=== PATIENT | female | born 1990 | race Caucasian/White ===

== ENCOUNTER 2023-06-11 21:01 | Emergency (ER) | payer OTHER, SELFPAY ==
[2023-06-11 21:08] VITALS: BP 151/104
[2023-06-11 21:11] VITALS: BP 151/104
[2023-06-11 21:34] VITALS: BMI 34.3
[2023-06-11] MEDS: BENADRYL 25 MG IV (21:50)
[2023-06-11] MEDS: DILAUDID 2 MG IV (21:50)
--- NOTE | 2023-06-11 22:00 | ED.GENMED ---
History of Present Illness
General
Chief Complaint: Allergic Reaction
Source: patient and family
Time Seen by Provider: 06/11/23 21:57
Travel History
Have you had any contact with someone who has COVID-19?: No
Do you have any symptoms of coronavirus? Fever > 100 degrees, chills, cough, shortness of breath, sore throat, loss of taste or smell, muscle aches, or headache?: No
History of Present Illness
History of Present Illness:
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 Patient has been to the emergency room several times for similar episodes. She is cared for by a
'mast cell' specialist at [facility]. She arrives with a protocol created by her specialist to follow during these periods of exacerbation. Prior to coming to the hospital the patient had taken 2 mg of lorazepam through her GJ tube, she had also
received 2 EpiPen injections.
Past History
Past History
ED Past Medical History: Asthma, GERD, Hypercholesterolemia, Psychiatric (Anxiety), Other (Mast Cell activation Syndrome, neurocardiogenic syncope, Deana Danlos, narcolepsy, dystonia, sleep apnea, chronic vertigo, chronic daily headache, raynauds,
RLS, IBS) and Other (Osteoporosis)
ED Past Surgical History: Tonsilectomy and Urological (kidney biopsy)
Social History
Tobacco: Non-smoker
Alcohol: None
Drug: None
Personal: Single
Living: with family
Employment: Employed
Family History
Family History: Other (Noncontributory); Negative Sudden
Phy Exam
Physical Exam
Physical Exam:
General: Chronically ill-appearing 32-year-old with what appears to be carpopedal spasm and coughing.
Vitals: Tachycardic
Head: Atraumatic
Eyes: Pupils equal, EOMI
Throat: Airway intact, noisy inspiratory effort which sounds to be more likely to be paradoxical false vocal cord movement
Neck: Trachea midline
Lungs: Clear and equal b/l
Heart: Regular rate, no murmurs
Abd: Soft, Nontender, feeding tube in place no pulsatile mass
Neuro: Initially appeared to have carpopedal spasm. Normal neurologic exam on reevaluation after symptoms have improved
Skin: Warm, dry, no rash
Extremities: pulses equal b/l, no edema
Course
Orders/Labs/Results
Orders:
Orders
06/11/23 21:15
EKG [Electrocardiogram (*1)] Urgent
Reason for Study: Tachycardia
EKG- Treatment ONCE
06/11/23 21:37
Lorazepam [Ativan] 2 mg .ROUTE .STK-MED ONE
06/11/23 21:41
Diphenhydramine [Benadryl] 50 mg .ROUTE .STK-MED ONE
HYDROmorphone [Dilaudid] 2 mg .ROUTE .STK-MED ONE
06/11/23 21:50
HYDROmorphone [Dilaudid] 2 mg IV NOW STA
Lorazepam [Ativan] 2 mg IV NOW STA
06/11/23 21:58
Famotidine [Pepcid] 40 mg IV NOW STA
Lactated Ringers [Lr] 500 ml IV BOLUS
MethylPREDNISolone PF [Solu-Medrol Pf] 40 mg IV NOW STA
Ondansetron Injectable [Zofran] 4 mg IV NOW STA
06/11/23 22:21
Diphenhydramine [Benadryl] 25 mg IV NOW STA
06/11/23 22:26
Chest X-ray Portable [CR Chest Portable - 1 View] Urgent
Comment:
Reason For Exam: picc placement
Reason Study Needs to be Portable: Unable to Transport
06/12/23 00:11
Lorazepam [Ativan] 2 mg .ROUTE .STK-MED ONE
Lorazepam [Ativan] 2 mg IV NOW STA
06/12/23 00:13
Diphenhydramine [Benadryl] 25 mg IV NOW STA
06/12/23 00:16
Albuterol Nebs [Ventolin Nebules] 2.5 mg .ROUTE .STK-MED ONE
06/12/23 00:17
Albuterol Nebs [Ventolin Nebules] 2.5 mg INH R NOW STA
06/12/23 00:42
HYDROmorphone [Dilaudid] 2 mg .ROUTE .STK-MED ONE
HYDROmorphone [Dilaudid] 2 mg IV NOW STA
06/12/23 00:43
HYDROmorphone [Dilaudid] 2 mg IV NOW STA
Vital Signs
Initial and Last Documented VS:
Initial Vital Signs
Temp Pulse Resp BP Pulse Ox
99.7 F 138 22 151/104 98
06/11/23 21:08 06/11/23 21:08 06/11/23 21:08 06/11/23 21:08 06/11/23 21:08
Last Documented Vital Signs
Temp Pulse Resp BP Pulse Ox
99.7 F 107 14 130/89 97
06/11/23 21:08 06/12/23 02:30 06/12/23 02:30 06/12/23 02:00 06/11/23 21:47
MDM/Problems Addressed
Differential Diagnosis Includes:
Mast cell activation syndrome, 'dystonia', paradoxical false vocal cord movement
MDM/Problems Addressed:
Patient presents with an episode of noisy breathing, carpopedal spasm, tachycardia which is similar to several previous visits. Patient's symptoms resolved with IV Ativan, Dilaudid and Benadryl. These medications were given based upon a document
provided by the patient from her mast cell doctor
Patient had significant improvement with treatment here. She had a slight recurrence of symptoms prompting another round of meds but then stabilized. She states she feels well enough to go home. She knows her disease well and I trust her opinion
on when she can go home and when she requires hospitalization. Prescription for epi-pen sent to pharmacy. Patient requested we give her EpiPen's to go but the hospital does not stock them. This was verified with pharmacy
Acute Exacerbation and/or Progression of Chronic Illness: Other (mast cell activation syndrome)
*Pulse Oximetry
Patient hypoxic: no (on her chronic oxygen)
*EKG
Interpreted by ED Provider?: Yes
Interpretation: abnormal
Comparison EKG: no changes
Heart Rate: 102
Rate: tachycardiac
Rhythm: sinus tachycardia
QRS Pattern: normal QRS
Ischemia: no ischemia
*Paralegal Instructor Interpretation
Rate: tachycardiac
Rhythm: sinus tachycardia
*Critical Care Note
Total Time (30-74mins, 75-104mins- exclusive of procedures): Not Applicable
Patient Management
Social determinants of health affecting care: Strong social support
Escalation/DeEscalation of care consider admission/obs:
considered hospitalization but pt states she feels well enough to go home. She expressed the understanding that, now that she is feeling better, there is not much they would do if she was transferred to [facility] (which is what the plan would be if
she requires admission).
ED Attending Note
-
Portions of this chart may have been created with voice recognition software.� Occasional wrong word or��sound alike� substitutions may have occurred due to the inherent limitations of voice recognition software.
Discharge Plan
Departure
Patient Disposition: Home (Routine Discharge)
Date of Disposition: 06/11/23
Time of Disposition: 23:15
Patient with high blood pressure during this ER visit?: No
Condition: Good
Discharge Problem:
Dystonia, POTS (postural orthostatic tachycardia syndrome), Mast cell activation syndrome
Instructions: Dystonia
Prescriptions:
New
epinephrine [EpiPen 2-Memo] 0.3 mg/0.3 mL auto-injector
0.3 mg IM Q5-15M PRN (Reason: anaphylaxis) Qty: 2 0RF
No Action
propranolol 10 MG tablet
10 mg feeding tube TID@0600,1400,2200
cetirizine 10 MG tablet
10 mg feeding tube BID@1800,2200
ketotifen fumarate [Zaditor] 1 DROP drops
1 drp BOTH EYES TID
Flonase Sensimist 5.9 ML spray,suspension
2 spray intranasal DAILY@1000
rabeprazole [AcipHex] 20 MG tablet,delayed release (DR/EC)
20 mg PO BID@0930,1730
prednisone 5 MG tablet
10 mg feeding tube BID@1000,1800
diphenhydramine HCl 50 MG/ML solution
25 mg IV Q3HPRN PRN (Reason: mcas reaction/anaphylaxis/dystonia)
budesonide 0.5 MG/2 ML suspension for nebulization
0.5 mg inhalation R BID@999,1999
etonogestrel-ethinyl estradiol [NuvaRing] 1 VAG.RING ring
1 vag.ring VAG MONTHLY
Rx Instructions:
ON THE 29TH DAY OF THE MONTH
famotidine (PF) 20 MG/2 ML solution
40 mg IV Q12H@1000,2200
diphenhydramine HCl 50 MG/ML solution
0 mg IV .CONTINUOUS
Patient Comments:
Per patient she has a benadryl pump 15mg/hr continuously
Rx Instructions:
320ML bag daily, 13MG/HR CONTINUOUS
Solu-Medrol (PF) 40 MG/ML recon soln
60 mg IV PRN PRN (Reason: anaphylaxis, or pre procedure)
cromolyn 20 MG/ML concentrate
200 mg PO .ACHS SEE TIMES BELO
Rx Instructions:
@0930, 1330, 1730, 2130
ferrous sulfate [FeroSul] 325 MG tablet
325 mg PO HS
Nurtec ODT 75 MG tablet,disintegrating
75 mg PO DAILYPRN PRN (Reason: migraine)
thiamine HCl (vitamin B1) 100 mg Tablet
100 mg PO DAILY@1000
acetaminophen 650 mg tablet extended release
1,300 mg PO BID@1000,1800
baclofen 10 mg Tablet
10 mg PO TID@0600,1400,2200
lorazepam 2 mg/mL concentrate
2 mg sublingual Q6H PRN (Reason: dystonia)
Patient Comments:
06/11/2023: last filled 06/06/23, 60ml for 12 days from [id number]
simethicone 80 mg Tablet,Chewable
80 mg PO DAILY
insulin lispro 100 unit/mL insulin pen
0 - 5 sliding scale dose SC AC
Rx Instructions:
Sliding Scale: 70-140= 0, 141-200= 1; 201-250= 2; 251-300= 3; 301-350= 4; >351= 5
imatinib [Gleevec] 100 mg Tablet
300 mg PO DAILY@1400
cholecalciferol (vitamin D3) 50 mcg (2,000 unit) Tablet
50 mcg PO DAILY@1000
fexofenadine 180 mg Tablet
180 mg PO BID@1000,1400
ondansetron 4 mg Tablet,Disintegrating
4 mg PO Q8HPRN PRN (Reason: mild nausea)
carbidopa-levodopa [Sinemet] 25-100 mg Tablet
2 tab feeding tube BID@1400,1800
Rx Instructions:
2pm, 6pm
carbidopa-levodopa [Sinemet] 25-100 mg Tablet
1.5 tab feeding tube BID@0600,1000
Rx Instructions:
6am, 10am
ascorbic acid (vitamin C) [Vitamin C] 1,000 mg Tablet
1,200 mg PO DAILY
epinephrine 0.3 mg/0.3 mL auto-injector
0.3 mg IM PRN PRN (Reason: anaphylaxis)
ondansetron HCl (PF) 4 mg/2 mL Solution
4 mg IV Q8H PRN (Reason: severe nausea/vomiting)
Salt Stick
2 cap feeding tube PRN PRN (Reason: POTS)
Rx Instructions:
500mg Sodium and 100mg Potassium
Nss
1,000 ml IV DAILY
Nss
1,000 ml IV DAILY PRN (Reason: one extra bag daily )
albuterol sulfate 2.5 mg /3 mL (0.083 %) solution for nebulization
2.5 mg inhalation R Q6 PRN (Reason: anaphylaxis)
hydromorphone 8 mg tablet
8 mg PO Q3H PRN (Reason: severe pain)
Patient Comments:
06/11/2023: last filled 05/16/23, 136 tabs for 34 days from [facility]
lorazepam 2 mg/mL concentrate
1 mg sublingual QID@00,06,12,18
simethicone 80 mg Tablet,Chewable
80 mg PO HS PRN (Reason: gas)
enoxaparin 100 mg/mL syringe
90 mg SC BID@1000,2200
buprenorphine HCl 2 mg tablet, sublingual
2 mg SUBLINGUAL QID@00,06,12,18
Patient Comments:
06/11/2023: last filled 05/16/23, 120 tabs for 30 days from [id number]
insulin glargine [Lantus Solostar U-100 Insulin] 100 unit/mL (3 mL) insulin pen
15 unit SC DAILY
calcium citrate-vitamin D3 200 mg-6.25 mcg (250 unit) Tablet
2 tab PO BID@1000,1800
Patient Comments:
06/11/2023: 400mg Calcium, 12.5mcg Vitamin D
Referrals:
Ethan Villanueva MD [Family Provider] -
Interventions
Interventions:
*Risk Screen - Suicide Last Done: 06/11/23 21:08
*General Assessment Last Done: 06/11/23 21:08
*Neglect/Abuse Screening Last Done: 06/11/23 21:08
ED- Fall Risk Assessment Last Done: 06/12/23 02:40
*ED COVID-19 Vaccine History Last Done: 06/11/23 21:08
*Nursing Disposition Last Done: 06/12/23 02:40
ED- Cardiac Assessment Last Done: 06/12/23 00:10
ED- Pulmonary Assessment Last Done: 06/12/23 00:10
ED-Skin Assessment Last Done: 06/12/23 00:10
Discharge Date and Time
Discharge Date/Time: 06/12/23 02:40
[2023-06-11 22:01] VITALS: BP 125/93
[2023-06-11] MEDS: SOLU-MEDROL PF 40 MG IV (22:11)
[2023-06-11] MEDS: ZOFRAN 4 MG IV (22:11)
[2023-06-11] MEDS: LR 500 IV (22:11)
[2023-06-11] MEDS: PEPCID 40 MG IV (22:11)
[2023-06-11] MEDS: ATIVAN 2 MG IV (22:24)
[2023-06-11 23:00] VITALS: BP 128/85
[2023-06-12] MEDS: ATIVAN 2 MG IV (00:12)
[2023-06-12] MEDS: BENADRYL 25 MG IV (00:14)
[2023-06-12] MEDS: VENTOLIN NEBULES 2.5 MG INH (00:17)
[2023-06-12 00:35] VITALS: BP 132/106
[2023-06-12] MEDS: DILAUDID 2 MG IV (00:44)
[2023-06-12 01:00] VITALS: BP 123/78
[2023-06-12 02:00] VITALS: BP 130/89
== END 2023-06-12 02:40 | disposition home or self-care (01) ==
LOC: EMR 21:01
PROVIDERS: EMERGENCY PHYSICIAN Emergency Medicine; FAMILY PHYSICIAN Internal Medicine Hematology & Oncology
DX: G24.9 Dystonia, unspecified (principal); G90.A Postural orthostatic tachycardia syndrome [POTS]; D89.40 Mast cell activation, unspecified
CPT/HCPCS: 99284; 96374; 96375 ×5; 96376 ×3; 94640; 71045; 93005

== ENCOUNTER 2023-06-20 23:55 | Inpatient (IN) | payer OTHER, SELFPAY ==
[2023-06-20 17:33] VITALS: BP 140/104
--- NOTE | 2023-06-20 17:53 | ED.GENMED ---
History of Present Illness
<Mk Spears, DO - Last Filed: 06/20/23 20:57>
General
Chief Complaint: Allergic Reaction
Source: patient
Exam Limitations: none
Time Seen by Provider: 06/20/23 17:45
History of Present Illness
History of Present Illness:
See MDM
Past History
<Mk Spears, DO - Last Filed: 06/20/23 20:57>
Past History
ED Past Medical History: Asthma, GERD, Hypercholesterolemia, Psychiatric (Anxiety), Other (Mast Cell activation Syndrome, neurocardiogenic syncope, Deana Danlos, narcolepsy, dystonia, sleep apnea, chronic vertigo, chronic daily headache, raynauds,
RLS, IBS) and Other (Osteoporosis)
ED Past Surgical History: Tonsilectomy and Urological (kidney biopsy)
Social History
Tobacco: Non-smoker
Alcohol: None
Drug: None
Personal: Single
Living: with family
Employment: Employed
Family History
Family History: Other (Noncontributory); Negative Sudden
Phy Exam
<Mk Spears, DO - Last Filed: 06/20/23 20:57>
Physical Exam
Physical Exam:
See MDM
Course
<Mk Spears, DO - Last Filed: 06/20/23 20:57>
Orders/Labs/Results
Orders:
Orders
06/20/23 17:28
CXR [CR Chest Portable - 1 View] Urgent
Comment:
Reason For Exam: picc line check
Reason Study Needs to be Portable: Unable to Transport
06/20/23 17:50
0.9% Sodium Chloride 1000 ml [Nss] 1,000 ml IV BOLUS
Diphenhydramine [Benadryl] 25 mg IV NOW STA
HYDROmorphone [Dilaudid] 1 mg IV NOW STA
06/20/23 17:56
Complete Blood Count/With Diff Urgent
Comprehensive Metabolic Panel Urgent
06/20/23 18:43
Famotidine [Pepcid] 40 mg IV NOW STA
MethylPREDNISolone PF [Solu-Medrol Pf] 50 mg IV NOW STA
06/20/23 19:27
Diphenhydramine [Benadryl] 50 mg IV NOW STA
Ipratropium/Albuterol Sulfate [Duoneb] 3 ml INH R NOW ONE
Lorazepam [Ativan] 1 mg IV NOW STA
06/20/23 19:46
Ondansetron Injectable [Zofran] 4 mg IV NOW STA
06/20/23 20:14
Diphenhydramine [Benadryl] 50 mg IV Q4HPRN PRN
Lorazepam [Ativan] 1 mg IV Q4HPRN PRN
06/20/23 20:19
Ipratropium/Albuterol Sulfate [Duoneb] 3 ml INH R Q4HPRN PRN
06/21/23 10:00
Famotidine [Pepcid] 40 mg IV Q12
MethylPREDNISolone PF [Solu-Medrol Pf] 50 mg IV Q12H
Abnormal Lab Results
06/20/23
17:56
WBC 19.1 H 10^3/uL
(4.8-10.8)
RBC 3.93 L 10^6/uL
(4.20-5.40)
MCV 100.5 H fL
(81.0-99.0)
MCH 34.6 H pg
(27.0-31.0)
RDW 15.0 H %
(11.5-14.5)
Abs Immat Gran (auto) 1.4 H 10^3/uL
(0-0.05)
Absolute Neuts (auto) 13.0 H 10^3/uL
(1.4-6.5)
Absolute Monos (auto) 1.5 H 10^3/uL
(0.1-0.6)
Immature Gran % 7.5 H %
(0-0.5)
Lymphocytes % 16.1 L %
(20.5-51.1)
Sodium 134 L mmol/L
(135-145)
Carbon Dioxide 20 L mmol/L
(22-30)
Creatinine 0.5 L mg/dL
(0.6-1.0)
Glucose 224 H mg/dl
(70-99)
06/20/23 17:56
06/20/23 17:56
Vital Signs
Initial and Last Documented VS:
Initial Vital Signs
Pulse Resp
124 24
06/20/23 17:28 06/20/23 17:28
Last Documented Vital Signs
Temp Pulse Resp BP Pulse Ox
98.1 F 105 14 140/104 98
06/20/23 20:00 06/20/23 20:45 06/20/23 20:45 06/20/23 18:00 06/20/23 20:45
<Mitul Mcgill, DO - Last Filed: 06/20/23 23:06>
Orders/Labs/Results
Orders:
Orders
06/20/23 17:28
CXR [CR Chest Portable - 1 View] Urgent
Comment:
Reason For Exam: picc line check
Reason Study Needs to be Portable: Unable to Transport
06/20/23 17:50
0.9% Sodium Chloride 1000 ml [Nss] 1,000 ml IV BOLUS
Diphenhydramine [Benadryl] 25 mg IV NOW STA
HYDROmorphone [Dilaudid] 1 mg IV NOW STA
06/20/23 17:56
Complete Blood Count/With Diff Urgent
Comprehensive Metabolic Panel Urgent
06/20/23 18:43
Famotidine [Pepcid] 40 mg IV NOW STA
MethylPREDNISolone PF [Solu-Medrol Pf] 50 mg IV NOW STA
06/20/23 19:27
Diphenhydramine [Benadryl] 50 mg IV NOW STA
Ipratropium/Albuterol Sulfate [Duoneb] 3 ml INH R NOW ONE
Lorazepam [Ativan] 1 mg IV NOW STA
06/20/23 19:46
Ondansetron Injectable [Zofran] 4 mg IV NOW STA
06/20/23 20:14
Diphenhydramine [Benadryl] 50 mg IV Q4HPRN PRN
Lorazepam [Ativan] 1 mg IV Q4HPRN PRN
06/20/23 20:19
Ipratropium/Albuterol Sulfate [Duoneb] 3 ml INH R Q4HPRN PRN
06/21/23 10:00
Famotidine [Pepcid] 40 mg IV Q12
MethylPREDNISolone PF [Solu-Medrol Pf] 50 mg IV Q12H
Abnormal Lab Results
06/20/23
17:56
WBC 19.1 H 10^3/uL
(4.8-10.8)
RBC 3.93 L 10^6/uL
(4.20-5.40)
MCV 100.5 H fL
(81.0-99.0)
MCH 34.6 H pg
(27.0-31.0)
RDW 15.0 H %
(11.5-14.5)
Abs Immat Gran (auto) 1.4 H 10^3/uL
(0-0.05)
Absolute Neuts (auto) 13.0 H 10^3/uL
(1.4-6.5)
Absolute Monos (auto) 1.5 H 10^3/uL
(0.1-0.6)
Immature Gran % 7.5 H %
(0-0.5)
Lymphocytes % 16.1 L %
(20.5-51.1)
Sodium 134 L mmol/L
(135-145)
Carbon Dioxide 20 L mmol/L
(22-30)
Creatinine 0.5 L mg/dL
(0.6-1.0)
Glucose 224 H mg/dl
(70-99)
06/20/23 17:56
06/20/23 17:56
Vital Signs
Initial and Last Documented VS:
Initial Vital Signs
Pulse Resp
124 24
06/20/23 17:28 06/20/23 17:28
Last Documented Vital Signs
Temp Pulse Resp BP Pulse Ox
98.1 F 105 14 140/104 98
06/20/23 20:00 06/20/23 20:45 06/20/23 20:45 06/20/23 18:00 06/20/23 20:45
<Mk Spears, DO - Last Filed: 06/20/23 20:57>
MDM/Problems Addressed
Differential Diagnosis Includes:
HPI and MDM Narrative:
32-year-old female presenting to the emergency department with allergic reaction. Patient states she has mast cell activation syndrome. She states that she is having a flareup and required a total of 4 IM injections of epinephrine today. She was
told to go to the hospital if she ever required more than 2. Patient states her silverware washer Dr. Villanueva is requesting transfer to [facility].
Patient is unsure if this is related to recent decrease in Solu-Medrol. She was started on 60 mg IV Solu-Medrol twice daily. He was recently changed to 50 and then 40 last night.
Physical exam
General: Mildly uncomfortable,
HEENT: protecting airway
Neck: appears supple
CV: No evidence of cyanosis. Tachycardic
Resp: No accessory muscle use
Abd: Non-distended
Extremities: No deformities
Neuro: alert. Intermittent tremors
Psych: Mildly anxious
Skin: Intact
Problems Addressed including Acute and Chronic Conditions affecting care:
1. Mast cell activation syndrome
Acuity: acute
Prognosis: stable
Details: Will discuss care with [facility].
Updates
Patient given an increased dose of Solu-Medrol 50 mg. Will give her routine 40 mg IV famotidine as well
7:28 PM patient developing shortness of breath and wheezing. Will give Ativan, Benadryl and DuoNeb
8:30 PM Case discussed with [place] email campaign manager Dr. Jane who accepted patient but states there will likely not be an ICU bed for 24 hours. She suggested admitting to [facility]
8:45 PM Case discussed with [facility] email campaign manager Dr. Ciro Gómze who accepted patient at the ICU and ultimately will be transferred to [facility]
Differential Diagnosis (but not limited to): Allergic reaction, mast cell activation syndrome
Testing considered: Chest x-ray
Drug therapy (if applicable): OTC meds, please see d/c instruction regarding Rx drugs
Amount and/or Complexity of Data Reviewed
Clinical info obtained from: Patient and mother
External data reviewed: N/A
Labs I independently reviewed (but not limited to): Leukocytosis and hyperglycemia likely related to steroids
Radiology: N/A
Pulse Ox: not hypoxic
EKG independently reviewed: N/A
Car Parker: Sinus rhythm
Critical Care: The high probability of a clinically significant, sudden or life threatening deterioration of the cardiopulmonary system(s) required my full and direct attention, intervention and personal management. The aggregate critical care time
was 33 minutes. This time is in addition to time spent performing reported procedures but includes the following:
[x] Data Review and interpretation
[x] Patient assessment and monitoring of vital signs
[x] Documentation
[x] Medication orders and management
Risk of Complication:
Social Determinants of health: Good social support
Discussed with other providers: Weight Checker
Escalation of Care includes Admit/Obs: Given her uncontrolled Pau activation syndrome, will transfer
Occasional wrong word or 'sound a like' substitutions may have occurred due to the inherent limitations of voice recognition software. Read the chart carefully and recognize, using context, where substitutions have occurred.
<Mk Spears, DO - Last Filed: 06/20/23 20:57>
*Critical Care Note
Total Time (30-74mins, 75-104mins- exclusive of procedures): 33 min
<Mitul Mcgill, DO - Last Filed: 06/20/23 23:06>
Update Note
Update Note:
Received a call from [facility] and they are unable to take the patient until tomorrow. Patient will be admitted here.
ED Attending Note
<Mk Spears, DO - Last Filed: 06/20/23 20:57>
-
Portions of this chart may have been created with voice recognition software.� Occasional wrong word or��sound alike� substitutions may have occurred due to the inherent limitations of voice recognition software.
Discharge Plan
Departure
Patient Disposition: Home (Routine Discharge)
Date of Disposition: 06/20/23
Time of Disposition: 20:56
Admit to: ICU
Admit to doctor: Hospitalist
Patient with high blood pressure during this ER visit?: Yes
Condition: Serious
Covid-19: Not Applicable
Discharge Problem:
Mast cell activation syndrome
Prescriptions:
No Action
propranolol 10 MG tablet
10 mg feeding tube TID@0600,1400,2200
cetirizine 10 MG tablet
10 mg feeding tube BID@1800,2200
ketotifen fumarate [Zaditor] 1 DROP drops
1 drp BOTH EYES TID
Flonase Sensimist 5.9 ML spray,suspension
2 spray intranasal DAILY@1000
rabeprazole [AcipHex] 20 MG tablet,delayed release (DR/EC)
20 mg PO BID@0930,1730
prednisone 5 MG tablet
10 mg feeding tube BID@1000,1800
diphenhydramine HCl 50 MG/ML solution
25 mg IV Q3HPRN PRN (Reason: mcas reaction/anaphylaxis/dystonia)
budesonide 0.5 MG/2 ML suspension for nebulization
0.5 mg inhalation R BID@999,1999
etonogestrel-ethinyl estradiol [NuvaRing] 1 VAG.RING ring
1 vag.ring VAG MONTHLY
Rx Instructions:
ON THE 29TH DAY OF THE MONTH
famotidine (PF) 20 MG/2 ML solution
40 mg IV Q12H@1000,2200
diphenhydramine HCl 50 MG/ML solution
0 mg IV .CONTINUOUS
Patient Comments:
Per patient she has a benadryl pump 15mg/hr continuously
Rx Instructions:
320ML bag daily, 13MG/HR CONTINUOUS
Solu-Medrol (PF) 40 MG/ML recon soln
60 mg IV PRN PRN (Reason: anaphylaxis, or pre procedure)
cromolyn 20 MG/ML concentrate
200 mg PO .ACHS SEE TIMES BELO
Rx Instructions:
@0930, 1330, 1730, 0
ferrous sulfate [FeroSul] 325 MG tablet
325 mg PO HS
Nurtec ODT 75 MG tablet,disintegrating
75 mg PO DAILYPRN PRN (Reason: migraine)
thiamine HCl (vitamin B1) 100 mg Tablet
100 mg PO DAILY@1000
acetaminophen 650 mg tablet extended release
1,300 mg PO BID@1000,1800
baclofen 10 mg Tablet
10 mg PO TID@0600,1400,2200
lorazepam 2 mg/mL concentrate
2 mg sublingual Q6H PRN (Reason: dystonia)
Patient Comments:
06/11/2023: last filled 06/06/23, 60ml for 12 days from [id number]
simethicone 80 mg Tablet,Chewable
80 mg PO DAILY
insulin lispro 100 unit/mL insulin pen
0 - 5 sliding scale dose SC AC
Rx Instructions:
Sliding Scale: 70-140= 0, 141-200= 1; 201-250= 2; 251-300= 3; 301-350= 4; >351= 5
imatinib [Gleevec] 100 mg Tablet
300 mg PO DAILY@1400
cholecalciferol (vitamin D3) 50 mcg (2,000 unit) Tablet
50 mcg PO DAILY@1000
fexofenadine 180 mg Tablet
180 mg PO BID@1000,1400
ondansetron 4 mg Tablet,Disintegrating
4 mg PO Q8HPRN PRN (Reason: mild nausea)
carbidopa-levodopa [Sinemet] 25-100 mg Tablet
2 tab feeding tube BID@1400,1800
Rx Instructions:
2pm, 6pm
carbidopa-levodopa [Sinemet] 25-100 mg Tablet
1.5 tab feeding tube BID@0600,1000
Rx Instructions:
6am, 10am
ascorbic acid (vitamin C) [Vitamin C] 1,000 mg Tablet
1,200 mg PO DAILY
epinephrine 0.3 mg/0.3 mL auto-injector
0.3 mg IM PRN PRN (Reason: anaphylaxis)
ondansetron HCl (PF) 4 mg/2 mL Solution
4 mg IV Q8H PRN (Reason: severe nausea/vomiting)
Salt Stick
2 cap feeding tube PRN PRN (Reason: POTS)
Rx Instructions:
500mg Sodium and 100mg Potassium
Nss
1,000 ml IV DAILY
Nss
1,000 ml IV DAILY PRN (Reason: one extra bag daily )
albuterol sulfate 2.5 mg /3 mL (0.083 %) solution for nebulization
2.5 mg inhalation R Q6 PRN (Reason: anaphylaxis)
hydromorphone 8 mg tablet
8 mg PO Q3H PRN (Reason: severe pain)
Patient Comments:
06/11/2023: last filled 05/16/23, 136 tabs for 34 days from [facility]
lorazepam 2 mg/mL concentrate
1 mg sublingual QID@00,06,12,18
simethicone 80 mg Tablet,Chewable
80 mg PO HS PRN (Reason: gas)
enoxaparin 100 mg/mL syringe
90 mg SC BID@1000,2200
buprenorphine HCl 2 mg tablet, sublingual
2 mg SUBLINGUAL QID@00,06,12,18
Patient Comments:
06/11/2023: last filled 05/16/23, 120 tabs for 30 days from [id number]
insulin glargine [Lantus Solostar U-100 Insulin] 100 unit/mL (3 mL) insulin pen
15 unit SC DAILY
calcium citrate-vitamin D3 200 mg-6.25 mcg (250 unit) Tablet
2 tab PO BID@1000,1800
Patient Comments:
06/11/2023: 400mg Calcium, 12.5mcg Vitamin D
epinephrine [EpiPen 2-Memo] 0.3 mg/0.3 mL auto-injector
0.3 mg IM Q5-15M PRN (Reason: anaphylaxis) Qty: 2 0RF
Referrals:
Shannan Mendoza DO [Family Provider] -
Hospital Transfer
Other hospital: [facility]
I certify that the patient requires transfer: Yes
Discussed case with accepting physician: Dr. Souza
Reason for transfer: higher level of care
Interventions
Interventions:
*Risk Screen - Suicide Last Done: 06/20/23 18:17
*General Assessment Last Done: 06/20/23 18:00
*Neglect/Abuse Screening Last Done: 06/20/23 18:00
ED- Fall Risk Assessment Last Done: 06/20/23 19:30
*ED COVID-19 Vaccine History Last Done: 06/20/23 21:21
ED- Cardiac Assessment Last Done: 06/20/23 19:30
ED- Pulmonary Assessment Last Done: 06/20/23 19:30
ED-Skin Assessment Last Done: 06/20/23 19:30
[2023-06-20 18:00] VITALS: BP 140/104
[2023-06-20] MEDS: BENADRYL 25 MG IV (18:00)
[2023-06-20] MEDS: DILAUDID 1 MG IV (18:01)
[2023-06-20 18:02] LABS: % Basophils 0.5 % (0-2); % Immature Granulocytes 7.5 % (0-0.5); % Lymphocytes 16.1 % (20.5-51.1); % Monocytes 7.7 % (1.7-9.3); % Neutrophils 68.2 % (42.2-75.2); Absolute Basophils 0.1 10^3/uL (0-0.2); Absolute Immature Granulocytes 1.4 10^3/uL (0-0.05); Absolute Lymphocytes 3.1 10^3/uL (1.2-3.4); Absolute Monocytes 1.5 10^3/uL (0.1-0.6); Hematocrit 39.5 % (37.0-47.0); Hemoglobin 13.6 g/dL (12.0-16.0); Mean Corp Hgb Conc. 34.4 g/dL (33.0-37.0); Mean Corpuscular Hgb 34.6 pg (27.0-31.0); Mean Corpuscular Volume 100.5 fL (81.0-99.0); Mean Platelet Volume 9.4 fL (7.4-10.4); Nucleated Red Blood Cells % 0.1 %; Platelet Count 364 10^3/uL (130-400); Red Blood Cell Count 3.93 10^6/uL (4.20-5.40); White Blood Cell Count 19.1 10^3/uL (4.8-10.8)
[2023-06-20] MEDS: NSS 1000 IV (18:05)
[2023-06-20 18:22] LABS: ALT (SGPT) 23 U/L (0-35); AST (SGOT) 26 U/L (14-36); Albumin 4.3 g/dl (3.5-5.0); Alkaline Phosphatase 74 U/L (38-126); Blood Urea Nitrogen 12 mg/dl (7-17); Calcium 9.2 mg/dl (8.4-10.2); Carbon Dioxide 20 mmol/L (22-30); Chloride 103 mmol/L (98-107); Glucose 224 mg/dl (70-99); Potassium 4.9 mmol/L (3.5-5.1); Sodium 134 mmol/L (135-145); Total Bilirubin 0.5 mg/dl (0.2-1.3); Total Protein 6.9 g/dl (6.3-8.2); eGFR > 60.00
[2023-06-20] MEDS: PEPCID 40 MG IV (19:21)
[2023-06-20] MEDS: SOLU-MEDROL PF 50 MG IV (19:22)
[2023-06-20] MEDS: ATIVAN 1 MG IV (19:35)
[2023-06-20] MEDS: BENADRYL 50 MG IV (19:35)
[2023-06-20] MEDS: DUONEB 3 ML INH (19:36)
[2023-06-20] MEDS: ZOFRAN 4 MG IV (19:53)
[2023-06-20 20:51] VITALS: BMI 35.8
[2023-06-20 21:22] VITALS: BP 140/83
[2023-06-20 22:00] VITALS: BP 126/102
[2023-06-20 23:00] VITALS: BP 137/84
[2023-06-21] VITALS (17 sets, daily range): BP systolic 126–165; BP diastolic 76–114; BMI 33.1
--- NOTE | 2023-06-21 00:08 | HPS.HSE ---
Family Physician
-
Family Physician: Tari Mendoza,
Chief Complaint
-
mast cell
History of Present Illness
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
Syndrome, GERD, Migraine Headaches presenting with mast cell flare. Patient recently had a grandparent and she has been weaned off of her fentanyl patch which caused her to have a flareup. Her symptoms usually include dizziness,
headache, seizure-like activity, vomiting, shortness of breath and feeling like her throat is closing up. She has been taking epinephrine over the past few weeks. She required 4 IM injections of epinephrine today. She was told to go to the
hospital if you require more than 2. She has recently been treated with prednisone and was on 60 mg for this flare but has been weaning down to 40 mg last night.
Patient eats food orally and does not require tube feeds.
She is scheduled to have GJ tube replaced in a few days.
Her electronics utility worker Dr. Villanueva at [place] is requesting transfer to [facility].
Patient denies smoking alcohol or marijuana.
Medical History
Past Medical History
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
Syndrome, GERD, Migraine Headache)
Past Surgical History: Reports None
Social History
Tobacco: Non-smoker
Alcohol: None
Drug: None
Family History
Family History: Not pertinent
Allergies / Home Medications
Allergies reflects when Allergies were last updated in [employer].
Home Medications with original date entered in [employer]
Allergy/Medication List:
Allergies
Allergy/AdvReac Type Severity Reaction Status Date / Time
dog dander Allergy Unknown Verified 06/11/23 21:07
escitalopram [From Lexapro] Allergy Unknown Verified 06/11/23 21:07
gabapentin Allergy Unknown Verified 06/11/23 21:07
gluten Allergy Unknown Verified 06/11/23 21:07
grass pollen Allergy Unknown Verified 06/11/23 21:07
house dust Allergy Unknown Verified 06/11/23 21:07
ibuprofen Allergy 'not Verified 06/11/23 21:07
supposed
to take
d/t
proteinuria'
lactose Allergy Nausea / Verified 06/11/23 21:07
Vomiting
lamotrigine [From Lamictal] Allergy Unknown Verified 06/11/23 21:07
mold Allergy Unknown Verified 06/11/23 21:07
montelukast [From Singulair] Allergy Unknown Verified 06/11/23 21:07
nortriptyline Allergy Tachycardia Verified 06/11/23 21:07
peanut Allergy Anaphylaxis Verified 06/11/23 21:07
soy Allergy Unknown Verified 06/11/23 21:07
topiramate [From Topamax] Allergy Unknown Verified 06/11/23 21:07
tree and shrub pollen Allergy Unknown Verified 06/11/23 21:07
weed pollen Allergy Unknown Verified 06/11/23 21:07
Home Medications
propranolol 10 mg tablet 10 mg feeding tube TID@0600,1400,2200 Heart disease/condition 04/16/15
cetirizine 10 mg tablet 10 mg feeding tube BID@1800,2200 Allergies 11/03/20
fluticasone furoate 27.5 mcg/actuation nasal spray,suspension (Flonase Sensimist) 2 spray intranasal DAILY@1000 Allergies 11/03/20
ketotifen fumarate 0.025 % (0.035 %) eye drops (Zaditor) 1 drp BOTH EYES TID Eye condition 11/03/20
budesonide 0.5 mg/2 mL suspension for nebulization 0.5 mg inhalation R BID@1000,2000 Lung/breathing issues 09/27/21
diphenhydramine HCl 50 mg/mL injection solution 0 mg IV .CONTINUOUS Allergies 09/27/21
diphenhydramine HCl 50 mg/mL injection solution 25 mg IV Q3HPRN PRN mcas reaction/anaphylaxis/dystonia 09/27/21
etonogestrel 0.12 mg-ethinyl estradiol 0.015 mg/24 hr vaginal ring (NuvaRing) 1 vag.ring VAG MONTHLY Hormonal agent 09/27/21
famotidine (PF) 20 mg/2 mL intravenous solution 40 mg IV Q12H@1000,2200 Gastrointestinal issue 09/27/21
methylprednisolone sod suc(PF) 40 mg/mL solution for injection (Solu-Medrol (PF)) 60 mg IV PRN PRN anaphylaxis, or pre procedure 09/27/21
prednisone 5 mg tablet 10 mg feeding tube BID@1000,1800 Anti-inflammatory 09/27/21
rabeprazole 20 mg tablet,delayed release (AcipHex) 20 mg PO BID@0930,1730 Gastrointestinal issue 09/27/21
cromolyn 100 mg/5 mL oral concentrate 200 mg PO .ACHS SEE TIMES BELO FOOD ALLERGIES 10/02/21
ferrous sulfate 325 mg (65 mg iron) tablet (FeroSul) 325 mg PO HS Supplement 10/02/21
rimegepant 75 mg disintegrating tablet (Nurtec ODT) 75 mg PO DAILYPRN PRN migraine 10/02/21
acetaminophen 650 mg tablet,extended release 1,300 mg PO BID@1000,1800 Pain 05/13/22
baclofen 10 mg tablet 10 mg PO TID@0600,1400,2200 Muscle Spasms 05/13/22
cholecalciferol (vitamin D3) 50 mcg (2,000 unit) tablet 50 mcg PO DAILY@1000 Supplement 05/13/22
imatinib 100 mg tablet (Gleevec) 300 mg PO DAILY@1400 Cancer 05/13/22
insulin lispro 100 unit/mL subcutaneous pen 0 - 5 sliding scale dose SC AC Diabetes 05/13/22
lorazepam 2 mg/mL oral concentrate 2 mg sublingual Q6H PRN dystonia 05/13/22
simethicone 80 mg chewable tablet 80 mg PO DAILY 12/26/22
thiamine HCl (vitamin B1) 100 mg tablet 100 mg PO DAILY@1000 Supplement 05/13/22
fexofenadine 180 mg tablet 180 mg PO BID@1000,1400 Allergies 06/18/22
carbidopa 25 mg-levodopa 100 mg tablet (Sinemet) 1.5 tab feeding tube BID@0600,1000 DYSTONIA 08/17/22
carbidopa 25 mg-levodopa 100 mg tablet (Sinemet) 2 tab feeding tube BID@1400,1800 DYSTONIA 08/17/22
ondansetron 4 mg disintegrating tablet 4 mg PO Q8HPRN PRN mild nausea 08/17/22
Salt Stick 2 cap feeding tube PRN PRN POTS 02/11/23
ascorbic acid (vitamin C) 1,000 mg tablet (Vitamin C) 1,200 mg PO DAILY Supplement 02/11/23
epinephrine 0.3 mg/0.3 mL injection, auto-injector 0.3 mg IM PRN PRN anaphylaxis 02/11/23
ondansetron HCl (PF) 4 mg/2 mL injection solution 4 mg IV Q8H PRN severe nausea/vomiting 02/11/23
Nss 1,000 ml IV DAILY 10am 03/24/23
Nss 1,000 ml IV DAILY PRN one extra bag daily 03/24/23
albuterol sulfate 2.5 mg/3 mL (0.083 %) solution for nebulization 2.5 mg inhalation R Q6 PRN anaphylaxis 06/11/23
buprenorphine HCl 2 mg sublingual tablet 2 mg sublingual QID@00,06,12,18 06/11/23
calcium citrate 200 mg calcium-vitamin D3 6.25 mcg (250 unit) tablet 2 tab PO BID@1000,1800 06/11/23
enoxaparin 100 mg/mL subcutaneous syringe 90 mg SC BID@1000,2200 06/11/23
epinephrine 0.3 mg/0.3 mL injection, auto-injector (EpiPen 2-Memo) 0.3 mg (0.3 mL) IM Q5-15M PRN anaphylaxis #2 ea 06/11/23
hydromorphone 8 mg tablet 8 mg PO Q3H PRN severe pain 06/11/23
insulin glargine 100 unit/mL (3 mL) subcutaneous pen (Lantus Solostar U-100 Insulin) 15 unit SC DAILY 06/11/23
lorazepam 2 mg/mL oral concentrate 1 mg sublingual QID@00,06,12,18 06/11/23
simethicone 80 mg chewable tablet 80 mg PO HS PRN gas 06/11/23
Review of Systems
-
History Source: Patient
A 12 point ROS was completed and negative except as noted: No
Constitutional: Reports No Symptoms and See HPI
EENT: Reports See HPI
Respiratory: Reports See HPI
Cardiac: Reports See HPI
Abdomen/GI: Reports See HPI
: Reports See HPI
Musculoskeletal: Reports See HPI
Skin: Reports See HPI
Neurological: Reports See HPI
Endocrine: Reports See HPI
Hematologic/Lymphatic: Reports See HPI
Psych: Reports See HPI
Physical Exam
Vital Signs
Vital Signs
Temp Pulse Resp BP Pulse Ox
98.1 F 105 14 140/104 98
06/20/23 20:00 06/20/23 20:45 06/20/23 20:45 06/20/23 18:00 06/20/23 20:45
Physical Exam
General: Well Developed, Well Nourished and No Apparent Distress
HEENT: NormoCephalic, Moist mucous membranes and Atraumatic
Respiratory: Clear
Cardiac: S1/S2 and Regular Rhythm; No Murmur or Rub
GI: Soft, Non Tender, Non Distended and Normal Bowel Sounds; No Organomegaly
Rectal: Deferred by Provider
Musculoskeletal: No Clubbing, No Cyanosis and No Edema
Skin: No Rash
Neuro: Nonfocal/grossly intact
Laboratory Results
-
06/20/23 17:56
06/20/23 17:56
Laboratory Results
Total Bilirubin 0.5 mg/dl (0.2-1.3) 06/20/23 17:56
AST 26 U/L (14-36) 06/20/23 17:56
ALT 23 U/L (0-35) 06/20/23 17:56
Alkaline Phosphatase 74 U/L (38-126) 06/20/23 17:56
Data Reviewed
-
Lab Data: Labs Reviewed by me
Old Records: Reviewed
Impression/Plan
-
IMPRESSION:
PLAN:
Mast Cell Activation Syndrome flare
DOPA-Responsive Dystonia
Recurrent Anaphylaxis / Mast Cell Flare Episodes
-Patient feeling significantly better now after treatment with DuoNebs, Ativan/Benadryl, Dilaudid, methylprednisolone, Pepcid
- Admit to IMU for further evaluation and treatment.
- Continue maintenance medications including standing Ativan / Benadryl (pump), etc.
- Continue IV steroids for now, methylprednisolone 50 every 12, as needed DuoNebs
- Continue IV breakthrough medications for control of acute symptoms including IV Ativan, Benadryl, Pepcid, and Dilaudid.
- IV fluids
- Continue majority of usual outpatient medications including Gleevec, antihistamines, buprenorphine etc.
- Continue carbidopa-levodopa for dystonia
-Patient to be transferred to [place] ICU in the morning with eventual transfer for [place]
POTS disease
-Continue propranolol
Chronic Nausea / Esophageal Dysmotility
- Stable. Patient notes that she has been able to tolerate PO meals / some meds of late.
- Continue diet as tolerated.
- Continue G-tube to gravity for chronic nausea.
- Meds via J-tube.
- She is scheduled to have GJ tube exchange within a few days
Steroid-Induced DM-II
- Stable. Continue basal insulin Lantus 15 units and ISS
- Adjust regimen for adequate control - especially while on IV steroids.
Steroid-Induced Osteoporosis
Chronic Pain Syndrome secondary to the above
- IV Dilaudid PRN.
- Follow-up with usual system support specialist after discharge.
History of DVT / PE
DVT Prophylaxis
- Continue BID / therapeutic dose Lovenox
Migraine history
-Continue Nurtec
Code Status: Full
DVT ppx- lovenox
Regular diet
[2023-06-21] MEDS: DILAUDID 0.5 MG IV ×5 (00:49→16:31)
[2023-06-21] MEDS: ATIVAN 1 MG IV ×5 (00:49→21:27)
[2023-06-21] MEDS: DUONEB 3 ML INH ×4 (00:56→21:42)
[2023-06-21] MEDS: BENADRYL 25 MG IV ×5 (01:12→21:26)
[2023-06-21] MEDS: NSS 1000 IV ×3 (02:36→21:36)
--- NOTE | 2023-06-21 04:26 | PTCARENOTE ---
Assumed care of Pt from ED RN. Pt AAOx3, very talkative and appeared in good spirits. Pt arrived with neck brace and back/chest brace on. Transferred over to bed, Pt stating she can take the braces off when laying in bed. Pt made RN aware of
seriousness of having her PRN medication Benadryl,Ativan and Dilaudid more then Q4 PRN. Pt made RN aware of 0.5ml of Ativan she brought from home, 2 RN witnessed waste, this RN and Mimi Armenta. During shift Pt had episode of shaking with eyes
rolling back and harsh coughing while asking for her Benadryl and Ativan. Night MANAGER CASH made aware, now order for Benadryl added. After administering pt still having shaking and harsh cough Pt asked for Dilaudid for back pain along with a breathing
treatment. After administered of all Pt appears now to be resting comfortably in bed, emotional support given. Call sanchez within reach. Assessment care and vitals as documented.
[2023-06-21] MEDS: INDERAL 10 MG TUBE ×3 (06:04→21:09)
[2023-06-21] MEDS: LIORESAL 10 MG PO ×3 (06:04→21:09)
[2023-06-21] MEDS: SINEMET 25-100 1.5 TABLET TUBE ×2 (06:04→09:09)
[2023-06-21] MEDS: SOLU-MEDROL PF 50 MG IV ×2 (06:05→17:38)
[2023-06-21] MEDS: ATIVAN 1 MG SL ×3 (06:25→18:19)
[2023-06-21] MEDS: SUBUTEX 2 MG SL ×3 (06:26→18:19)
[2023-06-21 06:31] LABS: % Basophils 0.4 % (0-2); % Immature Granulocytes 5.9 % (0-0.5); % Lymphocytes 16.8 % (20.5-51.1); % Monocytes 8.8 % (1.7-9.3); % Neutrophils 68.1 % (42.2-75.2); Absolute Basophils 0.1 10^3/uL (0-0.2); Absolute Immature Granulocytes 0.9 10^3/uL (0-0.05); Absolute Lymphocytes 2.6 10^3/uL (1.2-3.4); Absolute Monocytes 1.4 10^3/uL (0.1-0.6); Absolute Neutrophils 10.7 10^3/uL (1.4-6.5); Hematocrit 38.6 % (37.0-47.0); Hemoglobin 12.5 g/dL (12.0-16.0); Mean Corp Hgb Conc. 32.4 g/dL (33.0-37.0); Mean Corpuscular Hgb 33.5 pg (27.0-31.0); Mean Corpuscular Volume 103.5 fL (81.0-99.0); Mean Platelet Volume 9.2 fL (7.4-10.4); Nucleated Red Blood Cells % 0 %; Platelet Count 257 10^3/uL (130-400); Red Blood Cell Count 3.73 10^6/uL (4.20-5.40); White Blood Cell Count 15.7 10^3/uL (4.8-10.8)
[2023-06-21 06:59] LABS: ALT (SGPT) 30 U/L (0-35); AST (SGOT) 25 U/L (14-36); Alkaline Phosphatase 60 U/L (38-126); Blood Urea Nitrogen 15 mg/dl (7-17); Calcium 9.3 mg/dl (8.4-10.2); Carbon Dioxide 31 mmol/L (22-30); Chloride 100 mmol/L (98-107); Estimated Creatinine Clearance > 125 ml/min; Glucose 136 mg/dl (70-99); Potassium 4.5 mmol/L (3.5-5.1); Sodium 136 mmol/L (135-145); Total Bilirubin 0.5 mg/dl (0.2-1.3); Total Protein 6.4 g/dl (6.3-8.2); eGFR > 60.00
[2023-06-21 07:51] LABS: Glucose - Point of Care 175 mg/dl (70-99)
[2023-06-21] MEDS: NOVOLOG FLEXPEN 5 UNITS SC (09:03)
[2023-06-21] MEDS: MYLICON 80 MG PO (09:04)
[2023-06-21] MEDS: LANTUS 0.149999999999999994 UNITS SC (09:04)
[2023-06-21] MEDS: ZADITOR 1 DROP OPHTH ×3 (09:04→21:14)
[2023-06-21] MEDS: NOVOLOG FLEXPEN-LOW RESISTANCE 1 UNITS SC (09:05)
[2023-06-21] MEDS: VITAMIN D3 (cholecalciferol) 50 MCG PO (09:08)
[2023-06-21] MEDS: VITAMIN B1 100 MG PO (09:09)
[2023-06-21] MEDS: NSS (PRESERVATIVE FREE) 16 ML IV ×2 (09:10→21:18)
[2023-06-21] MEDS: OSCAL 500 + D 500 MG PO ×2 (09:10→18:19)
[2023-06-21] MEDS: PEPCID 40 MG IV ×2 (09:10→21:10)
[2023-06-21] MEDS: LOVENOX 90 MG SC ×2 (09:11→21:09)
--- NOTE | 2023-06-21 09:11 | W.PN.HOSP.TC ---
Addendum entered and electronically signed by Dani Duran MD 06/21/23 14:27:
Received call from [facility]. Bed not available at [facility] or [facility]. Transfer center said they would look for other appropriate beds within their system.
Original Note:
Today's Communication/Plan
-
Stable. Awaiting transfer to another hospital.
Assessment / Plan
Assessment / Plan
32-year-old female past medical history of:
Mast Cell Activation Syndrome,
POTS,
DOPA-sensitive Dystonia,
History of DVT and PE,
Steroid-Induced Diabetes Mellitus Type II,
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
Chronic Pain Syndrome,
GERD,
Migraine Headaches
presents with a mast cell flare.� Awaiting transfer to another hospital. Her statistical geneticist Dr. Villanueva at [place] is requesting transfer to [facility].
1. Mast Cell Activation Syndrome flare, with DOPA-Responsive Dystonia, Recurrent Anaphylaxis / Mast Cell Flare Episodes
She is feeling better after treatment with DuoNebs, Ativan/Benadryl, Dilaudid, methylprednisolone, Pepcid
- Continue maintenance medications including standing Ativan / Benadryl (pump), etc.
- Continue IV steroids methylprednisolone 50 every 12, as needed DuoNebs
- Continue IV breakthrough medications for control of acute symptoms including IV Ativan, Benadryl, Pepcid, and Dilaudid.
-� IV fluids
- Continue usual outpatient medications
- Continue carbidopa-levodopa for dystonia
-Patient to be transferred to another hospital when bed available
2. POTS disease
-Continue propranolol
3. Chronic Nausea / Esophageal Dysmotility- Stable.� PO meals
- Continue diet as tolerated.
- Continue G-tube to gravity for chronic nausea.
- Meds via J-tube.
- She is scheduled to have GJ tube exchange within a few days
4. Steroid-Induced DM-II
- Stable.� Continue basal insulin Lantus 15 units at meals and ISS
- Adjust regimen for adequate control
5. Steroid-Induced Osteoporosis wih Chronic Pain Syndrome secondary to it
- IV Dilaudid PRN.
- Follow-up with usual [place] [facility] [place] specialist after discharge.
6. History of DVT / PE complicating DVT Prophylaxis
- Continue BID / therapeutic dose Lovenox
7. Migraine history, Chronic
-Continue Nurtec
Code Status:� Full
DVT ppx- lovenox
Regular diet
Anticipated Discharge: Within 24 hours
Subjective/Interval History
-
Date of Service: June 21, 2023
No new issues, feels OK this am.
Objective Data
-
Labs:
Laboratory Results
06/21/23
06:25
WBC 15.7 H
Hgb 12.5
Hct 38.6
Plt Count 257 D
Sodium 136
Potassium 4.5
Chloride 100
Carbon Dioxide 31 H
BUN 15
Creatinine 0.4 L
Glucose 136 H
Calcium 9.3
Total Bilirubin 0.5
AST 25
ALT 30
Alkaline Phosphatase 60
Vital Signs:
Vital Signs
Temp Pulse Resp BP Pulse Ox
97.6 F 88 20 126/76 97
06/21/23 07:37 06/21/23 07:55 06/21/23 07:55 06/21/23 06:04 06/21/23 07:55
I&O
06/20/23 06/21/23 06/22/23
06:59 06:59 06:59
Intake Total 5840 / 5840
Output Total 1000 / 1000
Balance 4840 / 4840
Review of Systems
-
History Source: Patient
All other systems: Reviewed and negative
Physical Exam
-
General: Well Developed, Well Nourished, No Apparent Distress and Obese
HEENT: Nose Appears Normal and Ears Appear Normal
Respiratory: Clear to Auscultation
Cardiac: Regular Rhythm and Tachycardic
GI: Soft, Nontender and Nondistended
Musculoskeletal: No Clubbing, No Cyanosis and No Edema
Skin: Warm and Dry; Negative Rash or Ulcers
Neuro: Awake, Alert, Oriented and AO x 3
Psych: Calm
Data Reviewed
-
Labs: Labs Reviewed by me
--- NOTE | 2023-06-21 09:40 | CM ---
Addendum entered by Amada Penn 06/21/23 15:38:
Patient seen bedside.
IA completed.
patient lives with her stepdad and mom.
2 story home with a makeshift ramp and 1st floor set up.
Patient has: hospital bed, rollator, raised toilet set, commode. standing form walker, 2 wheelchairs, IV poles, oxygen, nebulizer, CPAP, IV poles. Her custom WC does not fit anymore due to wt gain with medications.
Patient stated she has a script for a power WC.
Per patient she is current with [facility] for 09/12 care, however they are currently short staffed and her mother helps out.
Per patient she does not qualify for additional services such as PT/OT.
Patient is also current with [facility] for IV meds.
Per patient she usually goes to [facility] and is possible for transfer to [place].
PCP: Dr Mendoza
Pharmacy: [facility].
Plan: Possible [place] transfer, await acceptance and bed.
Original Note:
TC from floor re transfer time.
Spoke with [facility], admission on hold for administrative review, they will notify when bed available or for additional information.
[2023-06-21 11:03] LABS: Glycohemoglobin (HgbA1c) 6.6 % (4.0-5.6)
[2023-06-21] MEDS: HYDREA 500 MG PO (11:12)
[2023-06-21] MEDS: NON-FORMULARY ITEM 360 IV (11:47)
[2023-06-21] MEDS: NON-FORMULARY ITEM 2 SPRAY NASAL (12:20)
[2023-06-21] MEDS: NOVOLOG FLEXPEN-LOW RESISTANCE SC ×2 (12:29→17:43)
[2023-06-21 12:44] LABS: Glucose - Point of Care 129 mg/dl (70-99)
[2023-06-21] MEDS: SINEMET 25-100 2 TABLET TUBE ×2 (15:05→17:00)
[2023-06-21] MEDS: NON-FORMULARY ITEM 300 MG PO (15:06)
[2023-06-21] MEDS: NON-FORMULARY ITEM 20 MG PO ×2 (15:07→17:01)
[2023-06-21] MEDS: NON-FORMULARY ITEM 180 MG PO (15:08)
[2023-06-21] MEDS: ADRENALIN 0.299999999999999989 MG IM ×2 (16:28→16:34)
[2023-06-21] MEDS: ZOFRAN 4 MG IV (16:50)
[2023-06-21] MEDS: TYLENOL 975 MG PO (16:57)
--- NOTE | 2023-06-21 16:59 | RR ---
Called to room by patient to report that she felt an 'aura' and is concerned she may have a episode of dystonia. Acquired Ativan and Benadryl and Pt began with dystonia episode. Pt arms contracted with eye deviation and mild tremor; Pt able to
respond to a certain extent during episode. Ativan and Benadryl x 2 given, with no change. Epi 0.3 IM given x 3 with no effect - Rapid called. A Rapid Response was called on this patient, please see Rapid Response form.
[2023-06-21] MEDS: ZYRTEC 10 MG TUBE ×2 (17:00→21:11)
[2023-06-21 17:25] LABS: Glucose - Point of Care 144 mg/dl (70-99)
[2023-06-21] MEDS: DILAUDID 2 MG IV ×2 (18:18→21:28)
[2023-06-21] MEDS: FEOSOL 325 MG PO (21:09)
--- NOTE | 2023-06-21 21:37 | PTCARENOTE ---
Pt having Mast cell episode, medications administered as ordered, see MAR. Pt tremulous, rigid, face red, tachypneic, with severe cough and wheeze. RT at bedside to give treatment as ordered. Pt responsive and able to state what she needs. HR
tachycardic in the 120's. POX 96% on 3 LO2NC. Will continue to monitor.
[2023-06-21 22:09] LABS: Glucose - Point of Care 194 mg/dl (70-99)
--- NOTE | 2023-06-21 23:36 | PTCARENOTE ---
Pt sleeping comfortably at this time, post Mast Cell Episode. Vital signs remain stable. Will continue to monitor.
[2023-06-22] VITALS (11 sets, daily range): BP systolic 125–163; BP diastolic 78–107
[2023-06-22] MEDS: BENADRYL 25 MG IV ×5 (02:06→22:25)
[2023-06-22] MEDS: ATIVAN 1 MG IV ×4 (02:08→22:27)
[2023-06-22] MEDS: DILAUDID 2 MG IV ×5 (02:10→23:26)
[2023-06-22] MEDS: ATIVAN SL (02:14)
[2023-06-22] MEDS: SUBUTEX SL (02:14)
--- NOTE | 2023-06-22 02:14 | PTCARENOTE ---
pt with mast cell episode. Medications administered as ordered, see MAR. Nimco care provided, new pure wick now in place. Will continue to monitor.
[2023-06-22] MEDS: SINEMET 25-100 1.5 TABLET TUBE ×2 (05:48→11:09)
[2023-06-22] MEDS: LIORESAL 10 MG PO ×3 (05:48→21:48)
[2023-06-22] MEDS: INDERAL 10 MG TUBE ×3 (05:48→21:48)
[2023-06-22] MEDS: SOLU-MEDROL PF 50 MG IV ×2 (05:50→17:19)
[2023-06-22] MEDS: ATIVAN 1 MG SL ×3 (05:54→17:21)
[2023-06-22] MEDS: SUBUTEX 2 MG SL ×3 (06:02→17:35)
--- NOTE | 2023-06-22 06:29 | PTCARENOTE ---
Pt with 2 mast cell episodes overnight. Otherwise pt was able to sleep well. Pt voiding large amount of urine. Vitals stable. IVF infusing as ordered. Will continue to monitor.
[2023-06-22] MEDS: VITAMIN C 1250 MG PO (07:31)
[2023-06-22] MEDS: MYLICON 80 MG PO (07:32)
[2023-06-22] MEDS: NON-FORMULARY ITEM 80 MG PO (07:33)
[2023-06-22] MEDS: HYDREA 500 MG PO (07:34)
[2023-06-22 07:35] LABS: Glucose - Point of Care 156 mg/dl (70-99)
[2023-06-22] MEDS: ZADITOR 1 DROP OPHTH ×3 (07:35→21:51)
[2023-06-22] MEDS: NOVOLOG FLEXPEN 5 UNITS SC ×3 (07:37→17:50)
[2023-06-22] MEDS: NOVOLOG FLEXPEN-LOW RESISTANCE 1 UNITS SC ×2 (07:37→11:41)
--- NOTE | 2023-06-22 07:41 | W.PN.HOSP.TC ---
Today's Communication/Plan
-
see plan
Assessment / Plan
Assessment / Plan
32-year-old female past medical history of who presented with a mast cell flare.�Currently awaiting transfer to [place] as per her mortar mixer operator Dr. Villanueva at [facility].
Gen: NAD, AAOx3.
Eyes: EOMI, PERRLA, no scleral icterus.
Neck: supple.
CV: RRR, +S1/S2, no m/r/g.
Resp: CTAB, no rales, wheezes, or rhonchi.
Abd: +BS, soft, NT, ND
Skin: No rashes.
Neuro: CN 2-12 intact, non-focal.
Psych: Normal mood and affect.
Mast Cell Activation Syndrome flare, with DOPA-Responsive Dystonia, Recurrent Anaphylaxis/Mast Cell Flare Episodes:
-clinically improved after treatment with DuoNebs, Ativan/Benadryl, Dilaudid, methylprednisolone, Pepcid
-cont maintenance medications including standing Ativan / Benadryl (pump), etc.
-cont Methylprednisolone 50mg IV Q12H, PRN DuoNebs
-cont IV breakthrough medications for control of acute symptoms including IV Ativan, Benadryl, Pepcid, and Dilaudid.
-cont IVFs
-cont Gleevec
-cont carbidopa-levodopa for dystonia
-awaiting transfer to [place]
Other problems:
POTS disease: Continue propranolol
Chronic Nausea/Esophageal Dysmotility: Continue diet as tolerated. Continue G-tube to gravity for chronic nausea. Meds via J-tube. She is scheduled to have GJ tube exchange within a few days
Steroid-Induced DM2: cont Lantus/premeal Novology/SSI/accuchecks
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
h/o DVT/PE: cont Lovenox 1mg/kg SC Q12H
h/o Migraine headaches: Continue Nurtec
FULL/Lovenox
Anticipated Discharge: Today
Subjective/Interval History
-
Date of Service: June 22, 2023
No new complaints. Currently without CP/SOB.
Objective Data
-
Labs:
Laboratory Results
06/22/23
06:00
WBC Pending
Hgb Pending
Hct Pending
Plt Count Pending
Sodium Pending
Potassium Pending
Chloride Pending
Carbon Dioxide Pending
BUN Pending
Creatinine Pending
Glucose Pending
Calcium Pending
Vital Signs:
Vital Signs
Temp Pulse Resp BP Pulse Ox
98 F 90 13 131/107 99
06/22/23 07:11 06/22/23 06:00 06/22/23 06:00 06/22/23 06:00 06/22/23 06:00
I&O
06/21/23 06/22/23 06/23/23
06:59 06:59 06:59
Intake Total 5840 / 5840 1920 / 0
Output Total 1000 / 1000 4550 / 4550
Balance 4840 / 4840 -2630 / -2630
[2023-06-22] MEDS: NSS 1000 IV ×2 (07:46→17:51)
[2023-06-22] MEDS: LANTUS 0.149999999999999994 UNITS SC (07:46)
[2023-06-22] MEDS: NON-FORMULARY ITEM 1 UNIT PO ×3 (08:06→17:48)
[2023-06-22] MEDS: NON-FORMULARY ITEM 20 MG PO ×2 (08:07→17:21)
[2023-06-22] MEDS: PEPCID 40 MG IV ×2 (10:57→21:38)
[2023-06-22] MEDS: ZOFRAN 4 MG IV (10:57)
[2023-06-22] MEDS: NON-FORMULARY ITEM 180 MG PO ×2 (11:08→14:20)
[2023-06-22] MEDS: VITAMIN B1 100 MG PO (11:09)
[2023-06-22] MEDS: OSCAL 500 + D 500 MG PO ×2 (11:09→17:19)
[2023-06-22] MEDS: VITAMIN D3 (cholecalciferol) 50 MCG PO (11:10)
[2023-06-22] MEDS: LOVENOX 90 MG SC ×2 (11:10→21:46)
[2023-06-22] MEDS: TYLENOL 975 MG PO ×2 (11:10→17:19)
[2023-06-22] MEDS: NON-FORMULARY ITEM 2 SPRAY NASAL (11:13)
[2023-06-22] MEDS: NSS (PRESERVATIVE FREE) 16 ML IV ×2 (11:14→21:40)
[2023-06-22] MEDS: DUONEB 3 ML INH ×3 (11:19→22:35)
[2023-06-22] MEDS: DILAUDID 0.5 MG IV ×2 (11:23→22:32)
[2023-06-22 11:38] LABS: Glucose - Point of Care 156 mg/dl (70-99)
[2023-06-22] MEDS: BENADRYL 250 MG IV (11:46)
--- NOTE | 2023-06-22 12:57 | W.PN.UPDATE ---
Update Note
Progress Note Update
Case discussed with Drs. Dani Duran and Mk Spears. Initially the patient was accepted at [place] under the service of Dr. Gómez but then the plan changed and the pt was accepted under the service of Dr. Jane in the ICU at
[place]. It appears the plan was for the pt to go to [place] ICU and then transfer from there to ICU at [place].
--- NOTE | 2023-06-22 14:01 | W.PN.UPDATE ---
Addendum entered and electronically signed by Kelvin Rich MD 06/22/23 14:14:
based on prior dystonic reactions will keep in IMU for now. c/s Heme.
Original Note:
Update Note
Progress Note Update
Case discussed with the cryptoanalysis teacher at [place]. Transfer declined at this time based on the patient's current clinical status. Transfer to [facility] and monitor for now. Will readdress potential transfer tomorrow.
[2023-06-22 14:10] LABS: Hematocrit 38.6 % (37.0-47.0); Hemoglobin 12.7 g/dL (12.0-16.0); Mean Corp Hgb Conc. 32.9 g/dL (33.0-37.0); Mean Corpuscular Hgb 33.8 pg (27.0-31.0); Mean Corpuscular Volume 102.7 fL (81.0-99.0); Mean Platelet Volume 9.4 fL (7.4-10.4); Platelet Count 270 10^3/uL (130-400); Red Blood Cell Count 3.76 10^6/uL (4.20-5.40); White Blood Cell Count 14.4 10^3/uL (4.8-10.8)
[2023-06-22] MEDS: SINEMET 25-100 2 TABLET TUBE ×2 (14:17→17:19)
[2023-06-22] MEDS: NON-FORMULARY ITEM 200 MG PO (14:24)
[2023-06-22 14:47] LABS: Blood Urea Nitrogen 13 mg/dl (7-17); Calcium 8.9 mg/dl (8.4-10.2); Carbon Dioxide 24 mmol/L (22-30); Chloride 104 mmol/L (98-107); Estimated Creatinine Clearance > 125 ml/min; Glucose 194 mg/dl (70-99); Potassium 4.3 mmol/L (3.5-5.1); Sodium 135 mmol/L (135-145); eGFR > 60.00
[2023-06-22] MEDS: ADRENALIN 0.299999999999999989 MG IM (15:10)
--- NOTE | 2023-06-22 15:16 | PTCARENOTE ---
Mast Cell episode @ 1514, upper body rigidity, arm/hand contraction, arched abbie and eyes rolling back. Benadryl and Ativan administered via R PICC. Pt moaning and crying throughout. Parents present in room during episode. Resp notified, Neb
treatment administered. No change after meds administered. Ice packs applied, feet raised. SpO2 in 80's; HR ~ 150's. Non-rebreather placed on patient with SpO2 ~ 97%; Epi 0.3mg IM given and episode ceased after a few minutes. Will continue to
monitor and assess.
[2023-06-22 16:30] LABS: Glucose - Point of Care 139 mg/dl (70-99)
[2023-06-22] MEDS: ZYRTEC 10 MG TUBE ×2 (17:19→21:49)
[2023-06-22] MEDS: NOVOLOG FLEXPEN-LOW RESISTANCE SC (17:37)
[2023-06-22] MEDS: FEOSOL 325 MG PO (21:49)
[2023-06-22 23:42] LABS: Glucose - Point of Care 194 mg/dl (70-99)
[2023-06-23] VITALS (42 sets, daily range): BP systolic 89–158; BP diastolic 59–126
[2023-06-23] MEDS: ZOFRAN 4 MG IV (00:51)
[2023-06-23] MEDS: ATIVAN 1 MG SL ×4 (00:52→18:01)
[2023-06-23] MEDS: SUBUTEX 2 MG SL ×5 (00:52→23:45)
--- NOTE | 2023-06-23 02:40 | PTCARENOTE ---
Assumed care of Pt from Day RN. Pt AAOx3. Pt having episode of Mast Cell syndrome w/body rigidity, arm/hand contraction, arched back and eyes rolling back. Episode lasting over 30 minutes. Night HEEL GOUGER made aware, orders to give PRN medication early
(see MAR). Pt able to communicate by whisper entire time of episode. Pt made RN aware that living will and POA paper work was brought in saying DNR. Night HEEL GOUGER notified and copy in chart.
[2023-06-23] MEDS: NSS 1000 IV ×3 (03:54→23:44)
[2023-06-23] MEDS: BENADRYL 250 MG IV ×2 (03:54→19:49)
[2023-06-23] MEDS: DILAUDID 2 MG IV ×4 (04:08→20:12)
[2023-06-23] MEDS: BENADRYL 25 MG IV ×5 (05:05→20:33)
[2023-06-23] MEDS: ATIVAN 1 MG IV ×3 (05:05→20:44)
[2023-06-23] MEDS: LIORESAL 10 MG PO ×3 (05:34→21:25)
[2023-06-23] MEDS: SINEMET 25-100 1.5 TABLET TUBE (05:34)
[2023-06-23] MEDS: INDERAL 10 MG TUBE ×3 (05:35→21:25)
[2023-06-23] MEDS: SOLU-MEDROL PF 50 MG IV ×2 (05:35→18:02)
--- NOTE | 2023-06-23 06:45 | CON.ONC ---
Impression
Impression
Mast cell activation syndrome, nonclonal
Deana-Danlos
Dystonia, on Sinemet
Plan
Plan
Case was discussed today with Dr. Villanueva. Patient has been banned from admission to [place]. [facility] also refused admission stating they would not be able to do anything else for her.
Case was discussed with Dr. Saravanan Cervantes and the internal medicine hospitalist attending at [facility]. They have also declined transfer.
L/m with [facility] group who specialize in mast cell disorders, Dr. Geovani Dixon, to discuss pt.
Patient continues on Benadryl continuous infusion at 15 mg/h. She is on Solu-Medrol 50 mg IV every 6.
She is taking her home cromolyn sodium regimen of 200 4 times daily. Uptodate suggests that cromolyn sodium could be increased to as much as 40 mg/kg per day. She is currently only at 8 mg/kg. For now we will increase to 400 mg PO QID.
Unclear to me whether the Solumedrol could be increased, and/or her continuous benadryl infusion which is currently infusing at 15 mg/hr.
Consult Allery/Immunology - managing this complex reaction may be more in their wheelhouse.
Dr. Villanueva's suggestion was to increase Hydrea to 500 mg PO BID from 500 mg daily - done.
Critical care time spent coordinating care and attempting to transfer: 200 min.
Patient History
History of Present Illness
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
Syndrome, GERD, Migraine Headaches presenting with mast cell flare.� Patient recently had a grandparent and she has been weaned off of her fentanyl patch which caused her to have a flareup.� Her symptoms usually include dizziness,
headache, seizure-like activity, vomiting, shortness of breath and feeling like her throat is closing up.� She has been taking epinephrine over the past few weeks.� She required 4 IM injections of epinephrine on day of presentation.� She was told to
go to the hospital if she required more than 2 per day.� She has recently been treated with prednisone and was on 60 mg for this flare but had begun to wean down to 40 mg beginning the day prior to ED presentation. Her hop grower Dr. Villanueva at
[place] requested transfer to [place] but no bed available. As of 06/22, [facility] declined transfer as clinical status had improved. Pt currently on DuoNebs, Pepcid, Solumedrol 50 mg IV Q12, imatinib, Benadryl via pump. She is on Lovenox 1 mg/kg SC
Q12 for hx DVT/PE. She is on insulin for steroid-induced DM. Continues on Carbidopa-levodopa for dystonia. Pt has had frequent admissions here but we last saw her in 2020.
Past-Medical/Surgical History
Past Medical History
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
Syndrome, GERD, Migraine Headache)
Past Surgical History: Reports None
Her mast cell activation syndrome is usually managed by Dr. MONTRELL solares at [place]. She has not had a second opinion at [facility] or other institution. Her mast cell activation is nonclonal. 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 But is being managed with
Gleevec and Hydrea in addition to the usual medications.
Social History
Tobacco: Non-smoker
Alcohol: None
Drug: None
Family History
Family History: Not pertinent
Allergies / Home Medications
Patient Medication
Medication Instructions Recorded Confirmed Last Taken Type
propranolol 10 mg tablet 10 mg feeding tube 04/16/15 06/11/23 03/24/23 History
TID@0600,1400,2200 Heart
disease/condition
cetirizine 10 mg tablet 10 mg feeding tube BID@1800,2200 11/03/20 06/11/23 03/23/23 History
Allergies
fluticasone furoate 27.5 2 spray intranasal DAILY@1000 11/03/20 06/11/23 03/24/23 History
mcg/actuation nasal Allergies
spray,suspension (Flonase
Sensimist)
ketotifen fumarate 0.025 % (0.035 1 drp BOTH EYES TID Eye condition 11/03/20 06/11/23 03/24/23 History
%) eye drops (Zaditor)
budesonide 0.5 mg/2 mL suspension 0.5 mg inhalation R BID@1000,2000 09/27/21 06/11/23 03/24/23 History
for nebulization Lung/breathing issues
diphenhydramine HCl 50 mg/mL 0 mg IV .CONTINUOUS Allergies 09/27/21 06/11/23 03/24/23 History
injection solution
diphenhydramine HCl 50 mg/mL 25 mg IV Q3HPRN PRN mcas 09/27/21 06/11/23 06/18/22 18:05 History
injection solution reaction/anaphylaxis/dystonia
etonogestrel 0.12 mg-ethinyl 1 vag.ring VAG MONTHLY Hormonal 09/27/21 06/11/23 03/16/23 History
estradiol 0.015 mg/24 hr vaginal agent
ring (NuvaRing)
famotidine (PF) 20 mg/2 mL 40 mg IV Q12H@1000,2200 09/27/21 06/11/23 03/24/23 History
intravenous solution Gastrointestinal issue
methylprednisolone sod suc(PF) 40 60 mg IV PRN PRN anaphylaxis, or 09/27/21 06/11/23 06/17/22 18:00 History
mg/mL solution for injection pre procedure
(Solu-Medrol (PF))
prednisone 5 mg tablet 10 mg feeding tube BID@1000,1800 09/27/21 06/11/23 03/24/23 History
Anti-inflammatory
rabeprazole 20 mg tablet,delayed 20 mg PO BID@0930,1730 09/27/21 06/11/23 03/24/23 History
release (AcipHex) Gastrointestinal issue
cromolyn 100 mg/5 mL oral 200 mg PO .ACHS SEE TIMES BELO 10/02/21 06/11/23 03/24/23 History
concentrate FOOD ALLERGIES
ferrous sulfate 325 mg (65 mg 325 mg PO HS Supplement 10/02/21 06/11/23 03/23/23 History
iron) tablet (FeroSul)
rimegepant 75 mg disintegrating 75 mg PO DAILYPRN PRN migraine 10/02/21 06/11/23 06/15/22 History
tablet (Nurtec ODT)
acetaminophen 650 mg 1,300 mg PO BID@1000,1800 Pain 05/13/22 06/11/23 03/24/23 History
tablet,extended release
baclofen 10 mg tablet 10 mg PO TID@0600,1400,2200 Muscle 05/13/22 06/11/23 03/24/23 History
Spasms
cholecalciferol (vitamin D3) 50 50 mcg PO DAILY@1000 Supplement 05/13/22 06/11/23 03/24/23 History
mcg (2,000 unit) tablet
imatinib 100 mg tablet (Gleevec) 300 mg PO DAILY@1400 Cancer 05/13/22 06/11/23 06/18/22 14:00 History
insulin lispro 100 unit/mL 0 - 5 sliding scale dose SC AC 05/13/22 06/11/23 06/18/22 18:00 History
subcutaneous pen Diabetes 0
lorazepam 2 mg/mL oral concentrate 2 mg sublingual Q6H PRN dystonia 05/13/22 06/11/23 06/18/22 History
simethicone 80 mg chewable tablet 80 mg PO DAILY 05/13/22 06/11/23 06/18/22 10:00 History
thiamine HCl (vitamin B1) 100 mg 100 mg PO DAILY@1000 Supplement 05/13/22 06/11/23 03/24/23 History
tablet
fexofenadine 180 mg tablet 180 mg PO BID@1000,1400 Allergies 06/18/22 06/11/23 03/24/23 History
carbidopa 25 mg-levodopa 100 mg 1.5 tab feeding tube BID@0600,1000 08/17/22 06/11/23 03/24/23 History
tablet (Sinemet) DYSTONIA
carbidopa 25 mg-levodopa 100 mg 2 tab feeding tube BID@1400,1800 08/17/22 06/11/23 03/23/23 History
tablet (Sinemet) DYSTONIA
ondansetron 4 mg disintegrating 4 mg PO Q8HPRN PRN mild nausea 08/17/22 06/11/23 Unknown History
tablet
Salt Stick 2 cap feeding tube PRN PRN POTS 02/11/23 06/11/23 Unknown History
ascorbic acid (vitamin C) 1,000 mg 1,200 mg PO DAILY Supplement 02/11/23 06/11/23 03/24/23 History
tablet (Vitamin C)
epinephrine 0.3 mg/0.3 mL 0.3 mg IM PRN PRN anaphylaxis 02/11/23 06/11/23 Unknown History
injection, auto-injector
ondansetron HCl (PF) 4 mg/2 mL 4 mg IV Q8H PRN severe 02/11/23 06/11/23 Unknown History
injection solution nausea/vomiting
Nss 1,000 ml IV DAILY 10am 03/24/23 06/11/23 Unknown History
Nss 1,000 ml IV DAILY PRN one extra 03/24/23 06/11/23 03/24/23 History
bag daily
albuterol sulfate 2.5 mg/3 mL 2.5 mg inhalation R Q6 PRN 06/11/23 06/11/23 Unknown History
(0.083 %) solution for nebulization anaphylaxis
buprenorphine HCl 2 mg sublingual 2 mg sublingual QID@00,06,12,18 06/11/23 06/11/23 Unknown History
tablet
calcium citrate 200 mg 2 tab PO BID@1000,1800 06/11/23 06/11/23 Unknown History
calcium-vitamin D3 6.25 mcg (250
unit) tablet
enoxaparin 100 mg/mL subcutaneous 90 mg SC BID@1000,2200 06/11/23 06/11/23 Unknown History
syringe
epinephrine 0.3 mg/0.3 mL 0.3 mg (0.3 mL) IM Q5-15M PRN 06/11/23 Unknown Rx
injection, auto-injector (EpiPen anaphylaxis #2 ea
2-Memo)
hydromorphone 8 mg tablet 8 mg PO Q3H PRN severe pain 06/11/23 06/11/23 Unknown History
insulin glargine 100 unit/mL (3 15 unit SC DAILY 06/11/23 06/11/23 Unknown History
mL) subcutaneous pen (Lantus
Solostar U-100 Insulin)
lorazepam 2 mg/mL oral concentrate 1 mg sublingual QID@00,06,12,18 06/11/23 06/11/23 Unknown History
simethicone 80 mg chewable tablet 80 mg PO HS PRN gas 06/11/23 06/11/23 Unknown History
aprepitant 80 mg capsule (Emend) 80 mg PO DAILY 06/21/23 06/21/23 Unknown History
hydroxyurea 500 mg capsule (Hydrea) 500 mg PO 06/21/23 Unknown History
Active Medications
Generic Name Dose Route Start Last Admin
Trade Name Freq PRN Reason Stop Dose Admin
Acetaminophen 1,300 mg 06/21/23 18:00 06/22/23 17:19
Acetaminophen 325 Mg Tablet PO 07/19/23 17:59 975 mg
BID@1000,1800 MELONIE Administration
Albuterol Sulfate 2.5 mg 06/21/23 01:58
Albuterol Nebs 2.5 Mg/3 Ml Ampul INH 07/19/23 01:57
R Q6 PRN
anaphylaxis
Protocol
Albuterol/Ipratropium 3 ml 06/21/23 01:12 06/22/23 22:35
Ipratropium 0.5/Albuterol 3 Mg (3 Ml Ampul) INH 07/19/23 01:11 3 ml
R Q4HPRN PRN Administration
Dyspnea
Protocol
Ascorbic Acid 1,250 mg 06/22/23 08:00 06/22/23 07:31
Ascorbic Acid 500 Mg Tablet PO 07/20/23 07:59 1,250 mg
DAILY MELONIE Administration
Baclofen 10 mg 06/21/23 06:00 06/23/23 05:34
Baclofen 10 Mg Tablet PO 07/19/23 05:59 10 mg
TID@0600,1400,2200 MELONIE Administration
Buprenorphine 2 mg 06/21/23 06:00 06/23/23 05:34
Buprenorphine 2 Mg Sl Tablet SL 07/05/23 05:59 2 mg
QID@00,06,12,18 MELONIE Administration
Calcium/Vitamin D 500 mg 06/21/23 10:00 06/22/23 17:19
Calcium Carbonate 500 Mg/Vitamin D 5 Mcg (200 Units) Tablet PO 07/19/23 09:59 500 mg
BID@1000,1800 MELONIE Administration
Carbidopa/Levodopa 2 tablet 06/21/23 14:00 06/22/23 17:19
Carbidopa (25 Mg)/Levodopa (100 Mg) Regular Release Tablet TUBE 07/19/23 13:59 2 tablet
BID@1400,1800 MELONIE Administration
Carbidopa/Levodopa 1.5 tablet 06/21/23 06:00 06/23/23 05:34
Carbidopa (25 Mg)/Levodopa (100 Mg) Regular Release Tablet TUBE 07/19/23 05:59 1.5 tablet
BID@0600,1000 MELONIE Administration
Cetirizine HCl 10 mg 06/21/23 18:00 06/22/23 21:49
Cetirizine Hcl 10 Mg Tablet TUBE 07/19/23 17:59 10 mg
BID@1800,2200 MELONIE Administration
Cholecalciferol 50 mcg 06/21/23 10:00 06/22/23 11:10
Cholecalciferol (Vitamin D3) 50 Mcg Tablet (2,000 Units) PO 07/19/23 09:59 50 mcg
DAILY@1000 MELONIE Administration
Dextrose 12.5 grams 06/21/23 00:07
Dextrose 50% (0.5 Grams/Ml) 50 Ml Syringe IV 07/19/23 00:06
[id number] PRN
hypoglycemia
Protocol
Diphenhydramine HCl 25 mg 06/20/23 23:59 06/23/23 05:05
Diphenhydramine 50 Mg/Ml 1 Ml Vial IV 07/18/23 23:58 25 mg
Q4HPRN PRN Administration
mast cell sxs
Enoxaparin Sodium 90 mg 06/21/23 10:00 06/22/23 21:46
Enoxaparin Sodium 100 Mg/Ml Syringe SC 07/19/23 09:59 90 mg
BID@1000,2200 MELONIE Administration
Famotidine 40 mg 06/21/23 10:00 06/22/23 21:38
Famotidine 20 Mg/2 Ml Vial IV 07/19/23 09:59 40 mg
Q12H MELONIE Administration
Ferrous Sulfate 325 mg 06/21/23 22:00 06/22/23 21:49
Ferrous Sulfate 325 Mg Tablet PO 07/19/23 21:59 325 mg
HS MELONIE Administration
Glucagon 1 mg 06/21/23 00:07
Glucagon 1 Mg Vial IM 07/19/23 00:06
PRN PRN
hypoglycemia
Protocol
Hydromorphone HCl 0.5 mg 06/21/23 01:58 06/22/23 22:32
Hydromorphone 0.5 Mg/0.5 Ml Syringe IV 07/05/23 01:57 0.5 mg
Q4HPRN PRN Administration
severe pain
Hydromorphone HCl 2 mg 06/21/23 20:00 06/23/23 04:08
Hydromorphone 0.5 Mg/0.5 Ml Syringe IV 07/04/23 19:59 2 mg
Q4HPRN PRN Administration
mast cell symptoms
Hydroxyurea 500 mg 06/21/23 10:00 06/22/23 07:34
Hydroxyurea 500 Mg Capsule PO 07/19/23 09:59 500 mg
DAILY MELONIE Administration
Sodium Chloride 1,000 mls @ 100 mls/hr 06/21/23 01:58 06/23/23 03:54
Nss IV 1,000 mls
.Q10H MELONIE Administration
Insulin Glargine 15 units/ 0.15 mls @ 0 mls/hr 06/21/23 08:00 06/22/23 07:46
Device SC 07/19/23 07:59 0.15 mls
DAILY MELONIE Administration
As Directed
Diphenhydramine HCl 250 mg/ 250 mls @ 15 mls/hr 06/22/23 12:00 06/23/23 03:54
Sodium Chloride IV 07/20/23 11:59 250 mls
Q16H MELONIE Administration
Insulin Aspart 0 units 06/21/23 07:30 06/22/23 17:37
Insulin Aspart Low Resistance 300 Units/3 Ml Pen.Injctr SC 07/19/23 07:29 Not Given
AC MELONIE
Protocol
Insulin Aspart 5 units 06/22/23 07:30 06/22/23 17:50
Insulin Aspart (100 Units/Ml) 3 Ml Flexpen SC 07/20/23 07:29 5 units
AC MELONIE Administration
Ketotifen Fumarate 1 drop 06/21/23 08:00 06/22/23 21:51
Ketotifen Fumarate (Ophthalmic Solution) Bottle OPHTH 07/19/23 07:59 1 drop
TID MELONIE Administration
Lorazepam 1 mg 06/21/23 01:11 06/23/23 05:05
Lorazepam 2 Mg/Ml Vial IV 07/19/23 01:10 1 mg
Q4HPRN PRN Administration
agitation
Lorazepam 1 mg 06/21/23 06:00 06/23/23 05:33
Lorazepam 1 Mg Tablet SL 07/19/23 05:59 1 mg
QID@00,06,12,18 MELONIE Administration
Methylprednisolone Sodium Succinate 50 mg 06/21/23 06:00 06/23/23 05:35
Methylprednisolone Pf 125 Mg/2 Ml Vial IV 07/19/23 05:59 50 mg
Q12H MELONIE Administration
Fluticasone Furoate 0 spray 06/21/23 10:00 06/22/23 11:13
[Flonase Sensimist]- NASAL 07/19/23 09:59 2 spray
-Pt's Own DAILY@1000 MELONIE Administration
Patient Own Med 0 mg 06/21/23 14:00 06/22/23 14:24
Imatinib [Gleevec] PO 07/19/23 13:59 200 mg
100 Mg Tablet 3 Tabs DAILY@1400 MELONIE Administration
@1400
Patient Own Med 0 mg 06/21/23 09:30 06/22/23 17:21
Rabeprazole [Aciphex PO 07/19/23 09:29 20 mg
] 20 Mg Tablet,Dr 1 BID@0930,1730 MELONIE Administration
Bid
Non-Formulary Medication 75 mg 06/21/23 01:58
Rimegepant [Nurtec Odt] PO
DAILYPRN PRN
migraine
Patient Own Med 0 mg 06/21/23 11:52 06/22/23 14:20
Fexofenadine 180 Mg PO 07/19/23 09:59 180 mg
Tablet 1 Bid@1000, BID@1000,1400 MELONIE Administration
1400
Patient Own Med 0 mg 06/22/23 08:00 06/22/23 07:33
Aprepitant [Emend] PO 07/20/23 07:59 80 mg
80 Mg Capsule 1 DAILY MELONIE Administration
Daily
Patient Own Med 0 unit 06/21/23 15:00 06/22/23 17:48
Cromolyn Sodium Oral PO 07/19/23 14:59 1 unit
Solution 100mg/5ml .ACHS SEE TIMES BELO MELONIE Administration
10mls Qid
Ondansetron HCl 4 mg 06/21/23 01:58 06/23/23 00:51
Ondansetron 4 Mg/2 Ml Vial IV 07/19/23 01:57 4 mg
Q6HPRN PRN Administration
nausea and vomiting
Propranolol HCl 10 mg 06/21/23 06:00 06/23/23 05:35
Propranolol 10 Mg Regular Release Tablet TUBE 07/19/23 05:59 10 mg
TID@0600,1400,2200 MELONIE Administration
Simethicone 80 mg 06/21/23 01:58
Simethicone 80 Mg Chewable Tablet PO 07/19/23 01:57
HS PRN
gas
Simethicone 80 mg 06/21/23 08:00 06/22/23 07:32
Simethicone 80 Mg Chewable Tablet PO 07/19/23 07:59 80 mg
DAILY MELONIE Administration
Sodium Chloride 0 flush 06/21/23 03:00
Sodium Chloride 0.9% (Flush) Syringe IV 07/19/23 02:59
PER PROTOCOL MELONIE
Sodium Chloride 16 ml 06/21/23 10:00 06/22/23 21:40
Nss 16 Ml Bid IV 07/19/23 09:59 16 ml
Q12H MELONIE Administration
Thiamine HCl 100 mg 06/21/23 10:00 06/22/23 11:09
Thiamine 100 Mg Tablet PO 07/19/23 09:59 100 mg
DAILY@1000 MELONIE Administration
Review of Systems
-
History Source: Patient, Physician and Records
Constitutional: Reports Weight Gain and Fatigue
EENT: Reports Tearing and Mouth Swelling
Respiratory: Reports Cough, Trouble Breathing and Wheezing
Cardiac: Reports Chest Pain
GI: Reports Abdominal Pain, Nausea, Vomiting and Diarrhea
Musculoskeletal: Reports Joint Pain and Myalgias
Skin: Reports Itching
Neuro: Reports Headache, Weakness and Other (dystonia)
Endocrine: Reports No Symptoms
Hematologic/Lymphatic: Reports No Symptoms
Allergy / Immunology: Reports Other (anaphylaxis)
Psych: Reports Anxious
Physical Exam
-
Awake, alert, nontoxic between episodes of anaphylaxis
Cushingoid facies
Lungs clear
Heart tachycardic, regular
Abdomen soft, nontender
Extremities no edema
Skin no rashes
Neuro grossly nonfocal
Labs
Lab Results
WBC 14.4 10^3/uL (4.8-10.8) H 06/22/23 14:02
RBC 3.76 10^6/uL (4.20-5.40) L 06/22/23 14:02
Hgb 12.7 g/dL (12.0-16.0) 06/22/23 14:02
Hct 38.6 % (37.0-47.0) 06/22/23 14:02
MCV 102.7 fL (81.0-99.0) H 06/22/23 14:02
MCH 33.8 pg (27.0-31.0) H 06/22/23 14:02
MCHC 32.9 g/dL (33.0-37.0) L 06/22/23 14:02
RDW 15.0 % (11.5-14.5) H 06/22/23 14:02
Plt Count 270 10^3/uL (130-400) 06/22/23 14:02
MPV 9.4 fL (7.4-10.4) 06/22/23 14:02
Abs Immat Gran (auto) 0.9 10^3/uL (0-0.05) H 06/21/23 06:25
Absolute Neuts (auto) 10.7 10^3/uL (1.4-6.5) H 06/21/23 06:25
Absolute Lymphs (auto) 2.6 10^3/uL (1.2-3.4) 06/21/23 06:25
Absolute Monos (auto) 1.4 10^3/uL (0.1-0.6) H 06/21/23 06:25
Absolute Eos (auto) 0.0 10^3/uL (0-0.7) 06/21/23 06:25
Absolute Basos (auto) 0.1 10^3/uL (0-0.2) 06/21/23 06:25
Immature Gran % 5.9 % (0-0.5) H 06/21/23 06:25
Neutrophils % 68.1 % (42.2-75.2) 06/21/23 06:25
Lymphocytes % 16.8 % (20.5-51.1) L 06/21/23 06:25
Monocytes % 8.8 % (1.7-9.3) 06/21/23 06:25
Eosinophils % 0.0 % (0-6) 06/21/23 06:25
Basophils % 0.4 % (0-2) 06/21/23 06:25
Creatinine 0.4 mg/dL (0.6-1.0) L 06/22/23 14:02
Vital Signs
Vital Signs
Temp Pulse Resp BP Pulse Ox
97.6 F 101 22 132/84 96
06/23/23 05:52 06/23/23 06:00 06/23/23 06:00 06/23/23 06:00 06/23/23 05:35
--- NOTE | 2023-06-23 07:27 | W.PN.HOSP.TC ---
Today's Communication/Plan
-
see bold
Assessment / Plan
Assessment / Plan
32-year-old female past medical history of who presented with a mast cell flare.�Currently awaiting transfer to [place] as per her securities adviser Dr. Villanueva at [facility].
Gen: NAD, AAOx3, appears chronically ill, cushingoid appearance.
Eyes: EOMI, PERRLA, no scleral icterus.
Neck: supple.
CV: remains RRR, +S1/S2, no m/r/g.
Resp: CTAB anteriorly, no rales, wheezes, or rhonchi.
Abd: +BS, soft, NT, ND
Skin: No rashes.
Neuro: CN 2-12 intact, non-focal.
Psych: Normal mood and affect.
Mast Cell Activation Syndrome flare, with DOPA-Responsive Dystonia, Recurrent Anaphylaxis/Mast Cell Flare Episodes:
-clinically improved after treatment with DuoNebs, Ativan/Benadryl, Dilaudid, methylprednisolone, Pepcid
-cont maintenance medications including standing Ativan / Benadryl (pump), etc.
-cont Methylprednisolone 50mg IV Q12H, PRN DuoNebs
-cont IV breakthrough medications for control of acute symptoms including IV Ativan, Benadryl, Pepcid, and Dilaudid.
-cont IVFs
-cont Gleevec
-cont carbidopa-levodopa for dystonia
-c/s heme-onc
-continue efforts in transferring to [place]
Other problems:
POTS disease: Continue propranolol
Chronic Nausea/Esophageal Dysmotility: Continue diet as tolerated. Continue G-tube to gravity for chronic nausea. Meds via J-tube. She is scheduled to have GJ tube exchange within a few days
Steroid-Induced DM2: cont Lantus/premeal Novology/SSI/accuchecks
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
h/o DVT/PE: cont Lovenox 1mg/kg SC Q12H
h/o Migraine headaches: Continue Nurtec
FULL/Lovenox
Total time spent on today's encounter was 50 minutes which included time spent in counseling the patient/family regarding diagnosis and treatment plan as listed above, goals of care, and symptom management. Case was discussed with nursing staff,
specialists, and care coordinators/case management. All labs and imaging personally reviewed by me. Remainder the time spent in detailed review of previous records, lab data, imaging, and other medical provider documentation.
Anticipated Discharge: > 48 hours
Subjective/Interval History
-
Date of Service: June 23, 2023
No new complaints.
Objective Data
-
Vital Signs:
Vital Signs
Temp Pulse Resp BP Pulse Ox
97.6 F 101 22 132/84 96
06/23/23 05:52 06/23/23 06:00 06/23/23 06:00 06/23/23 06:00 06/23/23 05:35
I&O
06/22/23 06/23/23 06/24/23
06:59 06:59 06:59
Intake Total 1920 / 1920 2370 / 2370
Output Total 4550 / 4550 3550 / 3550
Balance -2630 / -2630 -1180 / -1180
[2023-06-23 07:46] LABS: Glucose - Point of Care 133 mg/dl (70-99)
[2023-06-23] MEDS: NOVOLOG FLEXPEN-LOW RESISTANCE SC ×2 (07:49→18:23)
[2023-06-23] MEDS: NON-FORMULARY ITEM 1 UNIT PO ×4 (08:00→21:23)
[2023-06-23] MEDS: NON-FORMULARY ITEM 20 MG PO ×2 (08:01→18:08)
[2023-06-23] MEDS: LANTUS 0.149999999999999994 UNITS SC (08:04)
[2023-06-23] MEDS: MYLICON 80 MG PO (08:05)
[2023-06-23] MEDS: VITAMIN C 1250 MG PO (08:05)
[2023-06-23] MEDS: HYDREA 500 MG PO ×2 (08:05→19:51)
[2023-06-23] MEDS: NOVOLOG FLEXPEN 5 UNITS SC ×3 (08:06→18:23)
[2023-06-23] MEDS: NON-FORMULARY ITEM 80 MG PO (08:07)
[2023-06-23] MEDS: ZADITOR 1 DROP OPHTH ×3 (08:11→21:28)
--- NOTE | 2023-06-23 08:54 | CM ---
Patient with Dx Mast Cell Activation Syndrome flare. Plan efforts to transfer to [facility]. O2 4L. Receiving Subutex, IV Benadryl, IV Solumedrol, IVF.
CM continuing to follow for d/c needs.
Plan possible transfer to [facility].
[2023-06-23] MEDS: DUONEB 3 ML INH (09:58)
[2023-06-23] MEDS: ADRENALIN 0.299999999999999989 MG IM ×6 (10:11→20:30)
--- NOTE | 2023-06-23 10:33 | PTCARENOTE ---
Pt rang sanchez to alert staff of an episode. Upon assessment, pt with rigid limbs, eyes rolling back in her head, audible stridor, and diaphoretic. HR to 150's. Dr. Rich notified. PRN Benadryl, Dilaudid, Ativan IVP administered without effect.
Respiratory at bedside for neb treatment. Order received for IM Epi- given X2. Pt
--- NOTE | 2023-06-23 10:35 | PTCARENOTE ---
Pt rang sanchez to alert staff of an dystonia episode. Upon assessment, pt with rigid limbs, eyes rolling back in her head, audible stridor, coughing, increased work of breathing, flushed and diaphoretic. HR to 150's. Dr. Rich notified. YAN Quiroz,
Dilaudid, Ativan IVP administered without effect. Respiratory at bedside for neb treatment. O2 increased to 6L, sats in the low to mid 90's. Order received for IM Epi- given X2. Pt slightly calmer at this time yet tearful. Remains tachycardic. ICU
upgrade ordered by MD- awaiting transfer.
--- NOTE | 2023-06-23 11:10 | PTCARENOTE ---
Report to receiving RN. Transferred to ICU 3026 with all belongings. Step mother at bedside.
--- NOTE | 2023-06-23 11:20 | PTCARENOTE ---
Received pt from IMU via bed with 6 liters nasal cannula. Her face is bright red, and flushed. He step-mother is at the bedside packing the plethora of bags, assistive braces, and personal items fro transfer. Pt was informed of the plan of care to
transfer down the [place] and that once there I would get her settled and perform full system assessment. She is tremulous, RR 30's, HR 110-138. Right TL PICC with 0,.9nss @ 100ml/hr via one port, other prt with Benadryl @ 15mg/hr via another port.
There is an open port of her PICC that was flushed and patent. +pulses, trace L/E edema. Pt states she wears a back brace if she is going to stand. Breath sounds posteriorly CTA. She is coughing profusely, a dry hacking cough. +BSx4. Obese. Abdomen
with scattered ecchymosis. GJ tube with dressing CDI. G tube to gravity drain, J-tube clamped for meds. Incontinent of urine. [place] changed. Complete bath given. Wedge and pillow placed under her legs due to her back pain. She was oriented to the
ICU and the plan of care. Safe environment maintained.
[2023-06-23] MEDS: DILAUDID 0.5 MG IV (11:27)
[2023-06-23] MEDS: MIRALAX 17 GRAMS TUBE (11:53)
[2023-06-23] MEDS: NON-FORMULARY ITEM 180 MG PO ×2 (11:57→18:07)
[2023-06-23] MEDS: NON-FORMULARY ITEM 2 SPRAY NASAL (11:58)
[2023-06-23 12:04] LABS: Glucose - Point of Care 183 mg/dl (70-99)
[2023-06-23] MEDS: NOVOLOG FLEXPEN-LOW RESISTANCE 1 UNITS SC (12:07)
--- NOTE | 2023-06-23 12:08 | CON.INTV ---
Consultation
Consultation Request
Date/Time Consultation Requested: 06/23/2023-12 noon
Date/Time Consultation Performed: 06/23/2023-12:30 PM
Requesting Provider: Hospitalist
Performing Provider: Dr. Cagle
Reason for Consultation: Anaphylaxis, critical care management
Medical History
-
Chief Complaint: Anaphylaxis
History of Present Illness:
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
and chronic pain syndrome presented with mast cell activation/anaphylaxis requiring epinephrine, steroids, and intravenous Benadryl necessitating intensive care unit monitoring-research associate quality control qc consulted for anaphylaxis/mast cell activation
syndrome/critical care management 06/23/2023. She continues to feel shaky. She is asking for better Benadryl as well as Ativan. She has multiple triggers. She has some shortness of breath but no throat closure. She does not complain of a rash.
She complains of leg shakiness. She does not have any chest pain, pleurisy, chest congestion, productive cough, abdominal pain, nausea, vomiting.
Past Medical History
Past Medical History: None (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 POTS. Dopa sensitive dystonia. DVT/PE. Steroid-induced diabetes. Steroid-induced osteoporosis. Multiple compression fractures. Chronic pain syndrome. GERD.
Migraine headaches.)
Past Surgical History: None (Obstructive sleep apnea on AutoPap. 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 Restless leg syndrome. Insomnia. Asthma. Vocal cord dysfunction. Anxiety. Neurocardiogenic syncope.
Xmjhqj-Rzlgwe-hlhiiikqttyif type. Chronic vertigo. Raynaud's. IBS. Gastroparesis.)
Social History
Tobacco: Non-smoker
Alcohol: None
Drug: None
Personal: Single
Living: With Family
Occupational Exposures: No known asbestos exposure
Environmental Exposures: No known tuberculosis exposure
Family History
Family History: Reviewed & Not Pertinent
Allergies / Home Medications
Allergies
Allergy/AdvReac Type Severity Reaction Status Date / Time
dog dander Allergy Unknown Verified 06/11/23 21:07
escitalopram [From Lexapro] Allergy Unknown Verified 06/11/23 21:07
gabapentin Allergy Unknown Verified 06/11/23 21:07
gluten Allergy Unknown Verified 06/11/23 21:07
grass pollen Allergy Unknown Verified 06/11/23 21:07
house dust Allergy Unknown Verified 06/11/23 21:07
ibuprofen Allergy 'not Verified 06/11/23 21:07
supposed
to take
d/t
proteinuria'
lactose Allergy Nausea / Verified 06/11/23 21:07
Vomiting
lamotrigine [From Lamictal] Allergy Unknown Verified 06/11/23 21:07
mold Allergy Unknown Verified 06/11/23 21:07
montelukast [From Singulair] Allergy Unknown Verified 06/11/23 21:07
nortriptyline Allergy Tachycardia Verified 06/11/23 21:07
peanut Allergy Anaphylaxis Verified 06/11/23 21:07
soy Allergy Unknown Verified 06/11/23 21:07
topiramate [From Topamax] Allergy Unknown Verified 06/11/23 21:07
tree and shrub pollen Allergy Unknown Verified 06/11/23 21:07
weed pollen Allergy Unknown Verified 06/11/23 21:07
Home Medications
Medication Instructions Recorded Confirmed Last Taken Type
propranolol 10 mg tablet 10 mg feeding tube 04/16/15 06/23/23 03/24/23 History
TID@0600,1400,2200 Heart
disease/condition
cetirizine 10 mg tablet 10 mg feeding tube BID@1800,2200 11/03/20 06/23/23 03/23/23 History
Allergies
fluticasone furoate 27.5 2 spray intranasal DAILY@1000 11/03/20 06/23/23 03/24/23 History
mcg/actuation nasal Allergies
spray,suspension (Flonase
Sensimist)
ketotifen fumarate 0.025 % (0.035 1 drp BOTH EYES TID Eye condition 11/03/20 06/23/23 03/24/23 History
%) eye drops (Zaditor)
budesonide 0.5 mg/2 mL suspension 0.5 mg inhalation R BID@1000,2000 09/27/21 06/23/23 03/24/23 History
for nebulization Lung/breathing issues
diphenhydramine HCl 50 mg/mL 0 mg IV .CONTINUOUS Allergies 09/27/21 06/23/23 03/24/23 History
injection solution
diphenhydramine HCl 50 mg/mL 25 mg IV Q3HPRN PRN [facility] 09/27/21 06/23/23 06/18/22 18:05 History
injection solution reaction/anaphylaxis/dystonia
etonogestrel 0.12 mg-ethinyl 1 vag.ring VAG MONTHLY Hormonal 09/27/21 06/23/23 06/20/23 History
estradiol 0.015 mg/24 hr vaginal agent
ring (NuvaRing)
famotidine (PF) 20 mg/2 mL 40 mg IV Q12H@1000,2200 09/27/21 06/23/23 03/24/23 History
intravenous solution Gastrointestinal issue
prednisone 5 mg tablet 5 mg feeding tube BID@1000,1800 09/27/21 06/23/23 03/24/23 History
Anti-inflammatory
rabeprazole 20 mg tablet,delayed 20 mg PO BID@0930,1730 09/27/21 06/23/23 03/24/23 History
release (AcipHex) Gastrointestinal issue
cromolyn 100 mg/5 mL oral 200 mg PO .QID-TIMES BELOW mcas 10/02/21 06/23/23 03/24/23 History
concentrate
ferrous sulfate 325 mg (65 mg 325 mg PO HS Supplement 10/02/21 06/23/23 03/23/23 History
iron) tablet (FeroSul)
rimegepant 75 mg disintegrating 75 mg PO DAILYPRN PRN migraine 10/02/21 06/23/23 06/15/22 History
tablet (Nurtec ODT)
acetaminophen 650 mg 1,300 mg PO BID@1000,1800 Pain 05/13/22 06/23/23 03/24/23 History
tablet,extended release
baclofen 10 mg tablet 10 mg PO TID@0600,1400,2200 Muscle 05/13/22 06/23/23 03/24/23 History
Spasms
cholecalciferol (vitamin D3) 50 50 mcg PO DAILY@1000 Supplement 05/13/22 06/23/23 03/24/23 History
mcg (2,000 unit) tablet
imatinib 100 mg tablet (Gleevec) 200 mg PO DAILY@1400 [facility]AS 05/13/22 06/23/23 06/18/22 14:00 History
insulin lispro 100 unit/mL 0 - 5 sliding scale dose SC AC 05/13/22 06/23/23 06/18/22 18:00 History
subcutaneous pen Diabetes 0
lorazepam 2 mg/mL oral concentrate 2 mg sublingual Q6H PRN dystonia 05/13/22 06/23/23 06/18/22 History
simethicone 80 mg chewable tablet 80 mg PO DAILY Gastrointestinal 05/13/22 06/23/23 06/18/22 10:00 History
Issue
thiamine HCl (vitamin B1) 100 mg 100 mg PO DAILY@1000 Supplement 05/13/22 06/23/23 03/24/23 History
tablet
fexofenadine 180 mg tablet 180 mg PO BID@1000,1400 Allergies 06/18/22 06/23/23 03/24/23 History
carbidopa 25 mg-levodopa 100 mg 1.5 tab feeding tube BID@0600,1000 08/17/22 06/23/23 03/24/23 History
tablet (Sinemet) DYSTONIA
carbidopa 25 mg-levodopa 100 mg 2 tab feeding tube BID@1400,1800 08/17/22 06/23/23 03/23/23 History
tablet (Sinemet) DYSTONIA
ondansetron 4 mg disintegrating 4 mg PO Q8HPRN PRN mild nausea 08/17/22 06/23/23 Unknown History
tablet
Salt Stick 2 cap feeding tube PRN PRN POTS 02/11/23 06/23/23 Unknown History
ascorbic acid (vitamin C) 1,000 mg 1,200 mg PO DAILY Supplement 02/11/23 06/23/23 03/24/23 History
tablet (Vitamin C)
epinephrine 0.3 mg/0.3 mL 0.3 mg IM PRN PRN anaphylaxis 02/11/23 06/23/23 Unknown History
injection, auto-injector
ondansetron HCl (PF) 4 mg/2 mL 4 mg IV Q8H PRN severe 02/11/23 06/23/23 Unknown History
injection solution nausea/vomiting
Nss 1,000 ml IV DAILY 10am 03/24/23 06/23/23 Unknown History
Nss 1,000 ml IV DAILYPRN PRN SYMPTOMS 03/24/23 06/23/23 03/24/23 History
albuterol sulfate 2.5 mg/3 mL 2.5 mg inhalation R Q6HPRN PRN 06/11/23 06/23/23 Unknown History
(0.083 %) solution for nebulization anaphylaxis
buprenorphine HCl 2 mg sublingual 2 mg sublingual QID@00,06,12,18 06/11/23 06/23/23 Unknown History
tablet Pain
calcium citrate 200 mg 2 tab PO BID@1000,1800 Supplement 06/11/23 06/23/23 Unknown History
calcium-vitamin D3 6.25 mcg (250
unit) tablet
enoxaparin 100 mg/mL subcutaneous 90 mg SC BID@1000,2200 Blood Clot 06/11/23 06/23/23 Unknown History
syringe Prevention/Tx
hydromorphone 8 mg tablet 8 mg PO Q3H PRN severe pain 06/11/23 06/23/23 Unknown History
insulin glargine 100 unit/mL (3 15 unit SC DAILY Diabetes 06/11/23 06/23/23 Unknown History
mL) subcutaneous pen (Lantus
Solostar U-100 Insulin)
lorazepam 2 mg/mL oral concentrate 1 mg sublingual QID@00,06,12,18 06/11/23 06/23/23 Unknown History
dystonia
simethicone 80 mg chewable tablet 80 mg PO HS PRN gas 06/11/23 06/23/23 Unknown History
hydroxyurea 500 mg capsule (Hydrea) 500 mg PO DAILY@1000 [facility]AS 06/21/23 06/23/23 Unknown History
insulin lispro 100 unit/mL 5 unit SC AC Diabetes 06/23/23 06/23/23 Unknown History
subcutaneous pen (Humalog KwikPen
(U-100) Insulin)
methylprednisolone sodium succ 125 60 mg IV DAILYPRN PRN ANAPHYLAXIS 06/23/23 06/23/23 Unknown History
mg solution for injection
methylprednisolone sodium succ 40 40 mg IV BID MAST CELL ACTIVATION 06/23/23 06/23/23 06/20/23 10:00 History
mg/mL solution for injection SYNDROME
Review of Systems
-
Unable to Obtain full review of systems at this time due to: Other (Per HPI)
Vitals / Labs / Diagnostic Testing
Vital Signs
Temp Pulse Resp BP Pulse Ox
98.2 F 136 20 135/98 94
06/23/23 11:00 06/23/23 10:01 06/23/23 10:01 06/23/23 08:00 06/23/23 10:01
Lab Data
06/22/23 14:02
06/22/23 14:02
Diagnostic Testing:
Physical Exam
-
Exam:
Well-nourished and well-developed in no apparent distress
HEENT-atraumatic, normocephalic
Neck-supple, no JVD, no bruit, no stridor
Heart-regular rate and rhythm-no murmurs, rubs or gallops
Chest clear without wheezes or crackles
Abdomen-soft, nontender, nondistended, no hepatosplenomegaly
Extremities-no cyanosis, clubbing, edema and good peripheral pulses
Neurologically she was alert and oriented nonfocal but legs were shaking
Assessment
-
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
and chronic pain syndrome presented with mast cell activation/anaphylaxis requiring epinephrine, steroids, and intravenous Benadryl necessitating intensive care unit monitoring-research associate quality control qc consulted for anaphylaxis/mast cell activation
syndrome/critical care management 06/23/2023.
Assessment
Mast cell activation syndrome with flare
Mild leukocytosis
Macrocytosis-MCV 103.5
Hyperglycemia
Conditions present prior to admission:
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
POTS.
Dopa sensitive dystonia.
DVT/PE.
Steroid-induced diabetes.
Steroid-induced osteoporosis.
Multiple compression fractures.
Chronic pain syndrome.
GERD.
Migraine headaches.
Obstructive sleep apnea on AutoPap-last seen by Dr. Cagle 03/2021-now followed by Dr. Maria
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
Restless leg syndrome.
Insomnia.
Asthma.
Vocal cord dysfunction.
Anxiety.
Neurocardiogenic syncope.
Eaafdt-Skhumb-syplarbowmbxz type.
Chronic vertigo.
Raynaud's.
IBS.
Gastroparesis.
Covid 12/2021
Plan
Patient critically ill with ongoing mast cell destabilization flare
Supplemental oxygen as needed
Intubated mechanically ventilated if needed
Aspiration precautions
Incentive spirometry
Nebulizers if needed-currently not bronchospastic-has history of asthma-currently stable
Also has a history of vocal cord dysfunction-appears to be stable at this moment
AutoPap therapy at nighttime with oxygen-patient brought own machine
Patient will be taken care of for her mast cell flare-awaiting transfer to [place] as her administrative assistant Dr. Villanueva is at [place].
Hematology evaluation locally-correspondence reviewed-Dr. Blank reviewed the case with Dr. Villanueva-patient has been banned from admissions to [place], [facility] also refuses admissions stating they would not be able to
do anything else for her, case was also discussed with Dr. Saravanan gutierrez and the internal medicine hospitalist at [facility] and they also declined transfer. She also left message with [facility] group who specializes in mast cell disorders-Dr. Geovani Bernstein to
discuss the patient.
Cromolyn sodium will continue
Benadryl intravenously
Benadryl as needed
Ativan as needed
Methylprednisolone
DuoNebs
Continue with Gleevec
Hydrea will be increased to 500 mg twice daily
Allergy/immunology consultation recommended
Carbidopa/levodopa for her dystonia continues
Analgesia including Dilaudid per primary team-monitor for oversedation
DVT prophylaxis-on Lovenox
Nutrition
Early mobilization/physical therapy
Outpatient pulmonary/sleep disorders [facility]
Critical care statement: A total of 45 minutes of critical care time was provided for this patient today. This includes management of unstable vital signs, evaluation of the patient at bedside, reviewing the patient's pertinent medical records
including radiographs, management of anaphylaxis, epinephrine, Benadryl drip, microbiology, laboratory evaluations, and discussion with primary team, consultants, pharmacy, nutrition, physical therapy, case management, charge nurse, critical care
nursing, and respiratory therapy.
Diagnostic data:
Chest x-ray 01/16/2021-NAD
Chest x-ray 02/16/2023-lungs clear
Chest x-ray 06/20/2023-lungs clear, right PICC line in place
YJM-Wjxusd-1/19/2019-МАРИЯ-6, desaturation fidencio 91%, AutoPap
[facility] [place] 03/18/2019--06/23 SOREM
Data Reviewed
-
EKG: Report reviewed by me
Radiology: Report reviewed by me
CT Scan: Report reviewed by me
Medical Tests (Nuc Med, Echo etc): Report reviewed by me
Old Records: Reviewed
Critical Care Time (in minutes): 45
[2023-06-23] MEDS: PEPCID 40 MG IV ×2 (12:09→21:26)
[2023-06-23] MEDS: NSS (PRESERVATIVE FREE) 16 ML IV ×2 (12:10→21:27)
[2023-06-23] MEDS: VITAMIN B1 100 MG PO (12:12)
[2023-06-23] MEDS: VITAMIN D3 (cholecalciferol) 50 MCG PO (12:12)
[2023-06-23] MEDS: OSCAL 500 + D 500 MG PO ×2 (12:13→18:01)
--- NOTE | 2023-06-23 12:53 | PTCARENOTE ---
Discussed the plan of care and medication regimen with care team. Safe environment maintained.
[2023-06-23] MEDS: SINEMET 25-100 TUBE (13:06)
[2023-06-23] MEDS: TYLENOL 650 MG TUBE ×3 (13:11→23:45)
[2023-06-23] MEDS: SINEMET 25-100 2 TABLET TUBE ×2 (13:12→18:00)
[2023-06-23] MEDS: LOVENOX 90 MG SC ×2 (13:28→23:46)
[2023-06-23] MEDS: TYLENOL PO (13:36)
[2023-06-23] MEDS: ATIVAN 2 MG IV ×2 (13:42→20:05)
--- NOTE | 2023-06-23 14:00 | PTCARENOTE ---
Adjusted the head of the bed and provided pillows for either side of her torso/back. Pillows adjusted under her legs. Tremoring subsided but still present. She ate half her lunch tray. Safe environment maintained.
--- NOTE | 2023-06-23 17:11 | W.PN.UPDATE ---
Update Note
Progress Note Update
Case discussed with Drs. Carlos and Kay on a conference call via the [facility]. Dr. Villanueva reported that her flares have overall worsened since she was weaned off of the Fentanyl Patch. Dr. Villanueva also mentioned that the pt has
had 3-4 month hospitalizations. They are recommending management at tertiary care center ([facility]), likely ICU level of care to start.
--- NOTE | 2023-06-23 17:56 | W.PN.UPDATE ---
Update Note
Progress Note Update
Case discussed with Drs. Cagle who spoke to the team at [facility]. The patient is not being accepted at [facility]. Also of note, [facility] declined to accept the pt in transfer today also.
[2023-06-23] MEDS: NON-FORMULARY ITEM 200 MG PO (18:06)
[2023-06-23 18:16] LABS: Glucose - Point of Care 129 mg/dl (70-99)
[2023-06-23] MEDS: ZYRTEC TUBE (18:55)
--- NOTE | 2023-06-23 19:45 | PTCARENOTE ---
Rec'd pt resting in bed, denies pain at present, ST, BP stable, + pulses, + anasarca, O2 3 liters nc, lungs decr, sat 96, + bowel sounds, no bm, abd obese, soft, Gtube to str drainage, J tube clamped, no n/v, alana diet, purewick in place- yellow
uirne, benadryl gtt at 15ml/hr
--- NOTE | 2023-06-23 20:05 | PTCARENOTE ---
mast cell episode, tremulous, eyes deviate back,bronchospasm, diaphoretic, total of 3 epi im, ativan total 3mg, benadryl total 50mg, dilaudid 2mg given, after episode pt remains flushed
[2023-06-23] MEDS: VENTOLIN NEBULES 2.5 MG INH (20:13)
[2023-06-23] MEDS: NSS (PRESERVATIVE FREE) 0.5 ML IV (20:45)
[2023-06-23] MEDS: FEOSOL 325 MG PO (21:24)
[2023-06-23 21:32] LABS: Glucose - Point of Care 272 mg/dl (70-99)
[2023-06-23] MEDS: ZYRTEC 10 MG TUBE (21:40)
[2023-06-23] MEDS: NOVOLOG FLEXPEN 2 UNITS SC (21:41)
[2023-06-23] MEDS: ATIVAN 1 MG TUBE (23:45)
[2023-06-24] VITALS (28 sets, daily range): BP systolic 108–155; BP diastolic 63–132; BMI 33.7
--- NOTE | 2023-06-24 | PTCARENOTE ---
Addendum entered by Mimi Garcia RN 06/24/23 00:46:
uses own cpap at night
Original Note:
awakened from sleep, sys reviewed
--- NOTE | 2023-06-24 03:42 | PTCARENOTE ---
selina reviewed, CHG valeria castillo changed
[2023-06-24] MEDS: VENTOLIN NEBULES 2.5 MG INH (03:57)
[2023-06-24] MEDS: BENADRYL 25 MG IV ×5 (03:59→21:34)
[2023-06-24] MEDS: ATIVAN 2 MG IV ×5 (04:00→21:34)
--- NOTE | 2023-06-24 04:00 | PTCARENOTE ---
mast cell symtoms, ativan, dilaudid and benadryl given- lasted 15 min
[2023-06-24] MEDS: DILAUDID 2 MG IV ×5 (04:02→21:33)
[2023-06-24] MEDS: SINEMET 25-100 1.5 TABLET TUBE ×2 (05:22→10:12)
[2023-06-24] MEDS: SUBUTEX 2 MG SL ×4 (05:22→23:29)
[2023-06-24] MEDS: ATIVAN 1 MG TUBE ×2 (05:22→11:43)
[2023-06-24] MEDS: TYLENOL 650 MG TUBE ×4 (05:22→23:29)
[2023-06-24] MEDS: LIORESAL 10 MG PO ×3 (05:23→22:07)
[2023-06-24] MEDS: INDERAL 10 MG TUBE ×3 (05:23→22:07)
[2023-06-24] MEDS: SOLU-MEDROL PF 50 MG IV ×2 (05:27→17:55)
[2023-06-24 06:23] LABS: Hematocrit 37.6 % (37.0-47.0); Hemoglobin 12.3 g/dL (12.0-16.0); Mean Corp Hgb Conc. 32.7 g/dL (33.0-37.0); Mean Corpuscular Hgb 33.3 pg (27.0-31.0); Mean Corpuscular Volume 101.9 fL (81.0-99.0); Mean Platelet Volume 9.9 fL (7.4-10.4); Platelet Count 242 10^3/uL (130-400); Red Blood Cell Count 3.69 10^6/uL (4.20-5.40); Red Cell Dist. Width 14.7 % (11.5-14.5); White Blood Cell Count 12.9 10^3/uL (4.8-10.8)
--- NOTE | 2023-06-24 07:35 | W.PN.HOSP.TC ---
Addendum entered and electronically signed by Kelvin Rich MD 06/24/23 15:51:
Acute hypoxemic respiratory failure
Original Note:
Today's Communication/Plan
-
see bold
Assessment / Plan
Assessment / Plan
32-year-old female past medical history of who presented with a mast cell flare.�Currently awaiting transfer to [place] as per her utility manager Dr. Villanueva at [place].
Gen: remains NAD, AAOx3, appears chronically ill, cushingoid appearance.
Eyes: EOMI, PERRLA, no scleral icterus.
Neck: supple.
CV: continues to remain RRR, +S1/S2, no m/r/g.
Resp: remains CTAB anteriorly, no rales, wheezes, or rhonchi.
Abd: +BS, soft, NT, ND
Skin: No rashes.
Neuro: CN 2-12 intact, non-focal.
Psych: Normal mood and affect.
Mast Cell Activation Syndrome flare, with DOPA-Responsive Dystonia, Recurrent Anaphylaxis/Mast Cell Flare Episodes:
-cont maintenance medications including standing Ativan / Benadryl (pump), etc.
-cont Methylprednisolone 50mg IV Q12H, Benadryl infusion, PRN DuoNebs
-cont Gleevec
-cont carbidopa-levodopa for dystonia
-Patient has had multiple flares while hospitalized requiring multiple doses of epinephrine
-Heme-onc following
-on 06/23/23 pt was declined transfer to [facility]
-increase Cromolyn Sodium to 300mg QID
-c/s IR for GJ-tube check and concerns for PICC positioning
Other problems:
POTS disease: Continue propranolol
Chronic Nausea/Esophageal Dysmotility: Continue diet as tolerated. Continue G-tube to gravity for chronic nausea. Meds via J-tube. She is scheduled to have GJ tube exchange within a few days
Steroid-Induced DM2: cont Lantus/premeal Novology/SSI/accuchecks
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
h/o DVT/PE: cont Lovenox 1mg/kg SC Q12H
h/o Migraine headaches: Continue Nurtec
Case discussed with Dr. Cagle and RN.
FULL/Lovenox
Total time spent on today's encounter was 51 minutes which included time spent in counseling the patient/family regarding diagnosis and treatment plan as listed above, goals of care, and symptom management. Case was discussed with nursing staff,
specialists, and care coordinators/case management. All labs and imaging personally reviewed by me. Remainder the time spent in detailed review of previous records, lab data, imaging, and other medical provider documentation.
Anticipated Discharge: > 48 hours
Subjective/Interval History
-
Date of Service: June 24, 2023
Objective Data
-
Labs:
Laboratory Results
06/24/23 06/24/23
06:01 06:51
WBC 12.9 H
Hgb 12.3
Hct 37.6
Plt Count 242
Sodium Cancelled Pending
Potassium Cancelled Pending
Chloride Cancelled Pending
Carbon Dioxide Cancelled Pending
BUN Cancelled Pending
Creatinine Cancelled Pending
Glucose Cancelled Pending
Calcium Cancelled Pending
Vital Signs:
Vital Signs
Temp Pulse Resp BP Pulse Ox
98.6 F 97 26 145/91 97
06/24/23 03:42 06/24/23 06:00 06/24/23 06:00 06/24/23 06:00 06/24/23 06:00
I&O
06/23/23 06/24/23 06/25/23
06:59 06:59 06:59
Intake Total 2370 / 2370 3585 / 3585
Output Total 3550 / 3550 3540 / 3540
Balance -1180 / -1180 45 / 45
--- NOTE | 2023-06-24 07:45 | W.PN.INTV ---
Today's Communication / Plan
Recommendations
Supplemental oxygen
Benadryl drip
Ativan
Steroids
Increase cromolyn sodium
Lidoderm patch for back
Physical and Occupational Therapy
Assessment
-
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
and chronic pain syndrome presented with mast cell activation/anaphylaxis requiring epinephrine, steroids, and intravenous Benadryl necessitating intensive care unit monitoring-mobile paramedical examiner consulted for anaphylaxis/mast cell activation
syndrome/critical care management 06/23/2023.
Assessment
Mast cell activation syndrome with flare
Mild leukocytosis
Macrocytosis-MCV 103.5
Hyperglycemia
Conditions present prior to admission:
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
POTS.
Dopa sensitive dystonia.
DVT/PE.
Steroid-induced diabetes.
Steroid-induced osteoporosis.
Multiple compression fractures.
Chronic pain syndrome.
GERD.
Migraine headaches.
Obstructive sleep apnea on AutoPap-last seen by Dr. Cagle 03/2021-now followed by Dr. Maria
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
Restless leg syndrome.
Insomnia.
Asthma.
Vocal cord dysfunction.
Anxiety.
Neurocardiogenic syncope.
Yvadjn-Fwvdfc-kvpxaluoqtpia type.
Chronic vertigo.
Raynaud's.
IBS.
Gastroparesis.
Covid 12/2021
Plan
Critically ill with ongoing mast cell destabilization flare
Supplemental oxygen as needed
Intubated mechanically ventilated if needed
Aspiration precautions
Incentive spirometry
Nebulizers if needed-currently not bronchospastic-has history of asthma-currently stable
Also has a history of vocal cord dysfunction-appears to be stable at this moment
AutoPap therapy at nighttime with oxygen-patient brought own machine
Patient will be taken care of for her mast cell flare-awaiting transfer to [place] as her waste water treatment plant operator Dr. Villanueva is at [place]-Dr. Cagle reviewed the case with [facility] pulmonary/mobile paramedical examiner on 06/23/2023 and they would not accept
patient as stated they would not have anything to offer-minimal hematology and allergy consultation and recommended checking with [facility] which dosed on staff already has
Hematology evaluation locally-correspondence reviewed-Dr. Blank reviewed the case with Dr. Villanueva-patient has been banned from admissions to [place], [facility] also refuses admissions stating they would not be able to
do anything else for her, case was also discussed with Dr. Saravanan gutierrez and the internal medicine hospitalist at [facility] and they also declined transfer. She also left message with [facility] group who specializes in mast cell disorders-Dr. Geovani Bernstein to
discuss the patient.
Cromolyn sodium will continue-increased doses
Benadryl intravenously
Benadryl as needed
Ativan as needed
Methylprednisolone
DuoNebs
Continue with Gleevec
Hydrea will be increased to 500 mg twice daily
Allergy/immunology consultation recommended
Carbidopa/levodopa for her dystonia continues
Analgesia including Dilaudid per primary team-monitor for oversedation
DVT prophylaxis-on Lovenox
Nutrition
Early mobilization/physical therapy consult as well as Occupational Therapy consult
Outpatient pulmonary/sleep disorders skiqqj-kg-AlDr. Law
Reviewed with Dr. Rich at length
Critical care statement: A total of 40 minutes of critical care time was provided for this patient today. This includes management of unstable vital signs, evaluation of the patient at bedside, reviewing the patient's pertinent medical records
including radiographs, management of anaphylaxis, epinephrine, Benadryl drip, microbiology, laboratory evaluations, and discussion with primary team, consultants, pharmacy, nutrition, physical therapy, case management, charge nurse, critical care
nursing, and respiratory therapy.
Diagnostic data:
Chest x-ray 01/16/2021-NAD
Chest x-ray 02/16/2023-lungs clear
Chest x-ray 06/20/2023-lungs clear, right PICC line in place
[facility]-Lrcfrk-6/19/2019-МАРИЯ-6, desaturation fidencio 91%, AutoPap
MSLT Caodaism 03/18/2019--06/23 SOREM
Subjective Dataa
Subjective Data
Date of Service:
Date of Service: June 24, 2023
Chief Complaint: Insole Presser Follow Up and Pulmonary Follow Up
Subjective:
An episode of anaphylactoid like reaction requiring epinephrine, this morning feels 'aura' and denies any shortness of breath, chest congestion, productive cough, chest pain or abdominal pain
Review of Systems
General: Other (Per HPI)
Objective Data
Data Reviewed
Vital Signs / I&O / Oxygen:
Vital Signs
Temp Pulse Resp BP Pulse Ox
98.6 F 97 26 145/91 97
06/24/23 03:42 06/24/23 06:00 06/24/23 06:00 06/24/23 06:00 06/24/23 06:00
Intake and Output
06/23/23 06/24/23 06/25/23
06:59 06:59 06:59
Intake Total 2370 / 2370 3585 / 3585
Output Total 3550 / 3550 3540 / 3540
Balance -1180 / -1180 45 / 45
SaO2 97
Nasal Cannula flow liters per 3
minute
Physical Exam
General: Respiratory Distress (n), Comfortable and Other (No stridor)
HEENT: Normocephalic and Anicteric
Cardiovascular: Regular Rhythm and Murmur
Respiratory: Wheeze (n), Crackles (n), Rhonchi (n), Non-Labored Respirations and Accessory Resp Muscle Use (n)
GI: Soft, Non Distended and Non Tender
Neurology: Awake, Alert and No Motor Deficits
Skin: Warm, Good Color, Cyanosis (n), Jaundice (n) and Rash (n)
Labs/Micro/Reports
Lab Data
06/24/23 06:01
--- NOTE | 2023-06-24 08:10 | PTCARENOTE ---
Received pt awake and alert. Right TL PICC with 0.9NSS @ 100ml/hr and Benadryl @ 15mg/hr, other port flushed and patent. Palpable peripheral pulses. L/E edema. Mood face. Tolerating 3 liters nasal cannula. Breath sounds posteriorly diminished in the
bases. Oxygen saturation 97%. +BSX4. No BM X several days now. G tube to gravity drain for light brown secretions. J tube clamped for medication administration. Dressing CDI, secured with tape. Purwick intact. She voids large volumes of urine.
Informed of the plan of care. She verbalized her concern for changing out her G-J tube. She also asked for a lidocaine patch forher lower back. Will discuss with the team. Safe environment maintained. Supportive care provided.
[2023-06-24] MEDS: NON-FORMULARY ITEM 1 UNIT PO ×3 (08:12→22:09)
[2023-06-24] MEDS: NON-FORMULARY ITEM 20 MG PO ×2 (08:12→18:01)
[2023-06-24] MEDS: NOVOLOG FLEXPEN 5 UNITS SC (08:16)
[2023-06-24] MEDS: NOVOLOG FLEXPEN-LOW RESISTANCE 2 UNITS SC ×2 (08:17→12:56)
[2023-06-24] MEDS: NON-FORMULARY ITEM 80 MG PO (08:19)
[2023-06-24 08:20] LABS: Glucose - Point of Care 221 mg/dl (70-99)
[2023-06-24] MEDS: ZADITOR 1 DROP OPHTH ×3 (08:21→22:11)
[2023-06-24] MEDS: MYLICON 80 MG PO (08:30)
[2023-06-24] MEDS: MIRALAX 17 GRAMS TUBE (08:31)
[2023-06-24] MEDS: HYDREA 500 MG PO ×2 (08:31→19:37)
[2023-06-24] MEDS: LANTUS 0.149999999999999994 UNITS SC (08:31)
[2023-06-24] MEDS: VITAMIN C 1250 MG PO (08:31)
[2023-06-24] MEDS: NSS 1000 IV ×3 (08:32→23:29)
[2023-06-24] MEDS: ZOFRAN 4 MG IV ×2 (08:34→22:21)
[2023-06-24] MEDS: ADRENALIN 0.299999999999999989 MG IM ×4 (09:40→21:52)
--- NOTE | 2023-06-24 09:40 | PTCARENOTE ---
Episode of MAST flare exhibiting HR 140's, generalized stiffness and tremoring whole body, curling of wrists inward, eyes rolling back, increased RR associated with dry hacking cough, urinary incontinence, & she is able to talk during these episodes
and make her needs known. Ativan 2mg IV, Benadryl 25mg IV, hydromorphone 2mg IV and Epi 0.03mg IM administered. Symptoms subsided in approximately 15 minutes. RN remained at the bedside providing supportive care. Repositioned in the bed. Will
continue to monitor. She requested Lidocaine patch for lower back pain.
[2023-06-24] MEDS: LOVENOX 90 MG SC ×2 (09:48→21:57)
[2023-06-24] MEDS: NON-FORMULARY ITEM 1 SPRAY NASAL (09:51)
[2023-06-24] MEDS: NON-FORMULARY ITEM 180 MG PO ×2 (09:51→13:01)
[2023-06-24] MEDS: PEPCID 40 MG IV ×2 (10:11→21:49)
[2023-06-24] MEDS: VITAMIN B1 100 MG TUBE (10:12)
[2023-06-24] MEDS: VITAMIN D3 (cholecalciferol) 50 MCG PO (10:13)
[2023-06-24] MEDS: OSCAL 500 + D 500 MG PO ×2 (10:13→17:54)
[2023-06-24] MEDS: NSS (PRESERVATIVE FREE) 16 ML IV ×2 (10:14→21:48)
--- NOTE | 2023-06-24 10:30 | W.PN.ONC2 ---
Today's Communication / Plan
-
- Increase cromolyn sodium to 300mg QID; go up to 400 mg QID if tolerated today.
- Cromolyn sodium can have a maximum daily dose of 40 mg/kg/day - ceiling of 4000 mg/day or 1000 mg QID for Cauller; plenty of room to go up.
Impression
Impression
* Mast cell activation syndrome, with recurrent anaphylaxis
* DOPA-responsive dystonia
Plan
Plan
Mast cell activation syndrome, with recurrent anaphylaxis.
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
- Follows Dr. MONTRELL Villanueva, heme/onc, at [facility].
- She was diagnosed in 2019, and has been difficult to manage.
- She has tried and failed several modalities.
- Currently managed with diphenhydramine drip, cromolyn sodium, imatinib, hydroxyurea, methylprednisolone, lorazepam, cetirizine and fexofenadine.
- She has multiple triggers for mast cell degranulation flare-ups, and usually experiences dystonic reactions and anaphylaxis.
- She came to the emergency on 06-20-23, after she required 4 epinephrine IM injections for anaphylaxis in 1 day.
- More regularly, she requires 1-2 shots per day, and has a protocol of coming to the emergency on days she requires 3+ shots.
- Considering her unusual presentation of an already rare condition, tried contacting [facility] and [facility] for transfers.
- Case was discussed with Dr. Villanueva on 06-23-23; patient has been banned from admission to [place] for her usual presentations.
- [facility] also refused admission stating they would not be able to do anything else for her.
- Case was discussed with Dr. Saravanan Cervantes and the internal medicine hospitalist attending at [facility] on 06-23-23; they also declined transfer.
- Contacted the Mast Cell research group of Dr. Geovani Dixon at [facility], who could not offer medical advice.
- [facility] also cannot offer medical advice if she is not a patient there.
- Called [facility]'s [facility]IA[facility], who asked to email details of her condition; they can review and get back to us.
- Dr. Villanueva recommended increasing hydroxyurea to 500 mg twice a day from 500 mg once a day - done.
- She is on 200 mg QID dosing of cromolyn sodium.
- Increase that to 300mg QID; go up to 400 mg QID if tolerated.
- Cromolyn sodium can have a maximum daily dose of 40 mg/kg/day - [place] is currently only at 8 mg/kg/day, which is the minimum dosing and probably subtherapeutic for her condition.
- She has a ceiling of 4000 mg/day or 1000 mg QID; plenty of room to go up; up-titrate as tolerated.
- Not sure if either or both methylprednisolone and diphenhydramine can be increased safely at this point.
- Allergy/immunology input appreciated.
DOPA-responsive dystonia
- Unclear if unrelated to the mast cell activation syndrome.
- Mast cell flare-ups are often preceded by the onset of dystonic symptoms.
- On baclofen and carbidopa/levodopa, which have helped.
- Continue.
Subjective/Objective
Chief Complaint
Mary Ontiveros, 32 year-old female, with medical history of mast cell activation syndrome, postural orthostatic tachycardia syndrome, dystonia, steroid-induced diabetes mellitus, steroid-induced osteoporosis, multiple compression fractures, bedbound,
chronic pain syndrome, GERD, migraines, history of DVT and PE presented to the emergency on 06-20-23 with a mast cell degranulation flare-up. She was diagnosed with mast cell activation syndrome in 2019, and has required numerous hospital and ICU
admissions since then. She usually experiences dystonic reaction and anaphylaxis during her flare-ups.
She follows Dr. MONTRELL Villanueva, heme/onc, at [facility] where she is banned from hospitalizations pertaining to her mast cell disorder complications. She has a protocol in place that Dr. Villanueva came up with: to go to the emergency if she
has anaphylaxis 3+ times requiring EpiPen injections in 1 day. She had to use an EpiPen 4x on the day she came to the emergency for the present admission. She has tried and failed several modalities. Currently managed with diphenhydramine drip,
cromolyn sodium, imatinib, hydroxyurea, methylprednisolone, lorazepam, baclofen, carbidopa/levodopa, cetirizine and fexofenadine. 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
biopsy.
Subjective
Vital Signs:
Vital Signs
Temp Pulse Resp BP Pulse Ox
98.6 F 97 26 145/91 97
06/24/23 03:42 06/24/23 06:00 06/24/23 06:00 06/24/23 06:00 06/24/23 06:00
Lab Results:
Laboratory Data
WBC 12.9 10^3/uL (4.8-10.8) H 06/24/23 06:01
Hgb 12.3 g/dL (12.0-16.0) 06/24/23 06:01
Plt Count 242 10^3/uL (130-400) 06/24/23 06:01
eGFR Cancelled 06/24/23 06:01
Physical Exam
HEENT: Moist Mucous Membranes
Cardiology: Normal Sinus Rhythm, S1 and S2
Pulmonary: Clear
GI: Soft, Normal Bowel Sounds, Distended and No Organomegaly
Extremities: Pulses Present
Neuro: Non Focal
Review of Systems
Review of Systems
Constitutional: Reports Fatigue
Respiratory: Reports Dyspnea
Gastrointestinal: Reports Nausea/Vomiting
Neurological: Reports Headache
Psychiatric: Reports Depression
[2023-06-24] MEDS: BENADRYL 250 MG IV (11:31)
[2023-06-24 12:01] LABS: Glucose - Point of Care 222 mg/dl (70-99)
[2023-06-24] MEDS: NOVOLOG FLEXPEN 7 UNITS SC ×2 (12:57→17:43)
[2023-06-24] MEDS: GASTROCROM 100 MG TUBE ×3 (13:00→22:08)
[2023-06-24] MEDS: NON-FORMULARY ITEM 200 MG PO (13:02)
[2023-06-24] MEDS: SINEMET 25-100 2 TABLET TUBE ×2 (13:03→17:54)
[2023-06-24] MEDS: DILAUDID 0.5 MG IV (13:13)
--- NOTE | 2023-06-24 15:00 | PTCARENOTE ---
Pt transferred to [facility] via bed with her neck and back brace on, tele and oxygen 3 liters nasal cannula. She was premedicated with Benadryl, hydromorphone, and Ativan via right TL PICC. Benadryl and IVF unchanged.
--- NOTE | 2023-06-24 15:24 | PN.CDI ---
CDI
- -
CDI:
Physician Documentation Request
Admit Date: 06/20/23 23:55
Dear Doctor Hilario,
Clinical Indicators:
Patient admitted with Mast Cell Activation Syndrome flare.
2/ RN notes: (10:35) '...increased work of breathing, flushed and diaphoretic..O2 increased to 6L, sats in the low
to mid 90's'
(11:20) '...RR 30's...'
2/5 Transfer to ICU
02 requirements:
06/23/23
10:01 06/23/23
12:00 06/23/23
13:15
Nasal Cannula flow liters per minute 6 6 6
Please clarify which of the following accurately represents the patient's respiratory status:
Acute hypoxic respiratory failure
Hypoxia only
Other, please specify
Additional information for Respiratory Failure:
Recognized criteria for Respiratory Failure (Source: [facility] Mar 2013)
ABGs: (1 or more) Symptoms Please indicate type if known
1. p)2 <60 or RA SPO2 <91% on RA 1. Tachypnea, SOB, dyspnea Hypoxic
2. pCO2 50 and pH <7.35 2. Use of accessory muscles Hypercapnic
3. pO2 decrease of pCO2 increase by 3. Pallor or cyanosis Hypoxic and Hypercapnic
10 mmHg from baseline if known 4. Anxiety or restlessness Unable to determine
5. Unable to speak in full sentences
Supplemental O2 of > 40% (5LPM) Intubation is not required
Use of terms such as suspected, likely, concern for, or probable (associated with a specific diagnosis that is being evaluated, monitored, or treated as if it exists) are acceptable and can be coded in the inpatient setting, when documented at the
time of discharge.
Thank you,
SAIRA Castrejon RN
CDI Specialist
available via tiger text
Please use your independent medical judgment in providing your response.
[2023-06-24] MEDS: LIDOCAINE 4% PATCH 1 PATCH TOPICAL (16:06)
--- NOTE | 2023-06-24 16:17 | PTCARENOTE ---
S/P arrival back from IR to her room. She was conversive and requesting ice pack to abdomen another MAST flare up. Lorazepam and Hydromorphone administered.
[2023-06-24] MEDS: DUONEB 3 ML INH ×2 (16:24→21:37)
--- NOTE | 2023-06-24 17:13 | PTCARENOTE ---
Spoke with daughter Ting on the phone and provided an update regarding antibiotic changes per ID based on recent CT scan. She is aware that her mother is not able to remain alert long enough for a swallowing evaluation today. Will hold off on DHT
placement in hopes that she will be able to participate in swallowing evaluation tomorrow.
[2023-06-24 17:31] LABS: Glucose - Point of Care 113 mg/dl (70-99)
[2023-06-24] MEDS: NOVOLOG FLEXPEN-LOW RESISTANCE SC (17:44)
[2023-06-24] MEDS: NON-FORMULARY ITEM 200 UNIT PO (17:46)
[2023-06-24] MEDS: ATIVAN 1 MG SL ×2 (18:08→23:29)
[2023-06-24] MEDS: ZYRTEC 10 MG TUBE ×2 (18:08→22:15)
--- NOTE | 2023-06-24 19:53 | PTCARENOTE ---
Rec'd pt resting in bed, family at bedisde, cooperative, ST, weak distal pulses, skin warm/dry, denies chest pain, O2 3 liters nc, lungs decr, sat 97, + bowel sounds, abd obese, soft, nontender, g tube to str drainage bag, J tube clamped for meds,
no n/v, purewick in place- voiding yellow urine
[2023-06-24 21:29] LABS: Blood Urea Nitrogen 14 mg/dl (7-17); Calcium 9.1 mg/dl (8.4-10.2); Carbon Dioxide 31 mmol/L (22-30); Chloride 98 mmol/L (98-107); Estimated Creatinine Clearance > 125 ml/min; Glucose 228 mg/dl (70-99); Magnesium 2.3 mg/dl (1.6-2.3); Potassium 4.3 mmol/L (3.5-5.1); Sodium 134 mmol/L (135-145); eGFR > 60.00
[2023-06-24 21:33] LABS: Glucose - Point of Care 237 mg/dl (70-99)
--- NOTE | 2023-06-24 21:35 | PTCARENOTE ---
Mast episode- given, dilaudid, ativan, benadryl & 2 doses of Epi- lasted till 2200
[2023-06-24] MEDS: NOVOLOG FLEXPEN 3 UNITS SC (21:45)
[2023-06-24] MEDS: FEOSOL 325 MG PO (22:07)
--- NOTE | 2023-06-24 22:20 | PTCARENOTE ---
zofran 4mg iv given for nausea
--- NOTE | 2023-06-24 23:32 | PTCARENOTE ---
sys reviewed, changes noted, CHG bath done, linens changed
[2023-06-25] VITALS (24 sets, daily range): BP systolic 116–171; BP diastolic 76–137; BMI 33.5
[2023-06-25] MEDS: BENADRYL 250 MG IV ×2 (02:46→18:37)
[2023-06-25] MEDS: ATIVAN 2 MG IV ×4 (03:14→20:33)
[2023-06-25] MEDS: DILAUDID 2 MG IV ×4 (03:14→20:59)
[2023-06-25] MEDS: BENADRYL 25 MG IV ×5 (03:15→20:33)
--- NOTE | 2023-06-25 03:15 | PTCARENOTE ---
after placed on bedpan- unsuccessful attempt to have BM, pt requested pain meds for her back, after informing her that she was only due for 0.5mg dilaudid now, she said she was starting her mast cell attack, dilaudid 2mg, ativan 2mg benadryl 25mg &
epi 0.3 x 1 given w/ relief of attck in 15min
[2023-06-25] MEDS: VENTOLIN NEBULES 2.5 MG INH (03:17)
[2023-06-25] MEDS: ADRENALIN 0.299999999999999989 MG IM ×6 (03:19→20:44)
[2023-06-25] MEDS: ATIVAN 1 MG SL ×4 (05:59→23:47)
[2023-06-25] MEDS: SINEMET 25-100 1.5 TABLET TUBE ×2 (06:00→10:00)
[2023-06-25] MEDS: LIORESAL 10 MG PO ×3 (06:00→21:04)
[2023-06-25] MEDS: INDERAL 10 MG TUBE ×3 (06:01→21:03)
[2023-06-25] MEDS: TYLENOL 650 MG TUBE ×4 (06:02→23:47)
[2023-06-25] MEDS: SUBUTEX 2 MG SL ×4 (06:02→23:47)
[2023-06-25] MEDS: SOLU-MEDROL PF 50 MG IV ×2 (06:05→18:39)
[2023-06-25] MEDS: NOVOLOG FLEXPEN-LOW RESISTANCE 1 UNITS SC ×2 (07:48→16:56)
[2023-06-25] MEDS: NOVOLOG FLEXPEN 7 UNITS SC ×3 (07:49→16:55)
--- NOTE | 2023-06-25 07:50 | W.PN.INTV ---
Today's Communication / Plan
Recommendations
Slowly increase cromolyn sodium up to 1000 mg 4 times daily
Hydromorphone/Ativan/Benadryl as needed
Psychiatry evaluation-depression, posttraumatic, etc.
Assessment
-
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
and chronic pain syndrome presented with mast cell activation/anaphylaxis requiring epinephrine, steroids, and intravenous Benadryl necessitating intensive care unit monitoring-sweatband shaper consulted for anaphylaxis/mast cell activation
syndrome/critical care management 06/23/2023.
Assessment
Mast cell activation syndrome with flare
Mild leukocytosis
Macrocytosis-MCV 103.5
Hyperglycemia
Conditions present prior to admission:
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
POTS.
Dopa sensitive dystonia.
DVT/PE.
Steroid-induced diabetes.
Steroid-induced osteoporosis.
Multiple compression fractures.
Chronic pain syndrome.
GERD.
Migraine headaches.
Obstructive sleep apnea on AutoPap-last seen by Dr. Cagle 03/2021-now followed by Dr. Maria
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
Restless leg syndrome.
Insomnia.
Asthma.
Vocal cord dysfunction.
Anxiety.
Neurocardiogenic syncope.
Ptgrzt-Pfmrhw-gqfaoxygtpjxy type.
Chronic vertigo.
Raynaud's.
IBS.
Gastroparesis.
Covid 12/2021
Plan
Continues to be critically ill with ongoing mast cell destabilization flare
Supplemental oxygen as needed
Intubated mechanically ventilated if needed
Aspiration precautions
Incentive spirometry
Nebulizers if needed-currently not bronchospastic-has history of asthma-currently stable
Also has a history of vocal cord dysfunction-appears to be stable at this moment
AutoPap therapy at nighttime with oxygen-patient brought own machine
Patient will be taken care of for her mast cell flare-awaiting transfer to [place] as her collar sewer Dr. Villanueva is at [place]-Dr. Cagle reviewed the case with [facility] pulmonary/sweatband shaper on 06/23/2023 and they would not accept
patient as stated they would not have anything to offer-minimal hematology and allergy consultation and recommended checking with [facility] which dosed on staff already has
Hematology evaluation locally-correspondence reviewed-Dr. Blank reviewed the case with Dr. Villanueva-patient has been banned from admissions to [place], [facility] also refuses admissions stating they would not be able to
do anything else for her, case was also discussed with Dr. Saravanan gutierrez and the internal medicine hospitalist at [facility] and they also declined transfer. She also left message with [facility] group who specializes in mast cell disorders-Dr. Geovani Bernstein to
discuss the patient.
Cromolyn sodium will continue-increased doses up to 1000 mg 4 times daily
Benadryl intravenously-continues as well as boluses as needed
Ativan continues as needed
Methylprednisolone without change
DuoNebs
Continue with Gleevec
Hydrea-to be increased to 500 mg twice daily
Allergy/immunology consultation recommended
Percutaneous G/J-tube replaced
Carbidopa/levodopa for her dystonia continues
Analgesia including Dilaudid per primary team-monitor for oversedation
Psychiatric evaluation recommended-patient reports seeing mental health professionals multiple times in the past and is currently on 2 separate Zoom therapies weekly
DVT prophylaxis-on Lovenox
Nutrition
Early mobilization/physical therapy consult as well as Occupational Therapy consult
Outpatient pulmonary/sleep disorders gtrkij-wn-FwDr. Law
Dr. Cagle reviewed with mother-Bobby on 06/24/2023-updated current clinical situation, prognosis, and treatment plan
Critical care statement: A total of 42 minutes of critical care time was provided for this patient today. This includes management of unstable vital signs, evaluation of the patient at bedside, reviewing the patient's pertinent medical records
including radiographs, management of anaphylaxis, epinephrine, Benadryl drip, microbiology, laboratory evaluations, and discussion with primary team, consultants, pharmacy, nutrition, physical therapy, case management, charge nurse, critical care
nursing, and respiratory therapy.
Diagnostic data:
Chest x-ray 01/16/2021-NAD
Chest x-ray 02/16/2023-lungs clear
Chest x-ray 06/20/2023-lungs clear, right PICC line in place
[facility]-Acrneu-1/19/2019-МАРИЯ-6, desaturation fidencio 91%, AutoPap
MSLT Christianity 03/18/2019--2 SOREM
Subjective Dataa
Subjective Data
Date of Service:
Date of Service: June 25, 2023
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
Subjective:
Several additional reactions, this morning feeling all right, no complaints of shortness of breath, throat tightness, no complaints of abdominal pain
Review of Systems
General: Other (Per HPI)
Objective Data
Data Reviewed
Vital Signs / I&O / Oxygen:
Vital Signs
Temp Pulse Resp BP Pulse Ox
97.5 F 97 15 140/89 95
06/25/23 04:41 06/25/23 06:01 06/25/23 06:00 06/25/23 06:01 06/25/23 06:00
Intake and Output
06/24/23 06/25/23 06/26/23
06:59 06:59 06:59
Intake Total 3585 / 3700 3890 / 3890
Output Total 3540 / 3540 4350 / 4350
Balance 45 / 160 -460 / -460
SaO2 95
Nasal Cannula flow liters per 3
minute
Physical Exam
General: Respiratory Distress (n), Comfortable and Other (No stridor)
HEENT: Normocephalic and Anicteric
Cardiovascular: Regular Rhythm and Murmur
Respiratory: Wheeze (n), Crackles (n), Rhonchi (n), Non-Labored Respirations and Accessory Resp Muscle Use (n)
GI: Soft, Non Distended and Non Tender
Neurology: Awake, Alert and No Motor Deficits
Skin: Warm, Good Color, Cyanosis (n), Jaundice (n) and Rash (n)
Labs/Micro/Reports
Lab Data
06/24/23 06:01
06/24/23 21:10
[2023-06-25] MEDS: LIDOCAINE 4% PATCH 1 PATCH TOPICAL (07:51)
[2023-06-25] MEDS: MIRALAX 17 GRAMS TUBE (07:51)
[2023-06-25] MEDS: VITAMIN C 1250 MG PO (07:52)
[2023-06-25] MEDS: HYDREA 500 MG PO ×2 (07:52→21:04)
[2023-06-25] MEDS: MYLICON 80 MG PO (07:54)
[2023-06-25] MEDS: ZADITOR 1 DROP OPHTH ×3 (07:57→21:07)
[2023-06-25] MEDS: NON-FORMULARY ITEM 1 UNIT PO ×2 (07:59→08:01)
[2023-06-25] MEDS: GASTROCROM 100 MG TUBE ×3 (08:00→17:15)
[2023-06-25] MEDS: NON-FORMULARY ITEM 20 MG PO ×2 (08:03→18:52)
--- NOTE | 2023-06-25 08:04 | W.PN.HOSP.TC ---
Today's Communication/Plan
-
anticipate pt will be hospitalized at least a month
Assessment / Plan
Assessment / Plan
32-year-old female past medical history of who presented with a mast cell flare.�Currently awaiting transfer to [place] as per her steel rule inspector Dr. Villanueva at [place].
Gen: continues to remain NAD, AAOx3, appears chronically ill, cushingoid appearance.
Eyes: EOMI, PERRLA, no scleral icterus.
Neck: supple.
CV: Tacky, regular rhythm, +S1/S2, no m/r/g.
Resp: Continues to remain CTAB anteriorly, no rales, wheezes, or rhonchi.
Abd: +BS, soft, NT, ND
Skin: No rashes.
Neuro: CN 2-12 intact, non-focal.
Psych: Normal mood and affect.
Mast Cell Activation Syndrome flare, with DOPA-Responsive Dystonia, Recurrent Anaphylaxis/Mast Cell Flare Episodes:
-cont maintenance medications including standing Ativan / Benadryl (pump), etc.
-cont Methylprednisolone 50mg IV Q12H, Benadryl infusion, PRN DuoNebs
-cont Gleevec
-cont carbidopa-levodopa for dystonia
-Patient has had multiple flares while hospitalized requiring multiple doses of epinephrine
-Heme-onc following
-on 06/23/23 pt was declined transfer to [facility]
-Cromolyn Sodium to increased to 300mg QID. Pt agreeable to increasing dose tomorrow.
-GJ-tube replaced by IR on 06/24/23
-5 doses of 0.3mg epi given in last 24 hours
Other problems:
POTS disease: Continue propranolol
Chronic Nausea/Esophageal Dysmotility: Continue diet as tolerated. Continue G-tube to gravity for chronic nausea. Meds via J-tube. She is scheduled to have GJ tube exchange within a few days
Steroid-Induced DM2: cont Lantus/premeal Novology/SSI/accuchecks
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
h/o DVT/PE: cont Lovenox 1mg/kg SC Q12H
h/o Migraine headaches: Continue Nurtec
Case discussed with Dr. Cagle and RN.
FULL/Lovenox
Total time spent on today's encounter was 50 minutes which included time spent in counseling the patient/family regarding diagnosis and treatment plan as listed above, goals of care, and symptom management. Case was discussed with nursing staff,
specialists, and care coordinators/case management. All labs and imaging personally reviewed by me. Remainder the time spent in detailed review of previous records, lab data, imaging, and other medical provider documentation.
Anticipated Discharge: > 48 hours
Subjective/Interval History
-
Date of Service: June 25, 2023
Objective Data
-
Labs:
Laboratory Results
06/24/23
21:10
Sodium 134 L
Potassium 4.3
Chloride 98
Carbon Dioxide 31 H
BUN 14
Creatinine 0.4 L
Glucose 228 H
Calcium 9.1
Vital Signs:
Vital Signs
Temp Pulse Resp BP Pulse Ox
97.5 F 97 15 140/89 95
06/25/23 04:41 06/25/23 06:01 06/25/23 06:00 06/25/23 06:01 06/25/23 06:00
I&O
06/24/23 06/25/23 06/26/23
06:59 06:59 06:59
Intake Total 3585 / 3700 3890 / 3890
Output Total 3540 / 3540 4350 / 4350
Balance 45 / 160 -460 / -460
[2023-06-25] MEDS: NON-FORMULARY ITEM 180 MG PO ×2 (08:05→13:25)
[2023-06-25] MEDS: NON-FORMULARY ITEM 1 SPRAY NASAL (08:05)
[2023-06-25 08:07] LABS: Glucose - Point of Care 173 mg/dl (70-99)
[2023-06-25] MEDS: NON-FORMULARY ITEM 80 MG PO (08:07)
[2023-06-25] MEDS: LANTUS 0.179999999999999993 UNITS SC (08:11)
[2023-06-25] MEDS: DILAUDID 0.5 MG IV ×2 (08:20→18:51)
--- NOTE | 2023-06-25 09:06 | PTCARENOTE ---
patient received in bed . SR 73 VSS . c/o of pain whole body in pain scale 7/10 . RT PICC line TL dressing intact: NSs 50; Benadryl at 15ml. One lumen capped. G-J tube. G tube to gravity capped for meds administration. J tube all med adm. G-J tube
insertion site care done dressing changed. General edema. All meds administered per current order . Dilaudid adm 0.5mg per prn order call sanchez within reach
--- NOTE | 2023-06-25 09:11 | W.PN.ONC2 ---
Today's Communication / Plan
-
- Continue imatinib, and hydroxyurea 500 mg BID.
- Up-titrate cromolyn sodium as tolerated.
- Consult allergy/immunology for their input.
Impression
Impression
* Mast cell activation syndrome, with recurrent anaphylaxis
* Dystonia, DOPA-responsive
Plan
Plan
Mast cell activation syndrome, with recurrent anaphylaxis.
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
- Follows Dr. MONTRELL Villanueva, heme/onc, at [facility].
- She was diagnosed in 2019, and has been difficult to manage.
- She has tried and failed several modalities.
- Currently managed with diphenhydramine drip, cromolyn sodium, imatinib, hydroxyurea, methylprednisolone, lorazepam, cetirizine and fexofenadine.
- She has multiple triggers for mast cell degranulation flare-ups, and usually experiences dystonic reactions and anaphylaxis.
- She came to the emergency on 06-20-23, after she required 4 epinephrine IM injections for anaphylaxis in 1 day.
- More regularly, she requires 1-2 shots per day, and has a protocol of coming to the emergency on days she requires 3+ shots.
- Considering her unusual presentation of an already rare condition, tried contacting [place] and [facility] for transfers.
- Case was discussed with Dr. Villanueva on 06-23-23; patient has been banned from admission to [place] for her usual presentations.
- [facility] also refused admission stating they would not be able to do anything else for her.
- Case was discussed with Dr. Saravanan Cervantes and the internal medicine hospitalist attending at [facility] on 06-23-23; they also declined transfer.
- Contacted the Mast Cell research group of Dr. Geovani Dixon at [facility], who could not offer medical advice.
- [facility] also cannot offer medical advice if she is not a patient there.
- Called [facility], who asked to email details of her condition; they can review and get back to us.
- Dr. Villanueva recommended increasing hydroxyurea to 500 mg twice a day from 500 mg once a day - done.
- She is on 200 mg QID dosing of cromolyn sodium.
- Increase that to 300mg QID; go up to 400 mg QID if tolerated.
- Cromolyn sodium can have a maximum daily dose of 40 mg/kg/day - [place] is currently only at 8 mg/kg/day, which is the minimum dosing and probably subtherapeutic for her condition.
- She has a ceiling of 4000 mg/day or 1000 mg QID; plenty of room to go up; up-titrate as tolerated.
- Not sure if either or both methylprednisolone and diphenhydramine can be increased safely at this point.
- Allergy/immunology input appreciated.
Dystonia, DOPA-responsive
- Unclear if this is related to the mast cell activation syndrome.
- Mast cell flare-ups are often preceded by the onset of dystonic symptoms.
- On baclofen and carbidopa/levodopa, which have helped; continue.
Subjective/Objective
Chief Complaint
Mary Ontiveros, 32 year-old female, with medical history of mast cell activation syndrome, postural orthostatic tachycardia syndrome, dystonia, steroid-induced diabetes mellitus, steroid-induced osteoporosis, multiple compression fractures, bedbound,
chronic pain syndrome, GERD, migraines, history of DVT and PE presented to the emergency on 06-20-23 with a mast cell degranulation flare-up. She was diagnosed with mast cell activation syndrome in 2019, and has required numerous hospital and ICU
admissions since then. She usually experiences dystonic reaction and anaphylaxis during her flare-ups.
She follows Dr. MONTRELL Villanueva, heme/onc, at [facility] where she is banned from hospitalizations pertaining to her mast cell disorder complications. She has a protocol in place that Dr. Villanueva came up with: to go to the emergency if she
has anaphylaxis 3+ times requiring EpiPen injections in 1 day. She had to use an EpiPen 4x on the day she came to the emergency for the present admission. She has tried and failed several modalities. Currently managed with diphenhydramine drip,
cromolyn sodium, imatinib, hydroxyurea, methylprednisolone, lorazepam, baclofen, carbidopa/levodopa, cetirizine and fexofenadine. 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
biopsy.
Subjective
Vital Signs:
Vital Signs
Temp Pulse Resp BP Pulse Ox
98.1 F 98 24 147/98 96
06/25/23 07:35 06/25/23 09:00 06/25/23 09:00 06/25/23 09:00 06/25/23 09:00
Lab Results:
Laboratory Data
WBC 12.9 10^3/uL (4.8-10.8) H 06/24/23 06:01
Hgb 12.3 g/dL (12.0-16.0) 06/24/23 06:01
Plt Count 242 10^3/uL (130-400) 06/24/23 06:01
eGFR > 60.00 06/24/23 21:10
Review of Systems
Review of Systems
Constitutional: Reports Fatigue
Psychiatric: Reports Depression
[2023-06-25] MEDS: DUONEB 3 ML INH ×3 (09:50→20:40)
[2023-06-25] MEDS: PEPCID 40 MG IV ×2 (09:55→21:06)
[2023-06-25] MEDS: LOVENOX 90 MG SC ×2 (09:58→21:05)
[2023-06-25] MEDS: OSCAL 500 + D 500 MG PO ×2 (09:59→18:41)
[2023-06-25] MEDS: VITAMIN B1 100 MG TUBE (09:59)
[2023-06-25] MEDS: VITAMIN D3 (cholecalciferol) 50 MCG PO (10:03)
[2023-06-25] MEDS: NSS (PRESERVATIVE FREE) 16 ML IV ×2 (10:04→21:06)
--- NOTE | 2023-06-25 10:16 | SUR.OPER ---
Mast Episode
At 0944 patient had mast Episode; upper Extremities b/l stiffness , dry frequent non productive cough with striders POX 98% on 3L. Per current prn order: Epi 0.3 x1 dose+Ativan and Dilaudid 2mg administered via Rt PICC line. Nebulizer tx
administered patient AAO x3 during whole episode. Able to verbally communicate her needs during episode . At this time patient appears comfortable, sleeping, awake to voice call sanchez with reach.
[2023-06-25] MEDS: ZOFRAN 4 MG IV ×2 (10:52→21:00)
[2023-06-25 11:37] LABS: Glucose - Point of Care 272 mg/dl (70-99)
[2023-06-25] MEDS: NOVOLOG FLEXPEN-LOW RESISTANCE 3 UNITS SC (11:46)
--- NOTE | 2023-06-25 12:56 | CM ---
CM following re: discharge planning.
Discussed in Rounds, reviewed pt's chart. Per Rounds meeting, pt with Mast Cell Activation Syndrome flare, with DOPA-Responsive Dystonia, Recurrent Anaphylaxis/Mast Cell Flare Episodes. continue supportive care, awaiting for transfer to [place]
[facility] and it seems a transfer has been denied.
Per MD pt will be hospitalized at least a month.
D/C plan: return back to [facility] when medically stable.
CM will follow with discharge plan updates as hospitalization progresses
[2023-06-25] MEDS: SINEMET 25-100 2 TABLET TUBE ×2 (13:23→18:40)
[2023-06-25] MEDS: NON-FORMULARY ITEM 200 MG PO (13:27)
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
[2023-06-25 16:54] LABS: Glucose - Point of Care 187 mg/dl (70-99)
--- NOTE | 2023-06-25 17:12 | PTCARENOTE ---
16:44 mass cell episode . s/s same to episode befor. Nebulizer tx+Epi x2 Dilaudid 2gm ativan adm. ST 153. POX 97%
[2023-06-25] MEDS: NSS 1000 IV (18:37)
[2023-06-25] MEDS: GASTROCROM 300 MG TUBE ×2 (18:43→21:04)
[2023-06-25] MEDS: ZYRTEC 10 MG TUBE ×2 (18:51→21:04)
[2023-06-25] MEDS: FEOSOL 325 MG PO (21:05)
--- NOTE | 2023-06-25 22:12 | PTCARENOTE ---
Pt received at 19:00. Pt AOx3, pleasant. SR 90s-low 100s. +1 generalized edema. DP pulses weak but palpable. Remains on 3L NC, pulse ox 95-98%. Breath sounds diminished t/o. G/J tube in place. G tube draining to gravity, clamped for meals/meds. J
tube for regional medical director. Hypoactive bowel sounds. PW replaced, no urine output at this time. G/J tube site pink, otherwise skin remains intact. R T/L PICC in place, infusing IVF and benadryl gtt as ordered. MAST episode at 20:30 lasting approximately 15
minutes, PRNs given--see JUL. Pt stated that she had an aura and symptoms would be starting shortly. Pt with SOB, generalized tremors and stiffness, able to communicate and make needs known. Pt bathed, linens changed. Safe environment maintained,
call sanchez within reach, pt refused to be turned at this time.
[2023-06-25 23:03] LABS: Glucose - Point of Care 336 mg/dl (70-99)
[2023-06-25] MEDS: NOVOLOG FLEXPEN 4 UNITS SC (23:56)
[2023-06-26] VITALS (25 sets, daily range): BP systolic 109–154; BP diastolic 47–119; PULSE 119–125; O2SAT 97; BMI 33.1
[2023-06-26 00:05] LABS: Glucose - Point of Care 287 mg/dl (70-99)
--- NOTE | 2023-06-26 00:35 | PTCARENOTE ---
Fingerstick 336, repeat 287. x1 4units novolog ordered and administered. Otherwise assessment unchanged.
[2023-06-26] MEDS: DILAUDID 0.5 MG IV ×5 (00:39→21:14)
[2023-06-26] MEDS: BENADRYL 25 MG IV ×6 (02:47→22:36)
[2023-06-26] MEDS: ATIVAN 2 MG IV ×5 (02:47→22:36)
[2023-06-26] MEDS: ADRENALIN 0.299999999999999989 MG IM ×6 (02:51→22:42)
[2023-06-26] MEDS: DILAUDID 2 MG IV ×5 (02:52→22:40)
[2023-06-26] MEDS: DUONEB 3 ML INH ×4 (03:12→22:49)
[2023-06-26] MEDS: NSS (PRESERVATIVE FREE) 0.5 ML IV (03:15)
[2023-06-26] MEDS: ATIVAN 1 MG IV (03:17)
--- NOTE | 2023-06-26 03:27 | PTCARENOTE ---
MAST episode-SOB, full body tremor and dystonia-starting at 02:45 and lasting 40 minutes. PRN IVP ativan, benadryl, dilaudid given. PRN IM epi given x3. x1 orders for IVP benadryl and dilaudid ordered and given. See MAR. s/sx resolved, pt now
resting comfortably.
[2023-06-26] MEDS: INDERAL 10 MG TUBE ×3 (06:16→21:02)
[2023-06-26] MEDS: SINEMET 25-100 1.5 TABLET TUBE ×2 (06:16→10:51)
[2023-06-26] MEDS: LIORESAL 10 MG PO ×3 (06:16→21:02)
[2023-06-26] MEDS: SOLU-MEDROL PF 50 MG IV ×2 (06:17→17:18)
[2023-06-26] MEDS: SUBUTEX 2 MG SL ×3 (06:21→17:12)
[2023-06-26] MEDS: ATIVAN 1 MG SL ×3 (06:21→17:12)
[2023-06-26] MEDS: TYLENOL 650 MG TUBE ×3 (06:22→17:11)
--- NOTE | 2023-06-26 07:44 | W.PN.INTV ---
Today's Communication / Plan
Recommendations
Continue to treat flares
Consider alternative treatments
Appreciate psychiatric input
Assessment
-
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
and chronic pain syndrome presented with mast cell activation/anaphylaxis requiring epinephrine, steroids, and intravenous Benadryl necessitating intensive care unit monitoring-underground miner consulted for anaphylaxis/mast cell activation
syndrome/critical care management 06/23/2023.
Assessment
Mast cell activation syndrome with flare
Mild leukocytosis
Macrocytosis-MCV 103.5
Hyperglycemia
Conditions present prior to admission:
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
POTS.
Dopa sensitive dystonia.
DVT/PE.
Steroid-induced diabetes.
Steroid-induced osteoporosis.
Multiple compression fractures.
Chronic pain syndrome.
GERD.
Migraine headaches.
Obstructive sleep apnea on AutoPap-last seen by Dr. Cagle 03/2021-now followed by Dr. Maria
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
Restless leg syndrome.
Insomnia.
Asthma.
Vocal cord dysfunction.
Anxiety.
Neurocardiogenic syncope.
Vdfkjr-Vxqyox-lcadkxbzyanew type.
Chronic vertigo.
Raynaud's.
IBS.
Gastroparesis.
Covid 12/2021
Plan
Critically ill with ongoing mast cell destabilization flare
Supplemental oxygen as needed
Aspiration precautions
Incentive spirometry
Nebulizers if needed-currently not bronchospastic-has history of asthma-currently stable
Also has a history of vocal cord dysfunction-appears to be stable at this moment
AutoPap therapy at nighttime with oxygen-patient brought own machine
Mast cell flare treatment ongoing- transfer to [place] as her hydraulic jack adjuster Dr. Villanueva is at [place]-was declined-of note Dr. Cagle reviewed the case with [facility] pulmonary/underground miner on 06/23/2023 and they would not accept patient as
stated they would not have anything to offer-minimal hematology and allergy consultation and recommended checking with [facility] which dosed on staff already has
Hematology evaluation locally-correspondence reviewed-Dr. Blank reviewed the case with Dr. Villanueva-patient has been banned from admissions to [place], [facility] also refuses admissions stating they would not be able to
do anything else for her, case was also discussed with Dr. Saravanan gutierrez and the internal medicine hospitalist at [facility] and they also declined transfer. She also left message with [facility] group who specializes in mast cell disorders-Dr. Geovani Bernstein to
discuss the patient.
Dr. Cagle reviewed the case with Dr. Campa and Dr. Rich extensively on 06/26/2023-consider genetic testing for hereditary forms if not previously done, titrate cromolyn sodium and possibly try other mast cell stabilizers-critical care pharmacy also
involved as may need compounding to make oral medication-Dr. Cagle willing to write prescription which would be taken to [facility] pharmacy for compounding and then administered to patient probably next week
Cromolyn sodium can be increased doses up to 1000 mg 4 times daily-usually increasing slowly by 100 mg 4 times daily weekly-currently at 300 mg 4 times daily
Benadryl intravenously-continues as well as boluses as needed
Ativan continues as needed
Methylprednisolone without change
DuoNebs
Continue with Gleevec
Hydrea-to be increased to 500 mg twice daily
Allergy/immunology consultation recommended
Percutaneous G/J-tube replaced 06/25/2023
Carbidopa/levodopa for her dystonia continues
Analgesia including Dilaudid per primary team-monitor for oversedation
Psychiatric evaluation performed 06/25/2023-patient reports seeing mental health professionals multiple times in the past and is currently on 2 separate Zoom therapies weekly
DVT prophylaxis-on Lovenox
Nutrition
Early mobilization/physical therapy consult as well as Occupational Therapy consult
Outpatient pulmonary/sleep disorders [facility]aw[facility]
Dr. Cagle reviewed with mother-Bobby on 06/24/2023-updated current clinical situation, prognosis, and treatment plan
Critical care statement: A total of 45 minutes of critical care time was provided for this patient today. This includes management of unstable vital signs, evaluation of the patient at bedside, reviewing the patient's pertinent medical records
including radiographs, management of anaphylaxis, epinephrine, Benadryl drip, microbiology, laboratory evaluations, and discussion with primary team, consultants, pharmacy, nutrition, physical therapy, case management, charge nurse, critical care
nursing, and respiratory therapy.
Diagnostic data:
Chest x-ray 01/16/2021-NAD
Chest x-ray 02/16/2023-lungs clear
Chest x-ray 06/20/2023-lungs clear, right PICC line in place
EKO-Tyttya-6/19/2019-МАРИЯ-6, desaturation fidencio 91%, AutoPap
MSLT [facility] 03/18/2019--2/5 SOREM
Subjective Dataa
Subjective Data
Date of Service:
Date of Service: June 26, 2023
Chief Complaint: Tube Trailer Filler Follow Up and Pulmonary Follow Up
Subjective:
Several episodes successfully treated and lasting no more than 20 minutes, currently without complaints of shortness of breath, stridor, shaking, or auras
Review of Systems
General: Other (Per HPI)
Objective Data
Data Reviewed
Vital Signs / I&O / Oxygen:
Vital Signs
Temp Pulse Resp BP Pulse Ox
98.1 F 91 10 124/85 99
06/26/23 03:40 06/26/23 07:00 06/26/23 07:00 06/26/23 07:00 06/26/23 07:00
Intake and Output
06/25/23 06/26/23 06/27/23
06:59 06:59 06:59
Intake Total 3890 / 3955 1890 / 1955
Output Total 4350 / 4350 2600 / 2600
Balance -460 / -395 -710 / -645
SaO2 99
Nasal Cannula flow liters per 3
minute
Physical Exam
General: Respiratory Distress (n), Comfortable and Other (No stridor)
HEENT: Normocephalic and Anicteric
Cardiovascular: Regular Rhythm and Murmur
Respiratory: Wheeze (n), Crackles (n), Rhonchi (n), Non-Labored Respirations and Accessory Resp Muscle Use (n)
GI: Soft, Non Distended and Non Tender
Neurology: Awake, Alert and No Motor Deficits
Skin: Warm, Good Color, Cyanosis (n), Jaundice (n) and Rash (n)
Labs/Micro/Reports
Lab Data
06/24/23 06:01
06/24/23 21:10
--- NOTE | 2023-06-26 07:52 | W.PN.HOSP.TC ---
Today's Communication/Plan
-
see bold
Assessment / Plan
Assessment / Plan
32-year-old female past medical history of who presented with a mast cell flare.�Currently awaiting transfer to [facility] as per her dehorner Dr. Villanueva at [facility].
Gen: NAD, AAOx3, appears chronically ill, cushingoid appearance.
Eyes: EOMI, PERRLA, no scleral icterus.
Neck: supple.
CV: remains tachy, regular rhythm, +S1/S2, no m/r/g.
Resp: CTAB anteriorly, no rales, wheezes, or rhonchi.
Abd: remains +BS, soft, NT, ND
Skin: No rashes.
Neuro: CN 2-12 intact, non-focal.
Psych: Normal mood and affect.
Mast Cell Activation Syndrome flare, with DOPA-Responsive Dystonia, Recurrent Anaphylaxis/Mast Cell Flare Episodes:
-cont maintenance medications including standing Ativan / Benadryl (pump), etc.
-cont Methylprednisolone 50mg IV Q12H, Benadryl infusion, PRN DuoNebs
-cont Gleevec
-cont carbidopa-levodopa for dystonia
-Patient continues to have multiple flares while hospitalized requiring multiple doses of epinephrine (8 doses of 0.3mg epi given in last 24 hours)
-Heme-onc and psych following
-on 06/23/23 pt was declined transfer to [place] and [facility]
-Cromolyn Sodium to increased to 300mg QID. Will continue to increase as able and as pt is agreeable.
-GJ-tube replaced by IR on 06/24/23
-case discussed at length with Drs. Cagle and Lokesh. Considering compounding Ketotifen Fumarate.
-check tryptase level
-with benadryl pump would avoid additional doses of Benadryl
Other problems:
POTS disease: Continue propranolol
Chronic Nausea/Esophageal Dysmotility: Continue diet as tolerated. Continue G-tube to gravity for chronic nausea. Meds via J-tube. She is scheduled to have GJ tube exchange within a few days
Steroid-Induced DM2: cont Lantus/premeal Novology/SSI/accuchecks
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
h/o DVT/PE: cont Lovenox 1mg/kg SC Q12H
h/o Migraine headaches: Continue Nurtec
Case discussed with Dr. Cagle and RN.
FULL/Lovenox
Total critical care time spent = 42 min (pt being treated with multiple doses of epi)
Anticipated Discharge: > 48 hours
Subjective/Interval History
-
Date of Service: June 26, 2023
Pt states that her flare today was slightly less severe than prior.
Objective Data
-
Vital Signs:
Vital Signs
Temp Pulse Resp BP Pulse Ox
98.1 F 91 10 124/85 99
06/26/23 03:40 06/26/23 07:00 06/26/23 07:00 06/26/23 07:00 06/26/23 07:00
I&O
06/25/23 06/26/23 06/27/23
06:59 06:59 06:59
Intake Total 3890 / 3955 1889 / 1954 65 65
Output Total 4350 / 4350 2600 / 2600
Balance -460 / -395 -710 / -645
--- NOTE | 2023-06-26 08:00 | PTCARENOTE ---
Assumed care of patient at 0645 after receiving report. Assessed patient, documented assessment in shift assessment.
Patient is AAOX3, pleasant. Able to HICKEY, generalized weakness in B/L LE. On 3L NC, SpO2 96%. Lungs diminished to auscultation. SR to ST on monitor, generalized anasarca. R Triple PICC infusing Benadryl and IV Fluids, - for BR. Abdomen soft,
non-tender with hypoactive bowel sounds. LUQ G-J Tube in place, G to [place] [facility]. Patient reports LBM yesterday. Purewick in place. Assisted patient with setting up her breakfast. Does not currently exhibit any mast-cell flare symptoms. Patient
mentioned to RN that she does experience auras at times prior to mast-cell flares.
[2023-06-26] MEDS: NOVOLOG FLEXPEN-LOW RESISTANCE SC ×3 (08:04→18:19)
[2023-06-26] MEDS: MIRALAX 17 GRAMS TUBE (08:05)
[2023-06-26] MEDS: LIDOCAINE 4% PATCH 1 PATCH TOPICAL (08:05)
[2023-06-26] MEDS: LANTUS 0.179999999999999993 UNITS SC (08:05)
[2023-06-26] MEDS: MYLICON 80 MG PO (08:05)
[2023-06-26 08:06] LABS: Glucose - Point of Care 133 mg/dl (70-99)
[2023-06-26] MEDS: HYDREA 500 MG PO ×2 (08:06→21:01)
[2023-06-26] MEDS: VITAMIN C 1250 MG PO (08:06)
[2023-06-26] MEDS: ZADITOR 1 DROP OPHTH ×3 (08:07→21:04)
[2023-06-26] MEDS: NON-FORMULARY ITEM 80 MG PO (08:08)
[2023-06-26] MEDS: NON-FORMULARY ITEM 20 MG PO ×2 (08:26→17:13)
[2023-06-26] MEDS: GASTROCROM 300 MG TUBE ×4 (08:26→20:59)
[2023-06-26] MEDS: NOVOLOG FLEXPEN 7 UNITS SC ×2 (08:27→11:57)
--- NOTE | 2023-06-26 09:40 | PTCARENOTE ---
Patient began to experience mast cell flare. Dystonic and rigid, eyes rolling to back of head, patient tachycardic. SpO2 high 90's on 3L NC during episode.
Patient given 0.3 Epi IM, 2mg IV Dilaudid (Verbalized Pain during Episode), 4mg IV Zofran (Verbalized need for Zofran for episode), 25mg IV Benadryl. Called RT for PRN Neb Treatment.
Episode lasted approximately 15 minutes. Patient now drowsy post medication administration, relaxed.
[2023-06-26] MEDS: ZOFRAN 4 MG IV ×2 (09:42→18:36)
[2023-06-26] MEDS: LOVENOX 90 MG SC ×2 (10:50→21:02)
[2023-06-26] MEDS: NSS (PRESERVATIVE FREE) 16 ML IV ×2 (10:50→21:03)
[2023-06-26] MEDS: VITAMIN B1 100 MG TUBE (10:51)
[2023-06-26] MEDS: OSCAL 500 + D 500 MG PO ×2 (10:51→17:11)
[2023-06-26] MEDS: PEPCID 40 MG IV ×2 (10:51→21:03)
[2023-06-26] MEDS: NON-FORMULARY ITEM 2 SPRAY NASAL (10:52)
[2023-06-26] MEDS: VITAMIN D3 (cholecalciferol) 50 MCG PO (10:52)
[2023-06-26] MEDS: NON-FORMULARY ITEM 180 MG PO ×2 (10:53→14:27)
[2023-06-26 11:40] LABS: Glucose - Point of Care 283 mg/dl (70-99)
[2023-06-26] MEDS: BENADRYL 250 MG IV (11:55)
[2023-06-26] MEDS: NOVOLOG FLEXPEN-LOW RESISTANCE 3 UNITS SC (11:56)
--- NOTE | 2023-06-26 12:00 | PTCARENOTE ---
Assessment unchanged from prior. Continues on Benadryl drip.
--- NOTE | 2023-06-26 12:50 | W.PN.ONC ---
Today's Communication / Plan
-
Presentation unusual
Events associated with idiopathic mast cell activation are associated with elevated Tryptase levels
Cromolyn sodium titration on going
Contacted [facility] the can provide ketotifen 2mg BID in compounded oral form
Pharmacist from [facility] to contact pt out of pocket expense
Will follow
Impression
Impression
* Mast cell activation syndrome, with recurrent anaphylaxis
* Dystonia, DOPA-responsive
Plan
Plan
Mast cell activation syndrome, with recurrent anaphylaxis.
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
- Follows Dr. MONTRELL Villanueva, heme/onc, at [facility].
- She was diagnosed in 2019, and has been difficult to manage.
- She has tried and failed several modalities.
- Currently managed with diphenhydramine drip, cromolyn sodium, imatinib, hydroxyurea, methylprednisolone, lorazepam, cetirizine and fexofenadine.
- She has multiple triggers for mast cell degranulation flare-ups, and usually experiences dystonic reactions and anaphylaxis.
- She came to the emergency on 06-20-23, after she required 4 epinephrine IM injections for anaphylaxis in 1 day.
- More regularly, she requires 1-2 shots per day, and has a protocol of coming to the emergency on days she requires 3+ shots.
- Considering her unusual presentation of an already rare condition, tried contacting [facility] and [facility] for transfers.
- Case was discussed with Dr. Villanueva on 06-23-23; patient has been banned from admission to [facility] for her usual presentations.
- [facility] also refused admission stating they would not be able to do anything else for her.
- Case was discussed with Dr. Saravanan Cervantes and the internal medicine hospitalist attending at [facility] on 06-23-23; they also declined transfer.
- Contacted the Mast Cell research group of Dr. Geovani Dixon at [facility], who could not offer medical advice.
- [facility] also cannot offer medical advice if she is not a patient there.
- Called [facility], who asked to email details of her condition; they can review and get back to us.
- Dr. Villanueva recommended increasing hydroxyurea to 500 mg twice a day from 500 mg once a day - done.
- Cromolyn sodium can have a maximum daily dose of 40 mg/kg/day - Cauller is currently only at 8 mg/kg/day, which is the minimum dosing and probably subtherapeutic for her condition.
- She has a ceiling of 4000 mg/day or 1000 mg QID; plenty of room to go up; up-titrate as tolerated.
- Not sure if either or both methylprednisolone and diphenhydramine can be increased safely at this point.
- Allergy/immunology input appreciated.
Dystonia, DOPA-responsive
- Unclear if this is related to the mast cell activation syndrome.
- Mast cell flare-ups are often preceded by the onset of dystonic symptoms.
- On baclofen and carbidopa/levodopa, which have helped; continue.
Subjective/Objective
Subjective/Objective
Patient appears flushed with and apparent episode.
Vital Signs:
Vital Signs
Temp Pulse Resp BP Pulse Ox
98.0 F 104 15 143/102 96
06/26/23 11:57 06/26/23 11:00 06/26/23 11:00 06/26/23 11:00 06/26/23 10:00
Physical exam
Flushing
No wheeze
Regular
Lab Results:
Laboratory Data
WBC 12.9 10^3/uL (4.8-10.8) H 06/24/23 06:01
Hgb 12.3 g/dL (12.0-16.0) 06/24/23 06:01
Plt Count 242 10^3/uL (130-400) 06/24/23 06:01
eGFR > 60.00 06/24/23 21:10
[2023-06-26 14:03] LABS: % Basophils 0.2 % (0-2); % Immature Granulocytes 3.3 % (0-0.5); % Lymphocytes 13.4 % (20.5-51.1); % Monocytes 4.4 % (1.7-9.3); % Neutrophils 78.7 % (42.2-75.2); Absolute Immature Granulocytes 0.4 10^3/uL (0-0.05); Absolute Lymphocytes 1.7 10^3/uL (1.2-3.4); Absolute Monocytes 0.6 10^3/uL (0.1-0.6); Absolute Neutrophils 9.9 10^3/uL (1.4-6.5); Hematocrit 39.4 % (37.0-47.0); Hemoglobin 13.2 g/dL (12.0-16.0); Mean Corp Hgb Conc. 33.5 g/dL (33.0-37.0); Mean Corpuscular Hgb 34.6 pg (27.0-31.0); Mean Corpuscular Volume 103.1 fL (81.0-99.0); Mean Platelet Volume 9.1 fL (7.4-10.4); Nucleated Red Blood Cells % 0 %; Platelet Count 242 10^3/uL (130-400); Red Blood Cell Count 3.82 10^6/uL (4.20-5.40); Red Cell Dist. Width 14.9 % (11.5-14.5); White Blood Cell Count 12.6 10^3/uL (4.8-10.8)
--- NOTE | 2023-06-26 14:19 | W.PN.UPDATE ---
Update Note
Progress Note Update
attempted to see patient. she told me she was not feeling well and today was not a good time. will return tomorrow to offer support.
[2023-06-26] MEDS: SINEMET 25-100 2 TABLET TUBE ×2 (14:24→17:12)
[2023-06-26] MEDS: ADRENALIN IM (14:27)
[2023-06-26] MEDS: NON-FORMULARY ITEM 200 MG PO (14:27)
[2023-06-26 14:29] LABS: ALT (SGPT) 19 U/L (0-35); AST (SGOT) 19 U/L (14-36); Albumin 4.2 g/dl (3.5-5.0); Alkaline Phosphatase 68 U/L (38-126); Blood Urea Nitrogen 12 mg/dl (7-17); Calcium 9.1 mg/dl (8.4-10.2); Carbon Dioxide 25 mmol/L (22-30); Chloride 102 mmol/L (98-107); Estimated Creatinine Clearance > 125 ml/min; Glucose 216 mg/dl (70-99); Potassium 4.5 mmol/L (3.5-5.1); Sodium 133 mmol/L (135-145); Total Bilirubin 0.5 mg/dl (0.2-1.3); Total Protein 6.8 g/dl (6.3-8.2); eGFR > 60.00
--- NOTE | 2023-06-26 14:30 | CM ---
CM following re: discharge planning.
Discussed in Rounds, reviewed pt's chart. Per Rounds meeting, pt with Mast Cell Activation Syndrome flare, with DOPA-Responsive Dystonia, Recurrent Anaphylaxis/Mast Cell Flare Episodes, continue supportive care.
D/C plan: return back to [facility] when medically stable.
CM will follow with discharge plan updates as hospitalization progresses
[2023-06-26] MEDS: NSS 1000 IV (14:33)
--- NOTE | 2023-06-26 14:35 | PTCARENOTE ---
Patient had worked with PT and got OOB to chair with her neck and back brace on. Patient tolerated being OOB for approximately 30 minutes. Patient then reported to RN that she felt an aura coming on. RN and PCT assisted patient back to bed. Patient
then had mast cell flare. Tachycardic to 160's, dystonic and rigid movements, eyes rolling to back of head.
Administered IV Dilaudid, Ativan and Benadryl. Patient did not require IM Epi. Patient gradually relaxed and returned to baseline.
--- NOTE | 2023-06-26 16:00 | PTCARENOTE ---
Patient assessment unchanged. Since last mast cell flare, patient has been resting comfortably.
[2023-06-26 17:05] LABS: Glucose - Point of Care 163 mg/dl (70-99)
[2023-06-26] MEDS: ZYRTEC 10 MG TUBE ×2 (17:12→21:04)
[2023-06-26] MEDS: NOVOLOG FLEXPEN SC ×2 (18:04→18:19)
--- NOTE | 2023-06-26 18:20 | PTCARENOTE ---
Patient had another mast cell flare at approximately 1800. Similar symptoms of tachycardia, dystonic and rigid movement, SOB (however SpO2 97%, patient able to breathe appropriately), eyes rolling to back of head.
Initially gave IV Benadryl and Ativan. Ineffective. Gave IM Epi 0.3 and IV Dilaudid. Flare beginning to subside after about 20 minutes.
[2023-06-26] MEDS: FEOSOL 325 MG PO (21:00)
[2023-06-26 22:04] LABS: Glucose - Point of Care 366 mg/dl (70-99)
[2023-06-27] VITALS (22 sets, daily range): BP systolic 121–172; BP diastolic 83–133; BMI 33.3
--- NOTE | 2023-06-27 00:37 | PTCARENOTE ---
Received pt at 19:00. Assessment as documented. At approx 22:30 pt with mast cell flare, lasting approx 30 minutes. Tachycardia, SOB, dystonia, tremors. Pt given PRN IVP ativan/dilaudid/benadryl, PRN IM epi, and PRN neb tx. Pt now calm and resting
comfortably. Safe environment maintained.
[2023-06-27] MEDS: ATIVAN 1 MG SL ×4 (00:46→18:08)
[2023-06-27] MEDS: TYLENOL 650 MG TUBE ×4 (00:46→18:11)
[2023-06-27] MEDS: SUBUTEX 2 MG SL ×4 (00:46→18:09)
[2023-06-27] MEDS: DILAUDID 0.5 MG IV ×4 (01:15→18:30)
[2023-06-27 03:48] LABS: Hematocrit 39.9 % (37.0-47.0); Mean Corp Hgb Conc. 32.6 g/dL (33.0-37.0); Mean Corpuscular Hgb 34.1 pg (27.0-31.0); Mean Corpuscular Volume 104.7 fL (81.0-99.0); Platelet Count 234 10^3/uL (130-400); Red Blood Cell Count 3.81 10^6/uL (4.20-5.40); Red Cell Dist. Width 14.9 % (11.5-14.5); White Blood Cell Count 12.2 10^3/uL (4.8-10.8)
[2023-06-27 03:55] LABS: INR 0.94; PT 12.6 Sec (11.4-14.6)
[2023-06-27 03:56] LABS: APTT 29.2 Sec (23.4-35.0)
[2023-06-27 03:57] LABS: ALT (SGPT) 23 U/L (0-35); AST (SGOT) 15 U/L (14-36); Albumin 4.2 g/dl (3.5-5.0); Alkaline Phosphatase 66 U/L (38-126); Blood Urea Nitrogen 10 mg/dl (7-17); Calcium 9.2 mg/dl (8.4-10.2); Carbon Dioxide 32 mmol/L (22-30); Chloride 101 mmol/L (98-107); Estimated Creatinine Clearance > 125 ml/min; Glucose 197 mg/dl (70-99); Potassium 4.2 mmol/L (3.5-5.1); Sodium 137 mmol/L (135-145); Total Bilirubin 0.4 mg/dl (0.2-1.3); Total Protein 6.6 g/dl (6.3-8.2); eGFR > 60.00
--- NOTE | 2023-06-27 04:04 | PTCARENOTE ---
Pt assessment unchanged. Tolerated home CPAP for approx 2.5hr. Safe environment maintained, call sanchez within reach.
[2023-06-27] MEDS: BENADRYL 25 MG IV ×5 (04:25→22:47)
[2023-06-27] MEDS: DILAUDID 2 MG IV ×4 (04:26→22:48)
[2023-06-27] MEDS: ATIVAN 2 MG IV ×5 (04:26→22:48)
[2023-06-27] MEDS: VENTOLIN NEBULES 2.5 MG INH (04:32)
[2023-06-27] MEDS: ADRENALIN 0.299999999999999989 MG IM ×6 (04:33→16:52)
[2023-06-27] MEDS: BENADRYL 250 MG IV ×2 (05:04→19:52)
[2023-06-27] MEDS: VALIUM INJECTION 5 MG IV (05:10)
--- NOTE | 2023-06-27 05:16 | PTCARENOTE ---
Pt with MAST flare lasting 1 hour. Started at 04:15. PRNs ativan, benadryl, dilaudid, and epi given. Pt continued with symptoms, rigidity, tremors, SOB. x1 for valium ordered and aministered as ordered--effective.
--- NOTE | 2023-06-27 05:49 | W.PN.HOSP.TC ---
Addendum entered and electronically signed by Kelvin Rich MD 06/27/23 06:25:
Pt seen and examined with nurse Kindra Stokes present at bedside.
Original Note:
Today's Communication/Plan
-
see bold
Assessment / Plan
Assessment / Plan
32-year-old female past medical history of who presented with a mast cell flare.�Currently awaiting transfer to [place] as per her central sterilization technician Dr. Villanueva at [facility].
Gen: NAD, AAOx3, appears chronically ill, cushingoid appearance.
Eyes: EOMI, PERRLA, no scleral icterus.
Neck: supple.
CV: RRR, +S1/S2, no m/r/g.
Resp: remains CTAB anteriorly, no rales, wheezes, or rhonchi.
Abd: continues to remain +BS, soft, NT, ND
Skin: No rashes.
Neuro: CN 2-12 intact, non-focal.
Psych: Normal mood and affect.
Mast Cell Activation Syndrome flare, with DOPA-Responsive Dystonia, Recurrent Anaphylaxis/Mast Cell Flare Episodes:
-cont maintenance medications including standing Ativan / Benadryl (pump), etc.
-cont Methylprednisolone 50mg IV Q12H, Benadryl infusion, PRN DuoNebs
-cont Gleevec
-cont carbidopa-levodopa for dystonia
-Patient continues to have multiple flares while hospitalized requiring multiple doses of epinephrine (5 doses of 0.3mg epi given in last 24 hours)
-Heme-onc and psych following
-on 06/23/23 pt was declined transfer to [facility] and [facility]
-Cromolyn Sodium to increased to 300mg QID. Will continue to increase as able and as pt is agreeable.
-GJ-tube replaced by IR on 06/24/23
-case discussed at length with Drs. Cagle and Lokesh on 06/26/23. Pt to start compounded Ketotifen Fumarate today.
-tryptase and who blood histamine levels pending
-with benadryl pump would avoid additional doses of Benadryl
Other problems:
POTS disease: Continue propranolol
Chronic Nausea/Esophageal Dysmotility: Continue diet as tolerated. Continue G-tube to gravity for chronic nausea. Meds via J-tube. She is scheduled to have GJ tube exchange within a few days
Steroid-Induced DM2: cont Lantus/premeal Novology/SSI/accuchecks
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
h/o DVT/PE: cont Lovenox 1mg/kg SC Q12H
h/o Migraine headaches: Continue Nurtec
Case discussed with Dr. Cagle and RN.
FULL/Lovenox
Total critical care time spent = 32 min (pt being treated with multiple doses of epi)
Anticipated Discharge: > 48 hours
Subjective/Interval History
-
Date of Service: June 27, 2023
No new complaints.
Objective Data
-
Labs:
Laboratory Results
06/27/23
03:30
WBC 12.2 H
Hgb 13.0
Hct 39.9
Plt Count 234
PT 12.6
INR 0.94
APTT 29.2
Sodium 137
Potassium 4.2
Chloride 101
Carbon Dioxide 32 H
BUN 10
Creatinine 0.4 L
Glucose 197 H
Calcium 9.2
Total Bilirubin 0.4
AST 15
ALT 23
Alkaline Phosphatase 66
Vital Signs:
Vital Signs
Temp Pulse Resp BP Pulse Ox
98.1 F 109 11 145/122 100
06/26/23 20:09 06/27/23 04:00 06/27/23 03:00 06/27/23 04:00 06/27/23 04:00
I&O
06/25/23 06/26/23 06/27/23
06:59 06:59 06:59
Intake Total 3890 / 3955 1890 / 1955 1430 / 1430
Output Total 4350 / 4350 2600 / 2600 4900 / 4900
Balance -460 / -395 -710 / -645 -3470 / -3470
[2023-06-27] MEDS: INDERAL 10 MG TUBE ×3 (06:10→21:25)
[2023-06-27] MEDS: SOLU-MEDROL PF 50 MG IV ×2 (06:11→18:10)
[2023-06-27] MEDS: LIORESAL 10 MG PO ×3 (06:11→21:25)
[2023-06-27] MEDS: SINEMET 25-100 1.5 TABLET TUBE ×2 (06:11→10:15)
[2023-06-27] MEDS: NON-FORMULARY ITEM 20 MG PO ×2 (07:47→17:52)
--- NOTE | 2023-06-27 07:49 | W.PN.INTV ---
Today's Communication / Plan
Recommendations
Continue to treat flares
Check tryptase level and histamine level
Slowly titrate cromolyn sodium
Introduce Ketotifen
Assessment
-
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
and chronic pain syndrome presented with mast cell activation/anaphylaxis requiring epinephrine, steroids, and intravenous Benadryl necessitating intensive care unit monitoring-boating safety officer consulted for anaphylaxis/mast cell activation
syndrome/critical care management 06/23/2023.
Assessment
Mast cell activation syndrome with flare-unclear how diagnosis was made-followed by Dr. Villanueva
Mild leukocytosis
Macrocytosis-MCV 103.5
Hyperglycemia
Conditions present prior to admission:
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
POTS.
Dopa sensitive dystonia.
DVT/PE.
Steroid-induced diabetes.
Steroid-induced osteoporosis.
Multiple compression fractures.
Chronic pain syndrome.
GERD.
Migraine headaches.
Obstructive sleep apnea on AutoPap-last seen by Dr. Cagle 03/2021-now followed by Dr. Maria
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
Restless leg syndrome.
Insomnia.
Asthma.
Vocal cord dysfunction.
Anxiety.
Neurocardiogenic syncope.
Crndvv-Qpnwmf-evbisnqfqteye type.
Chronic vertigo.
Raynaud's.
IBS.
Gastroparesis.
Covid 12/2021
Plan
Continues to be critically ill with ongoing mast cell destabilization flare-requiring up to 5 times daily epinephrine/Benadryl/Ativan/hydromorphone administration
Supplemental oxygen as needed
Aspiration precautions
Incentive spirometry
Nebulizers if needed-currently not bronchospastic-has history of asthma-currently stable
Also has a history of vocal cord dysfunction-appears to be stable at this moment
AutoPap therapy at nighttime with oxygen-patient brought own machine
Mast cell flare treatment ongoing-initial plan was to transfer to [place] as her coping machine assembler Dr. Villanueva is at [place]-was declined-of note Dr. Cagle reviewed the case with [facility] pulmonary/boating safety officer on 06/23/2023 and they would not
accept patient as stated they would not have anything to offer-minimal hematology and allergy consultation available and recommended checking with [facility] which dosed on staff already has
Hematology evaluation locally-correspondence reviewed-Dr. Blank reviewed the case with Dr. Villanueva-patient has been banned from admissions to [place], [facility] also refuses admissions stating they would not be able to
do anything else for her, case was also discussed with Dr. Saravanan gutierrez and the internal medicine hospitalist at [facility] and they also declined transfer. She also left message with [facility] who specializes in mast cell disorders-Dr. Geovani Bernstein to
discuss the patient.
Dr. Cagle reviewed the case with Dr. Campa and Dr. Rich extensively on 06/26/2023-consider genetic testing for hereditary forms if not previously done, titrate cromolyn sodium and possibly try other mast cell stabilizers-critical care pharmacy also
involved as may need compounding to make oral medication-Dr. Cagle willing to write prescription which would be taken to [facility] pharmacy for compounding and then administered to patient probably next week
Cromolyn sodium will be slowly increased doses up to 1000 mg 4 times daily-usually increasing slowly by 100 mg 4 times daily weekly-currently at 300 mg 4 times daily
Compounding [facility] pharmacy of Ketotifen 2 mg twice daily will be initiated as a mast cell stabilizer as well-told patient this could be a 'game changer' to control her disease and wean her off steroids
Also will check tryptase level as should be elevated with flares
Also check histamine levels which should be elevated with flares
Consider genetic testing if not previously done for hereditary forms
Benadryl intravenously-continues as well as boluses as needed
Ativan continues as needed
Methylprednisolone without change
DuoNebs
Continue with Gleevec
Hydrea-to be increased to 500 mg twice daily
Allergy/immunology consultation recommended
Percutaneous G/J-tube replaced 06/25/2023
Carbidopa/levodopa for her dystonia continues
Analgesia including Dilaudid per primary team-monitor for oversedation
Psychiatric evaluation performed 06/25/2023-patient reports seeing mental health professionals multiple times in the past and is currently on 2 separate Zoom therapies weekly-reviewed correspondence and personally spoke to psychiatry on 06/27/2023
DVT prophylaxis-on Lovenox
Nutrition
Early mobilization/physical therapy consult as well as Occupational Therapy consult
Outpatient pulmonary/sleep disorders [id number]
Dr. Cagle reviewed with mother-Bobby on 06/24/2023-updated current clinical situation, prognosis, and treatment plan
Critical care statement: A total of 40 minutes of critical care time was provided for this patient today. This includes management of unstable vital signs, evaluation of the patient at bedside, reviewing the patient's pertinent medical records
including radiographs, management of anaphylaxis, epinephrine, Benadryl drip, microbiology, laboratory evaluations, and discussion with primary team, consultants, pharmacy, nutrition, physical therapy, case management, charge nurse, critical care
nursing, and respiratory therapy.
Diagnostic data:
Chest x-ray 01/16/2021-NAD
Chest x-ray 02/16/2023-lungs clear
Chest x-ray 06/20/2023-lungs clear, right PICC line in place
VEI-Hluvsb-1/19/2019-МАРИЯ-6, desaturation fidencio 91%, AutoPap
MSLT Sabianism 03/18/2019--2/5 SOREM
Subjective Dataa
Subjective Data
Date of Service:
Date of Service: June 27, 2023
Chief Complaint: Furniture Restorer Follow Up and Pulmonary Follow Up
Subjective:
Continues to have up to 5 episodes daily, currently without complaints of shortness of breath, chest pain or abdominal pain
Review of Systems
General: Other (Per HPI)
Objective Data
Data Reviewed
Vital Signs / I&O / Oxygen:
Vital Signs
Temp Pulse Resp BP Pulse Ox
98.1 F 109 11 145/122 100
06/26/23 20:09 06/27/23 04:00 06/27/23 03:00 06/27/23 04:00 06/27/23 04:00
Intake and Output
06/26/23 06/27/23 06/28/23
06:59 06:59 06:59
Intake Total 1890 / 1955 1560 / 1560
Output Total 2600 / 2600 4900 / 4900
Balance -710 / -645 -3340 / -3340
SaO2 100
Nasal Cannula flow liters per 3
minute
Physical Exam
General: Respiratory Distress (n), Comfortable and Other (No stridor)
HEENT: Normocephalic and Anicteric
Cardiovascular: Regular Rhythm and Murmur
Respiratory: Wheeze (n), Crackles (n), Rhonchi (n), Non-Labored Respirations and Accessory Resp Muscle Use (n)
GI: Soft, Non Distended and Non Tender
Neurology: Awake, Alert and No Motor Deficits
Skin: Warm, Good Color, Cyanosis (n), Jaundice (n) and Rash (n)
Labs/Micro/Reports
Lab Data
06/27/23 03:30
06/27/23 03:30
Laboratory Results
06/27/23
03:30
PT 12.6
INR 0.94
APTT 29.2
[2023-06-27] MEDS: GASTROCROM 300 MG TUBE ×4 (07:50→21:27)
[2023-06-27] MEDS: NOVOLOG FLEXPEN-LOW RESISTANCE 1 UNITS SC (07:53)
[2023-06-27] MEDS: NOVOLOG FLEXPEN 9 UNITS SC ×3 (07:53→17:57)
[2023-06-27 07:56] LABS: Glucose - Point of Care 193 mg/dl (70-99)
[2023-06-27] MEDS: HYDREA 500 MG PO ×2 (08:13→19:52)
[2023-06-27] MEDS: NON-FORMULARY ITEM 1 MG PO ×3 (08:14→14:06)
[2023-06-27] MEDS: LANTUS 0.220000000000000001 UNITS SC (08:22)
[2023-06-27] MEDS: MIRALAX TUBE (08:34)
[2023-06-27] MEDS: LIDOCAINE 4% PATCH 1 PATCH TOPICAL (09:24)
[2023-06-27] MEDS: VITAMIN C 1250 MG PO (10:04)
[2023-06-27] MEDS: MYLICON 80 MG PO (10:05)
[2023-06-27] MEDS: NON-FORMULARY ITEM 1 SPRAY NASAL (10:05)
[2023-06-27] MEDS: ZADITOR 1 DROP OPHTH ×3 (10:06→21:27)
[2023-06-27] MEDS: LOVENOX 90 MG SC ×2 (10:14→21:24)
[2023-06-27] MEDS: VITAMIN D3 (cholecalciferol) 50 MCG PO (10:14)
[2023-06-27] MEDS: VITAMIN B1 100 MG TUBE (10:14)
[2023-06-27] MEDS: OSCAL 500 + D 500 MG PO ×2 (10:14→18:11)
[2023-06-27] MEDS: PEPCID 40 MG IV ×2 (10:15→21:24)
[2023-06-27] MEDS: NSS (PRESERVATIVE FREE) 16 ML IV ×2 (10:15→21:25)
--- NOTE | 2023-06-27 11:12 | W.PN.UPDATE ---
Update Note
Progress Note Update
reviewed case w icu rounds. the patient continues w multiple acute episodes of sob coughing etc. dr stern in the process of implementing a new medication regimen and trying to encourage patient to have ciro that this will help and hopefully
eventually be willing to scale back the medications which are negatively impacting her life. i attempted to see her but she was coughing and gasping and said she could not talk and felt staff was ignoring her acuity. relayed this to staff. psych
will continue to try to talk to her. as stated in my original note there is clearly a supratentorial component to her illness but the difficulty is in getting patient to think about this and eventually acknowledge this. i did very very gingerly
broach this to her today but she said 'no one believes i am ill.'
--- NOTE | 2023-06-27 11:48 | PTCARENOTE ---
pt awake and alert this am , pt had breakfast tray and our plan was to get oob and wash up for the day , she did her self care and had multiple face creams and skin creams she applied to her skin (she had borough these creams from home and states
they are hypoallergenic) , she was bathed and had her hair washed , HR ST on monitor , BP 150/100 , on 3L NC with sats of 98% , pt did get oob with her neck and back brace intact and a wheeled walker , she had no difficulty getting oob in chair ,
she entire breakfast without difficulty , we had some discussion on her past medical experiences and her home life ,after breakfast she wanted to get back to bed , she stated was getting an aura and felt like she was going to have an episode at
9:45, she was able to get back to bed and then at 09:50 she started with myoclonic jerking and dystonic movements she then stated to me ' I need my rescue drugs now!' , she had a left gaze and I did test corneal reflexes that were positive , she
also had her bilateral arms contracted , I was able to move her R arm to properly administer her rescue medications that she was requesting , she received 0.3mg sq Adrenalin, 2mg IV lorazepam , 25mg IV Benadryl 0.5mg IV Dilaudid , I gave the
medication in her picc line that had NSS running ,she then requested that I push the IV Meds into her open picc port for a faster effect as she needed it quickly ,she was very upset that I took too long to get and give her medications , she then
continued with these episodes of myoclonic jerks and dystonia , through out the entire hour long episode she could converse and let her needs know , she questioned me to make sure I gave her appropriate doses of medications and repeated them
verbatim did you give me exactly ' 0.3mg IM adrenalin, 2mg IV lorazepam , 25mg IV Benadryl and .05 mg of the IV Dilaudid ', I told her I can ask if she could have another dose of the IV Valium as she had it last night and it helped her symptoms ,
she stated she is allergic to the Valium and it should be on her allergic list of medications , she then continued to have this MAST cell episode and become incontinent in bed , she was given another dose of 0.3mg IM adrenalin at 11:17 , during the
episode her 02 sats WNL mid 90s , HR tachycardic and BP slightly elevated 150/100s , skin diaphoretic ,she states she is not comfortable in my care and feels like I am not empathetic enough and she felt like I don't believe her symptoms and
diagnosis , she is now requesting another nurse because she feels that I am not properly caring for her . Charge nurse notified and management notified, pt is now assigned new nurse and report given to Alejandra JULIEN . Dr Padilla (Psychiatry) here to now
to assist with the patients concerns and conditions . Plan of care was disused with ICU team . New medication is being brought in by patients father this afternoon for her MAST cell flair.
[2023-06-27 12:12] LABS: Glucose - Point of Care 247 mg/dl (70-99)
--- NOTE | 2023-06-27 12:30 | PTCARENOTE ---
Assumend care of patient at 1130- see previous RN note. Rec'd pt tearful, crying, choked up, anxious and diaphoretic. Shaking and stiff- states she was still having some MAST Cell symptoms- remedicated with Dilaudid 2 mg at 1155 which seems to have
relaxed her more and helped some of the stiffness. Still does have some shaking. C/O R arm and shoulder pain. States she has osteoarthritis and if moved a certain way it gives her increased pain. HICKEY- however does have generalized weakness and pt
states with her dystonia it can be hard to do things. Speech is clear. Skin is pale pink warm but diaphoretic. Respirs are shallow and initally tachypnic but then relaxed her breathing. Sats are 97% on 3l nc. BS are clear. Monitor ST initially in
the 120-130's now 115. VS as documented. +1 generalized anasarca. ABd is round/obese with + BS. LUQ GJ tube in place. G tube to gravity drainage. Pt incont of a saturated amt of urine around her purewick. Purewick replaced. Complete bed and bed
change done. IV Benadryl gtt infusing at 15 ml/hr and NSS at 50 ml/hr both via R arm TL PICC. Site wnl. Turned and repositioned. Support given. Plan of care reviewed with pt. Call sanchez in reach. Will monitor closely.
[2023-06-27] MEDS: NOVOLOG FLEXPEN-MODERATE RESISTANCE 3 UNITS SC (13:09)
[2023-06-27] MEDS: NON-FORMULARY ITEM 200 MG PO (14:07)
[2023-06-27] MEDS: SINEMET 25-100 2 TABLET TUBE ×2 (14:09→18:11)
[2023-06-27] MEDS: FLUSH (NSS) 3 FLUSH IV (14:41)
[2023-06-27] MEDS: ZOFRAN 4 MG IV (14:41)
[2023-06-27] MEDS: DUONEB 3 ML INH ×2 (14:42→23:01)
--- NOTE | 2023-06-27 14:43 | CM ---
CM following re: discharge planning.
Discussed in Rounds, reviewed pt's chart. Per Rounds meeting, pt with Mast Cell Activation Syndrome flare, with DOPA-Responsive Dystonia, Recurrent Anaphylaxis/Mast Cell Flare Episodes, continue supportive care.
Psychiatry following
D/C plan: return back to [facility] when medically stable.
CM will follow with discharge plan updates as hospitalization progresses
--- NOTE | 2023-06-27 15:00 | PTCARENOTE ---
Pt was slowly working on lunch as she states she needs to eat slow as she has gastroparesis. Just finishing up giving meds via J portion of GJ tube when pt started feeling like she was beginning to have a MAST flare again that quickly escalated- HR
up into the 150's. Pt coughing, grunting breathing and feeling like her throat was closing. Eyes rolling back in her head but was able to talk through it to tell me what meds she wanted along with an Albuterol treatment. Stiffens up and has
tremors.Resp therapy in and Albuterol given, Dilaudid 0.5 mg IV , Benadryl 25 mg IV, Ativan 2 mg IV and Epi 0.3 mg IM 1423 and then Zofran 4 mg IV given at 1441. Episode lasted about 30 minutes until there was less tremoring and stiffness. When it
started to subside pt stated her G/J tube that was recently replaced had been hurting as she was tensed up. Asked when she could have her higher Dilaudid dose. Informed not until closer to 1600. Repositioned as she stated her back hurt her. Support
given. Call sanchez in reach.
[2023-06-27] MEDS: NOVOLOG FLEXPEN-LOW RESISTANCE SC (15:09)
--- NOTE | 2023-06-27 15:21 | PTCARENOTE ---
Currently resting with eyes closed. HR down to 98-103. STach. Pts father in an brought in Ketotifen - sent to Pharmacy for barcoding.
[2023-06-27] MEDS: NON-FORMULARY ITEM 2 MG PO (15:55)
[2023-06-27] MEDS: NSS 1000 IV (15:55)
[2023-06-27] MEDS: FLUSH (NSS) 2 FLUSH IV (16:37)
--- NOTE | 2023-06-27 17:15 | PTCARENOTE ---
Was playing cards with her dad and had another episode of MAST Cell episode/dystonia- symptoms the same as earlier. Lasted about 40 minutes until she was relaxed and not tremoring or frequently coughing to clear her throat. Required at 1636- Ativan
2 mg IV, Benadryl 25 mg IV, Dilaudid 2 mg IV and at [address] Cagle aware and will change PRN Benadryl and Ativan dosing to q2hr prn. Repositioned. Resting currently.
[2023-06-27 17:37] LABS: Glucose - Point of Care 123 mg/dl (70-99)
[2023-06-27] MEDS: NOVOLOG FLEXPEN-MODERATE RESISTANCE SC (17:43)
[2023-06-27] MEDS: ZYRTEC 10 MG TUBE ×2 (18:12→21:25)
[2023-06-27] MEDS: FLUSH (NSS) 1 FLUSH IV (18:31)
--- NOTE | 2023-06-27 18:40 | PTCARENOTE ---
C/o Discomfort from G tube site and that her back hurts- Remedicated with Dilaudid 0.5 mg IV. Working on some dinner.
--- NOTE | 2023-06-27 20:41 | PTCARENOTE ---
Rec'd care of patient at 191. Patient drowsy. Oriented x3. NSR/ST on tele monitor. VSS. POX 97-98% on 3L nc. Patient's own CPAP at bedside for HS. Lung sounds diminished in b/l base. Denies dyspnea. +BS. G-tube to drainage, J-tube clamped.
Abdominal site ecchymotic with scant drainage. Dressing changed. Voiding via purewick. No complaints at current time. Plan of care discussed. Call sanchez within reach.
[2023-06-27] MEDS: FEOSOL 325 MG PO (21:25)
[2023-06-27 22:07] LABS: Glucose - Point of Care 273 mg/dl (70-99)
[2023-06-27] MEDS: NSS (PRESERVATIVE FREE) 1 ML IV (22:48)
--- NOTE | 2023-06-27 23:15 | PTCARENOTE ---
Around 2239, patient turning in bed and began to feel mast cell attack coming on. Patient c/o tightness in throat area. Dyspneic with frequent dry cough. Tachycardic. Dystonic movements. 25mg IV Benadryl, 2mg IV Ativan, 2mg IV Dilaudid and duoneb
administered. Episode lasted roughly 35 minutes. Patient resting comfortably and verbalizing relief. Currently- HR 90's (NSR), BP 122/84, RR 13, POX 93% on 3Lnc.
[2023-06-28] VITALS (14 sets, daily range): BP systolic 108–144; BP diastolic 73–98; BMI 32.8
[2023-06-28] MEDS: TYLENOL 650 MG TUBE ×5 (00:06→23:23)
[2023-06-28] MEDS: ATIVAN 1 MG SL ×5 (00:06→23:22)
[2023-06-28] MEDS: SUBUTEX 2 MG SL ×5 (00:06→23:22)
[2023-06-28 04:25] LABS: Hematocrit 25.7 % (37.0-47.0); Mean Corp Hgb Conc. 33.5 g/dL (33.0-37.0); Mean Corpuscular Hgb 34.4 pg (27.0-31.0); Mean Corpuscular Volume 102.8 fL (81.0-99.0); Mean Platelet Volume 9.2 fL (7.4-10.4); Platelet Count 152 10^3/uL (130-400); Red Cell Dist. Width 14.9 % (11.5-14.5); White Blood Cell Count 7.2 10^3/uL (4.8-10.8)
--- NOTE | 2023-06-28 04:28 | PTCARENOTE ---
No changes in assessment. Patient removed CPAP and placed back on 3L nc. AM labs sent. C/o minor pain at peg site. Ice pack applied.
[2023-06-28 04:37] LABS: Blood Urea Nitrogen 9 mg/dl (7-17); Calcium 7.3 mg/dl (8.4-10.2); Carbon Dioxide 26 mmol/L (22-30); Chloride 110 mmol/L (98-107); Estimated Creatinine Clearance > 125 ml/min; Glucose 134 mg/dl (70-99); Potassium 3.5 mmol/L (3.5-5.1); Sodium 139 mmol/L (135-145); eGFR > 60.00
[2023-06-28 04:43] LABS: Hemoglobin 8.6 g/dL (12.0-16.0)
[2023-06-28] MEDS: ATIVAN 2 MG IV ×4 (05:29→19:50)
[2023-06-28] MEDS: NSS (PRESERVATIVE FREE) 1 ML IV ×2 (05:29→19:51)
[2023-06-28] MEDS: BENADRYL 25 MG IV ×5 (05:29→23:38)
[2023-06-28] MEDS: DILAUDID 2 MG IV ×5 (05:30→23:50)
--- NOTE | 2023-06-28 05:57 | PTCARENOTE ---
Pt with another episode lasting about 30 minutes. Symptoms less severe than prior attack, mainly dystonia. Patient talking to RN throughout episode. Ativan, Benadryl and Dilaudid administered. Emotional support provided.
[2023-06-28] MEDS: INDERAL 10 MG TUBE ×3 (06:19→22:20)
[2023-06-28] MEDS: SOLU-MEDROL PF 50 MG IV ×2 (06:20→17:56)
[2023-06-28] MEDS: SINEMET 25-100 1.5 TABLET TUBE ×2 (06:20→11:04)
[2023-06-28] MEDS: LIORESAL 10 MG PO ×3 (06:20→22:20)
[2023-06-28] MEDS: ZOFRAN 4 MG IV (06:31)
[2023-06-28 07:29] LABS: Glucose - Point of Care 163 mg/dl (70-99)
[2023-06-28] MEDS: NOVOLOG FLEXPEN 9 UNITS SC ×3 (07:35→17:45)
[2023-06-28] MEDS: NOVOLOG FLEXPEN-MODERATE RESISTANCE 1 UNITS SC (07:36)
[2023-06-28] MEDS: LANTUS 0.220000000000000001 UNITS SC (07:36)
[2023-06-28] MEDS: NON-FORMULARY ITEM 20 MG PO ×2 (07:39→17:47)
--- NOTE | 2023-06-28 07:43 | W.PN.INTV ---
Today's Communication / Plan
Recommendations
Continue to treat anaphylactoid like reactions
Ketotifen continues
Continue slowly titrate cromolyn sodium
Tryptase level pending
Assessment
-
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
and chronic pain syndrome presented with mast cell activation/anaphylaxis requiring epinephrine, steroids, and intravenous Benadryl necessitating intensive care unit monitoring-heating element builder consulted for anaphylaxis/mast cell activation
syndrome/critical care management 06/23/2023.
Assessment
Mast cell activation syndrome with flare-unclear how diagnosis was made-followed by Dr. Villanueva
Mild leukocytosis
Macrocytosis-MCV 103.5
Hyperglycemia
Conditions present prior to admission:
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
POTS.
Dopa sensitive dystonia.
DVT/PE.
Steroid-induced diabetes.
Steroid-induced osteoporosis.
Multiple compression fractures.
Chronic pain syndrome.
GERD.
Migraine headaches.
Obstructive sleep apnea on AutoPap-last seen by Dr. Cagle 03/2021-now followed by Dr. Maria
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
Restless leg syndrome.
Insomnia.
Asthma.
Vocal cord dysfunction.
Anxiety.
Neurocardiogenic syncope.
Yirfwa-Hzztvv-uxzhdirkhsceq type.
Chronic vertigo.
Raynaud's.
IBS.
Gastroparesis.
Covid 12/2021
Plan
She remains critically ill with ongoing mast cell destabilization flare-requiring up to 5 times daily epinephrine/Benadryl/Ativan/hydromorphone administration
Supplemental oxygen as needed
Aspiration precautions
Incentive spirometry
Nebulizers if needed-currently not bronchospastic-has history of asthma-currently stable
Also has a history of vocal cord dysfunction-appears to be stable at this moment
AutoPap therapy at nighttime with oxygen-patient brought own machine
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 Villanueva is at [place]-was declined-of note Dr. Cagle reviewed the case with [facility] pulmonary/heating element builder on 06/23/2023 and they would not
accept patient as stated they would not have anything to offer-minimal hematology and allergy consultation available and recommended checking with [facility] which dosed on staff already has
Hematology evaluation locally-correspondence reviewed-Dr. Blank reviewed the case with Dr. Villanueva-patient has been banned from admissions to [place], [facility] also refuses admissions stating they would not be able to
do anything else for her, case was also discussed with Dr. Saravanan gutierrez and the internal medicine hospitalist at [facility] and they also declined transfer. She also left message with [facility] group who specializes in mast cell disorders-Dr. Geovani Bernstein to
discuss the patient.
Dr. Cagle reviewed the case with Dr. Campa and Dr. Rich extensively on 06/26/2023-consider genetic testing for hereditary forms if not previously done, titrate cromolyn sodium and possibly try other mast cell stabilizers-critical care pharmacy also
involved as may need compounding to make oral medication-Dr. Cagle willing to write prescription which would be taken to [facility] pharmacy for compounding-completed and medication initiated 06/27/2023.
Cromolyn sodium will be slowly increased doses up to 1000 mg 4 times daily-usually increasing slowly by 100 mg 4 times daily weekly-currently at 300 mg 4 times daily
Compounding [facility] pharmacy of Ketotifen 2 mg twice daily initiated as a mast cell stabilizer as well on 06/27/2023-told patient this could be a 'game changer' to control her disease and wean her off steroids
Also will check tryptase level as should be elevated with flares
Tryptase level 11/06/2020-less than 2
Tryptase level 06/26/2023-pending
Also check histamine levels which should be elevated with flares
Consider genetic testing if not previously done for hereditary forms
Benadryl intravenously-continues as well as boluses as needed
Ativan continues as needed
Methylprednisolone without change-Hope to begin to reduce-already has osteoporosis and compression fractures
DuoNebs
Continue with Gleevec
Hydrea-to be increased to 500 mg twice daily
Allergy/immunology consultation recommended
Note: Percutaneous G/J-tube replaced 06/25/2023
Carbidopa/levodopa for her dystonia continues
Analgesia including Dilaudid per primary team-monitor for oversedation
Psychiatric evaluation performed 06/25/2023-patient reports seeing mental health professionals multiple times in the past and is currently on 2 separate Zoom therapies weekly-reviewed correspondence and personally spoke to psychiatry on 06/27/2023
DVT prophylaxis-on Lovenox
Nutrition
Early mobilization/physical therapy consult as well as Occupational Therapy consult
Outpatient pulmonary/sleep disorders tiucyd-fb-CzDr. Law
Dr. Cagle reviewed with mother-Bobby on 06/24/2023-updated current clinical situation, prognosis, and treatment plan
Critical care statement: A total of 38 minutes of critical care time was provided for this patient today. This includes management of unstable vital signs, evaluation of the patient at bedside, reviewing the patient's pertinent medical records
including radiographs, management of anaphylaxis, epinephrine, Benadryl drip, microbiology, laboratory evaluations, and discussion with primary team, consultants, pharmacy, nutrition, physical therapy, case management, charge nurse, critical care
nursing, and respiratory therapy.
Diagnostic data:
Chest x-ray 01/16/2021-NAD
Chest x-ray 02/16/2023-lungs clear
Chest x-ray 06/20/2023-lungs clear, right PICC line in place
PKG-Sukfin-1/19/2019-МАРИЯ-6, desaturation fidencio 91%, AutoPap
MSLT Religion 03/18/2019--2/5 SOREM
Subjective Dataa
Subjective Data
Date of Service:
Date of Service: June 28, 2023
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
Subjective:
2 episodes overnight, not requiring epinephrine, currently no shortness of breath, stridor, chest pain
Review of Systems
General: Other (Per HPI)
Objective Data
Data Reviewed
Vital Signs / I&O / Oxygen:
Vital Signs
Temp Pulse Resp BP Pulse Ox
98.4 F 106 17 127/93 94
06/28/23 07:25 06/28/23 06:19 06/28/23 06:00 06/28/23 06:19 06/28/23 06:00
Intake and Output
06/27/23 06/28/23 06/29/23
06:59 06:59 06:59
Intake Total 1560 / 1625 2840 / 2840
Output Total 4900 / 4900 2100 / 2100
Balance -3340 / -3275 740 / 740
SaO2 94
Nasal Cannula flow liters per 3
minute
Physical Exam
General: Respiratory Distress (n), Comfortable and Other (No stridor)
HEENT: Normocephalic and Anicteric
Cardiovascular: Regular Rhythm and Murmur
Respiratory: Wheeze (n), Crackles (n), Rhonchi (n), Non-Labored Respirations and Accessory Resp Muscle Use (n)
GI: Soft, Non Distended and Non Tender
Neurology: Awake, Alert and No Motor Deficits
Skin: Warm, Good Color, Cyanosis (n), Jaundice (n) and Rash (n)
Labs/Micro/Reports
Lab Data
06/28/23 03:59
06/28/23 03:59
[2023-06-28] MEDS: GASTROCROM 300 MG TUBE ×4 (07:53→22:18)
--- NOTE | 2023-06-28 08:00 | PTCARENOTE ---
Assumed care of pt at 0715 following shift report. Pt awake and sitting up in bed, preparing to eat breakfast. Pt denies any c/o pain or discomfort at present. Physical assessment completed as documented. Benadryl gtt infusing at 15ml/hr and NS at
50ml/hr via Rt triple lumen PICC. Pt on O2 at 3l/min w/ POx 92-98%. No respiratory distress. Pure Wick in use. Gtube to gravity drainage. Comfort care provided. Call daniel w/in pt reach.
--- NOTE | 2023-06-28 08:20 | W.PN.HOSP.TC ---
Today's Communication/Plan
-
see bold
Assessment / Plan
Assessment / Plan
32-year-old female past medical history of who presented with a mast cell flare.�Currently awaiting transfer to [place] as per her mimeograph operator Dr. Villanueva at [facility].
Gen: NAD, AAOx3, appears chronically ill, cushingoid appearance.
Eyes: EOMI, PERRLA, no scleral icterus.
Neck: supple.
CV: tachy, reg rhythm, +S1/S2, no m/r/g.
Resp: continues to remain CTAB anteriorly, no rales, wheezes, or rhonchi.
Abd: +BS, soft, NT, ND
Skin: No rashes.
Neuro: CN 2-12 intact, non-focal.
Psych: Normal mood and affect.
Mast Cell Activation Syndrome flare, with DOPA-Responsive Dystonia, Recurrent Anaphylaxis/Mast Cell Flare Episodes:
-cont maintenance medications including standing Ativan / Benadryl (pump), etc.
-cont Methylprednisolone 50mg IV Q12H, Benadryl infusion, PRN DuoNebs
-cont Gleevec
-cont carbidopa-levodopa for dystonia
-Patient continues to have multiple flares while hospitalized requiring multiple doses of epinephrine (4 doses of 0.3mg epi given in last 24 hours)
-Heme-onc and psych following
-on 06/23/23 pt was declined transfer to [facility] and [place]
-Cromolyn Sodium to increased to 300mg QID. Will continue to increase as able and as pt is agreeable.
-GJ-tube replaced by IR on 06/24/23
-case discussed at length with Drs. Cagle and Lokesh on 06/26/23. Pt started compounded Ketotifen Fumarate 06/27/23.
-tryptase and who blood histamine levels pending
-with benadryl pump would avoid additional doses of Benadryl
Other problems:
POTS disease: Continue propranolol
Chronic Nausea/Esophageal Dysmotility: Continue diet as tolerated. Continue G-tube to gravity for chronic nausea. Meds via J-tube. She is scheduled to have GJ tube exchange within a few days
Steroid-Induced DM2: cont Lantus/premeal Novology/SSI/accuchecks
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
h/o DVT/PE: cont Lovenox 1mg/kg SC Q12H
h/o Migraine headaches: Continue Nurtec
Case discussed with RN.
FULL/Lovenox
Total critical care time spent = 31 min (pt being treated with multiple doses of epi)
Anticipated Discharge: > 48 hours
Subjective/Interval History
-
Date of Service: June 28, 2023
No new complaints.
Objective Data
-
Labs:
Laboratory Results
06/28/23
03:59
WBC 7.2
Hgb 8.6 L D
Hct 25.7 L
Plt Count 152 D
Sodium 139
Potassium 3.5
Chloride 110 H
Carbon Dioxide 26
BUN 9
Creatinine 0.3 L
Glucose 134 H
Calcium 7.3 L D
Vital Signs:
Vital Signs
Temp Pulse Resp BP Pulse Ox
98.4 F 106 17 127/93 94
06/28/23 07:25 06/28/23 06:19 06/28/23 06:00 06/28/23 06:19 06/28/23 06:00
I&O
06/27/23 06/28/23 06/29/23
06:59 06:59 06:59
Intake Total 1560 / 1625 2840 / 2905 130 / 130
Output Total 4900 / 4900 2100 / 2100
Balance -3340 / -3275 740 / 805 130 / 130
[2023-06-28] MEDS: VITAMIN C 1250 MG PO (08:49)
[2023-06-28] MEDS: HYDREA 500 MG PO ×2 (08:49→19:45)
[2023-06-28] MEDS: MIRALAX TUBE (08:50)
[2023-06-28] MEDS: MYLICON 80 MG PO (08:50)
[2023-06-28] MEDS: LIDOCAINE 4% PATCH 1 PATCH TOPICAL (08:50)
[2023-06-28] MEDS: NON-FORMULARY ITEM 2 MG PO ×2 (08:51→19:44)
[2023-06-28] MEDS: ZADITOR 1 DROP OPHTH ×3 (08:52→22:20)
[2023-06-28] MEDS: NON-FORMULARY ITEM 80 MG PO (08:53)
[2023-06-28 09:15] LABS: Hematocrit 37.3 % (37.0-47.0); Hemoglobin 11.9 g/dL (12.0-16.0); Mean Corp Hgb Conc. 31.9 g/dL (33.0-37.0); Mean Corpuscular Hgb 34.1 pg (27.0-31.0); Mean Corpuscular Volume 106.9 fL (81.0-99.0); Mean Platelet Volume 9.3 fL (7.4-10.4); Platelet Count 197 10^3/uL (130-400); Red Blood Cell Count 3.49 10^6/uL (4.20-5.40); Red Cell Dist. Width 14.8 % (11.5-14.5); White Blood Cell Count 10.5 10^3/uL (4.8-10.8)
[2023-06-28 09:57] LABS: Blood Urea Nitrogen 11 mg/dl (7-17); Calcium 8.5 mg/dl (8.4-10.2); Carbon Dioxide 26 mmol/L (22-30); Chloride 102 mmol/L (98-107); Estimated Creatinine Clearance > 125 ml/min; Glucose 263 mg/dl (70-99); Potassium 3.9 mmol/L (3.5-5.1); Sodium 134 mmol/L (135-145); eGFR > 60.00
[2023-06-28] MEDS: DUONEB 3 ML INH ×2 (10:27→14:04)
[2023-06-28] MEDS: ADRENALIN 0.299999999999999989 MG IM ×4 (10:28→23:59)
--- NOTE | 2023-06-28 10:30 | PTCARENOTE ---
Pt rang sanchez alerting staff to mast cell flare symptoms. HR noted to be 130-150's. Pt found to be shaking vigorously with upper extremities contracted. Face flushed. Frequent dry cough. Pt requesting and given Ativan 2mg IV, Benadryl 25mg IV and
Dilaudid 2mg IV. No stridor or wheezes evident. POx 98% on O2 at 3l/min. With continued reaction after meds administered, pt requesting Duoneb tx. Resp Therapist alerted of pt's request and to bedside to administer tx. Approx 5 minutes into Duoneb
tx, pt's symptoms- dry cough, tachypnea, shakes, contracted extremities remained unchanged and pt stating 'my throat feels like it's closing'. No stridor noted, although pt w/ very slight expiratory wheeze. Epi 0.3mg IM given. W/in 5 minutes of Epi
dose, pt's shaking and socrates of upper extremities resolved and respirations much improved- no longer tachypneic or with wheeze. Pt's HR gradually returned to baseline low 100's. SBP as documented. Pt's face flushed and skin diaphoretic.
Comfort care and emotional support provided. Pt resting quietly with resolution of symptoms.
[2023-06-28] MEDS: NON-FORMULARY ITEM 180 MG PO ×2 (11:01→14:33)
[2023-06-28] MEDS: LOVENOX 90 MG SC ×2 (11:02→22:19)
[2023-06-28] MEDS: NON-FORMULARY ITEM 2 SPRAY NASAL (11:02)
[2023-06-28] MEDS: PEPCID 40 MG IV ×2 (11:03→22:19)
[2023-06-28] MEDS: NSS (PRESERVATIVE FREE) 16 ML IV ×2 (11:03→22:19)
[2023-06-28] MEDS: VITAMIN D3 (cholecalciferol) 50 MCG PO (11:03)
[2023-06-28] MEDS: OSCAL 500 + D 500 MG PO ×2 (11:05→17:50)
[2023-06-28] MEDS: VITAMIN B1 100 MG TUBE (11:05)
[2023-06-28] MEDS: NSS 1000 IV (11:06)
[2023-06-28 11:52] LABS: Glucose - Point of Care 293 mg/dl (70-99)
[2023-06-28] MEDS: NOVOLOG FLEXPEN-MODERATE RESISTANCE 5 UNITS SC (11:56)
[2023-06-28] MEDS: NON-FORMULARY ITEM 200 MG PO (11:58)
[2023-06-28] MEDS: BENADRYL 250 MG IV (12:00)
--- NOTE | 2023-06-28 12:05 | PTCARENOTE ---
Pt awake, alert, with no complaints and agreeable to AM hygiene and getting OOB to chair. Shampoo cap and CHG bath administered. Linens changed. Pt assisted w/ placing own neck and back brace and able to move self to sit at edge of bed and stand w/
minimal assist of one. Transferred to chair using rolling walker. Gait steady. Comfort care provided. Lunch tray arrived. Meds administered. Call daniel w/in pt reach and safe environment maintained.
--- NOTE | 2023-06-28 14:25 | PTCARENOTE ---
Pt's mother here to visit. Pt was sitting OOB in chair and requesting to return to bed. With return to bed, pt started w/ frequent coughing, body shakes, socrates upper extremities 'I'm having an episode again'. HR up to 150-160's. POx remains
93-95% on O2 at 3l/min. Jamel Peralta RN in room w/ pt and administered Ativan and Benadryl as documented in JUL. Pt then c/o 'horrible pain in my back from sitting up in the chair'. Pt requesting Dilaudid- administered per JUL. Pt continued to have
near continuous coughing. Simon Text to Resp Therapy requesting prn neb tx. Pt then started w/ audible wheezing (Pox 94%) and requesting Epinephrine 0.3mg IM - administered per JUL. Comfort care and emotional support provided. Within 20 minutes of
Epi administration pt's shaking and contractures of UE resolved. Cough very infrequent w/ POx 95-97%. No resp distress. Pt able to drink smoothie brought to hospital by pt's mom and asking her mother what 'game' she would like to play during their
visit. Call sanchez remains w/in pt reach and safe environment maintained.
[2023-06-28] MEDS: SINEMET 25-100 2 TABLET TUBE ×2 (14:33→17:48)
[2023-06-28 16:44] LABS: Glucose - Point of Care 122 mg/dl (70-99)
--- NOTE | 2023-06-28 17:30 | PTCARENOTE ---
Pt resting quietly in bed. No complaints offered at this time. Eating dinner. No further episodes of Mast cell flare symptoms
[2023-06-28] MEDS: NOVOLOG FLEXPEN-MODERATE RESISTANCE SC (17:46)
[2023-06-28] MEDS: ZYRTEC 10 MG TUBE ×2 (17:48→22:20)
--- NOTE | 2023-06-28 18:13 | W.PN.UPDATE ---
Update Note
Progress Note Update
Pt seen at bedside, chart reviewed. She was clear that she was not interested in making changes to her current psychiatric tx (DBT and EMDR therapies), nor did she want to trial psychotropics. She expressed frustration at feeling that her illness
was questioned and the implication that it was psychosomatic - she did acknowledge however thst her mental health was significantly affected by her illness, and that her mental health could affect her illness as well. She was pleasant throughout,
though at times tearful when talking about her 'hopes' for her future.
Pt is not open to psychiatric intervention at this time.
[2023-06-28] MEDS: FEOSOL 325 MG PO (22:20)
[2023-06-28 22:52] LABS: Glucose - Point of Care 243 mg/dl (70-99)
[2023-06-29] VITALS (17 sets, daily range): BP systolic 120–161; BP diastolic 81–110; BMI 32.6
[2023-06-29] MEDS: DUONEB 3 ML INH ×2 (00:19→20:22)
[2023-06-29] MEDS: ZOFRAN 4 MG IV ×2 (00:47→15:25)
--- NOTE | 2023-06-29 00:52 | PTCARENOTE ---
Around 2330, patient experiencing second attack of the shift. Dry cough, dystonia, tachycardia. No improvement with Benadryl/Ativan/Dilaudid. Pt requesting Epi for tightness in throat and tongue swelling. Epi administered IM x2 before relief. Duoneb
administered by RT. Patient back to baseline. VSS.
[2023-06-29] MEDS: NSS 1000 IV ×2 (04:37→23:09)
[2023-06-29] MEDS: BENADRYL 250 MG IV ×2 (04:37→20:30)
[2023-06-29] MEDS: ATIVAN 1 MG SL ×4 (05:11→23:10)
[2023-06-29] MEDS: SUBUTEX 2 MG SL ×4 (05:11→23:09)
[2023-06-29] MEDS: LIORESAL 10 MG PO ×3 (05:11→21:18)
[2023-06-29] MEDS: SINEMET 25-100 1.5 TABLET TUBE ×2 (05:11→10:21)
[2023-06-29] MEDS: TYLENOL 650 MG TUBE ×4 (05:11→23:10)
[2023-06-29] MEDS: INDERAL 10 MG TUBE ×3 (05:12→21:17)
[2023-06-29] MEDS: SOLU-MEDROL PF 50 MG IV (05:12)
[2023-06-29 05:21] LABS: Hematocrit 36.9 % (37.0-47.0); Mean Corp Hgb Conc. 32.5 g/dL (33.0-37.0); Mean Corpuscular Hgb 34.2 pg (27.0-31.0); Mean Corpuscular Volume 105.1 fL (81.0-99.0); Mean Platelet Volume 9.5 fL (7.4-10.4); Platelet Count 198 10^3/uL (130-400); Red Blood Cell Count 3.51 10^6/uL (4.20-5.40); Red Cell Dist. Width 14.8 % (11.5-14.5); White Blood Cell Count 11.1 10^3/uL (4.8-10.8)
[2023-06-29] MEDS: BENADRYL 25 MG IV ×4 (05:25→20:22)
[2023-06-29] MEDS: DILAUDID 2 MG IV ×4 (05:25→20:22)
[2023-06-29] MEDS: NON-FORMULARY ITEM 75 MG PO (05:42)
--- NOTE | 2023-06-29 05:47 | PTCARENOTE ---
Pt with 3 attacks overnight, varying in severity. No changes.
[2023-06-29 05:57] LABS: Blood Urea Nitrogen 12 mg/dl (7-17); Calcium 9.1 mg/dl (8.4-10.2); Carbon Dioxide 29 mmol/L (22-30); Chloride 102 mmol/L (98-107); Estimated Creatinine Clearance > 125 ml/min; Glucose 132 mg/dl (70-99); Potassium 4.6 mmol/L (3.5-5.1); Sodium 135 mmol/L (135-145); eGFR > 60.00
--- NOTE | 2023-06-29 07:32 | W.PN.INTV ---
Today's Communication / Plan
Recommendations
Decrease steroids
Tryptase levels noted
Encouraged decreased opiates, benzodiazepine use
Increase mast cell stabilizers as needed
Assessment
-
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
and chronic pain syndrome presented with mast cell activation/anaphylaxis requiring epinephrine, steroids, and intravenous Benadryl necessitating intensive care unit monitoring-flexboard operator consulted for anaphylaxis/mast cell activation
syndrome/critical care management 06/23/2023.
Assessment
Mast cell activation syndrome with flare-unclear how diagnosis was made-followed by Dr. Villanueva
Recurrent suspicion by clinicians that majority of these flares are not real-psychiatry believes patient 'believes she has real events'-difficult situation as treatment may be worse than the disease-osteoporosis, etc.
Mild leukocytosis
Macrocytosis-MCV 103.5
Hyperglycemia
Conditions present prior to admission:
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
POTS.
Dopa sensitive dystonia.
DVT/PE.
Steroid-induced diabetes.
Steroid-induced osteoporosis.
Multiple compression fractures.
Chronic pain syndrome.
GERD.
Migraine headaches.
Obstructive sleep apnea on AutoPap-last seen by Dr. Cagle 03/2021-now followed by Dr. Maria
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
Restless leg syndrome.
Insomnia.
Asthma.
Vocal cord dysfunction.
Anxiety.
Neurocardiogenic syncope.
Bodesd-Ahvbfn-bpcbtvoeqwfod type.
Chronic vertigo.
Raynaud's.
IBS.
Gastroparesis.
Covid 12/2021
Plan
Critically ill with ongoing mast cell destabilization flare-requiring up to 5 times daily epinephrine/Benadryl/Ativan/hydromorphone administration
Supplemental oxygen as needed
Aspiration precautions
Incentive spirometry
Nebulizers if needed-currently not bronchospastic-has history of asthma-currently stable
Also has a history of vocal cord dysfunction-appears to be stable at this moment
AutoPap therapy at nighttime with oxygen-patient brought own machine
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 Villanueva is at [place]-was declined-of note Dr. Cagle reviewed the case with [facility] pulmonary/flexboard operator on 06/23/2023 and they would not
accept patient as stated they would not have anything to offer-minimal hematology and allergy consultation available and recommended checking with [facility] which dosed on staff already has
Hematology evaluation locally-correspondence reviewed-Dr. Blank reviewed the case with Dr. Villanueva-patient has been banned from admissions to [place], [facility] also refuses admissions stating they would not be able to
do anything else for her, case was also discussed with Dr. Saravanan gutierrez and the internal medicine hospitalist at [facility] and they also declined transfer. She also left message with [facility] group who specializes in mast cell disorders-Dr. Geovani Bernstein to
discuss the patient.
Dr. Cagle reviewed the case with Dr. Campa and Dr. Rich extensively on 06/26/2023-consider genetic testing for hereditary forms if not previously done, titrate cromolyn sodium and possibly try other mast cell stabilizers-critical care pharmacy also
involved as may need compounding to make oral medication-Dr. Cagle willing to write prescription which would be taken to [facility] pharmacy for compounding-completed and medication initiated 06/27/2023.
Cromolyn sodium will be slowly increased doses up to 1000 mg 4 times daily-usually increasing slowly by 100 mg 4 times daily weekly-currently at 300 mg 4 times daily
Compounding [facility] pharmacy of Ketotifen 2 mg twice daily initiated as a mast cell stabilizer as well on 06/27/2023-told patient this could be a 'game changer' to control her disease and wean her off steroids
Also will check tryptase level as should be elevated with flares
Tryptase level 11/06/2020-less than 2
Tryptase level 06/26/2023-1.4 and within normal limits-should be elevated with true flare
Random histamine level 06/26/2023-pending
Consider genetic testing if not previously done for hereditary forms
Benadryl intravenously-continues as well as boluses as needed
Ativan continues as needed
Methylprednisolone-decrease to 25 mg IV every 12 hours on 06/29/2023
DuoNebs as needed
Continue with Gleevec per hematology
Hydrea-to be increased to 500 mg twice daily
Allergy/immunology consultation recommended
Dr. Cagle had long discussion with patient attempting to set up 'goals'-told patient care team attempting to get to the 'root of the problem' which is mast cell stabilization-with the sincere hopes of increasing cromolyn sodium and initiating
Ketotifen-subsequently she will not need epinephrine, opiates, benzodiazepines, Benadryl, and steroids-encouraged decrease use of opiates and benzodiazepines, will reduce steroids, and hopefully Benadryl will be decreased as well
Note: Percutaneous G/J-tube replaced 06/25/2023
Carbidopa/levodopa for her dystonia continues
Analgesia including Dilaudid per primary team-monitor for oversedation
Psychiatric evaluation performed 06/25/2023-patient reports seeing mental health professionals multiple times in the past and is currently on 2 separate Zoom therapies weekly-reviewed correspondence and personally spoke to psychiatry on 06/27/2023
DVT prophylaxis-on Lovenox
Nutrition
Early mobilization/physical therapy consult as well as Occupational Therapy consult
Outpatient pulmonary/sleep disorders tuwudv-tb-QsDr. Law
Dr. Cagle reviewed with mother-Bobby on 06/24/2023-updated current clinical situation, prognosis, and treatment plan
Critical care statement: A total of 36 minutes of critical care time was provided for this patient today. This includes management of unstable vital signs, evaluation of the patient at bedside, reviewing the patient's pertinent medical records
including radiographs, management of anaphylaxis, epinephrine, Benadryl drip, microbiology, laboratory evaluations, and discussion with primary team, consultants, pharmacy, nutrition, physical therapy, case management, charge nurse, critical care
nursing, and respiratory therapy.
Diagnostic data:
Chest x-ray 01/16/2021-NAD
Chest x-ray 02/16/2023-lungs clear
Chest x-ray 06/20/2023-lungs clear, right PICC line in place
IWB-Yrrfjk-7/19/2019-МАРИЯ-6, desaturation fidencio 91%, AutoPap
MSLT Gnosticism 03/18/2019--2/5 SOREM
Subjective Dataa
Subjective Data
Date of Service:
Date of Service: June 29, 2023
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
Subjective:
Still having up to 5 events over 24., Overall less epinephrine use, no complaints of shortness of breath, stridor, abdominal pain
Review of Systems
General: Other (Per HPI)
Objective Data
Data Reviewed
Vital Signs / I&O / Oxygen:
Vital Signs
Temp Pulse Resp BP Pulse Ox
98.3 F 94 10 145/94 95
06/29/23 04:39 06/29/23 06:00 06/29/23 06:00 06/29/23 06:00 06/29/23 06:00
Intake and Output
06/28/23 06/29/23 06/30/23
06:59 06:59 06:59
Intake Total 2840 / 2905 3000 / 3000
Output Total 2100 / 2100 4500 / 4500
Balance 740 / 805 -1500 / -1500
SaO2 95
Nasal Cannula flow liters per 3
minute
Physical Exam
General: Respiratory Distress (n), Comfortable and Other (No stridor)
HEENT: Normocephalic and Anicteric
Cardiovascular: Regular Rhythm and Murmur
Respiratory: Wheeze (n), Crackles (n), Rhonchi (n), Non-Labored Respirations and Accessory Resp Muscle Use (n)
GI: Soft, Non Distended and Non Tender
Neurology: Awake, Alert and No Motor Deficits
Skin: Warm, Good Color, Cyanosis (n), Jaundice (n) and Rash (n)
Labs/Micro/Reports
Lab Data
06/29/23 04:46
06/29/23 04:46
[2023-06-29 07:45] LABS: Glucose - Point of Care 150 mg/dl (70-99)
[2023-06-29] MEDS: NOVOLOG FLEXPEN 9 UNITS SC ×3 (07:54→17:42)
[2023-06-29] MEDS: NOVOLOG FLEXPEN-MODERATE RESISTANCE 1 UNITS SC ×2 (07:55→11:58)
[2023-06-29] MEDS: LANTUS 0.220000000000000001 UNITS SC (07:55)
[2023-06-29] MEDS: GASTROCROM 300 MG TUBE ×4 (07:57→21:17)
[2023-06-29] MEDS: MIRALAX 17 GRAMS TUBE (07:59)
[2023-06-29] MEDS: HYDREA 500 MG PO ×2 (07:59→21:14)
[2023-06-29] MEDS: NON-FORMULARY ITEM 20 MG PO ×2 (07:59→17:44)
[2023-06-29] MEDS: NON-FORMULARY ITEM 80 MG PO (08:00)
[2023-06-29] MEDS: VITAMIN C 1250 MG PO (08:01)
[2023-06-29] MEDS: MYLICON 80 MG PO (08:01)
[2023-06-29] MEDS: NON-FORMULARY ITEM 2 MG PO ×2 (08:02→21:16)
[2023-06-29] MEDS: ZADITOR 1 DROP OPHTH ×3 (08:03→21:19)
--- NOTE | 2023-06-29 08:25 | PTCARENOTE ---
Assumed care of pt at 0715 following shift report. Pt awake and resting quietly in bed, using personal cell phone. Pt denies any c/o pain at present. Reports 'several episodes overnight, but I think they are getting better'. No new complaints. Pt
remains on O2 at 3l/min w/ POx 96%. GJ tube present w/ J tube clamped and G tube to gravity drainage bag-w/ small amount of light brown drainage noted in bag. Benadryl gtt at 15ml/hr and NS at 50ml/hr infusing via Rt UA PICC. Ordered AM meds
administered as requested by pt. Physical assessment completed and comfort care provided. Call daniel w/in pt reach and safe environment maintained.
--- NOTE | 2023-06-29 09:11 | W.PN.HOSP.TC ---
Today's Communication/Plan
-
see bold
Assessment / Plan
Assessment / Plan
32-year-old female past medical history of who presented with a mast cell flare.�Currently awaiting transfer to [place] as per her entry level marketing representative Dr. Villanueva at [place].
Gen: remains NAD, AAOx3, appears chronically ill, cushingoid appearance.
Eyes: EOMI, PERRLA, no scleral icterus.
Neck: supple.
CV: remains tachy, reg rhythm, +S1/S2, no m/r/g.
Resp: CTAB anteriorly, no rales, wheezes, or rhonchi.
Abd: +BS, soft, NT, ND
Skin: No rashes.
Neuro: remains CN 2-12 intact, non-focal.
Psych: Normal mood and affect.
Mast Cell Activation Syndrome flare, with DOPA-Responsive Dystonia, Recurrent Anaphylaxis/Mast Cell Flare Episodes:
-cont maintenance medications including standing Ativan / Benadryl (pump), etc.
-cont Methylprednisolone 50mg IV Q12H, Benadryl infusion, PRN DuoNebs
-cont Gleevec
-cont carbidopa-levodopa for dystonia
-Patient continues to have multiple flares while hospitalized requiring multiple doses of epinephrine (4 doses of 0.3mg epi given in last 24 hours)
-Heme-onc and psych following
-on 06/23/23 pt was declined transfer to [place] and [place]
-Cromolyn Sodium to increased to 300mg QID. Will continue to increase as able and as pt is agreeable.
-GJ-tube replaced by IR on 06/24/23
-case discussed at length with Drs. Cagle and Lokesh on 06/26/23. Pt started compounded Ketotifen Fumarate 06/27/23.
-tryptase normal
-whole blood histamine level pending
-with Benadryl pump would avoid additional doses of Benadryl
-Case discussed with nursing on 06/29/23 and nursing reports that hypoxemia does not worsen when patient has her attacks
Other problems:
POTS disease: Continue propranolol
Chronic Nausea/Esophageal Dysmotility: Continue diet as tolerated. Continue G-tube to gravity for chronic nausea. Meds via J-tube. She is scheduled to have GJ tube exchange within a few days
Steroid-Induced DM2: cont Lantus/premeal Novology/SSI/accuchecks
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
h/o DVT/PE: cont Lovenox 1mg/kg SC Q12H
h/o Migraine headaches: Continue Nurtec
FULL/Lovenox
Total critical care time spent = 33 min (pt being treated with multiple doses of epi daily)
Anticipated Discharge: > 48 hours
Subjective/Interval History
-
Date of Service: June 29, 2023
Patient reports her attacks seem to be getting less severe.
Objective Data
-
Labs:
Laboratory Results
06/29/23
04:46
WBC 11.1 H
Hgb 12.0
Hct 36.9 L
Plt Count 198
Sodium 135
Potassium 4.6
Chloride 102
Carbon Dioxide 29
BUN 12
Creatinine 0.3 L
Glucose 132 H
Calcium 9.1
Vital Signs:
Vital Signs
Temp Pulse Resp BP Pulse Ox
98.4 F 94 10 145/94 95
06/29/23 07:30 06/29/23 06:00 06/29/23 06:00 06/29/23 06:00 06/29/23 06:00
I&O
06/28/23 06/29/23 06/30/23
06:59 06:59 06:59
Intake Total 2840 / 2905 3000 / 3000
Output Total 2100 / 2100 4500 / 4500
Balance 740 / 805 -1500 / -1500
[2023-06-29] MEDS: ATIVAN 2 MG IV ×3 (10:05→20:21)
[2023-06-29] MEDS: LOVENOX 90 MG SC ×2 (10:17→21:13)
[2023-06-29] MEDS: NON-FORMULARY ITEM 2 SPRAY NASAL (10:18)
[2023-06-29] MEDS: NON-FORMULARY ITEM 180 MG PO ×2 (10:19→14:20)
[2023-06-29] MEDS: NSS (PRESERVATIVE FREE) 16 ML IV ×2 (10:20→21:18)
[2023-06-29] MEDS: PEPCID 40 MG IV ×2 (10:20→21:18)
[2023-06-29] MEDS: OSCAL 500 + D 500 MG PO ×2 (10:20→17:45)
[2023-06-29] MEDS: VITAMIN D3 (cholecalciferol) 50 MCG PO (10:22)
[2023-06-29] MEDS: VITAMIN B1 100 MG TUBE (10:22)
[2023-06-29] MEDS: LIDOCAINE 4% PATCH 1 PATCH TOPICAL (10:25)
--- NOTE | 2023-06-29 10:30 | PTCARENOTE ---
0958 Pt rang and found to be having mast cell flare symptoms- shaking and upper extremities contracted, face and extremities flushed. Only occasional dry cough. HR 130's. POx remained unchanged at 96-98% throughout entire episode. Pt medicated w/
Benadryl 25mg IV, Ativan 2mg IV and Dilaudid 2mg IV. Resolution of symptoms noted w/in 25 minutes w/ pt no longer shaking and ROM to extremities at baseline.
--- NOTE | 2023-06-29 11:50 | PTCARENOTE ---
[facility] bath, hygiene completed. Pt OOB to chair w/ use of neck and back brace. Tolerated increased activity w/o complaint or complication. Oral hygiene and personal hygiene items provided for pt to use. Comfort care provided. Call sanchez w/in pt reach.
No changes from previous assessment findings.
[2023-06-29 11:53] LABS: Glucose - Point of Care 196 mg/dl (70-99)
[2023-06-29] MEDS: NON-FORMULARY ITEM 200 MG PO (14:20)
[2023-06-29] MEDS: SINEMET 25-100 2 TABLET TUBE ×2 (14:21→17:45)
--- NOTE | 2023-06-29 15:45 | PTCARENOTE ---
Pt requesting to return to bed after sitting in chair fo approx 2hrs. Back/neck brace used during transfer and pt assisted to bed using rolling walker. Tolerated well although once settled in bed, pt began w/ shaking/gross tremors and contractures
of bilateral UE's. Skin flushed. HR 120-130's (previously around 100). Pt c/o mass cell symptom flare and requesting 'rescue meds'. Benadryl, Ativan and Dilaudid given as documented in MAR. Comfort care and emotional support provided. Pt's symptoms
abated w/in 25-30 minutes. Pt then c/o nausea and requesting Zofran- given as documented in MAR. Attempted to use bedpan for BM- unsuccessful. Mom gone home. Call sanchez and requested pt's belongings w/in pt reach.
[2023-06-29 16:50] LABS: Glucose - Point of Care 119 mg/dl (70-99)
[2023-06-29] MEDS: NOVOLOG FLEXPEN-MODERATE RESISTANCE SC (17:25)
[2023-06-29] MEDS: SOLU-MEDROL PF 25 MG IV (17:45)
[2023-06-29] MEDS: ZYRTEC 10 MG TUBE ×2 (17:46→21:20)
[2023-06-29] MEDS: NSS (PRESERVATIVE FREE) 1 ML IV (20:22)
[2023-06-29] MEDS: ADRENALIN 0.299999999999999989 MG IM ×2 (20:30→20:42)
--- NOTE | 2023-06-29 20:30 | PTCARENOTE ---
pt with 1 episode of mast cell symptoms. prn meds given per mar, also required prn epi x 2. otherwise, full assessment on work list.
[2023-06-29] MEDS: FEOSOL 325 MG PO (21:14)
[2023-06-30] VITALS (16 sets, daily range): BP systolic 116–147; BP diastolic 77–109; BMI 32.9
[2023-06-30] MEDS: ATIVAN 2 MG IV ×6 (02:55→23:46)
[2023-06-30] MEDS: DILAUDID 2 MG IV ×5 (02:55→20:31)
[2023-06-30] MEDS: BENADRYL 25 MG IV ×6 (02:55→23:46)
[2023-06-30] MEDS: DUONEB 3 ML INH ×5 (03:12→20:36)
--- NOTE | 2023-06-30 03:30 | PTCARENOTE ---
pt with 2nd episode for shift- prn meds.neb given per MAR. symptoms not as severe as previous and pt recovered more quickly. no other changes in assessment.
[2023-06-30] MEDS: ZOFRAN 4 MG IV ×2 (03:39→10:53)
[2023-06-30] MEDS: MYLICON 80 MG PO ×2 (03:49→08:26)
[2023-06-30 04:09] LABS: Hemoglobin 12.8 g/dL (12.0-16.0); Mean Corp Hgb Conc. 32.8 g/dL (33.0-37.0); Mean Corpuscular Hgb 34.5 pg (27.0-31.0); Mean Corpuscular Volume 105.1 fL (81.0-99.0); Mean Platelet Volume 9.4 fL (7.4-10.4); Platelet Count 242 10^3/uL (130-400); Red Blood Cell Count 3.71 10^6/uL (4.20-5.40); White Blood Cell Count 12.4 10^3/uL (4.8-10.8)
[2023-06-30 04:35] LABS: Blood Urea Nitrogen 14 mg/dl (7-17); Calcium 9.3 mg/dl (8.4-10.2); Carbon Dioxide 29 mmol/L (22-30); Chloride 102 mmol/L (98-107); Estimated Creatinine Clearance > 125 ml/min; Glucose 109 mg/dl (70-99); Potassium 4.8 mmol/L (3.5-5.1); Sodium 135 mmol/L (135-145); eGFR > 60.00
[2023-06-30] MEDS: SUBUTEX 2 MG SL ×4 (06:19→23:56)
[2023-06-30] MEDS: SOLU-MEDROL PF 25 MG IV ×2 (06:19→17:11)
[2023-06-30] MEDS: TYLENOL 650 MG TUBE ×4 (06:21→23:56)
[2023-06-30] MEDS: INDERAL 10 MG TUBE ×3 (06:21→21:02)
[2023-06-30] MEDS: LIORESAL 10 MG PO ×3 (06:21→21:02)
[2023-06-30] MEDS: SINEMET 25-100 1.5 TABLET TUBE ×2 (06:21→10:09)
[2023-06-30] MEDS: ATIVAN 1 MG SL ×4 (06:23→23:56)
[2023-06-30 07:33] LABS: Glucose - Point of Care 113 mg/dl (70-99)
[2023-06-30] MEDS: NOVOLOG FLEXPEN-MODERATE RESISTANCE SC (07:59)
[2023-06-30] MEDS: NON-FORMULARY ITEM 1 MG PO ×4 (08:15→14:17)
[2023-06-30] MEDS: GASTROCROM 300 MG TUBE ×4 (08:16→21:02)
[2023-06-30] MEDS: LANTUS 0.220000000000000001 UNITS SC (08:18)
[2023-06-30] MEDS: NOVOLOG FLEXPEN 9 UNITS SC ×3 (08:21→17:57)
[2023-06-30] MEDS: LIDOCAINE 4% PATCH 1 PATCH TOPICAL (08:25)
[2023-06-30] MEDS: MIRALAX 17 GRAMS TUBE (08:25)
[2023-06-30] MEDS: HYDREA 500 MG PO ×2 (08:25→20:53)
[2023-06-30] MEDS: VITAMIN C 1250 MG PO (08:27)
[2023-06-30] MEDS: ZADITOR 1 DROP OPHTH ×3 (08:28→21:04)
--- NOTE | 2023-06-30 08:41 | W.PN.INTV ---
Today's Communication / Plan
Recommendations
Decrease steroids as tolerated
Tryptase levels noted
Encouraged decreased opiates, benzodiazepine use
Increase mast cell stabilizers as needed
Discuss public works laborer IV access prior to discharge - patient interested in obtaining Rose as she has fears that her PICC will fail as it has been in place for >10-11 months now and she has a Hx of peripheral venous stenosis
Assessment
-
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
and chronic pain syndrome presented with mast cell activation/anaphylaxis requiring epinephrine, steroids, and intravenous Benadryl necessitating intensive care unit monitoring-pinion polisher consulted for anaphylaxis/mast cell activation
syndrome/critical care management 06/23/2023.
Assessment
Mast cell activation syndrome with flare-unclear how diagnosis was made-followed by Dr. Villanueva
Recurrent suspicion by clinicians that majority of these flares are not real-psychiatry believes patient 'believes she has real events'-difficult situation as treatment may be worse than the disease-osteoporosis, etc.
Mild leukocytosis
Macrocytosis-MCV 103.5
Hyperglycemia -improved
Conditions present prior to admission:
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
POTS.
Dopa sensitive dystonia.
DVT/PE.
Steroid-induced diabetes.
Steroid-induced osteoporosis.
Multiple compression fractures.
Chronic pain syndrome.
GERD.
Migraine headaches.
Obstructive sleep apnea on AutoPap-last seen by Dr. Cagle 03/2021-now followed by Dr. Maria
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
Restless leg syndrome.
Insomnia.
Asthma.
Vocal cord dysfunction.
Anxiety.
Neurocardiogenic syncope.
Vymzfy-Clghpd-gqftjecyzsgvc type.
Chronic vertigo.
Raynaud's.
IBS.
Gastroparesis.
Covid 12/2021
Plan
Critically ill with ongoing mast cell destabilization flare-requiring up to 5 times daily epinephrine/Benadryl/Ativan/hydromorphone administration
Supplemental oxygen as needed
Aspiration precautions
Incentive spirometry
Nebulizers if needed-currently not bronchospastic-has history of asthma-currently stable
Also has a history of vocal cord dysfunction-appears to be stable at this moment
AutoPap therapy at nighttime with oxygen-patient brought own machine
Per Dr. Concepcion:
Mast cell flare treatment ongoing-initial plan was to transfer to [place] as her planer operator / grader Dr. Villanueva is at [place]-was declined-of note Dr. Cagle reviewed the case with [facility] pulmonary/pinion polisher on 06/23/2023 and they would not
accept patient as stated they would not have anything to offer-minimal hematology and allergy consultation available and recommended checking with [facility]
Hematology correspondence reviewed-Dr. Blank reviewed the case with Dr. Villanueva-patient has been banned from admissions to [place], [facility] also refuses admissions stating they would not be able to do anything else
for her, case was also discussed with Dr. Coe and the internal medicine hospitalist at [facility] and they also declined transfer. She also left message with [email or web address] group who specializes in mast cell disorders-Dr. Geovani Bernstein to discuss the patient.
Dr. Cagle reviewed the case with Dr. Campa and Dr. Rich extensively on 06/26/2023-consider genetic testing for hereditary forms if not previously done, titrate cromolyn sodium and possibly try other mast cell stabilizers-critical care pharmacy also
involved as may need compounding to make oral medication-Dr. Cagle willing to write prescription which would be taken to [facility] pharmacy for compounding-completed and medication initiated 06/27/2023.
Cromolyn sodium was going to be titrated up to 1000 mg 4 times daily-the issue with this is that the patient says that she has a difficult time obtaining this and if we increase her dose while hospitalized she will likely unable to be able to obtain
the same dosage as an outpatient. Continue 300 mg QID
[facility] pharmacy of Ketotifen 2 mg twice daily initiated as a mast cell stabilizer as well on 06/27/2023-told patient this could be a 'game changer' to control her disease and wean her off steroids
Checked tryptase levels which were normal:
Tryptase level 11/06/2020-less than 2
Tryptase level 06/26/2023-1.4 and within normal limits-should be elevated with true flare
Random histamine level 06/26/2023-pending
Consider genetic testing if not previously done for hereditary forms
Benadryl intravenously-continues as well as boluses as needed
Ativan continues as needed
Methylprednisolone-decreased to 25 mg IV every 12 hours on 06/29/2023
DuoNebs as needed
Continue with Gleevec per hematology
Hydrea-to be increased to 500 mg twice daily
Allergy/immunology consultation recommended
Dr. Cagle had long discussion with patient attempting to set up 'goals'-told patient care team attempting to get to the 'root of the problem' which is mast cell stabilization-with the sincere hopes of increasing cromolyn sodium and initiating
Ketotifen-subsequently she will not need epinephrine, opiates, benzodiazepines, Benadryl, and steroids-encouraged decrease use of opiates and benzodiazepines, will reduce steroids, and hopefully Benadryl will be decreased as well
Note: Percutaneous G/J-tube replaced 06/25/2023
Continue carbidopa/levodopa for her dystonia
Analgesia including Dilaudid per primary team-monitor for oversedation
Per Dr Concepcion - Psychiatric evaluation performed 06/25/2023-patient reports seeing mental health professionals multiple times in the past and is currently on 2 separate Zoom therapies weekly-reviewed correspondence and personally spoke to psychiatry
on 06/27/2023
DVT prophylaxis-on Lovenox therapeutic dose
Nutrition
Early mobilization/physical therapy consult as well as Occupational Therapy consult
Outpatient pulmonary/sleep disorders kgbppm-lk-YfDr. Law
I called mother, Bobby, twice with no answer. Will try again tomorrow.
Critical care statement: A total of 37 minutes of critical care time was provided for this patient today. This includes management of unstable vital signs, evaluation of the patient at bedside, reviewing the patient's pertinent medical records
including radiographs, management of anaphylaxis, epinephrine, Benadryl drip, microbiology, laboratory evaluations, and discussion with primary team, consultants, pharmacy, nutrition, physical therapy, case management, charge nurse, critical care
nursing, and respiratory therapy.
Diagnostic data:
Chest x-ray 01/16/2021-NAD
Chest x-ray 02/16/2023-lungs clear
Chest x-ray 06/20/2023-lungs clear, right PICC line in place
CXR 06-24-2023: No active cardiopulmonary disease; the tip of the new right-sided PICC line extends to the cavoatrial junction
NWS-Elyfys-6/19/2019-МАРИЯ-6, desaturation fidencio 91%, AutoPap
MSLT Kihei 03/18/2019--06/23 SOREM
Subjective Dataa
Subjective Data
Date of Service:
Date of Service: June 30, 2023
Chief Complaint: [employer] Dealer Follow Up and Pulmonary Follow Up
Subjective:
Pt seen this AM. Had 2 episodes last night and one episode this AM and required epi x2 this AM. Episode shows HR in 150s, tense upper extremities and SOB. On 3L/min NC with sats 96%. She feels as if she is slowly stabilizing but not back to
baseline yet. Currently denies chest pain, fevers or chills. She does endorse a headache.
Review of Systems
General: Other (Negative unless mentioned above)
Objective Data
Data Reviewed
Vital Signs / I&O / Oxygen:
Vital Signs
Temp Pulse Resp BP Pulse Ox
97.9 F 125 16 128/107 96
06/30/23 07:25 06/30/23 10:00 06/30/23 10:00 06/30/23 10:00 06/30/23 10:00
Intake and Output
06/29/23 06/30/23 07/01/23
06:59 06:59 06:59
Intake Total 3000 / 3065 2040 / 2105 1085 / 1085
Output Total 4500 / 4500 4050 / 4050
Balance -1500 / -1435 -2009 / 1085 / 1085
SaO2 96
Nasal Cannula flow liters per 3
minute
Physical Exam
General: Respiratory Distress (n), Comfortable and Other (No stridor)
HEENT: Normocephalic and Anicteric
Cardiovascular: S1-S2 and Peripheral Edema (Negative)
Respiratory: Wheeze (n), Crackles (n), Rhonchi (n), Non-Labored Respirations and Accessory Resp Muscle Use (n)
GI: Soft, Non Distended and Non Tender
Neurology: Awake, Alert and No Motor Deficits
Skin: Warm, Dry, Cyanosis (n), Jaundice (n) and Rash (n)
Labs/Micro/Reports
Lab Data
06/30/23 03:45
06/30/23 03:45
--- NOTE | 2023-06-30 08:47 | PTCARENOTE ---
report received, assessments per work list. monitor sinus tach, lungs clear with 3 liters nasal cannula. G/J tube in place. gtube clamped by patient prior to oral medications and breakfast. jtube patent for medications. abdomen soft with hyperactive
bowel sounds. purewick in place, voiding large amounts yellow urine. right triple lumen picc patent with good blood returns. benadryl infusion continues. patient denies pain or nausea. call sanchez in reach
--- NOTE | 2023-06-30 09:18 | W.PN.HOSP.TC ---
Today's Communication/Plan
-
see bold, daily epi requirements decreasing
Assessment / Plan
Assessment / Plan
32-year-old female past medical history of who presented with a mast cell flare.�Currently awaiting transfer to [facility] as per her shaker out Dr. Villanueva at [facility].
Gen: currently tremulous with NRB in place, appears chronically ill, cushingoid appearance.
CV: continues to remain tachy, reg rhythm, +S1/S2, no m/r/g.
Resp: CTAB anteriorly, no rales, wheezes, or rhonchi.
Abd: remains +BS, soft, NT, ND
Skin: No rashes.
Neuro: tremulous, non-focal
Mast Cell Activation Syndrome flare, with DOPA-Responsive Dystonia, Recurrent Anaphylaxis/Mast Cell Flare Episodes:
-cont maintenance medications including standing Ativan / Benadryl (pump), etc.
-cont Methylprednisolone 50mg IV Q12H, Benadryl infusion, PRN DuoNebs
-cont Gleevec
-cont carbidopa-levodopa for dystonia
-Patient continues to have multiple flares while hospitalized requiring multiple doses of epinephrine (2 doses of 0.3mg epi given in last 24 hours)
-Heme-onc and psych following
-on 06/23/23 pt was declined transfer to [facility] and [facility]
-Cromolyn Sodium to increased to 300mg QID. Will continue to increase as able and as pt is agreeable.
-GJ-tube replaced by IR on 06/24/23
-case discussed at length with Drs. Cagle and Lokesh on 06/26/23. Pt started compounded Ketotifen Fumarate 06/27/23.
-tryptase normal
-whole blood histamine level pending
-with Benadryl pump would avoid additional doses of Benadryl
-Case discussed with nursing on 06/29/23 and nursing reports that hypoxemia does not worsen when patient has her attacks. During current attack today pt without worsening hypoxemia as per nursing.
Other problems:
POTS disease: Continue propranolol
Chronic Nausea/Esophageal Dysmotility: Continue diet as tolerated. Continue G-tube to gravity for chronic nausea. Meds via J-tube. She is scheduled to have GJ tube exchange within a few days
Steroid-Induced DM2: cont Lantus/premeal Novology/SSI/accuchecks
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
h/o DVT/PE: cont Lovenox 1mg/kg SC Q12H
h/o Migraine headaches: Continue Nurtec
FULL/Lovenox
Case discussed with Dr. Michael.
Total critical care time spent = 31 min (management of mast cell activation flare with epi)
Anticipated Discharge: > 48 hours
Subjective/Interval History
-
Date of Service: June 30, 2023
Pt seen while having a mast cell activation episode. Unable to answer questions.
Objective Data
-
Labs:
Laboratory Results
06/30/23
03:45
WBC 12.4 H
Hgb 12.8
Hct 39.0
Plt Count 242 D
Sodium 135
Potassium 4.8
Chloride 102
Carbon Dioxide 29
BUN 14
Creatinine 0.4 L
Glucose 109 H
Calcium 9.3
Vital Signs:
Vital Signs
Temp Pulse Resp BP Pulse Ox
97.9 F 110 15 144/100 97
06/30/23 07:25 06/30/23 09:00 06/30/23 09:00 06/30/23 09:00 06/30/23 09:00
I&O
06/29/23 06/30/23 07/01/23
06:59 06:59 06:59
Intake Total 3000 / 3065 2040 / 2105 660 / 660
Output Total 4500 / 4500 4050 / 4050
Balance -1500 / -1435 -2009 / -1944 660 / 660
[2023-06-30] MEDS: NSS (PRESERVATIVE FREE) 1 ML IV ×3 (09:32→16:21)
[2023-06-30] MEDS: ADRENALIN 0.299999999999999989 MG IM ×3 (09:43→13:26)
[2023-06-30] MEDS: PEPCID 40 MG IV ×2 (09:51→21:03)
[2023-06-30] MEDS: NSS (PRESERVATIVE FREE) 16 ML IV ×2 (09:52→21:03)
[2023-06-30] MEDS: NON-FORMULARY ITEM 75 MG PO (10:00)
[2023-06-30] MEDS: NON-FORMULARY ITEM 180 MG PO (10:10)
[2023-06-30] MEDS: OSCAL 500 + D 500 MG PO ×2 (10:11→17:10)
[2023-06-30] MEDS: NON-FORMULARY ITEM 2 SPRAY NASAL (10:11)
[2023-06-30] MEDS: VITAMIN B1 100 MG TUBE (10:12)
[2023-06-30] MEDS: VITAMIN D3 (cholecalciferol) 50 MCG PO (10:12)
--- NOTE | 2023-06-30 10:29 | PTCARENOTE ---
patient with episode of mast sx, medications per MAR, neb given, required one dose epi, resolved. Hospitalist at bedside during episode
[2023-06-30] MEDS: LOVENOX 90 MG SC ×2 (10:53→21:00)
[2023-06-30] MEDS: NOVOLOG FLEXPEN-MODERATE RESISTANCE 5 UNITS SC (11:47)
[2023-06-30 11:51] LABS: Glucose - Point of Care 265 mg/dl (70-99)
--- NOTE | 2023-06-30 12:04 | PTCARENOTE ---
reassessed, medicated with prn medication per JUL, symptoms relieved. assisted with care. eating lunch, call sanchez in reach
--- NOTE | 2023-06-30 13:51 | CM ---
CM following re: discharge planning.
Discussed in Rounds, reviewed pt's chart. Per Rounds meeting, pt with Mast Cell Activation Syndrome flare, with DOPA-Responsive Dystonia, Recurrent Anaphylaxis/Mast Cell Flare Episodes, G/J tube in place, continue supportive care.
D/C plan: return back to [facility] when medically stable.
CM will follow with discharge plan updates as hospitalization progresses
[2023-06-30] MEDS: BENADRYL 250 MG IV (14:14)
[2023-06-30] MEDS: NON-FORMULARY ITEM 2 MG PO ×2 (14:17→21:01)
[2023-06-30] MEDS: SINEMET 25-100 2 TABLET TUBE ×2 (14:19→18:04)
[2023-06-30] MEDS: MYCELEX TROCHE 10 MG PO ×3 (15:25→20:59)
--- NOTE | 2023-06-30 15:35 | PTCARENOTE ---
patient with another episode post lunch. see prn medication administration. patient diaphoretic post event, assisted with care. step mother at bedside
--- NOTE | 2023-06-30 15:37 | CM ---
CM following re: discharge planning.
Discussed in Rounds, reviewed pt's chart. Per Rounds meeting, pt with Mast Cell Activation Syndrome flare, with DOPA-Responsive Dystonia, Recurrent Anaphylaxis/Mast Cell Flare Episodes, continue supportive care.
Psychiatry following
Pt lives with her mother and stepfather in a 2 story home with a makeshift ramp and 1st floor set up.
Patient has: hospital bed, rollator, raised toilet set, commode. standing form walker, 2 wheelchairs, IV poles, oxygen, nebulizer, CPAP, IV poles. Her custom WC does not fit anymore due to wt gain with medications.
Patient stated she has a script for a power WC.
D/C plan: return back home with mother and stepfather.
CM will follow with discharge plan updates as hospitalization progresses
[2023-06-30] MEDS: ZYRTEC 10 MG TUBE ×2 (17:10→21:03)
[2023-06-30] MEDS: NON-FORMULARY ITEM 20 MG PO (17:11)
[2023-06-30 17:12] LABS: Glucose - Point of Care 153 mg/dl (70-99)
[2023-06-30] MEDS: NOVOLOG FLEXPEN-MODERATE RESISTANCE 1 UNITS SC (17:58)
--- NOTE | 2023-06-30 18:21 | PTCARENOTE ---
patient with 3 episodes of mast, medications per jul. assisted out of bed to chair for dinner, back brace when oob. call sanchez within reach
--- NOTE | 2023-06-30 20:30 | PTCARENOTE ---
pt with mast cell symptoms soon after assist back to bed from chair, prn meds given, full assessment per work list documentation.
[2023-06-30] MEDS: NSS 1000 IV (20:36)
[2023-06-30] MEDS: FEOSOL 325 MG PO (20:58)
[2023-06-30 22:06] LABS: Glucose - Point of Care 243 mg/dl (70-99)
[2023-06-30] MEDS: DILAUDID 0.5 MG IV (23:46)
--- NOTE | 2023-06-30 23:50 | PTCARENOTE ---
pt with another mast cell episode, prn meds given, less severe/recovered quickly. no further changes in assessment.
[2023-07-01] VITALS (13 sets, daily range): BP systolic 125–165; BP diastolic 77–111; BMI 33.6
[2023-07-01 00:14] LABS: Histamine, Whole Blood <174 nmol/L (180-1800)
[2023-07-01] MEDS: ATIVAN 2 MG IV ×3 (06:12→14:17)
[2023-07-01] MEDS: BENADRYL 25 MG IV ×4 (06:12→20:40)
[2023-07-01] MEDS: DILAUDID 2 MG IV ×3 (06:13→15:40)
[2023-07-01] MEDS: SOLU-MEDROL PF 25 MG IV ×2 (06:24→17:41)
[2023-07-01] MEDS: VENTOLIN NEBULES 2.5 MG INH (06:27)
[2023-07-01] MEDS: ATIVAN 1 MG SL ×4 (06:38→23:04)
[2023-07-01] MEDS: SINEMET 25-100 1.5 TABLET TUBE ×2 (06:39→09:58)
[2023-07-01] MEDS: LIORESAL 10 MG PO ×3 (06:39→21:45)
[2023-07-01] MEDS: INDERAL 10 MG TUBE ×3 (06:39→21:44)
[2023-07-01] MEDS: TYLENOL 650 MG TUBE ×4 (06:39→23:04)
[2023-07-01] MEDS: SUBUTEX 2 MG SL ×4 (06:43→23:04)
[2023-07-01 07:04] LABS: Hemoglobin 12.2 g/dL (12.0-16.0); Mean Corpuscular Hgb 34.4 pg (27.0-31.0); Mean Corpuscular Volume 104.2 fL (81.0-99.0); Mean Platelet Volume 9.5 fL (7.4-10.4); Platelet Count 224 10^3/uL (130-400); Red Blood Cell Count 3.55 10^6/uL (4.20-5.40); Red Cell Dist. Width 14.9 % (11.5-14.5); White Blood Cell Count 13.5 10^3/uL (4.8-10.8)
[2023-07-01 07:16] LABS: Blood Urea Nitrogen 13 mg/dl (7-17); Calcium 9.1 mg/dl (8.4-10.2); Carbon Dioxide 29 mmol/L (22-30); Chloride 97 mmol/L (98-107); Estimated Creatinine Clearance > 125 ml/min; Glucose 157 mg/dl (70-99); Potassium 4.8 mmol/L (3.5-5.1); Sodium 135 mmol/L (135-145); eGFR > 60.00
[2023-07-01 07:49] LABS: Glucose - Point of Care 128 mg/dl (70-99)
[2023-07-01] MEDS: BENADRYL 250 MG IV (08:14)
[2023-07-01] MEDS: VITAMIN C 1250 MG PO (08:16)
[2023-07-01] MEDS: LIDOCAINE 4% PATCH 1 PATCH TOPICAL (08:17)
[2023-07-01] MEDS: MYCELEX TROCHE 10 MG PO ×5 (08:17→21:45)
[2023-07-01] MEDS: MYLICON 80 MG PO (08:17)
[2023-07-01] MEDS: MIRALAX TUBE (08:17)
[2023-07-01] MEDS: NON-FORMULARY ITEM 20 MG PO ×2 (08:18→17:40)
[2023-07-01] MEDS: NON-FORMULARY ITEM 80 MG PO (08:20)
[2023-07-01] MEDS: ZADITOR 1 DROP OPHTH ×3 (08:20→21:46)
[2023-07-01] MEDS: HYDREA 500 MG PO ×2 (08:22→19:54)
[2023-07-01] MEDS: NON-FORMULARY ITEM 2 MG PO ×2 (08:30→19:57)
[2023-07-01] MEDS: LANTUS 0.220000000000000001 UNITS SC (08:32)
[2023-07-01] MEDS: NOVOLOG FLEXPEN-MODERATE RESISTANCE SC ×2 (08:38→17:38)
[2023-07-01] MEDS: GASTROCROM 300 MG TUBE ×4 (08:46→21:54)
[2023-07-01] MEDS: NOVOLOG FLEXPEN 9 UNITS SC ×3 (08:48→17:38)
--- NOTE | 2023-07-01 09:40 | W.PN.INTV ---
Addendum entered and electronically signed by José Antonio Michael MD 07/01/23 22:26:
Correction to critical care statement: No critical care time was performed today.
Original Note:
Today's Communication / Plan
Recommendations
Decrease steroids as tolerated
Tryptase and histamine levels noted
Encouraged decreased opiates, benzodiazepine use
Increase mast cell stabilizers as needed
On 06/30, I discussed retirement IV access prior to discharge - patient interested in obtaining Rose as she has fears that her PICC will fail as it has been in place for >10-11 months now and she has a Hx of peripheral venous stenosis - considering
she still has a PICC line that is functional, we will likely forgo this and plan for discharge within the next 1-2 days
Assessment
-
32-year-old unfortunate morbidly obese female with multiple medical problems including mast cell activation syndrome, POTS, dopa sensitive dystonia as well as a history of DVT and pulmonary embolism, steroid-induced osteoporosis with multiple
compression fractures and chronic pain syndrome presented with mast cell activation/anaphylaxis requiring epinephrine, steroids, and intravenous Benadryl necessitating intensive care unit monitoring-medical data analyst consulted for anaphylaxis/mast cell
activation syndrome/critical care management 06/23/2023.
Assessment
Mast cell activation syndrome with flare-unclear how diagnosis was made-followed by Dr. Villanueva
Recurrent suspicion by clinicians that majority of these flares are not real-psychiatry believes patient 'believes she has real events'-difficult situation as treatment may be worse than the disease-osteoporosis, etc.
Mild leukocytosis
Anemia
Hyperglycemia
Conditions present prior to admission:
Mast cell activation syndrome[place].
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
POTS.
Dopa sensitive dystonia.
DVT/PE.
Steroid-induced diabetes.
Steroid-induced osteoporosis.
Multiple compression fractures.
Chronic pain syndrome.
GERD.
Migraine headaches.
Obstructive sleep apnea on AutoPap-last seen by Dr. Cagle 03/2021-now followed by Dr. Law-[facility]
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
Restless leg syndrome.
Insomnia.
Asthma.
Vocal cord dysfunction.
Anxiety.
Neurocardiogenic syncope.
Hlrcej-Ybvtiv-tkvdbjvwualxx type.
Chronic vertigo.
Raynaud's.
IBS.
Gastroparesis.
Covid 12/2021
Plan
Given the negative histamine levels and normal tryptase levels, this is likely a factitious disorder.
I willl stop the prn epinephrine
We should wean her down on her dilaudid as well, although this will take more time, however her risk of withdrawal is low given she is on Subutex which is a long-acting partial agonist
Risk management consult placed by nursing care
Continue supplemental oxygen as needed
Aspiration precautions
Incentive spirometry
Nebulizers as needed-currently not bronchospastic-has history of asthma-currently stable
Apparently has a history of vocal cord dysfunction-appears to be stable at this moment
AutoPap therapy at nighttime with oxygen-patient brought own machine
Per Dr. Concepcion:
Mast cell flare treatment ongoing-initial plan was to transfer to [facility] as her tamale machine feeder Dr. Villanueva is at [facility]-was declined-of note Dr. Cagle reviewed the case with [facility] pulmonary/medical data analyst on 06/23/2023 and they would not
accept patient as stated they would not have anything to offer-minimal hematology and allergy consultation available and recommended checking with [facility]
Hematology correspondence reviewed-Dr. Blank reviewed the case with Dr. Villanueva-patient has been banned from admissions to [facility], [facility] also refuses admissions stating they would not be able to do anything else
for her, case was also discussed with Dr. Coe and the internal medicine hospitalist at [facility] and they also declined transfer. She also left message with [facility] group who specializes in mast cell disorders-Dr. Geovani Bernstein to discuss the patient.
Dr. Cagle reviewed the case with Dr. Campa and Dr. Rich extensively on 06/26/2023-consider genetic testing for hereditary forms if not previously done, titrate cromolyn sodium and possibly try other mast cell stabilizers-critical care pharmacy also
involved as may need compounding to make oral medication-Dr. Cagle willing to write prescription which would be taken to [facility] for compounding-completed and medication initiated 06/27/2023.
Cromolyn sodium was going to be titrated up to 1000 mg 4 times daily-the issue with this is that the patient says that she has a difficult time obtaining this and if we increase her dose while hospitalized she will likely unable to be able to obtain
the same dosage as an outpatient. Continue 300 mg QID
Compounding [facility] pharmacy of Ketotifen 2 mg twice daily initiated as a mast cell stabilizer as well on 06/27/2023-told patient this could be a 'game changer' to control her disease and wean her off steroids
Checked tryptase levels which were normal:
Tryptase level 11/06/2020-less than 2
Tryptase level 06/26/2023-1.4 and within normal limits-should be elevated with true flare
Random histamine level 06/26/2023-WNL
Consider genetic testing if not previously done for hereditary forms
Benadryl intravenously-continues as well as boluses as needed
Ativan continues as needed
Methylprednisolone-decreased to 25 mg IV every 12 hours on 06/29/2023
DuoNebs as needed
Continue with Gleevec per hematology
Hydrea-to be increased to 500 mg twice daily
Allergy/immunology consultation recommended
Dr. Cagle had long discussion with patient attempting to set up 'goals'-told patient care team attempting to get to the 'root of the problem' which is mast cell stabilization-with the sincere hopes of increasing cromolyn sodium and initiating
Ketotifen-subsequently she will not need epinephrine, opiates, benzodiazepines, Benadryl, and steroids-encouraged decrease use of opiates and benzodiazepines, will reduce steroids, and hopefully Benadryl will be decreased as well
Note: Percutaneous G/J-tube replaced 06/25/2023
Continue carbidopa/levodopa for her dystonia
Analgesia including Dilaudid per primary team-monitor for oversedation
Per Dr Concepcion - Psychiatric evaluation performed 06/25/2023-patient reports seeing mental health professionals multiple times in the past and is currently on 2 separate Zoom therapies weekly-reviewed correspondence and personally spoke to psychiatry
on 06/27/2023
DVT prophylaxis-on Lovenox therapeutic dose
Nutrition
Early mobilization/physical therapy consult as well as Occupational Therapy consult
Outpatient pulmonary/sleep disorders vduaxt-[id number]-OwDr. Law
Ultimately, pt got defensive and angry/upset today when it was brought up that her histamine levels and tryptase levels have been WNL, indicating that she is not in fact having a MCAS flare and there is no evidence of anaphylaxis. She tried
arguing that she is atypical, but it is explained that there is no such thing in this case. She has large psychiatric component to her symptoms, and I believe that is really what is going on here. We will continue to wean her medications back to
what she takes at home with plans to discharge over next 24-48 hrs.
Critical care statement: A total of 39 minutes of critical care time was provided for this patient today. This includes management of unstable vital signs, evaluation of the patient at bedside, reviewing the patient's pertinent medical records
including radiographs, management of anaphylaxis, epinephrine, Benadryl drip, microbiology, laboratory evaluations, and discussion with primary team, consultants, pharmacy, nutrition, physical therapy, case management, charge nurse, critical care
nursing, and respiratory therapy.
Diagnostic data:
Chest x-ray 01/16/2021-NAD
Chest x-ray 02/16/2023-lungs clear
Chest x-ray 06/20/2023-lungs clear, right PICC line in place
CXR 06-24-2023: No active cardiopulmonary disease; the tip of the new right-sided PICC line extends to the cavoatrial junction
[id number]-[id number]-3/19/2019-МАРИЯ-6, desaturation fidencio 91%, AutoPap
[facility] 03/18/2019--2/5 SOREM
Subjective Dataa
Subjective Data
Date of Service:
Date of Service: July 01, 2023
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
Subjective:
Seen this AM. No acute overnight events reported. Histamine level returned and is negative.
Review of Systems
General: Other (Negative unless mentioned above)
Objective Data
Data Reviewed
Vital Signs / I&O / Oxygen:
Vital Signs
Temp Pulse Resp BP Pulse Ox
97.8 F 101 15 125/77 97
07/01/23 08:16 07/01/23 08:00 07/01/23 08:00 07/01/23 08:00 07/01/23 08:00
Intake and Output
06/30/23 07/01/23 07/02/23
06:59 06:59 06:59
Intake Total 2039 / 2104 3225 / 3290
Output Total 4050 / 4050 4450 / 4450
Balance -2009 / -1945 -1225 / -1160
SaO2 97
Nasal Cannula flow liters per 3
minute
Physical Exam
General: Respiratory Distress (n) and Comfortable
HEENT: Normocephalic, Anicteric and Other (No stridor appreciated upon auscultation of trachea)
Cardiovascular: S1-S2 and Peripheral Edema (Negative)
Respiratory: Wheeze (n), Crackles (n), Rhonchi (n), Non-Labored Respirations and Accessory Resp Muscle Use (n)
GI: Soft, Non Distended and Non Tender
Neurology: Awake, Alert and No Motor Deficits
Skin: Warm, Dry, Cyanosis (n), Jaundice (n) and Rash (n)
Labs/Micro/Reports
Lab Data
07/01/23 06:24
07/01/23 06:24
[2023-07-01] MEDS: NON-FORMULARY ITEM 2 SPRAY NASAL (09:52)
[2023-07-01] MEDS: NON-FORMULARY ITEM 180 MG PO ×2 (09:53→14:09)
[2023-07-01] MEDS: LOVENOX 90 MG SC ×2 (09:54→21:44)
[2023-07-01] MEDS: NSS (PRESERVATIVE FREE) 16 ML IV ×2 (09:54→21:43)
[2023-07-01] MEDS: OSCAL 500 + D 500 MG PO ×2 (09:57→17:39)
[2023-07-01] MEDS: VITAMIN B1 100 MG TUBE (09:58)
[2023-07-01] MEDS: PEPCID 40 MG IV ×2 (09:58→21:43)
[2023-07-01] MEDS: VITAMIN D3 (cholecalciferol) 50 MCG PO (10:00)
--- NOTE | 2023-07-01 11:00 | PTCARENOTE ---
Patient turned and repositioned. complained of Mast cell syndrome, began having rhythmic jerking, stated she needed medication. specifically asked for ativan, dilaudid and benedryl. Was able to speak in full sentences. HR went up to 120s but
pulse ox remained at 97% on 3L. medicated for mast cell syndrome prn meds. will follow up with physician.
--- NOTE | 2023-07-01 11:29 | W.PN.HOSP.TC ---
Addendum entered and electronically signed by Dwight Kirk MD 07/01/23 17:19:
Patient seen and examined
Discussed with resident.
Discussed with veneer drier feeder
Discussed with palliative care who follows patient as outpatient.
Discussed with nursing.
Exam with stable vital signs other than intermittent sinus tachycardia.
No stridor, clear lungs
Mast cell activation syndrome.
Currently controlled clinically and chemically (normal tryptase and histamine levels
Continue complex approach including cromolyn, IV Benadryl, IV corticosteroids, compounded ketotifen.
Dystonia.
Observed today when patient complained of another episode of dystonia.
Remains hemodynamically stable with stable oxygenation
During the above patient was able to speak full sentences having meaningful conversation, having purposeful movements appear eating with both upper extremities with multiple objects.
Continue carbidopa levodopa.
Wean off IV lorazepam with continuation of preadmission sublingual lorazepam dose..
Chronic pain.
No evidence for distress.
Her preadmission pain regimen was discussed with primary palliative care Dr. Swartz.
Patient was recently weaned off fentanyl patch.
Currently given overall improvement, plan is to wean off of IV hydromorphone transition to oral hydromorphone dose in addition to buprenorphine.
Original Note:
Today's Communication/Plan
-
- Continue ketotifen, cromolyn, methylprednisolone 50mg IV Q12H, diphenhydramine infusion, ipratropium bromide/albuterol PRN.
- Continue imatinib and hydroxyurea.
- Continue carbidopa-levodopa.
- Reduce utilization of epinephrine and additional diphenhydramine.
- Minimize benzodiazepines and opiates as tolerated.
- Early mobilization/physical therapy/occupational therapy.
- Medical records requested from the diagnosing physician Dr. MONTRELL Villanueva.
- Allergy/immunology input appreciated.
Assessment / Plan
Assessment / Plan
Assessment:
Mary Ontiveros, 32 year-old female, with medical history of mast cell activation syndrome, postural orthostatic tachycardia syndrome, dystonia, steroid-induced diabetes mellitus, steroid-induced osteoporosis, multiple compression fractures, bedbound,
chronic pain syndrome, GERD, migraines, history of DVT and PE presented to the emergency on 06-20-23 with a mast cell degranulation flare-up. She was diagnosed with mast cell activation syndrome in 2019, and has required numerous hospital and ICU
admissions since then. She usually experiences dystonic reaction and anaphylaxis during her flare-ups.
She follows Dr. MONTRELL Villanueva, heme/onc, at [facility] where she is banned from hospitalizations pertaining to her mast cell disorder complications. She has a protocol in place that Dr. Villanueva came up with: to go to the emergency if she
has anaphylaxis 3+ times requiring EpiPen injections in 1 day. She had to use an EpiPen 4x on the day she came to the emergency for the present admission. She has tried and failed several modalities. Currently managed with diphenhydramine drip,
cromolyn sodium, imatinib, hydroxyurea, methylprednisolone, lorazepam, baclofen, carbidopa/levodopa, cetirizine and fexofenadine. 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
biopsy.
Serum tryptase and whole blood histamine levels have been within normal limits/lower than normal levels. There are recurrent concerns about her symptoms not being entirely somatic, and questions if her 'flare-ups' are actual mast cell degranulation
flare-ups and not something else. We do not have access to her original diagnostic lab results; will request records. Would probably benefit from a more extensive genetic work-up, if she has not had that already.
Dr. Cagle had long discussion with patient attempting to set up 'goals'-told patient care team attempting to get to the 'root of the problem' which is mast cell stabilization-with the sincere hopes of increasing cromolyn sodium and initiating
Ketotifen-subsequently she will not need epinephrine, opiates, benzodiazepines, Benadryl, and steroids-encouraged decrease use of opiates and benzodiazepines, will reduce steroids, and hopefully Benadryl will be decreased as well.
Impressions:
* Mast cell activation syndrome, with DOPA-responsive dystonia and recurrent flare-ups/anaphylaxis
Conditions prior to admission:
* POTS.
* History of DVT/PE.
* Steroid-induced diabetes.
* Steroid-induced osteoporosis.
* Multiple compression fractures.
* Chronic pain syndrome.
* GERD.
* Migraine headaches.
* Obstructive sleep apnea on AutoPap-last seen by Dr. Cagle 03/2021-[place]
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
* Restless leg syndrome.
* Insomnia.
* Asthma.
* Vocal cord dysfunction.
* Anxiety.
* Neurocardiogenic syncope.
* Fbqgtw-Buewzh-sfvtxmvgnysft type.
* Chronic vertigo.
* Raynaud's.
* IBS.
* Gastroparesis.
Plan:
Mast cell activation syndrome, with DOPA-responsive dystonia and recurrent flare-ups/anaphylaxis
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
- Follows Dr. MONTRELL Villanueva, heme/onc, at [facility].
- She was diagnosed in 2019, and has been difficult to manage.
- She came to the emergency on 06-20-23, after she used 4 epinephrine injections for presumed anaphylaxis in 1 day.
- Considering her unusual presentation of an already rare condition, tried contacting [facility] and [facility] for transfers.
- Case was discussed with Dr. Villanueva on 06-23-23; he recommended increasing hydroxyurea to 500 mg twice a day from 500 mg once a day - done.
- Patient has been banned from admission to [facility] for her usual presentations, and she was declined transfer to [facility] and [facility].
- GJ-tube replaced by IR on 06-24-23.
- Started ketotifen fumarate (compounded) on 06-27-23.
- She was on 200 mg QID dosing of cromolyn sodium on admission; increased that to 300mg QID.
- Cromolyn sodium can have a maximum daily dose of 40 mg/kg/day; she has a ceiling of 4000 mg/day or 1000 mg QID; plenty of room to go up; up-titrate as tolerated.
- Continue methylprednisolone 50mg IV Q12H, diphenhydramine infusion, ipratropium bromide/albuterol PRN.
- Continue carbidopa-levodopa.
- Reduce utilization of epinephrine and additional diphenhydramine.
- Minimize benzodiazepines and opiates as tolerated.
- Case discussed with nursing, who report that the patient does not experience hypoxemia or hypotension during her attacks.
- Early mobilization/physical therapy consult as well as occupational therapy consult.
- Heme/onc and psych following.
- Serum tryptase and whole blood histamine levels have been within normal limits/lower than normal levels.
- There are recurrent concerns about her symptoms not being entirely somatic.
- Allergy/immunology input appreciated.
Other conditions:
- POTS disease: Continue propranolol
- Chronic Nausea/Esophageal Dysmotility: Continue diet as tolerated. Continue G-tube to gravity for chronic nausea. Meds via J-tube. She is scheduled to have GJ tube exchange within a few days
- Steroid-Induced DM2: cont Lantus/premeal Novology/SSI/accuchecks
- Steroid-Induced Osteoporosis with resulting Chronic Pain Syndrome: IV Dilaudid PRN, post-d/c f/u with pain management
- h/o DVT/PE: cont Lovenox 1mg/kg SC Q12H
- h/o Migraine headaches: Continue Nurtec
Code status
- DNR
Anticipated Discharge: > 48 hours
Subjective/Interval History
-
Date of Service: July 01, 2023
Objective Data
-
Labs:
Laboratory Results
07/01/23
06:24
WBC 13.5 H
Hgb 12.2
Hct 37.0
Plt Count 224
Sodium 135
Potassium 4.8
Chloride 97 L
Carbon Dioxide 29
BUN 13
Creatinine 0.4 L
Glucose 157 H
Calcium 9.1
Vital Signs:
Vital Signs
Temp Pulse Resp BP Pulse Ox
97.8 F 106 16 133/86 96
07/01/23 08:16 07/01/23 10:00 07/01/23 10:00 07/01/23 10:00 07/01/23 10:00
I&O
06/30/23 07/01/23 07/02/23
06:59 06:59 06:59
Intake Total 0 / 5 3225 / 3290 325 / 325
Output Total 4050 / 4050 4450 / 4450
Balance -2009 / 1945 -1225 / -1160 325 / 325
[2023-07-01 12:25] LABS: Glucose - Point of Care 226 mg/dl (70-99)
[2023-07-01] MEDS: NOVOLOG FLEXPEN-MODERATE RESISTANCE 3 UNITS SC (12:43)
--- NOTE | 2023-07-01 14:00 | PTCARENOTE ---
Assessed patient, patient 94% on room air, when asked if patient was on oxygen at home, patient replied yes and then immediately placed nasal cannula on. Had been off oxygen for about 10 min.
[2023-07-01] MEDS: SINEMET 25-100 2 TABLET TUBE ×2 (14:07→17:39)
[2023-07-01] MEDS: NON-FORMULARY ITEM 200 MG PO (14:08)
--- NOTE | 2023-07-01 16:00 | PTCARENOTE ---
No change in patient's assessment. Patient has been upset and crying states that she has chronic pain/anaphylaxis and dystonia and that she has been through years of trauma. Explained to patient that the hospital is not the place to 'tweak her
medications (as stated by patient)'. Patient has asked for pain medication, but then states that is is for Mast cell syndrome. Explained to patient that physician has placed patient back on home medications and are working on weaning down
medications as to move towards discharged. She has been able to talk in full sentences through these episodes, has never dropped oxygen saturation and was also found to be 94% on room air this afternoon. attempt to provide support as patient is
in emotional distress.
[2023-07-01 17:19] LABS: Glucose - Point of Care 100 mg/dl (70-99)
[2023-07-01] MEDS: ZYRTEC 10 MG TUBE ×2 (17:39→21:45)
[2023-07-01] MEDS: NSS 1000 IV (18:00)
[2023-07-01] MEDS: DILAUDID 8 MG PO (19:55)
[2023-07-01] MEDS: BENADRYL IV (20:02)
--- NOTE | 2023-07-01 20:15 | PTCARENOTE ---
Received patient in bed, AAOx3, following commands, HICKEY, complaining of 9/10 middle and lower back pain, prn dilaudid given. Sinus tach, 110s. BP 160s/90s. Palpable radial and pedal pulses bilaterally, +2 generalized anasarca. 96% on 3 liters, lung
sounds diminished. Abdomen soft, round, GJ tube intact. Purewick in place, draining clear yellow urine. Skin bruised throughout. Right DL PICC WNL, hourly rounding and patient safety checks ongoing.
--- NOTE | 2023-07-01 21:15 | PTCARENOTE ---
Patient used call sanchez, having a dystonia attack at 2039. PRN benadryl given. At 2099, patient used call sanchez to request more benadryl to 'get ready for bed,' informed patient she already received PRN benadryl and is not due for anymore at this
time.
[2023-07-01] MEDS: FEOSOL 325 MG PO (21:45)
[2023-07-01 23:29] LABS: Glucose - Point of Care 214 mg/dl (70-99)
[2023-07-02] VITALS (17 sets, daily range): BP systolic 130–153; BP diastolic 82–134; PULSE 116–123; O2SAT 98–99; BMI 33.0
--- NOTE | 2023-07-02 00:27 | PTCARENOTE ---
Patient assessment unchanged from previous, hourly rounding and patient safety checks ongoing.
[2023-07-02] MEDS: NOVOLOG FLEXPEN 3 UNITS SC (01:22)
[2023-07-02] MEDS: MYLICON 80 MG PO ×2 (01:29→07:50)
[2023-07-02] MEDS: BENADRYL 25 MG IV ×6 (01:29→21:31)
[2023-07-02] MEDS: ZOFRAN 4 MG IV ×2 (01:29→13:01)
--- NOTE | 2023-07-02 01:33 | PTCARENOTE ---
Patient requested simethicone for gas pain and zofran for nausea. Began having a dystonia attack 2 minutes later, prn benadryl given.
[2023-07-02] MEDS: DILAUDID 8 MG PO ×4 (04:37→21:31)
--- NOTE | 2023-07-02 04:45 | PTCARENOTE ---
Patient used call sanchez, requested dilaudid and benadryl prn, patient reports 'i feel another attack coming on'. Put patient on bedpan, became teary eyed and saying she feels 'embarrassed'. Emotional support provided, hourly rounding and safety
checks ongoing.
[2023-07-02] MEDS: INDERAL 10 MG TUBE ×3 (05:06→21:27)
[2023-07-02] MEDS: TYLENOL 650 MG TUBE ×4 (05:06→23:53)
[2023-07-02] MEDS: SUBUTEX 2 MG SL ×4 (05:06→23:55)
[2023-07-02] MEDS: SINEMET 25-100 1.5 TABLET TUBE ×2 (05:06→10:24)
[2023-07-02] MEDS: ATIVAN 1 MG SL ×4 (05:06→23:53)
[2023-07-02] MEDS: LIORESAL 10 MG PO ×3 (05:06→21:27)
[2023-07-02] MEDS: SOLU-MEDROL PF 25 MG IV ×2 (05:07→17:13)
[2023-07-02] MEDS: HYDREA 500 MG PO ×2 (07:49→20:08)
[2023-07-02] MEDS: NON-FORMULARY ITEM 80 MG PO (07:49)
[2023-07-02] MEDS: MYCELEX TROCHE 10 MG PO ×5 (07:50→21:28)
[2023-07-02] MEDS: MIRALAX TUBE (07:50)
[2023-07-02] MEDS: LIDOCAINE 4% PATCH 1 PATCH TOPICAL (07:50)
[2023-07-02] MEDS: NON-FORMULARY ITEM 2 MG PO ×2 (07:51→20:09)
[2023-07-02] MEDS: GASTROCROM 300 MG TUBE ×4 (07:52→21:24)
[2023-07-02] MEDS: ZADITOR 1 DROP OPHTH ×3 (07:52→21:30)
[2023-07-02] MEDS: NON-FORMULARY ITEM 20 MG PO ×2 (07:52→17:27)
[2023-07-02] MEDS: VITAMIN C 1250 MG PO (07:53)
[2023-07-02] MEDS: NOVOLOG FLEXPEN-MODERATE RESISTANCE 1 UNITS SC ×3 (07:56→18:18)
[2023-07-02] MEDS: NOVOLOG FLEXPEN 9 UNITS SC ×3 (07:56→18:17)
--- NOTE | 2023-07-02 08:00 | PTCARENOTE ---
Received patient from night supervisor. Assessment as charted in worklist. Patient is AAOx3, patient is anxious, tearful, cooperative. Able to move all extremities, despite having some weakness. Patient is on 3L nasal cannula, saturation 98 %. Sinus
rhythm/sinus tach on monitor. generalized anasarca. Purewick for urination, GJ tube for administration of some medications. Patient had two 'dystonic attacks' overnight, did not require PRN ativan or dilaudid. Working with multidisciplinary team
to facilitate discharge.
[2023-07-02 08:01] LABS: Glucose - Point of Care 157 mg/dl (70-99)
[2023-07-02] MEDS: LANTUS 0.220000000000000001 UNITS SC (08:06)
--- NOTE | 2023-07-02 08:47 | W.PN.INTV ---
Today's Communication / Plan
Recommendations
Decrease steroids as tolerated --> although we are giving solumerol 25mg IV BID, we will DC home on 40mg IV BID and with slow taper
Tryptase and histamine levels noted
Encouraged decreased opiates, benzodiazepine use
Increase mast cell stabilizers as needed
On 06/30, I discussed chcf IV access prior to discharge - patient interested in obtaining Rose as she has fears that her PICC will fail as it has been in place for >10-11 months now and she has a Hx of peripheral venous stenosis - I will
consult IR for their opinion on the matter.
Assessment
-
32-year-old unfortunate morbidly obese female with multiple medical problems including mast cell activation syndrome, POTS, dopa sensitive dystonia as well as a history of DVT and pulmonary embolism, steroid-induced osteoporosis with multiple
compression fractures and chronic pain syndrome presented with mast cell activation/anaphylaxis requiring epinephrine, steroids, and intravenous Benadryl necessitating intensive care unit monitoring-manager of training and development consulted for anaphylaxis/mast cell
activation syndrome/critical care management 06/23/2023.
Assessment
Mast cell activation syndrome with flare-diagnosed via elevated urinary N-methylhistamine levels by Dr. Villanueva
Recurrent suspicion by clinicians that majority of these flares are not real-psychiatry believes patient 'believes she has real events'-difficult situation as treatment may be worse than the disease-osteoporosis, etc.
Mild leukocytosis
Anemia
Hyperglycemia
Conditions present prior to admission:
Mast [facility] activation [facility].
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
POTS.
Dopa sensitive dystonia.
DVT/PE.
Steroid-induced diabetes.
Steroid-induced osteoporosis.
Multiple compression fractures.
Chronic pain syndrome.
GERD.
Migraine headaches.
Obstructive sleep apnea on AutoPap-last seen by Dr. Cagle 03/2021-now followed by Dr. Law-[facility]
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
Restless leg syndrome.
Insomnia.
Asthma.
Vocal cord dysfunction.
Anxiety.
Neurocardiogenic syncope.
Jyacug-Pbhtxs-mmypqjbnmxteb type.
Chronic vertigo.
Raynaud's.
IBS.
Gastroparesis.
Covid 12/2021
Plan
I spoke with Dr. Villanueva today --> pt does carry a formal diagnosis of mast celll activation syndrome, which can have normal rtyptase and histamine levels in atypical cases
Given that the pt is close to her baseline medication use at home, we will plan for discharge
Case management will assist us in making sure that the pt has home nursing and all her medications available for her so that they are ready when she gets home
prn epi stopped on 07/01
Continue subutex; prn IV dilaudid also stopped
Risk management consult placed by nursing care on 07/01
Continue supplemental oxygen as needed
Aspiration precautions
Incentive spirometry
Nebulizers as needed-currently not bronchospastic-has history of asthma-currently stable
Apparently has a history of vocal cord dysfunction-appears to be stable at this moment
AutoPap therapy at nighttime with oxygen-patient brought own machine
Per Dr. Concepcion:
Mast cell flare treatment ongoing-initial plan was to transfer to [place] as her loss prevention detective Dr. Villanueva is at [facility]-was declined-of note Dr. Cagle reviewed the case with [facility] pulmonary/manager of training and development on 06/23/2023 and they would not
accept patient as stated they would not have anything to offer-minimal hematology and allergy consultation available and recommended checking with [facility]
Hematology correspondence reviewed-Dr. Blank reviewed the case with Dr. Villanueva-patient has been banned from admissions to [facility], [facility] also refuses admissions stating they would not be able to do anything else
for her, case was also discussed with Dr. Coe and the internal medicine hospitalist at [facility] and they also declined transfer. She also left message with [facility] who specializes in mast cell disorders-Dr. Geovani Bernstein to discuss the patient.
Dr. Cagle reviewed the case with Dr. Campa and Dr. Rich extensively on 06/26/2023-consider genetic testing for hereditary forms if not previously done, titrate cromolyn sodium and possibly try other mast cell stabilizers-critical care pharmacy also
involved as may need compounding to make oral medication-Dr. Cagle willing to write prescription which would be taken to [facility] for compounding-completed and medication initiated 06/27/2023.
Cromolyn sodium was going to be titrated up to 1000 mg 4 times daily-the issue with this is that the patient says that she has a difficult time obtaining this and if we increase her dose while hospitalized she will likely unable to be able to obtain
the same dosage as an outpatient. Continue 300 mg QID
Compounding [facility] pharmacy of Ketotifen 2 mg twice daily initiated as a mast cell stabilizer as well on 06/27/2023-told patient this could be a 'game changer' to control her disease and wean her off steroids
Checked tryptase levels which were normal:
Tryptase level 11/06/2020-less than 2
Tryptase level 06/26/2023-1.4 and within normal limits-should be elevated with true flare, however as per Dr. Villanueva, these levels can be normal in some cases rj if the pt is taking systemic steroids
Random histamine level 06/26/2023-WNL
Consider genetic testing if not previously done for hereditary forms
Benadryl intravenously-continues as well as boluses as needed
Ativan continues as needed
Methylprednisolone-decreased to 25 mg IV every 12 hours on 06/29/2023
DuoNebs as needed
Continue with Gleevec per hematology
Hydrea-to be increased to 500 mg twice daily
Allergy/immunology consultation recommended
Dr. Cagle had long discussion with patient attempting to set up 'goals'-told patient care team attempting to get to the 'root of the problem' which is mast cell stabilization-with the sincere hopes of increasing cromolyn sodium and initiating
Ketotifen-subsequently she will not need epinephrine, opiates, benzodiazepines, Benadryl, and steroids-encouraged decrease use of opiates and benzodiazepines, will reduce steroids, and hopefully Benadryl will be decreased as well
Note: Percutaneous G/J-tube replaced 06/25/2023
Continue carbidopa/levodopa for her dystonia
Per Dr Concepcion - Psychiatric evaluation performed 06/25/2023-patient reports seeing mental health professionals multiple times in the past and is currently on 2 separate Zoom therapies weekly-reviewed correspondence and personally spoke to psychiatry
on 06/27/2023
DVT prophylaxis-on Lovenox therapeutic dose
Nutrition
Early mobilization/physical therapy consult as well as Occupational Therapy consult
Outpatient pulmonary/sleep disorders [facility]
Follow up with Dr. Villanueva
Diagnostic data:
Chest x-ray 01/16/2021-NAD
Chest x-ray 02/16/2023-lungs clear
Chest x-ray 06/20/2023-lungs clear, right PICC line in place
CXR 06-24-2023: No active cardiopulmonary disease; the tip of the new right-sided PICC line extends to the cavoatrial junction
HLQ-Teivax-7/19/2019-МАРИЯ-6, desaturation fidencio 91%, AutoPap
MSLT [place] 03/18/2019--2/5 SOREM
Subjective Dataa
Subjective Data
Date of Service:
Date of Service: July 02, 2023
Chief Complaint: Engine Repairer Service Follow Up and Pulmonary Follow Up
Subjective:
Pt seen this AM. No acute events reported from overnight. On 3L/min NC with sats in mid 90s.
Review of Systems
General: Other (12 point ROS performed and is negative unless mentioned above.)
Objective Data
Data Reviewed
Vital Signs / I&O / Oxygen:
Vital Signs
Temp Pulse Resp BP Pulse Ox
99 F 115 15 143/96 97
07/02/23 07:45 07/02/23 08:00 07/02/23 08:00 07/02/23 08:00 07/02/23 08:00
Intake and Output
07/01/23 07/02/23 07/03/23
06:59 06:59 06:59
Intake Total 3225 / 3290 1800 / 1865 195 / 195
Output Total 4450 / 4450 3100 / 3100 1100 / 1100
Balance -1225 / -1160 -1300 / -1235 -905 / -905
SaO2 97
Nasal Cannula flow liters per 3
minute
Physical Exam
General: Respiratory Distress (n) and Comfortable
HEENT: Normocephalic, Anicteric and Other (No stridor appreciated upon auscultation of trachea)
Cardiovascular: S1-S2 and Peripheral Edema (Negative)
Respiratory: Clear, Wheeze (n), Crackles (n), Rhonchi (n), Non-Labored Respirations and Accessory Resp Muscle Use (n)
GI: Soft, Non Distended and Non Tender
Neurology: Awake, Alert and No Motor Deficits
Skin: Warm, Dry, Cyanosis (n), Jaundice (n) and Rash (n)
Labs/Micro/Reports
Lab Data
07/01/23 06:24
07/01/23 06:24
--- NOTE | 2023-07-02 09:44 | W.PN.ONC2 ---
Today's Communication / Plan
-
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
This is leading to excessive medicine administration of narcotics and antihistamines.
Spoke with Dr. MONTRELL Villanueva - his outpatient physician who stated prior 24 urine testing was positive that confirmed the disease.
Current testing (spot histamine and tryptase during acute episode) is normal.
Patient needs to be discharged or transferred to tertiary care center with experience in this condition.
Discussed with attending Dr. Kirk. Will sign off.
Impression
Impression
* Mast cell activation syndrome, with recurrent anaphylaxis but normal tryptase and histamine levels
* Dystonia, DOPA-responsive
Plan
Plan
Mast cell activation syndrome, with recurrent anaphylaxis.
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
- Follows Dr. MONTRELL Villanueva, heme/onc, at [facility].
- She was diagnosed in 2019, and has been difficult to manage.
- She has tried and failed several modalities.
- Currently managed with diphenhydramine drip, cromolyn sodium, imatinib, hydroxyurea, methylprednisolone, lorazepam, cetirizine and fexofenadine.
- She has multiple triggers for mast cell degranulation flare-ups, and usually experiences dystonic reactions and anaphylaxis.
- She came to the emergency on 06-20-23, after she required 4 epinephrine IM injections for anaphylaxis in 1 day.
- More regularly, she requires 1-2 shots per day, and has a protocol of coming to the emergency on days she requires 3+ shots.
- Considering her unusual presentation of an already rare condition, tried contacting [place] and [facility] for transfers.
- Case was discussed with Dr. Villanueva on 06-23-23; patient has been banned from admission to [facility] for her usual presentations.
- [facility] also refused admission stating they would not be able to do anything else for her.
- Case was discussed with Dr. Saravanan Cervantes and the internal medicine hospitalist attending at [facility] on 06-23-23; they also declined transfer.
- Contacted the Mast Cell research group of Dr. Geovani Dixon at [facility], who could not offer medical advice.
- [facility] also cannot offer medical advice if she is not a patient there.
- Called [facility]'s NIAID, who asked to email details of her condition; they can review and get back to us.
- Dr. Villanueva recommended increasing hydroxyurea to 500 mg twice a day from 500 mg once a day - done.
- Cromolyn sodium can have a maximum daily dose of 40 mg/kg/day - Cauller is currently only at 8 mg/kg/day, which is the minimum dosing and probably subtherapeutic for her condition.
- She has a ceiling of 4000 mg/day or 1000 mg QID; plenty of room to go up; up-titrate as tolerated.
- Not sure if either or both methylprednisolone and diphenhydramine can be increased safely at this point.
- Allergy/immunology input appreciated.
Dystonia, DOPA-responsive
- Unclear if this is related to the mast cell activation syndrome.
- Mast cell flare-ups are often preceded by the onset of dystonic symptoms.
- On baclofen and carbidopa/levodopa, which have helped; continue.
Subjective/Objective
Chief Complaint
ACS Heme F/U
Subjective
Reviewed chart in detail and discussed with ICU nursing staff. Patient confronted that her levels suggest low likelihood of mast cell activation syndrome and she was confronted
Vital Signs:
Vital Signs
Temp Pulse Resp BP Pulse Ox
99 F 115 15 143/96 98
07/02/23 07:45 07/02/23 08:00 07/02/23 08:00 07/02/23 08:00 07/02/23 04:00
Lab Results:
Laboratory Data
WBC 13.5 10^3/uL (4.8-10.8) H 07/01/23 06:24
Hgb 12.2 g/dL (12.0-16.0) 07/01/23 06:24
Plt Count 224 10^3/uL (130-400) 07/01/23 06:24
PT 12.6 Sec (11.4-14.6) 06/27/23 03:30
INR 0.94 06/27/23 03:30
APTT 29.2 Sec (23.4-35.0) 06/27/23 03:30
eGFR > 60.00 07/01/23 06:24
Physical Exam
Exam deferred today
--- NOTE | 2023-07-02 09:56 | W.PN.UPDATE ---
Update Note
Progress Note Update
Spoke with Dr. Villanueva, Ms. Ontiveros's physical therapy technician at [facility] - pt does carry a formal Dx of MCAS, which can be seen without elevated levels of tryptase and histamine. The pt was Dx based on clinical presentation and elevated N-methylhistamine levels in
her urine. Pt also has psychiatric component which can make her presentation difficult to handle, and the pt easily mistrusts staff, rj when a provider questions her Dx. Usually the pt ends up going home once she has a manageable state where she
can handle/take care of herself at home. I will keep Dr. Villanueva's information on hand in case I need to speak with him again.
[2023-07-02] MEDS: NSS (PRESERVATIVE FREE) 16 ML IV ×2 (10:23→21:26)
[2023-07-02] MEDS: LOVENOX 90 MG SC ×2 (10:23→21:28)
[2023-07-02] MEDS: VITAMIN B1 100 MG TUBE (10:24)
[2023-07-02] MEDS: PEPCID 40 MG IV ×2 (10:24→21:26)
[2023-07-02] MEDS: VITAMIN D3 (cholecalciferol) 50 MCG PO (10:24)
[2023-07-02] MEDS: NON-FORMULARY ITEM 180 MG PO ×2 (10:25→14:06)
[2023-07-02] MEDS: OSCAL 500 + D 500 MG PO ×2 (10:25→17:12)
[2023-07-02] MEDS: NON-FORMULARY ITEM 2 SPRAY NASAL (10:26)
--- NOTE | 2023-07-02 11:15 | W.PN.HOSP.TC ---
Addendum entered and electronically signed by Dwight Kirk MD 07/02/23 16:51:
Patient seen and examined
Discussed with resident.
Discussed extensively with multiple services including patient primary retail sales manager oncologist Dr. Mora, manager agricultural including Dr. Michael and Dr. Concepcion, palliative care Dr. Swartz.
Impression/plan:
Muscle activation syndrome with recurrent anaphylaxis.
Spot levels of tryptase and histamine negative over this admission.
Dr. Mora confirmed diagnosis which likely idiopathic type of mast cell activation syndrome with elevated level of N-methylhistamine in the 24 hours urine.
I agree there is a presence of psychosomatic component of disease not limited to chronic opiate and benzodiazepine use.
Respiratory, hemodynamic, neurologic status has been stable for the last 48 to 72 hours.
Has been transitioned back to preadmission medication regimen including IV infusions
Weaned off IV opiates and benzodiazepines.
Complex discharge planing including home care and infusion company to be set up.
Original Note:
Today's Communication/Plan
-
* Medical records requested from the diagnosing physician Dr. MONTRELL Villanueva, who does confirm over the phone that she has been formally diagnosed with MCAS based on clinical presentation and elevated 24-hour n-methylhistamine levels in her urine. This
condition does not always lead to elevated levels of tryptase and histamine.
- Allergy/immunology input appreciated.
- Continue ketotifen, cromolyn, methylprednisolone 50mg IV Q12H, diphenhydramine infusion, ipratropium bromide/albuterol PRN.
- Continue imatinib and hydroxyurea.
- Continue carbidopa-levodopa.
- Reduce utilization of epinephrine and additional diphenhydramine.
- Minimize benzodiazepines and opiates as tolerated.
- Early mobilization/physical therapy/occupational therapy.
Assessment / Plan
Assessment / Plan
Assessment:
Mary Ontiveros, 32 year-old female, with medical history of mast cell activation syndrome, postural orthostatic tachycardia syndrome, dystonia, steroid-induced diabetes mellitus, steroid-induced osteoporosis, multiple compression fractures, bedbound,
chronic pain syndrome, GERD, migraines, history of DVT and PE presented to the emergency on 06-20-23 with a mast cell degranulation flare-up. She was diagnosed with mast cell activation syndrome in 2019, and has required numerous hospital and ICU
admissions since then. She usually experiences dystonic reaction and anaphylaxis during her flare-ups.
She follows Dr. MONTRELL Villanueva, heme/onc, at [facility] where she is banned from hospitalizations pertaining to her mast cell disorder complications. She has a protocol in place that Dr. Villanueva came up with: to go to the emergency if she
has anaphylaxis 3+ times requiring EpiPen injections in 1 day. She had to use an EpiPen 4x on the day she came to the emergency for the present admission. She has tried and failed several modalities. Currently managed with diphenhydramine drip,
cromolyn sodium, imatinib, hydroxyurea, methylprednisolone, lorazepam, baclofen, carbidopa/levodopa, cetirizine and fexofenadine. 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
biopsy.
Serum tryptase and whole blood histamine levels have been within normal limits/lower than normal levels, which is not unusual for mast cell activation syndrome. There are recurrent concerns about her symptoms not being entirely somatic, and more
likely than not she has a psychiatric component - this makes her presentation difficult to handle. She would probably benefit from a more extensive genetic work-up, if she has not had that already. Dr. MONTRELL Villanueva does confirm over the phone that she
has been formally diagnosed with MCAS based on clinical presentation and elevated 24-hour n-methylhistamine levels in her urine (without elevated levels of serum tryptase and histamine, which can metabolize rapidly).
Dr. Cagle had long discussion with patient attempting to set up 'goals'-told patient care team attempting to get to the 'root of the problem' which is mast cell stabilization-with the sincere hopes of increasing cromolyn sodium and initiating
Ketotifen-subsequently she will not need epinephrine, opiates, benzodiazepines, Benadryl, and steroids-encouraged decrease use of opiates and benzodiazepines, will reduce steroids, and hopefully Benadryl will be decreased as well.
Impressions:
* Mast cell activation syndrome, with DOPA-responsive dystonia and recurrent flare-ups/anaphylaxis
Conditions prior to admission:
* POTS.
* History of DVT/PE.
* Steroid-induced diabetes.
* Steroid-induced osteoporosis.
* Multiple compression fractures.
* Chronic pain syndrome.
* GERD.
* Migraine headaches.
* Obstructive sleep apnea on AutoPap-last seen by Dr. Cagle 03/2021-[facility]
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
* Restless leg syndrome.
* Insomnia.
* Asthma.
* Vocal cord dysfunction.
* Anxiety.
* Neurocardiogenic syncope.
* Fqazuf-Eusbwr-yobejbxsrxcwt type.
* Chronic vertigo.
* Raynaud's.
* IBS.
* Gastroparesis.
Plan:
Mast cell activation syndrome, with DOPA-responsive dystonia and recurrent flare-ups/anaphylaxis
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
- Follows Dr. MONTRELL Villanueva, heme/onc, at [facility].
- She has been formally diagnosed with MCAS based on clinical presentation and elevated 24-hour N-methylhistamine levels in her urine (without elevated levels of serum tryptase and histamine, which can metabolize rapidly).
- She came to the emergency on 06-20-23, after she used 4 epinephrine injections for presumed anaphylaxis in 1 day.
- Considering her unusual presentation of an already rare condition, tried contacting [facility] and [facility] for transfers.
- Case was discussed with Dr. Villanueva on 06-23-23; he recommended increasing hydroxyurea to 500 mg twice a day from 500 mg once a day - done.
- Patient has been banned from admission to [facility] for her usual presentations, and she was declined transfer to [facility] and [facility].
- GJ-tube replaced by IR on 06-24-23.
- Started ketotifen fumarate (compounded) on 06-27-23.
- She was on 200 mg QID dosing of cromolyn sodium on admission; increased that to 300mg QID.
- Cromolyn sodium can have a maximum daily dose of 40 mg/kg/day; she has a ceiling of 4000 mg/day or 1000 mg QID; plenty of room to go up; up-titrate as tolerated.
- Continue methylprednisolone 50mg IV Q12H, diphenhydramine infusion, ipratropium bromide/albuterol PRN.
- Continue carbidopa-levodopa.
- Reduce utilization of epinephrine and additional diphenhydramine.
- Minimize benzodiazepines and opiates as tolerated.
- Case discussed with nursing, who report that the patient does not experience hypoxemia or hypotension during her attacks.
- Early mobilization/physical therapy consult as well as occupational therapy consult.
- Heme/onc and psych following.
- Serum tryptase and whole blood histamine levels have been within normal limits/lower than normal levels, which is not uncommon for mast cell activation syndrome.
- Allergy/immunology input appreciated.
Other conditions:
- POTS disease: Continue propranolol
- Chronic Nausea/Esophageal Dysmotility: Continue diet as tolerated. Continue G-tube to gravity for chronic nausea. Meds via J-tube. She is scheduled to have GJ tube exchange within a few days
- Steroid-Induced DM2: cont Lantus/premeal Novology/SSI/accuchecks
- Steroid-Induced Osteoporosis with resulting Chronic Pain Syndrome: IV Dilaudid PRN, post-d/c f/u with pain management
- h/o DVT/PE: cont Lovenox 1mg/kg SC Q12H
- h/o Migraine headaches: Continue Nurtec
Code status
- DNR
Anticipated Discharge: 24 - 48 hours
Subjective/Interval History
-
Date of Service: July 02, 2023
Objective Data
-
Vital Signs:
Vital Signs
Temp Pulse Resp BP Pulse Ox
99 F 115 15 143/96 97
07/02/23 07:45 07/02/23 08:00 07/02/23 08:00 07/02/23 08:00 07/02/23 08:00
I&O
07/01/23 07/02/23 07/03/23
06:59 06:59 06:59
Intake Total 3225 / 3290 1800 / 1865 195 / 195
Output Total 4450 / 4450 3100 / 3100 1100 / 1100
Balance -1225 / -1160 -1300 / -1235 -905 / -905
Review of Systems
-
History Source: Patient
Constitutional: Reports Fatigue and Sleep Disturbance
EENT: Reports No Symptoms Reported
Respiratory: Reports No Symptoms
Cardiac: Reports No Symptoms
Abdomen/GI: Reports No Symptoms
Genitourinary: Reports No Symptoms
Musculoskeletal: Reports Muscle Pain
Skin: Reports No Symptoms
Neuro: Reports Headache
Endocrine: Reports No Symptoms
Hematologic / Lymphatic: Reports No Symptoms
Psych: Reports Sad and Anxious
Physical Exam
-
General: No Apparent Distress, Comfortable, Conversant and Morbidly Obese
HEENT: Normocephalic, Atraumatic, Moist Mucous Membranes, Anicteric, Neck Non Tender and Oxygen
Respiratory: Clear to Auscultation
Cardiac: Regular Rhythm and S1/S2
GI: Soft, Nontender, Normal Bowel Sounds and No Hepatosplenomegaly
Genito-urinary: No Costovertebral Tender
Musculoskeletal: No Clubbing, No Cyanosis and No Edema
Skin: IV Access / Catheter Site
Neuro: AO x 3 and No Motor Deficits
Hematologic / Lymphatic: No Lymphadenopathy
Psych: Calm
[2023-07-02] MEDS: NSS 1000 IV (11:19)
[2023-07-02 12:28] LABS: Glucose - Point of Care 198 mg/dl (70-99)
--- NOTE | 2023-07-02 13:14 | PTCARENOTE ---
Patient OOB to chair with PT OT. Did not require rescue meds. STates she feels unwell but no signs of anaphylaxis.
[2023-07-02] MEDS: SINEMET 25-100 2 TABLET TUBE ×2 (14:05→17:13)
[2023-07-02] MEDS: NON-FORMULARY ITEM 200 MG PO (14:07)
[2023-07-02] MEDS: BENADRYL 250 MG IV ×2 (14:23)
--- NOTE | 2023-07-02 16:02 | CM ---
CM following re: discharge planning.
Discussed in rounds, reviewed pt's chart, met with pt.
During Rounds meeting hospitalist, packing room worker, RN and SW met with pt and according to MD team pt is medically stable to be discharged. Pt somewhat expressed her agreement with discharge and she is requested to make sure [facility]
will restart home infusion therapy and [facility] will provided 24/7 caregiver services. Pt gave me her permission and she stated she hired more staff, pt approved for 24/7 caregiver services and she will be able to arrange caregiver
services for tomorrow. Cookie lucy to communicate it with her mother and pt stated her mother can be anxious with her coming home.
CM spoek to pt's mother and she expressed her anxious feelings and she stated that she will not be able to care for pt at home and [facility] home health must to provide 24/7 care.
CM spoke to [facility] director of nurses Cookie [phone]
--- NOTE | 2023-07-02 16:11 | CM ---
CM following re: discharge planning.
Discussed in rounds, reviewed pt's chart, met with pt.
During Rounds meeting hospitalist, lieutenant fire fighter, RN and SW met with pt and according to MD team pt is medically stable to be discharged. Pt somewhat expressed her agreement with discharge and she is requested to make sure [facility]
will restart home infusion therapy and [facility] will provided 24/7 caregiver services. Pt gave me her permission to communicate it with her mother and pt stated her mother can be anxious with her coming home.
CM spoke to pt's mother and she expressed her anxious feelings and she stated that she will not be able to care for pt at home and [facility] must to provide 24/7 car.
CM spoke to [facility] director of nurses Cookie [phone] and she stated she hired more staff, pt approved for 24/7 caregiver services and she will be able to arrange caregiver services for tomorrow. Cookie promised to call me back to confirm
that caregiver services will be available tomorrow by 2:00 p.m.
CM spoke to [facility] RN Tomeka [phone], spoke to [facility] pharmacist Saravanan, pt's med list faxed to [facility]. Pharmacist Saravanan confirmed pt's IV medication with hospitalist. Pharmacist
Saravanan called me back to confirm whether or not pt can administer IF medication during transportation home and IV pump with a bag of meds will be delivered to pt's room. Pt expressed to veena Coe her disappointed feelings regarding discharge
tomorrow, she stated that Friday discharge will not be good neither and she brought her thoughts whether or not she can stay here till Friday.
Pt is requested VN services. A list of VN vendors provided. pt preferred [facility]. A referral to [facility] VN made.
Awaiting for confirmation from [facility] regarding caregiver services in place and confirmation with [facility].
D/C plan: home with [facility], [facility] VN, resumptions of 24/7 [facility] caregiver services and family support.
CM will follow to assist pt with discharge home probably tomorrow when after care services confirmed.
[2023-07-02 16:42] LABS: Glucose - Point of Care 179 mg/dl (70-99)
[2023-07-02] MEDS: ZYRTEC 10 MG TUBE ×2 (17:13→21:28)
--- NOTE | 2023-07-02 18:07 | PTCARENOTE ---
Patient rang sanchez to get back in bed from chair. Had previously ambulated with phsyical therapy, stand by assist with walker and braces. (aspen and back). RN (myself) and PCT (Zaki Costa) at patient's sides. Disconnected blood pressure cuff,
(pressure was in patient's normal range), and pulse ox to not have tripping hazards. Assisted patient with straightening non skid socks. Patient was at left side of bed, walker was placed infront of patient. Patient stood with minimal assist
while both holding arms. She stood for 5-10 seconds while adjusting and directing her back to bed. Patient then dropped to her knees, still maintained trunk control and was upright still being supported by myself, PCT and walker. She was holding
herself up with the walker while staff assist was called. Khai Granado RN came and stood patient up and assisted patient back to bed. Dr. Michael called to bedside to assess patient. Notified Dr. Kirk and Risk management as well. Patient
then complained of dystonia and asked for rescue meds. Asked for more pain medication. Gave PRN PO diluadid as charted in MAR. Patient was then able to successfully scroll through her cell phone and show me pictures of her gown from falling in
[facility]. Patient did say 'she was sorry that we had to do an event report'. She was tearful and emotional. Support provided.
--- NOTE | 2023-07-02 20:36 | PTCARENOTE ---
Received patient in bed, following commands, not complaining of pain, requesting ice for ankle from fall earlier. Moves all extremities. Sinus tachycardia, 110s, BP stable. Palpable radial and pedal pulses bilaterally. Generalized anasarca +2. 97%
on 3 liters nasal cannula, lung sounds diminished. Abdomen soft, round, GJ tube intact, J to drainage, draining brown liquid. Purewick intact, draining yellow urine. Bruising throughout skin. Right DL PICC WNL, benadryl gtt and NSS gtt on. Hourly
rounding and patient safety checks ongoing.
[2023-07-02] MEDS: FEOSOL 325 MG PO (21:27)
[2023-07-02 21:38] LABS: Glucose - Point of Care 315 mg/dl (70-99)
[2023-07-02] MEDS: NOVOLOG FLEXPEN 7 UNITS SC (21:38)
[2023-07-03] VITALS (7 sets, daily range): BP systolic 124–155; BP diastolic 88–116; BMI 32.7
--- NOTE | 2023-07-03 01:50 | PTCARENOTE ---
Patient assessment unchanged from previous. Given prn dilaudid and benadryl per patient request as patient had started having dystonia in hands. Purewick changed, canister changed, brief, pad, and pull sheet changed. Perineal care/active toileting
provided. Patient washing self up in bed. Hourly rounding and patient safety checks ongoing.
[2023-07-03] MEDS: BENADRYL 25 MG IV ×5 (02:10→22:28)
[2023-07-03] MEDS: DILAUDID 8 MG PO ×4 (02:10→14:46)
[2023-07-03] MEDS: SOLU-MEDROL PF 25 MG IV ×2 (05:26→17:53)
[2023-07-03] MEDS: INDERAL 10 MG TUBE ×3 (05:27→22:28)
[2023-07-03] MEDS: TYLENOL 650 MG TUBE ×3 (05:27→17:52)
[2023-07-03] MEDS: SINEMET 25-100 1.5 TABLET TUBE ×2 (05:28→10:13)
[2023-07-03] MEDS: LIORESAL 10 MG PO ×3 (05:29→22:29)
[2023-07-03] MEDS: DUONEB 3 ML INH (05:31)
[2023-07-03] MEDS: SUBUTEX 2 MG SL ×3 (05:35→17:51)
[2023-07-03] MEDS: ATIVAN 1 MG SL ×3 (05:35→17:51)
--- NOTE | 2023-07-03 05:40 | PTCARENOTE ---
Patient rang using call sanchez, having a dystonic attack. PRN benadryl and dilaudid given, patient requested respiratory for prn duoneb, RT to bedside. Hourly rounding and patient safety checks ongoing.
[2023-07-03] MEDS: ZOFRAN 4 MG IV ×2 (05:50→15:37)
[2023-07-03] MEDS: NSS 1000 IV (05:55)
[2023-07-03 07:49] LABS: Glucose - Point of Care 134 mg/dl (70-99)
[2023-07-03] MEDS: NON-FORMULARY ITEM 20 MG PO ×2 (08:02→17:16)
[2023-07-03] MEDS: GASTROCROM 300 MG TUBE ×4 (08:08→22:28)
[2023-07-03] MEDS: MYLICON 80 MG PO (08:10)
[2023-07-03] MEDS: LIDOCAINE 4% PATCH 1 PATCH TOPICAL (08:10)
[2023-07-03] MEDS: MYCELEX TROCHE 10 MG PO ×5 (08:11→22:28)
[2023-07-03] MEDS: HYDREA 500 MG PO ×2 (08:11→20:06)
[2023-07-03] MEDS: MIRALAX TUBE (08:11)
[2023-07-03] MEDS: NON-FORMULARY ITEM 80 MG PO (08:12)
[2023-07-03] MEDS: VITAMIN C 1250 MG PO (08:14)
[2023-07-03] MEDS: NON-FORMULARY ITEM 2 MG PO ×2 (08:14→20:06)
[2023-07-03] MEDS: BENADRYL 250 MG IV (08:15)
[2023-07-03] MEDS: NOVOLOG FLEXPEN 9 UNITS SC ×3 (08:19→17:32)
[2023-07-03] MEDS: NOVOLOG FLEXPEN-MODERATE RESISTANCE SC (08:19)
[2023-07-03] MEDS: ZADITOR 1 DROP OPHTH ×2 (08:21→22:29)
[2023-07-03] MEDS: LANTUS 0.220000000000000001 UNITS SC (08:26)
--- NOTE | 2023-07-03 08:48 | PTCARENOTE ---
recd pt, requesting oral meds before breakfast, see ALEJANDRO. Benadryl infusion and fluids continue, purewick draining. Talkative, states 'of course I'd like to go home today' Presently eating breakfast, call sanchez in reach, tolerating 3l, notes has
oxygen concentrator at home.
--- NOTE | 2023-07-03 09:08 | W.PN.INTV ---
Today's Communication / Plan
Recommendations
Decrease steroids as tolerated --> although we are giving solumerol 25mg IV BID, we will DC home on 40mg IV BID and with slow taper
Tryptase and histamine levels noted
Encouraged decreased opiates, benzodiazepine use
Increase mast cell stabilizers as needed
On 06/30, I discussed assisted IV access prior to discharge - patient interested in obtaining Rose as she has fears that her PICC will fail as it has been in place for >10-11 months now and she has a Hx of peripheral venous stenosis - I consulted
IR for their opinion on the matter.
Patient being discharged home today. Gis Specialist/pulmonary service will now sign off. Please re-consult if there are any additional questions/concerns, or if there is deterioration in her respiratory status. If for some reason the patient does
not go home, we will continue to follow along.
Assessment
-
32-year-old unfortunate morbidly obese female with multiple medical problems including mast cell activation syndrome, POTS, dopa sensitive dystonia as well as a history of DVT and pulmonary embolism, steroid-induced osteoporosis with multiple
compression fractures and chronic pain syndrome presented with mast cell activation/anaphylaxis requiring epinephrine, steroids, and intravenous Benadryl necessitating intensive care unit monitoring-sleeper cutter consulted for anaphylaxis/mast cell
activation syndrome/critical care management 06/23/2023.
Assessment
Mast cell activation syndrome with flare-diagnosed via elevated urinary N-methylhistamine levels by Dr. Villanueva
Recurrent suspicion by clinicians that majority of these flares are not real-psychiatry believes patient 'believes she has real events'-difficult situation as treatment may be worse than the disease-osteoporosis, etc.
Mild leukocytosis
Anemia
Hyperglycemia
Conditions present prior to admission:
Mast cell activation syndrome-Dr. Villanueva-[place].
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
POTS.
Dopa sensitive dystonia.
DVT/PE.
Steroid-induced diabetes.
Steroid-induced osteoporosis.
Multiple compression fractures.
Chronic pain syndrome.
GERD.
Migraine headaches.
Obstructive sleep apnea on AutoPap-last seen by Dr. Cagle 03/2021-now followed by Dr. Law-[facility]
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
Restless leg syndrome.
Insomnia.
Asthma.
Vocal cord dysfunction.
Anxiety.
Neurocardiogenic syncope.
Weenti-Lwcsct-jgdggmicodqgh type.
Chronic vertigo.
Raynaud's.
IBS.
Gastroparesis.
Covid 12/2021
Plan
I spoke with Dr. Villanueva yesterday --> pt does carry a formal diagnosis of mast celll activation syndrome, which can have normal rtyptase and histamine levels in atypical cases
Given that the pt is at her baseline medication use at home, we will plan for discharge --> she is tentatively being picked up today at 4pm for discharge back home
Case management will assist us in making sure that the pt has home nursing and all her medications available for her so that they are ready when she gets home
Dr. Kirk yesterday had contacted her pharmacy to assure her infusions and other meds are going to be ready for the pt when she is back home
prn epi stopped on 07/01
Continue subutex; prn IV dilaudid also stopped
Risk management consult placed by nursing care on 07/01
Continue supplemental oxygen as needed
Aspiration precautions
Incentive spirometry
Nebulizers as needed-currently not bronchospastic-has history of asthma-currently stable
Apparently has a history of vocal cord dysfunction-appears to be stable at this moment
AutoPap therapy at nighttime with oxygen-patient brought own machine
Per Dr. Concepcion:
Mast cell flare treatment ongoing-initial plan was to transfer to [facility] as her inside sales Dr. Villanueva is at [facility]-was declined-of note Dr. Cagle reviewed the case with [facility] pulmonary/sleeper cutter on 06/23/2023 and they would not
accept patient as stated they would not have anything to offer-minimal hematology and allergy consultation available and recommended checking with [facility]
Hematology correspondence reviewed-Dr. Blank reviewed the case with Dr. Villanueva-patient has been banned from admissions to [facility] also refuses admissions stating they would not be able to do anything else
for her, case was also discussed with Dr. Coe and the internal medicine hospitalist at [facility] and they also declined transfer. She also left message with [facility] who specializes in mast cell disorders-Dr. Geovani Bernstein to discuss the patient.
Dr. Cagle reviewed the case with Dr. Campa and Dr. Rich extensively on 06/26/2023-consider genetic testing for hereditary forms if not previously done, titrate cromolyn sodium and possibly try other mast cell stabilizers-critical care pharmacy also
involved as may need compounding to make oral medication-Dr. Cagle willing to write prescription which would be taken to [facility] pharmacy for compounding-completed and medication initiated 06/27/2023.
Cromolyn sodium was going to be titrated up to 1000 mg 4 times daily-the issue with this is that the patient says that she has a difficult time obtaining this and if we increase her dose while hospitalized she will likely unable to be able to obtain
the same dosage as an outpatient. Continue 300 mg QID
Compounding [facility] pharmacy of Ketotifen 2 mg twice daily initiated as a mast cell stabilizer as well on 06/27/2023-told patient this could be a 'game changer' to control her disease and wean her off steroids
Checked tryptase levels which were normal:
Tryptase level 11/06/2020-less than 2
Tryptase level 06/26/2023-1.4 and within normal limits-should be elevated with true flare, however as per Dr. Villanueva, these levels can be normal in some cases rj if the pt is taking systemic steroids
Random histamine level 06/26/2023-WNL
Consider genetic testing if not previously done for hereditary forms
Benadryl intravenously-continues as well as boluses as needed
Ativan continues as needed
Methylprednisolone-decreased to 25 mg IV every 12 hours on 06/29/2023 --> she will be sent home and use 40mg IV BID and this can be weaned slowly as an outpatient (she says that this entire flare started when her steroids were weaned down to 40mg IV
BID from 60mg BID)
DuoNebs as needed
Continue with Gleevec per hematology
Hydrea - 500 mg twice daily
Allergy/immunology consultation recommended
Dr. Cagle had long discussion with patient attempting to set up 'goals'-told patient care team attempting to get to the 'root of the problem' which is mast cell stabilization-with the sincere hopes of increasing cromolyn sodium and initiating
Ketotifen-subsequently she will not need epinephrine, opiates, benzodiazepines, Benadryl, and steroids-encouraged decrease use of opiates and benzodiazepines, will reduce steroids, and hopefully Benadryl will be decreased as well
Note: Percutaneous G/J-tube replaced 06/25/2023
Continue carbidopa/levodopa for her dystonia --> I advised to the patient to seekk appt with neurology to get her DSD under control, as it appears that she has dystonic reactions and then that makes her SOB and then leads her to have a flare of her
MCAS. Hence, if her DSD gets under control, then her MCAS will also get under control. She is in agreement with this.
Per Dr Concepcion - Psychiatric evaluation performed 06/25/2023-patient reports seeing mental health professionals multiple times in the past and is currently on 2 separate Zoom therapies weekly-reviewed correspondence and personally spoke to psychiatry
on 06/27/2023
DVT prophylaxis-on Lovenox therapeutic dose
Nutrition
Early mobilization/physical therapy consult as well as Occupational Therapy consult
Outpatient pulmonary/sleep disorders [id number]-jt-XzDr. Law
Follow up with Dr. Villanueva
Dispo: Patient being discharged home today. Gis Specialist/pulmonary service will now sign off. Please reconsult if there are any additional questions/concerns, or if there is deterioration in her respiratory status. Thank you for allowing us to
be involved in the care of this interesting patient.
Diagnostic data:
Chest x-ray 01/16/2021-NAD
Chest x-ray 02/16/2023-lungs clear
Chest x-ray 06/20/2023-lungs clear, right PICC line in place
CXR 06-24-2023: No active cardiopulmonary disease; the tip of the new right-sided PICC line extends to the cavoatrial junction
HAH-Ffkwxw-6/19/2019-МАРИЯ-6, desaturation fidencio 91%, AutoPap
MSLT Gnosticist 03/18/2019--06/23 SOREM
Subjective Dataa
Subjective Data
Date of Service:
Date of Service: July 03, 2023
Chief Complaint: Gis Specialist Follow Up and Pulmonary Follow Up
Subjective:
Patient seen this morning. Had a dystonic episode earlier this morning. She is currently on 3 L/min saturating 97%. She is still upset mainly that she was told she was having Munchhausen syndrome from a note that she had reviewed, and she is
worried that her PICC line will become dysfunctional when she arrives home. Currently denies shortness of breath, headache, abdominal pain, fevers or chills. She had lost her balance yesterday evening when she was being assisted back to bed and
she fell to the ground to no head trauma, no loss of consciousness. I went to see patient immediately after that had happened and she was already back in bed speaking in complete sentences and moving all extremities.
Review of Systems
General: Other (Negative unless mentioned above)
Objective Data
Data Reviewed
Vital Signs / I&O / Oxygen:
Vital Signs
Temp Pulse Resp BP Pulse Ox
98.9 F 104 19 125/96 95
07/03/23 08:18 07/03/23 08:00 07/03/23 08:00 07/03/23 08:00 07/03/23 08:00
Intake and Output
07/02/23 07/03/23 07/04/23
06:59 06:59 06:59
Intake Total 1800 / 1865 2140 / 2205 370 / 370
Output Total 3100 / 3100 4150 / 4150
Balance -1300 / -1235 -2009 / 370 / 370
SaO2 95
Nasal Cannula flow liters per 3
minute
Physical Exam
General: Respiratory Distress (n) and Comfortable
HEENT: Normocephalic, Anicteric and Other (No stridor appreciated upon auscultation of trachea)
Cardiovascular: S1-S2 and Peripheral Edema (Negative)
Respiratory: Clear, Wheeze (n), Crackles (n), Rhonchi (n), Non-Labored Respirations and Accessory Resp Muscle Use (n)
GI: Soft, Non Distended and Non Tender
Neurology: Awake, Alert and No Motor Deficits
Skin: Warm, Dry, Cyanosis (n), Jaundice (n) and Rash (n)
Labs/Micro/Reports
Lab Data
07/01/23 06:24
07/01/23 06:24
[2023-07-03] MEDS: PEPCID 40 MG IV ×2 (09:42→22:27)
[2023-07-03] MEDS: NSS (PRESERVATIVE FREE) 16 ML IV ×2 (09:42→22:27)
[2023-07-03] MEDS: VITAMIN D3 (cholecalciferol) 50 MCG PO (10:13)
[2023-07-03] MEDS: LOVENOX 90 MG SC ×2 (10:13→22:27)
[2023-07-03] MEDS: VITAMIN B1 100 MG TUBE (10:13)
[2023-07-03] MEDS: OSCAL 500 + D 500 MG PO ×2 (10:14→17:51)
[2023-07-03] MEDS: NON-FORMULARY ITEM 2 SPRAY NASAL (10:14)
[2023-07-03] MEDS: NON-FORMULARY ITEM 180 MG PO ×2 (10:15→14:02)
--- NOTE | 2023-07-03 11:50 | CM ---
CM following re: discharge planning.
CM has been working diligently to coordinate pt's care upon the discharge.
CM spoke to [facility] [phone] and she confirmed that they do have availability to provide 24/7 carte to pt at home and she confirmed that a caregiver will beat pt's home at 4:00 p.m. and transportation requested with pick and shovel worker
time 4:00 p.m.
CM spoke to [facility] pharmacist Saravanan and he was confirmed that pt will be discharged today to home at 4:00 p.m. Saravanan stated that a bag of IV Benadryl will be delivered to pt's room shortly, pt has IV infusion pump here and per
Saravanan pt confirmed to him she will be able to hook and eye machine operator IV by herself and no RN from [facility] is needed for that.
CM spoke to [facility] liaison Mary and she confirmed that pt is accepted for VN services and she is aware that pt will be discharged home today.
CM spoke to pt's mother and pt's stepfather and both expressed their disappointment regarding pt's discharge. CM explained in details coordination of discharge plan, communication with pt and pt's mother yesterday and today, coordination with
community based vendors: [facility] 24/7 caregiver services, [facility], [facility] and both pt's mother and pt's father expressed their understanding. Pt's mother asked me to confirm that her daughter will be accepted back to when
she needs it. CM assured pt's mother that team provides a care to everyone who needs it/requires it and also, in order for continuity of care CM advised pt's mother to bring her daughter to a hospital where all pt's doctors are. Pt's mother is
aware that transportation will be arranged for 4:00 p.m. and all required after care services are coordinated and in place. Pt's mother expressed her concerns regarding pt's addicted medications and CM advised pt's mother to discuss it with .
is aware of the request. Pt's mother asked to make sure [facility] will have caregiver services 24/7 and in case pt will fire a caregiver. CM advised pt's mother to coordinate it with [facility].
Transportation arranged by with [facility], ALS due to pt's needs continuously IV infusion. Per mother there are 2 steps to enter the house and pt stays on the first floor. [facility] completed and left with . CM called [facility], spoke to
sales representative supervisor Fabiola, ambulance transpiration requested with [facility] and they will call [facility] with a generated auth.
CM met with pt, she is aware of 4:00 p.m. pick and shovel worker time, expressed her agreement with going home 'as soon as possible', appreciated coordination of her discharge services/needs. Pt is requested to go over discharge instructions prior to her
discharge to make sure all her discharge medications are there. Both MD and RN are aware.
Please fax discharge instructions to following after care providers:
- [facility] at [phone]
- [facility] health care [phone]
- [facility] [phone]
D/c plan: home with [facility], resumptions of [facility], resumptions of [facility] 24/7 caregiver services and family support.
No other discharge needs identified.
[2023-07-03 11:56] LABS: Glucose - Point of Care 219 mg/dl (70-99)
[2023-07-03] MEDS: NOVOLOG FLEXPEN-MODERATE RESISTANCE 3 UNITS SC ×2 (12:08→17:33)
--- NOTE | 2023-07-03 12:41 | PTCARENOTE ---
discharge order noted, OOB to chair with self-applied neck and back braces, once in chair, comfortable, eating. Verbalizing and occasionally tearful about situation. CHG bath, attends changed, new purewick applied.
[2023-07-03] MEDS: NON-FORMULARY ITEM 200 MG PO (14:03)
[2023-07-03] MEDS: SINEMET 25-100 2 TABLET TUBE ×2 (14:13→17:52)
--- NOTE | 2023-07-03 15:27 | PTCARENOTE ---
back to bed, another dystonic episode, medications given as ordered and requested by pt, alfredo, atmino schreiber, and gaylaaudid.
[2023-07-03] MEDS: ZADITOR OPHTH (16:41)
[2023-07-03 17:06] LABS: Glucose - Point of Care 232 mg/dl (70-99)
--- NOTE | 2023-07-03 17:38 | PTCARENOTE ---
delivery from home care pharmacy, benadryl volume bag arrived without tubing. pt escalating this to get corrected, case management aware, ambulance company for transport unable to complete transfer [place]. infusion pharmacy to send paulette huston,
for discharge in am. pt managing multiple issues, ordered and presently eating dinner, attempting to maintain positive attitude with encouragement. physical assessment unchanged. remains on only continuous pulse ox/HR monitored via pulse ox. IV
fluids and benadryl continues.
[2023-07-03] MEDS: ZYRTEC 10 MG TUBE ×2 (17:52→22:28)
--- NOTE | 2023-07-03 20:15 | PTCARENOTE ---
Received patient AAOx3, following commands, HICKEY, not complaining of pain. Sinus tach, 100s. BP stable. Palpable radial and pedal pulses bilaterally. +2 generalized anasarca. 97% on 3 liters, lung sounds diminished throughout. GJ tube in tact, ate
100% of dinner, abdomen soft, round, obese. Purewick in place, draining yellow urine. Skin bruised throughout. Right DL PICC WNL, NSS and benadryl gtt ongoing. Patient washed self up with warm water, basin, and wash cloths. Patient did mouth care.
Hourly rounding and safety checks ongoing.
[2023-07-03] MEDS: FEOSOL 325 MG PO (22:28)
--- NOTE | 2023-07-03 22:43 | PTCARENOTE ---
Patient called, having a dystonia attack. Given prn benadryl, prn ativan not due until 2348. Patient talking through episode, requesting meds and blanket, provided. Hourly rounding and patient safety checks ongoing.
[2023-07-03 23:53] LABS: Glucose - Point of Care 209 mg/dl (70-99)
[2023-07-04] MEDS: TYLENOL 650 MG TUBE ×2 (00:31→05:25)
[2023-07-04] MEDS: ATIVAN 1 MG SL ×2 (00:31→05:25)
[2023-07-04] MEDS: SUBUTEX 2 MG SL ×2 (00:31→05:25)
[2023-07-04] MEDS: NOVOLOG FLEXPEN 3 UNITS SC (00:31)
[2023-07-04] MEDS: NSS 1000 IV (00:32)
[2023-07-04] MEDS: BENADRYL 250 MG IV (01:37)
[2023-07-04] MEDS: BENADRYL 25 MG IV ×2 (04:15→09:16)
[2023-07-04] MEDS: DILAUDID 8 MG PO ×2 (04:16→09:15)
[2023-07-04] MEDS: ATIVAN 2 MG SL ×2 (04:21→09:17)
--- NOTE | 2023-07-04 04:23 | PTCARENOTE ---
Patient rang call sanchez having another dystonic attack, requested prn ativan, dilaudid, and benadryl. Patient reporting 8/10 pain in left ankle. Otherwise patient assessment unchanged from previous. Hourly rounding and safety checks ongoing.
[2023-07-04 04:25] VITALS: BP 134/107
[2023-07-04] MEDS: LIORESAL 10 MG PO (05:25)
[2023-07-04] MEDS: SINEMET 25-100 1.5 TABLET TUBE ×2 (05:25→09:26)
[2023-07-04] MEDS: SOLU-MEDROL PF 25 MG IV (05:25)
[2023-07-04] MEDS: INDERAL 10 MG TUBE (05:25)
[2023-07-04 05:36] VITALS: BMI 33.5
[2023-07-04] MEDS: GASTROCROM 300 MG TUBE (07:23)
[2023-07-04] MEDS: NON-FORMULARY ITEM 20 MG PO (07:27)
[2023-07-04 07:41] LABS: Glucose - Point of Care 171 mg/dl (70-99)
[2023-07-04] MEDS: NOVOLOG FLEXPEN-MODERATE RESISTANCE 1 UNITS SC (07:43)
[2023-07-04] MEDS: NOVOLOG FLEXPEN 9 UNITS SC (07:43)
[2023-07-04 07:45] VITALS: BP 140/94
[2023-07-04] MEDS: MYCELEX TROCHE 10 MG PO (07:45)
[2023-07-04] MEDS: LANTUS 0.220000000000000001 UNITS SC (07:50)
--- NOTE | 2023-07-04 08:00 | PTCARENOTE ---
recd pt as discharged awaiting transport. NS and benadryl infusions continue, purewick in place. verbalizing appropriately about plans for the day, worried about packing and supplies, cart packed and family to doorway to pack car. PICC
maintained. anxious. see MAR for abundance of meds and times.
[2023-07-04] MEDS: MYLICON 80 MG PO (08:16)
[2023-07-04] MEDS: HYDREA 500 MG PO (08:16)
[2023-07-04] MEDS: MIRALAX 17 GRAMS TUBE (08:17)
[2023-07-04] MEDS: VITAMIN C PO (08:17)
[2023-07-04] MEDS: LIDOCAINE 4% PATCH 1 PATCH TOPICAL (08:17)
[2023-07-04] MEDS: NON-FORMULARY ITEM 80 MG PO (08:18)
[2023-07-04] MEDS: ZADITOR 1 DROP OPHTH (08:23)
[2023-07-04] MEDS: NON-FORMULARY ITEM 2 MG PO (08:23)
--- NOTE | 2023-07-04 08:58 | W.PN.PUL3 ---
Today's Communication / Plan
-
Decrease steroids as tolerated --> although we are giving solumerol 25mg IV BID, we will DC home on 40mg IV BID and with slow taper
Tryptase and histamine levels noted
Encouraged decreased opiates, benzodiazepine use
Increase mast cell stabilizers as needed
On 06/30, I discussed watermaster IV access prior to discharge - patient interested in obtaining Rose as she has fears that her PICC will fail as it has been in place for >10-11 months now and she has a Hx of peripheral venous stenosis - I consulted
[facility] for their opinion on the matter. They never got back to me on this, and I messaged them on TT as well.
Patient being discharged home today. � Water Pump Installer/pulmonary service will now sign off.� Please re-consult if there are any additional questions/concerns, or if there is deterioration in her respiratory status.� If for some reason the patient does
not go home, we will continue to follow along.
Assessment
-
32-year-old unfortunate morbidly obese female with multiple medical problems including mast cell activation syndrome, POTS, dopa sensitive dystonia as well as a history of DVT and pulmonary embolism, steroid-induced osteoporosis with multiple
compression fractures and chronic pain syndrome presented with mast cell activation/anaphylaxis requiring epinephrine, steroids, and intravenous Benadryl necessitating intensive care unit monitoring-clinical pharmacy coordinator consulted for anaphylaxis/mast cell
activation syndrome/critical care management 06/23/2023.
Assessment
Mast cell activation syndrome with flare-diagnosed via elevated urinary N-methylhistamine levels by Dr. Villanueva
Recurrent suspicion by clinicians that majority of these flares are not real-psychiatry believes patient 'believes she has real events'-difficult situation as treatment may be worse than the disease-osteoporosis, etc.
Mild leukocytosis
Anemia
Hyperglycemia
Conditions present prior to admission:
Mast cell activation syndrome-Dr. Villanueva-[facility].
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
POTS.�
Dopa sensitive dystonia.�
DVT/PE.�
Steroid-induced diabetes.�
Steroid-induced osteoporosis.�
Multiple compression fractures.�
Chronic pain syndrome.�
GERD.�
Migraine headaches.
Obstructive sleep apnea on AutoPap-last seen by Dr. Cagle 03/2021-now followed by Dr. Maria
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
Restless leg syndrome.�
Insomnia.�
Asthma.�
Vocal cord dysfunction.�
Anxiety.�
Neurocardiogenic syncope.�
Bifuun-Gzgrhk-sfivaibgwgaiq type.�
Chronic vertigo.�
Raynaud's.�
IBS.�
Gastroparesis.
Covid 12/2021
Plan
I spoke with Dr. Villanueva 2 days ago --> pt does carry a formal diagnosis of mast celll activation syndrome, which can have normal rtyptase and histamine levels in atypical cases
Given that the pt is at her baseline medication use at home, we will plan for discharge -->�she being picked up today at 10AM for discharge back home
Case management will assist us in making sure that the pt has home nursing and all her medications available for her so that they are ready when she gets home
Dr. Kirk 2 days ago had contacted her pharmacy to assure her infusions and other meds are going to be ready for the pt when she is back home
prn epi stopped on 07/01
Continue subutex;� prn IV dilaudid also stopped
Risk management consult placed by nursing care on 07/01
Continue supplemental oxygen as needed
Aspiration precautions
Incentive spirometry
Nebulizers as needed-currently not bronchospastic-has history of asthma-currently stable
Apparently has a history of vocal cord dysfunction-appears to be stable at this moment
AutoPap therapy at nighttime with oxygen-patient brought own machine
Per Dr. Concepcion:
Mast cell flare treatment ongoing-initial plan was to transfer to [place] as her sample taker operator Dr. Villanueva is at [facility]-was declined-of note Dr. Cagle reviewed the case with [facility] pulmonary/clinical pharmacy coordinator on 06/23/2023 and they would not
accept patient as stated they would not have anything to offer-minimal hematology and allergy consultation available and recommended checking with [facility]
Hematology correspondence reviewed-Dr. Blank reviewed the case with Dr. Villanueva-patient has been banned from admissions to [facility], [facility] also refuses admissions stating they would not be able to do anything else
for her, case was also discussed with Dr. Coe and the internal medicine hospitalist at [facility] and they also declined transfer.� She also left message with [facility] group who specializes in mast cell disorders-Dr. Geovani Bernstein to discuss the patient.
Dr. Cagle reviewed the case with Dr. Campa and Dr. Rich extensively on 06/26/2023-consider genetic testing for hereditary forms if not previously done, titrate cromolyn sodium and possibly try other mast cell stabilizers-critical care pharmacy also
involved as may need compounding to make oral medication-Dr. Cagle willing to write prescription which would be taken to [facility] pharmacy for compounding-completed and medication initiated 06/27/2023.
Cromolyn sodium was going to be titrated up to 1000 mg 4 times daily-the issue with this is that the patient says that she has a difficult time obtaining this and if we increase her dose while hospitalized she will likely unable to be able to obtain
the same dosage as an outpatient.� Continue 300 mg QID
Compounding [facility] pharmacy of Ketotifen 2 mg twice daily initiated as a mast cell stabilizer as well on 06/27/2023-told patient this could be a 'game changer' to control her disease and wean her off steroids
Checked tryptase levels which were normal:
Tryptase level 11/06/2020-less than 2
Tryptase level 06/26/2023-1.4 and within normal limits-should be elevated with true flare, however as per Dr. Villanueva, these levels can be normal in some cases rj if the pt is taking systemic steroids
Random histamine level 06/26/2023-WNL
Consider genetic testing if not previously done for hereditary forms
Benadryl intravenously-continues as well as boluses as needed
Ativan continues as needed
Methylprednisolone-decreased to 25 mg IV every 12 hours on 06/29/2023 --> she will be sent home and use 40mg IV BID and this can be weaned slowly as an outpatient (she says that this entire flare started when her steroids were weaned down to 40mg IV
BID from 60mg BID)
DuoNebs as needed
Continue with Gleevec per hematology
Hydrea - 500 mg twice daily
Allergy/immunology consultation recommended
Dr. Cagle had long discussion with patient attempting to set up 'goals'-told patient care team attempting to get to the 'root of the problem' which is mast cell stabilization-with the sincere hopes of increasing cromolyn sodium and initiating
Ketotifen-subsequently she will not need epinephrine, opiates, benzodiazepines, Benadryl, and steroids-encouraged decrease use of opiates and benzodiazepines, will reduce steroids, and hopefully Benadryl will be decreased as well
Note: Percutaneous G/J-tube replaced 06/25/2023
Continue carbidopa/levodopa for her dystonia --> I advised to the patient to seekk appt with neurology to get her DSD under control, as it appears that she has dystonic reactions and then that makes her SOB and then leads her to have a flare of her
MCAS.� Hence, if her DSD gets under control, then her MCAS will also get under control.� She is in agreement with this.
Per Dr Concepcion - Psychiatric evaluation performed 06/25/2023-patient reports seeing mental health professionals multiple times in the past and is currently on 2 separate Zoom therapies weekly-reviewed correspondence and personally spoke to psychiatry
on 06/27/2023
DVT prophylaxis-on Lovenox therapeutic dose
Nutrition
Early mobilization/physical therapy consult as well as Occupational Therapy consult
Outpatient pulmonary/sleep disorders [facility]. [facility]
Follow up with Dr. Villanueva
Dispo:��Patient being discharged home today. � Water Pump Installer/pulmonary service will now sign off.� Please reconsult if there are any additional questions/concerns, or if there is deterioration in her respiratory status.� Thank you for allowing us to
be involved in the care of this interesting patient.
Diagnostic data:
Chest x-ray 01/16/2021-NAD
Chest x-ray 02/16/2023-lungs clear
Chest x-ray 06/20/2023-lungs clear, right PICC line in place
CXR 06-24-2023: No active cardiopulmonary disease; the tip of the new right-sided PICC line extends to the cavoatrial junction
WLB-Poysml-8/19/2019-МАРИЯ-6, desaturation fidencio 91%, AutoPap
[facility] 03/18/2019--2 SOREM
Subjective Data
-
Date of Service:
Date of Service: July 04, 2023
Chief Complaint: Pulmonary Follow Up
Subjective:
Patient seen this morning. No acute events reported overnight. She is up waiting to be picked up to go home.
Review of Systems
General: Other (Negative unless mentioned above)
Objective Data
Data Reviewed
Vital Signs / I&O / Oxygen:
Vital Signs
Temp Pulse Resp BP Pulse Ox
97.7 F 105 24 134/107 96
07/04/23 07:33 07/03/23 18:00 07/03/23 15:00 07/04/23 04:25 07/04/23 06:00
Intake and Output
07/03/23 07/04/23 07/05/23
06:59 06:59 06:59
Intake Total 2140 / 2205 1860 / 1860
Output Total 4150 / 4150 4600 / 4600
Balance -2009 / -1945 -2740 / -2740
SaO2 96
Nasal Cannula flow liters per 3
minute
Physical Exam
General: Comfortable and Other (Morbidly obese)
HEENT: Normocephalic, Anicteric and Other (Thick neck)
Cardiovascular: S1-S2
Respiratory: Clear, Wheeze (Negative) and Non-Labored Respirations
GI: Soft, Non Distended and Non Tender
Neurology: Awake and Alert
Skin: Warm and Dry
Labs/Micro/Reports
Lab Data
07/01/23 06:24
07/01/23 06:24
--- NOTE | 2023-07-04 09:00 | PTCARENOTE ---
notes dystonic episode, meds given as requested and ordered. notes pain and did request dilaudid PO as well as ativan and benadryl. neck brace applied at pt request for proper positioning. worried about transfer, making arrangements for meds,
pharmacy, nursing care - tearful at times, support given.
--- NOTE | 2023-07-04 09:07 | CM ---
CM following re: discharge planning.
late yesterday discharge cancelled due to [facility] infusion therapy did not send tube with meds. CM spoke to [facility] infusion pharmacist Harry (Saravanan left at that time) and she confirmed that a bag of medication with tube kit and pump will be
delivered to pt's room late yesterday around 7:00 p.m.
CM spoke to [facility] ambulance claim service representative Guillermo and she stated that they will not be able to transport pt home later than 6:30 p.m. and at that time transportation has been cancelled and transportation is set up for today at 10:00 a.m.
JOJO spoke to [facility] MATTHEW Gary yesterday regarding delay of discharge and she confirmed that a caregiver will be at pt's home today 07/04/23 at 10:00 a.m.
[facility] liaison is notified of pt's delay on discharge and they will provide services next day of discharge that it Friday07/15/23.
CM spoke to pt's mother and she is aware of pt's discharge today and she stated she will be home to meet her daughter.
Pt is aware of discharge time at 10:00 a.m, expressed her agreement and understanding of [facility] home infusion part that delayed pt's discharge.
Please fax discharge instructions to following after care providers:
- [facility] at [phone]
- [facility] care [phone]
- [facility] infusion [phone]
D/c plan: home with [facility], resumptions of [facility] home infusion, resumptions of [facility] 09/12 caregiver services and family support.
No other discharge needs identified.
[2023-07-04] MEDS: LOVENOX 90 MG SC (09:20)
[2023-07-04] MEDS: OSCAL 500 + D PO (09:27)
[2023-07-04] MEDS: VITAMIN D3 (cholecalciferol) 50 MCG PO (09:27)
[2023-07-04] MEDS: PEPCID 40 MG IV (09:27)
[2023-07-04] MEDS: VITAMIN B1 100 MG TUBE (09:27)
[2023-07-04] MEDS: NSS (PRESERVATIVE FREE) 16 ML IV (09:28)
[2023-07-04] MEDS: NON-FORMULARY ITEM 180 MG PO (09:28)
[2023-07-04] MEDS: NON-FORMULARY ITEM 2 SPRAY NASAL (09:29)
--- NOTE | 2023-07-04 11:33 | PTCARENOTE ---
discharged via ambulance stretcher with all belongings and supplies, pt switched over to CADD prism IV infusion pump, benadryl cassette connected by patient. PICC dressing changed prior to discharge. dressed, turned, cleaned, omer wrap remains to L
ankle. meds given as noted for dystonic symptoms.
--- NOTE | 2023-07-07 11:36 | W.DS.TRANS ---
DC Summary - Histology Assistant
-
Discharge Instructions:
Discharge Diagnosis/Procedures Mast Cell Activation Syndrome flare, with DOPA-
Responsive Dystonia, Recurrent Anaphylaxis/Mast
Cell Flare Episodes
Diet Regular
Instructions:
Stand-Alone Forms:
Changes to Home Medications: No
Discharge Medications:
DC Medications w/original date entered in [employer]
propranolol 10 mg tablet 10 mg feeding tube TID@0600,1400,2200 Heart disease/condition 04/16/15
cetirizine 10 mg tablet 10 mg feeding tube BID@1800,2200 Allergies 11/03/20
fluticasone furoate 27.5 mcg/actuation nasal spray,suspension (Flonase Sensimist) 2 spray intranasal DAILY@1000 Allergies 11/03/20
ketotifen fumarate 0.025 % (0.035 %) eye drops (Zaditor) 1 drp BOTH EYES TID Eye condition 11/03/20
budesonide 0.5 mg/2 mL suspension for nebulization 0.5 mg inhalation R BID@1000,2000 Lung/breathing issues 09/27/21
diphenhydramine HCl 50 mg/mL injection solution 0 mg IV .CONTINUOUS Allergies 09/27/21
diphenhydramine HCl 50 mg/mL injection solution 25 mg IV Q3HPRN PRN mcas reaction/anaphylaxis/dystonia 09/27/21
etonogestrel 0.12 mg-ethinyl estradiol 0.015 mg/24 hr vaginal ring (NuvaRing) 1 vag.ring VAG MONTHLY Hormonal agent 09/27/21
famotidine (PF) 20 mg/2 mL intravenous solution 40 mg IV Q12H@1000,2200 Gastrointestinal issue 09/27/21
rabeprazole 20 mg tablet,delayed release (AcipHex) 20 mg PO BID@0930,1730 Gastrointestinal issue 09/27/21
ferrous sulfate 325 mg (65 mg iron) tablet (FeroSul) 325 mg PO HS Supplement 10/02/21
rimegepant 75 mg disintegrating tablet (Nurtec ODT) 75 mg PO DAILYPRN PRN migraine 10/02/21
acetaminophen 650 mg tablet,extended release 1,300 mg PO BID@1000,1800 Pain 05/13/22
baclofen 10 mg tablet 10 mg PO TID@0600,1400,2200 Muscle Spasms 05/13/22
cholecalciferol (vitamin D3) 50 mcg (2,000 unit) tablet 50 mcg PO DAILY@1000 Supplement 05/13/22
imatinib 100 mg tablet (Gleevec) 200 mg PO DAILY@1400 MCAS 05/13/22
insulin lispro 100 unit/mL subcutaneous pen 0 - 5 sliding scale dose SC AC Diabetes 05/13/22
lorazepam 2 mg/mL oral concentrate 2 mg sublingual Q6H PRN dystonia 05/13/22
simethicone 80 mg chewable tablet 80 mg PO DAILY Gastrointestinal Issue 05/13/22
thiamine HCl (vitamin B1) 100 mg tablet 100 mg PO DAILY@1000 Supplement 05/13/22
fexofenadine 180 mg tablet 180 mg PO BID@1000,1400 Allergies 06/18/22
carbidopa 25 mg-levodopa 100 mg tablet (Sinemet) 1.5 tab feeding tube BID@0600,1000 DYSTONIA 08/17/22
carbidopa 25 mg-levodopa 100 mg tablet (Sinemet) 2 tab feeding tube BID@1400,1800 DYSTONIA 08/17/22
ondansetron 4 mg disintegrating tablet 4 mg PO Q8HPRN PRN mild nausea 08/17/22
Salt Stick 2 cap feeding tube PRN PRN POTS 02/11/23
ascorbic acid (vitamin C) 1,000 mg tablet (Vitamin C) 1,200 mg PO DAILY Supplement 02/11/23
epinephrine 0.3 mg/0.3 mL injection, auto-injector 0.3 mg IM PRN PRN anaphylaxis 02/11/23
ondansetron HCl (PF) 4 mg/2 mL injection solution 4 mg IV Q8H PRN severe nausea/vomiting 02/11/23
Nss 1,000 ml IV DAILY 10am 03/24/23
Nss 1,000 ml IV DAILYPRN PRN SYMPTOMS 03/24/23
albuterol sulfate 2.5 mg/3 mL (0.083 %) solution for nebulization 2.5 mg inhalation R Q6HPRN PRN anaphylaxis 06/11/23
buprenorphine HCl 2 mg sublingual tablet 2 mg sublingual QID@00,06,12,18 Pain 06/11/23
calcium citrate 200 mg calcium-vitamin D3 6.25 mcg (250 unit) tablet 2 tab PO BID@1000,1800 Supplement 06/11/23
enoxaparin 100 mg/mL subcutaneous syringe 90 mg SC BID@1000,2200 Blood Clot Prevention/Tx 06/11/23
hydromorphone 8 mg tablet 8 mg PO Q3H PRN severe pain 06/11/23
insulin glargine 100 unit/mL (3 mL) subcutaneous pen (Lantus Solostar U-100 Insulin) 15 unit SC DAILY Diabetes 06/11/23
lorazepam 2 mg/mL oral concentrate 1 mg sublingual QID@00,06,12,18 dystonia 06/11/23
simethicone 80 mg chewable tablet 80 mg PO HS PRN gas 06/11/23
aprepitant 80 mg capsule (Emend) 80 mg PO DAILY MCAS 06/23/23
insulin lispro 100 unit/mL subcutaneous pen (Humalog KwikPen (U-100) Insulin) 5 unit SC AC Diabetes 06/23/23
methylprednisolone sodium succ 125 mg solution for injection 60 mg IV DAILYPRN PRN ANAPHYLAXIS 06/23/23
methylprednisolone sodium succ 40 mg/mL solution for injection 40 mg IV BID MAST CELL ACTIVATION SYNDROME 06/23/23
teriparatide 20 mcg/dose (600 mcg/2.4 mL) subcutaneous pen injector 20 mcg SC DAILY Osteoporosis 06/26/23
aprepitant 80 mg capsule 0 mg PO DAILY #30 caps 07/02/23
cromolyn 100 mg/5 mL oral concentrate 300 mg (15 mL) PO .QID-TIMES BELOW mcas #480 mL 07/02/23
hydroxyurea 500 mg capsule 500 mg PO BID #60 caps 07/02/23
Home Medication Changes
Pending Results: No
== END 2023-07-04 13:01 | disposition home health service (06) | DRG 814 ==
LOC: ICU 23:55
PROVIDERS: Internal Medicine; Nurse Practitioner Family; Nurse Practitioner Primary Care; Radiology Vascular & Interventional Radiology; ADMITTING PHYSICIAN Hospitalist; ATTENDING PHYSICIAN Internal Medicine; CONSULT PHYSICIAN Internal Medicine Critical Care Medicine; EMERGENCY PHYSICIAN Student in an Organized Health Care Education/Training Program; FAMILY PHYSICIAN Student in an Organized Health Care Education/Training Program; OTHER PHYSICIAN Internal Medicine Hematology & Oncology; OTHER PHYSICIAN Psychiatry & Neurology Psychiatry
PROC: 0D2DXUZ Change Feeding Device in Lower Intestinal Tract, External Approach (ICD-10-PCS; 2023-06-24)
DX: D89.42 Idiopathic mast cell activation syndrome (principal); J96.01 Acute respiratory failure with hypoxia; Q79.60 Ehlers-Danlos syndrome, unspecified; F11.20 Opioid dependence, uncomplicated; F13.20 Sedative, hypnotic or anxiolytic dependence, uncomplicated; G24.1 Genetic torsion dystonia; G90.A Postural orthostatic tachycardia syndrome [POTS]; G89.4 Chronic pain syndrome; G43.909 Migraine, unspecified, not intractable, without status migrainosus; K21.9 Gastro-esophageal reflux disease without esophagitis; G25.81 Restless legs syndrome; G47.00 Insomnia, unspecified; I73.00 Raynaud's syndrome without gangrene; K31.84 Gastroparesis; E09.65 Drug or chemical induced diabetes mellitus with hyperglycemia; T38.0X5A Adverse effect of glucocorticoids and synthetic analogues, initial encounter; Z86.711 Personal history of pulmonary embolism; Z86.718 Personal history of other venous thrombosis and embolism
CPT/HCPCS: 49452; 71045; 80048; 80053; 82962; 83036; 83088; 83520; 83735; 85025; 85027; 85610; 85730; 94640; 96361; 96374; 96375; 96376; 97163; 97167; 97530; 97535; 99291; C1769

== ENCOUNTER 2023-07-16 17:25 | Emergency (ER) | payer OTHER, SELFPAY ==
[2023-07-16] VITALS (12 sets, daily range): BP systolic 103–151; BP diastolic 53–104; BMI 34.9
[2023-07-16 19:32] LABS: Glucose - Point of Care 144 mg/dl (70-99)
[2023-07-16] MEDS: BENADRYL 25 MG IV ×2 (19:48→21:32)
[2023-07-16] MEDS: ATIVAN 2 MG IV ×2 (19:48→21:30)
[2023-07-16] MEDS: ZOFRAN 4 MG IV (20:00)
--- NOTE | 2023-07-16 20:35 | ED.GENMED ---
History of Present Illness
General
Chief Complaint: Abnormal Lab Value
Source: patient, records and family (Father)
Exam Limitations: none
Time Seen by Provider: 07/16/23 19:29
Nursing documentation reviewed up to this point in time: agreed with
Travel History
Have you had any contact with someone who has COVID-19?: No
Do you have any symptoms of coronavirus? Fever > 100 degrees, chills, cough, shortness of breath, sore throat, loss of taste or smell, muscle aches, or headache?: No
History of Present Illness
History of Present Illness:
32-year-old female with complex medical history as documented presents to this emergency room with her father for evaluation of hypocalcemia. Patient apparently had outpatient labs that showed a calcium 5.3 with normal albumin level. Patient was
referred to come to the emergency room. While patient was in the waiting room she had one of her myoclonic episodes/seizures. She is drowsy but oriented on my initial assessment, denies any specific new complaints.
Past History
Past History
ED Past Medical History: Asthma, GERD, Hypercholesterolemia, Psychiatric (Anxiety), Other (Mast Cell activation Syndrome, neurocardiogenic syncope, Deana Danlos, narcolepsy, dystonia, sleep apnea, chronic vertigo, chronic daily headache, raynauds,
RLS, IBS) and Other (Osteoporosis)
ED Past Surgical History: Tonsilectomy and Urological (kidney biopsy)
Social History
Tobacco: Non-smoker
Alcohol: None
Drug: None
Personal: Single
Living: with family
Employment: Employed
Family History
Family History: Other (Noncontributory); Negative Sudden
Review of Systems
Review of Systems
All Other Systems: ROS reviewed and negative except as documented in HPI and ROS
Constitutional: Denies fever
Respiratory: Denies trouble breathing
Cardiac: Denies chest pain
ABD/GI: Denies abdominal pain
: Denies flank pain
Neurological: Denies headache
Phy Exam
Physical Exam
Physical Exam:
General: Lying in bed drowsy but arousable, following commands and answering questions appropriately, oriented x 3
Head: Normocephalic, atraumatic
Eyes: Conjunctiva normal, pupils 4 mm and reactive to light bilaterally
Throat: Airway intact, handling secretions
Neck: Trachea midline, supple without meningismus
Lungs: Clear to auscultation bilaterally, no wheezing, rales, rhonchi
Heart: Tachycardia with regular rhythm, no murmurs, gallops, or rubs
Abd: Soft, non distended, nontender
Extremities: Warm and well-perfused
Scores
Heart Failure Risk
Heart Failure Risk Score: Not Applicable
Heart Score for Chest Pain Patients
STEMI patient?: Not applicable
Withdrawal Assessment of Alcohol
Withdrawal Assessment Completed?: Not applicable
Course
Orders/Labs/Results
Orders:
Orders
07/16/23 19:29
Electrocardiogram (*1) Urgent
Reason for Study: Other
Other Reason for Exam: seizure
07/16/23 19:30
EKG- Treatment ONCE
Test Result ONCE
07/16/23 19:38
CR Chest Portable - 1 View Urgent
Comment:
Reason For Exam: PICC
Reason Study Needs to be Portable: Unable to Transport
07/16/23 19:43
Diphenhydramine [Benadryl] 50 mg .ROUTE .STK-MED ONE
07/16/23 19:44
Lorazepam [Ativan] 2 mg .ROUTE .STK-MED ONE
07/16/23 19:47
Diphenhydramine [Benadryl] 25 mg IV NOW STA
Lorazepam [Ativan] 2 mg IV NOW STA
07/16/23 19:58
Ondansetron Injectable [Zofran] 4 mg .ROUTE .STK-MED ONE
07/16/23 20:00
Ondansetron Injectable [Zofran] 4 mg IV NOW STA
07/16/23 20:42
Electrocardiogram (*1) Urgent
Reason for Study: QTc Monitoring
EKG- Treatment ONCE
07/16/23 20:46
Complete Blood Count/With Diff Urgent
Ionized Calcium Urgent
Vitamin D, 25-OH Urgent
07/16/23 20:48
HYDROmorphone [Dilaudid] 8 mg PO NOW STA
07/16/23 20:52
Alteplase [Cathflo/Activase] 6 mg IV NOW STA
07/16/23 21:21
Diphenhydramine [Benadryl] 25 mg IV NOW STA
Lorazepam [Ativan] 2 mg IV NOW STA
07/16/23 21:37
Calcium Gluconate 1 gram/100mL [Calcium Gluconate] 1 gram in 100 ml IV ONCE
07/16/23 23:22
Comprehensive Metabolic Panel Urgent
HCG, Serum Qualitative Screen Urgent
Abnormal Lab Results
07/16/23 07/16/23 07/16/23
19:31 20:46 23:22
RBC 3.30 L 10^6/uL
(4.20-5.40)
Hct 33.6 L %
(37.0-47.0)
MCV 101.8 H fL
(81.0-99.0)
MCH 37.6 H pg
(27.0-31.0)
RDW 17.5 H %
(11.5-14.5)
Abs Immat Gran (auto) 0.8 H 10^3/uL
(0-0.05)
Absolute Monos (auto) 0.8 H 10^3/uL
(0.1-0.6)
Immature Gran % 9.5 H %
(0-0.5)
Creatinine 0.3 L mg/dL
(0.6-1.0)
Glucose 129 H mg/dl
(70-99)
Ionized Calcium 1.06 L mMOL/L
(1.15-1.33)
ALT 53 H U/L
(0-35)
Total Protein 6.2 L g/dl
(6.3-8.2)
Albumin 3.4 L g/dl
(3.5-5.0)
Vitamin D 25-Hydroxy 26.4 L ng/mL
(30-80)
POC Glucose 144 H mg/dl
(70-99)
07/16/23 20:46
07/16/23 23:22
Vital Signs
Initial and Last Documented VS:
Initial Vital Signs
Temp Pulse Resp BP Pulse Ox
36.8 C 134 16 124/97 94
07/16/23 17:36 07/16/23 17:36 07/16/23 17:36 07/16/23 17:36 07/16/23 17:36
Last Documented Vital Signs
Temp Pulse Resp BP Pulse Ox
36.8 C 114 12 126/77 98
07/16/23 17:36 07/16/23 23:45 07/16/23 23:45 07/16/23 23:30 07/16/23 23:45
MDM/Problems Addressed
Differential Diagnosis Includes:
Hypocalcemia
MDM/Problems Addressed:
32-year-old female with complex medical history presents to the emergency room referred by her outpatient loan approver/oncologist (Dr. Villanueva at [place]) for hypocalcemia. Patient had one of her myoclonic episodes/seizures in the waiting room back
to her room was treated with Ativan, Benadryl per her reported treatment plan. Plan to confirm PICC line with chest x-ray. Will send labs including a CBC and a CMP, ionized calcium, vitamin D level, hCG. Check an EKG. Will monitor closely
reassess after the above.
Labs reviewed: CBC unremarkable, CMP shows normal calcium 9.3. Ionized calcium marginally low at 1.06. Vitamin D level marginally low. Given 1 g of calcium gluconate. Discussed with nephrology no further inpatient treatment indicated. Will
discharge. She will follow-up with PCP at her heme-onc specialist as an outpatient.
Chronic conditions affecting care:
Mast cell activation syndrome
Acute Exacerbation and/or Progression of Chronic Illness:
Acute exacerbation of her myoclonic episodes treated with Ativan/Benadryl which are her self-reported rescue medications
*Radiology
Radiology exam reviewed: preliminary read by ED provider and radiology read reviewed
*Pulse Oximetry
Patient hypoxic: no
*EKG
Interpreted by ED Provider?: Yes
Heart Rate: 143
Rate: tachycardiac
Rhythm: sinus
[place]: normal axis
Interval: normal interval
QRS Pattern: normal QRS
Ischemia: other (Significant baseline artifacts limits interpretation)
*Critical Care Note
Total Time (30-74mins, 75-104mins- exclusive of procedures): Not Applicable
Data Reviewed
Review of Other/Old Records Reveals: Labs and Records
Source: patient, records and family (Father)
Patient Management
Discussion with other providers: [employer]airer (Discussed with nephrology)
ED Attending Note
-
Portions of this chart may have been created with voice recognition software.� Occasional wrong word or��sound alike� substitutions may have occurred due to the inherent limitations of voice recognition software.
Discharge Plan
Departure
Patient Disposition: Home (Routine Discharge)
Date of Disposition: 07/17/23
Time of Disposition: 00:07
Patient with high blood pressure during this ER visit?: No
Discharge Problem:
Hypocalcemia, Low serum vitamin D
Instructions: Calcium and Vitamin D
Prescriptions:
No Action
propranolol 10 MG tablet
10 mg feeding tube TID@0600,1400,2200
cetirizine 10 MG tablet
10 mg feeding tube BID@1800,2200
ketotifen fumarate [Zaditor] 1 DROP drops
1 drp BOTH EYES TID
Flonase Sensimist 5.9 ML spray,suspension
2 spray intranasal DAILY@1000
rabeprazole [AcipHex] 20 MG tablet,delayed release (DR/EC)
20 mg PO BID@0930,1730
diphenhydramine HCl 50 MG/ML solution
25 mg IV Q3HPRN PRN (Reason: mcas reaction/anaphylaxis/dystonia)
budesonide 0.5 MG/2 ML suspension for nebulization
0.5 mg inhalation R BID@999,1999
etonogestrel-ethinyl estradiol [NuvaRing] 1 VAG.RING ring
1 vag.ring VAG MONTHLY
Rx Instructions:
last changed 06/20/23
famotidine (PF) 20 MG/2 ML solution
40 mg IV Q12H@1000,2200
diphenhydramine HCl 50 MG/ML solution
0 mg IV .CONTINUOUS
Patient Comments:
Per patient she has a benadryl pump 15mg/hr continuously
Rx Instructions:
370ML bag daily, 15MG/HR CONTINUOUS
ferrous sulfate [FeroSul] 325 MG tablet
325 mg PO HS
Nurtec ODT 75 MG tablet,disintegrating
75 mg PO DAILYPRN PRN (Reason: migraine)
thiamine HCl (vitamin B1) 100 mg Tablet
100 mg PO DAILY@1000
acetaminophen 650 mg tablet extended release
1,300 mg PO BID@1000,1800
baclofen 10 mg Tablet
10 mg PO TID@0600,1400,2200
lorazepam 2 mg/mL concentrate
2 mg sublingual Q6H PRN (Reason: dystonia)
Patient Comments:
06/11/2023: last filled 06/06/23, 60ml for 12 days from [id number]
simethicone 80 mg Tablet,Chewable
80 mg PO DAILY
insulin lispro 100 unit/mL insulin pen
0 - 5 sliding scale dose SC AC
Rx Instructions:
Sliding Scale: 70-140= 0, 141-200= 1; 201-250= 2; 251-300= 3; 301-350= 4; >351= 5
imatinib [Gleevec] 100 mg Tablet
200 mg PO DAILY@1400
cholecalciferol (vitamin D3) 50 mcg (2,000 unit) Tablet
50 mcg PO DAILY@1000
fexofenadine 180 mg Tablet
180 mg PO BID@1000,1400
ondansetron 4 mg Tablet,Disintegrating
4 mg PO Q8HPRN PRN (Reason: mild nausea)
carbidopa-levodopa [Sinemet] 25-100 mg Tablet
2 tab feeding tube BID@1400,1800
Rx Instructions:
2pm, 6pm
carbidopa-levodopa [Sinemet] 25-100 mg Tablet
1.5 tab feeding tube BID@0600,1000
Rx Instructions:
6am, 10am
ascorbic acid (vitamin C) [Vitamin C] 1,000 mg Tablet
1,200 mg PO DAILY
epinephrine 0.3 mg/0.3 mL auto-injector
0.3 mg IM PRN PRN (Reason: anaphylaxis)
ondansetron HCl (PF) 4 mg/2 mL Solution
4 mg IV Q8H PRN (Reason: severe nausea/vomiting)
Salt Stick
2 cap feeding tube PRN PRN (Reason: POTS)
Rx Instructions:
500mg Sodium and 100mg Potassium
Nss
1,000 ml IV DAILY
Nss
1,000 ml IV DAILYPRN PRN (Reason: SYMPTOMS)
Rx Instructions:
UP TO 3 TIMES A WEEK.
albuterol sulfate 2.5 mg /3 mL (0.083 %) solution for nebulization
2.5 mg inhalation R Q6HPRN PRN (Reason: anaphylaxis)
hydromorphone 8 mg tablet
8 mg PO Q3H PRN (Reason: severe pain)
Patient Comments:
06/11/2023: last filled 05/16/23, 136 tabs for 34 days from [facility]
lorazepam 2 mg/mL concentrate
1 mg sublingual QID@00,06,12,18
simethicone 80 mg Tablet,Chewable
80 mg PO HS PRN (Reason: gas)
enoxaparin 100 mg/mL syringe
90 mg SC BID@1000,2200
buprenorphine HCl 2 mg tablet, sublingual
2 mg SUBLINGUAL QID@00,06,12,18
Patient Comments:
06/11/2023: last filled 05/16/23, 120 tabs for 30 days from [id number]
insulin glargine [Lantus Solostar U-100 Insulin] 100 unit/mL (3 mL) insulin pen
15 unit SC DAILY
calcium citrate-vitamin D3 200 mg-6.25 mcg (250 unit) Tablet
2 tab PO BID@1000,1800
Patient Comments:
06/11/2023: 400mg Calcium, 12.5mcg Vitamin D
methylprednisolone sodium succ 125 mg Recon Soln
60 mg IV DAILYPRN PRN (Reason: ANAPHYLAXIS)
methylprednisolone sodium succ 40 mg/mL Recon Soln
40 mg IV DAILY
Rx Instructions:
STARTED 06/20/23 AT 1000
insulin lispro [Humalog KwikPen Insulin] 100 unit/mL Insulin Pen
5 unit SC AC
Rx Instructions:
06/23/23- pt to received while receiving IV steroids
aprepitant [Emend] 80 mg Capsule
80 mg PO DAILY
teriparatide 20 mcg/dose (600mcg/2.4mL) Pen Injector
20 mcg SC DAILY
hydroxyurea 500 mg Capsule
500 mg PO BID Qty: 60 0RF
cromolyn 20 MG/ML concentrate
300 mg PO .QID-TIMES BELOW Qty: 480 0RF
methylprednisolone sodium succ 40 mg/mL Recon Soln
20 mg IV QPM
Referrals:
Ethan Villanueva MD [Non-Admitting Privileges] - Call in 1-3 days for appt
Shannan Mendoza DO [Family Provider] -
Activity Restrictions/Additional Instructions:
Thank you for visiting the Emergency Department at [facility].
1. Please schedule a follow up appointment as directed. Call first thing tomorrow morning to make an appointment.
2. If indicated, please take your medications as instructed and indicated on discharge paperwork.
3. If any of your symptoms do not improve, or persist, or become more severe within 6-12 hours, please return to the emergency department for further care.
4. Please return to the emergency department if you develop a headache, neck pain/stiffness, fever greater than 100.4F, chest pain, shortness of breath, persistent nausea, vomiting, slurred speech, difficulty walking, numbness/tingling, weakness,
signs of infection or any other symptoms that are worrisome to you.
Please call [phone] if you have any questions.
Interventions
Interventions:
*Risk Screen - Suicide Last Done: 07/16/23 17:36
*General Assessment Last Done: 07/16/23 19:31
*Neglect/Abuse Screening Last Done: 07/16/23 17:36
*ED COVID-19 Vaccine History Last Done: 07/16/23 19:31
[2023-07-16 20:53] LABS: % Basophils 0.6 % (0-2); % Eosinophils 0.1 % (0-6); % Immature Granulocytes 9.5 % (0-0.5); % Lymphocytes 30.7 % (20.5-51.1); % Monocytes 9.1 % (1.7-9.3); Absolute Basophils 0.1 10^3/uL (0-0.2); Absolute Immature Granulocytes 0.8 10^3/uL (0-0.05); Absolute Lymphocytes 2.7 10^3/uL (1.2-3.4); Absolute Monocytes 0.8 10^3/uL (0.1-0.6); Absolute Neutrophils 4.3 10^3/uL (1.4-6.5); Hematocrit 33.6 % (37.0-47.0); Hemoglobin 12.4 g/dL (12.0-16.0); Mean Corp Hgb Conc. 36.9 g/dL (33.0-37.0); Mean Corpuscular Hgb 37.6 pg (27.0-31.0); Mean Corpuscular Volume 101.8 fL (81.0-99.0); Mean Platelet Volume 9.4 fL (7.4-10.4); Nucleated Red Blood Cells % 1.5 %; Platelet Count 305 10^3/uL (130-400); Red Cell Dist. Width 17.5 % (11.5-14.5); White Blood Cell Count 8.6 10^3/uL (4.8-10.8)
[2023-07-16 20:54] LABS: Ionized Calcium 1.06 mMOL/L (1.15-1.33)
[2023-07-16] MEDS: DILAUDID 8 MG PO (20:54)
[2023-07-16 21:32] LABS: Vitamin D, 25-OH*** 26.4 ng/mL (30-80)
[2023-07-16] MEDS: CATHFLO/ACTIVASE 6 MG IV (22:10)
--- NOTE | 2023-07-16 22:40 | VATNOTE ---
Called to ED to assess Rt. TL Picc. Continuous Benadryl infusing, lumens flushed easily, no blood return x 3 lumens. Labs drawn peripherally. Drsg. intact, changed yesterday per pt. Cath Adam instilled red and white lumens per order. VAT to follow.
[2023-07-16] MEDS: CALCIUM GLUCONATE 100 IV (22:44)
[2023-07-16 23:45] LABS: HCG, Serum Qualitative Screen Negative
--- NOTE | 2023-07-16 23:46 | VATNOTE ---
CATHFLO ASPIRATED FROM BOTH RED AND WHITE LUMENS OF RUE PICC AND EXCELLENT BR OBTAINED. BOTH LUMENS FLUSHED WITH 10CC NSS. CAPS HAD BEEN CHANGED EARLIER IN CARE OF PT.PT AND PCN AWARE OF OUTCOME.
[2023-07-16 23:54] LABS: ALT (SGPT) 53 U/L (0-35); AST (SGOT) 27 U/L (14-36); Albumin 3.4 g/dl (3.5-5.0); Alkaline Phosphatase 76 U/L (38-126); Blood Urea Nitrogen 14 mg/dl (7-17); Calcium 9.3 mg/dl (8.4-10.2); Carbon Dioxide 22 mmol/L (22-30); Chloride 101 mmol/L (98-107); Estimated Creatinine Clearance > 125 ml/min; Glucose 129 mg/dl (70-99); Potassium 3.7 mmol/L (3.5-5.1); Sodium 135 mmol/L (135-145); Total Bilirubin 0.5 mg/dl (0.2-1.3); Total Protein 6.2 g/dl (6.3-8.2); eGFR > 60.00
[2023-07-17] VITALS: BP 126/82
[2023-07-19 11:25] LABS: Intact PTH 21.9 pg/ml (13.6-85.8)
== END 2023-07-17 01:09 | disposition home or self-care (01) ==
LOC: EMR 17:25
PROVIDERS: EMERGENCY PHYSICIAN Emergency Medicine; FAMILY PHYSICIAN Student in an Organized Health Care Education/Training Program
DX: E83.51 Hypocalcemia (principal); G25.3 Myoclonus; D89.40 Mast cell activation, unspecified
CPT/HCPCS: 99285; 96374; 96375 ×3; 96376 ×3; 71045; 80053; 82306; 82330; 82962; 83970; 84703; 85025; 93005; J2997

== ENCOUNTER 2023-08-30 15:20 | Inpatient (IN) | payer OTHER, SELFPAY ==
[2023-08-30] VITALS (11 sets, daily range): BP systolic 127–160; BP diastolic 79–112; BMI 36.5
--- NOTE | 2023-08-30 11:20 | ED.GENMED ---
History of Present Illness
<ASHLEY Ga - Last Filed: 09/02/23 03:00>
General
Chief Complaint: Fever
Source: patient
Exam Limitations: none
Time Seen by Provider: 08/30/23 11:07
Nursing documentation reviewed up to this point in time: agreed with
Travel History
Have you had any contact with someone who has COVID-19?: No
Do you have any symptoms of coronavirus? Fever > 100 degrees, chills, cough, shortness of breath, sore throat, loss of taste or smell, muscle aches, or headache?: No
History of Present Illness
History of Present Illness:
Patient is a 33-year-old female with past medical history of mast cell activation syndrome dystonic reaction POTS steroid-induced diabetes chronic pain due to to osteoporosis from steroids with opiate dependence ,migraines reflux benzodiazepine
dependence Deana Danlos syndrome and other medical history presents to the ER for evaluation. Patient is followed at [place] by Dr. Villanueva materials scheduler oncologist for her mast cell activation syndrome. She reports she has had a fever since
Friday which has been getting worse. She did have a UTI I am was treated with Macrobid for 10 days. She is on Tylenol twice a day prescribed by palliative care for pain. She did take a total of 650 mg x 2 of Tylenol prior to arrival she is on
continuous Benadryl infusion. She does have PICC line. She is also on continuous normal saline infusions.
Past History
<ASHLEY Ga - Last Filed: 09/02/23 03:00>
Past History
ED Past Medical History: Asthma, GERD, Hypercholesterolemia, Psychiatric (Anxiety), Other (Mast Cell activation Syndrome, neurocardiogenic syncope, Deana Danlos, narcolepsy, dystonia, sleep apnea, chronic vertigo, chronic daily headache, raynauds,
RLS, IBS) and Other (Osteoporosis)
ED Past Surgical History: Tonsilectomy and Urological (kidney biopsy)
Social History
Tobacco: Non-smoker
Alcohol: None
Drug: None
Personal: Single
Living: with family
Employment: Employed
Family History
Family History: Other (Noncontributory); Negative Sudden
Review of Systems
<ASHLEY Ga - Last Filed: 09/02/23 03:00>
Review of Systems
Allergies reviewed?: Yes
All Other Systems: ROS reviewed and negative except as documented in HPI and ROS
Constitutional: Reports fever
EENT: Reports no symptoms
Respiratory: Reports no symptoms
Cardiac: Reports no symptoms
ABD/GI: Reports no symptoms
: Reports no symptoms
Musculoskeletal: Reports no symptoms
Skin: Reports no symptoms
Neurological: Reports no symptoms
Psychiatric: Reports no symptoms
Phy Exam
<ASHLEY Ga - Last Filed: 09/02/23 03:00>
General Physical Exam
General Presentation: no apparent distress
General age: appears older than age
General Skin: warm and dry
General Habitus: obese
Cardiovascular Exam
Cardiovascular Exam: tachycardia
Pulmonary Exam
Pulmonary Exam: lungs clear and no respiratory distress
Neurological Exam
Neurological Exam: alert and oriented x3
Musculoskeletal Exam
Musculoskeletal Exam: full ROM
Skin Exam
Skin Exam: normal color and warm/dry
Psychiatric Exam
Psychiatric Exam: normal mood/affect
Course
<ASHLEY Ga - Last Filed: 09/02/23 03:00>
Orders/Labs/Results
Orders:
Orders
08/30/23 11:05
Electrocardiogram (*1) Urgent
Reason for Study: Tachycardia
08/30/23 11:06
EKG- Treatment ONCE
08/30/23 11:11
Complete Blood Count/With Diff Urgent
Comprehensive Metabolic Panel Urgent
Lactic Acid Urgent
Influenza A+B Rapid Molecular Urgent
EMILIANO Source: Nasal Swab
Specimen Description:
08/30/23 11:12
COVID-19 Antigen Urgent
Source: Nasal Swab
08/30/23 11:17
Portable Chest Xray [CR Chest Portable - 1 View] Urgent
Comment:
Reason For Exam: PICC line confirmation, shortness of breath
Reason Study Needs to be Portable: Patient Unstable
08/30/23 11:54
HYDROmorphone [Dilaudid] 1 mg IV NOW STA
08/30/23 11:55
Straight cath- Treatment ONCE
0.9% Sodium Chloride 1000 ml [Nss] 1,900 ml IV NOW STA
08/30/23 13:05
Lorazepam [Ativan] 2 mg .ROUTE .STK-MED ONE
08/30/23 13:06
Lorazepam [Ativan] 2 mg IV NOW STA
08/30/23 13:07
Lorazepam [Ativan] 2 mg .ROUTE .STK-MED ONE
08/30/23 13:08
Lorazepam [Ativan] 2 mg IV NOW STA
08/30/23 13:09
Lorazepam [Ativan] 2 mg .ROUTE .STK-MED ONE
08/30/23 13:28
Ondansetron Injectable [Zofran] 4 mg IV NOW STA
08/30/23 13:35
Acetaminophen [Tylenol] 650 mg PO NOW STA
08/30/23 14:00
UA Reflex to Culture [Urinalysis Reflex To Culture] Urgent
Date Specimen was Collected: 08/30/23
Time Specimen was Collected: 13:59
Urine Microscopic Reflex Cult Urgent
08/30/23 14:53
Add On- LAB Urgent
Tests Added?: troponin
Admit/Transfer Patient As Directed
Co-Sign Provider:
Level of Care: Inpatient admission
Assign to:: Telemetry
Physician / Group: kiran banda
Diagnosis: symtpomatic uti, poss seizure, hx mast cell
Reason for Telemetry: Arrhythmia
Date to Stop Telemetry: 09/02/23
Time to Stop Telemetry: 11:00
Reason for Hospitalization: symtpomatic uti, poss seizure, hx mast cell
Expected length of stay greater than two midnights?: Yes
ELOS- Estimated Length of Stay in days: 4
I certify the patient meets the requirements for IP care: Yes
Code Status As Directed
Resuscitation Status: Do not resuscitate
Reached after discussion with pt or family/Healthcare POA: Yes
Based on pt advanced directive or healthcare POA form: Yes
Decision communicated with: per pt
DNR Bracelet Application ONCE
08/30/23 Dinner
1800 calorie (15 carb) Diabetic
At Your Request: Full Participation
Does patient need a safe tray?: No
Carbidopa/Levodopa [Sinemet 25-100] 2 tablet TUBE BID@1400,1800
Diphenhydramine [Benadryl] 25 mg IV ONCE PRN
Lorazepam [Ativan] 2 mg IV Q6HPRN PRN
08/30/23 15:03
INFECTIOUS DISEASE CONSULT Routine
Consulting Provider: Mary Grace Hill
Was physician already notified: Yes
Reason for consult: fever recent uti
08/30/23 15:08
HEMATOLOGY CONSULT Routine
Consulting Provider: Wil Benson
Was physician already notified: Yes
Reason for consult: hx mast cell activation
08/30/23 15:10
NEUROLOGY CONSULT Routine
Consulting Provider: Miller Sarmiento
Was physician already notified: Yes
Reason for consult: seizure
08/30/23 16:51
0.9% Sodium Chloride 1000 ml [Nss] 1,000 ml IV 100 mls/hr
Acetaminophen [Tylenol] 650 mg PO Q4HPRN PRN
Dextrose 50%-Water [Dextrose 50% Syringe] 12.5 grams IV [id number] PRN
Glucagon [GlucaGen] 1 mg IM PRN PRN
Insulin Aspart Corrective Mod [Novolog Flexpen-Moderate Resistance] See Protocol SC AC
08/30/23 16:51
VTE Contraindication Routine
VTE Mechanical Device Contraindication: Medical Contraindication
Pharmocologic Contraindication: Medical Contraindication
Comment: pt on lovenox
Activity As Directed
Activity Level: With Assistance
Bedside Glucose Monitoring As Directed
Frequency: AC&HS
Comment: Change to q6h if pt on TPN, tube feeding or not eating
Intake/ Output As Directed
Frequency: Per unit guidelines
Vital Signs As Directed
Frequency: Per unit guidelines
Pulse Ox/spot Check [RESP] Routine
Quantity: 1
Ot Eval And Treat Routine
Pt Eval And Treat Routine
Activity Level: With Assistance
08/30/23 18:00
CefTRIAXone [Rocephin] 1,000 mg IV Q24H
Lorazepam [Ativan] 1 mg PO Q6
08/31/23 05:10
Complete Blood Count/With Diff IN AM
Comprehensive Metabolic Panel IN AM
Glycohemoglobin (HgbA1c) IN AM
08/31/23 06:00
Carbidopa/Levodopa [Sinemet 25-100] 1.5 tablet TUBE BID@0600,1000
08/31/23 08:00
US Renal With Bladder Urgent
Reason For Exam: uti /fever
09/01/23 05:05
Complete Blood Count/With Diff IN AM
Comprehensive Metabolic Panel IN AM
09/02/23 06:00
Complete Blood Count/With Diff IN AM
Comprehensive Metabolic Panel IN AM
09/02/23 11:00
DC Protocol for Telemetry ONCE
09/03/23 06:00
Complete Blood Count/With Diff IN AM
Comprehensive Metabolic Panel IN AM
Abnormal Lab Results
08/30/23 08/30/23
11:11 14:00
RBC 3.29 L 10^6/uL
(4.20-5.40)
Hgb 11.8 L g/dL
(12.0-16.0)
Hct 36.0 L %
(37.0-47.0)
MCV 109.4 H fL
(81.0-99.0)
MCH 35.9 H pg
(27.0-31.0)
MCHC 32.8 L g/dL
(33.0-37.0)
RDW 19.7 H %
(11.5-14.5)
Abs Immat Gran (auto) 0.3 H 10^3/uL
(0-0.05)
Immature Gran % 4.3 H %
(0-0.5)
Sodium 132 L mmol/L
(135-145)
Creatinine 0.4 L mg/dL
(0.6-1.0)
Glucose 178 H mg/dl
(70-99)
Lactic Acid 2.6 H mmol/L
(0.7-2.0)
Ur Occult Blood Reflex 3+ A
(Negative)
Urine RBC 11-15 A /HPF
(0-2)
Urine Bacteria (Reflex) Few A
(Negative)
08/30/23 11:11
08/30/23 11:11
Vital Signs
Initial and Last Documented VS:
Initial Vital Signs
Pulse Ox
96
08/30/23 10:58
Last Documented Vital Signs
Temp Pulse Resp BP Pulse Ox
97.6 F 101 22 99/69 96
09/01/23 23:35 09/01/23 23:35 09/01/23 23:35 09/01/23 23:35 09/01/23 23:35
Paradichlorobenzene Machine Operator consulted with Physician
Paradichlorobenzene Machine Operator consulted with physician?: Yes
Name of Physician Consulted: tacos
<Christelle Chiang MD - Last Filed: 08/30/23 13:22>
Orders/Labs/Results
Orders:
Orders
08/30/23 11:05
Electrocardiogram (*1) Urgent
Reason for Study: Tachycardia
08/30/23 11:06
EKG- Treatment ONCE
08/30/23 11:11
Complete Blood Count/With Diff Urgent
Comprehensive Metabolic Panel Urgent
Lactic Acid Urgent
Influenza A+B Rapid Molecular Urgent
EMILIANO Source: Nasal Swab
Specimen Description:
08/30/23 11:12
COVID-19 Antigen Urgent
Source: Nasal Swab
08/30/23 11:17
Portable Chest Xray [CR Chest Portable - 1 View] Urgent
Comment:
Reason For Exam: PICC line confirmation, shortness of breath
Reason Study Needs to be Portable: Patient Unstable
08/30/23 11:54
HYDROmorphone [Dilaudid] 1 mg IV NOW STA
08/30/23 11:55
Straight cath- Treatment ONCE
0.9% Sodium Chloride 1000 ml [Nss] 1,900 ml IV NOW STA
08/30/23 13:05
Lorazepam [Ativan] 2 mg .ROUTE .STK-MED ONE
08/30/23 13:06
Lorazepam [Ativan] 2 mg IV NOW STA
08/30/23 13:07
Lorazepam [Ativan] 2 mg .ROUTE .STK-MED ONE
08/30/23 13:08
Lorazepam [Ativan] 2 mg IV NOW STA
08/30/23 13:09
Lorazepam [Ativan] 2 mg .ROUTE .STK-MED ONE
08/30/23 13:28
Ondansetron Injectable [Zofran] 4 mg IV NOW STA
08/30/23 13:35
Acetaminophen [Tylenol] 650 mg PO NOW STA
08/30/23 14:00
UA Reflex to Culture [Urinalysis Reflex To Culture] Urgent
Date Specimen was Collected: 08/30/23
Time Specimen was Collected: 13:59
Urine Microscopic Reflex Cult Urgent
08/30/23 14:53
Add On- LAB Urgent
Tests Added?: troponin
Admit/Transfer Patient As Directed
Co-Sign Provider:
Level of Care: Inpatient admission
Assign to:: Telemetry
Physician / Group: kiran banda
Diagnosis: symtpomatic uti, poss seizure, hx mast cell
Reason for Telemetry: Arrhythmia
Date to Stop Telemetry: 09/02/23
Time to Stop Telemetry: 11:00
Reason for Hospitalization: symtpomatic uti, poss seizure, hx mast cell
Expected length of stay greater than two midnights?: Yes
ELOS- Estimated Length of Stay in days: 4
I certify the patient meets the requirements for IP care: Yes
Code Status As Directed
Resuscitation Status: Do not resuscitate
Reached after discussion with pt or family/Healthcare POA: Yes
Based on pt advanced directive or healthcare POA form: Yes
Decision communicated with: per pt
DNR Bracelet Application ONCE
08/30/23 Dinner
1800 calorie (15 carb) Diabetic
At Your Request: Full Participation
Does patient need a safe tray?: No
Carbidopa/Levodopa [Sinemet 25-100] 2 tablet TUBE BID@1400,1800
Diphenhydramine [Benadryl] 25 mg IV ONCE PRN
Lorazepam [Ativan] 2 mg IV Q6HPRN PRN
08/30/23 15:03
INFECTIOUS DISEASE CONSULT Routine
Consulting Provider: Mary Grace Hill
Was physician already notified: Yes
Reason for consult: fever recent uti
08/30/23 15:08
HEMATOLOGY CONSULT Routine
Consulting Provider: Wil Benson
Was physician already notified: Yes
Reason for consult: hx mast cell activation
08/30/23 15:10
NEUROLOGY CONSULT Routine
Consulting Provider: Miller Sarmiento
Was physician already notified: Yes
Reason for consult: seizure
08/30/23 16:51
0.9% Sodium Chloride 1000 ml [Nss] 1,000 ml IV 100 mls/hr
Acetaminophen [Tylenol] 650 mg PO Q4HPRN PRN
Dextrose 50%-Water [Dextrose 50% Syringe] 12.5 grams IV [id number] PRN
Glucagon [GlucaGen] 1 mg IM PRN PRN
Insulin Aspart Corrective Mod [Novolog Flexpen-Moderate Resistance] See Protocol SC AC
08/30/23 16:51
VTE Contraindication Routine
VTE Mechanical Device Contraindication: Medical Contraindication
Pharmocologic Contraindication: Medical Contraindication
Comment: pt on lovenox
Activity As Directed
Activity Level: With Assistance
Bedside Glucose Monitoring As Directed
Frequency: AC&HS
Comment: Change to q6h if pt on TPN, tube feeding or not eating
Intake/ Output As Directed
Frequency: Per unit guidelines
Vital Signs As Directed
Frequency: Per unit guidelines
Pulse Ox/spot Check [RESP] Routine
Quantity: 1
Ot Eval And Treat Routine
Pt Eval And Treat Routine
Activity Level: With Assistance
08/30/23 18:00
CefTRIAXone [Rocephin] 1,000 mg IV Q24H
Lorazepam [Ativan] 1 mg PO Q6
08/31/23 05:10
Complete Blood Count/With Diff IN AM
Comprehensive Metabolic Panel IN AM
Glycohemoglobin (HgbA1c) IN AM
08/31/23 06:00
Carbidopa/Levodopa [Sinemet 25-100] 1.5 tablet TUBE BID@0600,1000
08/31/23 08:00
US Renal With Bladder Urgent
Reason For Exam: uti /fever
09/01/23 05:05
Complete Blood Count/With Diff IN AM
Comprehensive Metabolic Panel IN AM
09/02/23 06:00
Complete Blood Count/With Diff IN AM
Comprehensive Metabolic Panel IN AM
09/02/23 11:00
DC Protocol for Telemetry ONCE
09/03/23 06:00
Complete Blood Count/With Diff IN AM
Comprehensive Metabolic Panel IN AM
Abnormal Lab Results
08/30/23 08/30/23
11:11 14:00
RBC 3.29 L 10^6/uL
(4.20-5.40)
Hgb 11.8 L g/dL
(12.0-16.0)
Hct 36.0 L %
(37.0-47.0)
MCV 109.4 H fL
(81.0-99.0)
MCH 35.9 H pg
(27.0-31.0)
MCHC 32.8 L g/dL
(33.0-37.0)
RDW 19.7 H %
(11.5-14.5)
Abs Immat Gran (auto) 0.3 H 10^3/uL
(0-0.05)
Immature Gran % 4.3 H %
(0-0.5)
Sodium 132 L mmol/L
(135-145)
Creatinine 0.4 L mg/dL
(0.6-1.0)
Glucose 178 H mg/dl
(70-99)
Lactic Acid 2.6 H mmol/L
(0.7-2.0)
Ur Occult Blood Reflex 3+ A
(Negative)
Urine RBC 11-15 A /HPF
(0-2)
Urine Bacteria (Reflex) Few A
(Negative)
08/30/23 11:11
08/30/23 11:11
Vital Signs
Initial and Last Documented VS:
Initial Vital Signs
Pulse Ox
96
08/30/23 10:58
Last Documented Vital Signs
Temp Pulse Resp BP Pulse Ox
97.6 F 101 22 99/69 96
09/01/23 23:35 09/01/23 23:35 09/01/23 23:35 09/01/23 23:35 09/01/23 23:35
<ASHLEY Ga - Last Filed: 09/02/23 03:00>
MDM/Problems Addressed
Differential Diagnosis Includes:
Not limited to sepsis, UTI
MDM/Problems Addressed:
Patient is a 33-year-old female with significant past medical history as documented including mast cell activation syndrome on chronic infusions of Benadryl fluids presented here to the ER complaining of fever for the past several days. She was
treated for UTI on Macrobid but continues with fever. Patient presents here febrile at 103 but recently took 1300 mg of Tylenol 945 this morning.
She denies any cough she is negative for COVID flu, chest x-ray negative.
Patient's white count is 5.9 however lactic acid is elevated at 2.6. Patient's BUN is normal at 9 with a creatinine 0.4.
Patient own normal saline infusion stopped patient was given weight-based septic fluid bolus.
Patient was evaluated by ED physician and during physician's evaluation patient had a witnessed seizure lasting 7 min.
will obtain urine and plan for admission
1351:Prior cultures reviewed sensitive to cephalosporins Case discussed with ED physician IV Rocephin ordered patient mid to hospital service. Repeat temperature was 100.4 prior to getting second of Tylenol. Patient awake alert stable but
tachycardic.
Chronic conditions affecting care:
Significant past medical history including mast cell activation syndrome below POTS syndrome, dystonia
<ASHLEY Ga - Last Filed: 09/02/23 03:00>
*Radiology
Radiology exam reviewed: radiology read reviewed
*Pulse Oximetry
Patient hypoxic: no
*EKG
Interpreted by ED Provider?: Yes
Heart Rate: 148
Rate: tachycardiac
Rhythm: sinus
Ischemia: non-specific ST changes
*Critical Care Note
Total Time (30-74mins, 75-104mins- exclusive of procedures): Not Applicable
ED Attending Note
<ASHLEY Ga - Last Filed: 09/02/23 03:00>
-
Portions of this chart may have been created with voice recognition software.� Occasional wrong word or��sound alike� substitutions may have occurred due to the inherent limitations of voice recognition software.
<Christelle Chiang MD - Last Filed: 08/30/23 13:22>
ED Attending Note
Patient seen and examined by attending physician: Yes
I performed the substantive portion of visit, reviewed & personally made and approve the management plan that is documented in note by myself or PAULO.: Yes
ED Attending Note:
33 yr old female with mast cell activation syndrome, mult med problems, presents iwth fever, recent uti, Up;on my assessment, pt developed a focal sz (L extrem tonic/clonic with R eye deviation, tachycardia) for approx 7 min, relieved with ativan
2mg X2. Awoke and following commands, requesting pain meds. Clinical pciture c/w sepsis, awaiting urine as likley source, doubt encephalitis/meningitis given no photophobia, nuchal rigidity etc. chronic headache as usual.
Discharge Plan
Departure
Patient Disposition: Admit
Date of Disposition: 08/30/23
Time of Disposition: 13:52
Admit to: Med/Surg
Admit to doctor: hospitalist
Presentation/result/management discussed w/ accepting MD/DO: Hospitalist
Patient with high blood pressure during this ER visit?: Yes
Condition: Fair
Covid-19: Not Applicable
Discharge Problem:
Fever, Sepsis
Interventions
Interventions:
*Risk Screen - Suicide Last Done: 08/30/23 14:53
*General Assessment Last Done: 08/30/23 11:00
*Neglect/Abuse Screening Last Done: 08/30/23 11:00
ED- Fall Risk Assessment Last Done: 08/30/23 11:06
*ED COVID-19 Vaccine History Last Done: 08/30/23 14:53
*Nursing Disposition Last Done: 08/30/23 16:58
ED- Neurological Assessment Last Done: 08/30/23 11:06
ED-Skin Assessment Last Done: 08/30/23 11:06
Discharge Date and Time
Discharge Date/Time: 08/30/23 17:00
[2023-08-30 11:38] LABS: COVID-19 Antigen Negative (Negative)
[2023-08-30 12:10] LABS: % Basophils 0.5 % (0-2); % Eosinophils 0.2 % (0-6); % Immature Granulocytes 4.3 % (0-0.5); % Monocytes 6.7 % (1.7-9.3); % Neutrophils 67.3 % (42.2-75.2); Absolute Immature Granulocytes 0.3 10^3/uL (0-0.05); Absolute Lymphocytes 1.2 10^3/uL (1.2-3.4); Absolute Monocytes 0.4 10^3/uL (0.1-0.6); Absolute Neutrophils 3.9 10^3/uL (1.4-6.5); Hemoglobin 11.8 g/dL (12.0-16.0); Mean Corp Hgb Conc. 32.8 g/dL (33.0-37.0); Mean Corpuscular Hgb 35.9 pg (27.0-31.0); Mean Corpuscular Volume 109.4 fL (81.0-99.0); Mean Platelet Volume 9.2 fL (7.4-10.4); Nucleated Red Blood Cells % 0.3 %; Platelet Count 221 10^3/uL (130-400); Red Blood Cell Count 3.29 10^6/uL (4.20-5.40); Red Cell Dist. Width 19.7 % (11.5-14.5); White Blood Cell Count 5.9 10^3/uL (4.8-10.8)
[2023-08-30 12:22] LABS: Lactic Acid 2.6 mmol/L (0.7-2.0)
[2023-08-30 12:25] LABS: ALT (SGPT) 18 U/L (0-35); AST (SGOT) 36 U/L (14-36); Albumin 3.9 g/dl (3.5-5.0); Alkaline Phosphatase 104 U/L (38-126); Blood Urea Nitrogen 9 mg/dl (7-17); Calcium 8.8 mg/dl (8.4-10.2); Carbon Dioxide 25 mmol/L (22-30); Chloride 101 mmol/L (98-107); Estimated Creatinine Clearance > 125 ml/min; Glucose 178 mg/dl (70-99); Potassium 4.2 mmol/L (3.5-5.1); Sodium 132 mmol/L (135-145); Total Bilirubin 0.3 mg/dl (0.2-1.3); Total Protein 6.5 g/dl (6.3-8.2); eGFR > 60.00
[2023-08-30] MEDS: ATIVAN 2 MG IV ×3 (13:06→21:18)
[2023-08-30] MEDS: NSS 1900 ML IV (13:14)
[2023-08-30] MEDS: DILAUDID 1 MG IV (13:15)
--- NOTE | 2023-08-30 13:22 | EDRN ---
1304 This RN walked into pt room to start IV fluids and give IV pain meds as ordered after PICC line placement was confirmed when pt was found seizing. Pt w/ whole body shakes and nonverbal to this RN. Christelle Chiang walked into room immediately
behind this RN to assess pt.
1306 2mg of Ativan given as verbally ordered by Christelle Chiang by Jodee RN. Nonrebreather 15L applied by Christelle Chiang.
1308 Additional 2mg of Ativan given as verbally ordered by Christelle Chiang for ongoing seizure.
1310 Seizure completed. Pt awake, alert, and speaking w/ staff.
[2023-08-30] MEDS: ZOFRAN 4 MG IV ×2 (13:36→21:05)
[2023-08-30] MEDS: TYLENOL 650 MG PO (13:43)
[2023-08-30 14:10] LABS: Urine Albumin Negative (Neg - Trace); Urine Bilirubin Negative (Negative); Urine Character Clear (Clear); Urine Color Yellow; Urine Glucose Negative (Negative); Urine Ketone Negative (Negative); Urine Leukocyte Negative (Negative); Urine Nitrite Negative (Negative); Urine Occult Blood 3+ (Negative); Urine Specific Gravity 1.005 (<1.030); Urine Urobilinogen Negative (Neg - 1+); Urine pH 6.5 (5.0-9.0)
[2023-08-30 14:19] LABS: Urine Bacteria Few (Negative); Urine White Cell 0-2 /HPF (0-5)
--- NOTE | 2023-08-30 14:19 | HPS.HSE ---
Family Physician
-
Family Physician: Tari Mendoza,
Chief Complaint
-
Bilateral flank pain, urgency, incontinence fever
History of Present Illness
33-year-old female complaining of fever since Friday 5 days ago with ongoing bilateral flank pain, urgency, incontinence urine x 15 days. She reports she was diagnosed with a UTI and has been on Macrobid for the past 10 days which finished on
08/22/2023. She reports taking a total of 650 mg x 2 Tylenol prior to arrival. She is on a continuous Benadryl infusion for her chronic mast cell activation syndrome. She was noted to have fever of 103F on arrival tachycardic at 152 bpm. While in
the ER she was noted to have a witnessed [address] Chiang. She was given IV Ativan. She reports only medication she missed this morning was her buprenorphine 2 mg. He did take her Ativan 1 mg this morning she currently lives with her
mother and stepfather has 24-hour nursing care through [facility] is on palliative care with [facility] and is DNR. She denies headache, chest pain, palpitations, shortness of breath, cough, abdominal pain, vomiting, diarrhea.
Her last admission was 06/20 - 07/03/2023 for mast cell activation syndrome with flare. She follows with Dr. Lizabeth Villanueva at [facility] hematology.
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
dependence, benzodiazepine dependence.
Medical History
Past Medical History
Past Medical History: Reports Other
Additional Past Medical History:
Mast Cell Activation Syndrome-chronic IV Benadryl pump
POTS, DOPA-sensitive Dystonia
Deana-Danlos syndrome with hypermobility type,
History of DVT and PE
Steroid-Induced Diabetes Mellitus Type II
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
Chronic Pain Syndrome on chronic opiates
Chronic benzo dependency
chronic nausea/esophageal dysmotility with G-tube
GERD
Migraine Headache
Restless leg syndrome
Raynaud's phenomena
Past Surgical History: Reports Other
Additional Past Surgical History:
Chronic PICC line
Social History
Tobacco: Non-smoker
Alcohol: None
Drug: None
Personal: Single
Living: With Family (Mother and stepfather)
Employment: Disabled
Family History
Family History: Not pertinent
Allergies / Home Medications
Allergies reflects when Allergies were last updated in [facility].
Home Medications with original date entered in [facility]
Allergy/Medication List:
Allergies
Allergy/AdvReac Type Severity Reaction Status Date / Time
dog dander Allergy Unknown Verified 06/11/23 21:07
escitalopram [From Lexapro] Allergy Unknown Verified 06/11/23 21:07
gabapentin Allergy Unknown Verified 06/11/23 21:07
gluten Allergy Unknown Verified 06/11/23 21:07
grass pollen Allergy Unknown Verified 06/11/23 21:07
house dust Allergy Unknown Verified 06/11/23 21:07
ibuprofen Allergy 'not Verified 06/11/23 21:07
supposed
to take
d/t
proteinuria'
lactose Allergy Nausea / Verified 06/11/23 21:07
Vomiting
lamotrigine [From Lamictal] Allergy Unknown Verified 06/11/23 21:07
mold Allergy Unknown Verified 06/11/23 21:07
montelukast [From Singulair] Allergy Unknown Verified 06/11/23 21:07
nortriptyline Allergy Tachycardia Verified 06/11/23 21:07
peanut Allergy Anaphylaxis Verified 06/11/23 21:07
soy Allergy Unknown Verified 06/11/23 21:07
topiramate [From Topamax] Allergy Unknown Verified 06/11/23 21:07
tree and shrub pollen Allergy Unknown Verified 06/11/23 21:07
weed pollen Allergy Unknown Verified 06/11/23 21:07
Home Medications
propranolol 10 mg tablet 10 mg feeding tube TID Heart disease/condition 04/16/15
cetirizine 10 mg tablet 10 mg feeding tube BID@1700,2200 Allergies 11/03/20
budesonide 0.5 mg/2 mL suspension for nebulization 0.5 mg inhalation R BID Lung/breathing issues 09/27/21
diphenhydramine HCl 50 mg/mL injection solution 0 mg IV .CONTINUOUS Allergies 09/27/21
diphenhydramine HCl 50 mg/mL injection solution 25 mg IV Q3HPRN PRN mcas reaction/anaphylaxis/dystonia 09/27/21
famotidine (PF) 20 mg/2 mL intravenous solution 40 mg IV Q12H Gastrointestinal issue 09/27/21
rabeprazole 20 mg tablet,delayed release (AcipHex) 20 mg PO BID Gastrointestinal issue 09/27/21
ferrous sulfate 325 mg (65 mg iron) tablet (FeroSul) 325 mg PO HS Supplement 10/02/21
rimegepant 75 mg disintegrating tablet (Nurtec ODT) 75 mg PO DAILYPRN PRN migraine 10/02/21
acetaminophen 650 mg tablet,extended release 1,300 mg PO Q8H Pain 05/13/22
baclofen 10 mg tablet 10 mg feeding tube TID@0600,1400,2200 Muscle Spasms 05/13/22
imatinib 100 mg tablet (Gleevec) 200 mg PO DAILY@1400 [facility]AS 05/13/22
insulin lispro 100 unit/mL subcutaneous pen 8 unit SC AC Diabetes 05/13/22
lorazepam 2 mg/mL oral concentrate 2 mg sublingual Q6H PRN dystonia 05/13/22
thiamine HCl (vitamin B1) 100 mg tablet 100 mg feeding tube DAILY Supplement 05/13/22
fexofenadine 180 mg tablet 180 mg PO BID Allergies 06/18/22
carbidopa 25 mg-levodopa 100 mg tablet (Sinemet) 1.5 tab feeding tube BID@0600,1000 DYSTONIA 08/17/22
carbidopa 25 mg-levodopa 100 mg tablet (Sinemet) 2 tab feeding tube BID@1400,1800 DYSTONIA 08/17/22
ondansetron HCl (PF) 4 mg/2 mL injection solution 4 mg IV Q6HPRN PRN severe nausea/vomiting 02/11/23
Nss 1,000 ml IV DAILY 03/24/23
Nss 1,000 ml IV DAILYPRN PRN SYMPTOMS 03/24/23
albuterol sulfate 2.5 mg/3 mL (0.083 %) solution for nebulization 2.5 mg inhalation R Q6HPRN PRN anaphylaxis 06/11/23
buprenorphine HCl 2 mg sublingual tablet 2 mg sublingual QID Pain 06/11/23
calcium citrate 200 mg calcium-vitamin D3 6.25 mcg (250 unit) tablet 4 tab PO BID Supplement 06/11/23
enoxaparin 100 mg/mL subcutaneous syringe 90 mg SC BID Blood Clot Prevention/Tx 06/11/23
hydromorphone 8 mg tablet 8 mg PO Q3H PRN severe pain 06/11/23
insulin glargine 100 unit/mL (3 mL) subcutaneous pen (Lantus Solostar U-100 Insulin) 15 unit SC DAILY Diabetes 06/11/23
simethicone 80 mg chewable tablet 80 mg PO HS PRN gas 06/11/23
aprepitant 80 mg capsule (Emend) 80 mg PO DAILY MCAS 06/23/23
hydroxyurea 500 mg capsule 500 mg PO BID #60 caps 07/02/23
Ketotifen 1 mg PO BID 08/30/23
cholecalciferol (vitamin D3) 1,250 mcg (50,000 unit) capsule 1,250 mcg PO MO@0800 08/30/23
cromolyn 100 mg/5 mL oral concentrate 300 mg PO QID 08/30/23
etonogestrel 0.12 mg-ethinyl estradiol 0.015 mg/24 hr vaginal ring (NuvaRing) 1 vag ring vaginal Q4W 08/30/23
fluticasone propionate 50 mcg/actuation nasal spray,suspension 2 spray intranasal DAILY PRN allergies 08/30/23
insulin lispro 100 unit/mL subcutaneous pen 0 sliding scale dose SC DIRECTED 08/30/23
ketotifen fumarate 0.025 % (0.035 %) eye drops 1 drp BOTH EYES BID 08/30/23
prednisone 5 mg tablet 15 mg feeding tube BID 08/30/23
Review of Systems
-
History Source: Patient
A 12 point ROS was completed and negative except as noted: Yes
Constitutional: Reports Chills; Denies Fever
EENT: Reports Other (Chronic siegel face appearance); Denies Sore Throat or Runny Nose
Respiratory: Denies Cough or Trouble Breathing
Cardiac: Denies Chest Pain, Diaphoresis, Palpitations or Syncope
Abdomen/GI: Denies Abdominal Pain, Nausea, Vomiting or Diarrhea
: Reports Dysuria, Flank Pain (Bilateral) and Incontinence (Urinary)
Musculoskeletal: Denies Joint Pain or Edema
Skin: Denies Itching or Rash
Neurological: Denies Dizzy or Headache
Endocrine: Reports No Symptoms
Hematologic/Lymphatic: Reports No Symptoms
Psych: Reports Calm
Physical Exam
Vital Signs
Vital Signs
Temp Pulse Resp BP Pulse Ox
100.4 F H 152 25 143/92 94
08/30/23 13:38 08/30/23 11:02 08/30/23 11:02 08/30/23 11:02 08/30/23 11:06
Physical Exam
General: Fever, Chills, Morbidly Obese and Other; No Slurred Speech
HEENT: NormoCephalic, Anicteric, PERRLA, No Ptosis, Oxygen (2 L) and Other (Chronic siegel face appearance from chronic steroids)
Respiratory: Clear; No Wheezes, Rales or Rhonchi
Cardiac: S1/S2 and Tachycardia (Sinus); No Murmur, Rub, Gallop or Peripheral Edema
Breast: Deferred by me
GI: Soft, Non Tender, Non Distended, Normal Bowel Sounds and No Hepatosplenomegaly
Rectal: Deferred by Provider
Genito-urinary: Costovertebral angle tend (Bilateral flank)
Musculoskeletal: No Clubbing, No Cyanosis and No Edema
Skin: Warm and Dry; No Rash
Neuro: AO x 3, No Motor Deficits, Nonfocal/grossly intact and Cranial Nerves Intact; No DTR's Intact & Symmetrical, Slurred Speech, Facial Droop or Tremors
Psych: Calm
Laboratory Results
-
08/30/23 11:11
08/30/23 11:11
Laboratory Results
Lactic Acid 2.6 mmol/L (0.7-2.0) H 08/30/23 11:11
Total Bilirubin 0.3 mg/dl (0.2-1.3) 08/30/23 11:11
AST 36 U/L (14-36) 08/30/23 11:11
ALT 18 U/L (0-35) 08/30/23 11:11
Alkaline Phosphatase 104 U/L (38-126) 08/30/23 11:11
Impression/Plan
-
Impression/plan:
Admit to telemetry
#Bilateral flank pain poss UTI vs pyelo partial treated uti
#Recent completed course of Macrobid on 08/22/2023
COVID-negative
UA pending, temp 103> 100.4 lactic acid 2.6, HR 152, 143/92
-IV NSS 2 L bolus given in ER continue IV NSS 100 cc an hour
-IV Rocephin
- Blood cultures x2
-Consult I/d
-Check renal bladder ultrasound
--PT/OT/case management eval
-Follow CBC, CMP
CXR: No active cardiopulmonary disease. Tip of PICC line superior vena cava
#Witnessed poss seizure activity vs chronic Dystonia
#Hx chronic benzo dependent
Seizure activity witnessed by ER physician Dr. Chiang x 7 minutes required IV Ativan
-Seizure precautions
-Consult neurology- seen by Dr barnes at bedside
#Abnormal EKG
EKG sinus tachycardia 148 bpm, QTc 420 MS with T wave inversion anterior leads
Will follow daily EKG ,monitor troponin
#Chronic PICC line
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
#Mast Cell Activation Syndrome
#DOPA-Responsive Dystonia with Acute Flare
-follows with Dr. Lizabeth Villanueva at [facility] hematology.
- Continue Ativan / Benadryl (pump) 15 mg IV per hour was prior 13 mg
�-cont Gleevac 300 mg at 1400 was increased from 200 mg last week
�--Levalbuterol as needed, to do her eyedrops
-Continue carbidopa levodopa
-Consult HEME
#Chronic Nausea / Esophageal Dysmotility/gastroparesis
#History GJ tube
�- has been able to tolerate PO meals / some meds of late.
�- Continue diet as tolerated.
�- Continue G-tube to gravity for chronic nausea.
�- Meds via J-tube.
-Zofran every 8 hours as needed
-Continue Pepcid
�
#Steroid-Induced DM-II
�- Continue basal insulin and add SSI coverage as needed.
�- Check A1C.
#Steroid-Induced Osteoporosis
#Chronic Pain Syndrome secondary to the above on chronic opiates
�- Continue buprenorphine 2 mg 4 times daily , Dilaudid 8 mg as needed
�- PT / OT evaluations.
�- Follow-up with usual academic affairs specialist after discharge.
#Migraine Hx
ODT Nurtec as needed
#Restless leg syndrome
-Continue baclofen
#History of DVT / PE
#Takes subcu Lovenox 100 mg twice daily
DVT Prophylaxis
�- Continue Lovenox
DNR-patient currently on palliative care with [facility] Dr. Noy Swartz
--- NOTE | 2023-08-30 14:27 | W.PN.UPDATE ---
Update Note
Progress Note Update
This is serves as an addendum to the H&P dictated by Mali Barros on 08/30/2023.
I saw and examined the patient.
The CATHODE WASHER or PA's note was reviewed and I agree with the note.
Comment:
Patient 33 years old female with history of mast cell activation syndrome dystonic reaction POTS steroid-induced diabetes chronic pain osteoporosis opiate dependence migraine benzodiazepine dependence Deana-Danlos syndrome presented to the hospital
with fever. Patient had a fever since last Friday and felt that she had a urinary tract infection was treated with Macrobid for 10 days but patient's symptoms persisted. She is also complaining of flank pain. She is tachycardic. She had some
possible seizures in the ER but described lasted more than 7 minutes; she had clonic movement and right-sided head turn and gaze deviation received some Ativan and shortly afterwards returned to her normal mental status. She uses benzodiazepine as
outpatient as well as Benadryl continuous infusion. She is also on carbidopa-levodopa for her dystonia. 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 In the ED,
white blood cell count 5.9, urinalysis with 11-15 RBCs, no WBC, few urine bacteria, occult blood; chest x-ray no acute chest pathology; influenza negative; COVID-19 negative. She was referred to hospitalist for further evaluation.
Physical exam:
General: Acutely ill
HEENT: Normocephalic, Atraumatic and Moist Mucous Membranes
Respiratory: Clear to Auscultation; Negative Wheezes, Rales or Rhonchi
Cardiac: Regular Rhythm, and tachycardic and S1/S2
GI: Soft, Nontender and Nondistended
Musculoskeletal: No Clubbing, No Cyanosis. B/L Edema
Neuro: Awake, Alert and Oriented, generalized weakness, no neuro-deficits.
Psych: Anxious
A/P:
Fever/seizures/possible mast cell activation syndrome flare/POST/high complex medical illnesses--> infectious workup, follow-up cultures, neurology, hematology, ID eval. Multiple drip and high risk meds requirements. Obtain old records. Also I put
a call for her OP [employer]er. Possible IMU and low threshold to transfer to ICU. Will give further recommendations based on her clinical course.
--- NOTE | 2023-08-30 14:58 | CON.NEURO4 ---
Consultation - Neurology 4
-
CONSULTING PHYSICIAN: Keith Sarmiento
REFERRING PHYSICIAN: ER/Hospitalist
DICTATED BY: Keith Sarmiento
DATE/TIME OF REQUEST: 08/30/23
DATE/TIME OF CONSULTATION: 08/30/23
Reason for Consultation: Dystonia
History of Present Illness:
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
low-grade fever, bilateral flank pain and increased urinary urgency for the past 1 to 2 weeks. She had previously been on Macrobid as an outpatient.
Patient reports she has been on her usual doses of 1 mg lorazepam p.o. 4 times a day and gets 15 mg continuous Benadryl per hour. No changes in carbidopa/levodopa which has been used for dopa responsive dystonia.
Patient had episode of abnormal neurologic activity with clonic movement and right-sided versive head turn and gaze deviation did receive 2 mg IV Ativan for this. Shortly after that she returned to normal mental status and on my interview with her
she was wide-awake and conversant with appropriate mental status and conversation.
She reports that she usually gets at least 1 dystonic episodes a day and when hospitalized with illness can sometimes be multiple times a day.
Her usual rescue medication regimen for dystonic episodes has been 2 mg IV lorazepam along with 25 mg IV Benadryl.
Has felt subjective fever and chills at home, no current cough or dyspnea.
Past Medical History: POTS syndrome, migraines, narcolepsy, MIKAL on CPAP, mast cell activation syndrome, episode of dystonia
Surgical History: Right upper extremity PICC line
Family History: Viewed and noncontributory no family history of seizures
Social History: Currently working she is living with her family, no alcohol drugs or tobacco
Review of Symptoms:
Patient denies any fever, headache, chest pain, shortness of breath, GI or symptoms.
Physical Exam:
Young woman in no acute distress no signs of head or neck trauma, eyes clear oropharynx clear neck with no masses heart rate tachycardic, breathing unlabored abdomen obese soft nontender, 1+ pitting edema bilaterally no rashes seen
Neurologic Examination:
The patient is fully awake, alert and oriented x 3. Conversation is appropriate. Good historian. No aphasia. Praxis normal, no neglect. On cranial nerve assessment, pupils are 3 mm bilateral, round and reactive to light and accommodation.
Visual kerns are full. Extraocular movements are intact. Facial sensations are intact and bilaterally symmetrical, there is no facial asymmetry. Hearing is intact bilaterally to normal conversation volume. Tongue palate and uvula are midline.
Sternocleidomastoid strengths are full bilaterally. Motor strengths are 5/5 bilateral upper and lower extremities on medical research Levelland scale. There is no drift or involuntary movement noted. Deep tendon reflexes are 2+ bilateral upper and
lower extremities and Babinski is absent bilaterally. Intact to light touch upper and lower extremities. Coordination is intact by finger to nose bilaterally.
Impressions
33-year-old woman with complex medical history of mast cell activation syndrome and recurrent episodes of dystonia which have been triggered more frequently with illness and patient has had responsive dystonia to carbidopa/levodopa. Vital signs
show low-grade fever along with tachycardia and suspicion for infection.
Patient's episode in the ER very likely represented dystonia given the clinical history of repeated abnormal episodes of neurologic dysfunction with abnormal posture and her quick return to a normal mental status, and epileptic seizure would very
likely resulted in a much longer postictal state and confusion.
Would expect that the patient is likely to have increased episodes of dystonia here during the hospitalization triggered by metabolic derangements of illness and infection.
Recommendations:
1. Ensure patient is on her home regimen of lorazepam. Continue 1 mg p.o. lorazepam every 6 hours
2. Would continue her existing Benadryl infusion
3. Not seeing an indication for antiseizure medications or EEG
4. For rescue of dystonic episodes would use 2 mg IV lorazepam and 25 mg IV Benadryl
5. Infectious workup and antibiotics
6. Would treat fever with Tylenol as these could conceivably lead to dystonic episodes
Discussed patient care with: Patient and ER
[2023-08-30 17:51] LABS: Glucose - Point of Care 126 mg/dl (70-99)
[2023-08-30] MEDS: BENADRYL 25 MG IV ×2 (17:59→21:15)
[2023-08-30] MEDS: PULMICORT 0.5 MG INH (19:30)
[2023-08-30] MEDS: DILAUDID 8 MG PO ×2 (19:55→23:10)
[2023-08-30] MEDS: OSCAL 500 + D 500 MG PO (20:14)
[2023-08-30] MEDS: DELTASONE 15 MG TUBE (20:15)
[2023-08-30] MEDS: SINEMET 25-100 2 TABLET TUBE (20:15)
[2023-08-30] MEDS: ATIVAN 1 MG PO ×2 (20:15→23:10)
[2023-08-30] MEDS: STERILE WATER FOR INJECTION 10 ML IV (20:16)
[2023-08-30] MEDS: ROCEPHIN 1000 MG IV (20:16)
[2023-08-30] MEDS: NOVOLOG FLEXPEN-MODERATE RESISTANCE SC (20:17)
[2023-08-30] MEDS: FEOSOL 325 MG PO (20:20)
[2023-08-30] MEDS: ZYRTEC TUBE (20:21)
[2023-08-30] MEDS: HYDREA 500 MG PO (20:21)
[2023-08-30] MEDS: NSS 1000 IV (20:21)
[2023-08-30] MEDS: ZYRTEC 10 MG TUBE (20:21)
[2023-08-30] MEDS: LOVENOX 90 MG SC (20:22)
[2023-08-30] MEDS: NSS (PRESERVATIVE FREE) 16 ML IV (20:23)
[2023-08-30] MEDS: PEPCID 40 MG IV (20:24)
[2023-08-30] MEDS: LIORESAL 10 MG TUBE (20:33)
[2023-08-30] MEDS: INDERAL 10 MG TUBE (20:49)
[2023-08-30 22:05] LABS: Glucose - Point of Care 109 mg/dl (70-99)
[2023-08-30] MEDS: SINEMET 25-100 TUBE (22:25)
[2023-08-30] MEDS: GASTROCROM 300 MG PO (22:26)
[2023-08-30] MEDS: SUBUTEX 2 MG SL (23:10)
[2023-08-31] VITALS (8 sets, daily range): BP systolic 111–158; BP diastolic 76–98; PULSE 123; O2SAT 95
[2023-08-31] MEDS: BENADRYL 25 MG IV ×4 (05:09→23:00)
[2023-08-31] MEDS: ATIVAN 2 MG IV ×3 (05:09→23:07)
[2023-08-31 05:42] LABS: % Basophils 0.4 % (0-2); % Immature Granulocytes 3.4 % (0-0.5); % Lymphocytes 46.5 % (20.5-51.1); % Monocytes 8.1 % (1.7-9.3); % Neutrophils 41.6 % (42.2-75.2); Absolute Immature Granulocytes 0.3 10^3/uL (0-0.05); Absolute Lymphocytes 3.4 10^3/uL (1.2-3.4); Absolute Monocytes 0.6 10^3/uL (0.1-0.6); Absolute Neutrophils 3.1 10^3/uL (1.4-6.5); Hematocrit 34.8 % (37.0-47.0); Hemoglobin 11.1 g/dL (12.0-16.0); Mean Corp Hgb Conc. 31.9 g/dL (33.0-37.0); Mean Corpuscular Hgb 35.4 pg (27.0-31.0); Mean Corpuscular Volume 110.8 fL (81.0-99.0); Mean Platelet Volume 9.3 fL (7.4-10.4); Nucleated Red Blood Cells % 0.3 %; Platelet Count 198 10^3/uL (130-400); Red Blood Cell Count 3.14 10^6/uL (4.20-5.40); Red Cell Dist. Width 19.8 % (11.5-14.5); White Blood Cell Count 7.4 10^3/uL (4.8-10.8)
[2023-08-31] MEDS: VENTOLIN NEBULES 2.5 MG INH ×2 (05:42→20:40)
[2023-08-31] MEDS: LIORESAL 10 MG TUBE ×3 (05:47→21:52)
[2023-08-31] MEDS: SINEMET 25-100 1.5 TABLET TUBE ×2 (05:47→09:55)
[2023-08-31] MEDS: ATIVAN 1 MG PO ×4 (05:47→23:36)
[2023-08-31] MEDS: NSS 1000 IV (05:52)
[2023-08-31 06:02] LABS: ALT (SGPT) 30 U/L (0-35); AST (SGOT) 33 U/L (14-36); Albumin 3.7 g/dl (3.5-5.0); Alkaline Phosphatase 97 U/L (38-126); Blood Urea Nitrogen 7 mg/dl (7-17); Calcium 8.8 mg/dl (8.4-10.2); Carbon Dioxide 27 mmol/L (22-30); Chloride 104 mmol/L (98-107); Estimated Creatinine Clearance > 125 ml/min; Glucose 116 mg/dl (70-99); Potassium 4.5 mmol/L (3.5-5.1); Sodium 137 mmol/L (135-145); Total Bilirubin 0.3 mg/dl (0.2-1.3); Total Protein 6.4 g/dl (6.3-8.2); eGFR > 60.00
[2023-08-31] MEDS: SUBUTEX 2 MG SL ×4 (06:05→23:36)
[2023-08-31 07:29] LABS: Glucose - Point of Care 130 mg/dl (70-99)
[2023-08-31] MEDS: PULMICORT 0.5 MG INH ×2 (07:44→20:40)
--- NOTE | 2023-08-31 07:52 | W.PN.NEURO.1 ---
Today's Communication / Plan
-
-Continue home Levodopa doses
-Continue 1 mg PO Lorazepam q6hr
-Expect that she may have increased amount of dystonic episodes while in hospital due to illness, stressors and sleep deprivation
--2 mg IV Lorazepam and 25 mg IV Benadryl for dystonic episodes
-Continue her usual home Bendaryl infusion
-Following infectious workup
Neuro Assessment/Plan
Assessment
33 year old woman with mast cell activation syndrome, episodic and dopa responsive dystonia, recurrent anaphylaxis maintained on benadryl infusion presenting to hospital with low grade fevers, flank pain, recent antibiotic use
No fevers since 08/29
Typical dystonic episode the AM of 08/31 improving with her usual rescue medications of Bendaryl and Lorazepam
No concern this represents seizure
Subjective/Objective
Subjective Data
Date of Service: August 31, 2023
Typical dystonic episode this morning with preservation of consciousness, given total of 4 mg IV lorazepam and 62.5 mg IV Benadryl with improving symptoms
Objective Data
Vital Signs
Temp Pulse Resp BP Pulse Ox
98.1 F 123 18 113/76 95
08/31/23 03:00 08/31/23 07:47 08/31/23 07:47 08/31/23 03:00 08/31/23 07:47
Lab Results
08/31/23 05:10
08/31/23 05:10
Sodium 137 mmol/L (135-145) 08/31/23 05:10
Potassium 4.5 mmol/L (3.5-5.1) 08/31/23 05:10
BUN 7 mg/dl (7-17) 08/31/23 05:10
Glucose 116 mg/dl (70-99) H 08/31/23 05:10
Calcium 8.8 mg/dl (8.4-10.2) 08/31/23 05:10
Patient Allergies
dog dander Allergy (Verified 06/11/23 21:07)
Unknown
escitalopram [From Lexapro] Allergy (Verified 06/11/23 21:07)
Unknown
gabapentin Allergy (Verified 06/11/23 21:07)
Unknown
gluten Allergy (Verified 06/11/23 21:07)
Unknown
grass pollen Allergy (Verified 06/11/23 21:07)
Unknown
house dust Allergy (Verified 06/11/23 21:07)
Unknown
ibuprofen Allergy (Verified 06/11/23 21:07)
'not supposed to take d/t proteinuria'
lactose Allergy (Verified 06/11/23 21:)
Nausea / Vomiting
lamotrigine [From Lamictal] Allergy (Verified 06/11/23 21:07)
Unknown
mold Allergy (Verified 06/11/23 21:07)
Unknown
montelukast [From Singulair] Allergy (Verified 06/11/23 21:07)
Unknown
nortriptyline Allergy (Verified 06/11/23 21:07)
Tachycardia
peanut Allergy (Verified 06/11/23 21:07)
Anaphylaxis
soy Allergy (Verified 06/11/23 21:07)
Unknown
topiramate [From Topamax] Allergy (Verified 06/11/23 21:07)
Unknown
tree and shrub pollen Allergy (Verified 06/11/23 21:07)
Unknown
weed pollen Allergy (Verified 06/11/23 21:07)
Unknown
Review of Systems
-
History Source: Patient
All other systems: Reviewed and negative
Constitutional: No Symptoms
EENT: No Symptoms Reported
Respiratory: No Symptoms
Cardiac: No Symptoms
Abdomen/GI: No Symptoms
Genitourinary: No Symptoms
Musculoskeletal: No Symptoms
Skin: No Symptoms
Neuro: See existing Neuro Note
Endocrine: No Symptoms
Hematologic / Lymphatic: No Symptoms
Allergy / Immunology: No Symptoms
Physical Exam
-
General: Appears in Distress and Obese
Eyes: No Ptosis
HEENT: Moist Mucous Membranes
Neck: Limited Range of Motion
Respiratory: No Dyspnea; Negative Accessory Resp Muscle Use
Cardiac: No Murmur
GI: Soft and Non-tender
Skin: Negative Rash
Extended Neurological Exam
Attention Span & Concentration: Other (Awake and alert and conversant during dystonic episode)
Memory: Able to Recall
Tremor: Other (Tremulousness of hands bilaterally)
Involuntary Movement: Other (Dystonic reaction, generalized with hands flexed bilaterally, left neck deviation, upward eye deviation)
Speech: Negative Expressive Aphasia or Receptive Aphasia
Cranial Nerve II: Left Eye: Pupillary Reactivity Unremarkable and Pupillary Size Unremarkable
Cranial Nerve II: Right Eye: Pupillary Reactivity Unremarkable and Pupillary Size Unremarkable
Cranial Nerves III, IV, : Extraocular Movement: Extraocular Movement Full in all Directions
Muscle Strength, Overall: Other (Dystonic reaction generalized, wrists and arms bilaterally flexed, neck with leftward deviation and extension, increased muscle tone throughout)
Muscle Bulk & Tone: Increased Tone
Data Reviewed
-
Medical Test Reports: Report Reviewed
Labs: Report Reviewed
Old Records: Summarized
[2023-08-31] MEDS: NOVOLOG FLEXPEN 8 UNITS SC ×3 (08:10→17:14)
[2023-08-31] MEDS: LANTUS 0.149999999999999994 UNITS SC (08:10)
[2023-08-31] MEDS: NOVOLOG FLEXPEN-MODERATE RESISTANCE SC (08:14)
--- NOTE | 2023-08-31 08:58 | W.PN.HOSP.TC ---
Today's Communication/Plan
-
IV antibiotics.
Assessment / Plan
Assessment / Plan
Physical exam:
General: Acutely ill
HEENT: Normocephalic, Atraumatic and Moist Mucous Membranes. Right eyelid stye.
Cardiac: Regular Rhythm, and tachycardic and S1/S2
GI: Soft, Nontender and Nondistended
Musculoskeletal: No Clubbing, No Cyanosis. B/L Edema
Neuro: Awake, Alert and Oriented, generalized weakness, no neuro-deficits.
Psych: Anxious
A/P:
#Bilateral flank pain poss UTI vs pyelo partial treated uti
#Recent completed course of Macrobid on 08/22/2023
COVID-negative
UA pending, temp 103> 100.4 lactic acid 2.6, HR 152, 143/92
-IV NSS 2 L bolus given in ER continued IV NSS 100 cc an hour--> we can stop IV fluids today.
-IV Rocephin
- Blood cultures x2--> ordered but ?not collected. Will repeat blood culture order today.
-ID consult appreciated and ID recommends to continue IV antibiotics for now.
-Check renal bladder ultrasound--> results unremarkable.
--PT/OT/case management eval
-Follow CBC, CMP
-Dr. Villanueva (outpatient marine cargo surveyor who follows her) office #[phone] and work cell # [phone]. His outpatient marine cargo surveyor partner called me back Dr Xiao but he tells me he does not see that patient would defer to Dr. Villanueva for any
specific recommendations. I will reach out again.
CXR: No active cardiopulmonary disease. Tip of PICC line superior vena cava
#Witnessed poss seizure activity vs chronic Dystonia
#Hx chronic benzo dependent
Seizure activity witnessed by ER physician Dr. Chiang x 7 minutes required IV Ativan
-Seizure precautions
-Neurology consult appreciated
Right eyelid hordeolum
-Local warm compresses
#Abnormal EKG
EKG sinus tachycardia 148 bpm, QTc 420 MS with T wave inversion anterior leads
Will follow daily EKG ,monitor troponin
#Chronic PICC line
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
#Mast Cell Activation Syndrome
#DOPA-Responsive Dystonia with Acute Flare
-follows with Dr. Lizabeth Villanueva at [facility] hematology.
- Continue Ativan / Benadryl (pump) 15 mg IV per hour was prior 13 mg
�-cont Gleevac 300 mg at 1400 was increased from 200 mg last week
�--Levalbuterol as needed, to do her eyedrops
-Continue carbidopa levodopa
-Consult HEME
#Chronic Nausea / Esophageal Dysmotility/gastroparesis
#History GJ tube
�- has been able to tolerate PO meals / some meds of late.
�- Continue diet as tolerated.
�- Continue G-tube to gravity for chronic nausea.
�- Meds via J-tube.
-Zofran every 8 hours as needed
-Continue Pepcid
�
#Steroid-Induced DM-II
�- Continue basal insulin and add SSI coverage as needed.
�- Check A1C. It is 6.7 today
#Steroid-Induced Osteoporosis
#Chronic Pain Syndrome secondary to the above on chronic opiates
�- Continue buprenorphine 2 mg 4 times daily , Dilaudid 8 mg as needed--> she said is not enough today. We will switch to IV Dilaudid only temporarily for 24-48 hours and hopefully back to her oral. Will hold oral pain medications while she is on
IV.
�- PT / OT evaluations.
�- Follow-up with usual lean manufacturing specialist after discharge.
#Migraine Hx
ODT Nurtec as needed
#Restless leg syndrome
-Continue baclofen
#History of DVT / PE
#Takes subcu Lovenox 100 mg twice daily
DVT Prophylaxis
�- Continue Lovenox full dose.
DNR
Total time spent on today's encounter was 52 minutes which included time spent in counseling the patient/family regarding diagnosis and treatment plan as listed above, goals of care, and symptom management. Case was discussed with nursing staff,
specialists, and care coordinators/case management. All labs and imaging personally reviewed by me. Remainder the time spent in detailed review of previous records, lab data, imaging, and other medical provider documentation.
Anticipated Discharge: 24 - 48 hours
Subjective/Interval History
-
Date of Service: August 31, 2023
Patient feels better overall today. She is less tachycardic. She is afebrile. She had some twitching today but resolved on its own. She thinks her oral pain medication are not working and would like to switch to IV-I told her we can do the only
temporary.
Objective Data
-
Labs:
Laboratory Results
08/31/23
05:10
WBC 7.4
Hgb 11.1 L
Hct 34.8 L
Plt Count 198
Sodium 137
Potassium 4.5
Chloride 104
Carbon Dioxide 27
BUN 7
Creatinine 0.4 L
Glucose 116 H
Calcium 8.8
Total Bilirubin 0.3
AST 33
ALT 30
Alkaline Phosphatase 97
Vital Signs:
Vital Signs
Temp Pulse Resp BP Pulse Ox
98.1 F 123 18 113/76 95
08/31/23 03:00 08/31/23 07:47 08/31/23 07:47 08/31/23 03:00 08/31/23 07:47
I&O
08/30/23 08/31/23 09/01/23
06:59 06:59 06:59
Intake Total 630 / 630
Output Total 1800 / 1800
Balance -1170 / -1170
[2023-08-31 09:00] LABS: Glycohemoglobin (HgbA1c) 6.7 % (4.0-5.6)
[2023-08-31] MEDS: NSS (PRESERVATIVE FREE) 16 ML IV ×2 (09:54→20:25)
[2023-08-31] MEDS: GASTROCROM 300 MG PO ×4 (09:54→21:57)
[2023-08-31] MEDS: PEPCID 40 MG IV ×2 (09:54→20:25)
[2023-08-31] MEDS: EMEND 80 MG PO (09:55)
[2023-08-31] MEDS: HYDREA 500 MG PO ×2 (09:55→20:24)
[2023-08-31] MEDS: DELTASONE 15 MG TUBE ×2 (09:56→20:24)
[2023-08-31] MEDS: INDERAL 10 MG TUBE ×3 (09:56→22:05)
[2023-08-31] MEDS: LOVENOX 90 MG SC ×2 (09:56→20:23)
[2023-08-31] MEDS: OSCAL 500 + D 500 MG PO ×2 (09:57→20:25)
[2023-08-31] MEDS: VITAMIN B1 100 MG TUBE (09:58)
--- NOTE | 2023-08-31 10:01 | PTCARENOTE ---
Addendum entered by Amada Huerta RN 08/31/23 17:45:
at 1530, pt with another mast cell flare. Symptoms the same, medicated with ativan & benadryl. Symptoms lasted approx 20 mins. Pt now comfortable after pain medication administered.
Original Note:
@ 0930 pt complained of Mast cell flare, began having rhythmic jerking, stated she needed medication. Specifically asked for ativan and benadryl. Was able to speak in full sentences. Symptoms lasted approx 15mins. Dr. Murray aware.
--- NOTE | 2023-08-31 11:12 | CON.ID ---
Addendum entered and electronically signed by Mary Grace Hill MD 08/31/23 13:39:
developing stye right eyelid
not the cause of fever
warm compresses
Original Note:
Consultation
-
Date/Time Consultation Requested: 08/31/23 15:03
Date/Time Consultation Performed: 08/31/23 11:12
Requesting Provider: Papo BLAS
Performing Provider: Dr Hill
Reason for Consultation: fever recent uti
Chief Complaint / Past History
Chief Complaint
fever
History of Present Illness
Ms Ontiveros is a 33 year old female with reported history of Mast Cell Activation Syndrome-chronic IV Benadryl pump, POTS, DOPA-sensitive Dystonia who presented here for fever x5 days with bilateral flank pain, uregency and urine incontinence x15
days. Diagnosed with UTI and started on macrobid x10 days - final dose 4/5. She denies headache, chest pain, palpitations, shortness of breath, cough, abdominal pain, vomiting, diarrhea. She denies headache, chest pain, palpitations, shortness of
breath, cough, abdominal pain, vomiting, diarrhea.
Since arrival here her tmax is 103.2 orally - no further fevers, bp has been stable, wbc 5.9 on arrival and 7.4 now, hgb 11.1, plt 198, eos are no present, there is a low neutrophil percentage, cr 0.4, a1c 6.7, t bili 0.3, ast 33, alt 30, alk phos
97, ua 0-2 wbc/hpf, covid ag neg, renal US: normal kidneys and no hydronephrosis, she presented with a PICC and CXR confirmed positioning. 4 urine culture 100k E coli sensitive to nitrofurantoin. In ER Dr Chiang reported witnessed seizure and she
was given IV ativan. Seen by neurology service who assessed the episode as likely dystonia
Past History
Additional Past Medical History:
Asthma, GERD, Hypercholesterolemia, Psychiatric (Anxiety), Other (Mast Cell activation Syndrome, neurocardiogenic syncope, Deana Danlos, narcolepsy, dystonia, sleep apnea, chronic vertigo, chronic daily headache, raynauds, RLS, IBS) and Other
(Osteoporosis)
Additional Past Surgical History:
Tonsilectomy and Urological (kidney biopsy)
Allergy History:
dog dander Allergy (Verified 06/11/23 21:07)
Unknown
escitalopram [From Lexapro] Allergy (Verified 06/11/23 21:07)
Unknown
gabapentin Allergy (Verified 06/11/23 21:07)
Unknown
gluten Allergy (Verified 06/11/23 21:07)
Unknown
grass pollen Allergy (Verified 06/11/23 21:07)
Unknown
house dust Allergy (Verified 06/11/23 21:07)
Unknown
ibuprofen Allergy (Verified 06/11/23 21:07)
'not supposed to take d/t proteinuria'
lactose Allergy (Verified 06/11/23 21:07)
Nausea / Vomiting
lamotrigine [From Lamictal] Allergy (Verified 06/11/23 21:07)
Unknown
mold Allergy (Verified 06/11/23 21:07)
Unknown
montelukast [From Singulair] Allergy (Verified 06/11/23 21:07)
Unknown
nortriptyline Allergy (Verified 06/11/23 21:07)
Tachycardia
peanut Allergy (Verified 06/11/23 21:07)
Anaphylaxis
soy Allergy (Verified 06/11/23 21:07)
Unknown
topiramate [From Topamax] Allergy (Verified 06/11/23 21:07)
Unknown
tree and shrub pollen Allergy (Verified 06/11/23 21:07)
Unknown
weed pollen Allergy (Verified 06/11/23 21:07)
Unknown
Medications Reviewed: Yes
Social History
Tobacco: Non-Smoker
Alcohol: None
Drug: None
Family History
Family History: Not Pertinent
Review of Systems
Review of Systems
General: Fever and Chills
All systems: All other systems were reviewed and were negative
Vital Signs
Temp Pulse Resp BP Pulse Ox
98.2 F 123 18 132/88 95
08/31/23 07:14 08/31/23 07:47 08/31/23 07:47 08/31/23 07:14 08/31/23 07:47
Physical Exam
Physical Exam
Constitutional: No Acute Distress, Chronically Ill and Obese
Cardiovascular: Regular Rate and S1/S2; Negative Murmur or Rub
Pulmonary: Clear and Symmetric; Negative Wheezes, Rales or Rhonchi
Gastrointestinal: Soft, Non Tender, Non Distended and Normal Bowel Sounds
Skin: Warm and Dry; Negative Rash or Jaundice
Lab / Diagnostic Study Results
08/31/23 05:10
08/31/23 05:10
Abs Immat Gran (auto) 0.3 10^3/uL (0-0.05) H 08/31/23 05:10
Absolute Neuts (auto) 3.1 10^3/uL (1.4-6.5) 08/31/23 05:10
Absolute Lymphs (auto) 3.4 10^3/uL (1.2-3.4) 08/31/23 05:10
Absolute Monos (auto) 0.6 10^3/uL (0.1-0.6) 08/31/23 05:10
Absolute Basos (auto) 0.0 10^3/uL (0-0.2) 08/31/23 05:10
Immature Gran % 3.4 % (0-0.5) H 08/31/23 05:10
Neutrophils % 41.6 % (42.2-75.2) L 08/31/23 05:10
Lymphocytes % 46.5 % (20.5-51.1) 08/31/23 05:10
Monocytes % 8.1 % (1.7-9.3) 08/31/23 05:10
Eosinophils % 0.0 % (0-6) 08/31/23 05:10
Basophils % 0.4 % (0-2) 08/31/23 05:10
Lactic Acid 2.6 mmol/L (0.7-2.0) H 08/30/23 11:11
Ur Squamous Epith Cells 6-10 /LPF (Few) 08/30/23 14:00
Microbiology Results
Micro:
08/30/23 11:11 Influenza Types A & B (KENNETH) - Final
Nasal Swab Negative for Influenza A & B, NAAT
Negative results must be combined with clinical observations
and patient history.
Nucleic Acid Amplification test (NAAT)performed on the
[employer] ID NOW platform.
Assessment / Plan
Single Fever
Possible UTI
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
Numerous stated allergies - none to antibiotics
PICC in place
Dystonia
- UA 08/29 no pyuria
- urine culture ordered; - 08/17 urine culture E coli sensitive to macrobid which she received
- renal US: no evidence of pyleonephritis, no obstruction
- continue ceftriaxone for now
- follow clinicalyl
[2023-08-31 11:49] LABS: Glucose - Point of Care 154 mg/dl (70-99)
[2023-08-31] MEDS: DILAUDID 0.5 MG IV (12:03)
[2023-08-31] MEDS: ZADITOR 1 DROP OPHTH ×2 (12:05→20:27)
[2023-08-31] MEDS: NOVOLOG FLEXPEN-MODERATE RESISTANCE 1 UNITS SC ×2 (12:40→17:13)
[2023-08-31] MEDS: DILAUDID 1 MG IV ×3 (13:36→21:45)
[2023-08-31] MEDS: SINEMET 25-100 2 TABLET TUBE ×2 (14:24→19:12)
[2023-08-31] MEDS: NON-FORMULARY ITEM 200 MG PO (14:28)
[2023-08-31] MEDS: NSS IV (15:12)
--- NOTE | 2023-08-31 16:24 | CM ---
Patient with Hx GJ tube/Gastrojejunostomy tube, Dx Bilateral flank pain poss UTI vs pyelo, Witnessed poss seizure activity vs chronic Dystonia. O2 3L. Receiving IV Abx, Subutex. . PT & OT; no therapy recommended.
Met with patient who resides in a 2 story house with her parents, with first floor bedroom bathroom setup.
The patient has been assisted with ADLs (bathing dressing) by her 09/12 caregivers from [facility].
She ambulates short distances only with her rollator wearing her back brace, and states she mostly uses her w/c.
DME - hospital bed, Rollator, Steel Back brace, SPC, w/c, raised toilet seat, shower chair, commode, CPAP, nebulizer, O2 concentrator/portables through [facility]
VN - recent [facility] for SN and wants [facility] for PT
Patient states she has GJ tube - G for drainage & J for meds, has triple lumen PICC
[facility]- states has continuous pump for Benadryl as well as rescue doses of Benadryl
[facility] administerd IV saline, iV famotidine, IV solumedrol, IV Zofran
Has Palliative Care in place.
Patient says she transports by ambulance.
Plan make referrals to [facility] and [facility].
--- NOTE | 2023-08-31 16:32 | CON.ONC ---
Impression
Impression
UTI
h/o mast cell activation syndrome
dystonia
Deana Danlos
POTS
Plan
Plan
1. UTI - - antibiotics as per ID
2. Mast cell activation syndrome - cont outpt benadryl pump - f/u w/ Dr. Villanueva for continued management
Patient History
History of Present Illness
33y/o female seen in hematology consultation regarding h/o mast cell activation syndrome.
The patient is followed by Dr. Villanueva at [facility] and is on a chronic IV Benadryl pump as well as mast cell stabilizer therapy. She also has a h/o POTS, dystonia on L-dopa. She presented to the ER w/ fevers,bilateral flank pain, and uregency. She
had recently been treated for a UTI; but is now on ceftriaxone for possible complicated urinary infection.
In the ER she had a dystonic episode, tx w/ ativan. Neurology is following at .
Clinically, she feels better today. She denies headache, chest pain, palpitations, shortness of breath, cough, abdominal pain, vomiting, diarrhea.
Past-Medical/Surgical History
PMH:
mast cell activation syndrome - followed at [facility] - Dr. Villanueva
POTS
dystonia - DOPA-sensitive
Deana-Danlos syndrome with hypermobility type,
DVT and PE
Steroid-Induced Diabetes Mellitus Type II
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
Chronic Pain Syndrome on chronic opiates
Chronic benzo dependency
chronic nausea/esophageal dysmotility with G-tube
GERD
Migraine Headache
Restless leg syndrome
Raynaud's phenomena
PSH:
Chronic PICC line
Social History
Tobacco: Non-smoker
Alcohol: None
Drug: None
Personal: Single
Living: With Family (Mother and stepfather)
Employment: Disabled
Family History
Family History: Not pertinent
Allergies: multiple as per chart
Patient Medication
�Medication �Instructions �Recorded �Confirmed �Last Taken �Type
propranolol 10 mg tablet 10 mg feeding tube TID Heart 04/16/15 08/30/23 08/30/23 History
disease/condition
cetirizine 10 mg tablet 10 mg feeding tube BID@1700,2200 11/03/20 08/30/23 08/29/23 History
Allergies
budesonide 0.5 mg/2 mL suspension 0.5 mg inhalation R BID 09/27/21 08/30/23 08/30/23 History
for nebulization Lung/breathing issues
diphenhydramine HCl 50 mg/mL 0 mg IV .CONTINUOUS Allergies 09/27/21 08/30/23 08/30/23 History
injection solution
diphenhydramine HCl 50 mg/mL 25 mg IV Q3HPRN PRN mcas 09/27/21 08/30/23 08/30/23 History
injection solution reaction/anaphylaxis/dystonia
famotidine (PF) 20 mg/2 mL 40 mg IV Q12H Gastrointestinal 09/27/21 08/30/23 08/30/23 History
intravenous solution issue
rabeprazole 20 mg tablet,delayed 20 mg PO BID Gastrointestinal issue 09/27/21 08/30/23 08/30/23 History
release (AcipHex)
ferrous sulfate 325 mg (65 mg 325 mg PO HS Supplement 10/02/21 08/30/23 08/29/23 History
iron) tablet (FeroSul)
rimegepant 75 mg disintegrating 75 mg PO DAILYPRN PRN migraine 10/02/21 08/30/23 2 Days Ago History
tablet (Nurtec ODT) ~08/28/23
acetaminophen 650 mg 1,300 mg PO Q8H Pain 05/13/22 08/30/23 08/30/23 History
tablet,extended release
baclofen 10 mg tablet 10 mg feeding tube 05/13/22 08/30/23 08/30/23 History
TID@0600,1400,2200 Muscle Spasms
imatinib 100 mg tablet (Gleevec) 200 mg PO DAILY@1400 MCAS 05/13/22 08/30/23 08/29/23 History
insulin lispro 100 unit/mL 8 unit SC AC Diabetes 05/13/22 08/30/23 08/29/23 History
subcutaneous pen
lorazepam 2 mg/mL oral concentrate 2 mg sublingual Q6H PRN dystonia 05/13/22 08/30/23 08/30/23 History
thiamine HCl (vitamin B1) 100 mg 100 mg feeding tube DAILY 05/13/22 08/30/23 08/30/23 History
tablet Supplement
fexofenadine 180 mg tablet 180 mg PO BID Allergies 06/18/22 08/30/23 08/30/23 History
carbidopa 25 mg-levodopa 100 mg 1.5 tab feeding tube BID@0600,1000 08/17/22 08/30/23 08/30/23 History
tablet (Sinemet) DYSTONIA
carbidopa 25 mg-levodopa 100 mg 2 tab feeding tube BID@1400,1800 08/17/22 08/30/23 08/29/23 History
tablet (Sinemet) DYSTONIA
ondansetron HCl (PF) 4 mg/2 mL 4 mg IV Q6HPRN PRN severe 02/11/23 08/30/23 08/30/23 History
injection solution nausea/vomiting
Nss 1,000 ml IV DAILY hydration 03/24/23 08/30/23 08/30/23 History
Nss 1,000 ml IV DAILYPRN PRN SYMPTOMS 03/24/23 08/30/23 08/29/23 History
albuterol sulfate 2.5 mg/3 mL 2.5 mg inhalation R Q6HPRN PRN 06/11/23 08/30/23 08/29/23 History
(0.083 %) solution for nebulization anaphylaxis
buprenorphine HCl 2 mg sublingual 2 mg sublingual QID Pain 06/11/23 08/30/23 08/30/23 History
tablet
calcium citrate 200 mg 4 tab PO BID Supplement 06/11/23 08/30/23 08/29/23 History
calcium-vitamin D3 6.25 mcg (250
unit) tablet
enoxaparin 100 mg/mL subcutaneous 90 mg SC BID Blood Clot 06/11/23 08/30/23 08/30/23 09:30 History
syringe Prevention/Tx
hydromorphone 8 mg tablet 8 mg PO Q3H PRN severe pain 06/11/23 08/30/23 2 Days Ago History
~08/28/23
insulin glargine 100 unit/mL (3 15 unit SC DAILY Diabetes 06/11/23 08/30/23 08/30/23 History
mL) subcutaneous pen (Lantus
Solostar U-100 Insulin)
simethicone 80 mg chewable tablet 80 mg PO HS PRN gas 06/11/23 08/30/23 08/29/23 History
aprepitant 80 mg capsule (Emend) 80 mg PO DAILY MCAS 06/23/23 08/30/23 08/30/23 History
hydroxyurea 500 mg capsule 500 mg PO BID #60 caps 07/02/23 08/30/23 08/30/23 Rx
Ketotifen 1 mg PO BID Allergies 08/30/23 08/30/23 08/30/23 History
cholecalciferol (vitamin D3) 1,250 1,250 mcg PO MO@0800 Supplement 08/30/23 08/30/23 08/25/23 History
mcg (50,000 unit) capsule
cromolyn 100 mg/5 mL oral 300 mg PO QID Allergies 08/30/23 08/30/23 08/30/23 History
concentrate
etonogestrel 0.12 mg-ethinyl 1 vag ring vaginal Q4W 08/30/23 08/30/23 08/30/23 History
estradiol 0.015 mg/24 hr vaginal control
ring (NuvaRing)
fluticasone propionate 50 2 spray intranasal DAILY PRN 08/30/23 08/30/23 3 Days Ago History
mcg/actuation nasal allergies ~08/27/23
spray,suspension
insulin lispro 100 unit/mL 0 sliding scale dose SC 08/30/23 08/30/23 08/29/23 History
subcutaneous pen DIRECTED Diabetes
ketotifen fumarate 0.025 % (0.035 1 drp BOTH EYES BID Eye Condition 08/30/23 08/30/23 08/30/23 History
%) eye drops
prednisone 5 mg tablet 15 mg feeding tube BID 08/30/23 08/30/23 08/30/23 History
Anti-Inflammatory
Active Medications
Generic Name Dose Route Start Last Admin
Trade Name Freq PRN Reason Stop Dose Admin
Acetaminophen 650 mg 08/30/23 16:51
Acetaminophen 325 Mg Tablet PO 09/27/23 16:50
Q4HPRN PRN
mild pain/CONTI/temp> 100.4F
Albuterol Sulfate 2.5 mg 08/30/23 16:51 08/31/23 05:42
Albuterol Nebs 2.5 Mg/3 Ml Ampul INH 2.5 mg
R Q6HPRN PRN Administration
anaphylaxis
Protocol
Aprepitant 80 mg 08/31/23 08:00 08/31/23 09:55
Aprepitant (Emend) 40 Mg Capsule PO 09/28/23 07:59 80 mg
DAILY MELONIE Administration
Baclofen 10 mg 08/30/23 22:00 08/31/23 14:25
Baclofen 10 Mg Tablet TUBE 09/27/23 21:59 10 mg
TID@0600,1400,2200 MELONIE Administration
Budesonide 0.5 mg 08/30/23 20:00 08/31/23 07:44
Budesonide (Pulmicort Respules) 0.5 Mg/2 Ml INH 0.5 mg
R BID MELONIE Administration
Protocol
Buprenorphine 2 mg 08/30/23 19:42 08/31/23 14:24
Buprenorphine 2 Mg Sl Tablet SL 09/13/23 17:59 2 mg
QID@0000,0600,1200,1800 MELONIE Administration
Calcium/Vitamin D 500 mg 08/30/23 20:00 08/31/23 09:57
Calcium Carbonate 500 Mg/Vitamin D 5 Mcg (200 Units) Tablet PO 09/27/23 19:59 500 mg
BID MELONIE Administration
Carbidopa/Levodopa 2 tablet 08/30/23 15:00 08/31/23 14:24
Carbidopa (25 Mg)/Levodopa (100 Mg) Regular Release Tablet TUBE 09/27/23 14:59 2 tablet
BID@1400,1800 MELONIE Administration
Carbidopa/Levodopa 1.5 tablet 08/31/23 06:00 08/31/23 09:55
Carbidopa (25 Mg)/Levodopa (100 Mg) Regular Release Tablet TUBE 09/28/23 05:59 1.5 tablet
BID@0600,1000 MELONIE Administration
Ceftriaxone Sodium 1,000 mg 08/30/23 18:00 08/30/23 20:16
Ceftriaxone 1000 Mg / 10 Ml Vial IV 1,000 mg
Q24H MELONIE Administration
Cetirizine HCl 10 mg 08/30/23 17:00 08/30/23 20:21
Cetirizine Hcl 10 Mg Tablet TUBE 09/27/23 16:59 10 mg
BID@1700,2200 MELONIE Administration
Cromolyn Sodium 300 mg 08/30/23 21:30 08/31/23 12:40
Cromolyn 100 Mg/5 Ml Oral Concentrate (Non-Form) Ampul PO 09/27/23 21:29 300 mg
QID@0930,1330,1730,2130 MELONIE Administration
Device 0 each 08/30/23 19:30
Diphenydramine Continuous Infusion IV 09/27/23 19:29
DIRECTED MELONIE
Dextrose 12.5 grams 08/30/23 16:51
Dextrose 50% (0.5 Grams/Ml) 50 Ml Syringe IV 09/27/23 16:50
[id number] PRN
hypoglycemia
Protocol
Diphenhydramine HCl 25 mg 08/30/23 15:00 08/30/23 17:59
Diphenhydramine 50 Mg/Ml 1 Ml Vial IV 09/27/23 14:59 25 mg
ONCE PRN Administration
For dystonia episode only
Diphenhydramine HCl 25 mg 08/30/23 16:51 08/31/23 15:30
Diphenhydramine 50 Mg/Ml 1 Ml Vial IV 09/27/23 16:50 25 mg
Q3HPRN PRN Administration
mcas reaction/anaphylaxis/dystonia
Enoxaparin Sodium 90 mg 08/30/23 20:00 08/31/23 09:56
Enoxaparin Sodium 100 Mg/Ml Syringe SC 09/27/23 19:59 90 mg
BID MELONIE Administration
Ergocalciferol 50,000 units 09/01/23 08:00
Ergocalciferol (Vitamin D-2) 87739 Units Capsule PO 09/29/23 07:59
MO@0800 MELONIE
Famotidine 40 mg 08/30/23 20:00 08/31/23 09:54
Famotidine 20 Mg/2 Ml Vial IV 09/27/23 19:59 40 mg
Q12 MELONIE Administration
Ferrous Sulfate 325 mg 08/30/23 22:00 08/30/23 20:20
Ferrous Sulfate 325 Mg Tablet PO 09/27/23 21:59 325 mg
HS MELONIE Administration
Glucagon 1 mg 08/30/23 16:51
Glucagon 1 Mg Vial IM 09/27/23 16:50
PRN PRN
hypoglycemia
Protocol
Hydromorphone HCl 1 mg 08/31/23 12:39 08/31/23 13:36
Hydromorphone 1 Mg/Ml Carpuject IV 09/14/23 12:38 1 mg
Q3HPRN PRN Administration
severe pain
Hydroxyurea 500 mg 08/30/23 20:00 08/31/23 09:55
Hydroxyurea 500 Mg Capsule PO 09/27/23 19:59 500 mg
BID MELONIE Administration
Insulin Glargine 15 units/ 0.15 mls @ 0 mls/hr 08/31/23 08:00 08/31/23 08:10
Device SC 09/28/23 07:59 0.15 mls
DAILY MELONIE Administration
As Directed
Insulin Aspart 0 units 08/30/23 16:51 08/31/23 12:40
Insulin Aspart Moderate Resistance 300 Units/3 Ml Pen.Injctr SC 09/27/23 16:50 1 units
AC MELONIE Administration
Protocol
Insulin Aspart 8 units 08/31/23 07:30 08/31/23 12:39
Insulin Aspart (100 Units/Ml) 3 Ml Flexpen SC 09/28/23 07:29 8 units
AC MELONIE Administration
Ketotifen Fumarate 0 drop 08/31/23 11:00 08/31/23 12:05
Ketotifen Fumarate (Ophthalmic Solution) Bottle OPHTH 09/28/23 10:59 1 drop
BID MELONIE Administration
Lorazepam 1 mg 08/30/23 18:00 08/31/23 12:42
Lorazepam 1 Mg Tablet PO 09/27/23 17:59 1 mg
Q6 MELONIE Administration
Lorazepam 2 mg 08/30/23 15:00 08/31/23 15:31
Lorazepam 2 Mg/Ml Vial IV 09/27/23 14:59 2 mg
Q6HPRN PRN Administration
For dystonia only
Lorazepam 2 mg 08/30/23 17:44
Lorazepam 2 Mg Tablet SL 09/27/23 17:43
Q6HPRN PRN
dystonia
Imatinib [Gleevec] 0 mg 08/31/23 14:00 08/31/23 14:28
100 Mg Tablet. Take PO 09/28/23 13:59 200 mg
2 Tablets (200mg) By DAILY@1400 MELONIE Administration
Mouth Daily At 14:
00
Ketotifen Fumerate 1 0 mg 08/31/23 20:00
Mg Capsule. Take 1 PO 09/28/23 19:59
Capsule By Mouth BID MELONIE
Twice A Day
Rabeprazole [Aciphex 0 mg 08/31/23 20:00
] 20 Mg Tablet, PO 09/28/23 19:59
Delayed Release. BID MELONIE
Take 1 Tablet Twice
Daily
Non-Formulary Medication 75 mg 08/30/23 16:51
Rimegepant [Nurtec Odt] PO
DAILYPRN PRN
migraine
Fexofenadine ( 0 mg 08/31/23 20:00
Rosey) 180 Mg PO 09/28/23 19:59
Tablet Take 1 Tablet BID MELONIE
By Mouth Twice
Daily
Ondansetron HCl 4 mg 08/30/23 16:51 08/30/23 21:05
Ondansetron 4 Mg/2 Ml Vial IV 09/27/23 16:50 4 mg
Q6HPRN PRN Administration
severe nausea/vomiting
Prednisone 15 mg 08/30/23 20:00 08/31/23 09:56
Prednisone 10 Mg Tablet TUBE 09/27/23 19:59 15 mg
BID MELONIE Administration
Propranolol HCl 10 mg 08/30/23 22:00 08/31/23 09:56
Propranolol 10 Mg Regular Release Tablet TUBE 09/27/23 21:59 10 mg
TID MELONIE Administration
Simethicone 80 mg 08/30/23 16:51
Simethicone 80 Mg Chewable Tablet PO 09/27/23 16:50
HSPRN PRN
gas
Sodium Chloride 1 ml 08/30/23 15:30
Nss (Pf) 10 Ml Vial For Ativan 2 Mg Dose IV 09/27/23 15:29
Q6HPRN PRN
IV LORAZEPAM DILUTION
Sodium Chloride 16 ml 08/30/23 20:00 08/31/23 09:54
Nss 8 Ml Bid IV 09/27/23 19:59 16 ml
BID MELONIE Administration
Sodium Chloride 0 flush 08/30/23 22:00
Sodium Chloride 0.9% (Flush) Syringe IV 09/27/23 21:59
PER PROTOCOL MELONIE
Sterile Water 10 ml 08/30/23 18:00 08/30/23 20:16
Sterile Water For Injection 10 Ml Vial IV 09/27/23 17:59 10 ml
Q24H MELONIE Administration
Thiamine HCl 100 mg 08/31/23 08:00 08/31/23 09:58
Thiamine 100 Mg Tablet TUBE 09/28/23 07:59 100 mg
DAILY MELONIE Administration
Review of Systems
-
A ROS was obtained w/ pertinent findings as per HPI.
Physical Exam
-
General: Well Developed and No Apparent Distress
Cardiology: Normal Sinus Rhythm
Pulmonary: Clear
GI: Soft
Extremities: No C/C/E
Neurology: Non Focal
Labs
Lab Results
WBC 7.4 10^3/uL (4.8-10.8) 08/31/23 05:10
RBC 3.14 10^6/uL (4.20-5.40) L 08/31/23 05:10
Hgb 11.1 g/dL (12.0-16.0) L 08/31/23 05:10
Hct 34.8 % (37.0-47.0) L 08/31/23 05:10
MCV 110.8 fL (81.0-99.0) H 08/31/23 05:10
MCH 35.4 pg (27.0-31.0) H 08/31/23 05:10
MCHC 31.9 g/dL (33.0-37.0) L 08/31/23 05:10
RDW 19.8 % (11.5-14.5) H 08/31/23 05:10
Plt Count 198 10^3/uL (130-400) 08/31/23 05:10
MPV 9.3 fL (7.4-10.4) 08/31/23 05:10
Abs Immat Gran (auto) 0.3 10^3/uL (0-0.05) H 08/31/23 05:10
Absolute Neuts (auto) 3.1 10^3/uL (1.4-6.5) 08/31/23 05:10
Absolute Lymphs (auto) 3.4 10^3/uL (1.2-3.4) 08/31/23 05:10
Absolute Monos (auto) 0.6 10^3/uL (0.1-0.6) 08/31/23 05:10
Absolute Eos (auto) 0.0 10^3/uL (0-0.7) 08/31/23 05:10
Absolute Basos (auto) 0.0 10^3/uL (0-0.2) 08/31/23 05:10
Immature Gran % 3.4 % (0-0.5) H 08/31/23 05:10
Neutrophils % 41.6 % (42.2-75.2) L 08/31/23 05:10
Lymphocytes % 46.5 % (20.5-51.1) 08/31/23 05:10
Monocytes % 8.1 % (1.7-9.3) 08/31/23 05:10
Eosinophils % 0.0 % (0-6) 08/31/23 05:10
Basophils % 0.4 % (0-2) 08/31/23 05:10
Creatinine 0.4 mg/dL (0.6-1.0) L 08/31/23 05:10
Vital Signs
Vital Signs
Temp Pulse Resp BP Pulse Ox
97.8 F 111 16 142/95 98
08/31/23 11:18 08/31/23 11:18 08/31/23 11:18 08/31/23 11:18 08/31/23 11:18
[2023-08-31 16:45] LABS: Glucose - Point of Care 166 mg/dl (70-99)
[2023-08-31] MEDS: ROCEPHIN 1000 MG IV (17:08)
[2023-08-31] MEDS: STERILE WATER FOR INJECTION 10 ML IV (17:08)
[2023-08-31] MEDS: ZYRTEC 10 MG TUBE ×2 (17:09→21:57)
[2023-08-31] MEDS: NON-FORMULARY ITEM 180 MG PO (20:24)
[2023-08-31] MEDS: NON-FORMULARY ITEM 1 MG PO (20:25)
[2023-08-31] MEDS: NON-FORMULARY ITEM 20 MG PO (20:26)
[2023-08-31] MEDS: FEOSOL 325 MG PO (21:51)
[2023-08-31 21:54] LABS: Glucose - Point of Care 152 mg/dl (70-99)
[2023-08-31] MEDS: NSS (PRESERVATIVE FREE) 1 ML IV (23:07)
[2023-09-01] MEDS: DILAUDID 1 MG IV ×4 (03:00→20:06)
[2023-09-01 03:30] VITALS: BP 138/88
[2023-09-01] MEDS: MYLICON 80 MG PO (04:38)
[2023-09-01 05:21] LABS: % Basophils 0.4 % (0-2); % Immature Granulocytes 2.4 % (0-0.5); % Lymphocytes 34.1 % (20.5-51.1); % Monocytes 6.9 % (1.7-9.3); % Neutrophils 56.2 % (42.2-75.2); Absolute Immature Granulocytes 0.2 10^3/uL (0-0.05); Absolute Lymphocytes 2.4 10^3/uL (1.2-3.4); Absolute Monocytes 0.5 10^3/uL (0.1-0.6); Absolute Neutrophils 3.9 10^3/uL (1.4-6.5); Hematocrit 31.9 % (37.0-47.0); Hemoglobin 10.5 g/dL (12.0-16.0); Mean Corp Hgb Conc. 32.9 g/dL (33.0-37.0); Mean Corpuscular Hgb 35.4 pg (27.0-31.0); Mean Corpuscular Volume 107.4 fL (81.0-99.0); Mean Platelet Volume 9.2 fL (7.4-10.4); Nucleated Red Blood Cells % 0 %; Platelet Count 210 10^3/uL (130-400); Red Blood Cell Count 2.97 10^6/uL (4.20-5.40); Red Cell Dist. Width 19.8 % (11.5-14.5)
[2023-09-01 05:58] LABS: ALT (SGPT) 30 U/L (0-35); AST (SGOT) 32 U/L (14-36); Albumin 3.7 g/dl (3.5-5.0); Alkaline Phosphatase 96 U/L (38-126); Blood Urea Nitrogen 9 mg/dl (7-17); Calcium 9.1 mg/dl (8.4-10.2); Carbon Dioxide 26 mmol/L (22-30); Chloride 104 mmol/L (98-107); Estimated Creatinine Clearance > 125 ml/min; Glucose 168 mg/dl (70-99); Potassium 4.4 mmol/L (3.5-5.1); Sodium 135 mmol/L (135-145); Total Bilirubin 0.2 mg/dl (0.2-1.3); Total Protein 6.4 g/dl (6.3-8.2); eGFR > 60.00
[2023-09-01] MEDS: SUBUTEX 2 MG SL ×4 (06:05→23:02)
[2023-09-01] MEDS: ATIVAN 1 MG PO ×4 (06:05→23:02)
[2023-09-01] MEDS: LIORESAL 10 MG TUBE ×3 (06:05→21:19)
[2023-09-01] MEDS: SINEMET 25-100 1.5 TABLET TUBE ×2 (06:06→08:54)
[2023-09-01 07:30] VITALS: BP 122/78
[2023-09-01] MEDS: PULMICORT 0.5 MG INH ×2 (08:01→19:32)
[2023-09-01 08:04] LABS: Glucose - Point of Care 119 mg/dl (70-99)
[2023-09-01] MEDS: BENADRYL 25 MG IV ×3 (08:25→19:52)
[2023-09-01] MEDS: ATIVAN 2 MG IV ×3 (08:29→14:43)
[2023-09-01] MEDS: NOVOLOG FLEXPEN-MODERATE RESISTANCE SC (08:48)
[2023-09-01] MEDS: LANTUS 0.149999999999999994 UNITS SC (08:50)
[2023-09-01] MEDS: NOVOLOG FLEXPEN 8 UNITS SC ×3 (08:51→16:50)
[2023-09-01] MEDS: LOVENOX 90 MG SC ×2 (08:52→21:15)
[2023-09-01] MEDS: DELTASONE 15 MG TUBE ×2 (08:52→21:18)
[2023-09-01] MEDS: EMEND 80 MG PO (08:53)
[2023-09-01] MEDS: VITAMIN B1 100 MG TUBE (08:54)
[2023-09-01] MEDS: DRISDOL (VITAMIN D2) 50000 UNITS PO (08:55)
[2023-09-01] MEDS: OSCAL 500 + D 500 MG PO ×2 (08:56→21:19)
[2023-09-01] MEDS: HYDREA 500 MG PO ×2 (08:56→21:15)
[2023-09-01] MEDS: INDERAL 10 MG TUBE ×3 (08:57→21:18)
[2023-09-01] MEDS: PEPCID 40 MG IV ×2 (08:58→21:25)
[2023-09-01] MEDS: NON-FORMULARY ITEM 20 MG PO (09:02)
[2023-09-01] MEDS: NON-FORMULARY ITEM 1 MG PO ×3 (09:02→21:22)
[2023-09-01] MEDS: NON-FORMULARY ITEM 180 MG PO (09:03)
[2023-09-01] MEDS: ZADITOR 1 DROP OPHTH ×2 (09:04→21:22)
[2023-09-01] MEDS: NSS (PRESERVATIVE FREE) 16 ML IV ×2 (09:06→21:26)
[2023-09-01] MEDS: GASTROCROM 300 MG PO ×4 (09:08→21:40)
[2023-09-01] MEDS: BENADRYL 12.5 MG IV (09:14)
[2023-09-01] MEDS: NSS (PRESERVATIVE FREE) 1 ML IV (10:11)
[2023-09-01] MEDS: BENADRYL 250 MG IV (10:15)
[2023-09-01 11:00] VITALS: BP 104/73
[2023-09-01 12:25] LABS: Glucose - Point of Care 189 mg/dl (70-99)
[2023-09-01] MEDS: NOVOLOG FLEXPEN-MODERATE RESISTANCE 1 UNITS SC ×2 (12:29→16:50)
[2023-09-01] MEDS: SINEMET 25-100 2 TABLET TUBE ×2 (12:37→16:45)
[2023-09-01] MEDS: NON-FORMULARY ITEM 200 MG PO (13:41)
[2023-09-01] MEDS: ZOFRAN 4 MG IV (14:10)
--- NOTE | 2023-09-01 14:57 | PTCARENOTE ---
Patient with dystonia episode this AM , Dr Sarmiento was present 0830- rec'd meds as ordered, episode resolved w/i 20 minutes. At 1443 patient experienced another dystonic episode, rec'd meds as ordered, symptoms resolved within 15 minutes.
--- NOTE | 2023-09-01 15:32 | CM ---
Addendum entered by Kailey Ramirez 09/01/23 16:02:
Patient to home with [facility] nurse 09/02/23 at 11am by ambulance.
Original Note:
manager intensive care reviewed patient's chart and met with patient and patient to return to home when stable, Patient will resume home infusion services through [facility], patient's physician has spoken with pharmacist , case management director reached
out to [facility] private duty aides, and case management director is waiting on [facility] private caregivers to confirm that they have and aide to go home with patient this evening.
[facility]
- [facility] [phone]
Patient will need ambulance transport to home
[2023-09-01 15:40] VITALS: BP 131/96
--- NOTE | 2023-09-01 16:25 | W.PN.HOSP.TC ---
Today's Communication/Plan
-
Observe off antibiotics
IV fluids in the maintenance
Continue current analgesic regimen along with benzodiazepines/carbidopa for dystonic reaction.
Discharge planing
Assessment / Plan
Assessment / Plan
A/P:
#Bilateral flank pain possible UTI vs pyelo partial treated uti
#Recent completed course of Macrobid on 08/22/2023
COVID-negative
Chest x-ray with no acute pulmonary disease
Remains afebrile
Blood and urine cultures negative to date.
Initiated on ceftriaxone.
Discussed with ID, given negative culture data. Observe off antibiotics
-Dr. Villanueva (outpatient door repairman who follows her) office #[phone] and work cell # [phone]. His outpatient door repairman partner called me back Dr Xiao but he tells me he does not see that patient would defer to Dr. Villanueva for any
specific recommendations. I will reach out again.
#Witnessed poss seizure activity vs chronic Dystonia
#Hx chronic benzo dependent
Seizure activity witnessed by ER physician Dr. Chiang x 7 minutes required IV Ativan
-Seizure precautions
-Neurology consult appreciated
Right eyelid hordeolum
-Local warm compresses
#Abnormal EKG
EKG sinus tachycardia 148 bpm, QTc 420 MS with T wave inversion anterior leads
Will follow daily EKG ,monitor troponin
#Chronic PICC line
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
#Mast Cell Activation Syndrome
#DOPA-Responsive Dystonia with Acute Flare
-follows with Dr. Lizabeth Villanueva at [facility] hematology.
- Continue Ativan / Benadryl (pump) 15 mg IV per hour was prior 13 mg
�-cont Gleevac 300 mg at 1400 was increased from 200 mg last week
�--Levalbuterol as needed, to do her eyedrops
-Continue carbidopa levodopa
-Consult HEME
#Chronic Nausea / Esophageal Dysmotility/gastroparesis
#History GJ tube
�- has been able to tolerate PO meals / some meds of late.
�- Continue diet as tolerated.
�- Continue G-tube to gravity for chronic nausea.
�- Meds via J-tube.
-Zofran every 8 hours as needed
-Continue Pepcid
�
#Steroid-Induced DM-II
�- Continue basal insulin and add SSI coverage as needed.
�- Check A1C. It is 6.7 today
#Steroid-Induced Osteoporosis
#Chronic Pain Syndrome secondary to the above on chronic opiates
�- Continue buprenorphine 2 mg 4 times daily , Dilaudid 8 mg as needed--> she said is not enough today. We will switch to IV Dilaudid only temporarily for 24-48 hours and hopefully back to her oral. Will hold oral pain medications while she is on
IV.
�- PT / OT evaluations.
�- Follow-up with usual marketing support specialist after discharge.
#Migraine Hx
ODT Nurtec as needed
#Restless leg syndrome
-Continue baclofen
#History of DVT / PE
#Takes subcu Lovenox 100 mg twice daily
DVT Prophylaxis
�- Continue Lovenox full dose.
DNR
Anticipated Discharge: 24 - 48 hours
Subjective/Interval History
-
Date of Service: September 01, 2023
Objective Data
-
Labs:
Laboratory Results
09/01/23
05:05
WBC 7.0
Hgb 10.5 L
Hct 31.9 L
Plt Count 210
Sodium 135
Potassium 4.4
Chloride 104
Carbon Dioxide 26
BUN 9
Creatinine 0.3 L
Glucose 168 H
Calcium 9.1
Total Bilirubin 0.2
AST 32
ALT 30
Alkaline Phosphatase 96
Vital Signs:
Vital Signs
Temp Pulse Resp BP Pulse Ox
98.3 F 112 16 131/96 97
09/01/23 15:40 09/01/23 15:40 09/01/23 15:40 09/01/23 15:40 09/01/23 15:40
I&O
08/31/23 09/01/23 09/02/23
06:59 06:59 06:59
Intake Total 630 / 630 2520 / 2520 480 / 480
Output Total 1800 / 1800 1800 / 1800
Balance -1170 / -1170 720 / 720 480 / 480
Physical Exam
-
General: Well Developed and No Apparent Distress
HEENT: Normocephalic, Atraumatic and Moist Mucous Membranes
Respiratory: Clear to Auscultation
Cardiac: Regular Rhythm and S1/S2; Negative Murmur, Rub or Gallop
GI: Soft, Nontender, Nondistended and Normal Bowel Sounds; Negative Organomegaly
Rectal: Deferred by Provider
Musculoskeletal: No Clubbing, No Cyanosis and No Edema
Skin: Negative Rash
Neuro: Nonfocal/Grossly Intact
[2023-09-01] MEDS: NSS 1000 IV (16:40)
[2023-09-01 16:42] LABS: Glucose - Point of Care 152 mg/dl (70-99)
[2023-09-01] MEDS: ZYRTEC 10 MG TUBE ×2 (16:44→21:15)
--- NOTE | 2023-09-01 17:24 | W.PN.ID1 ---
Date of Service
Date of Service: September 01, 2023
Today's Communication
agree with stopping antibiotics
stable for dc from ID perspective
Assessment / Plan
Single Fever
Ruled out UTI
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
Numerous stated allergies - none to antibiotics
PICC in place
Dystonia
- urine culture negative
- agree with stopping ceftriaxone
- PICC functional
- follow up with her PCP and opth
Chief Complaint
-: UTI
Subjective / Review of Systems
afebrile
bp stabe
without leukocytosis
cr stable
urine culture negative
Vital Signs / Physical Exam
Vital Signs
Vital Signs
Temp Pulse Resp BP Pulse Ox
98.3 F 112 16 131/96 97
09/01/23 15:40 09/01/23 15:40 09/01/23 15:40 09/01/23 15:40 09/01/23 15:40
Physical Exam
Constitutional: No Acute Distress and Comfortable
Cardiovascular: Regular Rate
Pulmonary: Symmetric
Gastrointestinal: Non Distended
Objective Data
Lab Data
Lab Results
09/01/23 05:05
09/01/23 05:05
Estimated Creat Clear > 125 ml/min 09/01/23 05:05
Lactic Acid 2.6 mmol/L (0.7-2.0) H 08/30/23 11:11
Total Bilirubin 0.2 mg/dl (0.2-1.3) 09/01/23 05:05
AST 32 U/L (14-36) 09/01/23 05:05
ALT 30 U/L (0-35) 09/01/23 05:05
Alkaline Phosphatase 96 U/L (38-126) 09/01/23 05:05
Most recent labs reviewed.
Micro Results:
08/31/23 12:55 Blood Culture - Preliminary
Blood/Venous No Growth in 24 hours- Final report to follow
08/31/23 15:16 Urine Culture - Final
Urine NO GROWTH
08/30/23 11:11 Influenza Types A & B (KENNETH) - Final
Nasal Swab Negative for Influenza A & B, NAAT
Negative results must be combined with clinical observations
and patient history.
Nucleic Acid Amplification test (NAAT)performed on the
[employer] platform.
Care Review
Plan reviewed with: Physician (Dr Kirk stopping antibiotics)
[2023-09-01] MEDS: VENTOLIN NEBULES 2.5 MG INH (19:32)
[2023-09-01] MEDS: ATIVAN 1 MG IV (19:59)
[2023-09-01] MEDS: NSS (PRESERVATIVE FREE) 0.5 ML IV (20:09)
[2023-09-01 20:39] VITALS: BP 125/87
[2023-09-01 21:11] LABS: Glucose - Point of Care 138 mg/dl (70-99)
[2023-09-01] MEDS: NON-FORMULARY ITEM PO (21:20)
[2023-09-01] MEDS: FEOSOL 325 MG PO (21:23)
[2023-09-01 23:35] VITALS: BP 99/69
[2023-09-02] MEDS: BENADRYL 250 MG IV (01:47)
[2023-09-02] MEDS: DILAUDID 1 MG IV ×2 (03:09→16:41)
[2023-09-02 03:58] VITALS: BP 113/77
[2023-09-02] MEDS: ATIVAN 2 MG IV (05:59)
[2023-09-02] MEDS: BENADRYL 25 MG IV ×2 (05:59→10:22)
[2023-09-02] MEDS: ATIVAN 1 MG PO ×2 (06:23→11:58)
[2023-09-02] MEDS: SUBUTEX 2 MG SL (06:23)
[2023-09-02] MEDS: LIORESAL 10 MG TUBE ×2 (06:24→12:48)
[2023-09-02] MEDS: SINEMET 25-100 1.5 TABLET TUBE ×2 (06:25→08:59)
--- NOTE | 2023-09-02 06:40 | PTCARENOTE ---
Patient's HR to 30s while sleeping (in and out of first degree and type 1 second degree HB), Asymptomatic, BP- 103/41. House EDITOR made aware. As per advise, Dr Guerrero made aware via TT. No new orders at this time.
[2023-09-02 07:00] VITALS: BP 139/91
[2023-09-02 07:59] LABS: Glucose - Point of Care 109 mg/dl (70-99)
[2023-09-02] MEDS: PULMICORT 0.5 MG INH (08:06)
[2023-09-02 08:22] LABS: % Basophils 0.4 % (0-2); % Eosinophils 0.4 % (0-6); % Immature Granulocytes 2.3 % (0-0.5); % Lymphocytes 53.5 % (20.5-51.1); % Monocytes 7.5 % (1.7-9.3); % Neutrophils 35.9 % (42.2-75.2); Absolute Immature Granulocytes 0.2 10^3/uL (0-0.05); Absolute Lymphocytes 3.9 10^3/uL (1.2-3.4); Absolute Monocytes 0.6 10^3/uL (0.1-0.6); Absolute Neutrophils 2.6 10^3/uL (1.4-6.5); Hematocrit 31.7 % (37.0-47.0); Hemoglobin 10.4 g/dL (12.0-16.0); Mean Corp Hgb Conc. 32.8 g/dL (33.0-37.0); Mean Corpuscular Hgb 35.4 pg (27.0-31.0); Mean Corpuscular Volume 107.8 fL (81.0-99.0); Mean Platelet Volume 9.5 fL (7.4-10.4); Nucleated Red Blood Cells % 0.3 %; Platelet Count 259 10^3/uL (130-400); Red Blood Cell Count 2.94 10^6/uL (4.20-5.40); Red Cell Dist. Width 19.8 % (11.5-14.5); White Blood Cell Count 7.3 10^3/uL (4.8-10.8)
--- NOTE | 2023-09-02 08:53 | W.DS.TRANS ---
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
-
Discharge Instructions:
Discharge Diagnosis/Procedures Possible UTI
Diet Regular
Instructions:
Stand-Alone Forms:
Changes to Home Medications: No
Discharge Medications:
DC Medications w/original date entered in [facility]
propranolol 10 mg tablet 10 mg feeding tube TID Heart disease/condition 04/16/15
cetirizine 10 mg tablet 10 mg feeding tube BID@1700,2200 Allergies 11/03/20
budesonide 0.5 mg/2 mL suspension for nebulization 0.5 mg inhalation R BID Lung/breathing issues 09/27/21
diphenhydramine HCl 50 mg/mL injection solution 0 mg IV .CONTINUOUS Allergies 09/27/21
diphenhydramine HCl 50 mg/mL injection solution 25 mg IV Q3HPRN PRN mcas reaction/anaphylaxis/dystonia 09/27/21
famotidine (PF) 20 mg/2 mL intravenous solution 40 mg IV Q12H Gastrointestinal issue 09/27/21
rabeprazole 20 mg tablet,delayed release (AcipHex) 20 mg PO BID Gastrointestinal issue 09/27/21
ferrous sulfate 325 mg (65 mg iron) tablet (FeroSul) 325 mg PO HS Supplement 10/02/21
rimegepant 75 mg disintegrating tablet (Nurtec ODT) 75 mg PO DAILYPRN PRN migraine 10/02/21
acetaminophen 650 mg tablet,extended release 1,300 mg PO Q8H Pain 05/13/22
baclofen 10 mg tablet 10 mg feeding tube TID@0600,1400,2200 Muscle Spasms 05/13/22
imatinib 100 mg tablet (Gleevec) 200 mg PO DAILY@1400 MCAS 05/13/22
insulin lispro 100 unit/mL subcutaneous pen 8 unit SC AC Diabetes 05/13/22
lorazepam 2 mg/mL oral concentrate 2 mg sublingual Q6H PRN dystonia 05/13/22
thiamine HCl (vitamin B1) 100 mg tablet 100 mg feeding tube DAILY Supplement 05/13/22
fexofenadine 180 mg tablet 180 mg PO BID Allergies 06/18/22
carbidopa 25 mg-levodopa 100 mg tablet (Sinemet) 1.5 tab feeding tube BID@0600,1000 DYSTONIA 08/17/22
carbidopa 25 mg-levodopa 100 mg tablet (Sinemet) 2 tab feeding tube BID@1400,1800 DYSTONIA 08/17/22
ondansetron HCl (PF) 4 mg/2 mL injection solution 4 mg IV Q6HPRN PRN severe nausea/vomiting 02/11/23
Nss 1,000 ml IV DAILY hydration 03/24/23
Nss 1,000 ml IV DAILYPRN PRN SYMPTOMS 03/24/23
albuterol sulfate 2.5 mg/3 mL (0.083 %) solution for nebulization 2.5 mg inhalation R Q6HPRN PRN anaphylaxis 06/11/23
buprenorphine HCl 2 mg sublingual tablet 2 mg sublingual QID Pain 06/11/23
calcium citrate 200 mg calcium-vitamin D3 6.25 mcg (250 unit) tablet 4 tab PO BID Supplement 06/11/23
enoxaparin 100 mg/mL subcutaneous syringe 90 mg SC BID Blood Clot Prevention/Tx 06/11/23
hydromorphone 8 mg tablet 8 mg PO Q3H PRN severe pain 06/11/23
insulin glargine 100 unit/mL (3 mL) subcutaneous pen (Lantus Solostar U-100 Insulin) 15 unit SC DAILY Diabetes 06/11/23
simethicone 80 mg chewable tablet 80 mg PO HS PRN gas 06/11/23
aprepitant 80 mg capsule (Emend) 80 mg PO DAILY MCAS 06/23/23
hydroxyurea 500 mg capsule 500 mg PO BID #60 caps 07/02/23
Ketotifen 1 mg PO BID Allergies 08/30/23
cholecalciferol (vitamin D3) 1,250 mcg (50,000 unit) capsule 1,250 mcg PO MO@0800 Supplement 08/30/23
cromolyn 100 mg/5 mL oral concentrate 300 mg PO QID Allergies 08/30/23
etonogestrel 0.12 mg-ethinyl estradiol 0.015 mg/24 hr vaginal ring (NuvaRing) 1 vag ring vaginal Q4W control 08/30/23
fluticasone propionate 50 mcg/actuation nasal spray,suspension 2 spray intranasal DAILY PRN allergies 08/30/23
insulin lispro 100 unit/mL subcutaneous pen 0 sliding scale dose SC DIRECTED Diabetes 08/30/23
ketotifen fumarate 0.025 % (0.035 %) eye drops 1 drp BOTH EYES BID Eye Condition 08/30/23
prednisone 5 mg tablet 15 mg feeding tube BID Anti-Inflammatory 08/30/23
Home Medication Changes
Pending Results: No
[2023-09-02] MEDS: NOVOLOG FLEXPEN 8 UNITS SC ×3 (08:56→16:14)
[2023-09-02] MEDS: NOVOLOG FLEXPEN-MODERATE RESISTANCE SC ×2 (08:57→16:14)
[2023-09-02] MEDS: DELTASONE 15 MG TUBE (08:57)
[2023-09-02] MEDS: EMEND 80 MG PO (08:58)
[2023-09-02] MEDS: HYDREA 500 MG PO (08:59)
[2023-09-02] MEDS: INDERAL 10 MG TUBE ×2 (09:00→15:21)
[2023-09-02] MEDS: GASTROCROM 300 MG PO ×3 (09:00→15:48)
[2023-09-02] MEDS: LOVENOX 90 MG SC (09:01)
[2023-09-02] MEDS: OSCAL 500 + D 500 MG PO (09:01)
[2023-09-02] MEDS: PEPCID 40 MG IV (09:01)
[2023-09-02] MEDS: NON-FORMULARY ITEM 1 MG PO (09:02)
[2023-09-02] MEDS: LANTUS 0.149999999999999994 UNITS SC (09:02)
[2023-09-02] MEDS: NSS (PRESERVATIVE FREE) 16 ML IV (09:03)
[2023-09-02] MEDS: NON-FORMULARY ITEM 180 MG PO (09:03)
[2023-09-02] MEDS: NON-FORMULARY ITEM 20 MG PO (09:04)
[2023-09-02] MEDS: ZADITOR 1 DROP OPHTH (09:05)
[2023-09-02] MEDS: VITAMIN B1 100 MG TUBE (09:07)
[2023-09-02 09:10] LABS: ALT (SGPT) < 10 U/L (0-35); AST (SGOT) 33 U/L (14-36); Albumin 3.9 g/dl (3.5-5.0); Alkaline Phosphatase 100 U/L (38-126); Blood Urea Nitrogen 9 mg/dl (7-17); Carbon Dioxide 28 mmol/L (22-30); Chloride 104 mmol/L (98-107); Estimated Creatinine Clearance > 125 ml/min; Glucose 113 mg/dl (70-99); Sodium 136 mmol/L (135-145); Total Bilirubin 0.3 mg/dl (0.2-1.3); Total Protein 6.5 g/dl (6.3-8.2); eGFR > 60.00
--- NOTE | 2023-09-02 10:28 | CM ---
Addendum entered by Kailey Ramirez 09/02/23 13:29:
Per patient she received a text from her mother that she was agreeable with patient returning to home, piano case maker called patient's mother left message, no return call, call placed to Cookie at [facility] who reached out to patient's mother and
confirmed plan for discharge today, ambulance to be set up today.
Original Note:
Chart reviewed and patient has been cleared for discharge today to home with 24 hour caregiver 7 days a week from [facility], piano case maker confirmed services in home. Patient also has [facility] in home, the physician reached out to patient's
pharmacist yesterday to resume medications in home that are provided by [facility].
underwriting manager received a call from patient's mother who states that she does not want her daughter to return to home but wants her placed. underwriting manager discussed placement with patient and patient reuses placement. Patient states that she was
originally in her own apartment and her mother came to her apartment and took her to her home with her step father. Both patient and mother had eventually obtained 24 hour caregivers through [facility] and patient feels her home set up meets her
needs. Patient states that she was at [facility] last summer and her mother made the same request, multiple referrals were sent patient ended up staying at [facility] [place] for 3 months and was still not accepted at any long term before she
finally went home as per patient she was not accepted at any skilled facilities. Patient is aware that she is currently on medications that nursing homes cannot accept or manage.
underwriting manager reached out to [facility] however per Miguel Angel in admissions [phone] they do not accept Leni [facility] from [facility].
Plan; To follow up with plan for patient.
[2023-09-02] MEDS: ZOFRAN 4 MG IV (10:38)
[2023-09-02] MEDS: VENTOLIN NEBULES 2.5 MG INH (10:47)
[2023-09-02 11:00] VITALS: BP 116/93
--- NOTE | 2023-09-02 11:24 | PTCARENOTE ---
Patient with dystonic episode this am, receiced IV Benadryl as ordered. Hospitalist notified. Resolved w/i 15 minutes. Received IV Zofran for c/o nausea and a prn resp treatment for c/o wheezing. Will cont to monitor.
[2023-09-02 11:57] LABS: Glucose - Point of Care 208 mg/dl (70-99)
[2023-09-02] MEDS: NOVOLOG FLEXPEN-MODERATE RESISTANCE 3 UNITS SC (11:58)
[2023-09-02] MEDS: SUBUTEX SL (12:00)
--- NOTE | 2023-09-02 12:47 | W.PN.ID1 ---
Date of Service
Date of Service: September 02, 2023
Today's Communication
- follow up with her PCP
ID service will no longer actively follow this patient please recall for further questions
Assessment / Plan
Single Fever
Ruled out UTI
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
Numerous stated allergies - none to antibiotics
PICC in place
Dystonia
- remains afebrile, stable off of antibiotics
- PICC functional without evidence of infection
- follow up with her PCP
ID service will no longer actively follow this patient please recall for further questions
Chief Complaint
-: UTI
Subjective / Review of Systems
remains afebrile off of antibiotics
without leukocytosis
cr stable
blood and urine cultures no growth
Vital Signs / Physical Exam
Vital Signs
Vital Signs
Temp Pulse Resp BP Pulse Ox
97.6 F 110 17 116/93 94
09/02/23 11:00 09/02/23 11:00 09/02/23 11:00 09/02/23 11:00 09/02/23 11:00
Physical Exam
Constitutional: No Acute Distress and Obese
Cardiovascular: Regular Rate
Pulmonary: Symmetric and Non Labored
Gastrointestinal: Non Distended
Neurological: Awake
Objective Data
Lab Data
Lab Results
09/02/23 07:36
09/02/23 07:36
Estimated Creat Clear > 125 ml/min 09/02/23 07:36
Lactic Acid 2.6 mmol/L (0.7-2.0) H 08/30/23 11:11
Total Bilirubin 0.3 mg/dl (0.2-1.3) 09/02/23 07:36
AST 33 U/L (14-36) 09/02/23 07:36
ALT < 10 U/L (0-35) 09/02/23 07:36
Alkaline Phosphatase 100 U/L (38-126) 09/02/23 07:36
Most recent labs reviewed.
Micro Results:
08/31/23 12:55 Blood Culture - Preliminary
Blood/Venous No Growth in 24 hours- Final report to follow
08/31/23 15:16 Urine Culture - Final
Urine NO GROWTH
08/30/23 11:11 Influenza Types A & B (KENNETH) - Final
Nasal Swab Negative for Influenza A & B, NAAT
Negative results must be combined with clinical observations
and patient history.
Nucleic Acid Amplification test (NAAT)performed on the
[employer] platform.
Care Review
Plan reviewed with: Physician (Dr Reagan youssef)
[2023-09-02] MEDS: SINEMET 25-100 2 TABLET TUBE (12:48)
[2023-09-02] MEDS: NON-FORMULARY ITEM 200 MG PO (12:53)
[2023-09-02 15:00] VITALS: BP 118/72
[2023-09-02] MEDS: ZYRTEC 10 MG TUBE (15:54)
[2023-09-02 16:08] LABS: Glucose - Point of Care 142 mg/dl (70-99)
== END 2023-09-02 18:09 | disposition home or self-care (01) | DRG 690 ==
LOC: 4 WEST ACU 15:20
PROVIDERS: Clinical Nurse Specialist Family Health; Nurse Practitioner; ADMITTING PHYSICIAN Hospitalist; ATTENDING PHYSICIAN Internal Medicine; CONSULT PHYSICIAN Internal Medicine Hematology & Oncology; CONSULT PHYSICIAN Student in an Organized Health Care Education/Training Program; EMERGENCY PHYSICIAN Emergency Medicine; FAMILY PHYSICIAN Student in an Organized Health Care Education/Training Program
DX: N39.0 Urinary tract infection, site not specified (principal); F11.20 Opioid dependence, uncomplicated; F13.20 Sedative, hypnotic or anxiolytic dependence, uncomplicated; Q79.60 Ehlers-Danlos syndrome, unspecified; D89.40 Mast cell activation, unspecified; G24.9 Dystonia, unspecified; G90.A Postural orthostatic tachycardia syndrome [POTS]; M81.8 Other osteoporosis without current pathological fracture; T38.0X5A Adverse effect of glucocorticoids and synthetic analogues, initial encounter; G43.909 Migraine, unspecified, not intractable, without status migrainosus; E78.00 Pure hypercholesterolemia, unspecified; F41.9 Anxiety disorder, unspecified; G25.81 Restless legs syndrome; G47.33 Obstructive sleep apnea (adult) (pediatric); G47.419 Narcolepsy without cataplexy; I73.00 Raynaud's syndrome without gangrene; K21.9 Gastro-esophageal reflux disease without esophagitis; J45.909 Unspecified asthma, uncomplicated; K58.9 Irritable bowel syndrome, unspecified; E66.01 Morbid (severe) obesity due to excess calories; E09.9 Drug or chemical induced diabetes mellitus without complications; I95.1 Orthostatic hypotension; J38.3 Other diseases of vocal cords; K22.4 Dyskinesia of esophagus; G89.4 Chronic pain syndrome; K31.84 Gastroparesis; R56.9 Unspecified convulsions; R32 Unspecified urinary incontinence; H00.011 Hordeolum externum right upper eyelid; G47.00 Insomnia, unspecified; Z66 Do not resuscitate; Z68.36 Body mass index [BMI] 36.0-36.9, adult; Z11.52 Encounter for screening for COVID-19; Z86.16 Personal history of COVID-19; Z86.711 Personal history of pulmonary embolism; Z86.718 Personal history of other venous thrombosis and embolism; Z88.6 Allergy status to analgesic agent; Z91.02 Food additives allergy status; Z91.011 Allergy to milk products; Z91.010 Allergy to peanuts; Z88.8 Allergy status to other drugs, medicaments and biological substances; Z91.018 Allergy to other foods; Z79.4 Long term (current) use of insulin; Z79.51 Long term (current) use of inhaled steroids; Z79.52 Long term (current) use of systemic steroids
CPT/HCPCS: 51701; 71045; 76770; 80053; 81003; 81015; 82962; 83036; 83605; 85025; 87040; 87086; 87502; 87811; 93005; 94640; 96361; 96374; 96375; 97163; 97167; 99285

== ENCOUNTER 2023-09-19 22:22 | Inpatient (IN) | payer OTHER, SELFPAY ==
[2023-09-19 14:02] VITALS: BP 149/103; BMI 38.6
[2023-09-19 14:21] LABS: % Basophils 0.4 % (0-2); % Eosinophils 0.1 % (0-6); % Immature Granulocytes 2.9 % (0-0.5); % Monocytes 4.2 % (1.7-9.3); % Neutrophils 71.4 % (42.2-75.2); Absolute Immature Granulocytes 0.2 10^3/uL (0-0.05); Absolute Lymphocytes 1.4 10^3/uL (1.2-3.4); Absolute Monocytes 0.3 10^3/uL (0.1-0.6); Absolute Neutrophils 4.9 10^3/uL (1.4-6.5); Hematocrit 34.2 % (37.0-47.0); Hemoglobin 11.5 g/dL (12.0-16.0); Mean Corp Hgb Conc. 33.6 g/dL (33.0-37.0); Mean Corpuscular Hgb 36.3 pg (27.0-31.0); Mean Corpuscular Volume 107.9 fL (81.0-99.0); Mean Platelet Volume 9.1 fL (7.4-10.4); Nucleated Red Blood Cells % 0 %; Platelet Count 289 10^3/uL (130-400); Red Blood Cell Count 3.17 10^6/uL (4.20-5.40); Red Cell Dist. Width 17.2 % (11.5-14.5); White Blood Cell Count 6.9 10^3/uL (4.8-10.8)
[2023-09-19 15:09] LABS: ALT (SGPT) 12 U/L (0-35); AST (SGOT) 26 U/L (14-36); Albumin 3.5 g/dl (3.5-5.0); Alkaline Phosphatase 97 U/L (38-126); Blood Urea Nitrogen 5 mg/dl (7-17); Calcium 8.9 mg/dl (8.4-10.2); Carbon Dioxide 21 mmol/L (22-30); Chloride 107 mmol/L (98-107); Estimated Creatinine Clearance > 125 ml/min; Glucose 157 mg/dl (70-99); Potassium 3.9 mmol/L (3.5-5.1); Sodium 138 mmol/L (135-145); Total Bilirubin 0.5 mg/dl (0.2-1.3); Total Protein 6.4 g/dl (6.3-8.2); eGFR > 60.00
--- NOTE | 2023-09-19 15:48 | ED.GENMED ---
History of Present Illness
General
Chief Complaint: Catheter/Tube Problem
Source: patient and records
Exam Limitations: none
Time Seen by Provider: 09/19/23 14:21
Nursing documentation reviewed up to this point in time: agreed with
Travel History
Have you had any contact with someone who has COVID-19?: No
Do you have any symptoms of coronavirus? Fever > 100 degrees, chills, cough, shortness of breath, sore throat, loss of taste or smell, muscle aches, or headache?: Yes
Symptoms:: see triage note
History of Present Illness
History of Present Illness:
33-year-old female with extensive medical history as documented presents to have her GJ tube assessed, is also been dealing with fevers recently. Primary presenting complaint is concern about her GJ tube�she has chronic gastroparesis and has G-tube
mainly for drainage, administers her medications via J-tube. She says that over the past week she has noticed that the tube seems to be extruding more than usual and then when she tries to push it back into place she has bilious drainage from
around the site. She says that she has an aching feeling like being punched in the stomach near the GJ tube site. She came in for assessment of this; she still has been able to administer meds via her J port. She has not had any redness of the
skin around the site has been changing dressing regularly. She is also requesting evaluation of fever; she had a notable recent mission from 08/29 to 09/01 for fever thought to be related to a urinary tract infection. She was treated with
ceftriaxone and discharged. Since then she says she has been having intermittent fevers despite taking Tylenol. She says that today she took 2 extra strength Tylenol and still had a temperature of 100.1 �F. She says that she has been following
with her primary for this and that they are titrating down her prednisone and she is planned to have an outpatient CT of the chest/abdomen/pelvis searching for any infectious source. With borderline fever today she says that she called her primary
and that in addition to being assessed for GJ tube she was recommended to come to the emergency room for expedited CT scan and infectious workup. She denies any cough. She denies any specific urinary symptoms�she says she will occasionally have
incontinence of urine but that this is not necessarily unusual and she does not have any dysuria or hematuria. Denies URI type symptoms. She denies diarrhea.
Past History
Past History
ED Past Medical History: Asthma, GERD, Hypercholesterolemia, Psychiatric (Anxiety), Other (Mast Cell activation Syndrome, neurocardiogenic syncope, Deana Danlos, narcolepsy, dystonia, sleep apnea, chronic vertigo, chronic daily headache, raynauds,
RLS, IBS) and Other (Osteoporosis)
ED Past Surgical History: Tonsilectomy and Urological (kidney biopsy)
Social History
Tobacco: Non-smoker
Alcohol: None
Drug: None
Personal: Single
Living: with family
Employment: Employed
Family History
Family History: Other (Noncontributory); Negative Sudden
Review of Systems
Review of Systems
All Other Systems: ROS reviewed and negative except as documented in HPI and ROS
Constitutional: Reports fever, fatigue and chills
EENT: Denies sore throat or runny nose
Respiratory: Denies cough or trouble breathing
Cardiac: Denies chest pain or palpitations
ABD/GI: Reports abdominal pain (Near GJ tube), nausea (Chronic with gastroparesis) and other (GJ tube leaking); Denies vomiting or diarrhea
: Reports incontinence; Denies dysuria, frequency or flank pain
Musculoskeletal: Reports back pain (Chronic unchanged); Denies neck pain
Neurological: Denies dizzy or headache
Phy Exam
Physical Exam
Physical Exam:
General: Awake, alert, oriented x3; chronically ill-appearing
Head: Normocephalic, atraumatic
Eyes: Conjunctiva normal, pupils equal round and reactive to light bilaterally
Throat: Airway intact, handling secretions
Neck: Trachea midline, supple without meningismus
Lungs: Clear to auscultation bilaterally, no wheezing, rales, rhonchi
Heart: Tachycardia with regular rhythm, no murmurs, gallops, or rubs
Abd: Soft, non distended, mild tenderness across the upper abdomen; she has a GJ tube in place, insertion site appears clean with no erythema or signs of skin infection; there is no active leakage from around the tube
Extremities: No edema in extremities, warm and well-perfused
Scores
Heart Failure Risk
Heart Failure Risk Score: Not Applicable
Heart Score for Chest Pain Patients
STEMI patient?: Not applicable
Withdrawal Assessment of Alcohol
Withdrawal Assessment Completed?: Not applicable
Course
Orders/Labs/Results
Orders:
Orders
09/19/23 14:04
Portable Chest Xray [CR Chest Portable - 1 View] Urgent
Comment:
Reason For Exam: PICC placement
Reason Study Needs to be Portable: Other
09/19/23 14:15
Complete Blood Count/With Diff Urgent
Comprehensive Metabolic Panel Urgent
Lactate Level [Lactic Acid] Urgent
Lipase Urgent
Blood Culture Routine
EMILIANO Source: Blood/Venous
Specimen Description:
09/19/23 14:18
EKG [Electrocardiogram (*1)] Urgent
Reason for Study: Tachycardia
09/19/23 14:19
EKG- Treatment ONCE
09/19/23 15:47
HYDROmorphone [Dilaudid] 1.5 mg IV NOW STA
Ondansetron Injectable [Zofran] 4 mg IV NOW STA
09/19/23 15:57
0.9% Sodium Chloride 1000 ml [Nss] 1,000 ml IV BOLUS
09/19/23 17:13
Lorazepam [Ativan] 1 mg IV NOW STA
Lorazepam [Ativan] 2 mg .ROUTE .STK-MED ONE
09/19/23 17:17
Diphenhydramine [Benadryl] 50 mg .ROUTE .STK-MED ONE
09/19/23 17:32
Diphenhydramine [Benadryl] 25 mg IV NOW STA
09/19/23 18:09
CT Abd/pel Without Iv Or Oral Urgent
Comment:
Reason For Exam: abd pain, c/f GJ tube dislodged
09/19/23 20:58
Acetaminophen [Tylenol] 1,000 mg PO NOW STA
HYDROmorphone [Dilaudid] 1 mg IV NOW STA
Ondansetron Injectable [Zofran] 4 mg IV NOW STA
09/19/23 21:02
Blood Culture Urgent
EMILIANO Source: Blood/Venous
Specimen Description:
Abnormal Lab Results
09/19/23
14:15
RBC 3.17 L 10^6/uL
(4.20-5.40)
Hgb 11.5 L g/dL
(12.0-16.0)
Hct 34.2 L %
(37.0-47.0)
MCV 107.9 H fL
(81.0-99.0)
MCH 36.3 H pg
(27.0-31.0)
RDW 17.2 H %
(11.5-14.5)
Abs Immat Gran (auto) 0.2 H 10^3/uL
(0-0.05)
Immature Gran % 2.9 H %
(0-0.5)
Carbon Dioxide 21 L mmol/L
(22-30)
BUN 5 L mg/dl
(7-17)
Creatinine 0.4 L mg/dL
(0.6-1.0)
Glucose 157 H mg/dl
(70-99)
Lactic Acid 3.0 H mmol/L
(0.7-2.0)
09/19/23 14:15
09/19/23 14:15
Vital Signs
Temp: 38.8 C
Initial and Last Documented VS:
Initial Vital Signs
Temp Pulse Resp BP Pulse Ox
37.4 C 134 18 149/103 98
09/19/23 14:02 09/19/23 14:02 09/19/23 14:02 09/19/23 14:02 09/19/23 14:02
Last Documented Vital Signs
Temp Pulse Resp BP Pulse Ox
38.8 C H 129 28 132/91 99
09/19/23 21:03 09/19/23 19:30 09/19/23 19:30 09/19/23 18:43 09/19/23 19:30
MDM/Problems Addressed
Differential Diagnosis Includes:
GJ tube issue: Dislodged tube, fistula, balloon rupture
Fever: UTI, pneumonia, viral syndrome, medication side effect, intra-abdominal infection; no signs of skin infection
MDM/Problems Addressed:
33-year-old female with extensive chronic medical issues presents for evaluation of GJ tube leakage also having persistent fevers for the past month. Tachycardic and hypertensive�she has baseline resting sinus tachycardia. Physical exam as above.
Will place IV send labs including CBC and CMP. Check urinalysis. Check chest x-ray. Sent for CT of the abdomen pelvis. Will treat pain�she is on chronic pain medications with opioid dependence. Will provide some fluids. Reassess after the
above.
Labs reviewed: CBC shows stable anemia, CMP shows no clinically significant abnormalities. Lactate was slightly elevated at 3.0 in the setting of recent dystonic episode here in the emergency room for which she was treated with Ativan. Her chest
x-ray shows no acute disease. CT of the abdomen pelvis shows appropriately placed GJ tube with inflated balloon and no signs of adjacent collection. No other acute pathology noted on CT abdomen pelvis. Patient spiked fever here to 102 �F�will
treat with Tylenol. She has no leukocytosis but she does have that slight lactate elevation which could be related to dystonic episode. She does have some mild tachypnea and tachycardia. She has chronic PICC line. Will plan to send blood
cultures, cover with antibiotics and admit for continued fevers for the past few weeks with concern for potential bacteremia. Discussed with ID for consultation. Discussed with hospitalist for admission.
Chronic conditions affecting care:
Gastroparesis, mast cell activation syndrome, sinus tachycardia
Acute Exacerbation and/or Progression of Chronic Illness:
Acutely hypertensive
*Radiology
Radiology exam reviewed: radiology read reviewed
*Pulse Oximetry
Patient hypoxic: no
*EKG
Interpreted by ED Provider?: Yes
Heart Rate: 132
Rate: tachycardiac
Rhythm: sinus
[place]: normal axis
Interval: normal interval
QRS Pattern: normal QRS
Ischemia: no ischemia
*Critical Care Note
Total Time (30-74mins, 75-104mins- exclusive of procedures): Not Applicable
Data Reviewed
Review of Other/Old Records Reveals: Labs, Records and Discharge Summary
Source: patient, records and ambulance crew
Patient Management
Discussion with other providers: Hospitalist (Discussed with hospitalist)
Escalation/DeEscalation of care consider admission/obs:
Admission indicated
ED Attending Note
-
Portions of this chart may have been created with voice recognition software.� Occasional wrong word or��sound alike� substitutions may have occurred due to the inherent limitations of voice recognition software.
Discharge Plan
Departure
Patient Disposition: Admit
Date of Disposition: 09/19/23
Time of Disposition: 21:04
Admit to doctor: Sukumar
Presentation/result/management discussed w/ accepting MD/DO: Hospitalist
Patient with high blood pressure during this ER visit?: Yes
Discharge Problem:
Fever
Instructions: How to Care for Your Gastrostomy Tube, Fever, Adult ED
Prescriptions:
No Action
propranolol 10 MG tablet
10 mg feeding tube TID
Rx Instructions:
08/30/2023, via J-Tube.
cetirizine 10 MG tablet
10 mg feeding tube BID@1700,2200
Rx Instructions:
08/30/2023, via J-Tube.
rabeprazole [AcipHex] 20 MG tablet,delayed release (DR/EC)
20 mg PO BID
diphenhydramine HCl 50 MG/ML solution
25 mg IV Q3HPRN PRN (Reason: mcas reaction/anaphylaxis/dystonia)
budesonide 0.5 MG/2 ML suspension for nebulization
0.5 mg inhalation R BID
famotidine (PF) 20 MG/2 ML solution
40 mg IV Q12H
diphenhydramine HCl 50 MG/ML solution
0 mg IV .CONTINUOUS
Patient Comments:
08/30/2023, per patient, she has a benadryl pump 15mg/ml/hr continuously.
ferrous sulfate [FeroSul] 325 MG tablet
325 mg PO HS
Nurtec ODT 75 MG tablet,disintegrating
75 mg PO DAILYPRN PRN (Reason: migraine)
thiamine HCl (vitamin B1) 100 mg Tablet
100 mg feeding tube DAILY
Rx Instructions:
08/30/2023, via J-Tube.
acetaminophen 650 mg tablet extended release
1,300 mg PO Q8H
baclofen 10 mg Tablet
10 mg feeding tube TID@0600,1400,2200
Rx Instructions:
08/30/2023, via J-Tube.
lorazepam 2 mg/mL concentrate
2 mg sublingual Q6H PRN (Reason: dystonia)
insulin lispro 100 unit/mL insulin pen
8 unit SC AC
imatinib [Gleevec] 100 mg Tablet
200 mg PO DAILY@1400
fexofenadine 180 mg Tablet
180 mg PO BID
carbidopa-levodopa [Sinemet] 25-100 mg Tablet
2 tab feeding tube BID@1400,1800
Rx Instructions:
08/30/2023, via J-Tube.
carbidopa-levodopa [Sinemet] 25-100 mg Tablet
1.5 tab feeding tube BID@0600,1000
Rx Instructions:
08/30/2023, via J-Tube.
ondansetron HCl (PF) 4 mg/2 mL Solution
4 mg IV Q6HPRN PRN (Reason: severe nausea/vomiting)
Nss
1,000 ml IV DAILY
Patient Comments:
08/30/2023, infuse 500ml/hr for 2 hours.
Nss
1,000 ml IV DAILYPRN PRN (Reason: SYMPTOMS)
Patient Comments:
08/30/2023, infuse 500ml/hr for 2 hours.
albuterol sulfate 2.5 mg /3 mL (0.083 %) solution for nebulization
2.5 mg inhalation R Q6HPRN PRN (Reason: anaphylaxis)
hydromorphone 8 mg tablet
8 mg PO Q3H PRN (Reason: severe pain)
simethicone 80 mg Tablet,Chewable
80 mg PO HS PRN (Reason: gas)
enoxaparin 100 mg/mL syringe
90 mg SC BID
buprenorphine HCl 2 mg tablet, sublingual
2 mg SUBLINGUAL QID
Patient Comments:
06/11/2023: last filled 05/16/23, 120 tabs for 30 days from [id number]
insulin glargine [Lantus Solostar U-100 Insulin] 100 unit/mL (3 mL) insulin pen
15 unit SC DAILY
calcium citrate-vitamin D3 200 mg-6.25 mcg (250 unit) Tablet
4 tab PO BID
aprepitant [Emend] 80 mg Capsule
80 mg PO DAILY
hydroxyurea 500 mg Capsule
500 mg PO BID Qty: 60 0RF
cromolyn 100 mg/5 mL Concentrate
300 mg PO QID
ketotifen fumarate 0.025 % (0.035 %) Drops
1 drp BOTH EYES BID
prednisone 5 mg Tablet
15 mg feeding tube BID
Rx Instructions:
08/30/2023, via J-Tube.
fluticasone propionate 50 mcg/actuation [place],Suspension
2 spray INTRANASAL DAILY PRN (Reason: allergies)
etonogestrel-ethinyl estradiol [NuvaRing] 0.12-0.015 mg/24 hr Ring
1 vag ring VAGINAL Q4W
Patient Comments:
08/30/2023, pt. changed on Friday (08/27/2023).
insulin lispro 100 unit/mL Insulin Pen
0 sliding scale dose SC DIRECTED
Rx Instructions:
08/30/2023, if BS 70-140= 0 units; 141-200= 1 unit; 201-250= 2 units; 251-300= 3 units; 301-350= 4 units; >351= 5 units.
cholecalciferol (vitamin D3) 1,250 mcg (50,000 unit) Capsule
1,250 mcg PO MO@0800
Ketotifen 1 mg capsule
1 mg PO BID
Patient Comments:
08/30/2023, per pt., she gets this med. specially compounded for her at [facility] in [place]. Pharmacy closed at time of interview.
Referrals:
Shannan Mendoza DO [Family Provider] - Call in 1-3 days for appt
Activity Restrictions/Additional Instructions:
Thank you for visiting the Emergency Department at [facility].
1. Please schedule a follow up appointment as directed. Call first thing tomorrow morning to make an appointment.
2. If indicated, please take your medications as instructed and indicated on discharge paperwork.
3. If any of your symptoms do not improve, or persist, or become more severe within 6-12 hours, please return to the emergency department for further care.
4. Please return to the emergency department if you develop a headache, neck pain/stiffness, fever greater than 100.4F, chest pain, shortness of breath, persistent nausea, vomiting, slurred speech, difficulty walking, numbness/tingling, weakness,
signs of infection or any other symptoms that are worrisome to you.
Please call [phone] if you have any questions.
Interventions
Interventions:
*Risk Screen - Suicide Last Done: 09/19/23 14:02
*General Assessment Last Done: 09/19/23 14:02
*Neglect/Abuse Screening Last Done: 09/19/23 14:02
*ED COVID-19 Vaccine History Last Done: 09/19/23 14:02
XW-Itrsav-Psplnyvyse Assessment Last Done: 09/19/23 15:05
ED-Female Genitourinary Assessment Last Done: 09/19/23 15:05
Discharge Date and Time
Print Language: SLOVAK
[2023-09-19] MEDS: DILAUDID 1.5 MG IV (15:55)
[2023-09-19] MEDS: ZOFRAN 4 MG IV ×2 (15:56→21:03)
[2023-09-19 16:16] LABS: Lipase 162 U/L (23-300)
[2023-09-19] MEDS: NSS 1000 IV (16:31)
[2023-09-19] MEDS: ATIVAN 1 MG IV ×2 (17:19→23:07)
[2023-09-19] MEDS: BENADRYL 25 MG IV (17:33)
[2023-09-19 18:43] VITALS: BP 132/91
--- NOTE | 2023-09-19 20:17 | VATNOTE ---
spoke with JADEN Marroquin, VAT will be notified to assess PICC line if pt. admitted.
[2023-09-19] MEDS: DILAUDID 1 MG IV (21:03)
[2023-09-19] MEDS: TYLENOL 1000 MG PO (21:03)
--- NOTE | 2023-09-19 21:09 | HPS.HSE ---
Addendum entered and electronically signed by Tino Patino DO 09/19/23 23:41:
Patient seen and examined independently. Agree with findings and plan as set forth by ASHLEY Prince.
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 Patient was last admitted here 08/29 - 09/01
for fever. She was treated with several days of ceftriaxone during that visit. No source of fever was identified and cultures during that stay were all negative.
Patient states that her fevers recurred shortly after discharge and have been intermittent since that time. She has a largely positive review of systems - but the majority of this is chronic. No specific / focal compaints that are new.
Patient notes that the PICC in her RUE has been in place for a very long time.
Ass:
Fever
Mast Cell Activation Syndrome
Chronic Pain
Chronic Narcotic Dependence
POTS
Dystonia
Steroid-Induced DM-II
Steroid-Induced Osteoporosis
GERD
Migraine Headaches
Obesity
Plan:
Admit for further evaluation and treatment.
Patient was ordered Vanco / Zosyn in the ED - but states that she cannot take Vancomycin and 'is not sure' about Zosyn.
Prior records do not indicate any antibiotic allergies.
With no apparent source of fever, will observe off of abx for now.
Follow-up culture data and follow for any new focal symptoms or complaints.
ID evaluation.
Cultures done 08/2023 were all negative (BCx x 1 set only done at that time).
Continue usual / extensive outpatient medication regimen fo control of chronic pain, dystonia and mast cell symptomatology.
Original Note:
Family Physician
-
Family Physician: Tari Mendoza,
Chief Complaint
-
fever
History of Present Illness
33-year-old female with extensive medical history of mast cell activation syndrome, tachycardia, migraine PE, GERD diabetes anxiety and depression posterior orthostatic tachycardia syndrome asthma chronic pain presented to us with fever since the
discharge. Patient was discharged on oral antibiotics. 2 days after she started having fever again. she is complaining of generalized achiness. complained of dizziness. she stated sob, worse with exertion. she uses 3l oxygen. her oxygen dipped to
80's and her oxygen was increased to 4l. denied chest pain. stated CONTI. denied syncopal episode. her abdomen distended more than usual. she noticed more than usual drainage in her G tube. complained of nausea, vomited once. denied diarrhea. denied
runny nose, congestion, cough. denied dysuria or hematuria.
fever of 102,tachycardic. patient initiated on vanco and Zosyn. admitting for further management.
Medical History
Past Medical History
Past Medical History: Reports Other
Additional Past Medical History:
mast cell activation syndrome
tachycardia
migraine
MIKAL
orthostatic hypotension
PE
GERD
DM
anxiety
depression
HLD
Past Surgical History: Reports Other
Additional Past Surgical History:
tonsillectomy
wisdom tooth extraction
GJ tube placement
Social History
Tobacco: Non-smoker
Alcohol: None
Drug: None
Family History
Family History: Not pertinent
Allergies / Home Medications
Allergies reflects when Allergies were last updated in [facility].
Home Medications with original date entered in [facility]
Allergy/Medication List:
Allergies
Allergy/AdvReac Type Severity Reaction Status Date / Time
dog dander Allergy Unknown Verified 09/19/23 14:17
escitalopram [From Lexapro] Allergy Unknown Verified 09/19/23 14:17
gabapentin Allergy Unknown Verified 09/19/23 14:17
gluten Allergy Unknown Verified 09/19/23 14:17
grass pollen Allergy Unknown Verified 09/19/23 14:17
house dust Allergy Unknown Verified 09/19/23 14:17
ibuprofen Allergy 'not Verified 09/19/23 14:17
supposed
to take
d/t
proteinuria'
Iodinated Contrast Media Allergy Unknown Verified 09/19/23 18:06
lactose Allergy Nausea / Verified 09/19/23 14:17
Vomiting
lamotrigine [From Lamictal] Allergy Unknown Verified 09/19/23 14:17
mold Allergy Unknown Verified 09/19/23 14:17
montelukast [From Singulair] Allergy Unknown Verified 09/19/23 14:17
nortriptyline Allergy Tachycardia Verified 09/19/23 14:17
peanut Allergy Anaphylaxis Verified 09/19/23 14:17
soy Allergy Unknown Verified 09/19/23 14:17
topiramate [From Topamax] Allergy Unknown Verified 09/19/23 14:17
tree and shrub pollen Allergy Unknown Verified 09/19/23 14:17
weed pollen Allergy Unknown Verified 09/19/23 14:17
Home Medications
propranolol 10 mg tablet 10 mg feeding tube TID Heart disease/condition 04/16/15
cetirizine 10 mg tablet 10 mg feeding tube BID@1700,2200 Allergies 11/03/20
budesonide 0.5 mg/2 mL suspension for nebulization 0.5 mg inhalation R BID Lung/breathing issues 09/27/21
diphenhydramine HCl 50 mg/mL injection solution 0 mg IV .CONTINUOUS Allergies 09/27/21
diphenhydramine HCl 50 mg/mL injection solution 25 mg IV Q3HPRN PRN mcas reaction/anaphylaxis/dystonia 09/27/21
famotidine (PF) 20 mg/2 mL intravenous solution 40 mg IV Q12H Gastrointestinal issue 09/27/21
rabeprazole 20 mg tablet,delayed release (AcipHex) 20 mg PO BID Gastrointestinal issue 09/27/21
ferrous sulfate 325 mg (65 mg iron) tablet (FeroSul) 325 mg PO HS Supplement 10/02/21
rimegepant 75 mg disintegrating tablet (Nurtec ODT) 75 mg PO DAILYPRN PRN migraine 10/02/21
acetaminophen 650 mg tablet,extended release 1,300 mg PO Q8HPRN PRN mild pain 05/13/22
baclofen 10 mg tablet 10 mg feeding tube TID@0600,1400,2200 Muscle Spasms 05/13/22
imatinib 100 mg tablet (Gleevec) 200 mg PO DAILY@1400 [facility]AS 05/13/22
insulin lispro 100 unit/mL subcutaneous pen 8 unit SC AC Diabetes 05/13/22
lorazepam 2 mg/mL oral concentrate 2 mg sublingual Q6H PRN dystonia 05/13/22
thiamine HCl (vitamin B1) 100 mg tablet 100 mg feeding tube DAILY Supplement 05/13/22
fexofenadine 180 mg tablet 180 mg PO BID Allergies 06/18/22
carbidopa 25 mg-levodopa 100 mg tablet (Sinemet) 1.5 tab feeding tube BID@0600,1000 DYSTONIA 08/17/22
carbidopa 25 mg-levodopa 100 mg tablet (Sinemet) 2 tab feeding tube BID@1400,1800 DYSTONIA 08/17/22
ondansetron HCl (PF) 4 mg/2 mL injection solution 4 mg IV Q6HPRN PRN severe nausea/vomiting 02/11/23
albuterol sulfate 2.5 mg/3 mL (0.083 %) solution for nebulization 2.5 mg inhalation R Q6HPRN PRN anaphylaxis 06/11/23
buprenorphine HCl 2 mg sublingual tablet 2 mg sublingual QID Pain 06/11/23
calcium citrate 200 mg calcium-vitamin D3 6.25 mcg (250 unit) tablet 4 tab PO BID Supplement 06/11/23
enoxaparin 100 mg/mL subcutaneous syringe 100 mg SC BID Blood Clot Prevention/Tx 06/11/23
hydromorphone 8 mg tablet 8 mg PO Q3HPRN PRN severe pain 06/11/23
insulin glargine 100 unit/mL (3 mL) subcutaneous pen (Lantus Solostar U-100 Insulin) 15 unit SC DAILY Diabetes 06/11/23
simethicone 80 mg chewable tablet 80 mg PO HS PRN gas 06/11/23
aprepitant 80 mg capsule (Emend) 80 mg PO DAILY MCAS 06/23/23
hydroxyurea 500 mg capsule 500 mg PO BID #60 caps 07/02/23
Ketotifen 1 mg PO BID Allergies 08/30/23
cholecalciferol (vitamin D3) 1,250 mcg (50,000 unit) capsule 1,250 mcg PO MO@0800 Supplement 08/30/23
cromolyn 100 mg/5 mL oral concentrate 300 mg PO QID Allergies 08/30/23
etonogestrel 0.12 mg-ethinyl estradiol 0.015 mg/24 hr vaginal ring (NuvaRing) 1 vag ring vaginal Q4W control 08/30/23
fluticasone propionate 50 mcg/actuation nasal spray,suspension 2 spray intranasal DAILY PRN allergies 08/30/23
insulin lispro 100 unit/mL subcutaneous pen 0 sliding scale dose SC DIRECTED Diabetes 08/30/23
ketotifen fumarate 0.025 % (0.035 %) eye drops 1 drp BOTH EYES BID Eye Condition 08/30/23
prednisone 5 mg tablet 10 mg feeding tube BID Anti-Inflammatory 08/30/23
Review of Systems
-
EENT: Reports No Symptoms
Respiratory: Reports Trouble Breathing
Cardiac: Reports No Symptoms
Abdomen/GI: Reports Nausea
: Reports No Symptoms
Musculoskeletal: Reports Joint Pain and Muscle Pain
Skin: Reports No Symptoms
Neurological: Reports No Symptoms, Dizzy and Headache
Endocrine: Reports No Symptoms
Hematologic/Lymphatic: Reports No Symptoms
Psych: Reports No Symptoms
Physical Exam
Vital Signs
Vital Signs
Temp Pulse Resp BP Pulse Ox
102 F H 129 28 132/91 99
09/19/23 21:03 09/19/23 19:30 09/19/23 19:30 09/19/23 18:43 09/19/23 19:30
Physical Exam
General: Well Developed, Well Nourished and No Apparent Distress
HEENT: NormoCephalic, Moist mucous membranes and Atraumatic
Respiratory: Clear
Cardiac: S1/S2 and Regular Rhythm; No Murmur or Rub
GI: Soft, Non Tender, Normal Bowel Sounds, Distended and Other (gj tube); No Organomegaly
Rectal: Deferred by Provider
Musculoskeletal: No Clubbing, No Cyanosis and No Edema
Skin: No Rash
Neuro: AO x 3 and Nonfocal/grossly intact
Laboratory Results
-
09/19/23 14:15
09/19/23 14:15
Laboratory Results
Lactic Acid 3.0 mmol/L (0.7-2.0) H 09/19/23 14:15
Total Bilirubin 0.5 mg/dl (0.2-1.3) 09/19/23 14:15
AST 26 U/L (14-36) 09/19/23 14:15
ALT 12 U/L (0-35) 09/19/23 14:15
Alkaline Phosphatase 97 U/L (38-126) 09/19/23 14:15
Lipase 162 U/L (23-300) 09/19/23 14:15
Data Reviewed
-
CT Scan: Report Reviewed by me
Lab Data: Labs Reviewed by me
Impression/Plan
-
#fever unclear etiology
-#sepsis as evident by tachycardia, fever
-CT abdomen pelvis with GJ tube balloon is in the stomach, no findings to suggest a fluid collection in the adjacent subcutaneous tissues adjacent to the entrance of the tubing. The distal tubing is within the nondilated jejunum.
-chest x ray with Hypoaerated lungs without consolidation.
-blood culture from picc line ordered
-UA pending
-hold abx until evaluated by ID
#Chronic PICC line
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
#Mast Cell Activation Syndrome
#DOPA-Responsive Dystonia
-follows with Dr. Lizabeth Villanueva at [facility] hematology.
- Continue Ativan / Benadryl (pump)
�-cont Gleevac
�--Levalbuterol as needed, to do her eyedrops
-Continue carbidopa levodopa
-prednisone continued
-Consult HEME
#GERD
-famotidine continued
-acipHex continued
-simethicone continued
#iron def anemia
-ferrous sulfate continued
#hxt of tachycardia
-EKG with sinus tachycardia
-propranolol continued
#Chronic Nausea / Esophageal Dysmotility/gastroparesis
#History GJ tube
�- Continue diet as tolerated.
�- Continue G-tube to gravity for chronic nausea.
�- Meds via J-tube.
-Zofran every 8 hours as needed
-Continue Pepcid
-emend continued
#muscle spasms/dystonia
-baclofen continued
-sinemet continued
�
#Steroid-Induced DM-II
�- Continue basal insulin and add SSI coverage as needed.
�- Check A1C.
-lantus 15u daily
-lispro 8u before meals
#Steroid-Induced Osteoporosis
#Chronic Pain Syndrome secondary to the above on chronic opiates
�- Continue buprenorphine 2 mg 4 times daily , Dilaudid 8 mg as needed
�- PT / OT evaluations.
�- Follow-up with usual client resource specialist after discharge.
#allergy induced asthma
#chornic hypoxic respiratory failure
-albuterol continued
-budesonide continued
-cetirizine continued
-cromolyn continued
#Migraine Hx
ODT Nurtec as needed
#Restless leg syndrome
-Continue baclofen
#History of DVT / PE
#Takes subcu Lovenox 100 mg twice daily
DNR
[2023-09-19] MEDS: DELTASONE 10 MG PO (21:44)
[2023-09-19 22:33] LABS: Lactic Acid 1.6 mmol/L (0.7-2.0)
[2023-09-19 22:45] LABS: COVID-19 Antigen Negative (Negative)
[2023-09-19 23:20] VITALS: BP 158/79
--- NOTE | 2023-09-19 23:55 | PTCARENOTE ---
2320- received pt from ED via stretcher w/ belongings. Telemetry order> Sinus Tachycardia on monitor- strip placed in pt chart. [id number].
T100.4 RR20, BP158/79, pox 96% 4LNC (pt on 3LNC at home) Pt c/o chronic pain throughout body.
Gtube draining to gravity-> balderrama bag. Jtube accessible for medications.
RUE restriction for chronic tripple lumen PICC w/ Benadryl infusing 15mg/per. Pt prefers lab work to be drawn peripheral d/t infusion. IVF administered and infusing LFA at 80ml/hr. Pt w/ insulin pump to LUE- glucose log provided.
PMH and medications reviewed by this RN and pt. Pt requested Hydromorphone to be switched to IV, and additional Ativan (IV) w/ SL. This RN discussed with House LOG RAFTER and requests are not warranted at this time.
Pt provided bed bath w/ wipes.
Pt oriented to room. Call sanchez within reach.
[2023-09-20] MEDS: NSS 1000 IV ×2 (00:05→15:06)
[2023-09-20] MEDS: TYLENOL 650 MG PO ×3 (01:02→23:23)
[2023-09-20] MEDS: FEOSOL 325 MG PO ×2 (01:02→21:01)
[2023-09-20] MEDS: PEPCID 40 MG IV ×3 (01:03→23:32)
[2023-09-20] MEDS: LIORESAL 10 MG TUBE ×4 (01:03→21:01)
[2023-09-20] MEDS: SUBUTEX 2 MG SL ×5 (01:03→21:01)
[2023-09-20] MEDS: ZYRTEC 10 MG TUBE ×3 (01:03→21:01)
[2023-09-20] MEDS: INDERAL 10 MG TUBE ×4 (01:14→21:00)
[2023-09-20] MEDS: GASTROCROM 300 MG PO ×5 (01:15→21:08)
[2023-09-20] MEDS: NSS (PRESERVATIVE FREE) 16 ML IV ×2 (01:17→11:21)
[2023-09-20 03:00] VITALS: BP 112/68
[2023-09-20] MEDS: SINEMET 25-100 1.5 TABLET TUBE ×2 (06:38→09:11)
[2023-09-20 07:06] LABS: Hematocrit 31.5 % (37.0-47.0); Hemoglobin 10.2 g/dL (12.0-16.0); Mean Corp Hgb Conc. 32.4 g/dL (33.0-37.0); Mean Corpuscular Hgb 35.3 pg (27.0-31.0); Mean Platelet Volume 8.9 fL (7.4-10.4); Platelet Count 207 10^3/uL (130-400); Red Blood Cell Count 2.89 10^6/uL (4.20-5.40); Red Cell Dist. Width 17.2 % (11.5-14.5); White Blood Cell Count 6.2 10^3/uL (4.8-10.8)
[2023-09-20 07:25] VITALS: BP 113/78
[2023-09-20 07:31] LABS: Blood Urea Nitrogen 3 mg/dl (7-17); Calcium 8.6 mg/dl (8.4-10.2); Carbon Dioxide 26 mmol/L (22-30); Chloride 104 mmol/L (98-107); Estimated Creatinine Clearance > 125 ml/min; Glucose 130 mg/dl (70-99); Potassium 3.5 mmol/L (3.5-5.1); Sodium 136 mmol/L (135-145); eGFR > 60.00
[2023-09-20 08:00] LABS: Glucose - Point of Care 143 mg/dl (70-99)
[2023-09-20] MEDS: PULMICORT 0.5 MG INH ×2 (08:00→18:07)
[2023-09-20] MEDS: LOVENOX 100 MG SC ×2 (09:08→20:58)
[2023-09-20] MEDS: VITAMIN B1 100 MG TUBE (09:09)
[2023-09-20] MEDS: PROTONIX 40 MG PO ×2 (09:09→20:59)
[2023-09-20] MEDS: DELTASONE 10 MG TUBE ×2 (09:09→20:56)
[2023-09-20] MEDS: CLARITIN 10 MG PO (09:09)
[2023-09-20] MEDS: ZOFRAN 4 MG IV ×2 (09:12→23:22)
[2023-09-20] MEDS: ZADITOR 1 DROP BOTH EYES ×2 (09:12→21:00)
[2023-09-20] MEDS: BENADRYL 25 MG IV ×3 (09:15→17:55)
--- NOTE | 2023-09-20 09:29 | W.PN.HOSP.TC ---
Today's Communication/Plan
-
Follow culture data. ID input pending.
Continue with her home regimen of medication
Assessment / Plan
Assessment / Plan
#fever unclear etiology
-#sepsis as evident by tachycardia, fever
-CT abdomen pelvis with GJ tube balloon is in the stomach, no findings to suggest a fluid collection in the adjacent subcutaneous tissues adjacent to the entrance of the tubing. The distal tubing is within the nondilated jejunum.
-chest x ray with Hypoaerated lungs without consolidation.
-blood culture from picc line ordered
-UA pending
-hold abx until evaluated by ID
#Chronic PICC line
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
#Mast Cell Activation Syndrome
#DOPA-Responsive Dystonia
-follows with Dr. Lizabeth Villanueva at [facility] hematology.
- Continue Ativan / Benadryl (pump)
�-cont Gleevac
�--Levalbuterol as needed, to do her eyedrops
-Continue carbidopa levodopa
-prednisone continued
-Consult HEME if no obvious infectious foci and persistent fever
#GERD
-famotidine continued
-acipHex continued
-simethicone continued
#iron def anemia
-ferrous sulfate continued
#hxt of tachycardia
-EKG with sinus tachycardia
-propranolol continued
#Chronic Nausea / Esophageal Dysmotility/gastroparesis
#History GJ tube
�- Continue diet as tolerated.
�- Continue G-tube to gravity for chronic nausea.
�- Meds via J-tube.
-Zofran every 8 hours as needed
-Continue Pepcid
-emend continued
#muscle spasms/dystonia
-baclofen continued
-sinemet continued
�
#Steroid-Induced DM-II
�- Continue basal insulin and add SSI coverage as needed.
�- Check A1C.
-lantus 15u daily
-lispro 8u before meals
#Steroid-Induced Osteoporosis
#Chronic Pain Syndrome secondary to the above on chronic opiates
�- Continue buprenorphine 2 mg 4 times daily , Dilaudid 8 mg as needed
�- PT / OT evaluations.
�- Follow-up with usual emergency medicine specialist after discharge.
#allergy induced asthma
#chornic hypoxic respiratory failure
-albuterol continued
-budesonide continued
-cetirizine continued
-cromolyn continued
#Migraine Hx
ODT Nurtec as needed
#Restless leg syndrome
-Continue baclofen
#History of DVT / PE
#Takes subcu Lovenox 100 mg twice daily
DNR
Anticipated Discharge: > 48 hours
Subjective/Interval History
-
Date of Service: September 20, 2023
Patient had an acute dystonia reaction this morning and received IV Ativan and patient says she is currently feeling okay.
She was noticing some drainage from her ostomy site. It is painful and tender around ostomy site.
Objective Data
-
Labs:
Laboratory Results
09/20/23
05:32
WBC 6.2
Hgb 10.2 L
Hct 31.5 L
Plt Count 207 D
Sodium 136
Potassium 3.5
Chloride 104
Carbon Dioxide 26
BUN 3 L
Creatinine 0.4 L
Glucose 130 H
Calcium 8.6
Vital Signs:
Vital Signs
Temp Pulse Resp BP Pulse Ox
98.9 F 120 18 113/78 96
09/20/23 07:25 09/20/23 08:04 09/20/23 08:04 09/20/23 07:25 09/20/23 08:04
I&O
09/19/23 09/20/23 09/21/23
06:59 06:59 06:59
Intake Total 1040 / 1040
Balance 1040 / 1040
Review of Systems
-
Constitutional: Reports Fever
EENT: Denies Sore Throat
Respiratory: Denies Cough or Trouble Breathing
Cardiac: Denies Chest Pain
Genitourinary: Denies Dysuria
Neuro: Denies Dizzy
Physical Exam
-
General: No Apparent Distress
HEENT: Moist Mucous Membranes
Respiratory: Clear to Auscultation
Cardiac: Regular Rhythm and S1/S2
GI: Soft and Tender (Tenderness around the PEG tube site. No surrounding cellulitis but there is thick mucousy discharge from the PEG tube site.)
Neuro: AO x 3
Psych: Calm
Data Reviewed
-
Labs: Labs Reviewed by me
[2023-09-20] MEDS: ATIVAN 2 MG IV (09:35)
[2023-09-20] MEDS: NOVOLOG FLEXPEN-LOW RESISTANCE SC ×3 (09:35→18:21)
--- NOTE | 2023-09-20 09:35 | VATNOTE ---
Pt actively having a dystonic reaction, PCN at the bedside. Offered to pull rescue meds out of the Pyxis for pt: 25 mg benadryl IV, and 2 mg ativan IV per PCN. No order for ativan in Py[facility]. Medication overridden to have available at the bedside as
it is a usual order for pt. Order in [facility] is written sublingual which is not stocked in the Pyxis. Dr. Acevedo contacted by PCN for order for 2 mg IV ativan, which was ordered. Pharmacy contacted to verify medication. Ativan given as ordered by this RN
after medication ordered and verified.
[2023-09-20] MEDS: HYDREA 500 MG PO ×2 (09:36→20:57)
[2023-09-20] MEDS: LANTUS 0.15 UNITS SC (09:41)
[2023-09-20] MEDS: NOVOLOG FLEXPEN 8 UNITS SC ×3 (11:17→18:42)
[2023-09-20 11:32] VITALS: BP 121/87
[2023-09-20] MEDS: BENADRYL 250 MG IV (11:39)
[2023-09-20] MEDS: DILAUDID 1 MG IV ×3 (11:43→21:10)
[2023-09-20] MEDS: FLUSH (NSS) 2 FLUSH IV (11:44)
[2023-09-20] MEDS: NON-FORMULARY ITEM 80 MG PO (12:26)
[2023-09-20] MEDS: NON-FORMULARY ITEM 1 MG PO ×2 (12:27→21:03)
--- NOTE | 2023-09-20 13:15 | CON.ID ---
Consultation
-
Date/Time Consultation Requested: 09/19/23 21:07
Date/Time Consultation Performed: 09/19/23 13:16
Requesting Provider: Dr Clark
Performing Provider: Dr Hill
Reason for Consultation: fever
Chief Complaint / Past History
Chief Complaint
fever, headache
History of Present Illness
Ms Ontiveros is a 33 year old female with diagnosis of Mast Cell activation syndrom on chronic benadryl pump, dystonia who presented here last night for fever, headache, diffuse pain and malaise. Reports intermittent fevers without specific
complaints. No deiarrhea, congestion, cough, dysuria or hematuria. Vomited x1. Unsure when PICC last exchanged - believes its been about 1 year; 2/3 lumens functional one described as sluggish. Reports shes been on gleevec around 2 years
Since arrival here febrile to 102 orally, bp stable, tachycardic, wbc 6s.9 on arrival and 6.2 today, hgb 10, plt 207, no L shift, cr 0.4, lactic acid initially 3 now 1.6, t bili 0.5, ast 26, alt 12, alk phos 97, covid ag neg, CT a/p: Gt tube in
place with abscess, CXR: PICC in place, no consolidation, flu neg, blood cultures x2 two seperate draws no growth to date, currently observing off of antibiotics
Past History
Additional Past Medical History:
Fever
Mast Cell Activation Syndrome
Chronic Pain
Chronic Narcotic Dependence
POTS
Dystonia
Steroid-Induced DM-II
Steroid-Induced Osteoporosis
GERD
Migraine Headaches
Obesity
Additional Past Surgical History:
tonsillectomy
wisdom tooth extraction
GJ tube placement
Allergy History:
azithromycin Allergy (Verified 09/19/23 21:51)
Unknown
cefepime Allergy (Verified 09/19/23 21:51)
Unknown
dog dander Allergy (Verified 09/19/23 14:17)
Unknown
erythromycin base Allergy (Verified 09/19/23 21:51)
Unknown
escitalopram [From Lexapro] Allergy (Verified 09/19/23 14:17)
Unknown
gabapentin Allergy (Verified 09/19/23 14:17)
Unknown
gluten Allergy (Verified 09/19/23 14:17)
Unknown
grass pollen Allergy (Verified 09/19/23 14:17)
Unknown
house dust Allergy (Verified 09/19/23 14:17)
Unknown
ibuprofen Allergy (Verified 09/19/23 14:17)
'not supposed to take d/t proteinuria'
Iodinated Contrast Media Allergy (Verified 09/19/23 18:06)
Unknown
lactose Allergy (Verified 09/19/23 14:17)
Nausea / Vomiting
lamotrigine [From Lamictal] Allergy (Verified 09/19/23 14:17)
Unknown
mold Allergy (Verified 09/19/23 14:17)
Unknown
montelukast [From Singulair] Allergy (Verified 09/19/23 14:17)
Unknown
nortriptyline Allergy (Verified 09/19/23 14:17)
Tachycardia
peanut Allergy (Verified 09/19/23 14:17)
Anaphylaxis
soy Allergy (Verified 09/19/23 14:17)
Unknown
topiramate [From Topamax] Allergy (Verified 09/19/23 14:17)
Unknown
tree and shrub pollen Allergy (Verified 09/19/23 14:17)
Unknown
vancomycin Allergy (Verified 09/19/23 21:51)
Unknown
weed pollen Allergy (Verified 09/19/23 14:17)
Unknown
Medications Reviewed: Yes
Social History
Tobacco: Non-Smoker
Alcohol: None
Drug: None
Family History
Family History: Not Pertinent
Review of Systems
Review of Systems
General: Fever
All systems: All other systems were reviewed and were negative
Vital Signs
Temp Pulse Resp BP Pulse Ox
98.8 F 125 20 121/87 98
09/20/23 11:32 09/20/23 11:32 09/20/23 11:32 09/20/23 11:32 09/20/23 11:32
Physical Exam
Physical Exam
Constitutional: No Acute Distress
Cardiovascular: Regular Rate and S1/S2; Negative Murmur or Rub
Pulmonary: Clear and Symmetric; Negative Wheezes, Rales or Rhonchi
Gastrointestinal: Soft, Non Tender, Non Distended and Normal Bowel Sounds
Skin: Warm and Dry; Negative Rash or Jaundice
Lines: PICC (no erythema, warmth, tenderness or drainage) and Other (G tube - no erythema, warmth tenderness; minimal mucoid appearing drainage around the tube)
Lab / Diagnostic Study Results
09/20/23 05:32
09/20/23 05:32
Abs Immat Gran (auto) 0.2 10^3/uL (0-0.05) H 09/19/23 14:15
Absolute Neuts (auto) 4.9 10^3/uL (1.4-6.5) 09/19/23 14:15
Absolute Lymphs (auto) 1.4 10^3/uL (1.2-3.4) 09/19/23 14:15
Absolute Monos (auto) 0.3 10^3/uL (0.1-0.6) 09/19/23 14:15
Absolute Basos (auto) 0.0 10^3/uL (0-0.2) 09/19/23 14:15
Immature Gran % 2.9 % (0-0.5) H 09/19/23 14:15
Neutrophils % 71.4 % (42.2-75.2) 09/19/23 14:15
Lymphocytes % 21.0 % (20.5-51.1) 09/19/23 14:15
Monocytes % 4.2 % (1.7-9.3) 09/19/23 14:15
Eosinophils % 0.1 % (0-6) 09/19/23 14:15
Basophils % 0.4 % (0-2) 09/19/23 14:15
Lactic Acid 1.6 mmol/L (0.7-2.0) 09/19/23 22:10
Microbiology Results
Micro:
09/19/23 22:10 Influenza Types A & B (KENNETH) - Final
Nasal Swab Negative for Influenza A & B, NAAT
Negative results must be combined with clinical observations
and patient history.
Nucleic Acid Amplification test (NAAT)performed on the
[employer] platform.
09/19/23 22:10 Blood Culture - Pending
Blood/Venous
09/19/23 14:15 Blood Culture - Pending
Blood/Venous
Assessment / Plan
Fever
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
Gastroparesis
Numerous stated allergies - none to antibiotics
PICC in place
Dystonia
- note chronic steroids, gleevec
- fever described in up to 41% of patients taking gleevec; managed by Dr Villanueva [facility]
- blood cultures x2 in progress, done at different times
- PICC line without evidence of infection, if ongoing fevers may remove and replace; it will remain under the perview of Dr Villanueva managing her chronic benadryl pump
- CXR without infiltrates
- covid/flu negative
- check hep B serologies
- minimal mucous drainage around the g tube, no erythema, warmth or tenderness; CT without abscess or cellulitis, no evidence of cellulitis on exam
- agree with observing clinically off of systemic antibiotics at this time
[2023-09-20] MEDS: ATIVAN 1 MG IV ×2 (14:23→20:49)
--- NOTE | 2023-09-20 14:35 | CM ---
CM following re: discharger planning.
Reviewed pt's chart, met with pt.
Pt is a 33 year old female, admitted with primary dx of fever.
Pt is well known to this CM from previous admission. pt lives with mother in a 2SH, has 1st floor set up, father lives in a different home. Pt has been assisted with ADLs (bathing dressing) by her /7 caregivers from [facility].
She used to ambulate short distances only with her rollator wearing her back brace, and states she mostly uses her w/c. Pt has following DME: hospital bed, Rollator, Steel Back brace, SPC, w/c, raised toilet seat, shower chair, commode, CPAP,
nebulizer, O2 concentrator/portables through [employer].
[facility] provides home infusion therapy. Pt has continuous pump for Benadryl as well as rescue doses of Benadryl
[facility] administers IV saline, iV famotidine, IV solumedrol, IV Zofran
Pt preferred to continue living at home with 24/7 caregiver services provided by [facility], [facility] and family support. Pt's mother seems overwhelmed.
D/C plan: uncertain at this time and will depend on pt's progress
CM will follow with discharge plan updates as hospitalization progresses
[2023-09-20 14:53] LABS: Glucose - Point of Care 131 mg/dl (70-99)
[2023-09-20] MEDS: SINEMET 25-100 2 TABLET TUBE ×2 (15:00→18:00)
[2023-09-20] MEDS: NON-FORMULARY ITEM 200 MG PO (15:26)
[2023-09-20 15:45] VITALS: BP 112/71
[2023-09-20] MEDS: BACTROBAN 2% OINTMENT 1 APPLIC TOPICAL ×2 (15:59→21:09)
[2023-09-20 18:20] LABS: Glucose - Point of Care 123 mg/dl (70-99)
--- NOTE | 2023-09-20 18:35 | W.PN.UPDATE ---
Update Note
Progress Note Update
Asked by attending of record to evaluate the pt given there was concern that pt was having a dystonic episode.
Pt seen and examined.
She is AOX3, conversant. In the beginning of the conversation, she had her hands clasps, but about 10 min into the conversation, she was able to unclasp her hands and was moving her head.
She was clearly emotional/anxious after I mentioned that she should consider going to a tertiary center in the future.
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
Agree with attending of record for upgrade to IMU for closer monitoring and better RN to patient ratio. Agree with Neurology CS.
RN updated
total time spent 20 min
[2023-09-20 19:26] VITALS: BP 135/85
--- NOTE | 2023-09-20 19:45 | PTCARENOTE ---
pt had Dystonia episodes x 3 this shift, she gets very contracted during epidsodes, clamped hands and shaking, MD made aware, IV Ativan and IV Benadryl given for episodes as ordered, she was switched from home Benadryl pump to continuous IV benadryl
at 15 ml/hr while in the hospital. MD placing transfer orders for IMU level of care.
--- NOTE | 2023-09-20 20:10 | W.PN.UPDATE ---
Update Note
Progress Note Update
Received a call from Dr. Lazcano/ Hematology at [facility] as the patient had blood culture done and result is positive for gram neg rods. Patient had blood culturex2 drawn yesterday and result is pending. Patient is followed by ID. Currently
patient is afebrile will update the team in am.
[2023-09-20] MEDS: NSS (PRESERVATIVE FREE) IV (21:10)
[2023-09-20 21:41] LABS: Glucose - Point of Care 101 mg/dl (70-99)
--- NOTE | 2023-09-20 23:00 | PTCARENOTE ---
Pt being transferred to IMU as per order, report given to receiving nurse. IV benadryl and IVF's running. All belongings and pt's own medications sent with pt.
[2023-09-20 23:16] VITALS: BP 151/93
--- NOTE | 2023-09-20 23:16 | PTCARENOTE ---
Pt transferred to IMU from . [facility]. IVF & Benadryl running. ST on monitor, on RA. Lungs clear. Pale. BP slightly elevated. Pt requesting zofran & tylenol. Will continue to monitor.
[2023-09-20 23:18] VITALS: BMI 37.5
[2023-09-21] VITALS (12 sets, daily range): BP systolic 107–166; BP diastolic 62–116; BMI 37.5
[2023-09-21] MEDS: NSS 1000 IV ×2 (03:25→16:40)
[2023-09-21] MEDS: BENADRYL 250 MG IV ×2 (03:25→19:53)
[2023-09-21] MEDS: DILAUDID 1 MG IV ×4 (04:53→20:22)
[2023-09-21 05:01] LABS: Hematocrit 30.7 % (37.0-47.0); Hemoglobin 10.2 g/dL (12.0-16.0); Mean Corp Hgb Conc. 33.2 g/dL (33.0-37.0); Mean Corpuscular Hgb 35.2 pg (27.0-31.0); Mean Corpuscular Volume 105.9 fL (81.0-99.0); Mean Platelet Volume 8.8 fL (7.4-10.4); Platelet Count 209 10^3/uL (130-400); Red Cell Dist. Width 16.7 % (11.5-14.5); White Blood Cell Count 7.2 10^3/uL (4.8-10.8)
[2023-09-21 05:27] LABS: Blood Urea Nitrogen 7 mg/dl (7-17); Calcium 8.8 mg/dl (8.4-10.2); Carbon Dioxide 27 mmol/L (22-30); Chloride 105 mmol/L (98-107); Estimated Creatinine Clearance > 125 ml/min; Glucose 128 mg/dl (70-99); Potassium 3.9 mmol/L (3.5-5.1); Sodium 137 mmol/L (135-145); eGFR > 60.00
[2023-09-21 05:56] LABS: Hepatitis B Surface Antigen Negative (Negative)
[2023-09-21] MEDS: ATIVAN 1 MG IV ×3 (05:56→20:15)
[2023-09-21] MEDS: BENADRYL 25 MG IV ×4 (05:58→20:16)
[2023-09-21] MEDS: SINEMET 25-100 1.5 TABLET TUBE ×2 (06:02→10:26)
[2023-09-21] MEDS: LIORESAL 10 MG TUBE ×3 (06:02→21:58)
[2023-09-21 06:14] LABS: Hepatitis B Core Ab, Total Negative (Negative); Hepatitis B Surface Antibody Negative
--- NOTE | 2023-09-21 06:26 | PTCARENOTE ---
Pt had dystonia attack this am. prn ativan & benadryl given with improvement. VSS
[2023-09-21] MEDS: PULMICORT 0.5 MG INH ×2 (07:29→19:24)
[2023-09-21] MEDS: NON-FORMULARY ITEM 80 MG PO (07:51)
[2023-09-21] MEDS: BACTROBAN 2% OINTMENT 1 APPLIC TOPICAL ×3 (07:52→22:05)
[2023-09-21] MEDS: DELTASONE 10 MG TUBE ×2 (07:55→19:53)
[2023-09-21] MEDS: VITAMIN B1 100 MG TUBE (07:56)
[2023-09-21] MEDS: CLARITIN 10 MG PO (07:57)
[2023-09-21] MEDS: SUBUTEX 2 MG SL ×4 (07:58→21:59)
[2023-09-21] MEDS: PROTONIX 40 MG PO ×2 (07:58→19:54)
[2023-09-21] MEDS: HYDREA 500 MG PO ×2 (07:58→19:54)
[2023-09-21] MEDS: NSS (PRESERVATIVE FREE) IV ×2 (07:59→19:59)
[2023-09-21] MEDS: NON-FORMULARY ITEM 1 MG PO ×2 (08:00→19:58)
[2023-09-21] MEDS: ZADITOR 1 DROP BOTH EYES ×2 (08:00→20:00)
[2023-09-21] MEDS: DESENEX/MITRAZOL/ZEASORB 1 APPLIC TOPICAL ×2 (08:02→19:54)
[2023-09-21] MEDS: LOVENOX 100 MG SC ×2 (08:03→19:54)
[2023-09-21] MEDS: INDERAL 10 MG TUBE ×3 (08:26→21:58)
[2023-09-21] MEDS: LANTUS 0.15 UNITS SC (08:28)
[2023-09-21] MEDS: NOVOLOG FLEXPEN-LOW RESISTANCE SC (08:29)
[2023-09-21] MEDS: NOVOLOG FLEXPEN 8 UNITS SC ×3 (08:29→16:41)
[2023-09-21] MEDS: GASTROCROM 300 MG PO ×4 (08:30→22:00)
[2023-09-21 08:39] LABS: Glucose - Point of Care 106 mg/dl (70-99)
--- NOTE | 2023-09-21 08:52 | CON.NEURO ---
Neuro Assessment/Plan
Assessment
IMPRESSIONS/RECOMMENDATIONS:
Abrupt worsening of symptoms in form of dystonic reactions, described by patient as unchanged from usual baseline
Plan
continue usual therapies
consider transfer to [facility] for additional evaluations
attempt to reduce dosing of steroids due to Cushingoid response
Will continue to follow patient as needed. Thank you.
Consultation
Order
Date of Consultation: 09/21/23
Requesting Provider: Hospitalist
Reason for Consult: Dystonia
Subjective/Objective
Subjective Data
Date of Service: September 21, 2023
Adapted from my note on 02/2022
History of Present Illness
Parkinsons Disease:
Dystonia
Since last visit:
02/2022
Hospitalized for mast cell problem leading to anaphylaxis and dystonic attacks then ICU then sgtep-down ICU at local hospital. Received continuous Diphenydramine infusion.
Also experiencing swallowing difficulty
Received G and J tube drainage. OK eating by mouth now.
Receiving Prednisone leading to osteoporosis with compression fractures
More dystonic attacks with Clonazepam with extra Lorazepam and Diphenyhdramine
Increased CD/LD to 4 tabs
Then COVID with DVT formations (re-hospitalized)
Bedridden recently
Increased cholesterol with Rosuvastatin started
Began (prior to initial evaluation in this office):
07/2021
2015 began to have dystonic attacks (later diagnosed as same), described as episodes of abrupt shaking with eyes rolling back requiring multiple presentations to this hospital's emergency department. Prior to being evaluated at [place]
hospital, patient had been seen by the hospital of the [facility] cardiology department for which she was provided propranolol and salt tablets for presumed POTS.
Patient was informed in [address] and reporting to [facility] was undertaken
Patient was subsequently hospitalized at an outside hospital ([facility]) where diagnosis changed to dystonia. Patient was provided with carbidopa levodopa and had improvement of her stereotyped movements
Patient described as being wheelchair-bound in 2020
Patient is a prior history of narcolepsy and sleep apnea.
Patient also had a longstanding history of headache for which she was evaluated at [facility]
Has full body dystonic reactions to stress and to what is presumed to be mast cell allergic responses, patient has a prodrome of headache
Has had a diphenhydramine pump implanted for headache control
Followed by: change of care due to insurance changes
Previous testing: September 2016 MRI brain without demonstrate no significant abnormalities
48-hour ambulatory EEG 2017 during which patient had 2 spells of eyes rolling back and fluttering followed by postdrome, simultaneous smart watch heart rate monitor indicating pulse in the 50s; read as unremarkable
EEG November 2020 which was technically limited but failed to demonstrate epileptiform changes
Echocardiogram in 2020
Previous evaluation: [facility] cardiology, local neurologist, [facility], Hematology oncology
Prior medication(s): carbidopa/levodopa, clonazepam, IV diphenhydramine
Side-effects with medications: carbidopa/levodopa at 25/100 1.5 tabs 4x/day
Previous treatment(s): diphenhydramine pump, PICC line placement
Frequency: monthly dystonic reactions; excessive hand use leads to hand clawing --> 5x/week
Duration: chronic, since 2014
Duration of symptom: hand dystonic reaction 5 minutes-30 minutes, whole body reaction with rescue medications few minutes to 20 minutes
Intensity: significant
Etiology: presumed due to dystonia
Location: right hand, entire body (right-side mostly and neck contraction)
Trigger(s): repetitive movements
Associated symptom(s): hand extension dystonia
Improving factors: patient unaware of any
Worsening factors: patient unaware of any
Unchanged by: patient unaware of any
Severity: significant.
Postural Orthostatic Tachycardia Syndrome (POTS):
Since last visit:
Episodic dizziness
Also numbness and tingling all extremities especially in right foot, found to have critically low calcium
Began (prior to initial evaluation in this office):
07/2021
Sudden anaphylaxis episodes
Followed by: wheelchair use
syncope if prolonged walking
Previous testing: blood work
Previous evaluation: neurologists, Allergists, Heme-Onc
Prior medication(s): imatinib, steroids (prednisone) since 2019, iron supplementation, midodrine since 2014
Side-effects with medications: none
Previous treatment(s): none
Frequency: Per month: 1-3x
Duration: chronic, since 2014
Duration of symptom: minutes with medications
Intensity: N/A
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
Location: N/A
Trigger(s): stress, foods
Associated symptom(s): gait limitations
Improving factors: patient unaware of any
Worsening factors: patient unaware of any
Unchanged by: patient unaware of any
Severity: significant.
Headaches/Migraines:
Since last visit:
02/2022
started Rimegepant beneficial 90%
headache may precede dystonia
Duration: more than 7 years
Frequency: Daily --> daily
Frequency of severe: 2x/month --> 2x/ week
Prior medications: OTC medications, iron supplement, Nortriptyline, Sumatriptan, Amitriptyline, Topiramate, Prochlorperazine, unable to obtain Ubrogepant, Rimegepant
SE with medications: Nortriptyline, Sumatriptan, Amitriptyline, Topiramate, Prochlorperazine
Previous evaluation: [facility]
Prior treatment: Didn't use Botulinum Toxin injections
Intensity: 07/26, max 12/26
Location: left-sided forehead, rare on right
Associated symptoms: neck pain, photophobia, phonophobia, nausea, emesis
Improved by: Rimegepant
Severity: severe.
Assessments
1. Dystonia, unspecified - G24.9 (Primary)
2. Postural orthostatic tachycardia syndrome - I49.8
3. Chronic migraine without aura, not intractable, without status migrainosus - G43.709
4. Intractable migraine without aura and without status migrainosus - G43.019
5. Migraine without aura and without status migrainosus, not intractable - G43.009
Treatment
1. Dystonia, unspecified
Stop Sinemet Tablet, 25-100 MG, 1 tablet as needed, Orally, Four Times a Day, 30 days, 120
Start Sinemet CR Tablet Extended Release, 25-100 MG, 1 tablet every 6 hours while awake, Orally, every 6 hrs, 30 day(s), 120, Refills 1
2. Intractable migraine without aura and without status migrainosus
Notes: Dystonia, continue medications
change to extended release carbidopa/levodopa from immediate release in hopes of reducing dystonia
would meet with sub-specialists at [facility] Movement Disorders especially if not able to tolerate higher doses of Carbidopa/Levodopa; options are deep brain stimulator, or ultrasound-guided ablation
Headache prevention: start Botulinum toxin injections for prevention of headache and for dystonia
Headache rescue: Rimegepent when for significant
Can use Neuromodulation/Biofeedback can be taught by psychologist/psychiatrist for dizziness also (Fely Calvo, PhD teaches this).
Adapted from esteemed colleague�s note 08/2023:
DATE/TIME OF CONSULTATION: 08/30/23
Reason for Consultation: Dystonia
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
low-grade fever, bilateral flank pain and increased urinary urgency for the past 1 to 2 weeks. She had previously been on Macrobid as an outpatient.
Patient reports she has been on her usual doses of 1 mg lorazepam p.o. 4 times a day and gets 15 mg continuous Benadryl per hour. No changes in carbidopa/levodopa which has been used for dopa responsive dystonia.
Patient had episode of abnormal neurologic activity with clonic movement and right-sided versive head turn and gaze deviation did receive 2 mg IV Ativan for this. Shortly after that she returned to normal mental status and on my interview with her
she was wide-awake and conversant with appropriate mental status and conversation.
She reports that she usually gets at least 1 dystonic episodes a day and when hospitalized with illness can sometimes be multiple times a day.
Her usual rescue medication regimen for dystonic episodes has been 2 mg IV lorazepam along with 25 mg IV Benadryl.
Impressions
33-year-old woman with complex medical history of mast cell activation syndrome and recurrent episodes of dystonia which have been triggered more frequently with illness and patient has had responsive dystonia to carbidopa/levodopa. Vital signs show
low-grade fever along with tachycardia and suspicion for infection.
Patient's episode in the ER very likely represented dystonia given the clinical history of repeated abnormal episodes of neurologic dysfunction with abnormal posture and her quick return to a normal mental status, and epileptic seizure would very
likely resulted in a much longer postictal state and confusion.
Would expect that the patient is likely to have increased episodes of dystonia here during the hospitalization triggered by metabolic derangements of illness and infection.
Recommendations:
1. Ensure patient is on her home regimen of lorazepam. Continue 1 mg p.o. lorazepam every 6 hours
2. Would continue her existing Benadryl infusion
3. Not seeing an indication for antiseizure medications or EEG
4. For rescue of dystonic episodes would use 2 mg IV lorazepam and 25 mg IV Benadryl
~~~~
Patient returned to this [facility] ED with concerns regarding her G-tube function. Was found to have had a single blood culture positive at an outside institution. While hospitalized, on 09/20/2023, patient exhibited a dystonic reaction associated
with hand-clasping which spontaneously resolved.
Of note is that the patient's outpatient notes indicate that the patient has been banned from admission at [facility], both [facility] and [facility] declined transfer to their facilities. The [facility] declined to provide
medical advice.
Headaches are described as under good control with Rimegepant. Frequency of dystonic reactions is described as expected.
Objective Data
Vital Signs
Temp Pulse Resp BP Pulse Ox
36.6 C 115 16 118/85 95
09/21/23 03:00 09/21/23 07:33 09/21/23 07:33 09/21/23 06:28 09/21/23 07:33
Lab Results
09/21/23 04:49
09/21/23 04:49
Sodium 137 mmol/L (135-145) 09/21/23 04:49
Potassium 3.9 mmol/L (3.5-5.1) 09/21/23 04:49
BUN 7 mg/dl (7-17) 09/21/23 04:49
Glucose 128 mg/dl (70-99) H 09/21/23 04:49
Calcium 8.8 mg/dl (8.4-10.2) 09/21/23 04:49
Patient Allergies
azithromycin Allergy (Verified 09/19/23 21:51)
Unknown
cefepime Allergy (Verified 09/19/23 21:51)
Unknown
dog dander Allergy (Verified 09/19/23 14:17)
Unknown
erythromycin base Allergy (Verified 09/19/23 21:51)
Unknown
escitalopram [From Lexapro] Allergy (Verified 09/19/23 14:17)
Unknown
gabapentin Allergy (Verified 09/19/23 14:17)
Unknown
gluten Allergy (Verified 09/19/23 14:17)
Unknown
grass pollen Allergy (Verified 09/19/23 14:17)
Unknown
house dust Allergy (Verified 09/19/23 14:17)
Unknown
ibuprofen Allergy (Verified 09/19/23 14:17)
'not supposed to take d/t proteinuria'
Iodinated Contrast Media Allergy (Verified 09/19/23 18:06)
Unknown
lactose Allergy (Verified 09/19/23 14:17)
Nausea / Vomiting
lamotrigine [From Lamictal] Allergy (Verified 09/19/23 14:17)
Unknown
mold Allergy (Verified 09/19/23 14:17)
Unknown
montelukast [From Singulair] Allergy (Verified 09/19/23 14:17)
Unknown
nortriptyline Allergy (Verified 09/19/23 14:17)
Tachycardia
peanut Allergy (Verified 09/19/23 14:17)
Anaphylaxis
soy Allergy (Verified 09/19/23 14:17)
Unknown
topiramate [From Topamax] Allergy (Verified 09/19/23 14:17)
Unknown
tree and shrub pollen Allergy (Verified 09/19/23 14:17)
Unknown
vancomycin Allergy (Verified 09/19/23 21:51)
Unknown
weed pollen Allergy (Verified 09/19/23 14:17)
Unknown
Review of Systems
-
History Source: Patient
All other systems: Reviewed and negative
Constitutional: Weight Gain
EENT: Blurry Vision and Swallowing Difficulty; Negative Decreased Vision
Respiratory: Negative Trouble Breathing
Cardiac: Negative Chest Pain
Abdomen/GI: Negative Incontinence of Stool
Musculoskeletal: Negative Back Pain or Neck Pain
Neuro: Dizzy; Negative Headache
Physical Exam
-
General: No Apparent Distress, Appears Stated Age and Other (cushingoid)
Eyes: Round OU, Tees Toh Conjunctivae and No Ptosis
HEENT: Anicteric and Moist Mucous Membranes
Neck: Full Range of Motion
Respiratory: No Dyspnea
Cardiac: No JVD
GI: Non-distended
Skin: Unremarkable
Extremities: No Clubbing, No Cyanosis and No Edema
Psych: Intact Judgement/Insight
Extended Neurological Exam
Mood & Affect: Mood Unremarkable and Affect Unremarkable
Attention Span & Concentration: Awake, Alert, Interactive and No Difficulty with 2 Step Request
Memory: Unremarkable
Tremor: Hand Tremor Absent and Head Tremor Absent
Speech: Quality Unremarkable and Quantity Unremarkable
Cranial Nerve II: Left Eye: Pupillary Size Unremarkable and Visual Ruiz Grossly Intact
Cranial Nerve II: Right Eye: Pupillary Size Unremarkable and Visual Ruiz Grossly Intact
Cranial Nerves III, IV, : Extraocular Movement: Grossly Intact
Cranial Nerve VII: Facial Symmetry: Normal Facial Symmetry
Cranial Nerve VIII: Hearing: Unremarkable Hearing to Normal Conversational Volume
Muscle Strength, Overall: Spontaneously Moves
Muscle Bulk & Tone: Bulk Unremarkable and Tone Unremarkable
Coordination: Reaches for Objects without Difficulty
Gait & Station: Unable to Assess
Data Reviewed
-
Labs: Report Reviewed
Reviewed with: Physician and Patient
Old Records: Summarized
Medications
-
Active Medications
Generic Name Dose Route Start Last Admin
Trade Name Freq PRN Reason Stop Dose Admin
Acetaminophen 650 mg 09/20/23 00:44 09/20/23 23:23
Acetaminophen 325 Mg Tablet PO 10/18/23 00:43 650 mg
Q4HPRN PRN Administration
mild pain/fever
Albuterol/Ipratropium 3 ml 09/19/23 23:56
Ipratropium 0.5/Albuterol 3 Mg (3 Ml Ampul) INH
R Q4HPRN PRN
shortness of breath
Protocol
Baclofen 10 mg 09/19/23 23:56 09/21/23 06:02
Baclofen 10 Mg Tablet TUBE 10/17/23 23:55 10 mg
TID@0600,1400,2200 MELONIE Administration
Bisacodyl 10 mg 09/19/23 23:56
Bisacodyl 10 Mg Rectal Suppository RECTAL 10/17/23 23:55
[id number] PRN
constipation
Budesonide 0.5 mg 09/20/23 08:00 09/21/23 07:29
Budesonide (Pulmicort Respules) 0.5 Mg/2 Ml INH 0.5 mg
R BID MELONIE Administration
Protocol
Buprenorphine 2 mg 09/19/23 23:56 09/21/23 07:58
Buprenorphine 2 Mg Sl Tablet SL 10/03/23 23:55 2 mg
QID MELONIE Administration
Carbidopa/Levodopa 2 tablet 09/20/23 14:00 09/20/23 18:00
Carbidopa (25 Mg)/Levodopa (100 Mg) Regular Release Tablet TUBE 10/18/23 13:59 2 tablet
BID@1400,1800 MELONIE Administration
Carbidopa/Levodopa 1.5 tablet 09/20/23 06:00 09/21/23 06:02
Carbidopa (25 Mg)/Levodopa (100 Mg) Regular Release Tablet TUBE 10/18/23 05:59 1.5 tablet
BID@0600,1000 MELONIE Administration
Cetirizine HCl 10 mg 09/19/23 23:56 09/20/23 21:01
Cetirizine Hcl 10 Mg Tablet TUBE 10/17/23 23:55 10 mg
BID@1700,2200 MELONIE Administration
Cromolyn Sodium 300 mg 09/19/23 23:56 09/21/23 08:30
Cromolyn 100 Mg/5 Ml Oral Concentrate (Non-Form) Ampul PO 10/17/23 23:55 300 mg
QID MELONIE Administration
Dextrose 12.5 grams 09/19/23 23:56
Dextrose 50% (0.5 Grams/Ml) 50 Ml Syringe IV 10/17/23 23:55
[id number] PRN
hypoglycemia
Protocol
Diphenhydramine HCl 25 mg 09/19/23 23:56 09/21/23 05:58
Diphenhydramine 50 Mg/Ml 1 Ml Vial IV 10/17/23 23:55 25 mg
Q3HPRN PRN Administration
mcas reaction/anaphylaxis/dystonia
Enoxaparin Sodium 100 mg 09/20/23 08:00 09/21/23 08:03
Enoxaparin Sodium 100 Mg/Ml Syringe SC 10/18/23 07:59 100 mg
BID MELONIE Administration
Famotidine 40 mg 09/19/23 23:56 09/20/23 23:32
Famotidine 20 Mg/2 Ml Vial IV 10/17/23 23:55 40 mg
Q12H MELONIE Administration
Ferrous Sulfate 325 mg 09/19/23 23:56 09/20/23 21:01
Ferrous Sulfate 325 Mg Tablet PO 10/17/23 23:55 325 mg
HS MELONIE Administration
Glucagon 1 mg 09/19/23 23:56
Glucagon 1 Mg Vial IM 10/17/23 23:55
PRN PRN
hypoglycemia
Protocol
Hydromorphone HCl 8 mg 09/20/23 01:15
Hydromorphone 4 Mg Tablet PO 10/04/23 01:14
Q3HPRN PRN
severe pain
Hydromorphone HCl 1 mg 09/20/23 10:36 09/21/23 04:53
Hydromorphone 1 Mg/Ml Carpuject IV 10/04/23 10:35 1 mg
Q4HPRN PRN Administration
severe pain
Hydroxyurea 500 mg 09/20/23 08:00 09/21/23 07:58
Hydroxyurea 500 Mg Capsule PO 10/18/23 07:59 500 mg
BID MELONIE Administration
Sodium Chloride 1,000 mls @ 80 mls/hr 09/19/23 23:56 09/21/23 03:25
Nss IV 1,000 mls
.[id number] MELONIE Administration
Insulin Glargine 15 units/ 0.15 mls @ 0 mls/hr 09/20/23 08:00 09/21/23 08:28
Device SC 10/18/23 07:59 0.15 mls
DAILY MELONIE Administration
As Directed
Diphenhydramine HCl 250 mg/ 250 mls @ 15 mls/hr 09/20/23 12:00 09/21/23 03:25
Sodium Chloride IV 10/18/23 11:59 250 mls
Q16H MELONIE Administration
Piperacillin Sod/Tazobactam Sod 3.375 gram in 50 mls @ 100 mls/hr 09/21/23 10:00
Zosyn IV
Q6H MELONIE
Insulin Aspart 0 units 09/20/23 07:30 09/21/23 08:29
Insulin Aspart Low Resistance 300 Units/3 Ml Pen.Injctr SC 10/18/23 07:29 Not Given
AC MELONIE
Protocol
Insulin Aspart 8 units 09/20/23 07:30 09/21/23 08:29
Insulin Aspart (100 Units/Ml) 3 Ml Flexpen SC 10/18/23 07:29 8 units
AC MELONIE Administration
Ketotifen Fumarate 1 drop 09/20/23 08:00 09/21/23 08:00
Ketotifen Fumarate (Ophthalmic Solution) Bottle BOTH EYES 10/18/23 07:59 1 drop
BID MELONIE Administration
Loratadine 10 mg 09/20/23 08:00 09/21/23 07:57
Loratadine 10 Mg Tablet PO 10/18/23 07:59 10 mg
DAILY MELONIE Administration
Lorazepam 1 mg 09/20/23 10:36 09/21/23 05:56
Lorazepam 2 Mg/Ml Vial IV 10/18/23 10:35 1 mg
Q6HPRN PRN Administration
dystonia reaction
Miconazole Nitrate 0 applic 09/21/23 08:00 09/21/23 08:02
Miconazole Powder Bottle TOPICAL 10/19/23 07:59 1 applic
BID MELONIE Administration
Mupirocin 1 applic 09/20/23 16:00 09/21/23 07:52
Mupirocin 2% (Ointment) 22 Gram Tube TOPICAL 1 applic
TID MELONIE Administration
Non-Formulary Medication 2 mg 09/19/23 22:21
Lorazepam SL
Q6H PRN
dystonia
Aprepitant [Emend] 0 mg 09/20/23 12:00 09/21/23 07:51
80 Mg Capsule) Po PO 10/18/23 11:59 80 mg
Daily DAILY MELONIE Administration
Imatinib [Gleevec] 0 mg 09/20/23 14:00 09/20/23 15:26
100 Mg Tablet - Dose PO 10/18/23 13:59 200 mg
: 200 Mg Po Daily DAILY@1400 MELONIE Administration
Ketotifen 1 Mg 0 mg 09/20/23 12:00 09/21/23 08:00
Capsule Po Twice PO 10/18/23 11:59 1 mg
Daily BID MELONIE Administration
Ondansetron HCl 4 mg 09/19/23 23:56 09/20/23 23:22
Ondansetron 4 Mg/2 Ml Vial IV 10/17/23 23:55 4 mg
Q6HPRN PRN Administration
nausea and vomiting
Pantoprazole Sodium 40 mg 09/20/23 08:00 09/21/23 07:58
Pantoprazole 40 Mg Delayed Release Tablet PO 10/18/23 07:59 40 mg
BID MELONIE Administration
Polyethylene Glycol 17 grams 09/19/23 23:56
Polyethylene Glycol Powder 17 Grams Packet PO 10/17/23 23:55
DAILYPRN PRN
constipation
Prednisone 10 mg 09/20/23 08:00 09/21/23 07:55
Prednisone 5 Mg Tablet TUBE 10/18/23 07:59 10 mg
BID MELONIE Administration
Propranolol HCl 10 mg 09/19/23 23:56 09/21/23 08:26
Propranolol 10 Mg Regular Release Tablet TUBE 10/17/23 23:55 10 mg
TID MELONIE Administration
Senna/Docusate Sodium 1 tablet 09/19/23 23:56
Docusate W/Senna (Nimco-Colace) Tablet PO 10/17/23 23:55
BIDPRN PRN
constipation
Simethicone 80 mg 09/19/23 23:56
Simethicone 80 Mg Chewable Tablet PO 10/17/23 23:55
HS PRN
gas
Sodium Chloride 0 flush 09/20/23 01:00 09/20/23 11:44
Sodium Chloride 0.9% (Flush) Syringe IV 10/18/23 00:59 2 flush
PER PROTOCOL MELONIE Administration
Sodium Chloride 16 ml 09/20/23 02:00 09/21/23 07:59
Nss 16 Ml Bid IV 10/18/23 01:59 Not Given
BID MELONIE
Thiamine HCl 100 mg 09/20/23 08:00 09/21/23 07:56
Thiamine 100 Mg Tablet TUBE 10/18/23 07:59 100 mg
DAILY MELONIE Administration
Home Medications
�Medication �Instructions �Recorded
propranolol 10 mg tablet 10 mg feeding tube TID Heart 04/16/15
disease/condition
cetirizine 10 mg tablet 10 mg feeding tube BID@1700,2200 11/03/20
Allergies
budesonide 0.5 mg/2 mL suspension 0.5 mg inhalation R BID 09/27/21
for nebulization Lung/breathing issues
diphenhydramine HCl 50 mg/mL 0 mg IV .CONTINUOUS Allergies 09/27/21
injection solution
diphenhydramine HCl 50 mg/mL 25 mg IV Q3HPRN PRN mcas 09/27/21
injection solution reaction/anaphylaxis/dystonia
famotidine (PF) 20 mg/2 mL 40 mg IV Q12H Gastrointestinal 09/27/21
intravenous solution issue
rabeprazole 20 mg tablet,delayed 20 mg PO BID Gastrointestinal issue 09/27/21
release (AcipHex)
ferrous sulfate 325 mg (65 mg 325 mg PO HS Supplement 10/02/21
iron) tablet (FeroSul)
rimegepant 75 mg disintegrating 75 mg PO DAILYPRN PRN migraine 10/02/21
tablet (Nurtec ODT)
acetaminophen 650 mg 1,300 mg PO Q8HPRN PRN mild pain 05/13/22
tablet,extended release
baclofen 10 mg tablet 10 mg feeding tube 05/13/22
TID@0600,1400,2200 Muscle Spasms
imatinib 100 mg tablet (Gleevec) 200 mg PO DAILY@1400 [facility] 05/13/22
insulin lispro 100 unit/mL 8 unit SC AC Diabetes 05/13/22
subcutaneous pen
lorazepam 2 mg/mL oral concentrate 2 mg sublingual Q6H PRN dystonia 05/13/22
thiamine HCl (vitamin B1) 100 mg 100 mg feeding tube DAILY 05/13/22
tablet Supplement
fexofenadine 180 mg tablet 180 mg PO BID Allergies 06/18/22
carbidopa 25 mg-levodopa 100 mg 1.5 tab feeding tube BID@0600,1000 08/17/22
tablet (Sinemet) DYSTONIA
carbidopa 25 mg-levodopa 100 mg 2 tab feeding tube BID@1400,1800 08/17/22
tablet (Sinemet) DYSTONIA
ondansetron HCl (PF) 4 mg/2 mL 4 mg IV Q6HPRN PRN severe 02/11/23
injection solution nausea/vomiting
albuterol sulfate 2.5 mg/3 mL 2.5 mg inhalation R Q6HPRN PRN 06/11/23
(0.083 %) solution for nebulization anaphylaxis
buprenorphine HCl 2 mg sublingual 2 mg sublingual QID Pain 06/11/23
tablet
calcium citrate 200 mg 4 tab PO BID Supplement 06/11/23
calcium-vitamin D3 6.25 mcg (250
unit) tablet
enoxaparin 100 mg/mL subcutaneous 100 mg SC BID Blood Clot 06/11/23
syringe Prevention/Tx
hydromorphone 8 mg tablet 8 mg PO Q3HPRN PRN severe pain 06/11/23
insulin glargine 100 unit/mL (3 15 unit SC DAILY Diabetes 06/11/23
mL) subcutaneous pen (Lantus
Solostar U-100 Insulin)
simethicone 80 mg chewable tablet 80 mg PO HS PRN gas 06/11/23
aprepitant 80 mg capsule (Emend) 80 mg PO DAILY [facility] 06/23/23
hydroxyurea 500 mg capsule 500 mg PO BID #60 caps 07/02/23
Ketotifen 1 mg PO BID Allergies 08/30/23
cholecalciferol (vitamin D3) 1,250 1,250 mcg PO MO@0800 Supplement 08/30/23
mcg (50,000 unit) capsule
cromolyn 100 mg/5 mL oral 300 mg PO QID Allergies 08/30/23
concentrate
etonogestrel 0.12 mg-ethinyl 1 vag ring vaginal Q4W 08/30/23
estradiol 0.015 mg/24 hr vaginal control
ring (NuvaRing)
fluticasone propionate 50 2 spray intranasal DAILY PRN 08/30/23
mcg/actuation nasal allergies
spray,suspension
insulin lispro 100 unit/mL 0 sliding scale dose SC 08/30/23
subcutaneous pen DIRECTED Diabetes
ketotifen fumarate 0.025 % (0.035 1 drp BOTH EYES BID Eye Condition 08/30/23
%) eye drops
prednisone 5 mg tablet 10 mg feeding tube BID 08/30/23
Anti-Inflammatory
Past History
Past History
ED Past Medical History: Asthma, GERD, Hypercholesterolemia, Psychiatric (Anxiety), Other (Mast Cell activation Syndrome, neurocardiogenic syncope, Deana Danlos, narcolepsy, dystonia, sleep apnea, chronic vertigo, chronic daily headache, raynauds,
RLS, IBS) and Other (Osteoporosis)
ED Past Surgical History: Tonsilectomy, Urological (kidney biopsy) and Other (GJ tube placement)
Social History
Tobacco: Non-smoker
Alcohol: None
Drug: None
Personal: Single
Living: with family
Employment: Employed
Family History
Family History: Other (Reviewed and noncontributory); Negative Sudden
--- NOTE | 2023-09-21 09:43 | W.PN.ID1 ---
Date of Service
Date of Service: September 21, 2023
Today's Communication
- blood cultures with GNR
- agree with zosyn
- remove PICC - line holiday if feasible - pharmacy is reviewing if this can be done via a peripheral
- PICC will remain under the purview of Dr Villanueva
- culture the tip
- repeat blood cultures x2 this evening
Assessment / Plan
GNR bacteremia likely due to chronic PICC line
Fever
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
Gastroparesis
Numerous stated allergies - none to antibiotics
PICC in place
Dystonia
- blood cultures with GNR
- agree with zosyn
- remove PICC - line holiday if feasible - pharmacy is reviewing if this can be done via a peripheral for a line holiday
- PICC will remain under the purview of Dr Villanueva
- culture the tip
- requesting port, that would be best done under the preview of her treating MD Dr Villanueva if necessary
- repeat blood cultures x2 this evening
- note chronic steroids, gleevec
- fever described in up to 41% of patients taking gleevec; managed by Dr Villanueva hematology [place]
- patient would likely benefit from getting future care at a tertiary care center or with her treating compliance aide/oncologist for this rare clinical entity
Chief Complaint
-: Fever
Subjective / Review of Systems
no further fevers recorded
bp stable
no leukocytosis
cr stable
by report with GNR from unknown site at [place]; blood culture here GNR
Vital Signs / Physical Exam
Vital Signs
Vital Signs
Temp Pulse Resp BP Pulse Ox
97.9 F 112 19 137/106 98
09/21/23 03:00 09/21/23 08:01 09/21/23 08:01 09/21/23 08:00 09/21/23 07:59
Physical Exam
Constitutional: No Acute Distress and Chronically Ill
Head: Other (flushed)
Cardiovascular: Regular Rate and S1/S2; Negative Murmur or Rub
Pulmonary: Clear and Symmetric; Negative Wheezes or Rales
Gastrointestinal: Soft, Non Tender, Non Distended and Normal Bowel Sounds
Skin: Warm and Dry; Negative Rash or Jaundice
Lines: PICC
Objective Data
Lab Data
Lab Results
09/21/23 04:49
09/21/23 04:49
Estimated Creat Clear > 125 ml/min 09/21/23 04:49
Lactic Acid 1.6 mmol/L (0.7-2.0) 09/19/23 22:10
Total Bilirubin 0.5 mg/dl (0.2-1.3) 09/19/23 14:15
AST 26 U/L (14-36) 09/19/23 14:15
ALT 12 U/L (0-35) 09/19/23 14:15
Alkaline Phosphatase 97 U/L (38-126) 09/19/23 14:15
Most recent labs reviewed.
Micro Results:
09/19/23 22:10 Blood Culture - Preliminary
Blood/Venous Positive culture in progress
Gram Stain - Preliminary
09/19/23 14:15 Blood Culture - Preliminary
Blood/Venous No Growth in 24 hours- Final report to follow
09/19/23 22:10 Influenza Types A & B (KENNETH) - Final
Nasal Swab Negative for Influenza A & B, NAAT
Negative results must be combined with clinical observations
and patient history.
Nucleic Acid Amplification test (NAAT)performed on the
[employer] platform.
Care Review
Plan reviewed with: Physician (Dr Acevedo and Dr Diaz - antibiotics, [facility])
--- NOTE | 2023-09-21 09:53 | W.PN.HOSP.TC ---
Today's Communication/Plan
-
Start on Zosyn
Follow out patient blood culture data
Consider PICC line removal
Hematology/neurology consulted
Assessment / Plan
Assessment / Plan
#fever
-#sepsis as evident by tachycardia, fever
- Night SK[employer] HAND received a call from primary custom stock maker regarding positive blood culture. Patient states she had an order from her custom stock maker for blood cultures which were drawn on past Friday at home by her neonatal intensive care nurse..
-CT abdomen pelvis with GJ tube balloon is in the stomach, no findings to suggest a fluid collection in the adjacent subcutaneous tissues adjacent to the entrance of the tubing. The distal tubing is within the nondilated jejunum.
-chest x ray with Hypoaerated lungs without consolidation.
-blood culture from picc line ordered -Negative so far
-UA pending
- started on Zosyn.
-Obtain old information from [facility] regarding blood cultures
-Patient has right PICC line placed a year ago-to consider changing
#Chronic PICC line
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
#Mast Cell Activation Syndrome
#DOPA-Responsive Dystonia
-follows with Dr. Lizabeth Villanueva at [facility] hematology.
- Continue Ativan / Benadryl (pump)
�-cont Gleevac ,steroids
�--Levalbuterol as needed, to do her eyedrops
-Continue carbidopa levodopa
-prednisone continued
-Consult HEME
# dystonia/movement disorder-patient apparently has dystonic features with her mast cell activation syndrome. I could not find in literature as a routine clinical presentation but according to patient apparently this is very unusual feature which
was noted in few other patients . She is on IV Benadryl pump at 15 mg/h at home. Yesterday she had 2 episodes of them requiring as needed Ativan. In view of increased need of breakthrough medication consulted neurology.
-baclofen continued
-sinemet continued
# Chronic pain syndrome-on high doses of narcotics including p.o. Dilaudid and Suboxone at home. Again unclear the source of her pain.
#GERD
-famotidine continued
-acipHex continued
-simethicone continued
#iron def anemia
-ferrous sulfate continued
#hxt of tachycardia
-EKG with sinus tachycardia
-propranolol continued
#Chronic Nausea / Esophageal Dysmotility/gastroparesis
#History GJ tube
�- Continue diet as tolerated.
�- Continue G-tube to gravity for chronic nausea.
�- Meds via J-tube.
-Zofran every 8 hours as needed
-Continue Pepcid
-emend continued
- PEG tube site without any signs of cellulitis. CT of the abdomen pelvis shows no subcutaneous collection around the PEG tube and it is in place.
�
#Steroid-Induced DM-II
�- Continue basal insulin and add SSI coverage as needed.
�- Check A1C.
-lantus 15u daily
-lispro 8u before meals
#Steroid-Induced Osteoporosis
#Chronic Pain Syndrome secondary to the above on chronic opiates
�- Continue buprenorphine 2 mg 4 times daily , Dilaudid 8 mg as needed
�- PT / OT evaluations.
�- Follow-up with usual reservations specialist after discharge.
#allergy induced asthma
#chornic hypoxic respiratory failure
-albuterol continued
-budesonide continued
-cetirizine continued
-cromolyn continued
#Migraine Hx
ODT Nurtec as needed
#Restless leg syndrome
-Continue baclofen
#History of DVT / PE
#Takes subcu Lovenox 100 mg twice daily
DNR on admission
09/20 Went over again about DNR status-discussed about her wishes in the event of cardiac arrest. Was told in the event of cardiac arrest will normally be resuscitated with CPR, electrical cardioversion, and intubation, and medications. She feels
that her quality of life has been progressively poor and at this point in the event of cardiac arrest she does not want to be resuscitated. She has thought about this in the past. If her circumstances changes with regards to disease she may
reconsider it but at this current time she wishes to be DNR.
discussed with ID
total time spent on today's encounter was 52 minutes which included time spent in counseling the patient/ regarding diagnosis and treatment plan as listed above, goals of care, and symptom management. Case was discussed with nursing staff,
specialists, . All labs and imaging personally reviewed by me. Remainder the time spent in detailed review of previous records, lab data, imaging, and other medical provider documentation.
Anticipated Discharge: > 48 hours
Subjective/Interval History
-
Date of Service: September 21, 2023
this morning feels okay. No nausea. Has an appetite ;has breakfast on her table which she is eating.
No dystonia reactions this morning.
No fever or chills this morning.
Objective Data
-
Labs:
Laboratory Results
09/21/23
04:49
WBC 7.2
Hgb 10.2 L
Hct 30.7 L
Plt Count 209
Sodium 137
Potassium 3.9
Chloride 105
Carbon Dioxide 27
BUN 7
Creatinine 0.4 L
Glucose 128 H
Calcium 8.8
Vital Signs:
Vital Signs
Temp Pulse Resp BP Pulse Ox
97.9 F 112 19 137/106 98
09/21/23 03:00 09/21/23 08:01 09/21/23 08:01 09/21/23 08:00 09/21/23 09:42
I&O
09/20/23 09/21/23 09/22/23
06:59 06:59 06:59
Intake Total 1040 / 1040 300 / 300
Balance 1040 / 1040 300 / 300
Review of Systems
-
Constitutional: Denies Fever or Chills
EENT: Denies Sore Throat
Respiratory: Denies Cough or Trouble Breathing
Cardiac: Denies Chest Pain
Abdomen/GI: Denies Abdominal Pain, Nausea or Vomiting
Skin: Denies Rash
Neuro: Denies Dizzy
Physical Exam
-
General: No Apparent Distress
HEENT: Moist Mucous Membranes
Respiratory: Clear to Auscultation
Cardiac: Regular Rhythm and S1/S2
GI: Soft
Neuro: AO x 3; Negative Tremors
Psych: Calm; Negative Confused
Data Reviewed
-
Labs: Labs Reviewed by me
--- NOTE | 2023-09-21 10:16 | PTCARENOTE ---
pt w/ dystonia episode. Medications given per MD order. See MAR.
[2023-09-21] MEDS: ZOSYN 50 IV ×3 (10:25→21:57)
[2023-09-21] MEDS: ATIVAN 0.5 MG IV (10:26)
[2023-09-21] MEDS: NSS (PRESERVATIVE FREE) 0.25 ML IV (10:27)
[2023-09-21] MEDS: PEPCID 40 MG IV ×2 (10:48→22:46)
[2023-09-21 11:55] LABS: Glucose - Point of Care 171 mg/dl (70-99)
[2023-09-21] MEDS: NOVOLOG FLEXPEN-LOW RESISTANCE 1 UNITS SC ×2 (11:56→16:42)
[2023-09-21 12:11] LABS: Urine Albumin Negative (Neg - Trace); Urine Bilirubin Negative (Negative); Urine Character Clear (Clear); Urine Color Yellow; Urine Glucose Negative (Negative); Urine Ketone 1+ (Negative); Urine Leukocyte Trace (Negative); Urine Nitrite Negative (Negative); Urine Occult Blood 2+ (Negative); Urine Specific Gravity 1.005 (<1.030); Urine Urobilinogen Negative (Neg - 1+)
[2023-09-21 12:35] LABS: Urine Bacteria Few (Negative)
[2023-09-21] MEDS: SINEMET 25-100 2 TABLET TUBE ×2 (13:13→17:44)
[2023-09-21] MEDS: NON-FORMULARY ITEM 200 MG PO (13:14)
--- NOTE | 2023-09-21 13:37 | PTCARENOTE ---
Assumed care of pt from previous RN. Pt AAOx3, anxious regarding plan of care. All questions regarding care answered to the best of this RNs ability. Pt w/ benadryl and IVF infusions through R triple lumen PICC. Drain sponge surrounding GJ tube w/
purulent drainage, wound cleaned, ointment applied, dressing changed. VSS. Pt on 4L NC, SpO2 98%. Lungs CTA. Sinus tachycardia on the monitor HR in low 100's. Full assessment is as charted in worklist.
--- NOTE | 2023-09-21 13:41 | PTCARENOTE ---
Pt seen by Michelle Acosta in to see patient explaining plan of care. Pt anxious regarding this plan. Emotional support provided. VAT contacted to remove triple lumen picc. Pt understanding of importance for this, however tearful at times.
--- NOTE | 2023-09-21 14:55 | VATNOTE ---
Using sterile technique, PICC line removed and catheter tip collected for culture. While performing a Valsalva maneuver during PICC removal, pt had dystonic episode. PCN aware. Remained with pt until benadryl and ativan could be given IV by primary
RN.
--- NOTE | 2023-09-21 15:05 | PTCARENOTE ---
pt w/ dystonia episode. Ativan and benadryl given as ordered. See MAR. Pt w/ positive results.
--- NOTE | 2023-09-21 15:25 | PTCARENOTE ---
continuous benadryl infusion going through R. AC. Spoke w/ pharmacy recommending benadryl infusion be more closely monitored and not through any hand/wrist IV sites.
[2023-09-21] MEDS: ZYRTEC 10 MG TUBE ×2 (15:41→21:59)
[2023-09-21 16:42] LABS: Glucose - Point of Care 152 mg/dl (70-99)
[2023-09-21] MEDS: ZOFRAN 4 MG IV (16:44)
[2023-09-21] MEDS: TYLENOL 650 MG PO (20:24)
[2023-09-21 21:49] LABS: Glucose - Point of Care 153 mg/dl (70-99)
[2023-09-21] MEDS: FEOSOL 325 MG PO (21:59)
[2023-09-21] MEDS: NSS (PRESERVATIVE FREE) 16 ML IV (22:46)
--- NOTE | 2023-09-21 23:09 | CON.ONC ---
Impression
Impression
Mast cell activation syndrome
Plan
Plan
discussed case wit Dr Villanueva who actively manages her care in this regard--he sees her regularly and has arranged home care who xochilt blood cultures night prior to admission for sepsis syndrome; she intends to return to his care though is
convenient given the cardiovascular/neurologic disorders that also complicate her recovery; he is in agreement with PR to remove PICC line and infuse benadryl peripherally with replacement of PICC to f/u with him on d/c
Patient History
History of Present Illness
33yo WF followed @ [facility] for mast cell activation syndrome admitted for recurrent fever/ weakness for which outpt BC drawn by [facility] were called last night to hospitalist service c/w GNJamel. SHe has been treated with infusion benadryl along with
Gleevac/hydrea/Ketotifen for her hx of recurrent hives though it is unclear about tissue infiltrative disease. THough [facility] was taken by ambulance to as it is closer to her residence as well as the fact she is followed
by cardiology and neurology for her related diagnoses.
Past-Medical/Surgical History
dystonia/POTS/VTE/DM/osteoporosis/GERD
Patient Medication
�Medication �Instructions �Recorded �Confirmed �Last Taken �Type
propranolol 10 mg tablet 10 mg feeding tube TID Heart 04/16/15 09/19/23 09/19/23 History
disease/condition
cetirizine 10 mg tablet 10 mg feeding tube BID@1700,2200 11/03/20 09/19/23 09/18/23 History
Allergies
budesonide 0.5 mg/2 mL suspension 0.5 mg inhalation R BID 09/27/21 09/19/23 09/19/23 History
for nebulization Lung/breathing issues
diphenhydramine HCl 50 mg/mL 0 mg IV .CONTINUOUS Allergies 09/27/21 09/19/23 09/19/23 History
injection solution
diphenhydramine HCl 50 mg/mL 25 mg IV Q3HPRN PRN mcas 09/27/21 09/19/23 08/30/23 History
injection solution reaction/anaphylaxis/dystonia
famotidine (PF) 20 mg/2 mL 40 mg IV Q12H Gastrointestinal 09/27/21 09/19/23 09/19/23 History
intravenous solution issue
rabeprazole 20 mg tablet,delayed 20 mg PO BID Gastrointestinal issue 09/27/21 09/19/23 09/19/23 History
release (AcipHex)
ferrous sulfate 325 mg (65 mg 325 mg PO HS Supplement 10/02/21 09/19/23 09/18/23 History
iron) tablet (FeroSul)
rimegepant 75 mg disintegrating 75 mg PO DAILYPRN PRN migraine 10/02/21 09/19/23 2 Days Ago History
tablet (Nurtec ODT) ~08/28/23
acetaminophen 650 mg 1,300 mg PO Q8HPRN PRN mild pain 05/13/22 09/19/23 08/30/23 History
tablet,extended release
baclofen 10 mg tablet 10 mg feeding tube 05/13/22 09/19/23 09/19/23 History
TID@0600,1400,2200 Muscle Spasms
imatinib 100 mg tablet (Gleevec) 200 mg PO DAILY@1400 MCAS 05/13/22 09/19/23 09/18/23 History
insulin lispro 100 unit/mL 8 unit SC AC Diabetes 05/13/22 09/19/23 09/19/23 History
subcutaneous pen
lorazepam 2 mg/mL oral concentrate 2 mg sublingual Q6H PRN dystonia 05/13/22 09/19/23 08/30/23 History
thiamine HCl (vitamin B1) 100 mg 100 mg feeding tube DAILY 05/13/22 09/19/23 09/19/23 History
tablet Supplement
fexofenadine 180 mg tablet 180 mg PO BID Allergies 06/18/22 09/19/23 09/19/23 History
carbidopa 25 mg-levodopa 100 mg 1.5 tab feeding tube BID@0600,1000 08/17/22 09/19/23 09/19/23 History
tablet (Sinemet) DYSTONIA
carbidopa 25 mg-levodopa 100 mg 2 tab feeding tube BID@1400,1800 08/17/22 09/19/23 09/18/23 History
tablet (Sinemet) DYSTONIA
ondansetron HCl (PF) 4 mg/2 mL 4 mg IV Q6HPRN PRN severe 02/11/23 09/19/23 08/30/23 History
injection solution nausea/vomiting
albuterol sulfate 2.5 mg/3 mL 2.5 mg inhalation R Q6HPRN PRN 06/11/23 09/19/23 08/29/23 History
(0.083 %) solution for nebulization anaphylaxis
buprenorphine HCl 2 mg sublingual 2 mg sublingual QID Pain 06/11/23 09/19/23 09/19/23 History
tablet
calcium citrate 200 mg 4 tab PO BID Supplement 06/11/23 09/19/23 09/19/23 History
calcium-vitamin D3 6.25 mcg (250
unit) tablet
enoxaparin 100 mg/mL subcutaneous 100 mg SC BID Blood Clot 06/11/23 09/19/23 09/19/23 History
syringe Prevention/Tx
hydromorphone 8 mg tablet 8 mg PO Q3HPRN PRN severe pain 06/11/23 09/19/23 2 Days Ago History
~08/28/23
insulin glargine 100 unit/mL (3 15 unit SC DAILY Diabetes 06/11/23 09/19/23 09/19/23 History
mL) subcutaneous pen (Lantus
Solostar U-100 Insulin)
simethicone 80 mg chewable tablet 80 mg PO HS PRN gas 06/11/23 09/19/23 08/29/23 History
aprepitant 80 mg capsule (Emend) 80 mg PO DAILY MCAS 06/23/23 09/19/23 09/19/23 History
hydroxyurea 500 mg capsule 500 mg PO BID #60 caps 07/02/23 09/19/23 09/19/23 Rx
Ketotifen 1 mg PO BID Allergies 08/30/23 09/19/23 09/19/23 History
cholecalciferol (vitamin D3) 1,250 1,250 mcg PO MO@0800 Supplement 08/30/23 09/19/23 09/15/23 History
mcg (50,000 unit) capsule
cromolyn 100 mg/5 mL oral 300 mg PO QID Allergies 08/30/23 09/19/23 09/19/23 History
concentrate
etonogestrel 0.12 mg-ethinyl 1 vag ring vaginal Q4W 08/30/23 09/19/23 08/30/23 History
estradiol 0.015 mg/24 hr vaginal control
ring (NuvaRing)
fluticasone propionate 50 2 spray intranasal DAILY PRN 08/30/23 09/19/23 3 Days Ago History
mcg/actuation nasal allergies ~08/27/23
spray,suspension
insulin lispro 100 unit/mL 0 sliding scale dose SC 08/30/23 09/19/23 08/29/23 History
subcutaneous pen DIRECTED Diabetes
ketotifen fumarate 0.025 % (0.035 1 drp BOTH EYES BID Eye Condition 08/30/23 09/19/23 09/19/23 History
%) eye drops
prednisone 5 mg tablet 10 mg feeding tube BID 08/30/23 09/19/23 09/19/23 History
Anti-Inflammatory
Active Medications
Generic Name Dose Route Start Last Admin
Trade Name Freq PRN Reason Stop Dose Admin
Acetaminophen 650 mg 09/20/23 00:44 09/21/23 20:24
Acetaminophen 325 Mg Tablet PO 10/18/23 00:43 650 mg
Q4HPRN PRN Administration
mild pain/fever
Albuterol/Ipratropium 3 ml 09/19/23 23:56
Ipratropium 0.5/Albuterol 3 Mg (3 Ml Ampul) INH
R Q4HPRN PRN
shortness of breath
Protocol
Baclofen 10 mg 09/19/23 23:56 09/21/23 21:58
Baclofen 10 Mg Tablet TUBE 10/17/23 23:55 10 mg
TID@0600,1400,2200 MELONIE Administration
Bisacodyl 10 mg 09/19/23 23:56
Bisacodyl 10 Mg Rectal Suppository RECTAL 10/17/23 23:55
[id number] PRN
constipation
Budesonide 0.5 mg 09/20/23 08:00 09/21/23 19:24
Budesonide (Pulmicort Respules) 0.5 Mg/2 Ml INH 0.5 mg
R BID MELONIE Administration
Protocol
Buprenorphine 2 mg 09/19/23 23:56 09/21/23 21:59
Buprenorphine 2 Mg Sl Tablet SL 10/03/23 23:55 2 mg
QID MELONIE Administration
Carbidopa/Levodopa 2 tablet 09/20/23 14:00 09/21/23 17:44
Carbidopa (25 Mg)/Levodopa (100 Mg) Regular Release Tablet TUBE 10/18/23 13:59 2 tablet
BID@1400,1800 MELONIE Administration
Carbidopa/Levodopa 1.5 tablet 09/20/23 06:00 09/21/23 10:26
Carbidopa (25 Mg)/Levodopa (100 Mg) Regular Release Tablet TUBE 10/18/23 05:59 1.5 tablet
BID@0600,1000 MELONIE Administration
Cetirizine HCl 10 mg 09/19/23 23:56 09/21/23 21:59
Cetirizine Hcl 10 Mg Tablet TUBE 10/17/23 23:55 10 mg
BID@1700,2200 MELONIE Administration
Cromolyn Sodium 300 mg 09/19/23 23:56 09/21/23 22:00
Cromolyn 100 Mg/5 Ml Oral Concentrate (Non-Form) Ampul PO 10/17/23 23:55 300 mg
QID MELONIE Administration
Dextrose 12.5 grams 09/19/23 23:56
Dextrose 50% (0.5 Grams/Ml) 50 Ml Syringe IV 10/17/23 23:55
[id number] PRN
hypoglycemia
Protocol
Diphenhydramine HCl 25 mg 09/19/23 23:56 09/21/23 20:16
Diphenhydramine 50 Mg/Ml 1 Ml Vial IV 10/17/23 23:55 25 mg
Q3HPRN PRN Administration
mcas reaction/anaphylaxis/dystonia
Enoxaparin Sodium 100 mg 09/20/23 08:00 09/21/23 19:54
Enoxaparin Sodium 100 Mg/Ml Syringe SC 10/18/23 07:59 100 mg
BID MELONIE Administration
Famotidine 40 mg 09/19/23 23:56 09/21/23 22:46
Famotidine 20 Mg/2 Ml Vial IV 10/17/23 23:55 40 mg
Q12H MELONIE Administration
Ferrous Sulfate 325 mg 09/19/23 23:56 09/21/23 21:59
Ferrous Sulfate 325 Mg Tablet PO 10/17/23 23:55 325 mg
HS MELONIE Administration
Glucagon 1 mg 09/19/23 23:56
Glucagon 1 Mg Vial IM 10/17/23 23:55
PRN PRN
hypoglycemia
Protocol
Hydromorphone HCl 8 mg 09/20/23 01:15
Hydromorphone 4 Mg Tablet PO 10/04/23 01:14
Q3HPRN PRN
severe pain
Hydromorphone HCl 1 mg 09/20/23 10:36 09/21/23 20:22
Hydromorphone 1 Mg/Ml Carpuject IV 10/04/23 10:35 1 mg
Q4HPRN PRN Administration
severe pain
Hydroxyurea 500 mg 09/20/23 08:00 09/21/23 19:54
Hydroxyurea 500 Mg Capsule PO 10/18/23 07:59 500 mg
BID MELONIE Administration
Sodium Chloride 1,000 mls @ 80 mls/hr 09/19/23 23:56 09/21/23 16:40
Nss IV 1,000 mls
.[id number] MELONIE Administration
Insulin Glargine 15 units/ 0.15 mls @ 0 mls/hr 09/20/23 08:00 09/21/23 08:28
Device SC 10/18/23 07:59 0.15 mls
DAILY MELONIE Administration
As Directed
Diphenhydramine HCl 250 mg/ 250 mls @ 15 mls/hr 09/20/23 12:00 09/21/23 19:53
Sodium Chloride IV 10/18/23 11:59 250 mls
Q16H MELONIE Administration
Piperacillin Sod/Tazobactam Sod 3.375 gram in 50 mls @ 100 mls/hr 09/21/23 10:00 09/21/23 21:57
Zosyn IV 50 mls
Q6H MELONIE Administration
Insulin Aspart 0 units 09/20/23 07:30 09/21/23 16:42
Insulin Aspart Low Resistance 300 Units/3 Ml Pen.Injctr SC 10/18/23 07:29 1 units
AC MELONIE Administration
Protocol
Insulin Aspart 8 units 09/20/23 07:30 09/21/23 16:41
Insulin Aspart (100 Units/Ml) 3 Ml Flexpen SC 10/18/23 07:29 8 units
AC MELONIE Administration
Ketotifen Fumarate 1 drop 09/20/23 08:00 09/21/23 20:00
Ketotifen Fumarate (Ophthalmic Solution) Bottle BOTH EYES 10/18/23 07:59 1 drop
BID MELONIE Administration
Loratadine 10 mg 09/20/23 08:00 09/21/23 07:57
Loratadine 10 Mg Tablet PO 10/18/23 07:59 10 mg
DAILY MELONIE Administration
Lorazepam 1 mg 09/20/23 10:36 09/21/23 14:56
Lorazepam 2 Mg/Ml Vial IV 10/18/23 10:35 1 mg
Q6HPRN PRN Administration
dystonia reaction
Lorazepam 2 mg 09/21/23 20:42
Lorazepam 1 Mg Tablet SL 10/19/23 20:41
Q6H PRN
dystonia
Miconazole Nitrate 0 applic 09/21/23 08:00 09/21/23 19:54
Miconazole Powder Bottle TOPICAL 10/19/23 07:59 1 applic
BID MELONIE Administration
Mupirocin 1 applic 09/20/23 16:00 09/21/23 22:05
Mupirocin 2% (Ointment) 22 Gram Tube TOPICAL 1 applic
TID MELONIE Administration
Aprepitant [Emend] 0 mg 09/20/23 12:00 09/21/23 07:51
80 Mg Capsule) Po PO 10/18/23 11:59 80 mg
Daily DAILY MELONIE Administration
Imatinib [Gleevec] 0 mg 09/20/23 14:00 09/21/23 13:14
100 Mg Tablet - Dose PO 10/18/23 13:59 200 mg
: 200 Mg Po Daily DAILY@1400 MELONIE Administration
Ketotifen 1 Mg 0 mg 09/20/23 12:00 09/21/23 19:58
Capsule Po Twice PO 10/18/23 11:59 1 mg
Daily BID MELONIE Administration
Ondansetron HCl 4 mg 09/19/23 23:56 09/21/23 16:44
Ondansetron 4 Mg/2 Ml Vial IV 10/17/23 23:55 4 mg
Q6HPRN PRN Administration
nausea and vomiting
Pantoprazole Sodium 40 mg 09/20/23 08:00 09/21/23 19:54
Pantoprazole 40 Mg Delayed Release Tablet PO 10/18/23 07:59 40 mg
BID MELONIE Administration
Polyethylene Glycol 17 grams 09/19/23 23:56
Polyethylene Glycol Powder 17 Grams Packet PO 10/17/23 23:55
DAILYPRN PRN
constipation
Prednisone 10 mg 09/20/23 08:00 09/21/23 19:53
Prednisone 5 Mg Tablet TUBE 10/18/23 07:59 10 mg
BID MELONIE Administration
Propranolol HCl 10 mg 09/19/23 23:56 09/21/23 21:58
Propranolol 10 Mg Regular Release Tablet TUBE 10/17/23 23:55 10 mg
TID MELONIE Administration
Senna/Docusate Sodium 1 tablet 09/19/23 23:56
Docusate W/Senna (Nimco-Colace) Tablet PO 10/17/23 23:55
BIDPRN PRN
constipation
Simethicone 80 mg 09/19/23 23:56
Simethicone 80 Mg Chewable Tablet PO 10/17/23 23:55
HS PRN
gas
Sodium Chloride 0 flush 09/20/23 01:00 09/20/23 11:44
Sodium Chloride 0.9% (Flush) Syringe IV 10/18/23 00:59 2 flush
PER PROTOCOL MELONIE Administration
Sodium Chloride 16 ml 09/20/23 02:00 09/21/23 22:46
Nss 16 Ml Bid IV 10/18/23 01:59 16 ml
BID MELONIE Administration
Thiamine HCl 100 mg 09/20/23 08:00 09/21/23 07:56
Thiamine 100 Mg Tablet TUBE 10/18/23 07:59 100 mg
DAILY MELONIE Administration
Review of Systems
-
History Source: Patient
All Other Systems: Reviewed and Negative (other than as per HPI)
Physical Exam
-
General: Comfortable
HEENT: Moist Mucous Membranes
Cardiology: Normal Sinus Rhythm
Pulmonary: Clear
GI: Normal Bowel Sounds
Musculoskeletal: Other (Cushingnoid facies/hump)
Neurology: Non Focal
Psych: Calm and Anxious
Labs
Lab Results
WBC 7.2 10^3/uL (4.8-10.8) 09/21/23 04:49
RBC 2.90 10^6/uL (4.20-5.40) L 09/21/23 04:49
Hgb 10.2 g/dL (12.0-16.0) L 09/21/23 04:49
Hct 30.7 % (37.0-47.0) L 09/21/23 04:49
MCV 105.9 fL (81.0-99.0) H 09/21/23 04:49
MCH 35.2 pg (27.0-31.0) H 09/21/23 04:49
MCHC 33.2 g/dL (33.0-37.0) 09/21/23 04:49
RDW 16.7 % (11.5-14.5) H 09/21/23 04:49
Plt Count 209 10^3/uL (130-400) 09/21/23 04:49
MPV 8.8 fL (7.4-10.4) 09/21/23 04:49
Abs Immat Gran (auto) 0.2 10^3/uL (0-0.05) H 09/19/23 14:15
Absolute Neuts (auto) 4.9 10^3/uL (1.4-6.5) 09/19/23 14:15
Absolute Lymphs (auto) 1.4 10^3/uL (1.2-3.4) 09/19/23 14:15
Absolute Monos (auto) 0.3 10^3/uL (0.1-0.6) 09/19/23 14:15
Absolute Eos (auto) 0.0 10^3/uL (0-0.7) 09/19/23 14:15
Absolute Basos (auto) 0.0 10^3/uL (0-0.2) 09/19/23 14:15
Immature Gran % 2.9 % (0-0.5) H 09/19/23 14:15
Neutrophils % 71.4 % (42.2-75.2) 09/19/23 14:15
Lymphocytes % 21.0 % (20.5-51.1) 09/19/23 14:15
Monocytes % 4.2 % (1.7-9.3) 09/19/23 14:15
Eosinophils % 0.1 % (0-6) 09/19/23 14:15
Basophils % 0.4 % (0-2) 09/19/23 14:15
Creatinine 0.4 mg/dL (0.6-1.0) L 09/21/23 04:49
Vital Signs
Vital Signs
Temp Pulse Resp BP Pulse Ox
97.4 F 102 24 166/98 95
09/21/23 19:35 09/21/23 20:00 09/21/23 20:00 09/21/23 20:00 09/21/23 20:00
--- NOTE | 2023-09-21 23:44 | PTCARENOTE ---
pt with mast cell episode that appears like seizure activity although she is able to talk- Ativan, Benadryl,Dilaudid pushed and episode calmed down. pt did not desat- multiple issues and complaints by pt of varying degrees requiring almost constant
care and attention in room.
[2023-09-22] VITALS (18 sets, daily range): BP systolic 121–172; BP diastolic 53–152; PULSE 100–120; O2SAT 95
[2023-09-22] MEDS: DILAUDID 1 MG IV ×5 (02:00→23:15)
[2023-09-22] MEDS: NSS 1000 IV ×2 (04:08→21:09)
[2023-09-22] MEDS: ZOSYN 50 IV ×4 (04:08→21:35)
--- NOTE | 2023-09-22 04:25 | PTCARENOTE ---
bp taken on pt's leg show htn- she does not want us to give her additional bp meds on top of her regimen- she disputes accuracy of bp numbers
[2023-09-22 04:47] LABS: Hematocrit 30.7 % (37.0-47.0); Hemoglobin 10.2 g/dL (12.0-16.0); Mean Corp Hgb Conc. 33.2 g/dL (33.0-37.0); Mean Corpuscular Hgb 35.2 pg (27.0-31.0); Mean Corpuscular Volume 105.9 fL (81.0-99.0); Platelet Count 246 10^3/uL (130-400); Red Cell Dist. Width 16.5 % (11.5-14.5); White Blood Cell Count 5.5 10^3/uL (4.8-10.8)
[2023-09-22 05:18] LABS: Blood Urea Nitrogen 6 mg/dl (7-17); Calcium 9.2 mg/dl (8.4-10.2); Carbon Dioxide 24 mmol/L (22-30); Chloride 106 mmol/L (98-107); Estimated Creatinine Clearance > 125 ml/min; Glucose 166 mg/dl (70-99); Potassium 4.3 mmol/L (3.5-5.1); Sodium 138 mmol/L (135-145); eGFR > 60.00
[2023-09-22] MEDS: LIORESAL 10 MG TUBE ×3 (05:59→21:36)
[2023-09-22] MEDS: SINEMET 25-100 1.5 TABLET TUBE ×2 (06:00→10:53)
[2023-09-22] MEDS: PULMICORT 0.5 MG INH ×2 (08:03→20:11)
[2023-09-22] MEDS: NOVOLOG FLEXPEN-LOW RESISTANCE SC ×3 (08:27→18:10)
[2023-09-22] MEDS: NOVOLOG FLEXPEN 8 UNITS SC ×3 (08:28→18:10)
--- NOTE | 2023-09-22 08:32 | W.PN.ID1 ---
Date of Service
Date of Service: September 22, 2023
Today's Communication
- agree with zosyn
- continue line holiday if feasible
- plan possible midline when blood cultures consistently clear and then patient should follow up with Dr Villanueva who manages her pump for further plans
Assessment / Plan
GNR bacteremia likely due to chronic PICC line
Fever
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
Gastroparesis
Numerous stated allergies - none to antibiotics
PICC in place
Dystonia
- blood cultures with GNR - await ID/sensi
- repeat blood cultures were done last evening - follow
- agree with zosyn
- continue line holiday if feasible
- plan possible midline when blood cultures consistently clear and then patient should follow up with Dr Villanueva who manages her pump for further plans
- note chronic steroids, gleevec
- fevers described in up to 41% of patients taking gleevec
- patient would likely benefit from getting future care at a tertiary care center or with her treating engineer system administrator/oncologist for this rare clinical entity
Chief Complaint
-: Fever
Subjective / Review of Systems
afebrile
bp stable
without leukocytosis
cr stable
cath tip culture pending
has peripherals
no complaints
Vital Signs / Physical Exam
Vital Signs
Vital Signs
Temp Pulse Resp BP Pulse Ox
98.0 F 106 19 121/66 96
09/22/23 03:53 09/22/23 08:08 09/22/23 08:08 09/22/23 06:00 09/22/23 08:08
Physical Exam
Constitutional: No Acute Distress
Cardiovascular: Regular Rate and S1/S2; Negative Murmur or Rub
Pulmonary: Clear and Symmetric; Negative Wheezes or Rales
Gastrointestinal: Soft, Non Tender, Non Distended and Normal Bowel Sounds
Skin: Warm and Dry; Negative Rash or Jaundice
Objective Data
Lab Data
Lab Results
09/22/23 04:16
09/22/23 04:16
Estimated Creat Clear > 125 ml/min 09/22/23 04:16
Lactic Acid 1.6 mmol/L (0.7-2.0) 09/19/23 22:10
Total Bilirubin 0.5 mg/dl (0.2-1.3) 09/19/23 14:15
AST 26 U/L (14-36) 09/19/23 14:15
ALT 12 U/L (0-35) 09/19/23 14:15
Alkaline Phosphatase 97 U/L (38-126) 09/19/23 14:15
Most recent labs reviewed.
Micro Results:
09/21/23 22:30 Blood Culture - Pending
Blood/Venous
09/21/23 22:37 Blood Culture - Pending
Blood/Venous
09/21/23 15:01 Catheter Tip Culture - Pending
Picc
09/19/23 14:15 Blood Culture - Preliminary
Blood/Venous No Growth in 48 hours- Final report to follow
09/19/23 22:10 Blood Culture - Preliminary
Blood/Venous Positive culture in progress
Gram Stain - Preliminary
09/19/23 22:10 Influenza Types A & B (KENNETH) - Final
Nasal Swab Negative for Influenza A & B, NAAT
Negative results must be combined with clinical observations
and patient history.
Nucleic Acid Amplification test (NAAT)performed on the
[employer] platform.
[2023-09-22] MEDS: BACTROBAN 2% OINTMENT 1 APPLIC TOPICAL ×3 (08:34→21:39)
[2023-09-22] MEDS: CLARITIN 10 MG PO (08:35)
[2023-09-22] MEDS: INDERAL 10 MG TUBE ×3 (08:35→21:35)
[2023-09-22] MEDS: HYDREA 500 MG PO ×2 (08:35→21:04)
[2023-09-22] MEDS: VITAMIN B1 100 MG TUBE (08:35)
[2023-09-22] MEDS: PROTONIX 40 MG PO ×2 (08:35→21:05)
[2023-09-22] MEDS: SUBUTEX 2 MG SL ×4 (08:35→21:37)
[2023-09-22] MEDS: DELTASONE 10 MG TUBE ×2 (08:35→21:05)
[2023-09-22] MEDS: GASTROCROM 300 MG PO ×4 (08:35→21:37)
[2023-09-22] MEDS: DESENEX/MITRAZOL/ZEASORB 1 APPLIC TOPICAL ×2 (08:36→21:05)
[2023-09-22] MEDS: NON-FORMULARY ITEM 80 MG PO (08:37)
[2023-09-22] MEDS: ZADITOR 1 DROP BOTH EYES ×2 (08:37→21:10)
[2023-09-22 08:38] LABS: Glucose - Point of Care 136 mg/dl (70-99)
[2023-09-22] MEDS: LOVENOX 100 MG SC ×2 (08:38→21:04)
[2023-09-22] MEDS: ZOFRAN 4 MG IV ×2 (08:42→14:00)
[2023-09-22] MEDS: ATIVAN 1 MG IV ×3 (08:42→18:57)
[2023-09-22] MEDS: BENADRYL 25 MG IV ×3 (08:48→18:58)
[2023-09-22] MEDS: LANTUS 0.15 UNITS SC (09:04)
[2023-09-22] MEDS: NON-FORMULARY ITEM 1 MG PO ×2 (09:07→21:07)
[2023-09-22] MEDS: NSS (PRESERVATIVE FREE) 16 ML IV ×2 (09:11→23:14)
[2023-09-22] MEDS: PEPCID 40 MG IV ×2 (10:54→23:15)
--- NOTE | 2023-09-22 11:14 | W.PN.UPDATE ---
Update Note
Progress Note Update
Asked to see patient for drainage at feeing tube. Patient has GJ tube in place. She has had issues with this in the past that has been associates with buried bumper. Patient always had had IR or Surgery evaluate these tubes. Discussed with IM
Attending. He will consult IR. Patient without any other GI concerns at this time. If we can be of further assistance in the future please let us know. Thank you.
[2023-09-22] MEDS: BENADRYL 250 MG IV (12:33)
[2023-09-22 12:43] LABS: Glucose - Point of Care 146 mg/dl (70-99)
[2023-09-22] MEDS: SINEMET 25-100 2 TABLET TUBE ×2 (14:09→18:10)
[2023-09-22] MEDS: NON-FORMULARY ITEM 200 MG PO (14:11)
[2023-09-22] MEDS: ZYRTEC 10 MG TUBE ×2 (15:39→21:38)
[2023-09-22 16:56] LABS: Glucose - Point of Care 145 mg/dl (70-99)
--- NOTE | 2023-09-22 16:56 | W.PN.HOSP.TC ---
Today's Communication/Plan
-
Continue broad-spectrum antibiotics/Zosyn pending final cultures
Interventional radiology consultation for GJ tube replacement.
Continue current analgesic/neurologic regimen
Continue Benadryl.
Continue current insulin regimen.
Assessment / Plan
Assessment / Plan
Impression:
Gram-negative bacteremia due to chronic infected PICC line.
Fever on admission with no evidence of sepsis (tachycardia likely fever mediated)
Conditions prior to admission:
1. Mast cell activation syndrome.
2. Chronic dystonic reaction.
3. Orthostatic hypotension with postural orthostatic and
tachycardia syndrome.
4. Dopa sensitive dystonia.
5. Steroid-induced diabetes.
6. Prior history of deep venous thrombosis and pulmonary embolism.
7. Chronic pain syndrome.
8. Migraine headaches.
9. Gastroesophageal reflux disease.
10. Benzodiazepine and opiate dependence.
11. Restless legs syndrome.
12. Insomnia.
13. History of vocal cord dysfunction.
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
15. Gastroparesis.
16. 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
17. 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
Plan:
Gram-negative bacteremia secondary to PICC line
PICC line removed
Final blood culture identification and deep culture pending
Repeated blood cultures pending for clearance.
Line holiday with likely replacement with midline.
Discussed with ID.
Continue broad-spectrum antibiotics Zosyn pending final blood cultures.
GJ tube in place with buried bumper.
Will ask interventional radiology to replace.
Currently on oral intake and using GJ tube for medications and nutritional supplements
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
#Mast Cell Activation Syndrome
#DOPA-Responsive Dystonia
-follows with Dr. Lizabeth Villanueva at [facility] hematology.
- Continue Ativan / Benadryl (pump)
�-cont Gleevac ,steroids
�--Levalbuterol as needed, to do her eyedrops
-Continue carbidopa levodopa
-prednisone continued
-Consult HEME
# dystonia/movement disorder-patient apparently has dystonic features with her mast cell activation syndrome. I could not find in literature as a routine clinical presentation but according to patient apparently this is very unusual feature which
was noted in few other patients . She is on IV Benadryl pump at 15 mg/h at home. Yesterday she had 2 episodes of them requiring as needed Ativan. In view of increased need of breakthrough medication consulted neurology.
-baclofen continued
-sinemet continued
# Chronic pain syndrome-on high doses of narcotics including p.o. Dilaudid and Suboxone at home. Again unclear the source of her pain.
#GERD
-famotidine continued
-acipHex continued
-simethicone continued
#iron def anemia
-ferrous sulfate continued
#hxt of tachycardia
-EKG with sinus tachycardia
-propranolol continued
#Chronic Nausea / Esophageal Dysmotility/gastroparesis
#History GJ tube
�- Continue diet as tolerated.
�- Continue G-tube to gravity for chronic nausea.
�- Meds via J-tube.
-Zofran every 8 hours as needed
-Continue Pepcid
-emend continued
- PEG tube site without any signs of cellulitis. CT of the abdomen pelvis shows no subcutaneous collection around the PEG tube and it is in place.
�
#Steroid-Induced DM-II
�- Continue basal insulin and add SSI coverage as needed.
-lantus 15u daily
-lispro 8u before meals
#Steroid-Induced Osteoporosis
#Chronic Pain Syndrome secondary to the above on chronic opiates
�- Continue buprenorphine 2 mg 4 times daily , Dilaudid 8 mg as needed
�- PT / OT evaluations.
�- Follow-up with usual literacy specialist after discharge.
#allergy induced asthma
#chornic hypoxic respiratory failure
-albuterol continued
-budesonide continued
-cetirizine continued
-cromolyn continued
#Migraine Hx
ODT Nurtec as needed
#Restless leg syndrome
-Continue baclofen
#History of DVT / PE
#Takes subcu Lovenox 100 mg twice daily
DNR on admission
Anticipated Discharge: 24 - 48 hours
Subjective/Interval History
-
Date of Service: September 22, 2023
Objective Data
-
Labs:
Laboratory Results
09/22/23
04:16
Sodium 138
Potassium 4.3
Chloride 106
Carbon Dioxide 24
BUN 6 L
Creatinine 0.4 L
Glucose 166 H
Calcium 9.2
Vital Signs:
Vital Signs
Temp Pulse Resp BP Pulse Ox
97.6 F 101 17 152/93 95
09/22/23 11:00 09/22/23 10:00 09/22/23 10:00 09/22/23 15:39 09/22/23 10:00
I&O
09/21/23 09/22/23 09/23/23
06:59 06:59 06:59
Intake Total 300 / 300 2020 / 2020 170 / 170
Output Total 900 / 1600 900 / 900
Balance 300 / 300 1120 / 420 -730 / -730
Physical Exam
-
General: Well Developed and No Apparent Distress
HEENT: Normocephalic, Atraumatic and Moist Mucous Membranes
Respiratory: Clear to Auscultation
Cardiac: Regular Rhythm and S1/S2; Negative Murmur, Rub or Gallop
GI: Soft, Nontender, Nondistended, Normal Bowel Sounds and Peg Tube; Negative Organomegaly
Rectal: Deferred by Provider
Musculoskeletal: No Clubbing, No Cyanosis and No Edema
Skin: Negative Rash
Neuro: Nonfocal/Grossly Intact
--- NOTE | 2023-09-22 17:33 | PTCARENOTE ---
Pt. arrived in [facility] at 1700, transferred to procedure table from IMU bed. Time out at 1717. GJ tube changed over wire by Dr. Karimi. No c/o pain at this time. Returned to IMU via bed by WILY Earl.
--- NOTE | 2023-09-22 20:30 | PTCARENOTE ---
Addendum entered by Norma Page RN 09/23/23 01:38:
Pt was back to her baseline and having conversations. Pt washed up and did her night time route with out incident. Call sanchez within reach, bed at lowest position.
Original Note:
Assumed care of Pt from day RN. Change of shift Pt was having one of her episodes resembling a seizure. Medications for episode given by day RN, reevaluation by this RN Pt was beginning to come to her baseline.
[2023-09-22] MEDS: NSS (PRESERVATIVE FREE) IV (21:08)
[2023-09-22] MEDS: FEOSOL 325 MG PO (21:35)
[2023-09-22 22:49] LABS: Glucose - Point of Care 141 mg/dl (70-99)
[2023-09-23] VITALS (11 sets, daily range): BP systolic 109–149; BP diastolic 72–104
[2023-09-23] MEDS: ZOSYN 50 IV ×2 (04:22→10:16)
[2023-09-23] MEDS: BENADRYL 25 MG IV ×4 (04:24→22:04)
[2023-09-23] MEDS: ATIVAN 1 MG IV ×4 (04:24→22:05)
[2023-09-23] MEDS: DILAUDID 1 MG IV ×4 (04:41→22:39)
[2023-09-23] MEDS: BENADRYL 250 MG IV ×2 (05:10→20:08)
[2023-09-23 05:41] LABS: Hematocrit 30.7 % (37.0-47.0); Hemoglobin 10.1 g/dL (12.0-16.0); Mean Corp Hgb Conc. 32.9 g/dL (33.0-37.0); Mean Corpuscular Hgb 34.9 pg (27.0-31.0); Mean Corpuscular Volume 106.2 fL (81.0-99.0); Platelet Count 280 10^3/uL (130-400); Red Blood Cell Count 2.89 10^6/uL (4.20-5.40); Red Cell Dist. Width 16.4 % (11.5-14.5); White Blood Cell Count 5.9 10^3/uL (4.8-10.8)
--- NOTE | 2023-09-23 05:52 | PTCARENOTE ---
Pt had one of her episodes this morning. Medication given with good result of short episode with out full seizure like activity. Vitals stable at this time.
[2023-09-23] MEDS: SINEMET 25-100 1.5 TABLET TUBE ×2 (05:57→10:16)
[2023-09-23] MEDS: LIORESAL 10 MG TUBE ×3 (05:57→22:39)
[2023-09-23 06:21] LABS: Blood Urea Nitrogen 6 mg/dl (7-17); Calcium 9.1 mg/dl (8.4-10.2); Carbon Dioxide 24 mmol/L (22-30); Chloride 107 mmol/L (98-107); Estimated Creatinine Clearance > 125 ml/min; Glucose 134 mg/dl (70-99); Sodium 139 mmol/L (135-145); eGFR > 60.00
[2023-09-23 07:55] LABS: Glucose - Point of Care 108 mg/dl (70-99)
[2023-09-23] MEDS: PULMICORT 0.5 MG INH ×2 (07:57→20:18)
[2023-09-23] MEDS: NOVOLOG FLEXPEN-LOW RESISTANCE SC ×2 (08:22→16:00)
[2023-09-23] MEDS: NOVOLOG FLEXPEN 8 UNITS SC ×3 (08:44→16:00)
[2023-09-23] MEDS: LOVENOX 100 MG SC ×2 (08:45→20:16)
[2023-09-23] MEDS: GASTROCROM 300 MG PO ×4 (08:45→22:38)
[2023-09-23] MEDS: LANTUS 0.15 UNITS SC (08:45)
[2023-09-23] MEDS: PEPCID 40 MG IV ×2 (08:47→20:16)
[2023-09-23] MEDS: INDERAL 10 MG TUBE ×3 (08:48→22:38)
[2023-09-23] MEDS: SUBUTEX 2 MG SL ×4 (08:48→22:58)
[2023-09-23] MEDS: NSS (PRESERVATIVE FREE) 16 ML IV ×2 (08:48→20:16)
[2023-09-23] MEDS: DELTASONE 10 MG TUBE ×2 (08:49→20:15)
[2023-09-23] MEDS: VITAMIN B1 100 MG TUBE (08:49)
[2023-09-23] MEDS: CLARITIN 10 MG PO (08:49)
[2023-09-23] MEDS: HYDREA 500 MG PO ×2 (08:49→20:13)
[2023-09-23] MEDS: PROTONIX 40 MG PO ×2 (08:49→20:13)
[2023-09-23] MEDS: BACTROBAN 2% OINTMENT 1 APPLIC TOPICAL ×3 (08:50→22:36)
[2023-09-23] MEDS: DESENEX/MITRAZOL/ZEASORB 1 APPLIC TOPICAL ×2 (08:50→20:15)
[2023-09-23] MEDS: NSS 1000 IV ×2 (08:51→22:36)
[2023-09-23] MEDS: NON-FORMULARY ITEM 1 MG PO ×2 (08:52→20:13)
[2023-09-23] MEDS: NON-FORMULARY ITEM 80 MG PO (08:53)
[2023-09-23] MEDS: ZADITOR 1 DROP BOTH EYES ×2 (08:55→20:27)
[2023-09-23] MEDS: DUONEB 3 ML INH ×2 (09:32→15:19)
[2023-09-23] MEDS: PEPCID IV (09:33)
--- NOTE | 2023-09-23 10:28 | W.PN.ID1 ---
Date of Service
Date of Service: September 23, 2023
Today's Communication
- switch to ciprofloxacin 750 mg PO BID
- repeat EKG in the AM
- continue line holiday if feasible through today
- replace line in the AM if 5/5 blood cultures remain negative
- outpatient line will remain under the purview of Dr Villanueva who is aware of her admission and accepting her back under his management
Assessment / Plan
Pseudo fluorescens/putida bacteremia
Line Infection
- line removed
Fever - resolved
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
Gastroparesis
Numerous stated allergies - azithromycin, cefepime, vancomycin
Dystonia
- blood cultures with Pseudo fluorescens/putida
- repeat blood cultures no growth to date
- switch to ciprofloxacin 750 mg PO BID
- repeat EKG in the AM
- continue line holiday if feasible through today
- replace line in the AM if 5/5 blood cultures remain negative
- outpatient line will remain under the purview of Dr Villanueva who is aware of her admission and accepting her back under his management
- patient would likely benefit from getting future care at a tertiary care center or with her treating it risk advisor/oncologist for this rare clinical entity
Chief Complaint
-: Fever
Subjective / Review of Systems
afebrile
bp stable
g tube was leaking, however on CT scan bumper was visible and not burried in my opinion; agree with replacement for leak
without leukocytosis
cr stable
blood cultures no growth at 24 hrs
Vital Signs / Physical Exam
Vital Signs
Vital Signs
Temp Pulse Resp BP Pulse Ox
98.1 F 126 16 142/102 95
09/23/23 05:49 09/23/23 09:34 09/23/23 09:34 09/23/23 08:48 09/23/23 09:34
Physical Exam
Constitutional: No Acute Distress and Obese
Cardiovascular: Regular Rate and S1/S2; Negative Murmur or Rub
Pulmonary: Clear and Symmetric; Negative Wheezes or Rales
Gastrointestinal: Soft, Non Tender, Non Distended and Normal Bowel Sounds
Skin: Warm and Dry; Negative Rash or Jaundice
Lines: PIV
Objective Data
Lab Data
Lab Results
09/23/23 05:28
09/23/23 05:27
Estimated Creat Clear > 125 ml/min 09/23/23 05:27
Lactic Acid 1.6 mmol/L (0.7-2.0) 09/19/23 22:10
Total Bilirubin 0.5 mg/dl (0.2-1.3) 09/19/23 14:15
AST 26 U/L (14-36) 09/19/23 14:15
ALT 12 U/L (0-35) 09/19/23 14:15
Alkaline Phosphatase 97 U/L (38-126) 09/19/23 14:15
Most recent labs reviewed.
Blood Culture Preliminary 09/23/23-904
Pseudo fluorescens/putida
Negative for the following organisms by [facility]
Nucleic Acid Methodology:
Acinetobacter species
Citrobacter species
Enterobacter species
Proteus species
Escherichia coli
Klebsiella pneumoniae
Klebsiella oxytoca
Psedomonas aeruginosa
Organism 1 Pseudo fluorescens/putida
1. Pseudo fluorescens/putida
M.I.C. RX
--------- ---
Cefepime <=2 S
Ceftazidime 4 S
Ciprofloxacin <=0.25 S
Gentamicin 8 I
Levofloxacin <=0.5 S
Meropenem <=1 S
Piperacillin/Tazobactam <=16 S
Tobramycin <=4 S
Trimethoprim/Sulfamethoxazole <=2/38 S
Micro Results:
09/19/23 22:10 Blood Culture - Preliminary
Blood/Venous Pseudo fluorescens/putida
Gram Stain - Preliminary
09/21/23 22:37 Blood Culture - Preliminary
Blood/Venous No Growth in 24 hours- Final report to follow
09/21/23 22:30 Blood Culture - Preliminary
Blood/Venous No Growth in 24 hours- Final report to follow
09/19/23 14:15 Blood Culture - Preliminary
Blood/Venous No Growth in 72 hours- Final report to follow
09/21/23 15:01 Catheter Tip Culture - Preliminary
Picc Gram negative bacilli
09/19/23 22:10 Influenza Types A & B (KENNETH) - Final
Nasal Swab Negative for Influenza A & B, NAAT
Negative results must be combined with clinical observations
and patient history.
Nucleic Acid Amplification test (NAAT)performed on the
[employer] platform.
Care Review
Plan reviewed with: Physician (Dr Kirk)
--- NOTE | 2023-09-23 10:56 | PTCARENOTE ---
pt aaox3. states chronic pain controlled with current meds. g tube to drainage j tube for medications. 3lnc. breath sounds diminished. ivf and Benadryl iv running as ordered. pt states she had a sip of coffee that was sent by dietary by mistake
and that caused her to have an episode. was witnessed tremors tense arms and legs, coughing with upper airway wheezing. DR. Kirk notified and prn meds given as ordered. neb treatment also given per pt request. pt able to swallow some meds
and some given in peg tube.
[2023-09-23] MEDS: CIPRO 750 MG PO ×2 (12:05→20:19)
[2023-09-23] MEDS: NOVOLOG FLEXPEN-LOW RESISTANCE 1 UNITS SC (12:06)
[2023-09-23 12:15] LABS: Glucose - Point of Care 161 mg/dl (70-99)
[2023-09-23] MEDS: NON-FORMULARY ITEM 200 MG PO (13:50)
[2023-09-23] MEDS: SINEMET 25-100 2 TABLET TUBE ×2 (13:50→18:12)
[2023-09-23] MEDS: ZOFRAN 4 MG IV (15:14)
[2023-09-23 16:10] LABS: Glucose - Point of Care 141 mg/dl (70-99)
--- NOTE | 2023-09-23 16:25 | W.PN.HOSP.TC ---
Today's Communication/Plan
-
Follow blood culture for clearance
Antibiotics changed to Cipro
Hopefully to replace central line/midline 09/23
Discharge planning
Assessment / Plan
Assessment / Plan
Impression:
Gram-negative bacteremia due to chronic infected PICC line.
Fever on admission with no evidence of sepsis (tachycardia likely fever mediated)
Conditions prior to admission:
1. Mast cell activation syndrome.
2. Chronic dystonic reaction.
3. Orthostatic hypotension with postural orthostatic and
tachycardia syndrome.
4. Dopa sensitive dystonia.
5. Steroid-induced diabetes.
6. Prior history of deep venous thrombosis and pulmonary embolism.
7. Chronic pain syndrome.
8. Migraine headaches.
9. Gastroesophageal reflux disease.
10. Benzodiazepine and opiate dependence.
11. Restless legs syndrome.
12. Insomnia.
13. History of vocal cord dysfunction.
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
15. Gastroparesis.
16. 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
17. 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
Plan:
Gram-negative bacteremia secondary to PICC line
PICC line removed
Blood culture with Pseudo fluorescens/putida
Repeated blood cultures pending for clearance.
Line holiday with likely replacement with midline tentatively on 09/23
Antibiotics changed to oral Cipro on 09/[address] with buried bumper.
Replaced by interventional radiology on 09/22
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
#Mast Cell Activation Syndrome
#DOPA-Responsive Dystonia
-follows with Dr. Lizabeth Villanueva at [facility] hematology.
- Continue Ativan / Benadryl (pump)
�-cont Gleevac ,steroids
�--Levalbuterol as needed, to do her eyedrops
-Continue carbidopa levodopa
-prednisone continued
-Consult HEME
# dystonia/movement disorder-patient apparently has dystonic features with her mast cell activation syndrome. I could not find in literature as a routine clinical presentation but according to patient apparently this is very unusual feature which
was noted in few other patients . She is on IV Benadryl pump at 15 mg/h at home. Yesterday she had 2 episodes of them requiring as needed Ativan. In view of increased need of breakthrough medication consulted neurology.
-baclofen continued
-sinemet continued
# Chronic pain syndrome-on high doses of narcotics including p.o. Dilaudid and Suboxone at home. Again unclear the source of her pain.
#GERD
-famotidine continued
-acipHex continued
-simethicone continued
#iron def anemia
-ferrous sulfate continued
#hxt of tachycardia
-EKG with sinus tachycardia
-propranolol continued
#Chronic Nausea / Esophageal Dysmotility/gastroparesis
#History GJ tube
�- Continue diet as tolerated.
�- Continue G-tube to gravity for chronic nausea.
�- Meds via J-tube.
-Zofran every 8 hours as needed
-Continue Pepcid
-emend continued
- PEG tube site without any signs of cellulitis. CT of the abdomen pelvis shows no subcutaneous collection around the PEG tube and it is in place.
�
#Steroid-Induced DM-II
�- Continue basal insulin and add SSI coverage as needed.
-lantus 15u daily
-lispro 8u before meals
#Steroid-Induced Osteoporosis
#Chronic Pain Syndrome secondary to the above on chronic opiates
�- Continue buprenorphine 2 mg 4 times daily , Dilaudid 8 mg as needed
�- PT / OT evaluations.
�- Follow-up with usual assessment specialist after discharge.
#allergy induced asthma
#chornic hypoxic respiratory failure
-albuterol continued
-budesonide continued
-cetirizine continued
-cromolyn continued
#Migraine Hx
ODT Nurtec as needed
#Restless leg syndrome
-Continue baclofen
#History of DVT / PE
#Takes subcu Lovenox 100 mg twice daily
DNR on admission
Anticipated Discharge: 24 - 48 hours
Subjective/Interval History
-
Date of Service: September 23, 2023
Objective Data
-
Labs:
Laboratory Results
09/23/23 09/23/23
05:27 05:28
WBC 5.9
Hgb 10.1 L
Hct 30.7 L
Plt Count 280
Sodium 139
Potassium 4.0
Chloride 107
Carbon Dioxide 24
BUN 6 L
Creatinine 0.4 L
Glucose 134 H
Calcium 9.1
Vital Signs:
Vital Signs
Temp Pulse Resp BP Pulse Ox
97.7 F 127 17 142/104 97
09/23/23 11:40 09/23/23 15:19 09/23/23 15:19 09/23/23 15:59 09/23/23 15:19
I&O
09/22/23 09/23/23 09/24/23
06:59 06:59 06:59
Intake Total 2019 2110 / 2110 50 / 50
Output Total 900 / 1600 950 / 950
Balance 1120 / 420 1160 / 1160 50 / 50
Physical Exam
-
General: Well Developed and No Apparent Distress
HEENT: Normocephalic, Atraumatic and Moist Mucous Membranes
Respiratory: Clear to Auscultation
Cardiac: Regular Rhythm and S1/S2; Negative Murmur, Rub or Gallop
GI: Soft, Nontender, Nondistended and Normal Bowel Sounds; Negative Organomegaly
Rectal: Deferred by Provider
Musculoskeletal: No Clubbing, No Cyanosis and No Edema
Skin: Negative Rash
Neuro: Nonfocal/Grossly Intact
--- NOTE | 2023-09-23 17:27 | CM ---
Patient with Hx Mast Cell Activation Syndrome with Dx Gram-negative bacteremia secondary to PICC line. O2 3L. Receiving Subutex, IV Benadryl, IV Dilaudid prn, IV Ativan prn, IVF. PT recommends HH.
Met with patient who says she is aware patient planning on d/c in 1-2 days. Patient states she is overwhelmed and began crying while discussing d/c plans. Patient will call [facility] to provide advance notification of discharge.
Discussed that CM would provide update to [facility] once midline is placed, as well as [facility]. Patient states she is unsure she needs to continue [facility] as [facility] is providing nurses as caregivers. Patient states she will
be calling her mother today to confirm d/c plan to mother's house. Patient requests ambulance ride home.
Spoke with [facility] and referral placed.
Spoke with nurse Prudencio; patient spoke to her mother who told her she can come home if everything is setup and she doesn't need to do anything for her.
Case discussed with Keaton Hill & Reagan. Dr Kirk wants [facility] to continue at home. Per Dr Hill, midline will be placed tomorrow. She will not be ordering any home infusion meds- patient will need to continue prior infusion orders
as per Gaby Villanueva.
Case discussed with Brigida Leavitt CM Director.
Plan contact [facility] once midline placed.
Plan home with [facility] 09/12 caregivers, [facility], [facility], by ambulance.
[2023-09-23] MEDS: ZYRTEC 10 MG TUBE ×2 (18:12→22:39)
[2023-09-23 21:28] LABS: Glucose - Point of Care 125 mg/dl (70-99)
[2023-09-23] MEDS: FEOSOL 325 MG PO (22:37)
[2023-09-24] VITALS (12 sets, daily range): BP systolic 121–143; BP diastolic 80–103
--- NOTE | 2023-09-24 01:50 | PTCARENOTE ---
Pt received from previous shift in bed. AAOx3, anxious. Telemetry = ST. Full physical assessment documented (refer to worklist). Pt with one episode of dystonia (rigidity, clamping fist, mildly tremulous) conversant t/o episode. PRNs
administered (refer to MAR). Pt verbalizes relief of symptoms after med administration. GJ tube patent (G tube to gravity, most meds administered through J tube). Pt uses bedpan at times. Full bed bath after episode of incontinence. NSS and
benadryl gtt infusing via #22 RAC without complication. Call sanchez within reach. Plan of care ongoing.
[2023-09-24 04:19] LABS: % Basophils 0.3 % (0-2); % Eosinophils 0.2 % (0-6); % Lymphocytes 43.2 % (20.5-51.1); % Monocytes 7.4 % (1.7-9.3); % Neutrophils 46.9 % (42.2-75.2); Absolute Immature Granulocytes 0.1 10^3/uL (0-0.05); Absolute Lymphocytes 2.6 10^3/uL (1.2-3.4); Absolute Monocytes 0.4 10^3/uL (0.1-0.6); Absolute Neutrophils 2.8 10^3/uL (1.4-6.5); Hemoglobin 10.6 g/dL (12.0-16.0); Mean Corp Hgb Conc. 32.1 g/dL (33.0-37.0); Mean Corpuscular Hgb 35.1 pg (27.0-31.0); Mean Corpuscular Volume 109.3 fL (81.0-99.0); Mean Platelet Volume 8.8 fL (7.4-10.4); Nucleated Red Blood Cells % 0 %; Platelet Count 299 10^3/uL (130-400); Red Blood Cell Count 3.02 10^6/uL (4.20-5.40); Red Cell Dist. Width 16.3 % (11.5-14.5); White Blood Cell Count 5.9 10^3/uL (4.8-10.8)
[2023-09-24 04:42] LABS: Blood Urea Nitrogen 6 mg/dl (7-17); Calcium 9.1 mg/dl (8.4-10.2); Carbon Dioxide 29 mmol/L (22-30); Chloride 105 mmol/L (98-107); Estimated Creatinine Clearance > 125 ml/min; Glucose 127 mg/dl (70-99); Potassium 4.1 mmol/L (3.5-5.1); Sodium 138 mmol/L (135-145); eGFR > 60.00
[2023-09-24] MEDS: SINEMET 25-100 1.5 TABLET TUBE ×2 (06:10→11:05)
[2023-09-24] MEDS: LIORESAL 10 MG TUBE ×3 (06:10→22:14)
[2023-09-24] MEDS: DILAUDID 1 MG IV ×2 (06:25→10:55)
--- NOTE | 2023-09-24 06:30 | PTCARENOTE ---
received patient from previous RN. during assessment of patient, started having dystonia response, able to speak and requesting ativan, dilaudid and benadryl. medications given as ordered pt reports feeling back to normal. orientedx3, anxious and
tearful. SR/ST on telemetry heart rate 90-low 100s. pulses palpable. trace edema. pt on 3L chronic oxygen. lung sounds diminished. active bowel sounds. G/J tube intact, g tube to gravity drainage. voiding on bedpan. benadryl gtt infusing per orders
and NS at 80 ml/hr. pt updated on plan of care. see worklist for full nursing assessment and interventions.
[2023-09-24] MEDS: ATIVAN 1 MG IV ×2 (06:39→12:58)
[2023-09-24] MEDS: BENADRYL 25 MG IV ×4 (06:45→20:58)
[2023-09-24] MEDS: PULMICORT 0.5 MG INH ×2 (07:26→19:14)
[2023-09-24] MEDS: PULMICORT INH (07:53)
[2023-09-24 08:05] LABS: Glucose - Point of Care 115 mg/dl (70-99)
[2023-09-24] MEDS: GASTROCROM 300 MG PO ×4 (08:21→22:17)
[2023-09-24] MEDS: CIPRO 750 MG PO ×2 (08:23→20:32)
[2023-09-24] MEDS: DELTASONE 10 MG TUBE ×2 (08:24→20:35)
[2023-09-24] MEDS: CLARITIN 10 MG PO (08:24)
[2023-09-24] MEDS: SUBUTEX 2 MG SL ×4 (08:24→22:15)
[2023-09-24] MEDS: VITAMIN B1 100 MG TUBE (08:24)
[2023-09-24] MEDS: PROTONIX 40 MG PO ×2 (08:24→20:35)
[2023-09-24] MEDS: BACTROBAN 2% OINTMENT 1 APPLIC TOPICAL ×3 (08:25→22:17)
[2023-09-24] MEDS: INDERAL 10 MG TUBE ×3 (08:25→22:16)
[2023-09-24] MEDS: HYDREA 500 MG PO ×2 (08:25→20:35)
[2023-09-24] MEDS: NOVOLOG FLEXPEN 8 UNITS SC ×3 (08:26→18:15)
[2023-09-24] MEDS: NOVOLOG FLEXPEN-LOW RESISTANCE SC ×3 (08:26→18:14)
[2023-09-24] MEDS: DESENEX/MITRAZOL/ZEASORB 1 APPLIC TOPICAL ×2 (08:27→22:13)
[2023-09-24] MEDS: LOVENOX 100 MG SC ×2 (08:27→20:36)
[2023-09-24] MEDS: PEPCID 40 MG IV ×2 (08:28→20:33)
[2023-09-24] MEDS: NSS (PRESERVATIVE FREE) 16 ML IV ×2 (08:28→20:37)
[2023-09-24] MEDS: NON-FORMULARY ITEM 1 MG PO ×2 (08:29→20:39)
[2023-09-24] MEDS: NON-FORMULARY ITEM 80 MG PO (08:31)
[2023-09-24] MEDS: ZADITOR 1 DROP BOTH EYES ×2 (08:32→20:36)
[2023-09-24] MEDS: LANTUS 0.15 UNITS SC (08:45)
[2023-09-24] MEDS: ZOFRAN 4 MG IV (10:54)
--- NOTE | 2023-09-24 11:17 | CM ---
Call received from Bobby Ontiveros, She asked if we had found placement for daughter and I stated no that we had not. I had stated that Mary had told the nurse yesterday that she had a conversation with her Mother and that she said she could come home
as long as all of the services that had been in place were resumed and that she would not need to so anything. Bobby stated she must have misunderstood. She asked about referrals being made to [facility] in [place] and [facility] in
[place]. I stated that a skilled facility would not be able to accommodate her intravenous medications. I also stated that Mary would need to be in agreement with us sending those referrals . She stated that this situation with her daughter's
ongoing medical care over these past 3 years and living in her home has taken a toll on her own physical and mental health and she cannot do it any longer. She stated that Mary has 24 hr nursing care provided through [facility] , however when a
nurse calls our and they are unable to find a replacement she needs to assume care of Mary. She expressed concerns with her daughters medical management over these past three years and I asked if she had discussed these concerns with her Daughters
outpt specialist, Dr. Villanueva. She stated she is not allowed to speak to Dr. Villanueva and that her daughter has been 'banned from [place] due to prolonged admissions and some fictitious disorder'. I asked Bobby to call Mary to have a conversation
with her to make her aware that she is stating that she can not come home to her house. We would then discuss with Mary other options. Update to CM and Hospitalist.
--- NOTE | 2023-09-24 11:38 | W.PN.ID1 ---
Date of Service
Date of Service: September 24, 2023
Today's Communication
- continue ciprofloxacin 750 mg PO BID x 14 days through 10/05
- repeat EKG qtc remains below 500
- considered levofloxacin however qtc is limiting
stable for dc
Assessment / Plan
Pseudo fluorescens/putida bacteremia
Line Infection
- line removed
Fever - resolved
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
Gastroparesis
Numerous stated allergies - azithromycin, cefepime, vancomycin
Dystonia
- second GNR seen on the initial blood culture (likely the burkholderia)
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
- note both orgnaisms with low virulence
- repeat blood cultures no growth to date
- continue ciprofloxacin 750 mg PO BID x 14 days through 10/05
- repeat EKG qtc remains below 500
- considered levofloxacin however qtc is limiting
- can replace picc
- outpatient line will remain under the purview of Dr Villanueva who is aware of her admission and accepting her back under his management - he can further consider port
- patient would likely benefit from getting future care at a tertiary care center or with her treating oxygen furnace operator/oncologist for this rare clinical entity
Chief Complaint
-: Fever
Subjective / Review of Systems
afebrile
bp stable
without leukocytosis
repeat blood cultures no growth at 48 hrs
second GNR seen on the initial blood culture
cath tip with burkholderia (previous pseudomonas) cepacia
she reports using albuterol for cough - feels like its more frequent with the cipro - thats fine; offered the alternative of bactrim which she declined
Vital Signs / Physical Exam
Vital Signs
Vital Signs
Temp Pulse Resp BP Pulse Ox
97.9 F 100 15 135/81 96
09/24/23 07:05 09/24/23 07:28 09/24/23 07:28 09/24/23 06:00 09/24/23 07:28
Physical Exam
Constitutional: No Acute Distress
Cardiovascular: Regular Rate and S1/S2; Negative Murmur or Rub
Pulmonary: Clear and Symmetric; Negative Wheezes or Rales
Gastrointestinal: Soft, Non Tender, Non Distended and Normal Bowel Sounds
Skin: Warm and Dry; Negative Rash or Jaundice
Objective Data
Lab Data
Lab Results
09/24/23 03:54
09/24/23 03:54
Estimated Creat Clear > 125 ml/min 09/24/23 03:54
Lactic Acid 1.6 mmol/L (0.7-2.0) 09/19/23 22:10
Total Bilirubin 0.5 mg/dl (0.2-1.3) 09/19/23 14:15
AST 26 U/L (14-36) 09/19/23 14:15
ALT 12 U/L (0-35) 09/19/23 14:15
Alkaline Phosphatase 97 U/L (38-126) 09/19/23 14:15
Most recent labs reviewed.
Micro Results:
09/21/23 15:01 Catheter Tip Culture - Final
Picc Burkholderia cepacia
09/19/23 22:10 Blood Culture - Preliminary
Blood/Venous Pseudo fluorescens/putida
Gram negative bacilli
Gram Stain - Preliminary
09/21/23 22:37 Blood Culture - Preliminary
Blood/Venous No Growth in 48 hours- Final report to follow
09/21/23 22:30 Blood Culture - Preliminary
Blood/Venous No Growth in 48 hours- Final report to follow
09/19/23 14:15 Blood Culture - Preliminary
Blood/Venous No Growth in 4 days- Final report to follow
09/19/23 22:10 Influenza Types A & B (KENNETH) - Final
Nasal Swab Negative for Influenza A & B, NAAT
Negative results must be combined with clinical observations
and patient history.
Nucleic Acid Amplification test (NAAT)performed on the
[employer] platform.
Care Review
Plan reviewed with: Physician (Dr Kirk - [facility])
[2023-09-24] MEDS: NSS (PRESERVATIVE FREE) 0.5 ML IV (12:58)
[2023-09-24] MEDS: BENADRYL 250 MG IV (12:59)
[2023-09-24] MEDS: NSS 1000 IV (13:05)
--- NOTE | 2023-09-24 13:44 | CM ---
Patient with Hx Mast Cell Activation Syndrome with Dx Gram-negative bacteremia secondary to PICC line. O2 3L. Receiving Subutex, IV Benadryl, IVF. IV Dilaudid switched to PO. Peripheral IV line. PT 09/21 recommends HH.
Met with patient and called patient's mother on speaker phone in patient's room; attempted to speak with her mother to engage her in a discussion about the patient returning home today. Her mother immediately hung up the phone.
Went into room to see patient and her mother and stepfather were there; introduced myself and her mother immediately left the room and would not return. Spoke with patient's stepfather who states that they cannot allow Mary to return home as there
are times when her [employer] caregivers cancel and they cannot take care of her. Stepfather states they are planning on moving to a smaller house that will not accommodate Mary's needs.
Patient gave permission for CM to contact her only other relative which is her father.
Spoke with Abdi, father; informed him that Mary's mother is not permitting her to return home- he stated he was appalled and upset for his daughter. He says that the mother's home was all set up with handicap access, with bedroom on first
floor, and he feels she has everything in place that she needs. He cannot take the patient into his 2 story townhouse, with 5 [address] and 16 steps up to bedroom. Also he states that his daughter cannot tolerate food smells and their kitchen is too
close to the bedroom so they would not be able to continue to cook food. Abdi shares that referrals have been made previously to LTACs previously when her mother said she would not take her home, and they declined her because she would have no
where to go after a short stay at LTAC.
Spoke with Susanna, PT & Linda, OT; requested updated therapy notes today.
Spoke with Mimi, Nurse Coordinator, [facility] ([place] [phone]); informed her referral on hold as patient is not ready for d/c home today.
Plan LTAC referrals once updated therapy notes are available.
[2023-09-24] MEDS: SINEMET 25-100 2 TABLET TUBE ×2 (14:01→17:29)
[2023-09-24 14:13] LABS: Glucose - Point of Care 135 mg/dl (70-99)
[2023-09-24] MEDS: NON-FORMULARY ITEM 200 MG PO (15:32)
--- NOTE | 2023-09-24 15:47 | W.PN.HOSP.TC ---
Today's Communication/Plan
-
Replace PICC line
Continue oral antibiotics
Continue current analgesic and antihistamine regimen
Disposition efforts.
Assessment / Plan
Assessment / Plan
Impression:
Gram-negative bacteremia due to chronic infected PICC line.
Fever on admission with no evidence of sepsis (tachycardia likely fever mediated)
Conditions prior to admission:
1. Mast cell activation syndrome.
2. Chronic dystonic reaction.
3. Orthostatic hypotension with postural orthostatic and
tachycardia syndrome.
4. Dopa sensitive dystonia.
5. Steroid-induced diabetes.
6. Prior history of deep venous thrombosis and pulmonary embolism.
7. Chronic pain syndrome.
8. Migraine headaches.
9. Gastroesophageal reflux disease.
10. Benzodiazepine and opiate dependence.
11. Restless legs syndrome.
12. Insomnia.
13. History of vocal cord dysfunction.
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
15. Gastroparesis.
16. 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
17. 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
Plan:
Gram-negative bacteremia secondary to PICC line
PICC line removed
Blood culture with Pseudo fluorescens/putida
Repeated blood cultures negative for 48 hours.
PICC line replaced on 09/23
Antibiotics changed to oral Cipro on 09/22 to complete course through 10/05. ECG with normal QTc.
GJ tube in place with buried bumper.
Replaced by interventional radiology on 09/22
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
#Mast Cell Activation Syndrome
#DOPA-Responsive Dystonia
-follows with Dr. Lizabeth Villanueva at [facility] hematology.
- Continue Ativan / Benadryl (pump)
�-cont Gleevac ,steroids
�--Levalbuterol as needed, to do her eyedrops
-Continue carbidopa levodopa
-prednisone continued
-Consult HEME
# dystonia/movement disorder-patient apparently has dystonic features with her mast cell activation syndrome. I could not find in literature as a routine clinical presentation but according to patient apparently this is very unusual feature which
was noted in few other patients . She is on IV Benadryl pump at 15 mg/h at home. Yesterday she had 2 episodes of them requiring as needed Ativan. In view of increased need of breakthrough medication consulted neurology.
-baclofen continued
-sinemet continued
# Chronic pain syndrome-on high doses of narcotics including p.o. Dilaudid and Suboxone at home. Again unclear the source of her pain.
#GERD
-famotidine continued
-acipHex continued
-simethicone continued
#iron def anemia
-ferrous sulfate continued
#hxt of tachycardia
-EKG with sinus tachycardia
-propranolol continued
#Chronic Nausea / Esophageal Dysmotility/gastroparesis
#History GJ tube
�- Continue diet as tolerated.
�- Continue G-tube to gravity for chronic nausea.
�- Meds via J-tube.
-Zofran every 8 hours as needed
-Continue Pepcid
-emend continued
- PEG tube site without any signs of cellulitis. CT of the abdomen pelvis shows no subcutaneous collection around the PEG tube and it is in place.
�
#Steroid-Induced DM-II
�- Continue basal insulin and add SSI coverage as needed.
-lantus 15u daily
-lispro 8u before meals
#Steroid-Induced Osteoporosis
#Chronic Pain Syndrome secondary to the above on chronic opiates
�- Continue buprenorphine 2 mg 4 times daily , Dilaudid 8 mg as needed
�- PT / OT evaluations.
�- Follow-up with usual donor specialist after discharge.
#allergy induced asthma
#chornic hypoxic respiratory failure
-albuterol continued
-budesonide continued
-cetirizine continued
-cromolyn continued
#Migraine Hx
ODT Nurtec as needed
#Restless leg syndrome
-Continue baclofen
#History of DVT / PE
#Takes subcu Lovenox 100 mg twice daily
DNR on admission
Anticipated Discharge: 24 - 48 hours
Subjective/Interval History
-
Date of Service: September 24, 2023
Objective Data
-
Labs:
Laboratory Results
09/24/23
03:54
WBC 5.9
Hgb 10.6 L
Hct 33.0 L
Plt Count 299
Sodium 138
Potassium 4.1
Chloride 105
Carbon Dioxide 29
BUN 6 L
Creatinine 0.4 L
Glucose 127 H
Calcium 9.1
Vital Signs:
Vital Signs
Temp Pulse Resp BP Pulse Ox
98.0 F 93 9 130/92 94
09/24/23 11:05 09/24/23 14:00 09/24/23 14:00 09/24/23 14:00 09/24/23 14:00
I&O
09/23/23 09/24/23 09/25/23
06:59 06:59 06:59
Intake Total 2110 / 2110 1790 / 1790 240 / 240
Output Total 950 / 950 650 / 1550 1400 / 1400
Balance 1160 / 1160 1140 / 240 -1160 / -1160
Physical Exam
-
General: Well Developed and No Apparent Distress
HEENT: Normocephalic, Atraumatic and Moist Mucous Membranes
Respiratory: Clear to Auscultation
Cardiac: Regular Rhythm and S1/S2; Negative Murmur, Rub or Gallop
GI: Soft, Nontender, Nondistended and Normal Bowel Sounds; Negative Organomegaly
Rectal: Deferred by Provider
Musculoskeletal: No Clubbing, No Cyanosis and No Edema
Skin: Negative Rash
Neuro: Nonfocal/Grossly Intact
[2023-09-24] MEDS: ZYRTEC 10 MG TUBE ×2 (15:56→22:15)
[2023-09-24] MEDS: DILAUDID 8 MG PO (17:35)
[2023-09-24 17:42] LABS: Glucose - Point of Care 129 mg/dl (70-99)
--- NOTE | 2023-09-24 18:52 | PTCARENOTE ---
Pt received from previous RN. Assessment unchanged. Tearful/anxious. Reports 8/10 neck pain, medicated with PO dilaudid. GJ tube intact. G tube to gravity, clamp for meds/meals. IVF and benadryl gtt infrusing via RAC without complication.
Eating dinner at present. Call sanchez within reach. Plan of care ongoing.
[2023-09-24] MEDS: DUONEB 3 ML INH (19:16)
[2023-09-24] MEDS: ATIVAN 2 MG SL (20:57)
[2023-09-24 21:28] LABS: Glucose - Point of Care 104 mg/dl (70-99)
[2023-09-24] MEDS: FEOSOL 325 MG PO (22:15)
[2023-09-25] VITALS (16 sets, daily range): BP systolic 102–137; BP diastolic 61–107; PULSE 95–115; O2SAT 96
--- NOTE | 2023-09-25 01:47 | PTCARENOTE ---
Received pt at change of shift. Pt was a bit tearful stating she 'had a hard day'. Provided emotional support to pt. Pt able to take all medications either orally or through her GJ tube. Tolerated well. Set up pt at bedside to get washed in
bed. Pt offered no complaints at this time. Resting in bed with call sanchez in reach.
[2023-09-25] MEDS: BENADRYL 250 MG IV ×2 (05:41→21:20)
[2023-09-25] MEDS: SINEMET 25-100 1.5 TABLET TUBE ×2 (05:45→09:52)
[2023-09-25] MEDS: LIORESAL 10 MG TUBE ×3 (05:46→21:36)
[2023-09-25] MEDS: ZOFRAN 4 MG IV (06:04)
[2023-09-25] MEDS: PULMICORT 0.5 MG INH ×2 (07:31→19:05)
[2023-09-25] MEDS: DUONEB 3 ML INH ×2 (07:32→19:05)
[2023-09-25] MEDS: ATIVAN 2 MG SL ×3 (08:17→20:50)
[2023-09-25] MEDS: BENADRYL 25 MG IV ×3 (08:19→20:51)
[2023-09-25] MEDS: MIRALAX 17 GRAMS PO (08:23)
[2023-09-25] MEDS: LOVENOX 100 MG SC ×2 (08:23→21:22)
[2023-09-25] MEDS: NSS (PRESERVATIVE FREE) 16 ML IV ×2 (08:24→21:21)
[2023-09-25] MEDS: PEPCID 40 MG IV ×2 (08:24→21:21)
[2023-09-25] MEDS: CIPRO 750 MG PO ×2 (08:25→21:20)
[2023-09-25] MEDS: HYDREA 500 MG PO ×2 (08:25→21:21)
[2023-09-25] MEDS: INDERAL 10 MG TUBE ×3 (08:25→21:34)
[2023-09-25] MEDS: DELTASONE 10 MG TUBE ×2 (08:25→21:21)
[2023-09-25] MEDS: SUBUTEX 2 MG SL ×4 (08:26→21:34)
[2023-09-25] MEDS: PROTONIX 40 MG PO ×2 (08:26→21:20)
[2023-09-25] MEDS: VITAMIN B1 100 MG TUBE (08:26)
[2023-09-25] MEDS: BACTROBAN 2% OINTMENT 1 APPLIC TOPICAL ×3 (08:27→21:24)
[2023-09-25] MEDS: DESENEX/MITRAZOL/ZEASORB 1 APPLIC TOPICAL ×2 (08:27→21:25)
[2023-09-25] MEDS: GASTROCROM 300 MG PO ×4 (08:28→22:07)
[2023-09-25] MEDS: NON-FORMULARY ITEM 1 MG PO ×2 (08:30→21:23)
[2023-09-25] MEDS: NON-FORMULARY ITEM 80 MG PO (08:31)
[2023-09-25] MEDS: NOVOLOG FLEXPEN-LOW RESISTANCE SC ×2 (08:32→18:03)
[2023-09-25] MEDS: ZADITOR 1 DROP BOTH EYES ×2 (08:35→21:25)
[2023-09-25] MEDS: CLARITIN 10 MG PO (08:35)
[2023-09-25 08:43] LABS: Glucose - Point of Care 97 mg/dl (70-99)
--- NOTE | 2023-09-25 09:00 | W.PN.ONC ---
Today's Communication / Plan
-
Patient appears to be have improved control of mast cell activation
Since initiating ketotifen fumarate on last admission she has only had 1 opportunity for use of epi
Continue antibiotics as per primary team
CBC stable
PICC line replaced
Continue to follow-up with her outpatient hematology team
Will sign off
Impression
Impression
Mast cell activation syndrome
Subjective/Objective
Subjective/Objective
Patient states she feels well today. Anxious about discharge due to disposition at home.
Vital Signs:
Vital Signs
Temp Pulse Resp BP Pulse Ox
98.3 F 108 18 137/98 97
09/25/23 07:39 09/25/23 08:25 09/25/23 07:34 09/25/23 08:25 09/25/23 07:34
PE: Unchanged
Lab Results:
Laboratory Data
WBC 5.9 10^3/uL (4.8-10.8) 09/24/23 03:54
Hgb 10.6 g/dL (12.0-16.0) L 09/24/23 03:54
Plt Count 299 10^3/uL (130-400) 09/24/23 03:54
eGFR > 60.00 09/24/23 03:54
[2023-09-25] MEDS: LANTUS 0.15 UNITS SC (09:51)
[2023-09-25] MEDS: NOVOLOG FLEXPEN 8 UNITS SC ×3 (09:52→18:03)
--- NOTE | 2023-09-25 12:27 | W.PN.ID1 ---
Date of Service
Date of Service: September 25, 2023
Today's Communication
- patient would likely benefit from getting future care at a tertiary care center or with her treating supervisor files/oncologist for this rare clinical entity
- ID service will no longer actively follow this patient please recall for further questions
Assessment / Plan
Pseudo fluorescens/putida bacteremia
Line Infection
- line removed
Fever - resolved
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
Gastroparesis
Numerous stated allergies - azithromycin, cefepime, vancomycin
Dystonia
- second GNR seen on the initial blood culture (likely the burkholderia)
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
- note both organisms with low virulence
- repeat blood cultures no growth to date
- continue ciprofloxacin 750 mg PO BID x 14 days through 10/05
- repeat EKG qtc remains below 500
- picc in place
- outpatient line will remain under the purview of Dr Villanueva who is aware of her admission and accepting her back under his management - he can further consider port
- patient would likely benefit from getting future care at a tertiary care center or with her treating supervisor files/oncologist for this rare clinical entity
- ID service will no longer actively follow this patient please recall for further questions
Chief Complaint
-: Bacteremia
Subjective / Review of Systems
fever resolved
bacteremia clearing
disposition challenging
Vital Signs / Physical Exam
Vital Signs
Vital Signs
Temp Pulse Resp BP Pulse Ox
98.7 F 101 14 120/85 94
09/25/23 11:45 09/25/23 10:00 09/25/23 10:00 09/25/23 10:00 09/25/23 10:00
Physical Exam
Constitutional: No Acute Distress
Cardiovascular: Regular Rate and S1/S2; Negative Murmur or Rub
Pulmonary: Clear and Symmetric; Negative Wheezes or Rales
Gastrointestinal: Soft, Non Tender, Non Distended and Normal Bowel Sounds
Skin: Warm and Dry; Negative Rash or Jaundice
Lines: PICC
Objective Data
Lab Data
Lab Results
09/24/23 03:54
09/24/23 03:54
Estimated Creat Clear > 125 ml/min 09/24/23 03:54
Lactic Acid 1.6 mmol/L (0.7-2.0) 09/19/23 22:10
Total Bilirubin 0.5 mg/dl (0.2-1.3) 09/19/23 14:15
AST 26 U/L (14-36) 09/19/23 14:15
ALT 12 U/L (0-35) 09/19/23 14:15
Alkaline Phosphatase 97 U/L (38-126) 09/19/23 14:15
Most recent labs reviewed.
Micro Results:
09/19/23 22:10 Blood Culture - Preliminary
Blood/Venous Pseudo fluorescens/putida
Gram negative bacilli
Gram Stain - Preliminary
09/21/23 22:30 Blood Culture - Preliminary
Blood/Venous No Growth in 72 hours- Final report to follow
09/21/23 22:37 Blood Culture - Preliminary
Blood/Venous No Growth in 72 hours- Final report to follow
09/19/23 14:15 Blood Culture - Final
Blood/Venous No Growth - Final Report
09/21/23 15:01 Catheter Tip Culture - Final
Picc Burkholderia cepacia
09/19/23 22:10 Influenza Types A & B (KENNETH) - Final
Nasal Swab Negative for Influenza A & B, NAAT
Negative results must be combined with clinical observations
and patient history.
Nucleic Acid Amplification test (NAAT)performed on the
[employer] platform.
[2023-09-25 12:42] LABS: Glucose - Point of Care 152 mg/dl (70-99)
[2023-09-25] MEDS: NOVOLOG FLEXPEN-LOW RESISTANCE 1 UNITS SC (13:08)
[2023-09-25] MEDS: SINEMET 25-100 2 TABLET TUBE ×2 (13:09→18:00)
[2023-09-25] MEDS: NON-FORMULARY ITEM 100 MG PO (13:10)
--- NOTE | 2023-09-25 14:22 | CM ---
Patient with Hx Mast Cell Activation Syndrome with Dx Gram-negative bacteremia secondary to PICC line. O2 3L. Receiving Subutex, IV Benadryl gtt. PICC line placed. PT & OT Misti 09/24; recommend SNF vs home.
Received phone call from [facility] ([place] [phone]); they will deliver her IV meds to the hospital bedside, once they are notified patient is ready for d/c to home.
Met with patient this morning and had discussion to motivate her to work hard with PT/OT with the goal to be more independent, for her benefit as well as to hopefully appeal to her mother to allow her to return home. Patient states she is motivated
to become more independent with the goal to eventually have her own apartment again - she was last living in her own apartment 3 yrs ago. Patient has been working with the [facility] from [facility] re; disability paperwork and was told she may have
that in place in 4-6 months. The SW was looking into housing vouchers for her. Mary provided with her Leni name/#.
Spoke with [facility]; she is working on disability paperwork for the patient and will confirm once the paperwork is submitted. She has contacted the [facility] in an effort to find her alternate housing.
Phone call to [employer] [facility] ([place] [phone]); left message requesting callback to discuss services for this patient.
Spoke with Marcos, administrative support assoc [employer] ([place] [phone], cell [phone]); he notified her mother this morning that they are ready to provide caregivers again and that all the shifts are covered. Her mother told him that she doesn't want
the patient to return home. Their DON confirmed that the patient has been compliant with her meds for the past 6 months. [employer] last missed covering the patient for shifts: 09/01, 2 shifts in July 2023. He feels there is no issue with shift
coverage.
Spoke with [facility]; she will review the referral and present to their committee for acceptance - she will let know tomorrow.
Case discussed with Brigida Leavitt CM Director.
Keaton Kirk & Sergio & nurse updated with d/c plans.
Plan follow up with [facility] tomorrow.
--- NOTE | 2023-09-25 15:57 | W.PN.HOSP.TC ---
Today's Communication/Plan
-
Afebrile with clear repeated blood cultures
PICC line has been replaced.
To complete course of oral antibiotics as outlined
Preadmission medication regimen including Benadryl infusion, benzodiazepines and opiates continued
Patient is medically stable for discharge
Assessment / Plan
Assessment / Plan
Impression:
Gram-negative bacteremia due to chronic infected PICC line.
Fever on admission with no evidence of sepsis (tachycardia likely fever mediated)
Conditions prior to admission:
1. Mast cell activation syndrome.
2. Chronic dystonic reaction.
3. Orthostatic hypotension with postural orthostatic and
tachycardia syndrome.
4. Dopa sensitive dystonia.
5. Steroid-induced diabetes.
6. Prior history of deep venous thrombosis and pulmonary embolism.
7. Chronic pain syndrome.
8. Migraine headaches.
9. Gastroesophageal reflux disease.
10. Benzodiazepine and opiate dependence.
11. Restless legs syndrome.
12. Insomnia.
13. History of vocal cord dysfunction.
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
15. Gastroparesis.
16. 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
17. 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
Plan:
Gram-negative bacteremia secondary to PICC line
PICC line removed
Blood culture with Pseudo fluorescens/putida
Repeated blood cultures negative for 48 hours.
PICC line replaced on 09/23
Antibiotics changed to oral Cipro on 09/22 to complete course through 10/05. ECG with normal QTc.
GJ tube in place with buried bumper.
Replaced by interventional radiology on 09/22
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
#Mast Cell Activation Syndrome
#DOPA-Responsive Dystonia
-follows with Dr. Lizabeth Villanueva at [facility] hematology.
- Continue Ativan / Benadryl (pump)
�-cont Gleevac ,steroids
�--Levalbuterol as needed, to do her eyedrops
-Continue carbidopa levodopa
-prednisone continued
-Consult HEME
# dystonia/movement disorder-patient apparently has dystonic features with her mast cell activation syndrome. I could not find in literature as a routine clinical presentation but according to patient apparently this is very unusual feature which
was noted in few other patients . She is on IV Benadryl pump at 15 mg/h at home. Yesterday she had 2 episodes of them requiring as needed Ativan. In view of increased need of breakthrough medication consulted neurology.
-baclofen continued
-sinemet continued
# Chronic pain syndrome-on high doses of narcotics including p.o. Dilaudid and Suboxone at home. Again unclear the source of her pain.
#GERD
-famotidine continued
-acipHex continued
-simethicone continued
#iron def anemia
-ferrous sulfate continued
#hxt of tachycardia
-EKG with sinus tachycardia
-propranolol continued
#Chronic Nausea / Esophageal Dysmotility/gastroparesis
#History GJ tube
�- Continue diet as tolerated.
�- Continue G-tube to gravity for chronic nausea.
�- Meds via J-tube.
-Zofran every 8 hours as needed
-Continue Pepcid
-emend continued
- PEG tube site without any signs of cellulitis. CT of the abdomen pelvis shows no subcutaneous collection around the PEG tube and it is in place.
�
#Steroid-Induced DM-II
�- Continue basal insulin and add SSI coverage as needed.
-lantus 15u daily
-lispro 8u before meals
#Steroid-Induced Osteoporosis
#Chronic Pain Syndrome secondary to the above on chronic opiates
�- Continue buprenorphine 2 mg 4 times daily , Dilaudid 8 mg as needed
�- PT / OT evaluations.
�- Follow-up with usual microbial specialist after discharge.
#allergy induced asthma
#chornic hypoxic respiratory failure
-albuterol continued
-budesonide continued
-cetirizine continued
-cromolyn continued
#Migraine Hx
ODT Nurtec as needed
#Restless leg syndrome
-Continue baclofen
#History of DVT / PE
#Takes subcu Lovenox 100 mg twice daily
DNR on admission
Anticipated Discharge: Within 24 hours
Subjective/Interval History
-
Date of Service: September 25, 2023
Objective Data
-
Vital Signs:
Vital Signs
Temp Pulse Resp BP Pulse Ox
98.4 F 109 14 122/94 95
09/25/23 15:41 09/25/23 14:51 09/25/23 14:51 09/25/23 14:51 09/25/23 14:51
I&O
09/24/23 09/25/23 09/26/23
06:59 06:59 06:59
Intake Total 1790 / 1790 240 / 240 480 / 480
Output Total 650 / 1550 1400 / 1400 500 / 500
Balance 1140 / 240 -1160 / -1160 -20 / -20
[2023-09-25 18:00] LABS: Glucose - Point of Care 96 mg/dl (70-99)
[2023-09-25] MEDS: ZYRTEC 10 MG TUBE ×2 (18:00→21:34)
[2023-09-25] MEDS: MYLICON 80 MG PO (18:48)
[2023-09-25] MEDS: FEOSOL 325 MG PO (21:33)
[2023-09-25 22:03] LABS: Glucose - Point of Care 132 mg/dl (70-99)
[2023-09-26] VITALS (15 sets, daily range): BP systolic 105–142; BP diastolic 67–103; PULSE 119–152; O2SAT 98
--- NOTE | 2023-09-26 04:58 | PTCARENOTE ---
Pt had one of her episodes in the begging of shift around 2039. PT was able to sleep the rest of the night without complaint. Pt did not have a BM this shift. ABD is round distended hyperactive bowel sounds, Pt feels 'bloated', she wants to try and
order fruit with breakfast to help her move her bowels. Pt refuses Senokot due to past HX of causing 'stomach cramping'.
[2023-09-26] MEDS: LIORESAL 10 MG TUBE ×3 (05:37→23:12)
[2023-09-26] MEDS: SINEMET 25-100 1.5 TABLET TUBE ×2 (05:38→11:18)
[2023-09-26] MEDS: ATIVAN 2 MG SL ×3 (05:47→17:50)
[2023-09-26] MEDS: BENADRYL 25 MG IV ×4 (05:47→16:49)
[2023-09-26] MEDS: ZOFRAN 4 MG IV ×2 (05:47→18:14)
[2023-09-26] MEDS: PULMICORT 0.5 MG INH ×2 (07:42→20:44)
[2023-09-26] MEDS: DUONEB 3 ML INH ×2 (07:42→20:44)
[2023-09-26 08:04] LABS: Glucose - Point of Care 106 mg/dl (70-99)
[2023-09-26] MEDS: GASTROCROM 300 MG PO ×4 (08:13→23:13)
[2023-09-26] MEDS: FLUSH (NSS) 2 FLUSH IV ×2 (09:29→16:50)
[2023-09-26] MEDS: NOVOLOG FLEXPEN 8 UNITS SC ×3 (09:34→17:52)
[2023-09-26] MEDS: NOVOLOG FLEXPEN-LOW RESISTANCE SC ×2 (09:34→14:02)
[2023-09-26] MEDS: LANTUS 0.15 UNITS SC (10:58)
[2023-09-26] MEDS: NSS (PRESERVATIVE FREE) 16 ML IV ×2 (10:59→20:15)
[2023-09-26] MEDS: NON-FORMULARY ITEM 80 MG PO (11:09)
[2023-09-26] MEDS: BACTROBAN 2% OINTMENT 1 APPLIC TOPICAL ×3 (11:10→23:11)
[2023-09-26] MEDS: CIPRO 750 MG PO ×2 (11:11→20:11)
[2023-09-26] MEDS: CLARITIN 10 MG PO (11:12)
[2023-09-26] MEDS: DELTASONE 10 MG TUBE ×2 (11:12→20:12)
[2023-09-26] MEDS: HYDREA 500 MG PO ×2 (11:13→20:13)
[2023-09-26] MEDS: DESENEX/MITRAZOL/ZEASORB 1 APPLIC TOPICAL ×2 (11:14→20:12)
[2023-09-26] MEDS: INDERAL 10 MG TUBE ×3 (11:15→23:12)
[2023-09-26] MEDS: PROTONIX 40 MG PO ×2 (11:15→20:13)
[2023-09-26] MEDS: LOVENOX 100 MG SC ×2 (11:15→20:14)
[2023-09-26] MEDS: NON-FORMULARY ITEM 1 MG PO ×2 (11:16→20:20)
[2023-09-26] MEDS: SUBUTEX 2 MG SL ×4 (11:17→23:12)
[2023-09-26] MEDS: VITAMIN B1 100 MG TUBE (11:19)
[2023-09-26] MEDS: ZADITOR 1 DROP BOTH EYES ×2 (11:20→20:21)
[2023-09-26] MEDS: PEPCID 40 MG IV ×2 (11:32→20:14)
[2023-09-26] MEDS: NSS 1000 IV (11:44)
[2023-09-26 13:43] LABS: Glucose - Point of Care 140 mg/dl (70-99)
[2023-09-26] MEDS: NON-FORMULARY ITEM 100 MG PO (13:57)
--- NOTE | 2023-09-26 14:04 | CM ---
Addendum entered by Luci Garcia RN 09/29/23 14:25:
Text message received from Leandro Gilman; case is denied by [employer] as patient can go to lower level of care. MD can pursue denial management by completing P2P by calling [phone] and deadline for P2P is 10/03/23.
Case discussed with Dr Khan, Physician Advisor; he will do P2P today.
Met with patient; she texted her mother but has not called her again, and has no update re; mother's willingness to take her home.
Plan follow up after Peer to Peer Appeal is completed.
Addendum entered by Luci Garcia RN 09/28/23 08:49:
Text message received from Leandro Gilman on 09/25: they submitted request for auth via [employer], reference # [id number].
Original Note:
Patient with Hx Mast Cell Activation Syndrome with Dx Gram-negative bacteremia secondary to PICC line. O2 3L. Receiving Subutex, IV Benadryl gtt. PICC line placed. PT & OT Evals 09/24; recommend SNF vs home.
Notified by Kimani Bonner Adms Coordiantor; none of their 4 SNFs can accept the patient, due to her IV Benadryl gtt.
Notified by Janki Randle Adms Coordinator; none of their 20 SNFs can accept the patient, due to her IV Benadryl gtt.
Spoke with [facility]; updated clinical info sent via [employer] - they submitted request today to patient's insurance for auth. Kalina requested an email stating that 24 SNFs had denied to accept, which may be used for insurance auth
request ---> sent to her email at [email or web address].
Message from JHONNY [facility]; she can apply for the [employer]ou[employer] Program for this patient, & will be contacting the office today to get the application that she needs to submit by mail. The waiting list for the Housing
Vouchers program through [employer] is closed at this time.
Met with patient this morning; informed her that [facility] has accepted and insurance auth is pending, and she agrees to this plan.
Plan [facility] once insurance approves.
[2023-09-26] MEDS: SINEMET 25-100 2 TABLET TUBE ×2 (14:17→17:51)
[2023-09-26] MEDS: BENADRYL 250 MG IV (14:18)
--- NOTE | 2023-09-26 15:31 | W.PN.HOSP.TC ---
Today's Communication/Plan
-
Afebrile
On oral antibiotics.
Medically cleared for placement to LTAC pending insurance authorization.
Assessment / Plan
Assessment / Plan
Impression:
Gram-negative bacteremia due to chronic infected PICC line.
Fever on admission with no evidence of sepsis (tachycardia likely fever mediated)
Conditions prior to admission:
1. Mast cell activation syndrome.
2. Chronic dystonic reaction.
3. Orthostatic hypotension with postural orthostatic and
tachycardia syndrome.
4. Dopa sensitive dystonia.
5. Steroid-induced diabetes.
6. Prior history of deep venous thrombosis and pulmonary embolism.
7. Chronic pain syndrome.
8. Migraine headaches.
9. Gastroesophageal reflux disease.
10. Benzodiazepine and opiate dependence.
11. Restless legs syndrome.
12. Insomnia.
13. History of vocal cord dysfunction.
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
15. Gastroparesis.
16. 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
17. 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
Plan:
Gram-negative bacteremia secondary to PICC line
PICC line removed
Blood culture with Pseudo fluorescens/putida
Repeated blood cultures negative for 48 hours.
PICC line replaced on 09/23
Antibiotics changed to oral Cipro on 09/22 to complete course through 10/05. ECG with normal QTc.
GJ tube in place with buried bumper.
Replaced by interventional radiology on 09/22
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
#Mast Cell Activation Syndrome
#DOPA-Responsive Dystonia
-follows with Dr. Lizabeth Villanueva at [facility] hematology.
- Continue Ativan / Benadryl (pump)
�-cont Gleevac ,steroids
�--Levalbuterol as needed, to do her eyedrops
-Continue carbidopa levodopa
-prednisone continued
-Consult HEME
# dystonia/movement disorder-patient apparently has dystonic features with her mast cell activation syndrome. I could not find in literature as a routine clinical presentation but according to patient apparently this is very unusual feature which
was noted in few other patients . She is on IV Benadryl pump at 15 mg/h at home. Yesterday she had 2 episodes of them requiring as needed Ativan. In view of increased need of breakthrough medication consulted neurology.
-baclofen continued
-sinemet continued
# Chronic pain syndrome-on high doses of narcotics including p.o. Dilaudid and Suboxone at home. Again unclear the source of her pain.
#GERD
-famotidine continued
-acipHex continued
-simethicone continued
#iron def anemia
-ferrous sulfate continued
#hxt of tachycardia
-EKG with sinus tachycardia
-propranolol continued
#Chronic Nausea / Esophageal Dysmotility/gastroparesis
#History GJ tube
�- Continue diet as tolerated.
�- Continue G-tube to gravity for chronic nausea.
�- Meds via J-tube.
-Zofran every 8 hours as needed
-Continue Pepcid
-emend continued
- PEG tube site without any signs of cellulitis. CT of the abdomen pelvis shows no subcutaneous collection around the PEG tube and it is in place.
�
#Steroid-Induced DM-II
�- Continue basal insulin and add SSI coverage as needed.
-lantus 15u daily
-lispro 8u before meals
#Steroid-Induced Osteoporosis
#Chronic Pain Syndrome secondary to the above on chronic opiates
�- Continue buprenorphine 2 mg 4 times daily , Dilaudid 8 mg as needed
�- PT / OT evaluations.
�- Follow-up with usual cnc specialist after discharge.
#allergy induced asthma
#chornic hypoxic respiratory failure
-albuterol continued
-budesonide continued
-cetirizine continued
-cromolyn continued
#Migraine Hx
ODT Nurtec as needed
#Restless leg syndrome
-Continue baclofen
#History of DVT / PE
#Takes subcu Lovenox 100 mg twice daily
DNR on admission
Anticipated Discharge: 24 - 48 hours
Subjective/Interval History
-
Date of Service: September 26, 2023
Objective Data
-
Vital Signs:
Vital Signs
Temp Pulse Resp BP Pulse Ox
98.7 F 101 15 122/80 96
09/26/23 11:25 09/26/23 12:35 09/26/23 12:35 09/26/23 12:35 09/26/23 13:09
I&O
09/25/23 09/26/23 09/27/23
06:59 06:59 06:59
Intake Total 240 / 240 1080 / 1080 525 / 525
Output Total 1400 / 1400 1050 / 1050 650 / 650
Balance -1160 / -1160 30 / 30 -125 / -125
Physical Exam
-
General: Well Developed and No Apparent Distress
HEENT: Normocephalic, Atraumatic and Moist Mucous Membranes
Respiratory: Clear to Auscultation
Cardiac: Regular Rhythm and S1/S2; Negative Murmur, Rub or Gallop
GI: Soft, Nontender, Nondistended and Normal Bowel Sounds; Negative Organomegaly
Rectal: Deferred by Provider
Musculoskeletal: No Clubbing, No Cyanosis and No Edema
Skin: Negative Rash
Neuro: Nonfocal/Grossly Intact
[2023-09-26] MEDS: ZYRTEC 10 MG TUBE ×2 (16:28→23:17)
[2023-09-26 16:43] LABS: Glucose - Point of Care 197 mg/dl (70-99)
[2023-09-26] MEDS: NOVOLOG FLEXPEN-LOW RESISTANCE 1 UNITS SC (17:52)
[2023-09-26 22:10] LABS: Glucose - Point of Care 157 mg/dl (70-99)
[2023-09-26] MEDS: FEOSOL 325 MG PO (23:11)
[2023-09-27] VITALS (13 sets, daily range): BP systolic 114–142; BP diastolic 68–103
[2023-09-27] MEDS: BENADRYL 25 MG IV ×4 (01:22→22:29)
[2023-09-27] MEDS: ATIVAN 2 MG SL ×4 (01:27→22:37)
[2023-09-27] MEDS: BENADRYL 250 MG IV ×2 (03:32→21:01)
--- NOTE | 2023-09-27 03:42 | PTCARENOTE ---
Pt experienced one episode dystonia, relieved by PRN medications. IV Benadryl remains in place at 15 ml/hr per order. Pt had one nocturnal episode of incontinence, but was able to ask for bedpan for following voids. Pt demonstrates appropriate use
of call sanchez.
[2023-09-27] MEDS: SINEMET 25-100 1.5 TABLET TUBE ×2 (06:22→10:50)
[2023-09-27] MEDS: LIORESAL 10 MG TUBE ×3 (06:23→21:14)
[2023-09-27 07:34] LABS: Glucose - Point of Care 103 mg/dl (70-99)
[2023-09-27] MEDS: PULMICORT 0.5 MG INH ×2 (08:01→19:49)
[2023-09-27] MEDS: DUONEB 3 ML INH ×2 (08:03→19:49)
[2023-09-27] MEDS: NOVOLOG FLEXPEN-LOW RESISTANCE SC ×3 (08:16→17:14)
[2023-09-27] MEDS: NON-FORMULARY ITEM 80 MG PO (08:29)
[2023-09-27] MEDS: CIPRO 750 MG PO ×2 (08:30→21:07)
[2023-09-27] MEDS: DELTASONE 10 MG TUBE ×2 (08:31→21:08)
[2023-09-27] MEDS: CLARITIN 10 MG PO (08:31)
[2023-09-27] MEDS: DESENEX/MITRAZOL/ZEASORB 1 APPLIC TOPICAL ×2 (08:32→21:10)
[2023-09-27] MEDS: PROTONIX 40 MG PO ×2 (08:34→21:08)
[2023-09-27] MEDS: SUBUTEX 2 MG SL ×4 (08:35→21:13)
[2023-09-27] MEDS: VITAMIN B1 100 MG TUBE (08:35)
[2023-09-27] MEDS: INDERAL 10 MG TUBE ×3 (08:35→21:09)
[2023-09-27] MEDS: LOVENOX 100 MG SC ×2 (08:37→21:10)
[2023-09-27] MEDS: ZOFRAN 4 MG IV ×2 (08:45→21:00)
[2023-09-27] MEDS: HYDREA 500 MG PO ×2 (08:50→21:09)
[2023-09-27] MEDS: BACTROBAN 2% OINTMENT 1 APPLIC TOPICAL ×3 (08:56→21:59)
[2023-09-27] MEDS: NON-FORMULARY ITEM 1 MG PO ×2 (08:57→21:12)
[2023-09-27] MEDS: LANTUS 0.15 UNITS SC (08:58)
[2023-09-27] MEDS: ZADITOR 1 DROP BOTH EYES ×2 (08:59→21:11)
[2023-09-27] MEDS: GASTROCROM 300 MG PO ×4 (09:06→21:36)
[2023-09-27] MEDS: NOVOLOG FLEXPEN 8 UNITS SC ×3 (09:08→17:44)
[2023-09-27] MEDS: NSS (PRESERVATIVE FREE) IV (10:45)
[2023-09-27] MEDS: PEPCID IV (10:45)
[2023-09-27] MEDS: PEPCID 54 MG IV ×2 (10:46→21:51)
--- NOTE | 2023-09-27 12:19 | CM ---
JHONNY reached out to Leni to check status of pending authorization.
It was not yet processed.
[2023-09-27] MEDS: DILAUDID 8 MG PO (12:44)
[2023-09-27 12:45] LABS: Glucose - Point of Care 147 mg/dl (70-99)
[2023-09-27] MEDS: LR 1000 IV (12:45)
[2023-09-27] MEDS: MIRALAX 17 GRAMS PO (12:45)
[2023-09-27] MEDS: NON-FORMULARY ITEM 200 MG PO (14:20)
[2023-09-27] MEDS: SINEMET 25-100 2 TABLET TUBE ×2 (14:21→17:10)
--- NOTE | 2023-09-27 14:54 | PTCARENOTE ---
Patient in bed, had an episode of muscle tightening this morning along with nausea. Ativan, Benadryl and Zofran administered with relief. Patient was able to tolerate meals today, no vomiting. IV Benadyl infusing along with Lactated Ringers drip.
Vital signs stable.
--- NOTE | 2023-09-27 14:57 | W.PN.HOSP.TC ---
Today's Communication/Plan
-
dc ready - cm aware
Assessment / Plan
Assessment / Plan
Impression:
Gram-negative bacteremia due to chronic infected PICC line.
Fever on admission with no evidence of sepsis (tachycardia likely fever mediated)
Conditions prior to admission:
1. Mast cell activation syndrome.
2. Chronic dystonic reaction.
3. Orthostatic hypotension with postural orthostatic and
tachycardia syndrome.
4. Dopa sensitive dystonia.
5. Steroid-induced diabetes.
6. Prior history of deep venous thrombosis and pulmonary embolism.
7. Chronic pain syndrome.
8. Migraine headaches.
9. Gastroesophageal reflux disease.
10. Benzodiazepine and opiate dependence.
11. Restless legs syndrome.
12. Insomnia.
13. History of vocal cord dysfunction.
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
15. Gastroparesis.
16. 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
17. 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
Plan:
Gram-negative bacteremia secondary to PICC line
PICC line removed
Blood culture with Pseudo fluorescens/putida
Repeated blood cultures negative for 48 hours.
PICC line replaced on 09/23
Antibiotics changed to oral Cipro on 09/22 to complete course through 10/05. ECG with normal QTc.
GJ tube in place with buried bumper.
Replaced by interventional radiology on 09/22
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
#Mast Cell Activation Syndrome
#DOPA-Responsive Dystonia
-follows with Dr. Lizabeth Villanueva at [facility] hematology.
- Continue Ativan / Benadryl (pump)
�-cont Gleevac ,steroids
�--Levalbuterol as needed, to do her eyedrops
-Continue carbidopa levodopa
-prednisone continued
-Consult HEME
# dystonia/movement disorder-patient apparently has dystonic features with her mast cell activation syndrome. I could not find in literature as a routine clinical presentation but according to patient apparently this is very unusual feature which
was noted in few other patients . She is on IV Benadryl pump at 15 mg/h at home. Yesterday she had 2 episodes of them requiring as needed Ativan. In view of increased need of breakthrough medication consulted neurology.
-baclofen continued
-sinemet continued
# Chronic pain syndrome-on high doses of narcotics including p.o. Dilaudid and Suboxone at home. Again unclear the source of her pain.
#GERD
-famotidine continued
-acipHex continued
-simethicone continued
#iron def anemia
-ferrous sulfate continued
#hxt of tachycardia
-EKG with sinus tachycardia
-propranolol continued
#Chronic Nausea / Esophageal Dysmotility/gastroparesis
#History GJ tube
�- Continue diet as tolerated.
�- Continue G-tube to gravity for chronic nausea.
�- Meds via J-tube.
-Zofran every 8 hours as needed
-Continue Pepcid
-emend continued
- PEG tube site without any signs of cellulitis. CT of the abdomen pelvis shows no subcutaneous collection around the PEG tube and it is in place.
�
#Steroid-Induced DM-II
�- Continue basal insulin and add SSI coverage as needed.
-lantus 15u daily
-lispro 8u before meals
#Steroid-Induced Osteoporosis
#Chronic Pain Syndrome secondary to the above on chronic opiates
�- Continue buprenorphine 2 mg 4 times daily , Dilaudid 8 mg as needed
�- PT / OT evaluations.
�- Follow-up with usual crime specialist after discharge.
#allergy induced asthma
#chornic hypoxic respiratory failure
-albuterol continued
-budesonide continued
-cetirizine continued
-cromolyn continued
#Migraine Hx
ODT Nurtec as needed
#Restless leg syndrome
-Continue baclofen
#History of DVT / PE
#Takes subcu Lovenox 100 mg twice daily
DNR on admission
Update 09/26 - no acute events overnight. LR bolus given. Spoke to CM - DC unlikely this weekend
Anticipated Discharge: > 48 hours
Subjective/Interval History
-
Date of Service: September 27, 2023
No acute events
Objective Data
-
Vital Signs:
Vital Signs
Temp Pulse Resp BP Pulse Ox
98.4 F 113 15 117/95 97
09/27/23 11:53 09/27/23 14:00 09/27/23 14:00 09/27/23 14:00 09/27/23 14:45
I&O
09/26/23 09/27/23 09/28/23
06:59 06:59 06:59
Intake Total 1080 / 1080 1525 / 1525 1320 / 1320
Output Total 1050 / 1050 2550 / 2550 1999 / 1999
Balance 30 / 30 -1025 / -1025 -680 / -680
Review of Systems
-
History Source: Patient
All other systems: Not reviewed unless documented
Physical Exam
-
General: Well Developed and No Apparent Distress
HEENT: Normocephalic, Atraumatic and Moist Mucous Membranes
Respiratory: Clear to Auscultation
Cardiac: Regular Rhythm and S1/S2; Negative Murmur, Rub or Gallop
GI: Soft, Nontender, Nondistended and Normal Bowel Sounds; Negative Organomegaly
Rectal: Deferred by Provider
Musculoskeletal: No Clubbing, No Cyanosis and No Edema
Skin: Negative Rash
Neuro: Nonfocal/Grossly Intact
Data Reviewed
-
CT Scan: Image personally visualized and interpreted and Report Reviewed by me
Labs: Labs Reviewed by me
[2023-09-27] MEDS: ZYRTEC 10 MG TUBE ×2 (17:09→21:13)
[2023-09-27 17:11] LABS: Glucose - Point of Care 156 mg/dl (70-99)
[2023-09-27] MEDS: FEOSOL 325 MG PO (21:08)
[2023-09-27 21:19] LABS: Glucose - Point of Care 138 mg/dl (70-99)
--- NOTE | 2023-09-27 23:47 | PTCARENOTE ---
Pt experienced episode of nausea, PRN zofran given per JUL. Nausea remained unrelieved and episode of dystonia followed. PRN benadryl given without relief. PRN ativan given with relief of symptoms. Benadryl gtt remains in place at 15mls/hr.
[2023-09-28] VITALS (12 sets, daily range): BP systolic 116–146; BP diastolic 63–97
[2023-09-28] MEDS: LR 1000 IV ×2 (01:18→12:58)
[2023-09-28] MEDS: LIORESAL 10 MG TUBE ×3 (06:31→20:04)
[2023-09-28] MEDS: SINEMET 25-100 1.5 TABLET TUBE ×2 (06:31→09:56)
[2023-09-28] MEDS: DESENEX/MITRAZOL/ZEASORB 1 APPLIC TOPICAL ×2 (08:10→20:07)
[2023-09-28] MEDS: LOVENOX 100 MG SC ×2 (08:10→20:05)
[2023-09-28] MEDS: SUBUTEX 2 MG SL ×4 (08:10→20:05)
[2023-09-28] MEDS: NOVOLOG FLEXPEN-LOW RESISTANCE SC ×2 (08:10→17:15)
[2023-09-28] MEDS: DELTASONE 10 MG TUBE ×2 (08:11→20:03)
[2023-09-28] MEDS: PROTONIX 40 MG PO ×2 (08:11→20:05)
[2023-09-28] MEDS: INDERAL 10 MG TUBE ×3 (08:11→20:05)
[2023-09-28] MEDS: CIPRO 750 MG PO ×2 (08:11→20:02)
[2023-09-28] MEDS: CLARITIN 10 MG PO (08:11)
[2023-09-28] MEDS: VITAMIN B1 100 MG TUBE (08:11)
[2023-09-28] MEDS: GASTROCROM 300 MG PO ×4 (08:12→20:06)
[2023-09-28] MEDS: HYDREA 500 MG PO ×2 (08:12→20:07)
[2023-09-28 08:18] LABS: Glucose - Point of Care 111 mg/dl (70-99)
[2023-09-28] MEDS: ZOFRAN 4 MG IV ×2 (08:34→20:25)
[2023-09-28] MEDS: DUONEB 3 ML INH ×2 (08:36→23:01)
[2023-09-28] MEDS: NOVOLOG FLEXPEN SC (09:50)
[2023-09-28] MEDS: BENADRYL 25 MG IV ×3 (09:53→20:27)
[2023-09-28] MEDS: ATIVAN 2 MG SL ×2 (09:53→16:09)
[2023-09-28] MEDS: ZADITOR 1 DROP BOTH EYES ×2 (09:56→20:07)
[2023-09-28] MEDS: BACTROBAN 2% OINTMENT 1 APPLIC TOPICAL ×3 (09:57→21:54)
[2023-09-28] MEDS: PEPCID 54 MG IV ×2 (09:57→21:54)
[2023-09-28] MEDS: NON-FORMULARY ITEM 80 MG PO (09:58)
[2023-09-28] MEDS: NON-FORMULARY ITEM 1 MG PO ×2 (09:59→20:08)
--- NOTE | 2023-09-28 10:43 | PTCARENOTE ---
Assumed care of patient at beginning of this shift from previous RN. Patient able to take po/j tube meds then c/o nausea; zofran given as order. She had an episode of dystonia, which patient described as mild; benadryl and ativan given as ordered
with relief. Morning accu check 111; due for lantus 15 units and mealtime novolog 8 units. Patient did not order breakfast d/t nausea; mealtime novolog not given. She is now ordering something to eat. Reviewed all with Dr West who instructed to
give lantus as ordered. Patient made aware that last dose of her own Ketotifen given this morning. She states she has no refills but thinks she may have more at home and will try to have someone bring in. See worklist for full assessment and vital
signs; see MAR for med administration.
[2023-09-28] MEDS: LANTUS 0.15 UNITS SC (11:10)
[2023-09-28] MEDS: NOVOLOG FLEXPEN-LOW RESISTANCE 1 UNITS SC (12:53)
[2023-09-28] MEDS: BENADRYL 250 MG IV (12:58)
[2023-09-28] MEDS: SINEMET 25-100 2 TABLET TUBE ×2 (13:00→17:17)
[2023-09-28 13:04] LABS: Glucose - Point of Care 176 mg/dl (70-99)
--- NOTE | 2023-09-28 13:10 | W.PN.HOSP.TC ---
Today's Communication/Plan
-
dc ready - cm aware
Assessment / Plan
Assessment / Plan
Impression:
Gram-negative bacteremia due to chronic infected PICC line.
Fever on admission with no evidence of sepsis (tachycardia likely fever mediated)
Conditions prior to admission:
1. Mast cell activation syndrome.
2. Chronic dystonic reaction.
3. Orthostatic hypotension with postural orthostatic and
tachycardia syndrome.
4. Dopa sensitive dystonia.
5. Steroid-induced diabetes.
6. Prior history of deep venous thrombosis and pulmonary embolism.
7. Chronic pain syndrome.
8. Migraine headaches.
9. Gastroesophageal reflux disease.
10. Benzodiazepine and opiate dependence.
11. Restless legs syndrome.
12. Insomnia.
13. History of vocal cord dysfunction.
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
15. Gastroparesis.
16. 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
17. 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
Plan:
Gram-negative bacteremia secondary to PICC line
PICC line removed
Blood culture with Pseudo fluorescens/putida
Repeated blood cultures negative for 48 hours.
PICC line replaced on 09/23
Antibiotics changed to oral Cipro on 09/22 to complete course through 10/05. ECG with normal QTc.
GJ tube in place with buried bumper.
Replaced by interventional radiology on 09/22
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
#Mast Cell Activation Syndrome
#DOPA-Responsive Dystonia
-follows with Dr. Lizabeth Villanueva at [facility] hematology.
- Continue Ativan / Benadryl (pump)
�-cont Gleevac ,steroids
�--Levalbuterol as needed, to do her eyedrops
-Continue carbidopa levodopa
-prednisone continued
-Consult HEME
# dystonia/movement disorder-patient apparently has dystonic features with her mast cell activation syndrome. I could not find in literature as a routine clinical presentation but according to patient apparently this is very unusual feature which
was noted in few other patients . She is on IV Benadryl pump at 15 mg/h at home. Yesterday she had 2 episodes of them requiring as needed Ativan. In view of increased need of breakthrough medication consulted neurology.
-baclofen continued
-sinemet continued
# Chronic pain syndrome-on high doses of narcotics including p.o. Dilaudid and Suboxone at home. Again unclear the source of her pain.
#GERD
-famotidine continued
-acipHex continued
-simethicone continued
#iron def anemia
-ferrous sulfate continued
#hxt of tachycardia
-EKG with sinus tachycardia
-propranolol continued
#Chronic Nausea / Esophageal Dysmotility/gastroparesis
#History GJ tube
�- Continue diet as tolerated.
�- Continue G-tube to gravity for chronic nausea.
�- Meds via J-tube.
-Zofran every 8 hours as needed
-Continue Pepcid
-emend continued
- PEG tube site without any signs of cellulitis. CT of the abdomen pelvis shows no subcutaneous collection around the PEG tube and it is in place.
�
#Steroid-Induced DM-II
�- Continue basal insulin and add SSI coverage as needed.
-lantus 15u daily
-lispro 8u before meals
#Steroid-Induced Osteoporosis
#Chronic Pain Syndrome secondary to the above on chronic opiates
�- Continue buprenorphine 2 mg 4 times daily , Dilaudid 8 mg as needed
�- PT / OT evaluations.
�- Follow-up with usual allergy and immunology specialist after discharge.
#allergy induced asthma
#chornic hypoxic respiratory failure
-albuterol continued
-budesonide continued
-cetirizine continued
-cromolyn continued
#Migraine Hx
ODT Nurtec as needed
#Restless leg syndrome
-Continue baclofen
#History of DVT / PE
#Takes subcu Lovenox 100 mg twice daily
DNR on admission
Update 09/26 and 09/27- no acute events overnight. Spoke to CM - DC unlikely this weekend
Anticipated Discharge: 24 - 48 hours
Subjective/Interval History
-
Date of Service: September 28, 2023
No acute events overnight
Objective Data
-
Vital Signs:
Vital Signs
Temp Pulse Resp BP Pulse Ox
97.9 F 107 13 139/85 97
09/28/23 03:12 09/28/23 10:00 09/28/23 10:00 09/28/23 10:00 09/28/23 10:00
I&O
09/27/23 09/28/23 09/29/23
06:59 06:59 06:59
Intake Total 1525 / 1525 1320 / 1320
Output Total 2550 / 2550 1999 / 1999
Balance -1025 / -1025 -680 / -680
Review of Systems
-
History Source: Patient
All other systems: Not reviewed unless documented
Physical Exam
-
General: Well Developed and No Apparent Distress
HEENT: Normocephalic, Atraumatic and Moist Mucous Membranes
Respiratory: Clear to Auscultation
Cardiac: Regular Rhythm and S1/S2; Negative Murmur, Rub or Gallop
GI: Soft, Nontender, Nondistended and Normal Bowel Sounds; Negative Organomegaly
Rectal: Deferred by Provider
Musculoskeletal: No Clubbing, No Cyanosis and No Edema
Skin: Negative Rash
Neuro: Nonfocal/Grossly Intact
Data Reviewed
-
CT Scan: Image personally visualized and interpreted and Report Reviewed by me
Labs: Labs Reviewed by me
[2023-09-28] MEDS: NOVOLOG FLEXPEN 8 UNITS SC ×2 (13:25→17:16)
[2023-09-28] MEDS: NON-FORMULARY ITEM 200 MG PO (13:26)
--- NOTE | 2023-09-28 14:53 | PTCARENOTE ---
Patient had flonase brought in; states she takes 2 puffs each nostril once/day. Med sent to pharmacy; pharmacist Zuleyka made aware.
[2023-09-28] MEDS: ZYRTEC 10 MG TUBE ×2 (16:09→20:03)
[2023-09-28 16:41] LABS: Glucose - Point of Care 117 mg/dl (70-99)
[2023-09-28] MEDS: FEOSOL 325 MG PO (20:04)
[2023-09-28 21:59] LABS: Glucose - Point of Care 155 mg/dl (70-99)
--- NOTE | 2023-09-28 23:00 | PTCARENOTE ---
Pt prefers to cluster medications given orally and through tube. One episode of nausea with no emesis. Zofran given per JUL. Later, pt became flushed, and c/o being warm, stated that she felt an episode may be coming on and asked for PRN benadryl
and ice packs. PRN benadryl given per JUL. Hygiene care provided. Call sanchez within reach.
[2023-09-29] VITALS (13 sets, daily range): BP systolic 120–155; BP diastolic 81–105; PULSE 103–122; O2SAT 96–97
[2023-09-29] MEDS: ATIVAN 2 MG SL ×4 (01:48→23:52)
[2023-09-29] MEDS: BENADRYL 25 MG IV ×4 (01:48→23:07)
[2023-09-29] MEDS: LIORESAL 10 MG TUBE ×3 (06:13→21:41)
[2023-09-29] MEDS: SINEMET 25-100 1.5 TABLET TUBE ×2 (06:13→10:22)
[2023-09-29] MEDS: SINEMET 25-100 2 TABLET TUBE ×3 (06:13→17:10)
[2023-09-29] MEDS: BENADRYL 250 MG IV ×2 (06:13→21:40)
[2023-09-29 08:51] LABS: Glucose - Point of Care 119 mg/dl (70-99)
[2023-09-29] MEDS: ZOFRAN 4 MG IV ×3 (09:22→23:52)
[2023-09-29] MEDS: GASTROCROM 300 MG PO ×4 (09:22→21:42)
[2023-09-29] MEDS: LOVENOX 100 MG SC ×2 (09:22→21:44)
[2023-09-29] MEDS: CIPRO 750 MG PO ×2 (09:24→21:40)
[2023-09-29] MEDS: DELTASONE 10 MG TUBE ×2 (09:25→21:41)
[2023-09-29] MEDS: VITAMIN B1 100 MG TUBE (09:25)
[2023-09-29] MEDS: SUBUTEX 2 MG SL ×4 (09:25→21:41)
[2023-09-29] MEDS: HYDREA 500 MG PO ×2 (09:25→21:42)
[2023-09-29] MEDS: INDERAL 10 MG TUBE ×3 (09:25→21:41)
[2023-09-29] MEDS: CLARITIN 10 MG PO (09:25)
[2023-09-29] MEDS: PROTONIX 40 MG PO ×2 (09:26→21:41)
[2023-09-29] MEDS: NON-FORMULARY ITEM 1 UNIT INH (09:26)
[2023-09-29] MEDS: NON-FORMULARY ITEM 1 MG PO ×2 (09:27→21:46)
[2023-09-29] MEDS: DESENEX/MITRAZOL/ZEASORB 1 APPLIC TOPICAL ×2 (09:28→21:47)
[2023-09-29] MEDS: NON-FORMULARY ITEM PO (09:29)
[2023-09-29] MEDS: BACTROBAN 2% OINTMENT 1 APPLIC TOPICAL ×3 (09:29→22:00)
[2023-09-29] MEDS: ZADITOR 1 DROP BOTH EYES ×2 (09:29→21:45)
[2023-09-29] MEDS: PEPCID 54 MG IV (09:49)
[2023-09-29] MEDS: NOVOLOG FLEXPEN-LOW RESISTANCE SC (09:52)
--- NOTE | 2023-09-29 10:21 | CM ---
Addendum entered by Luci Garcia RN 09/29/23 14:32:
Text message received from Kalina Leandrosteve WINN; case is denied by [employer], with rationale patient can go to lower level of care. P2P appeal can be done by calling [phone] with deadline 10/03/23.
Case discussed with Dr Khan, Physician Advisor; he will do P2P today.
Met with patient; she texted her mother and did not get an answer about whether she could return home. CM requested patient call her mother and have discussion about going home.
Plan follow up after P2P completed.
Original Note:
Patient with Hx Mast Cell Activation Syndrome with Dx Gram-negative bacteremia secondary to PICC line. Receiving Subutex, IV Benadryl gtt, IV Famotidine. PICC line in place. PT Eval 09/25 recommends home vs SNF. OT Eval 09/25 recommends skilled
rehab.
Spoke with Karen Gilmansteve WINN; they expect to have response from insurance on auth today. They cannot administer Gleevac at their facility---> message to Dr Kirk.
Spoke with patient; she did a group chat over the weekend that included her mother, stepfather and [employer] equipment mechanic Deep to discuss her needs for going home, and had a visit from her father yesterday. She spoke with Dr Villanueva who will call her
mother today, as her mother expressed concerns to Mary about how much medication she is on at home, and her mother expressed that she would like her steroids weaned as she thinks the steroids are affecting her demeanor. She spoke with her mother
again this morning and asked her if she could go home until she gets disability in place and housing, and her mother informed her she would talk with her later today, as she was going to work today. Mary confirms that Palliative Care has setup
delivery of her Subutex at home. Mary is aware that her caregivers and infusion provider would need notice if she is returning home, and JOJO asked Mary to follow up/call her mother around 1pm today, and she agreed.
Plan follow up with Leandro WINN re; auth.
Plan follow up with patient about possible d/c home.
[2023-09-29] MEDS: NOVOLOG FLEXPEN 8 UNITS SC ×3 (10:24→18:17)
[2023-09-29] MEDS: LANTUS 0.15 UNITS SC (10:36)
[2023-09-29] MEDS: PULMICORT 0.5 MG INH ×2 (11:15→19:39)
--- NOTE | 2023-09-29 11:15 | PTCARENOTE ---
Assumed care of patient at beginning of this shift from previous RN. Patient stated the plan for discharge was for her to go to [facility], but she states she would prefer to return home with her mother. She states she spoke with her mother
and that she may have patient come home. Patient stated she has since informed JOJO Mcgregor. Patient also concerned that her IVF timed out on previous shift and would like them reordered. Order entered by Dr Kirk for NSS @80ml/hr. Will administer
once verified by pharmacy.
[2023-09-29] MEDS: NSS 1000 IV (11:34)
[2023-09-29 13:12] LABS: Glucose - Point of Care 156 mg/dl (70-99)
[2023-09-29] MEDS: NOVOLOG FLEXPEN-LOW RESISTANCE 1 UNITS SC ×2 (13:48→17:09)
[2023-09-29] MEDS: NON-FORMULARY ITEM 200 MG PO (13:50)
--- NOTE | 2023-09-29 13:51 | W.PN.HOSP.TC ---
Today's Communication/Plan
-
Disposition efforts.
Medically stable for discharge.
Assessment / Plan
Assessment / Plan
Impression:
Gram-negative bacteremia due to chronic infected PICC line.
Fever on admission with no evidence of sepsis (tachycardia likely fever mediated)
Conditions prior to admission:
1. Mast cell activation syndrome.
2. Chronic dystonic reaction.
3. Orthostatic hypotension with postural orthostatic and
tachycardia syndrome.
4. Dopa sensitive dystonia.
5. Steroid-induced diabetes.
6. Prior history of deep venous thrombosis and pulmonary embolism.
7. Chronic pain syndrome.
8. Migraine headaches.
9. Gastroesophageal reflux disease.
10. Benzodiazepine and opiate dependence.
11. Restless legs syndrome.
12. Insomnia.
13. History of vocal cord dysfunction.
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
15. Gastroparesis.
16. 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
17. 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
Plan:
Gram-negative bacteremia secondary to PICC line
PICC line removed
Blood culture with Pseudo fluorescens/putida
Repeated blood cultures negative for 48 hours.
PICC line replaced on 09/23
Antibiotics changed to oral Cipro on 09/22 to complete course through 10/05. ECG with normal QTc.
GJ tube in place with buried bumper.
Replaced by interventional radiology on 09/22
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
#Mast Cell Activation Syndrome
#DOPA-Responsive Dystonia
-follows with Dr. Lizabeth Villanueva at [facility] hematology.
- Continue Ativan / Benadryl (pump)
�-cont Gleevac ,steroids
�--Levalbuterol as needed, to do her eyedrops
-Continue carbidopa levodopa
-prednisone continued
-Consult HEME
# dystonia/movement disorder-patient apparently has dystonic features with her mast cell activation syndrome. I could not find in literature as a routine clinical presentation but according to patient apparently this is very unusual feature which
was noted in few other patients . She is on IV Benadryl pump at 15 mg/h at home. Yesterday she had 2 episodes of them requiring as needed Ativan. In view of increased need of breakthrough medication consulted neurology.
-baclofen continued
-sinemet continued
# Chronic pain syndrome-on high doses of narcotics including p.o. Dilaudid and Suboxone at home. Again unclear the source of her pain.
#GERD
-famotidine continued
-acipHex continued
-simethicone continued
#iron def anemia
-ferrous sulfate continued
#hxt of tachycardia
-EKG with sinus tachycardia
-propranolol continued
#Chronic Nausea / Esophageal Dysmotility/gastroparesis
#History GJ tube
�- Continue diet as tolerated.
�- Continue G-tube to gravity for chronic nausea.
�- Meds via J-tube.
-Zofran every 8 hours as needed
-Continue Pepcid
-emend continued
- PEG tube site without any signs of cellulitis. CT of the abdomen pelvis shows no subcutaneous collection around the PEG tube and it is in place.
�
#Steroid-Induced DM-II
�- Continue basal insulin and add SSI coverage as needed.
-lantus 15u daily
-lispro 8u before meals
#Steroid-Induced Osteoporosis
#Chronic Pain Syndrome secondary to the above on chronic opiates
�- Continue buprenorphine 2 mg 4 times daily , Dilaudid 8 mg as needed
�- PT / OT evaluations.
�- Follow-up with usual greenhouse specialist after discharge.
#allergy induced asthma
#chornic hypoxic respiratory failure
-albuterol continued
-budesonide continued
-cetirizine continued
-cromolyn continued
#Migraine Hx
ODT Nurtec as needed
#Restless leg syndrome
-Continue baclofen
#History of DVT / PE
#Takes subcu Lovenox 100 mg twice daily
DNR on admission
Update 09/26 and 09/27- no acute events overnight. Spoke to CM - DC unlikely this weekend
Anticipated Discharge: Within 24 hours
Subjective/Interval History
-
Date of Service: September 29, 2023
Objective Data
-
Vital Signs:
Vital Signs
Temp Pulse Resp BP Pulse Ox
98.5 F 116 22 128/94 97
09/29/23 11:02 09/29/23 12:00 09/29/23 12:00 09/29/23 12:00 09/29/23 12:00
I&O
09/28/23 09/29/23 09/30/23
06:59 06:59 06:59
Intake Total 1320 / 1320 480 / 480
Output Total 2000 / 2000 800 / 800 600 / 600
Balance -680 / -680 -320 / -320 -600 / -600
Physical Exam
-
General: Well Developed and No Apparent Distress
HEENT: Normocephalic, Atraumatic and Moist Mucous Membranes
Respiratory: Clear to Auscultation
Cardiac: Regular Rhythm and S1/S2; Negative Murmur, Rub or Gallop
GI: Soft, Nontender, Nondistended and Normal Bowel Sounds; Negative Organomegaly
Rectal: Deferred by Provider
Musculoskeletal: No Clubbing, No Cyanosis and No Edema
Skin: Negative Rash
Neuro: Nonfocal/Grossly Intact
[2023-09-29] MEDS: ZYRTEC 10 MG TUBE ×2 (17:10→21:42)
[2023-09-29 17:18] LABS: Glucose - Point of Care 154 mg/dl (70-99)
[2023-09-29] MEDS: DUONEB 3 ML INH (19:39)
[2023-09-29] MEDS: FEOSOL 325 MG PO (21:41)
[2023-09-29] MEDS: PEPCID 40 MG IV (21:43)
[2023-09-29] MEDS: NSS (PRESERVATIVE FREE) 6 ML IV ×2 (21:43→21:44)
[2023-09-29 22:15] LABS: Glucose - Point of Care 139 mg/dl (70-99)
[2023-09-30] VITALS (9 sets, daily range): BP systolic 114–151; BP diastolic 73–108
[2023-09-30] MEDS: LIORESAL 10 MG TUBE ×3 (05:17→22:18)
[2023-09-30] MEDS: SINEMET 25-100 1.5 TABLET TUBE ×2 (05:17→10:15)
[2023-09-30] MEDS: BENADRYL 25 MG IV ×3 (05:24→20:25)
--- NOTE | 2023-09-30 05:38 | PTCARENOTE ---
Patient complaining of burning while urinating and urgency. spool sander provider made aware and ordered urinalysis with reflex to culture- sent to lab. 2 episodes of dystonia overnight.
[2023-09-30 05:40] LABS: Urine Albumin Negative (Neg - Trace); Urine Bilirubin Negative (Negative); Urine Character Clear (Clear); Urine Color Yellow; Urine Glucose Negative (Negative); Urine Ketone Negative (Negative); Urine Leukocyte Trace (Negative); Urine Nitrite Negative (Negative); Urine Occult Blood Negative (Negative); Urine Specific Gravity 1.005 (<1.030); Urine Urobilinogen Negative (Neg - 1+)
[2023-09-30] MEDS: ATIVAN 2 MG SL ×3 (05:52→20:24)
[2023-09-30] MEDS: ZOFRAN 4 MG IV ×2 (05:52→12:47)
[2023-09-30 06:09] LABS: Urine Squamous Cell >30 /LPF (Few)
[2023-09-30 06:10] LABS: Urine Bacteria Few (Negative)
[2023-09-30] MEDS: PULMICORT 0.5 MG INH ×2 (07:45→19:25)
[2023-09-30 08:28] LABS: Glucose - Point of Care 107 mg/dl (70-99)
[2023-09-30] MEDS: NOVOLOG FLEXPEN-LOW RESISTANCE SC ×2 (08:34→17:35)
[2023-09-30] MEDS: NOVOLOG FLEXPEN 8 UNITS SC ×3 (08:38→18:11)
[2023-09-30] MEDS: PEPCID 40 MG IV ×2 (08:40→20:26)
[2023-09-30] MEDS: NSS (PRESERVATIVE FREE) 6 ML IV ×2 (08:40→20:26)
[2023-09-30] MEDS: LANTUS 0.15 UNITS SC (08:41)
[2023-09-30] MEDS: LOVENOX 100 MG SC ×2 (08:41→20:26)
[2023-09-30] MEDS: NON-FORMULARY ITEM 1 UNIT INH (08:41)
[2023-09-30] MEDS: HYDREA 500 MG PO ×2 (08:44→20:28)
[2023-09-30] MEDS: SUBUTEX 2 MG SL ×4 (08:45→22:19)
[2023-09-30] MEDS: CIPRO 750 MG PO ×2 (08:45→20:27)
[2023-09-30] MEDS: GASTROCROM 300 MG PO ×4 (08:47→22:20)
[2023-09-30] MEDS: VITAMIN B1 100 MG TUBE (08:47)
[2023-09-30] MEDS: DELTASONE 10 MG TUBE ×2 (08:47→20:27)
[2023-09-30] MEDS: DESENEX/MITRAZOL/ZEASORB 1 APPLIC TOPICAL ×2 (08:48→20:41)
[2023-09-30] MEDS: PROTONIX 40 MG PO ×2 (08:49→20:28)
[2023-09-30] MEDS: INDERAL 10 MG TUBE ×3 (08:49→22:17)
[2023-09-30] MEDS: NON-FORMULARY ITEM 1 MG PO ×2 (08:50→20:39)
[2023-09-30] MEDS: CLARITIN 10 MG PO (08:50)
[2023-09-30] MEDS: NON-FORMULARY ITEM PO (08:51)
[2023-09-30] MEDS: BACTROBAN 2% OINTMENT 1 APPLIC TOPICAL ×3 (08:51→22:17)
[2023-09-30] MEDS: NSS 1000 IV (10:13)
[2023-09-30] MEDS: ZADITOR 1 DROP BOTH EYES ×2 (10:13→20:40)
--- NOTE | 2023-09-30 11:37 | CM ---
Patient seen at bedside. Patient updated that no confirmation of Peer to Peer outcome had been recieved at this time. Patient states that she has spoken with her specialist and he is coordinating plan with her parents for her to temporarily stay
with either parent until she is able to obtain an apartment. Patient indicated that she understood this was not a quick process but indicated that she felt that the Doctor was helping to navigate her ability to go to family until final plan. Patient
nurse indicated that patient had been previously tearful but when CM visited patient was cheerful and smiling broadly. CM will continue to follow for discharge planning needs.
Plan; TBD.
[2023-09-30 12:39] LABS: Glucose - Point of Care 158 mg/dl (70-99)
[2023-09-30] MEDS: NOVOLOG FLEXPEN-LOW RESISTANCE 1 UNITS SC (12:40)
[2023-09-30] MEDS: BENADRYL 250 MG IV (12:47)
--- NOTE | 2023-09-30 13:13 | W.PN.HOSP.TC ---
Today's Communication/Plan
-
On oral antibiotics.
Medically stable
Ongoing disposition efforts.
Assessment / Plan
Assessment / Plan
Impression:
Gram-negative bacteremia due to chronic infected PICC line.
Fever on admission with no evidence of sepsis (tachycardia likely fever mediated)
Conditions prior to admission:
1. Mast cell activation syndrome.
2. Chronic dystonic reaction.
3. Orthostatic hypotension with postural orthostatic and
tachycardia syndrome.
4. Dopa sensitive dystonia.
5. Steroid-induced diabetes.
6. Prior history of deep venous thrombosis and pulmonary embolism.
7. Chronic pain syndrome.
8. Migraine headaches.
9. Gastroesophageal reflux disease.
10. Benzodiazepine and opiate dependence.
11. Restless legs syndrome.
12. Insomnia.
13. History of vocal cord dysfunction.
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
15. Gastroparesis.
16. 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
17. 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
Plan:
Gram-negative bacteremia secondary to PICC line
PICC line removed
Blood culture with Pseudo fluorescens/putida
Repeated blood cultures negative for 48 hours.
PICC line replaced on 09/23
Antibiotics changed to oral Cipro on 09/22 to complete course through 10/05. ECG with normal QTc.
GJ tube in place with buried bumper.
Replaced by interventional radiology on 09/22
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
#Mast Cell Activation Syndrome
#DOPA-Responsive Dystonia
-follows with Dr. Lizabeth Villanueva at [facility] hematology.
- Continue Ativan / Benadryl (pump)
�-cont Gleevac ,steroids
�--Levalbuterol as needed, to do her eyedrops
-Continue carbidopa levodopa
-prednisone continued
-Consult HEME
# dystonia/movement disorder-patient apparently has dystonic features with her mast cell activation syndrome. I could not find in literature as a routine clinical presentation but according to patient apparently this is very unusual feature which
was noted in few other patients . She is on IV Benadryl pump at 15 mg/h at home. Yesterday she had 2 episodes of them requiring as needed Ativan. In view of increased need of breakthrough medication consulted neurology.
-baclofen continued
-sinemet continued
# Chronic pain syndrome-on high doses of narcotics including p.o. Dilaudid and Suboxone at home. Again unclear the source of her pain.
#GERD
-famotidine continued
-acipHex continued
-simethicone continued
#iron def anemia
-ferrous sulfate continued
#hxt of tachycardia
-EKG with sinus tachycardia
-propranolol continued
#Chronic Nausea / Esophageal Dysmotility/gastroparesis
#History GJ tube
�- Continue diet as tolerated.
�- Continue G-tube to gravity for chronic nausea.
�- Meds via J-tube.
-Zofran every 8 hours as needed
-Continue Pepcid
-emend continued
- PEG tube site without any signs of cellulitis. CT of the abdomen pelvis shows no subcutaneous collection around the PEG tube and it is in place.
�
#Steroid-Induced DM-II
�- Continue basal insulin and add SSI coverage as needed.
-lantus 15u daily
-lispro 8u before meals
#Steroid-Induced Osteoporosis
#Chronic Pain Syndrome secondary to the above on chronic opiates
�- Continue buprenorphine 2 mg 4 times daily , Dilaudid 8 mg as needed
�- PT / OT evaluations.
�- Follow-up with usual electronic security specialist after discharge.
#allergy induced asthma
#chornic hypoxic respiratory failure
-albuterol continued
-budesonide continued
-cetirizine continued
-cromolyn continued
#Migraine Hx
ODT Nurtec as needed
#Restless leg syndrome
-Continue baclofen
#History of DVT / PE
#Takes subcu Lovenox 100 mg twice daily
DNR on admission
Update 09/26 and 09/27- no acute events overnight. Spoke to CM - DC unlikely this weekend
Anticipated Discharge: Within 24 hours
Subjective/Interval History
-
Date of Service: September 30, 2023
Objective Data
-
Vital Signs:
Vital Signs
Temp Pulse Resp BP Pulse Ox
98.1 F 106 15 151/99 98
09/30/23 08:00 09/30/23 10:00 09/30/23 10:00 09/30/23 10:00 09/30/23 10:53
I&O
09/29/23 09/30/23 10/01/23
06:59 06:59 06:59
Intake Total 480 / 480 1380 / 1380
Output Total 800 / 800 1150 / 1150
Balance -320 / -320 230 / 230
Physical Exam
-
General: Well Developed and No Apparent Distress
HEENT: Normocephalic, Atraumatic and Moist Mucous Membranes
Respiratory: Clear to Auscultation
Cardiac: Regular Rhythm and S1/S2; Negative Murmur, Rub or Gallop
GI: Soft, Nontender, Nondistended and Normal Bowel Sounds; Negative Organomegaly
Rectal: Deferred by Provider
Musculoskeletal: No Clubbing, No Cyanosis and No Edema
Skin: Negative Rash
Neuro: Nonfocal/Grossly Intact
[2023-09-30] MEDS: NON-FORMULARY ITEM 200 MG PO (14:43)
[2023-09-30] MEDS: SINEMET 25-100 2 TABLET TUBE ×2 (14:44→17:46)
--- NOTE | 2023-09-30 15:32 | PTCARENOTE ---
Rec'd pt this AM. Pt complained of only one dystonic episode. Ativan PO and IV benadryl given with relief. Pt tearful throughout shift over psychosocial issues. support provided. Vital signs stable. remains placement issue.
[2023-09-30] MEDS: ZYRTEC 10 MG TUBE ×2 (16:38→22:18)
--- NOTE | 2023-09-30 17:28 | PTCARENOTE ---
Pt transferred to med Surg on 2N. Report given to WILY Cox. Pt was tearful over transfer. Pt stated her palliative care team had recommended she never go to a general med floor due to the high ratios and her dystonice episodes. Pt only had 1 episode
of dystonia today and her q6 PRN SL ativan plus benadryl was effective to treat it. RN educated pt on the need to keep IMU for pt's requiring critical care and that she is doing much better. Pt remained tearful but calmed down.
[2023-09-30 17:36] LABS: Glucose - Point of Care 122 mg/dl (70-99)
--- NOTE | 2023-09-30 17:44 | PTCARENOTE ---
Pt. admitted from IMU. VSS. Patient oriented to . Pt. AAOx3, pleasant, resting comfortably in bed.
[2023-09-30 21:22] LABS: Glucose - Point of Care 104 mg/dl (70-99)
[2023-09-30] MEDS: FEOSOL 325 MG PO (22:18)
--- NOTE | 2023-10-01 03:42 | DOWNTIME ---
There was a [email or web address] Downtime on 09/30/2023 from 0100 to 10/01/2023 at 0300. Downtime documentation of patient's care, including medication administrations, has been reconciled in the electronic record per guidelines. Refer to the
patient's paper chart under the miscellaneous tab to see printed paper medication records and downtime forms.
[2023-10-01] MEDS: BENADRYL 250 MG IV ×2 (05:09→21:44)
[2023-10-01] MEDS: LIORESAL 10 MG TUBE ×3 (06:13→21:33)
[2023-10-01] MEDS: SINEMET 25-100 1.5 TABLET TUBE ×2 (06:13→09:01)
[2023-10-01 07:35] VITALS: BP 119/68
[2023-10-01 07:42] LABS: Glucose - Point of Care 103 mg/dl (70-99)
[2023-10-01] MEDS: PULMICORT 0.5 MG INH ×2 (07:43→19:30)
[2023-10-01] MEDS: NOVOLOG FLEXPEN-LOW RESISTANCE SC ×3 (08:57→16:51)
[2023-10-01] MEDS: LOVENOX 100 MG SC ×2 (08:58→20:44)
[2023-10-01] MEDS: NOVOLOG FLEXPEN SC ×2 (08:58→12:04)
[2023-10-01] MEDS: CIPRO 750 MG PO ×2 (08:59→20:41)
[2023-10-01] MEDS: LANTUS 0.15 UNITS SC (08:59)
[2023-10-01] MEDS: VITAMIN B1 100 MG TUBE (09:01)
[2023-10-01] MEDS: PROTONIX 40 MG PO (09:01)
[2023-10-01] MEDS: SUBUTEX 2 MG SL ×4 (09:01→21:32)
[2023-10-01] MEDS: INDERAL 10 MG TUBE ×3 (09:01→21:34)
[2023-10-01] MEDS: CLARITIN 10 MG PO (09:01)
[2023-10-01] MEDS: PEPCID 40 MG IV ×2 (09:02→20:46)
[2023-10-01] MEDS: DELTASONE 10 MG TUBE ×2 (09:02→20:42)
[2023-10-01] MEDS: HYDREA 500 MG PO ×2 (09:02→20:41)
[2023-10-01] MEDS: NSS (PRESERVATIVE FREE) 6 ML IV ×2 (09:03→20:46)
[2023-10-01] MEDS: DESENEX/MITRAZOL/ZEASORB 1 APPLIC TOPICAL ×2 (09:04→20:43)
[2023-10-01] MEDS: GASTROCROM 300 MG PO ×4 (09:04→21:32)
[2023-10-01] MEDS: BACTROBAN 2% OINTMENT 1 APPLIC TOPICAL ×3 (09:05→21:34)
[2023-10-01] MEDS: NON-FORMULARY ITEM 1 UNIT INH (09:05)
[2023-10-01] MEDS: ZADITOR 1 DROP BOTH EYES ×2 (09:05→20:47)
[2023-10-01] MEDS: NON-FORMULARY ITEM 1 MG PO ×2 (09:06→20:43)
[2023-10-01] MEDS: NON-FORMULARY ITEM PO (09:11)
[2023-10-01] MEDS: ZOFRAN 4 MG IV ×2 (09:16→21:28)
[2023-10-01] MEDS: ATIVAN 2 MG SL ×2 (09:39→16:31)
[2023-10-01] MEDS: BENADRYL 25 MG IV ×2 (09:39→16:31)
--- NOTE | 2023-10-01 10:05 | PTCARENOTE ---
Pt. c/o of nausea. PRN IV Zofran given per order. Patient started dry heaving and stated she is 'starting to have dystonic episode.' Pt. noted to be stiffening up. PRN IV Benadryl and SL Ativan given per order.
[2023-10-01] MEDS: NSS 1000 IV (10:38)
[2023-10-01 12:11] LABS: Glucose - Point of Care 134 mg/dl (70-99)
[2023-10-01] MEDS: NOVOLOG FLEXPEN 8 UNITS SC ×2 (12:33→18:07)
--- NOTE | 2023-10-01 13:22 | W.PN.HOSP.TC ---
Today's Communication/Plan
-
Medically optimized for discharge.
Ongoing disposition efforts.
Assessment / Plan
Assessment / Plan
Impression:
Gram-negative bacteremia due to chronic infected PICC line.
Fever on admission with no evidence of sepsis (tachycardia likely fever mediated)
Conditions prior to admission:
1. Mast cell activation syndrome.
2. Chronic dystonic reaction.
3. Orthostatic hypotension with postural orthostatic and
tachycardia syndrome.
4. Dopa sensitive dystonia.
5. Steroid-induced diabetes.
6. Prior history of deep venous thrombosis and pulmonary embolism.
7. Chronic pain syndrome.
8. Migraine headaches.
9. Gastroesophageal reflux disease.
10. Benzodiazepine and opiate dependence.
11. Restless legs syndrome.
12. Insomnia.
13. History of vocal cord dysfunction.
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
15. Gastroparesis.
16. 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
17. 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
Plan:
Gram-negative bacteremia secondary to PICC line
PICC line removed
Blood culture with Pseudo fluorescens/putida
Repeated blood cultures negative for 48 hours.
PICC line replaced on 09/23
Antibiotics changed to oral Cipro on 09/22 to complete course through 10/05. ECG with normal QTc.
GJ tube in place with buried bumper.
Replaced by interventional radiology on 09/22
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
#Mast Cell Activation Syndrome
#DOPA-Responsive Dystonia
-follows with Dr. Lizabeth Villanueva at [facility] hematology.
- Continue Ativan / Benadryl (pump)
�-cont Gleevac ,steroids
�--Levalbuterol as needed, to do her eyedrops
-Continue carbidopa levodopa
-prednisone continued
-Consult HEME
# dystonia/movement disorder-patient apparently has dystonic features with her mast cell activation syndrome. I could not find in literature as a routine clinical presentation but according to patient apparently this is very unusual feature which
was noted in few other patients . She is on IV Benadryl pump at 15 mg/h at home. Yesterday she had 2 episodes of them requiring as needed Ativan. In view of increased need of breakthrough medication consulted neurology.
-baclofen continued
-sinemet continued
# Chronic pain syndrome-on high doses of narcotics including p.o. Dilaudid and Suboxone at home. Again unclear the source of her pain.
#GERD
-famotidine continued
-acipHex continued
-simethicone continued
#iron def anemia
-ferrous sulfate continued
#hxt of tachycardia
-EKG with sinus tachycardia
-propranolol continued
#Chronic Nausea / Esophageal Dysmotility/gastroparesis
#History GJ tube
�- Continue diet as tolerated.
�- Continue G-tube to gravity for chronic nausea.
�- Meds via J-tube.
-Zofran every 8 hours as needed
-Continue Pepcid
-emend continued
- PEG tube site without any signs of cellulitis. CT of the abdomen pelvis shows no subcutaneous collection around the PEG tube and it is in place.
�
#Steroid-Induced DM-II
�- Continue basal insulin and add SSI coverage as needed.
-lantus 15u daily
-lispro 8u before meals
#Steroid-Induced Osteoporosis
#Chronic Pain Syndrome secondary to the above on chronic opiates
�- Continue buprenorphine 2 mg 4 times daily , Dilaudid 8 mg as needed
�- PT / OT evaluations.
�- Follow-up with usual phlebotomy specialist after discharge.
#allergy induced asthma
#chornic hypoxic respiratory failure
-albuterol continued
-budesonide continued
-cetirizine continued
-cromolyn continued
#Migraine Hx
ODT Nurtec as needed
#Restless leg syndrome
-Continue baclofen
#History of DVT / PE
#Takes subcu Lovenox 100 mg twice daily
DNR on admission
Update 09/26 and 09/27- no acute events overnight. Spoke to CM - DC unlikely this weekend
Anticipated Discharge: Within 24 hours
Subjective/Interval History
-
Date of Service: October 01, 2023
Objective Data
-
Vital Signs:
Vital Signs
Temp Pulse Resp BP Pulse Ox
98.0 F 118 14 119/68 97
10/01/23 07:35 10/01/23 09:01 10/01/23 07:45 10/01/23 09:01 10/01/23 07:45
I&O
09/30/23 10/01/23 10/02/23
06:59 06:59 06:59
Intake Total 1380 / 1380 1620 / 1620
Output Total 1150 / 1150 75 / 75
Balance 230 / 230 1545 / 1545
Physical Exam
-
General: Well Developed and No Apparent Distress
HEENT: Normocephalic, Atraumatic and Moist Mucous Membranes
Respiratory: Clear to Auscultation
Cardiac: Regular Rhythm and S1/S2; Negative Murmur, Rub or Gallop
GI: Soft, Nontender, Nondistended and Normal Bowel Sounds; Negative Organomegaly
Rectal: Deferred by Provider
Musculoskeletal: No Clubbing, No Cyanosis and No Edema
Skin: Negative Rash
Neuro: Nonfocal/Grossly Intact
[2023-10-01] MEDS: SINEMET 25-100 2 TABLET TUBE ×2 (13:42→17:12)
[2023-10-01] MEDS: NON-FORMULARY ITEM 200 MG PO (13:43)
[2023-10-01] MEDS: TYLENOL 650 MG PO (15:19)
[2023-10-01 15:50] VITALS: BP 133/88
--- NOTE | 2023-10-01 15:59 | CM ---
Reviewed the chart notes and attempted to speak with the patient and her stepfather at the bedside. CM attempted to discuss discharge plans with the patient. Patient dismissed CM stating 'I haven't had a chance to discuss my discharge plan with my
family. I will speak with you when I have had a change to speak with my family'. CM continues to be available to patient/family and is monitoring medical plan for needs at discharge.
Plan: Discharge plans will depend on patient. Awaiting [facility] [id number] results.
[2023-10-01 16:49] LABS: Glucose - Point of Care 99 mg/dl (70-99)
[2023-10-01] MEDS: ZYRTEC 10 MG TUBE ×2 (17:13→21:32)
[2023-10-01] MEDS: DUONEB 3 ML INH (19:31)
[2023-10-01] MEDS: NON-FORMULARY ITEM 1 UNIT PO (20:45)
[2023-10-01] MEDS: FEOSOL 325 MG PO (21:33)
[2023-10-01 21:47] LABS: Glucose - Point of Care 123 mg/dl (70-99)
[2023-10-01 23:18] VITALS: BP 108/69
[2023-10-02] MEDS: ATIVAN 2 MG SL ×4 (00:03→21:09)
[2023-10-02] MEDS: BENADRYL 25 MG IV ×4 (00:04→21:10)
[2023-10-02] MEDS: LIORESAL 10 MG TUBE ×3 (05:54→22:07)
[2023-10-02] MEDS: SINEMET 25-100 1.5 TABLET TUBE ×2 (05:55→09:18)
[2023-10-02] MEDS: ZOFRAN 4 MG IV (06:01)
[2023-10-02 07:00] VITALS: BP 107/65
[2023-10-02] MEDS: PULMICORT 0.5 MG INH ×2 (08:01→19:29)
[2023-10-02] MEDS: DUONEB 3 ML INH ×2 (08:02→19:30)
[2023-10-02 09:10] LABS: Glucose - Point of Care 133 mg/dl (70-99)
[2023-10-02] MEDS: NOVOLOG FLEXPEN-LOW RESISTANCE SC ×3 (09:16→17:42)
[2023-10-02] MEDS: PEPCID 40 MG IV ×2 (09:19→19:50)
[2023-10-02] MEDS: HYDREA 500 MG PO ×2 (09:19→19:49)
[2023-10-02] MEDS: LOVENOX 100 MG SC ×2 (09:19→19:48)
[2023-10-02] MEDS: INDERAL 10 MG TUBE ×3 (09:20→22:07)
[2023-10-02] MEDS: CLARITIN 10 MG PO (09:20)
[2023-10-02] MEDS: GASTROCROM 300 MG PO ×4 (09:21→22:06)
[2023-10-02] MEDS: ZADITOR 1 DROP BOTH EYES ×2 (09:22→19:48)
[2023-10-02] MEDS: NOVOLOG FLEXPEN 8 UNITS SC ×3 (09:22→17:42)
[2023-10-02] MEDS: DELTASONE 10 MG TUBE ×2 (09:22→19:49)
[2023-10-02] MEDS: SUBUTEX 2 MG SL ×4 (09:22→22:06)
[2023-10-02] MEDS: LANTUS 0.15 UNITS SC (09:27)
[2023-10-02] MEDS: BACTROBAN 2% OINTMENT 1 APPLIC TOPICAL ×3 (09:28→19:50)
[2023-10-02] MEDS: NSS (PRESERVATIVE FREE) 6 ML IV ×2 (09:28→19:49)
[2023-10-02] MEDS: CIPRO 750 MG PO ×2 (09:28→19:49)
[2023-10-02] MEDS: DESENEX/MITRAZOL/ZEASORB 1 APPLIC TOPICAL ×2 (09:28→19:51)
[2023-10-02] MEDS: NON-FORMULARY ITEM 1 UNIT PO ×2 (09:30→19:46)
[2023-10-02] MEDS: NON-FORMULARY ITEM 1 MG PO ×2 (09:30→19:47)
[2023-10-02] MEDS: NON-FORMULARY ITEM 80 MG PO (09:31)
[2023-10-02] MEDS: NON-FORMULARY ITEM 1 UNIT INH (09:33)
[2023-10-02] MEDS: VITAMIN B1 100 MG TUBE (09:33)
[2023-10-02 11:31] LABS: Glucose - Point of Care 138 mg/dl (70-99)
[2023-10-02] MEDS: NSS 1000 IV (11:43)
[2023-10-02] MEDS: NON-FORMULARY ITEM 200 MG PO (13:23)
[2023-10-02] MEDS: SINEMET 25-100 2 TABLET TUBE ×2 (13:53→17:34)
--- NOTE | 2023-10-02 14:16 | W.PN.HOSP.TC ---
Today's Communication/Plan
-
Continue supportive care
Ongoing disposition efforts
Assessment / Plan
Assessment / Plan
Impression:
Gram-negative bacteremia due to chronic infected PICC line.
Fever on admission with no evidence of sepsis (tachycardia likely fever mediated)
Conditions prior to admission:
1. Mast cell activation syndrome.
2. Chronic dystonic reaction.
3. Orthostatic hypotension with postural orthostatic and
tachycardia syndrome.
4. Dopa sensitive dystonia.
5. Steroid-induced diabetes.
6. Prior history of deep venous thrombosis and pulmonary embolism.
7. Chronic pain syndrome.
8. Migraine headaches.
9. Gastroesophageal reflux disease.
10. Benzodiazepine and opiate dependence.
11. Restless legs syndrome.
12. Insomnia.
13. History of vocal cord dysfunction.
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
15. Gastroparesis.
16. 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
17. 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
Plan:
Gram-negative bacteremia secondary to PICC line
PICC line removed
Blood culture with Pseudo fluorescens/putida
Repeated blood cultures negative for 48 hours.
PICC line replaced on 09/23
Antibiotics changed to oral Cipro on 09/22 to complete course through 10/05. ECG with normal QTc.
GJ tube in place with buried bumper.
Replaced by interventional radiology on 09/22
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
#Mast Cell Activation Syndrome
#DOPA-Responsive Dystonia
-follows with Dr. Lizabeth Villanueva at [facility] hematology.
- Continue Ativan / Benadryl (pump)
�-cont Gleevac ,steroids
�--Levalbuterol as needed, to do her eyedrops
-Continue carbidopa levodopa
-prednisone continued
-Consult HEME
# dystonia/movement disorder-patient apparently has dystonic features with her mast cell activation syndrome. I could not find in literature as a routine clinical presentation but according to patient apparently this is very unusual feature which
was noted in few other patients . She is on IV Benadryl pump at 15 mg/h at home. Yesterday she had 2 episodes of them requiring as needed Ativan. In view of increased need of breakthrough medication consulted neurology.
-baclofen continued
-sinemet continued
# Chronic pain syndrome-on high doses of narcotics including p.o. Dilaudid and Suboxone at home. Again unclear the source of her pain.
#GERD
-famotidine continued
-acipHex continued
-simethicone continued
#iron def anemia
-ferrous sulfate continued
#hxt of tachycardia
-EKG with sinus tachycardia
-propranolol continued
#Chronic Nausea / Esophageal Dysmotility/gastroparesis
#History GJ tube
�- Continue diet as tolerated.
�- Continue G-tube to gravity for chronic nausea.
�- Meds via J-tube.
-Zofran every 8 hours as needed
-Continue Pepcid
-emend continued
- PEG tube site without any signs of cellulitis. CT of the abdomen pelvis shows no subcutaneous collection around the PEG tube and it is in place.
�
#Steroid-Induced DM-II
�- Continue basal insulin and add SSI coverage as needed.
-lantus 15u daily
-lispro 8u before meals
#Steroid-Induced Osteoporosis
#Chronic Pain Syndrome secondary to the above on chronic opiates
�- Continue buprenorphine 2 mg 4 times daily , Dilaudid 8 mg as needed
�- PT / OT evaluations.
�- Follow-up with usual strategic planning specialist after discharge.
#allergy induced asthma
#chornic hypoxic respiratory failure
-albuterol continued
-budesonide continued
-cetirizine continued
-cromolyn continued
#Migraine Hx
ODT Nurtec as needed
#Restless leg syndrome
-Continue baclofen
#History of DVT / PE
#Takes subcu Lovenox 100 mg twice daily
DNR on admission
Update 09/26 and 09/27- no acute events overnight. Spoke to CM - DC unlikely this weekend
Anticipated Discharge: Within 24 hours
Subjective/Interval History
-
Date of Service: October 02, 2023
Objective Data
-
Vital Signs:
Vital Signs
Temp Pulse Resp BP Pulse Ox
97.8 F 106 18 107/65 98
10/02/23 07:00 10/02/23 08:05 10/02/23 08:05 10/02/23 07:00 10/02/23 12:37
I&O
10/01/23 10/02/23 10/03/23
06:59 06:59 06:59
Intake Total 1620 / 1620 2360 / 2360
Output Total 75 / 75 125 / 125
Balance 1545 / 1545 2235 / 2235
Physical Exam
-
General: Well Developed and No Apparent Distress
HEENT: Normocephalic, Atraumatic and Moist Mucous Membranes
Respiratory: Clear to Auscultation
Cardiac: Regular Rhythm and S1/S2; Negative Murmur, Rub or Gallop
GI: Soft, Nontender, Nondistended and Normal Bowel Sounds; Negative Organomegaly
Rectal: Deferred by Provider
Musculoskeletal: No Clubbing, No Cyanosis and No Edema
Skin: Negative Rash
Neuro: Nonfocal/Grossly Intact
--- NOTE | 2023-10-02 14:32 | CM ---
Addendum entered by Rubina Obregon RN 10/02/23 16:17:
Call placed to [facility] to check on auth status. Per inside account representative, a nurse will reach out with approval notice when it has been completed. Per inside account representative, they will fax results.
Addendum entered by Rubina Obregon RN 10/02/23 15:42:
JOJO spoke with Kalina from [place] ([phone]). Sent updtd medication list and progress note via [facility] to [facility].
Addendum entered by Rubina Obregon RN 10/02/23 15:14:
Best plan would be home with 09/12 caregiver services provided by [facility], [facility], and [facility] until more permanent placement can be arranged.
Addendum entered by Rubina Obregon RN 10/02/23 15:08:
JOJO spoke with the patient at the bedside. Per patient, she has left multiple voice messages for her mother, no response yet today. Per patient, she spoke with her stepfather late yesterday about needing to return to home to pack, have her IV
medications ordered and delivered and to have an address to use for possible placement purposes. Patient has an intensive pillowcase cutter with insurance who is working on possible placement. The patient is frustrated with her mother's lack of
response and willingness to help the patient with discharge planning. The patient anticipates her father will be visiting today and will speak with him to see if there is anything that he can offer with regards to placement. The patient would
ultimately like to reside on her own in an apartment with caregivers.
Original Note:
Reviewed the chart notes and left voice message on the patient's mother's cell phone to discuss discharge plans.
[2023-10-02] MEDS: BENADRYL 250 MG IV (14:37)
--- NOTE | 2023-10-02 14:42 | PTCARENOTE ---
episode of dystonia at 1437. prn ativan SL and prn benadryl given through L PICC
[2023-10-02 15:00] VITALS: BP 126/79
[2023-10-02] MEDS: ZYRTEC 10 MG TUBE ×2 (17:35→22:07)
[2023-10-02 17:42] LABS: Glucose - Point of Care 126 mg/dl (70-99)
[2023-10-02] MEDS: MIRALAX 17 GRAMS PO (17:52)
[2023-10-02 21:28] LABS: Glucose - Point of Care 152 mg/dl (70-99)
[2023-10-02] MEDS: FEOSOL 325 MG PO (22:07)
[2023-10-02 23:35] VITALS: BP 126/75
[2023-10-03] MEDS: LIORESAL 10 MG TUBE ×3 (05:57→21:58)
[2023-10-03] MEDS: SINEMET 25-100 1.5 TABLET TUBE ×2 (05:57→08:47)
[2023-10-03 07:00] VITALS: BP 118/83
[2023-10-03] MEDS: PULMICORT 0.5 MG INH ×2 (07:52→19:52)
[2023-10-03] MEDS: DUONEB 3 ML INH ×2 (07:52→19:52)
[2023-10-03] MEDS: BENADRYL 25 MG IV ×2 (08:32→16:23)
[2023-10-03] MEDS: ATIVAN 2 MG SL ×2 (08:32→16:24)
[2023-10-03] MEDS: PEPCID 40 MG IV ×2 (08:35→20:09)
[2023-10-03] MEDS: GASTROCROM 300 MG PO ×4 (08:35→21:56)
[2023-10-03] MEDS: NSS (PRESERVATIVE FREE) 6 ML IV ×2 (08:35→20:14)
[2023-10-03] MEDS: BENADRYL 250 MG IV ×2 (08:36→22:04)
[2023-10-03] MEDS: ZOFRAN 4 MG IV ×2 (08:37→17:44)
[2023-10-03] MEDS: CLARITIN 10 MG PO (08:42)
[2023-10-03] MEDS: CIPRO 750 MG PO ×2 (08:42→20:01)
[2023-10-03] MEDS: VITAMIN B1 100 MG TUBE (08:42)
[2023-10-03] MEDS: SUBUTEX 2 MG SL ×4 (08:42→21:58)
[2023-10-03] MEDS: HYDREA 500 MG PO ×2 (08:42→20:02)
[2023-10-03] MEDS: DELTASONE 10 MG TUBE ×2 (08:42→20:02)
[2023-10-03] MEDS: INDERAL 10 MG TUBE ×3 (08:43→21:59)
[2023-10-03] MEDS: NON-FORMULARY ITEM 80 MG PO (08:44)
[2023-10-03] MEDS: NON-FORMULARY ITEM 1 MG PO ×2 (08:45→20:03)
[2023-10-03] MEDS: BACTROBAN 2% OINTMENT 1 APPLIC TOPICAL ×3 (08:45→21:55)
[2023-10-03] MEDS: DESENEX/MITRAZOL/ZEASORB 1 APPLIC TOPICAL ×2 (08:45→20:19)
[2023-10-03] MEDS: NON-FORMULARY ITEM 1 UNIT PO ×2 (08:46→20:17)
[2023-10-03] MEDS: NON-FORMULARY ITEM 1 UNIT INH (08:46)
[2023-10-03] MEDS: ZADITOR 1 DROP BOTH EYES ×2 (08:46→20:16)
[2023-10-03] MEDS: LOVENOX 100 MG SC ×2 (08:47→20:04)
[2023-10-03] MEDS: NOVOLOG FLEXPEN-LOW RESISTANCE SC ×2 (09:01→17:41)
[2023-10-03 09:02] LABS: Glucose - Point of Care 113 mg/dl (70-99)
[2023-10-03] MEDS: LANTUS 0.15 UNITS SC (09:02)
[2023-10-03] MEDS: NOVOLOG FLEXPEN 8 UNITS SC ×3 (09:02→17:41)
[2023-10-03] MEDS: NSS 1000 IV (10:57)
[2023-10-03 11:48] LABS: Glucose - Point of Care 183 mg/dl (70-99)
[2023-10-03] MEDS: NOVOLOG FLEXPEN-LOW RESISTANCE 1 UNITS SC (11:50)
[2023-10-03] MEDS: SINEMET 25-100 2 TABLET TUBE ×2 (13:25→17:40)
[2023-10-03] MEDS: NON-FORMULARY ITEM 200 MG PO (13:29)
[2023-10-03 15:01] VITALS: BP 113/70
--- NOTE | 2023-10-03 15:09 | CM ---
Reviewed the chart notes and spoke with the patient at the bedside. The patient's father was in to visit today, no new information. Patient's mother not returning patient's nor attendings calls. Received call from [facility], unable to accept
due to patient having a supposed psychiatric diagnosis from prior hospitalizations. Not indicated in our system. Received message from Saravanan sung Pharmacist with [facility] ([phone]) requesting immediate call back to discuss
patient's discharge needs. Call back and eft voice message with lamination inspector for call back. CM continues to be available to patient/family and is monitoring medical plan for needs at discharge.
Plan: Discharge will most likely be home with resumption of services since we are unable to find a facility able and willing to accommodate the patient.
--- NOTE | 2023-10-03 15:48 | W.PN.HOSP.TC ---
Today's Communication/Plan
-
Medically optimized for discharge.
Ongoing disposition efforts/placement.
Assessment / Plan
Assessment / Plan
Impression:
Gram-negative bacteremia due to chronic infected PICC line.
Fever on admission with no evidence of sepsis (tachycardia likely fever mediated)
Conditions prior to admission:
1. Mast cell activation syndrome.
2. Chronic dystonic reaction.
3. Orthostatic hypotension with postural orthostatic and
tachycardia syndrome.
4. Dopa sensitive dystonia.
5. Steroid-induced diabetes.
6. Prior history of deep venous thrombosis and pulmonary embolism.
7. Chronic pain syndrome.
8. Migraine headaches.
9. Gastroesophageal reflux disease.
10. Benzodiazepine and opiate dependence.
11. Restless legs syndrome.
12. Insomnia.
13. History of vocal cord dysfunction.
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
15. Gastroparesis.
16. 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
17. 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
Plan:
Gram-negative bacteremia secondary to PICC line
PICC line removed
Blood culture with Pseudo fluorescens/putida
Repeated blood cultures negative for 48 hours.
PICC line replaced on 09/23
Antibiotics changed to oral Cipro on 09/22 to complete course through 10/05. ECG with normal QTc.
GJ tube in place with buried bumper.
Replaced by interventional radiology on 09/22
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
#Mast Cell Activation Syndrome
#DOPA-Responsive Dystonia
-follows with Dr. Lizabeth Villanueva at [facility] hematology.
- Continue Ativan / Benadryl (pump)
�-cont Gleevac ,steroids
�--Levalbuterol as needed, to do her eyedrops
-Continue carbidopa levodopa
-prednisone continued
-Consult HEME
# dystonia/movement disorder-patient apparently has dystonic features with her mast cell activation syndrome. I could not find in literature as a routine clinical presentation but according to patient apparently this is very unusual feature which
was noted in few other patients . She is on IV Benadryl pump at 15 mg/h at home. Yesterday she had 2 episodes of them requiring as needed Ativan. In view of increased need of breakthrough medication consulted neurology.
-baclofen continued
-sinemet continued
# Chronic pain syndrome-on high doses of narcotics including p.o. Dilaudid and Suboxone at home. Again unclear the source of her pain.
#GERD
-famotidine continued
-acipHex continued
-simethicone continued
#iron def anemia
-ferrous sulfate continued
#hxt of tachycardia
-EKG with sinus tachycardia
-propranolol continued
#Chronic Nausea / Esophageal Dysmotility/gastroparesis
#History GJ tube
�- Continue diet as tolerated.
�- Continue G-tube to gravity for chronic nausea.
�- Meds via J-tube.
-Zofran every 8 hours as needed
-Continue Pepcid
-emend continued
- PEG tube site without any signs of cellulitis. CT of the abdomen pelvis shows no subcutaneous collection around the PEG tube and it is in place.
�
#Steroid-Induced DM-II
�- Continue basal insulin and add SSI coverage as needed.
-lantus 15u daily
-lispro 8u before meals
#Steroid-Induced Osteoporosis
#Chronic Pain Syndrome secondary to the above on chronic opiates
�- Continue buprenorphine 2 mg 4 times daily , Dilaudid 8 mg as needed
�- PT / OT evaluations.
�- Follow-up with usual protection specialist after discharge.
#allergy induced asthma
#chornic hypoxic respiratory failure
-albuterol continued
-budesonide continued
-cetirizine continued
-cromolyn continued
#Migraine Hx
ODT Nurtec as needed
#Restless leg syndrome
-Continue baclofen
#History of DVT / PE
#Takes subcu Lovenox 100 mg twice daily
DNR on admission
Update 09/26 and 09/27- no acute events overnight. Spoke to CM - DC unlikely this weekend
Anticipated Discharge: Within 24 hours
Subjective/Interval History
-
Date of Service: October 03, 2023
Objective Data
-
Vital Signs:
Vital Signs
Temp Pulse Resp BP Pulse Ox
97.9 F 109 14 113/70 95
10/03/23 15:01 10/03/23 15:01 10/03/23 15:01 10/03/23 15:01 10/03/23 15:01
I&O
10/02/23 10/03/23 10/04/23
06:59 06:59 06:59
Intake Total 2360 / 2360 2480 / 2480
Output Total 125 / 125
Balance 2235 / 2235 2480 / 2480
Physical Exam
-
General: Well Developed and No Apparent Distress
HEENT: Normocephalic, Atraumatic and Moist Mucous Membranes
Respiratory: Clear to Auscultation
Cardiac: Regular Rhythm and S1/S2; Negative Murmur, Rub or Gallop
GI: Soft, Nontender, Nondistended and Normal Bowel Sounds; Negative Organomegaly
Rectal: Deferred by Provider
Musculoskeletal: No Clubbing, No Cyanosis and No Edema
Skin: Negative Rash
Neuro: Nonfocal/Grossly Intact
[2023-10-03 17:19] LABS: Glucose - Point of Care 143 mg/dl (70-99)
[2023-10-03] MEDS: ZYRTEC 10 MG TUBE ×2 (17:40→21:59)
[2023-10-03] MEDS: FLUSH (NSS) 3 FLUSH IV (20:13)
[2023-10-03 21:24] LABS: Glucose - Point of Care 128 mg/dl (70-99)
[2023-10-03] MEDS: FEOSOL 325 MG PO (21:55)
[2023-10-03 23:20] VITALS: BP 112/75
[2023-10-04] MEDS: BENADRYL 25 MG IV ×4 (00:25→22:43)
--- NOTE | 2023-10-04 00:25 | PTCARENOTE ---
Episode of dystonia at 0025. PRN Ativan SL and PRN Benadryl given through L PICC.
[2023-10-04] MEDS: ATIVAN 2 MG SL ×4 (00:26→22:43)
[2023-10-04] MEDS: FLUSH (NSS) 2 FLUSH IV ×5 (00:26→22:44)
[2023-10-04] MEDS: ZOFRAN 4 MG IV (00:35)
[2023-10-04] MEDS: SINEMET 25-100 1.5 TABLET TUBE ×2 (05:38→10:01)
[2023-10-04] MEDS: LIORESAL 10 MG TUBE ×2 (05:38→15:15)
[2023-10-04 07:50] VITALS: BP 115/63
[2023-10-04 07:57] LABS: Glucose - Point of Care 104 mg/dl (70-99)
[2023-10-04] MEDS: DUONEB 3 ML INH ×2 (08:28→21:01)
[2023-10-04] MEDS: PULMICORT 0.5 MG INH ×2 (08:28→21:01)
[2023-10-04] MEDS: NOVOLOG FLEXPEN-LOW RESISTANCE SC ×2 (08:29→17:48)
[2023-10-04] MEDS: NON-FORMULARY ITEM 80 MG PO (08:40)
[2023-10-04] MEDS: BACTROBAN 2% OINTMENT 1 APPLIC TOPICAL ×2 (08:42→15:36)
[2023-10-04] MEDS: CIPRO 750 MG PO ×2 (08:44→20:53)
[2023-10-04] MEDS: INDERAL 10 MG TUBE ×2 (08:45→15:15)
[2023-10-04] MEDS: CLARITIN 10 MG PO (08:45)
[2023-10-04] MEDS: DELTASONE 10 MG TUBE ×2 (08:46→20:54)
[2023-10-04] MEDS: DESENEX/MITRAZOL/ZEASORB 1 APPLIC TOPICAL ×2 (08:47→20:54)
[2023-10-04] MEDS: GASTROCROM 300 MG PO ×3 (08:48→16:56)
[2023-10-04] MEDS: VITAMIN B1 100 MG TUBE (08:53)
[2023-10-04] MEDS: PEPCID 40 MG IV ×2 (08:54→20:58)
[2023-10-04] MEDS: NSS (PRESERVATIVE FREE) 6 ML IV ×2 (08:56→20:58)
[2023-10-04] MEDS: NON-FORMULARY ITEM 1 UNIT INH (08:57)
[2023-10-04] MEDS: NON-FORMULARY ITEM 1 UNIT PO ×2 (08:57→20:57)
[2023-10-04] MEDS: LOVENOX 100 MG SC ×2 (08:58→20:56)
[2023-10-04] MEDS: NON-FORMULARY ITEM 1 MG PO ×2 (08:59→20:56)
[2023-10-04] MEDS: HYDREA 500 MG PO ×2 (09:00→20:55)
[2023-10-04] MEDS: NOVOLOG FLEXPEN 8 UNITS SC ×3 (09:01→17:48)
[2023-10-04] MEDS: ZADITOR 1 DROP BOTH EYES ×2 (09:02→20:59)
[2023-10-04] MEDS: LANTUS 0.15 UNITS SC (10:01)
--- NOTE | 2023-10-04 11:58 | W.PN.HOSP.TC ---
Today's Communication/Plan
-
dispo planning
Assessment / Plan
Assessment / Plan
Impression:
Gram-negative bacteremia due to chronic infected PICC line.
Fever on admission with no evidence of sepsis (tachycardia likely fever mediated)
Conditions prior to admission:
1. Mast cell activation syndrome.
2. Chronic dystonic reaction.
3. Orthostatic hypotension with postural orthostatic and
tachycardia syndrome.
4. Dopa sensitive dystonia.
5. Steroid-induced diabetes.
6. Prior history of deep venous thrombosis and pulmonary embolism.
7. Chronic pain syndrome.
8. Migraine headaches.
9. Gastroesophageal reflux disease.
10. Benzodiazepine and opiate dependence.
11. Restless legs syndrome.
12. Insomnia.
13. History of vocal cord dysfunction.
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
15. Gastroparesis.
16. 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
17. 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
Plan:
Gram-negative bacteremia secondary to PICC line
PICC line removed
Blood culture with Pseudo fluorescens/putida
Repeated blood cultures negative for 48 hours.
PICC line replaced on 09/23
Antibiotics changed to oral Cipro on 09/22 to complete course through 10/05. ECG with normal QTc.
GJ tube in place with buried bumper.
Replaced by interventional radiology on 09/22
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
#Mast Cell Activation Syndrome
#DOPA-Responsive Dystonia
-follows with Dr. Lizabeth Villanueva at [facility] hematology.
- Continue Ativan / Benadryl (pump)
�-cont Gleevac ,steroids
�--Levalbuterol as needed, to do her eyedrops
-Continue carbidopa levodopa
-prednisone continued
-appreciate Heme consult
# dystonia/movement disorder-patient apparently has dystonic features with her mast cell activation syndrome. I could not find in literature as a routine clinical presentation but according to patient apparently this is very unusual feature which
was noted in few other patients . She is on IV Benadryl pump at 15 mg/h at home. Yesterday she had 2 episodes of them requiring as needed Ativan. In view of increased need of breakthrough medication consulted neurology.
-baclofen continued
-sinemet continued
# Chronic pain syndrome-on high doses of narcotics including p.o. Dilaudid and Suboxone at home. Again unclear the source of her pain.
#GERD
-famotidine continued
-acipHex continued
-simethicone continued
#iron def anemia
-ferrous sulfate continued
#hxt of tachycardia
-EKG with sinus tachycardia
-propranolol continued
#Chronic Nausea / Esophageal Dysmotility/gastroparesis
#History GJ tube
�- Continue diet as tolerated.
�- Continue G-tube to gravity for chronic nausea.
�- Meds via J-tube.
-Zofran every 8 hours as needed
-Continue Pepcid
-emend continued
- PEG tube site without any signs of cellulitis. CT of the abdomen pelvis shows no subcutaneous collection around the PEG tube and it is in place.
�
#Steroid-Induced DM-II
�- Continue basal insulin and add SSI coverage as needed.
-lantus 15u daily
-lispro 8u before meals
#Steroid-Induced Osteoporosis
#Chronic Pain Syndrome secondary to the above on chronic opiates
�- Continue buprenorphine 2 mg 4 times daily , Dilaudid 8 mg as needed
�- PT / OT evaluations.
�- Follow-up with usual client account specialist after discharge.
#allergy induced asthma
#chornic hypoxic respiratory failure
-albuterol continued
-budesonide continued
-cetirizine continued
-cromolyn continued
#Migraine Hx
ODT Nurtec as needed
#Restless leg syndrome
-Continue baclofen
#History of DVT / PE
#Takes subcu Lovenox 100 mg twice daily
DNR on admission
Update 09/26 and 09/27- no acute events overnight. Spoke to CM - DC unlikely this weekend
Anticipated Discharge: > 48 hours
Subjective/Interval History
-
Date of Service: October 04, 2023
had dystonic reaction s/p ativan now resolved
requesting IVF
Objective Data
-
Vital Signs:
Vital Signs
Temp Pulse Resp BP Pulse Ox
98.1 F 102 20 115/63 99
10/04/23 07:50 10/04/23 08:29 10/04/23 08:29 10/04/23 07:50 10/04/23 08:29
I&O
10/03/23 10/04/23 10/05/23
06:59 06:59 06:59
Intake Total 2480 / 2480 3220 / 3220
Output Total 225 / 225
Balance 2480 / 2480 2995 / 2995
Review of Systems
-
History Source: Patient
All other systems: Reviewed and negative
Physical Exam
-
General: Well Developed, No Apparent Distress and Other (cushingoid appearance)
HEENT: Normocephalic, Atraumatic and Moist Mucous Membranes
Respiratory: Clear to Auscultation
Cardiac: Regular Rhythm and S1/S2; Negative Murmur, Rub or Gallop
GI: Soft, Nontender, Nondistended and Normal Bowel Sounds; Negative Organomegaly
Rectal: Deferred by Provider
Musculoskeletal: No Clubbing, No Cyanosis and No Edema
Skin: Negative Rash
Neuro: Nonfocal/Grossly Intact
Psych: Calm
Data Reviewed
-
Diagnostic Radiology: Report Reviewed by me
Labs: Labs Reviewed by me
[2023-10-04 12:29] LABS: Glucose - Point of Care 167 mg/dl (70-99)
[2023-10-04] MEDS: NSS 1000 IV (12:46)
[2023-10-04] MEDS: FLUSH (NSS) 1 FLUSH IV (12:48)
[2023-10-04] MEDS: NOVOLOG FLEXPEN-LOW RESISTANCE 1 UNITS SC (12:50)
[2023-10-04] MEDS: BENADRYL 250 MG IV (13:27)
[2023-10-04] MEDS: SUBUTEX 2 MG SL ×2 (15:16→16:58)
[2023-10-04] MEDS: SINEMET 25-100 2 TABLET TUBE ×2 (15:16→16:56)
[2023-10-04] MEDS: NON-FORMULARY ITEM 200 MG PO (15:19)
[2023-10-04 15:56] VITALS: BP 114/84
[2023-10-04] MEDS: ZYRTEC 10 MG TUBE (16:56)
[2023-10-04 17:41] LABS: Glucose - Point of Care 126 mg/dl (70-99)
--- NOTE | 2023-10-04 22:39 | PTCARENOTE ---
Patient had an unwitnessed fall and was found on the floor beside her BSC. See rapid response note.
--- NOTE | 2023-10-04 22:39 | RR ---
A Rapid Response was called on this patient, please see Rapid Response form.
[2023-10-04 22:45] LABS: Glucose - Point of Care 137 mg/dl (70-99)
--- NOTE | 2023-10-04 23:02 | W.PN.UPDATE ---
Addendum entered and electronically signed by ASHLEY Deleon 10/05/23 00:05:
ct head and neck neg. may take off c collar placed on during RN SECURITY
PT tells me that she was straining to have BM and had vagal episode. She had done this in past. She had headache and right flank pain. Will give one dose .5 iv dilaudid x 1.
Advised bedrest tonight
Original Note:
Update Note
Progress Note Update
2238 RN SECURITY. PT was using bsc to have BM and found on floor with what appears to be a dystonia reaction.
Pt was lifted back to bed. At first pt not responding during dystonia. Given SL ativan and iv benadryl. Order placed for ct head and neck.
Within a few min pt able to state right side pain and facial pain (found face down). Will add chest xray to check ribs fx
[2023-10-05] MEDS: SUBUTEX 2 MG SL ×5 (00:04→21:41)
[2023-10-05] MEDS: LIORESAL 10 MG TUBE ×4 (00:04→21:41)
[2023-10-05] MEDS: GASTROCROM 300 MG PO ×5 (00:05→21:40)
[2023-10-05] MEDS: ZYRTEC 10 MG TUBE ×3 (00:05→21:42)
[2023-10-05] MEDS: FEOSOL 325 MG PO ×2 (00:05→21:39)
[2023-10-05] MEDS: INDERAL 10 MG TUBE ×4 (00:07→21:41)
[2023-10-05] MEDS: BACTROBAN 2% OINTMENT 1 APPLIC TOPICAL ×4 (00:10→21:39)
[2023-10-05] MEDS: DILAUDID 0.5 MG IV ×3 (00:11→10:59)
[2023-10-05] MEDS: FLUSH (NSS) 2 FLUSH IV ×7 (00:13→15:37)
[2023-10-05] MEDS: NSS 1000 IV ×2 (00:25→12:47)
[2023-10-05] MEDS: ATIVAN 2 MG SL ×3 (03:27→16:19)
[2023-10-05] MEDS: BENADRYL 25 MG IV ×3 (03:28→15:36)
[2023-10-05] MEDS: BENADRYL 250 MG IV ×2 (03:37→21:31)
[2023-10-05] MEDS: SINEMET 25-100 1.5 TABLET TUBE ×2 (05:41→10:07)
[2023-10-05] MEDS: DUONEB 3 ML INH ×2 (06:16→17:45)
[2023-10-05] MEDS: PULMICORT 0.5 MG INH ×2 (06:16→17:45)
[2023-10-05 07:30] VITALS: BP 105/70
[2023-10-05 07:45] LABS: Glucose - Point of Care 120 mg/dl (70-99)
[2023-10-05] MEDS: LOVENOX 100 MG SC ×2 (08:48→21:36)
[2023-10-05] MEDS: PEPCID 40 MG IV ×2 (08:48→21:38)
[2023-10-05] MEDS: NSS (PRESERVATIVE FREE) 6 ML IV ×2 (08:49→21:37)
[2023-10-05] MEDS: NON-FORMULARY ITEM 1 UNIT INH (08:51)
[2023-10-05] MEDS: HYDREA 500 MG PO ×2 (08:51→21:34)
[2023-10-05] MEDS: ZADITOR 1 DROP BOTH EYES ×2 (08:51→21:38)
[2023-10-05] MEDS: VITAMIN B1 100 MG TUBE (08:52)
[2023-10-05] MEDS: CLARITIN 10 MG PO (08:52)
[2023-10-05] MEDS: DELTASONE 10 MG TUBE ×2 (08:52→21:33)
[2023-10-05] MEDS: NON-FORMULARY ITEM 80 MG PO (08:54)
[2023-10-05] MEDS: NON-FORMULARY ITEM 1 MG PO ×2 (08:56→21:35)
[2023-10-05] MEDS: NON-FORMULARY ITEM 1 UNIT PO ×2 (08:56→21:37)
[2023-10-05] MEDS: NOVOLOG FLEXPEN-LOW RESISTANCE SC ×2 (08:58→17:43)
[2023-10-05] MEDS: NOVOLOG FLEXPEN 8 UNITS SC ×3 (08:58→17:47)
[2023-10-05] MEDS: LANTUS 0.15 UNITS SC (09:00)
[2023-10-05] MEDS: DESENEX/MITRAZOL/ZEASORB 1 APPLIC TOPICAL ×2 (09:12→21:34)
--- NOTE | 2023-10-05 10:22 | W.PN.HOSP.TC ---
Today's Communication/Plan
-
bowel regimen
IV Dilaudid x 1
Assessment / Plan
Assessment / Plan
Impression:
Gram-negative bacteremia due to chronic infected PICC line.
Fever on admission with no evidence of sepsis (tachycardia likely fever mediated)
Conditions prior to admission:
1. Mast cell activation syndrome.
2. Chronic dystonic reaction.
3. Orthostatic hypotension with postural orthostatic and
tachycardia syndrome.
4. Dopa sensitive dystonia.
5. Steroid-induced diabetes.
6. Prior history of deep venous thrombosis and pulmonary embolism.
7. Chronic pain syndrome.
8. Migraine headaches.
9. Gastroesophageal reflux disease.
10. Benzodiazepine and opiate dependence.
11. Restless legs syndrome.
12. Insomnia.
13. History of vocal cord dysfunction.
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
15. Gastroparesis.
16. 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
17. 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
Plan:
Gram-negative bacteremia secondary to PICC line
PICC line removed
Blood culture with Pseudo fluorescens/putida
Repeated blood cultures negative for 48 hours.
PICC line replaced on 09/23
Antibiotics changed to oral Cipro on 09/22 to complete course through 10/05. ECG with normal QTc.
GJ tube in place with buried bumper.
Replaced by interventional radiology on 09/22
s/p fall overnight 10/03-10/04
imaging negative for bleed or fracture
one more dose IV dilaudid now
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
#Mast Cell Activation Syndrome
#DOPA-Responsive Dystonia
-follows with Dr. Lizabeth Villanueva at [facility] hematology.
- Continue Ativan / Benadryl (pump)
�-cont Gleevac ,steroids
�--Levalbuterol as needed, to do her eyedrops
-Continue carbidopa levodopa
-prednisone continued
-appreciate Heme consult
# dystonia/movement disorder-patient apparently has dystonic features with her mast cell activation syndrome. I could not find in literature as a routine clinical presentation but according to patient apparently this is very unusual feature which
was noted in few other patients . She is on IV Benadryl pump at 15 mg/h at home. Yesterday she had 2 episodes of them requiring as needed Ativan. In view of increased need of breakthrough medication consulted neurology.
-baclofen continued
-sinemet continued
-episodes with vasovagal response when trying to have a BM - start standing miralax and colace BID
# Chronic pain syndrome-on high doses of narcotics including p.o. Dilaudid and Suboxone at home. Again unclear the source of her pain.
#GERD
-famotidine continued
-acipHex continued
-simethicone continued
#iron def anemia
-ferrous sulfate continued
#hxt of tachycardia
-EKG with sinus tachycardia
-propranolol continued
#Chronic Nausea / Esophageal Dysmotility/gastroparesis
#History GJ tube
�- Continue diet as tolerated.
�- Continue G-tube to gravity for chronic nausea.
�- Meds via J-tube.
-Zofran every 8 hours as needed
-Continue Pepcid
-emend continued
- PEG tube site without any signs of cellulitis. CT of the abdomen pelvis shows no subcutaneous collection around the PEG tube and it is in place.
#Steroid-Induced DM-II
�- Continue basal insulin and add SSI coverage as needed.
-lantus 15u daily
-lispro 8u before meals
#Steroid-Induced Osteoporosis
#Chronic Pain Syndrome secondary to the above on chronic opiates
�- Continue buprenorphine 2 mg 4 times daily , Dilaudid 8 mg as needed
�- PT / OT evaluations.
�- Follow-up with usual care management specialist after discharge.
#allergy induced asthma
#chornic hypoxic respiratory failure
-albuterol continued
-budesonide continued
-cetirizine continued
-cromolyn continued
#Migraine Hx
ODT Nurtec as needed
#Restless leg syndrome
-Continue baclofen
#History of DVT / PE
#Takes subcu Lovenox 100 mg twice daily
DNR on admission
Anticipated Discharge: 24 - 48 hours
Subjective/Interval History
-
Date of Service: October 05, 2023
dystonic reaction overnight while straining to use bathroom
now has some left sided facial pain and neck pain
Objective Data
-
Vital Signs:
Vital Signs
Temp Pulse Resp BP Pulse Ox
96.6 F L 103 18 105/70 96
10/05/23 07:30 10/05/23 07:30 10/05/23 07:30 10/05/23 07:30 10/05/23 07:30
I&O
10/04/23 10/05/23 10/06/23
06:59 06:59 06:59
Intake Total 3220 / 3220 2240 / 2240
Output Total 225 / 225 800 / 800
Balance 2995 / 2995 1440 / 1440
Review of Systems
-
History Source: Patient
All other systems: Reviewed and negative
Physical Exam
-
General: Well Developed, No Apparent Distress and Other (cushingoid appearance)
HEENT: Normocephalic, Atraumatic and Moist Mucous Membranes
Respiratory: Clear to Auscultation
Cardiac: Regular Rhythm and S1/S2; Negative Murmur, Rub or Gallop
GI: Soft, Nontender, Nondistended and Normal Bowel Sounds; Negative Organomegaly
Rectal: Deferred by Provider
Musculoskeletal: No Clubbing, No Cyanosis and No Edema
Skin: Negative Rash
Neuro: Nonfocal/Grossly Intact
Psych: Calm
Data Reviewed
-
Diagnostic Radiology: Report Reviewed by me
Labs: Labs Reviewed by me
[2023-10-05] MEDS: COLACE 100 MG PO ×2 (10:56→21:33)
[2023-10-05] MEDS: MIRALAX 17 GRAMS PO (10:56)
[2023-10-05 11:15] LABS: Glucose - Point of Care 164 mg/dl (70-99)
[2023-10-05] MEDS: NOVOLOG FLEXPEN-LOW RESISTANCE 1 UNITS SC (11:52)
[2023-10-05] MEDS: SINEMET 25-100 2 TABLET TUBE ×2 (13:55→17:47)
[2023-10-05] MEDS: NON-FORMULARY ITEM 200 MG PO (14:20)
[2023-10-05 16:13] LABS: Glucose - Point of Care 118 mg/dl (70-99)
[2023-10-05 16:18] VITALS: BP 125/84
[2023-10-05] MEDS: TYLENOL 650 MG PO (16:18)
[2023-10-05 21:24] LABS: Glucose - Point of Care 137 mg/dl (70-99)
[2023-10-05 23:11] VITALS: BP 103/65
[2023-10-06] MEDS: ATIVAN 2 MG SL ×3 (01:16→14:41)
[2023-10-06] MEDS: BENADRYL 25 MG IV ×4 (01:16→17:57)
[2023-10-06] MEDS: LIORESAL 10 MG TUBE ×3 (05:44→21:36)
[2023-10-06] MEDS: SINEMET 25-100 1.5 TABLET TUBE ×2 (05:44→09:42)
[2023-10-06] MEDS: ZOFRAN 4 MG IV ×2 (06:26→21:16)
[2023-10-06 07:40] VITALS: BP 118/83
[2023-10-06] MEDS: PULMICORT 0.5 MG INH ×2 (07:47→19:40)
[2023-10-06 07:57] LABS: Glucose - Point of Care 94 mg/dl (70-99)
[2023-10-06] MEDS: GASTROCROM 300 MG PO ×4 (09:23→21:36)
[2023-10-06] MEDS: NOVOLOG FLEXPEN-LOW RESISTANCE SC ×3 (09:38→16:40)
[2023-10-06] MEDS: NOVOLOG FLEXPEN 8 UNITS SC ×3 (09:39→16:41)
[2023-10-06] MEDS: SUBUTEX 2 MG SL ×4 (09:40→21:36)
[2023-10-06] MEDS: VITAMIN B1 100 MG TUBE (09:40)
[2023-10-06] MEDS: COLACE 100 MG PO ×2 (09:40→21:31)
[2023-10-06] MEDS: INDERAL 10 MG TUBE ×3 (09:41→21:46)
[2023-10-06] MEDS: CLARITIN 10 MG PO (09:42)
[2023-10-06] MEDS: ZADITOR 1 DROP BOTH EYES ×2 (09:46→21:35)
[2023-10-06] MEDS: PEPCID 40 MG IV ×2 (09:46→21:34)
[2023-10-06] MEDS: HYDREA 500 MG PO ×2 (09:48→21:32)
[2023-10-06] MEDS: DELTASONE 10 MG TUBE ×2 (09:48→21:31)
[2023-10-06] MEDS: MIRALAX 17 GRAMS PO (09:49)
[2023-10-06] MEDS: NSS (PRESERVATIVE FREE) 6 ML IV ×2 (09:52→21:34)
[2023-10-06] MEDS: LOVENOX 100 MG SC ×2 (09:52→21:33)
[2023-10-06] MEDS: NON-FORMULARY ITEM 80 MG PO (09:54)
[2023-10-06] MEDS: LANTUS 0.15 UNITS SC (09:56)
[2023-10-06] MEDS: NON-FORMULARY ITEM 1 MG PO ×2 (09:57→21:32)
[2023-10-06] MEDS: NON-FORMULARY ITEM 1 UNIT INH (09:58)
[2023-10-06] MEDS: NON-FORMULARY ITEM 1 UNIT PO ×2 (09:59→21:33)
[2023-10-06] MEDS: DESENEX/MITRAZOL/ZEASORB 1 APPLIC TOPICAL ×2 (10:04→21:31)
[2023-10-06] MEDS: BACTROBAN 2% OINTMENT 1 APPLIC TOPICAL ×3 (10:05→21:35)
[2023-10-06 12:40] LABS: Glucose - Point of Care 134 mg/dl (70-99)
[2023-10-06] MEDS: BENADRYL 250 MG IV (14:16)
[2023-10-06] MEDS: NSS 1000 IV (14:18)
[2023-10-06] MEDS: NON-FORMULARY ITEM 200 MG PO (14:56)
[2023-10-06] MEDS: SINEMET 25-100 2 TABLET TUBE ×2 (15:02→17:55)
[2023-10-06 15:40] VITALS: BP 124/73
[2023-10-06 16:29] LABS: Glucose - Point of Care 144 mg/dl (70-99)
[2023-10-06] MEDS: ZYRTEC 10 MG TUBE ×2 (16:39→21:36)
--- NOTE | 2023-10-06 16:40 | CM ---
CM spoke with the patient at the bedside. Per patient, her mother came and had lunch with her over the weekend. CM discussed with the patient having her stepfather bring in her laptop for her to use. CM continues to be available to patient/family
and is monitoring medical plan for needs at discharge.
Plan: Discharge plans will depend on whether the patient's mother will agree to accept back. SNFs unwilling to accept due to medications and complexity of patient.
[2023-10-06] MEDS: TYLENOL 650 MG PO (17:36)
--- NOTE | 2023-10-06 18:20 | W.PN.HOSP.TC ---
Today's Communication/Plan
-
Continue current medication regimen including IV Benadryl drip.
Medically stable pending placement.
Assessment / Plan
Assessment / Plan
Impression:
Gram-negative bacteremia due to chronic infected PICC line.
Fever on admission with no evidence of sepsis (tachycardia likely fever mediated)
Conditions prior to admission:
1. Mast cell activation syndrome.
2. Chronic dystonic reaction.
3. Orthostatic hypotension with postural orthostatic and
tachycardia syndrome.
4. Dopa sensitive dystonia.
5. Steroid-induced diabetes.
6. Prior history of deep venous thrombosis and pulmonary embolism.
7. Chronic pain syndrome.
8. Migraine headaches.
9. Gastroesophageal reflux disease.
10. Benzodiazepine and opiate dependence.
11. Restless legs syndrome.
12. Insomnia.
13. History of vocal cord dysfunction.
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
15. Gastroparesis.
16. 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
17. 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
Plan:
Gram-negative bacteremia secondary to PICC line
PICC line removed
Blood culture with Pseudo fluorescens/putida
Repeated blood cultures negative for 48 hours.
PICC line replaced on 09/23
Antibiotics changed to oral Cipro on 09/22 to complete course through 10/05. ECG with normal QTc.
GJ tube in place with buried bumper.
Replaced by interventional radiology on 09/22
s/p fall overnight 10/03-10/04
imaging negative for bleed or fracture
one more dose IV dilaudid now
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
#Mast Cell Activation Syndrome
#DOPA-Responsive Dystonia
-follows with Dr. Lizabeth Villanueva at [facility] hematology.
- Continue Ativan / Benadryl (pump)
�-cont Gleevac ,steroids
�--Levalbuterol as needed, to do her eyedrops
-Continue carbidopa levodopa
-prednisone continued
-appreciate Heme consult
# dystonia/movement disorder-patient apparently has dystonic features with her mast cell activation syndrome. I could not find in literature as a routine clinical presentation but according to patient apparently this is very unusual feature which
was noted in few other patients . She is on IV Benadryl pump at 15 mg/h at home. Yesterday she had 2 episodes of them requiring as needed Ativan. In view of increased need of breakthrough medication consulted neurology.
-baclofen continued
-sinemet continued
-episodes with vasovagal response when trying to have a BM - start standing miralax and colace BID
# Chronic pain syndrome-on high doses of narcotics including p.o. Dilaudid and Suboxone at home. Again unclear the source of her pain.
#GERD
-famotidine continued
-acipHex continued
-simethicone continued
#iron def anemia
-ferrous sulfate continued
#hxt of tachycardia
-EKG with sinus tachycardia
-propranolol continued
#Chronic Nausea / Esophageal Dysmotility/gastroparesis
#History GJ tube
�- Continue diet as tolerated.
�- Continue G-tube to gravity for chronic nausea.
�- Meds via J-tube.
-Zofran every 8 hours as needed
-Continue Pepcid
-emend continued
- PEG tube site without any signs of cellulitis. CT of the abdomen pelvis shows no subcutaneous collection around the PEG tube and it is in place.
#Steroid-Induced DM-II
�- Continue basal insulin and add SSI coverage as needed.
-lantus 15u daily
-lispro 8u before meals
#Steroid-Induced Osteoporosis
#Chronic Pain Syndrome secondary to the above on chronic opiates
�- Continue buprenorphine 2 mg 4 times daily , Dilaudid 8 mg as needed
�- PT / OT evaluations.
�- Follow-up with usual orientation and mobility specialist after discharge.
#allergy induced asthma
#chornic hypoxic respiratory failure
-albuterol continued
-budesonide continued
-cetirizine continued
-cromolyn continued
#Migraine Hx
ODT Nurtec as needed
#Restless leg syndrome
-Continue baclofen
#History of DVT / PE
#Takes subcu Lovenox 100 mg twice daily
DNR on admission
Anticipated Discharge: Within 24 hours
Subjective/Interval History
-
Date of Service: October 06, 2023
Objective Data
-
Vital Signs:
Vital Signs
Temp Pulse Resp BP Pulse Ox
97.7 F 105 16 124/73 99
10/06/23 15:40 10/06/23 16:39 10/06/23 15:40 10/06/23 16:39 10/06/23 15:40
I&O
10/05/23 10/06/23 10/07/23
06:59 06:59 06:59
Intake Total 2240 / 2240 1680 / 1680 350 / 350
Output Total 800 / 800 5350 / 5350 800 / 800
Balance 1440 / 1440 -3670 / -3670 -450 / -450
Physical Exam
-
General: Well Developed and No Apparent Distress
HEENT: Normocephalic, Atraumatic and Moist Mucous Membranes
Respiratory: Clear to Auscultation
Cardiac: Regular Rhythm and S1/S2; Negative Murmur, Rub or Gallop
GI: Soft, Nontender, Nondistended and Normal Bowel Sounds; Negative Organomegaly
Rectal: Deferred by Provider
Musculoskeletal: No Clubbing, No Cyanosis and No Edema
Skin: Negative Rash
Neuro: Nonfocal/Grossly Intact
[2023-10-06] MEDS: FEOSOL 325 MG PO (21:35)
[2023-10-06 21:45] LABS: Glucose - Point of Care 123 mg/dl (70-99)
[2023-10-06] MEDS: MYLICON 80 MG PO (23:04)
[2023-10-06 23:48] VITALS: BP 115/77
[2023-10-07] MEDS: BENADRYL 25 MG IV ×5 (00:27→18:44)
[2023-10-07] MEDS: ATIVAN 2 MG SL ×3 (00:27→16:36)
[2023-10-07] MEDS: TYLENOL 650 MG PO ×2 (00:50→05:55)
[2023-10-07] MEDS: BENADRYL 250 MG IV ×2 (05:21→21:16)
[2023-10-07] MEDS: SINEMET 25-100 1.5 TABLET TUBE ×2 (05:21→11:23)
[2023-10-07] MEDS: LIORESAL 10 MG TUBE ×3 (05:21→21:17)
[2023-10-07] MEDS: ZOFRAN 4 MG IV ×2 (06:00→17:35)
[2023-10-07 07:23] LABS: Glucose - Point of Care 112 mg/dl (70-99)
[2023-10-07] MEDS: PULMICORT 0.5 MG INH (07:35)
[2023-10-07 07:45] VITALS: BP 116/80
[2023-10-07] MEDS: NOVOLOG FLEXPEN-LOW RESISTANCE SC ×2 (09:43→17:30)
[2023-10-07] MEDS: SUBUTEX 2 MG SL ×4 (10:00→21:34)
[2023-10-07] MEDS: BACTROBAN 2% OINTMENT 1 APPLIC TOPICAL ×3 (10:00→21:35)
[2023-10-07] MEDS: NON-FORMULARY ITEM 1 UNIT INH (10:00)
[2023-10-07] MEDS: NON-FORMULARY ITEM 1 MG PO ×2 (10:00→21:27)
[2023-10-07] MEDS: VITAMIN B1 100 MG TUBE (10:00)
[2023-10-07] MEDS: NSS (PRESERVATIVE FREE) 6 ML IV ×2 (10:00→21:31)
[2023-10-07] MEDS: DELTASONE 10 MG TUBE ×2 (10:00→21:18)
[2023-10-07] MEDS: PEPCID 40 MG IV ×2 (10:00→21:29)
[2023-10-07] MEDS: LOVENOX 100 MG SC ×2 (10:00→21:13)
[2023-10-07] MEDS: CLARITIN 10 MG PO (10:00)
[2023-10-07] MEDS: COLACE 100 MG PO (10:00)
[2023-10-07] MEDS: INDERAL 10 MG TUBE ×3 (10:00→21:35)
[2023-10-07] MEDS: HYDREA 500 MG PO ×2 (10:00→21:27)
[2023-10-07] MEDS: GASTROCROM 300 MG PO ×4 (10:00→21:36)
[2023-10-07] MEDS: MIRALAX 17 GRAMS PO (10:00)
[2023-10-07] MEDS: NON-FORMULARY ITEM 1 UNIT PO ×3 (10:00→21:39)
[2023-10-07] MEDS: ZADITOR 1 DROP BOTH EYES ×2 (10:00→21:33)
[2023-10-07] MEDS: LANTUS 0.15 UNITS SC (10:30)
[2023-10-07] MEDS: NON-FORMULARY ITEM 80 MG PO (10:50)
[2023-10-07] MEDS: NOVOLOG FLEXPEN SC ×2 (10:54→18:48)
[2023-10-07] MEDS: DESENEX/MITRAZOL/ZEASORB 1 APPLIC TOPICAL ×2 (11:01→21:25)
[2023-10-07 14:00] LABS: Glucose - Point of Care 171 mg/dl (70-99)
[2023-10-07] MEDS: NOVOLOG FLEXPEN 8 UNITS SC (14:55)
[2023-10-07] MEDS: NOVOLOG FLEXPEN-LOW RESISTANCE 1 UNITS SC (14:56)
[2023-10-07] MEDS: NSS 1000 IV (15:00)
[2023-10-07] MEDS: SINEMET 25-100 2 TABLET TUBE ×2 (15:00→17:29)
[2023-10-07] MEDS: NON-FORMULARY ITEM 200 MG PO (15:04)
--- NOTE | 2023-10-07 16:36 | W.PN.HOSP.TC ---
Today's Communication/Plan
-
Medically optimized for discharge pending disposition to options.
Assessment / Plan
Assessment / Plan
Impression:
Gram-negative bacteremia due to chronic infected PICC line.
Fever on admission with no evidence of sepsis (tachycardia likely fever mediated)
Conditions prior to admission:
1. Mast cell activation syndrome.
2. Chronic dystonic reaction.
3. Orthostatic hypotension with postural orthostatic and
tachycardia syndrome.
4. Dopa sensitive dystonia.
5. Steroid-induced diabetes.
6. Prior history of deep venous thrombosis and pulmonary embolism.
7. Chronic pain syndrome.
8. Migraine headaches.
9. Gastroesophageal reflux disease.
10. Benzodiazepine and opiate dependence.
11. Restless legs syndrome.
12. Insomnia.
13. History of vocal cord dysfunction.
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
15. Gastroparesis.
16. 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
17. 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
Plan:
Gram-negative bacteremia secondary to PICC line
PICC line removed
Blood culture with Pseudo fluorescens/putida
Repeated blood cultures negative for 48 hours.
PICC line replaced on 09/23
Antibiotics changed to oral Cipro on 09/22 to complete course through 10/05. ECG with normal QTc.
GJ tube in place with buried bumper.
Replaced by interventional radiology on 09/22
s/p fall overnight 10/03-10/04
imaging negative for bleed or fracture
one more dose IV dilaudid now
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
#Mast Cell Activation Syndrome
#DOPA-Responsive Dystonia
-follows with Dr. Lizabeth Villanueva at [facility] hematology.
- Continue Ativan / Benadryl (pump)
�-cont Gleevac ,steroids
�--Levalbuterol as needed, to do her eyedrops
-Continue carbidopa levodopa
-prednisone continued
-appreciate Heme consult
# dystonia/movement disorder-patient apparently has dystonic features with her mast cell activation syndrome. I could not find in literature as a routine clinical presentation but according to patient apparently this is very unusual feature which
was noted in few other patients . She is on IV Benadryl pump at 15 mg/h at home. Yesterday she had 2 episodes of them requiring as needed Ativan. In view of increased need of breakthrough medication consulted neurology.
-baclofen continued
-sinemet continued
-episodes with vasovagal response when trying to have a BM - start standing miralax and colace BID
# Chronic pain syndrome-on high doses of narcotics including p.o. Dilaudid and Suboxone at home. Again unclear the source of her pain.
#GERD
-famotidine continued
-acipHex continued
-simethicone continued
#iron def anemia
-ferrous sulfate continued
#hxt of tachycardia
-EKG with sinus tachycardia
-propranolol continued
#Chronic Nausea / Esophageal Dysmotility/gastroparesis
#History GJ tube
�- Continue diet as tolerated.
�- Continue G-tube to gravity for chronic nausea.
�- Meds via J-tube.
-Zofran every 8 hours as needed
-Continue Pepcid
-emend continued
- PEG tube site without any signs of cellulitis. CT of the abdomen pelvis shows no subcutaneous collection around the PEG tube and it is in place.
#Steroid-Induced DM-II
�- Continue basal insulin and add SSI coverage as needed.
-lantus 15u daily
-lispro 8u before meals
#Steroid-Induced Osteoporosis
#Chronic Pain Syndrome secondary to the above on chronic opiates
�- Continue buprenorphine 2 mg 4 times daily , Dilaudid 8 mg as needed
�- PT / OT evaluations.
�- Follow-up with usual software testing specialist after discharge.
#allergy induced asthma
#chornic hypoxic respiratory failure
-albuterol continued
-budesonide continued
-cetirizine continued
-cromolyn continued
#Migraine Hx
ODT Nurtec as needed
#Restless leg syndrome
-Continue baclofen
#History of DVT / PE
#Takes subcu Lovenox 100 mg twice daily
DNR on admission
Anticipated Discharge: 24 - 48 hours
Subjective/Interval History
-
Date of Service: October 07, 2023
Objective Data
-
Vital Signs:
Vital Signs
Temp Pulse Resp BP Pulse Ox
98.2 F 99 18 116/80 98
10/07/23 07:45 10/07/23 10:00 10/07/23 07:45 10/07/23 10:00 10/07/23 07:45
I&O
10/06/23 10/07/23 10/08/23
06:59 06:59 06:59
Intake Total 1680 / 1680 1730 / 1730
Output Total 5350 / 5350 4375 / 4375
Balance -3670 / -3670 -2645 / -2645
Physical Exam
-
General: Well Developed and No Apparent Distress
HEENT: Normocephalic, Atraumatic and Moist Mucous Membranes
Respiratory: Clear to Auscultation
Cardiac: Regular Rhythm and S1/S2; Negative Murmur, Rub or Gallop
GI: Soft, Nontender, Nondistended and Normal Bowel Sounds; Negative Organomegaly
Rectal: Deferred by Provider
Musculoskeletal: No Clubbing, No Cyanosis and No Edema
Skin: Negative Rash
Neuro: Nonfocal/Grossly Intact
[2023-10-07 17:00] LABS: Glucose - Point of Care 104 mg/dl (70-99)
[2023-10-07] MEDS: ATIVAN 2 MG IV (17:12)
[2023-10-07] MEDS: NSS (PRESERVATIVE FREE) 1 ML IV (17:15)
[2023-10-07 17:22] VITALS: BP 131/100
[2023-10-07] MEDS: ZYRTEC 10 MG TUBE ×2 (17:29→21:34)
--- NOTE | 2023-10-07 18:00 | PTCARENOTE ---
Patient had dystonic episode around 4:25 PM. Was given PRN ativan SL. MD was notified and came to see the patient; additional 2mg ativan IV was ordered and given. Prior to this patient had an episode of bowel incontinence. This nurse stayed with
patient throughout the episode, in all approx. 45 minutes.
[2023-10-07] MEDS: COLACE PO ×2 (21:17→21:38)
[2023-10-07 21:20] LABS: Glucose - Point of Care 157 mg/dl (70-99)
[2023-10-07] MEDS: FEOSOL 325 MG PO (21:34)
[2023-10-07 23:17] VITALS: BP 119/75
[2023-10-08] MEDS: BENADRYL 25 MG IV ×3 (01:31→18:06)
[2023-10-08] MEDS: ATIVAN 2 MG SL ×3 (01:31→18:06)
--- NOTE | 2023-10-08 01:35 | PTCARENOTE ---
Pt had x1 dystonic episode that lasted approx 15 min, able to notify staff via call light when it happened, and able to communicate. PRN Ativan and benadryl given with relief. IV benadryl infusing continuosly at 15ml/hr.
[2023-10-08] MEDS: SINEMET 25-100 1.5 TABLET TUBE ×2 (05:47→09:38)
[2023-10-08] MEDS: LIORESAL 10 MG TUBE ×3 (05:48→22:36)
[2023-10-08 08:20] VITALS: BP 114/76
[2023-10-08 08:46] LABS: Glucose - Point of Care 92 mg/dl (70-99)
[2023-10-08] MEDS: NOVOLOG FLEXPEN-LOW RESISTANCE SC ×3 (09:05→17:47)
[2023-10-08] MEDS: NOVOLOG FLEXPEN 8 UNITS SC ×3 (09:22→17:48)
[2023-10-08] MEDS: SUBUTEX 2 MG SL ×4 (09:23→22:52)
[2023-10-08] MEDS: VITAMIN B1 100 MG TUBE (09:23)
[2023-10-08] MEDS: GASTROCROM 300 MG PO ×4 (09:24→22:36)
[2023-10-08] MEDS: INDERAL 10 MG TUBE ×3 (09:24→22:37)
[2023-10-08] MEDS: MIRALAX PO (09:24)
[2023-10-08] MEDS: LANTUS 0.15 UNITS SC (09:24)
[2023-10-08] MEDS: COLACE PO ×2 (09:24→20:42)
[2023-10-08] MEDS: HYDREA 500 MG PO ×2 (09:25→20:40)
[2023-10-08] MEDS: LOVENOX 100 MG SC ×2 (09:25→20:40)
[2023-10-08] MEDS: DELTASONE 10 MG TUBE ×2 (09:25→20:41)
[2023-10-08] MEDS: DESENEX/MITRAZOL/ZEASORB 1 APPLIC TOPICAL ×2 (09:25→20:41)
[2023-10-08] MEDS: PEPCID 40 MG IV ×2 (09:26→20:44)
[2023-10-08] MEDS: CLARITIN 10 MG PO (09:26)
[2023-10-08] MEDS: NSS (PRESERVATIVE FREE) 6 ML IV ×2 (09:27→20:44)
[2023-10-08] MEDS: NON-FORMULARY ITEM 80 MG PO (09:27)
[2023-10-08] MEDS: NON-FORMULARY ITEM 1 MG PO ×2 (09:28→20:42)
[2023-10-08] MEDS: NON-FORMULARY ITEM 1 UNIT PO ×2 (09:29→20:43)
[2023-10-08] MEDS: NON-FORMULARY ITEM 1 UNIT INH (09:30)
[2023-10-08] MEDS: BACTROBAN 2% OINTMENT 1 APPLIC TOPICAL ×3 (09:31→22:35)
[2023-10-08] MEDS: ZADITOR 1 DROP BOTH EYES ×2 (09:31→20:44)
[2023-10-08] MEDS: ZOFRAN 4 MG IV (09:38)
[2023-10-08] MEDS: NSS 1000 IV (11:53)
--- NOTE | 2023-10-08 12:19 | PTCARENOTE ---
this nurse on phone with patient mother. pt mother updated on care. pt had episode of dystonia this afternoon. pt given prn medications to help manage symptoms. pt given prn benadryl and ativan
[2023-10-08 12:38] LABS: Blood Urea Nitrogen 6 mg/dl (7-17); Calcium 9.4 mg/dl (8.4-10.2); Carbon Dioxide 28 mmol/L (22-30); Chloride 102 mmol/L (98-107); Estimated Creatinine Clearance > 125 ml/min; Glucose 95 mg/dl (70-99); Potassium 3.7 mmol/L (3.5-5.1); Sodium 139 mmol/L (135-145); eGFR > 60.00
[2023-10-08 12:54] LABS: Glucose - Point of Care 90 mg/dl (70-99)
[2023-10-08] MEDS: BENADRYL 250 MG IV (13:27)
[2023-10-08] MEDS: NON-FORMULARY ITEM 200 MG PO (13:29)
[2023-10-08] MEDS: SINEMET 25-100 2 TABLET TUBE ×2 (13:32→17:47)
[2023-10-08 14:02] VITALS: BP 128/92; PULSE 102; O2SAT 96; O2SAT 98
[2023-10-08 15:01] VITALS: BP 111/72
--- NOTE | 2023-10-08 15:19 | CM ---
Reviewed the chart notes. Received TT from Palliative Care SW that she will be in to see patient tomorrow to have her sign a housing voucher application. Patient's mother still not in agreement with the patient returning home with resumption of
prior services. CM continues to be available to patient/family and is monitoring medical plan for needs at discharge.
Plan: Discharge plans will depend on placement.
--- NOTE | 2023-10-08 16:42 | W.PN.HOSP.TC ---
Today's Communication/Plan
-
Continue current antihistamine regimen including IV Benadryl.
Ongoing disposition efforts.
Assessment / Plan
Assessment / Plan
Impression:
Gram-negative bacteremia due to chronic infected PICC line.
Fever on admission with no evidence of sepsis (tachycardia likely fever mediated)
Conditions prior to admission:
1. Mast cell activation syndrome.
2. Chronic dystonic reaction.
3. Orthostatic hypotension with postural orthostatic and
tachycardia syndrome.
4. Dopa sensitive dystonia.
5. Steroid-induced diabetes.
6. Prior history of deep venous thrombosis and pulmonary embolism.
7. Chronic pain syndrome.
8. Migraine headaches.
9. Gastroesophageal reflux disease.
10. Benzodiazepine and opiate dependence.
11. Restless legs syndrome.
12. Insomnia.
13. History of vocal cord dysfunction.
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
15. Gastroparesis.
16. 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
17. 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
Plan:
Gram-negative bacteremia secondary to PICC line
PICC line removed
Blood culture with Pseudo fluorescens/putida
Repeated blood cultures negative for 48 hours.
PICC line replaced on 09/23
Antibiotics changed to oral Cipro on 09/22 to complete course through 10/05. ECG with normal QTc.
GJ tube in place with buried bumper.
Replaced by interventional radiology on 09/22
s/p fall overnight 10/03-10/04
imaging negative for bleed or fracture
one more dose IV dilaudid now
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
#Mast Cell Activation Syndrome
#DOPA-Responsive Dystonia
-follows with Dr. Lizabeth Villanueva at [facility] hematology.
- Continue Ativan / Benadryl (pump)
�-cont Gleevac ,steroids
�--Levalbuterol as needed, to do her eyedrops
-Continue carbidopa levodopa
-prednisone continued
-appreciate Heme consult
# dystonia/movement disorder-patient apparently has dystonic features with her mast cell activation syndrome. I could not find in literature as a routine clinical presentation but according to patient apparently this is very unusual feature which
was noted in few other patients . She is on IV Benadryl pump at 15 mg/h at home. Yesterday she had 2 episodes of them requiring as needed Ativan. In view of increased need of breakthrough medication consulted neurology.
-baclofen continued
-sinemet continued
-episodes with vasovagal response when trying to have a BM - start standing miralax and colace BID
# Chronic pain syndrome-on high doses of narcotics including p.o. Dilaudid and Suboxone at home. Again unclear the source of her pain.
#GERD
-famotidine continued
-acipHex continued
-simethicone continued
#iron def anemia
-ferrous sulfate continued
#hxt of tachycardia
-EKG with sinus tachycardia
-propranolol continued
#Chronic Nausea / Esophageal Dysmotility/gastroparesis
#History GJ tube
�- Continue diet as tolerated.
�- Continue G-tube to gravity for chronic nausea.
�- Meds via J-tube.
-Zofran every 8 hours as needed
-Continue Pepcid
-emend continued
- PEG tube site without any signs of cellulitis. CT of the abdomen pelvis shows no subcutaneous collection around the PEG tube and it is in place.
#Steroid-Induced DM-II
�- Continue basal insulin and add SSI coverage as needed.
-lantus 15u daily
-lispro 8u before meals
#Steroid-Induced Osteoporosis
#Chronic Pain Syndrome secondary to the above on chronic opiates
�- Continue buprenorphine 2 mg 4 times daily , Dilaudid 8 mg as needed
�- PT / OT evaluations.
�- Follow-up with usual channel specialist after discharge.
#allergy induced asthma
#chornic hypoxic respiratory failure
-albuterol continued
-budesonide continued
-cetirizine continued
-cromolyn continued
#Migraine Hx
ODT Nurtec as needed
#Restless leg syndrome
-Continue baclofen
#History of DVT / PE
#Takes subcu Lovenox 100 mg twice daily
DNR on admission
Anticipated Discharge: Within 24 hours
Subjective/Interval History
-
Date of Service: October 08, 2023
Objective Data
-
Labs:
Laboratory Results
10/08/23
11:48
Sodium 139
Potassium 3.7
Chloride 102
Carbon Dioxide 28
BUN 6 L
Creatinine 0.4 L
Glucose 95
Calcium 9.4
Vital Signs:
Vital Signs
Temp Pulse Resp BP Pulse Ox
99.0 F 111 18 111/72 96
10/08/23 15:01 10/08/23 15:01 10/08/23 15:01 10/08/23 15:01 10/08/23 15:01
I&O
10/07/23 10/08/23 10/09/23
06:59 06:59 06:59
Intake Total 1730 / 1730 1989
Output Total 4375 / 4375 2925 / 2925
Balance -2645 / -2645 -935 / -935
Physical Exam
-
General: Well Developed and No Apparent Distress
HEENT: Normocephalic, Atraumatic and Moist Mucous Membranes
Respiratory: Clear to Auscultation
Cardiac: Regular Rhythm and S1/S2; Negative Murmur, Rub or Gallop
GI: Soft, Nontender, Nondistended and Normal Bowel Sounds; Negative Organomegaly
Rectal: Deferred by Provider
Musculoskeletal: No Clubbing, No Cyanosis and No Edema
Skin: Negative Rash
Neuro: Nonfocal/Grossly Intact
[2023-10-08 17:47] LABS: Glucose - Point of Care 104 mg/dl (70-99)
[2023-10-08] MEDS: ZYRTEC 10 MG TUBE ×2 (17:47→22:37)
[2023-10-08 21:45] LABS: Glucose - Point of Care 132 mg/dl (70-99)
[2023-10-08] MEDS: FEOSOL 325 MG PO (22:35)
[2023-10-08] MEDS: PULMICORT 0.5 MG INH (23:05)
[2023-10-08 23:23] VITALS: BP 122/77
[2023-10-09] MEDS: ATIVAN 2 MG SL ×4 (00:36→23:30)
[2023-10-09] MEDS: BENADRYL 25 MG IV ×5 (00:36→23:30)
[2023-10-09] MEDS: TYLENOL 650 MG PO ×2 (00:42→19:23)
[2023-10-09] MEDS: ZOFRAN 4 MG IV ×2 (00:42→23:27)
[2023-10-09] MEDS: BENADRYL 250 MG IV ×2 (04:39→21:43)
[2023-10-09] MEDS: SINEMET 25-100 1.5 TABLET TUBE ×2 (05:58→10:01)
[2023-10-09] MEDS: LIORESAL 10 MG TUBE ×3 (05:59→21:53)
[2023-10-09 07:35] VITALS: BP 121/71
[2023-10-09] MEDS: PULMICORT 0.5 MG INH ×2 (07:56→19:40)
[2023-10-09] MEDS: NOVOLOG FLEXPEN-LOW RESISTANCE SC ×3 (08:10→17:57)
[2023-10-09 09:58] LABS: Glucose - Point of Care 107 mg/dl (70-99)
[2023-10-09] MEDS: NOVOLOG FLEXPEN 8 UNITS SC ×3 (09:59→17:59)
[2023-10-09] MEDS: NON-FORMULARY ITEM 1 UNIT INH (10:00)
[2023-10-09] MEDS: LOVENOX 100 MG SC ×2 (10:00→21:46)
[2023-10-09] MEDS: ZADITOR 1 DROP BOTH EYES ×2 (10:00→21:50)
[2023-10-09] MEDS: VITAMIN B1 100 MG TUBE (10:01)
[2023-10-09] MEDS: GASTROCROM 300 MG PO ×4 (10:01→21:52)
[2023-10-09] MEDS: HYDREA 500 MG PO ×2 (10:01→21:46)
[2023-10-09] MEDS: CLARITIN 10 MG PO (10:01)
[2023-10-09] MEDS: INDERAL 10 MG TUBE ×3 (10:01→21:59)
[2023-10-09] MEDS: SUBUTEX 2 MG SL ×4 (10:01→22:00)
[2023-10-09] MEDS: DELTASONE 10 MG TUBE ×2 (10:02→21:46)
[2023-10-09] MEDS: PEPCID 40 MG IV ×2 (10:02→21:49)
[2023-10-09] MEDS: MIRALAX PO (10:02)
[2023-10-09] MEDS: NSS (PRESERVATIVE FREE) 6 ML IV ×2 (10:02→21:49)
[2023-10-09] MEDS: LANTUS 0.15 UNITS SC (10:02)
[2023-10-09] MEDS: COLACE PO ×2 (10:02→21:43)
[2023-10-09] MEDS: DESENEX/MITRAZOL/ZEASORB 1 APPLIC TOPICAL ×2 (10:03→21:46)
[2023-10-09] MEDS: BACTROBAN 2% OINTMENT 1 APPLIC TOPICAL ×3 (10:03→21:52)
[2023-10-09] MEDS: NON-FORMULARY ITEM 80 MG PO (10:03)
[2023-10-09] MEDS: NON-FORMULARY ITEM 1 MG PO ×2 (10:04→21:47)
[2023-10-09] MEDS: NON-FORMULARY ITEM 1 UNIT PO ×2 (10:04→21:48)
--- NOTE | 2023-10-09 12:53 | CM ---
Reviewed the chart notes and spoke with the patient at the beside. Per patient, Amber the transition social worker from [facility] was out today and had her sign paperwork for housing. Patient's [employer] player services representative was out yesterday and is
also working on finding housing for the patient. Per patient, her mother is not allowing her back to home at this point. CM continues to be available to patient/family and is monitoring medical plan for needs at discharge.
Plan: Discharge to a home with resumption of services provided by [facility].
[2023-10-09] MEDS: ATIVAN 2 MG IV ×2 (13:13→18:13)
[2023-10-09 13:17] LABS: Glucose - Point of Care 117 mg/dl (70-99)
[2023-10-09] MEDS: NSS 1000 IV (13:18)
[2023-10-09] MEDS: NSS (PRESERVATIVE FREE) 1 ML IV ×2 (13:18→18:13)
[2023-10-09] MEDS: CATHFLO/ACTIVASE 2 MG IV (13:58)
[2023-10-09] MEDS: NON-FORMULARY ITEM 200 MG PO (15:21)
[2023-10-09] MEDS: SINEMET 25-100 2 TABLET TUBE ×2 (15:23→17:59)
[2023-10-09 15:30] VITALS: BP 122/74
[2023-10-09] MEDS: ZYRTEC 10 MG TUBE ×2 (17:59→21:53)
[2023-10-09 18:02] LABS: Glucose - Point of Care 127 mg/dl (70-99)
[2023-10-09] MEDS: ATIVAN IV (18:09)
--- NOTE | 2023-10-09 18:11 | W.PN.HOSP.TC ---
Today's Communication/Plan
-
Patient with recurrent dystonic reaction.
Will provide additional dose of IV lorazepam.
Continue IV Benadryl drip.
IV hydration.
Assessment / Plan
Assessment / Plan
Impression:
Gram-negative bacteremia due to chronic infected PICC line.
Fever on admission with no evidence of sepsis (tachycardia likely fever mediated)
Conditions prior to admission:
1. Mast cell activation syndrome.
2. Chronic dystonic reaction.
3. Orthostatic hypotension with postural orthostatic and
tachycardia syndrome.
4. Dopa sensitive dystonia.
5. Steroid-induced diabetes.
6. Prior history of deep venous thrombosis and pulmonary embolism.
7. Chronic pain syndrome.
8. Migraine headaches.
9. Gastroesophageal reflux disease.
10. Benzodiazepine and opiate dependence.
11. Restless legs syndrome.
12. Insomnia.
13. History of vocal cord dysfunction.
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
15. Gastroparesis.
16. 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
17. 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
Plan:
Gram-negative bacteremia secondary to PICC line
PICC line removed
Blood culture with Pseudo fluorescens/putida
Repeated blood cultures negative for 48 hours.
PICC line replaced on 09/23
Antibiotics changed to oral Cipro on 09/22 to complete course through 10/05. ECG with normal QTc.
GJ tube in place with buried bumper.
Replaced by interventional radiology on 09/22
s/p fall overnight 10/03-10/04
imaging negative for bleed or fracture
one more dose IV dilaudid now
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
#Mast Cell Activation Syndrome
#DOPA-Responsive Dystonia
-follows with Dr. Lizabeth Villanueva at [facility] hematology.
- Continue Ativan / Benadryl (pump)
�-cont Gleevac ,steroids
�--Levalbuterol as needed, to do her eyedrops
-Continue carbidopa levodopa
-prednisone continued
-appreciate Heme consult
# dystonia/movement disorder-patient apparently has dystonic features with her mast cell activation syndrome. I could not find in literature as a routine clinical presentation but according to patient apparently this is very unusual feature which
was noted in few other patients . She is on IV Benadryl pump at 15 mg/h at home. Yesterday she had 2 episodes of them requiring as needed Ativan. In view of increased need of breakthrough medication consulted neurology.
-baclofen continued
-sinemet continued
-episodes with vasovagal response when trying to have a BM - start standing miralax and colace BID
# Chronic pain syndrome-on high doses of narcotics including p.o. Dilaudid and Suboxone at home. Again unclear the source of her pain.
#GERD
-famotidine continued
-acipHex continued
-simethicone continued
#iron def anemia
-ferrous sulfate continued
#hxt of tachycardia
-EKG with sinus tachycardia
-propranolol continued
#Chronic Nausea / Esophageal Dysmotility/gastroparesis
#History GJ tube
�- Continue diet as tolerated.
�- Continue G-tube to gravity for chronic nausea.
�- Meds via J-tube.
-Zofran every 8 hours as needed
-Continue Pepcid
-emend continued
- PEG tube site without any signs of cellulitis. CT of the abdomen pelvis shows no subcutaneous collection around the PEG tube and it is in place.
#Steroid-Induced DM-II
�- Continue basal insulin and add SSI coverage as needed.
-lantus 15u daily
-lispro 8u before meals
#Steroid-Induced Osteoporosis
#Chronic Pain Syndrome secondary to the above on chronic opiates
�- Continue buprenorphine 2 mg 4 times daily , Dilaudid 8 mg as needed
�- PT / OT evaluations.
�- Follow-up with usual investigation specialist after discharge.
#allergy induced asthma
#chornic hypoxic respiratory failure
-albuterol continued
-budesonide continued
-cetirizine continued
-cromolyn continued
#Migraine Hx
ODT Nurtec as needed
#Restless leg syndrome
-Continue baclofen
#History of DVT / PE
#Takes subcu Lovenox 100 mg twice daily
DNR on admission
Anticipated Discharge: > 48 hours
Subjective/Interval History
-
Date of Service: October 09, 2023
Objective Data
-
Vital Signs:
Vital Signs
Temp Pulse Resp BP Pulse Ox
98 F 101 16 122/74 97
10/09/23 15:30 10/09/23 15:30 10/09/23 15:30 10/09/23 15:30 10/09/23 15:30
I&O
10/08/23 10/09/23 10/10/23
06:59 06:59 06:59
Intake Total 1989 2790 / 2790 660 / 660
Output Total 2925 / 2925 350 / 350
Balance -935 / -935 2440 / 2440 660 / 660
Physical Exam
-
General: Well Developed and No Apparent Distress
HEENT: Normocephalic, Atraumatic and Moist Mucous Membranes
Respiratory: Clear to Auscultation
Cardiac: Regular Rhythm and S1/S2; Negative Murmur, Rub or Gallop
GI: Soft, Nontender, Nondistended and Normal Bowel Sounds; Negative Organomegaly
Rectal: Deferred by Provider
Musculoskeletal: No Clubbing, No Cyanosis and No Edema
Skin: Negative Rash
Neuro: Nonfocal/Grossly Intact
--- NOTE | 2023-10-09 18:14 | PTCARENOTE ---
this nurse an pct went to enter the room at 1800 to do end of shift medications and I&Os. pt was not able to communicate and was contracted in both b/l upper extremities. made aware. SL ativan given as well as a STAT 2mg of ativan and prn
benadryl. see MAR for proper documentation. pt given two ice bags to help with diaphoresis. pt in episode for a total of 25 minutes.
[2023-10-09 21:35] LABS: Glucose - Point of Care 110 mg/dl (70-99)
[2023-10-09] MEDS: FEOSOL 325 MG PO (21:52)
[2023-10-09 23:13] VITALS: BP 120/83
[2023-10-09] MEDS: XOPENEX 0.63 MG INHALANT SOLUTION INH (23:58)
[2023-10-10] VITALS (8 sets, daily range): BP systolic 100–161; BP diastolic 71–137
[2023-10-10] MEDS: ATIVAN 1 MG IV (00:15)
[2023-10-10] MEDS: NSS (PRESERVATIVE FREE) 0.5 ML IV (00:29)
--- NOTE | 2023-10-10 00:50 | RR ---
A Rapid Response was called on this patient, please see Rapid Response form.
[2023-10-10] MEDS: BENADRYL 25 MG IV ×4 (02:50→21:39)
--- NOTE | 2023-10-10 04:50 | W.PN.UPDATE ---
Update Note
Progress Note Update
OPERATING ROOM ASSISTANT called. RN reported patient having dystonia reactions. Per nursing patient asking for EpiPen, Currently afebrile, non-verbal, hemodynamically stable with stable oxygenation at 2L O2
Physical examination with no evidence of stridor or bronchospasm, lungs noted induced wheezing and cough. Arms contracted with visible shaking and sweating, stable VS, Patient denied to have chest Xray done. will give order of 1mg IV Ativan.
Patient continuos to have similar symptoms and now verbal, is asking for more Benadryl, and IV Dilaudid to RN, Advised to give some time for other medications to work. Patient continuos to be on Benadryl drip, One hour later, patient doing better,
mild tensed muscle, without respiratory distress.
[2023-10-10] MEDS: LIORESAL 10 MG TUBE ×2 (05:24→12:56)
[2023-10-10] MEDS: SINEMET 25-100 1.5 TABLET TUBE ×2 (05:24→09:33)
[2023-10-10 07:24] LABS: Glucose - Point of Care 93 mg/dl (70-99)
[2023-10-10] MEDS: PULMICORT 0.5 MG INH ×2 (07:48→19:34)
[2023-10-10] MEDS: NOVOLOG FLEXPEN-LOW RESISTANCE SC ×3 (07:48→17:52)
[2023-10-10] MEDS: LANTUS 0.15 UNITS SC (09:31)
[2023-10-10] MEDS: DELTASONE 10 MG TUBE ×2 (09:32→20:14)
[2023-10-10] MEDS: MIRALAX 17 GRAMS PO (09:32)
[2023-10-10] MEDS: HYDREA 500 MG PO ×2 (09:32→20:16)
[2023-10-10] MEDS: COLACE 100 MG PO (09:33)
[2023-10-10] MEDS: INDERAL 10 MG TUBE ×2 (09:33→17:38)
[2023-10-10] MEDS: CLARITIN 10 MG PO (09:33)
[2023-10-10] MEDS: VITAMIN B1 100 MG TUBE (09:33)
[2023-10-10] MEDS: SUBUTEX 2 MG SL ×3 (09:33→17:38)
[2023-10-10] MEDS: LOVENOX 100 MG SC ×2 (09:34→20:12)
[2023-10-10] MEDS: PEPCID 40 MG IV ×2 (09:34→20:20)
[2023-10-10] MEDS: GASTROCROM 300 MG PO ×3 (09:34→17:38)
[2023-10-10] MEDS: NSS (PRESERVATIVE FREE) 6 ML IV ×2 (09:35→20:21)
[2023-10-10] MEDS: DESENEX/MITRAZOL/ZEASORB 1 APPLIC TOPICAL ×2 (09:35→20:15)
[2023-10-10] MEDS: NON-FORMULARY ITEM 80 MG PO (09:36)
[2023-10-10] MEDS: BACTROBAN 2% OINTMENT 1 APPLIC TOPICAL ×2 (09:38→17:39)
[2023-10-10] MEDS: NON-FORMULARY ITEM 1 MG PO ×2 (09:39→20:17)
[2023-10-10] MEDS: NON-FORMULARY ITEM 1 UNIT PO ×2 (09:40→20:19)
[2023-10-10] MEDS: NON-FORMULARY ITEM 1 UNIT INH (09:41)
[2023-10-10] MEDS: ZADITOR 1 DROP BOTH EYES ×2 (09:41→20:22)
[2023-10-10] MEDS: NOVOLOG FLEXPEN 8 UNITS SC ×3 (09:43→20:12)
[2023-10-10 11:31] LABS: Glucose - Point of Care 143 mg/dl (70-99)
[2023-10-10] MEDS: NSS 1000 IV (11:37)
[2023-10-10] MEDS: ATIVAN 2 MG SL ×2 (11:44→21:37)
[2023-10-10] MEDS: SINEMET 25-100 2 TABLET TUBE ×2 (12:56→17:38)
[2023-10-10] MEDS: NON-FORMULARY ITEM 200 MG PO (12:59)
[2023-10-10] MEDS: BENADRYL 250 MG IV (14:41)
[2023-10-10] MEDS: ATIVAN 2 MG IV ×2 (14:47→22:01)
[2023-10-10] MEDS: NSS (PRESERVATIVE FREE) 1 ML IV ×2 (14:53→22:01)
--- NOTE | 2023-10-10 15:00 | RR ---
A Rapid Response was called on this patient, please see Rapid Response form.
--- NOTE | 2023-10-10 15:07 | CM ---
Reviewed the chart notes. Per notes, a rapid response was called for the patient last evening. CM continues to be available to patient/family and is monitoring medical plan for needs at discharge.
Plan: Discharge with resumption of services once a home is found for the patient. Patient's mother unwilling to accept the patient back home. [facility] denied patient due to a psych diagnosis from previous hospital stays.
--- NOTE | 2023-10-10 15:12 | W.PN.HOSP.TC ---
Today's Communication/Plan
-
Dystonic episode with rapid response called.
Patient is unresponsive with clonic activity.
Stable vital signs
Exam without wheezing or stridor.
Lorazepam 2 mg IV, epinephrine 0.3 mg IV, hydromorphone 1 mg IV provided with shortly ceased tonic activity.
Continue IV Benadryl.
Continue IV fluids
Assessment / Plan
Assessment / Plan
Impression:
Gram-negative bacteremia due to chronic infected PICC line.
Fever on admission with no evidence of sepsis (tachycardia likely fever mediated)
Conditions prior to admission:
1. Mast cell activation syndrome.
2. Chronic dystonic reaction.
3. Orthostatic hypotension with postural orthostatic and
tachycardia syndrome.
4. Dopa sensitive dystonia.
5. Steroid-induced diabetes.
6. Prior history of deep venous thrombosis and pulmonary embolism.
7. Chronic pain syndrome.
8. Migraine headaches.
9. Gastroesophageal reflux disease.
10. Benzodiazepine and opiate dependence.
11. Restless legs syndrome.
12. Insomnia.
13. History of vocal cord dysfunction.
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
15. Gastroparesis.
16. 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
17. 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
Plan:
Gram-negative bacteremia secondary to PICC line
PICC line removed
Blood culture with Pseudo fluorescens/putida
Repeated blood cultures negative for 48 hours.
PICC line replaced on 09/23
Antibiotics changed to oral Cipro on 09/22 to complete course through 10/05. ECG with normal QTc.
GJ tube in place with buried bumper.
Replaced by interventional radiology on 09/22
s/p fall overnight 10/03-10/04
imaging negative for bleed or fracture
one more dose IV dilaudid now
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
#Mast Cell Activation Syndrome
#DOPA-Responsive Dystonia
-follows with Dr. Lizabeth Villanueva at [facility] hematology.
- Continue Ativan / Benadryl (pump)
�-cont Gleevac ,steroids
�--Levalbuterol as needed, to do her eyedrops
-Continue carbidopa levodopa
-prednisone continued
-appreciate Heme consult
# dystonia/movement disorder-patient apparently has dystonic features with her mast cell activation syndrome. I could not find in literature as a routine clinical presentation but according to patient apparently this is very unusual feature which
was noted in few other patients . She is on IV Benadryl pump at 15 mg/h at home. Yesterday she had 2 episodes of them requiring as needed Ativan. In view of increased need of breakthrough medication consulted neurology.
-baclofen continued
-sinemet continued
-episodes with vasovagal response when trying to have a BM - start standing miralax and colace BID
# Chronic pain syndrome-on high doses of narcotics including p.o. Dilaudid and Suboxone at home. Again unclear the source of her pain.
#GERD
-famotidine continued
-acipHex continued
-simethicone continued
#iron def anemia
-ferrous sulfate continued
#hxt of tachycardia
-EKG with sinus tachycardia
-propranolol continued
#Chronic Nausea / Esophageal Dysmotility/gastroparesis
#History GJ tube
�- Continue diet as tolerated.
�- Continue G-tube to gravity for chronic nausea.
�- Meds via J-tube.
-Zofran every 8 hours as needed
-Continue Pepcid
-emend continued
- PEG tube site without any signs of cellulitis. CT of the abdomen pelvis shows no subcutaneous collection around the PEG tube and it is in place.
#Steroid-Induced DM-II
�- Continue basal insulin and add SSI coverage as needed.
-lantus 15u daily
-lispro 8u before meals
#Steroid-Induced Osteoporosis
#Chronic Pain Syndrome secondary to the above on chronic opiates
�- Continue buprenorphine 2 mg 4 times daily , Dilaudid 8 mg as needed
�- PT / OT evaluations.
�- Follow-up with usual extension specialist after discharge.
#allergy induced asthma
#chornic hypoxic respiratory failure
-albuterol continued
-budesonide continued
-cetirizine continued
-cromolyn continued
#Migraine Hx
ODT Nurtec as needed
#Restless leg syndrome
-Continue baclofen
#History of DVT / PE
#Takes subcu Lovenox 100 mg twice daily
DNR on admission
Disposition: Discussion with primary helpdesk specialist Dr. Ethan Villanueva on 10/09. Discussed possibility of attempting weaning Benadryl drip likely could be done as outpatient. With current family social situation, unfortunately there is no options
for disposition other than home on IV infusion. Possibility of a transfer to [facility] discussed as well, although according to Dr. Villanueva hospital administration declined services due to complexity. Also discussed possibility of
transfer to tertiary center.
Anticipated Discharge: > 48 hours
Subjective/Interval History
-
Date of Service: October 10, 2023
Objective Data
-
Vital Signs:
Vital Signs
Temp Pulse Resp BP Pulse Ox
98.6 F 98 16 132/90 98
10/10/23 07:35 10/10/23 09:33 10/10/23 07:50 10/10/23 09:33 10/10/23 07:50
I&O
10/09/23 10/10/23 10/11/23
06:59 06:59 06:59
Intake Total 2790 / 2790 2980 / 2980
Output Total 350 / 350
Balance 2440 / 2440 2980 / 2980
Physical Exam
-
General: Well Developed and No Apparent Distress
HEENT: Normocephalic, Atraumatic and Moist Mucous Membranes
Respiratory: Clear to Auscultation
Cardiac: Regular Rhythm and S1/S2; Negative Murmur, Rub or Gallop
GI: Soft, Nontender, Nondistended and Normal Bowel Sounds; Negative Organomegaly
Rectal: Deferred by Provider
Musculoskeletal: No Clubbing, No Cyanosis and No Edema
Skin: Negative Rash
Neuro: Nonfocal/Grossly Intact
[2023-10-10] MEDS: DILAUDID 1 MG IV (15:17)
[2023-10-10] MEDS: ADRENALIN 1 MG/10 ML 0.3 MG IV (15:25)
--- NOTE | 2023-10-10 16:41 | PTCARENOTE ---
This RN went to change IV Benadryl bag per order and patient stated she feels she is going to have another attack. PRN Benadryl given prn. However, prn ativan isnt due. Patient now unresponsive having seizure like movements. Pt. coloring is cyanotic
and eyes rolling back to head. Pt diaphoretic. Rapid response called. Patient assisted back to bed.
--- NOTE | 2023-10-10 16:44 | PTCARENOTE ---
Pt. c/o of CP. STOREY made aware. Troponin and EKG ordered.
[2023-10-10 16:49] LABS: Troponin I 0.021 ng/ml
[2023-10-10] MEDS: ZYRTEC 10 MG TUBE (17:38)
[2023-10-10 17:44] LABS: Glucose - Point of Care 136 mg/dl (70-99)
--- NOTE | 2023-10-10 19:47 | PTCARENOTE ---
Received patient from [address] [place] [address]. Oriented patient to room and got patient settled. Report given to night RN.
[2023-10-10] MEDS: COLACE PO (20:14)
[2023-10-10 20:21] LABS: Glucose - Point of Care 114 mg/dl (70-99)
--- NOTE | 2023-10-10 20:42 | PTCARENOTE ---
Pt received from previous RN. Cont Benadryl infusion going. Pt NSR on monitor/ ST. Pt on 3L satting 96%. Pt tolerated all PM meds. AAO, agreeable to care. See nursingnshift report for full head to toe. call sanchez in reach.
--- NOTE | 2023-10-10 22:00 | RR ---
A Rapid Response was called on this patient, please see Rapid Response form.
[2023-10-10] MEDS: ADRENALIN 0.3 MG IV (22:05)
--- NOTE | 2023-10-10 22:05 | PTCARENOTE ---
Pt was witnessed having a dystonic episode at 21:35, which she is known to have. V/S HR 141, sat 95%, BP 140/110(119), RR 31. Pt had PRN IV Benadryl, and sublingual Ativan ordered. medication administered. pt remained dystonic. VICE PRESIDENT LENDING contacted at
21:46. order received for 2mg IV Ativan. medication administered. Pt with no change. VICE PRESIDENT LENDING to floor to assess. Pt remains in dystonic episode. Rapid response called.
[2023-10-10 22:21] LABS: Glucose - Point of Care 107 mg/dl (70-99)
[2023-10-10 22:28] LABS: Hematocrit 36.4 % (37.0-47.0); Mean Corpuscular Hgb 35.3 pg (27.0-31.0); Mean Corpuscular Volume 107.1 fL (81.0-99.0); Mean Platelet Volume 9.8 fL (7.4-10.4); Platelet Count 364 10^3/uL (130-400); Red Cell Dist. Width 17.2 % (11.5-14.5); White Blood Cell Count 18.6 10^3/uL (4.8-10.8)
[2023-10-10 22:39] LABS: INR 1.05; PT 13.5 Sec (11.4-14.6)
[2023-10-10 22:40] LABS: ALT (SGPT) < 10 U/L (0-35); APTT 31.2 Sec (23.4-35.0); AST (SGOT) 22 U/L (14-36); Alkaline Phosphatase 92 U/L (38-126); Blood Urea Nitrogen 8 mg/dl (7-17); Calcium 9.2 mg/dl (8.4-10.2); Carbon Dioxide 22 mmol/L (22-30); Chloride 107 mmol/L (98-107); Estimated Creatinine Clearance > 125 ml/min; Glucose 114 mg/dl (70-99); Sodium 139 mmol/L (135-145); Total Bilirubin 0.3 mg/dl (0.2-1.3); Total Protein 6.8 g/dl (6.3-8.2); eGFR > 60.00
[2023-10-10 22:54] LABS: Troponin I 0.269 ng/ml
[2023-10-10] MEDS: ZOFRAN 4 MG IV (23:15)
[2023-10-11] VITALS (13 sets, daily range): BP systolic 91–125; BP diastolic 56–85
[2023-10-11] MEDS: BACTROBAN 2% OINTMENT 1 APPLIC TOPICAL ×4 (01:04→21:44)
[2023-10-11] MEDS: FEOSOL 325 MG PO ×2 (01:05→21:42)
[2023-10-11] MEDS: ZYRTEC 10 MG TUBE ×3 (01:06→21:43)
[2023-10-11] MEDS: LIORESAL 10 MG TUBE ×4 (01:07→21:43)
[2023-10-11] MEDS: SUBUTEX 2 MG SL ×5 (01:07→21:43)
[2023-10-11] MEDS: GASTROCROM 300 MG PO ×5 (01:08→21:44)
--- NOTE | 2023-10-11 01:15 | W.PN.UPDATE ---
Update Note
Progress Note Update
Per nursing, patient continues to have dystonic episode despite PRN sublingual Ativan and Benadryl. Rx 2mg IV Ativan with minimal improvement, 0.3mg IV Epi given. SURFACE LOGGING SYSTEMS LOGGER called, Rx STAT CBC BMP and Troponin. Soon after Epi administration patient
dystonia appeared to stop. BP stable, HR tachy.
Critical Troponin called in - elevated from0.021 --> 0.269. EKG shows Sinus Tachycardia otherwise normal.
WBC elevated at 18.9
K 3.8-->5
Rx repeat cbc bmp troponins in AM.
Per nursing, later in the shift patient appears to be at baseline since the episode.
--- NOTE | 2023-10-11 01:55 | PTCARENOTE ---
Pt returns to baseline LOC. Pt admits too being tired. Pt Hr now low 100's. Most recent BP 107/80(90). Pt bed saturated with sweat. pt provided bed change and bath. Pt voided large amount of urine 1x via bed bedoya. Pts PM propranolol held rt lower
pressure after dystonic episode. As stated in the BP above.
[2023-10-11] MEDS: INDERAL TUBE (02:36)
[2023-10-11 04:43] LABS: Hematocrit 30.8 % (37.0-47.0); Hemoglobin 9.8 g/dL (12.0-16.0); Mean Corp Hgb Conc. 31.8 g/dL (33.0-37.0); Mean Corpuscular Hgb 35.1 pg (27.0-31.0); Mean Corpuscular Volume 110.4 fL (81.0-99.0); Mean Platelet Volume 9.4 fL (7.4-10.4); Platelet Count 228 10^3/uL (130-400); Red Blood Cell Count 2.79 10^6/uL (4.20-5.40); Red Cell Dist. Width 16.9 % (11.5-14.5); White Blood Cell Count 7.2 10^3/uL (4.8-10.8)
[2023-10-11] MEDS: BENADRYL 250 MG IV ×2 (04:59→21:41)
[2023-10-11 05:11] LABS: Blood Urea Nitrogen 9 mg/dl (7-17); Calcium 8.4 mg/dl (8.4-10.2); Carbon Dioxide 25 mmol/L (22-30); Chloride 109 mmol/L (98-107); Estimated Creatinine Clearance > 125 ml/min; Glucose 137 mg/dl (70-99); Potassium 4.2 mmol/L (3.5-5.1); Sodium 141 mmol/L (135-145); eGFR > 60.00
[2023-10-11 05:25] LABS: Troponin I 0.274 ng/ml
[2023-10-11] MEDS: SINEMET 25-100 1.5 TABLET TUBE ×2 (06:23→09:53)
[2023-10-11] MEDS: PULMICORT 0.5 MG INH ×2 (07:32→19:59)
[2023-10-11] MEDS: LOVENOX 100 MG SC ×2 (09:50→20:16)
[2023-10-11] MEDS: NOVOLOG FLEXPEN-LOW RESISTANCE SC (09:50)
[2023-10-11] MEDS: NOVOLOG FLEXPEN 8 UNITS SC ×3 (09:50→17:11)
[2023-10-11] MEDS: COLACE PO (09:52)
[2023-10-11] MEDS: MIRALAX PO (09:52)
[2023-10-11] MEDS: DELTASONE 10 MG TUBE ×2 (09:54→20:17)
[2023-10-11] MEDS: INDERAL 10 MG TUBE ×3 (09:54→21:43)
[2023-10-11 09:55] LABS: Glucose - Point of Care 89 mg/dl (70-99)
[2023-10-11] MEDS: PEPCID 40 MG IV ×2 (09:56→20:18)
[2023-10-11] MEDS: NSS (PRESERVATIVE FREE) 6 ML IV ×2 (09:56→20:18)
[2023-10-11] MEDS: VITAMIN B1 100 MG TUBE (09:57)
[2023-10-11] MEDS: HYDREA 500 MG PO ×2 (09:57→20:16)
[2023-10-11] MEDS: CLARITIN 10 MG PO (09:57)
[2023-10-11] MEDS: NON-FORMULARY ITEM 80 MG PO (10:01)
[2023-10-11] MEDS: DESENEX/MITRAZOL/ZEASORB 1 APPLIC TOPICAL ×2 (10:01→20:21)
[2023-10-11] MEDS: NON-FORMULARY ITEM 2 UNIT INH (10:02)
[2023-10-11] MEDS: NON-FORMULARY ITEM 1 UNIT PO ×2 (10:03→20:20)
[2023-10-11] MEDS: NON-FORMULARY ITEM 1 MG PO ×2 (10:05→20:21)
[2023-10-11] MEDS: ZADITOR 1 DROP BOTH EYES ×2 (10:05→20:23)
[2023-10-11 11:32] LABS: Troponin I 0.125 ng/ml
[2023-10-11] MEDS: LANTUS 0.15 UNITS SC (12:13)
[2023-10-11] MEDS: NSS 1000 IV ×2 (12:13→21:47)
[2023-10-11] MEDS: ATIVAN 2 MG SL ×2 (12:28→18:20)
[2023-10-11 12:30] LABS: Glucose - Point of Care 160 mg/dl (70-99)
[2023-10-11] MEDS: BENADRYL 25 MG IV ×2 (12:30→18:33)
--- NOTE | 2023-10-11 12:48 | PTCARENOTE ---
pt beginning with muscle contractions and clonic movements at 1225. asking for 2 mg sublingual ativan and 25 mg IV benadryl. meds given, emotional support provided. pox not dropping; 95% on O2 3L, heart rate sinus tachy in low 100's. episode of
rigidity and inabiltiy to speak for 8 mins. no apparent loss of consciousness; pt able to grunt 'yes' and 'no'. now able to speak, stating she is beginning to feel better. diaphoretic. ice bags applied to her neck. pox 99% on 3L, sinus tachy rate
108, b/p 118/73. continuing to monitor
[2023-10-11] MEDS: NOVOLOG FLEXPEN-LOW RESISTANCE 1 UNITS SC ×2 (15:10→17:11)
[2023-10-11] MEDS: SINEMET 25-100 2 TABLET TUBE ×2 (15:12→17:13)
[2023-10-11] MEDS: NON-FORMULARY ITEM 100 MG PO (15:13)
--- NOTE | 2023-10-11 15:41 | W.PN.HOSP.TC ---
Today's Communication/Plan
-
Continue to monitor
Assessment / Plan
Assessment / Plan
Impression:
Gram-negative bacteremia due to chronic infected PICC line.
Fever on admission with no evidence of sepsis (tachycardia likely fever mediated)
Conditions prior to admission:
1. Mast cell activation syndrome.
2. Chronic dystonic reaction.
3. Orthostatic hypotension with postural orthostatic and
tachycardia syndrome.
4. Dopa sensitive dystonia.
5. Steroid-induced diabetes.
6. Prior history of deep venous thrombosis and pulmonary embolism.
7. Chronic pain syndrome.
8. Migraine headaches.
9. Gastroesophageal reflux disease.
10. Benzodiazepine and opiate dependence.
11. Restless legs syndrome.
12. Insomnia.
13. History of vocal cord dysfunction.
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
15. Gastroparesis.
16. 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
17. 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
Plan:
Gram-negative bacteremia secondary to PICC line
PICC line removed
Blood culture with Pseudo fluorescens/putida
Repeated blood cultures negative for 48 hours.
PICC line replaced on 09/23
Antibiotics changed to oral Cipro on 09/22 to complete course through 10/05. ECG with normal QTc.
GJ tube in place with buried bumper.
Replaced by interventional radiology on 09/22
s/p fall overnight 10/03-10/04
imaging negative for bleed or fracture
one more dose IV dilaudid now
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
#Mast Cell Activation Syndrome
#DOPA-Responsive Dystonia
-follows with Dr. Lizabeth Villanueva at [facility] hematology.
- Continue Ativan / Benadryl (pump)
�-cont Gleevac ,steroids
�--Levalbuterol as needed, to do her eyedrops
-Continue carbidopa levodopa
-prednisone continued
-appreciate Heme consult
# dystonia/movement disorder-patient apparently has dystonic features with her mast cell activation syndrome. I could not find in literature as a routine clinical presentation but according to patient apparently this is very unusual feature which
was noted in few other patients . She is on IV Benadryl pump at 15 mg/h at home. Yesterday she had 2 episodes of them requiring as needed Ativan. In view of increased need of breakthrough medication consulted neurology.
-baclofen continued
-sinemet continued
-episodes with vasovagal response when trying to have a BM - start standing miralax and colace BID
# Chronic pain syndrome-on high doses of narcotics including p.o. Dilaudid and Suboxone at home. Again unclear the source of her pain.
#GERD
-famotidine continued
-acipHex continued
-simethicone continued
#iron def anemia
-ferrous sulfate continued
#hxt of tachycardia
-EKG with sinus tachycardia
-propranolol continued
#Chronic Nausea / Esophageal Dysmotility/gastroparesis
#History GJ tube
�- Continue diet as tolerated.
�- Continue G-tube to gravity for chronic nausea.
�- Meds via J-tube.
-Zofran every 8 hours as needed
-Continue Pepcid
-emend continued
- PEG tube site without any signs of cellulitis. CT of the abdomen pelvis shows no subcutaneous collection around the PEG tube and it is in place.
#Steroid-Induced DM-II
�- Continue basal insulin and add SSI coverage as needed.
-lantus 15u daily
-lispro 8u before meals
#Steroid-Induced Osteoporosis
#Chronic Pain Syndrome secondary to the above on chronic opiates
�- Continue buprenorphine 2 mg 4 times daily , Dilaudid 8 mg as needed
�- PT / OT evaluations.
�- Follow-up with usual operations staff specialist security after discharge.
#allergy induced asthma
#chornic hypoxic respiratory failure
-albuterol continued
-budesonide continued
-cetirizine continued
-cromolyn continued
#Migraine Hx
ODT Nurtec as needed
#Restless leg syndrome
-Continue baclofen
#History of DVT / PE
#Takes subcu Lovenox 100 mg twice daily
DNR on admission
Disposition: Discussion with primary card doffer Dr. Ethan Villanueva on 10/09. Discussed possibility of attempting weaning Benadryl drip likely could be done as outpatient. With current family social situation, unfortunately there is no options
for disposition other than home on IV infusion. Possibility of a transfer to [facility] discussed as well, although according to Dr. Villanueva hospital administration declined services due to complexity. Also discussed possibility of
transfer to tertiary center.
Anticipated Discharge: > 48 hours
Subjective/Interval History
-
Date of Service: October 11, 2023
Patient seen and examined at bedside, patient had dystonic episode last night around 1:00 am required sublingual Ativan/Benadryl and also 0.3 mg of IV epinephrine, VISUAL MERCHANDISING ASSOCIATE called, discussed with the patient, patient requested epinephrine to be ordered
as needed, no further dystonic episode during the day.
Objective Data
-
Labs:
Laboratory Results
10/11/23
04:34
WBC 7.2
Hgb 9.8 L
Hct 30.8 L
Plt Count 228 D
Sodium 141
Potassium 4.2
Chloride 109 H
Carbon Dioxide 25
BUN 9
Creatinine 0.4 L
Glucose 137 H
Calcium 8.4
Vital Signs:
Vital Signs
Temp Pulse Resp BP Pulse Ox
98.0 F 83 15 99/72 91
10/11/23 11:30 10/11/23 14:00 10/11/23 14:00 10/11/23 14:00 10/11/23 14:00
I&O
10/10/23 10/11/23 10/12/23
06:59 06:59 06:59
Intake Total 2980 / 2980 240 / 240
Balance 2980 / 2980 240 / 240
Physical Exam
-
General: Appears in Distress and Obese
HEENT: Normocephalic, Atraumatic and Moist Mucous Membranes
Respiratory: Clear to Auscultation
Cardiac: Regular Rhythm and S1/S2; Negative Murmur, Rub or Gallop
GI: Soft, Nontender, Nondistended and Normal Bowel Sounds; Negative Organomegaly
Rectal: Deferred by Provider
Musculoskeletal: No Clubbing, No Cyanosis and No Edema
Skin: Negative Rash
Neuro: Nonfocal/Grossly Intact
[2023-10-11 17:19] LABS: Glucose - Point of Care 151 mg/dl (70-99)
--- NOTE | 2023-10-11 18:15 | PTCARENOTE ---
pt pressed call sanchez 'an episode is starting'. She is rigid with uneven respers. Ativan 2 mg given SL, 25 mg benadryl given IV push. episode of periods of apnea and tonic muscle movements with duration of approx 10 mins. pox remains 97% on 3L O2.
sinus rhythm to sinus tachycardia; 90's-118 bpm. pt diaphoretic and states she was incontinent of urine as the episode began. emotional support provided. bedding changed and hygeine performed. continuing to monitor
[2023-10-11] MEDS: COLACE 100 MG PO (20:17)
[2023-10-11 21:28] LABS: Glucose - Point of Care 163 mg/dl (70-99)
[2023-10-12] VITALS (14 sets, daily range): BP systolic 108–133; BP diastolic 66–95; PULSE 110; O2SAT 100; BMI 36.2
[2023-10-12] MEDS: ZOFRAN 4 MG IV ×3 (00:36→21:41)
[2023-10-12] MEDS: BENADRYL 25 MG IV ×5 (00:44→21:43)
[2023-10-12] MEDS: ATIVAN 2 MG SL ×4 (00:44→21:43)
--- NOTE | 2023-10-12 00:49 | PTCARENOTE ---
pt with mast cell dystonia episode, PRN breakthrough medications administered as ordered. Ice packs provided. HR in the 120's. Body tremors. Pt reports feeling nauseous prior to episode, Zofran administered as ordered. POX 98% on 3LO2 NC. Will
continue to monitor.
[2023-10-12] MEDS: LIORESAL 10 MG TUBE ×3 (05:47→21:29)
[2023-10-12] MEDS: SINEMET 25-100 1.5 TABLET TUBE ×2 (05:48→09:48)
--- NOTE | 2023-10-12 05:54 | PTCARENOTE ---
NO more mast cell episodes the remainder of the night. IVF/ Benadryl gtt infusing as ordered. No issues to report. Vital signs stable. WIll continue to monitor.
[2023-10-12] MEDS: PULMICORT 0.5 MG INH ×2 (07:56→19:14)
--- NOTE | 2023-10-12 08:44 | W.PN.HOSP.TC ---
Today's Communication/Plan
-
placement
Assessment / Plan
Assessment / Plan
Impression:
Gram-negative bacteremia due to chronic infected PICC line.
Fever on admission with no evidence of sepsis (tachycardia likely fever mediated)
Conditions prior to admission:
1. Mast cell activation syndrome.
2. Chronic dystonic reaction.
3. Orthostatic hypotension with postural orthostatic and
tachycardia syndrome.
4. Dopa sensitive dystonia.
5. Steroid-induced diabetes.
6. Prior history of deep venous thrombosis and pulmonary embolism.
7. Chronic pain syndrome.
8. Migraine headaches.
9. Gastroesophageal reflux disease.
10. Benzodiazepine and opiate dependence.
11. Restless legs syndrome.
12. Insomnia.
13. History of vocal cord dysfunction.
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
15. Gastroparesis.
16. 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
17. 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
Plan:
placement has been an issue per pt--RN reports Mother does not want her back....has been here 23 days......
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
PICC line removed and PICC line replaced on 09/23
Repeated blood cultures negative on 09/20 but no other cultures obtained
Finished cipro on 10/06/23 (was on 750mg BID)
GJ tube in place with buried bumper.
Replaced by interventional radiology on 09/22
HX Recurrent Anaphylaxis / Mast Cell Flare Episodes on chronic steroids
Mast Cell Activation Syndrome
DOPA-Responsive Dystonia
-follows with Dr. Lizabeth Villanueva at [facility] hematology.
- Continue Ativan / Benadryl (pump)
�-cont Gleevac ,steroids
�--Levalbuterol as needed, to do her eyedrops
-Continue carbidopa levodopa
-prednisone continued
-appreciate Heme consult
dystonia/movement disorder-patient apparently has dystonic features with her mast cell activation syndrome. I could not find in literature as a routine clinical presentation but according to patient apparently this is very unusual feature which was
noted in few other patients . She is on IV Benadryl pump at 15 mg/h at home. Yesterday she had 2 episodes of them requiring as needed Ativan. In view of increased need of breakthrough medication consulted neurology.
-baclofen continued
-sinemet continued
-episodes with vasovagal response when trying to have a BM - start standing miralax and colace BID
Chronic pain syndrome-on high doses of narcotics including p.o. Dilaudid and Suboxone at home. Again unclear the source of her pain.
s/p fall overnight 10/03-10/04
imaging negative for bleed or fracture
one more dose IV dilaudid now
GERD
-famotidine continued
-acipHex continued
-simethicone continued
iron def anemia
-ferrous sulfate continued
hxt of tachycardia
-EKG with sinus tachycardia
-propranolol continued
Chronic Nausea / Esophageal Dysmotility/gastroparesis
History GJ tube
�- Continue diet as tolerated.
�- Continue G-tube to gravity for chronic nausea.
�- Meds via J-tube.
-Zofran every 8 hours as needed
-Continue Pepcid
-emend continued
- PEG tube site without any signs of cellulitis. CT of the abdomen pelvis shows no subcutaneous collection around the PEG tube and it is in place.
Steroid-Induced DM-II
�- Continue basal insulin and add SSI coverage as needed.
-lantus 15u daily
-lispro 8u before meals
Steroid-Induced Osteoporosis
Chronic Pain Syndrome secondary to the above on chronic opiates
�- Continue buprenorphine 2 mg 4 times daily , Dilaudid 8 mg as needed
�- PT / OT evaluations.
�- Follow-up with usual operations and maintenance specialist after discharge.
allergy induced asthma
chronic hypoxic respiratory failure--on O2
-albuterol continued
-budesonide continued
-cetirizine continued
-cromolyn continued
Migraine Hx
ODT Nurtec as needed
Restless leg syndrome
-Continue baclofen
History of DVT/PE
#Takes subcu Lovenox 100 mg twice daily
DNR on admission
Disposition: Discussion with primary trailer steerer Dr. Ethan Villanueva on 10/09. Discussed possibility of attempting weaning Benadryl drip likely could be done as outpatient. With current family social situation, unfortunately there is no options
for disposition other than home on IV infusion. Possibility of a transfer to [facility] discussed as well, although according to Dr. Villanueva hospital administration declined services due to complexity. Also discussed possibility of
transfer to tertiary center.
Anticipated Discharge: > 48 hours
Subjective/Interval History
-
Date of Service: October 12, 2023
pt pleasant--no c/o
Objective Data
-
Vital Signs:
max temp for 24 hours
10/11/23
23:24
Temp 98.6 F
Vital Signs
Temp Pulse Resp BP Pulse Ox
98.4 F 96 14 117/74 99
10/12/23 03:25 10/12/23 07:59 10/12/23 07:59 10/12/23 02:00 10/12/23 07:59
I&O
10/11/23 10/12/23 10/13/23
06:59 06:59 06:59
Intake Total 240 / 240 3980 / 3980
Output Total 2200 / 2200
Balance 240 / 240 1780 / 1780
Review of Systems
-
All other systems: Reviewed and negative
Physical Exam
-
General: Well Developed, Well Nourished, No Apparent Distress and Morbidly Obese (siegel facies (likely from steroid use))
HEENT: Normocephalic, Atraumatic and Oxygen
Respiratory: Clear to Auscultation; Negative Wheezes, Rales or Rhonchi
Cardiac: Regular Rhythm and S1/S2; Negative Murmur
GI: Soft, Nontender, Nondistended and Normal Bowel Sounds
Musculoskeletal: No Clubbing, No Cyanosis and No Edema
Neuro: Awake and Alert
[2023-10-12] MEDS: FLUSH (NSS) 2 FLUSH IV ×3 (09:00→15:21)
[2023-10-12] MEDS: NSS 1000 IV ×2 (09:03→16:33)
[2023-10-12 09:06] LABS: Glucose - Point of Care 110 mg/dl (70-99)
[2023-10-12] MEDS: GASTROCROM 300 MG PO ×4 (09:43→21:27)
[2023-10-12] MEDS: LOVENOX 100 MG SC (09:45)
[2023-10-12] MEDS: NON-FORMULARY ITEM 1 MG PO ×2 (09:48→21:09)
[2023-10-12] MEDS: SUBUTEX 2 MG SL ×4 (09:49→21:29)
[2023-10-12] MEDS: HYDREA 500 MG PO ×2 (09:50→21:03)
[2023-10-12] MEDS: CLARITIN 10 MG PO (09:51)
[2023-10-12] MEDS: DELTASONE 10 MG TUBE ×2 (09:51→21:02)
[2023-10-12] MEDS: VITAMIN B1 100 MG TUBE (09:51)
[2023-10-12] MEDS: INDERAL 10 MG TUBE ×3 (09:52→21:28)
[2023-10-12] MEDS: DESENEX/MITRAZOL/ZEASORB 1 APPLIC TOPICAL ×2 (09:52→21:03)
[2023-10-12] MEDS: NON-FORMULARY ITEM 80 MG PO (09:53)
[2023-10-12] MEDS: COLACE PO ×3 (09:53→21:16)
[2023-10-12] MEDS: NOVOLOG FLEXPEN-LOW RESISTANCE SC ×2 (09:54→13:29)
[2023-10-12] MEDS: NOVOLOG FLEXPEN 8 UNITS SC ×3 (09:55→17:54)
[2023-10-12] MEDS: BACTROBAN 2% OINTMENT 1 APPLIC TOPICAL ×3 (09:55→21:30)
[2023-10-12] MEDS: NSS (PRESERVATIVE FREE) 6 ML IV ×2 (09:55→21:04)
[2023-10-12] MEDS: PEPCID 40 MG IV ×2 (09:56→21:04)
[2023-10-12] MEDS: LANTUS 0.15 UNITS SC (09:56)
[2023-10-12] MEDS: NON-FORMULARY ITEM 1 UNIT INH (09:59)
[2023-10-12] MEDS: MIRALAX PO (10:00)
[2023-10-12] MEDS: NON-FORMULARY ITEM 1 UNIT PO ×2 (10:00→21:13)
[2023-10-12] MEDS: FLUSH (NSS) 1 FLUSH IV (10:01)
[2023-10-12] MEDS: ZADITOR 1 DROP BOTH EYES ×2 (10:03→21:14)
[2023-10-12 12:29] LABS: Glucose - Point of Care 135 mg/dl (70-99)
[2023-10-12] MEDS: SINEMET 25-100 2 TABLET TUBE ×2 (13:31→17:55)
--- NOTE | 2023-10-12 13:45 | PTCARENOTE ---
Patient had a dystonic episode at this time. IM dose of epi and ativan given at this time. ST with heart rate up to 140's, upper and lower extremities tremulous, patient diaphoretic. Ice packs provided. After 15 minutes patient started to feel
better. Patient said the stress of her mother visiting brought on the episode.
[2023-10-12] MEDS: ADRENALIN 0.3 MG IM (14:52)
[2023-10-12] MEDS: BENADRYL 250 MG IV (15:05)
[2023-10-12] MEDS: ZYRTEC 10 MG TUBE ×2 (16:30→21:28)
[2023-10-12] MEDS: NON-FORMULARY ITEM 200 MG PO (16:31)
[2023-10-12 17:03] LABS: Glucose - Point of Care 160 mg/dl (70-99)
[2023-10-12] MEDS: NOVOLOG FLEXPEN-LOW RESISTANCE 1 UNITS SC (17:53)
[2023-10-12] MEDS: LOVENOX SC (21:03)
[2023-10-12 21:25] LABS: Glucose - Point of Care 120 mg/dl (70-99)
[2023-10-12] MEDS: FEOSOL 325 MG PO (21:27)
--- NOTE | 2023-10-12 23:29 | PTCARENOTE ---
Pt had one of her dystonia episodes and needed PRN medication. Assessment care and vitals as charted.
[2023-10-13] VITALS (13 sets, daily range): BP systolic 95–140; BP diastolic 63–94; BMI 36.2
[2023-10-13] MEDS: NSS 1000 IV ×3 (02:49→21:42)
[2023-10-13] MEDS: LOVENOX SC (04:56)
[2023-10-13] MEDS: BENADRYL 250 MG IV ×2 (06:15→21:42)
[2023-10-13] MEDS: SINEMET 25-100 1.5 TABLET TUBE ×2 (06:16→10:02)
[2023-10-13] MEDS: LIORESAL 10 MG TUBE ×3 (06:16→21:46)
[2023-10-13] MEDS: PULMICORT 0.5 MG INH ×2 (08:17→19:35)
[2023-10-13 08:49] LABS: Glucose - Point of Care 137 mg/dl (70-99)
--- NOTE | 2023-10-13 08:51 | W.PN.HOSP.TC ---
Today's Communication/Plan
-
see bold
Assessment / Plan
Assessment / Plan
Pt seen and examined with nurse Penny Billingsley present at bedside:
Gen: NAD, Awake and alert, appears chronically ill
Eyes: EOMI, PERRLA, no scleral icterus.
Neck: supple.
CV: RRR, +S1/S2, no m/r/g.
Resp: CTAB, no rales, wheezes, or rhonchi.
Abd: +BS, soft, NT, ND
Skin: No rashes.
Neuro: CN 2-12 intact, non-focal.
Psych: Normal mood and affect.
Impression:
Gram-negative bacteremia due to chronic infected PICC line.
Fever on admission with no evidence of sepsis (tachycardia likely fever mediated)
Conditions prior to admission:
1. Mast cell activation syndrome.
2. Chronic dystonic reaction.
3. Orthostatic hypotension with postural orthostatic and
tachycardia syndrome.
4. Dopa sensitive dystonia.
5. Steroid-induced diabetes.
6. Prior history of deep venous thrombosis and pulmonary embolism.
7. Chronic pain syndrome.
8. Migraine headaches.
9. Gastroesophageal reflux disease.
10. Benzodiazepine and opiate dependence.
11. Restless legs syndrome.
12. Insomnia.
13. History of vocal cord dysfunction.
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
15. Gastroparesis.
16. 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
17. 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
Plan:
placement has been an issue per pt--RN reports Mother does not want her back....has been here 24 days......
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
PICC line removed and PICC line replaced on 09/23
Repeated blood cultures negative on 09/20 but no other cultures obtained
Finished cipro on 10/06/23 (was on 750mg BID)
GJ tube in place with buried bumper.
Replaced by interventional radiology on 09/22
HX Recurrent Anaphylaxis / Mast Cell Flare Episodes on chronic steroids
Mast Cell Activation Syndrome
DOPA-Responsive Dystonia
-follows with Dr. Lizabeth Villanueva at [facility] hematology.
- Continue Ativan / Benadryl (pump)
�-cont Gleevac ,steroids
�--Levalbuterol as needed, to do her eyedrops
-Continue carbidopa levodopa
-prednisone continued
-appreciate Heme consult
dystonia/movement disorder-patient apparently has dystonic features with her mast cell activation syndrome. I could not find in literature as a routine clinical presentation but according to patient apparently this is very unusual feature which was
noted in few other patients . She is on IV Benadryl pump at 15 mg/h at home. Yesterday she had 2 episodes of them requiring as needed Ativan. In view of increased need of breakthrough medication consulted neurology.
-baclofen continued
-sinemet continued
-episodes with vasovagal response when trying to have a BM - start standing miralax and colace BID
Chronic pain syndrome-on high doses of narcotics (chronic opioid use with dependence) including p.o. Dilaudid and Suboxone at home. Again unclear the source of her pain.
s/p fall overnight 10/03-10/04
imaging negative for bleed or fracture
one more dose IV dilaudid now
GERD
-famotidine continued
-acipHex continued
-simethicone continued
iron def anemia
-ferrous sulfate continued
hxt of tachycardia
-EKG with sinus tachycardia
-propranolol continued
Chronic Nausea / Esophageal Dysmotility/gastroparesis
History GJ tube
�- Continue diet as tolerated.
�- Continue G-tube to gravity for chronic nausea.
�- Meds via J-tube.
-Zofran every 8 hours as needed
-Continue Pepcid
-emend continued
- PEG tube site without any signs of cellulitis. CT of the abdomen pelvis shows no subcutaneous collection around the PEG tube and it is in place.
Steroid-Induced DM-II
�- Continue basal insulin and add SSI coverage as needed.
-lantus 15u daily
-lispro 8u before meals
Steroid-Induced Osteoporosis
Chronic Pain Syndrome secondary to the above on chronic opiates
�- Continue buprenorphine 2 mg 4 times daily , Dilaudid 8 mg as needed
�- PT / OT evaluations.
�- Follow-up with usual clinical review specialist after discharge.
allergy induced asthma
chronic hypoxic respiratory failure--on O2
-albuterol continued
-budesonide continued
-cetirizine continued
-cromolyn continued
Migraine Hx
ODT Nurtec as needed
Restless leg syndrome
-Continue baclofen
History of DVT/PE
#Takes subcu Lovenox 100 mg twice daily
DNR on admission
Disposition: Discussion with primary contact center specialist Dr. Ethan Villanueva on 10/09. Discussed possibility of attempting weaning Benadryl drip likely could be done as outpatient. With current family social situation, unfortunately there is no options
for disposition other than home on IV infusion. Possibility of a transfer to [facility] discussed as well, although according to Dr. Villanueva hospital administration declined services due to complexity. Also discussed possibility of
transfer to tertiary center ([facility] in [place] declined in the past).
Anticipated Discharge: > 48 hours
Subjective/Interval History
-
Date of Service: October 13, 2023
No new complaints.
Objective Data
-
Vital Signs:
Vital Signs
Temp Pulse Resp BP Pulse Ox
97.4 F 98 22 110/72 98
10/13/23 05:48 10/13/23 08:21 10/13/23 08:21 10/13/23 06:00 10/13/23 08:21
I&O
10/12/23 10/13/23 10/14/23
06:59 06:59 06:59
Intake Total 3980 / 3980 3865 / 3865
Output Total 2200 / 2200 1125 / 1125
Balance 1780 / 1780 2740 / 2740
[2023-10-13] MEDS: GASTROCROM 300 MG PO ×4 (09:26→21:45)
[2023-10-13] MEDS: SUBUTEX 2 MG SL ×4 (09:28→21:48)
[2023-10-13] MEDS: LOVENOX 100 MG SC ×2 (09:52→20:10)
[2023-10-13] MEDS: PEPCID 40 MG IV ×2 (09:52→20:10)
[2023-10-13] MEDS: VITAMIN B1 100 MG TUBE (09:52)
[2023-10-13] MEDS: CLARITIN 10 MG PO (09:52)
[2023-10-13] MEDS: FLUSH (NSS) 2 FLUSH IV ×2 (09:54→17:05)
[2023-10-13] MEDS: INDERAL 10 MG TUBE ×3 (09:55→21:46)
[2023-10-13] MEDS: HYDREA 500 MG PO ×2 (09:55→20:10)
[2023-10-13] MEDS: DELTASONE 10 MG TUBE ×2 (09:55→20:09)
[2023-10-13] MEDS: NSS (PRESERVATIVE FREE) 6 ML IV ×2 (09:56→20:11)
[2023-10-13] MEDS: LANTUS 0.15 UNITS SC (10:00)
[2023-10-13] MEDS: BENADRYL 25 MG IV ×2 (10:01→17:04)
[2023-10-13] MEDS: ATIVAN 2 MG SL ×2 (10:02→17:02)
[2023-10-13] MEDS: ZADITOR 1 DROP BOTH EYES ×2 (10:03→20:14)
[2023-10-13] MEDS: NON-FORMULARY ITEM 1 UNIT INH (10:04)
[2023-10-13] MEDS: MIRALAX PO (10:05)
[2023-10-13] MEDS: NON-FORMULARY ITEM 1 MG PO ×2 (10:05→20:13)
[2023-10-13] MEDS: NON-FORMULARY ITEM 80 MG PO (10:07)
[2023-10-13] MEDS: NOVOLOG FLEXPEN-LOW RESISTANCE SC ×3 (10:08→18:15)
[2023-10-13] MEDS: NOVOLOG FLEXPEN 8 UNITS SC ×3 (10:08→18:15)
[2023-10-13] MEDS: DESENEX/MITRAZOL/ZEASORB 1 APPLIC TOPICAL ×2 (10:09→20:12)
[2023-10-13] MEDS: COLACE PO ×2 (10:09→20:12)
[2023-10-13] MEDS: BACTROBAN 2% OINTMENT 1 APPLIC TOPICAL ×3 (10:09→21:42)
[2023-10-13] MEDS: NON-FORMULARY ITEM 1 UNIT PO ×2 (10:10→20:14)
[2023-10-13 11:28] LABS: Glucose - Point of Care 144 mg/dl (70-99)
[2023-10-13] MEDS: SINEMET 25-100 TUBE (13:13)
[2023-10-13] MEDS: NON-FORMULARY ITEM 200 MG PO (16:23)
[2023-10-13] MEDS: SINEMET 25-100 2 TABLET TUBE ×2 (16:27→20:08)
[2023-10-13 18:13] LABS: Glucose - Point of Care 149 mg/dl (70-99)
--- NOTE | 2023-10-13 19:54 | PTCARENOTE ---
Patient had good day today. No dystonic events today. Vital signs stable. SR on monitor
[2023-10-13] MEDS: ZYRTEC 10 MG TUBE (20:08)
[2023-10-13] MEDS: ZYRTEC TUBE ×2 (20:08→21:49)
[2023-10-13 21:44] LABS: Glucose - Point of Care 145 mg/dl (70-99)
[2023-10-13] MEDS: FEOSOL 325 MG PO (21:48)
[2023-10-14] VITALS (16 sets, daily range): BP systolic 101–125; BP diastolic 61–95; PULSE 101–104; O2SAT 97; BMI 36.1
[2023-10-14] MEDS: ZOFRAN 4 MG IV (00:10)
[2023-10-14] MEDS: BENADRYL 25 MG IV ×3 (00:14→20:18)
[2023-10-14] MEDS: ATIVAN 2 MG SL ×3 (00:14→20:11)
--- NOTE | 2023-10-14 01:51 | PTCARENOTE ---
Pt having one episode after having a emesis episode. Pt believed it to be because of a clog in her Gtube. Gtube flushed and appears to be cleared out. Assessment care and vitals as charted.
[2023-10-14] MEDS: LIORESAL 10 MG TUBE ×3 (06:21→21:38)
[2023-10-14] MEDS: SINEMET 25-100 1.5 TABLET TUBE ×2 (06:21→09:09)
[2023-10-14 07:35] LABS: Glucose - Point of Care 94 mg/dl (70-99)
[2023-10-14] MEDS: NSS 1000 IV ×2 (07:35→16:46)
[2023-10-14] MEDS: PULMICORT 0.5 MG INH ×2 (08:12→19:56)
[2023-10-14] MEDS: NOVOLOG FLEXPEN-LOW RESISTANCE SC ×3 (09:04→16:54)
[2023-10-14] MEDS: SUBUTEX 2 MG SL ×4 (09:05→21:38)
[2023-10-14] MEDS: DELTASONE 10 MG TUBE ×2 (09:05→20:04)
[2023-10-14] MEDS: CLARITIN 10 MG PO (09:05)
[2023-10-14] MEDS: GASTROCROM 300 MG PO ×4 (09:05→21:52)
[2023-10-14] MEDS: NSS (PRESERVATIVE FREE) 6 ML IV ×2 (09:06→20:05)
[2023-10-14] MEDS: PEPCID 40 MG IV ×2 (09:08→20:04)
[2023-10-14] MEDS: INDERAL 10 MG TUBE ×3 (09:08→21:38)
[2023-10-14] MEDS: LOVENOX 100 MG SC ×2 (09:08→20:03)
[2023-10-14] MEDS: VITAMIN B1 100 MG TUBE (09:08)
[2023-10-14] MEDS: HYDREA 500 MG PO ×2 (09:09→20:04)
[2023-10-14] MEDS: COLACE PO (09:09)
[2023-10-14] MEDS: MIRALAX PO (09:10)
[2023-10-14] MEDS: DESENEX/MITRAZOL/ZEASORB 1 APPLIC TOPICAL ×2 (09:10→21:36)
[2023-10-14] MEDS: NON-FORMULARY ITEM 1 UNIT INH (09:13)
[2023-10-14] MEDS: NON-FORMULARY ITEM 1 MG PO ×2 (09:14→20:08)
[2023-10-14] MEDS: NON-FORMULARY ITEM 80 MG PO (09:15)
[2023-10-14] MEDS: NON-FORMULARY ITEM 1 UNIT PO ×2 (09:16→20:07)
[2023-10-14] MEDS: BACTROBAN 2% OINTMENT 1 APPLIC TOPICAL ×3 (09:16→21:37)
[2023-10-14] MEDS: ZADITOR 1 DROP BOTH EYES ×2 (09:18→20:08)
[2023-10-14] MEDS: NOVOLOG FLEXPEN 8 UNITS SC ×3 (10:08→17:56)
[2023-10-14] MEDS: LANTUS 0.15 UNITS SC (10:08)
[2023-10-14] MEDS: BENADRYL 250 MG IV (12:30)
[2023-10-14 12:58] LABS: Glucose - Point of Care 101 mg/dl (70-99)
--- NOTE | 2023-10-14 13:26 | CM ---
Call received by Bobby Pumaradha, Mary's Mother. She stated that she understood from Mary that Mary's CM from [facility] as well as Amber, her Sap Data Architect from [facility] had been in regarding Housing applications. I stated that was
correct, and they had submitted the signed forms but I did make her aware that due to the High need for housing in the community it is not a quick process and could take a long time to secure housing for her. I did make her aware that Mary does
want to come home. She stated that she is emotionally unable to care for her currently due to the many IV medications and narcotics Mary had previously been on at home. She also stated that on the occasion that the private duty nursing agency did
not have a nurse that she needed to assume care of Mary and she felt that Mary would take advantage of her regarding requesting medications and she didn't want to give her anything that would hurt her.I told her our physicians were in discussion
with Dr. Villanueva as well as her physicians at [facility], as they feel Dr. Villanueva or her physicians at [facility] would be better equipped to wean her off of the IV benadryl and some of her other medications, since they are more familiar with her. She stated
that [place] has refused to readmit her. She asked if PT/OT have been seeing Mary and I stated that they have. She also was inquiring if Psychiatry was seeing her, as Mary had been going to outpt therapy for dialectical behavior therapy, and it
seemed to help her. I stated that I would share this information were her Hospitalist . Update to hospitalist and CM.
[2023-10-14] MEDS: SINEMET 25-100 2 TABLET TUBE ×2 (14:07→17:56)
[2023-10-14] MEDS: NON-FORMULARY ITEM 200 MG PO (14:09)
[2023-10-14] MEDS: ZYRTEC 10 MG TUBE ×2 (16:46→21:38)
[2023-10-14 17:01] LABS: Glucose - Point of Care 90 mg/dl (70-99)
--- NOTE | 2023-10-14 18:08 | W.PN.HOSP.TC ---
Today's Communication/Plan
-
Continue IV Benadryl drip.
Monitor for recurrent dystonic reaction
Attempt to avoid IV benzodiazepines and narcotics if possible.
Placement
Assessment / Plan
Assessment / Plan
Impression:
Gram-negative bacteremia due to chronic infected PICC line.
Fever on admission with no evidence of sepsis (tachycardia likely fever mediated)
Conditions prior to admission:
1. Mast cell activation syndrome.
2. Chronic dystonic reaction.
3. Orthostatic hypotension with postural orthostatic and
tachycardia syndrome.
4. Dopa sensitive dystonia.
5. Steroid-induced diabetes.
6. Prior history of deep venous thrombosis and pulmonary embolism.
7. Chronic pain syndrome.
8. Migraine headaches.
9. Gastroesophageal reflux disease.
10. Benzodiazepine and opiate dependence.
11. Restless legs syndrome.
12. Insomnia.
13. History of vocal cord dysfunction.
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
15. Gastroparesis.
16. 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
17. 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
Plan:
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
PICC line removed and PICC line replaced on 09/23
Repeated blood cultures negative on 09/20 but no other cultures obtained
Finished cipro on 10/06/23 (was on 750mg BID)
GJ tube in place with buried bumper.
Replaced by interventional radiology on 09/22
HX Recurrent Anaphylaxis / Mast Cell Flare Episodes on chronic steroids
Mast Cell Activation Syndrome
DOPA-Responsive Dystonia
-follows with Dr. Lizabeth Villanueva at [facility] hematology.
- Continue Ativan / Benadryl (pump)
�-cont Gleevac ,steroids
�--Levalbuterol as needed, to do her eyedrops
-Continue carbidopa levodopa
-prednisone continued
-appreciate Heme consult
dystonia/movement disorder-patient apparently has dystonic features with her mast cell activation syndrome. I could not find in literature as a routine clinical presentation but according to patient apparently this is very unusual feature which was
noted in few other patients . She is on IV Benadryl pump at 15 mg/h at home. Yesterday she had 2 episodes of them requiring as needed Ativan. In view of increased need of breakthrough medication consulted neurology.
-baclofen continued
-sinemet continued
-episodes with vasovagal response when trying to have a BM - start standing miralax and colace BID
Chronic pain syndrome-on high doses of narcotics (chronic opioid use with dependence) including p.o. Dilaudid and Suboxone at home. Again unclear the source of her pain.
s/p fall overnight 10/03-10/04
imaging negative for bleed or fracture
one more dose IV dilaudid now
GERD
-famotidine continued
-acipHex continued
-simethicone continued
iron def anemia
-ferrous sulfate continued
hxt of tachycardia
-EKG with sinus tachycardia
-propranolol continued
Chronic Nausea / Esophageal Dysmotility/gastroparesis
History GJ tube
�- Continue diet as tolerated.
�- Continue G-tube to gravity for chronic nausea.
�- Meds via J-tube.
-Zofran every 8 hours as needed
-Continue Pepcid
-emend continued
- PEG tube site without any signs of cellulitis. CT of the abdomen pelvis shows no subcutaneous collection around the PEG tube and it is in place.
Steroid-Induced DM-II
�- Continue basal insulin and add SSI coverage as needed.
-lantus 15u daily
-lispro 8u before meals
Steroid-Induced Osteoporosis
Chronic Pain Syndrome secondary to the above on chronic opiates
�- Continue buprenorphine 2 mg 4 times daily , Dilaudid 8 mg as needed
�- PT / OT evaluations.
�- Follow-up with usual branch operations specialist after discharge.
allergy induced asthma
chronic hypoxic respiratory failure--on O2
-albuterol continued
-budesonide continued
-cetirizine continued
-cromolyn continued
Migraine Hx
ODT Nurtec as needed
Restless leg syndrome
-Continue baclofen
History of DVT/PE
#Takes subcu Lovenox 100 mg twice daily
DNR on admission
Disposition: Discussion with primary project coach Dr. Ethan Villanueva on 10/09. Discussed possibility of attempting weaning Benadryl drip likely could be done as outpatient. With current family social situation, unfortunately there is no options
for disposition other than home on IV infusion. Possibility of a transfer to [facility] discussed as well, although according to Dr. Villanueva hospital administration declined services due to complexity. Also discussed possibility of
transfer to tertiary center ([facility] in [place] declined in the past).
Anticipated Discharge: 24 - 48 hours
Subjective/Interval History
-
Date of Service: October 14, 2023
Objective Data
-
Vital Signs:
Vital Signs
Temp Pulse Resp BP Pulse Ox
98.0 F 90 12 112/71 92
10/14/23 15:32 10/14/23 12:00 10/14/23 12:00 10/14/23 12:00 10/14/23 12:00
I&O
10/13/23 10/14/23 10/15/23
06:59 06:59 06:59
Intake Total 3865 / 3865 3485 / 3485 0 / 0
Output Total 1125 / 1125 2400 / 2400 1825 / 1825
Balance 2740 / 2740 1085 / 1085 -1825 / -1825
Physical Exam
-
General: Well Developed and No Apparent Distress
HEENT: Normocephalic, Atraumatic and Moist Mucous Membranes
Respiratory: Clear to Auscultation
Cardiac: Regular Rhythm and S1/S2; Negative Murmur, Rub or Gallop
GI: Soft, Nontender, Nondistended and Normal Bowel Sounds; Negative Organomegaly
Rectal: Deferred by Provider
Musculoskeletal: No Clubbing, No Cyanosis and No Edema
Skin: Negative Rash
Neuro: Nonfocal/Grossly Intact
--- NOTE | 2023-10-14 19:54 | PTCARENOTE ---
Pt being transferred to third floor. Report called to receiving RN.
[2023-10-14] MEDS: COLACE 100 MG PO (20:03)
--- NOTE | 2023-10-14 21:00 | PTCARENOTE ---
pt received from WILY Harmon from [facility]. pt transferred over into [address] as well as pts belongings. VSS, call sanchez within reach.
[2023-10-14 21:34] LABS: Glucose - Point of Care 125 mg/dl (70-99)
[2023-10-14] MEDS: FEOSOL 325 MG PO (21:37)
[2023-10-15] MEDS: BENADRYL 25 MG IV ×4 (02:01→20:03)
[2023-10-15] MEDS: ATIVAN 2 MG SL ×4 (02:02→20:02)
[2023-10-15 02:56] VITALS: BP 108/65
[2023-10-15] MEDS: SINEMET 25-100 1.5 TABLET TUBE ×2 (05:54→09:02)
[2023-10-15] MEDS: BENADRYL 250 MG IV ×2 (05:55→22:05)
[2023-10-15] MEDS: LIORESAL 10 MG TUBE ×3 (05:55→21:59)
[2023-10-15] MEDS: PULMICORT 0.5 MG INH ×2 (06:14→19:37)
[2023-10-15 07:50] VITALS: BP 120/69
[2023-10-15] MEDS: VITAMIN B1 100 MG TUBE (07:59)
[2023-10-15] MEDS: SUBUTEX 2 MG SL ×4 (07:59→22:00)
[2023-10-15] MEDS: DELTASONE 10 MG TUBE ×2 (07:59→20:10)
[2023-10-15] MEDS: CLARITIN 10 MG PO (08:00)
[2023-10-15] MEDS: INDERAL 10 MG TUBE ×3 (08:00→21:57)
[2023-10-15] MEDS: GASTROCROM 300 MG PO ×4 (08:00→22:00)
[2023-10-15] MEDS: HYDREA 500 MG PO ×2 (08:00→20:10)
[2023-10-15] MEDS: NSS (PRESERVATIVE FREE) 6 ML IV ×2 (08:01→20:17)
[2023-10-15] MEDS: LOVENOX 100 MG SC ×2 (08:01→20:15)
[2023-10-15] MEDS: PEPCID 40 MG IV ×2 (08:01→20:16)
[2023-10-15] MEDS: NON-FORMULARY ITEM 1 UNIT PO ×3 (08:03→20:15)
[2023-10-15] MEDS: NON-FORMULARY ITEM 1 MG PO ×2 (08:03→20:14)
[2023-10-15] MEDS: NON-FORMULARY ITEM 1 UNIT INH (08:04)
[2023-10-15] MEDS: DESENEX/MITRAZOL/ZEASORB 1 APPLIC TOPICAL ×2 (08:05→20:12)
[2023-10-15] MEDS: ZADITOR 1 DROP BOTH EYES ×2 (08:05→20:18)
[2023-10-15] MEDS: BACTROBAN 2% OINTMENT 1 APPLIC TOPICAL ×3 (08:05→22:13)
[2023-10-15] MEDS: NON-FORMULARY ITEM 80 MG PO (08:08)
[2023-10-15] MEDS: COLACE PO ×2 (08:09→20:11)
[2023-10-15] MEDS: MIRALAX PO (08:09)
[2023-10-15 08:13] LABS: Glucose - Point of Care 118 mg/dl (70-99)
[2023-10-15] MEDS: ZOFRAN 4 MG IV ×2 (08:30→22:06)
[2023-10-15] MEDS: NOVOLOG FLEXPEN 8 UNITS SC ×3 (09:32→17:08)
[2023-10-15] MEDS: LANTUS 0.15 UNITS SC (09:32)
[2023-10-15] MEDS: NOVOLOG FLEXPEN-LOW RESISTANCE SC ×3 (09:33→18:01)
[2023-10-15 11:19] VITALS: BP 119/75
[2023-10-15 11:43] LABS: Glucose - Point of Care 152 mg/dl (70-99)
[2023-10-15] MEDS: NOVOLOG FLEXPEN-LOW RESISTANCE 1 UNITS SC (12:33)
[2023-10-15] MEDS: NOVOLOG FLEXPEN SC (12:43)
[2023-10-15] MEDS: NON-FORMULARY ITEM 200 MG PO (14:34)
[2023-10-15] MEDS: SINEMET 25-100 2 TABLET TUBE ×2 (14:34→17:04)
--- NOTE | 2023-10-15 14:53 | CM ---
Case management following for d/c planning
Chart reviewed
Remains on IV Benadryl drip
Received call from Fide URIBE for pt from [facility] [phone]
Fide cont to follow pt and remains looking for placement for pt
Plan - Anticipate discharge occurring with Resumption of services once a home is found for the patient
At this time Patient's mother is unwilling to accept the patient back home
Pt denied by [facility] - psych hx
[2023-10-15 16:51] LABS: Glucose - Point of Care 101 mg/dl (70-99)
[2023-10-15] MEDS: ZYRTEC 10 MG TUBE ×2 (17:03→21:59)
[2023-10-15] MEDS: NSS 1000 IV (17:06)
[2023-10-15 17:08] VITALS: BP 121/81
--- NOTE | 2023-10-15 17:30 | W.PN.HOSP.TC ---
Today's Communication/Plan
-
Continue current regimen including IV Benadryl drip.
IV fluids ordered.
Assessment / Plan
Assessment / Plan
Impression:
Gram-negative bacteremia due to chronic infected PICC line.
Fever on admission with no evidence of sepsis (tachycardia likely fever mediated)
Conditions prior to admission:
1. Mast cell activation syndrome.
2. Chronic dystonic reaction.
3. Orthostatic hypotension with postural orthostatic and
tachycardia syndrome.
4. Dopa sensitive dystonia.
5. Steroid-induced diabetes.
6. Prior history of deep venous thrombosis and pulmonary embolism.
7. Chronic pain syndrome.
8. Migraine headaches.
9. Gastroesophageal reflux disease.
10. Benzodiazepine and opiate dependence.
11. Restless legs syndrome.
12. Insomnia.
13. History of vocal cord dysfunction.
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
15. Gastroparesis.
16. 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
17. 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
Plan:
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
PICC line removed and PICC line replaced on 09/23
Repeated blood cultures negative on 09/20 but no other cultures obtained
Finished cipro on 10/06/23 (was on 750mg BID)
GJ tube in place with buried bumper.
Replaced by interventional radiology on 09/22
HX Recurrent Anaphylaxis / Mast Cell Flare Episodes on chronic steroids
Mast Cell Activation Syndrome
DOPA-Responsive Dystonia
-follows with Dr. Lizabeth Villanueva at [facility] hematology.
- Continue Ativan / Benadryl (pump)
�-cont Gleevac ,steroids
�--Levalbuterol as needed, to do her eyedrops
-Continue carbidopa levodopa
-prednisone continued
-appreciate Heme consult
dystonia/movement disorder-patient apparently has dystonic features with her mast cell activation syndrome. I could not find in literature as a routine clinical presentation but according to patient apparently this is very unusual feature which was
noted in few other patients . She is on IV Benadryl pump at 15 mg/h at home. Yesterday she had 2 episodes of them requiring as needed Ativan. In view of increased need of breakthrough medication consulted neurology.
-baclofen continued
-sinemet continued
-episodes with vasovagal response when trying to have a BM - start standing miralax and colace BID
Chronic pain syndrome-on high doses of narcotics (chronic opioid use with dependence) including p.o. Dilaudid and Suboxone at home. Again unclear the source of her pain.
s/p fall overnight 10/03-10/04
imaging negative for bleed or fracture
one more dose IV dilaudid now
GERD
-famotidine continued
-acipHex continued
-simethicone continued
iron def anemia
-ferrous sulfate continued
hxt of tachycardia
-EKG with sinus tachycardia
-propranolol continued
Chronic Nausea / Esophageal Dysmotility/gastroparesis
History GJ tube
�- Continue diet as tolerated.
�- Continue G-tube to gravity for chronic nausea.
�- Meds via J-tube.
-Zofran every 8 hours as needed
-Continue Pepcid
-emend continued
- PEG tube site without any signs of cellulitis. CT of the abdomen pelvis shows no subcutaneous collection around the PEG tube and it is in place.
Steroid-Induced DM-II
�- Continue basal insulin and add SSI coverage as needed.
-lantus 15u daily
-lispro 8u before meals
Steroid-Induced Osteoporosis
Chronic Pain Syndrome secondary to the above on chronic opiates
�- Continue buprenorphine 2 mg 4 times daily , Dilaudid 8 mg as needed
�- PT / OT evaluations.
�- Follow-up with usual insurance account specialist after discharge.
allergy induced asthma
chronic hypoxic respiratory failure--on O2
-albuterol continued
-budesonide continued
-cetirizine continued
-cromolyn continued
Migraine Hx
ODT Nurtec as needed
Restless leg syndrome
-Continue baclofen
History of DVT/PE
#Takes subcu Lovenox 100 mg twice daily
DNR on admission
Disposition: Discussion with primary checking clerk Dr. Ethan Villanueva on 10/09. Discussed possibility of attempting weaning Benadryl drip likely could be done as outpatient. With current family social situation, unfortunately there is no options
for disposition other than home on IV infusion. Possibility of a transfer to [facility] discussed as well, although according to Dr. Villanueva hospital administration declined services due to complexity. Also discussed possibility of
transfer to tertiary center ([facility] declined in the past).
Anticipated Discharge: 24 - 48 hours
Subjective/Interval History
-
Date of Service: October 15, 2023
Objective Data
-
Vital Signs:
Vital Signs
Temp Pulse Resp BP Pulse Ox
98.4 F 99 17 121/81 99
10/15/23 17:08 10/15/23 17:08 10/15/23 17:08 10/15/23 17:08 10/15/23 17:08
I&O
10/14/23 10/15/23 10/16/23
06:59 06:59 06:59
Intake Total 3485 / 3485 1755 / 1755
Output Total 2400 / 2400 2625 / 2625
Balance 1085 / 1085 -870 / -870
Physical Exam
-
General: Well Developed and No Apparent Distress
HEENT: Normocephalic, Atraumatic and Moist Mucous Membranes
Respiratory: Clear to Auscultation
Cardiac: Regular Rhythm and S1/S2; Negative Murmur, Rub or Gallop
GI: Soft, Nontender, Nondistended and Normal Bowel Sounds; Negative Organomegaly
Rectal: Deferred by Provider
Musculoskeletal: No Clubbing, No Cyanosis and No Edema
Skin: Negative Rash
Neuro: Nonfocal/Grossly Intact
[2023-10-15 19:30] VITALS: BP 112/69
[2023-10-15 21:11] LABS: Glucose - Point of Care 150 mg/dl (70-99)
[2023-10-15] MEDS: FEOSOL 325 MG PO (21:57)
[2023-10-15 23:20] VITALS: BP 109/75
[2023-10-16] VITALS (7 sets, daily range): BP systolic 99–146; BP diastolic 65–102
[2023-10-16] MEDS: ATIVAN 2 MG SL ×4 (02:23→20:36)
[2023-10-16] MEDS: BENADRYL 25 MG IV ×5 (02:24→23:50)
--- NOTE | 2023-10-16 02:52 | PTCARENOTE ---
patient with dystonic episode. Ativan and Benadryl given, episode lasted approx 15mins. patient able to talk to RN through episode and remained awake and alert.
[2023-10-16] MEDS: SINEMET 25-100 1.5 TABLET TUBE ×2 (05:16→09:33)
[2023-10-16] MEDS: LIORESAL 10 MG TUBE ×3 (05:16→22:03)
[2023-10-16 07:53] LABS: Glucose - Point of Care 121 mg/dl (70-99)
[2023-10-16] MEDS: PULMICORT 0.5 MG INH ×2 (08:29→19:33)
[2023-10-16] MEDS: NON-FORMULARY ITEM 80 MG PO (08:31)
[2023-10-16] MEDS: COLACE 100 MG PO (08:38)
[2023-10-16] MEDS: SUBUTEX 2 MG SL ×4 (08:38→22:03)
[2023-10-16] MEDS: HYDREA 500 MG PO ×2 (08:38→22:03)
[2023-10-16] MEDS: VITAMIN B1 100 MG TUBE (08:39)
[2023-10-16] MEDS: INDERAL 10 MG TUBE ×3 (08:39→22:02)
[2023-10-16] MEDS: DELTASONE 10 MG TUBE ×2 (08:39→22:02)
[2023-10-16] MEDS: LANTUS 0.15 UNITS SC (08:42)
[2023-10-16] MEDS: GASTROCROM 300 MG PO ×4 (08:45→22:03)
[2023-10-16] MEDS: PEPCID 40 MG IV ×2 (08:48→22:01)
[2023-10-16] MEDS: NSS (PRESERVATIVE FREE) 6 ML IV ×2 (08:49→22:00)
[2023-10-16] MEDS: NOVOLOG FLEXPEN-LOW RESISTANCE SC ×3 (08:53→16:51)
[2023-10-16] MEDS: LOVENOX 100 MG SC ×2 (08:54→22:00)
[2023-10-16] MEDS: ZADITOR 1 DROP BOTH EYES ×2 (08:55→22:04)
[2023-10-16] MEDS: MIRALAX PO (08:55)
[2023-10-16] MEDS: NON-FORMULARY ITEM 20 UNIT PO (08:55)
[2023-10-16] MEDS: NON-FORMULARY ITEM 1 MG PO ×2 (08:56→22:09)
[2023-10-16] MEDS: NOVOLOG FLEXPEN 8 UNITS SC ×3 (09:32→17:04)
[2023-10-16] MEDS: CLARITIN 10 MG PO (09:33)
[2023-10-16] MEDS: DESENEX/MITRAZOL/ZEASORB TOPICAL (10:30)
[2023-10-16] MEDS: BACTROBAN 2% OINTMENT TOPICAL (10:30)
[2023-10-16 11:48] LABS: Glucose - Point of Care 145 mg/dl (70-99)
[2023-10-16] MEDS: BENADRYL 250 MG IV (12:19)
[2023-10-16] MEDS: NON-FORMULARY ITEM INH (12:20)
[2023-10-16] MEDS: NSS 1000 IV (12:51)
[2023-10-16] MEDS: SINEMET 25-100 2 TABLET TUBE ×2 (13:52→18:04)
[2023-10-16] MEDS: NON-FORMULARY ITEM 200 MG PO (13:53)
[2023-10-16] MEDS: BACTROBAN 2% OINTMENT 1 APPLIC TOPICAL ×2 (13:55→22:19)
--- NOTE | 2023-10-16 16:38 | W.PN.HOSP.TC ---
Today's Communication/Plan
-
Placement
Assessment / Plan
Assessment / Plan
Impression:
Gram-negative bacteremia due to chronic infected PICC line.
Fever on admission with no evidence of sepsis (tachycardia likely fever mediated)
Conditions prior to admission:
1. Mast cell activation syndrome.
2. Chronic dystonic reaction.
3. Orthostatic hypotension with postural orthostatic and
tachycardia syndrome.
4. Dopa sensitive dystonia.
5. Steroid-induced diabetes.
6. Prior history of deep venous thrombosis and pulmonary embolism.
7. Chronic pain syndrome.
8. Migraine headaches.
9. Gastroesophageal reflux disease.
10. Benzodiazepine and opiate dependence.
11. Restless legs syndrome.
12. Insomnia.
13. History of vocal cord dysfunction.
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
15. Gastroparesis.
16. 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
17. 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
Plan:
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
PICC line removed and PICC line replaced on 09/23
Repeated blood cultures negative on 09/20 but no other cultures obtained
Finished cipro on 10/06/23 (was on 750mg BID)
GJ tube in place with buried bumper.
Replaced by interventional radiology on 09/22
HX Recurrent Anaphylaxis / Mast Cell Flare Episodes on chronic steroids
Mast Cell Activation Syndrome
DOPA-Responsive Dystonia
-follows with Dr. Lizabeth Villanueva at [facility] hematology.
- Continue Ativan / Benadryl (pump)
�-cont Gleevac ,steroids
�--Levalbuterol as needed, to do her eyedrops
-Continue carbidopa levodopa
-prednisone continued
-appreciate Heme consult
dystonia/movement disorder-patient apparently has dystonic features with her mast cell activation syndrome. I could not find in literature as a routine clinical presentation but according to patient apparently this is very unusual feature which was
noted in few other patients . She is on IV Benadryl pump at 15 mg/h at home. Yesterday she had 2 episodes of them requiring as needed Ativan. In view of increased need of breakthrough medication consulted neurology.
-baclofen continued
-sinemet continued
-episodes with vasovagal response when trying to have a BM - start standing miralax and colace BID
Chronic pain syndrome-on high doses of narcotics (chronic opioid use with dependence) including p.o. Dilaudid and Suboxone at home. Again unclear the source of her pain.
s/p fall overnight 10/03-10/04
imaging negative for bleed or fracture
one more dose IV dilaudid now
GERD
-famotidine continued
-acipHex continued
-simethicone continued
iron def anemia
-ferrous sulfate continued
hxt of tachycardia
-EKG with sinus tachycardia
-propranolol continued
Chronic Nausea / Esophageal Dysmotility/gastroparesis
History GJ tube
�- Continue diet as tolerated.
�- Continue G-tube to gravity for chronic nausea.
�- Meds via J-tube.
-Zofran every 8 hours as needed
-Continue Pepcid
-emend continued
- PEG tube site without any signs of cellulitis. CT of the abdomen pelvis shows no subcutaneous collection around the PEG tube and it is in place.
Steroid-Induced DM-II
�- Continue basal insulin and add SSI coverage as needed.
-lantus 15u daily
-lispro 8u before meals
Steroid-Induced Osteoporosis
Chronic Pain Syndrome secondary to the above on chronic opiates
�- Continue buprenorphine 2 mg 4 times daily , Dilaudid 8 mg as needed
�- PT / OT evaluations.
�- Follow-up with usual industrial relations specialist after discharge.
allergy induced asthma
chronic hypoxic respiratory failure--on O2
-albuterol continued
-budesonide continued
-cetirizine continued
-cromolyn continued
Migraine Hx
ODT Nurtec as needed
Restless leg syndrome
-Continue baclofen
History of DVT/PE
#Takes subcu Lovenox 100 mg twice daily
DNR on admission
Disposition: Discussion with primary personal assistant Dr. Ethan Villanueva on 10/09. Discussed possibility of attempting weaning Benadryl drip likely could be done as outpatient. With current family social situation, unfortunately there is no options
for disposition other than home on IV infusion. Possibility of a transfer to [facility] discussed as well, although according to Dr. Villanueva hospital administration declined services due to complexity. Also discussed possibility of
transfer to tertiary center ([facility] in [place] declined in the past).
Anticipated Discharge: Within 24 hours
Subjective/Interval History
-
Date of Service: October 16, 2023
Objective Data
-
Vital Signs:
Vital Signs
Temp Pulse Resp BP Pulse Ox
97.6 F 114 16 128/81 97
10/16/23 15:41 10/16/23 15:41 10/16/23 15:41 10/16/23 15:41 10/16/23 15:41
I&O
10/15/23 10/16/23 10/17/23
06:59 06:59 06:59
Intake Total 1755 / 1755 2540 / 2540
Output Total 2625 / 2625 75 / 75
Balance -870 / -870 2465 / 2465
Physical Exam
-
General: Well Developed and No Apparent Distress
HEENT: Normocephalic, Atraumatic and Moist Mucous Membranes
Respiratory: Clear to Auscultation
Cardiac: Regular Rhythm and S1/S2; Negative Murmur, Rub or Gallop
GI: Soft, Nontender, Nondistended and Normal Bowel Sounds; Negative Organomegaly
Rectal: Deferred by Provider
Musculoskeletal: No Clubbing, No Cyanosis and No Edema
Skin: Negative Rash
Neuro: Nonfocal/Grossly Intact
[2023-10-16 16:43] LABS: Glucose - Point of Care 148 mg/dl (70-99)
[2023-10-16] MEDS: ZYRTEC 10 MG TUBE ×2 (16:59→22:03)
--- NOTE | 2023-10-16 20:30 | PTCARENOTE ---
Patient with dystonic reaction. Bilateral upper extremities tremulous and contracted, eyes rolled back into head, flushed and diaphoretic, stating 'throat is closing'. Upon assessment, patient able to verbalize '25 of Benadryl', + lung sounds
bilaterally, no evidence of stridor. PRN medications given as ordered, see MAR for administration. Vital signs during episode as followed, HR 135 BP 146/102 Resp 20 Pulse ox 100% on 3L. Patient continued episode for ~30 minutes until PRN IM
Epinephrine was administered, patient recovered within minutes, see MAR for admin. Ice packs given. Patient admitted to speaking to sister in the beginning of shift and causing stress that may induce dystonic episode.
[2023-10-16] MEDS: ADRENALIN 0.3 MG IM (21:07)
[2023-10-16] MEDS: ZOFRAN 4 MG IV (21:20)
[2023-10-16 21:22] LABS: Glucose - Point of Care 122 mg/dl (70-99)
[2023-10-16] MEDS: COLACE PO ×2 (22:00→22:02)
[2023-10-16] MEDS: FEOSOL 325 MG PO (22:02)
[2023-10-16] MEDS: NON-FORMULARY ITEM 1 UNIT PO (22:09)
[2023-10-16] MEDS: DESENEX/MITRAZOL/ZEASORB 1 APPLIC TOPICAL (22:19)
[2023-10-17] VITALS (8 sets, daily range): BP systolic 119–128; BP diastolic 69–92; PULSE 115; O2SAT 97
[2023-10-17] MEDS: LIORESAL 10 MG TUBE ×3 (05:13→20:57)
[2023-10-17] MEDS: SINEMET 25-100 1.5 TABLET TUBE ×2 (05:13→10:01)
[2023-10-17] MEDS: BENADRYL 250 MG IV ×2 (05:14→21:14)
[2023-10-17 07:35] LABS: Glucose - Point of Care 139 mg/dl (70-99)
[2023-10-17] MEDS: PULMICORT 0.5 MG INH ×2 (07:42→19:37)
[2023-10-17] MEDS: NOVOLOG FLEXPEN-LOW RESISTANCE SC ×3 (08:18→16:57)
[2023-10-17] MEDS: SUBUTEX 2 MG SL ×4 (08:19→20:59)
[2023-10-17] MEDS: CLARITIN 10 MG PO (08:19)
[2023-10-17] MEDS: HYDREA 500 MG PO ×2 (08:19→20:58)
[2023-10-17] MEDS: INDERAL 10 MG TUBE ×3 (08:19→20:59)
[2023-10-17] MEDS: VITAMIN B1 100 MG TUBE (08:19)
[2023-10-17] MEDS: DELTASONE 10 MG TUBE ×2 (08:20→20:58)
[2023-10-17] MEDS: LOVENOX 100 MG SC ×2 (08:20→21:02)
[2023-10-17] MEDS: COLACE PO ×2 (08:21→20:54)
[2023-10-17] MEDS: PEPCID 40 MG IV ×2 (08:22→21:01)
[2023-10-17] MEDS: MIRALAX PO (08:22)
[2023-10-17] MEDS: NSS (PRESERVATIVE FREE) 6 ML IV ×2 (08:23→21:01)
[2023-10-17] MEDS: ZADITOR 1 DROP BOTH EYES ×2 (08:23→21:32)
[2023-10-17] MEDS: NON-FORMULARY ITEM 80 MG PO (08:29)
[2023-10-17] MEDS: LANTUS 0.15 UNITS SC (08:30)
[2023-10-17] MEDS: NON-FORMULARY ITEM 1 MG PO ×2 (08:30→21:05)
[2023-10-17] MEDS: NON-FORMULARY ITEM 1 UNIT PO ×3 (08:32→21:04)
[2023-10-17] MEDS: NON-FORMULARY ITEM 1 UNIT INH (08:32)
[2023-10-17] MEDS: DESENEX/MITRAZOL/ZEASORB 1 APPLIC TOPICAL ×2 (08:33→20:58)
[2023-10-17] MEDS: BACTROBAN 2% OINTMENT 1 APPLIC TOPICAL ×3 (08:33→21:16)
[2023-10-17] MEDS: NOVOLOG FLEXPEN 8 UNITS SC (08:35)
[2023-10-17] MEDS: ATIVAN 2 MG SL ×3 (10:14→23:22)
[2023-10-17] MEDS: BENADRYL 25 MG IV ×4 (10:15→23:23)
[2023-10-17] MEDS: GASTROCROM PO (10:18)
[2023-10-17] MEDS: NSS 1000 IV (10:32)
[2023-10-17 11:37] LABS: Glucose - Point of Care 126 mg/dl (70-99)
[2023-10-17] MEDS: BENADRYL IV (12:54)
[2023-10-17 12:58] LABS: Glucose - Point of Care 110 mg/dl (70-99)
[2023-10-17] MEDS: NOVOLOG FLEXPEN SC ×2 (12:58→16:57)
[2023-10-17] MEDS: GASTROCROM 300 MG PO ×3 (13:03→21:00)
[2023-10-17] MEDS: SINEMET 25-100 2 TABLET TUBE ×2 (13:51→17:17)
[2023-10-17] MEDS: NON-FORMULARY ITEM 200 MG PO (13:52)
--- NOTE | 2023-10-17 14:52 | W.PN.HOSP.TC ---
Today's Communication/Plan
-
Attempt to wean off IV Benadryl to 14 mg an hour
Discussed with Dr. Kwong
Discussed with patient's mother over the phone.
Assessment / Plan
Assessment / Plan
Impression:
Gram-negative bacteremia due to chronic infected PICC line.
Fever on admission with no evidence of sepsis (tachycardia likely fever mediated)
Conditions prior to admission:
1. Mast cell activation syndrome.
2. Chronic dystonic reaction.
3. Orthostatic hypotension with postural orthostatic and
tachycardia syndrome.
4. Dopa sensitive dystonia.
5. Steroid-induced diabetes.
6. Prior history of deep venous thrombosis and pulmonary embolism.
7. Chronic pain syndrome.
8. Migraine headaches.
9. Gastroesophageal reflux disease.
10. Benzodiazepine and opiate dependence.
11. Restless legs syndrome.
12. Insomnia.
13. History of vocal cord dysfunction.
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
15. Gastroparesis.
16. 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
17. 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
Plan:
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
PICC line removed and PICC line replaced on 09/23
Repeated blood cultures negative on 09/20 but no other cultures obtained
Finished cipro on 10/06/23 (was on 750mg BID)
GJ tube in place with buried bumper.
Replaced by interventional radiology on 09/22
HX Recurrent Anaphylaxis / Mast Cell Flare Episodes on chronic steroids
Mast Cell Activation Syndrome
DOPA-Responsive Dystonia
-follows with Dr. Lizabeth Villanueva at [facility] hematology.
- Continue Ativan
-Has been on Benadryl drip at 15 mg an hour. Discussed with Dr. Mora. Plan is to attempt to wean off by 1 mg every 72 hours. If tolerates reduce time for weaning to every 48 hours.
�-cont Gleevac ,steroids
�--Levalbuterol as needed, to do her eyedrops
-Continue carbidopa levodopa
-prednisone continued
-appreciate Heme consult
dystonia/movement disorder-patient apparently has dystonic features with her mast cell activation syndrome. I could not find in literature as a routine clinical presentation but according to patient apparently this is very unusual feature which was
noted in few other patients . She is on IV Benadryl pump at 15 mg/h at home. Yesterday she had 2 episodes of them requiring as needed Ativan. In view of increased need of breakthrough medication consulted neurology.
-baclofen continued
-sinemet continued
-episodes with vasovagal response when trying to have a BM - start standing miralax and colace BID
Chronic pain syndrome-on high doses of narcotics (chronic opioid use with dependence) including p.o. Dilaudid and Suboxone at home. Again unclear the source of her pain.
s/p fall overnight 10/03-10/04
imaging negative for bleed or fracture
one more dose IV dilaudid now
GERD
-famotidine continued
-acipHex continued
-simethicone continued
iron def anemia
-ferrous sulfate continued
hxt of tachycardia
-EKG with sinus tachycardia
-propranolol continued
Chronic Nausea / Esophageal Dysmotility/gastroparesis
History GJ tube
�- Continue diet as tolerated.
�- Continue G-tube to gravity for chronic nausea.
�- Meds via J-tube.
-Zofran every 8 hours as needed
-Continue Pepcid
-emend continued
- PEG tube site without any signs of cellulitis. CT of the abdomen pelvis shows no subcutaneous collection around the PEG tube and it is in place.
Steroid-Induced DM-II
�- Continue basal insulin and add SSI coverage as needed.
-lantus 15u daily
-lispro 8u before meals
Steroid-Induced Osteoporosis
Chronic Pain Syndrome secondary to the above on chronic opiates
�- Continue buprenorphine 2 mg 4 times daily , Dilaudid 8 mg as needed
�- PT / OT evaluations.
�- Follow-up with usual document control specialist after discharge.
allergy induced asthma
chronic hypoxic respiratory failure--on O2
-albuterol continued
-budesonide continued
-cetirizine continued
-cromolyn continued
Migraine Hx
ODT Nurtec as needed
Restless leg syndrome
-Continue baclofen
History of DVT/PE
#Takes subcu Lovenox 100 mg twice daily
DNR on admission
Disposition: Discussion with primary director of communications Dr. Ethan Villanueva on 10/09. Discussed possibility of attempting weaning Benadryl drip likely could be done as outpatient. With current family social situation, unfortunately there is no options
for disposition other than home on IV infusion. Possibility of a transfer to [facility] discussed as well, although according to Dr. Villanueva hospital administration declined services due to complexity. Also discussed possibility of
transfer to tertiary center ([facility] in [place] declined in the past).
Anticipated Discharge: > 48 hours
Subjective/Interval History
-
Date of Service: October 17, 2023
Objective Data
-
Vital Signs:
Vital Signs
Temp Pulse Resp BP Pulse Ox
98.3 F 97 16 126/73 98
10/17/23 11:19 10/17/23 11:19 10/17/23 11:19 10/17/23 11:19 10/17/23 11:19
I&O
10/16/23 10/17/23 10/18/23
06:59 06:59 06:59
Intake Total 2540 / 2540 1200 / 1200
Output Total 75 / 75
Balance 2465 / 2465 1200 / 1200
Physical Exam
-
General: Well Developed and No Apparent Distress
HEENT: Normocephalic, Atraumatic and Moist Mucous Membranes
Respiratory: Clear to Auscultation
Cardiac: Regular Rhythm and S1/S2; Negative Murmur, Rub or Gallop
GI: Soft, Nontender, Nondistended and Normal Bowel Sounds; Negative Organomegaly
Rectal: Deferred by Provider
Musculoskeletal: No Clubbing, No Cyanosis and No Edema
Skin: Negative Rash
Neuro: Nonfocal/Grossly Intact
--- NOTE | 2023-10-17 16:03 | CM ---
Case management following for d/c planning
Chart reviewed
Remains on IV Benadryl drip - weaning
[facility] from [facility] - looking for housing
Plan - Anticipate discharge occurring with Resumption of services once a home is found for the patient
At this time Patient's mother is unwilling to accept the patient back home
[2023-10-17] MEDS: ZYRTEC 10 MG TUBE ×2 (16:20→20:57)
[2023-10-17] MEDS: ADRENALIN 0.3 MG IM (16:51)
[2023-10-17 16:57] LABS: Glucose - Point of Care 110 mg/dl (70-99)
[2023-10-17] MEDS: ZOFRAN 4 MG IV (17:56)
[2023-10-17] MEDS: DUONEB 3 ML INH (20:15)
[2023-10-17] MEDS: FEOSOL 325 MG PO (21:00)
[2023-10-17 21:43] LABS: Glucose - Point of Care 89 mg/dl (70-99)
[2023-10-18 03:00] VITALS: BP 122/88
[2023-10-18 03:01] LABS: Glucose - Point of Care 116 mg/dl (70-99)
[2023-10-18] MEDS: LIORESAL 10 MG TUBE ×3 (05:13→20:56)
[2023-10-18] MEDS: SINEMET 25-100 1.5 TABLET TUBE ×2 (05:13→10:28)
[2023-10-18 07:00] VITALS: BP 123/78
[2023-10-18] MEDS: DUONEB 3 ML INH ×2 (07:53→20:03)
[2023-10-18] MEDS: PULMICORT 0.5 MG INH ×2 (07:53→20:03)
[2023-10-18 08:05] LABS: Glucose - Point of Care 79 mg/dl (70-99)
[2023-10-18] MEDS: NOVOLOG FLEXPEN-LOW RESISTANCE SC ×3 (08:43→18:18)
[2023-10-18] MEDS: ATIVAN 2 MG SL ×2 (08:46→14:26)
[2023-10-18] MEDS: BENADRYL 25 MG IV ×3 (08:47→18:27)
[2023-10-18] MEDS: ZOFRAN 4 MG IV ×2 (08:49→18:26)
[2023-10-18] MEDS: FLUSH (NSS) 4 FLUSH IV (08:51)
[2023-10-18] MEDS: NOVOLOG FLEXPEN SC (08:59)
[2023-10-18] MEDS: GASTROCROM 300 MG PO ×4 (09:00→21:00)
[2023-10-18] MEDS: COLACE PO ×2 (10:08→21:06)
[2023-10-18] MEDS: MIRALAX PO (10:08)
[2023-10-18] MEDS: LOVENOX 100 MG SC ×2 (10:09→20:49)
[2023-10-18] MEDS: VITAMIN B1 100 MG TUBE (10:10)
[2023-10-18] MEDS: CLARITIN 10 MG PO (10:11)
[2023-10-18] MEDS: DELTASONE 10 MG TUBE ×2 (10:11→20:44)
[2023-10-18] MEDS: SUBUTEX 2 MG SL ×4 (10:11→20:56)
[2023-10-18] MEDS: HYDREA 500 MG PO ×2 (10:12→20:45)
[2023-10-18] MEDS: INDERAL 10 MG TUBE ×3 (10:12→20:57)
[2023-10-18] MEDS: ZADITOR 1 DROP BOTH EYES ×2 (10:12→20:47)
[2023-10-18] MEDS: NSS (PRESERVATIVE FREE) 6 ML IV ×2 (10:13→20:47)
[2023-10-18] MEDS: PEPCID 40 MG IV ×2 (10:13→20:45)
[2023-10-18] MEDS: LANTUS 0.15 UNITS SC (10:18)
[2023-10-18] MEDS: NON-FORMULARY ITEM 80 MG PO (10:44)
[2023-10-18] MEDS: NON-FORMULARY ITEM 1 MG PO ×2 (10:46→20:49)
[2023-10-18] MEDS: NON-FORMULARY ITEM 20 UNIT PO (10:47)
[2023-10-18] MEDS: NON-FORMULARY ITEM 2 UNIT INH (10:48)
[2023-10-18] MEDS: BACTROBAN 2% OINTMENT 1 APPLIC TOPICAL ×3 (10:49→20:48)
[2023-10-18] MEDS: DESENEX/MITRAZOL/ZEASORB 1 APPLIC TOPICAL ×2 (10:49→21:08)
[2023-10-18 11:00] VITALS: BP 137/76
[2023-10-18] MEDS: NSS 1000 IV (12:11)
[2023-10-18 12:26] LABS: Glucose - Point of Care 121 mg/dl (70-99)
[2023-10-18] MEDS: NOVOLOG FLEXPEN 8 UNITS SC ×2 (13:27→18:19)
[2023-10-18] MEDS: SINEMET 25-100 2 TABLET TUBE ×2 (14:08→18:16)
[2023-10-18] MEDS: NON-FORMULARY ITEM 200 MG PO (14:37)
[2023-10-18 15:00] VITALS: BP 126/75
--- NOTE | 2023-10-18 15:34 | W.PN.HOSP.TC ---
Today's Communication/Plan
-
Initiated slow IV Benadryl drip taper. Rate reduced to 14 mg an hour on 10/16.
Plan is to taper slowly by 1 mg every 72 hours.
IV fluids reordered
Assessment / Plan
Assessment / Plan
Impression:
Gram-negative bacteremia due to chronic infected PICC line.
Fever on admission with no evidence of sepsis (tachycardia likely fever mediated)
Conditions prior to admission:
1. Mast cell activation syndrome.
2. Chronic dystonic reaction.
3. Orthostatic hypotension with postural orthostatic and
tachycardia syndrome.
4. Dopa sensitive dystonia.
5. Steroid-induced diabetes.
6. Prior history of deep venous thrombosis and pulmonary embolism.
7. Chronic pain syndrome.
8. Migraine headaches.
9. Gastroesophageal reflux disease.
10. Benzodiazepine and opiate dependence.
11. Restless legs syndrome.
12. Insomnia.
13. History of vocal cord dysfunction.
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
15. Gastroparesis.
16. 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
17. 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
Plan:
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
PICC line removed and PICC line replaced on 09/23
Repeated blood cultures negative on 09/20 but no other cultures obtained
Finished cipro on 10/06/23 (was on 750mg BID)
GJ tube in place with buried bumper.
Replaced by interventional radiology on 09/22
HX Recurrent Anaphylaxis / Mast Cell Flare Episodes on chronic steroids
Mast Cell Activation Syndrome
DOPA-Responsive Dystonia
-follows with Dr. Lizabeth Villanueva at [facility] hematology.
- Continue Ativan
-Has been on Benadryl drip at 15 mg an hour. Discussed with Dr. Mora. Plan is to attempt to wean off by 1 mg every 72 hours. If tolerates reduce time for weaning to every 48 hours.
�-cont Gleevac ,steroids
�--Levalbuterol as needed, to do her eyedrops
-Continue carbidopa levodopa
-prednisone continued
-appreciate Heme consult
dystonia/movement disorder-patient apparently has dystonic features with her mast cell activation syndrome. I could not find in literature as a routine clinical presentation but according to patient apparently this is very unusual feature which was
noted in few other patients . She is on IV Benadryl pump at 15 mg/h at home. Yesterday she had 2 episodes of them requiring as needed Ativan. In view of increased need of breakthrough medication consulted neurology.
-baclofen continued
-sinemet continued
-episodes with vasovagal response when trying to have a BM - start standing miralax and colace BID
Chronic pain syndrome-on high doses of narcotics (chronic opioid use with dependence) including p.o. Dilaudid and Suboxone at home. Again unclear the source of her pain.
s/p fall overnight 10/03-10/04
imaging negative for bleed or fracture
one more dose IV dilaudid now
GERD
-famotidine continued
-acipHex continued
-simethicone continued
iron def anemia
-ferrous sulfate continued
hxt of tachycardia
-EKG with sinus tachycardia
-propranolol continued
Chronic Nausea / Esophageal Dysmotility/gastroparesis
History GJ tube
�- Continue diet as tolerated.
�- Continue G-tube to gravity for chronic nausea.
�- Meds via J-tube.
-Zofran every 8 hours as needed
-Continue Pepcid
-emend continued
- PEG tube site without any signs of cellulitis. CT of the abdomen pelvis shows no subcutaneous collection around the PEG tube and it is in place.
Steroid-Induced DM-II
�- Continue basal insulin and add SSI coverage as needed.
-lantus 15u daily
-lispro 8u before meals
Steroid-Induced Osteoporosis
Chronic Pain Syndrome secondary to the above on chronic opiates
�- Continue buprenorphine 2 mg 4 times daily , Dilaudid 8 mg as needed
�- PT / OT evaluations.
�- Follow-up with usual equipment mechanic specialist after discharge.
allergy induced asthma
chronic hypoxic respiratory failure--on O2
-albuterol continued
-budesonide continued
-cetirizine continued
-cromolyn continued
Migraine Hx
ODT Nurtec as needed
Restless leg syndrome
-Continue baclofen
History of DVT/PE
#Takes subcu Lovenox 100 mg twice daily
DNR on admission
Disposition: Discussion with primary damage assessor Dr. Ethan Villanueva on 10/09. Discussed possibility of attempting weaning Benadryl drip likely could be done as outpatient. With current family social situation, unfortunately there is no options
for disposition other than home on IV infusion. Possibility of a transfer to [facility] discussed as well, although according to Dr. Villanueva hospital administration declined services due to complexity. Also discussed possibility of
transfer to tertiary center ([facility] in [place] declined in the past).
Anticipated Discharge: > 48 hours
Subjective/Interval History
-
Date of Service: October 18, 2023
Objective Data
-
Vital Signs:
Vital Signs
Temp Pulse Resp BP Pulse Ox
98.0 F 96 18 137/76 98
10/18/23 11:00 10/18/23 11:00 10/18/23 11:00 10/18/23 11:00 10/18/23 11:00
I&O
10/17/23 10/18/23 10/19/23
06:59 06:59 06:59
Intake Total 1200 / 1200 2560 / 2560
Output Total 1450 / 1450
Balance 1200 / 1200 1110 / 1110
Physical Exam
-
General: Well Developed and No Apparent Distress
HEENT: Normocephalic, Atraumatic and Moist Mucous Membranes
Respiratory: Clear to Auscultation
Cardiac: Regular Rhythm and S1/S2; Negative Murmur, Rub or Gallop
GI: Soft, Nontender, Nondistended and Normal Bowel Sounds; Negative Organomegaly
Rectal: Deferred by Provider
Musculoskeletal: No Clubbing, No Cyanosis and No Edema
Skin: Negative Rash
Neuro: Nonfocal/Grossly Intact
[2023-10-18] MEDS: BENADRYL 250 MG IV (16:58)
[2023-10-18 17:03] LABS: Glucose - Point of Care 147 mg/dl (70-99)
[2023-10-18] MEDS: ZYRTEC 10 MG TUBE ×2 (18:15→20:57)
[2023-10-18] MEDS: TYLENOL 650 MG PO (18:26)
[2023-10-18 19:00] VITALS: BP 127/76
[2023-10-18] MEDS: NON-FORMULARY ITEM 1 UNIT PO (20:50)
[2023-10-18] MEDS: FEOSOL 325 MG PO (20:57)
[2023-10-18 21:45] LABS: Glucose - Point of Care 144 mg/dl (70-99)
[2023-10-18 23:00] VITALS: BP 121/67
[2023-10-19] MEDS: BENADRYL 25 MG IV ×4 (00:22→23:38)
[2023-10-19] MEDS: ATIVAN 2 MG SL ×4 (00:22→23:38)
[2023-10-19 03:00] VITALS: BP 108/70
[2023-10-19] MEDS: SINEMET 25-100 1.5 TABLET TUBE ×2 (06:16→09:15)
[2023-10-19] MEDS: LIORESAL 10 MG TUBE ×3 (06:16→21:13)
[2023-10-19 07:00] VITALS: BP 127/77
[2023-10-19] MEDS: DUONEB 3 ML INH (07:22)
[2023-10-19] MEDS: PULMICORT 0.5 MG INH ×2 (07:22→20:05)
[2023-10-19 08:09] LABS: Glucose - Point of Care 86 mg/dl (70-99)
[2023-10-19] MEDS: NOVOLOG FLEXPEN-LOW RESISTANCE SC ×2 (08:11→17:32)
[2023-10-19] MEDS: BACTROBAN 2% OINTMENT 1 APPLIC TOPICAL ×3 (09:05→22:04)
[2023-10-19] MEDS: NON-FORMULARY ITEM 1 MG PO ×2 (09:06→21:15)
[2023-10-19] MEDS: NON-FORMULARY ITEM 1 UNIT PO ×2 (09:06→21:15)
[2023-10-19] MEDS: NON-FORMULARY ITEM 80 MG PO (09:06)
[2023-10-19] MEDS: NON-FORMULARY ITEM 1 UNIT INH (09:07)
[2023-10-19] MEDS: MIRALAX PO (09:07)
[2023-10-19] MEDS: SUBUTEX 2 MG SL ×4 (09:08→21:13)
[2023-10-19] MEDS: COLACE PO ×2 (09:08→21:14)
[2023-10-19] MEDS: DELTASONE 10 MG TUBE ×2 (09:09→21:10)
[2023-10-19] MEDS: INDERAL 10 MG TUBE ×3 (09:09→21:11)
[2023-10-19] MEDS: LOVENOX 100 MG SC ×2 (09:13→21:08)
[2023-10-19] MEDS: PEPCID 40 MG IV ×2 (09:13→21:09)
[2023-10-19] MEDS: CLARITIN 10 MG PO (09:14)
[2023-10-19] MEDS: VITAMIN B1 100 MG TUBE (09:14)
[2023-10-19] MEDS: HYDREA 500 MG PO ×2 (09:16→21:11)
[2023-10-19] MEDS: DESENEX/MITRAZOL/ZEASORB 1 APPLIC TOPICAL ×2 (09:17→21:14)
[2023-10-19] MEDS: NSS (PRESERVATIVE FREE) 6 ML IV ×2 (09:18→21:09)
[2023-10-19] MEDS: NOVOLOG FLEXPEN SC ×2 (09:18→14:36)
[2023-10-19] MEDS: ZADITOR 1 DROP BOTH EYES ×2 (09:19→21:10)
[2023-10-19] MEDS: GASTROCROM 300 MG PO ×4 (09:24→21:10)
[2023-10-19] MEDS: LANTUS 0.15 UNITS SC (09:24)
[2023-10-19 11:00] VITALS: BP 99/55
--- NOTE | 2023-10-19 11:24 | W.PN.HOSP.TC ---
Today's Communication/Plan
-
IVF and lower insulin
Assessment / Plan
Assessment / Plan
Impression:
Gram-negative bacteremia due to chronic infected PICC line.
Fever on admission with no evidence of sepsis (tachycardia likely fever mediated)
Conditions prior to admission:
1. Mast cell activation syndrome.
2. Chronic dystonic reaction.
3. Orthostatic hypotension with postural orthostatic and
tachycardia syndrome.
4. Dopa sensitive dystonia.
5. Steroid-induced diabetes.
6. Prior history of deep venous thrombosis and pulmonary embolism.
7. Chronic pain syndrome.
8. Migraine headaches.
9. Gastroesophageal reflux disease.
10. Benzodiazepine and opiate dependence.
11. Restless legs syndrome.
12. Insomnia.
13. History of vocal cord dysfunction.
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
15. Gastroparesis.
16. 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
17. 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
Plan:
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
PICC line removed and PICC line replaced on 09/23
Repeated blood cultures negative on 09/20 but no other cultures obtained
Finished cipro on 10/06/23 (was on 750mg BID)
GJ tube in place with buried bumper.
Replaced by interventional radiology on 09/22
HX Recurrent Anaphylaxis / Mast Cell Flare Episodes on chronic steroids
Mast Cell Activation Syndrome
DOPA-Responsive Dystonia
-follows with Dr. Lizabeth Villanueva at [facility] hematology.
- Continue Ativan
-Has been on Benadryl drip at 15 mg an hour. Discussed with Dr. Mora. Plan is to attempt to wean off by 1 mg every 72 hours. If tolerates reduce time for weaning to every 48 hours--pt states she is on 15mg/hr at home chronically.....also gets
IVF at home chronically.. 1L daily--will order
�-cont Gleevac ,steroids
�--Levalbuterol as needed, to do her eyedrops
-Continue carbidopa levodopa
-prednisone continued
-appreciate Heme consult
dystonia/movement disorder-patient apparently has dystonic features with her mast cell activation syndrome. I could not find in literature as a routine clinical presentation but according to patient apparently this is very unusual feature which was
noted in few other patients . She is on IV Benadryl pump at 15 mg/h at home. Yesterday she had 2 episodes of them requiring as needed Ativan. In view of increased need of breakthrough medication consulted neurology.
-baclofen continued
-sinemet continued
-episodes with vasovagal response when trying to have a BM - start standing miralax and colace BID
Chronic pain syndrome-on high doses of narcotics (chronic opioid use with dependence) including p.o. Dilaudid and Suboxone at home. Again unclear the source of her pain.
s/p fall overnight 10/03-10/04
imaging negative for bleed or fracture
one more dose IV dilaudid now
GERD
-famotidine continued
-acipHex continued
-simethicone continued
iron def anemia
-ferrous sulfate continued
hxt of tachycardia
-EKG with sinus tachycardia
-propranolol continued
Chronic Nausea / Esophageal Dysmotility/gastroparesis
History GJ tube
�- Continue diet as tolerated.
�- Continue G-tube to gravity for chronic nausea.
�- Meds via J-tube.
-Zofran every 8 hours as needed
-Continue Pepcid
-emend continued
- PEG tube site without any signs of cellulitis. CT of the abdomen pelvis shows no subcutaneous collection around the PEG tube and it is in place.
Steroid-Induced DM-II--pt now on prednisone 10 mg BID--sugars running low--will adjust insulin....
�- Continue basal insulin and add SSI coverage as needed.
-lantus 15u daily
-lispro 8u before meals
Steroid-Induced Osteoporosis
Chronic Pain Syndrome secondary to the above on chronic opiates
�- Continue buprenorphine 2 mg 4 times daily , Dilaudid 8 mg as needed
�- PT / OT evaluations.
�- Follow-up with usual police specialist after discharge.
allergy induced asthma
chronic hypoxic respiratory failure--on O2
-albuterol continued
-budesonide continued
-cetirizine continued
-cromolyn continued
Migraine Hx
ODT Nurtec as needed
Restless leg syndrome
-Continue baclofen
History of DVT/PE
#Takes subcu Lovenox 100 mg twice daily
DNR on admission
Disposition: Discussion with primary ocular care technologist Dr. Ethan Villanueva on 10/09. Discussed possibility of attempting weaning Benadryl drip likely could be done as outpatient. With current family social situation, unfortunately there is no options
for disposition other than home on IV infusion. Possibility of a transfer to [facility] discussed as well, although according to Dr. Villanueva hospital administration declined services due to complexity. Also discussed possibility of
transfer to tertiary center ([facility] in [place] declined in the past).
Anticipated Discharge: > 48 hours
Subjective/Interval History
-
Date of Service: October 19, 2023
pt asking for her daily IVF administration--uses at home at baseline
Objective Data
-
Vital Signs:
max temp for 24 hours
10/19/23
07:00
Temp 98.1 F
Vital Signs
Temp Pulse Resp BP Pulse Ox
98.1 F 92 14 127/77 98
10/19/23 07:00 10/19/23 07:26 10/19/23 07:26 10/19/23 09:09 10/19/23 07:26
I&O
10/18/23 10/19/23 10/20/23
06:59 06:59 06:59
Intake Total 2560 / 2560 1860 / 1860
Output Total 1450 / 1450 75 / 75
Balance 1110 / 1110 1785 / 1785
Review of Systems
-
All other systems: Reviewed and negative
Physical Exam
-
General: Well Developed, Well Nourished, No Apparent Distress and Other (siegel facies from steroid administration)
HEENT: Normocephalic, Atraumatic and Oxygen
Respiratory: Clear to Auscultation; Negative Wheezes or Rhonchi
Cardiac: Regular Rhythm, S1/S2 and Tachycardic; Negative Murmur
GI: Soft, Nontender, Nondistended and Normal Bowel Sounds
Musculoskeletal: No Clubbing and No Cyanosis; Negative No Edema (b/l LE edema)
Skin: Warm
Neuro: Awake and Alert
Psych: Calm
[2023-10-19] MEDS: NSS 1000 IV (11:34)
[2023-10-19] MEDS: BENADRYL 250 MG IV (11:36)
[2023-10-19 12:06] LABS: Glucose - Point of Care 165 mg/dl (70-99)
[2023-10-19] MEDS: NOVOLOG FLEXPEN-LOW RESISTANCE 1 UNITS SC (13:15)
[2023-10-19] MEDS: SINEMET 25-100 2 TABLET TUBE ×2 (13:16→17:33)
[2023-10-19] MEDS: NOVOLOG FLEXPEN 5 UNITS SC ×2 (13:16→17:35)
[2023-10-19] MEDS: NON-FORMULARY ITEM 100 MG PO (13:17)
[2023-10-19 15:05] VITALS: BP 157/104
[2023-10-19 16:33] LABS: Glucose - Point of Care 108 mg/dl (70-99)
[2023-10-19] MEDS: ZYRTEC 10 MG TUBE ×2 (17:34→21:13)
[2023-10-19 19:00] VITALS: BP 124/80
[2023-10-19] MEDS: FEOSOL 325 MG PO (21:13)
[2023-10-19] MEDS: NSS IV (22:04)
[2023-10-19 22:05] LABS: Glucose - Point of Care 159 mg/dl (70-99)
[2023-10-19 23:00] VITALS: BP 123/84
[2023-10-20] VITALS (7 sets, daily range): BP systolic 94–137; BP diastolic 61–86
[2023-10-20] MEDS: LIORESAL 10 MG TUBE ×3 (05:14→21:16)
[2023-10-20] MEDS: SINEMET 25-100 1.5 TABLET TUBE ×2 (05:14→09:37)
[2023-10-20] MEDS: BENADRYL 250 MG IV ×2 (05:14→16:45)
[2023-10-20] MEDS: BENADRYL 25 MG IV ×3 (05:31→18:13)
[2023-10-20] MEDS: ZOFRAN 4 MG IV (05:31)
[2023-10-20] MEDS: ATIVAN 2 MG SL ×3 (05:31→18:12)
--- NOTE | 2023-10-20 05:42 | PTCARENOTE ---
Pt had one dystonia attack last night around 2330, prn SL ativan and benadryl given, lasted about 30 mins. Patient was able to talk through most of the attack. Around 530 patient asked for more prn ativan, benadryl and zofran as she felt an attack
coming on. Will continue to monitor.
--- NOTE | 2023-10-20 05:53 | PTCARENOTE ---
On Tuesday 10/17, patient had one episode of dystonia attack. PRN SL ativan and benadryl given. Attack lasted around 15 minutes. Pt was stable afterwards and was able to rest.
[2023-10-20 06:58] LABS: Hematocrit 32.4 % (37.0-47.0); Hemoglobin 10.5 g/dL (12.0-16.0); Mean Corp Hgb Conc. 32.4 g/dL (33.0-37.0); Mean Corpuscular Hgb 35.1 pg (27.0-31.0); Mean Corpuscular Volume 108.4 fL (81.0-99.0); Mean Platelet Volume 9.2 fL (7.4-10.4); Platelet Count 255 10^3/uL (130-400); Red Blood Cell Count 2.99 10^6/uL (4.20-5.40); Red Cell Dist. Width 17.4 % (11.5-14.5); White Blood Cell Count 6.9 10^3/uL (4.8-10.8)
[2023-10-20 07:23] LABS: Blood Urea Nitrogen 5 mg/dl (7-17); Carbon Dioxide 27 mmol/L (22-30); Chloride 107 mmol/L (98-107); Estimated Creatinine Clearance > 125 ml/min; Glucose 122 mg/dl (70-99); Sodium 140 mmol/L (135-145); eGFR > 60.00
[2023-10-20] MEDS: PULMICORT 0.5 MG INH ×2 (07:57→19:15)
[2023-10-20] MEDS: GASTROCROM 300 MG PO ×4 (09:02→21:07)
[2023-10-20] MEDS: NSS 1000 IV ×2 (09:05→21:06)
[2023-10-20] MEDS: MIRALAX PO (09:06)
[2023-10-20] MEDS: LOVENOX 100 MG SC ×2 (09:06→21:15)
[2023-10-20] MEDS: ZADITOR 1 DROP BOTH EYES ×2 (09:07→21:15)
[2023-10-20] MEDS: HYDREA 500 MG PO ×2 (09:08→21:13)
[2023-10-20] MEDS: CLARITIN 10 MG PO (09:08)
[2023-10-20] MEDS: VITAMIN B1 100 MG TUBE (09:09)
[2023-10-20] MEDS: DELTASONE 10 MG TUBE ×2 (09:10→21:12)
[2023-10-20] MEDS: COLACE PO ×2 (09:11→21:12)
[2023-10-20] MEDS: SUBUTEX 2 MG SL ×4 (09:11→21:16)
[2023-10-20] MEDS: PEPCID 40 MG IV ×2 (09:13→21:15)
[2023-10-20] MEDS: NSS (PRESERVATIVE FREE) 6 ML IV ×2 (09:13→21:08)
[2023-10-20] MEDS: INDERAL 10 MG TUBE ×3 (09:14→21:16)
[2023-10-20] MEDS: DESENEX/MITRAZOL/ZEASORB 1 APPLIC TOPICAL ×2 (09:16→21:12)
[2023-10-20] MEDS: NON-FORMULARY ITEM 1 UNIT PO ×2 (09:18→21:14)
[2023-10-20] MEDS: NON-FORMULARY ITEM 1 MG PO ×2 (09:19→21:14)
[2023-10-20] MEDS: NON-FORMULARY ITEM 80 MG PO (09:19)
[2023-10-20] MEDS: NON-FORMULARY ITEM 1 UNIT INH (09:20)
[2023-10-20] MEDS: BACTROBAN 2% OINTMENT 1 APPLIC TOPICAL (09:24)
[2023-10-20] MEDS: NOVOLOG FLEXPEN-LOW RESISTANCE SC ×3 (09:41→18:12)
[2023-10-20] MEDS: NOVOLOG FLEXPEN SC (09:41)
[2023-10-20] MEDS: LANTUS 0.12 UNITS SC (10:00)
[2023-10-20 12:22] LABS: Glucose - Point of Care 130 mg/dl (70-99)
[2023-10-20 13:11] LABS: Glucose - Point of Care 86 mg/dl (70-99)
[2023-10-20] MEDS: NOVOLOG FLEXPEN 5 UNITS SC ×2 (13:44→18:11)
[2023-10-20] MEDS: NON-FORMULARY ITEM 200 MG PO (14:51)
[2023-10-20] MEDS: SINEMET 25-100 2 TABLET TUBE ×2 (14:53→18:14)
--- NOTE | 2023-10-20 16:11 | CM ---
Case management following for d/c planning
Chart reviewed
Attempting to wean Benadryl
[facility] from [facility] following - looking for housing
CM will cont to follow for d/c needs
Plan - Anticipate discharge occurring with Resumption of services once a home is found for the patient
At this time Patient's mother is unwilling to accept the patient back home
[2023-10-20] MEDS: ZYRTEC 10 MG TUBE ×2 (16:58→21:16)
--- NOTE | 2023-10-20 18:12 | W.PN.HOSP.TC ---
Today's Communication/Plan
-
Decrease Benadryl drip to 13 mg an hour
IV fluids reordered
Assessment / Plan
Assessment / Plan
Impression:
Gram-negative bacteremia due to chronic infected PICC line.
Fever on admission with no evidence of sepsis (tachycardia likely fever mediated)
Conditions prior to admission:
1. Mast cell activation syndrome.
2. Chronic dystonic reaction.
3. Orthostatic hypotension with postural orthostatic and
tachycardia syndrome.
4. Dopa sensitive dystonia.
5. Steroid-induced diabetes.
6. Prior history of deep venous thrombosis and pulmonary embolism.
7. Chronic pain syndrome.
8. Migraine headaches.
9. Gastroesophageal reflux disease.
10. Benzodiazepine and opiate dependence.
11. Restless legs syndrome.
12. Insomnia.
13. History of vocal cord dysfunction.
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
15. Gastroparesis.
16. 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
17. 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
Plan:
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
PICC line removed and PICC line replaced on 09/23
Repeated blood cultures negative on 09/20 but no other cultures obtained
Finished cipro on 10/06/23 (was on 750mg BID)
GJ tube in place with buried bumper.
Replaced by interventional radiology on 09/22
HX Recurrent Anaphylaxis / Mast Cell Flare Episodes on chronic steroids
Mast Cell Activation Syndrome
DOPA-Responsive Dystonia
-follows with Dr. Lizabeth Villanueva at [facility] hematology.
- Continue Ativan
�-cont Gleevac ,steroids
�--Levalbuterol as needed, to do her eyedrops
-Continue carbidopa levodopa
-prednisone continued
-Outpatient IV Benadryl drip at 15 milligram an hour upon presentation. As discussed with primary undertaker helper Dr. Mora plan is to slowly taper.
dystonia/movement disorder-patient apparently has dystonic features with her mast cell activation syndrome. I could not find in literature as a routine clinical presentation but according to patient apparently this is very unusual feature which was
noted in few other patients . She is on IV Benadryl pump at 15 mg/h at home. Yesterday she had 2 episodes of them requiring as needed Ativan. In view of increased need of breakthrough medication consulted neurology.
-baclofen continued
-sinemet continued
-episodes with vasovagal response when trying to have a BM - start standing miralax and colace BID
Chronic pain syndrome-on high doses of narcotics (chronic opioid use with dependence) including p.o. Dilaudid and Suboxone at home. Again unclear the source of her pain.
s/p fall overnight 10/03-10/04
imaging negative for bleed or fracture
one more dose IV dilaudid now
GERD
-famotidine continued
-acipHex continued
-simethicone continued
iron def anemia
-ferrous sulfate continued
hxt of tachycardia
-EKG with sinus tachycardia
-propranolol continued
Chronic Nausea / Esophageal Dysmotility/gastroparesis
History GJ tube
�- Continue diet as tolerated.
�- Continue G-tube to gravity for chronic nausea.
�- Meds via J-tube.
-Zofran every 8 hours as needed
-Continue Pepcid
-emend continued
- PEG tube site without any signs of cellulitis. CT of the abdomen pelvis shows no subcutaneous collection around the PEG tube and it is in place.
Steroid-Induced DM-II--pt now on prednisone 10 mg BID--sugars running low--will adjust insulin....
�- Continue basal insulin and add SSI coverage as needed.
-lantus 15u daily
-lispro 8u before meals
Steroid-Induced Osteoporosis
Chronic Pain Syndrome secondary to the above on chronic opiates
�- Continue buprenorphine 2 mg 4 times daily , Dilaudid 8 mg as needed
�- PT / OT evaluations.
�- Follow-up with usual sports marketing specialist after discharge.
allergy induced asthma
chronic hypoxic respiratory failure--on O2
-albuterol continued
-budesonide continued
-cetirizine continued
-cromolyn continued
Migraine Hx
ODT Nurtec as needed
Restless leg syndrome
-Continue baclofen
History of DVT/PE
#Takes subcu Lovenox 100 mg twice daily
DNR on admission
Disposition: Discussion with primary undertaker helper Dr. Ethan Villanueva on 10/09. Discussed possibility of attempting weaning Benadryl drip likely could be done as outpatient. With current family social situation, unfortunately there is no options
for disposition other than home on IV infusion. Possibility of a transfer to [facility] discussed as well, although according to Dr. Villanueva hospital administration declined services due to complexity. Also discussed possibility of
transfer to tertiary center ([facility] in [place] declined in the past).
Anticipated Discharge: 24 - 48 hours
Subjective/Interval History
-
Date of Service: October 20, 2023
Objective Data
-
Labs:
Laboratory Results
10/20/23
06:32
WBC 6.9
Hgb 10.5 L
Hct 32.4 L
Plt Count 255
Sodium 140
Potassium 4.0
Chloride 107
Carbon Dioxide 27
BUN 5 L
Creatinine 0.4 L
Glucose 122 H
Calcium 9.0
Vital Signs:
Vital Signs
Temp Pulse Resp BP Pulse Ox
99.0 F 106 18 129/86 99
10/20/23 11:40 10/20/23 16:50 10/20/23 11:40 10/20/23 16:50 10/20/23 11:40
I&O
10/19/23 10/20/23 10/21/23
06:59 06:59 06:59
Intake Total 1860 / 1860 2250 / 2250
Output Total 75 / 75 175 / 175
Balance 1784 / 1782074 / 2074
Physical Exam
-
General: Well Developed and No Apparent Distress
HEENT: Normocephalic, Atraumatic and Moist Mucous Membranes
Respiratory: Clear to Auscultation
Cardiac: Regular Rhythm and S1/S2; Negative Murmur, Rub or Gallop
GI: Soft, Nontender, Nondistended and Normal Bowel Sounds; Negative Organomegaly
Rectal: Deferred by Provider
Musculoskeletal: No Clubbing, No Cyanosis and No Edema
Skin: Negative Rash
Neuro: Nonfocal/Grossly Intact
--- NOTE | 2023-10-20 19:27 | PTCARENOTE ---
Pt had dystonic episodes 2x today 12:20pm and 16:05. SL Ativan and Benadryl IV given. Epi not needed. Pt calm throughout and returned to baseline both times after approx 15-2o minutes.
[2023-10-20] MEDS: FEOSOL 325 MG PO (21:15)
[2023-10-20 21:25] LABS: Glucose - Point of Care 121 mg/dl (70-99)
[2023-10-20 21:47] LABS: Glucose - Point of Care 149 mg/dl (70-99)
[2023-10-21] MEDS: BENADRYL 25 MG IV ×4 (00:06→23:12)
[2023-10-21] MEDS: ATIVAN 2 MG SL ×3 (00:07→23:11)
[2023-10-21 03:40] VITALS: BP 125/80
[2023-10-21] MEDS: LIORESAL 10 MG TUBE ×3 (05:38→20:56)
[2023-10-21] MEDS: SINEMET 25-100 1.5 TABLET TUBE ×2 (05:39→09:57)
[2023-10-21] MEDS: PULMICORT 0.5 MG INH ×2 (06:17→19:14)
[2023-10-21 07:07] LABS: Glucose - Point of Care 125 mg/dl (70-99)
[2023-10-21 07:37] VITALS: BP 126/78
[2023-10-21] MEDS: LANTUS 0.12 UNITS SC (08:20)
[2023-10-21] MEDS: LOVENOX 100 MG SC ×2 (08:20→20:37)
[2023-10-21] MEDS: CLARITIN 10 MG PO (08:21)
[2023-10-21] MEDS: GASTROCROM 300 MG PO ×4 (08:21→20:50)
[2023-10-21] MEDS: SUBUTEX 2 MG SL ×4 (08:21→22:11)
[2023-10-21] MEDS: PEPCID 40 MG IV ×2 (08:22→20:30)
[2023-10-21] MEDS: HYDREA 500 MG PO ×2 (08:22→20:28)
[2023-10-21] MEDS: DELTASONE 10 MG TUBE ×2 (08:22→20:24)
[2023-10-21] MEDS: NSS (PRESERVATIVE FREE) 6 ML IV ×2 (08:23→20:34)
[2023-10-21] MEDS: NOVOLOG FLEXPEN-LOW RESISTANCE SC ×2 (08:23→12:13)
[2023-10-21] MEDS: NOVOLOG FLEXPEN 5 UNITS SC ×3 (08:24→17:20)
[2023-10-21] MEDS: ZADITOR 1 DROP BOTH EYES ×2 (08:25→20:32)
[2023-10-21] MEDS: COLACE PO ×2 (08:27→20:24)
[2023-10-21] MEDS: VITAMIN B1 100 MG TUBE (08:27)
[2023-10-21] MEDS: MIRALAX PO (08:28)
[2023-10-21] MEDS: INDERAL 10 MG TUBE ×3 (08:33→20:57)
[2023-10-21] MEDS: DESENEX/MITRAZOL/ZEASORB 1 APPLIC TOPICAL ×2 (08:35→20:49)
[2023-10-21] MEDS: NON-FORMULARY ITEM 80 MG PO (08:35)
[2023-10-21] MEDS: NON-FORMULARY ITEM 1 MG PO ×2 (08:38→21:04)
[2023-10-21] MEDS: NON-FORMULARY ITEM 1 UNIT INH (08:39)
[2023-10-21] MEDS: NON-FORMULARY ITEM 1 UNIT PO ×3 (08:39→21:04)
[2023-10-21] MEDS: BENADRYL 250 MG IV (10:53)
[2023-10-21] MEDS: TYLENOL 650 MG PO (11:15)
[2023-10-21 11:22] VITALS: BP 111/69
[2023-10-21 11:32] LABS: Glucose - Point of Care 120 mg/dl (70-99)
[2023-10-21] MEDS: ZOFRAN 4 MG IV (12:16)
[2023-10-21] MEDS: NSS 1000 IV (14:00)
[2023-10-21] MEDS: SINEMET 25-100 2 TABLET TUBE ×2 (14:01→17:19)
[2023-10-21] MEDS: NON-FORMULARY ITEM 200 MG PO (14:01)
[2023-10-21] MEDS: ADRENALIN 0.3 MG IM (15:03)
[2023-10-21] MEDS: DUONEB 3 ML INH ×2 (15:15→19:15)
[2023-10-21] MEDS: ATIVAN 2 MG IV (15:39)
[2023-10-21] MEDS: NSS (PRESERVATIVE FREE) 1 ML IV (15:39)
[2023-10-21 16:15] VITALS: BP 118/79
[2023-10-21 16:39] LABS: Glucose - Point of Care 202 mg/dl (70-99)
--- NOTE | 2023-10-21 16:39 | W.PN.HOSP.TC ---
Today's Communication/Plan
-
Another dystonic episode noted today improved with additional dose of IV lorazepam.
Continue attempt to wean off IV Benadryl drip slowly.
Continue IV fluids.
Assessment / Plan
Assessment / Plan
Impression:
Gram-negative bacteremia due to chronic infected PICC line.
Fever on admission with no evidence of sepsis (tachycardia likely fever mediated)
Conditions prior to admission:
1. Mast cell activation syndrome.
2. Chronic dystonic reaction.
3. Orthostatic hypotension with postural orthostatic and
tachycardia syndrome.
4. Dopa sensitive dystonia.
5. Steroid-induced diabetes.
6. Prior history of deep venous thrombosis and pulmonary embolism.
7. Chronic pain syndrome.
8. Migraine headaches.
9. Gastroesophageal reflux disease.
10. Benzodiazepine and opiate dependence.
11. Restless legs syndrome.
12. Insomnia.
13. History of vocal cord dysfunction.
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
15. Gastroparesis.
16. 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
17. 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
Plan:
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
PICC line removed and PICC line replaced on 09/23
Repeated blood cultures negative on 09/20 but no other cultures obtained
Finished cipro on 10/06/23 (was on 750mg BID)
GJ tube in place with buried bumper.
Replaced by interventional radiology on 09/22
HX Recurrent Anaphylaxis / Mast Cell Flare Episodes on chronic steroids
Mast Cell Activation Syndrome
DOPA-Responsive Dystonia
-follows with Dr. Lizabeth Villanueva at [facility] hematology.
- Continue Ativan
�-cont Gleevac ,steroids
�--Levalbuterol as needed, to do her eyedrops
-Continue carbidopa levodopa
-prednisone continued
-Outpatient IV Benadryl drip at 15 milligram an hour upon presentation. As discussed with primary child welfare caseworker Dr. Mora plan is to slowly taper.
dystonia/movement disorder-patient apparently has dystonic features with her mast cell activation syndrome. I could not find in literature as a routine clinical presentation but according to patient apparently this is very unusual feature which was
noted in few other patients . She is on IV Benadryl pump at 15 mg/h at home. Yesterday she had 2 episodes of them requiring as needed Ativan. In view of increased need of breakthrough medication consulted neurology.
-baclofen continued
-sinemet continued
-episodes with vasovagal response when trying to have a BM - start standing miralax and colace BID
Chronic pain syndrome-on high doses of narcotics (chronic opioid use with dependence) including p.o. Dilaudid and Suboxone at home. Again unclear the source of her pain.
s/p fall overnight 10/03-10/04
imaging negative for bleed or fracture
one more dose IV dilaudid now
GERD
-famotidine continued
-acipHex continued
-simethicone continued
iron def anemia
-ferrous sulfate continued
hxt of tachycardia
-EKG with sinus tachycardia
-propranolol continued
Chronic Nausea / Esophageal Dysmotility/gastroparesis
History GJ tube
�- Continue diet as tolerated.
�- Continue G-tube to gravity for chronic nausea.
�- Meds via J-tube.
-Zofran every 8 hours as needed
-Continue Pepcid
-emend continued
- PEG tube site without any signs of cellulitis. CT of the abdomen pelvis shows no subcutaneous collection around the PEG tube and it is in place.
Steroid-Induced DM-II--pt now on prednisone 10 mg BID--sugars running low--will adjust insulin....
�- Continue basal insulin and add SSI coverage as needed.
-lantus 15u daily
-lispro 8u before meals
Steroid-Induced Osteoporosis
Chronic Pain Syndrome secondary to the above on chronic opiates
�- Continue buprenorphine 2 mg 4 times daily , Dilaudid 8 mg as needed
�- PT / OT evaluations.
�- Follow-up with usual application packaging specialist after discharge.
allergy induced asthma
chronic hypoxic respiratory failure--on O2
-albuterol continued
-budesonide continued
-cetirizine continued
-cromolyn continued
Migraine Hx
ODT Nurtec as needed
Restless leg syndrome
-Continue baclofen
History of DVT/PE
#Takes subcu Lovenox 100 mg twice daily
DNR on admission
Disposition: Discussion with primary child welfare caseworker Dr. Ethan Villanueva on 10/09. Discussed possibility of attempting weaning Benadryl drip likely could be done as outpatient. With current family social situation, unfortunately there is no options
for disposition other than home on IV infusion. Possibility of a transfer to [facility] discussed as well, although according to Dr. Villanueva hospital administration declined services due to complexity. Also discussed possibility of
transfer to tertiary center ([facility] in [place] declined in the past).
Anticipated Discharge: > 48 hours
Subjective/Interval History
-
Date of Service: October 21, 2023
Objective Data
-
Vital Signs:
Vital Signs
Temp Pulse Resp BP Pulse Ox
98.1 F 110 17 118/79 96
10/21/23 16:15 10/21/23 16:15 10/21/23 16:15 10/21/23 16:15 10/21/23 16:15
I&O
10/20/23 10/21/23 10/22/23
06:59 06:59 06:59
Intake Total 2250 / 2250 1520 / 1520
Output Total 175 / 175
Balance 2074 / 2074 1520 / 1520
Physical Exam
-
General: Well Developed, Well Nourished, No Apparent Distress and Other (siegel facies from steroid administration)
HEENT: Normocephalic, Atraumatic and Oxygen
Respiratory: Clear to Auscultation; Negative Wheezes or Rhonchi
Cardiac: Regular Rhythm, S1/S2 and Tachycardic; Negative Murmur
GI: Soft, Nontender, Nondistended and Normal Bowel Sounds
Musculoskeletal: No Clubbing and No Cyanosis; Negative No Edema (b/l LE edema)
Skin: Warm
Neuro: Sedated
Psych: Calm
[2023-10-21] MEDS: ZYRTEC 10 MG TUBE ×2 (17:18→20:55)
[2023-10-21] MEDS: NOVOLOG FLEXPEN-LOW RESISTANCE 2 UNITS SC (17:21)
[2023-10-21 20:05] VITALS: BP 96/71
[2023-10-21] MEDS: FEOSOL 325 MG PO ×2 (20:50→20:54)
[2023-10-21 21:03] LABS: Glucose - Point of Care 124 mg/dl (70-99)
[2023-10-21 23:41] VITALS: BP 119/82
--- NOTE | 2023-10-22 | PTCARENOTE ---
pt w/ dystonic episode. no resp distress noted but tremulous in extremities. SL Ativan and IV Benadryl given at 2311. pt now resting comfortably and at baseline mentation. will monitor.
[2023-10-22 03:49] VITALS: BP 117/72
[2023-10-22] MEDS: SINEMET 25-100 1.5 TABLET TUBE ×2 (05:37→09:55)
[2023-10-22] MEDS: LIORESAL 10 MG TUBE ×3 (05:38→22:00)
[2023-10-22] MEDS: BENADRYL 250 MG IV (05:40)
[2023-10-22] MEDS: PULMICORT 0.5 MG INH ×2 (07:50→19:18)
[2023-10-22 07:53] LABS: Glucose - Point of Care 99 mg/dl (70-99)
[2023-10-22 08:09] VITALS: BP 122/74
[2023-10-22] MEDS: LOVENOX 100 MG SC ×2 (08:38→20:11)
[2023-10-22] MEDS: CLARITIN 10 MG PO (08:39)
[2023-10-22] MEDS: MIRALAX 17 GRAMS PO (08:39)
[2023-10-22] MEDS: ATIVAN SL (08:39)
[2023-10-22] MEDS: GASTROCROM 300 MG PO ×4 (08:39→22:00)
[2023-10-22] MEDS: SUBUTEX 2 MG SL ×4 (08:39→21:59)
[2023-10-22] MEDS: VITAMIN B1 100 MG TUBE (08:39)
[2023-10-22] MEDS: DELTASONE 10 MG TUBE ×2 (08:40→21:59)
[2023-10-22] MEDS: HYDREA 500 MG PO ×2 (08:40→20:09)
[2023-10-22] MEDS: COLACE 100 MG PO (08:40)
[2023-10-22] MEDS: NSS (PRESERVATIVE FREE) 6 ML IV ×2 (08:41→20:10)
[2023-10-22] MEDS: PEPCID 40 MG IV ×2 (08:41→20:10)
[2023-10-22] MEDS: INDERAL 10 MG TUBE ×2 (08:43→22:00)
[2023-10-22] MEDS: DESENEX/MITRAZOL/ZEASORB 1 APPLIC TOPICAL ×2 (08:43→20:09)
[2023-10-22] MEDS: NON-FORMULARY ITEM 80 MG PO (08:47)
[2023-10-22] MEDS: NON-FORMULARY ITEM 1 UNIT PO ×2 (08:47→20:11)
[2023-10-22] MEDS: NON-FORMULARY ITEM 1 MG PO ×2 (08:47→20:11)
[2023-10-22] MEDS: NON-FORMULARY ITEM 2 UNIT INH (08:48)
[2023-10-22] MEDS: TYLENOL 650 MG PO ×2 (08:48→18:08)
[2023-10-22] MEDS: ZADITOR 1 DROP BOTH EYES ×2 (08:48→20:09)
[2023-10-22] MEDS: NOVOLOG FLEXPEN-LOW RESISTANCE SC ×3 (08:49→18:00)
[2023-10-22] MEDS: NOVOLOG FLEXPEN 5 UNITS SC ×3 (08:50→18:00)
[2023-10-22] MEDS: LANTUS 0.12 UNITS SC (08:55)
[2023-10-22] MEDS: ZOFRAN 4 MG IV ×2 (08:56→20:31)
[2023-10-22] MEDS: ATIVAN 2 MG SL ×3 (09:00→23:35)
[2023-10-22] MEDS: BENADRYL 25 MG IV ×4 (09:06→23:36)
--- NOTE | 2023-10-22 09:17 | PTCARENOTE ---
Pt c/o feeing an aura of dystonia episode, feeling nauseated, cramping of hands, feeling hot and slightly dizzy. Ativan, Benadryl and Zofran given, see MAR. Emotional support provided. Will continue to monitor. NSR on monitor, VSS.
[2023-10-22 10:46] VITALS: BP 110/69
[2023-10-22 11:54] LABS: Glucose - Point of Care 111 mg/dl (70-99)
[2023-10-22] MEDS: NSS 1000 IV (12:38)
[2023-10-22] MEDS: SINEMET 25-100 2 TABLET TUBE ×2 (14:23→18:01)
[2023-10-22] MEDS: NON-FORMULARY ITEM 200 MG PO (14:23)
[2023-10-22 14:55] VITALS: BP 128/84
[2023-10-22] MEDS: DUONEB 3 ML INH ×2 (16:01→19:19)
--- NOTE | 2023-10-22 16:41 | W.PN.HOSP.TC ---
Today's Communication/Plan
-
And nausea with dystonic episode today requiring additional IV lorazepam dose.
IV Benadryl drip remains at 13 mg an hour
Assessment / Plan
Assessment / Plan
Impression:
Gram-negative bacteremia due to chronic infected PICC line.
Fever on admission with no evidence of sepsis (tachycardia likely fever mediated)
Conditions prior to admission:
1. Mast cell activation syndrome.
2. Chronic dystonic reaction.
3. Orthostatic hypotension with postural orthostatic and
tachycardia syndrome.
4. Dopa sensitive dystonia.
5. Steroid-induced diabetes.
6. Prior history of deep venous thrombosis and pulmonary embolism.
7. Chronic pain syndrome.
8. Migraine headaches.
9. Gastroesophageal reflux disease.
10. Benzodiazepine and opiate dependence.
11. Restless legs syndrome.
12. Insomnia.
13. History of vocal cord dysfunction.
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
15. Gastroparesis.
16. 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
17. 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
Plan:
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
PICC line removed and PICC line replaced on 09/23
Repeated blood cultures negative on 09/20 but no other cultures obtained
Finished cipro on 10/06/23 (was on 750mg BID)
GJ tube in place with buried bumper.
Replaced by interventional radiology on 09/22
HX Recurrent Anaphylaxis / Mast Cell Flare Episodes on chronic steroids
Mast Cell Activation Syndrome
DOPA-Responsive Dystonia
-follows with Dr. Lizabeth Villanueva at [facility] hematology.
- Continue Ativan
�-cont Gleevac ,steroids
�--Levalbuterol as needed, to do her eyedrops
-Continue carbidopa levodopa
-prednisone continued
-Outpatient IV Benadryl drip at 15 milligram an hour upon presentation. As discussed with primary dairy department manager Dr. Mora plan is to slowly taper.
dystonia/movement disorder-patient apparently has dystonic features with her mast cell activation syndrome. I could not find in literature as a routine clinical presentation but according to patient apparently this is very unusual feature which was
noted in few other patients . She is on IV Benadryl pump at 15 mg/h at home. Yesterday she had 2 episodes of them requiring as needed Ativan. In view of increased need of breakthrough medication consulted neurology.
-baclofen continued
-sinemet continued
-episodes with vasovagal response when trying to have a BM - start standing miralax and colace BID
Chronic pain syndrome-on high doses of narcotics (chronic opioid use with dependence) including p.o. Dilaudid and Suboxone at home. Again unclear the source of her pain.
s/p fall overnight 10/03-10/04
imaging negative for bleed or fracture
one more dose IV dilaudid now
GERD
-famotidine continued
-acipHex continued
-simethicone continued
iron def anemia
-ferrous sulfate continued
hxt of tachycardia
-EKG with sinus tachycardia
-propranolol continued
Chronic Nausea / Esophageal Dysmotility/gastroparesis
History GJ tube
�- Continue diet as tolerated.
�- Continue G-tube to gravity for chronic nausea.
�- Meds via J-tube.
-Zofran every 8 hours as needed
-Continue Pepcid
-emend continued
- PEG tube site without any signs of cellulitis. CT of the abdomen pelvis shows no subcutaneous collection around the PEG tube and it is in place.
Steroid-Induced DM-II--pt now on prednisone 10 mg BID--sugars running low--will adjust insulin....
�- Continue basal insulin and add SSI coverage as needed.
-lantus 15u daily
-lispro 8u before meals
Steroid-Induced Osteoporosis
Chronic Pain Syndrome secondary to the above on chronic opiates
�- Continue buprenorphine 2 mg 4 times daily , Dilaudid 8 mg as needed
�- PT / OT evaluations.
�- Follow-up with usual military equipment specialist after discharge.
allergy induced asthma
chronic hypoxic respiratory failure--on O2
-albuterol continued
-budesonide continued
-cetirizine continued
-cromolyn continued
Migraine Hx
ODT Nurtec as needed
Restless leg syndrome
-Continue baclofen
History of DVT/PE
#Takes subcu Lovenox 100 mg twice daily
DNR on admission
Disposition: Discussion with primary dairy department manager Dr. Ethan Villanueva on 10/09. Discussed possibility of attempting weaning Benadryl drip likely could be done as outpatient. With current family social situation, unfortunately there is no options
for disposition other than home on IV infusion. Possibility of a transfer to [facility] discussed as well, although according to Dr. Villanueva hospital administration declined services due to complexity. Also discussed possibility of
transfer to tertiary center ([place] in [place] declined in the past).
Anticipated Discharge: > 48 hours
Subjective/Interval History
-
Date of Service: October 22, 2023
Objective Data
-
Vital Signs:
Vital Signs
Temp Pulse Resp BP Pulse Ox
98.2 F 125 15 128/84 99
10/22/23 14:55 10/22/23 16:02 10/22/23 16:02 10/22/23 14:55 10/22/23 16:02
I&O
10/21/23 10/22/23 10/23/23
06:59 06:59 06:59
Intake Total 1520 / 1520 2116
Output Total 400 / 400
Balance 1520 / 1520 2116 -400 / -400
Physical Exam
-
General: Well Developed and No Apparent Distress
HEENT: Normocephalic, Atraumatic and Moist Mucous Membranes
Respiratory: Clear to Auscultation
Cardiac: Regular Rhythm and S1/S2; Negative Murmur, Rub or Gallop
GI: Soft, Nontender, Nondistended and Normal Bowel Sounds; Negative Organomegaly
Rectal: Deferred by Provider
Musculoskeletal: No Clubbing, No Cyanosis and No Edema
Skin: Negative Rash
Neuro: Nonfocal/Grossly Intact
[2023-10-22] MEDS: ATIVAN 2 MG IV (16:50)
[2023-10-22] MEDS: NSS (PRESERVATIVE FREE) 1 ML IV (16:50)
[2023-10-22] MEDS: INDERAL TUBE (17:10)
[2023-10-22 17:56] LABS: Glucose - Point of Care 109 mg/dl (70-99)
[2023-10-22] MEDS: ZYRTEC 10 MG TUBE ×2 (18:01→21:59)
--- NOTE | 2023-10-22 18:38 | PTCARENOTE ---
Called to room @ 1545 for an acute dystonia episode. Pt found shaking, rigid & coughing, diaphoretic, 2mg SL Ativan, 25mg IV Benadryl given. RT called for treatment. Pt denied needing Epi. Remained awake and able to talk minimally.
Sat remained 96-100% throughout episode, severe symptoms lasting approximately 25 minutes. HR 130's during episde, BP 135/77. Pt continued to feel very rigid and and in pain, 2mg IV Ativan administered w/ good result.
[2023-10-22 19:45] VITALS: BP 119/77
[2023-10-22] MEDS: COLACE PO (20:09)
[2023-10-22 22:05] LABS: Glucose - Point of Care 110 mg/dl (70-99)
[2023-10-22 23:00] VITALS: BP 113/75
[2023-10-23] VITALS (8 sets, daily range): BP systolic 100–143; BP diastolic 62–93; PULSE 110–124; O2SAT 99
[2023-10-23] MEDS: BENADRYL 250 MG IV ×2 (01:25→20:53)
--- NOTE | 2023-10-23 03:21 | PTCARENOTE ---
Pt. with dystonia episode this shift. PRN benadryl and PRN SL ativan administered. Pt. remained alert during episode, talking to this RN. SpO2 98% on 3L O2 during episode. Episode lasted about 15 minutes. Plan of care ongoing.
[2023-10-23] MEDS: SINEMET 25-100 1.5 TABLET TUBE ×2 (05:59→09:30)
[2023-10-23] MEDS: LIORESAL 10 MG TUBE ×3 (05:59→20:55)
[2023-10-23] MEDS: PULMICORT 0.5 MG INH ×2 (07:42→20:07)
[2023-10-23] MEDS: DUONEB 3 ML INH (07:44)
[2023-10-23 08:41] LABS: Glucose - Point of Care 90 mg/dl (70-99)
[2023-10-23] MEDS: ATIVAN 2 MG SL ×2 (08:42→22:18)
[2023-10-23] MEDS: BENADRYL 25 MG IV ×3 (08:43→22:18)
[2023-10-23] MEDS: CLARITIN 10 MG PO (08:46)
[2023-10-23] MEDS: PEPCID 40 MG IV ×2 (08:47→20:56)
[2023-10-23] MEDS: VITAMIN B1 100 MG TUBE (08:48)
[2023-10-23] MEDS: NSS (PRESERVATIVE FREE) 6 ML IV ×2 (08:48→20:56)
[2023-10-23] MEDS: HYDREA 500 MG PO ×2 (08:49→20:54)
[2023-10-23] MEDS: DELTASONE 10 MG TUBE ×2 (08:49→20:54)
[2023-10-23] MEDS: INDERAL 10 MG TUBE ×3 (08:49→20:55)
[2023-10-23] MEDS: SUBUTEX 2 MG SL ×4 (08:50→20:55)
[2023-10-23] MEDS: COLACE PO (08:50)
[2023-10-23] MEDS: MIRALAX PO (08:50)
[2023-10-23] MEDS: NON-FORMULARY ITEM 1 UNIT PO ×3 (08:55→21:03)
[2023-10-23] MEDS: NON-FORMULARY ITEM 1 MG PO ×2 (08:56→21:04)
[2023-10-23] MEDS: NON-FORMULARY ITEM 80 MG PO (08:57)
[2023-10-23] MEDS: LOVENOX 100 MG SC ×2 (09:01→20:54)
[2023-10-23] MEDS: DESENEX/MITRAZOL/ZEASORB 1 APPLIC TOPICAL ×2 (09:04→21:04)
[2023-10-23] MEDS: NON-FORMULARY ITEM 2 UNIT INH (09:05)
[2023-10-23] MEDS: NOVOLOG FLEXPEN-LOW RESISTANCE SC ×3 (09:13→17:48)
[2023-10-23] MEDS: ZADITOR 1 DROP BOTH EYES ×2 (09:13→21:05)
[2023-10-23] MEDS: NOVOLOG FLEXPEN 5 UNITS SC ×2 (09:21→12:48)
[2023-10-23] MEDS: LANTUS 0.12 UNITS SC (09:22)
[2023-10-23] MEDS: GASTROCROM 300 MG PO ×4 (09:28→20:55)
[2023-10-23 12:22] LABS: Glucose - Point of Care 131 mg/dl (70-99)
[2023-10-23] MEDS: SINEMET 25-100 2 TABLET TUBE ×2 (12:58→17:57)
[2023-10-23] MEDS: NON-FORMULARY ITEM 200 MG PO (12:59)
[2023-10-23 15:13] LABS: Glucose - Point of Care 103 mg/dl (70-99)
[2023-10-23] MEDS: ATIVAN 2 MG IV (15:16)
[2023-10-23] MEDS: NSS (PRESERVATIVE FREE) 1 ML IV (15:16)
[2023-10-23] MEDS: DILAUDID 1 MG IV (15:20)
[2023-10-23] MEDS: NSS 1000 IV (15:21)
--- NOTE | 2023-10-23 15:40 | RR ---
A Rapid Response was called on this patient, please see Rapid Response form.
--- NOTE | 2023-10-23 15:40 | PTCARENOTE ---
pt working with PT when she became dyspneic, flushed, rigid, HR 150's. Assisted back to bed. RR called PRN IVP Benadryl, IVP ativan and IVP dilaudid ordered. IVF added and started. Pt agitated stating she requested IVF earlier in the day. PT did ask
for zyrtec and IVF to prevent a migraine. A message to attending at 10:29 was sent asking for Zyrtec (although pt does have standing BID order) and IVF. attending did not want to order at that time. an order for IVF was entered at 14:30 and started
@15:20. This was clarified with pt and attending at bedside during RR. after Ativan, Benadryl and Dilaudid HR in 130-120's. pt awake and alert. pt had a similar dystonic episode previously in the shift that was resolved with SL ativan. Discussed
with UM and attending as this episode presenting more severe. Step mother and father at bedside and had an opportunity to discuss with attending. CB in reach, pt's breathing improved, HR in 120's
--- NOTE | 2023-10-23 16:06 | CM ---
community marketing manager following for d/c planning
Chart reviewed
Rapid response today
Attempting to wean Benadryl
[facility] - looking for housing
CM will cont to follow for d/c needs
Plan - Anticipate discharge occurring with Resumption of services once a home is found for the patient
At this time Patient's mother is unwilling to accept the patient back home
--- NOTE | 2023-10-23 16:32 | W.PN.HOSP.TC ---
Today's Communication/Plan
-
And has episodes of dystonic reaction manifested with continuous tonicity.
Patient is awake throughout the episode.
Exam at the time with tachycardia, although with no evidence of bronchospasm or stridor.
Treated with IV Benadryl, IV lorazepam and hydromorphone.
Improved.
IV fluids has been ordered on a daily basis.
Given euglycemia, reduce dose of insulin and monitor for hypoglycemia.
Assessment / Plan
Assessment / Plan
Impression:
Gram-negative bacteremia due to chronic infected PICC line.
Fever on admission with no evidence of sepsis (tachycardia likely fever mediated)
Conditions prior to admission:
1. Mast cell activation syndrome.
2. Chronic dystonic reaction.
3. Orthostatic hypotension with postural orthostatic and
tachycardia syndrome.
4. Dopa sensitive dystonia.
5. Steroid-induced diabetes.
6. Prior history of deep venous thrombosis and pulmonary embolism.
7. Chronic pain syndrome.
8. Migraine headaches.
9. Gastroesophageal reflux disease.
10. Benzodiazepine and opiate dependence.
11. Restless legs syndrome.
12. Insomnia.
13. History of vocal cord dysfunction.
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
15. Gastroparesis.
16. 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
17. 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
Plan:
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
PICC line removed and PICC line replaced on 09/23
Repeated blood cultures negative on 09/20 but no other cultures obtained
Finished cipro on 10/06/23 (was on 750mg BID)
GJ tube in place with buried bumper.
Replaced by interventional radiology on 09/22
HX Recurrent Anaphylaxis / Mast Cell Flare Episodes on chronic steroids
Mast Cell Activation Syndrome
DOPA-Responsive Dystonia
-follows with Dr. Lizabeth Villanueva at [facility] hematology.
- Continue Ativan
�-cont Gleevac ,steroids
�--Levalbuterol as needed, to do her eyedrops
-Continue carbidopa levodopa
-prednisone continued
-Outpatient IV Benadryl drip at 15 milligram an hour upon presentation. As discussed with primary binitrotoluene operator Dr. Mora plan is to slowly taper.
dystonia/movement disorder-patient apparently has dystonic features with her mast cell activation syndrome. I could not find in literature as a routine clinical presentation but according to patient apparently this is very unusual feature which was
noted in few other patients . She is on IV Benadryl pump at 15 mg/h at home. Yesterday she had 2 episodes of them requiring as needed Ativan. In view of increased need of breakthrough medication consulted neurology.
-baclofen continued
-sinemet continued
-episodes with vasovagal response when trying to have a BM - start standing miralax and colace BID
Chronic pain syndrome-on high doses of narcotics (chronic opioid use with dependence) including p.o. Dilaudid and Suboxone at home. Again unclear the source of her pain.
s/p fall overnight 10/03-10/04
imaging negative for bleed or fracture
one more dose IV dilaudid now
GERD
-famotidine continued
-acipHex continued
-simethicone continued
iron def anemia
-ferrous sulfate continued
hxt of tachycardia
-EKG with sinus tachycardia
-propranolol continued
Chronic Nausea / Esophageal Dysmotility/gastroparesis
History GJ tube
�- Continue diet as tolerated.
�- Continue G-tube to gravity for chronic nausea.
�- Meds via J-tube.
-Zofran every 8 hours as needed
-Continue Pepcid
-emend continued
- PEG tube site without any signs of cellulitis. CT of the abdomen pelvis shows no subcutaneous collection around the PEG tube and it is in place.
Steroid-Induced DM-II--
She remains on steady dose of prednisone
Blood glucose remains marginal
Monitor oral intake
Reduce Lantus and NovoLog AC
Continue serial Accu-Cheks with basal bolus protocol.
Steroid-Induced Osteoporosis
Chronic Pain Syndrome secondary to the above on chronic opiates
�- Continue buprenorphine 2 mg 4 times daily , Dilaudid 8 mg as needed
�- PT / OT evaluations.
�- Follow-up with usual network applications specialist after discharge.
allergy induced asthma
chronic hypoxic respiratory failure--on O2
-albuterol continued
-budesonide continued
-cetirizine continued
-cromolyn continued
Migraine Hx
ODT Nurtec as needed
Restless leg syndrome
-Continue baclofen
History of DVT/PE
#Takes subcu Lovenox 100 mg twice daily
DNR on admission
Disposition: Discussion with primary binitrotoluene operator Dr. Ethan Villanueva on 10/09. Discussed possibility of attempting weaning Benadryl drip likely could be done as outpatient. With current family social situation, unfortunately there is no options
for disposition other than home on IV infusion. Possibility of a transfer to [facility] discussed as well, although according to Dr. Villanueva hospital administration declined services due to complexity. Also discussed possibility of
transfer to tertiary center ([facility] declined in the past).
Anticipated Discharge: > 48 hours
Subjective/Interval History
-
Date of Service: October 23, 2023
Objective Data
-
Vital Signs:
Vital Signs
Temp Pulse Resp BP Pulse Ox
99.2 F 103 16 118/82 96
10/23/23 11:00 10/23/23 11:00 10/23/23 11:00 10/23/23 11:00 10/23/23 11:00
I&O
10/22/23 10/23/2310/23/24
06:59 06:59 06:59
Intake Total 21166 / 2715
Output Total 525 / 525
Balance 2116
Physical Exam
-
General: Well Developed and No Apparent Distress
HEENT: Normocephalic, Atraumatic and Moist Mucous Membranes
Respiratory: Clear to Auscultation
Cardiac: Regular Rhythm and S1/S2; Negative Murmur, Rub or Gallop
GI: Soft, Nontender, Nondistended and Normal Bowel Sounds; Negative Organomegaly
Rectal: Deferred by Provider
Musculoskeletal: No Clubbing, No Cyanosis and No Edema
Skin: Negative Rash
Neuro: Nonfocal/Grossly Intact
[2023-10-23] MEDS: ZYRTEC 10 MG TUBE ×2 (17:01→20:55)
[2023-10-23 17:04] LABS: Glucose - Point of Care 102 mg/dl (70-99)
[2023-10-23] MEDS: NOVOLOG FLEXPEN SC (17:49)
--- NOTE | 2023-10-23 18:00 | PTCARENOTE ---
Received patient from floor by stretcher. Patient able to ambulate from stretcher to bed with 1 assist and walker. Patient states at baseline now that dystonic episode digressed. VSS, NST 105. Benadryl and IVF running as ordered. Will closely
monitor.
[2023-10-23] MEDS: COLACE 100 MG PO (20:54)
[2023-10-23] MEDS: FEOSOL 325 MG PO (20:56)
[2023-10-23 21:22] LABS: Glucose - Point of Care 104 mg/dl (70-99)
--- NOTE | 2023-10-23 22:21 | PTCARENOTE ---
Patient feels an 'episode' coming on. PRN ativan and benadryl administered per patient request.
[2023-10-24] VITALS (12 sets, daily range): BP systolic 95–135; BP diastolic 59–91
[2023-10-24 04:02] LABS: Blood Urea Nitrogen 9 mg/dl (7-17); Calcium 8.6 mg/dl (8.4-10.2); Carbon Dioxide 27 mmol/L (22-30); Chloride 106 mmol/L (98-107); Estimated Creatinine Clearance > 125 ml/min; Glucose 137 mg/dl (70-99); Sodium 143 mmol/L (135-145); eGFR > 60.00
[2023-10-24] MEDS: SINEMET 25-100 1.5 TABLET TUBE ×2 (05:52→09:22)
[2023-10-24] MEDS: LIORESAL 10 MG TUBE ×3 (05:53→20:44)
[2023-10-24] MEDS: PULMICORT 0.5 MG INH ×2 (07:32→19:18)
--- NOTE | 2023-10-24 07:48 | PTOTSP ---
Please place updated PT/OT orders once medically appropriate. Orders not transferred upon downgrade to IMU.
[2023-10-24] MEDS: SUBUTEX 2 MG SL ×4 (08:41→20:45)
[2023-10-24] MEDS: ATIVAN 2 MG SL ×3 (08:42→22:57)
[2023-10-24] MEDS: BENADRYL 25 MG IV ×3 (08:42→22:57)
[2023-10-24] MEDS: PEPCID 40 MG IV ×2 (08:45→20:45)
[2023-10-24] MEDS: CLARITIN 10 MG PO (08:50)
[2023-10-24] MEDS: INDERAL 10 MG TUBE ×3 (08:50→20:46)
[2023-10-24] MEDS: VITAMIN B1 100 MG TUBE (08:50)
[2023-10-24] MEDS: LOVENOX 100 MG SC ×2 (08:51→20:43)
[2023-10-24] MEDS: GASTROCROM 300 MG PO ×4 (08:51→20:44)
[2023-10-24] MEDS: HYDREA 500 MG PO ×2 (08:51→20:45)
[2023-10-24] MEDS: DELTASONE 10 MG TUBE ×2 (08:51→20:45)
[2023-10-24] MEDS: MIRALAX PO (08:52)
[2023-10-24] MEDS: NON-FORMULARY ITEM 80 MG PO (08:55)
[2023-10-24] MEDS: NON-FORMULARY ITEM 1 UNIT NASAL (08:56)
[2023-10-24 08:57] LABS: Glucose - Point of Care 102 mg/dl (70-99)
[2023-10-24] MEDS: NON-FORMULARY ITEM 1 MG PO ×2 (08:59→20:49)
[2023-10-24] MEDS: NON-FORMULARY ITEM 1 UNIT PO ×2 (09:00→20:48)
[2023-10-24] MEDS: NSS (PRESERVATIVE FREE) 6 ML IV ×2 (09:01→20:46)
[2023-10-24] MEDS: ZADITOR 1 DROP BOTH EYES ×2 (09:01→20:49)
[2023-10-24] MEDS: COLACE PO (09:02)
[2023-10-24] MEDS: DESENEX/MITRAZOL/ZEASORB 1 APPLIC TOPICAL ×2 (09:02→20:47)
[2023-10-24] MEDS: LANTUS 0.1 UNITS SC (09:06)
[2023-10-24] MEDS: NOVOLOG FLEXPEN-LOW RESISTANCE SC ×3 (09:11→17:07)
[2023-10-24] MEDS: NOVOLOG FLEXPEN 3 UNITS SC ×3 (09:12→17:08)
[2023-10-24 12:04] LABS: Glucose - Point of Care 137 mg/dl (70-99)
[2023-10-24] MEDS: NSS 1000 IV (12:45)
[2023-10-24] MEDS: SINEMET 25-100 2 TABLET TUBE ×2 (14:20→17:07)
[2023-10-24] MEDS: NON-FORMULARY ITEM 200 MG PO (14:21)
[2023-10-24] MEDS: BENADRYL 250 MG IV (15:51)
--- NOTE | 2023-10-24 16:47 | W.PN.HOSP.TC ---
Today's Communication/Plan
-
Slow wean of IV Benadryl drip. Dose will be reduced to 12 mg an hour today.
Monitor for recurrent dystonic reaction which usually improved with IV lorazepam and hydromorphone
Assessment / Plan
Assessment / Plan
Impression:
Gram-negative bacteremia due to chronic infected PICC line.
Fever on admission with no evidence of sepsis (tachycardia likely fever mediated)
Conditions prior to admission:
1. Mast cell activation syndrome.
2. Chronic dystonic reaction.
3. Orthostatic hypotension with postural orthostatic and
tachycardia syndrome.
4. Dopa sensitive dystonia.
5. Steroid-induced diabetes.
6. Prior history of deep venous thrombosis and pulmonary embolism.
7. Chronic pain syndrome.
8. Migraine headaches.
9. Gastroesophageal reflux disease.
10. Benzodiazepine and opiate dependence.
11. Restless legs syndrome.
12. Insomnia.
13. History of vocal cord dysfunction.
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
15. Gastroparesis.
16. 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
17. 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
Plan:
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
PICC line removed and PICC line replaced on 09/23
Repeated blood cultures negative on 09/20 but no other cultures obtained
Finished cipro on 10/06/23 (was on 750mg BID)
GJ tube in place with buried bumper.
Replaced by interventional radiology on 09/22
HX Recurrent Anaphylaxis / Mast Cell Flare Episodes on chronic steroids
Mast Cell Activation Syndrome
DOPA-Responsive Dystonia
-follows with Dr. Lizabeth Villanueva at [facility] hematology.
- Continue Ativan
�-cont Gleevac ,steroids
�--Levalbuterol as needed, to do her eyedrops
-Continue carbidopa levodopa
-prednisone continued
-Outpatient IV Benadryl drip at 15 milligram an hour upon presentation. As discussed with primary brazer crawler torch Dr. Mora plan is to slowly taper.
dystonia/movement disorder-patient apparently has dystonic features with her mast cell activation syndrome. I could not find in literature as a routine clinical presentation but according to patient apparently this is very unusual feature which was
noted in few other patients . She is on IV Benadryl pump at 15 mg/h at home. Yesterday she had 2 episodes of them requiring as needed Ativan. In view of increased need of breakthrough medication consulted neurology.
-baclofen continued
-sinemet continued
-episodes with vasovagal response when trying to have a BM - start standing miralax and colace BID
Chronic pain syndrome-on high doses of narcotics (chronic opioid use with dependence) including p.o. Dilaudid and Suboxone at home. Again unclear the source of her pain.
s/p fall overnight 10/03-10/04
imaging negative for bleed or fracture
one more dose IV dilaudid now
GERD
-famotidine continued
-acipHex continued
-simethicone continued
iron def anemia
-ferrous sulfate continued
hxt of tachycardia
-EKG with sinus tachycardia
-propranolol continued
Chronic Nausea / Esophageal Dysmotility/gastroparesis
History GJ tube
�- Continue diet as tolerated.
�- Continue G-tube to gravity for chronic nausea.
�- Meds via J-tube.
-Zofran every 8 hours as needed
-Continue Pepcid
-emend continued
- PEG tube site without any signs of cellulitis. CT of the abdomen pelvis shows no subcutaneous collection around the PEG tube and it is in place.
Steroid-Induced DM-II--
She remains on steady dose of prednisone
Blood glucose remains marginal
Monitor oral intake
Reduce Lantus and NovoLog AC
Continue serial Accu-Cheks with basal bolus protocol.
Steroid-Induced Osteoporosis
Chronic Pain Syndrome secondary to the above on chronic opiates
�- Continue buprenorphine 2 mg 4 times daily , Dilaudid 8 mg as needed
�- PT / OT evaluations.
�- Follow-up with usual retail loss prevention specialist after discharge.
allergy induced asthma
chronic hypoxic respiratory failure--on O2
-albuterol continued
-budesonide continued
-cetirizine continued
-cromolyn continued
Migraine Hx
ODT Nurtec as needed
Restless leg syndrome
-Continue baclofen
History of DVT/PE
#Takes subcu Lovenox 100 mg twice daily
DNR on admission
Disposition: Discussion with primary brazer crawler torch Dr. Ethan Villanueva on 10/09. Discussed possibility of attempting weaning Benadryl drip likely could be done as outpatient. With current family social situation, unfortunately there is no options
for disposition other than home on IV infusion. Possibility of a transfer to [facility] discussed as well, although according to Dr. Villanueva hospital administration declined services due to complexity. Also discussed possibility of
transfer to tertiary center ([place] in [place] declined in the past).
Anticipated Discharge: > 48 hours
Subjective/Interval History
-
Date of Service: October 24, 2023
Objective Data
-
Vital Signs:
Vital Signs
Temp Pulse Resp BP Pulse Ox
98.6 F 100 15 128/87 84
10/24/23 11:35 10/24/23 12:00 10/24/23 12:00 10/24/23 12:00 10/24/23 12:07
I&O
10/23/23 10/24/23 10/25/23
06:59 06:59 06:59
Intake Total 2716 / 2716 1480 / 1480
Output Total 525 / 525
Balance 2191 / 2191 1480 / 1480
Physical Exam
-
General: Well Developed and No Apparent Distress
HEENT: Normocephalic, Atraumatic and Moist Mucous Membranes
Respiratory: Clear to Auscultation
Cardiac: Regular Rhythm and S1/S2; Negative Murmur, Rub or Gallop
GI: Soft, Nontender, Nondistended and Normal Bowel Sounds; Negative Organomegaly
Rectal: Deferred by Provider
Musculoskeletal: No Clubbing, No Cyanosis and No Edema
Skin: Negative Rash
Neuro: Nonfocal/Grossly Intact
[2023-10-24 17:05] LABS: Glucose - Point of Care 96 mg/dl (70-99)
--- NOTE | 2023-10-24 17:05 | CM ---
Patient with Hx Mast Cell Activation Syndrome with Dx Gram-negative bacteremia secondary to PICC line. Receiving Subutex, IV Benadryl gtt with dose reductions. IV Ativan prn. PT 6/6 rec HH. OT rec skilled vs home.
CM continuing to follow.
Plan d/c once IV Benadryl weaned, and a home is found for the patient or she is allowed to return to her prior home.
[2023-10-24] MEDS: ZYRTEC 10 MG TUBE ×2 (17:07→20:50)
--- NOTE | 2023-10-24 18:38 | PTCARENOTE ---
OOB several times for bsc, recliner chair once 1.5 hr. PRN IV Benedryl and SL Ativan given x2 this shift for 'aura feelings, nausea, pre dystonia, etc...' this afternoon she displayed upper body rigidness- her fingers curled downward- was able to
communicate during episode and PRN meds resolved all of that within the hour. Encouragement , emotional support provided which she appreciated. Her goal is to get an apt with caregivers if that is possible.
[2023-10-24] MEDS: DUONEB 3 ML INH (19:18)
[2023-10-24] MEDS: FEOSOL 325 MG PO (20:44)
[2023-10-24] MEDS: COLACE 100 MG PO (20:46)
[2023-10-24 21:38] LABS: Glucose - Point of Care 141 mg/dl (70-99)
[2023-10-24] MEDS: TYLENOL 650 MG PO (23:57)
[2023-10-25] VITALS (11 sets, daily range): BP systolic 109–152; BP diastolic 67–129; BMI 36.1
[2023-10-25] MEDS: LIORESAL 10 MG TUBE ×3 (05:56→20:43)
[2023-10-25] MEDS: SINEMET 25-100 1.5 TABLET TUBE ×2 (05:56→09:22)
[2023-10-25] MEDS: PULMICORT 0.5 MG INH ×2 (07:47→19:43)
[2023-10-25] MEDS: DUONEB 3 ML INH ×3 (07:49→19:43)
[2023-10-25] MEDS: BENADRYL 25 MG IV ×4 (07:55→19:55)
[2023-10-25] MEDS: ATIVAN 2 MG SL ×3 (07:55→19:55)
--- NOTE | 2023-10-25 08:27 | W.PN.HOSP.TC ---
Today's Communication/Plan
-
Next IV benadryl wean on 10/27/23
Assessment / Plan
Assessment / Plan
Impression:
Gram-negative bacteremia due to chronic infected PICC line.
Fever on admission with no evidence of sepsis (tachycardia likely fever mediated)
Conditions prior to admission:
1. Mast cell activation syndrome.
2. Chronic dystonic reaction.
3. Orthostatic hypotension with postural orthostatic and
tachycardia syndrome.
4. Dopa sensitive dystonia.
5. Steroid-induced diabetes.
6. Prior history of deep venous thrombosis and pulmonary embolism.
7. Chronic pain syndrome.
8. Migraine headaches.
9. Gastroesophageal reflux disease.
10. Benzodiazepine and opiate dependence.
11. Restless legs syndrome.
12. Insomnia.
13. History of vocal cord dysfunction.
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
15. Gastroparesis.
16. 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
17. 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
Plan:
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
PICC line removed and PICC line replaced on 09/23
Repeated blood cultures negative on 09/20 but no other cultures obtained
Finished cipro on 10/06/23 (was on 750mg BID)
GJ tube in place with buried bumper.
Replaced by interventional radiology on 09/22
HX Recurrent Anaphylaxis / Mast Cell Flare Episodes on chronic steroids
Mast Cell Activation Syndrome
DOPA-Responsive Dystonia
-follows with Dr. Lizabeth Villanueva at [facility] hematology.
- Continue Ativan
�-cont Gleevac ,steroids
�--Levalbuterol as needed, to do her eyedrops
-Continue carbidopa levodopa
-prednisone continued
-Outpatient IV Benadryl drip at 15 milligram an hour upon presentation. As discussed with primary firmware engineer Dr. Mora plan is to slowly taper.
dystonia/movement disorder-patient apparently has dystonic features with her mast cell activation syndrome. I could not find in literature as a routine clinical presentation but according to patient apparently this is very unusual feature which was
noted in few other patients . She is on IV Benadryl pump at 15 mg/h at home. Yesterday she had 2 episodes of them requiring as needed Ativan. In view of increased need of breakthrough medication consulted neurology.
-baclofen continued
-sinemet continued
-episodes with vasovagal response when trying to have a BM - start standing miralax and colace BID
Chronic pain syndrome-on high doses of narcotics (chronic opioid use with dependence) including p.o. Dilaudid and Suboxone at home. Again unclear the source of her pain.
s/p fall overnight 10/03-10/04
imaging negative for bleed or fracture
one more dose IV dilaudid now
GERD
-famotidine continued
-acipHex continued
-simethicone continued
iron def anemia
-ferrous sulfate continued
hxt of tachycardia
-EKG with sinus tachycardia
-propranolol continued
Chronic Nausea / Esophageal Dysmotility/gastroparesis
History GJ tube
�- Continue diet as tolerated.
�- Continue G-tube to gravity for chronic nausea.
�- Meds via J-tube.
-Zofran every 8 hours as needed
-Continue Pepcid
-emend continued
- PEG tube site without any signs of cellulitis. CT of the abdomen pelvis shows no subcutaneous collection around the PEG tube and it is in place.
Steroid-Induced DM-II--
She remains on steady dose of prednisone
Blood glucose remains marginal
Monitor oral intake
Reduce Lantus and NovoLog AC
Continue serial Accu-Cheks with basal bolus protocol.
Steroid-Induced Osteoporosis
Chronic Pain Syndrome secondary to the above on chronic opiates
�- Continue buprenorphine 2 mg 4 times daily , Dilaudid 8 mg as needed
�- PT / OT evaluations.
�- Follow-up with usual medical affairs specialist after discharge.
allergy induced asthma
chronic hypoxic respiratory failure--on O2
-albuterol continued
-budesonide continued
-cetirizine continued
-cromolyn continued
Migraine Hx
ODT Nurtec as needed
Restless leg syndrome
-Continue baclofen
History of DVT/PE
#Takes subcu Lovenox 100 mg twice daily
DNR on admission
Disposition: Discussion with primary firmware engineer Dr. Ethan Villanueva on 10/09. Discussed possibility of attempting weaning Benadryl drip likely could be done as outpatient. With current family social situation, unfortunately there is no options
for disposition other than home on IV infusion. Possibility of a transfer to [facility] discussed as well, although according to Dr. Villanueva hospital administration declined services due to complexity. Also discussed possibility of
transfer to tertiary center ([facility] declined in the past).
Total time spent to see the patient on the floor, examine the patient, review data and lab results, discuss treatment plan with patient, nursing staff around 35 minutes.
Physical Exam
General: Obese, no acute distress
HEENT: Normocephalic, Atraumatic, EOMI, MMM
Respiratory: Clear to Auscultation bilaterally
Cardiac: Normal S1/S2, Regular Rate and Rhythm
GI: Soft, +GJ tube, Nontender, Nondistended, Normal Bowel Sounds
Extremities: No Clubbing, Cyanosis, or Edema
Neuro: Nonfocal/Grossly Intact
Psych: Calm, Cooperative
Derm: No Visible lesions
Anticipated Discharge: > 48 hours
Subjective/Interval History
-
Date of Service: October 25, 2023
No acute changes, no fever, no vomiting.
Objective Data
-
Vital Signs:
Vital Signs
Temp Pulse Resp BP Pulse Ox
98.3 F 113 16 109/67 98
10/25/23 07:25 10/25/23 07:49 10/25/23 07:49 10/25/23 02:00 10/25/23 07:49
I&O
10/24/23 10/25/23 10/26/23
06:59 06:59 06:59
Intake Total 1480 / 1480 4104 / 4104
Output Total 640 / 640
Balance 1480 / 1480 3464 / 3464
[2023-10-25 08:44] LABS: Glucose - Point of Care 88 mg/dl (70-99)
[2023-10-25] MEDS: GASTROCROM 300 MG PO ×4 (08:56→21:56)
[2023-10-25] MEDS: NOVOLOG FLEXPEN-LOW RESISTANCE SC ×2 (08:57→17:23)
[2023-10-25] MEDS: NON-FORMULARY ITEM 80 MG PO (08:57)
[2023-10-25] MEDS: HYDREA 500 MG PO ×2 (08:58→19:54)
[2023-10-25] MEDS: LOVENOX 100 MG SC ×2 (08:59→19:54)
[2023-10-25] MEDS: VITAMIN B1 100 MG TUBE (08:59)
[2023-10-25] MEDS: SUBUTEX 2 MG SL ×4 (09:00→20:44)
[2023-10-25] MEDS: CLARITIN 10 MG PO (09:00)
[2023-10-25] MEDS: DELTASONE 10 MG TUBE ×2 (09:01→19:55)
[2023-10-25] MEDS: DESENEX/MITRAZOL/ZEASORB 1 APPLIC TOPICAL ×2 (09:02→21:56)
[2023-10-25] MEDS: COLACE PO (09:02)
[2023-10-25] MEDS: INDERAL 10 MG TUBE ×3 (09:02→20:43)
[2023-10-25] MEDS: NON-FORMULARY ITEM 1 UNIT PO ×2 (09:04→20:46)
[2023-10-25] MEDS: NON-FORMULARY ITEM 1 MG PO (09:05)
[2023-10-25] MEDS: MIRALAX PO (09:06)
[2023-10-25] MEDS: NON-FORMULARY ITEM NASAL (09:06)
[2023-10-25] MEDS: NSS (PRESERVATIVE FREE) 6 ML IV ×2 (09:07→19:54)
[2023-10-25] MEDS: PEPCID 40 MG IV ×2 (09:07→19:54)
[2023-10-25] MEDS: ZADITOR BOTH EYES (09:07)
[2023-10-25] MEDS: NOVOLOG FLEXPEN 3 UNITS SC ×3 (09:17→17:23)
[2023-10-25] MEDS: NSS 1000 IV (09:22)
[2023-10-25] MEDS: LANTUS 0.1 UNITS SC (09:22)
[2023-10-25] MEDS: BENADRYL 250 MG IV (11:18)
[2023-10-25 12:43] LABS: Glucose - Point of Care 151 mg/dl (70-99)
[2023-10-25] MEDS: NOVOLOG FLEXPEN-LOW RESISTANCE 1 UNITS SC (13:12)
[2023-10-25] MEDS: ZOFRAN 4 MG IV (14:07)
[2023-10-25] MEDS: ADRENALIN 0.3 MG IM (14:22)
--- NOTE | 2023-10-25 14:23 | PTCARENOTE ---
pt w/ second dystonia episode today. Starting around 1405, and continuing at least 25 minutes. Pt given ativan, benadryl and zofran. However, Pt stating she was still having trouble breathing and requesting epi. SpO2 remained >90% throughout
episode. Pt w/ strong harsh cough, and shaking with red face. HR 120s-150s. Pt able to speak throughout entire episode.
[2023-10-25] MEDS: SINEMET 25-100 2 TABLET TUBE ×2 (15:22→17:24)
[2023-10-25] MEDS: NON-FORMULARY ITEM 200 MG PO (15:23)
[2023-10-25] MEDS: ZYRTEC 10 MG TUBE ×2 (17:24→20:43)
[2023-10-25 17:33] LABS: Glucose - Point of Care 116 mg/dl (70-99)
[2023-10-25] MEDS: TYLENOL 650 MG PO (17:44)
[2023-10-25] MEDS: COLACE 100 MG PO (19:55)
--- NOTE | 2023-10-25 20:17 | PTCARENOTE ---
Patient with dystonia, upper extremities rigid, eyes rolling in back of head, diaphoretic, and flushed. requesting 'IV ativan', prn epi, bendaryl and SL ativan given as ordered.
[2023-10-25] MEDS: ZADITOR 1 DROP BOTH EYES (20:42)
[2023-10-25] MEDS: FEOSOL 325 MG PO (20:43)
[2023-10-25] MEDS: NON-FORMULARY ITEM PO (20:46)
[2023-10-25 22:18] LABS: Glucose - Point of Care 148 mg/dl (70-99)
[2023-10-26] VITALS (9 sets, daily range): BP systolic 112–134; BP diastolic 69–118
[2023-10-26] MEDS: ATIVAN 2 MG SL ×4 (01:48→22:18)
[2023-10-26] MEDS: SINEMET 25-100 1.5 TABLET TUBE ×2 (05:51→09:37)
[2023-10-26] MEDS: BENADRYL 250 MG IV (05:51)
[2023-10-26] MEDS: LIORESAL 10 MG TUBE ×3 (05:51→22:08)
[2023-10-26] MEDS: DUONEB 3 ML INH (07:07)
[2023-10-26] MEDS: PULMICORT 0.5 MG INH ×2 (07:07→20:57)
--- NOTE | 2023-10-26 08:32 | W.PN.HOSP.TC ---
Today's Communication/Plan
-
See bold
Assessment / Plan
Assessment / Plan
Impression:
Gram-negative bacteremia due to chronic infected PICC line.
Fever on admission with no evidence of sepsis (tachycardia likely fever mediated)
Conditions prior to admission:
1. Mast cell activation syndrome.
2. Chronic dystonic reaction.
3. Orthostatic hypotension with postural orthostatic and
tachycardia syndrome.
4. Dopa sensitive dystonia.
5. Steroid-induced diabetes.
6. Prior history of deep venous thrombosis and pulmonary embolism.
7. Chronic pain syndrome.
8. Migraine headaches.
9. Gastroesophageal reflux disease.
10. Benzodiazepine and opiate dependence.
11. Restless legs syndrome.
12. Insomnia.
13. History of vocal cord dysfunction.
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
15. Gastroparesis.
16. 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
17. 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
Plan:
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
PICC line removed and PICC line replaced on 09/23
Repeated blood cultures negative on 09/20 but no other cultures obtained
Finished cipro on 10/06/23 (was on 750mg BID)
GJ tube in place with buried bumper.
Replaced by interventional radiology on 09/22
HX Recurrent Anaphylaxis / Mast Cell Flare Episodes on chronic steroids
Mast Cell Activation Syndrome
DOPA-Responsive Dystonia
-follows with Dr. Lizabeth Villanueva at [facility] hematology.
- Continue Ativan
�-cont Gleevac ,steroids
�--Levalbuterol as needed, to do her eyedrops
-Continue carbidopa levodopa
-prednisone continued
-Outpatient IV Benadryl drip at 15 milligram an hour upon presentation. As discussed with primary collection manager Dr. Mora plan is to slowly taper.
dystonia/movement disorder-patient apparently has dystonic features with her mast cell activation syndrome. I could not find in literature as a routine clinical presentation but according to patient apparently this is very unusual feature which was
noted in few other patients . She is on IV Benadryl pump at 15 mg/h at home. Yesterday she had 2 episodes of them requiring as needed Ativan. In view of increased need of breakthrough medication consulted neurology.
-baclofen continued
-sinemet continued
-episodes with vasovagal response when trying to have a BM - start standing miralax and colace BID
Chronic pain syndrome-on high doses of narcotics (chronic opioid use with dependence) including p.o. Dilaudid and Suboxone at home. Again unclear the source of her pain.
s/p fall overnight 10/03-10/04
imaging negative for bleed or fracture
one more dose IV dilaudid now
GERD
-famotidine continued
-acipHex continued
-simethicone continued
iron def anemia
-ferrous sulfate continued
hxt of tachycardia
-EKG with sinus tachycardia
-propranolol continued
Chronic Nausea / Esophageal Dysmotility/gastroparesis
History GJ tube
�- Continue diet as tolerated.
�- Continue G-tube to gravity for chronic nausea.
�- Meds via J-tube.
-Zofran every 8 hours as needed
-Continue Pepcid
-emend continued
- PEG tube site without any signs of cellulitis. CT of the abdomen pelvis shows no subcutaneous collection around the PEG tube and it is in place.
Acute fractures of the left 6 anterolateral 6th and 7th ribs
-Suspect from recent fall on 10/03
-10/25 complains of pain on the posterolateral lower ribs
-Continue lidocaine patch, add heating packs
Steroid-Induced DM-II--
She remains on steady dose of prednisone
Blood glucose remains marginal
Monitor oral intake
Reduce Lantus and NovoLog AC
Continue serial Accu-Cheks with basal bolus protocol.
Steroid-Induced Osteoporosis
Chronic Pain Syndrome secondary to the above on chronic opiates
�- Continue buprenorphine 2 mg 4 times daily , Dilaudid 8 mg as needed
�- PT / OT evaluations.
�- Follow-up with usual piercing specialist after discharge.
allergy induced asthma
chronic hypoxic respiratory failure--on O2
-albuterol continued
-budesonide continued
-cetirizine continued
-cromolyn continued
Migraine Hx
ODT Nurtec as needed
Restless leg syndrome
-Continue baclofen
History of DVT/PE
#Takes subcu Lovenox 100 mg twice daily
DNR on admission
Disposition: Discussion with primary collection manager Dr. Ethan Villanueva on 10/09. Discussed possibility of attempting weaning Benadryl drip likely could be done as outpatient. With current family social situation, unfortunately there is no options
for disposition other than home on IV infusion. Possibility of a transfer to [facility] discussed as well, although according to Dr. Villanueva hospital administration declined services due to complexity. Also discussed possibility of
transfer to tertiary center ([place] in [place] declined in the past).
Physical Exam
General: Obese, no acute distress
HEENT: Normocephalic, Atraumatic, EOMI, MMM
Respiratory: Clear to Auscultation bilaterally
Cardiac: Normal S1/S2, Regular Rate and Rhythm
GI: Soft, +GJ tube, Nontender, Nondistended, Normal Bowel Sounds
MSK: Tenderness to palpation of the left posterolateral lateral ribs
Extremities: No Clubbing, Cyanosis, or Edema
Neuro: Nonfocal/Grossly Intact
Anticipated Discharge: > 48 hours
Subjective/Interval History
-
Date of Service: October 26, 2023
Patient reports having severe dystonia yesterday, now has left posterior rib pain. She is concerned about rib fracture. No fever, no vomiting.
Objective Data
-
Vital Signs:
Vital Signs
Temp Pulse Resp BP Pulse Ox
98.2 F 94 16 123/77 98
10/25/23 23:00 10/26/23 08:00 10/26/23 08:00 10/26/23 04:00 10/26/23 08:00
I&O
10/25/23 10/26/23 10/27/23
06:59 06:59 06:59
Intake Total 4104 / 4104 360 / 360
Output Total 640 / 640 150 / 150
Balance 3464 / 3464 210 / 210
[2023-10-26] MEDS: GASTROCROM 300 MG PO ×4 (09:18→22:09)
[2023-10-26] MEDS: LANTUS 0.1 UNITS SC (09:21)
[2023-10-26] MEDS: ZADITOR 1 DROP BOTH EYES ×2 (09:22→20:05)
[2023-10-26] MEDS: NON-FORMULARY ITEM 80 MG PO (09:23)
[2023-10-26] MEDS: COLACE PO (09:23)
[2023-10-26] MEDS: NSS 1000 IV (09:25)
[2023-10-26] MEDS: PEPCID 40 MG IV ×2 (09:27→20:06)
[2023-10-26] MEDS: NSS (PRESERVATIVE FREE) 6 ML IV ×2 (09:27→20:06)
[2023-10-26] MEDS: LIDOCAINE 4% PATCH 1 PATCH TOPICAL (09:32)
[2023-10-26] MEDS: HYDREA 500 MG PO ×2 (09:35→20:05)
[2023-10-26] MEDS: DESENEX/MITRAZOL/ZEASORB 1 APPLIC TOPICAL ×2 (09:35→20:07)
[2023-10-26] MEDS: DELTASONE 10 MG TUBE ×2 (09:35→20:05)
[2023-10-26] MEDS: INDERAL 10 MG TUBE ×3 (09:36→22:07)
[2023-10-26] MEDS: VITAMIN B1 100 MG TUBE (09:37)
[2023-10-26] MEDS: CLARITIN 10 MG PO (09:37)
[2023-10-26] MEDS: LOVENOX 100 MG SC ×2 (09:37→20:06)
[2023-10-26] MEDS: NON-FORMULARY ITEM 1 MG PO (09:38)
[2023-10-26] MEDS: NON-FORMULARY ITEM 1 UNIT PO ×2 (09:39→20:05)
[2023-10-26] MEDS: NON-FORMULARY ITEM NASAL (09:40)
[2023-10-26] MEDS: MIRALAX PO (09:40)
[2023-10-26] MEDS: SUBUTEX 2 MG SL ×4 (09:40→22:08)
[2023-10-26] MEDS: BENADRYL 25 MG IV ×3 (09:47→22:18)
[2023-10-26] MEDS: ZOFRAN 4 MG IV (09:49)
[2023-10-26] MEDS: NOVOLOG FLEXPEN 3 UNITS SC ×3 (10:01→17:15)
[2023-10-26] MEDS: NOVOLOG FLEXPEN-LOW RESISTANCE SC ×3 (10:03→17:15)
[2023-10-26 10:14] LABS: Glucose - Point of Care 82 mg/dl (70-99)
--- NOTE | 2023-10-26 11:39 | PTCARENOTE ---
pt to xray via stretcher w/ benadryl gtt infusing per MD order, on 3 L NC. Pt w/ back brace on, informed RN and PCT that she did not need neck brace. Pt expressed concern to Dr. Willoughby about rib pain after dystonia episode yesterday. Concerned as she
had had previous vertebral fractures from dystonia episodes and osteoporosis. K pad ordered PRN for pain as well. Updated pt on plan of care.
--- NOTE | 2023-10-26 11:57 | PTCARENOTE ---
pt returning from xray on stretcher w/volunteer present. Stood from stretcher and transferred to bed. PCT set pt up w/ basin and supplies to wash up.
[2023-10-26 12:21] LABS: Glucose - Point of Care 138 mg/dl (70-99)
[2023-10-26] MEDS: SINEMET 25-100 2 TABLET TUBE ×2 (13:08→17:15)
[2023-10-26] MEDS: NON-FORMULARY ITEM 200 MG PO (13:09)
[2023-10-26] MEDS: ZYRTEC 10 MG TUBE ×2 (17:14→22:08)
[2023-10-26 17:23] LABS: Glucose - Point of Care 146 mg/dl (70-99)
[2023-10-26] MEDS: NON-FORMULARY ITEM PO (20:03)
[2023-10-26] MEDS: COLACE 100 MG PO (20:05)
[2023-10-26 21:49] LABS: Glucose - Point of Care 110 mg/dl (70-99)
[2023-10-26] MEDS: FEOSOL 325 MG PO (22:07)
[2023-10-26] MEDS: TYLENOL 650 MG PO (22:18)
--- NOTE | 2023-10-26 22:24 | PTCARENOTE ---
Pt with a dystonia attack. PRN Benadryl and Ativan given (see MAR). Pt asking for PRN Tylenol due to 7/10 left rib pain (see MAR).
[2023-10-27] VITALS (12 sets, daily range): BP systolic 98–133; BP diastolic 54–97
[2023-10-27] MEDS: DILAUDID 8 MG PO (00:53)
[2023-10-27] MEDS: ZOFRAN 4 MG IV ×3 (00:53→16:42)
[2023-10-27] MEDS: BENADRYL 25 MG IV ×4 (01:54→19:56)
[2023-10-27] MEDS: BENADRYL 250 MG IV ×2 (01:54→21:55)
[2023-10-27] MEDS: LIORESAL 10 MG TUBE ×3 (05:25→21:56)
[2023-10-27] MEDS: SINEMET 25-100 1.5 TABLET TUBE ×2 (05:25→09:38)
[2023-10-27] MEDS: GASTROCROM 300 MG PO ×4 (05:26→21:56)
[2023-10-27] MEDS: PULMICORT 0.5 MG INH ×2 (08:15→19:16)
[2023-10-27 09:23] LABS: Glucose - Point of Care 92 mg/dl (70-99)
[2023-10-27] MEDS: NOVOLOG FLEXPEN-LOW RESISTANCE SC ×3 (09:33→17:47)
[2023-10-27] MEDS: PEPCID 40 MG IV ×2 (09:34→19:54)
[2023-10-27] MEDS: NSS (PRESERVATIVE FREE) 6 ML IV ×2 (09:34→19:53)
[2023-10-27] MEDS: LOVENOX 100 MG SC ×2 (09:35→19:53)
[2023-10-27] MEDS: MIRALAX 17 GRAMS PO (09:35)
[2023-10-27] MEDS: NSS 1000 IV (09:36)
[2023-10-27] MEDS: INDERAL 10 MG TUBE ×3 (09:37→21:55)
[2023-10-27] MEDS: SUBUTEX 2 MG SL ×4 (09:37→21:56)
[2023-10-27] MEDS: DELTASONE 10 MG TUBE ×2 (09:37→19:56)
[2023-10-27] MEDS: ATIVAN 2 MG SL ×2 (09:37→16:42)
[2023-10-27] MEDS: VITAMIN B1 100 MG TUBE (09:38)
[2023-10-27] MEDS: CLARITIN 10 MG PO (09:38)
[2023-10-27] MEDS: HYDREA 500 MG PO ×2 (09:38→19:56)
[2023-10-27] MEDS: COLACE 100 MG PO ×2 (09:38→19:53)
[2023-10-27] MEDS: ZADITOR 1 DROP BOTH EYES ×2 (09:39→19:57)
[2023-10-27] MEDS: DESENEX/MITRAZOL/ZEASORB 1 APPLIC TOPICAL ×2 (09:39→19:58)
[2023-10-27] MEDS: LIDOCAINE 4% PATCH 1 PATCH TOPICAL (09:39)
[2023-10-27] MEDS: NON-FORMULARY ITEM NASAL (09:40)
[2023-10-27] MEDS: NON-FORMULARY ITEM 1 MG PO ×2 (09:41→19:58)
[2023-10-27] MEDS: NON-FORMULARY ITEM 80 MG PO (09:42)
[2023-10-27] MEDS: NON-FORMULARY ITEM 1 UNIT PO ×2 (09:43→19:59)
[2023-10-27] MEDS: LANTUS 0.1 UNITS SC (10:08)
[2023-10-27] MEDS: NOVOLOG FLEXPEN 3 UNITS SC ×3 (11:59→17:47)
--- NOTE | 2023-10-27 13:22 | PTCARENOTE ---
Assumed care of patient at beginning of this shift with benadryl infusing as ordered; IVF started this morning as per order. On initial rounds patient stated she was having an 'episode' and requested benadryl, zofran and ativan with her morning
meds. She was incontinent of urine x2, saturating the bed; she states she cannot always tell when she needs to go. Dr Kirk up to see patient; stated he will continue IV benadryl at current rate and maintain IVF order. This nurse updated him on
patient's episode this morning and need for prn meds. See worklist for full assessment and vital signs; see MAR for med administration.
[2023-10-27] MEDS: SINEMET 25-100 2 TABLET TUBE ×2 (13:49→17:51)
[2023-10-27 13:51] LABS: Glucose - Point of Care 133 mg/dl (70-99)
[2023-10-27] MEDS: NON-FORMULARY ITEM 200 MG PO (13:51)
--- NOTE | 2023-10-27 13:53 | W.PN.HOSP.TC ---
Today's Communication/Plan
-
Continue current medication regimen including slow taper of Benadryl drip
IV fluids ordered.
Attempt to reasoning necessity of additional IV fluids to patient while she is on full advance diet with normal electrolytes and renal function as well as hemodynamically stable (according to nursing ordering food from outside restaurants).
Assessment / Plan
Assessment / Plan
Impression:
Gram-negative bacteremia due to chronic infected PICC line.
Fever on admission with no evidence of sepsis (tachycardia likely fever mediated)
Conditions prior to admission:
1. Mast cell activation syndrome.
2. Chronic dystonic reaction.
3. Orthostatic hypotension with postural orthostatic and
tachycardia syndrome.
4. Dopa sensitive dystonia.
5. Steroid-induced diabetes.
6. Prior history of deep venous thrombosis and pulmonary embolism.
7. Chronic pain syndrome.
8. Migraine headaches.
9. Gastroesophageal reflux disease.
10. Benzodiazepine and opiate dependence.
11. Restless legs syndrome.
12. Insomnia.
13. History of vocal cord dysfunction.
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
15. Gastroparesis.
16. 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
17. 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
Plan:
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
PICC line removed and PICC line replaced on 09/23
Repeated blood cultures negative on 09/20 but no other cultures obtained
Finished cipro on 10/06/23 (was on 750mg BID)
GJ tube in place with buried bumper.
Replaced by interventional radiology on 09/22
HX Recurrent Anaphylaxis / Mast Cell Flare Episodes on chronic steroids
Mast Cell Activation Syndrome
DOPA-Responsive Dystonia
-follows with Dr. Lizabeth Villanueva at [facility] hematology.
- Continue Ativan
�-cont Gleevac ,steroids
�--Levalbuterol as needed, to do her eyedrops
-Continue carbidopa levodopa
-prednisone continued
-Outpatient IV Benadryl drip at 15 milligram an hour upon presentation. As discussed with primary frame trimmer Dr. Mora plan is to slowly taper.
dystonia/movement disorder-patient apparently has dystonic features with her mast cell activation syndrome. I could not find in literature as a routine clinical presentation but according to patient apparently this is very unusual feature which was
noted in few other patients . She is on IV Benadryl pump at 15 mg/h at home. Yesterday she had 2 episodes of them requiring as needed Ativan. In view of increased need of breakthrough medication consulted neurology.
-baclofen continued
-sinemet continued
-episodes with vasovagal response when trying to have a BM - start standing miralax and colace BID
Chronic pain syndrome-on high doses of narcotics (chronic opioid use with dependence) including p.o. Dilaudid and Suboxone at home. Again unclear the source of her pain.
GERD
-famotidine continued
-acipHex continued
-simethicone continued
iron def anemia
-ferrous sulfate continued
hxt of tachycardia
-EKG with sinus tachycardia
-propranolol continued
Chronic Nausea / Esophageal Dysmotility/gastroparesis
History GJ tube
�- Continue diet as tolerated.
�- Continue G-tube to gravity for chronic nausea.
�- Meds via J-tube.
-Zofran every 8 hours as needed
-Continue Pepcid
-emend continued
- PEG tube site without any signs of cellulitis. CT of the abdomen pelvis shows no subcutaneous collection around the PEG tube and it is in place.
Acute fractures of the left 6 anterolateral 6th and 7th ribs
-Suspect from recent fall on 10/03
-10/25 complains of pain on the posterolateral lower ribs
-Continue lidocaine patch, add heating packs
Steroid-Induced DM-II--
She remains on steady dose of prednisone
Blood glucose remains marginal
Monitor oral intake
Reduce Lantus and NovoLog AC
Continue serial Accu-Cheks with basal bolus protocol.
s/p fall overnight 10/03-10/04
imaging negative for bleed or fracture
one more dose IV dilaudid now
Steroid-Induced Osteoporosis
Chronic Pain Syndrome secondary to the above on chronic opiates
�- Continue buprenorphine 2 mg 4 times daily , Dilaudid 8 mg as needed
�- PT / OT evaluations.
�- Follow-up with usual mechanical engineering specialist after discharge.
allergy induced asthma
chronic hypoxic respiratory failure--on O2
-albuterol continued
-budesonide continued
-cetirizine continued
-cromolyn continued
Migraine Hx
ODT Nurtec as needed
Restless leg syndrome
-Continue baclofen
History of DVT/PE
#Takes subcu Lovenox 100 mg twice daily
DNR on admission
Disposition: Discussion with primary frame trimmer Dr. Ethan Villanueva on 10/09. Discussed possibility of attempting weaning Benadryl drip likely could be done as outpatient. With current family social situation, unfortunately there is no options
for disposition other than home on IV infusion. Possibility of a transfer to [facility] discussed as well, although according to Dr. Villanueva hospital administration declined services due to complexity. Also discussed possibility of
transfer to tertiary center ([facility] declined in the past).
Anticipated Discharge: 24 - 48 hours
Subjective/Interval History
-
Date of Service: October 27, 2023
Objective Data
-
Vital Signs:
Vital Signs
Temp Pulse Resp BP Pulse Ox
98.2 F 100 16 98/86 96
10/27/23 11:55 10/27/23 12:00 10/27/23 12:00 10/27/23 12:00 10/27/23 12:00
I&O
10/26/23 10/27/23 10/28/23
06:59 06:59 06:59
Intake Total 804 / 804 770 / 770 480 / 480
Output Total 150 / 150 50 / 50
Balance 654 / 654 720 / 720 480 / 480
Physical Exam
-
General: Well Developed and No Apparent Distress
HEENT: Normocephalic, Atraumatic and Moist Mucous Membranes
Respiratory: Clear to Auscultation
Cardiac: Regular Rhythm and S1/S2; Negative Murmur, Rub or Gallop
GI: Soft, Nontender, Nondistended and Normal Bowel Sounds; Negative Organomegaly
Rectal: Deferred by Provider
Musculoskeletal: No Clubbing, No Cyanosis and No Edema
Skin: Negative Rash
Neuro: Nonfocal/Grossly Intact
--- NOTE | 2023-10-27 15:53 | CM ---
CM reviewed chart- ADC >48 hours
Pt currently in IMU and slow taper of benadryl drip
New PT/OT orders requested due to IMU transfer
sales activity manager from [address] assisting with coordination of new housing for pt
Pt's mother not willing to have her return to home due to high level of care needs
Discharge Disposition- home with home infusion/ 09/12 private duty once new home is set up and secured
--- NOTE | 2023-10-27 16:34 | PTCARENOTE ---
Patient's step-mother brought in patient's ketotifen from home (refilled prescription). She stated it is a 3 month supply but did not want to leave the full amount here; she wanted to combine it with patient's other ketotifen. Both supplies taken to
pharmacist in ICU to see; instructed that step-mother can combine to leave the amount desired and continue to use current bar code.
[2023-10-27] MEDS: ZYRTEC 10 MG TUBE ×2 (17:43→21:56)
[2023-10-27 17:56] LABS: Glucose - Point of Care 114 mg/dl (70-99)
--- NOTE | 2023-10-27 20:26 | PTCARENOTE ---
Received pt from anisa JULIEN. Pt is AAOx3, anxious. NSR/sinus tach on the monitor. Pt weaned to 2L NC O2 sat 93%, lungs diminished. G/J tube intact. Pt incont of urine. Benadryl gtt infusing @ 12 ml/hr. Pt is laying comfortable in bed with call sanchez
in reach.
[2023-10-27 21:33] LABS: Glucose - Point of Care 136 mg/dl (70-99)
[2023-10-27] MEDS: FEOSOL 325 MG PO (21:55)
[2023-10-28] VITALS (12 sets, daily range): BP systolic 105–132; BP diastolic 63–90
[2023-10-28] MEDS: BENADRYL 25 MG IV ×5 (01:43→23:01)
[2023-10-28] MEDS: ATIVAN 2 MG SL ×4 (01:43→19:36)
[2023-10-28] MEDS: GASTROCROM 300 MG PO ×4 (05:26→22:10)
[2023-10-28] MEDS: LIORESAL 10 MG TUBE ×3 (05:26→22:10)
[2023-10-28] MEDS: SINEMET 25-100 1.5 TABLET TUBE ×2 (05:26→09:02)
[2023-10-28] MEDS: PULMICORT 0.5 MG INH ×2 (08:14→19:37)
[2023-10-28 08:26] LABS: Glucose - Point of Care 93 mg/dl (70-99)
[2023-10-28] MEDS: NOVOLOG FLEXPEN-LOW RESISTANCE SC ×2 (08:56→12:03)
[2023-10-28] MEDS: NSS 1000 IV (08:57)
[2023-10-28] MEDS: NOVOLOG FLEXPEN 3 UNITS SC ×3 (08:57→17:06)
[2023-10-28] MEDS: MIRALAX 17 GRAMS PO (08:58)
[2023-10-28] MEDS: LIDOCAINE 4% PATCH 1 PATCH TOPICAL (08:58)
[2023-10-28] MEDS: LOVENOX 100 MG SC ×2 (09:00→19:32)
[2023-10-28] MEDS: LANTUS 0.1 UNITS SC (09:00)
[2023-10-28] MEDS: ZADITOR 1 DROP BOTH EYES ×2 (09:01→19:33)
[2023-10-28] MEDS: NSS (PRESERVATIVE FREE) 6 ML IV ×2 (09:02→19:32)
[2023-10-28] MEDS: PEPCID 40 MG IV ×2 (09:02→19:33)
[2023-10-28] MEDS: INDERAL 10 MG TUBE ×3 (09:03→22:10)
[2023-10-28] MEDS: ZOFRAN 4 MG IV ×3 (09:03→23:01)
[2023-10-28] MEDS: COLACE 100 MG PO ×2 (09:03→19:32)
[2023-10-28] MEDS: SUBUTEX 2 MG SL ×4 (09:03→22:10)
[2023-10-28] MEDS: CLARITIN 10 MG PO (09:03)
[2023-10-28] MEDS: HYDREA 500 MG PO ×2 (09:04→19:32)
[2023-10-28] MEDS: DELTASONE 10 MG TUBE ×2 (09:04→19:32)
[2023-10-28] MEDS: VITAMIN B1 100 MG TUBE (09:04)
[2023-10-28] MEDS: NON-FORMULARY ITEM NASAL (09:05)
[2023-10-28] MEDS: DESENEX/MITRAZOL/ZEASORB 1 APPLIC TOPICAL ×2 (09:05→19:32)
[2023-10-28] MEDS: NON-FORMULARY ITEM 1 MG PO ×2 (09:06→19:34)
[2023-10-28] MEDS: NON-FORMULARY ITEM 1 UNIT PO ×2 (09:07→22:09)
[2023-10-28] MEDS: NON-FORMULARY ITEM 80 MG PO (09:07)
[2023-10-28 12:00] LABS: Glucose - Point of Care 142 mg/dl (70-99)
--- NOTE | 2023-10-28 12:15 | PTCARENOTE ---
Patient's timothy coordinator from her insurance company here to see patient; she asked to speak with CM. Fely Yoko made aware via [employer] text and requested her phone number to call. [employer] text with phone number and picture of business call sent.
Patient downgraded to telemetry. Assigned to room 2129; room not ready as of yet.
Patient discharged to [facility] when bed available; report given to transfer center. They do not have a bed for her at this time.
--- NOTE | 2023-10-28 13:16 | CM ---
Received notification from IMU RN that patient wanted to talk to CM. Placed a call to the number she provided, however had to leave a voice mail message. Will await return call.
Plan: Case management will continue to follow and assist with discharge planning. Patient transferring to [facility] as soon as there is a bed available.
[2023-10-28] MEDS: SINEMET 25-100 2 TABLET TUBE ×2 (13:38→17:06)
[2023-10-28] MEDS: NON-FORMULARY ITEM 200 MG PO (13:43)
--- NOTE | 2023-10-28 14:50 | PTCARENOTE ---
Late entry: [facility] center called asking if insurance authorizations were started for patient's transfer. [place] text sent to Fely Babcock with name and phone number to call: Mary [phone].
--- NOTE | 2023-10-28 14:57 | RESPNOTE ---
stat albuterol neb given per Dr. Kirk. HR 160s, RR 20, SpO2 >96% on 3L O2, BS mostly clear with nonproductive cough.
[2023-10-28] MEDS: VENTOLIN NEBULES 2.5 MG INH (15:06)
[2023-10-28] MEDS: ADRENALIN 0.3 MG IM (15:10)
[2023-10-28] MEDS: BENADRYL 250 MG IV (15:25)
--- NOTE | 2023-10-28 16:08 | CM ---
Received notification from IMU community reinvestment act officer that patient has an accepting doctor at [facility]. Spoke with Mary at [facility] who stated that the accepting MD is Lara Jamil. Completed information for UR to coordinate transfer. Sent form through TT to Juan
Julianna who stated that she can facilitate transfer.
Plan: Case management will continue to follow and assist with discharge planning. Patient going to [facility].
--- NOTE | 2023-10-28 16:11 | PTCARENOTE ---
Patient had dystonic episode. She verbally requested albuterol during episode; HR 160. Dr Kirk made aware and ordered a one-time now dose. Resp therapist made aware and administered treatment. POx 96-98% on 3L oxygen. Patient also given zofran,
benadryl prn dose and ativan per request for the episode. She then verbally requested epi; administered as per prn dose. Patient also requested ice pack for her neck and side, which was applied. Currently resting in bed.
[2023-10-28] MEDS: ZYRTEC 10 MG TUBE ×2 (16:24→22:10)
--- NOTE | 2023-10-28 16:24 | W.PN.HOSP.TC ---
Today's Communication/Plan
-
10/[address] Villanueva over the phone as well as [facility] transfer center.
Complex patient. Attempt to wean off Benadryl drip over the last 2 weeks with persistent dystonic episodes
While patient is relatively stable with her current condition, given complex clinical picture requiring multi disciplinary approach not limited to medicine, hematology, allergology, as well as neuropsychiatric assessment, patient would be better
served at a tertiary facility. Patient was accepted to [facility] for transfer pending bed availability.
Assessment / Plan
Assessment / Plan
Impression:
Gram-negative bacteremia due to chronic infected PICC line.
Fever on admission with no evidence of sepsis (tachycardia likely fever mediated)
Conditions prior to admission:
1. Mast cell activation syndrome.
2. Chronic dystonic reaction.
3. Orthostatic hypotension with postural orthostatic and
tachycardia syndrome.
4. Dopa sensitive dystonia.
5. Steroid-induced diabetes.
6. Prior history of deep venous thrombosis and pulmonary embolism.
7. Chronic pain syndrome.
8. Migraine headaches.
9. Gastroesophageal reflux disease.
10. Benzodiazepine and opiate dependence.
11. Restless legs syndrome.
12. Insomnia.
13. History of vocal cord dysfunction.
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
15. Gastroparesis.
16. 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
17. 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
Plan:
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
PICC line removed and PICC line replaced on 09/23
Repeated blood cultures negative on 09/20 but no other cultures obtained
Finished cipro on 10/06/23 (was on 750mg BID)
GJ tube in place with buried bumper.
Replaced by interventional radiology on 09/22
HX Recurrent Anaphylaxis / Mast Cell Flare Episodes on chronic steroids
Mast Cell Activation Syndrome
DOPA-Responsive Dystonia
-follows with Dr. Lizabeth Villanueva at [facility] hematology.
- Continue Ativan
�-cont Gleevac ,steroids
�--Levalbuterol as needed, to do her eyedrops
-Continue carbidopa levodopa
-prednisone continued
-Outpatient IV Benadryl drip at 15 milligram an hour upon presentation. As discussed with primary physical plant employee Dr. Mora plan is to slowly taper.
dystonia/movement disorder-patient apparently has dystonic features with her mast cell activation syndrome. I could not find in literature as a routine clinical presentation but according to patient apparently this is very unusual feature which was
noted in few other patients . She is on IV Benadryl pump at 15 mg/h at home. Yesterday she had 2 episodes of them requiring as needed Ativan. In view of increased need of breakthrough medication consulted neurology.
-baclofen continued
-sinemet continued
-episodes with vasovagal response when trying to have a BM - start standing miralax and colace BID
Chronic pain syndrome-on high doses of narcotics (chronic opioid use with dependence) including p.o. Dilaudid and Suboxone at home. Again unclear the source of her pain.
GERD
-famotidine continued
-acipHex continued
-simethicone continued
iron def anemia
-ferrous sulfate continued
hxt of tachycardia
-EKG with sinus tachycardia
-propranolol continued
Chronic Nausea / Esophageal Dysmotility/gastroparesis
History GJ tube
�- Continue diet as tolerated.
�- Continue G-tube to gravity for chronic nausea.
�- Meds via J-tube.
-Zofran every 8 hours as needed
-Continue Pepcid
-emend continued
- PEG tube site without any signs of cellulitis. CT of the abdomen pelvis shows no subcutaneous collection around the PEG tube and it is in place.
Acute fractures of the left 6 anterolateral 6th and 7th ribs
-Suspect from recent fall on 10/03
-10/25 complains of pain on the posterolateral lower ribs
-Continue lidocaine patch, add heating packs
Steroid-Induced DM-II--
She remains on steady dose of prednisone
Blood glucose remains marginal
Monitor oral intake
Reduce Lantus and NovoLog AC
Continue serial Accu-Cheks with basal bolus protocol.
s/p fall overnight 10/03-10/04
imaging negative for bleed or fracture
one more dose IV dilaudid now
Steroid-Induced Osteoporosis
Chronic Pain Syndrome secondary to the above on chronic opiates
�- Continue buprenorphine 2 mg 4 times daily , Dilaudid 8 mg as needed
�- PT / OT evaluations.
�- Follow-up with usual slot service specialist after discharge.
allergy induced asthma
chronic hypoxic respiratory failure--on O2
-albuterol continued
-budesonide continued
-cetirizine continued
-cromolyn continued
Migraine Hx
ODT Nurtec as needed
Restless leg syndrome
-Continue baclofen
History of DVT/PE
#Takes subcu Lovenox 100 mg twice daily
DNR on admission
Disposition: Discussion with primary physical plant employee Dr. Ethan Villanueva on 10/09. Discussed possibility of attempting weaning Benadryl drip likely could be done as outpatient. With current family social situation, unfortunately there is no options
for disposition other than home on IV infusion. Possibility of a transfer to [facility] discussed as well, although according to Dr. Villanueva hospital administration declined services due to complexity. Also discussed possibility of
transfer to tertiary center ([facility] declined in the past).
10/[address] Villanueva over the phone as well as [facility] transfer center.
Complex patient. Attempt to wean off Benadryl drip over the last 2 weeks with persistent dystonic episodes
While patient is relatively stable with her current condition, given complex clinical picture requiring multi disciplinary approach not limited to medicine, hematology, allergology, as well as neuropsychiatric assessment, patient would be better
served at a tertiary facility. Patient was accepted to [facility] for transfer pending bed availability.
Anticipated Discharge: Within 24 hours
Subjective/Interval History
-
Date of Service: October 28, 2023
Objective Data
-
Vital Signs:
Vital Signs
Temp Pulse Resp BP Pulse Ox
98.1 F 160 20 132/83 97
10/28/23 11:55 10/28/23 14:55 10/28/23 14:55 10/28/23 12:00 10/28/23 14:55
I&O
10/27/23 10/28/23 10/29/23
06:59 06:59 06:59
Intake Total 770 / 770 1110 / 1110
Output Total 50 / 50 110 / 110 1000 / 1000
Balance 720 / 720 1000 / 1000 -1000 / -1000
Physical Exam
-
General: Well Developed and No Apparent Distress
HEENT: Normocephalic, Atraumatic and Moist Mucous Membranes
Respiratory: Clear to Auscultation
Cardiac: Regular Rhythm and S1/S2; Negative Murmur, Rub or Gallop
GI: Soft, Nontender, Nondistended and Normal Bowel Sounds; Negative Organomegaly
Rectal: Deferred by Provider
Musculoskeletal: No Clubbing, No Cyanosis and No Edema
Skin: Negative Rash
Neuro: Nonfocal/Grossly Intact
[2023-10-28 16:40] LABS: Glucose - Point of Care 174 mg/dl (70-99)
--- NOTE | 2023-10-28 16:51 | PTCARENOTE ---
Patient awakened to do accu check; stated she was able to take her po meds. She then stated, 'I assume I won't be going anywhere this evening.' Explained to patient that there is no bed at [facility] at this time.
[2023-10-28] MEDS: NOVOLOG FLEXPEN-LOW RESISTANCE 1 UNITS SC (17:05)
[2023-10-28] MEDS: DUONEB 3 ML INH (19:39)
[2023-10-28 22:01] LABS: Glucose - Point of Care 114 mg/dl (70-99)
[2023-10-28] MEDS: FEOSOL 325 MG PO (22:10)
[2023-10-29] VITALS (17 sets, daily range): BP systolic 110–147; BP diastolic 67–131; PULSE 108–110; O2SAT 96–97
[2023-10-29] MEDS: ATIVAN 2 MG SL ×3 (01:44→12:57)
[2023-10-29] MEDS: BENADRYL 25 MG IV ×3 (04:28→12:52)
[2023-10-29] MEDS: SINEMET 25-100 1.5 TABLET TUBE ×2 (05:12→10:13)
[2023-10-29] MEDS: LIORESAL 10 MG TUBE ×3 (05:12→21:13)
[2023-10-29] MEDS: GASTROCROM 300 MG PO ×4 (05:13→21:15)
[2023-10-29] MEDS: PULMICORT 0.5 MG INH ×2 (07:50→20:21)
[2023-10-29 08:15] LABS: Glucose - Point of Care 78 mg/dl (70-99)
[2023-10-29] MEDS: LIDOCAINE 4% PATCH 1 PATCH TOPICAL (08:32)
[2023-10-29] MEDS: LOVENOX 100 MG SC ×2 (08:33→21:17)
[2023-10-29] MEDS: MIRALAX 17 GRAMS PO (08:33)
[2023-10-29] MEDS: INDERAL 10 MG TUBE ×3 (08:34→21:14)
[2023-10-29] MEDS: CLARITIN 10 MG PO (08:36)
[2023-10-29] MEDS: SUBUTEX 2 MG SL ×4 (08:36→21:14)
[2023-10-29] MEDS: VITAMIN B1 100 MG TUBE (08:36)
[2023-10-29] MEDS: DESENEX/MITRAZOL/ZEASORB 1 APPLIC TOPICAL ×2 (08:37→21:12)
[2023-10-29] MEDS: HYDREA 500 MG PO ×2 (08:37→21:14)
[2023-10-29] MEDS: DELTASONE 10 MG TUBE ×2 (08:37→21:12)
[2023-10-29] MEDS: NON-FORMULARY ITEM 1 UNIT PO ×2 (08:38→21:20)
[2023-10-29] MEDS: PEPCID 40 MG IV ×2 (08:39→21:17)
[2023-10-29] MEDS: NSS (PRESERVATIVE FREE) 6 ML IV ×2 (08:40→21:17)
[2023-10-29] MEDS: NON-FORMULARY ITEM 80 MG PO (08:46)
[2023-10-29] MEDS: NON-FORMULARY ITEM 1 MG PO ×2 (08:47→21:18)
[2023-10-29] MEDS: ZOFRAN 4 MG IV (08:57)
[2023-10-29] MEDS: COLACE 100 MG PO ×2 (09:08→21:12)
[2023-10-29] MEDS: NSS 1000 IV (09:09)
[2023-10-29] MEDS: NON-FORMULARY ITEM NASAL (09:09)
[2023-10-29] MEDS: ZADITOR 1 DROP BOTH EYES ×2 (09:10→21:21)
[2023-10-29] MEDS: NOVOLOG FLEXPEN-LOW RESISTANCE SC ×3 (10:12→17:37)
[2023-10-29] MEDS: LANTUS 0.1 UNITS SC (10:13)
[2023-10-29] MEDS: NOVOLOG FLEXPEN 3 UNITS SC ×2 (10:13→12:45)
[2023-10-29 12:15] LABS: Glucose - Point of Care 133 mg/dl (70-99)
[2023-10-29] MEDS: BENADRYL 250 MG IV (12:42)
[2023-10-29] MEDS: NON-FORMULARY ITEM 200 MG PO (14:40)
[2023-10-29] MEDS: SINEMET 25-100 2 TABLET TUBE ×2 (14:40→17:38)
[2023-10-29] MEDS: BENADRYL 50 MG IV (16:01)
[2023-10-29] MEDS: DUONEB 3 ML INH ×2 (16:02→20:21)
[2023-10-29] MEDS: ATIVAN 2 MG IV (16:03)
--- NOTE | 2023-10-29 16:15 | W.PN.HOSP.TC ---
Today's Communication/Plan
-
Dystonic episodes almost on a daily basis treated with additional dose of IV lorazepam, epinephrine, hydromorphone
Pending transfer to tertiary facility.
Assessment / Plan
Assessment / Plan
Impression:
Gram-negative bacteremia due to chronic infected PICC line.
Fever on admission with no evidence of sepsis (tachycardia likely fever mediated)
Conditions prior to admission:
1. Mast cell activation syndrome.
2. Chronic dystonic reaction.
3. Orthostatic hypotension with postural orthostatic and
tachycardia syndrome.
4. Dopa sensitive dystonia.
5. Steroid-induced diabetes.
6. Prior history of deep venous thrombosis and pulmonary embolism.
7. Chronic pain syndrome.
8. Migraine headaches.
9. Gastroesophageal reflux disease.
10. Benzodiazepine and opiate dependence.
11. Restless legs syndrome.
12. Insomnia.
13. History of vocal cord dysfunction.
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
15. Gastroparesis.
16. 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
17. 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
Plan:
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
PICC line removed and PICC line replaced on 09/23
Repeated blood cultures negative on 09/20 but no other cultures obtained
Finished cipro on 10/06/23 (was on 750mg BID)
GJ tube in place with buried bumper.
Replaced by interventional radiology on 09/22
HX Recurrent Anaphylaxis / Mast Cell Flare Episodes on chronic steroids
Mast Cell Activation Syndrome
DOPA-Responsive Dystonia
-follows with Dr. Lizabeth Villanueva at [facility] hematology.
- Continue Ativan
�-cont Gleevac ,steroids
�--Levalbuterol as needed, to do her eyedrops
-Continue carbidopa levodopa
-prednisone continued
-Outpatient IV Benadryl drip at 15 milligram an hour upon presentation. As discussed with primary copy camera operator Dr. Mora plan is to slowly taper.
dystonia/movement disorder-patient apparently has dystonic features with her mast cell activation syndrome. I could not find in literature as a routine clinical presentation but according to patient apparently this is very unusual feature which was
noted in few other patients . She is on IV Benadryl pump at 15 mg/h at home. Yesterday she had 2 episodes of them requiring as needed Ativan. In view of increased need of breakthrough medication consulted neurology.
-baclofen continued
-sinemet continued
-episodes with vasovagal response when trying to have a BM - start standing miralax and colace BID
Chronic pain syndrome-on high doses of narcotics (chronic opioid use with dependence) including p.o. Dilaudid and Suboxone at home. Again unclear the source of her pain.
GERD
-famotidine continued
-acipHex continued
-simethicone continued
iron def anemia
-ferrous sulfate continued
hxt of tachycardia
-EKG with sinus tachycardia
-propranolol continued
Chronic Nausea / Esophageal Dysmotility/gastroparesis
History GJ tube
�- Continue diet as tolerated.
�- Continue G-tube to gravity for chronic nausea.
�- Meds via J-tube.
-Zofran every 8 hours as needed
-Continue Pepcid
-emend continued
- PEG tube site without any signs of cellulitis. CT of the abdomen pelvis shows no subcutaneous collection around the PEG tube and it is in place.
Acute fractures of the left 6 anterolateral 6th and 7th ribs
-Suspect from recent fall on 10/03
-10/25 complains of pain on the posterolateral lower ribs
-Continue lidocaine patch, add heating packs
Steroid-Induced DM-II--
She remains on steady dose of prednisone
Blood glucose remains marginal
Monitor oral intake
Reduce Lantus and NovoLog AC
Continue serial Accu-Cheks with basal bolus protocol.
s/p fall overnight 10/03-10/04
imaging negative for bleed or fracture
one more dose IV dilaudid now
Steroid-Induced Osteoporosis
Chronic Pain Syndrome secondary to the above on chronic opiates
�- Continue buprenorphine 2 mg 4 times daily , Dilaudid 8 mg as needed
�- PT / OT evaluations.
�- Follow-up with usual specialist field engineer after discharge.
allergy induced asthma
chronic hypoxic respiratory failure--on O2
-albuterol continued
-budesonide continued
-cetirizine continued
-cromolyn continued
Migraine Hx
ODT Nurtec as needed
Restless leg syndrome
-Continue baclofen
History of DVT/PE
#Takes subcu Lovenox 100 mg twice daily
DNR on admission
Disposition: Discussion with primary copy camera operator Dr. Ethan Villanueva on 10/09. Discussed possibility of attempting weaning Benadryl drip likely could be done as outpatient. With current family social situation, unfortunately there is no options
for disposition other than home on IV infusion. Possibility of a transfer to [facility] discussed as well, although according to Dr. Villanueva hospital administration declined services due to complexity. Also discussed possibility of
transfer to tertiary center ([facility] declined in the past).
10/[address] Villanueva over the phone as well as [facility] transfer center.
Complex patient. Attempt to wean off Benadryl drip over the last 2 weeks with persistent dystonic episodes
While patient is relatively stable with her current condition, given complex clinical picture requiring multi disciplinary approach not limited to medicine, hematology, allergology, as well as neuropsychiatric assessment, patient would be better
served at a tertiary facility. Patient was accepted to [facility] for transfer pending bed availability.
Anticipated Discharge: Within 24 hours
Subjective/Interval History
-
Date of Service: October 29, 2023
Objective Data
-
Vital Signs:
Vital Signs
Temp Pulse Resp BP Pulse Ox
98.0 F 153 19 120/84 95
10/29/23 15:20 10/29/23 16:04 10/29/23 16:04 10/29/23 14:00 10/29/23 16:04
I&O
10/28/23 10/29/23 10/30/23
06:59 06:59 06:59
Intake Total 1110 / 1110 510 / 510 440 / 440
Output Total 110 / 110 1050 / 1050
Balance 1000 / 1000 -540 / -540 440 / 440
Physical Exam
-
General: Well Developed and No Apparent Distress
HEENT: Normocephalic, Atraumatic and Moist Mucous Membranes
Respiratory: Clear to Auscultation
Cardiac: Regular Rhythm and S1/S2; Negative Murmur, Rub or Gallop
GI: Soft, Nontender, Nondistended and Normal Bowel Sounds; Negative Organomegaly
Rectal: Deferred by Provider
Musculoskeletal: No Clubbing, No Cyanosis and No Edema
Skin: Negative Rash
Neuro: Nonfocal/Grossly Intact
[2023-10-29] MEDS: DILAUDID 1 MG IV (16:20)
[2023-10-29] MEDS: NSS (PRESERVATIVE FREE) 1 ML IV (16:20)
--- NOTE | 2023-10-29 16:24 | PTCARENOTE ---
After physical therapy and having a bowel movement patient had an episode of sweating, muscle contractions, facial flushing, cough with increased heart rate and blood pressure. Dr. Kirk notified and IV Ativan, Benadryl and Dilaudid administered
with relief. Ice packs applied to neck.
[2023-10-29] MEDS: ZYRTEC 10 MG TUBE ×2 (17:31→21:13)
[2023-10-29] MEDS: NOVOLOG FLEXPEN SC (17:37)
[2023-10-29 17:42] LABS: Glucose - Point of Care 138 mg/dl (70-99)
--- NOTE | 2023-10-29 19:47 | PTCARENOTE ---
RN rounded on pt after report, pt is very tearful. Reports a nurse during the day telling her to relax her arm during her dystonia episode earlier today. Pt states she 'feels that staff believe she is faking it and that rumors are spreading'. Pt
also report feeling 'out of it' from med given for dystonia episode. Therapeutic communication and support provided. Pt thankful. Call sanchez within reach. Pt attempting to eat dinner.
[2023-10-29] MEDS: FEOSOL 325 MG PO (21:13)
[2023-10-29 22:01] LABS: Glucose - Point of Care 137 mg/dl (70-99)
[2023-10-30] VITALS (12 sets, daily range): BP systolic 101–131; BP diastolic 63–88
[2023-10-30] MEDS: BENADRYL 25 MG IV ×4 (00:16→14:51)
[2023-10-30] MEDS: ATIVAN 2 MG SL ×4 (00:16→14:50)
--- NOTE | 2023-10-30 00:29 | PTCARENOTE ---
Patient pressed call sanchez stating she is having an episode and needs her ativan and benadryl. Pt with dystonia movements; arms rigid with tremors, face flushed, eyes rolling back. Meds administered per JUL. Pt able to speak and stated this episode
feels mild and usually will be done in about 15 min. Pt thankful of staff.
[2023-10-30] MEDS: LIORESAL 10 MG TUBE ×3 (06:12→23:06)
[2023-10-30] MEDS: SINEMET 25-100 1.5 TABLET TUBE ×2 (06:12→09:23)
[2023-10-30] MEDS: ZOFRAN 4 MG IV ×2 (06:22→18:03)
[2023-10-30] MEDS: PULMICORT 0.5 MG INH ×2 (07:12→19:33)
[2023-10-30 08:06] LABS: Glucose - Point of Care 111 mg/dl (70-99)
[2023-10-30] MEDS: GASTROCROM 300 MG PO ×4 (08:35→23:06)
[2023-10-30] MEDS: BENADRYL 250 MG IV (09:20)
[2023-10-30] MEDS: LANTUS 0.1 UNITS SC (09:21)
[2023-10-30] MEDS: LIDOCAINE 4% PATCH 1 PATCH TOPICAL (09:21)
[2023-10-30] MEDS: INDERAL 10 MG TUBE ×3 (09:24→23:07)
[2023-10-30] MEDS: SUBUTEX 2 MG SL ×4 (09:24→23:07)
[2023-10-30] MEDS: DELTASONE 10 MG TUBE ×2 (09:25→19:15)
[2023-10-30] MEDS: CLARITIN 10 MG PO (09:25)
[2023-10-30] MEDS: VITAMIN B1 100 MG TUBE (09:26)
[2023-10-30] MEDS: PEPCID 40 MG IV ×2 (09:27→19:19)
[2023-10-30] MEDS: MIRALAX 17 GRAMS PO (09:27)
[2023-10-30] MEDS: LOVENOX 100 MG SC ×2 (09:27→19:17)
[2023-10-30] MEDS: HYDREA 500 MG PO ×2 (09:28→19:17)
[2023-10-30] MEDS: COLACE 100 MG PO ×2 (09:29→19:18)
[2023-10-30] MEDS: DESENEX/MITRAZOL/ZEASORB 1 APPLIC TOPICAL ×2 (09:29→19:26)
[2023-10-30] MEDS: NON-FORMULARY ITEM 80 MG PO (09:31)
[2023-10-30] MEDS: NON-FORMULARY ITEM 1 UNIT PO (09:33)
[2023-10-30] MEDS: NON-FORMULARY ITEM 1 MG PO ×2 (09:33→19:22)
[2023-10-30] MEDS: NON-FORMULARY ITEM NASAL (09:34)
[2023-10-30] MEDS: NSS (PRESERVATIVE FREE) 6 ML IV ×2 (09:35→19:21)
[2023-10-30] MEDS: ZADITOR 1 DROP BOTH EYES ×2 (09:35→19:21)
[2023-10-30] MEDS: NOVOLOG FLEXPEN 3 UNITS SC ×2 (09:37→13:04)
[2023-10-30] MEDS: NSS 1000 IV (09:37)
[2023-10-30] MEDS: NOVOLOG FLEXPEN-LOW RESISTANCE SC ×3 (09:38→18:28)
--- NOTE | 2023-10-30 12:00 | PTCARENOTE ---
Assumed care of pt from night RN, pt AAOx3, makes needs known. Pt medication compliant. prn Ativan and Benadryl administered at 1040. Pt grossly incontinent of urine, agreeable to purewick. Incontinence care completed and purewick place, draining
clear yellow urine at this time. Pt able to reposition self in bed. Do c/o rib pain r/t fractures, Lidocaine patch intact to L side. Pt pending transfer to [facility], awaiting room assignment Will continue to monitor through shift.
[2023-10-30 12:07] LABS: Glucose - Point of Care 123 mg/dl (70-99)
--- NOTE | 2023-10-30 13:24 | CM ---
Call placed to [facility] ( ) , spoke to Caren. I made Caren aware that we received an approved auth from [facility] , auth [id number], for an initial approval of 7 days. I provided my contact number in case there
were any questions. Caren stated they would call the [employer] [employer] as soon as a bed is available . Caren could not provide an estimated timeframe for when a bed would be available, but stated they would call as soon as they have one available. Update
to CM.
--- NOTE | 2023-10-30 13:28 | CM ---
Addendum entered by Luci Garcia RN 10/30/23 14:52:
Dr Kirk decided patient should stay on potline monitor for transport and go by ALS ambulance, that can also support her needs if she has a dystonic reaction en route. Guillermo program manager transportation, said she will arrange ALS ambulance once we have
confirmation of date she is leaving/bed assigned. Nurse and unit controller were updated.
Plan transfer to [facility] by ALS ambulance when bed is available.
Original Note:
Patient with Hx Mast Cell Activation Syndrome, chronic pain syndrome with Dx bacteremia secondary to PICC line, dystonia/movement disorder, Acute fractures of the left 6 anterolateral 6th and 7th ribs. O2 2L. Receiving Subutex, IV Benadryl gtt, SL
Ativan prn. PT recommends HH. OT recommends skilled vs home.
Message from Juan, Utilization Review; approved 7 days per Jax at [facility]- October 29-11/04. LCD/NRD 11/04. Fax clinical to [phone]. auth # [id number].
Spoke with Karyn, s [facility] (ph [phone]); provided auth information which she will relay to the [facility].
Message from Brigida Leavitt, Director; she spoke to Caren at the [place] transfer center and provided the auth number and number of days initially approved. She said once they have a bed they will call the community life director to make her aware. Caren was not
aware if they have an available bed, but will call as soon as they do.
Met with patient who had called [employer], her insurance company, today and was already aware she was approved for transfer to [facility] [facility]. Patient says she is okay with being transferred to [facility]. Provided update that we are waiting for their
transfer center to let us know when a bed is available.
Plan transfer to [facility] by ambulance when bed is available.
[2023-10-30] MEDS: NON-FORMULARY ITEM 200 MG PO (13:39)
[2023-10-30] MEDS: SINEMET 25-100 2 TABLET TUBE ×2 (13:40→19:14)
--- NOTE | 2023-10-30 14:55 | W.PN.HOSP.TC ---
Today's Communication/Plan
-
Accepted for transfer to tertiary hospital
Assessment / Plan
Assessment / Plan
Impression:
Gram-negative bacteremia due to chronic infected PICC line.
Fever on admission with no evidence of sepsis (tachycardia likely fever mediated)
Conditions prior to admission:
1. Mast cell activation syndrome.
2. Chronic dystonic reaction.
3. Orthostatic hypotension with postural orthostatic and
tachycardia syndrome.
4. Dopa sensitive dystonia.
5. Steroid-induced diabetes.
6. Prior history of deep venous thrombosis and pulmonary embolism.
7. Chronic pain syndrome.
8. Migraine headaches.
9. Gastroesophageal reflux disease.
10. Benzodiazepine and opiate dependence.
11. Restless legs syndrome.
12. Insomnia.
13. History of vocal cord dysfunction.
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
15. Gastroparesis.
16. 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
17. 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
Plan:
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
PICC line removed and PICC line replaced on 09/23
Repeated blood cultures negative on 09/20 but no other cultures obtained
Finished cipro on 10/06/23 (was on 750mg BID)
GJ tube in place with buried bumper.
Replaced by interventional radiology on 09/22
HX Recurrent Anaphylaxis / Mast Cell Flare Episodes on chronic steroids
Mast Cell Activation Syndrome
DOPA-Responsive Dystonia
-follows with Dr. Lizabeth Villanueva at [facility] hematology.
- Continue Ativan
�-cont Gleevac ,steroids
�--Levalbuterol as needed, to do her eyedrops
-Continue carbidopa levodopa
-prednisone continued
-Outpatient IV Benadryl drip at 15 milligram an hour upon presentation. As discussed with primary incident analyst Dr. Mora plan is to slowly taper.
dystonia/movement disorder-patient apparently has dystonic features with her mast cell activation syndrome. I could not find in literature as a routine clinical presentation but according to patient apparently this is very unusual feature which was
noted in few other patients . She is on IV Benadryl pump at 15 mg/h at home. Yesterday she had 2 episodes of them requiring as needed Ativan. In view of increased need of breakthrough medication consulted neurology.
-baclofen continued
-sinemet continued
-episodes with vasovagal response when trying to have a BM - start standing miralax and colace BID
Chronic pain syndrome-on high doses of narcotics (chronic opioid use with dependence) including p.o. Dilaudid and Suboxone at home. Again unclear the source of her pain.
GERD
-famotidine continued
-acipHex continued
-simethicone continued
iron def anemia
-ferrous sulfate continued
hxt of tachycardia
-EKG with sinus tachycardia
-propranolol continued
Chronic Nausea / Esophageal Dysmotility/gastroparesis
History GJ tube
�- Continue diet as tolerated.
�- Continue G-tube to gravity for chronic nausea.
�- Meds via J-tube.
-Zofran every 8 hours as needed
-Continue Pepcid
-emend continued
- PEG tube site without any signs of cellulitis. CT of the abdomen pelvis shows no subcutaneous collection around the PEG tube and it is in place.
Acute fractures of the left 6 anterolateral 6th and 7th ribs
-Suspect from recent fall on 10/03
-10/25 complains of pain on the posterolateral lower ribs
-Continue lidocaine patch, add heating packs
Steroid-Induced DM-II--
She remains on steady dose of prednisone
Blood glucose remains marginal
Monitor oral intake
Reduce Lantus and NovoLog AC
Continue serial Accu-Cheks with basal bolus protocol.
s/p fall overnight 10/03-10/04
imaging negative for bleed or fracture
one more dose IV dilaudid now
Steroid-Induced Osteoporosis
Chronic Pain Syndrome secondary to the above on chronic opiates
�- Continue buprenorphine 2 mg 4 times daily , Dilaudid 8 mg as needed
�- PT / OT evaluations.
�- Follow-up with usual crop pest control specialist after discharge.
allergy induced asthma
chronic hypoxic respiratory failure--on O2
-albuterol continued
-budesonide continued
-cetirizine continued
-cromolyn continued
Migraine Hx
ODT Nurtec as needed
Restless leg syndrome
-Continue baclofen
History of DVT/PE
#Takes subcu Lovenox 100 mg twice daily
DNR on admission
Disposition: Discussion with primary incident analyst Dr. Ethan Villanueva on 10/09. Discussed possibility of attempting weaning Benadryl drip likely could be done as outpatient. With current family social situation, unfortunately there is no options
for disposition other than home on IV infusion. Possibility of a transfer to [facility] discussed as well, although according to Dr. Villanueva hospital administration declined services due to complexity. Also discussed possibility of
transfer to tertiary center ([facility] declined in the past).
10/[address] Villanueva over the phone as well as [facility] transfer center.
Complex patient. Attempt to wean off Benadryl drip over the last 2 weeks with persistent dystonic episodes
While patient is relatively stable with her current condition, given complex clinical picture requiring multi disciplinary approach not limited to medicine, hematology, allergology, as well as neuropsychiatric assessment, patient would be better
served at a tertiary facility. Patient was accepted to [facility] for transfer pending bed availability.
Anticipated Discharge: Within 24 hours
Subjective/Interval History
-
Date of Service: October 30, 2023
Objective Data
-
Vital Signs:
Vital Signs
Temp Pulse Resp BP Pulse Ox
98.5 F 118 21 123/78 94
10/30/23 11:23 10/30/23 14:00 10/30/23 14:00 10/30/23 14:00 10/30/23 14:00
I&O
10/29/23 10/30/23 10/31/23
06:59 06:59 06:59
Intake Total 510 / 510 1584 / 1584 720 / 720
Output Total 1050 / 1050
Balance -540 / -540 1584 / 1584 720 / 720
Physical Exam
-
General: Well Developed and No Apparent Distress
HEENT: Normocephalic, Atraumatic and Moist Mucous Membranes
Respiratory: Clear to Auscultation
Cardiac: Regular Rhythm and S1/S2; Negative Murmur, Rub or Gallop
GI: Soft, Nontender, Nondistended and Normal Bowel Sounds; Negative Organomegaly
Rectal: Deferred by Provider
Musculoskeletal: No Clubbing, No Cyanosis and No Edema
Skin: Negative Rash
Neuro: Nonfocal/Grossly Intact
[2023-10-30] MEDS: ATIVAN 2 MG IV (17:34)
[2023-10-30] MEDS: NSS (PRESERVATIVE FREE) 1 ML IV (17:34)
[2023-10-30] MEDS: BENADRYL 50 MG IV (17:35)
[2023-10-30] MEDS: ADRENALIN 0.3 MG IM (17:35)
--- NOTE | 2023-10-30 17:42 | PTCARENOTE ---
Called to pt's room as she was having an 'episode', diaphoretic, flushed, coughing, with 'seizure-like' activity noted. Dr. Le notified and 1x dose of Ativan 2mg IV and Benadryl 50mg IV ordered and administered. PRN Epi 0.3 administered IM as
well. Pt still appears to be in distress, but reports meds are beginning to help. This RN remains at bedside.
--- NOTE | 2023-10-30 18:09 | PTCARENOTE ---
Pt continues to recover from episode, c/o nausea and pain, agreeable to prn Zofran and the Subutex SL. Ice pack and cool compress given to pt. Pt did not want her other meds at this time until episode passes. Will continue to monitor through shift.
[2023-10-30] MEDS: NOVOLOG FLEXPEN SC ×2 (18:29→19:14)
[2023-10-30 18:30] LABS: Glucose - Point of Care 144 mg/dl (70-99)
[2023-10-30] MEDS: INDERAL TUBE (18:43)
[2023-10-30] MEDS: GASTROCROM PO (18:43)
[2023-10-30] MEDS: ZYRTEC 10 MG TUBE ×2 (19:14→23:08)
[2023-10-30] MEDS: NON-FORMULARY ITEM 20 UNIT PO (19:23)
[2023-10-30] MEDS: DUONEB 3 ML INH (19:34)
[2023-10-30] MEDS: TYLENOL 650 MG PO (19:40)
[2023-10-30] MEDS: COMPAZINE 5 MG IV (21:25)
[2023-10-30] MEDS: DILAUDID 8 MG PO (21:26)
[2023-10-30 22:29] LABS: Glucose - Point of Care 144 mg/dl (70-99)
[2023-10-30] MEDS: FEOSOL 325 MG PO (23:06)
[2023-10-31] VITALS (11 sets, daily range): BP systolic 96–138; BP diastolic 62–102; PULSE 131
[2023-10-31] MEDS: ATIVAN 2 MG SL ×5 (03:10→22:28)
[2023-10-31] MEDS: ZOFRAN 4 MG IV (03:11)
[2023-10-31] MEDS: BENADRYL 25 MG IV ×6 (03:12→22:29)
[2023-10-31] MEDS: BENADRYL 250 MG IV ×2 (03:14→22:28)
[2023-10-31] MEDS: SINEMET 25-100 1.5 TABLET TUBE ×2 (06:24→10:08)
[2023-10-31] MEDS: LIORESAL 10 MG TUBE ×3 (06:24→22:14)
[2023-10-31] MEDS: PULMICORT 0.5 MG INH ×2 (08:06→19:44)
[2023-10-31] MEDS: DUONEB 3 ML INH (08:06)
[2023-10-31] MEDS: LIDOCAINE 4% PATCH 1 PATCH TOPICAL (08:14)
[2023-10-31] MEDS: LOVENOX 100 MG SC ×2 (08:14→19:58)
[2023-10-31] MEDS: INDERAL 10 MG TUBE ×3 (08:15→22:14)
[2023-10-31] MEDS: DELTASONE 10 MG TUBE ×2 (08:15→19:59)
[2023-10-31] MEDS: LANTUS 0.1 UNITS SC (08:15)
[2023-10-31] MEDS: PEPCID 40 MG IV ×2 (08:16→20:04)
[2023-10-31] MEDS: GASTROCROM 300 MG PO ×4 (08:17→22:13)
[2023-10-31] MEDS: VITAMIN B1 100 MG TUBE (08:18)
[2023-10-31] MEDS: CLARITIN 10 MG PO (08:18)
[2023-10-31] MEDS: COLACE 100 MG PO ×2 (08:18→19:59)
[2023-10-31] MEDS: SUBUTEX 2 MG SL ×4 (08:18→22:14)
[2023-10-31] MEDS: MIRALAX 17 GRAMS PO (08:18)
[2023-10-31] MEDS: HYDREA 500 MG PO ×2 (08:18→19:59)
[2023-10-31] MEDS: NOVOLOG FLEXPEN-LOW RESISTANCE SC ×3 (08:19→18:03)
[2023-10-31] MEDS: NOVOLOG FLEXPEN 3 UNITS SC ×3 (08:19→18:03)
[2023-10-31] MEDS: NON-FORMULARY ITEM PO (08:20)
[2023-10-31] MEDS: NON-FORMULARY ITEM 1 MG PO ×2 (08:21→20:03)
[2023-10-31] MEDS: DESENEX/MITRAZOL/ZEASORB 1 APPLIC TOPICAL ×2 (08:21→20:07)
[2023-10-31] MEDS: NON-FORMULARY ITEM 1 UNIT PO ×2 (08:23→20:00)
[2023-10-31] MEDS: NON-FORMULARY ITEM NASAL (08:24)
[2023-10-31 08:25] LABS: Glucose - Point of Care 103 mg/dl (70-99)
[2023-10-31] MEDS: ZADITOR 1 DROP BOTH EYES ×2 (08:25→20:02)
[2023-10-31] MEDS: NSS (PRESERVATIVE FREE) 6 ML IV ×2 (08:25→20:07)
[2023-10-31] MEDS: NSS 1000 IV (08:26)
[2023-10-31] MEDS: NON-FORMULARY ITEM 80 MG PO (10:56)
[2023-10-31 12:08] LABS: Glucose - Point of Care 131 mg/dl (70-99)
[2023-10-31] MEDS: SINEMET 25-100 2 TABLET TUBE ×2 (13:13→17:34)
[2023-10-31] MEDS: NON-FORMULARY ITEM 200 MG PO (13:15)
--- NOTE | 2023-10-31 15:38 | W.PN.HOSP.TC ---
Today's Communication/Plan
-
Continue current management.
Pending transfer to tertiary facility.
Assessment / Plan
Assessment / Plan
Impression:
Gram-negative bacteremia due to chronic infected PICC line.
Fever on admission with no evidence of sepsis (tachycardia likely fever mediated)
Conditions prior to admission:
1. Mast cell activation syndrome.
2. Chronic dystonic reaction.
3. Orthostatic hypotension with postural orthostatic and
tachycardia syndrome.
4. Dopa sensitive dystonia.
5. Steroid-induced diabetes.
6. Prior history of deep venous thrombosis and pulmonary embolism.
7. Chronic pain syndrome.
8. Migraine headaches.
9. Gastroesophageal reflux disease.
10. Benzodiazepine and opiate dependence.
11. Restless legs syndrome.
12. Insomnia.
13. History of vocal cord dysfunction.
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
15. Gastroparesis.
16. 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
17. 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
Plan:
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
PICC line removed and PICC line replaced on 09/23
Repeated blood cultures negative on 09/20 but no other cultures obtained
Finished cipro on 10/06/23 (was on 750mg BID)
GJ tube in place with buried bumper.
Replaced by interventional radiology on 09/22
HX Recurrent Anaphylaxis / Mast Cell Flare Episodes on chronic steroids
Mast Cell Activation Syndrome
DOPA-Responsive Dystonia
-follows with Dr. Lizabeth Villanueva at [facility] hematology.
- Continue Ativan
�-cont Gleevac ,steroids
�--Levalbuterol as needed, to do her eyedrops
-Continue carbidopa levodopa
-prednisone continued
-Outpatient IV Benadryl drip at 15 milligram an hour upon presentation. As discussed with primary semiconductor assembler Dr. Mora plan is to slowly taper.
dystonia/movement disorder-patient apparently has dystonic features with her mast cell activation syndrome. I could not find in literature as a routine clinical presentation but according to patient apparently this is very unusual feature which was
noted in few other patients . She is on IV Benadryl pump at 15 mg/h at home. Yesterday she had 2 episodes of them requiring as needed Ativan. In view of increased need of breakthrough medication consulted neurology.
-baclofen continued
-sinemet continued
-episodes with vasovagal response when trying to have a BM - start standing miralax and colace BID
Chronic pain syndrome-on high doses of narcotics (chronic opioid use with dependence) including p.o. Dilaudid and Suboxone at home. Again unclear the source of her pain.
GERD
-famotidine continued
-acipHex continued
-simethicone continued
iron def anemia
-ferrous sulfate continued
hxt of tachycardia
-EKG with sinus tachycardia
-propranolol continued
Chronic Nausea / Esophageal Dysmotility/gastroparesis
History GJ tube
�- Continue diet as tolerated.
�- Continue G-tube to gravity for chronic nausea.
�- Meds via J-tube.
-Zofran every 8 hours as needed
-Continue Pepcid
-emend continued
- PEG tube site without any signs of cellulitis. CT of the abdomen pelvis shows no subcutaneous collection around the PEG tube and it is in place.
Acute fractures of the left 6 anterolateral 6th and 7th ribs
-Suspect from recent fall on 10/03
-10/25 complains of pain on the posterolateral lower ribs
-Continue lidocaine patch, add heating packs
Steroid-Induced DM-II--
She remains on steady dose of prednisone
Blood glucose remains marginal
Monitor oral intake
Reduce Lantus and NovoLog AC
Continue serial Accu-Cheks with basal bolus protocol.
s/p fall overnight 10/03-10/04
imaging negative for bleed or fracture
one more dose IV dilaudid now
Steroid-Induced Osteoporosis
Chronic Pain Syndrome secondary to the above on chronic opiates
�- Continue buprenorphine 2 mg 4 times daily , Dilaudid 8 mg as needed
�- PT / OT evaluations.
�- Follow-up with usual clinical appeals specialist after discharge.
allergy induced asthma
chronic hypoxic respiratory failure--on O2
-albuterol continued
-budesonide continued
-cetirizine continued
-cromolyn continued
Migraine Hx
ODT Nurtec as needed
Restless leg syndrome
-Continue baclofen
History of DVT/PE
#Takes subcu Lovenox 100 mg twice daily
DNR on admission
Disposition: Discussion with primary semiconductor assembler Dr. Ethan Villanueva on 10/09. Discussed possibility of attempting weaning Benadryl drip likely could be done as outpatient. With current family social situation, unfortunately there is no options
for disposition other than home on IV infusion. Possibility of a transfer to [facility] discussed as well, although according to Dr. Villanueva hospital administration declined services due to complexity. Also discussed possibility of
transfer to tertiary center ([facility] declined in the past).
10/[address] Villanueva over the phone as well as [facility] transfer center.
Complex patient. Attempt to wean off Benadryl drip over the last 2 weeks with persistent dystonic episodes
While patient is relatively stable with her current condition, given complex clinical picture requiring multi disciplinary approach not limited to medicine, hematology, allergology, as well as neuropsychiatric assessment, patient would be better
served at a tertiary facility. Patient was accepted to [facility] for transfer pending bed availability.
Anticipated Discharge: Within 24 hours
Subjective/Interval History
-
Date of Service: October 31, 2023
Objective Data
-
Vital Signs:
Vital Signs
Temp Pulse Resp BP Pulse Ox
98.5 F 118 17 123/78 96
10/31/23 11:43 10/31/23 08:29 10/31/23 08:29 10/31/23 08:15 10/31/23 10:41
I&O
10/30/23 10/31/23 11/01/23
06:59 06:59 06:59
Intake Total 1584 / 1584 2600 / 2600 240 / 240
Output Total 2450 / 2450 650 / 650
Balance 1584 / 1584 150 / 150 -410 / -410
Physical Exam
-
General: Well Developed and No Apparent Distress
HEENT: Normocephalic, Atraumatic and Moist Mucous Membranes
Respiratory: Clear to Auscultation
Cardiac: Regular Rhythm and S1/S2; Negative Murmur, Rub or Gallop
GI: Soft, Nontender, Nondistended and Normal Bowel Sounds; Negative Organomegaly
Rectal: Deferred by Provider
Musculoskeletal: No Clubbing, No Cyanosis and No Edema
Skin: Negative Rash
Neuro: Nonfocal/Grossly Intact
[2023-10-31] MEDS: ZYRTEC 10 MG TUBE ×2 (17:35→22:13)
[2023-10-31 18:13] LABS: Glucose - Point of Care 98 mg/dl (70-99)
--- NOTE | 2023-10-31 21:13 | PTCARENOTE ---
can not verify of vitals captured from today 10/31/23
[2023-10-31] MEDS: FEOSOL 325 MG PO (22:13)
[2023-10-31 22:20] LABS: Glucose - Point of Care 174 mg/dl (70-99)
[2023-11-01] VITALS (13 sets, daily range): BP systolic 104–124; BP diastolic 63–92
[2023-11-01] MEDS: ATIVAN 2 MG SL ×5 (02:27→21:13)
[2023-11-01] MEDS: BENADRYL 25 MG IV ×5 (02:27→21:14)
--- NOTE | 2023-11-01 02:31 | PTCARENOTE ---
Addendum entered by Maurizio Vivar RN 11/01/23 03:02:
episode resolved after below interventions-
Original Note:
pt with dystonic episode- tachycardia eyes rolling seizure like activity- still able to speak and request Ativan Benadryl and ice pack- all given see mar- no epi given at this point
[2023-11-01] MEDS: LIORESAL 10 MG TUBE ×3 (05:58→21:12)
[2023-11-01] MEDS: SINEMET 25-100 1.5 TABLET TUBE ×2 (05:59→10:00)
[2023-11-01] MEDS: PULMICORT 0.5 MG INH ×2 (08:04→20:15)
[2023-11-01] MEDS: HYDREA 500 MG PO ×2 (08:32→19:19)
[2023-11-01] MEDS: MIRALAX 17 GRAMS PO (08:32)
[2023-11-01] MEDS: COLACE 100 MG PO ×2 (08:32→19:18)
[2023-11-01] MEDS: NSS (PRESERVATIVE FREE) 6 ML IV ×2 (08:33→19:22)
[2023-11-01] MEDS: LIDOCAINE 4% PATCH 1 PATCH TOPICAL (08:33)
[2023-11-01] MEDS: SUBUTEX 2 MG SL ×4 (08:33→21:12)
[2023-11-01] MEDS: LOVENOX 100 MG SC ×2 (08:34→19:20)
[2023-11-01] MEDS: LANTUS 0.1 UNITS SC (08:35)
[2023-11-01] MEDS: DELTASONE 10 MG TUBE ×2 (08:35→19:18)
[2023-11-01] MEDS: INDERAL 10 MG TUBE ×3 (08:35→21:13)
[2023-11-01] MEDS: VITAMIN B1 100 MG TUBE (08:35)
[2023-11-01] MEDS: NON-FORMULARY ITEM 80 MG PO (08:36)
[2023-11-01] MEDS: DESENEX/MITRAZOL/ZEASORB TOPICAL (08:36)
[2023-11-01] MEDS: ZADITOR 1 DROP BOTH EYES ×2 (08:36→19:26)
[2023-11-01] MEDS: CLARITIN 10 MG PO (08:36)
[2023-11-01] MEDS: NON-FORMULARY ITEM NASAL (08:37)
[2023-11-01] MEDS: NON-FORMULARY ITEM 1 MG PO ×2 (08:37→19:19)
[2023-11-01] MEDS: NON-FORMULARY ITEM 1 UNIT PO ×3 (08:38→21:11)
[2023-11-01] MEDS: NSS 1000 IV (08:38)
[2023-11-01] MEDS: PEPCID 40 MG IV ×2 (08:38→19:21)
[2023-11-01] MEDS: NOVOLOG FLEXPEN-LOW RESISTANCE SC ×3 (08:45→17:35)
[2023-11-01] MEDS: NOVOLOG FLEXPEN SC (08:53)
[2023-11-01 08:55] LABS: Glucose - Point of Care 85 mg/dl (70-99)
[2023-11-01] MEDS: GASTROCROM 300 MG PO ×3 (08:55→17:08)
[2023-11-01] MEDS: ZOFRAN 4 MG IV ×3 (09:26→21:28)
--- NOTE | 2023-11-01 10:31 | W.PN.HOSP.TC ---
Today's Communication/Plan
-
Continue current care.
Pending transfer to tertiary hospital
Assessment / Plan
Assessment / Plan
Impression:
Gram-negative bacteremia due to chronic infected PICC line.
Fever on admission with no evidence of sepsis (tachycardia likely fever mediated)
Conditions prior to admission:
1. Mast cell activation syndrome.
2. Chronic dystonic reaction.
3. Orthostatic hypotension with postural orthostatic and
tachycardia syndrome.
4. Dopa sensitive dystonia.
5. Steroid-induced diabetes.
6. Prior history of deep venous thrombosis and pulmonary embolism.
7. Chronic pain syndrome.
8. Migraine headaches.
9. Gastroesophageal reflux disease.
10. Benzodiazepine and opiate dependence.
11. Restless legs syndrome.
12. Insomnia.
13. History of vocal cord dysfunction.
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
15. Gastroparesis.
16. 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
17. 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
Plan:
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
PICC line removed and PICC line replaced on 09/23
Repeated blood cultures negative on 09/20 but no other cultures obtained
Finished cipro on 10/06/23 (was on 750mg BID)
GJ tube in place with buried bumper.
Replaced by interventional radiology on 09/22
HX Recurrent Anaphylaxis / Mast Cell Flare Episodes on chronic steroids
Mast Cell Activation Syndrome
DOPA-Responsive Dystonia
-follows with Dr. Lizabeth Villanueva at [facility] hematology.
- Continue Ativan
�-cont Gleevac ,steroids
�--Levalbuterol as needed, to do her eyedrops
-Continue carbidopa levodopa
-prednisone continued
-Outpatient IV Benadryl drip at 15 milligram an hour upon presentation. As discussed with primary ict account manager Dr. Mora plan is to slowly taper.
dystonia/movement disorder-patient apparently has dystonic features with her mast cell activation syndrome. I could not find in literature as a routine clinical presentation but according to patient apparently this is very unusual feature which was
noted in few other patients . She is on IV Benadryl pump at 15 mg/h at home. Yesterday she had 2 episodes of them requiring as needed Ativan. In view of increased need of breakthrough medication consulted neurology.
-baclofen continued
-sinemet continued
-episodes with vasovagal response when trying to have a BM - start standing miralax and colace BID
Chronic pain syndrome-on high doses of narcotics (chronic opioid use with dependence) including p.o. Dilaudid and Suboxone at home. Again unclear the source of her pain.
GERD
-famotidine continued
-acipHex continued
-simethicone continued
iron def anemia
-ferrous sulfate continued
hxt of tachycardia
-EKG with sinus tachycardia
-propranolol continued
Chronic Nausea / Esophageal Dysmotility/gastroparesis
History GJ tube
�- Continue diet as tolerated.
�- Continue G-tube to gravity for chronic nausea.
�- Meds via J-tube.
-Zofran every 8 hours as needed
-Continue Pepcid
-emend continued
- PEG tube site without any signs of cellulitis. CT of the abdomen pelvis shows no subcutaneous collection around the PEG tube and it is in place.
Acute fractures of the left 6 anterolateral 6th and 7th ribs
-Suspect from recent fall on 10/03
-10/25 complains of pain on the posterolateral lower ribs
-Continue lidocaine patch, add heating packs
Steroid-Induced DM-II--
She remains on steady dose of prednisone
Blood glucose remains marginal
Monitor oral intake
Reduce Lantus and NovoLog AC
Continue serial Accu-Cheks with basal bolus protocol.
s/p fall overnight 10/03-10/04
imaging negative for bleed or fracture
one more dose IV dilaudid now
Steroid-Induced Osteoporosis
Chronic Pain Syndrome secondary to the above on chronic opiates
�- Continue buprenorphine 2 mg 4 times daily , Dilaudid 8 mg as needed
�- PT / OT evaluations.
�- Follow-up with usual control systems specialist after discharge.
allergy induced asthma
chronic hypoxic respiratory failure--on O2
-albuterol continued
-budesonide continued
-cetirizine continued
-cromolyn continued
Migraine Hx
ODT Nurtec as needed
Restless leg syndrome
-Continue baclofen
History of DVT/PE
#Takes subcu Lovenox 100 mg twice daily
DNR on admission
Disposition: Discussion with primary ict account manager Dr. Ethan Villanueva on 10/09. Discussed possibility of attempting weaning Benadryl drip likely could be done as outpatient. With current family social situation, unfortunately there is no options
for disposition other than home on IV infusion. Possibility of a transfer to [facility] discussed as well, although according to Dr. Villanueva hospital administration declined services due to complexity. Also discussed possibility of
transfer to tertiary center ([facility] declined in the past).
10/[address] Villanueva over the phone as well as [facility] transfer center.
Complex patient. Attempt to wean off Benadryl drip over the last 2 weeks with persistent dystonic episodes
While patient is relatively stable with her current condition, given complex clinical picture requiring multi disciplinary approach not limited to medicine, hematology, allergology, as well as neuropsychiatric assessment, patient would be better
served at a tertiary facility. Patient was accepted to [facility] for transfer pending bed availability.
Anticipated Discharge: 24 - 48 hours
Subjective/Interval History
-
Date of Service: November 01, 2023
Objective Data
-
Vital Signs:
Vital Signs
Temp Pulse Resp BP Pulse Ox
98.5 F 104 16 115/77 100
11/01/23 07:34 11/01/23 08:06 11/01/23 08:05 11/01/23 08:00 11/01/23 08:06
I&O
10/31/23 11/01/23 11/02/23
06:59 06:59 06:59
Intake Total 2600 / 2600 1120 / 1120
Output Total 2450 / 2450 2750 / 2750 800 / 800
Balance 150 / 150 -1630 / -1630 -800 / -800
Physical Exam
-
General: Well Developed and No Apparent Distress
HEENT: Normocephalic, Atraumatic and Moist Mucous Membranes
Respiratory: Clear to Auscultation
Cardiac: Regular Rhythm and S1/S2; Negative Murmur, Rub or Gallop
GI: Soft, Nontender, Nondistended and Normal Bowel Sounds; Negative Organomegaly
Rectal: Deferred by Provider
Musculoskeletal: No Clubbing, No Cyanosis and No Edema
Skin: Negative Rash
Neuro: Nonfocal/Grossly Intact
[2023-11-01] MEDS: NOVOLOG FLEXPEN 3 UNITS SC ×2 (12:32→17:58)
[2023-11-01 12:50] LABS: Glucose - Point of Care 115 mg/dl (70-99)
[2023-11-01] MEDS: BENADRYL 250 MG IV (13:49)
[2023-11-01] MEDS: SINEMET 25-100 2 TABLET TUBE ×2 (13:49→17:58)
[2023-11-01] MEDS: NON-FORMULARY ITEM 200 MG PO (13:52)
--- NOTE | 2023-11-01 15:29 | PTCARENOTE ---
pt had dystonic episode today at 1320 with twitching/spasm of all extremities, and at times facial. pt was alert and responsive. medicated with ativan and benadryl PRN as requested. episode lasted approximately 20 minutes when spasms relented one
extremity at a time. pt reports fatigue post-incident
[2023-11-01] MEDS: ZYRTEC 10 MG TUBE ×2 (17:09→21:12)
[2023-11-01 17:16] LABS: Glucose - Point of Care 96 mg/dl (70-99)
[2023-11-01] MEDS: DUONEB 3 ML INH (20:15)
--- NOTE | 2023-11-01 21:00 | PTCARENOTE ---
pt AAOx3 reports rib pain but declines po Dilaudid. pt has lidocaine patch and ice pack. pt has some drainage at GJ site - site care provided. g-tube till drainage. pt has IV Benadryl running through PICC line. see MAR re: prn administration of
Ativan, Benadryl, and Zofran. pt continues on baseline 2liters O2 w/ SpO2=96-99%. pt provided w/ materials to clean up. purewick exchanged. pt resting in bed doing arts and crafts w/ call sanchez in reach
[2023-11-01] MEDS: FEOSOL 325 MG PO (21:12)
[2023-11-01] MEDS: DESENEX/MITRAZOL/ZEASORB 1 APPLIC TOPICAL (21:41)
[2023-11-01 21:43] LABS: Glucose - Point of Care 195 mg/dl (70-99)
[2023-11-02] VITALS (11 sets, daily range): BP systolic 106–150; BP diastolic 68–108
[2023-11-02] MEDS: BENADRYL 25 MG IV ×5 (00:59→21:29)
[2023-11-02] MEDS: ATIVAN 2 MG SL ×5 (01:01→21:30)
[2023-11-02] MEDS: ADRENALIN 0.3 MG IM ×2 (01:07→01:33)
--- NOTE | 2023-11-02 02:00 | PTCARENOTE ---
pt hit call sanchez and arrived to room at 0100 and pt was having an 'episode', diaphoretic, flushed, coughing, with w/ dystonic. pt was able to clearly state during her episode 'lorazepam subinguinal', 'later ice pack', and 'why is this taking so
long'. Episode lasted 50mins ended at 0150. see MAR re: administration of prn Ativan, Benadryl, and Epi 0.3 x2. after eipsode pt's eye closed and looked resting. CREDIT UNION TELLER Lizzie Jackson aware.
[2023-11-02] MEDS: SINEMET 25-100 1.5 TABLET TUBE ×2 (05:40→09:21)
[2023-11-02] MEDS: LIORESAL 10 MG TUBE ×3 (05:41→21:07)
[2023-11-02] MEDS: ZOFRAN 4 MG IV ×2 (07:25→22:10)
[2023-11-02 07:33] LABS: Glucose - Point of Care 73 mg/dl (70-99)
[2023-11-02] MEDS: PULMICORT 0.5 MG INH ×2 (08:18→20:42)
[2023-11-02] MEDS: NON-FORMULARY ITEM 1 UNIT PO ×6 (09:19→21:16)
[2023-11-02] MEDS: COLACE 100 MG PO ×2 (09:21→21:07)
[2023-11-02] MEDS: CLARITIN 10 MG PO (09:21)
[2023-11-02] MEDS: MIRALAX 17 GRAMS PO (09:21)
[2023-11-02] MEDS: INDERAL 10 MG TUBE ×3 (09:21→21:11)
[2023-11-02] MEDS: VITAMIN B1 100 MG TUBE (09:21)
[2023-11-02] MEDS: DELTASONE 10 MG TUBE ×2 (09:22→21:07)
[2023-11-02] MEDS: PEPCID 40 MG IV ×2 (09:22→21:06)
[2023-11-02] MEDS: LANTUS 0.1 UNITS SC (09:22)
[2023-11-02] MEDS: SUBUTEX 2 MG SL ×4 (09:22→21:10)
[2023-11-02] MEDS: NSS (PRESERVATIVE FREE) 6 ML IV ×2 (09:22→21:06)
[2023-11-02] MEDS: LOVENOX 100 MG SC ×2 (09:23→21:06)
[2023-11-02] MEDS: HYDREA 500 MG PO ×2 (09:23→21:10)
[2023-11-02] MEDS: LIDOCAINE 4% PATCH 1 PATCH TOPICAL (09:23)
[2023-11-02] MEDS: NON-FORMULARY ITEM 80 MG PO (09:25)
[2023-11-02] MEDS: NOVOLOG FLEXPEN-LOW RESISTANCE SC ×3 (09:27→17:33)
[2023-11-02] MEDS: BENADRYL 250 MG IV (09:27)
[2023-11-02] MEDS: NON-FORMULARY ITEM 1 MG PO ×2 (09:28→21:14)
[2023-11-02] MEDS: DESENEX/MITRAZOL/ZEASORB 1 APPLIC TOPICAL ×2 (09:29→21:10)
[2023-11-02] MEDS: NOVOLOG FLEXPEN 3 UNITS SC ×3 (09:29→17:33)
[2023-11-02] MEDS: ZADITOR 1 DROP BOTH EYES ×2 (09:30→21:11)
[2023-11-02] MEDS: TYLENOL 650 MG PO (09:35)
[2023-11-02] MEDS: NSS 1000 IV (09:36)
[2023-11-02] MEDS: NON-FORMULARY ITEM NASAL (11:57)
[2023-11-02 12:45] LABS: Glucose - Point of Care 114 mg/dl (70-99)
--- NOTE | 2023-11-02 13:31 | W.PN.HOSP.TC ---
Today's Communication/Plan
-
Pending transfer to tertiary facility
Continue current care.
Assessment / Plan
Assessment / Plan
Impression:
Gram-negative bacteremia due to chronic infected PICC line.
Fever on admission with no evidence of sepsis (tachycardia likely fever mediated)
Conditions prior to admission:
1. Mast cell activation syndrome.
2. Chronic dystonic reaction.
3. Orthostatic hypotension with postural orthostatic and
tachycardia syndrome.
4. Dopa sensitive dystonia.
5. Steroid-induced diabetes.
6. Prior history of deep venous thrombosis and pulmonary embolism.
7. Chronic pain syndrome.
8. Migraine headaches.
9. Gastroesophageal reflux disease.
10. Benzodiazepine and opiate dependence.
11. Restless legs syndrome.
12. Insomnia.
13. History of vocal cord dysfunction.
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
15. Gastroparesis.
16. 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
17. 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
Plan:
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
PICC line removed and PICC line replaced on 09/23
Repeated blood cultures negative on 09/20 but no other cultures obtained
Finished cipro on 10/06/23 (was on 750mg BID)
GJ tube in place with buried bumper.
Replaced by interventional radiology on 09/22
HX Recurrent Anaphylaxis / Mast Cell Flare Episodes on chronic steroids
Mast Cell Activation Syndrome
DOPA-Responsive Dystonia
-follows with Dr. Lizabeth Villanueva at [facility] hematology.
- Continue Ativan
�-cont Gleevac ,steroids
�--Levalbuterol as needed, to do her eyedrops
-Continue carbidopa levodopa
-prednisone continued
-Outpatient IV Benadryl drip at 15 milligram an hour upon presentation. As discussed with primary automatic pinsetter mechanic Dr. Mora plan is to slowly taper.
dystonia/movement disorder-patient apparently has dystonic features with her mast cell activation syndrome. I could not find in literature as a routine clinical presentation but according to patient apparently this is very unusual feature which was
noted in few other patients . She is on IV Benadryl pump at 15 mg/h at home. Yesterday she had 2 episodes of them requiring as needed Ativan. In view of increased need of breakthrough medication consulted neurology.
-baclofen continued
-sinemet continued
-episodes with vasovagal response when trying to have a BM - start standing miralax and colace BID
Chronic pain syndrome-on high doses of narcotics (chronic opioid use with dependence) including p.o. Dilaudid and Suboxone at home. Again unclear the source of her pain.
GERD
-famotidine continued
-acipHex continued
-simethicone continued
iron def anemia
-ferrous sulfate continued
hxt of tachycardia
-EKG with sinus tachycardia
-propranolol continued
Chronic Nausea / Esophageal Dysmotility/gastroparesis
History GJ tube
�- Continue diet as tolerated.
�- Continue G-tube to gravity for chronic nausea.
�- Meds via J-tube.
-Zofran every 8 hours as needed
-Continue Pepcid
-emend continued
- PEG tube site without any signs of cellulitis. CT of the abdomen pelvis shows no subcutaneous collection around the PEG tube and it is in place.
Acute fractures of the left 6 anterolateral 6th and 7th ribs
-Suspect from recent fall on 10/03
-10/25 complains of pain on the posterolateral lower ribs
-Continue lidocaine patch, add heating packs
Steroid-Induced DM-II--
She remains on steady dose of prednisone
Blood glucose remains marginal
Monitor oral intake
Reduce Lantus and NovoLog AC
Continue serial Accu-Cheks with basal bolus protocol.
s/p fall overnight 10/03-10/04
imaging negative for bleed or fracture
one more dose IV dilaudid now
Steroid-Induced Osteoporosis
Chronic Pain Syndrome secondary to the above on chronic opiates
�- Continue buprenorphine 2 mg 4 times daily , Dilaudid 8 mg as needed
�- PT / OT evaluations.
�- Follow-up with usual collection specialist after discharge.
allergy induced asthma
chronic hypoxic respiratory failure--on O2
-albuterol continued
-budesonide continued
-cetirizine continued
-cromolyn continued
Migraine Hx
ODT Nurtec as needed
Restless leg syndrome
-Continue baclofen
History of DVT/PE
#Takes subcu Lovenox 100 mg twice daily
DNR on admission
Disposition: Discussion with primary automatic pinsetter mechanic Dr. Ethan Villanueva on 10/09. Discussed possibility of attempting weaning Benadryl drip likely could be done as outpatient. With current family social situation, unfortunately there is no options
for disposition other than home on IV infusion. Possibility of a transfer to [facility] discussed as well, although according to Dr. Villanueva hospital administration declined services due to complexity. Also discussed possibility of
transfer to tertiary center ([facility] declined in the past).
10/[address] Villanueva over the phone as well as [facility] transfer center.
Complex patient. Attempt to wean off Benadryl drip over the last 2 weeks with persistent dystonic episodes
While patient is relatively stable with her current condition, given complex clinical picture requiring multi disciplinary approach not limited to medicine, hematology, allergology, as well as neuropsychiatric assessment, patient would be better
served at a tertiary facility. Patient was accepted to [facility] for transfer pending bed availability.
Anticipated Discharge: 24 - 48 hours
Subjective/Interval History
-
Date of Service: November 02, 2023
Objective Data
-
Vital Signs:
Vital Signs
Temp Pulse Resp BP Pulse Ox
98.2 F 101 20 123/69 91
11/02/23 11:18 11/02/23 12:00 11/02/23 12:00 11/02/23 10:11 11/02/23 12:00
I&O
11/01/23 11/02/23 11/03/23
06:59 06:59 06:59
Intake Total 1120 / 1120 860 / 860 420 / 420
Output Total 2750 / 2750 5050 / 5050
Balance -1630 / -1630 -4190 / -4190 420 / 420
Physical Exam
-
General: Well Developed and No Apparent Distress
HEENT: Normocephalic, Atraumatic and Moist Mucous Membranes
Respiratory: Clear to Auscultation
Cardiac: Regular Rhythm and S1/S2; Negative Murmur, Rub or Gallop
GI: Soft, Nontender, Nondistended and Normal Bowel Sounds; Negative Organomegaly
Rectal: Deferred by Provider
Musculoskeletal: No Clubbing, No Cyanosis and No Edema
Skin: Negative Rash
Neuro: Nonfocal/Grossly Intact
[2023-11-02] MEDS: NON-FORMULARY ITEM 200 MG PO (14:13)
[2023-11-02] MEDS: SINEMET 25-100 2 TABLET TUBE ×2 (14:13→17:30)
[2023-11-02] MEDS: SENOKOT-S 1 TABLET PO (17:31)
[2023-11-02] MEDS: ZYRTEC 10 MG TUBE ×2 (17:31→21:10)
[2023-11-02 17:43] LABS: Glucose - Point of Care 98 mg/dl (70-99)
--- NOTE | 2023-11-02 17:50 | PTCARENOTE ---
Patient with dystonic episode, Ativan SL and IV Benadryl given with relief.
[2023-11-02] MEDS: DUONEB 3 ML INH (20:42)
[2023-11-02] MEDS: FEOSOL 325 MG PO (21:07)
[2023-11-02 22:00] LABS: Glucose - Point of Care 118 mg/dl (70-99)
--- NOTE | 2023-11-02 23:31 | PTCARENOTE ---
Caring for pt overnight. aaox3, pleasant. SR/ST. Remains on 2LNC. Purewick in place. GJT flushing & connected to drainage bag. PRNS given when needed. No assessment changes at this time. PT was tearful & upset at one point, stressed about everything
going on and would like to be able to go home and enjoy her summer. Emotional support given. Will monitor. VSS.
[2023-11-03] VITALS (8 sets, daily range): BP systolic 109–136; BP diastolic 63–97; PULSE 110; O2SAT 100
[2023-11-03] MEDS: BENADRYL 25 MG IV ×4 (02:21→22:41)
[2023-11-03] MEDS: ATIVAN 2 MG SL ×5 (02:21→22:40)
[2023-11-03] MEDS: DUONEB 3 ML INH ×3 (02:48→20:16)
[2023-11-03] MEDS: ADRENALIN 0.3 MG IM ×5 (02:56→13:49)
--- NOTE | 2023-11-03 03:28 | W.PN.UPDATE ---
Update Note
Progress Note Update
Nurse contacted this provider that patient was actively having an episode of dystonia for over an hour, all PRN medications were administered as ordered without relief (see MAR for details). Ordered 1x dose IV Benadryl 50mg and 1x IV Lorazepam 2mg
now. Extra doses were effective.
[2023-11-03] MEDS: BENADRYL 50 MG IV ×2 (03:42→14:06)
[2023-11-03] MEDS: ATIVAN 2 MG IV (03:44)
[2023-11-03] MEDS: NSS (PRESERVATIVE FREE) 1 ML IV (03:45)
--- NOTE | 2023-11-03 06:06 | PTCARENOTE ---
Pt's father Jonel Ontiveros would like to speak to case management working on Mary's case.
[phone]
[2023-11-03] MEDS: SINEMET 25-100 1.5 TABLET TUBE ×2 (06:20→09:27)
[2023-11-03] MEDS: LIORESAL 10 MG TUBE ×3 (06:20→22:41)
[2023-11-03] MEDS: BENADRYL 250 MG IV (06:25)
--- NOTE | 2023-11-03 06:44 | PTCARENOTE ---
Pt had a very long episode last night, lasting almost 1.5hours. All prns given, prn EPI given X3. Pt still dystonic, HR 140's, very diaphoretic, o2 good at 99% 2LNC, Neb given. Reached out to ASSISTANT PRODUCE MANAGER, additional prn ativan IV & benadryl given which ended
up being effective. Pt was extremely tired after the event and is now asleep. Morning meds given. beandryl gtt still running at 12.
[2023-11-03] MEDS: PULMICORT 0.5 MG INH ×2 (07:52→20:14)
[2023-11-03 08:56] LABS: Glucose - Point of Care 129 mg/dl (70-99)
[2023-11-03] MEDS: NOVOLOG FLEXPEN-LOW RESISTANCE SC ×2 (09:06→18:42)
--- NOTE | 2023-11-03 09:07 | CM ---
Call placed to [facility], spoke to Giancarlo. He stated they do have a unit targeted for her, however there have been no beds. He stated last week due to their high census they were only accepting critical patients, which caused a back -up of
transfers. He could not provide me an estimated timeframe as to when a bed may be available. Update to CM and Hospitalist.
[2023-11-03] MEDS: ZOFRAN 4 MG IV ×3 (09:23→22:41)
[2023-11-03] MEDS: NSS 1000 IV (09:26)
[2023-11-03] MEDS: LIDOCAINE 4% PATCH 1 PATCH TOPICAL (09:26)
[2023-11-03] MEDS: DELTASONE 10 MG TUBE ×2 (09:27→19:47)
[2023-11-03] MEDS: INDERAL 10 MG TUBE ×3 (09:28→22:40)
[2023-11-03] MEDS: VITAMIN B1 100 MG TUBE (09:28)
[2023-11-03] MEDS: CLARITIN 10 MG PO (09:28)
[2023-11-03] MEDS: HYDREA 500 MG PO ×2 (09:28→19:47)
[2023-11-03] MEDS: SUBUTEX 2 MG SL ×4 (09:28→22:41)
[2023-11-03] MEDS: NSS (PRESERVATIVE FREE) 6 ML IV ×2 (09:41→19:48)
[2023-11-03] MEDS: LANTUS 0.1 UNITS SC (09:42)
[2023-11-03] MEDS: PEPCID 40 MG IV ×2 (09:42→19:47)
[2023-11-03] MEDS: LOVENOX 100 MG SC ×2 (09:43→19:47)
[2023-11-03] MEDS: NON-FORMULARY ITEM 1 UNIT PO ×4 (09:51→22:42)
[2023-11-03] MEDS: NON-FORMULARY ITEM 1 MG PO ×2 (09:52→19:50)
[2023-11-03] MEDS: COLACE PO ×2 (09:53→19:47)
[2023-11-03] MEDS: DESENEX/MITRAZOL/ZEASORB 1 APPLIC TOPICAL ×2 (09:53→19:48)
[2023-11-03] MEDS: NOVOLOG FLEXPEN 3 UNITS SC ×3 (09:54→18:42)
[2023-11-03] MEDS: MIRALAX PO (09:54)
[2023-11-03] MEDS: ZADITOR 1 DROP BOTH EYES ×2 (09:55→19:49)
[2023-11-03] MEDS: NON-FORMULARY ITEM NASAL (09:56)
[2023-11-03] MEDS: NON-FORMULARY ITEM 80 MG PO (09:57)
[2023-11-03] MEDS: NON-FORMULARY ITEM 3 UNIT PO ×2 (10:01→13:25)
[2023-11-03 13:05] LABS: Glucose - Point of Care 191 mg/dl (70-99)
[2023-11-03] MEDS: NOVOLOG FLEXPEN-LOW RESISTANCE 1 UNITS SC (13:22)
[2023-11-03] MEDS: ATIVAN 1 MG IV (14:05)
[2023-11-03] MEDS: SINEMET 25-100 2 TABLET TUBE ×2 (15:10→18:21)
[2023-11-03] MEDS: NON-FORMULARY ITEM 200 MG PO (15:11)
--- NOTE | 2023-11-03 15:12 | CM ---
Case management following for d/c planning
Pt for transfer to [facility] when bed available
Auth previously obtained
CM will follow for additional d/c needs
Plan transfer to [facility] by ALS ambulance when bed is available.
[2023-11-03] MEDS: NSS (PRESERVATIVE FREE) 0.5 ML IV (15:19)
--- NOTE | 2023-11-03 15:34 | PTCARENOTE ---
pt had dystonic episode this afternoon immediately after ambulating with physical therapy. prn meds administered per order see JUL . pt required additional one time dose of iv ativan and benadryl and finally had relief.
--- NOTE | 2023-11-03 15:34 | W.PN.HOSP.TC ---
Today's Communication/Plan
-
Dystonic episodes almost on a daily basis improving with additional dose of IV lorazepam, Benadryl occasionally Dilaudid
Stable hemodynamic and respiratory status.
Pending transfer to tertiary facility.
Assessment / Plan
Assessment / Plan
Impression:
Gram-negative bacteremia due to chronic infected PICC line.
Fever on admission with no evidence of sepsis (tachycardia likely fever mediated)
Conditions prior to admission:
1. Mast cell activation syndrome.
2. Chronic dystonic reaction.
3. Orthostatic hypotension with postural orthostatic and
tachycardia syndrome.
4. Dopa sensitive dystonia.
5. Steroid-induced diabetes.
6. Prior history of deep venous thrombosis and pulmonary embolism.
7. Chronic pain syndrome.
8. Migraine headaches.
9. Gastroesophageal reflux disease.
10. Benzodiazepine and opiate dependence.
11. Restless legs syndrome.
12. Insomnia.
13. History of vocal cord dysfunction.
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
15. Gastroparesis.
16. 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
17. 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
Plan:
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
PICC line removed and PICC line replaced on 09/23
Repeated blood cultures negative on 09/20 but no other cultures obtained
Finished cipro on 10/06/23 (was on 750mg BID)
GJ tube in place with buried bumper.
Replaced by interventional radiology on 09/22
HX Recurrent Anaphylaxis / Mast Cell Flare Episodes on chronic steroids
Mast Cell Activation Syndrome
DOPA-Responsive Dystonia
-follows with Dr. Lizabeth Villanueva at [facility] hematology.
- Continue Ativan
�-cont Gleevac ,steroids
�--Levalbuterol as needed, to do her eyedrops
-Continue carbidopa levodopa
-prednisone continued
-Outpatient IV Benadryl drip at 15 milligram an hour upon presentation. As discussed with primary superintendent plant protection Dr. Mora plan is to slowly taper.
dystonia/movement disorder-patient apparently has dystonic features with her mast cell activation syndrome. I could not find in literature as a routine clinical presentation but according to patient apparently this is very unusual feature which was
noted in few other patients . She is on IV Benadryl pump at 15 mg/h at home. Yesterday she had 2 episodes of them requiring as needed Ativan. In view of increased need of breakthrough medication consulted neurology.
-baclofen continued
-sinemet continued
-episodes with vasovagal response when trying to have a BM - start standing miralax and colace BID
Chronic pain syndrome-on high doses of narcotics (chronic opioid use with dependence) including p.o. Dilaudid and Suboxone at home. Again unclear the source of her pain.
GERD
-famotidine continued
-acipHex continued
-simethicone continued
iron def anemia
-ferrous sulfate continued
hxt of tachycardia
-EKG with sinus tachycardia
-propranolol continued
Chronic Nausea / Esophageal Dysmotility/gastroparesis
History GJ tube
�- Continue diet as tolerated.
�- Continue G-tube to gravity for chronic nausea.
�- Meds via J-tube.
-Zofran every 8 hours as needed
-Continue Pepcid
-emend continued
- PEG tube site without any signs of cellulitis. CT of the abdomen pelvis shows no subcutaneous collection around the PEG tube and it is in place.
Acute fractures of the left 6 anterolateral 6th and 7th ribs
-Suspect from recent fall on 10/03
-10/25 complains of pain on the posterolateral lower ribs
-Continue lidocaine patch, add heating packs
Steroid-Induced DM-II--
She remains on steady dose of prednisone
Blood glucose remains marginal
Monitor oral intake
Reduce Lantus and NovoLog AC
Continue serial Accu-Cheks with basal bolus protocol.
s/p fall overnight 10/03-10/04
imaging negative for bleed or fracture
one more dose IV dilaudid now
Steroid-Induced Osteoporosis
Chronic Pain Syndrome secondary to the above on chronic opiates
�- Continue buprenorphine 2 mg 4 times daily , Dilaudid 8 mg as needed
�- PT / OT evaluations.
�- Follow-up with usual retail customer service specialist after discharge.
allergy induced asthma
chronic hypoxic respiratory failure--on O2
-albuterol continued
-budesonide continued
-cetirizine continued
-cromolyn continued
Migraine Hx
ODT Nurtec as needed
Restless leg syndrome
-Continue baclofen
History of DVT/PE
#Takes subcu Lovenox 100 mg twice daily
DNR on admission
Disposition: Discussion with primary superintendent plant protection Dr. Ethan Villanueva on 10/09. Discussed possibility of attempting weaning Benadryl drip likely could be done as outpatient. With current family social situation, unfortunately there is no options
for disposition other than home on IV infusion. Possibility of a transfer to [facility] discussed as well, although according to Dr. Villanueva hospital administration declined services due to complexity. Also discussed possibility of
transfer to tertiary center ([facility] declined in the past).
10/[address] Villanueva over the phone as well as [facility] transfer center.
Complex patient. Attempt to wean off Benadryl drip over the last 2 weeks with persistent dystonic episodes
While patient is relatively stable with her current condition, given complex clinical picture requiring multi disciplinary approach not limited to medicine, hematology, allergology, as well as neuropsychiatric assessment, patient would be better
served at a tertiary facility. Patient was accepted to [facility] for transfer pending bed availability.
Anticipated Discharge: Within 24 hours
Subjective/Interval History
-
Date of Service: November 03, 2023
Objective Data
-
Vital Signs:
Vital Signs
Temp Pulse Resp BP Pulse Ox
98.3 F 112 15 125/88 99
11/03/23 11:41 11/03/23 14:30 11/03/23 14:30 11/03/23 13:02 11/03/23 14:39
I&O
11/02/23 11/03/23 11/04/23
06:59 06:59 06:59
Intake Total 860 / 860 1660 / 1660
Output Total 5050 / 5050 1800 / 1800
Balance -4190 / -4190 -140 / -140
Physical Exam
-
General: Well Developed and No Apparent Distress
HEENT: Normocephalic, Atraumatic and Moist Mucous Membranes
Respiratory: Clear to Auscultation
Cardiac: Regular Rhythm and S1/S2; Negative Murmur, Rub or Gallop
GI: Soft, Nontender, Nondistended and Normal Bowel Sounds; Negative Organomegaly
Rectal: Deferred by Provider
Musculoskeletal: No Clubbing, No Cyanosis and No Edema
Skin: Negative Rash
Neuro: Nonfocal/Grossly Intact
[2023-11-03] MEDS: ZYRTEC 10 MG TUBE ×2 (18:22→22:41)
[2023-11-03 18:51] LABS: Glucose - Point of Care 127 mg/dl (70-99)
--- NOTE | 2023-11-03 20:20 | PTCARENOTE ---
Received pt from anisa JULIEN. Pt is AAOx3. Sinus tach/NSR on the monitor. On 2L NC O2 sat 95%, lungs diminished. Pw in place and changed. Pt is laying comfortable in bed with call sanchez in reach.
[2023-11-03 22:01] LABS: Glucose - Point of Care 207 mg/dl (70-99)
[2023-11-03] MEDS: FEOSOL 325 MG PO (22:40)
[2023-11-04] VITALS (7 sets, daily range): BP systolic 105–139; BP diastolic 72–89; PULSE 110; O2SAT 97
[2023-11-04 02:43] LABS: Hepatitis B Surface Antigen Negative (Negative)
[2023-11-04 03:00] LABS: Hepatitis C Antibody Negative (Negative)
[2023-11-04 04:38] LABS: HIV Combo Negative (Negative)
[2023-11-04] MEDS: ATIVAN 2 MG SL ×5 (05:04→22:50)
[2023-11-04] MEDS: BENADRYL 25 MG IV ×6 (05:05→22:50)
[2023-11-04] MEDS: BENADRYL 250 MG IV ×2 (05:06→22:49)
[2023-11-04] MEDS: LIORESAL 10 MG TUBE ×3 (05:08→22:50)
[2023-11-04] MEDS: SINEMET 25-100 1.5 TABLET TUBE ×2 (05:09→11:29)
[2023-11-04] MEDS: NON-FORMULARY ITEM 1 UNIT PO ×4 (05:10→22:52)
[2023-11-04 08:20] LABS: Glucose - Point of Care 127 mg/dl (70-99)
[2023-11-04] MEDS: PULMICORT 0.5 MG INH ×2 (08:32→20:05)
[2023-11-04] MEDS: DUONEB 3 ML INH ×3 (08:32→20:05)
[2023-11-04] MEDS: NOVOLOG FLEXPEN-LOW RESISTANCE SC ×2 (09:08→13:24)
[2023-11-04] MEDS: LIDOCAINE 4% PATCH 1 PATCH TOPICAL (09:16)
[2023-11-04] MEDS: SUBUTEX 2 MG SL ×4 (09:17→22:49)
[2023-11-04] MEDS: NOVOLOG FLEXPEN 3 UNITS SC ×3 (09:19→17:49)
[2023-11-04] MEDS: LOVENOX 100 MG SC ×2 (09:19→19:39)
[2023-11-04] MEDS: VITAMIN B1 100 MG TUBE (09:20)
[2023-11-04] MEDS: INDERAL 10 MG TUBE ×3 (09:20→22:49)
[2023-11-04] MEDS: CLARITIN 10 MG PO (09:20)
[2023-11-04] MEDS: DELTASONE 10 MG TUBE ×2 (09:20→19:39)
[2023-11-04] MEDS: DESENEX/MITRAZOL/ZEASORB 1 APPLIC TOPICAL ×2 (09:21→19:40)
[2023-11-04] MEDS: HYDREA 500 MG PO ×2 (09:21→19:39)
[2023-11-04] MEDS: COLACE PO ×2 (09:22→19:40)
[2023-11-04] MEDS: MIRALAX PO (09:22)
[2023-11-04] MEDS: NON-FORMULARY ITEM NASAL (09:23)
[2023-11-04] MEDS: PEPCID 40 MG IV ×2 (09:24→19:39)
[2023-11-04] MEDS: NSS (PRESERVATIVE FREE) 6 ML IV ×2 (09:25→19:39)
[2023-11-04] MEDS: NSS 1000 IV (09:25)
[2023-11-04] MEDS: ZADITOR 1 DROP BOTH EYES ×2 (09:26→19:43)
[2023-11-04] MEDS: NON-FORMULARY ITEM 1 MG PO ×2 (09:28→19:42)
[2023-11-04] MEDS: NON-FORMULARY ITEM 80 MG PO (09:29)
[2023-11-04] MEDS: LANTUS 0.1 UNITS SC (09:46)
[2023-11-04] MEDS: ZOFRAN 4 MG IV ×3 (09:47→22:50)
[2023-11-04] MEDS: DILAUDID 8 MG PO ×2 (11:30→17:46)
[2023-11-04] MEDS: NON-FORMULARY ITEM 3 UNIT PO ×2 (13:25→17:51)
[2023-11-04 13:35] LABS: Glucose - Point of Care 82 mg/dl (70-99)
[2023-11-04] MEDS: SINEMET 25-100 2 TABLET TUBE ×2 (15:19→17:48)
[2023-11-04] MEDS: NON-FORMULARY ITEM 200 MG PO (15:21)
--- NOTE | 2023-11-04 15:46 | CM ---
Pt for transfer to [facility] when bed available
Auth previously obtained.
CM continues to follow for additional d/c needs
Plan: transfer to [place] by ALS ambulance when bed is available.
--- NOTE | 2023-11-04 16:23 | W.PN.HOSP.TC ---
Today's Communication/Plan
-
Mild pending transfer to tertiary facility patient observed with daily dystonic episodes interestingly enough around the same time at 4 to 4:30 PM
Stable vital signs throughout episodes with no evidence of bronchospasm or stridor.
Patient has been able to communicate throughout all episodes attempting to direct her medications suggesting additional doses of IV lorazepam, Benadryl, hydromorphone.
Assessment / Plan
Assessment / Plan
Impression:
Gram-negative bacteremia due to chronic infected PICC line.
Fever on admission with no evidence of sepsis (tachycardia likely fever mediated)
Conditions prior to admission:
1. Mast cell activation syndrome.
2. Chronic dystonic reaction.
3. Orthostatic hypotension with postural orthostatic and
tachycardia syndrome.
4. Dopa sensitive dystonia.
5. Steroid-induced diabetes.
6. Prior history of deep venous thrombosis and pulmonary embolism.
7. Chronic pain syndrome.
8. Migraine headaches.
9. Gastroesophageal reflux disease.
10. Benzodiazepine and opiate dependence.
11. Restless legs syndrome.
12. Insomnia.
13. History of vocal cord dysfunction.
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
15. Gastroparesis.
16. 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
17. 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
Plan:
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
PICC line removed and PICC line replaced on 09/23
Repeated blood cultures negative on 09/20 but no other cultures obtained
Finished cipro on 10/06/23 (was on 750mg BID)
GJ tube in place with buried bumper.
Replaced by interventional radiology on 09/22
HX Recurrent Anaphylaxis / Mast Cell Flare Episodes on chronic steroids
Mast Cell Activation Syndrome
DOPA-Responsive Dystonia
-follows with Dr. Lizabeth Villanueva at [facility] hematology.
- Continue Ativan
�-cont Gleevac ,steroids
�--Levalbuterol as needed, to do her eyedrops
-Continue carbidopa levodopa
-prednisone continued
-Outpatient IV Benadryl drip at 15 milligram an hour upon presentation. As discussed with primary blueprint reader Dr. Mora plan is to slowly taper.
dystonia/movement disorder-patient apparently has dystonic features with her mast cell activation syndrome. I could not find in literature as a routine clinical presentation but according to patient apparently this is very unusual feature which was
noted in few other patients . She is on IV Benadryl pump at 15 mg/h at home. Yesterday she had 2 episodes of them requiring as needed Ativan. In view of increased need of breakthrough medication consulted neurology.
-baclofen continued
-sinemet continued
-episodes with vasovagal response when trying to have a BM - start standing miralax and colace BID
Chronic pain syndrome-on high doses of narcotics (chronic opioid use with dependence) including p.o. Dilaudid and Suboxone at home. Again unclear the source of her pain.
GERD
-famotidine continued
-acipHex continued
-simethicone continued
iron def anemia
-ferrous sulfate continued
hxt of tachycardia
-EKG with sinus tachycardia
-propranolol continued
Chronic Nausea / Esophageal Dysmotility/gastroparesis
History GJ tube
�- Continue diet as tolerated.
�- Continue G-tube to gravity for chronic nausea.
�- Meds via J-tube.
-Zofran every 8 hours as needed
-Continue Pepcid
-emend continued
- PEG tube site without any signs of cellulitis. CT of the abdomen pelvis shows no subcutaneous collection around the PEG tube and it is in place.
Acute fractures of the left 6 anterolateral 6th and 7th ribs
-Suspect from recent fall on 10/03
-10/25 complains of pain on the posterolateral lower ribs
-Continue lidocaine patch, add heating packs
Steroid-Induced DM-II--
She remains on steady dose of prednisone
Blood glucose remains marginal
Monitor oral intake
Reduce Lantus and NovoLog AC
Continue serial Accu-Cheks with basal bolus protocol.
s/p fall overnight 10/03-10/04
imaging negative for bleed or fracture
one more dose IV dilaudid now
Steroid-Induced Osteoporosis
Chronic Pain Syndrome secondary to the above on chronic opiates
�- Continue buprenorphine 2 mg 4 times daily , Dilaudid 8 mg as needed
�- PT / OT evaluations.
�- Follow-up with usual clinical studies specialist after discharge.
allergy induced asthma
chronic hypoxic respiratory failure--on O2
-albuterol continued
-budesonide continued
-cetirizine continued
-cromolyn continued
Migraine Hx
ODT Nurtec as needed
Restless leg syndrome
-Continue baclofen
History of DVT/PE
#Takes subcu Lovenox 100 mg twice daily
DNR on admission
Disposition: Discussion with primary blueprint reader Dr. Ethan Villanueva on 10/09. Discussed possibility of attempting weaning Benadryl drip likely could be done as outpatient. With current family social situation, unfortunately there is no options
for disposition other than home on IV infusion. Possibility of a transfer to [facility] discussed as well, although according to Dr. Villanueva hospital administration declined services due to complexity. Also discussed possibility of
transfer to tertiary center ([facility] declined in the past).
10/[address] Villanueva over the phone as well as [facility] transfer center.
Complex patient. Attempt to wean off Benadryl drip over the last 2 weeks with persistent dystonic episodes
While patient is relatively stable with her current condition, given complex clinical picture requiring multi disciplinary approach not limited to medicine, hematology, allergology, as well as neuropsychiatric assessment, patient would be better
served at a tertiary facility. Patient was accepted to [facility] for transfer pending bed availability.
Anticipated Discharge: Within 24 hours
Subjective/Interval History
-
Date of Service: November 04, 2023
Objective Data
-
Labs:
Laboratory Results
11/04/23 11/04/23
13:33 13:41
Sodium Cancelled Pending
Potassium Cancelled Pending
Chloride Cancelled Pending
Carbon Dioxide Cancelled Pending
BUN Cancelled Pending
Creatinine Cancelled Pending
Glucose Cancelled Pending
Calcium Cancelled Pending
Vital Signs:
Vital Signs
Temp Pulse Resp BP Pulse Ox
98.9 F 102 20 119/81 93
11/04/23 15:34 11/04/23 14:00 11/04/23 14:00 11/04/23 12:00 11/04/23 14:00
I&O
11/03/23 11/04/23 11/05/23
06:59 06:59 06:59
Intake Total 1660 / 1660 2270 / 2270
Output Total 1800 / 1800 2810 / 2810 850 / 850
Balance -140 / -140 -540 / -540 -850 / -850
Physical Exam
-
General: Well Developed and No Apparent Distress
HEENT: Normocephalic, Atraumatic and Moist Mucous Membranes
Respiratory: Clear to Auscultation
Cardiac: Regular Rhythm and S1/S2; Negative Murmur, Rub or Gallop
GI: Soft, Nontender, Nondistended and Normal Bowel Sounds; Negative Organomegaly
Rectal: Deferred by Provider
Musculoskeletal: No Clubbing, No Cyanosis and No Edema
Skin: Negative Rash
Neuro: Nonfocal/Grossly Intact
[2023-11-04] MEDS: ATIVAN 1 MG IV (16:38)
[2023-11-04] MEDS: BENADRYL 50 MG IV (16:38)
[2023-11-04] MEDS: ADRENALIN 0.3 MG IM (16:43)
[2023-11-04 17:45] LABS: Glucose - Point of Care 175 mg/dl (70-99)
[2023-11-04] MEDS: NOVOLOG FLEXPEN-LOW RESISTANCE 1 UNITS SC (17:48)
[2023-11-04] MEDS: ZYRTEC 10 MG TUBE ×2 (17:48→22:50)
[2023-11-04 19:07] LABS: Blood Urea Nitrogen 7 mg/dl (7-17); Calcium 9.2 mg/dl (8.4-10.2); Carbon Dioxide 25 mmol/L (22-30); Chloride 104 mmol/L (98-107); Estimated Creatinine Clearance > 125 ml/min; Glucose 136 mg/dl (70-99); Potassium 4.1 mmol/L (3.5-5.1); Sodium 138 mmol/L (135-145); eGFR > 60.00
--- NOTE | 2023-11-04 19:35 | PTCARENOTE ---
day shift note. see nursing assessment. pt had one episode dystonia this afternoon after working with PT. prn meds and neb given with eventual relief of dystonia. during episode pt diaphoretic with heart rate up to 130. sat remains in high 90s on 2
liters but increased to 3 liters for patient comfort.emotional support provided.
[2023-11-04 21:59] LABS: Glucose - Point of Care 133 mg/dl (70-99)
[2023-11-04] MEDS: FEOSOL 325 MG PO (22:50)
[2023-11-05] VITALS (10 sets, daily range): BP systolic 100–167; BP diastolic 65–144
[2023-11-05] MEDS: BENADRYL 25 MG IV ×4 (03:13→20:20)
[2023-11-05] MEDS: ATIVAN 2 MG SL ×4 (03:13→20:20)
--- NOTE | 2023-11-05 03:20 | PTCARENOTE ---
Pt with a dystonia episode. YAN Brooke and Richie given @ [id number] (see MAR and downtime paperwork).
--- NOTE | 2023-11-05 03:40 | DOWNTIME ---
There was a [facility] Downtime on 11/05/2023 from 0100 to 11/05/2023 at 0337. Downtime documentation of patient's care, including medication administrations, has been reconciled in the electronic record per guidelines. Refer to the
patient's paper chart under the miscellaneous tab to see printed paper medication records and downtime forms.
[2023-11-05] MEDS: SINEMET 25-100 1.5 TABLET TUBE ×2 (05:30→10:56)
[2023-11-05] MEDS: LIORESAL 10 MG TUBE ×3 (05:30→22:16)
[2023-11-05] MEDS: NON-FORMULARY ITEM 1 UNIT PO ×6 (05:31→22:18)
[2023-11-05] MEDS: ZOFRAN 4 MG IV ×3 (05:40→18:35)
[2023-11-05] MEDS: PULMICORT 0.5 MG INH ×2 (08:25→20:21)
[2023-11-05] MEDS: NOVOLOG FLEXPEN-LOW RESISTANCE SC ×3 (08:26→16:54)
[2023-11-05 08:30] LABS: Glucose - Point of Care 121 mg/dl (70-99)
[2023-11-05] MEDS: NOVOLOG FLEXPEN 3 UNITS SC ×2 (08:43→17:52)
[2023-11-05] MEDS: LANTUS 0.1 UNITS SC (08:44)
[2023-11-05] MEDS: LOVENOX 100 MG SC ×2 (08:44→20:02)
[2023-11-05] MEDS: INDERAL 10 MG TUBE ×3 (08:46→22:17)
[2023-11-05] MEDS: PEPCID 40 MG IV ×2 (08:46→20:02)
[2023-11-05] MEDS: VITAMIN B1 100 MG TUBE (08:46)
[2023-11-05] MEDS: CLARITIN 10 MG PO (08:46)
[2023-11-05] MEDS: SUBUTEX 2 MG SL ×4 (08:46→22:17)
[2023-11-05] MEDS: DELTASONE 10 MG TUBE ×2 (08:47→20:03)
[2023-11-05] MEDS: COLACE PO (08:47)
[2023-11-05] MEDS: LIDOCAINE 4% PATCH 1 PATCH TOPICAL (08:48)
[2023-11-05] MEDS: HYDREA 500 MG PO ×2 (08:48→20:03)
[2023-11-05] MEDS: MIRALAX PO (08:48)
[2023-11-05] MEDS: NON-FORMULARY ITEM 1 MG PO ×2 (08:49→20:04)
[2023-11-05] MEDS: NON-FORMULARY ITEM 80 MG PO (08:49)
[2023-11-05] MEDS: DESENEX/MITRAZOL/ZEASORB 1 APPLIC TOPICAL ×2 (08:49→20:03)
[2023-11-05] MEDS: NON-FORMULARY ITEM NASAL (08:50)
[2023-11-05] MEDS: NSS (PRESERVATIVE FREE) 6 ML IV ×2 (08:50→20:03)
[2023-11-05] MEDS: ZADITOR 1 DROP BOTH EYES ×2 (08:51→20:01)
[2023-11-05] MEDS: NSS 1000 IV (09:08)
--- NOTE | 2023-11-05 09:22 | CM ---
Call placed to [facility], per [facility] they have patient as a high priority , however they have been a maximum capacity this week and were only accepting emergent transfers last week. They will call the [employer] on the floor as soon as
there is a bed available. Update to CM and Hospitalist
[2023-11-05 12:08] LABS: Glucose - Point of Care 132 mg/dl (70-99)
[2023-11-05] MEDS: BENADRYL 250 MG IV ×2 (12:30→20:01)
--- NOTE | 2023-11-05 13:38 | PTCARENOTE ---
c/o of leaking around j-tube. MD notified, consult placed for [facility]. patient is off the floor to IRAD to get her tube replaced
[2023-11-05] MEDS: ADRENALIN 0.3 MG IM (14:20)
--- NOTE | 2023-11-05 14:58 | W.PN.HOSP.TC ---
Today's Communication/Plan
-
Continue current regimen including IV Benadryl drip
Patient with daily dystonic attacks with stable respiratory and hemodynamic status.
Reports feeding tube leak will ask interventional radiology to examine.
Assessment / Plan
Assessment / Plan
Impression:
Gram-negative bacteremia due to chronic infected PICC line.
Fever on admission with no evidence of sepsis (tachycardia likely fever mediated)
Conditions prior to admission:
1. Mast cell activation syndrome.
2. Chronic dystonic reaction.
3. Orthostatic hypotension with postural orthostatic and
tachycardia syndrome.
4. Dopa sensitive dystonia.
5. Steroid-induced diabetes.
6. Prior history of deep venous thrombosis and pulmonary embolism.
7. Chronic pain syndrome.
8. Migraine headaches.
9. Gastroesophageal reflux disease.
10. Benzodiazepine and opiate dependence.
11. Restless legs syndrome.
12. Insomnia.
13. History of vocal cord dysfunction.
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
15. Gastroparesis.
16. 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
17. 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
Plan:
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
PICC line removed and PICC line replaced on 09/23
Repeated blood cultures negative on 09/20 but no other cultures obtained
Finished cipro on 10/06/23 (was on 750mg BID)
GJ tube in place with buried bumper.
Replaced by interventional radiology on 09/22
HX Recurrent Anaphylaxis / Mast Cell Flare Episodes on chronic steroids
Mast Cell Activation Syndrome
DOPA-Responsive Dystonia
-follows with Dr. Lizabeth Villanueva at [facility] hematology.
- Continue Ativan
�-cont Gleevac ,steroids
�--Levalbuterol as needed, to do her eyedrops
-Continue carbidopa levodopa
-prednisone continued
-Outpatient IV Benadryl drip at 15 milligram an hour upon presentation. As discussed with primary forensic medical examiner Dr. Mora plan is to slowly taper.
dystonia/movement disorder-patient apparently has dystonic features with her mast cell activation syndrome. I could not find in literature as a routine clinical presentation but according to patient apparently this is very unusual feature which was
noted in few other patients . She is on IV Benadryl pump at 15 mg/h at home. Yesterday she had 2 episodes of them requiring as needed Ativan. In view of increased need of breakthrough medication consulted neurology.
-baclofen continued
-sinemet continued
-episodes with vasovagal response when trying to have a BM - start standing miralax and colace BID
Chronic pain syndrome-on high doses of narcotics (chronic opioid use with dependence) including p.o. Dilaudid and Suboxone at home. Again unclear the source of her pain.
GERD
-famotidine continued
-acipHex continued
-simethicone continued
iron def anemia
-ferrous sulfate continued
hxt of tachycardia
-EKG with sinus tachycardia
-propranolol continued
Chronic Nausea / Esophageal Dysmotility/gastroparesis
History GJ tube
�- Continue diet as tolerated.
�- Continue G-tube to gravity for chronic nausea.
�- Meds via J-tube.
-Zofran every 8 hours as needed
-Continue Pepcid
-emend continued
- PEG tube site without any signs of cellulitis. CT of the abdomen pelvis shows no subcutaneous collection around the PEG tube and it is in place.
Acute fractures of the left 6 anterolateral 6th and 7th ribs
-Suspect from recent fall on 10/03
-10/25 complains of pain on the posterolateral lower ribs
-Continue lidocaine patch, add heating packs
Steroid-Induced DM-II--
She remains on steady dose of prednisone
Blood glucose remains marginal
Monitor oral intake
Reduce Lantus and NovoLog AC
Continue serial Accu-Cheks with basal bolus protocol.
s/p fall overnight 10/03-10/04
imaging negative for bleed or fracture
one more dose IV dilaudid now
Steroid-Induced Osteoporosis
Chronic Pain Syndrome secondary to the above on chronic opiates
�- Continue buprenorphine 2 mg 4 times daily , Dilaudid 8 mg as needed
�- PT / OT evaluations.
�- Follow-up with usual transportation specialist after discharge.
allergy induced asthma
chronic hypoxic respiratory failure--on O2
-albuterol continued
-budesonide continued
-cetirizine continued
-cromolyn continued
Migraine Hx
ODT Nurtec as needed
Restless leg syndrome
-Continue baclofen
History of DVT/PE
#Takes subcu Lovenox 100 mg twice daily
DNR on admission
Disposition: Discussion with primary forensic medical examiner Dr. Ethan Villanueva on 10/09. Discussed possibility of attempting weaning Benadryl drip likely could be done as outpatient. With current family social situation, unfortunately there is no options
for disposition other than home on IV infusion. Possibility of a transfer to [facility] discussed as well, although according to Dr. Villanueav hospital administration declined services due to complexity. Also discussed possibility of
transfer to tertiary center ([facility] declined in the past).
10/[address] Villanueva over the phone as well as [facility] transfer center.
Complex patient. Attempt to wean off Benadryl drip over the last 2 weeks with persistent dystonic episodes
While patient is relatively stable with her current condition, given complex clinical picture requiring multi disciplinary approach not limited to medicine, hematology, allergology, as well as neuropsychiatric assessment, patient would be better
served at a tertiary facility. Patient was accepted to [facility] for transfer pending bed availability.
Anticipated Discharge: Within 24 hours
Subjective/Interval History
-
Date of Service: November 05, 2023
Objective Data
-
Vital Signs:
Vital Signs
Temp Pulse Resp BP Pulse Ox
98.5 F 109 23 100/65 95
11/05/23 11:45 11/05/23 08:25 11/05/23 08:25 11/05/23 08:46 11/05/23 08:25
I&O
11/04/23 11/05/23 11/06/23
06:59 06:59 06:59
Intake Total 2270 / 2270 610 / 610
Output Total 2810 / 2810 2100 / 2100 800 / 800
Balance -540 / -540 -1490 / -1490 -800 / -800
Physical Exam
-
General: Well Developed and No Apparent Distress
HEENT: Normocephalic, Atraumatic and Moist Mucous Membranes
Respiratory: Clear to Auscultation
Cardiac: Regular Rhythm and S1/S2; Negative Murmur, Rub or Gallop
GI: Soft, Nontender, Nondistended and Normal Bowel Sounds; Negative Organomegaly
Rectal: Deferred by Provider
Musculoskeletal: No Clubbing, No Cyanosis and No Edema
Skin: Negative Rash
Neuro: Nonfocal/Grossly Intact
[2023-11-05] MEDS: NOVOLOG FLEXPEN SC (15:15)
[2023-11-05] MEDS: SINEMET 25-100 2 TABLET TUBE ×2 (15:15→17:51)
[2023-11-05] MEDS: NON-FORMULARY ITEM 200 MG PO (15:16)
[2023-11-05] MEDS: ATIVAN 1 MG IV (15:25)
[2023-11-05] MEDS: NSS (PRESERVATIVE FREE) 0.5 ML IV (15:25)
[2023-11-05] MEDS: BENADRYL 50 MG IV (15:26)
[2023-11-05 16:31] LABS: Glucose - Point of Care 121 mg/dl (70-99)
[2023-11-05] MEDS: ZYRTEC 10 MG TUBE ×2 (17:51→22:17)
[2023-11-05] MEDS: DILAUDID 8 MG PO (17:51)
[2023-11-05] MEDS: COLACE 100 MG PO (20:02)
[2023-11-05] MEDS: DUONEB 3 ML INH (20:21)
--- NOTE | 2023-11-05 20:46 | PTCARENOTE ---
Received pt on 4L NC, pt weaned to 2L NC O2 sat 91%.
[2023-11-05 21:29] LABS: Glucose - Point of Care 148 mg/dl (70-99)
[2023-11-05] MEDS: FEOSOL 325 MG PO (22:17)
[2023-11-06] VITALS: BP 103/62
[2023-11-06] MEDS: BENADRYL 25 MG IV ×5 (03:52→21:54)
[2023-11-06] MEDS: ATIVAN 2 MG SL ×5 (03:52→21:53)
[2023-11-06 04:00] VITALS: BP 109/70
[2023-11-06] MEDS: SINEMET 25-100 1.5 TABLET TUBE ×2 (05:08→10:35)
[2023-11-06] MEDS: LIORESAL 10 MG TUBE ×3 (05:08→21:51)
[2023-11-06] MEDS: NON-FORMULARY ITEM 1 UNIT PO ×2 (05:10→19:50)
[2023-11-06 08:00] VITALS: BP 109/78
[2023-11-06] MEDS: PULMICORT 0.5 MG INH ×2 (08:03→19:46)
[2023-11-06 08:22] LABS: Glucose - Point of Care 81 mg/dl (70-99)
[2023-11-06] MEDS: NOVOLOG FLEXPEN SC (08:39)
[2023-11-06] MEDS: NOVOLOG FLEXPEN-LOW RESISTANCE SC ×2 (08:39→12:41)
[2023-11-06] MEDS: VITAMIN B1 100 MG TUBE (08:40)
[2023-11-06] MEDS: SUBUTEX 2 MG SL ×4 (08:40→21:52)
[2023-11-06] MEDS: CLARITIN 10 MG PO (08:40)
[2023-11-06] MEDS: DELTASONE 10 MG TUBE ×2 (08:40→19:45)
[2023-11-06] MEDS: INDERAL 10 MG TUBE ×3 (08:41→21:51)
[2023-11-06] MEDS: LIDOCAINE 4% PATCH 1 PATCH TOPICAL (08:41)
[2023-11-06] MEDS: HYDREA 500 MG PO ×2 (08:41→19:45)
[2023-11-06] MEDS: LOVENOX 100 MG SC ×2 (08:42→19:47)
[2023-11-06] MEDS: LANTUS 0.1 UNITS SC (08:42)
--- NOTE | 2023-11-06 08:43 | W.PN.HOSP.TC ---
Today's Communication/Plan
-
Hospital administration at [place] denied her transfer due to medical complexity
Assessment / Plan
Assessment / Plan
Impression:
Gram-negative bacteremia due to chronic infected PICC line.
Fever on admission with no evidence of sepsis (tachycardia likely fever mediated)
Conditions prior to admission:
1. Mast cell activation syndrome.
2. Chronic dystonic reaction.
3. Orthostatic hypotension with postural orthostatic and
tachycardia syndrome.
4. Dopa sensitive dystonia.
5. Steroid-induced diabetes.
6. Prior history of deep venous thrombosis and pulmonary embolism.
7. Chronic pain syndrome.
8. Migraine headaches.
9. Gastroesophageal reflux disease.
10. Benzodiazepine and opiate dependence.
11. Restless legs syndrome.
12. Insomnia.
13. History of vocal cord dysfunction.
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
15. Gastroparesis.
16. 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
17. 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
Plan:
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
PICC line removed and PICC line replaced on 09/23
Repeated blood cultures negative on 09/20 but no other cultures obtained
Finished cipro on 10/06/23 (was on 750mg BID)
GJ tube in place with buried bumper.
Replaced by interventional radiology on 09/22
HX Recurrent Anaphylaxis / Mast Cell Flare Episodes on chronic steroids
Mast Cell Activation Syndrome
DOPA-Responsive Dystonia
-follows with Dr. Lizabeth Villanueva at [facility] hematology.
- Continue Ativan
�-cont Gleevac ,steroids
�--Levalbuterol as needed, to do her eyedrops
-Continue carbidopa levodopa
-prednisone continued
-Outpatient IV Benadryl drip at 15 milligram an hour upon presentation. As discussed with primary housing installer Dr. Mora plan is to slowly taper.
dystonia/movement disorder-patient apparently has dystonic features with her mast cell activation syndrome. I could not find in literature as a routine clinical presentation but according to patient apparently this is very unusual feature which was
noted in few other patients . She is on IV Benadryl pump at 15 mg/h at home. Yesterday she had 2 episodes of them requiring as needed Ativan. In view of increased need of breakthrough medication consulted neurology.
-baclofen continued
-sinemet continued
-episodes with vasovagal response when trying to have a BM - start standing miralax and colace BID
Chronic pain syndrome-on high doses of narcotics (chronic opioid use with dependence) including p.o. Dilaudid and Suboxone at home. Again unclear the source of her pain.
GERD
-famotidine continued
-acipHex continued
-simethicone continued
iron def anemia
-ferrous sulfate continued
hxt of tachycardia
-EKG with sinus tachycardia
-propranolol continued
Chronic Nausea / Esophageal Dysmotility/gastroparesis
History GJ tube
�- Continue diet as tolerated.
�- Continue G-tube to gravity for chronic nausea.
�- Meds via J-tube.
-Zofran every 8 hours as needed
-Continue Pepcid
-emend continued
- PEG tube site without any signs of cellulitis. CT of the abdomen pelvis shows no subcutaneous collection around the PEG tube and it is in place.
Acute fractures of the left 6 anterolateral 6th and 7th ribs
-Suspect from recent fall on 10/03
-10/25 complains of pain on the posterolateral lower ribs
-Continue lidocaine patch, add heating packs
Steroid-Induced DM-II--
She remains on steady dose of prednisone
Blood glucose remains marginal
Monitor oral intake
Reduce Lantus and NovoLog AC
Continue serial Accu-Cheks with basal bolus protocol.
s/p fall overnight 10/03-10/04
imaging negative for bleed or fracture
one more dose IV dilaudid now
Steroid-Induced Osteoporosis
Chronic Pain Syndrome secondary to the above on chronic opiates
�- Continue buprenorphine 2 mg 4 times daily , Dilaudid 8 mg as needed
�- PT / OT evaluations.
�- Follow-up with usual social insurance specialist after discharge.
allergy induced asthma
chronic hypoxic respiratory failure--on O2
-albuterol continued
-budesonide continued
-cetirizine continued
-cromolyn continued
Migraine Hx
ODT Nurtec as needed
Restless leg syndrome
-Continue baclofen
History of DVT/PE
#Takes subcu Lovenox 100 mg twice daily
DNR on admission
Disposition: Discussion with primary housing installer Dr. Ethan Villanueva on 10/09. Discussed possibility of attempting weaning Benadryl drip likely could be done as outpatient. With current family social situation, unfortunately there is no options
for disposition other than home on IV infusion. Possibility of a transfer to [facility] discussed as well, although according to Dr. Villanueva hospital administration declined services due to complexity. Also discussed possibility of
transfer to tertiary center ([facility] declined in the past).
10/[address] Villanueva over the phone as well as [facility] transfer center.
Complex patient. Attempt to wean off Benadryl drip over the last 2 weeks with persistent dystonic episodes
While patient is relatively stable with her current condition, given complex clinical picture requiring multi disciplinary approach not limited to medicine, hematology, allergology, as well as neuropsychiatric assessment, patient would be better
served at a tertiary facility. Patient was accepted to [facility] for transfer, but hospital administration denied her transfer due to complexity.
Physical Exam
General: Obese, no acute distress
HEENT: Normocephalic, Atraumatic, EOMI, MMM
Respiratory: Clear to Auscultation bilaterally
Cardiac: Normal S1/S2, Regular Rate and Rhythm
GI: Soft, +GJ tube, Nontender, Nondistended, Normal Bowel Sounds
MSK: Tenderness to palpation of the left posterolateral lateral ribs
Extremities: No Clubbing, Cyanosis, or Edema
Neuro: Nonfocal/Grossly Intact
Anticipated Discharge: > 48 hours
Subjective/Interval History
-
Date of Service: November 06, 2023
Patient reports having abdominal discomfort secondary to having her GJ tube changed yesterday. No fever, no vomiting.
Objective Data
-
Vital Signs:
Vital Signs
Temp Pulse Resp BP Pulse Ox
98.3 F 110 19 109/70 100
11/06/23 03:31 11/06/23 08:04 11/06/23 08:04 11/06/23 04:00 11/06/23 08:04
I&O
11/05/23 11/06/23 11/07/23
06:59 06:59 06:59
Intake Total 610 / 610 960 / 960
Output Total 2100 / 2100 3100 / 3100
Balance -1490 / -1490 -2140 / -2140
[2023-11-06] MEDS: NON-FORMULARY ITEM 80 MG PO (08:45)
[2023-11-06] MEDS: COLACE PO (08:45)
[2023-11-06] MEDS: MIRALAX PO (08:46)
[2023-11-06] MEDS: NON-FORMULARY ITEM 20 UNIT PO (08:46)
[2023-11-06] MEDS: NSS (PRESERVATIVE FREE) 6 ML IV ×2 (08:46→19:47)
[2023-11-06] MEDS: NON-FORMULARY ITEM 1 MG PO ×2 (08:46→19:49)
[2023-11-06] MEDS: NSS 1000 IV (08:47)
[2023-11-06] MEDS: PEPCID 40 MG IV ×2 (08:47→19:46)
[2023-11-06] MEDS: NON-FORMULARY ITEM NASAL (08:48)
[2023-11-06] MEDS: ZADITOR 1 DROP BOTH EYES ×2 (08:48→19:57)
[2023-11-06] MEDS: DESENEX/MITRAZOL/ZEASORB 1 APPLIC TOPICAL ×2 (08:49→19:48)
--- NOTE | 2023-11-06 11:45 | CM ---
Case management following for d/c planning
Chart reviewed
Pt for transfer to [facility] when bed available
Auth previously obtained.
CM continues to follow for additional d/c needs
Plan: transfer to [place] by [facility] ambulance when bed is available.
[2023-11-06 12:00] VITALS: BP 154/122
[2023-11-06] MEDS: DUONEB 3 ML INH ×2 (12:04→19:46)
[2023-11-06] MEDS: NON-FORMULARY ITEM 3 UNIT PO ×3 (12:20→21:57)
--- NOTE | 2023-11-06 12:47 | CM ---
Notified by nurse that [facility] called saying that they were declining to accept the patient.
Spoke with Philip [facility] (ph [phone]); Dr Miller German, Maintenance And Utilities Supervisor interior design professional - Hospital Maintenance And Utilities Supervisor, said patient is declined for transfer.
Dr Kirk, Director Brigida Leavitt & JOJO Newton were notified.
Plan TBD.
[2023-11-06 12:48] LABS: Glucose - Point of Care 139 mg/dl (70-99)
[2023-11-06] MEDS: NOVOLOG FLEXPEN 3 UNITS SC ×2 (13:38→17:34)
[2023-11-06] MEDS: ATIVAN 1 MG IV (13:40)
[2023-11-06] MEDS: NSS (PRESERVATIVE FREE) 0.5 ML IV ×2 (13:54→13:55)
[2023-11-06] MEDS: SINEMET 25-100 2 TABLET TUBE ×2 (13:54→17:31)
[2023-11-06] MEDS: NON-FORMULARY ITEM 200 MG PO (13:55)
[2023-11-06] MEDS: BENADRYL 250 MG IV (15:35)
[2023-11-06] MEDS: ZYRTEC 10 MG TUBE ×2 (17:31→21:52)
[2023-11-06] MEDS: TYLENOL 650 MG PO (17:32)
[2023-11-06] MEDS: ZOFRAN 4 MG IV (17:32)
[2023-11-06] MEDS: NOVOLOG FLEXPEN-LOW RESISTANCE 1 UNITS SC (17:33)
[2023-11-06 17:39] VITALS: BP 112/87
[2023-11-06 17:41] LABS: Glucose - Point of Care 194 mg/dl (70-99)
--- NOTE | 2023-11-06 18:01 | PTCARENOTE ---
pt resting comfortably in bed for most of the day today. pt did have one dystonic episode that lasted approximately 90 minutes with varying degree of intensity. Dr Willoughby was notified and ordered now doses with some relief. pt is anxious at times, but
pleasant in conversation. transfer to [facility] was denied by [facility] admin. and social work notified
[2023-11-06] MEDS: COLACE 100 MG PO (19:45)
[2023-11-06 20:00] VITALS: BP 123/89
[2023-11-06 21:14] LABS: Glucose - Point of Care 150 mg/dl (70-99)
[2023-11-06] MEDS: FEOSOL 325 MG PO (21:50)
--- NOTE | 2023-11-06 22:24 | SUR.PHASEI ---
Pt resting in bed, anxious at times, but independently performing diversional activities. Pt requested PRN benadryl and ativan for tense feeling which she states comes before an attack at times. Assessment as documented. Call sanchez within reach.
[2023-11-07] VITALS (8 sets, daily range): BP systolic 119–136; BP diastolic 75–90; PULSE 118–122; O2SAT 93
[2023-11-07] MEDS: ATIVAN 2 MG SL ×5 (04:35→21:10)
[2023-11-07] MEDS: BENADRYL 25 MG IV ×5 (04:36→21:10)
[2023-11-07] MEDS: ZOFRAN 4 MG IV ×2 (04:36→10:59)
--- NOTE | 2023-11-07 05:27 | W.PN.HOSP.TC ---
Today's Communication/Plan
-
Continue current regimen including IV Benadryl drip
Pain control
PRN medications for dystonia
Assessment / Plan
Assessment / Plan
Impression:
Gram-negative bacteremia due to chronic infected PICC line.
Fever on admission with no evidence of sepsis (tachycardia likely fever mediated)
Conditions prior to admission:
1. Mast cell activation syndrome.
2. Chronic dystonic reaction.
3. Orthostatic hypotension with postural orthostatic and
tachycardia syndrome.
4. Dopa sensitive dystonia.
5. Steroid-induced diabetes.
6. Prior history of deep venous thrombosis and pulmonary embolism.
7. Chronic pain syndrome.
8. Migraine headaches.
9. Gastroesophageal reflux disease.
10. Benzodiazepine and opiate dependence.
11. Restless legs syndrome.
12. Insomnia.
13. History of vocal cord dysfunction.
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
15. Gastroparesis.
16. 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
17. 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
Plan:
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
PICC line removed and PICC line replaced on 09/23
Repeated blood cultures negative on 09/20 but no other cultures obtained
Finished cipro on 10/06/23 (was on 750mg BID)
GJ tube in place
Replaced by interventional radiology on 09/22
Replaced by interventional radiology 11/04 due to concern leakage
HX Recurrent Anaphylaxis / Mast Cell Flare Episodes on chronic steroids
Mast Cell Activation Syndrome
DOPA-Responsive Dystonia
-follows with Dr. Lizabeth Villanueva at [facility] hematology.
- Continue Ativan
�-cont Gleevac ,steroids
�--Levalbuterol as needed, to do her eyedrops
-Continue carbidopa levodopa
-prednisone continued
-Outpatient IV Benadryl drip at 15 milligram an hour upon presentation. As discussed with primary tag press operator Dr. Mora plan is to slowly taper.
dystonia/movement disorder-patient apparently has dystonic features with her mast cell activation syndrome. I could not find in literature as a routine clinical presentation but according to patient apparently this is very unusual feature which was
noted in few other patients . She is on IV Benadryl pump at 15 mg/h at home. Yesterday she had 2 episodes of them requiring as needed Ativan. In view of increased need of breakthrough medication consulted neurology.
-baclofen continued
-sinemet continued
-episodes with vasovagal response when trying to have a BM - start standing miralax and colace BID
Chronic pain syndrome-on high doses of narcotics (chronic opioid use with dependence) including p.o. Dilaudid and Suboxone at home. Again unclear the source of her pain.
GERD
-famotidine continued
-acipHex continued
-simethicone continued
iron def anemia
-ferrous sulfate continued
hxt of tachycardia
-EKG with sinus tachycardia
-propranolol continued
Chronic Nausea / Esophageal Dysmotility/gastroparesis
History GJ tube
�- Continue diet as tolerated.
�- Continue G-tube to gravity for chronic nausea.
�- Meds via J-tube.
-Zofran every 8 hours as needed
-Continue Pepcid
-emend continued
- PEG tube site without any signs of cellulitis. CT of the abdomen pelvis shows no subcutaneous collection around the PEG tube and it is in place.
Acute fractures of the left 6 anterolateral 6th and 7th ribs
-Suspect from recent fall on 10/03
-10/25 complains of pain on the posterolateral lower ribs
-Continue lidocaine patch, add heating packs
Steroid-Induced DM-II--
She remains on steady dose of prednisone
Blood glucose remains marginal
Monitor oral intake
Reduce Lantus and NovoLog AC
Continue serial Accu-Cheks with basal bolus protocol.
s/p fall overnight 10/03-10/04
imaging negative for bleed or fracture
one more dose IV dilaudid now
Steroid-Induced Osteoporosis
Chronic Pain Syndrome secondary to the above on chronic opiates
�- Continue buprenorphine 2 mg 4 times daily , Dilaudid 8 mg as needed
�- PT / OT evaluations.
�- Follow-up with usual eviction specialist after discharge.
allergy induced asthma
chronic hypoxic respiratory failure--on O2
-albuterol continued
-budesonide continued
-cetirizine continued
-cromolyn continued
Migraine Hx
ODT Nurtec as needed
Restless leg syndrome
-Continue baclofen
History of DVT/PE
#Takes subcu Lovenox 100 mg twice daily
DNR on admission
Disposition: Discussion with primary tag press operator Dr. Ethan Villanueva on 10/09. Discussed possibility of attempting weaning Benadryl drip likely could be done as outpatient. With current family social situation, unfortunately there is no options
for disposition other than home on IV infusion. Possibility of a transfer to [facility] discussed as well, although according to Dr. Villanueva hospital administration declined services due to complexity. Also discussed possibility of
transfer to tertiary center ([facility] declined in the past).
10/[address] Villanueva over the phone as well as [facility] transfer center.
Complex patient. Attempt to wean off Benadryl drip over the last 2 weeks with persistent dystonic episodes
While patient is relatively stable with her current condition, given complex clinical picture requiring multi disciplinary approach not limited to medicine, hematology, allergology, as well as neuropsychiatric assessment, patient would be better
served at a tertiary facility. Patient was accepted to [facility] for transfer, but hospital administration denied her transfer due to complexity (discussed with patient who is aware)
Physical Exam
General: Obese, no acute distress
HEENT: Normocephalic, Atraumatic, EOMI, MMM
Respiratory: Clear to Auscultation bilaterally
Cardiac: Normal S1/S2, Regular Rate and Rhythm
GI: Soft, +GJ tube, Nontender, Nondistended, Normal Bowel Sounds
MSK: Tenderness to palpation of the left posterolateral lateral ribs
Extremities: No Clubbing, Cyanosis, or Edema
Neuro: Nonfocal/Grossly Intact
Anticipated Discharge: > 48 hours
Subjective/Interval History
-
Date of Service: November 07, 2023
Seen and examined at bedside no acute distress sitting up comfortable in bed. Continues to report periodic dystonia manageable with current medications.
Objective Data
-
Vital Signs:
Vital Signs
Temp Pulse Resp BP Pulse Ox
98.2 F 96 14 130/84 94
11/07/23 04:14 11/07/23 02:00 11/07/23 02:00 11/07/23 00:00 11/07/23 02:00
I&O
11/05/23 11/06/23 11/07/23
06:59 06:59 06:59
Intake Total 610 / 610 960 / 960 1400 / 1400
Output Total 2099 / 2099 3100 / 3100 850 / 850
Balance -1490 / -1490 -2140 / -2140 550 / 550
[2023-11-07] MEDS: SINEMET 25-100 1.5 TABLET TUBE ×2 (05:56→09:15)
[2023-11-07] MEDS: LIORESAL 10 MG TUBE ×3 (05:57→21:47)
[2023-11-07] MEDS: PULMICORT 0.5 MG INH ×2 (07:38→19:35)
[2023-11-07] MEDS: DUONEB 3 ML INH (07:38)
[2023-11-07 08:56] LABS: Glucose - Point of Care 107 mg/dl (70-99)
[2023-11-07] MEDS: DELTASONE 10 MG TUBE ×2 (09:14→19:36)
[2023-11-07] MEDS: LANTUS 0.1 UNITS SC (09:14)
[2023-11-07] MEDS: LOVENOX 100 MG SC ×2 (09:14→19:37)
[2023-11-07] MEDS: CLARITIN 10 MG PO (09:16)
[2023-11-07] MEDS: SUBUTEX 2 MG SL ×4 (09:16→21:46)
[2023-11-07] MEDS: HYDREA 500 MG PO ×2 (09:16→19:36)
[2023-11-07] MEDS: INDERAL 10 MG TUBE ×3 (09:16→21:47)
[2023-11-07] MEDS: VITAMIN B1 100 MG TUBE (09:16)
[2023-11-07] MEDS: NSS (PRESERVATIVE FREE) 6 ML IV ×2 (09:17→19:39)
[2023-11-07] MEDS: PEPCID 40 MG IV ×2 (09:17→19:33)
[2023-11-07] MEDS: NON-FORMULARY ITEM 3 UNIT PO ×4 (09:18→21:48)
[2023-11-07] MEDS: COLACE PO ×2 (09:18→19:38)
[2023-11-07] MEDS: NOVOLOG FLEXPEN 3 UNITS SC ×3 (09:18→16:39)
[2023-11-07] MEDS: NOVOLOG FLEXPEN-LOW RESISTANCE SC ×3 (09:19→17:51)
[2023-11-07] MEDS: NON-FORMULARY ITEM 1 MG PO ×2 (09:20→19:36)
[2023-11-07] MEDS: NON-FORMULARY ITEM 20 UNIT PO (09:20)
[2023-11-07] MEDS: LIDOCAINE 4% PATCH 1 PATCH TOPICAL (09:21)
[2023-11-07] MEDS: NON-FORMULARY ITEM 80 MG PO (09:21)
[2023-11-07] MEDS: MIRALAX PO (09:22)
[2023-11-07] MEDS: NON-FORMULARY ITEM NASAL (09:22)
[2023-11-07] MEDS: ZADITOR 1 DROP BOTH EYES ×2 (09:22→19:40)
[2023-11-07] MEDS: DESENEX/MITRAZOL/ZEASORB 1 APPLIC TOPICAL ×2 (09:23→19:38)
[2023-11-07] MEDS: NSS 1000 IV (09:39)
[2023-11-07 12:09] LABS: Glucose - Point of Care 147 mg/dl (70-99)
--- NOTE | 2023-11-07 12:26 | CM ---
Returned call to Marline [facility] outreach service coor ([phone]), who is covering for Rae who has been following Mary as an outpt. Made Marline aware of [facility] declining Mary's transfer. Made her aware of the multiple SNF's, Rehabs
and LTAC's that we have referred Mary to that have declined her due to the IV benedryl drip and complexity of her care . She asked about status of her Mother allowing her to return home with the private duty PDN provided through [place]
[facility]. I stated that the Mother has refused her to return home as she feels overwhelmed with Mary's care and feels she has caregivers burnout. Marline stated that if perhaps we could wean her from some of her medications and if [facility]
offers more supports in the home for both Mary as well as her Mom, perhaps her Mom would be more inclined to let her come home. She offered that they would be willing to participate in a team meeting if we should have one and to call them back if
they can help in any way.
--- NOTE | 2023-11-07 12:53 | CM ---
Returned vm from Bobby Ontiveros, Mary's Mother. She stated that prior to leaving on vacation they dropped by some things for Mary and they did not know Mary was transferred to the [facility]. She requested a call back from Dr. Kirk, who I made her
aware that he is off today but I will ask him to call her when he gets back next week. I made her aware that [facility] had decilined her transfer. I asked her if we were able to wean some of Mary's medications and made her aware the [facility] had offered additional supports in the home for both Mary and herself , along with the 09/12 nursing would she reconsider taking Mary home. She stated she is not able to emotionally, physically,or financially able to at this time. She feels
that all of this stress has adversely affected her physical and mental health, which she is seeking care for.Update to .
[2023-11-07] MEDS: NON-FORMULARY ITEM 200 MG PO (14:09)
[2023-11-07] MEDS: SINEMET 25-100 2 TABLET TUBE ×2 (14:10→17:09)
[2023-11-07] MEDS: ZYRTEC 10 MG TUBE ×2 (16:36→21:47)
[2023-11-07 17:55] LABS: Glucose - Point of Care 150 mg/dl (70-99)
--- NOTE | 2023-11-07 17:58 | PTCARENOTE ---
pt was told of monet's refusal and was tearful and despondent. she only had one short dystonia episode for my shift which lasted less than 10 minutes and abated without medication. pt more pleasant in the afternoon. was OOB to the commode x 2
today
[2023-11-07] MEDS: NON-FORMULARY ITEM 1 UNIT PO (19:37)
[2023-11-07 21:43] LABS: Glucose - Point of Care 131 mg/dl (70-99)
[2023-11-07] MEDS: FEOSOL 325 MG PO (21:46)
--- NOTE | 2023-11-07 22:07 | PTCARENOTE ---
Pt c/o feeling onset of dystonic attack, requested PRN benadryl and ativan. Pt medicated per JUL. Pt lost part of a back molar during the attack. Site not bleeding, but pt does c/o mild pain. Assessment as documented. Hygiene care provided with
assist x1. Call sanchez within reach.
[2023-11-07] MEDS: BENADRYL 250 MG IV (23:10)
[2023-11-08] VITALS (7 sets, daily range): BP systolic 106–131; BP diastolic 68–89
[2023-11-08] MEDS: ZOFRAN 4 MG IV ×3 (02:11→18:01)
[2023-11-08] MEDS: BENADRYL 25 MG IV ×5 (02:11→20:05)
[2023-11-08] MEDS: ATIVAN 2 MG SL ×4 (02:11→20:05)
[2023-11-08] MEDS: SINEMET 25-100 1.5 TABLET TUBE ×2 (06:03→10:02)
[2023-11-08] MEDS: LIORESAL 10 MG TUBE ×3 (06:03→21:02)
[2023-11-08] MEDS: NON-FORMULARY ITEM 3 UNIT PO ×4 (06:05→21:04)
[2023-11-08] MEDS: PULMICORT 0.5 MG INH ×2 (07:32→19:29)
[2023-11-08] MEDS: DUONEB 3 ML INH ×2 (07:33→19:28)
[2023-11-08 07:34] LABS: Glucose - Point of Care 132 mg/dl (70-99)
[2023-11-08] MEDS: NOVOLOG FLEXPEN-LOW RESISTANCE SC ×3 (08:36→17:59)
[2023-11-08] MEDS: NOVOLOG FLEXPEN 3 UNITS SC ×3 (08:39→17:59)
[2023-11-08] MEDS: LOVENOX 100 MG SC ×2 (08:40→19:52)
[2023-11-08] MEDS: LIDOCAINE 4% PATCH 1 PATCH TOPICAL (08:42)
[2023-11-08] MEDS: MIRALAX PO (08:43)
[2023-11-08] MEDS: NON-FORMULARY ITEM NASAL (08:43)
[2023-11-08] MEDS: LANTUS 0.1 UNITS SC (08:46)
[2023-11-08] MEDS: NSS 1000 IV (08:51)
[2023-11-08] MEDS: SUBUTEX 2 MG SL ×4 (08:51→21:02)
[2023-11-08] MEDS: COLACE PO ×2 (08:52→20:24)
[2023-11-08] MEDS: CLARITIN 10 MG PO (08:52)
[2023-11-08] MEDS: VITAMIN B1 100 MG TUBE (08:53)
[2023-11-08] MEDS: INDERAL 10 MG TUBE ×3 (08:53→21:02)
[2023-11-08] MEDS: DELTASONE 10 MG TUBE ×2 (08:53→19:52)
[2023-11-08] MEDS: PEPCID 40 MG IV ×2 (08:54→19:51)
[2023-11-08] MEDS: HYDREA 500 MG PO ×2 (08:54→19:52)
[2023-11-08] MEDS: NSS (PRESERVATIVE FREE) 6 ML IV ×2 (08:55→19:51)
[2023-11-08] MEDS: DESENEX/MITRAZOL/ZEASORB 1 APPLIC TOPICAL ×2 (09:02→19:54)
[2023-11-08] MEDS: NON-FORMULARY ITEM 80 MG PO (09:02)
[2023-11-08] MEDS: NON-FORMULARY ITEM 1 MG PO ×2 (09:03→19:53)
[2023-11-08] MEDS: NON-FORMULARY ITEM 1 UNIT PO ×2 (09:04→19:54)
[2023-11-08] MEDS: ZADITOR 1 DROP BOTH EYES ×2 (09:06→19:55)
--- NOTE | 2023-11-08 09:23 | W.PN.HOSP.TC ---
Today's Communication/Plan
-
see bold
Assessment / Plan
Assessment / Plan
Impression:
Gram-negative bacteremia due to chronic infected PICC line.
Fever on admission with no evidence of sepsis (tachycardia likely fever mediated)
Conditions prior to admission:
1. Mast cell activation syndrome.
2. Chronic dystonic reaction.
3. Orthostatic hypotension with postural orthostatic and
tachycardia syndrome.
4. Dopa sensitive dystonia.
5. Steroid-induced diabetes.
6. Prior history of deep venous thrombosis and pulmonary embolism.
7. Chronic pain syndrome.
8. Migraine headaches.
9. Gastroesophageal reflux disease.
10. Benzodiazepine and opiate dependence.
11. Restless legs syndrome.
12. Insomnia.
13. History of vocal cord dysfunction.
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
15. Gastroparesis.
16. 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
17. 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
Plan:
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
PICC line removed and PICC line replaced on 09/23
Repeated blood cultures negative on 09/20 but no other cultures obtained
Finished cipro on 10/06/23 (was on 750mg BID)
GJ tube in place
Replaced by interventional radiology on 09/22
Replaced by interventional radiology 11/04 due to concern leakage
HX Recurrent Anaphylaxis / Mast Cell Flare Episodes on chronic steroids
Mast Cell Activation Syndrome
DOPA-Responsive Dystonia
-follows with Dr. Lizabeth Villanueva at [facility] hematology.
- Continue Ativan
�-cont Gleevac ,steroids
�--Levalbuterol as needed, to do her eyedrops
-Continue carbidopa levodopa
-prednisone continued
-Outpatient IV Benadryl drip at 15 milligram an hour upon presentation. As discussed with primary felt hat pouncing operator hand Dr. Mora plan is to slowly taper.
dystonia/movement disorder-patient apparently has dystonic features with her mast cell activation syndrome. I could not find in literature as a routine clinical presentation but according to patient apparently this is very unusual feature which was
noted in few other patients . She is on IV Benadryl pump at 15 mg/h at home. Yesterday she had 2 episodes of them requiring as needed Ativan. In view of increased need of breakthrough medication consulted neurology.
-baclofen continued
-sinemet continued
-episodes with vasovagal response when trying to have a BM - start standing miralax and colace BID
Chronic pain syndrome-on high doses of narcotics (chronic opioid use with dependence) including p.o. Dilaudid and Suboxone at home. Again unclear the source of her pain.
GERD
-famotidine continued
-acipHex continued
-simethicone continued
iron def anemia
-ferrous sulfate continued
hxt of tachycardia
-EKG with sinus tachycardia
-propranolol continued
Chronic Nausea / Esophageal Dysmotility/gastroparesis
History GJ tube
�- Continue diet as tolerated.
�- Continue G-tube to gravity for chronic nausea.
�- Meds via J-tube.
-Zofran every 8 hours as needed
-Continue Pepcid
-emend continued
- PEG tube site without any signs of cellulitis. CT of the abdomen pelvis shows no subcutaneous collection around the PEG tube and it is in place.
Acute fractures of the left 6 anterolateral 6th and 7th ribs
-Suspect from recent fall on 10/03
-10/25 complains of pain on the posterolateral lower ribs
-Continue lidocaine patch, add heating packs
Steroid-Induced DM-II--
She remains on steady dose of prednisone
Blood glucose remains marginal
Monitor oral intake
Reduce Lantus and NovoLog AC
Continue serial Accu-Cheks with basal bolus protocol.
s/p fall overnight 10/03-10/04
imaging negative for bleed or fracture
one more dose IV dilaudid now
Steroid-Induced Osteoporosis
Chronic Pain Syndrome secondary to the above on chronic opiates
�- Continue buprenorphine 2 mg 4 times daily , Dilaudid 8 mg as needed
�- PT / OT evaluations.
�- Follow-up with usual cost specialist after discharge.
allergy induced asthma
chronic hypoxic respiratory failure--on O2
-albuterol continued
-budesonide continued
-cetirizine continued
-cromolyn continued
Migraine Hx
ODT Nurtec as needed
Restless leg syndrome
-Continue baclofen
History of DVT/PE
#Takes subcu Lovenox 100 mg twice daily
DNR on admission
Disposition: Discussion with primary felt hat pouncing operator hand Dr. Ethan Villanueva on 10/09. Discussed possibility of attempting weaning Benadryl drip likely could be done as outpatient. With current family social situation, unfortunately there is no options
for disposition other than home on IV infusion. Possibility of a transfer to [facility] discussed as well, although according to Dr. Villanueva hospital administration declined services due to complexity. Also discussed possibility of
transfer to tertiary center ([facility] declined in the past).
10/[address] Villanueva over the phone as well as [facility] transfer center.
Complex patient. Attempt to wean off Benadryl drip over the last 2 weeks with persistent dystonic episodes
While patient is relatively stable with her current condition, given complex clinical picture requiring multi disciplinary approach not limited to medicine, hematology, allergology, as well as neuropsychiatric assessment, patient would be better
served at a tertiary facility. Patient was accepted to [facility] for transfer, but hospital administration denied her transfer due to complexity (discussed with patient who is aware)
Physical Exam
General: Obese, no acute distress
HEENT: Normocephalic, Atraumatic, EOMI, MMM
Respiratory: Clear to Auscultation bilaterally
Cardiac: Normal S1/S2, Regular Rate and Rhythm
GI: Soft, +GJ tube, Nontender, Nondistended, Normal Bowel Sounds
MSK: Tenderness to palpation of the left posterolateral lateral ribs
Extremities: No Clubbing, Cyanosis, or Edema
Neuro: Nonfocal/Grossly Intact
Anticipated Discharge: > 48 hours
Subjective/Interval History
-
Date of Service: November 08, 2023
No acute changes. No fever, no vomiting.
Objective Data
-
Vital Signs:
Vital Signs
Temp Pulse Resp BP Pulse Ox
98.3 F 109 14 117/75 96
11/08/23 07:28 11/08/23 08:53 11/08/23 07:40 11/08/23 08:53 11/08/23 07:40
I&O
11/07/23 11/08/23 11/09/23
06:59 06:59 06:59
Intake Total 1400 / 1400 480 / 480
Output Total 850 / 850 3550 / 3550
Balance 550 / 550 -3070 / -3070
[2023-11-08] MEDS: NON-FORMULARY ITEM 200 MG PO (13:15)
[2023-11-08 13:18] LABS: Glucose - Point of Care 123 mg/dl (70-99)
--- NOTE | 2023-11-08 13:31 | PTCARENOTE ---
Patient continues to have episodes of dystonia. Treated with Benadryl 25mg IV and Ativan PO. Patient had good appetite for breakfast, complaints of nausea treated with Zofran. Abdomen round, soft with normal bowels sounds. Patient washed up with
assitance, oral care completed.
[2023-11-08] MEDS: SINEMET 25-100 2 TABLET TUBE ×2 (13:41→16:51)
[2023-11-08] MEDS: ZYRTEC 10 MG TUBE ×2 (16:50→21:02)
[2023-11-08 17:59] LABS: Glucose - Point of Care 104 mg/dl (70-99)
[2023-11-08] MEDS: BENADRYL 250 MG IV (17:59)
[2023-11-08] MEDS: FEOSOL 325 MG PO (21:02)
[2023-11-08 21:40] LABS: Glucose - Point of Care 128 mg/dl (70-99)
--- NOTE | 2023-11-08 21:58 | PTCARENOTE ---
Pt AAOx3, mild tremor noted in lower extremities. Pt requested PRN benadryl and PRN ativan for dystonia. Upon assessment, pt states that she 'does not feel good' and is very tired. Assessment as documented. Assisted pt with hygiene care as needed.
Call sanchez within reach.
[2023-11-09] MEDS: NON-FORMULARY ITEM 3 UNIT PO (05:25)
[2023-11-09] MEDS: SINEMET 25-100 1.5 TABLET TUBE ×2 (05:26→10:02)
[2023-11-09] MEDS: LIORESAL 10 MG TUBE ×3 (05:27→21:09)
[2023-11-09] MEDS: BENADRYL 25 MG IV ×5 (05:41→22:18)
[2023-11-09] MEDS: ATIVAN 2 MG SL ×5 (05:41→22:20)
[2023-11-09 05:46] VITALS: BP 117/79
[2023-11-09] MEDS: DUONEB 3 ML INH ×3 (07:22→20:05)
[2023-11-09] MEDS: PULMICORT 0.5 MG INH ×2 (07:22→20:05)
[2023-11-09 08:00] VITALS: BP 115/85
[2023-11-09] MEDS: NOVOLOG FLEXPEN 3 UNITS SC ×3 (08:47→17:33)
[2023-11-09] MEDS: NOVOLOG FLEXPEN-LOW RESISTANCE SC ×2 (08:47→17:33)
[2023-11-09] MEDS: MIRALAX 17 GRAMS PO (08:49)
[2023-11-09] MEDS: LOVENOX 100 MG SC ×2 (08:49→21:10)
[2023-11-09] MEDS: LIDOCAINE 4% PATCH 1 PATCH TOPICAL (08:49)
[2023-11-09] MEDS: COLACE 100 MG PO ×2 (08:51→21:08)
[2023-11-09] MEDS: CLARITIN 10 MG PO (08:51)
[2023-11-09] MEDS: DELTASONE 10 MG TUBE ×2 (08:52→21:09)
[2023-11-09] MEDS: HYDREA 500 MG PO ×2 (08:52→21:08)
[2023-11-09] MEDS: DESENEX/MITRAZOL/ZEASORB 1 APPLIC TOPICAL ×2 (08:52→21:11)
[2023-11-09] MEDS: INDERAL 10 MG TUBE ×3 (08:53→21:09)
[2023-11-09] MEDS: VITAMIN B1 100 MG TUBE (08:53)
[2023-11-09] MEDS: ZADITOR 1 DROP BOTH EYES ×2 (08:54→21:12)
[2023-11-09] MEDS: NSS (PRESERVATIVE FREE) 6 ML IV ×2 (08:54→21:08)
[2023-11-09] MEDS: PEPCID 40 MG IV ×2 (08:54→21:07)
[2023-11-09] MEDS: NON-FORMULARY ITEM 80 MG PO (08:58)
[2023-11-09] MEDS: NON-FORMULARY ITEM 1 MG PO ×2 (09:00→21:12)
[2023-11-09] MEDS: NON-FORMULARY ITEM NASAL (09:01)
[2023-11-09] MEDS: NON-FORMULARY ITEM 1 UNIT PO ×4 (09:01→21:12)
[2023-11-09] MEDS: ZOFRAN 4 MG IV ×2 (09:08→22:18)
--- NOTE | 2023-11-09 09:25 | W.PN.HOSP.TC ---
Today's Communication/Plan
-
Start clotrimazole Troches for thrush
Assessment / Plan
Assessment / Plan
Impression:
Gram-negative bacteremia due to chronic infected PICC line.
Fever on admission with no evidence of sepsis (tachycardia likely fever mediated)
Conditions prior to admission:
1. Mast cell activation syndrome.
2. Chronic dystonic reaction.
3. Orthostatic hypotension with postural orthostatic and
tachycardia syndrome.
4. Dopa sensitive dystonia.
5. Steroid-induced diabetes.
6. Prior history of deep venous thrombosis and pulmonary embolism.
7. Chronic pain syndrome.
8. Migraine headaches.
9. Gastroesophageal reflux disease.
10. Benzodiazepine and opiate dependence.
11. Restless legs syndrome.
12. Insomnia.
13. History of vocal cord dysfunction.
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
15. Gastroparesis.
16. 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
17. 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
Plan:
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
PICC line removed and PICC line replaced on 09/23
Repeated blood cultures negative on 09/20 but no other cultures obtained
Finished cipro on 10/06/23 (was on 750mg BID)
GJ tube in place
Replaced by interventional radiology on 09/22
Replaced by interventional radiology 11/04 due to concern leakage
HX Recurrent Anaphylaxis / Mast Cell Flare Episodes on chronic steroids
Mast Cell Activation Syndrome
DOPA-Responsive Dystonia
-follows with Dr. Lizabeth Villanueva at [facility] hematology.
- Continue Ativan
�-cont Gleevac ,steroids
�--Levalbuterol as needed, to do her eyedrops
-Continue carbidopa levodopa
-prednisone continued
-Outpatient IV Benadryl drip at 15 milligram an hour upon presentation. As discussed with primary tractor operator Dr. Mora plan is to slowly taper.
dystonia/movement disorder-patient apparently has dystonic features with her mast cell activation syndrome. I could not find in literature as a routine clinical presentation but according to patient apparently this is very unusual feature which was
noted in few other patients . She is on IV Benadryl pump at 15 mg/h at home. Yesterday she had 2 episodes of them requiring as needed Ativan. In view of increased need of breakthrough medication consulted neurology.
-baclofen continued
-sinemet continued
-episodes with vasovagal response when trying to have a BM - start standing miralax and colace BID
Chronic pain syndrome-on high doses of narcotics (chronic opioid use with dependence) including p.o. Dilaudid and Suboxone at home. Again unclear the source of her pain.
GERD
-famotidine continued
-acipHex continued
-simethicone continued
iron def anemia
-ferrous sulfate continued
hxt of tachycardia
-EKG with sinus tachycardia
-propranolol continued
Chronic Nausea / Esophageal Dysmotility/gastroparesis
History GJ tube
�- Continue diet as tolerated.
�- Continue G-tube to gravity for chronic nausea.
�- Meds via J-tube.
-Zofran every 8 hours as needed
-Continue Pepcid
-emend continued
- PEG tube site without any signs of cellulitis. CT of the abdomen pelvis shows no subcutaneous collection around the PEG tube and it is in place.
Acute fractures of the left 6 anterolateral 6th and 7th ribs
-Suspect from recent fall on 10/03
-10/25 complains of pain on the posterolateral lower ribs
-Continue lidocaine patch, add heating packs
Steroid-Induced DM-II--
She remains on steady dose of prednisone
Blood glucose remains marginal
Monitor oral intake
Reduce Lantus and NovoLog AC
Continue serial Accu-Cheks with basal bolus protocol.
S/p fall overnight 10/03-10/04
imaging negative for bleed or fracture
one more dose IV dilaudid now
Steroid-Induced Osteoporosis
Chronic Pain Syndrome secondary to the above on chronic opiates
�- Continue buprenorphine 2 mg 4 times daily , Dilaudid 8 mg as needed
�- PT / OT evaluations.
�- Follow-up with usual technical specialist after discharge.
allergy induced asthma
chronic hypoxic respiratory failure--on O2
-albuterol continued
-budesonide continued
-cetirizine continued
-cromolyn continued
Thrush
Started clotrimazole Troches for thrush 11/08
Migraine Hx
ODT Nurtec as needed
Restless leg syndrome
-Continue baclofen
History of DVT/PE
#Takes subcu Lovenox 100 mg twice daily
DNR on admission
Disposition: Discussion with primary tractor operator Dr. Ethan Villanueva on 10/09. Discussed possibility of attempting weaning Benadryl drip likely could be done as outpatient. With current family social situation, unfortunately there is no options
for disposition other than home on IV infusion. Possibility of a transfer to [facility] discussed as well, although according to Dr. Villanueva hospital administration declined services due to complexity. Also discussed possibility of
transfer to tertiary center ([facility] declined in the past).
10/[address] Villanueva over the phone as well as [facility] transfer center.
Complex patient. Attempt to wean off Benadryl drip over the last 2 weeks with persistent dystonic episodes
While patient is relatively stable with her current condition, given complex clinical picture requiring multi disciplinary approach not limited to medicine, hematology, allergology, as well as neuropsychiatric assessment, patient would be better
served at a tertiary facility. Patient was accepted to [facility] for transfer, but hospital administration denied her transfer due to complexity (discussed with patient who is aware)
Physical Exam
General: Obese, no acute distress
HEENT: Normocephalic, Atraumatic, EOMI, MMM
Respiratory: Clear to Auscultation bilaterally
Cardiac: Normal S1/S2, Regular Rate and Rhythm
GI: Soft, +GJ tube, Nontender, Nondistended, Normal Bowel Sounds
MSK: Tenderness to palpation of the left posterolateral lateral ribs
Extremities: No Clubbing, Cyanosis, or Edema
Neuro: Nonfocal/Grossly Intact
Anticipated Discharge: > 48 hours
Subjective/Interval History
-
Date of Service: November 09, 2023
No acute events. Patient does report some white exudate on her tongue, feels like [place]. No fever, no vomiting.
Objective Data
-
Vital Signs:
Vital Signs
Temp Pulse Resp BP Pulse Ox
97.9 F 114 15 115/85 96
11/09/23 07:45 11/09/23 08:53 11/09/23 07:25 11/09/23 08:53 11/09/23 07:25
I&O
11/08/23 11/09/23 11/10/23
06:59 06:59 06:59
Intake Total 480 / 480 1504 / 1504
Output Total 3550 / 3550 4050 / 4050
Balance -3070 / -3070 -2546 / -2546
[2023-11-09] MEDS: SUBUTEX 2 MG SL ×4 (09:28→21:10)
[2023-11-09] MEDS: NSS 1000 IV (09:28)
[2023-11-09] MEDS: LANTUS 0.1 UNITS SC (09:28)
[2023-11-09 12:00] VITALS: BP 104/73
[2023-11-09] MEDS: BENADRYL 250 MG IV (12:21)
[2023-11-09 12:23] LABS: Glucose - Point of Care 153 mg/dl (70-99)
[2023-11-09] MEDS: NOVOLOG FLEXPEN-LOW RESISTANCE 1 UNITS SC (12:37)
[2023-11-09] MEDS: MYCELEX TROCHE 10 MG PO ×4 (12:40→21:09)
[2023-11-09] MEDS: SINEMET 25-100 2 TABLET TUBE ×2 (14:18→17:29)
--- NOTE | 2023-11-09 14:56 | PTCARENOTE ---
Patient had episode of dytonia. Treated with Ativan, Bendyl bolus and Albuterol treatment with relief. Father at bedside.
[2023-11-09] MEDS: GASTROCROM 300 MG PO ×2 (15:53→21:08)
[2023-11-09] MEDS: NON-FORMULARY ITEM 200 MG PO (15:55)
[2023-11-09 16:46] VITALS: BP 116/86
[2023-11-09 16:55] LABS: Glucose - Point of Care 110 mg/dl (70-99)
[2023-11-09] MEDS: ZYRTEC 10 MG TUBE ×2 (17:28→21:10)
[2023-11-09 20:00] VITALS: BP 115/80
[2023-11-09] MEDS: FEOSOL 325 MG PO (21:08)
[2023-11-09 21:42] LABS: Glucose - Point of Care 170 mg/dl (70-99)
[2023-11-10] VITALS: BP 107/71
[2023-11-10] MEDS: BENADRYL 25 MG IV ×6 (02:08→20:59)
[2023-11-10] MEDS: ATIVAN 2 MG SL ×4 (02:21→15:43)
[2023-11-10 04:00] VITALS: BP 107/76
--- NOTE | 2023-11-10 04:34 | PTCARENOTE ---
No acute events overnight. Prn ativan + benadryl given per patient request for an upcoming dystonia reaction.
[2023-11-10] MEDS: BENADRYL 250 MG IV ×2 (05:48→12:03)
[2023-11-10] MEDS: SINEMET 25-100 1.5 TABLET TUBE ×2 (05:48→09:03)
[2023-11-10] MEDS: GASTROCROM 300 MG PO ×4 (05:49→20:58)
[2023-11-10] MEDS: LIORESAL 10 MG TUBE ×3 (05:49→20:59)
[2023-11-10] MEDS: PULMICORT 0.5 MG INH ×2 (07:41→19:17)
[2023-11-10 08:00] VITALS: BP 111/81
[2023-11-10] MEDS: LANTUS 0.1 UNITS SC (08:49)
[2023-11-10] MEDS: MIRALAX 17 GRAMS PO (08:49)
[2023-11-10] MEDS: DELTASONE 10 MG TUBE ×2 (08:50→21:06)
[2023-11-10] MEDS: SUBUTEX 2 MG SL ×4 (08:50→20:59)
[2023-11-10] MEDS: VITAMIN B1 100 MG TUBE (08:50)
[2023-11-10] MEDS: CLARITIN 10 MG PO (08:50)
[2023-11-10] MEDS: COLACE 100 MG PO ×2 (08:50→21:00)
[2023-11-10] MEDS: HYDREA 500 MG PO ×2 (08:51→20:58)
[2023-11-10] MEDS: MYCELEX TROCHE 10 MG PO ×5 (08:51→20:59)
[2023-11-10] MEDS: INDERAL 10 MG TUBE ×3 (08:51→20:59)
[2023-11-10] MEDS: PEPCID 40 MG IV ×2 (08:52→21:01)
[2023-11-10] MEDS: NSS (PRESERVATIVE FREE) 6 ML IV ×2 (08:53→21:01)
[2023-11-10] MEDS: NOVOLOG FLEXPEN-LOW RESISTANCE SC ×3 (08:57→18:02)
[2023-11-10] MEDS: NOVOLOG FLEXPEN 3 UNITS SC ×2 (08:57→12:04)
[2023-11-10] MEDS: LOVENOX 100 MG SC ×2 (08:58→20:57)
[2023-11-10] MEDS: LIDOCAINE 4% PATCH 1 PATCH TOPICAL (08:58)
[2023-11-10] MEDS: NON-FORMULARY ITEM 1 MG PO ×2 (09:00→21:09)
[2023-11-10] MEDS: NON-FORMULARY ITEM 80 MG PO (09:00)
[2023-11-10 09:01] LABS: Glucose - Point of Care 104 mg/dl (70-99)
[2023-11-10] MEDS: NON-FORMULARY ITEM 1 UNIT PO ×2 (09:01→21:09)
[2023-11-10] MEDS: ZADITOR 1 DROP BOTH EYES ×2 (09:10→21:10)
[2023-11-10] MEDS: NSS 1000 IV (09:14)
[2023-11-10] MEDS: NON-FORMULARY ITEM NASAL (09:15)
[2023-11-10] MEDS: DESENEX/MITRAZOL/ZEASORB 1 APPLIC TOPICAL ×2 (09:16→21:01)
[2023-11-10 12:00] VITALS: BP 119/85
[2023-11-10 12:13] LABS: Glucose - Point of Care 143 mg/dl (70-99)
[2023-11-10 12:29] LABS: Glucose - Point of Care 106 mg/dl (70-99)
--- NOTE | 2023-11-10 12:36 | PTCARENOTE ---
IVANIAN Ativan and Benedryl requested and received for pre aura dystonia symptoms.
--- NOTE | 2023-11-10 13:50 | W.PN.HOSP.TC ---
Today's Communication/Plan
-
Continue slow taper Benadryl drip down to 11 mg an hour.
Assessment / Plan
Assessment / Plan
Impression:
Gram-negative bacteremia due to chronic infected PICC line.
Fever on admission with no evidence of sepsis (tachycardia likely fever mediated)
Conditions prior to admission:
1. Mast cell activation syndrome.
2. Chronic dystonic reaction.
3. Orthostatic hypotension with postural orthostatic and
tachycardia syndrome.
4. Dopa sensitive dystonia.
5. Steroid-induced diabetes.
6. Prior history of deep venous thrombosis and pulmonary embolism.
7. Chronic pain syndrome.
8. Migraine headaches.
9. Gastroesophageal reflux disease.
10. Benzodiazepine and opiate dependence.
11. Restless legs syndrome.
12. Insomnia.
13. History of vocal cord dysfunction.
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
15. Gastroparesis.
16. 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
17. 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
Plan:
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
PICC line removed and PICC line replaced on 09/23
Repeated blood cultures negative on 09/20 but no other cultures obtained
Finished cipro on 10/06/23 (was on 750mg BID)
GJ tube in place
Replaced by interventional radiology on 09/22
Replaced by interventional radiology 11/04 due to concern leakage
HX Recurrent Anaphylaxis / Mast Cell Flare Episodes on chronic steroids
Mast Cell Activation Syndrome
DOPA-Responsive Dystonia
-follows with Dr. Lizabeth Villanueva at [facility] hematology.
- Continue Ativan
�-cont Gleevac ,steroids
�--Levalbuterol as needed, to do her eyedrops
-Continue carbidopa levodopa
-prednisone continued
-Outpatient IV Benadryl drip at 15 milligram an hour upon presentation. As discussed with primary warehouse shipping supervisor Dr. Mora plan is to slowly taper. Decrease Benadryl drip to 11 mg an hour on 11/09.
dystonia/movement disorder-patient apparently has dystonic features with her mast cell activation syndrome. I could not find in literature as a routine clinical presentation but according to patient apparently this is very unusual feature which was
noted in few other patients . She is on IV Benadryl pump at 15 mg/h at home. Yesterday she had 2 episodes of them requiring as needed Ativan. In view of increased need of breakthrough medication consulted neurology.
-baclofen continued
-sinemet continued
-episodes with vasovagal response when trying to have a BM - start standing miralax and colace BID
Chronic pain syndrome-on high doses of narcotics (chronic opioid use with dependence) including p.o. Dilaudid and Suboxone at home. Again unclear the source of her pain.
GERD
-famotidine continued
-acipHex continued
-simethicone continued
iron def anemia
-ferrous sulfate continued
hxt of tachycardia
-EKG with sinus tachycardia
-propranolol continued
Chronic Nausea / Esophageal Dysmotility/gastroparesis
History GJ tube
�- Continue diet as tolerated.
�- Continue G-tube to gravity for chronic nausea.
�- Meds via J-tube.
-Zofran every 8 hours as needed
-Continue Pepcid
-emend continued
- PEG tube site without any signs of cellulitis. CT of the abdomen pelvis shows no subcutaneous collection around the PEG tube and it is in place.
Acute fractures of the left 6 anterolateral 6th and 7th ribs
-Suspect from recent fall on 10/03
-10/25 complains of pain on the posterolateral lower ribs
-Continue lidocaine patch, add heating packs
Steroid-Induced DM-II--
She remains on steady dose of prednisone
Blood glucose remains marginal
Monitor oral intake
Reduce Lantus and NovoLog AC
Continue serial Accu-Cheks with basal bolus protocol.
S/p fall overnight 10/03-10/04
imaging negative for bleed or fracture
one more dose IV dilaudid now
Steroid-Induced Osteoporosis
Chronic Pain Syndrome secondary to the above on chronic opiates
�- Continue buprenorphine 2 mg 4 times daily , Dilaudid 8 mg as needed
�- PT / OT evaluations.
�- Follow-up with usual staffing specialist after discharge.
allergy induced asthma
chronic hypoxic respiratory failure--on O2
-albuterol continued
-budesonide continued
-cetirizine continued
-cromolyn continued
Thrush
Started clotrimazole Troches for thrush 11/08
Migraine Hx
ODT Nurtec as needed
Restless leg syndrome
-Continue baclofen
History of DVT/PE
#Takes subcu Lovenox 100 mg twice daily
DNR on admission
Disposition: Discussion with primary warehouse shipping supervisor Dr. Ethan Villanueva on 10/09. Discussed possibility of attempting weaning Benadryl drip likely could be done as outpatient. With current family social situation, unfortunately there is no options
for disposition other than home on IV infusion. Possibility of a transfer to [facility] discussed as well, although according to Dr. Villanueva hospital administration declined services due to complexity. Also discussed possibility of
transfer to tertiary center ([facility] declined in the past).
10/[address] Villanueva over the phone as well as [facility] transfer center.
Complex patient. Attempt to wean off Benadryl drip over the last 2 weeks with persistent dystonic episodes
While patient is relatively stable with her current condition, given complex clinical picture requiring multi disciplinary approach not limited to medicine, hematology, allergology, as well as neuropsychiatric assessment, patient would be better
served at a tertiary facility. Patient was accepted to [facility] for transfer, but hospital administration denied her transfer due to complexity (discussed with patient who is aware)
Anticipated Discharge: > 48 hours
Subjective/Interval History
-
Date of Service: November 10, 2023
Objective Data
-
Vital Signs:
Vital Signs
Temp Pulse Resp BP Pulse Ox
98.0 F 103 17 119/85 98
11/10/23 07:55 11/10/23 12:00 11/10/23 12:00 11/10/23 12:00 11/10/23 12:00
I&O
11/09/23 11/10/23 11/11/23
06:59 06:59 06:59
Intake Total 1504 / 1504 2600 / 2600
Output Total 4050 / 4050 2750 / 2750 950 / 950
Balance -2546 / -2546 -150 / -150 -950 / -950
Physical Exam
-
General: Well Developed and No Apparent Distress
HEENT: Normocephalic, Atraumatic and Moist Mucous Membranes
Respiratory: Clear to Auscultation
Cardiac: Regular Rhythm and S1/S2; Negative Murmur, Rub or Gallop
GI: Soft, Nontender, Nondistended, Normal Bowel Sounds and Peg Tube; Negative Organomegaly
Rectal: Deferred by Provider
Musculoskeletal: No Clubbing, No Cyanosis and No Edema
Skin: Negative Rash
Neuro: Awake, Alert, Oriented, AO x 3 and Nonfocal/Grossly Intact
[2023-11-10] MEDS: TYLENOL 650 MG PO (14:41)
[2023-11-10] MEDS: SINEMET 25-100 2 TABLET TUBE ×2 (14:42→17:36)
[2023-11-10] MEDS: NON-FORMULARY ITEM 2 MG PO (14:43)
--- NOTE | 2023-11-10 15:02 | CM ---
CM reviewed chart- ADC >48 hours
Pt continues in IMU and continued plan of tapered benadryl drip
Pt has been denied transfer to [facility] by their management
Reviewed in depth with CM Director/Brigida Mayfield
At this time, pt has no home to return to on dc
Leni URIBE continues to look for new housing arrangements
Mother continues to refuse pt to return to home at this time
CM will remains available for dc planning
Discharge Disposition- TBD
[2023-11-10 16:00] VITALS: BP 128/81
[2023-11-10] MEDS: ZOFRAN 4 MG IV (17:08)
[2023-11-10] MEDS: ZYRTEC 10 MG TUBE ×2 (17:37→20:59)
[2023-11-10] MEDS: ATIVAN 2 MG IV (17:57)
[2023-11-10] MEDS: NSS (PRESERVATIVE FREE) 1 ML IV (17:59)
[2023-11-10] MEDS: NOVOLOG FLEXPEN SC (18:02)
--- NOTE | 2023-11-10 18:08 | PTCARENOTE ---
OOB to chair with my assistance- after receiving another prn Ativan and Benedryl at her request. After about an hour she wanted back to bed felt an episode gonna happen. Asked to another dose of IV Benedryl- d/w Dr. Kirk- Order obtained and
given. Ice pack to back of neck and cool clothed skin.
Back to bed tele shows [address], skin is soaked sweaty, eyes upward, fingers and body contracted- BP 128/81 97% on 2L NC. D/w Dr. Kirk- IV Ativan given. Cool cloth applied.
[2023-11-10 18:10] LABS: Glucose - Point of Care 113 mg/dl (70-99)
--- NOTE | 2023-11-10 18:24 | PTCARENOTE ---
Episode resolved, bathing now- whole bed changed.
[2023-11-10] MEDS: FEOSOL 325 MG PO ×2 (20:58)
[2023-11-10 22:08] LABS: Glucose - Point of Care 127 mg/dl (70-99)
[2023-11-10 22:09] VITALS: BP 124/69
[2023-11-11] VITALS (8 sets, daily range): BP systolic 113–137; BP diastolic 71–117; PULSE 114; O2SAT 95
[2023-11-11] MEDS: DILAUDID 8 MG PO ×3 (02:30→22:19)
[2023-11-11] MEDS: ATIVAN 2 MG SL ×6 (02:30→21:21)
[2023-11-11] MEDS: BENADRYL 25 MG IV ×6 (02:31→20:37)
[2023-11-11] MEDS: ZOFRAN 4 MG IV ×3 (02:31→16:45)
--- NOTE | 2023-11-11 04:18 | PTCARENOTE ---
No acute events overnight. PRN dilaudid given for pain. PRN benadryl + ativan given per request to prevent dystonia event. Benadryl gtt weaned to 11mg/hr.
[2023-11-11] MEDS: GASTROCROM 300 MG PO ×4 (06:05→21:43)
[2023-11-11] MEDS: LIORESAL 10 MG TUBE ×3 (06:06→21:45)
[2023-11-11] MEDS: SINEMET 25-100 1.5 TABLET TUBE ×2 (06:06→09:08)
[2023-11-11] MEDS: PULMICORT 0.5 MG INH ×2 (08:37→19:20)
[2023-11-11] MEDS: DUONEB 3 ML INH ×2 (08:38→17:39)
[2023-11-11 08:41] LABS: Glucose - Point of Care 153 mg/dl (70-99)
[2023-11-11] MEDS: LIDOCAINE 4% PATCH 1 PATCH TOPICAL (08:53)
[2023-11-11] MEDS: MIRALAX 17 GRAMS PO (08:53)
[2023-11-11] MEDS: NOVOLOG FLEXPEN-LOW RESISTANCE 1 UNITS SC ×2 (08:54→17:17)
[2023-11-11] MEDS: NSS 1000 IV (08:54)
[2023-11-11] MEDS: NOVOLOG FLEXPEN 3 UNITS SC ×3 (08:55→17:17)
[2023-11-11] MEDS: LANTUS 0.1 UNITS SC (08:56)
[2023-11-11] MEDS: VITAMIN B1 100 MG TUBE (08:57)
[2023-11-11] MEDS: CLARITIN 10 MG PO (08:57)
[2023-11-11] MEDS: LOVENOX 100 MG SC ×2 (08:57→21:45)
[2023-11-11] MEDS: MYCELEX TROCHE 10 MG PO ×5 (08:57→21:56)
[2023-11-11] MEDS: SUBUTEX 2 MG SL ×4 (08:57→21:44)
[2023-11-11] MEDS: COLACE 100 MG PO ×2 (08:57→21:43)
[2023-11-11] MEDS: HYDREA 500 MG PO ×2 (08:58→21:45)
[2023-11-11] MEDS: DELTASONE 10 MG TUBE ×2 (08:58→21:45)
[2023-11-11] MEDS: PEPCID 40 MG IV ×2 (08:58→21:44)
[2023-11-11] MEDS: INDERAL 10 MG TUBE ×3 (08:58→21:44)
[2023-11-11] MEDS: NSS (PRESERVATIVE FREE) 6 ML IV ×2 (08:59→21:44)
[2023-11-11] MEDS: NON-FORMULARY ITEM 1 UNIT PO ×2 (09:01→21:46)
[2023-11-11] MEDS: NON-FORMULARY ITEM 1 MG PO ×2 (09:02→21:46)
[2023-11-11] MEDS: NON-FORMULARY ITEM 80 MG PO (09:03)
[2023-11-11] MEDS: ZADITOR 1 DROP BOTH EYES ×2 (09:03→21:43)
[2023-11-11] MEDS: NON-FORMULARY ITEM NASAL (09:04)
[2023-11-11] MEDS: DESENEX/MITRAZOL/ZEASORB 1 APPLIC TOPICAL ×2 (09:08→21:43)
[2023-11-11] MEDS: BENADRYL 250 MG IV (09:31)
[2023-11-11] MEDS: NOVOLOG FLEXPEN-LOW RESISTANCE SC (11:47)
[2023-11-11 11:57] LABS: Glucose - Point of Care 140 mg/dl (70-99)
[2023-11-11] MEDS: SINEMET 25-100 2 TABLET TUBE ×2 (14:12→18:41)
[2023-11-11] MEDS: NON-FORMULARY ITEM 200 MG PO (14:13)
--- NOTE | 2023-11-11 15:24 | W.PN.HOSP.TC ---
Today's Communication/Plan
-
Continue IV Benadryl drip with reduced dose down to 11 mg an hour.
Assessment / Plan
Assessment / Plan
Impression:
Gram-negative bacteremia due to chronic infected PICC line.
Fever on admission with no evidence of sepsis (tachycardia likely fever mediated)
Conditions prior to admission:
1. Mast cell activation syndrome.
2. Chronic dystonic reaction.
3. Orthostatic hypotension with postural orthostatic and
tachycardia syndrome.
4. Dopa sensitive dystonia.
5. Steroid-induced diabetes.
6. Prior history of deep venous thrombosis and pulmonary embolism.
7. Chronic pain syndrome.
8. Migraine headaches.
9. Gastroesophageal reflux disease.
10. Benzodiazepine and opiate dependence.
11. Restless legs syndrome.
12. Insomnia.
13. History of vocal cord dysfunction.
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
15. Gastroparesis.
16. 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
17. 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
Plan:
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
PICC line removed and PICC line replaced on 09/23
Repeated blood cultures negative on 09/20 but no other cultures obtained
Finished cipro on 10/06/23 (was on 750mg BID)
GJ tube in place
Replaced by interventional radiology on 09/22
Replaced by interventional radiology 11/04 due to concern leakage
HX Recurrent Anaphylaxis / Mast Cell Flare Episodes on chronic steroids
Mast Cell Activation Syndrome
DOPA-Responsive Dystonia
-follows with Dr. Lizabeth Villanueva at [facility] hematology.
- Continue Ativan
�-cont Gleevac ,steroids
�--Levalbuterol as needed, to do her eyedrops
-Continue carbidopa levodopa
-prednisone continued
-Outpatient IV Benadryl drip at 15 milligram an hour upon presentation. As discussed with primary cement tester assistant Dr. Mora plan is to slowly taper. Decrease Benadryl drip to 11 mg an hour on 11/09.
dystonia/movement disorder-patient apparently has dystonic features with her mast cell activation syndrome. I could not find in literature as a routine clinical presentation but according to patient apparently this is very unusual feature which was
noted in few other patients . She is on IV Benadryl pump at 15 mg/h at home. Yesterday she had 2 episodes of them requiring as needed Ativan. In view of increased need of breakthrough medication consulted neurology.
-baclofen continued
-sinemet continued
-episodes with vasovagal response when trying to have a BM - start standing miralax and colace BID
Chronic pain syndrome-on high doses of narcotics (chronic opioid use with dependence) including p.o. Dilaudid and Suboxone at home. Again unclear the source of her pain.
GERD
-famotidine continued
-acipHex continued
-simethicone continued
iron def anemia
-ferrous sulfate continued
hxt of tachycardia
-EKG with sinus tachycardia
-propranolol continued
Chronic Nausea / Esophageal Dysmotility/gastroparesis
History GJ tube
�- Continue diet as tolerated.
�- Continue G-tube to gravity for chronic nausea.
�- Meds via J-tube.
-Zofran every 8 hours as needed
-Continue Pepcid
-emend continued
- PEG tube site without any signs of cellulitis. CT of the abdomen pelvis shows no subcutaneous collection around the PEG tube and it is in place.
Acute fractures of the left 6 anterolateral 6th and 7th ribs
-Suspect from recent fall on 10/03
-10/25 complains of pain on the posterolateral lower ribs
-Continue lidocaine patch, add heating packs
Steroid-Induced DM-II--
She remains on steady dose of prednisone
Blood glucose remains marginal
Monitor oral intake
Reduce Lantus and NovoLog AC
Continue serial Accu-Cheks with basal bolus protocol.
S/p fall overnight 10/03-10/04
imaging negative for bleed or fracture
one more dose IV dilaudid now
Steroid-Induced Osteoporosis
Chronic Pain Syndrome secondary to the above on chronic opiates
�- Continue buprenorphine 2 mg 4 times daily , Dilaudid 8 mg as needed
�- PT / OT evaluations.
�- Follow-up with usual family development specialist after discharge.
allergy induced asthma
chronic hypoxic respiratory failure--on O2
-albuterol continued
-budesonide continued
-cetirizine continued
-cromolyn continued
Thrush
Started clotrimazole Troches for thrush 11/08
Migraine Hx
ODT Nurtec as needed
Restless leg syndrome
-Continue baclofen
History of DVT/PE
#Takes subcu Lovenox 100 mg twice daily
DNR on admission
Disposition: Discussion with primary cement tester assistant Dr. Ethan Villanueva on 10/09. Discussed possibility of attempting weaning Benadryl drip likely could be done as outpatient. With current family social situation, unfortunately there is no options
for disposition other than home on IV infusion. Possibility of a transfer to [facility] discussed as well, although according to Dr. Villanueva hospital administration declined services due to complexity. Also discussed possibility of
transfer to tertiary center ([facility] declined in the past).
10/[address] Villanueva over the phone as well as [facility] transfer center.
Complex patient. Attempt to wean off Benadryl drip over the last 2 weeks with persistent dystonic episodes
While patient is relatively stable with her current condition, given complex clinical picture requiring multi disciplinary approach not limited to medicine, hematology, allergology, as well as neuropsychiatric assessment, patient would be better
served at a tertiary facility. Patient was accepted to [facility] for transfer, but hospital administration denied her transfer due to complexity (discussed with patient who is aware)
Anticipated Discharge: > 48 hours
Subjective/Interval History
-
Date of Service: November 11, 2023
Objective Data
-
Vital Signs:
Vital Signs
Temp Pulse Resp BP Pulse Ox
98.2 F 110 25 130/88 99
11/11/23 11:15 11/11/23 14:00 11/11/23 14:00 11/11/23 12:00 11/11/23 14:00
I&O
11/10/23 11/11/23 11/12/23
06:59 06:59 06:59
Intake Total 2600 / 2600 3152 / 3152
Output Total 2750 / 2750 3750 / 3750
Balance -150 / -150 -598 / -598
Physical Exam
-
General: Well Developed and No Apparent Distress
HEENT: Normocephalic, Atraumatic and Moist Mucous Membranes
Respiratory: Clear to Auscultation
Cardiac: Regular Rhythm and S1/S2; Negative Murmur, Rub or Gallop
GI: Soft, Nontender, Nondistended and Normal Bowel Sounds; Negative Organomegaly
Rectal: Deferred by Provider
Musculoskeletal: No Clubbing, No Cyanosis and No Edema
Skin: Negative Rash
Neuro: Nonfocal/Grossly Intact
[2023-11-11] MEDS: ZYRTEC 10 MG TUBE ×2 (16:44→21:44)
[2023-11-11] MEDS: TYLENOL 650 MG PO (16:45)
[2023-11-11 16:48] LABS: Glucose - Point of Care 156 mg/dl (70-99)
--- NOTE | 2023-11-11 17:24 | PTCARENOTE ---
Pt presents as assessed. Medicated with PRN Ativan, Benadryl and Zofran per request to prevent episodes of dystonia. Vomited X1, reports feeling better after Zofran administration. OOB to chair with PT for a short time. Care as documented. Able to
make needs known, call sanchez within reach.
--- NOTE | 2023-11-11 18:03 | PTCARENOTE ---
Addendum entered by Mirella Brown 11/11/23 18:26:
Dystonia subsiding and pt appearing calmer s/p Epi administration. Dr. Jeffrey notified. No further orders receive at this time.
Addendum entered by Mirella Brown 11/11/23 18:19:
Pt still with dystonic flare despite Ativan and Benadryl. D/W CC Dr. Jeffrey, advised to administer PRN Epi. Given as ordered, see MAR.
Original Note:
Pt with dystonia attack. Pt presents with coughing, rigid muscle spasms, flushed face, tachycardia, and diaphoresis. PRN IVP Benadryl administered. CC MD Dr. Jeffrey contacted, order received for additional one time dose of SL Ativan, administered as
ordered. Pt continues with dystonia at this time.
[2023-11-11] MEDS: ADRENALIN 0.3 MG IM ×2 (18:15→21:22)
[2023-11-11] MEDS: ATIVAN 1 MG IV (21:41)
[2023-11-11] MEDS: NSS (PRESERVATIVE FREE) 0.5 ML IV (21:41)
[2023-11-11] MEDS: FEOSOL 325 MG PO (21:43)
[2023-11-11 21:54] LABS: Glucose - Point of Care 138 mg/dl (70-99)
--- NOTE | 2023-11-11 22:30 | PTCARENOTE ---
Patient with dystonia reaction unreleaived by prn epi and ativan. calliope player provider made aware and ordered 1x dose 1 mg IV ativan. Given with relief.
[2023-11-12] VITALS (7 sets, daily range): BP systolic 100–123; BP diastolic 59–81
[2023-11-12] MEDS: ZOFRAN 4 MG IV ×2 (00:24→17:10)
[2023-11-12] MEDS: BENADRYL 25 MG IV ×6 (00:24→22:01)
[2023-11-12] MEDS: ATIVAN 2 MG SL ×5 (02:09→22:01)
[2023-11-12 03:28] LABS: Glucose - Point of Care 141 mg/dl (70-99)
--- NOTE | 2023-11-12 03:37 | W.PN.UPDATE ---
Update Note
Progress Note Update
DIESEL LUBE TECH
Per nursing staff, patient had unwitnessed fall. Patient was found on the floor by the nursing staff and went unresponsive for few seconds.
--On assessment patient is alert and oriented, vital signs within normal limit. B/L knees and LT arm noted with bruises.
Patient currently on Lovenox 100mg BID
- Head CT ordered
- B/L knee and LT arm x-ray ordered.
-Neuro checks and fall precautions in place.
--- NOTE | 2023-11-12 04:42 | PTCARENOTE ---
Patient with unwitnessed fall. No visible injuries. linting machine operator provider and concrete pouring supervisor to bedside. Patient brought down for stat head CT and multiple xrays.
[2023-11-12] MEDS: DILAUDID 8 MG PO ×2 (05:09→15:09)
[2023-11-12] MEDS: GASTROCROM 300 MG PO ×4 (06:37→21:31)
[2023-11-12] MEDS: SINEMET 25-100 1.5 TABLET TUBE ×2 (06:38→10:08)
[2023-11-12] MEDS: LIORESAL 10 MG TUBE ×3 (06:38→21:30)
[2023-11-12] MEDS: DUONEB 3 ML INH ×2 (08:02→19:33)
[2023-11-12] MEDS: PULMICORT 0.5 MG INH ×2 (08:02→19:33)
[2023-11-12 08:11] LABS: Glucose - Point of Care 109 mg/dl (70-99)
[2023-11-12] MEDS: LIDOCAINE 4% PATCH 1 PATCH TOPICAL (08:19)
[2023-11-12] MEDS: NSS 1000 IV (08:19)
[2023-11-12] MEDS: BENADRYL 250 MG IV (08:19)
[2023-11-12] MEDS: PEPCID 40 MG IV ×2 (08:23→21:31)
[2023-11-12] MEDS: NSS (PRESERVATIVE FREE) 6 ML IV ×2 (08:23→21:33)
[2023-11-12] MEDS: COLACE 100 MG PO ×2 (08:24→21:28)
[2023-11-12] MEDS: MYCELEX TROCHE 10 MG PO ×5 (08:24→21:30)
[2023-11-12] MEDS: SUBUTEX 2 MG SL ×4 (08:24→21:30)
[2023-11-12] MEDS: MIRALAX 17 GRAMS PO (08:24)
[2023-11-12] MEDS: LOVENOX 100 MG SC ×2 (08:24→21:31)
[2023-11-12] MEDS: HYDREA 500 MG PO ×2 (08:24→21:30)
[2023-11-12] MEDS: VITAMIN B1 100 MG TUBE (08:24)
[2023-11-12] MEDS: CLARITIN 10 MG PO (08:24)
[2023-11-12] MEDS: DELTASONE 10 MG TUBE ×2 (08:24→21:29)
[2023-11-12] MEDS: ZADITOR 1 DROP BOTH EYES ×2 (08:25→21:32)
[2023-11-12] MEDS: INDERAL 10 MG TUBE ×3 (08:25→21:35)
[2023-11-12] MEDS: NON-FORMULARY ITEM PO (08:29)
[2023-11-12] MEDS: NON-FORMULARY ITEM 1 UNIT PO ×2 (08:29→21:34)
[2023-11-12] MEDS: NON-FORMULARY ITEM 80 MG PO (08:30)
[2023-11-12] MEDS: DESENEX/MITRAZOL/ZEASORB 1 APPLIC TOPICAL (08:30)
[2023-11-12] MEDS: NON-FORMULARY ITEM NASAL (08:31)
[2023-11-12] MEDS: NOVOLOG FLEXPEN-LOW RESISTANCE SC ×2 (08:41→17:20)
[2023-11-12] MEDS: LANTUS 0.1 UNITS SC (08:51)
[2023-11-12] MEDS: NOVOLOG FLEXPEN 3 UNITS SC ×3 (08:51→17:21)
[2023-11-12] MEDS: TYLENOL 650 MG PO (08:52)
--- NOTE | 2023-11-12 09:16 | CHAP ---
Addendum entered by Jennifer Farris 11/14/23 14:09:
Ethics panel deferred while medical team works to change her medications to allow for discharge planning. Ethics panel is available if needed.
Original Note:
Ethics consult received. Will meet with involved clinicians and report back soon regarding convening of panel.
[2023-11-12] MEDS: NOVOLOG FLEXPEN-LOW RESISTANCE 1 UNITS SC (12:11)
[2023-11-12 12:15] LABS: Glucose - Point of Care 169 mg/dl (70-99)
[2023-11-12] MEDS: NON-FORMULARY ITEM 200 MG PO (13:01)
[2023-11-12] MEDS: SINEMET 25-100 2 TABLET TUBE ×2 (13:01→17:12)
--- NOTE | 2023-11-12 14:32 | W.PN.HOSP.TC ---
Today's Communication/Plan
-
Continue IV Benadryl drip currently under slow taper down 1 mg every 72 hours
Monitor for recurrent dystonic reaction which she is exhibiting on a daily basis. Latest treated with additional dose of IV Benadryl and lorazepam with quick resolution.
Physical therapy.
Assessment / Plan
Assessment / Plan
Impression:
Gram-negative bacteremia due to chronic infected PICC line.
Fever on admission with no evidence of sepsis (tachycardia likely fever mediated)
Conditions prior to admission:
1. Mast cell activation syndrome.
2. Chronic dystonic reaction.
3. Orthostatic hypotension with postural orthostatic and
tachycardia syndrome.
4. Dopa sensitive dystonia.
5. Steroid-induced diabetes.
6. Prior history of deep venous thrombosis and pulmonary embolism.
7. Chronic pain syndrome.
8. Migraine headaches.
9. Gastroesophageal reflux disease.
10. Benzodiazepine and opiate dependence.
11. Restless legs syndrome.
12. Insomnia.
13. History of vocal cord dysfunction.
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
15. Gastroparesis.
16. 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
17. 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
Plan:
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
PICC line removed and PICC line replaced on 09/23
Repeated blood cultures negative on 09/20 but no other cultures obtained
Finished cipro on 10/06/23 (was on 750mg BID)
GJ tube in place
Replaced by interventional radiology on 09/22
Replaced by interventional radiology 11/04 due to concern leakage
HX Recurrent Anaphylaxis / Mast Cell Flare Episodes on chronic steroids
Mast Cell Activation Syndrome
DOPA-Responsive Dystonia
-follows with Dr. Lizabeth Villanueva at [facility] hematology.
- Continue Ativan
�-cont Gleevac ,steroids
�--Levalbuterol as needed, to do her eyedrops
-Continue carbidopa levodopa
-prednisone continued
-Outpatient IV Benadryl drip at 15 milligram an hour upon presentation. As discussed with primary systems software designer Dr. Mora plan is to slowly taper. Decrease Benadryl drip to 11 mg an hour on 11/09.
dystonia/movement disorder-patient apparently has dystonic features with her mast cell activation syndrome. I could not find in literature as a routine clinical presentation but according to patient apparently this is very unusual feature which was
noted in few other patients . She is on IV Benadryl pump at 15 mg/h at home. Yesterday she had 2 episodes of them requiring as needed Ativan. In view of increased need of breakthrough medication consulted neurology.
-baclofen continued
-sinemet continued
-episodes with vasovagal response when trying to have a BM - start standing miralax and colace BID
Chronic pain syndrome-on high doses of narcotics (chronic opioid use with dependence) including p.o. Dilaudid and Suboxone at home. Again unclear the source of her pain.
GERD
-famotidine continued
-acipHex continued
-simethicone continued
iron def anemia
-ferrous sulfate continued
hxt of tachycardia
-EKG with sinus tachycardia
-propranolol continued
Chronic Nausea / Esophageal Dysmotility/gastroparesis
History GJ tube
�- Continue diet as tolerated.
�- Continue G-tube to gravity for chronic nausea.
�- Meds via J-tube.
-Zofran every 8 hours as needed
-Continue Pepcid
-emend continued
- PEG tube site without any signs of cellulitis. CT of the abdomen pelvis shows no subcutaneous collection around the PEG tube and it is in place.
Acute fractures of the left 6 anterolateral 6th and 7th ribs
-Suspect from recent fall on 10/03
-10/25 complains of pain on the posterolateral lower ribs
-Continue lidocaine patch, add heating packs
Steroid-Induced DM-II--
She remains on steady dose of prednisone
Blood glucose remains marginal
Monitor oral intake
Reduce Lantus and NovoLog AC
Continue serial Accu-Cheks with basal bolus protocol.
S/p fall overnight 10/03-10/04
imaging negative for bleed or fracture
one more dose IV dilaudid now
Steroid-Induced Osteoporosis
Chronic Pain Syndrome secondary to the above on chronic opiates
�- Continue buprenorphine 2 mg 4 times daily , Dilaudid 8 mg as needed
�- PT / OT evaluations.
�- Follow-up with usual windows server specialist after discharge.
allergy induced asthma
chronic hypoxic respiratory failure--on O2
-albuterol continued
-budesonide continued
-cetirizine continued
-cromolyn continued
Thrush
Started clotrimazole Troches for thrush 11/08
Migraine Hx
ODT Nurtec as needed
Restless leg syndrome
-Continue baclofen
History of DVT/PE
#Takes subcu Lovenox 100 mg twice daily
DNR on admission
Disposition: Discussion with primary systems software designer Dr. Ethan Villanueva on 10/09. Discussed possibility of attempting weaning Benadryl drip likely could be done as outpatient. With current family social situation, unfortunately there is no options
for disposition other than home on IV infusion. Possibility of a transfer to [facility] discussed as well, although according to Dr. Villanueva hospital administration declined services due to complexity. Also discussed possibility of
transfer to tertiary center ([facility] declined in the past).
10/[address] Villanueva over the phone as well as [facility] transfer center.
Complex patient. Attempt to wean off Benadryl drip over the last 2 weeks with persistent dystonic episodes
While patient is relatively stable with her current condition, given complex clinical picture requiring multi disciplinary approach not limited to medicine, hematology, allergology, as well as neuropsychiatric assessment, patient would be better
served at a tertiary facility. Patient was accepted to [facility] for transfer, but hospital administration denied her transfer due to complexity (discussed with patient who is aware)
Anticipated Discharge: > 48 hours
Subjective/Interval History
-
Date of Service: November 12, 2023
Objective Data
-
Vital Signs:
Vital Signs
Temp Pulse Resp BP Pulse Ox
98.4 F 100 18 118/79 94
11/12/23 11:54 11/12/23 12:00 11/12/23 12:00 11/12/23 12:00 11/12/23 12:00
I&O
11/11/23 11/12/23 11/13/23
06:59 06:59 06:59
Intake Total 3152 / 3152 1760 / 1760 360 / 360
Output Total 3750 / 3750 1300 / 1300
Balance -598 / -598 460 / 460 360 / 360
Physical Exam
-
General: Well Developed and No Apparent Distress
HEENT: Normocephalic, Atraumatic and Moist Mucous Membranes
Respiratory: Clear to Auscultation
Cardiac: Regular Rhythm and S1/S2; Negative Murmur, Rub or Gallop
GI: Soft, Nontender, Nondistended and Normal Bowel Sounds; Negative Organomegaly
Rectal: Deferred by Provider
Musculoskeletal: No Clubbing, No Cyanosis and No Edema
Skin: Negative Rash
Neuro: Nonfocal/Grossly Intact
--- NOTE | 2023-11-12 16:36 | PTCARENOTE ---
Pt presents as assessed. Medicated with PRN Ativan and Benadryl per request to prevent episodes of dystonia. Also requesting PRN Dilaudid from pain due to fall. Care as documented. Able to make needs known, call sanchez within reach.
--- NOTE | 2023-11-12 16:48 | CM ---
continue iv benadryl gtt under slow taper-1mg very 72 hours,monitor for dystonic reaction,cont dilaudid pulmicort sinemet subutex. no solid dc plans for patient yet.
[2023-11-12] MEDS: ZYRTEC 10 MG TUBE ×2 (17:12→21:30)
[2023-11-12 17:22] LABS: Glucose - Point of Care 133 mg/dl (70-99)
[2023-11-12] MEDS: DESENEX/MITRAZOL/ZEASORB TOPICAL (21:29)
[2023-11-12] MEDS: FEOSOL 325 MG PO (21:29)
[2023-11-12] MEDS: NON-FORMULARY ITEM 1 MG PO (21:35)
[2023-11-12 21:58] LABS: Glucose - Point of Care 147 mg/dl (70-99)
[2023-11-13] VITALS: BP 108/71
--- NOTE | 2023-11-13 00:54 | PTCARENOTE ---
Caring for patient overnight. No assessment changes. Pt pleasant. Does c/o R knee pain. All meds given including PRNs. Pt currently asleep. Benadryl drip continuing at 11ml/hr. Will monitor.
[2023-11-13 04:00] VITALS: BP 132/85
[2023-11-13] MEDS: BENADRYL 25 MG IV ×5 (04:05→21:07)
[2023-11-13] MEDS: ATIVAN 2 MG SL ×4 (04:05→21:06)
[2023-11-13] MEDS: SINEMET 25-100 1.5 TABLET TUBE ×2 (06:13→11:08)
[2023-11-13] MEDS: LIORESAL 10 MG TUBE ×3 (06:14→21:23)
[2023-11-13] MEDS: BENADRYL 250 MG IV (06:48)
[2023-11-13 07:55] LABS: Glucose - Point of Care 106 mg/dl (70-99)
[2023-11-13 08:00] VITALS: BP 125/101
[2023-11-13] MEDS: MIRALAX 17 GRAMS PO (08:30)
[2023-11-13] MEDS: LIDOCAINE 4% PATCH 1 PATCH TOPICAL (08:30)
[2023-11-13] MEDS: LOVENOX 100 MG SC ×2 (08:30→21:18)
[2023-11-13] MEDS: PEPCID 40 MG IV ×2 (08:31→21:19)
[2023-11-13] MEDS: ZOFRAN 4 MG IV ×2 (08:31→17:24)
[2023-11-13] MEDS: VITAMIN B1 100 MG TUBE (08:32)
[2023-11-13] MEDS: MYCELEX TROCHE 10 MG PO ×5 (08:32→21:23)
[2023-11-13] MEDS: CLARITIN 10 MG PO (08:32)
[2023-11-13] MEDS: COLACE 100 MG PO ×2 (08:32→21:13)
[2023-11-13] MEDS: SUBUTEX 2 MG SL ×4 (08:32→21:23)
[2023-11-13] MEDS: GASTROCROM 300 MG PO ×4 (08:32→21:21)
[2023-11-13] MEDS: INDERAL 10 MG TUBE ×3 (08:33→21:22)
[2023-11-13] MEDS: HYDREA 500 MG PO ×2 (08:33→21:16)
[2023-11-13] MEDS: DESENEX/MITRAZOL/ZEASORB TOPICAL (08:33)
[2023-11-13] MEDS: NOVOLOG FLEXPEN 3 UNITS SC ×3 (08:34→18:42)
[2023-11-13] MEDS: NOVOLOG FLEXPEN-LOW RESISTANCE SC (08:34)
[2023-11-13] MEDS: DELTASONE 10 MG TUBE ×2 (08:35→21:15)
[2023-11-13] MEDS: PULMICORT 0.5 MG INH ×2 (08:36→19:37)
[2023-11-13] MEDS: NON-FORMULARY ITEM 80 MG PO (08:37)
[2023-11-13] MEDS: NSS (PRESERVATIVE FREE) 6 ML IV ×2 (08:38→21:25)
[2023-11-13] MEDS: NON-FORMULARY ITEM 1 UNIT PO ×2 (08:41→21:18)
[2023-11-13] MEDS: ZADITOR 1 DROP BOTH EYES ×2 (08:42→21:20)
[2023-11-13] MEDS: NON-FORMULARY ITEM 1 MG PO ×2 (08:46→21:17)
[2023-11-13] MEDS: NON-FORMULARY ITEM NASAL (08:47)
[2023-11-13] MEDS: NSS 1000 IV (09:06)
[2023-11-13] MEDS: LANTUS 0.1 UNITS SC (09:06)
--- NOTE | 2023-11-13 11:34 | VATNOTE ---
11/12 patient has a TLC PICC in the left arm. purple lumen has no blood return. requested an order for cathflo from . WILY aware.
[2023-11-13 11:51] LABS: Glucose - Point of Care 177 mg/dl (70-99)
[2023-11-13 12:00] VITALS: BP 122/84
[2023-11-13] MEDS: NOVOLOG FLEXPEN-LOW RESISTANCE 1 UNITS SC ×2 (12:15→18:42)
[2023-11-13] MEDS: CATHFLO/ACTIVASE 2 MG IV (13:56)
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
--- NOTE | 2023-11-13 14:04 | W.PN.HOSP.TC ---
Today's Communication/Plan
-
Slow Benadryl.
Supportive care.
Psychiatry evaluation.
Assessment / Plan
Assessment / Plan
Impression:
Gram-negative bacteremia due to chronic infected PICC line.
Fever on admission with no evidence of sepsis (tachycardia likely fever mediated)
Conditions prior to admission:
1. Mast cell activation syndrome.
2. Chronic dystonic reaction.
3. Orthostatic hypotension with postural orthostatic and
tachycardia syndrome.
4. Dopa sensitive dystonia.
5. Steroid-induced diabetes.
6. Prior history of deep venous thrombosis and pulmonary embolism.
7. Chronic pain syndrome.
8. Migraine headaches.
9. Gastroesophageal reflux disease.
10. Benzodiazepine and opiate dependence.
11. Restless legs syndrome.
12. Insomnia.
13. History of vocal cord dysfunction.
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
15. Gastroparesis.
16. 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
17. 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
Plan:
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
PICC line removed and PICC line replaced on 09/23
Repeated blood cultures negative on 09/20 but no other cultures obtained
Finished cipro on 10/06/23 (was on 750mg BID)
GJ tube in place
Replaced by interventional radiology on 09/22
Replaced by interventional radiology 11/04 due to concern leakage
HX Recurrent Anaphylaxis / Mast Cell Flare Episodes on chronic steroids
Mast Cell Activation Syndrome
DOPA-Responsive Dystonia
-follows with Dr. Lizabeth Villanueva at [facility] hematology.
- Continue Ativan
�-cont Gleevac ,steroids
�--Levalbuterol as needed, to do her eyedrops
-Continue carbidopa levodopa
-prednisone continued
-Outpatient IV Benadryl drip at 15 milligram an hour upon presentation. As discussed with primary director decision support Dr. Mora plan is to slowly taper. Decrease Benadryl drip to 11 mg an hour on 11/09.
dystonia/movement disorder-patient apparently has dystonic features with her mast cell activation syndrome. I could not find in literature as a routine clinical presentation but according to patient apparently this is very unusual feature which was
noted in few other patients . She is on IV Benadryl pump at 15 mg/h at home. Yesterday she had 2 episodes of them requiring as needed Ativan. In view of increased need of breakthrough medication consulted neurology.
-baclofen continued
-sinemet continued
-episodes with vasovagal response when trying to have a BM - start standing miralax and colace BID
Chronic pain syndrome-on high doses of narcotics (chronic opioid use with dependence) including p.o. Dilaudid and Suboxone at home. Again unclear the source of her pain.
GERD
-famotidine continued
-acipHex continued
-simethicone continued
iron def anemia
-ferrous sulfate continued
hxt of tachycardia
-EKG with sinus tachycardia
-propranolol continued
Chronic Nausea / Esophageal Dysmotility/gastroparesis
History GJ tube
�- Continue diet as tolerated.
�- Continue G-tube to gravity for chronic nausea.
�- Meds via J-tube.
-Zofran every 8 hours as needed
-Continue Pepcid
-emend continued
- PEG tube site without any signs of cellulitis. CT of the abdomen pelvis shows no subcutaneous collection around the PEG tube and it is in place.
Acute fractures of the left 6 anterolateral 6th and 7th ribs
-Suspect from recent fall on 10/03
-10/25 complains of pain on the posterolateral lower ribs
-Continue lidocaine patch, add heating packs
Steroid-Induced DM-II--
She remains on steady dose of prednisone
Blood glucose remains marginal
Monitor oral intake
Reduce Lantus and NovoLog AC
Continue serial Accu-Cheks with basal bolus protocol.
S/p fall overnight 10/03-10/04
imaging negative for bleed or fracture
one more dose IV dilaudid now
Steroid-Induced Osteoporosis
Chronic Pain Syndrome secondary to the above on chronic opiates
�- Continue buprenorphine 2 mg 4 times daily , Dilaudid 8 mg as needed
�- PT / OT evaluations.
�- Follow-up with usual clinical quality assurance specialist after discharge.
allergy induced asthma
chronic hypoxic respiratory failure--on O2
-albuterol continued
-budesonide continued
-cetirizine continued
-cromolyn continued
Thrush
Started clotrimazole Troches for thrush 11/08
Migraine Hx
ODT Nurtec as needed
Restless leg syndrome
-Continue baclofen
History of DVT/PE
#Takes subcu Lovenox 100 mg twice daily
DNR on admission
Disposition: Discussion with primary director decision support Dr. Ethan Villanueva on 10/09. Discussed possibility of attempting weaning Benadryl drip likely could be done as outpatient. With current family social situation, unfortunately there is no options
for disposition other than home on IV infusion. Possibility of a transfer to [facility] discussed as well, although according to Dr. Villanueva hospital administration declined services due to complexity. Also discussed possibility of
transfer to tertiary center ([facility] declined in the past).
10/[address] Villanueva over the phone as well as [facility] transfer center.
Complex patient. Attempt to wean off Benadryl drip over the last 2 weeks with persistent dystonic episodes
While patient is relatively stable with her current condition, given complex clinical picture requiring multi disciplinary approach not limited to medicine, hematology, allergology, as well as neuropsychiatric assessment, patient would be better
served at a tertiary facility. Patient was accepted to [facility] for transfer, but hospital administration denied her transfer due to complexity (discussed with patient who is aware)
Anticipated Discharge: > 48 hours
Subjective/Interval History
-
Date of Service: November 13, 2023
Objective Data
-
Vital Signs:
Vital Signs
Temp Pulse Resp BP Pulse Ox
98.7 F 100 28 125/101 91
11/13/23 11:21 11/13/23 10:00 11/13/23 10:00 11/13/23 08:33 11/13/23 10:00
I&O
11/12/23 11/13/23 11/14/23
06:59 06:59 06:59
Intake Total 1760 / 1760 360 / 360 360 / 360
Output Total 1300 / 1300 600 / 600
Balance 460 / 460 360 / 360 -240 / -240
Physical Exam
-
General: Well Developed and No Apparent Distress
HEENT: Normocephalic, Atraumatic and Moist Mucous Membranes
Respiratory: Clear to Auscultation
Cardiac: Regular Rhythm and S1/S2; Negative Murmur, Rub or Gallop
GI: Soft, Nontender, Nondistended and Normal Bowel Sounds; Negative Organomegaly
Rectal: Deferred by Provider
Musculoskeletal: No Clubbing, No Cyanosis and No Edema
Skin: Negative Rash
Neuro: Nonfocal/Grossly Intact
[2023-11-13] MEDS: NON-FORMULARY ITEM 200 MG PO (14:12)
[2023-11-13] MEDS: SINEMET 25-100 2 TABLET TUBE ×2 (14:13→17:23)
[2023-11-13 16:00] VITALS: BP 116/85
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
[2023-11-13] MEDS: ZYRTEC 10 MG TUBE ×2 (16:57→21:24)
[2023-11-13] MEDS: DILAUDID 8 MG PO (17:01)
[2023-11-13 17:59] LABS: Glucose - Point of Care 167 mg/dl (70-99)
--- NOTE | 2023-11-13 19:45 | PTCARENOTE ---
Patient with 1 episode of dystonia today. PRN benadryl and ativan given. Was short episode, resolved within 15 minutes. Patient weaned to 1L NC, sats >95%. C/o L rib and generalized bone pain after washing up and sheet change, PRN dilaudid given
once this shift. GJ tube dressing changed, CDI. 1 BM today by bedpan. NSR/NST on monitor. VSS.
[2023-11-13 20:00] VITALS: BP 117/78
[2023-11-13] MEDS: DESENEX/MITRAZOL/ZEASORB 1 APPLIC TOPICAL (21:15)
[2023-11-13] MEDS: FEOSOL 325 MG PO (21:25)
[2023-11-13 23:04] LABS: Glucose - Point of Care 149 mg/dl (70-99)
[2023-11-14] VITALS (8 sets, daily range): BP systolic 105–124; BP diastolic 63–94; PULSE 108; O2SAT 96
[2023-11-14] MEDS: ATIVAN 2 MG SL ×5 (03:28→23:24)
[2023-11-14] MEDS: BENADRYL 25 MG IV ×5 (03:29→23:24)
--- NOTE | 2023-11-14 04:05 | PTCARENOTE ---
Pt with an episode of dystonia after changing PW and turning in bed. PRN benadryl and ativan given. Episode resolved in about 20 minutes. Pt asked O2 to be increased to 2L NC. 94% on 2L. SR/ST on monitor. vss.
[2023-11-14] MEDS: SINEMET 25-100 1.5 TABLET TUBE ×2 (06:15→09:31)
[2023-11-14] MEDS: GASTROCROM 300 MG PO ×4 (06:15→20:44)
[2023-11-14] MEDS: LIORESAL 10 MG TUBE ×3 (06:16→20:47)
[2023-11-14] MEDS: BENADRYL 250 MG IV ×2 (06:20→11:08)
[2023-11-14] MEDS: PULMICORT 0.5 MG INH ×2 (08:02→20:12)
[2023-11-14 08:17] LABS: Glucose - Point of Care 104 mg/dl (70-99)
[2023-11-14] MEDS: NOVOLOG FLEXPEN 3 UNITS SC ×3 (09:17→17:48)
[2023-11-14] MEDS: NOVOLOG FLEXPEN-LOW RESISTANCE SC ×3 (09:17→17:48)
[2023-11-14] MEDS: LANTUS 0.1 UNITS SC (09:18)
[2023-11-14] MEDS: NSS 1000 IV (09:19)
[2023-11-14] MEDS: PEPCID 40 MG IV ×2 (09:26→20:33)
[2023-11-14] MEDS: NSS (PRESERVATIVE FREE) 6 ML IV ×2 (09:26→20:32)
[2023-11-14] MEDS: MIRALAX 17 GRAMS PO (09:29)
[2023-11-14] MEDS: COLACE 100 MG PO ×2 (09:29→20:31)
[2023-11-14] MEDS: MYCELEX TROCHE 10 MG PO ×5 (09:30→20:47)
[2023-11-14] MEDS: LOVENOX 100 MG SC ×2 (09:32→20:32)
[2023-11-14] MEDS: LIDOCAINE 4% PATCH 1 PATCH TOPICAL (09:33)
[2023-11-14] MEDS: DELTASONE 10 MG TUBE ×2 (09:34→20:31)
[2023-11-14] MEDS: CLARITIN 10 MG PO (09:35)
[2023-11-14] MEDS: HYDREA 500 MG PO ×2 (09:35→20:31)
[2023-11-14] MEDS: SUBUTEX 2 MG SL ×4 (09:35→20:45)
[2023-11-14] MEDS: NON-FORMULARY ITEM NASAL (09:36)
[2023-11-14] MEDS: VITAMIN B1 100 MG TUBE (09:36)
[2023-11-14] MEDS: ZADITOR 1 DROP BOTH EYES ×2 (09:36→20:31)
[2023-11-14] MEDS: NON-FORMULARY ITEM 80 MG PO (09:37)
[2023-11-14] MEDS: NON-FORMULARY ITEM 1 UNIT PO ×2 (09:38→20:32)
[2023-11-14] MEDS: NON-FORMULARY ITEM 1 MG PO ×2 (09:39→20:31)
[2023-11-14] MEDS: DESENEX/MITRAZOL/ZEASORB TOPICAL (09:40)
[2023-11-14] MEDS: INDERAL 10 MG TUBE ×3 (09:48→20:48)
[2023-11-14 12:34] LABS: Glucose - Point of Care 111 mg/dl (70-99)
--- NOTE | 2023-11-14 14:44 | W.PN.HOSP.TC ---
Today's Communication/Plan
-
Continue slow Benadryl drip taper. Dose decreased today to 30 mg an hour.
Discussed with psychiatry.
Assessment / Plan
Assessment / Plan
Impression:
Gram-negative bacteremia due to chronic infected PICC line.
Fever on admission with no evidence of sepsis (tachycardia likely fever mediated)
Conditions prior to admission:
1. Mast cell activation syndrome.
2. Chronic dystonic reaction.
3. Orthostatic hypotension with postural orthostatic and
tachycardia syndrome.
4. Dopa sensitive dystonia.
5. Steroid-induced diabetes.
6. Prior history of deep venous thrombosis and pulmonary embolism.
7. Chronic pain syndrome.
8. Migraine headaches.
9. Gastroesophageal reflux disease.
10. Benzodiazepine and opiate dependence.
11. Restless legs syndrome.
12. Insomnia.
13. History of vocal cord dysfunction.
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
15. Gastroparesis.
16. 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
17. 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
Plan:
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
PICC line removed and PICC line replaced on 09/23
Repeated blood cultures negative on 09/20 but no other cultures obtained
Finished cipro on 10/06/23 (was on 750mg BID)
GJ tube in place
Replaced by interventional radiology on 09/22
Replaced by interventional radiology 11/04 due to concern leakage
HX Recurrent Anaphylaxis / Mast Cell Flare Episodes on chronic steroids
Mast Cell Activation Syndrome
DOPA-Responsive Dystonia
-follows with Dr. Lizabeth Villanueva at [facility] hematology.
- Continue Ativan
�-cont Gleevac ,steroids
�--Levalbuterol as needed, to do her eyedrops
-Continue carbidopa levodopa
-prednisone continued
-Outpatient IV Benadryl drip at 15 milligram an hour upon presentation. As discussed with primary bakery chef Dr. Mora plan is to slowly taper. Decrease Benadryl drip to 11 mg an hour on 11/09.
dystonia/movement disorder-patient apparently has dystonic features with her mast cell activation syndrome. I could not find in literature as a routine clinical presentation but according to patient apparently this is very unusual feature which was
noted in few other patients . She is on IV Benadryl pump at 15 mg/h at home.
-baclofen continued
-sinemet continued
-episodes with vasovagal response when trying to have a BM - start standing miralax and colace BID
Chronic pain syndrome-on high doses of narcotics (chronic opioid use with dependence) including p.o. Dilaudid and Suboxone at home. Again unclear the source of her pain.
GERD
-famotidine continued
-acipHex continued
-simethicone continued
iron def anemia
-ferrous sulfate continued
hxt of tachycardia
-EKG with sinus tachycardia
-propranolol continued
Chronic Nausea / Esophageal Dysmotility/gastroparesis
History GJ tube
�- Continue diet as tolerated.
�- Continue G-tube to gravity for chronic nausea.
�- Meds via J-tube.
-Zofran every 8 hours as needed
-Continue Pepcid
-emend continued
- PEG tube site without any signs of cellulitis. CT of the abdomen pelvis shows no subcutaneous collection around the PEG tube and it is in place.
Acute fractures of the left 6 anterolateral 6th and 7th ribs
-Suspect from recent fall on 10/03
-10/25 complains of pain on the posterolateral lower ribs
-Continue lidocaine patch, add heating packs
Steroid-Induced DM-II--
She remains on steady dose of prednisone
Blood glucose remains marginal
Monitor oral intake
Reduce Lantus and NovoLog AC
Continue serial Accu-Cheks with basal bolus protocol.
S/p fall overnight 10/03-10/04
imaging negative for bleed or fracture
one more dose IV dilaudid now
Steroid-Induced Osteoporosis
Chronic Pain Syndrome secondary to the above on chronic opiates
�- Continue buprenorphine 2 mg 4 times daily , Dilaudid 8 mg as needed
�- PT / OT evaluations.
�- Follow-up with usual academic guidance specialist after discharge.
allergy induced asthma
chronic hypoxic respiratory failure--on O2
-albuterol continued
-budesonide continued
-cetirizine continued
-cromolyn continued
Thrush
Started clotrimazole Troches for thrush 11/08
Migraine Hx
ODT Nurtec as needed
Restless leg syndrome
-Continue baclofen
History of DVT/PE
#Takes subcu Lovenox 100 mg twice daily
DNR on admission
Disposition: Discussion with primary bakery chef Dr. Ethan Villanueva on 10/09. Discussed possibility of attempting weaning Benadryl drip likely could be done as outpatient. With current family social situation, unfortunately there is no options
for disposition other than home on IV infusion. Possibility of a transfer to [facility] discussed as well, although according to Dr. Villanueva hospital administration declined services due to complexity. Also discussed possibility of
transfer to tertiary center ([facility] declined in the past).
10/[address] Villanueva over the phone as well as [facility] transfer center.
Complex patient. Attempt to wean off Benadryl drip over the last 2 weeks with persistent dystonic episodes
While patient is relatively stable with her current condition, given complex clinical picture requiring multi disciplinary approach not limited to medicine, hematology, allergology, as well as neuropsychiatric assessment, patient would be better
served at a tertiary facility. Patient was accepted to [facility] for transfer, but hospital administration denied her transfer due to complexity (discussed with patient who is aware)
Anticipated Discharge: > 48 hours
Subjective/Interval History
-
Date of Service: November 14, 2023
Objective Data
-
Vital Signs:
Vital Signs
Temp Pulse Resp BP Pulse Ox
98.3 F 97 19 122/94 99
11/14/23 11:55 11/14/23 12:00 11/14/23 12:00 11/14/23 12:00 11/14/23 12:00
I&O
11/13/23 11/14/23 11/15/23
06:59 06:59 06:59
Intake Total 360 / 360 360 / 360
Output Total 3025 / 3025 900 / 900
Balance 360 / 360 -2665 / -2665 -900 / -900
Physical Exam
-
General: Well Developed and No Apparent Distress
HEENT: Normocephalic, Atraumatic and Moist Mucous Membranes
Respiratory: Clear to Auscultation
Cardiac: Regular Rhythm and S1/S2; Negative Murmur, Rub or Gallop
GI: Soft, Nontender, Nondistended and Normal Bowel Sounds; Negative Organomegaly
Rectal: Deferred by Provider
Musculoskeletal: No Clubbing, No Cyanosis and No Edema
Skin: Negative Rash
Neuro: Awake, Alert, Oriented, AO x 3 and Nonfocal/Grossly Intact
[2023-11-14] MEDS: SINEMET 25-100 2 TABLET TUBE ×2 (14:49→17:42)
[2023-11-14] MEDS: NON-FORMULARY ITEM 100 MG PO (14:50)
[2023-11-14] MEDS: ZOFRAN 4 MG IV (15:35)
--- NOTE | 2023-11-14 15:36 | CM ---
Call placed to Debby ([phone]), patients [employer] from [facility], left requesting a return call.
--- NOTE | 2023-11-14 15:50 | W.PN.UPDATE ---
Update Note
Progress Note Update
patient seen chart reviewed. discussed w nursing. ms lema had just finished w PT and reported that it was very tiring for her. she was however feeling positive that she had managed and was now sitting up in a chair. she was also feeling + about
a visit from her stepfather in which they discussed her getting an appartment of her own some day and working out a schedule for help to come in to assist her in getting through the day. gradually we spoke of the importance of her getting off the
benadryl drip which has been substantially reduced. she is in agreement with the idea of getting to po benadryl although she does not see this necessarily as the biggest impediment to her success in terms of getting out of dh and feels that there
has been too much emphasis on this from staff here. she said she was very tired at this point and in pain so our interaction ended after about twenty minutes. psych will continue to try to engage.
[2023-11-14] MEDS: ZYRTEC 10 MG TUBE ×2 (17:43→20:48)
[2023-11-14 17:47] LABS: Glucose - Point of Care 141 mg/dl (70-99)
[2023-11-14 22:47] LABS: Glucose - Point of Care 185 mg/dl (70-99)
[2023-11-14] MEDS: DESENEX/MITRAZOL/ZEASORB 1 APPLIC TOPICAL (23:33)
[2023-11-15] VITALS: BP 118/79
[2023-11-15] MEDS: SINEMET 25-100 1.5 TABLET TUBE ×2 (04:58→09:36)
[2023-11-15] MEDS: LIORESAL 10 MG TUBE ×3 (04:58→21:53)
[2023-11-15] MEDS: ATIVAN 2 MG SL ×4 (05:10→20:24)
[2023-11-15] MEDS: BENADRYL 250 MG IV (05:10)
[2023-11-15] MEDS: BENADRYL 25 MG IV ×5 (05:11→20:25)
[2023-11-15] MEDS: PULMICORT 0.5 MG INH ×2 (07:29→21:11)
[2023-11-15 07:57] LABS: Glucose - Point of Care 122 mg/dl (70-99)
[2023-11-15 08:00] VITALS: BP 110/63
[2023-11-15] MEDS: NOVOLOG FLEXPEN-LOW RESISTANCE SC ×2 (08:22→17:44)
--- NOTE | 2023-11-15 08:46 | W.PN.HOSP.TC ---
Today's Communication/Plan
-
cont current management
Assessment / Plan
Assessment / Plan
Impression:
Gram-negative bacteremia due to chronic infected PICC line.
Fever on admission with no evidence of sepsis (tachycardia likely fever mediated)
Conditions prior to admission:
1. Mast cell activation syndrome.
2. Chronic dystonic reaction.
3. Orthostatic hypotension with postural orthostatic and
tachycardia syndrome.
4. Dopa sensitive dystonia.
5. Steroid-induced diabetes.
6. Prior history of deep venous thrombosis and pulmonary embolism.
7. Chronic pain syndrome.
8. Migraine headaches.
9. Gastroesophageal reflux disease.
10. Benzodiazepine and opiate dependence.
11. Restless legs syndrome.
12. Insomnia.
13. History of vocal cord dysfunction.
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
15. Gastroparesis.
16. 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
17. 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
Plan:
11/15/23--nothing new to add--remains on Benadryl drip 10mg/hour (concentration 1 mg/ml = 10ml/hr)--d/c planning
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
PICC line removed and PICC line replaced on 09/23
Repeated blood cultures negative on 09/20 but no other cultures obtained
Finished cipro on 10/06/23 (was on 750mg BID)
GJ tube in place
Replaced by interventional radiology on 09/22
Replaced by interventional radiology 11/04 due to concern leakage
HX Recurrent Anaphylaxis / Mast Cell Flare Episodes on chronic steroids
Mast Cell Activation Syndrome
DOPA-Responsive Dystonia
-follows with Dr. Lizabeth Villanueva at [facility] hematology.
- Continue Ativan
�-cont Gleevac ,steroids
�--Levalbuterol as needed, to do her eyedrops
-Continue carbidopa levodopa
-prednisone continued
-Outpatient IV Benadryl drip at 15 milligram an hour upon presentation. As discussed with primary instructional technology coordinator Dr. Mora plan is to slowly taper. Decrease Benadryl drip to 11 mg an hour on 11/09.
dystonia/movement disorder-patient apparently has dystonic features with her mast cell activation syndrome. I could not find in literature as a routine clinical presentation but according to patient apparently this is very unusual feature which was
noted in few other patients . She was on IV Benadryl pump at 15 mg/h at home.
-baclofen continued
-sinemet continued
-episodes with vasovagal response when trying to have a BM - start standing miralax and colace BID
Chronic pain syndrome-on high doses of narcotics (chronic opioid use with dependence) including p.o. Dilaudid and Suboxone at home. Again unclear the source of her pain.
GERD
-famotidine continued
-acipHex continued
-simethicone continued
iron def anemia
-ferrous sulfate continued
hxt of tachycardia
-EKG with sinus tachycardia
-propranolol continued
Chronic Nausea / Esophageal Dysmotility/gastroparesis
History GJ tube
�- Continue diet as tolerated.
�- Continue G-tube to gravity for chronic nausea.
�- Meds via J-tube.
-Zofran every 8 hours as needed
-Continue Pepcid
-emend continued
- PEG tube site without any signs of cellulitis. CT of the abdomen pelvis shows no subcutaneous collection around the PEG tube and it is in place.
Acute fractures of the left 6 anterolateral 6th and 7th ribs
-Suspect from recent fall on 10/03
-10/25 complains of pain on the posterolateral lower ribs
-Continue lidocaine patch, add heating packs
Steroid-Induced DM-II--
She remains on steady dose of prednisone
Blood glucose remains marginal
Monitor oral intake
Reduce Lantus and NovoLog AC
Continue serial Accu-Cheks with basal bolus protocol.
S/p fall overnight 10/03-10/04
imaging negative for bleed or fracture
one more dose IV dilaudid now
Steroid-Induced Osteoporosis
Chronic Pain Syndrome secondary to the above on chronic opiates
�- Continue buprenorphine 2 mg 4 times daily , Dilaudid 8 mg as needed
�- PT / OT evaluations.
�- Follow-up with usual electronic specialist after discharge.
allergy induced asthma
chronic hypoxic respiratory failure--on O2
-albuterol continued
-budesonide continued
-cetirizine continued
-cromolyn continued
Thrush
Started clotrimazole Troches for thrush 11/08
Migraine Hx
ODT Nurtec as needed
Restless leg syndrome
-Continue baclofen
History of DVT/PE
#Takes subcu Lovenox 100 mg twice daily
DNR on admission
Disposition: Discussion with primary instructional technology coordinator Dr. Ethan Villanueva on 10/09. Discussed possibility of attempting weaning Benadryl drip likely could be done as outpatient. With current family social situation, unfortunately there is no options
for disposition other than home on IV infusion. Possibility of a transfer to [facility] discussed as well, although according to Dr. Villanueva hospital administration declined services due to complexity. Also discussed possibility of
transfer to tertiary center ([facility] declined in the past).
10/[address] Villanueva over the phone as well as [facility] transfer center.
Complex patient. Attempt to wean off Benadryl drip over the last 2 weeks with persistent dystonic episodes
While patient is relatively stable with her current condition, given complex clinical picture requiring multi disciplinary approach not limited to medicine, hematology, allergology, as well as neuropsychiatric assessment, patient would be better
served at a tertiary facility. Patient was accepted to [facility] for transfer, but hospital administration denied her transfer due to complexity (discussed with patient who is aware)
Anticipated Discharge: > 48 hours
Subjective/Interval History
-
Date of Service: November 15, 2023
pt without c/o
Objective Data
-
Vital Signs:
max temp for 24 hours
11/15/23
05:01
Temp 98.5 F
Vital Signs
Temp Pulse Resp BP Pulse Ox
97.5 F 97 17 118/79 93
11/15/23 07:48 11/15/23 07:30 11/15/23 07:30 11/15/23 00:00 11/15/23 07:30
I&O
11/14/23 11/15/23 11/16/23
06:59 06:59 06:59
Intake Total 360 / 360 480 / 480
Output Total 3025 / 3025 1500 / 1500 400 / 400
Balance -2665 / -2665 -1500 / -1500 80 / 80
Review of Systems
-
All other systems: Reviewed and negative
Physical Exam
-
General: Well Developed, Well Nourished and No Apparent Distress
HEENT: Normocephalic, Atraumatic and Other (round siegel facies)
Respiratory: Clear to Auscultation; Negative Wheezes or Rhonchi
Cardiac: Regular Rhythm and S1/S2; Negative Murmur
GI: Soft, Nontender, Nondistended and Normal Bowel Sounds
Musculoskeletal: No Clubbing, No Cyanosis and No Edema
Skin: Warm
Neuro: Awake and Alert
Psych: Calm
[2023-11-15] MEDS: NSS 1000 IV (09:05)
[2023-11-15] MEDS: LANTUS 0.1 UNITS SC (09:09)
[2023-11-15] MEDS: NOVOLOG FLEXPEN 3 UNITS SC ×3 (09:10→17:43)
[2023-11-15] MEDS: LOVENOX 100 MG SC ×2 (09:12→20:32)
[2023-11-15] MEDS: MIRALAX 17 GRAMS PO (09:13)
[2023-11-15] MEDS: LIDOCAINE 4% PATCH 1 PATCH TOPICAL (09:13)
[2023-11-15] MEDS: GASTROCROM 300 MG PO ×4 (09:14→21:51)
[2023-11-15] MEDS: NSS (PRESERVATIVE FREE) 6 ML IV ×2 (09:16→20:29)
[2023-11-15] MEDS: PEPCID 40 MG IV ×2 (09:17→20:29)
[2023-11-15] MEDS: ZOFRAN 4 MG IV ×2 (09:23→15:41)
[2023-11-15] MEDS: NON-FORMULARY ITEM 1 UNIT PO ×2 (09:32→20:35)
[2023-11-15] MEDS: NON-FORMULARY ITEM 1 MG PO ×2 (09:33→20:35)
[2023-11-15] MEDS: SUBUTEX 2 MG SL ×4 (09:34→21:53)
[2023-11-15] MEDS: HYDREA 500 MG PO ×2 (09:34→20:32)
[2023-11-15] MEDS: COLACE 100 MG PO ×2 (09:35→20:31)
[2023-11-15] MEDS: DELTASONE 10 MG TUBE ×2 (09:36→20:31)
[2023-11-15] MEDS: CLARITIN 10 MG PO (09:36)
[2023-11-15] MEDS: INDERAL 10 MG TUBE ×3 (09:36→21:54)
[2023-11-15] MEDS: VITAMIN B1 100 MG TUBE (09:37)
[2023-11-15] MEDS: NON-FORMULARY ITEM NASAL (09:40)
[2023-11-15] MEDS: DESENEX/MITRAZOL/ZEASORB 1 APPLIC TOPICAL ×2 (09:40→20:33)
[2023-11-15] MEDS: MYCELEX TROCHE 10 MG PO ×5 (09:40→21:53)
[2023-11-15] MEDS: NON-FORMULARY ITEM PO (09:41)
[2023-11-15] MEDS: ZADITOR 1 DROP BOTH EYES ×2 (09:47→20:34)
[2023-11-15] MEDS: DILAUDID 8 MG PO (11:34)
[2023-11-15 12:00] VITALS: BP 109/75
[2023-11-15 12:35] LABS: Glucose - Point of Care 166 mg/dl (70-99)
[2023-11-15] MEDS: NOVOLOG FLEXPEN-LOW RESISTANCE 1 UNITS SC (12:48)
[2023-11-15] MEDS: NON-FORMULARY ITEM 200 MG PO (14:28)
[2023-11-15] MEDS: SINEMET 25-100 2 TABLET TUBE ×2 (14:30→17:21)
--- NOTE | 2023-11-15 14:40 | PTCARENOTE ---
Pt had small amount of emesis (approx 200 mls) after lunch tray. Pt remains drowsy but arousable pleasant and cooperative so far this shift. Declines to get oob. Provided Kpad and Ice for aches and pains. Plan of care unchanged. Discussed with
Catracho this am. Safe environment maintained.
--- NOTE | 2023-11-15 15:41 | CHAP ---
Mary was in good spirits. She said she's feeling better, and she is optimistic about finding an apartment situation that would work, with help from home care. Emotional and spiritual support provided.
[2023-11-15 16:00] VITALS: BP 125/80
--- NOTE | 2023-11-15 16:51 | PTCARENOTE ---
Pt continues with mild dystonic reactions intermittently this shift, she has been asking for her PRN Ativan and Benadryl regularly, as well as PRN pain meds and antiemetics, see MAR for times of administration. Assisted oob to chair at approx 4 pm.
Pt placed back and neck brace on for stand to pivot to chair, steady independent gait on feet with just standby assistance. Up in chair, pt states she feels 'weird,' this RN elevated her feet and lowered head,offered pillows for positioning, pt
stated she is comfortable. Now working on laptop -ordered dinner for 18:00. Will cont to monitor.
[2023-11-15] MEDS: ZYRTEC 10 MG TUBE ×2 (17:21→21:53)
[2023-11-15 17:51] LABS: Glucose - Point of Care 121 mg/dl (70-99)
[2023-11-15 21:35] LABS: Glucose - Point of Care 123 mg/dl (70-99)
[2023-11-15 21:53] VITALS: BP 112/80
[2023-11-15] MEDS: FEOSOL 325 MG PO (21:53)
[2023-11-16] VITALS (7 sets, daily range): BP systolic 106–121; BP diastolic 67–87
--- NOTE | 2023-11-16 04:23 | PTCARENOTE ---
Pt had one episode around 2029 that was settled with prn medication. Pt appear to sleep well through out the nigh, respiration even and unlabored. Assessment care and vitals as charted.
[2023-11-16] MEDS: LIORESAL 10 MG TUBE ×3 (06:02→21:39)
[2023-11-16] MEDS: SINEMET 25-100 1.5 TABLET TUBE ×2 (06:02→09:16)
[2023-11-16] MEDS: ATIVAN 2 MG SL ×4 (06:02→21:55)
[2023-11-16] MEDS: BENADRYL 25 MG IV ×5 (06:03→21:28)
[2023-11-16] MEDS: BENADRYL 250 MG IV (06:17)
[2023-11-16] MEDS: PULMICORT 0.5 MG INH ×2 (07:21→20:48)
[2023-11-16] MEDS: NOVOLOG FLEXPEN-LOW RESISTANCE SC ×3 (08:13→16:59)
[2023-11-16] MEDS: NOVOLOG FLEXPEN 3 UNITS SC ×3 (08:19→17:01)
[2023-11-16] MEDS: GASTROCROM 300 MG PO ×4 (08:19→21:37)
[2023-11-16] MEDS: LANTUS 0.1 UNITS SC (08:19)
[2023-11-16 08:22] LABS: Glucose - Point of Care 108 mg/dl (70-99)
--- NOTE | 2023-11-16 09:06 | W.PN.HOSP.TC ---
Today's Communication/Plan
-
cont current treatments
Assessment / Plan
Assessment / Plan
Impression:
Gram-negative bacteremia due to chronic infected PICC line.
Fever on admission with no evidence of sepsis (tachycardia likely fever mediated)
Conditions prior to admission:
1. Mast cell activation syndrome.
2. Chronic dystonic reaction.
3. Orthostatic hypotension with postural orthostatic and
tachycardia syndrome.
4. Dopa sensitive dystonia.
5. Steroid-induced diabetes.
6. Prior history of deep venous thrombosis and pulmonary embolism.
7. Chronic pain syndrome.
8. Migraine headaches.
9. Gastroesophageal reflux disease.
10. Benzodiazepine and opiate dependence.
11. Restless legs syndrome.
12. Insomnia.
13. History of vocal cord dysfunction.
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
15. Gastroparesis.
16. 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
17. 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
Plan:
11/16/23 --cont benadryl drip--will not taper over the weekend--pt reports her step father trying to get her an apartment: she is hoping she will not be in the hospital too much longer
11/15/23--nothing new to add--remains on Benadryl drip 10mg/hour (concentration 1 mg/ml = 10ml/hr)--d/c planning
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
PICC line removed and PICC line replaced on 09/23
Repeated blood cultures negative on 09/20 but no other cultures obtained
Finished cipro on 10/06/23 (was on 750mg BID)
GJ tube in place
Replaced by interventional radiology on 09/22
Replaced by interventional radiology 11/04 due to concern leakage
HX Recurrent Anaphylaxis / Mast Cell Flare Episodes on chronic steroids
Mast Cell Activation Syndrome
DOPA-Responsive Dystonia
-follows with Dr. Lizabeth Villanueva at [facility] hematology.
- Continue Ativan
�-cont Gleevac ,steroids
�--Levalbuterol as needed, to do her eyedrops
-Continue carbidopa levodopa
-prednisone continued
-Outpatient IV Benadryl drip at 15 milligram an hour upon presentation. As discussed with primary costume designer Dr. Mora plan is to slowly taper. Decrease Benadryl drip to 11 mg an hour on 11/09.
dystonia/movement disorder-patient apparently has dystonic features with her mast cell activation syndrome. I could not find in literature as a routine clinical presentation but according to patient apparently this is very unusual feature which was
noted in few other patients . She was on IV Benadryl pump at 15 mg/h at home.
-baclofen continued
-sinemet continued
-episodes with vasovagal response when trying to have a BM - start standing miralax and colace BID
Chronic pain syndrome-on high doses of narcotics (chronic opioid use with dependence) including p.o. Dilaudid and Suboxone at home. Again unclear the source of her pain.
GERD
-famotidine continued
-acipHex continued
-simethicone continued
iron def anemia
-ferrous sulfate continued
hxt of tachycardia
-EKG with sinus tachycardia
-propranolol continued
Chronic Nausea / Esophageal Dysmotility/gastroparesis
History GJ tube
�- Continue diet as tolerated.
�- Continue G-tube to gravity for chronic nausea.
�- Meds via J-tube.
-Zofran every 8 hours as needed
-Continue Pepcid
-emend continued
- PEG tube site without any signs of cellulitis. CT of the abdomen pelvis shows no subcutaneous collection around the PEG tube and it is in place.
Acute fractures of the left 6 anterolateral 6th and 7th ribs
-Suspect from recent fall on 10/03
-10/25 complains of pain on the posterolateral lower ribs
-Continue lidocaine patch, add heating packs
Steroid-Induced DM-II--
She remains on steady dose of prednisone
Blood glucose remains marginal
Monitor oral intake
Reduce Lantus and NovoLog AC
Continue serial Accu-Cheks with basal bolus protocol.
S/p fall overnight 10/03-10/04
imaging negative for bleed or fracture
one more dose IV dilaudid now
Steroid-Induced Osteoporosis
Chronic Pain Syndrome secondary to the above on chronic opiates
�- Continue buprenorphine 2 mg 4 times daily , Dilaudid 8 mg as needed
�- PT / OT evaluations.
�- Follow-up with usual commercial loan specialist after discharge.
allergy induced asthma
chronic hypoxic respiratory failure--on O2
-albuterol continued
-budesonide continued
-cetirizine continued
-cromolyn continued
Thrush
Started clotrimazole Troches for thrush 11/08
Migraine Hx
ODT Nurtec as needed
Restless leg syndrome
-Continue baclofen
History of DVT/PE
#Takes subcu Lovenox 100 mg twice daily
DNR on admission
Disposition: Discussion with primary costume designer Dr. Ethan Villanueva on 10/09. Discussed possibility of attempting weaning Benadryl drip likely could be done as outpatient. With current family social situation, unfortunately there is no options
for disposition other than home on IV infusion. Possibility of a transfer to [facility] discussed as well, although according to Dr. Villanueva hospital administration declined services due to complexity. Also discussed possibility of
transfer to tertiary center ([facility] declined in the past).
10/[address] Villanueva over the phone as well as [facility] transfer center.
Complex patient. Attempt to wean off Benadryl drip over the last 2 weeks with persistent dystonic episodes
While patient is relatively stable with her current condition, given complex clinical picture requiring multi disciplinary approach not limited to medicine, hematology, allergology, as well as neuropsychiatric assessment, patient would be better
served at a tertiary facility. Patient was accepted to [facility] for transfer, but hospital administration denied her transfer due to complexity (discussed with patient who is aware)
Anticipated Discharge: > 48 hours
Subjective/Interval History
-
Date of Service: November 16, 2023
no c/o
Objective Data
-
Vital Signs:
max temp for 24 hours
11/15/23
22:53
Temp 98.3 F
Vital Signs
Temp Pulse Resp BP Pulse Ox
98.0 F 96 16 106/67 98
11/16/23 07:36 11/16/23 07:23 11/16/23 07:23 11/16/23 04:00 11/16/23 07:23
I&O
11/15/23 11/16/23 11/17/23
06:59 06:59 06:59
Intake Total 3160 / 3160
Output Total 1500 / 1500 5050 / 5050
Balance -1500 / -1500 -1890 / -1890
Review of Systems
-
All other systems: Reviewed and negative
Physical Exam
-
General: Well Developed, Well Nourished and No Apparent Distress
HEENT: Normocephalic, Atraumatic and Other (round siegel facies)
Respiratory: Clear to Auscultation; Negative Wheezes or Rhonchi
Cardiac: Regular Rhythm and S1/S2; Negative Murmur
GI: Soft, Nontender, Nondistended, Normal Bowel Sounds and Peg Tube
Musculoskeletal: No Clubbing, No Cyanosis and No Edema
[2023-11-16] MEDS: LIDOCAINE 4% PATCH 1 PATCH TOPICAL (09:11)
[2023-11-16] MEDS: MIRALAX 17 GRAMS PO (09:11)
[2023-11-16] MEDS: ZADITOR 1 DROP BOTH EYES ×2 (09:12→20:08)
[2023-11-16] MEDS: MYCELEX TROCHE 10 MG PO ×5 (09:12→21:39)
[2023-11-16] MEDS: NSS 1000 IV (09:12)
[2023-11-16] MEDS: LOVENOX 100 MG SC ×2 (09:12→20:04)
[2023-11-16] MEDS: DELTASONE 10 MG TUBE ×2 (09:14→20:05)
[2023-11-16] MEDS: SUBUTEX 2 MG SL ×4 (09:14→21:39)
[2023-11-16] MEDS: INDERAL 10 MG TUBE ×3 (09:15→21:39)
[2023-11-16] MEDS: HYDREA 500 MG PO ×2 (09:15→20:05)
[2023-11-16] MEDS: DESENEX/MITRAZOL/ZEASORB 1 APPLIC TOPICAL ×2 (09:15→20:05)
[2023-11-16] MEDS: VITAMIN B1 100 MG TUBE (09:15)
[2023-11-16] MEDS: NON-FORMULARY ITEM NASAL (09:16)
[2023-11-16] MEDS: NSS (PRESERVATIVE FREE) 6 ML IV ×2 (09:16→20:05)
[2023-11-16] MEDS: PEPCID 40 MG IV ×2 (09:16→20:04)
[2023-11-16] MEDS: COLACE 100 MG PO ×2 (09:17→20:05)
[2023-11-16] MEDS: CLARITIN 10 MG PO (09:18)
[2023-11-16] MEDS: NON-FORMULARY ITEM PO (09:18)
[2023-11-16] MEDS: NON-FORMULARY ITEM 1 MG PO ×2 (09:18→20:07)
[2023-11-16] MEDS: NON-FORMULARY ITEM 1 UNIT PO ×2 (09:19→20:06)
[2023-11-16] MEDS: ZOFRAN 4 MG IV ×2 (11:18→21:34)
[2023-11-16 12:32] LABS: Glucose - Point of Care 113 mg/dl (70-99)
--- NOTE | 2023-11-16 13:04 | W.PN.UPDATE ---
Update Note
Progress Note Update
Patient is doing reasonably well. Affect is full, mood is WNR. She is optimistic about moving to an independent apartment and is working to get in home services.
Denies depression, hopelessness, helplessness or suicidal thoughts. Appetite is good, denies significant insomnia.
Would F/U intermittently through the department.
[2023-11-16] MEDS: NON-FORMULARY ITEM 100 MG PO (14:32)
[2023-11-16] MEDS: SINEMET 25-100 2 TABLET TUBE ×2 (14:33→17:55)
[2023-11-16 17:07] LABS: Glucose - Point of Care 110 mg/dl (70-99)
[2023-11-16] MEDS: ZYRTEC 10 MG TUBE ×2 (17:55→21:39)
--- NOTE | 2023-11-16 18:17 | PTCARENOTE ---
pt had another spell while her dad was visiting. Assisted back to bed after PRNs given. Pt relaxing, talking to dad now.
[2023-11-16] MEDS: DUONEB 3 ML INH (20:48)
[2023-11-16] MEDS: FEOSOL 325 MG PO (21:39)
[2023-11-16 21:51] LABS: Glucose - Point of Care 131 mg/dl (70-99)
[2023-11-17] VITALS (9 sets, daily range): BP systolic 106–122; BP diastolic 68–88; PULSE 119–121; O2SAT 93
[2023-11-17] MEDS: BENADRYL 25 MG IV ×5 (03:23→21:23)
[2023-11-17] MEDS: ATIVAN 2 MG SL ×5 (03:23→21:24)
--- NOTE | 2023-11-17 03:50 | PTCARENOTE ---
Pt had had two episodes this night. Pt also needing nausea Meds. Assessment care and vitals as needed.
[2023-11-17] MEDS: SINEMET 25-100 1.5 TABLET TUBE ×2 (05:40→09:45)
[2023-11-17] MEDS: LIORESAL 10 MG TUBE ×3 (05:40→21:23)
[2023-11-17 06:18] LABS: Hematocrit 32.6 % (37.0-47.0); Hemoglobin 10.8 g/dL (12.0-16.0); Mean Corp Hgb Conc. 33.1 g/dL (33.0-37.0); Mean Corpuscular Hgb 36.6 pg (27.0-31.0); Mean Corpuscular Volume 110.5 fL (81.0-99.0); Mean Platelet Volume 9.1 fL (7.4-10.4); Platelet Count 271 10^3/uL (130-400); Red Blood Cell Count 2.95 10^6/uL (4.20-5.40); Red Cell Dist. Width 18.2 % (11.5-14.5); White Blood Cell Count 8.1 10^3/uL (4.8-10.8)
[2023-11-17 06:20] LABS: Blood Urea Nitrogen 7 mg/dl (7-17); Calcium 8.8 mg/dl (8.4-10.2); Carbon Dioxide 27 mmol/L (22-30); Chloride 103 mmol/L (98-107); Estimated Creatinine Clearance > 125 ml/min; Glucose 174 mg/dl (70-99); Magnesium 1.9 mg/dl (1.6-2.3); Potassium 4.2 mmol/L (3.5-5.1); Sodium 136 mmol/L (135-145); eGFR > 60.00
[2023-11-17] MEDS: PULMICORT 0.5 MG INH ×2 (08:35→19:39)
[2023-11-17 09:32] LABS: Glucose - Point of Care 122 mg/dl (70-99)
[2023-11-17] MEDS: COLACE 100 MG PO ×2 (09:43→20:29)
[2023-11-17] MEDS: VITAMIN B1 100 MG TUBE (09:43)
[2023-11-17] MEDS: DELTASONE 10 MG TUBE ×2 (09:43→20:29)
[2023-11-17] MEDS: CLARITIN 10 MG PO (09:44)
[2023-11-17] MEDS: INDERAL 10 MG TUBE ×3 (09:44→21:23)
[2023-11-17] MEDS: MYCELEX TROCHE 10 MG PO ×3 (09:44→21:22)
[2023-11-17] MEDS: HYDREA 500 MG PO ×2 (09:45→20:29)
[2023-11-17] MEDS: LOVENOX 100 MG SC ×2 (09:45→20:30)
[2023-11-17] MEDS: SUBUTEX 2 MG SL ×4 (09:45→21:23)
[2023-11-17] MEDS: LANTUS 0.1 UNITS SC (09:46)
[2023-11-17] MEDS: LIDOCAINE 4% PATCH 1 PATCH TOPICAL (09:46)
[2023-11-17] MEDS: GASTROCROM 300 MG PO ×4 (09:46→21:23)
[2023-11-17] MEDS: PEPCID 40 MG IV ×2 (09:51→20:29)
[2023-11-17] MEDS: NSS (PRESERVATIVE FREE) 6 ML IV ×2 (09:51→20:29)
[2023-11-17] MEDS: NSS 1000 IV (09:52)
[2023-11-17] MEDS: NOVOLOG FLEXPEN 3 UNITS SC ×3 (10:04→17:39)
[2023-11-17] MEDS: NOVOLOG FLEXPEN-LOW RESISTANCE SC ×3 (10:05→17:39)
[2023-11-17] MEDS: DESENEX/MITRAZOL/ZEASORB 1 APPLIC TOPICAL ×2 (10:05→20:31)
[2023-11-17] MEDS: MIRALAX 17 GRAMS PO (10:06)
[2023-11-17] MEDS: NON-FORMULARY ITEM NASAL (10:06)
[2023-11-17] MEDS: ZADITOR 1 DROP BOTH EYES ×2 (10:07→20:30)
[2023-11-17] MEDS: BENADRYL 250 MG IV (10:07)
[2023-11-17] MEDS: ZOFRAN 4 MG IV ×3 (10:07→23:03)
[2023-11-17] MEDS: NON-FORMULARY ITEM 1 MG PO ×2 (10:22→20:31)
[2023-11-17] MEDS: NON-FORMULARY ITEM 1 UNIT PO ×2 (10:24→20:31)
[2023-11-17] MEDS: NON-FORMULARY ITEM 80 MG PO (10:27)
[2023-11-17] MEDS: MYCELEX TROCHE PO ×2 (10:29→17:25)
[2023-11-17 13:07] LABS: Glucose - Point of Care 134 mg/dl (70-99)
[2023-11-17] MEDS: SINEMET 25-100 2 TABLET TUBE ×2 (13:25→17:26)
[2023-11-17] MEDS: NON-FORMULARY ITEM 200 MG PO (13:33)
--- NOTE | 2023-11-17 14:25 | CM ---
CM following re: discharge planning.
Reviewed pt's chart, met with pt. Per chart review, continue current treatments, continue slow Benadryl drip taper, Continue buprenorphine 2 mg 4 times daily.
Pt presents sitting in the bed with normal mood, full affect, direct oriented thoughts, smiling during entire interview. From first minutes of meeting, pt stated: 'It's time for me to leave the hospital, as you know my mother refused to take me home
and I am not going to rack worker her and it will be time when we as a family will get together again'. Pt stated her stepfather Jl Silva [phone] stepped to help to get an apartment. Pt stated he went to tour a new apartment and pt was on live
video tour. Per pt, she likes an apartment and her stepfather will help to pay some for that apartment and it will need some tome to sign a list and to put deposits. Pt stated her father Abdi Ontiveros [phone] and stepfather Jl Silva will
help with groceries. Pt stated her mother and her father have been since she was 17. Pt stated she understands that her mother does not make any efforts to help her and she has no regret. Pt stated she is approved for SSD and now she has
an income that she can pay partially for her apartment.
Pt stated she keeps in touch with [facility] patient services coordinator Roslyn Ferreira [phone]. CM spoke to Roslyn and she expressed he impressive feelings regarding regarding the starting point to a solution for pt's discharge plan. Roslyn stated she tried
to connect the pt with Housing resources and to get the pt to State subsidized apartment and nothing is available. per Roslyn she has been discussed the housing issues with the pt. Roslyn did confirm that pt approved for SSD and she definitely can use a
partial of her SSD to pay for the apartment rent. Roslyn stated lesly will coordinate pt's care at a new apartment with [facility] and Roslyn stated that 24/7 caregiver services will be resumed and if pt needs less than 24/7 care then services can be
reduced.
Pt stated she feels she will not needs 24/7 caregiver services and she will discuss it with [facility] patient services coordinator Roslyn. Pt stated she had before [facility] 24/7 caregiver services and pt asked to call [facility] coordinator Cookie
[phone]. CM called Cookie who was not available and CM has to leave a message.
Pt is aware that PT and OT recommends home PT and pt stated she is known to [facility] and she is requested [facility] at home. CM will fax a referral to [facility] when housing issue has been resolved.
Pt stated that [facility] provided home infusion at home. Pharmacist Saravanan [phone]. CM spoke to pharmacist Saravanan and he confirmed as soon as pt has a place to live and caregiver services in place [facility]
will resume services.
CM called pt's father Abdi and stepfather Jl and has to leave messages.
Pt expressed her great attitude and motivations to get back to the community with living in a new apartment with resumptions of existing services and pt expressed her great appreciation for assisting with discharge planning.
D/C plan: home to a new apartment when lease is in place with [facility] caregiver services, [facility], [facility], [facility] patient services coordinator follow up and family support.
CM will follow to assist pt with discharge back to community based living with resumption of existing services.
--- NOTE | 2023-11-17 16:07 | W.PN.HOSP.TC ---
Today's Communication/Plan
-
Plan is to reduce Benadryl drip to 9 mg an hour on 11/17.
Continue supportive care
Disposition efforts
Assessment / Plan
Assessment / Plan
Impression:
Gram-negative bacteremia due to chronic infected PICC line.
Fever on admission with no evidence of sepsis (tachycardia likely fever mediated)
Conditions prior to admission:
1. Mast cell activation syndrome.
2. Chronic dystonic reaction.
3. Orthostatic hypotension with postural orthostatic and
tachycardia syndrome.
4. Dopa sensitive dystonia.
5. Steroid-induced diabetes.
6. Prior history of deep venous thrombosis and pulmonary embolism.
7. Chronic pain syndrome.
8. Migraine headaches.
9. Gastroesophageal reflux disease.
10. Benzodiazepine and opiate dependence.
11. Restless legs syndrome.
12. Insomnia.
13. History of vocal cord dysfunction.
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
15. Gastroparesis.
16. 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
17. 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
Plan:
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
PICC line removed and PICC line replaced on 09/23
Repeated blood cultures negative on 09/20 but no other cultures obtained
Finished cipro on 10/06/23 (was on 750mg BID)
GJ tube in place
Replaced by interventional radiology on 09/22
Replaced by interventional radiology 11/04 due to concern leakage
HX Recurrent Anaphylaxis / Mast Cell Flare Episodes on chronic steroids
Mast Cell Activation Syndrome
DOPA-Responsive Dystonia
-follows with Dr. Lizabeth Villanueva at [facility] hematology.
- Continue Ativan
�-cont Gleevac ,steroids
�--Levalbuterol as needed, to do her eyedrops
-Continue carbidopa levodopa
-prednisone continued
-Outpatient IV Benadryl drip at 15 milligram an hour upon presentation. As discussed with primary bull ladle tender Dr. Mora plan is to slowly taper. Decrease Benadryl drip to 11 mg an hour on 11/09.
dystonia/movement disorder-patient apparently has dystonic features with her mast cell activation syndrome. I could not find in literature as a routine clinical presentation but according to patient apparently this is very unusual feature which was
noted in few other patients . She was on IV Benadryl pump at 15 mg/h at home.
-baclofen continued
-sinemet continued
-episodes with vasovagal response when trying to have a BM - start standing miralax and colace BID
Chronic pain syndrome-on high doses of narcotics (chronic opioid use with dependence) including p.o. Dilaudid and Suboxone at home. Again unclear the source of her pain.
GERD
-famotidine continued
-acipHex continued
-simethicone continued
iron def anemia
-ferrous sulfate continued
hxt of tachycardia
-EKG with sinus tachycardia
-propranolol continued
Chronic Nausea / Esophageal Dysmotility/gastroparesis
History GJ tube
�- Continue diet as tolerated.
�- Continue G-tube to gravity for chronic nausea.
�- Meds via J-tube.
-Zofran every 8 hours as needed
-Continue Pepcid
-emend continued
- PEG tube site without any signs of cellulitis. CT of the abdomen pelvis shows no subcutaneous collection around the PEG tube and it is in place.
Acute fractures of the left 6 anterolateral 6th and 7th ribs
-Suspect from recent fall on 10/03
-10/25 complains of pain on the posterolateral lower ribs
-Continue lidocaine patch, add heating packs
Steroid-Induced DM-II--
She remains on steady dose of prednisone
Blood glucose remains marginal
Monitor oral intake
Reduce Lantus and NovoLog AC
Continue serial Accu-Cheks with basal bolus protocol.
S/p fall overnight 10/03-10/04
imaging negative for bleed or fracture
one more dose IV dilaudid now
Steroid-Induced Osteoporosis
Chronic Pain Syndrome secondary to the above on chronic opiates
�- Continue buprenorphine 2 mg 4 times daily , Dilaudid 8 mg as needed
�- PT / OT evaluations.
�- Follow-up with usual communications specialist after discharge.
allergy induced asthma
chronic hypoxic respiratory failure--on O2
-albuterol continued
-budesonide continued
-cetirizine continued
-cromolyn continued
Thrush
Started clotrimazole Troches for thrush 11/08
Migraine Hx
ODT Nurtec as needed
Restless leg syndrome
-Continue baclofen
History of DVT/PE
#Takes subcu Lovenox 100 mg twice daily
DNR on admission
Disposition: Discussion with primary bull ladle tender Dr. Ethan Villanueva on 10/09. Discussed possibility of attempting weaning Benadryl drip likely could be done as outpatient. With current family social situation, unfortunately there is no options
for disposition other than home on IV infusion. Possibility of a transfer to [facility] discussed as well, although according to Dr. Villanueva hospital administration declined services due to complexity. Also discussed possibility of
transfer to tertiary center ([facility] declined in the past).
10/[address] iVllanueva over the phone as well as [facility] transfer center.
Complex patient. Attempt to wean off Benadryl drip over the last 2 weeks with persistent dystonic episodes
While patient is relatively stable with her current condition, given complex clinical picture requiring multi disciplinary approach not limited to medicine, hematology, allergology, as well as neuropsychiatric assessment, patient would be better
served at a tertiary facility. Patient was accepted to [facility] for transfer, but hospital administration denied her transfer due to complexity (discussed with patient who is aware)
Anticipated Discharge: > 48 hours
Subjective/Interval History
-
Date of Service: November 17, 2023
Objective Data
-
Labs:
Laboratory Results
11/17/23
05:53
WBC 8.1
Hgb 10.8 L
Hct 32.6 L
Plt Count 271
Sodium 136
Potassium 4.2
Chloride 103
Carbon Dioxide 27
BUN 7
Creatinine 0.4 L
Glucose 174 H
Calcium 8.8
Vital Signs:
Vital Signs
Temp Pulse Resp BP Pulse Ox
97.9 F 109 15 121/80 93
11/17/23 03:24 11/17/23 14:00 11/17/23 14:00 11/17/23 12:00 11/17/23 15:47
I&O
11/16/23 11/17/23 11/18/23
06:59 06:59 06:59
Intake Total 3160 / 3160 2320 / 2320
Output Total 5050 / 5050 2975 / 2975
Balance -1890 / -1890 -655 / -655
Physical Exam
-
General: Well Developed, Well Nourished and No Apparent Distress
HEENT: Normocephalic, Atraumatic and Other (round siegel facies)
Respiratory: Clear to Auscultation; Negative Wheezes or Rhonchi
Cardiac: Regular Rhythm and S1/S2; Negative Murmur
GI: Soft, Nontender, Nondistended, Normal Bowel Sounds and Peg Tube
Musculoskeletal: No Clubbing, No Cyanosis and No Edema
[2023-11-17] MEDS: ZYRTEC 10 MG TUBE ×2 (17:25→21:23)
[2023-11-17 17:48] LABS: Glucose - Point of Care 144 mg/dl (70-99)
[2023-11-17] MEDS: DUONEB 3 ML INH (19:39)
[2023-11-17] MEDS: FEOSOL 325 MG PO (21:22)
[2023-11-17 21:46] LABS: Glucose - Point of Care 153 mg/dl (70-99)
--- NOTE | 2023-11-17 23:09 | PTCARENOTE ---
Pt c/o nausea (PRN Zofran given). Pt on 1L NC O2 sat 93%. Pw in place - hygiene provided. Benadryl gtt @ 10 ml/hr. Pt is laying comfortable in bed with call sanchez in reach.
[2023-11-18] VITALS (8 sets, daily range): BP systolic 106–122; BP diastolic 64–93
[2023-11-18] MEDS: BENADRYL 25 MG IV ×6 (00:36→21:04)
[2023-11-18] MEDS: LIORESAL 10 MG TUBE ×3 (05:10→21:20)
[2023-11-18] MEDS: GASTROCROM 300 MG PO ×4 (05:10→21:21)
[2023-11-18] MEDS: SINEMET 25-100 1.5 TABLET TUBE ×2 (05:11→08:57)
[2023-11-18] MEDS: ZOFRAN 4 MG IV ×3 (06:36→22:31)
[2023-11-18] MEDS: ATIVAN 2 MG SL ×4 (06:36→21:04)
[2023-11-18] MEDS: PULMICORT 0.5 MG INH ×2 (07:26→19:40)
[2023-11-18] MEDS: SUBUTEX 2 MG SL ×4 (08:56→21:19)
[2023-11-18] MEDS: MYCELEX TROCHE 10 MG PO ×5 (08:56→21:17)
[2023-11-18] MEDS: VITAMIN B1 100 MG TUBE (08:57)
[2023-11-18] MEDS: INDERAL 10 MG TUBE ×3 (08:57→21:18)
[2023-11-18] MEDS: DELTASONE 10 MG TUBE ×2 (08:57→21:20)
[2023-11-18] MEDS: COLACE 100 MG PO (08:57)
[2023-11-18] MEDS: LANTUS 0.1 UNITS SC (08:58)
[2023-11-18] MEDS: HYDREA 500 MG PO ×2 (08:58→21:17)
[2023-11-18] MEDS: MIRALAX 17 GRAMS PO (08:58)
[2023-11-18] MEDS: PEPCID 40 MG IV ×2 (08:58→20:59)
[2023-11-18] MEDS: LOVENOX 100 MG SC ×2 (08:58→20:57)
[2023-11-18] MEDS: LIDOCAINE 4% PATCH 1 PATCH TOPICAL (08:58)
[2023-11-18] MEDS: NOVOLOG FLEXPEN 3 UNITS SC ×3 (09:03→17:37)
[2023-11-18] MEDS: NOVOLOG FLEXPEN-LOW RESISTANCE SC ×2 (09:03→17:36)
[2023-11-18] MEDS: NON-FORMULARY ITEM NASAL (09:04)
[2023-11-18] MEDS: ZADITOR 1 DROP BOTH EYES ×2 (09:05→21:22)
[2023-11-18] MEDS: NSS (PRESERVATIVE FREE) 6 ML IV ×2 (09:06→21:00)
[2023-11-18] MEDS: NSS 1000 IV (09:06)
[2023-11-18] MEDS: CLARITIN 10 MG PO (09:07)
[2023-11-18] MEDS: DESENEX/MITRAZOL/ZEASORB 1 APPLIC TOPICAL ×2 (09:07→21:22)
[2023-11-18] MEDS: NON-FORMULARY ITEM 1 UNIT PO ×2 (09:09→21:24)
[2023-11-18] MEDS: NON-FORMULARY ITEM 80 MG PO (09:09)
[2023-11-18] MEDS: NON-FORMULARY ITEM 1 MG PO ×2 (09:09→21:24)
[2023-11-18 09:13] LABS: Glucose - Point of Care 112 mg/dl (70-99)
[2023-11-18] MEDS: ADRENALIN 0.3 MG IM ×2 (10:50→11:05)
[2023-11-18] MEDS: DUONEB 3 ML INH ×2 (10:58→19:40)
[2023-11-18] MEDS: BENADRYL 250 MG IV (11:00)
[2023-11-18] MEDS: CATHFLO/ACTIVASE 2 MG IV (11:11)
[2023-11-18] MEDS: BENADRYL 50 MG IV (11:37)
[2023-11-18] MEDS: ATIVAN 2 MG IV (11:37)
[2023-11-18] MEDS: NSS (PRESERVATIVE FREE) 1 ML IV (12:45)
[2023-11-18] MEDS: NOVOLOG FLEXPEN-LOW RESISTANCE 1 UNITS SC (12:46)
[2023-11-18 12:53] LABS: Glucose - Point of Care 197 mg/dl (70-99)
[2023-11-18] MEDS: SINEMET 25-100 2 TABLET TUBE ×2 (14:58→17:33)
[2023-11-18] MEDS: NON-FORMULARY ITEM 200 MG PO (15:05)
--- NOTE | 2023-11-18 16:45 | PTCARENOTE ---
see nursing assessment. sinus rythym on monitor. pt had dystonic epsiode this am. medicated with prn meds as per order. epi given x 2 . pt stating at that time that she requires additional ativan and benadryl to break the dystonia. pt diaphoretic
and tachycardic during episode. 1 x doses of additional ativan and benadryl given per order with resolution of dystonia. pt upset over complications with getting an apartment, emotional support provided.
[2023-11-18 17:31] LABS: Glucose - Point of Care 117 mg/dl (70-99)
[2023-11-18] MEDS: ZYRTEC 10 MG TUBE ×2 (17:33→21:21)
--- NOTE | 2023-11-18 18:24 | W.PN.HOSP.TC ---
Today's Communication/Plan
-
Another episode of dystonia today requiring additional dose of IV lorazepam and Benadryl.
Continue IV Benadryl drip with plan to reduce dose to 9 mg an hour tomorrow.
Disposition efforts.
Assessment / Plan
Assessment / Plan
Impression:
Gram-negative bacteremia due to chronic infected PICC line.
Fever on admission with no evidence of sepsis (tachycardia likely fever mediated)
Conditions prior to admission:
1. Mast cell activation syndrome.
2. Chronic dystonic reaction.
3. Orthostatic hypotension with postural orthostatic and
tachycardia syndrome.
4. Dopa sensitive dystonia.
5. Steroid-induced diabetes.
6. Prior history of deep venous thrombosis and pulmonary embolism.
7. Chronic pain syndrome.
8. Migraine headaches.
9. Gastroesophageal reflux disease.
10. Benzodiazepine and opiate dependence.
11. Restless legs syndrome.
12. Insomnia.
13. History of vocal cord dysfunction.
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
15. Gastroparesis.
16. 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
17. 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
Plan:
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
PICC line removed and PICC line replaced on 09/23
Repeated blood cultures negative on 09/20 but no other cultures obtained
Finished cipro on 10/06/23 (was on 750mg BID)
GJ tube in place
Replaced by interventional radiology on 09/22
Replaced by interventional radiology 11/04 due to concern leakage
HX Recurrent Anaphylaxis / Mast Cell Flare Episodes on chronic steroids
Mast Cell Activation Syndrome
DOPA-Responsive Dystonia
-follows with Dr. Lizabeth Villanueva at [facility] hematology.
- Continue Ativan
�-cont Gleevac ,steroids
�--Levalbuterol as needed, to do her eyedrops
-Continue carbidopa levodopa
-prednisone continued
-Outpatient IV Benadryl drip at 15 milligram an hour upon presentation. As discussed with primary charge out clerk Dr. Mora plan is to slowly taper. Decrease Benadryl drip to 11 mg an hour on 11/09.
dystonia/movement disorder-patient apparently has dystonic features with her mast cell activation syndrome. I could not find in literature as a routine clinical presentation but according to patient apparently this is very unusual feature which was
noted in few other patients . She was on IV Benadryl pump at 15 mg/h at home.
-baclofen continued
-sinemet continued
-episodes with vasovagal response when trying to have a BM - start standing miralax and colace BID
Chronic pain syndrome-on high doses of narcotics (chronic opioid use with dependence) including p.o. Dilaudid and Suboxone at home. Again unclear the source of her pain.
GERD
-famotidine continued
-acipHex continued
-simethicone continued
iron def anemia
-ferrous sulfate continued
hxt of tachycardia
-EKG with sinus tachycardia
-propranolol continued
Chronic Nausea / Esophageal Dysmotility/gastroparesis
History GJ tube
�- Continue diet as tolerated.
�- Continue G-tube to gravity for chronic nausea.
�- Meds via J-tube.
-Zofran every 8 hours as needed
-Continue Pepcid
-emend continued
- PEG tube site without any signs of cellulitis. CT of the abdomen pelvis shows no subcutaneous collection around the PEG tube and it is in place.
Acute fractures of the left 6 anterolateral 6th and 7th ribs
-Suspect from recent fall on 10/03
-10/25 complains of pain on the posterolateral lower ribs
-Continue lidocaine patch, add heating packs
Steroid-Induced DM-II--
She remains on steady dose of prednisone
Blood glucose remains marginal
Monitor oral intake
Reduce Lantus and NovoLog AC
Continue serial Accu-Cheks with basal bolus protocol.
S/p fall overnight 10/03-10/04
imaging negative for bleed or fracture
one more dose IV dilaudid now
Steroid-Induced Osteoporosis
Chronic Pain Syndrome secondary to the above on chronic opiates
�- Continue buprenorphine 2 mg 4 times daily , Dilaudid 8 mg as needed
�- PT / OT evaluations.
�- Follow-up with usual supervisory investigative specialist after discharge.
allergy induced asthma
chronic hypoxic respiratory failure--on O2
-albuterol continued
-budesonide continued
-cetirizine continued
-cromolyn continued
Thrush
Started clotrimazole Troches for thrush 11/08
Migraine Hx
ODT Nurtec as needed
Restless leg syndrome
-Continue baclofen
History of DVT/PE
#Takes subcu Lovenox 100 mg twice daily
DNR on admission
Disposition: Discussion with primary charge out clerk Dr. Ethan Villanueva on 10/09. Discussed possibility of attempting weaning Benadryl drip likely could be done as outpatient. With current family social situation, unfortunately there is no options
for disposition other than home on IV infusion. Possibility of a transfer to [facility] discussed as well, although according to Dr. Villanueva hospital administration declined services due to complexity. Also discussed possibility of
transfer to tertiary center ([facility] declined in the past).
10/[address] Villanueva over the phone as well as [facility] transfer center.
Complex patient. Attempt to wean off Benadryl drip over the last 2 weeks with persistent dystonic episodes
While patient is relatively stable with her current condition, given complex clinical picture requiring multi disciplinary approach not limited to medicine, hematology, allergology, as well as neuropsychiatric assessment, patient would be better
served at a tertiary facility. Patient was accepted to [facility] for transfer, but hospital administration denied her transfer due to complexity (discussed with patient who is aware)
Anticipated Discharge: > 48 hours
Subjective/Interval History
-
Date of Service: November 18, 2023
Objective Data
-
Vital Signs:
Vital Signs
Temp Pulse Resp BP Pulse Ox
97.5 F 98 15 110/75 95
11/18/23 03:31 11/18/23 16:00 11/18/23 14:00 11/18/23 16:00 11/18/23 16:51
I&O
11/17/23 11/18/23 11/19/23
06:59 06:59 06:59
Intake Total 2320 / 2320 3450 / 3450 1000 / 1000
Output Total 2975 / 2975 3150 / 3150 950 / 950
Balance -655 / -655 300 / 300 50 / 50
Physical Exam
-
General: Well Developed and No Apparent Distress
HEENT: Normocephalic, Atraumatic and Moist Mucous Membranes
Respiratory: Clear to Auscultation
Cardiac: Regular Rhythm and S1/S2; Negative Murmur, Rub or Gallop
GI: Soft, Nontender, Nondistended and Normal Bowel Sounds; Negative Organomegaly
Rectal: Deferred by Provider
Musculoskeletal: No Clubbing, No Cyanosis and No Edema
Skin: Negative Rash
Neuro: Nonfocal/Grossly Intact
[2023-11-18] MEDS: FEOSOL 325 MG PO (21:20)
[2023-11-18] MEDS: COLACE PO (21:20)
[2023-11-18 21:32] LABS: Glucose - Point of Care 115 mg/dl (70-99)
--- NOTE | 2023-11-18 21:49 | PTCARENOTE ---
Pt received from previous RN. Pt requesting PRN Ativan and Benadryl, as she feels 'off' and unwell from coughing, feels she may have a episode. Pt given PRN meds. Pt RR even and unlabored, HR 100, other Vs stable. Pt states feeling better after
receiving PRN Meds.
[2023-11-19] VITALS (9 sets, daily range): BP systolic 90–120; BP diastolic 59–80
[2023-11-19] MEDS: ATIVAN 2 MG SL ×6 (01:47→23:17)
[2023-11-19] MEDS: BENADRYL 25 MG IV ×6 (01:48→23:17)
--- NOTE | 2023-11-19 02:08 | PTCARENOTE ---
Pt with episode of vomiting. Pt ringing call sanchez. This RN entered the room to Pt vomiting and visibly anxious. Pt expresses need for ordered PRN Benadryl and PRN Ativan. Pt states she is hot as well. Pt AAO, expressing needs to nurse. Pt VS
unchanged baseline, RR 22, HR 100, sat 95 on 2L, BP 110/80 . Pt given ice pack for neck, assisted to brush teeth after vomiting, and given dose of PRN Ativan and Benadryl. Zofran given at 22:30, and is Q6, unable to administer early. Pt visibly
more relaxed and vomiting subsided after administering Meds listed above. call light in reach.
[2023-11-19] MEDS: LIORESAL 10 MG TUBE ×3 (05:39→21:52)
[2023-11-19] MEDS: SINEMET 25-100 1.5 TABLET TUBE ×2 (05:40→09:35)
[2023-11-19] MEDS: ZOFRAN 4 MG IV ×2 (05:40→20:13)
[2023-11-19] MEDS: PULMICORT 0.5 MG INH ×2 (07:49→20:43)
[2023-11-19 08:01] LABS: Glucose - Point of Care 92 mg/dl (70-99)
[2023-11-19] MEDS: NOVOLOG FLEXPEN-LOW RESISTANCE SC ×3 (08:12→17:03)
[2023-11-19] MEDS: LOVENOX 100 MG SC ×2 (08:12→21:58)
[2023-11-19] MEDS: VITAMIN B1 100 MG TUBE (08:13)
[2023-11-19] MEDS: MIRALAX 17 GRAMS PO (08:13)
[2023-11-19] MEDS: SUBUTEX 2 MG SL ×4 (08:13→21:55)
[2023-11-19] MEDS: LIDOCAINE 4% PATCH 1 PATCH TOPICAL (08:13)
[2023-11-19] MEDS: DELTASONE 10 MG TUBE ×2 (08:13→21:51)
[2023-11-19] MEDS: INDERAL 10 MG TUBE ×3 (08:14→21:53)
[2023-11-19] MEDS: HYDREA 500 MG PO ×2 (08:14→21:52)
[2023-11-19] MEDS: COLACE 100 MG PO (08:14)
[2023-11-19] MEDS: DESENEX/MITRAZOL/ZEASORB 1 APPLIC TOPICAL ×2 (08:14→21:51)
[2023-11-19] MEDS: CLARITIN 10 MG PO (08:14)
[2023-11-19] MEDS: NSS 1000 IV (08:17)
[2023-11-19] MEDS: GASTROCROM 300 MG PO ×4 (08:22→21:57)
[2023-11-19] MEDS: NON-FORMULARY ITEM 1 MG PO ×2 (08:24→21:57)
[2023-11-19] MEDS: NON-FORMULARY ITEM 1 UNIT PO ×2 (08:25→21:56)
[2023-11-19] MEDS: NON-FORMULARY ITEM 80 MG PO (08:26)
[2023-11-19] MEDS: NSS (PRESERVATIVE FREE) 6 ML IV ×2 (08:41→21:55)
[2023-11-19] MEDS: PEPCID 40 MG IV ×2 (08:41→21:55)
[2023-11-19] MEDS: ZADITOR 1 DROP BOTH EYES ×2 (08:42→21:57)
[2023-11-19] MEDS: MYCELEX TROCHE 10 MG PO ×5 (08:42→21:55)
[2023-11-19] MEDS: NON-FORMULARY ITEM NASAL (08:42)
[2023-11-19] MEDS: LANTUS 0.1 UNITS SC (09:09)
[2023-11-19] MEDS: NOVOLOG FLEXPEN 3 UNITS SC ×3 (09:34→18:18)
[2023-11-19] MEDS: BENADRYL 250 MG IV (10:50)
--- NOTE | 2023-11-19 11:51 | CM ---
Call received from Rae Ron, photocopying machine operator Care at [facility], ([phone]). She stated she could assist if patient should need post acute placement. Update to CM
[2023-11-19 12:05] LABS: Glucose - Point of Care 128 mg/dl (70-99)
--- NOTE | 2023-11-19 12:58 | PTCARENOTE ---
Assumed care of patient at beginning of this shift from previous RN with benadryl infusing. IVF started as per daily order. Patient states she has had much better news today with her stepfather finding an apartment. She states he is coming up to see
her today to sign an application for an apartment. See worklist for full assessment and vital signs; see MAR for med administration. Patient worked with PT/OT and currently OOB in chair.
--- NOTE | 2023-11-19 13:09 | CM ---
Addendum entered by Saw Zambrano 11/19/23 14:30:
CM met with pt again and pt's father Jl at bedside. pt expressed to me her tearful feelings regarding the plan of reducing her meds. Pt stated she is comfortable to be on medications she had before and she is very unhappy of reducing any of her
meds. CM explained to the pt the importance to have needed medications and encouraged to talk to MD regarding the benefits of reducing medications. pt reluctantly expressed her understanding.
CM introduced myself to pt's stepfather, expressed appreciation for stepping in to help the pt with living in a community and especially helping the pt with getting independent apartment. Pt's stepfather stated that the pt now completing an
application and he will submit it to an apartment complex with a request of 1 bedroom apartment.
Pt expressed her unhappy feelings regarding CMN communication with her stepfather and she stated she needs time to complete the application.
Original Note:
CM following re: discharge planning.
Reviewed pt's chart, met with pt.
Pt stated that she is communicating diligently with her father, stepfather and stepmother regarding a process of getting her an apartment. CM informed the pt that neither father nor stepfather are returning CM calls and 3 messages had left already.
Pt stated there is some family drama regarding helping her to get an apartment and pt stated she thinks that her mother might not in full agreement with pt's father and stepfather to help. Pt stated she was disappointed when her stepfather toured an
apartment with pt on face call and her mother was there. pt stated she does not want her mother to be involved in that process because pt stated she is not accepting any good impact from her. Anyway, pt stated if her mother is willing to help she
will not against it and if her mother will be able to help with laundry she will allow but pt stated she will never give her mother a zamora from her new apartment.
Pt stated her father and stepfather will be discussing this afternoon all necessary steps of getting an apartment and pt's stated she is adult and she would like to be a part of this process. Pt stated she is comfortable that her father and
stepfather will help her with a new apartment. Pt stated that her father, stepfather with her will complete an application for an apartment today.
Pt stated she assured her family that she will have 24/ caregiver services, will have VN services and [facility] will provide necessary medications and she knows how to manage, she has been managing before. Also, pt stated she spoke
to Palliative care. Pt stated she is communicating her discharge progress with [facility] director public service [place].
Pt started she is most definitely sure that she will get her new apartment and she will be able to live in a community with necessary care and support.
D/C plan: home to a new apartment when lease is in place with [facility] [place] caregiver services, [facility], [facility], [facility] director public service follow up and family support.
CM will follow to assist pt with discharge back to community based living with resumption of existing services.
--- NOTE | 2023-11-19 13:17 | W.PN.UPDATE ---
Update Note
Progress Note Update
chart reviewed. spoke at length w nursing about the challenges involved in ms lema's care. the patient was with her stepfather and requested that i come back at another time as she had important logistical issues to discuss with him. pat is
in the planning stages of finding an appartment for her to be dc to w staff coming in to provide care for her. this mortgage loan underwriter is unable to come back later today but will have psych look in on her tomorrow or the day after.
[2023-11-19] MEDS: SINEMET 25-100 2 TABLET TUBE ×2 (14:37→18:19)
[2023-11-19] MEDS: NON-FORMULARY ITEM 100 MG PO (14:44)
[2023-11-19] MEDS: ZYRTEC 10 MG TUBE ×2 (17:04→21:53)
[2023-11-19 17:11] LABS: Glucose - Point of Care 112 mg/dl (70-99)
--- NOTE | 2023-11-19 19:14 | W.PN.HOSP.TC ---
Today's Communication/Plan
-
Decrease Benadryl drip down to 9 mg an hour.
Assessment / Plan
Assessment / Plan
Impression:
Gram-negative bacteremia due to chronic infected PICC line.
Fever on admission with no evidence of sepsis (tachycardia likely fever mediated)
Conditions prior to admission:
1. Mast cell activation syndrome.
2. Chronic dystonic reaction.
3. Orthostatic hypotension with postural orthostatic and
tachycardia syndrome.
4. Dopa sensitive dystonia.
5. Steroid-induced diabetes.
6. Prior history of deep venous thrombosis and pulmonary embolism.
7. Chronic pain syndrome.
8. Migraine headaches.
9. Gastroesophageal reflux disease.
10. Benzodiazepine and opiate dependence.
11. Restless legs syndrome.
12. Insomnia.
13. History of vocal cord dysfunction.
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
15. Gastroparesis.
16. 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
17. 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
Plan:
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
PICC line removed and PICC line replaced on 09/23
Repeated blood cultures negative on 09/20 but no other cultures obtained
Finished cipro on 10/06/23 (was on 750mg BID)
GJ tube in place
Replaced by interventional radiology on 09/22
Replaced by interventional radiology 11/04 due to concern leakage
HX Recurrent Anaphylaxis / Mast Cell Flare Episodes on chronic steroids
Mast Cell Activation Syndrome
DOPA-Responsive Dystonia
-follows with Dr. Lizabeth Villanueva at [facility] hematology.
- Continue Ativan
�-cont Gleevac ,steroids
�--Levalbuterol as needed, to do her eyedrops
-Continue carbidopa levodopa
-prednisone continued
-Outpatient IV Benadryl drip at 15 milligram an hour upon presentation. As discussed with primary gmat instructor Dr. Mora plan is to slowly taper. Decrease Benadryl drip down to 9 mg an hour on 11/18.
dystonia/movement disorder-patient apparently has dystonic features with her mast cell activation syndrome. I could not find in literature as a routine clinical presentation but according to patient apparently this is very unusual feature which was
noted in few other patients . She was on IV Benadryl pump at 15 mg/h at home.
-baclofen continued
-sinemet continued
-episodes with vasovagal response when trying to have a BM - start standing miralax and colace BID
Chronic pain syndrome-on high doses of narcotics (chronic opioid use with dependence) including p.o. Dilaudid and Suboxone at home. Again unclear the source of her pain.
GERD
-famotidine continued
-acipHex continued
-simethicone continued
iron def anemia
-ferrous sulfate continued
hxt of tachycardia
-EKG with sinus tachycardia
-propranolol continued
Chronic Nausea / Esophageal Dysmotility/gastroparesis
History GJ tube
�- Continue diet as tolerated.
�- Continue G-tube to gravity for chronic nausea.
�- Meds via J-tube.
-Zofran every 8 hours as needed
-Continue Pepcid
-emend continued
- PEG tube site without any signs of cellulitis. CT of the abdomen pelvis shows no subcutaneous collection around the PEG tube and it is in place.
Acute fractures of the left 6 anterolateral 6th and 7th ribs
-Suspect from recent fall on 10/03
-10/25 complains of pain on the posterolateral lower ribs
-Continue lidocaine patch, add heating packs
Steroid-Induced DM-II--
She remains on steady dose of prednisone
Blood glucose remains marginal
Monitor oral intake
Reduce Lantus and NovoLog AC
Continue serial Accu-Cheks with basal bolus protocol.
S/p fall overnight 10/03-10/04
imaging negative for bleed or fracture
one more dose IV dilaudid now
Steroid-Induced Osteoporosis
Chronic Pain Syndrome secondary to the above on chronic opiates
�- Continue buprenorphine 2 mg 4 times daily , Dilaudid 8 mg as needed
�- PT / OT evaluations.
�- Follow-up with usual origination specialist after discharge.
allergy induced asthma
chronic hypoxic respiratory failure--on O2
-albuterol continued
-budesonide continued
-cetirizine continued
-cromolyn continued
Thrush
Started clotrimazole Troches for thrush 11/08
Migraine Hx
ODT Nurtec as needed
Restless leg syndrome
-Continue baclofen
History of DVT/PE
#Takes subcu Lovenox 100 mg twice daily
DNR on admission
Disposition: Discussion with primary gmat instructor Dr. Ethan Villanueva on 10/09. Discussed possibility of attempting weaning Benadryl drip likely could be done as outpatient. With current family social situation, unfortunately there is no options
for disposition other than home on IV infusion. Possibility of a transfer to [facility] discussed as well, although according to Dr. Villanueva hospital administration declined services due to complexity. Also discussed possibility of
transfer to tertiary center ([facility] declined in the past).
10/[address] Villanueva over the phone as well as [facility] transfer center.
Complex patient. Attempt to wean off Benadryl drip over the last 2 weeks with persistent dystonic episodes
While patient is relatively stable with her current condition, given complex clinical picture requiring multi disciplinary approach not limited to medicine, hematology, allergology, as well as neuropsychiatric assessment, patient would be better
served at a tertiary facility. Patient was accepted to [facility] for transfer, but hospital administration denied her transfer due to complexity (discussed with patient who is aware)
Anticipated Discharge: > 48 hours
Subjective/Interval History
-
Date of Service: November 19, 2023
Objective Data
-
Vital Signs:
Vital Signs
Temp Pulse Resp BP Pulse Ox
97.9 F 99 20 92/65 96
11/19/23 15:00 11/19/23 16:00 11/19/23 16:00 11/19/23 11:51 11/19/23 10:00
I&O
11/18/23 11/19/23 11/20/23
06:59 06:59 06:59
Intake Total 3450 / 3450 1770 / 1770 240 / 240
Output Total 3150 / 3150 4450 / 4450 900 / 900
Balance 300 / 300 -2680 / -2680 -660 / -660
Physical Exam
-
General: Well Developed and No Apparent Distress
HEENT: Normocephalic, Atraumatic and Moist Mucous Membranes
Respiratory: Clear to Auscultation
Cardiac: Regular Rhythm and S1/S2; Negative Murmur, Rub or Gallop
GI: Soft, Nontender, Nondistended and Normal Bowel Sounds; Negative Organomegaly
Rectal: Deferred by Provider
Musculoskeletal: No Clubbing, No Cyanosis and No Edema
Skin: Negative Rash
Neuro: Nonfocal/Grossly Intact
--- NOTE | 2023-11-19 19:17 | PTCARENOTE ---
Addendum entered by Norma Page RN 11/19/23 20:43:
Pt episode lasting about a hour. Pt getting numerous prn medications including eip (see MAR)
Original Note:
Assumed care of Pt from day RN. During verbal report Pt began to have an episode requiring her Ativan and Benadryl. Pt informing this RN that she was upset with her family talking about her and saying mean things, that is why she believes she is
having an episode.
[2023-11-19] MEDS: ADRENALIN 0.3 MG IM ×2 (19:41→20:06)
[2023-11-19] MEDS: ATIVAN 0.5 MG IV (19:59)
[2023-11-19] MEDS: BENADRYL 12.5 MG IV (20:02)
[2023-11-19] MEDS: FEOSOL 325 MG PO (21:52)
[2023-11-19] MEDS: COLACE PO (22:10)
[2023-11-19 22:46] LABS: Glucose - Point of Care 226 mg/dl (70-99)
[2023-11-20] VITALS (7 sets, daily range): BP systolic 105–117; BP diastolic 70–87
[2023-11-20] MEDS: BENADRYL 25 MG IV ×5 (04:42→21:38)
[2023-11-20] MEDS: ATIVAN 2 MG SL ×5 (04:42→21:39)
[2023-11-20] MEDS: ZOFRAN 4 MG IV ×3 (04:42→17:24)
[2023-11-20] MEDS: LIORESAL 10 MG TUBE ×3 (05:38→21:01)
[2023-11-20] MEDS: SINEMET 25-100 1.5 TABLET TUBE ×2 (05:38→10:52)
[2023-11-20 08:09] LABS: Glucose - Point of Care 87 mg/dl (70-99)
[2023-11-20] MEDS: PULMICORT 0.5 MG INH ×2 (08:18→20:15)
[2023-11-20] MEDS: HYDREA 500 MG PO ×2 (08:51→20:49)
[2023-11-20] MEDS: LOVENOX 100 MG SC ×2 (08:51→20:50)
[2023-11-20] MEDS: GASTROCROM 300 MG PO ×4 (08:51→21:00)
[2023-11-20] MEDS: NON-FORMULARY ITEM 1 MG PO ×2 (08:52→20:49)
[2023-11-20] MEDS: NON-FORMULARY ITEM 1 UNIT PO ×2 (08:52→20:50)
[2023-11-20] MEDS: NON-FORMULARY ITEM 80 MG PO (08:53)
[2023-11-20] MEDS: MIRALAX PO (08:54)
[2023-11-20] MEDS: COLACE PO ×2 (08:54→20:48)
[2023-11-20] MEDS: SUBUTEX 2 MG SL ×4 (08:54→21:01)
[2023-11-20] MEDS: VITAMIN B1 100 MG TUBE (08:54)
[2023-11-20] MEDS: LIDOCAINE 4% PATCH 1 PATCH TOPICAL (08:54)
[2023-11-20] MEDS: DELTASONE 10 MG TUBE ×2 (08:55→20:48)
[2023-11-20] MEDS: MYCELEX TROCHE 10 MG PO ×4 (08:55→21:01)
[2023-11-20] MEDS: CLARITIN 10 MG PO (08:55)
[2023-11-20] MEDS: INDERAL 10 MG TUBE ×3 (08:55→21:01)
[2023-11-20] MEDS: ZADITOR 1 DROP BOTH EYES ×2 (08:56→20:53)
[2023-11-20] MEDS: PEPCID 40 MG IV ×2 (08:56→20:52)
[2023-11-20] MEDS: NSS (PRESERVATIVE FREE) 6 ML IV ×2 (08:56→20:51)
[2023-11-20] MEDS: NON-FORMULARY ITEM NASAL (08:57)
[2023-11-20] MEDS: DESENEX/MITRAZOL/ZEASORB 1 APPLIC TOPICAL ×2 (08:57→20:49)
--- NOTE | 2023-11-20 09:01 | W.PN.HOSP.TC ---
Today's Communication/Plan
-
see bold
Assessment / Plan
Assessment / Plan
Impression:
Gram-negative bacteremia due to chronic infected PICC line.
Fever on admission with no evidence of sepsis (tachycardia likely fever mediated)
Conditions prior to admission:
1. Mast cell activation syndrome.
2. Chronic dystonic reaction.
3. Orthostatic hypotension with postural orthostatic and
tachycardia syndrome.
4. Dopa sensitive dystonia.
5. Steroid-induced diabetes.
6. Prior history of deep venous thrombosis and pulmonary embolism.
7. Chronic pain syndrome.
8. Migraine headaches.
9. Gastroesophageal reflux disease.
10. Benzodiazepine and opiate dependence.
11. Restless legs syndrome.
12. Insomnia.
13. History of vocal cord dysfunction.
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
15. Gastroparesis.
16. 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
17. 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
Plan:
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
PICC line removed and PICC line replaced on 09/23
Repeated blood cultures negative on 09/20 but no other cultures obtained
Finished cipro on 10/06/23 (was on 750mg BID)
GJ tube in place
Replaced by interventional radiology on 09/22
Replaced by interventional radiology 11/04 due to concern leakage
HX Recurrent Anaphylaxis / Mast Cell Flare Episodes on chronic steroids
Mast Cell Activation Syndrome
DOPA-Responsive Dystonia
-follows with Dr. Lizabeth Villanueva at [facility] hematology.
- Continue Ativan
�-cont Gleevac ,steroids
�--Levalbuterol as needed, to do her eyedrops
-Continue carbidopa levodopa
-prednisone continued
-Outpatient IV Benadryl drip at 15 milligram an hour upon presentation. As discussed with primary oil expeller operator Dr. Mora plan is to slowly taper. Decreased Benadryl drip down to 9 mg an hour on 11/18.
dystonia/movement disorder-patient apparently has dystonic features with her mast cell activation syndrome. I could not find in literature as a routine clinical presentation but according to patient apparently this is very unusual feature which was
noted in few other patients . She was on IV Benadryl pump at 15 mg/h at home.
-baclofen continued
-sinemet continued
-episodes with vasovagal response when trying to have a BM - start standing miralax and colace BID
Chronic pain syndrome-on high doses of narcotics (chronic opioid use with dependence) including p.o. Dilaudid and Suboxone at home. Again unclear the source of her pain.
GERD
-famotidine continued
-acipHex continued
-simethicone continued
iron def anemia
-ferrous sulfate continued
hxt of tachycardia
-EKG with sinus tachycardia
-propranolol continued
Chronic Nausea / Esophageal Dysmotility/gastroparesis
History GJ tube
�- Continue diet as tolerated.
�- Continue G-tube to gravity for chronic nausea.
�- Meds via J-tube.
-Zofran every 8 hours as needed
-Continue Pepcid
-emend continued
- PEG tube site without any signs of cellulitis. CT of the abdomen pelvis shows no subcutaneous collection around the PEG tube and it is in place.
Acute fractures of the left 6 anterolateral 6th and 7th ribs
-Suspect from recent fall on 10/03
-10/25 complains of pain on the posterolateral lower ribs
-Continue lidocaine patch, add heating packs
Steroid-Induced DM-II--
She remains on steady dose of prednisone
Blood glucose remains marginal
Monitor oral intake
Reduce Lantus and NovoLog AC
Continue serial Accu-Cheks with basal bolus protocol.
S/p fall overnight 10/03-10/04
imaging negative for bleed or fracture
one more dose IV dilaudid now
Steroid-Induced Osteoporosis
Chronic Pain Syndrome secondary to the above on chronic opiates
�- Continue buprenorphine 2 mg 4 times daily , Dilaudid 8 mg as needed
�- PT / OT evaluations.
�- Follow-up with usual source water protection specialist after discharge.
allergy induced asthma
chronic hypoxic respiratory failure--on O2
-albuterol continued
-budesonide continued
-cetirizine continued
-cromolyn continued
Thrush
Started clotrimazole Troches for thrush 11/08
Migraine Hx
ODT Nurtec as needed
Restless leg syndrome
-Continue baclofen
History of DVT/PE
#Takes subcu Lovenox 100 mg twice daily
DNR on admission
Disposition: Discussion with primary oil expeller operator Dr. Ethan Villanueva on 10/09. Discussed possibility of attempting weaning Benadryl drip likely could be done as outpatient. With current family social situation, unfortunately there is no options
for disposition other than home on IV infusion. Possibility of a transfer to [facility] discussed as well, although according to Dr. Villanueva hospital administration declined services due to complexity. Also discussed possibility of
transfer to tertiary center ([facility] declined in the past).
10/[address] Villanueva over the phone as well as [facility] transfer center.
Complex patient. Attempt to wean off Benadryl drip over the last 2 weeks with persistent dystonic episodes
While patient is relatively stable with her current condition, given complex clinical picture requiring multi disciplinary approach not limited to medicine, hematology, allergology, as well as neuropsychiatric assessment, patient would be better
served at a tertiary facility. Patient was accepted to [facility] for transfer, but hospital administration denied her transfer due to complexity (discussed with patient who is aware)
Physical Exam
General: Obese, no acute distress
HEENT: Normocephalic, Atraumatic, EOMI, MMM
Respiratory: Clear to Auscultation bilaterally
Cardiac: Normal S1/S2, Regular Rate and Rhythm
GI: Soft, +GJ tube, Nontender, Nondistended, Normal Bowel Sounds
MSK: Tenderness to palpation of the left posterolateral lateral ribs
Extremities: No Clubbing, Cyanosis, or Edema
Neuro: Nonfocal/Grossly Intact
Anticipated Discharge: > 48 hours
Subjective/Interval History
-
Date of Service: November 20, 2023
Patient reports not feeling well. She was having another acute dystonic reaction. She received medications.
Objective Data
-
Vital Signs:
Vital Signs
Temp Pulse Resp BP Pulse Ox
97.9 F 93 18 108/70 98
11/20/23 04:00 11/20/23 08:20 11/20/23 08:20 11/20/23 04:00 11/20/23 08:20
I&O
11/19/23 11/20/23 11/21/23
06:59 06:59 06:59
Intake Total 1770 / 1770 1308 / 1308
Output Total 4450 / 4450 2300 / 2300
Balance -2680 / -2680 -992 / -992
[2023-11-20] MEDS: NSS 1000 IV (09:03)
[2023-11-20] MEDS: NOVOLOG FLEXPEN-LOW RESISTANCE SC ×3 (09:13→16:48)
[2023-11-20] MEDS: NOVOLOG FLEXPEN 3 UNITS SC ×3 (10:43→20:43)
[2023-11-20] MEDS: LANTUS 0.1 UNITS SC (10:47)
--- NOTE | 2023-11-20 11:39 | PTCARENOTE ---
Assumed care of patient at beginning of this shift from previous RN with benadryl infusing at 9ml/hr. Confirmed with Dr Willoughby that rate will not be decreased today. Patient requested and received benadryl and ativan prn during initial med pass; she
then c/o nausea and received IV zofran. She stated she is hopeful for a more positive day today. See worklist for full assessment and vital signs; see MAR for med administration.
[2023-11-20 12:20] LABS: Glucose - Point of Care 141 mg/dl (70-99)
[2023-11-20] MEDS: BENADRYL 250 MG IV (12:26)
[2023-11-20] MEDS: SINEMET 25-100 2 TABLET TUBE ×2 (14:00→17:29)
[2023-11-20] MEDS: NON-FORMULARY ITEM 200 MG PO (14:00)
[2023-11-20 16:58] LABS: Glucose - Point of Care 120 mg/dl (70-99)
[2023-11-20] MEDS: ADRENALIN 0.3 MG IM ×2 (17:22→17:40)
[2023-11-20] MEDS: ZYRTEC 10 MG TUBE ×2 (17:29→21:02)
[2023-11-20] MEDS: ATIVAN 1 MG IV (18:14)
[2023-11-20] MEDS: NSS (PRESERVATIVE FREE) 0.5 ML IV (18:14)
[2023-11-20] MEDS: BENADRYL 50 MG IV (18:15)
[2023-11-20] MEDS: MYCELEX TROCHE PO (18:18)
--- NOTE | 2023-11-20 18:37 | PTCARENOTE ---
Patient had dystonic episode that began at approximately 17:14 and lasted until approximately 18:30. Patient required 2 doses of epi, sl ativan, benadryl 25mg IV prn dose and zofran. Resp therapist called for treatment as patient was having
bronchial sounding coughing episodes during this; however when resp therapist came to room, patient was able to verbalize that her breathing was fine and she did not want a treatment. she was able to take her sl subutex in addition to the prn sl
ativan without difficulty during dystonic episode. Patient continued with the dystonia. Dr Willoughby notified, came up to see patient and ordered one-time dose of benadryl 50mg IV and ativan 1mg IV. Patient informed of orders and consented to both. Two ice
packs provided as per patient verbal request. Fan also provided. Patient now able to use call sanchez and her limbs are more relaxed. Assisted patient putting on R f/a brace at her request.
Patient not eating dinner at this time; lieny remains at bedside. Will report to oncoming shift that patient still will need her mealtime insulin.
[2023-11-20] MEDS: DUONEB 3 ML INH (20:15)
[2023-11-20 20:53] LABS: Glucose - Point of Care 165 mg/dl (70-99)
[2023-11-20] MEDS: FEOSOL 325 MG PO (21:00)
[2023-11-21] MEDS: DILAUDID 8 MG PO ×2 (00:22→18:48)
[2023-11-21] MEDS: ZOFRAN 4 MG IV ×3 (00:22→16:52)
[2023-11-21 00:26] VITALS: BP 114/76
[2023-11-21] MEDS: BENADRYL 25 MG IV ×7 (01:54→20:14)
[2023-11-21] MEDS: ATIVAN 2 MG SL ×5 (01:54→20:15)
--- NOTE | 2023-11-21 02:41 | PTCARENOTE ---
Through out the night Pt having multiple complaints of pain and 'about to have an episode'. PRN medication given along with Emotional support. Assessment are and vitals as charted.
[2023-11-21 04:00] VITALS: BP 112/65
[2023-11-21] MEDS: SINEMET 25-100 1.5 TABLET TUBE ×2 (05:27→09:00)
[2023-11-21] MEDS: LIORESAL 10 MG TUBE ×3 (05:27→21:13)
[2023-11-21 08:00] VITALS: BP 125/82
[2023-11-21 08:10] LABS: Glucose - Point of Care 79 mg/dl (70-99)
[2023-11-21] MEDS: DUONEB 3 ML INH ×3 (08:30→16:39)
[2023-11-21] MEDS: PULMICORT 0.5 MG INH ×2 (08:30→19:28)
[2023-11-21] MEDS: NOVOLOG FLEXPEN-LOW RESISTANCE SC (08:35)
[2023-11-21] MEDS: NSS 1000 IV (08:40)
[2023-11-21] MEDS: NSS (PRESERVATIVE FREE) 6 ML IV ×2 (08:43→20:17)
[2023-11-21] MEDS: PEPCID 40 MG IV ×2 (08:44→20:17)
[2023-11-21] MEDS: LANTUS 0.1 UNITS SC (08:46)
[2023-11-21] MEDS: LOVENOX 100 MG SC ×2 (08:46→20:14)
[2023-11-21] MEDS: GASTROCROM 300 MG PO ×4 (08:47→21:13)
--- NOTE | 2023-11-21 08:47 | W.PN.HOSP.TC ---
Today's Communication/Plan
-
see bold
Assessment / Plan
Assessment / Plan
Impression:
Gram-negative bacteremia due to chronic infected PICC line.
Fever on admission with no evidence of sepsis (tachycardia likely fever mediated)
Conditions prior to admission:
1. Mast cell activation syndrome.
2. Chronic dystonic reaction.
3. Orthostatic hypotension with postural orthostatic and
tachycardia syndrome.
4. Dopa sensitive dystonia.
5. Steroid-induced diabetes.
6. Prior history of deep venous thrombosis and pulmonary embolism.
7. Chronic pain syndrome.
8. Migraine headaches.
9. Gastroesophageal reflux disease.
10. Benzodiazepine and opiate dependence.
11. Restless legs syndrome.
12. Insomnia.
13. History of vocal cord dysfunction.
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
15. Gastroparesis.
16. 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
17. 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
Plan:
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
PICC line removed and PICC line replaced on 09/23
Repeated blood cultures negative on 09/20 but no other cultures obtained
Finished cipro on 10/06/23 (was on 750mg BID)
GJ tube in place
Replaced by interventional radiology on 09/22
Replaced by interventional radiology 11/04 due to concern leakage
HX Recurrent Anaphylaxis / Mast Cell Flare Episodes on chronic steroids
Mast Cell Activation Syndrome
DOPA-Responsive Dystonia
-follows with Dr. Lizabeth Villanueva at [facility] hematology.
- Continue Ativan
�-cont Gleevac ,steroids
�--Levalbuterol as needed, to do her eyedrops
-Continue carbidopa levodopa
-prednisone continued
-Outpatient IV Benadryl drip at 15 milligram an hour upon presentation. As discussed with primary home performance laborer Dr. Mora plan is to slowly taper. Decreased Benadryl drip down to 9 mg an hour on 11/18.
dystonia/movement disorder-patient apparently has dystonic features with her mast cell activation syndrome. I could not find in literature as a routine clinical presentation but according to patient apparently this is very unusual feature which was
noted in few other patients . She was on IV Benadryl pump at 15 mg/h at home.
-baclofen continued
-sinemet continued
-episodes with vasovagal response when trying to have a BM - start standing miralax and colace BID
Chronic pain syndrome-on high doses of narcotics (chronic opioid use with dependence) including p.o. Dilaudid and Suboxone at home. Again unclear the source of her pain.
GERD
-famotidine continued
-acipHex continued
-simethicone continued
iron def anemia
-ferrous sulfate continued
hxt of tachycardia
-EKG with sinus tachycardia
-propranolol continued
Chronic Nausea / Esophageal Dysmotility/gastroparesis
History GJ tube
�- Continue diet as tolerated.
�- Continue G-tube to gravity for chronic nausea.
�- Meds via J-tube.
-Zofran every 8 hours as needed
-Continue Pepcid
-emend continued
- PEG tube site without any signs of cellulitis. CT of the abdomen pelvis shows no subcutaneous collection around the PEG tube and it is in place.
Acute fractures of the left 6 anterolateral 6th and 7th ribs
-Suspect from recent fall on 10/03
-10/25 complains of pain on the posterolateral lower ribs
-Continue lidocaine patch, add heating packs
Steroid-Induced DM-II--
She remains on steady dose of prednisone
Blood glucose remains marginal
Monitor oral intake
Reduce Lantus and NovoLog AC
Continue serial Accu-Cheks with basal bolus protocol.
S/p fall overnight 10/03-10/04
imaging negative for bleed or fracture
Steroid-Induced Osteoporosis
Chronic Pain Syndrome secondary to the above on chronic opiates
�- Continue buprenorphine 2 mg 4 times daily , Dilaudid 8 mg as needed
�- PT / OT evaluations.
�- Follow-up with usual pipe recovery specialist after discharge.
allergy induced asthma
chronic hypoxic respiratory failure--on O2
-albuterol continued
-budesonide continued
-cetirizine continued
-cromolyn continued
Thrush
Started clotrimazole Troches for thrush 11/08
Migraine Hx
ODT Nurtec as needed
Restless leg syndrome
-Continue baclofen
History of DVT/PE
#Takes subcu Lovenox 100 mg twice daily
DNR on admission
Disposition: Discussion with primary home performance laborer Dr. Ethan Villanueva on 10/09. Discussed possibility of attempting weaning Benadryl drip likely could be done as outpatient. With current family social situation, unfortunately there is no options
for disposition other than home on IV infusion. Possibility of a transfer to [facility] discussed as well, although according to Dr. Villanueva hospital administration declined services due to complexity. Also discussed possibility of
transfer to tertiary center ([facility] declined in the past).
10/[address] Villanueva over the phone as well as [facility] transfer center.
Complex patient. Attempt to wean off Benadryl drip over the last 2 weeks with persistent dystonic episodes
While patient is relatively stable with her current condition, given complex clinical picture requiring multi disciplinary approach not limited to medicine, hematology, allergology, as well as neuropsychiatric assessment, patient would be better
served at a tertiary facility. Patient was accepted to [facility] for transfer, but hospital administration denied her transfer due to complexity (discussed with patient who is aware)
Physical Exam
General: Obese, no acute distress
HEENT: Normocephalic, Atraumatic, EOMI, MMM
Respiratory: Clear to Auscultation bilaterally
Cardiac: Normal S1/S2, Regular Rate and Rhythm
GI: Soft, +GJ tube, Nontender, Nondistended, Normal Bowel Sounds
MSK: Tenderness to palpation of the left posterolateral lateral ribs
Extremities: No Clubbing, Cyanosis, or Edema
Neuro: Nonfocal/Grossly Intact
Anticipated Discharge: > 48 hours
Subjective/Interval History
-
Date of Service: November 21, 2023
Patient had a severe dystonic reaction/episode yesterday evening. She required additional IV Ativan and IV Benadryl. She feels better this morning.
Objective Data
-
Vital Signs:
Vital Signs
Temp Pulse Resp BP Pulse Ox
98.0 F 101 20 112/65 98
11/21/23 07:24 11/21/23 08:36 11/21/23 08:36 11/21/23 04:00 11/21/23 08:36
I&O
11/20/23 11/21/23 11/22/23
06:59 06:59 06:59
Intake Total 1308 / 1308 968 / 968
Output Total 2300 / 2300 2600 / 2600
Balance -992 / -992 -1632 / -1632
[2023-11-21] MEDS: COLACE PO ×2 (08:49→20:10)
[2023-11-21] MEDS: VITAMIN B1 100 MG TUBE (08:49)
[2023-11-21] MEDS: MIRALAX PO (08:49)
[2023-11-21] MEDS: MYCELEX TROCHE 10 MG PO ×5 (08:50→21:13)
[2023-11-21] MEDS: INDERAL 10 MG TUBE ×3 (08:50→21:13)
[2023-11-21] MEDS: DELTASONE 10 MG TUBE ×2 (08:50→20:15)
[2023-11-21] MEDS: CLARITIN 10 MG PO (08:50)
[2023-11-21] MEDS: HYDREA 500 MG PO ×2 (08:51→20:15)
[2023-11-21] MEDS: LIDOCAINE 4% PATCH 1 PATCH TOPICAL (08:51)
[2023-11-21] MEDS: SUBUTEX 2 MG SL ×4 (08:51→21:13)
[2023-11-21] MEDS: NON-FORMULARY ITEM 80 MG PO (08:54)
[2023-11-21] MEDS: DESENEX/MITRAZOL/ZEASORB 1 APPLIC TOPICAL ×2 (08:55→20:15)
[2023-11-21] MEDS: NON-FORMULARY ITEM 1 MG PO ×2 (08:55→20:16)
[2023-11-21] MEDS: NON-FORMULARY ITEM 1 UNIT PO ×2 (08:56→20:17)
[2023-11-21] MEDS: NON-FORMULARY ITEM NASAL (08:56)
[2023-11-21] MEDS: ZADITOR 1 DROP BOTH EYES ×2 (08:57→20:17)
[2023-11-21] MEDS: NOVOLOG FLEXPEN 3 UNITS SC ×3 (09:17→18:48)
[2023-11-21] MEDS: ADRENALIN 0.3 MG IM ×2 (11:20→16:52)
[2023-11-21] MEDS: NSS (PRESERVATIVE FREE) 0.5 ML IV ×2 (11:40→17:32)
[2023-11-21] MEDS: ATIVAN 1 MG IV ×2 (11:41→17:32)
[2023-11-21 12:00] VITALS: BP 105/87
--- NOTE | 2023-11-21 12:16 | PTCARENOTE ---
Addendum entered by Kareem Nunez RN 11/21/23 19:13:
Patient had 2nd episode, same course, requiring same meds as first episode. MD Do aware. Continuing to monitor.
Original Note:
Patient with 1 dystonia episode lasting from [id number]. See mar for PRNs given. MD aware. Continuing to monitor.
[2023-11-21 12:26] LABS: Glucose - Point of Care 161 mg/dl (70-99)
[2023-11-21] MEDS: SINEMET 25-100 2 TABLET TUBE ×2 (13:09→18:46)
[2023-11-21] MEDS: NOVOLOG FLEXPEN-LOW RESISTANCE 1 UNITS SC ×2 (13:10→18:51)
[2023-11-21] MEDS: NON-FORMULARY ITEM 200 MG PO (13:11)
[2023-11-21 16:00] VITALS: BP 107/83
[2023-11-21] MEDS: BENADRYL 250 MG IV (16:24)
[2023-11-21] MEDS: ZYRTEC 10 MG TUBE ×2 (18:47→21:13)
[2023-11-21 20:00] VITALS: BP 118/85
[2023-11-21] MEDS: FEOSOL 325 MG PO (21:13)
[2023-11-21 22:47] LABS: Glucose - Point of Care 154 mg/dl (70-99)
[2023-11-22] VITALS: BP 120/76
[2023-11-22] MEDS: ZOFRAN 4 MG IV ×4 (00:16→23:48)
[2023-11-22] MEDS: ATIVAN 2 MG SL ×6 (00:16→22:07)
[2023-11-22] MEDS: BENADRYL 25 MG IV ×7 (00:17→22:07)
--- NOTE | 2023-11-22 01:51 | PTCARENOTE ---
assumed care of patient, pt given PRN meds as available, pt with complaints of nausea as well- PRN zofran given. pt intermittently sleeping without issues.
[2023-11-22 04:01] VITALS: BP 93/61
[2023-11-22] MEDS: LIORESAL 10 MG TUBE ×3 (05:36→22:07)
[2023-11-22] MEDS: SINEMET 25-100 1.5 TABLET TUBE ×2 (05:36→08:50)
[2023-11-22 08:00] VITALS: BP 120/81
--- NOTE | 2023-11-22 08:07 | W.PN.HOSP.TC ---
Today's Communication/Plan
-
see bold
Assessment / Plan
Assessment / Plan
Impression:
Gram-negative bacteremia due to chronic infected PICC line.
Fever on admission with no evidence of sepsis (tachycardia likely fever mediated)
Conditions prior to admission:
1. Mast cell activation syndrome.
2. Chronic dystonic reaction.
3. Orthostatic hypotension with postural orthostatic and
tachycardia syndrome.
4. Dopa sensitive dystonia.
5. Steroid-induced diabetes.
6. Prior history of deep venous thrombosis and pulmonary embolism.
7. Chronic pain syndrome.
8. Migraine headaches.
9. Gastroesophageal reflux disease.
10. Benzodiazepine and opiate dependence.
11. Restless legs syndrome.
12. Insomnia.
13. History of vocal cord dysfunction.
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
15. Gastroparesis.
16. 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
17. 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
Plan:
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
PICC line removed and PICC line replaced on 09/23
Repeated blood cultures negative on 09/20 but no other cultures obtained
Finished cipro on 10/06/23 (was on 750mg BID)
GJ tube in place
Replaced by interventional radiology on 09/22
Replaced by interventional radiology 11/04 due to concern leakage
HX Recurrent Anaphylaxis / Mast Cell Flare Episodes on chronic steroids
Mast Cell Activation Syndrome
DOPA-Responsive Dystonia
-follows with Dr. Lizabeth Villanueva at [facility] hematology.
- Continue Ativan
�-cont Gleevac ,steroids
�--Levalbuterol as needed, to do her eyedrops
-Continue carbidopa levodopa
-prednisone continued
-Outpatient IV Benadryl drip at 15 milligram an hour upon presentation. As discussed with primary environmental specialist Dr. Mora plan is to slowly taper. Decreased Benadryl drip down to 9 mg an hour on 11/18.
dystonia/movement disorder-patient apparently has dystonic features with her mast cell activation syndrome. I could not find in literature as a routine clinical presentation but according to patient apparently this is very unusual feature which was
noted in few other patients . She was on IV Benadryl pump at 15 mg/h at home.
-baclofen continued
-sinemet continued
-episodes with vasovagal response when trying to have a BM - start standing miralax and colace BID
Chronic pain syndrome-on high doses of narcotics (chronic opioid use with dependence) including p.o. Dilaudid and Suboxone at home. Again unclear the source of her pain.
GERD
-famotidine continued
-acipHex continued
-simethicone continued
iron def anemia
-ferrous sulfate continued
hxt of tachycardia
-EKG with sinus tachycardia
-propranolol continued
Chronic Nausea / Esophageal Dysmotility/gastroparesis
History GJ tube
�- Continue diet as tolerated.
�- Continue G-tube to gravity for chronic nausea.
�- Meds via J-tube.
-Zofran every 8 hours as needed
-Continue Pepcid
-emend continued
- PEG tube site without any signs of cellulitis. CT of the abdomen pelvis shows no subcutaneous collection around the PEG tube and it is in place.
Acute fractures of the left 6 anterolateral 6th and 7th ribs
-Suspect from recent fall on 10/03
-10/25 complains of pain on the posterolateral lower ribs
-Continue lidocaine patch, add heating packs
Steroid-Induced DM-II--
She remains on steady dose of prednisone
Blood glucose remains marginal
Monitor oral intake
Reduce Lantus and NovoLog AC
Continue serial Accu-Cheks with basal bolus protocol.
S/p fall overnight 10/03-10/04
imaging negative for bleed or fracture
Steroid-Induced Osteoporosis
Chronic Pain Syndrome secondary to the above on chronic opiates
�- Continue buprenorphine 2 mg 4 times daily , Dilaudid 8 mg as needed
�- PT / OT evaluations.
�- Follow-up with usual prescription benefit specialist after discharge.
allergy induced asthma
chronic hypoxic respiratory failure--on O2
-albuterol continued
-budesonide continued
-cetirizine continued
-cromolyn continued
Thrush
Started clotrimazole Troches for thrush 11/08
Migraine Hx
ODT Nurtec as needed
Restless leg syndrome
-Continue baclofen
History of DVT/PE
#Takes subcu Lovenox 100 mg twice daily
DNR on admission
Disposition: Discussion with primary environmental specialist Dr. Ethan Villanueva on 10/09. Discussed possibility of attempting weaning Benadryl drip likely could be done as outpatient. With current family social situation, unfortunately there is no options
for disposition other than home on IV infusion. Possibility of a transfer to [facility] discussed as well, although according to Dr. Villanueva hospital administration declined services due to complexity. Also discussed possibility of
transfer to tertiary center ([facility] declined in the past).
10/[address] Villanueva over the phone as well as [facility] transfer center.
Complex patient. Attempt to wean off Benadryl drip over the last 2 weeks with persistent dystonic episodes
While patient is relatively stable with her current condition, given complex clinical picture requiring multi disciplinary approach not limited to medicine, hematology, allergology, as well as neuropsychiatric assessment, patient would be better
served at a tertiary facility. Patient was accepted to [facility] for transfer, but hospital administration denied her transfer due to complexity (discussed with patient who is aware)
Total time spent to see the patient on the floor, examine the patient, review data and lab results, discuss treatment plan with patient, nursing staff around 35 minutes.
Physical Exam
General: Obese, no acute distress
HEENT: Normocephalic, Atraumatic, EOMI, MMM
Respiratory: Clear to Auscultation bilaterally
Cardiac: Normal S1/S2, Regular Rate and Rhythm
GI: Soft, +GJ tube, Nontender, Nondistended, Normal Bowel Sounds
MSK: Tenderness to palpation of the left posterolateral lateral ribs
Extremities: No Clubbing, Cyanosis, or Edema
Neuro: Nonfocal/Grossly Intact
Anticipated Discharge: > 48 hours
Subjective/Interval History
-
Date of Service: November 22, 2023
Continues to have dystonic reactions. No fever.
Objective Data
-
Vital Signs:
Vital Signs
Temp Pulse Resp BP Pulse Ox
98.1 F 85 14 93/61 99
11/22/23 03:23 11/22/23 06:00 11/22/23 06:00 11/22/23 04:01 11/22/23 06:00
I&O
11/21/23 11/22/23 11/23/23
06:59 06:59 06:59
Intake Total 968 / 968
Output Total 2600 / 2600 2950 / 2950
Balance -1632 / -1632 -2950 / -2950
[2023-11-22 08:14] LABS: Glucose - Point of Care 87 mg/dl (70-99)
[2023-11-22] MEDS: NSS 1000 IV (08:46)
[2023-11-22] MEDS: INDERAL 10 MG TUBE ×3 (08:49→22:07)
[2023-11-22] MEDS: PULMICORT 0.5 MG INH ×2 (08:51→17:24)
[2023-11-22] MEDS: MYCELEX TROCHE 10 MG PO ×4 (08:51→22:07)
[2023-11-22] MEDS: GASTROCROM 300 MG PO ×4 (08:51→22:07)
[2023-11-22] MEDS: PEPCID 40 MG IV ×2 (08:52→19:16)
[2023-11-22] MEDS: NSS (PRESERVATIVE FREE) 6 ML IV ×2 (08:53→19:16)
[2023-11-22] MEDS: DELTASONE 10 MG TUBE ×2 (08:56→19:15)
[2023-11-22] MEDS: LOVENOX 100 MG SC ×2 (08:57→19:16)
[2023-11-22] MEDS: SUBUTEX 2 MG SL ×4 (08:57→22:06)
[2023-11-22] MEDS: CLARITIN 10 MG TUBE (08:58)
[2023-11-22] MEDS: HYDREA 500 MG PO ×2 (08:58→19:15)
[2023-11-22] MEDS: VITAMIN B1 100 MG TUBE (08:58)
[2023-11-22] MEDS: NON-FORMULARY ITEM 80 MG PO (08:59)
[2023-11-22] MEDS: ZADITOR 1 DROP BOTH EYES ×2 (08:59→19:17)
[2023-11-22] MEDS: NON-FORMULARY ITEM 1 MG PO ×2 (09:00→19:15)
[2023-11-22] MEDS: NON-FORMULARY ITEM 1 UNIT PO ×2 (09:01→19:15)
[2023-11-22] MEDS: LIDOCAINE 4% PATCH 1 PATCH TOPICAL (09:02)
[2023-11-22] MEDS: LANTUS 0.1 UNITS SC (09:02)
[2023-11-22] MEDS: COLACE 100 MG PO ×2 (09:02→19:15)
[2023-11-22] MEDS: MIRALAX 17 GRAMS TUBE (09:02)
[2023-11-22] MEDS: NON-FORMULARY ITEM NASAL (09:03)
[2023-11-22] MEDS: DESENEX/MITRAZOL/ZEASORB 1 APPLIC TOPICAL ×2 (09:04→19:15)
[2023-11-22] MEDS: NOVOLOG FLEXPEN-LOW RESISTANCE SC ×2 (09:04→13:05)
[2023-11-22] MEDS: NOVOLOG FLEXPEN 3 UNITS SC ×3 (09:04→17:57)
[2023-11-22 13:03] LABS: Glucose - Point of Care 120 mg/dl (70-99)
[2023-11-22] MEDS: SINEMET 25-100 2 TABLET TUBE ×2 (13:30→17:58)
[2023-11-22] MEDS: NON-FORMULARY ITEM 200 MG PO (13:34)
[2023-11-22 17:04] LABS: Glucose - Point of Care 193 mg/dl (70-99)
[2023-11-22] MEDS: NSS (PRESERVATIVE FREE) 0.5 ML IV (17:08)
[2023-11-22] MEDS: ATIVAN 1 MG IV ×2 (17:08→20:53)
[2023-11-22] MEDS: DUONEB 3 ML INH (17:18)
[2023-11-22] MEDS: ADRENALIN 0.3 MG IM ×2 (17:40→20:54)
[2023-11-22] MEDS: NOVOLOG FLEXPEN-LOW RESISTANCE 1 UNITS SC (17:56)
[2023-11-22] MEDS: ZYRTEC 10 MG TUBE ×2 (17:58→22:07)
[2023-11-22] MEDS: DILAUDID 8 MG PO (18:01)
[2023-11-22] MEDS: BENADRYL 250 MG IV (18:05)
--- NOTE | 2023-11-22 18:47 | PTCARENOTE ---
pt w/ dystonia episode requiring IV ativan, SL ativan, PRN benadryl, PRN IM EPI. as well as PRN dilaudid for pain caused by dystonia. Pt requesting NRB. SpO2 remained above 92% throughout entire episode. Pt provided fan and ice packs in an attempt
to be more comfortable. Neck pillow provided to pt for comfort. emotional support provided. Episode lasted approximately 90minutes, improving significantly.
[2023-11-22] MEDS: MYCELEX TROCHE PO (19:02)
[2023-11-22 19:09] VITALS: BP 108/75
[2023-11-22 20:00] VITALS: BP 117/86
[2023-11-22] MEDS: NSS (PRESERVATIVE FREE) 10 ML IV (20:54)
--- NOTE | 2023-11-22 21:11 | PTCARENOTE ---
pt rang call sanchez, pt having dystonia episode- IV ativan and IM epi given. episode lasted about 15 minutes. non-rebreather applied for comfort. pt sleeping after episode.
[2023-11-22] MEDS: FEOSOL 325 MG PO (22:06)
[2023-11-22 22:41] LABS: Glucose - Point of Care 191 mg/dl (70-99)
[2023-11-22] MEDS: MYLICON 80 MG PO (23:05)
[2023-11-23] VITALS: BP 122/75
[2023-11-23] MEDS: BENADRYL 25 MG IV ×8 (02:07→20:47)
[2023-11-23] MEDS: ATIVAN 2 MG SL ×5 (02:07→20:47)
[2023-11-23] MEDS: ADRENALIN 0.3 MG IM ×2 (02:22→02:47)
--- NOTE | 2023-11-23 02:40 | PTCARENOTE ---
pt with another dystonia episode- PRN meds given, epi given x1- episode lasting around 40 minutes.
[2023-11-23] MEDS: ATIVAN 1 MG IV ×2 (03:19→16:52)
--- NOTE | 2023-11-23 03:25 | PTCARENOTE ---
Addendum entered by Nick Puga RN 11/23/23 04:07:
attack lasted about 60 minutes.
Original Note:
pt with another dystonia attack- all PRN meds given, epi given x2 with no effect. pt verbalized to this RN that she needed more meds. notified covering CRM MANAGER- orders entered for STAT IV benadryl and IV ativan given. within a few seconds of IV meds
being given dystonia attack subsided. pt crying stating that she is tired of this and does not what to be here anymore. positive environment maintained. pt cleaned up after attack.
[2023-11-23 04:01] VITALS: BP 120/71
[2023-11-23] MEDS: LIORESAL 10 MG TUBE ×3 (05:20→20:47)
[2023-11-23] MEDS: SINEMET 25-100 1.5 TABLET TUBE ×2 (05:20→09:49)
[2023-11-23] MEDS: ZOFRAN 4 MG IV ×3 (06:09→23:45)
[2023-11-23 08:00] VITALS: BP 89/50
--- NOTE | 2023-11-23 08:37 | W.PN.HOSP.TC ---
Today's Communication/Plan
-
see bold
Assessment / Plan
Assessment / Plan
Impression:
Gram-negative bacteremia due to chronic infected PICC line.
Fever on admission with no evidence of sepsis (tachycardia likely fever mediated)
Conditions prior to admission:
1. Mast cell activation syndrome.
2. Chronic dystonic reaction.
3. Orthostatic hypotension with postural orthostatic and
tachycardia syndrome.
4. Dopa sensitive dystonia.
5. Steroid-induced diabetes.
6. Prior history of deep venous thrombosis and pulmonary embolism.
7. Chronic pain syndrome.
8. Migraine headaches.
9. Gastroesophageal reflux disease.
10. Benzodiazepine and opiate dependence.
11. Restless legs syndrome.
12. Insomnia.
13. History of vocal cord dysfunction.
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
15. Gastroparesis.
16. 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
17. 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
Plan:
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
PICC line removed and PICC line replaced on 09/23
Repeated blood cultures negative on 09/20 but no other cultures obtained
Finished cipro on 10/06/23 (was on 750mg BID)
GJ tube in place
Replaced by interventional radiology on 09/22
Replaced by interventional radiology 11/04 due to concern leakage
HX Recurrent Anaphylaxis / Mast Cell Flare Episodes on chronic steroids
Mast Cell Activation Syndrome
DOPA-Responsive Dystonia
-follows with Dr. Lizabeth Villanueva at [facility] hematology.
- Continue Ativan
�-cont Gleevac ,steroids
�--Levalbuterol as needed, to do her eyedrops
-Continue carbidopa levodopa
-prednisone continued
-Outpatient IV Benadryl drip at 15 milligram an hour upon presentation. As discussed with primary leader assembler Dr. Mora plan is to slowly taper. Decreased Benadryl drip down to 9 mg an hour on 11/18.
dystonia/movement disorder-patient apparently has dystonic features with her mast cell activation syndrome. I could not find in literature as a routine clinical presentation but according to patient apparently this is very unusual feature which was
noted in few other patients . She was on IV Benadryl pump at 15 mg/h at home.
-baclofen continued
-sinemet continued
-episodes with vasovagal response when trying to have a BM - start standing miralax and colace BID
Chronic pain syndrome-on high doses of narcotics (chronic opioid use with dependence) including p.o. Dilaudid and Suboxone at home. Again unclear the source of her pain.
GERD
-famotidine continued
-acipHex continued
-simethicone continued
iron def anemia
-ferrous sulfate continued
hxt of tachycardia
-EKG with sinus tachycardia
-propranolol continued
Chronic Nausea / Esophageal Dysmotility/gastroparesis
History GJ tube
�- Continue diet as tolerated.
�- Continue G-tube to gravity for chronic nausea.
�- Meds via J-tube.
-Zofran every 8 hours as needed
-Continue Pepcid
-emend continued
- PEG tube site without any signs of cellulitis. CT of the abdomen pelvis shows no subcutaneous collection around the PEG tube and it is in place.
Acute fractures of the left 6 anterolateral 6th and 7th ribs
-Suspect from recent fall on 10/03
-10/25 complains of pain on the posterolateral lower ribs
-Continue lidocaine patch, add heating packs
Steroid-Induced DM-II--
She remains on steady dose of prednisone
Blood glucose remains marginal
Monitor oral intake
Reduce Lantus and NovoLog AC
Continue serial Accu-Cheks with basal bolus protocol.
S/p fall overnight 10/03-10/04
imaging negative for bleed or fracture
Steroid-Induced Osteoporosis
Chronic Pain Syndrome secondary to the above on chronic opiates
�- Continue buprenorphine 2 mg 4 times daily , Dilaudid 8 mg as needed
�- PT / OT evaluations.
�- Follow-up with usual biomedical equipment support specialist after discharge.
allergy induced asthma
chronic hypoxic respiratory failure--on O2
-albuterol continued
-budesonide continued
-cetirizine continued
-cromolyn continued
Thrush
Completed course of clotrimazole Troches for thrush
Migraine Hx
ODT Nurtec as needed
Restless leg syndrome
-Continue baclofen
History of DVT/PE
#Takes subcu Lovenox 100 mg twice daily
DNR on admission
Disposition: Discussion with primary leader assembler Dr. Ethan Villanueva on 10/09. Discussed possibility of attempting weaning Benadryl drip likely could be done as outpatient. With current family social situation, unfortunately there is no options
for disposition other than home on IV infusion. Possibility of a transfer to [facility] discussed as well, although according to Dr. Villanueva hospital administration declined services due to complexity. Also discussed possibility of
transfer to tertiary center ([facility] declined in the past).
10/[address] Villanueva over the phone as well as [facility] transfer center.
Complex patient. Attempt to wean off Benadryl drip over the last 2 weeks with persistent dystonic episodes
While patient is relatively stable with her current condition, given complex clinical picture requiring multi disciplinary approach not limited to medicine, hematology, allergology, as well as neuropsychiatric assessment, patient would be better
served at a tertiary facility. Patient was accepted to [facility] for transfer, but hospital administration denied her transfer due to complexity (discussed with patient who is aware)
Total time spent to see the patient on the floor, examine the patient, review data and lab results, discuss treatment plan with patient, nursing staff around 39 minutes.
Physical Exam
General: Obese, no acute distress
HEENT: Normocephalic, Atraumatic, EOMI, MMM
Respiratory: Clear to Auscultation bilaterally
Cardiac: Normal S1/S2, Regular Rate and Rhythm
GI: Soft, +GJ tube, Nontender, Nondistended, Normal Bowel Sounds
MSK: Tenderness to palpation of the left posterolateral lateral ribs
Extremities: No Clubbing, Cyanosis, or Edema
Neuro: Nonfocal/Grossly Intact
Anticipated Discharge: > 48 hours
Subjective/Interval History
-
Date of Service: November 23, 2023
Patient continues to have dystonic reactions. No fever, no vomiting.
Objective Data
-
Vital Signs:
Vital Signs
Temp Pulse Resp BP Pulse Ox
98.1 F 91 14 120/71 97
11/23/23 03:57 11/23/23 04:01 11/23/23 04:01 11/23/23 04:01 11/23/23 04:01
I&O
11/22/23 11/23/23 11/24/23
06:59 06:59 06:59
Output Total 2950 / 2950 2099 / 2099
Balance -2950 / -2950 -2099 / -2099
[2023-11-23 08:42] LABS: Glucose - Point of Care 77 mg/dl (70-99)
[2023-11-23] MEDS: PULMICORT 0.5 MG INH ×2 (08:46→17:48)
[2023-11-23] MEDS: BENADRYL IV (08:55)
[2023-11-23] MEDS: NOVOLOG FLEXPEN-LOW RESISTANCE SC ×3 (08:56→17:27)
[2023-11-23] MEDS: NOVOLOG FLEXPEN SC ×3 (09:31→17:27)
[2023-11-23] MEDS: SUBUTEX 2 MG SL ×4 (09:47→20:46)
[2023-11-23] MEDS: GASTROCROM 300 MG PO ×4 (09:47→20:46)
[2023-11-23] MEDS: HYDREA 500 MG PO ×2 (09:48→19:33)
[2023-11-23] MEDS: DELTASONE 10 MG TUBE ×2 (09:48→19:33)
[2023-11-23] MEDS: CLARITIN 10 MG TUBE (09:50)
[2023-11-23] MEDS: VITAMIN B1 100 MG TUBE (09:50)
[2023-11-23] MEDS: DESENEX/MITRAZOL/ZEASORB 1 APPLIC TOPICAL ×2 (09:51→19:33)
[2023-11-23] MEDS: LIDOCAINE 4% PATCH 1 PATCH TOPICAL (09:52)
[2023-11-23] MEDS: COLACE 100 MG PO (09:52)
[2023-11-23] MEDS: MIRALAX 17 GRAMS TUBE (09:52)
[2023-11-23] MEDS: LOVENOX 100 MG SC ×2 (09:52→19:34)
[2023-11-23] MEDS: MYCELEX TROCHE 10 MG PO ×5 (09:53→20:46)
[2023-11-23] MEDS: INDERAL 10 MG TUBE ×3 (09:53→20:47)
[2023-11-23] MEDS: LANTUS 0.1 UNITS SC (09:53)
[2023-11-23] MEDS: NON-FORMULARY ITEM NASAL (09:54)
[2023-11-23] MEDS: NSS (PRESERVATIVE FREE) 6 ML IV ×2 (09:55→19:34)
[2023-11-23] MEDS: PEPCID 40 MG IV ×2 (09:55→19:35)
[2023-11-23] MEDS: ZADITOR 1 DROP BOTH EYES ×2 (09:56→19:35)
[2023-11-23] MEDS: NON-FORMULARY ITEM 1 UNIT PO ×3 (09:57→19:34)
[2023-11-23] MEDS: NON-FORMULARY ITEM 1 MG PO ×2 (09:58→19:34)
[2023-11-23] MEDS: NON-FORMULARY ITEM 80 MG PO (10:00)
[2023-11-23] MEDS: DILAUDID 8 MG PO (10:31)
[2023-11-23 12:00] VITALS: BP 101/75
[2023-11-23 12:00] LABS: Glucose - Point of Care 104 mg/dl (70-99)
--- NOTE | 2023-11-23 12:26 | PTCARENOTE ---
pt mother at bedside visiting.
[2023-11-23] MEDS: NON-FORMULARY ITEM 200 MG PO (12:38)
[2023-11-23] MEDS: SINEMET 25-100 2 TABLET TUBE ×2 (12:41→17:28)
--- NOTE | 2023-11-23 15:51 | PTCARENOTE ---
pt concerned about not having IVF infusing. Discussed w/ Dr. Willoughby; pt eating and drinking adequate amounts. Pt expressed concerned regarding her POTS protocol. VSS. Offered free water flushes through g tube. Pt expressed concerns regarding this not
being adequate and subsequently refused. Ativan and benadryl given as pt stated she felt a dystonia attack coming on.
--- NOTE | 2023-11-23 15:58 | CHAP ---
Mary is summoning her inner resources and finding strength to go forward. She remains optimistic about arranging an apartment and home care, and is facing issues in her life with maturity. Emotional and spiritual support provided.
[2023-11-23 16:00] VITALS: BP 118/80
[2023-11-23] MEDS: DUONEB 3 ML INH (16:48)
--- NOTE | 2023-11-23 17:14 | PTCARENOTE ---
Pt w/ dystonia episode. PRN medications provided. See MAR.
[2023-11-23 17:18] LABS: Glucose - Point of Care 136 mg/dl (70-99)
[2023-11-23] MEDS: ZYRTEC 10 MG TUBE ×2 (17:27→20:47)
--- NOTE | 2023-11-23 17:35 | W.PN.UPDATE ---
Update Note
Progress Note Update
Pt seen at bedside - is pleasant and conversant today. Mom visited earlier and visit went well, pt is trying to work on this relationship as stepfather is going to be helping with paying for her apartment and she wants to minimize discord. Pt
discussed some of her frustrations with family dynamics and difficulty of living with her illness.
It seems that they may have settled on a potential apartment, however still need to arrange for appropriate in-home nursing care.
Also expressed frustration about benadryl dose being decreased in IV drip, though seems amenable to try and work on finding 'lowest helpful dose'.
No changes indicated at this time from a psychiatric standpoint.
--- NOTE | 2023-11-23 18:34 | PTCARENOTE ---
dystonia episode resolved after PRN medications. Pt appearing comfortable in bed. Benadryl drip continues per MD order. Dinner tray at bedside. Pt refused dinner time insulin d/t glucose being 136 and having decreased appetite.
[2023-11-23] MEDS: COLACE PO (19:35)
[2023-11-23 20:00] VITALS: BP 157/105
[2023-11-23] MEDS: BENADRYL 250 MG IV (20:45)
[2023-11-23] MEDS: FEOSOL 325 MG PO (20:46)
[2023-11-23 21:38] LABS: Glucose - Point of Care 171 mg/dl (70-99)
[2023-11-24] VITALS (8 sets, daily range): BP systolic 109–122; BP diastolic 74–91; PULSE 105; O2SAT 91
[2023-11-24] MEDS: BENADRYL 25 MG IV ×7 (00:51→22:30)
[2023-11-24] MEDS: ATIVAN 2 MG SL ×5 (00:51→20:14)
--- NOTE | 2023-11-24 02:15 | PTCARENOTE ---
pt found to have vomited into blue emesis bag- requesting IV zofran and PRN meds when able. pt sleeping on and off.
[2023-11-24] MEDS: SINEMET 25-100 1.5 TABLET TUBE ×2 (05:05→09:44)
[2023-11-24] MEDS: LIORESAL 10 MG TUBE ×3 (05:05→21:29)
[2023-11-24] MEDS: DUONEB 3 ML INH ×2 (07:25→17:30)
[2023-11-24] MEDS: PULMICORT 0.5 MG INH ×2 (07:25→19:31)
[2023-11-24 08:19] LABS: Glucose - Point of Care 93 mg/dl (70-99)
[2023-11-24] MEDS: GASTROCROM 300 MG PO ×4 (09:01→21:28)
[2023-11-24] MEDS: TYLENOL 650 MG PO (09:02)
[2023-11-24] MEDS: ZOFRAN 4 MG IV ×2 (09:02→17:25)
[2023-11-24] MEDS: PEPCID 40 MG IV ×2 (09:03→20:14)
[2023-11-24] MEDS: LOVENOX 100 MG SC ×2 (09:03→20:17)
[2023-11-24] MEDS: MYCELEX TROCHE 10 MG PO ×5 (09:04→20:21)
[2023-11-24] MEDS: NSS (PRESERVATIVE FREE) 6 ML IV ×2 (09:04→20:15)
[2023-11-24] MEDS: SUBUTEX 2 MG SL ×4 (09:04→20:21)
[2023-11-24] MEDS: HYDREA 500 MG PO ×2 (09:05→20:13)
[2023-11-24] MEDS: CLARITIN 10 MG TUBE (09:05)
[2023-11-24] MEDS: VITAMIN B1 100 MG TUBE (09:05)
[2023-11-24] MEDS: INDERAL 10 MG TUBE ×3 (09:05→21:28)
[2023-11-24] MEDS: DELTASONE 10 MG TUBE ×2 (09:05→20:13)
[2023-11-24] MEDS: LIDOCAINE 4% PATCH 1 PATCH TOPICAL (09:06)
[2023-11-24] MEDS: ZADITOR 1 DROP BOTH EYES ×2 (09:06→20:18)
[2023-11-24] MEDS: COLACE 100 MG PO (09:06)
[2023-11-24] MEDS: MIRALAX 17 GRAMS TUBE (09:06)
[2023-11-24] MEDS: DESENEX/MITRAZOL/ZEASORB 1 APPLIC TOPICAL ×2 (09:07→20:17)
[2023-11-24] MEDS: NON-FORMULARY ITEM 1 MG PO ×2 (09:08→20:16)
[2023-11-24] MEDS: NON-FORMULARY ITEM 1 UNIT PO ×2 (09:08→20:15)
[2023-11-24] MEDS: NON-FORMULARY ITEM 80 MG PO (09:10)
[2023-11-24] MEDS: NON-FORMULARY ITEM NASAL (09:12)
[2023-11-24] MEDS: NOVOLOG FLEXPEN 3 UNITS SC ×3 (09:37→17:48)
[2023-11-24] MEDS: NOVOLOG FLEXPEN-LOW RESISTANCE SC ×3 (09:37→17:50)
[2023-11-24] MEDS: LANTUS 0.1 UNITS SC (09:38)
[2023-11-24 12:33] LABS: Glucose - Point of Care 137 mg/dl (70-99)
[2023-11-24] MEDS: NSS 1000 IV (13:49)
[2023-11-24] MEDS: NON-FORMULARY ITEM 200 MG PO (13:51)
[2023-11-24] MEDS: SINEMET 25-100 2 TABLET TUBE ×2 (13:58→17:47)
--- NOTE | 2023-11-24 15:47 | CM ---
Call received from Bobby Ontiveros, patients Mother, asking for call back from Hospitalist, who I texted request to. Mother stated that her , Mary's Step Father is working closely with Mary and her biological Father to secure an apartment with
Mary. She stated the application process is very complex and may not likely be until sometime in December until they know for sure if she has been approved at [facility]. She stated Mary's CM thru [facility], Debby , is aware of
the plan and will be working getting approval to resume 24/7 PDN care once Apartment has been approved. She had questions in regards for need of oxygen and feeding tube, which I said she should discuss with her physician. She stated she is thankful
that psychiatry is seeing her again and also asked about PT. I made her aware that PT is seeing her 3 times a week currently. She said she is grateful for the care that she is being provided. She did say that she is still unable to take her home at
this time while they await the approval of an apartment but hopeful that they will be able to secure an apartment for her and have 24/7 care resume as she had prior to admission in her Mother's home. She said she visited Mary this week-end and said
Mary sounded positive and looking forward to the possibility of having an apartment. Update to CM and Hospitalist .
[2023-11-24] MEDS: ATIVAN 1 MG IV ×2 (17:20→22:06)
[2023-11-24] MEDS: ADRENALIN 0.3 MG IM ×2 (17:40→22:05)
[2023-11-24 17:46] LABS: Glucose - Point of Care 118 mg/dl (70-99)
[2023-11-24] MEDS: ZYRTEC 10 MG TUBE ×2 (17:47→21:29)
--- NOTE | 2023-11-24 18:01 | W.PN.HOSP.TC ---
Today's Communication/Plan
-
Continue IV Benadryl drip with attempt to wean off as patient tolerates.
Continue supportive care.
Disposition efforts.
Assessment / Plan
Assessment / Plan
Impression:
Gram-negative bacteremia due to chronic infected PICC line.
Fever on admission with no evidence of sepsis (tachycardia likely fever mediated)
Conditions prior to admission:
1. Mast cell activation syndrome.
2. Chronic dystonic reaction.
3. Orthostatic hypotension with postural orthostatic and
tachycardia syndrome.
4. Dopa sensitive dystonia.
5. Steroid-induced diabetes.
6. Prior history of deep venous thrombosis and pulmonary embolism.
7. Chronic pain syndrome.
8. Migraine headaches.
9. Gastroesophageal reflux disease.
10. Benzodiazepine and opiate dependence.
11. Restless legs syndrome.
12. Insomnia.
13. History of vocal cord dysfunction.
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
15. Gastroparesis.
16. 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
17. 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
Plan:
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
PICC line removed and PICC line replaced on 09/23
Repeated blood cultures negative on 09/20 but no other cultures obtained
Finished cipro on 10/06/23 (was on 750mg BID)
GJ tube in place
Replaced by interventional radiology on 09/22
Replaced by interventional radiology 11/04 due to concern leakage
HX Recurrent Anaphylaxis / Mast Cell Flare Episodes on chronic steroids
Mast Cell Activation Syndrome
DOPA-Responsive Dystonia
-follows with Dr. Lizabeth Villanueva at [facility] hematology.
- Continue Ativan
�-cont Gleevac ,steroids
�--Levalbuterol as needed, to do her eyedrops
-Continue carbidopa levodopa
-prednisone continued
-Outpatient IV Benadryl drip at 15 milligram an hour upon presentation. As discussed with primary computer network engineer Dr. Mora plan is to slowly taper. Decreased Benadryl drip down to 9 mg an hour on 11/18.
dystonia/movement disorder-patient apparently has dystonic features with her mast cell activation syndrome. I could not find in literature as a routine clinical presentation but according to patient apparently this is very unusual feature which was
noted in few other patients . She was on IV Benadryl pump at 15 mg/h at home.
-baclofen continued
-sinemet continued
-episodes with vasovagal response when trying to have a BM - start standing miralax and colace BID
Chronic pain syndrome-on high doses of narcotics (chronic opioid use with dependence) including p.o. Dilaudid and Suboxone at home. Again unclear the source of her pain.
GERD
-famotidine continued
-acipHex continued
-simethicone continued
iron def anemia
-ferrous sulfate continued
hxt of tachycardia
-EKG with sinus tachycardia
-propranolol continued
Chronic Nausea / Esophageal Dysmotility/gastroparesis
History GJ tube
�- Continue diet as tolerated.
�- Continue G-tube to gravity for chronic nausea.
�- Meds via J-tube.
-Zofran every 8 hours as needed
-Continue Pepcid
-emend continued
- PEG tube site without any signs of cellulitis. CT of the abdomen pelvis shows no subcutaneous collection around the PEG tube and it is in place.
Acute fractures of the left 6 anterolateral 6th and 7th ribs
-Suspect from recent fall on 10/03
-10/25 complains of pain on the posterolateral lower ribs
-Continue lidocaine patch, add heating packs
Steroid-Induced DM-II--
She remains on steady dose of prednisone
Blood glucose remains marginal
Monitor oral intake
Reduce Lantus and NovoLog AC
Continue serial Accu-Cheks with basal bolus protocol.
S/p fall overnight 10/03-10/04
imaging negative for bleed or fracture
Steroid-Induced Osteoporosis
Chronic Pain Syndrome secondary to the above on chronic opiates
�- Continue buprenorphine 2 mg 4 times daily , Dilaudid 8 mg as needed
�- PT / OT evaluations.
�- Follow-up with usual benefits specialist after discharge.
allergy induced asthma
chronic hypoxic respiratory failure--on O2
-albuterol continued
-budesonide continued
-cetirizine continued
-cromolyn continued
Thrush
Completed course of clotrimazole Troches for thrush
Migraine Hx
ODT Nurtec as needed
Restless leg syndrome
-Continue baclofen
History of DVT/PE
#Takes subcu Lovenox 100 mg twice daily
DNR on admission
Disposition: Discussion with primary computer network engineer Dr. Ethan Villanueva on 10/09. Discussed possibility of attempting weaning Benadryl drip likely could be done as outpatient. With current family social situation, unfortunately there is no options
for disposition other than home on IV infusion. Possibility of a transfer to [facility] discussed as well, although according to Dr. Villanueva hospital administration declined services due to complexity. Also discussed possibility of
transfer to tertiary center ([facility] declined in the past).
10/[address] Villanueva over the phone as well as [facility] transfer center.
Complex patient. Attempt to wean off Benadryl drip over the last 2 weeks with persistent dystonic episodes
While patient is relatively stable with her current condition, given complex clinical picture requiring multi disciplinary approach not limited to medicine, hematology, allergology, as well as neuropsychiatric assessment, patient would be better
served at a tertiary facility. Patient was accepted to [facility] for transfer, but hospital administration denied her transfer due to complexity (discussed with patient who is aware)
Total time spent to see the patient on the floor, examine the patient, review data and lab results, discuss treatment plan with patient, nursing staff around 39 minutes.
Anticipated Discharge: > 48 hours
Subjective/Interval History
-
Date of Service: November 24, 2023
Objective Data
-
Vital Signs:
Vital Signs
Temp Pulse Resp BP Pulse Ox
97.9 F 130 16 121/74 99
11/24/23 15:31 11/24/23 17:34 11/24/23 17:34 11/24/23 08:00 11/24/23 17:34
I&O
11/23/23 11/24/23 11/25/23
06:59 06:59 06:59
Intake Total 1420 / 1420
Output Total 2100 / 2100 1600 / 1600 2200 / 2200
Balance -2100 / -2100 -1600 / -1600 -780 / -780
Physical Exam
-
General: Well Developed and No Apparent Distress
HEENT: Normocephalic, Atraumatic and Moist Mucous Membranes
Respiratory: Clear to Auscultation
Cardiac: Regular Rhythm and S1/S2; Negative Murmur, Rub or Gallop
GI: Soft, Nontender, Nondistended and Normal Bowel Sounds; Negative Organomegaly
Rectal: Deferred by Provider
Musculoskeletal: No Clubbing, No Cyanosis and No Edema
Skin: Negative Rash
Neuro: Nonfocal/Grossly Intact
--- NOTE | 2023-11-24 19:44 | PTCARENOTE ---
assumed care of pt at 1500. at 1715 pt oob to commode to have bm and reported feeling dystonic episode beginning. returned pt to bed. prn meds administered as ordered and neb given by RT. o2 sats remained stable on 1 liter o2. sinus tachy during
episode. pt with rigid muscles, diaphoresis. episode resolved afte rabout 20 minutes. otherwise physical assessment unchanged as documented this am. report given to recieving rn.
[2023-11-24] MEDS: COLACE PO (20:11)
--- NOTE | 2023-11-24 20:59 | PTCARENOTE ---
Vitals captured for the time period 6974-7279, cannot verify accuracy of vitals before 1845 as this was from previous shift.
--- NOTE | 2023-11-24 21:00 | PTCARENOTE ---
Addendum entered by Linda Davis RN 11/24/23 21:19:
correction, pt not on RA, she is on 1LNC
Original Note:
Assumed care of pt at 1900. Pt is A/O x4, has been pleasant and cooperative with care. Able to make needs known, requested PRN SL Ativan and PRN benadryl to be given whenever she can have them as this helped her the night before to be able to sleep,
see EMAR for details. Benadryl drip infusing at 9mg/hr. Pt requested her pills to be given orally instead of through J tube. SR 80s on monitor, SpO2 96% on RA. No c/o pain or nausea at this time. See nursing shift assessment flowsheet for full
physical assessment details. Pt set up to brush her teeth and bathe herself, stated she will call when she is done, requesting linens to be changed when she is finished bathing. Call sanchez and personal items within reach.
[2023-11-24] MEDS: BENADRYL 250 MG IV (21:28)
[2023-11-24] MEDS: FEOSOL 325 MG PO (21:28)
[2023-11-24 23:10] LABS: Glucose - Point of Care 123 mg/dl (70-99)
--- NOTE | 2023-11-24 23:42 | PTCARENOTE ---
Pt finished bathing herself at around 2200. Sheets and gown changed, new purewick placed as well. Warm blankets given to patient as she was starting to shiver since the wipes had turned cold. Pt stated 'I hope this doesn't turn into an episode'. Pt
then asking for hot water for tea...upon bringing water back to room, pt was having one of her 'episodes' where she was shaking and rigid with arms curled up to her chest and scrunching up her face. PRN meds given, see EMAR. Episode resolved with
meds and pt relaxed again. Pt now resting in bed coloring and denies any complaints.
[2023-11-25] VITALS: BP 107/76
[2023-11-25] MEDS: NSS 1000 IV ×2 (01:54→14:03)
[2023-11-25] MEDS: ATIVAN 2 MG SL ×5 (02:51→22:08)
[2023-11-25] MEDS: BENADRYL 25 MG IV ×6 (02:52→22:09)
[2023-11-25 04:00] VITALS: BP 96/61
[2023-11-25] MEDS: SINEMET 25-100 1.5 TABLET TUBE ×2 (06:06→08:47)
[2023-11-25] MEDS: LIORESAL 10 MG TUBE ×3 (06:06→22:07)
[2023-11-25] MEDS: PULMICORT 0.5 MG INH (07:20)
[2023-11-25 07:58] LABS: Glucose - Point of Care 98 mg/dl (70-99)
[2023-11-25 08:00] VITALS: BP 104/76
[2023-11-25] MEDS: NOVOLOG FLEXPEN-LOW RESISTANCE SC ×3 (08:01→17:18)
[2023-11-25] MEDS: SUBUTEX 2 MG SL ×4 (08:20→22:07)
[2023-11-25] MEDS: INDERAL 10 MG TUBE ×3 (08:20→22:08)
[2023-11-25] MEDS: LIDOCAINE 4% PATCH 1 PATCH TOPICAL (08:21)
[2023-11-25] MEDS: COLACE PO ×2 (08:21→20:03)
[2023-11-25] MEDS: MIRALAX TUBE (08:21)
[2023-11-25] MEDS: CLARITIN 10 MG TUBE (08:22)
[2023-11-25] MEDS: HYDREA 500 MG PO ×2 (08:22→19:54)
[2023-11-25] MEDS: MYCELEX TROCHE 10 MG PO ×5 (08:22→22:08)
[2023-11-25] MEDS: VITAMIN B1 100 MG TUBE (08:22)
[2023-11-25] MEDS: DELTASONE 10 MG TUBE ×2 (08:23→19:55)
[2023-11-25] MEDS: PEPCID 40 MG IV ×2 (08:24→19:55)
[2023-11-25] MEDS: NSS (PRESERVATIVE FREE) 6 ML IV ×2 (08:25→19:55)
[2023-11-25] MEDS: LOVENOX 100 MG SC ×2 (08:28→19:54)
[2023-11-25] MEDS: GASTROCROM 300 MG PO ×4 (08:29→22:10)
[2023-11-25] MEDS: NON-FORMULARY ITEM 1 MG PO ×3 (08:31→19:57)
[2023-11-25] MEDS: NON-FORMULARY ITEM 1 UNIT PO ×2 (08:32→19:58)
[2023-11-25] MEDS: NOVOLOG FLEXPEN 3 UNITS SC ×3 (08:34→17:17)
[2023-11-25] MEDS: DESENEX/MITRAZOL/ZEASORB 1 APPLIC TOPICAL ×2 (08:34→20:04)
[2023-11-25] MEDS: ZADITOR 1 DROP BOTH EYES ×2 (08:36→20:01)
[2023-11-25] MEDS: LANTUS 0.1 UNITS SC (08:41)
--- NOTE | 2023-11-25 08:45 | PTCARENOTE ---
Pt AAOx3 pleasant and conversant. 1 Liter O2 lungs are clear, pt in SR. G/J tube in place. G tube to gravity, J tube for meds. Benadryl gtt at 9 mg/hr. NSS at 80 hr.
--- NOTE | 2023-11-25 09:51 | CM ---
Addendum entered by Luci Garcia RN 11/25/23 11:32:
TT message from [facility]; the patient was approved for disability in October 2023. She is not working on housing for the patient.
Original Note:
Patient with Hx Mast Cell Activation Syndrome, dystonia/movement disorder, chronic pain syndrome, gastroparesis with Dx Gram-negative bacteremia due to chronic infected PICC line. O2 1L. Receiving IVF, IV Benadyl drip with slow taper/weaning, IV &
SL Ativan prn. PICC line. GJ tube in place. Seen by Psych. PT recommends HH. OT recommends skilled vs home.
Phone call to Roslyn Ferreira, Civil Engineer In [employer] [facility] [employer] ([place] [phone]); left message requesting callback to discuss resumption of caregiver services for this patient when her housing becomes available.
As per prior CM notes, the patient's family is working on the application process to secure housing for the patient at [facility] and the outcome of the request may be known in December.
If patient remains on IV Benadryl or IV Ativan at d/c, CM will need to contact [facility] ([place] [phone]) re; delivery of IV meds to the hospital bedside, once patient is ready for d/c to home.
Additional contacts:
Kleber ESPINAL
Deep, hydraulic bull riveter operator Cricket Ca (ph [phone], cell [phone]), [facility] coordinator Cookie [phone]
[facility]; she is working on disability paperwork
Leni Horan [facility] outreach service coor ([phone]), who is covering for Rae who has been following Mary as an outpt
Jl Silva stepfather ([place] [phone])
Abdi Bartholomewller, father ([place] [phone])
Plan d/c to apartment with Kleber ESPINAL, with resumption of 24-hr caregivers, possibly with resumption home infusion, once housing is available.
[2023-11-25] MEDS: NON-FORMULARY ITEM 2 UNIT NASAL (11:35)
[2023-11-25 11:42] LABS: Glucose - Point of Care 146 mg/dl (70-99)
[2023-11-25 12:00] VITALS: BP 105/81
[2023-11-25] MEDS: SINEMET 25-100 2 TABLET TUBE ×2 (14:05→17:27)
[2023-11-25] MEDS: NON-FORMULARY ITEM 200 MG PO (14:06)
[2023-11-25 16:00] VITALS: BP 118/107
--- NOTE | 2023-11-25 16:18 | W.PN.HOSP.TC ---
Today's Communication/Plan
-
Another attempt to wean Benadryl drip down to 8 mg an hour while offering to supplement with p.o. regimen. Patient declines.
Assessment / Plan
Assessment / Plan
Impression:
Gram-negative bacteremia due to chronic infected PICC line.
Fever on admission with no evidence of sepsis (tachycardia likely fever mediated)
Conditions prior to admission:
1. Mast cell activation syndrome.
2. Chronic dystonic reaction.
3. Orthostatic hypotension with postural orthostatic and
tachycardia syndrome.
4. Dopa sensitive dystonia.
5. Steroid-induced diabetes.
6. Prior history of deep venous thrombosis and pulmonary embolism.
7. Chronic pain syndrome.
8. Migraine headaches.
9. Gastroesophageal reflux disease.
10. Benzodiazepine and opiate dependence.
11. Restless legs syndrome.
12. Insomnia.
13. History of vocal cord dysfunction.
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
15. Gastroparesis.
16. 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
17. 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
Plan:
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
PICC line removed and PICC line replaced on 09/23
Repeated blood cultures negative on 09/20 but no other cultures obtained
Finished cipro on 10/06/23 (was on 750mg BID)
GJ tube in place
Replaced by interventional radiology on 09/22
Replaced by interventional radiology 11/04 due to concern leakage
HX Recurrent Anaphylaxis / Mast Cell Flare Episodes on chronic steroids
Mast Cell Activation Syndrome
DOPA-Responsive Dystonia
-follows with Dr. Lizabeth Villanueva at [facility] hematology.
- Continue Ativan
�-cont Gleevac ,steroids
�--Levalbuterol as needed, to do her eyedrops
-Continue carbidopa levodopa
-prednisone continued
-Outpatient IV Benadryl drip at 15 milligram an hour upon presentation. As discussed with primary machine cell tuber Dr. Mora plan is to slowly taper. Decreased Benadryl drip down to 9 mg an hour on 11/18.
Multiple conversations with patient almost on a daily basis in regards to goals of care including attempt to wean off Benadryl drip with possibly substitution to oral regimen to facilitate discharge as well as outpatient management. Patient has
been resistant to wean off Benadryl drip completely at this point.
dystonia/movement disorder-patient apparently has dystonic features with her mast cell activation syndrome. I could not find in literature as a routine clinical presentation but according to patient apparently this is very unusual feature which was
noted in few other patients . She was on IV Benadryl pump at 15 mg/h at home.
-baclofen continued
-sinemet continued
-episodes with vasovagal response when trying to have a BM - start standing miralax and colace BID
Chronic pain syndrome-on high doses of narcotics (chronic opioid use with dependence) including p.o. Dilaudid and Suboxone at home. Again unclear the source of her pain.
GERD
-famotidine continued
-acipHex continued
-simethicone continued
iron def anemia
-ferrous sulfate continued
hxt of tachycardia
-EKG with sinus tachycardia
-propranolol continued
Chronic Nausea / Esophageal Dysmotility/gastroparesis
History GJ tube
�- Continue diet as tolerated.
�- Continue G-tube to gravity for chronic nausea.
�- Meds via J-tube.
-Zofran every 8 hours as needed
-Continue Pepcid
-emend continued
- PEG tube site without any signs of cellulitis. CT of the abdomen pelvis shows no subcutaneous collection around the PEG tube and it is in place.
Acute fractures of the left 6 anterolateral 6th and 7th ribs
-Suspect from recent fall on 10/03
-10/25 complains of pain on the posterolateral lower ribs
-Continue lidocaine patch, add heating packs
Steroid-Induced DM-II--
She remains on steady dose of prednisone
Blood glucose remains marginal
Monitor oral intake
Reduce Lantus and NovoLog AC
Continue serial Accu-Cheks with basal bolus protocol.
S/p fall overnight 10/03-10/04
imaging negative for bleed or fracture
Steroid-Induced Osteoporosis
Chronic Pain Syndrome secondary to the above on chronic opiates
�- Continue buprenorphine 2 mg 4 times daily , Dilaudid 8 mg as needed
�- PT / OT evaluations.
�- Follow-up with usual employee placement specialist after discharge.
allergy induced asthma
chronic hypoxic respiratory failure--on O2
-albuterol continued
-budesonide continued
-cetirizine continued
-cromolyn continued
Thrush
Completed course of clotrimazole Troches for thrush
Migraine Hx
ODT Nurtec as needed
Restless leg syndrome
-Continue baclofen
History of DVT/PE
#Takes subcu Lovenox 100 mg twice daily
DNR on admission
Disposition: Discussion with primary machine cell tuber Dr. Ethan Villanueva on 10/09. Discussed possibility of attempting weaning Benadryl drip likely could be done as outpatient. With current family social situation, unfortunately there is no options
for disposition other than home on IV infusion. Possibility of a transfer to [facility] discussed as well, although according to Dr. Villanueva hospital administration declined services due to complexity. Also discussed possibility of
transfer to tertiary center ([facility] declined in the past).
10/[address] Villanueva over the phone as well as [facility] transfer center.
Complex patient. Attempt to wean off Benadryl drip over the last 2 weeks with persistent dystonic episodes
While patient is relatively stable with her current condition, given complex clinical picture requiring multi disciplinary approach not limited to medicine, hematology, allergology, as well as neuropsychiatric assessment, patient would be better
served at a tertiary facility. Patient was accepted to [facility] for transfer, but hospital administration denied her transfer due to complexity (discussed with patient who is aware)
Total time spent to see the patient on the floor, examine the patient, review data and lab results, discuss treatment plan with patient, nursing staff around 39 minutes.
Anticipated Discharge: > 48 hours
Subjective/Interval History
-
Date of Service: November 25, 2023
Objective Data
-
Vital Signs:
Vital Signs
Temp Pulse Resp BP Pulse Ox
97.8 F 100 21 118/107 95
11/25/23 11:21 11/25/23 16:00 11/25/23 16:00 11/25/23 16:00 11/25/23 16:00
I&O
11/24/23 11/25/23 11/26/23
06:59 06:59 06:59
Intake Total 2968 / 2968
Output Total 1600 / 1600 3000 / 3000 1999 / 1999
Balance -1600 / -1600 -32 / -32 -1999 / -1999
Physical Exam
-
General: Well Developed and No Apparent Distress
HEENT: Normocephalic, Atraumatic and Moist Mucous Membranes
Respiratory: Clear to Auscultation
Cardiac: Regular Rhythm and S1/S2; Negative Murmur, Rub or Gallop
GI: Soft, Nontender, Nondistended, Normal Bowel Sounds and Peg Tube; Negative Organomegaly
Rectal: Deferred by Provider
Musculoskeletal: No Clubbing, No Cyanosis and No Edema
Skin: Negative Rash
Neuro: Nonfocal/Grossly Intact
[2023-11-25] MEDS: ATIVAN 1 MG IV (16:38)
[2023-11-25] MEDS: ADRENALIN 0.3 MG IM (16:41)
[2023-11-25] MEDS: ZOFRAN 4 MG IV (16:53)
--- NOTE | 2023-11-25 16:56 | PTCARENOTE ---
Pt had a dystonia episode meds given as ordered per JUL. Pt erequested non rebreather mask
[2023-11-25] MEDS: ZYRTEC 10 MG TUBE ×2 (17:18→22:08)
[2023-11-25 17:28] LABS: Glucose - Point of Care 111 mg/dl (70-99)
[2023-11-25 20:00] VITALS: BP 116/84
[2023-11-25 21:34] LABS: Glucose - Point of Care 112 mg/dl (70-99)
[2023-11-25] MEDS: FEOSOL 325 MG PO (22:08)
[2023-11-26] VITALS (10 sets, daily range): BP systolic 94–121; BP diastolic 48–95; PULSE 103; O2SAT 95
[2023-11-26] MEDS: BENADRYL 250 MG IV ×2 (00:16→22:38)
[2023-11-26] MEDS: TYLENOL 650 MG PO (00:21)
[2023-11-26] MEDS: ATIVAN 2 MG SL ×4 (02:18→21:55)
[2023-11-26] MEDS: BENADRYL 25 MG IV ×5 (02:18→21:57)
[2023-11-26] MEDS: NSS 1000 IV ×2 (02:19→12:22)
[2023-11-26] MEDS: LIORESAL 10 MG TUBE ×3 (06:19→21:56)
[2023-11-26] MEDS: SINEMET 25-100 1.5 TABLET TUBE ×2 (06:19→09:09)
--- NOTE | 2023-11-26 06:40 | PTCARENOTE ---
Pt Aox3, VSS, NSR on monitor, c/o headache over night PRN Tylenol given. Pt with the feeling of having an 'episode' see MAR for medication. Pt washed her self up, and brushed teeth before bed, linens, gown and purewick changed. Pt turns self in bed,
able to make all her needs known.
[2023-11-26] MEDS: PULMICORT 0.5 MG INH ×2 (07:59→21:22)
[2023-11-26 08:13] LABS: Glucose - Point of Care 79 mg/dl (70-99)
[2023-11-26] MEDS: GASTROCROM 300 MG PO ×4 (09:02→21:57)
[2023-11-26] MEDS: NOVOLOG FLEXPEN-LOW RESISTANCE SC ×2 (09:03→17:21)
[2023-11-26] MEDS: NOVOLOG FLEXPEN 3 UNITS SC ×3 (09:03→17:20)
[2023-11-26] MEDS: MIRALAX 17 GRAMS TUBE (09:04)
[2023-11-26] MEDS: LANTUS 0.1 UNITS SC (09:04)
[2023-11-26] MEDS: LOVENOX 100 MG SC ×2 (09:05→20:01)
[2023-11-26] MEDS: LIDOCAINE 4% PATCH 1 PATCH TOPICAL (09:05)
[2023-11-26] MEDS: PEPCID 40 MG IV ×2 (09:07→20:01)
[2023-11-26] MEDS: HYDREA 500 MG PO ×2 (09:08→19:58)
[2023-11-26] MEDS: DELTASONE 10 MG TUBE ×2 (09:08→19:57)
[2023-11-26] MEDS: NSS (PRESERVATIVE FREE) 6 ML IV ×2 (09:08→20:01)
[2023-11-26] MEDS: SUBUTEX 2 MG SL ×4 (09:09→21:54)
[2023-11-26] MEDS: INDERAL 10 MG TUBE ×3 (09:09→21:56)
[2023-11-26] MEDS: MYCELEX TROCHE 10 MG PO ×2 (09:09→12:16)
[2023-11-26] MEDS: CLARITIN 10 MG TUBE (09:09)
[2023-11-26] MEDS: COLACE PO (09:10)
[2023-11-26] MEDS: DESENEX/MITRAZOL/ZEASORB 1 APPLIC TOPICAL ×2 (09:10→20:05)
[2023-11-26] MEDS: VITAMIN B1 100 MG TUBE (09:10)
[2023-11-26] MEDS: NON-FORMULARY ITEM 80 MG PO (09:11)
[2023-11-26] MEDS: ZADITOR 1 DROP BOTH EYES ×2 (09:11→20:04)
[2023-11-26] MEDS: NON-FORMULARY ITEM 1 UNIT PO ×2 (09:12→20:00)
[2023-11-26] MEDS: NON-FORMULARY ITEM 1 MG PO ×2 (09:13→19:59)
[2023-11-26] MEDS: NON-FORMULARY ITEM NASAL (09:14)
--- NOTE | 2023-11-26 11:44 | PTCARENOTE ---
Rec'd pt this AM. Requesated benadryl and Ativan PRN at 1030 stating she did not feel well. Pt requested to see therapy dog that was rounding on the floor. Stated that despite her allergies she felt it would be OK. Pt tolerated visit well without
any allergic reaction noted. Very happy after visit. Walked in [place] with PT with rolling walker and did very well. Required 1L NC however, upon returning to room as O2 sat down to 87% on RA and pt reported feeling SOB. Emotional support provided.
vital signs stable.
[2023-11-26] MEDS: NOVOLOG FLEXPEN-LOW RESISTANCE 1 UNITS SC (12:23)
[2023-11-26 12:36] LABS: Glucose - Point of Care 160 mg/dl (70-99)
[2023-11-26] MEDS: SINEMET 25-100 2 TABLET TUBE ×2 (14:30→17:19)
[2023-11-26] MEDS: NON-FORMULARY ITEM 200 MG PO (14:32)
[2023-11-26] MEDS: ATIVAN 1 MG IV (16:39)
[2023-11-26] MEDS: NSS (PRESERVATIVE FREE) 0.5 ML IV (16:39)
[2023-11-26] MEDS: ZOFRAN 4 MG IV ×2 (16:51→23:06)
--- NOTE | 2023-11-26 17:16 | W.PN.HOSP.TC ---
Today's Communication/Plan
-
Continue current care including Benadryl drip and IV fluids.
Assessment / Plan
Assessment / Plan
Impression:
Gram-negative bacteremia due to chronic infected PICC line.
Fever on admission with no evidence of sepsis (tachycardia likely fever mediated)
Conditions prior to admission:
1. Mast cell activation syndrome.
2. Chronic dystonic reaction.
3. Orthostatic hypotension with postural orthostatic and
tachycardia syndrome.
4. Dopa sensitive dystonia.
5. Steroid-induced diabetes.
6. Prior history of deep venous thrombosis and pulmonary embolism.
7. Chronic pain syndrome.
8. Migraine headaches.
9. Gastroesophageal reflux disease.
10. Benzodiazepine and opiate dependence.
11. Restless legs syndrome.
12. Insomnia.
13. History of vocal cord dysfunction.
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
15. Gastroparesis.
16. 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
17. 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
Plan:
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
PICC line removed and PICC line replaced on 09/23
Repeated blood cultures negative on 09/20 but no other cultures obtained
Finished cipro on 10/06/23 (was on 750mg BID)
GJ tube in place
Replaced by interventional radiology on 09/22
Replaced by interventional radiology 11/04 due to concern leakage
HX Recurrent Anaphylaxis / Mast Cell Flare Episodes on chronic steroids
Mast Cell Activation Syndrome
DOPA-Responsive Dystonia
-follows with Dr. Lizabeth Villanueva at [facility] hematology.
- Continue Ativan
�-cont Gleevac ,steroids
�--Levalbuterol as needed, to do her eyedrops
-Continue carbidopa levodopa
-prednisone continued
-Outpatient IV Benadryl drip at 15 milligram an hour upon presentation. As discussed with primary radiology supervisor Dr. Mora plan is to slowly taper. Decreased Benadryl drip down to 9 mg an hour on 11/18.
Multiple conversations with patient almost on a daily basis in regards to goals of care including attempt to wean off Benadryl drip with possibly substitution to oral regimen to facilitate discharge as well as outpatient management. Patient has
been resistant to wean off Benadryl drip completely at this point.
dystonia/movement disorder-patient apparently has dystonic features with her mast cell activation syndrome. I could not find in literature as a routine clinical presentation but according to patient apparently this is very unusual feature which was
noted in few other patients . She was on IV Benadryl pump at 15 mg/h at home.
-baclofen continued
-sinemet continued
-episodes with vasovagal response when trying to have a BM - start standing miralax and colace BID
Chronic pain syndrome-on high doses of narcotics (chronic opioid use with dependence) including p.o. Dilaudid and Suboxone at home. Again unclear the source of her pain.
GERD
-famotidine continued
-acipHex continued
-simethicone continued
iron def anemia
-ferrous sulfate continued
hxt of tachycardia
-EKG with sinus tachycardia
-propranolol continued
Chronic Nausea / Esophageal Dysmotility/gastroparesis
History GJ tube
�- Continue diet as tolerated.
�- Continue G-tube to gravity for chronic nausea.
�- Meds via J-tube.
-Zofran every 8 hours as needed
-Continue Pepcid
-emend continued
- PEG tube site without any signs of cellulitis. CT of the abdomen pelvis shows no subcutaneous collection around the PEG tube and it is in place.
Acute fractures of the left 6 anterolateral 6th and 7th ribs
-Suspect from recent fall on 10/03
-10/25 complains of pain on the posterolateral lower ribs
-Continue lidocaine patch, add heating packs
Steroid-Induced DM-II--
She remains on steady dose of prednisone
Blood glucose remains marginal
Monitor oral intake
Reduce Lantus and NovoLog AC
Continue serial Accu-Cheks with basal bolus protocol.
S/p fall overnight 10/03-10/04
imaging negative for bleed or fracture
Steroid-Induced Osteoporosis
Chronic Pain Syndrome secondary to the above on chronic opiates
�- Continue buprenorphine 2 mg 4 times daily , Dilaudid 8 mg as needed
�- PT / OT evaluations.
�- Follow-up with usual residential support specialist after discharge.
allergy induced asthma
chronic hypoxic respiratory failure--on O2
-albuterol continued
-budesonide continued
-cetirizine continued
-cromolyn continued
Thrush
Completed course of clotrimazole Troches for thrush
Migraine Hx
ODT Nurtec as needed
Restless leg syndrome
-Continue baclofen
History of DVT/PE
#Takes subcu Lovenox 100 mg twice daily
DNR on admission
Disposition: Discussion with primary radiology supervisor Dr. Ethan Villanueva on 10/09. Discussed possibility of attempting weaning Benadryl drip likely could be done as outpatient. With current family social situation, unfortunately there is no options
for disposition other than home on IV infusion. Possibility of a transfer to [facility] discussed as well, although according to Dr. Villanueva hospital administration declined services due to complexity. Also discussed possibility of
transfer to tertiary center ([facility] declined in the past).
10/[address] Villanueva over the phone as well as [facility] transfer center.
Complex patient. Attempt to wean off Benadryl drip over the last 2 weeks with persistent dystonic episodes
While patient is relatively stable with her current condition, given complex clinical picture requiring multi disciplinary approach not limited to medicine, hematology, allergology, as well as neuropsychiatric assessment, patient would be better
served at a tertiary facility. Patient was accepted to [facility] for transfer, but hospital administration denied her transfer due to complexity (discussed with patient who is aware)
Total time spent to see the patient on the floor, examine the patient, review data and lab results, discuss treatment plan with patient, nursing staff around 39 minutes.
Anticipated Discharge: 24 - 48 hours
Subjective/Interval History
-
Date of Service: November 26, 2023
Objective Data
-
Vital Signs:
Vital Signs
Temp Pulse Resp BP Pulse Ox
97.8 F 43 13 117/87 96
11/26/23 15:20 11/26/23 15:20 11/26/23 10:00 11/26/23 09:09 11/26/23 15:20
I&O
11/25/23 11/26/23 11/27/23
06:59 06:59 06:59
Intake Total 2968 / 2968 960 / 960
Output Total 3000 / 3000 3900 / 3900
Balance -32 / -32 -2940 / -2940
Physical Exam
-
General: Well Developed and No Apparent Distress
HEENT: Normocephalic, Atraumatic and Moist Mucous Membranes
Respiratory: Clear to Auscultation
Cardiac: Regular Rhythm and S1/S2; Negative Murmur, Rub or Gallop
GI: Soft, Nontender, Nondistended, Normal Bowel Sounds and Peg Tube; Negative Organomegaly
Rectal: Deferred by Provider
Musculoskeletal: No Clubbing, No Cyanosis and No Edema
Skin: Negative Rash
Neuro: Nonfocal/Grossly Intact
[2023-11-26] MEDS: ZYRTEC 10 MG TUBE ×2 (17:18→21:56)
[2023-11-26 17:40] LABS: Glucose - Point of Care 105 mg/dl (70-99)
--- NOTE | 2023-11-26 18:07 | PTCARENOTE ---
Pt had dystonic episode at approx 1700. Incontinent of urine. relieved with Ativan and Benadryl PRN doses. While completing hygiene pt asked RN if she was going to be moved since she was placed on a tele pack. RN educted pt that her level of care
has been tele for several weeks and that the tele pack is appropriate for her and would make it easier for her to get OOB and use bathroom, and walk the [place]. She asked how we would monitor her pulse Ox, RN educated her that we would still be
checking her pulse Ox q4 hours as well as her BP. Pt appeared satisfied with this response and is currently resting.
[2023-11-26] MEDS: COLACE 100 MG PO (19:57)
[2023-11-26 21:24] LABS: Glucose - Point of Care 143 mg/dl (70-99)
[2023-11-26] MEDS: FEOSOL 325 MG PO (21:59)
[2023-11-27] VITALS (9 sets, daily range): BP systolic 103–122; BP diastolic 67–107
[2023-11-27] MEDS: NSS 1000 IV (00:22)
--- NOTE | 2023-11-27 02:36 | PTCARENOTE ---
Pt requested PRN ativan, benadryl, and zofran, see MAR. Pt able to perform hygiene care with minimal assistance. Pt cooperative, conversant.
[2023-11-27] MEDS: BENADRYL 25 MG IV ×2 (03:33→09:12)
[2023-11-27] MEDS: ATIVAN 2 MG SL ×2 (03:35→09:12)
[2023-11-27] MEDS: NSS (PRESERVATIVE FREE) 0.5 ML IV (04:06)
[2023-11-27] MEDS: ATIVAN 1 MG IV (04:06)
--- NOTE | 2023-11-27 04:12 | PTCARENOTE ---
Pt experiencing prolonged dystonia attack, medicated with IV ativan per MAR in addition to SL ativan and IV benadryl
[2023-11-27] MEDS: SINEMET 25-100 1.5 TABLET TUBE ×2 (06:25→09:32)
[2023-11-27] MEDS: LIORESAL 10 MG TUBE ×2 (06:26→14:46)
[2023-11-27] MEDS: PULMICORT 0.5 MG INH ×2 (08:28→19:40)
[2023-11-27 08:35] LABS: Glucose - Point of Care 81 mg/dl (70-99)
[2023-11-27] MEDS: LIDOCAINE 4% PATCH 1 PATCH TOPICAL (08:57)
[2023-11-27] MEDS: LANTUS 0.1 UNITS SC (08:58)
[2023-11-27] MEDS: COLACE PO (08:59)
[2023-11-27] MEDS: DESENEX/MITRAZOL/ZEASORB 1 APPLIC TOPICAL ×2 (08:59→20:32)
[2023-11-27] MEDS: PEPCID 40 MG IV ×2 (09:00→20:24)
[2023-11-27] MEDS: NSS (PRESERVATIVE FREE) 6 ML IV ×2 (09:01→20:27)
[2023-11-27] MEDS: LOVENOX 100 MG SC ×2 (09:01→20:23)
[2023-11-27] MEDS: GASTROCROM 300 MG PO ×3 (09:02→17:50)
[2023-11-27] MEDS: HYDREA 500 MG PO ×2 (09:02→20:21)
[2023-11-27] MEDS: DELTASONE 10 MG TUBE ×2 (09:02→20:22)
[2023-11-27] MEDS: INDERAL 10 MG TUBE ×2 (09:02→17:50)
[2023-11-27] MEDS: SUBUTEX 2 MG SL ×3 (09:03→17:50)
[2023-11-27] MEDS: VITAMIN B1 100 MG TUBE (09:03)
[2023-11-27] MEDS: CLARITIN 10 MG TUBE (09:03)
[2023-11-27] MEDS: NOVOLOG FLEXPEN-LOW RESISTANCE SC ×2 (09:04→18:01)
[2023-11-27] MEDS: NOVOLOG FLEXPEN 3 UNITS SC ×3 (09:04→18:00)
[2023-11-27] MEDS: NON-FORMULARY ITEM 80 MG PO (09:05)
[2023-11-27] MEDS: NON-FORMULARY ITEM 1 MG PO ×2 (09:07→20:35)
[2023-11-27] MEDS: MIRALAX TUBE (09:08)
[2023-11-27] MEDS: NON-FORMULARY ITEM NASAL (09:08)
[2023-11-27] MEDS: NON-FORMULARY ITEM 1 UNIT PO ×2 (09:09→20:34)
[2023-11-27] MEDS: ZADITOR 1 DROP BOTH EYES ×2 (09:25→20:36)
--- NOTE | 2023-11-27 11:54 | W.PN.UPDATE ---
Update Note
Progress Note Update
patient seen chart reviewed. meeting held yesterday w regulatory affairs director as well as two other pharmacists and dr kingston to discuss plan re medications going forward. we met again this am to continue discussion. the purpuse of med changes is to
treat her illness, optimize medication response and minimize side effects and move towards a regimen c/w her being dc to home ie no iv medications which cannot be admin in the home. this was presented to the patient. the patient initially was
seated calmly in bed her food tray in front of her indicating a healthy appetite w complete consumption of the food on the tray. she however became upset during the meeting. an attempt was made to explain gently to her the purpose of this
revamping of her meds as stated herein but she said she felt as though she were being ambushed. an attempt was made to reassure her that the changes were being suggested with her future prosperity in mind. changes included continuing to taper
benadryl drip ativan converted to a standing order in the hope of reducing anxiety, epinephrine for bronchospasm only, limited prn benadryl . patient was encouraged to give this regimen some time. also plan is to institute med sitter as another
way to monitor response to new med regimen. total time 70 minutes for today.
[2023-11-27] MEDS: BENADRYL SOLUTION 25 MG TUBE ×3 (12:27→22:05)
[2023-11-27] MEDS: ATIVAN 1 MG SL ×3 (12:27→20:32)
[2023-11-27] MEDS: NOVOLOG FLEXPEN-LOW RESISTANCE 1 UNITS SC (12:41)
[2023-11-27 12:45] LABS: Glucose - Point of Care 171 mg/dl (70-99)
[2023-11-27] MEDS: SINEMET 25-100 2 TABLET TUBE ×2 (14:46→17:50)
[2023-11-27] MEDS: BENADRYL IV (14:50)
[2023-11-27] MEDS: NON-FORMULARY ITEM 100 MG PO (15:07)
[2023-11-27] MEDS: BENADRYL 250.5 MG IV (15:32)
[2023-11-27] MEDS: BENADRYL 50.5 MG IV (15:32)
[2023-11-27] MEDS: ZOFRAN 4 MG IV (15:41)
--- NOTE | 2023-11-27 17:21 | PTCARENOTE ---
Rec'd pt this AM. RN participated in multi-disciplinary team meeting to address pt's med regime and work on developing an appropriate and realistic plant to address her dystonic episodes. Med plan established and the team shared the plan with pt. Pt
became immediately upset, tearful, defensive. RN provided support and clarification as best as possible. Pt tearful for much of the shift, flat, and upset at times. Pt's father arrived at 1400 to bring meds and visit. Pt rang for RN and questioned
the effectiveness of this new plan, then immediately began having an episode of dystonia. Father at bedside. Pt's episode lasted much longer than usual. She rec'd IV benadryl bolus dose. After about 90 minutes, her scheduled PO Ativan was given.
Approximately 30 minutes later her symptoms improved. Dr. Kirk at bedside to speak to pt and father. Pt nauseas and dry heaving at the end of the episode. Pt accused RN of crushing one of her pills that is not able to be crushed and pushing it
into PEG tube, causing the nausea and dry heaving. RN showed pt that her PO med,was, in fact, not crushed and was in the pill cup at her bedside. Explained that RN was waiting until her episode resolved to give it to her. Pt's vital signs stable
throughout this event. Pt placed on med sitter to ensure safety as she has had falls while in the hospital. Very upset about this but reminded her that it is for safety. Bed alarm in place as well.
[2023-11-27 17:31] LABS: Glucose - Point of Care 130 mg/dl (70-99)
[2023-11-27] MEDS: BENADRYL 25 MG TUBE (17:51)
[2023-11-27] MEDS: ZYRTEC 10 MG TUBE (17:51)
--- NOTE | 2023-11-27 18:26 | W.PN.HOSP.TC ---
Today's Communication/Plan
-
11/26. Multidisciplinary meeting including psychiatry, clinical pharmacy, medicine, nursing.
Patient clinical course along with medication regimen has been reviewed.
With the goal of minimize exposure to IV medications and optimize regimen following changes implemented:
-Daily IV fluids discontinued with plan to monitor oral intake and orthostatics.
� IV Benadryl pushes have been discontinued.
� Lorazepam sublingual as needed order has been discontinued.
IV lorazepam has been discontinued
Hydromorphone oral 8 mg every 3 hours order has been discontinued.
Initiated:
Benadryl 25 mg infusion through piggyback will be provided over 10 minutes for breakthrough dystonic attack.
Benadryl p.o. 25 mg will be scheduled every 4 hours.
Lorazepam sublingual 1 mg with the scheduled while awake every 4 hours.
Hydromorphone p.o. 8 mg will be continued every 6 hours as needed for severe pain along with Suboxone.
Plan of care has been discussed extensively including today with Dr. Mora primary retail planner over the phone, patient's father and mother.
Assessment / Plan
Assessment / Plan
Impression:
Gram-negative bacteremia due to chronic infected PICC line.
Fever on admission with no evidence of sepsis (tachycardia likely fever mediated)
Conditions prior to admission:
1. Mast cell activation syndrome.
2. Chronic dystonic reaction.
3. Orthostatic hypotension with postural orthostatic and
tachycardia syndrome.
4. Dopa sensitive dystonia.
5. Steroid-induced diabetes.
6. Prior history of deep venous thrombosis and pulmonary embolism.
7. Chronic pain syndrome.
8. Migraine headaches.
9. Gastroesophageal reflux disease.
10. Benzodiazepine and opiate dependence.
11. Restless legs syndrome.
12. Insomnia.
13. History of vocal cord dysfunction.
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
15. Gastroparesis.
16. 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
17. 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
Plan:
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
PICC line removed and PICC line replaced on 09/23
Repeated blood cultures negative on 09/20 but no other cultures obtained
Finished cipro on 10/06/23 (was on 750mg BID)
GJ tube in place
Replaced by interventional radiology on 09/22
Replaced by interventional radiology 11/04 due to concern leakage
HX Recurrent Anaphylaxis / Mast Cell Flare Episodes on chronic steroids
Mast Cell Activation Syndrome
DOPA-Responsive Dystonia
-follows with Dr. Lizabeth Villanueva at [facility] hematology.
- Continue Ativan
�-cont Gleevac ,steroids
�--Levalbuterol as needed, to do her eyedrops
-Continue carbidopa levodopa
-prednisone continued
-Outpatient IV Benadryl drip at 15 milligram an hour upon presentation. As discussed with primary retail planner Dr. Mora plan is to slowly taper. Decreased Benadryl drip down to 9 mg an hour on 11/18.
Multiple conversations with patient almost on a daily basis in regards to goals of care including attempt to wean off Benadryl drip with possibly substitution to oral regimen to facilitate discharge as well as outpatient management. Patient has
been resistant to wean off Benadryl drip completely at this point.
11/26. Multidisciplinary meeting including psychiatry, clinical pharmacy, medicine, nursing.
Patient clinical course along with medication regimen has been reviewed.
With the goal of minimize exposure to IV medications and optimize regimen following changes implemented:
-Daily IV fluids discontinued with plan to monitor oral intake and orthostatics.
� IV Benadryl pushes have been discontinued.
� Lorazepam sublingual as needed order has been discontinued.
IV lorazepam has been discontinued
Hydromorphone oral 8 mg every 3 hours order has been discontinued.
Initiated:
Benadryl 25 mg infusion through piggyback will be provided over 10 minutes for breakthrough dystonic attack.
Benadryl p.o. 25 mg will be scheduled every 4 hours.
Lorazepam sublingual 1 mg with the scheduled while awake every 4 hours.
Hydromorphone p.o. 8 mg will be continued every 6 hours as needed for severe pain along with Suboxone.
dystonia/movement disorder-patient apparently has dystonic features with her mast cell activation syndrome. I could not find in literature as a routine clinical presentation but according to patient apparently this is very unusual feature which was
noted in few other patients . She was on IV Benadryl pump at 15 mg/h at home.
-baclofen continued
-sinemet continued
-episodes with vasovagal response when trying to have a BM - start standing miralax and colace BID
Chronic pain syndrome-on high doses of narcotics (chronic opioid use with dependence) including p.o. Dilaudid and Suboxone at home. Again unclear the source of her pain.
GERD
-famotidine continued
-acipHex continued
-simethicone continued
iron def anemia
-ferrous sulfate continued
hxt of tachycardia
-EKG with sinus tachycardia
-propranolol continued
Chronic Nausea / Esophageal Dysmotility/gastroparesis
History GJ tube
�- Continue diet as tolerated.
�- Continue G-tube to gravity for chronic nausea.
�- Meds via J-tube.
-Zofran every 8 hours as needed
-Continue Pepcid
-emend continued
- PEG tube site without any signs of cellulitis. CT of the abdomen pelvis shows no subcutaneous collection around the PEG tube and it is in place.
Acute fractures of the left 6 anterolateral 6th and 7th ribs
-Suspect from recent fall on 10/03
-10/25 complains of pain on the posterolateral lower ribs
-Continue lidocaine patch, add heating packs
Steroid-Induced DM-II--
She remains on steady dose of prednisone
Blood glucose remains marginal
Monitor oral intake
Reduce Lantus and NovoLog AC
Continue serial Accu-Cheks with basal bolus protocol.
S/p fall overnight 10/03-10/04
imaging negative for bleed or fracture
Steroid-Induced Osteoporosis
Chronic Pain Syndrome secondary to the above on chronic opiates
�- Continue buprenorphine 2 mg 4 times daily , Dilaudid 8 mg as needed
�- PT / OT evaluations.
�- Follow-up with usual senior specialist after discharge.
allergy induced asthma
chronic hypoxic respiratory failure--on O2
-albuterol continued
-budesonide continued
-cetirizine continued
-cromolyn continued
Thrush
Completed course of clotrimazole Troches for thrush
Migraine Hx
ODT Nurtec as needed
Restless leg syndrome
-Continue baclofen
History of DVT/PE
#Takes subcu Lovenox 100 mg twice daily
DNR on admission
Disposition: Discussion with primary retail planner Dr. Ethan Villanueva on 10/09. Discussed possibility of attempting weaning Benadryl drip likely could be done as outpatient. With current family social situation, unfortunately there is no options
for disposition other than home on IV infusion. Possibility of a transfer to [facility] discussed as well, although according to Dr. Villanueva hospital administration declined services due to complexity. Also discussed possibility of
transfer to tertiary center ([facility] declined in the past).
10/[address] Villanueva over the phone as well as [facility] transfer center.
Complex patient. Attempt to wean off Benadryl drip over the last 2 weeks with persistent dystonic episodes
While patient is relatively stable with her current condition, given complex clinical picture requiring multi disciplinary approach not limited to medicine, hematology, allergology, as well as neuropsychiatric assessment, patient would be better
served at a tertiary facility. Patient was accepted to [facility] for transfer, but hospital administration denied her transfer due to complexity (discussed with patient who is aware)
Total time spent to see the patient on the floor, examine the patient, review data and lab results, discuss treatment plan with patient, nursing staff around 39 minutes.
Anticipated Discharge: > 48 hours
Subjective/Interval History
-
Date of Service: November 27, 2023
Objective Data
-
Vital Signs:
Vital Signs
Temp Pulse Resp BP Pulse Ox
97.9 F 102 16 119/90 98
11/27/23 15:40 11/27/23 17:00 11/27/23 08:33 11/27/23 17:50 11/27/23 17:18
I&O
11/26/23 11/27/23 11/28/23
06:59 06:59 06:59
Intake Total 960 / 960 2027
Output Total 3900 / 3900 3050 / 3050
Balance -2940 / -2940 -1022 / -1022
Physical Exam
-
General: Well Developed and No Apparent Distress
HEENT: Normocephalic, Atraumatic and Moist Mucous Membranes
Respiratory: Clear to Auscultation
Cardiac: Regular Rhythm and S1/S2; Negative Murmur, Rub or Gallop
GI: Soft, Nontender, Nondistended, Normal Bowel Sounds and Peg Tube; Negative Organomegaly
Rectal: Deferred by Provider
Musculoskeletal: No Clubbing, No Cyanosis and No Edema
Skin: Negative Rash
Neuro: Nonfocal/Grossly Intact
[2023-11-27] MEDS: COLACE 100 MG PO (20:21)
[2023-11-27 21:04] LABS: Glucose - Point of Care 158 mg/dl (70-99)
[2023-11-28] VITALS (7 sets, daily range): BP systolic 94–110; BP diastolic 61–84
--- NOTE | 2023-11-28 | PTCARENOTE ---
aaox3. vss. nsr. no events. bendryl gtt at 9ml/hr. scheduled meds given. pt updated on plan of care. will monitor.
[2023-11-28] MEDS: FEOSOL 325 MG PO ×2 (00:05→23:44)
[2023-11-28] MEDS: BENADRYL IV (00:05)
[2023-11-28] MEDS: GASTROCROM 300 MG PO ×4 (00:06→23:45)
[2023-11-28] MEDS: SUBUTEX 2 MG SL ×4 (00:07→23:44)
[2023-11-28] MEDS: LIORESAL 10 MG TUBE ×4 (00:07→23:45)
[2023-11-28] MEDS: INDERAL 10 MG TUBE ×4 (00:07→23:44)
[2023-11-28] MEDS: ZYRTEC 10 MG TUBE ×3 (00:08→23:45)
[2023-11-28] MEDS: ATIVAN 1 MG SL ×6 (00:09→23:46)
[2023-11-28] MEDS: BENADRYL SOLUTION 25 MG TUBE ×6 (02:05→23:44)
[2023-11-28] MEDS: BENADRYL 250 MG IV (03:49)
--- NOTE | 2023-11-28 04:49 | PTCARENOTE ---
pt verbalized she is having dystonic episode. mild tremors noted. no resp. distress. iv benadryl bolus admin. sl ativan given per schedule. will monitor.
[2023-11-28] MEDS: BENADRYL 50.5 MG IV ×3 (04:52→18:27)
[2023-11-28] MEDS: SINEMET 25-100 1.5 TABLET TUBE ×2 (06:33→09:28)
[2023-11-28] MEDS: PULMICORT 0.5 MG INH ×2 (07:38→18:28)
[2023-11-28 07:52] LABS: Glucose - Point of Care 91 mg/dl (70-99)
[2023-11-28] MEDS: NOVOLOG FLEXPEN-LOW RESISTANCE SC ×3 (09:01→17:40)
[2023-11-28] MEDS: NOVOLOG FLEXPEN 3 UNITS SC ×2 (09:02→17:49)
[2023-11-28] MEDS: PEPCID 40 MG IV ×2 (09:05→20:12)
[2023-11-28] MEDS: NSS (PRESERVATIVE FREE) 6 ML IV ×2 (09:05→20:12)
[2023-11-28] MEDS: DESENEX/MITRAZOL/ZEASORB 1 APPLIC TOPICAL ×2 (09:12→20:17)
[2023-11-28] MEDS: HYDREA 500 MG PO ×2 (09:12→20:11)
[2023-11-28] MEDS: COLACE 100 MG PO ×2 (09:15→20:10)
[2023-11-28] MEDS: CLARITIN 10 MG TUBE (09:15)
[2023-11-28] MEDS: DELTASONE 10 MG TUBE ×2 (09:15→20:11)
[2023-11-28] MEDS: LOVENOX 100 MG SC ×2 (09:16→20:11)
[2023-11-28] MEDS: MIRALAX 17 GRAMS TUBE (09:16)
[2023-11-28] MEDS: LIDOCAINE 4% PATCH 1 PATCH TOPICAL (09:18)
[2023-11-28] MEDS: NON-FORMULARY ITEM 80 MG PO (09:20)
[2023-11-28] MEDS: NON-FORMULARY ITEM 1 MG PO ×2 (09:21→20:16)
[2023-11-28] MEDS: NON-FORMULARY ITEM NASAL (09:22)
[2023-11-28] MEDS: VITAMIN B1 100 MG TUBE (09:22)
[2023-11-28] MEDS: NON-FORMULARY ITEM 1 UNIT PO ×2 (09:23→20:16)
[2023-11-28] MEDS: ZADITOR 1 DROP BOTH EYES ×2 (09:24→20:18)
[2023-11-28] MEDS: LANTUS 0.1 UNITS SC (09:29)
[2023-11-28] MEDS: DUONEB 3 ML INH ×2 (09:46→18:28)
--- NOTE | 2023-11-28 09:57 | PTCARENOTE ---
Addendum entered by Fanta Grover RN 11/28/23 10:22:
Relief from event took 43 minutes. Patient is now able to speak and verbalize her needs. Dr. Kirk aware of recovery time. Vital signs are now 94/80, 95, pulse ox 94% on 1 liters via nasal cannula. Ice packs on neck for relief.
Original Note:
During morning medication administration patient staring to state that she was feeling an 'aura'. Shortly after an episode occurred, with tensing of the arms, tremors. Patient having a cough, pulse ox 100% on 1 liter via nasal cannula, no stridor.
Ativan, Benadryl bolus and albuterol administered as pre doctors orders. Notified Dr. Kirk and assessment completed at bedside.
[2023-11-28 12:51] LABS: Glucose - Point of Care 110 mg/dl (70-99)
[2023-11-28] MEDS: GASTROCROM PO (13:09)
[2023-11-28] MEDS: NOVOLOG FLEXPEN SC (13:09)
[2023-11-28] MEDS: ATIVAN SL (13:10)
[2023-11-28] MEDS: SUBUTEX SL (13:10)
--- NOTE | 2023-11-28 13:11 | PTCARENOTE ---
After dystonic event this morning patient is now sleeping, whispering words but not opening eyes. Assessed the patient with Dr. Kirk at bedside. All oral medications held at this time. Blood sugar 110, 102/61, 85, pulse ox 96 on 1 liters via
nasal cannula.
--- NOTE | 2023-11-28 14:30 | W.PN.UPDATE ---
Update Note
Progress Note Update
patient seen chart reviewed. spoke with nursing who reported an episode of what she labeled dystonia that lasted for about 45 minutes. when i attempted to talk to alejandra she closed her eyes and told me she did not want to talk as it would only make
her feel worse. she continues to feel that she was ambushed by the team treating her. i asked her what she might change or add in her opinion but she reiterated that talking about it would only make her feel worse. told her i will try to talk with
her tomorrow if she is willing.
[2023-11-28] MEDS: SINEMET 25-100 2 TABLET TUBE ×2 (15:29→17:51)
[2023-11-28] MEDS: NON-FORMULARY ITEM 200 MG PO (15:31)
--- NOTE | 2023-11-28 15:32 | CM ---
Patient with Hx Mast Cell Activation Syndrome, dystonia/movement disorder, chronic pain syndrome, gastroparesis with Dx Gram-negative bacteremia due to chronic infected PICC line. Receiving IV Benadryl gtt. Multidisciplinary meeting yesterday. GJ
tube in place. Seen by Psych. Funes per nursing. PT 11/25 recommends HH. OT 11/25 recommends skilled vs home.
Phone call to Roslyn Frereira, Switchboard Manager [facility] ([place] [phone]); left message requesting callback.
CM continuing to follow for d/c needs.
Plan await apartment to be in place for patient's discharge.
Plan d/c to apartment with [facility], with resumption of 24-hr caregivers, possibly with resumption home infusion, once housing is available.
--- NOTE | 2023-11-28 17:23 | W.PN.HOSP.TC ---
Today's Communication/Plan
-
Continue current medication regiment
Monitor pattern and frequency of dystonic reaction.
Discussed with psychiatry
Discussed with nursing.
Assessment / Plan
Assessment / Plan
Impression:
Gram-negative bacteremia due to chronic infected PICC line.
Fever on admission with no evidence of sepsis (tachycardia likely fever mediated)
Conditions prior to admission:
1. Mast cell activation syndrome.
2. Chronic dystonic reaction.
3. Orthostatic hypotension with postural orthostatic and
tachycardia syndrome.
4. Dopa sensitive dystonia.
5. Steroid-induced diabetes.
6. Prior history of deep venous thrombosis and pulmonary embolism.
7. Chronic pain syndrome.
8. Migraine headaches.
9. Gastroesophageal reflux disease.
10. Benzodiazepine and opiate dependence.
11. Restless legs syndrome.
12. Insomnia.
13. History of vocal cord dysfunction.
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
15. Gastroparesis.
16. 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
17. 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
Plan:
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
PICC line removed and PICC line replaced on 09/23
Repeated blood cultures negative on 09/20 but no other cultures obtained
Finished cipro on 10/06/23 (was on 750mg BID)
GJ tube in place
Replaced by interventional radiology on 09/22
Replaced by interventional radiology 11/04 due to concern leakage
HX Recurrent Anaphylaxis / Mast Cell Flare Episodes on chronic steroids
Mast Cell Activation Syndrome
DOPA-Responsive Dystonia
-follows with Dr. Lizabeth Villanueva at [facility] hematology.
- Continue Ativan
�-cont Gleevac ,steroids
�--Levalbuterol as needed, to do her eyedrops
-Continue carbidopa levodopa
-prednisone continued
-Outpatient IV Benadryl drip at 15 milligram an hour upon presentation. As discussed with primary nurse anesthesia program director Dr. Mora plan is to slowly taper. Decreased Benadryl drip down to 9 mg an hour on 11/18.
Multiple conversations with patient almost on a daily basis in regards to goals of care including attempt to wean off Benadryl drip with possibly substitution to oral regimen to facilitate discharge as well as outpatient management. Patient has
been resistant to wean off Benadryl drip completely at this point.
11/26. Multidisciplinary meeting including psychiatry, clinical pharmacy, medicine, nursing.
Patient clinical course along with medication regimen has been reviewed.
With the goal of minimize exposure to IV medications and optimize regimen following changes implemented:
-Daily IV fluids discontinued with plan to monitor oral intake and orthostatics.
� IV Benadryl pushes have been discontinued.
� Lorazepam sublingual as needed order has been discontinued.
IV lorazepam has been discontinued
Hydromorphone oral 8 mg every 3 hours order has been discontinued.
Initiated:
Benadryl 25 mg infusion through piggyback will be provided over 10 minutes for breakthrough dystonic attack.
Benadryl p.o. 25 mg will be scheduled every 4 hours.
Lorazepam sublingual 1 mg with the scheduled while awake every 4 hours.
Hydromorphone p.o. 8 mg will be continued every 6 hours as needed for severe pain along with Suboxone.
dystonia/movement disorder-patient apparently has dystonic features with her mast cell activation syndrome. I could not find in literature as a routine clinical presentation but according to patient apparently this is very unusual feature which was
noted in few other patients . She was on IV Benadryl pump at 15 mg/h at home.
-baclofen continued
-sinemet continued
-episodes with vasovagal response when trying to have a BM - start standing miralax and colace BID
Chronic pain syndrome-on high doses of narcotics (chronic opioid use with dependence) including p.o. Dilaudid and Suboxone at home. Again unclear the source of her pain.
GERD
-famotidine continued
-acipHex continued
-simethicone continued
iron def anemia
-ferrous sulfate continued
hxt of tachycardia
-EKG with sinus tachycardia
-propranolol continued
Chronic Nausea / Esophageal Dysmotility/gastroparesis
History GJ tube
�- Continue diet as tolerated.
�- Continue G-tube to gravity for chronic nausea.
�- Meds via J-tube.
-Zofran every 8 hours as needed
-Continue Pepcid
-emend continued
- PEG tube site without any signs of cellulitis. CT of the abdomen pelvis shows no subcutaneous collection around the PEG tube and it is in place.
Acute fractures of the left 6 anterolateral 6th and 7th ribs
-Suspect from recent fall on 10/03
-10/25 complains of pain on the posterolateral lower ribs
-Continue lidocaine patch, add heating packs
Steroid-Induced DM-II--
She remains on steady dose of prednisone
Blood glucose remains marginal
Monitor oral intake
Reduce Lantus and NovoLog AC
Continue serial Accu-Cheks with basal bolus protocol.
S/p fall overnight 10/03-10/04
imaging negative for bleed or fracture
Steroid-Induced Osteoporosis
Chronic Pain Syndrome secondary to the above on chronic opiates
�- Continue buprenorphine 2 mg 4 times daily , Dilaudid 8 mg as needed
�- PT / OT evaluations.
�- Follow-up with usual database management system specialist after discharge.
allergy induced asthma
chronic hypoxic respiratory failure--on O2
-albuterol continued
-budesonide continued
-cetirizine continued
-cromolyn continued
Thrush
Completed course of clotrimazole Troches for thrush
Migraine Hx
ODT Nurtec as needed
Restless leg syndrome
-Continue baclofen
History of DVT/PE
#Takes subcu Lovenox 100 mg twice daily
DNR on admission
Disposition: Discussion with primary nurse anesthesia program director Dr. Ethan Villanueva on 10/09. Discussed possibility of attempting weaning Benadryl drip likely could be done as outpatient. With current family social situation, unfortunately there is no options
for disposition other than home on IV infusion. Possibility of a transfer to [facility] discussed as well, although according to Dr. Villanueva hospital administration declined services due to complexity. Also discussed possibility of
transfer to tertiary center ([facility] declined in the past).
10/[address] [facility]
Complex patient. Attempt to wean off Benadryl drip over the last 2 weeks with persistent dystonic episodes
While patient is relatively stable with her current condition, given complex clinical picture requiring multi disciplinary approach not limited to medicine, hematology, allergology, as well as neuropsychiatric assessment, patient would be better
served at a tertiary facility. Patient was accepted to [facility] for transfer, but hospital administration denied her transfer due to complexity (discussed with patient who is aware)
Anticipated Discharge: > 48 hours
Subjective/Interval History
-
Date of Service: November 28, 2023
Objective Data
-
Vital Signs:
Vital Signs
Temp Pulse Resp BP Pulse Ox
98.9 F 90 22 105/78 95
11/28/23 16:00 11/28/23 16:00 11/28/23 07:40 11/28/23 16:00 11/28/23 17:13
I&O
11/27/23 11/28/23 11/29/23
06:59 06:59 06:59
Intake Total 2027 960 / 960 240 / 240
Output Total 3050 / 3050 1800 / 1800
Balance -1022 / -1022 -840 / -840 240 / 240
Physical Exam
-
General: Well Developed and No Apparent Distress
HEENT: Normocephalic, Atraumatic and Moist Mucous Membranes
Respiratory: Clear to Auscultation
Cardiac: Regular Rhythm and S1/S2; Negative Murmur, Rub or Gallop
GI: Soft, Nontender, Nondistended and Normal Bowel Sounds; Negative Organomegaly
Rectal: Deferred by Provider
Musculoskeletal: No Clubbing, No Cyanosis and No Edema
Skin: Negative Rash
Neuro: Nonfocal/Grossly Intact
[2023-11-28 17:49] LABS: Glucose - Point of Care 97 mg/dl (70-99)
--- NOTE | 2023-11-28 18:01 | PTCARENOTE ---
After dystonic event this morning patient has had a flat affect, hardly speaking to staff, refusing hygiene care when offered. Therapeutic communication provided. Patient accepting medications.
--- NOTE | 2023-11-28 18:52 | PTCARENOTE ---
During evening medication administration patient stated that she was having dystonia, arms were clenched and twitching. Benadryl bolus administered for the second time today. Relief achieved quickly. Vital signs 99, 105/78, pulse ox 96%. Patient is
now eating dinner.
[2023-11-28 21:43] LABS: Glucose - Point of Care 143 mg/dl (70-99)
[2023-11-29] VITALS: BP 98/68
[2023-11-29] MEDS: BENADRYL IV (01:59)
[2023-11-29] MEDS: ATIVAN 1 MG SL ×5 (03:06→21:12)
[2023-11-29] MEDS: BENADRYL SOLUTION 25 MG TUBE ×6 (03:06→21:09)
[2023-11-29 04:00] VITALS: BP 93/63
--- NOTE | 2023-11-29 05:27 | PTCARENOTE ---
aaox3. vss. nsr. no events overnight. Benadryl gtt at 9ml/hr. pt updated on plan of care. will monitor.
[2023-11-29] MEDS: LIORESAL 10 MG TUBE ×3 (06:31→21:12)
[2023-11-29] MEDS: SINEMET 25-100 1.5 TABLET TUBE ×2 (06:32→10:47)
[2023-11-29] MEDS: BENADRYL 50.5 MG IV ×4 (06:45→21:45)
--- NOTE | 2023-11-29 07:14 | PTCARENOTE ---
pt w/ dystonic episode. no strider noted. vss. iv Benadryl admin. will monitor.
[2023-11-29] MEDS: PULMICORT 0.5 MG INH ×2 (07:40→18:22)
[2023-11-29 08:00] VITALS: BP 113/79
[2023-11-29 08:48] LABS: Glucose - Point of Care 88 mg/dl (70-99)
[2023-11-29] MEDS: NOVOLOG FLEXPEN-LOW RESISTANCE SC ×3 (08:59→18:10)
[2023-11-29] MEDS: GASTROCROM 300 MG PO ×4 (08:59→21:10)
[2023-11-29] MEDS: NOVOLOG FLEXPEN 3 UNITS SC ×3 (08:59→18:10)
[2023-11-29] MEDS: LIDOCAINE 4% PATCH 1 PATCH TOPICAL (10:30)
[2023-11-29] MEDS: LOVENOX 100 MG SC ×2 (10:30→21:08)
[2023-11-29] MEDS: NSS (PRESERVATIVE FREE) 6 ML IV ×2 (10:31→21:13)
[2023-11-29] MEDS: INDERAL 10 MG TUBE ×3 (10:32→21:12)
[2023-11-29] MEDS: PEPCID 40 MG IV ×2 (10:32→21:09)
[2023-11-29] MEDS: CLARITIN 10 MG TUBE (10:33)
[2023-11-29] MEDS: DELTASONE 10 MG TUBE ×2 (10:33→21:11)
[2023-11-29] MEDS: VITAMIN B1 100 MG TUBE (10:33)
[2023-11-29] MEDS: HYDREA 500 MG PO ×2 (10:34→21:13)
[2023-11-29] MEDS: SUBUTEX 2 MG SL ×4 (10:34→21:11)
[2023-11-29] MEDS: COLACE PO (10:37)
[2023-11-29] MEDS: DESENEX/MITRAZOL/ZEASORB 1 APPLIC TOPICAL ×2 (10:37→21:16)
[2023-11-29] MEDS: NON-FORMULARY ITEM 80 MG PO (10:38)
[2023-11-29] MEDS: NON-FORMULARY ITEM 1 MG PO ×2 (10:40→21:14)
[2023-11-29] MEDS: NON-FORMULARY ITEM 1 UNIT PO ×2 (10:41→21:15)
[2023-11-29] MEDS: MIRALAX TUBE (10:41)
[2023-11-29] MEDS: ZADITOR 1 DROP BOTH EYES ×2 (10:42→21:16)
[2023-11-29] MEDS: NON-FORMULARY ITEM NASAL (10:49)
[2023-11-29] MEDS: LANTUS 0.1 UNITS SC (10:49)
--- NOTE | 2023-11-29 11:42 | PTCARENOTE ---
pt with dystonic muscle contractions. benaryl 25 mg given IVPB. No stridor or wheeze noted; pox unable to obtain due to muscle contractions at this time. pt able to speak during episode. emotional support provided. continuing to monitor
[2023-11-29 12:00] VITALS: BP 123/86
[2023-11-29 12:13] LABS: Glucose - Point of Care 108 mg/dl (70-99)
--- NOTE | 2023-11-29 12:46 | W.PN.UPDATE ---
Update Note
Progress Note Update
patient seen chart reviewed. discussed with nursing and with dr kingston. the patient has continued to have episodes of dystonia. attempted to talk w her about this . when she did not really engage i tried to talk about non threatening topics such
as admiring her handiwork on a project she had been doing but this was also unsuccessful. she then expressed to me that she did not know why psychiatry had been called in again. yesterday she said it made her feel worse to talk about what is
going on as well. i asked her if she would like psychiatry to remove her from our rounds list to which she replied yes. i told her i would do this and suggested if she changed her mind we would be willing to return and help in any way we could
--- NOTE | 2023-11-29 13:53 | W.PN.HOSP.TC ---
Today's Communication/Plan
-
Remains on IV Benadryl drip
Continue current regimen with addition of IV Benadryl and lorazepam for breakthrough dystonia episodes.
Assessment / Plan
Assessment / Plan
Impression:
Gram-negative bacteremia due to chronic infected PICC line.
Fever on admission with no evidence of sepsis (tachycardia likely fever mediated)
Conditions prior to admission:
1. Mast cell activation syndrome.
2. Chronic dystonic reaction.
3. Orthostatic hypotension with postural orthostatic and
tachycardia syndrome.
4. Dopa sensitive dystonia.
5. Steroid-induced diabetes.
6. Prior history of deep venous thrombosis and pulmonary embolism.
7. Chronic pain syndrome.
8. Migraine headaches.
9. Gastroesophageal reflux disease.
10. Benzodiazepine and opiate dependence.
11. Restless legs syndrome.
12. Insomnia.
13. History of vocal cord dysfunction.
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
15. Gastroparesis.
16. 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
17. 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
Plan:
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
PICC line removed and PICC line replaced on 09/23
Repeated blood cultures negative on 09/20 but no other cultures obtained
Finished cipro on 10/06/23 (was on 750mg BID)
GJ tube in place
Replaced by interventional radiology on 09/22
Replaced by interventional radiology 11/04 due to concern leakage
HX Recurrent Anaphylaxis / Mast Cell Flare Episodes on chronic steroids
Mast Cell Activation Syndrome
DOPA-Responsive Dystonia
-follows with Dr. Lizabeth Villanueva at [facility] hematology.
- Continue Ativan
�-cont Gleevac ,steroids
�--Levalbuterol as needed, to do her eyedrops
-Continue carbidopa levodopa
-prednisone continued
-Outpatient IV Benadryl drip at 15 milligram an hour upon presentation. As discussed with primary infant childcare provider Dr. Mora plan is to slowly taper. Decreased Benadryl drip down to 9 mg an hour on 11/18.
Multiple conversations with patient almost on a daily basis in regards to goals of care including attempt to wean off Benadryl drip with possibly substitution to oral regimen to facilitate discharge as well as outpatient management. Patient has
been resistant to wean off Benadryl drip completely at this point.
11/26. Multidisciplinary meeting including psychiatry, clinical pharmacy, medicine, nursing.
Patient clinical course along with medication regimen has been reviewed.
With the goal of minimize exposure to IV medications and optimize regimen following changes implemented:
-Daily IV fluids discontinued with plan to monitor oral intake and orthostatics.
� IV Benadryl pushes have been discontinued.
� Lorazepam sublingual as needed order has been discontinued.
IV lorazepam has been discontinued
Hydromorphone oral 8 mg every 3 hours order has been discontinued.
Initiated:
Benadryl 25 mg infusion through piggyback will be provided over 10 minutes for breakthrough dystonic attack.
Benadryl p.o. 25 mg will be scheduled every 4 hours.
Lorazepam sublingual 1 mg with the scheduled while awake every 4 hours.
Hydromorphone p.o. 8 mg will be continued every 6 hours as needed for severe pain along with Suboxone.
dystonia/movement disorder-patient apparently has dystonic features with her mast cell activation syndrome. I could not find in literature as a routine clinical presentation but according to patient apparently this is very unusual feature which was
noted in few other patients . She was on IV Benadryl pump at 15 mg/h at home.
-baclofen continued
-sinemet continued
-episodes with vasovagal response when trying to have a BM - start standing miralax and colace BID
Chronic pain syndrome-on high doses of narcotics (chronic opioid use with dependence) including p.o. Dilaudid and Suboxone at home. Again unclear the source of her pain.
GERD
-famotidine continued
-acipHex continued
-simethicone continued
iron def anemia
-ferrous sulfate continued
hxt of tachycardia
-EKG with sinus tachycardia
-propranolol continued
Chronic Nausea / Esophageal Dysmotility/gastroparesis
History GJ tube
�- Continue diet as tolerated.
�- Continue G-tube to gravity for chronic nausea.
�- Meds via J-tube.
-Zofran every 8 hours as needed
-Continue Pepcid
-emend continued
- PEG tube site without any signs of cellulitis. CT of the abdomen pelvis shows no subcutaneous collection around the PEG tube and it is in place.
Acute fractures of the left 6 anterolateral 6th and 7th ribs
-Suspect from recent fall on 10/03
-10/25 complains of pain on the posterolateral lower ribs
-Continue lidocaine patch, add heating packs
Steroid-Induced DM-II--
She remains on steady dose of prednisone
Blood glucose remains marginal
Monitor oral intake
Reduce Lantus and NovoLog AC
Continue serial Accu-Cheks with basal bolus protocol.
S/p fall overnight 10/03-10/04
imaging negative for bleed or fracture
Steroid-Induced Osteoporosis
Chronic Pain Syndrome secondary to the above on chronic opiates
�- Continue buprenorphine 2 mg 4 times daily , Dilaudid 8 mg as needed
�- PT / OT evaluations.
�- Follow-up with usual customer solutions specialist after discharge.
allergy induced asthma
chronic hypoxic respiratory failure--on O2
-albuterol continued
-budesonide continued
-cetirizine continued
-cromolyn continued
Thrush
Completed course of clotrimazole Troches for thrush
Migraine Hx
ODT Nurtec as needed
Restless leg syndrome
-Continue baclofen
History of DVT/PE
#Takes subcu Lovenox 100 mg twice daily
DNR on admission
Disposition: Discussion with primary infant childcare provider Dr. Ethan Villanueva on 10/09. Discussed possibility of attempting weaning Benadryl drip likely could be done as outpatient. With current family social situation, unfortunately there is no options
for disposition other than home on IV infusion. Possibility of a transfer to [facility] discussed as well, although according to Dr. Villanueva hospital administration declined services due to complexity. Also discussed possibility of
transfer to tertiary center ([facility] declined in the past).
10/[address] Villanueva over the phone as well as [facility] transfer center.
Complex patient. Attempt to wean off Benadryl drip over the last 2 weeks with persistent dystonic episodes
While patient is relatively stable with her current condition, given complex clinical picture requiring multi disciplinary approach not limited to medicine, hematology, allergology, as well as neuropsychiatric assessment, patient would be better
served at a tertiary facility. Patient was accepted to [facility] for transfer, but hospital administration denied her transfer due to complexity (discussed with patient who is aware)
Anticipated Discharge: > 48 hours
Subjective/Interval History
-
Date of Service: November 29, 2023
Objective Data
-
Vital Signs:
Vital Signs
Temp Pulse Resp BP Pulse Ox
97.8 F 104 18 123/86 95
11/29/23 11:16 11/29/23 12:00 11/29/23 12:00 11/29/23 12:00 11/29/23 12:00
I&O
11/28/23 11/29/23 11/30/23
06:59 06:59 06:59
Intake Total 960 / 960 398 / 398
Output Total 1800 / 1800 1100 / 1100
Balance -840 / -840 -702 / -702
Physical Exam
-
General: Well Developed and No Apparent Distress
HEENT: Normocephalic, Atraumatic and Moist Mucous Membranes
Respiratory: Clear to Auscultation
Cardiac: Regular Rhythm and S1/S2; Negative Murmur, Rub or Gallop
GI: Soft, Nontender, Nondistended and Normal Bowel Sounds; Negative Organomegaly
Rectal: Deferred by Provider
Musculoskeletal: No Clubbing, No Cyanosis and No Edema
Skin: Negative Rash
Neuro: Nonfocal/Grossly Intact
[2023-11-29] MEDS: NON-FORMULARY ITEM 200 MG PO (14:31)
[2023-11-29] MEDS: SINEMET 25-100 2 TABLET TUBE ×2 (14:32→18:16)
--- NOTE | 2023-11-29 15:47 | CHAP ---
Visited Mary at 9:20. She was struggling today, feeling the weight of many problems and much hurt, along with the stress of a very lengthy hospital stay. She shared her thoughts and feelings with tears. Emotional and spiritual support provided.
[2023-11-29 16:00] VITALS: BP 115/70
[2023-11-29 17:47] LABS: Glucose - Point of Care 124 mg/dl (70-99)
[2023-11-29] MEDS: ZOFRAN 4 MG IV (18:04)
[2023-11-29] MEDS: ZYRTEC 10 MG TUBE ×2 (18:15→21:10)
[2023-11-29 20:00] VITALS: BP 114/79
[2023-11-29] MEDS: FEOSOL 325 MG PO (21:12)
[2023-11-29] MEDS: COLACE 100 MG PO (21:13)
[2023-11-29 21:39] LABS: Glucose - Point of Care 142 mg/dl (70-99)
--- NOTE | 2023-11-29 22:37 | PTCARENOTE ---
As patient was washing her face at bedtime, stated she had 'an aura that her dystonia episode is about to start'. IVPB Benadryl obtained, as RN came back into room pt with dystonia episode taking place; eyes rolled back, stiff extremities with
decorticate posturing, neck flexed back wards. Sp02 WNL during episode. Pt able to speak throughout. Episode lasted about 10-15min. No wheezing or stridor present. HOB 30 degrees. Ice pack applied to neck. Purewick in place. Emotional support given,
pt appreciative. Call sanchez /tray table within reach. Med sitter at bedside for safety. Spoke with med sitter, aware pt is having an episode at this time.
[2023-11-30] VITALS (7 sets, daily range): BP systolic 99–128; BP diastolic 53–96; PULSE 92; O2SAT 95
[2023-11-30] MEDS: BENADRYL 250 MG IV (01:45)
[2023-11-30] MEDS: ATIVAN 1 MG SL ×6 (01:45→21:06)
[2023-11-30] MEDS: BENADRYL SOLUTION 25 MG TUBE ×6 (01:46→21:04)
[2023-11-30] MEDS: SINEMET 25-100 1.5 TABLET TUBE ×2 (04:56→09:49)
[2023-11-30] MEDS: LIORESAL 10 MG TUBE ×3 (04:56→21:06)
[2023-11-30] MEDS: BENADRYL 50.5 MG IV ×3 (05:24→16:24)
[2023-11-30] MEDS: DUONEB 3 ML INH ×2 (08:09→19:59)
[2023-11-30] MEDS: PULMICORT 0.5 MG INH ×2 (08:09→19:59)
[2023-11-30] MEDS: NSS (PRESERVATIVE FREE) 6 ML IV ×2 (08:48→21:08)
[2023-11-30] MEDS: INDERAL 10 MG TUBE ×3 (08:49→21:06)
[2023-11-30] MEDS: VITAMIN B1 100 MG TUBE (08:49)
[2023-11-30] MEDS: LOVENOX 100 MG SC ×2 (08:49→21:05)
[2023-11-30] MEDS: PEPCID 40 MG IV ×2 (08:49→21:07)
[2023-11-30] MEDS: HYDREA 500 MG PO ×2 (08:50→21:06)
[2023-11-30] MEDS: GASTROCROM 300 MG PO ×4 (08:50→21:04)
[2023-11-30] MEDS: LIDOCAINE 4% PATCH 1 PATCH TOPICAL (08:50)
[2023-11-30] MEDS: DELTASONE 10 MG TUBE ×2 (08:50→21:05)
[2023-11-30] MEDS: MIRALAX 17 GRAMS TUBE (08:51)
[2023-11-30] MEDS: COLACE PO ×2 (08:51→09:40)
[2023-11-30] MEDS: CLARITIN 10 MG TUBE (08:51)
[2023-11-30] MEDS: DESENEX/MITRAZOL/ZEASORB 1 APPLIC TOPICAL ×2 (08:51→21:08)
[2023-11-30] MEDS: SUBUTEX 2 MG SL ×4 (08:51→21:06)
[2023-11-30] MEDS: NOVOLOG FLEXPEN-LOW RESISTANCE SC ×3 (08:52→18:05)
[2023-11-30] MEDS: ZOFRAN 4 MG IV ×2 (08:58→21:13)
[2023-11-30 09:18] LABS: Glucose - Point of Care 75 mg/dl (70-99)
[2023-11-30] MEDS: NOVOLOG FLEXPEN SC (09:34)
[2023-11-30] MEDS: LANTUS 0.1 UNITS SC (09:34)
[2023-11-30] MEDS: NON-FORMULARY ITEM 1 UNIT PO ×2 (09:38→21:10)
[2023-11-30] MEDS: NON-FORMULARY ITEM 1 MG PO ×2 (09:38→21:09)
[2023-11-30] MEDS: NON-FORMULARY ITEM PO (09:40)
[2023-11-30] MEDS: NON-FORMULARY ITEM NASAL (09:40)
[2023-11-30] MEDS: ZADITOR 1 DROP BOTH EYES ×2 (09:41→21:07)
--- NOTE | 2023-11-30 11:23 | W.PN.HOSP.TC ---
Today's Communication/Plan
-
cw current tx
Assessment / Plan
Assessment / Plan
Impression:
Gram-negative bacteremia due to chronic infected PICC line.
Fever on admission with no evidence of sepsis (tachycardia likely fever mediated)
Conditions prior to admission:
1. Mast cell activation syndrome.
2. Chronic dystonic reaction.
3. Orthostatic hypotension with postural orthostatic and
tachycardia syndrome.
4. Dopa sensitive dystonia.
5. Steroid-induced diabetes.
6. Prior history of deep venous thrombosis and pulmonary embolism.
7. Chronic pain syndrome.
8. Migraine headaches.
9. Gastroesophageal reflux disease.
10. Benzodiazepine and opiate dependence.
11. Restless legs syndrome.
12. Insomnia.
13. History of vocal cord dysfunction.
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
15. Gastroparesis.
16. 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
17. 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
Plan:
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
PICC line removed and PICC line replaced on 09/23
Repeated blood cultures negative on 09/20 but no other cultures obtained
Finished cipro on 10/06/23 (was on 750mg BID)
GJ tube in place
Replaced by interventional radiology on 09/22
Replaced by interventional radiology 11/04 due to concern leakage
HX Recurrent Anaphylaxis / Mast Cell Flare Episodes on chronic steroids
Mast Cell Activation Syndrome
DOPA-Responsive Dystonia
-follows with Dr. Lizabeth Villanueva at [facility] hematology.
- Continue Ativan
�-cont Gleevac ,steroids
�--Levalbuterol as needed, to do her eyedrops
-Continue carbidopa levodopa
-prednisone continued
-Outpatient IV Benadryl drip at 15 milligram an hour upon presentation. As discussed with primary fashion stylist Dr. Mora plan is to slowly taper. Decreased Benadryl drip down to 9 mg an hour on 11/18.
Multiple conversations with patient almost on a daily basis in regards to goals of care including attempt to wean off Benadryl drip with possibly substitution to oral regimen to facilitate discharge as well as outpatient management. Patient has
been resistant to wean off Benadryl drip completely at this point.
11/26. Multidisciplinary meeting including psychiatry, clinical pharmacy, medicine, nursing.
Patient clinical course along with medication regimen has been reviewed.
With the goal of minimize exposure to IV medications and optimize regimen following changes implemented:
-Daily IV fluids discontinued with plan to monitor oral intake and orthostatics.
� IV Benadryl pushes have been discontinued.
� Lorazepam sublingual as needed order has been discontinued.
IV lorazepam has been discontinued
Hydromorphone oral 8 mg every 3 hours order has been discontinued.
Initiated:
Benadryl 25 mg infusion through piggyback will be provided over 10 minutes for breakthrough dystonic attack.
Benadryl p.o. 25 mg will be scheduled every 4 hours.
Lorazepam sublingual 1 mg with the scheduled while awake every 4 hours.
Hydromorphone p.o. 8 mg will be continued every 6 hours as needed for severe pain along with Suboxone.
dystonia/movement disorder-patient apparently has dystonic features with her mast cell activation syndrome. I could not find in literature as a routine clinical presentation but according to patient apparently this is very unusual feature which was
noted in few other patients . She was on IV Benadryl pump at 15 mg/h at home.
-baclofen continued
-sinemet continued
-episodes with vasovagal response when trying to have a BM - start standing miralax and colace BID
Chronic pain syndrome-on high doses of narcotics (chronic opioid use with dependence) including p.o. Dilaudid and Suboxone at home. Again unclear the source of her pain.
GERD
-famotidine continued
-acipHex continued
-simethicone continued
iron def anemia
-ferrous sulfate continued
hxt of tachycardia
-EKG with sinus tachycardia
-propranolol continued
Chronic Nausea / Esophageal Dysmotility/gastroparesis
History GJ tube
�- Continue diet as tolerated.
�- Continue G-tube to gravity for chronic nausea.
�- Meds via J-tube.
-Zofran every 8 hours as needed
-Continue Pepcid
-emend continued
- PEG tube site without any signs of cellulitis. CT of the abdomen pelvis shows no subcutaneous collection around the PEG tube and it is in place.
Acute fractures of the left 6 anterolateral 6th and 7th ribs
-Suspect from recent fall on 10/03
-10/25 complains of pain on the posterolateral lower ribs
-Continue lidocaine patch, add heating packs
Steroid-Induced DM-II--
She remains on steady dose of prednisone
Blood glucose remains marginal
Monitor oral intake
Reduce Lantus and NovoLog AC
Continue serial Accu-Cheks with basal bolus protocol.
S/p fall overnight 10/03-10/04
imaging negative for bleed or fracture
Steroid-Induced Osteoporosis
Chronic Pain Syndrome secondary to the above on chronic opiates
�- Continue buprenorphine 2 mg 4 times daily , Dilaudid 8 mg as needed
�- PT / OT evaluations.
�- Follow-up with usual waste management specialist after discharge.
allergy induced asthma
chronic hypoxic respiratory failure--on O2
-albuterol continued
-budesonide continued
-cetirizine continued
-cromolyn continued
Thrush
Completed course of clotrimazole Troches for thrush
Migraine Hx
ODT Nurtec as needed
Restless leg syndrome
-Continue baclofen
History of DVT/PE
#Takes subcu Lovenox 100 mg twice daily
DNR on admission
Disposition: Discussion with primary fashion stylist Dr. Ethan Villanueva on 10/09. Discussed possibility of attempting weaning Benadryl drip likely could be done as outpatient. With current family social situation, unfortunately there is no options
for disposition other than home on IV infusion. Possibility of a transfer to [facility] discussed as well, although according to Dr. Villanueva hospital administration declined services due to complexity. Also discussed possibility of
transfer to tertiary center ([facility] declined in the past).
10/[address] Villanueva over the phone as well as [facility] [place] transfer [facility].
Complex patient. Attempt to wean off Benadryl drip over the last 2 weeks with persistent dystonic episodes
While patient is relatively stable with her current condition, given complex clinical picture requiring multi disciplinary approach not limited to medicine, hematology, allergology, as well as neuropsychiatric assessment, patient would be better
served at a tertiary facility. Patient was accepted to [facility] for transfer, but hospital administration denied her transfer due to complexity (discussed with patient who is aware)
11/29 - no new issues. cw current tx . DW RN. Dr Kirk to resume care tomorrow.
Anticipated Discharge: > 48 hours
Subjective/Interval History
-
Date of Service: November 30, 2023
Feels fatigued
Objective Data
-
Vital Signs:
Vital Signs
Temp Pulse Resp BP Pulse Ox
98.3 F 80 18 111/78 98
11/30/23 07:25 11/30/23 08:49 11/30/23 08:11 11/30/23 08:49 11/30/23 08:11
I&O
11/29/23 11/30/23 12/01/23
06:59 06:59 06:59
Intake Total 398 / 398 100 / 100
Output Total 1100 / 1100 3250 / 3250
Balance -702 / -702 -3150 / -3150
Review of Systems
-
Respiratory: Denies Trouble Breathing
Cardiac: Denies Chest Pain
Abdomen/GI: Denies Nausea or Vomiting
Neuro: Denies Dizzy
Physical Exam
-
General: No Apparent Distress
HEENT: Moist Mucous Membranes
Respiratory: Non Labored Respirations; Negative Accessory Resp Muscle Use
Cardiac: Regular Rhythm and S1/S2
GI: Soft
Neuro: AO x 3
[2023-11-30] MEDS: NSS 1000 IV (11:53)
[2023-11-30 12:11] LABS: Glucose - Point of Care 118 mg/dl (70-99)
[2023-11-30] MEDS: NOVOLOG FLEXPEN 3 UNITS SC ×2 (12:32→18:06)
--- NOTE | 2023-11-30 12:48 | PTCARENOTE ---
Pt w/ 30 minutes of dystonia episode. IVPB bag of Benadryl hung. Stayed w/ patient to offer support. VSS.
[2023-11-30] MEDS: NON-FORMULARY ITEM 200 MG PO (13:16)
[2023-11-30] MEDS: SINEMET 25-100 2 TABLET TUBE ×2 (13:31→18:05)
[2023-11-30] MEDS: ZYRTEC 10 MG TUBE ×2 (16:26→21:05)
--- NOTE | 2023-11-30 16:34 | PTCARENOTE ---
Pt assisted OOB w/ PT. Walked to BR, pt sat on toliet, pt brushed teeth, this RN helped w/ perineal care. Pt was then put in to chair. Starting immediately having a aura, followed by dystonia episode, PRN Benadryl IVPB started. Support offered, pt
kept safe. Monitoring VS.
[2023-11-30 18:08] LABS: Glucose - Point of Care 107 mg/dl (70-99)
[2023-11-30] MEDS: NON-FORMULARY ITEM 1 UNIT VAG (19:04)
[2023-11-30] MEDS: FEOSOL 325 MG PO (21:04)
[2023-11-30] MEDS: COLACE 100 MG PO (21:05)
[2023-11-30 22:12] LABS: Glucose - Point of Care 97 mg/dl (70-99)
[2023-12-01] VITALS (7 sets, daily range): BP systolic 84–123; BP diastolic 48–80
[2023-12-01] MEDS: BENADRYL 250 MG IV (00:08)
[2023-12-01] MEDS: ATIVAN 1 MG SL ×7 (00:08→23:59)
[2023-12-01] MEDS: BENADRYL 50.5 MG IV ×4 (00:15→23:59)
[2023-12-01] MEDS: BENADRYL SOLUTION 25 MG TUBE ×6 (03:26→21:17)
[2023-12-01] MEDS: SINEMET 25-100 1.5 TABLET TUBE ×2 (06:14→09:18)
[2023-12-01] MEDS: LIORESAL 10 MG TUBE ×3 (06:14→21:19)
--- NOTE | 2023-12-01 06:38 | PTCARENOTE ---
Patient had one dystonia episode overnight around midnight. IVPB Benadryl provided. No stridor or wheezing present. Pt able to speak throughout episode. Ice pack given for comfort. Thankful for care. Benadryl gtt continues per JUL. Call sanchez and
tray table within reach. Med sitter at bedside for safety.
[2023-12-01] MEDS: PULMICORT 0.5 MG INH ×2 (07:58→19:34)
[2023-12-01 08:30] LABS: Glucose - Point of Care 89 mg/dl (70-99)
[2023-12-01] MEDS: LOVENOX 100 MG SC ×2 (09:10→21:13)
[2023-12-01] MEDS: NOVOLOG FLEXPEN-LOW RESISTANCE SC ×3 (09:10→17:59)
[2023-12-01] MEDS: LANTUS 0.1 UNITS SC (09:11)
[2023-12-01] MEDS: PEPCID 40 MG IV ×2 (09:12→21:15)
[2023-12-01] MEDS: NSS (PRESERVATIVE FREE) 6 ML IV ×2 (09:12→21:15)
[2023-12-01] MEDS: GASTROCROM 300 MG PO ×4 (09:14→21:18)
[2023-12-01] MEDS: LIDOCAINE 4% PATCH 1 PATCH TOPICAL (09:14)
[2023-12-01] MEDS: MIRALAX TUBE (09:16)
[2023-12-01] MEDS: COLACE PO ×2 (09:16→21:10)
[2023-12-01] MEDS: NOVOLOG FLEXPEN SC ×2 (09:16→09:47)
[2023-12-01] MEDS: ZADITOR 1 DROP BOTH EYES ×2 (09:16→21:16)
[2023-12-01] MEDS: HYDREA 500 MG PO ×2 (09:17→21:11)
[2023-12-01] MEDS: INDERAL 10 MG TUBE ×3 (09:18→21:19)
[2023-12-01] MEDS: CLARITIN 10 MG TUBE (09:19)
[2023-12-01] MEDS: VITAMIN B1 100 MG TUBE (09:19)
[2023-12-01] MEDS: DELTASONE 10 MG TUBE ×2 (09:20→21:10)
[2023-12-01] MEDS: SUBUTEX 2 MG SL ×4 (09:20→21:19)
[2023-12-01] MEDS: NON-FORMULARY ITEM PO (09:22)
[2023-12-01] MEDS: DESENEX/MITRAZOL/ZEASORB 1 APPLIC TOPICAL ×2 (09:22→21:11)
[2023-12-01] MEDS: NON-FORMULARY ITEM 1 MG PO ×2 (09:23→21:12)
[2023-12-01] MEDS: NON-FORMULARY ITEM NASAL (09:24)
[2023-12-01] MEDS: NON-FORMULARY ITEM 1 UNIT PO ×2 (09:24→21:13)
[2023-12-01] MEDS: ZOFRAN 4 MG IV (09:31)
[2023-12-01 12:36] LABS: Glucose - Point of Care 111 mg/dl (70-99)
[2023-12-01] MEDS: NOVOLOG FLEXPEN 3 UNITS SC ×2 (12:54→17:59)
[2023-12-01] MEDS: SINEMET 25-100 2 TABLET TUBE ×2 (15:11→17:51)
[2023-12-01] MEDS: NON-FORMULARY ITEM 200 MG PO (15:12)
--- NOTE | 2023-12-01 16:23 | CM ---
Patient with Hx Mast Cell Activation Syndrome, dystonia/movement disorder, chronic pain syndrome, gastroparesis with Dx Gram-negative bacteremia due to chronic infected PICC line. Receiving IV Benadryl gtt. GJ tube in place. Seen by Psych.
Medsitter per nursing. PT 11/29 recommends HH. OT 11/25 recommends skilled vs home.
Received phone call from Roslyn Ferreira, Visually Impaired Teacher [facility] (ph [phone]); she received a text from the patient today that her stepfather has secured an apartment for her with tentative move in date 01/10/24.
Leni had a request from [facility], cigar patcher [employer] to authorize an additional VN agency for nurse backup at home, in case there is a shift [employer] cannot cover. Roslyn is working on finding a second agency and will probably contact [facility].
Phone call to Jl Silva, stepfather (ph [phone]); left message requesting callback to confirm housing arrangements.
Request from Directors to make another request for interim placement at LTAC while waiting for housing. Agree to ask patient if she would agree to go to LTAC.
Spoke with nurse Kareem; patient's Benadryl continues to be weaned down and she is at 8mg today. The patient had 2 episodes of dystonia today.
Met with patient who confirms that her stepfather informed her that the application was approved for a one bedroom apartment at [facility], with tentative move in date 01/10/24. Asked patient if she would be amenable to go to an LTAC and she
asked where the LTACs were located- mentioned 3 facilities. She would like to discuss with her father Jonel.
Phone call to Jonel Weston, father (ph [phone]); left 2 messages requesting callback for d/c planning.
Plan d/c to apartment 01/09 with [facility], with resumption of 24-hr nurse caregivers, possibly with resumption home infusion, once housing is available vs d/c to LTAC.
--- NOTE | 2023-12-01 16:25 | W.PN.HOSP.TC ---
Today's Communication/Plan
-
Titrate Benadryl drip to 8 mg/h.
Assessment / Plan
Assessment / Plan
Impression:
Gram-negative bacteremia due to chronic infected PICC line.
Fever on admission with no evidence of sepsis (tachycardia likely fever mediated)
Conditions prior to admission:
1. Mast cell activation syndrome.
2. Chronic dystonic reaction.
3. Orthostatic hypotension with postural orthostatic and
tachycardia syndrome.
4. Dopa sensitive dystonia.
5. Steroid-induced diabetes.
6. Prior history of deep venous thrombosis and pulmonary embolism.
7. Chronic pain syndrome.
8. Migraine headaches.
9. Gastroesophageal reflux disease.
10. Benzodiazepine and opiate dependence.
11. Restless legs syndrome.
12. Insomnia.
13. History of vocal cord dysfunction.
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
15. Gastroparesis.
16. 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
17. 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
Plan:
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
PICC line removed and PICC line replaced on 09/23
Repeated blood cultures negative on 09/20 but no other cultures obtained
Finished cipro on 10/06/23 (was on 750mg BID)
GJ tube in place
Replaced by interventional radiology on 09/22
Replaced by interventional radiology 11/04 due to concern leakage
HX Recurrent Anaphylaxis / Mast Cell Flare Episodes on chronic steroids
Mast Cell Activation Syndrome
DOPA-Responsive Dystonia
-follows with Dr. Lizabeth Villanueva at [facility] hematology.
- Continue Ativan
�-cont Gleevac ,steroids
�--Levalbuterol as needed, to do her eyedrops
-Continue carbidopa levodopa
-prednisone continued
-Outpatient IV Benadryl drip at 15 milligram an hour upon presentation. As discussed with primary verifying machine operator Dr. Mora plan is to slowly taper. Decreased Benadryl drip down to 8 mg an hour on 11/30
Multiple conversations with patient almost on a daily basis in regards to goals of care including attempt to wean off Benadryl drip with possibly substitution to oral regimen to facilitate discharge as well as outpatient management. Patient has
been resistant to wean off Benadryl drip completely at this point.
11/26. Multidisciplinary meeting including psychiatry, clinical pharmacy, medicine, nursing.
Patient clinical course along with medication regimen has been reviewed.
With the goal of minimize exposure to IV medications and optimize regimen following changes implemented:
-Daily IV fluids discontinued with plan to monitor oral intake and orthostatics.
� IV Benadryl pushes have been discontinued.
� Lorazepam sublingual as needed order has been discontinued.
IV lorazepam has been discontinued
Hydromorphone oral 8 mg every 3 hours order has been discontinued.
Initiated:
Benadryl 25 mg infusion through piggyback will be provided over 10 minutes for breakthrough dystonic attack.
Benadryl p.o. 25 mg will be scheduled every 4 hours.
Lorazepam sublingual 1 mg with the scheduled while awake every 4 hours.
Hydromorphone p.o. 8 mg will be continued every 6 hours as needed for severe pain along with Suboxone.
dystonia/movement disorder-patient apparently has dystonic features with her mast cell activation syndrome. I could not find in literature as a routine clinical presentation but according to patient apparently this is very unusual feature which was
noted in few other patients . She was on IV Benadryl pump at 15 mg/h at home.
-baclofen continued
-sinemet continued
-episodes with vasovagal response when trying to have a BM - start standing miralax and colace BID
Chronic pain syndrome-on high doses of narcotics (chronic opioid use with dependence) including p.o. Dilaudid and Suboxone at home. Again unclear the source of her pain.
GERD
-famotidine continued
-acipHex continued
-simethicone continued
iron def anemia
-ferrous sulfate continued
hxt of tachycardia
-EKG with sinus tachycardia
-propranolol continued
Chronic Nausea / Esophageal Dysmotility/gastroparesis
History GJ tube
�- Continue diet as tolerated.
�- Continue G-tube to gravity for chronic nausea.
�- Meds via J-tube.
-Zofran every 8 hours as needed
-Continue Pepcid
-emend continued
- PEG tube site without any signs of cellulitis. CT of the abdomen pelvis shows no subcutaneous collection around the PEG tube and it is in place.
Acute fractures of the left 6 anterolateral 6th and 7th ribs
-Suspect from recent fall on 10/03
-10/25 complains of pain on the posterolateral lower ribs
-Continue lidocaine patch, add heating packs
Steroid-Induced DM-II--
She remains on steady dose of prednisone
Blood glucose remains marginal
Monitor oral intake
Reduce Lantus and NovoLog AC
Continue serial Accu-Cheks with basal bolus protocol.
S/p fall overnight 10/03-10/04
imaging negative for bleed or fracture
Steroid-Induced Osteoporosis
Chronic Pain Syndrome secondary to the above on chronic opiates
�- Continue buprenorphine 2 mg 4 times daily , Dilaudid 8 mg as needed
�- PT / OT evaluations.
�- Follow-up with usual refund specialist after discharge.
allergy induced asthma
chronic hypoxic respiratory failure--on O2
-albuterol continued
-budesonide continued
-cetirizine continued
-cromolyn continued
Thrush
Completed course of clotrimazole Troches for thrush
Migraine Hx
ODT Nurtec as needed
Restless leg syndrome
-Continue baclofen
History of DVT/PE
#Takes subcu Lovenox 100 mg twice daily
DNR on admission
Disposition: Discussion with primary verifying machine operator Dr. Ethan Villanueva on 10/09. Discussed possibility of attempting weaning Benadryl drip likely could be done as outpatient. With current family social situation, unfortunately there is no options
for disposition other than home on IV infusion. Possibility of a transfer to [facility] discussed as well, although according to Dr. Villanueva hospital administration declined services due to complexity. Also discussed possibility of
transfer to tertiary center ([facility] declined in the past).
10/[address] Villanueva over the phone as well as [facility] transfer center.
Complex patient. Attempt to wean off Benadryl drip over the last 2 weeks with persistent dystonic episodes
While patient is relatively stable with her current condition, given complex clinical picture requiring multi disciplinary approach not limited to medicine, hematology, allergology, as well as neuropsychiatric assessment, patient would be better
served at a tertiary facility. Patient was accepted to [facility] for transfer, but hospital administration denied her transfer due to complexity (discussed with patient who is aware)
Anticipated Discharge: > 48 hours
Subjective/Interval History
-
Date of Service: December 01, 2023
Objective Data
-
Vital Signs:
Vital Signs
Temp Pulse Resp BP Pulse Ox
97.5 F 102 12 105/48 97
12/01/23 11:10 12/01/23 15:12 12/01/23 14:00 12/01/23 15:12 12/01/23 14:00
I&O
11/30/23 12/01/23 12/02/23
06:59 06:59 06:59
Intake Total 100 / 100 630 / 630
Output Total 3250 / 3250 1250 / 1250 550 / 550
Balance -3150 / -3150 -620 / -620 -550 / -550
Physical Exam
-
General: No Apparent Distress
HEENT: Moist Mucous Membranes
Respiratory: Non Labored Respirations; Negative Accessory Resp Muscle Use
Cardiac: Regular Rhythm and S1/S2
GI: Soft
Neuro: Awake, Alert, Oriented and AO x 3
[2023-12-01] MEDS: ZYRTEC 10 MG TUBE ×2 (17:51→21:20)
[2023-12-01 18:09] LABS: Glucose - Point of Care 112 mg/dl (70-99)
--- NOTE | 2023-12-01 18:11 | PTCARENOTE ---
Patient status consistent with previous assessments. 1L NC, sats 95%. VSS. GJ tube dressing changed today after leakage. Benadryl weaned to 8ml/hr at 1400. Patient had 2 episodes requiring PRN benadryl infusion today @ 0950 and 1350. NSR on monitor.
Patient making needs known. Medsitter and bed alarm in place for patient safety. Continuing to closely monitor.
[2023-12-01] MEDS: FEOSOL 325 MG PO (21:17)
[2023-12-01 21:41] LABS: Glucose - Point of Care 121 mg/dl (70-99)
[2023-12-02] VITALS (8 sets, daily range): BP systolic 106–126; BP diastolic 66–82; PULSE 115
[2023-12-02] MEDS: BENADRYL 250 MG IV (02:39)
[2023-12-02] MEDS: BENADRYL SOLUTION 25 MG TUBE ×6 (02:40→21:29)
[2023-12-02] MEDS: LIORESAL 10 MG TUBE ×3 (05:52→21:16)
[2023-12-02] MEDS: ATIVAN 1 MG SL ×6 (05:52→23:46)
[2023-12-02] MEDS: SINEMET 25-100 1.5 TABLET TUBE ×2 (05:53→09:09)
[2023-12-02] MEDS: ZOFRAN 4 MG IV ×2 (05:57→12:33)
[2023-12-02] MEDS: BENADRYL 50.5 MG IV ×4 (05:57→23:46)
[2023-12-02] MEDS: PULMICORT 0.5 MG INH ×2 (07:19→20:22)
[2023-12-02 08:13] LABS: Glucose - Point of Care 84 mg/dl (70-99)
[2023-12-02] MEDS: NOVOLOG FLEXPEN-LOW RESISTANCE SC ×3 (08:27→16:40)
[2023-12-02] MEDS: GASTROCROM 300 MG PO ×4 (08:29→21:18)
[2023-12-02] MEDS: LOVENOX 100 MG SC ×2 (08:29→21:12)
[2023-12-02] MEDS: NSS (PRESERVATIVE FREE) 6 ML IV ×2 (08:30→21:13)
[2023-12-02] MEDS: PEPCID 40 MG IV ×2 (08:30→21:13)
[2023-12-02] MEDS: INDERAL 10 MG TUBE ×3 (08:31→21:15)
[2023-12-02] MEDS: DELTASONE 10 MG TUBE ×2 (08:31→21:15)
[2023-12-02] MEDS: HYDREA 500 MG PO ×2 (08:31→21:12)
[2023-12-02] MEDS: VITAMIN B1 100 MG TUBE (08:31)
[2023-12-02] MEDS: CLARITIN 10 MG TUBE (08:31)
[2023-12-02] MEDS: NON-FORMULARY ITEM 1 MG PO ×2 (08:32→21:21)
[2023-12-02] MEDS: NON-FORMULARY ITEM 1 UNIT PO ×2 (08:34→21:20)
[2023-12-02] MEDS: ZADITOR 1 DROP BOTH EYES ×2 (08:34→21:21)
[2023-12-02] MEDS: SUBUTEX 2 MG SL ×4 (08:36→21:11)
[2023-12-02] MEDS: LANTUS 0.1 UNITS SC (08:36)
[2023-12-02] MEDS: LIDOCAINE 4% PATCH 1 PATCH TOPICAL (08:37)
[2023-12-02] MEDS: DESENEX/MITRAZOL/ZEASORB 1 APPLIC TOPICAL ×2 (08:37→21:16)
[2023-12-02] MEDS: MIRALAX TUBE (08:58)
[2023-12-02] MEDS: NOVOLOG FLEXPEN SC ×3 (08:58→20:14)
[2023-12-02] MEDS: NON-FORMULARY ITEM NASAL (08:58)
[2023-12-02] MEDS: COLACE PO (08:58)
[2023-12-02] MEDS: NON-FORMULARY ITEM PO (08:59)
--- NOTE | 2023-12-02 09:16 | CM ---
Late entry for 12/01/2023 at 5:15 pm, received call from Bobby Ontiveros, Mary's Mother. She stated Mary had called her in regards to the subject of possible going to an LTAC while she awaits her apartment becoming available on 01/10/24. I stated the
had discussed this possible plan with Mary in regards to seeing if an LTAC would accept her now that there is a disposition of her going to an apartment with 09/12 care authorized by [facility]. She stated that they also asked [facility]
to secure an additional PDN agency to use as a back-up should current agency not be able to staff a shift. She also went on to state that [facility] was in the process of working with [facility] to secure staffing , so that once apartment
becomes available , they will be ready to assume care.
Bobby Vanegasmiquel went on to state the parents have concerns regarding the weaning of the IV Benedryl and other medications and how it is affectine Mary. She went on to state that Mary and them had spoken to Dr. Kwong recently. He apparently had been
on vacation but told them he had not received any recent calls from her physician here in regards to the weaning of these medications. I stated that our physician had spoken to Dr. Kwong during this admission and I was not sure of the exact date.
I stated if they felt that Dr. Kwong could better manage her Daughters care then they could speak to Dr. Kwong in regards to having him speak to Administration at [facility] to accept her in transfer or they can allow Mary to return to her
Mother's home with resumption of the care that she was on prior to this hospital stay and have Dr. Kwong manage her care as an outpt.
Bobby Rominamiquel stated that Mary does not want to go to an LTAC while she awaits her apartment to be available. I told the her that by weaning some of her medications and identify a safe discharge for Mary where she can be safely cared for we are
trying to increase the quality of her life. I explained the difference between an LTAC vs correction care in a correction facility. I stated that an LTAC is licensed as an Acute Care Hospital and can offer the same services that we can here. She
stated that her was going to return the call of the CM regarding Mary's housing , but asked if she needs to call him back to please have her call after 9:30am. Update to CM and Hospitalist
--- NOTE | 2023-12-02 09:54 | PTCARENOTE ---
Assumed care of pt at 0645 from shift lab technician RN. Pt AAOx3. NSR on ekg monitor tech. HRs 80-90s. SaO2 96% on 1L nasal cannula. VSS. Benadryl infusion remains at 8mL/hr through LUE triple lumen PICC. G-J dressing CDI. Assessment documented. Pt resting
in bed, call sanchez within reach.
[2023-12-02] MEDS: NOVOLOG FLEXPEN 3 UNITS SC (12:33)
[2023-12-02 12:38] LABS: Glucose - Point of Care 122 mg/dl (70-99)
[2023-12-02] MEDS: NON-FORMULARY ITEM 200 MG PO (14:02)
[2023-12-02] MEDS: SINEMET 25-100 2 TABLET TUBE ×2 (14:02→18:03)
--- NOTE | 2023-12-02 14:10 | W.PN.HOSP.TC ---
Today's Communication/Plan
-
Continue current care including Benadryl drip
Assessment / Plan
Assessment / Plan
Impression:
Gram-negative bacteremia due to chronic infected PICC line.
Fever on admission with no evidence of sepsis (tachycardia likely fever mediated)
Conditions prior to admission:
1. Mast cell activation syndrome.
2. Chronic dystonic reaction.
3. Orthostatic hypotension with postural orthostatic and
tachycardia syndrome.
4. Dopa sensitive dystonia.
5. Steroid-induced diabetes.
6. Prior history of deep venous thrombosis and pulmonary embolism.
7. Chronic pain syndrome.
8. Migraine headaches.
9. Gastroesophageal reflux disease.
10. Benzodiazepine and opiate dependence.
11. Restless legs syndrome.
12. Insomnia.
13. History of vocal cord dysfunction.
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
15. Gastroparesis.
16. 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
17. 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
Plan:
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
PICC line removed and PICC line replaced on 09/23
Repeated blood cultures negative on 09/20 but no other cultures obtained
Finished cipro on 10/06/23 (was on 750mg BID)
GJ tube in place
Replaced by interventional radiology on 09/22
Replaced by interventional radiology 11/04 due to concern leakage
HX Recurrent Anaphylaxis / Mast Cell Flare Episodes on chronic steroids
Mast Cell Activation Syndrome
DOPA-Responsive Dystonia
-follows with Dr. Lizabeth Villanueva at [facility] hematology.
- Continue Ativan
�-cont Gleevac ,steroids
�--Levalbuterol as needed, to do her eyedrops
-Continue carbidopa levodopa
-prednisone continued
-Outpatient IV Benadryl drip at 15 milligram an hour upon presentation. As discussed with primary gyroscopic instrument mechanic Dr. Mora plan is to slowly taper. Decreased Benadryl drip down to 8 mg an hour on 11/30
Multiple conversations with patient almost on a daily basis in regards to goals of care including attempt to wean off Benadryl drip with possibly substitution to oral regimen to facilitate discharge as well as outpatient management. Patient has
been resistant to wean off Benadryl drip completely at this point.
11/26. Multidisciplinary meeting including psychiatry, clinical pharmacy, medicine, nursing.
Patient clinical course along with medication regimen has been reviewed.
With the goal of minimize exposure to IV medications and optimize regimen following changes implemented:
-Daily IV fluids discontinued with plan to monitor oral intake and orthostatics.
� IV Benadryl pushes have been discontinued.
� Lorazepam sublingual as needed order has been discontinued.
IV lorazepam has been discontinued
Hydromorphone oral 8 mg every 3 hours order has been discontinued.
Initiated:
Benadryl 25 mg infusion through piggyback will be provided over 10 minutes for breakthrough dystonic attack.
Benadryl p.o. 25 mg will be scheduled every 4 hours.
Lorazepam sublingual 1 mg with the scheduled while awake every 4 hours.
Hydromorphone p.o. 8 mg will be continued every 6 hours as needed for severe pain along with Suboxone.
dystonia/movement disorder-patient apparently has dystonic features with her mast cell activation syndrome. I could not find in literature as a routine clinical presentation but according to patient apparently this is very unusual feature which was
noted in few other patients . She was on IV Benadryl pump at 15 mg/h at home.
-baclofen continued
-sinemet continued
-episodes with vasovagal response when trying to have a BM - start standing miralax and colace BID
Chronic pain syndrome-on high doses of narcotics (chronic opioid use with dependence) including p.o. Dilaudid and Suboxone at home. Again unclear the source of her pain.
GERD
-famotidine continued
-acipHex continued
-simethicone continued
iron def anemia
-ferrous sulfate continued
hxt of tachycardia
-EKG with sinus tachycardia
-propranolol continued
Chronic Nausea / Esophageal Dysmotility/gastroparesis
History GJ tube
�- Continue diet as tolerated.
�- Continue G-tube to gravity for chronic nausea.
�- Meds via J-tube.
-Zofran every 8 hours as needed
-Continue Pepcid
-emend continued
- PEG tube site without any signs of cellulitis. CT of the abdomen pelvis shows no subcutaneous collection around the PEG tube and it is in place.
Acute fractures of the left 6 anterolateral 6th and 7th ribs
-Suspect from recent fall on 10/03
-10/25 complains of pain on the posterolateral lower ribs
-Continue lidocaine patch, add heating packs
Steroid-Induced DM-II--
She remains on steady dose of prednisone
Blood glucose remains marginal
Monitor oral intake
Reduce Lantus and NovoLog AC
Continue serial Accu-Cheks with basal bolus protocol.
S/p fall overnight 10/03-10/04
imaging negative for bleed or fracture
Steroid-Induced Osteoporosis
Chronic Pain Syndrome secondary to the above on chronic opiates
�- Continue buprenorphine 2 mg 4 times daily , Dilaudid 8 mg as needed
�- PT / OT evaluations.
�- Follow-up with usual bankruptcy law specialist after discharge.
allergy induced asthma
chronic hypoxic respiratory failure--on O2
-albuterol continued
-budesonide continued
-cetirizine continued
-cromolyn continued
Thrush
Completed course of clotrimazole Troches for thrush
Migraine Hx
ODT Nurtec as needed
Restless leg syndrome
-Continue baclofen
History of DVT/PE
#Takes subcu Lovenox 100 mg twice daily
DNR on admission
Disposition: Discussion with primary gyroscopic instrument mechanic Dr. Ethan Villanueva on 10/09. Discussed possibility of attempting weaning Benadryl drip likely could be done as outpatient. With current family social situation, unfortunately there is no options
for disposition other than home on IV infusion. Possibility of a transfer to [facility] discussed as well, although according to Dr. Villanueva hospital administration declined services due to complexity. Also discussed possibility of
transfer to tertiary center ([facility] declined in the past).
10/[address] Villanueva over the phone as well as [facility] transfer [facility].
Complex patient. Attempt to wean off Benadryl drip over the last 2 weeks with persistent dystonic episodes
While patient is relatively stable with her current condition, given complex clinical picture requiring multi disciplinary approach not limited to medicine, hematology, allergology, as well as neuropsychiatric assessment, patient would be better
served at a tertiary facility. Patient was accepted to [facility] for transfer, but hospital administration denied her transfer due to complexity (discussed with patient who is aware)
Anticipated Discharge: > 48 hours
Subjective/Interval History
-
Date of Service: December 02, 2023
Objective Data
-
Vital Signs:
Vital Signs
Temp Pulse Resp BP Pulse Ox
97.8 F 92 14 117/75 94
12/02/23 11:46 12/02/23 12:00 12/02/23 12:00 12/02/23 12:00 12/02/23 12:00
I&O
12/01/23 12/02/23 12/03/23
06:59 06:59 06:59
Intake Total 630 / 630
Output Total 1250 / 1250 2300 / 2300
Balance -620 / -620 -2300 / -2300
Physical Exam
-
General: Well Developed and No Apparent Distress
HEENT: Normocephalic, Atraumatic and Moist Mucous Membranes
Respiratory: Clear to Auscultation
Cardiac: Regular Rhythm and S1/S2; Negative Murmur, Rub or Gallop
GI: Soft, Nontender, Nondistended and Normal Bowel Sounds; Negative Organomegaly
Rectal: Deferred by Provider
Musculoskeletal: No Clubbing, No Cyanosis and No Edema
Skin: Negative Rash
Neuro: Nonfocal/Grossly Intact
--- NOTE | 2023-12-02 14:15 | CM ---
Call received from Rae/ Leni Hahn [facility]. Updated Rae that patient's Step Father has secured an apartment for her , tentative date it will be available is 01/10/24. Rae stated she does see documented in their system that Roslyn Moya,
[place] is working to resume the 24/ PDN through [facility] which she had prior to admission, and in addition secure a back up PDN agency in the event [facility] can not staff a particular shift. I made Rae aware that we
continue to wean her IV Benadryl gtt, as well as convert some of her other IV medications to oral. I updated Rae that we were considering making a new referral for an LTAC placement , while we await her apartment to become available. Also made
Rae aware neither Mary nor her parents appear to be amenable to this idea.
Rae asked if we needed her assistance to find placement in a SNF. I stated presently unfortunately that her IV Benedryl gtt along with her other IV medications is a barrier to placing her in a SNF that is why we are attempting to wean her iv
medications and convert to oral. I asked her if she knew of any SNF facilities that could accommodate an IV Benadryl gtt and she stated no she did not. She went on to state that when she brought it up in rounds no one had heard of an IV Benadryl gtt.
Rae is on vacation next week, she asked if she could call me on 12/23/23 for an update which I agreed to.
[2023-12-02] MEDS: ZYRTEC 10 MG TUBE ×2 (16:21→21:18)
[2023-12-02 16:37] LABS: Glucose - Point of Care 122 mg/dl (70-99)
--- NOTE | 2023-12-02 17:37 | CM ---
Patient with Hx Mast Cell Activation Syndrome, dystonia/movement disorder, chronic pain syndrome, gastroparesis with Dx Gram-negative bacteremia due to chronic infected PICC line. Receiving IV Benadryl gtt. GJ tube in place. Seen by Psych.
Medsitter per nursing. PT 12/01 recommends HH. OT 12/01 recommends skilled vs home.
Received phone message from Jonel Ontiveros, father (ph [phone]); he left long message stating that we should be focused on addressing her medical needs to get her better and not on 'just getting her out of the hospital'. Jonel did not
directly answer question of whether he would allow another attempt at LTAC placement.
Spoke with Dr Kirk; 2nd team conference including Dr Morrison will be held tomorrow at 10am.
Case discussed with Brigida Leavitt CM Animal Control Licensing Worker.
Plan d/c to apartment 01/09 with [employer], with resumption of 24-hr nurse caregivers, possibly with resumption home infusion, once housing is available vs d/c to LTAC.
[2023-12-02] MEDS: FEOSOL 325 MG PO (21:16)
[2023-12-02] MEDS: COLACE 100 MG PO (21:16)
[2023-12-02 22:07] LABS: Glucose - Point of Care 127 mg/dl (70-99)
[2023-12-03] VITALS: BP 130/119
--- NOTE | 2023-12-03 00:26 | PTCARENOTE ---
pt rang call sanchez and verbalized having dystonic episode. scheduled ativan given along w/ prn benadryl piggyback. will monitor.
--- NOTE | 2023-12-03 02:57 | DOWNTIME ---
There was a [employer] Client Edge Trimming Machine Operator Downtime on 12/03/2023 from 0100 to 12/03/2023 at 0255. Downtime documentation of patient's care, including medication administrations, has been reconciled in the electronic record per guidelines. Refer to the
patient's paper chart under the miscellaneous tab to see printed paper medication records and downtime forms.
[2023-12-03 04:00] VITALS: BP 111/77
[2023-12-03] MEDS: BENADRYL 250 MG IV (04:01)
[2023-12-03] MEDS: BENADRYL SOLUTION 25 MG TUBE ×6 (04:01→20:31)
[2023-12-03] MEDS: ATIVAN 1 MG SL ×6 (04:01→23:53)
[2023-12-03] MEDS: LIORESAL 10 MG TUBE ×3 (06:26→20:14)
[2023-12-03] MEDS: SINEMET 25-100 1.5 TABLET TUBE ×2 (06:26→09:02)
[2023-12-03] MEDS: PULMICORT 0.5 MG INH ×2 (07:36→20:02)
[2023-12-03 08:00] VITALS: BP 121/92
--- NOTE | 2023-12-03 08:37 | PTCARENOTE ---
Pt is sleeping will check in later
[2023-12-03] MEDS: MIRALAX 17 GRAMS TUBE (08:58)
[2023-12-03] MEDS: LOVENOX 100 MG SC ×2 (08:59→20:12)
--- NOTE | 2023-12-03 09:00 | PTCARENOTE ---
Pt called having abd pain and chest pain, after talking with pt, she has not had a bm in 2 days. Pt was crying and shaking as she sat on bedpan having a BM. Meds given as ordered. Pt tearful and kept apologizing, Mary told she need not apologize to
me. Encouragement offered. Pt not hungry skipping breakfast. Pt then had an episode of dystonia Benadryl given as ordered
[2023-12-03] MEDS: DELTASONE 10 MG TUBE ×2 (09:03→20:14)
[2023-12-03] MEDS: CLARITIN 10 MG TUBE (09:04)
[2023-12-03] MEDS: INDERAL 10 MG TUBE ×3 (09:04→20:13)
[2023-12-03] MEDS: SUBUTEX 2 MG SL ×4 (09:06→20:14)
[2023-12-03] MEDS: PEPCID 40 MG IV ×2 (09:07→20:15)
[2023-12-03] MEDS: NSS (PRESERVATIVE FREE) 6 ML IV ×2 (09:07→20:15)
[2023-12-03] MEDS: HYDREA 500 MG PO ×2 (09:09→20:14)
[2023-12-03] MEDS: VITAMIN B1 100 MG TUBE (09:09)
[2023-12-03] MEDS: ZOFRAN 4 MG IV ×2 (09:17→15:41)
[2023-12-03] MEDS: NON-FORMULARY ITEM 1 MG PO ×2 (09:24→20:17)
[2023-12-03 09:25] LABS: Glucose - Point of Care 93 mg/dl (70-99)
[2023-12-03] MEDS: NON-FORMULARY ITEM 1 UNIT PO ×2 (09:25→20:16)
[2023-12-03] MEDS: ZADITOR 1 DROP BOTH EYES ×2 (09:26→20:24)
[2023-12-03] MEDS: NON-FORMULARY ITEM NASAL (09:26)
[2023-12-03] MEDS: DESENEX/MITRAZOL/ZEASORB 1 APPLIC TOPICAL ×2 (09:27→20:17)
[2023-12-03] MEDS: COLACE 100 MG PO ×2 (09:27→20:13)
[2023-12-03] MEDS: NON-FORMULARY ITEM PO (09:28)
[2023-12-03] MEDS: GASTROCROM 300 MG PO ×4 (09:32→20:15)
[2023-12-03] MEDS: LANTUS 0.1 UNITS SC (09:42)
[2023-12-03] MEDS: NOVOLOG FLEXPEN SC (09:44)
[2023-12-03] MEDS: BENADRYL 50.5 MG IV ×3 (09:44→23:53)
[2023-12-03] MEDS: NOVOLOG FLEXPEN-LOW RESISTANCE SC ×3 (09:44→17:24)
[2023-12-03] MEDS: LIDOCAINE 4% PATCH 1 PATCH TOPICAL (09:47)
--- NOTE | 2023-12-03 11:02 | CM ---
Addendum entered by Luci Garcia RN 12/03/23 16:56:
Notified by Brigida Email Production Specialist ok to proceed with LTAC referrals.
Original Note:
Patient with Hx Mast Cell Activation Syndrome, dystonia/movement disorder, chronic pain syndrome, gastroparesis with Dx Gram-negative bacteremia due to chronic infected PICC line. Receiving IV Benadryl gtt. GJ tube in place. Seen by Psych.
Medsitter per nursing. PT 11/29 recommends HH. OT 11/25 recommends skilled vs home.
Multidisciplinary team meeting today led by Dr Morrison, with Keaton Kirk & Sarah, Pharmacy, Nursing and CM attending. A Q72hr Benadryl weaning schedule was established. Discussion about consideration of securing LTAC as a backup d/c plan if
patient's apartment is not available on 01/09. Nurse mentioned that patient said there was a hiccup in the plan for a backup RN Agency - CM agreed to investigate. CM Director wants to discuss considerations for referrals to LTAC and will let CM
know whether to proceed.
Spoke with Roslyn Ferreira, Driver Trainee [facility] (ph [phone]); Roslyn says there is no issue with the request to add a second office support specialist Agency as backup to [facility]. She expressed frustration that the patient is
interfering by calling Marcos, Work Distributor at [facility] for updates. Roslyn spoke with Marcos at [facility] who has been demanding that [place] provide 2 RN agencies covering the patient each day simultaneously, and that request is not medically necessary or
reasonable. Roslyn will continue her efforts to secure a second RN agency as backup to the first agency, and needs until at least 12/07 [address] in [address].
Plan d/c to apartment 01/09 with [employer], with resumption of 24-hr nurse caregivers, possibly with resumption home infusion, once housing is available vs d/c to LTAC.
[2023-12-03 12:00] VITALS: BP 125/94
[2023-12-03 12:09] LABS: Glucose - Point of Care 113 mg/dl (70-99)
[2023-12-03] MEDS: NOVOLOG FLEXPEN 3 UNITS SC ×2 (12:50→18:30)
[2023-12-03] MEDS: SINEMET 25-100 2 TABLET TUBE ×2 (14:18→17:16)
[2023-12-03] MEDS: NON-FORMULARY ITEM 200 MG PO (14:20)
--- NOTE | 2023-12-03 15:53 | PTCARENOTE ---
Pt step father lsft room and pt rang sanchez , pt states she is going to have an episode. Then proceeded with episode of Dystonia Hr went to138. Pt asked for an ice pack on her neck. Ice pack given i asked pt if step upset her and she said no
she was not feeling right before he got here. Pt stated she needed Benadryl . Benadryl administered as ordered.
--- NOTE | 2023-12-03 16:49 | W.PN.HOSP.TC ---
Today's Communication/Plan
-
Continue Benadryl wean
Continue supportive care
Assessment / Plan
Assessment / Plan
Impression:
Gram-negative bacteremia due to chronic infected PICC line.
Fever on admission with no evidence of sepsis (tachycardia likely fever mediated)
Conditions prior to admission:
1. Mast cell activation syndrome.
2. Chronic dystonic reaction.
3. Orthostatic hypotension with postural orthostatic and
tachycardia syndrome.
4. Dopa sensitive dystonia.
5. Steroid-induced diabetes.
6. Prior history of deep venous thrombosis and pulmonary embolism.
7. Chronic pain syndrome.
8. Migraine headaches.
9. Gastroesophageal reflux disease.
10. Benzodiazepine and opiate dependence.
11. Restless legs syndrome.
12. Insomnia.
13. History of vocal cord dysfunction.
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
15. Gastroparesis.
16. 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
17. 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
Plan:
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
PICC line removed and PICC line replaced on 09/23
Repeated blood cultures negative on 09/20 but no other cultures obtained
Finished cipro on 10/06/23 (was on 750mg BID)
GJ tube in place
Replaced by interventional radiology on 09/22
Replaced by interventional radiology 11/04 due to concern leakage
HX Recurrent Anaphylaxis / Mast Cell Flare Episodes on chronic steroids
Mast Cell Activation Syndrome
DOPA-Responsive Dystonia
-follows with Dr. Lizabeth Villanueva at [facility] hematology.
- Continue Ativan
�-cont Gleevac ,steroids
�--Levalbuterol as needed, to do her eyedrops
-Continue carbidopa levodopa
-prednisone continued
-Outpatient IV Benadryl drip at 15 milligram an hour upon presentation. As discussed with primary phd intern Dr. Mora plan is to slowly taper. Decreased Benadryl drip down to 8 mg an hour on 11/30
Multiple conversations with patient almost on a daily basis in regards to goals of care including attempt to wean off Benadryl drip with possibly substitution to oral regimen to facilitate discharge as well as outpatient management. Patient has
been resistant to wean off Benadryl drip completely at this point.
11/26. Multidisciplinary meeting including psychiatry, clinical pharmacy, medicine, nursing.
Patient clinical course along with medication regimen has been reviewed.
With the goal of minimize exposure to IV medications and optimize regimen following changes implemented:
-Daily IV fluids discontinued with plan to monitor oral intake and orthostatics.
� IV Benadryl pushes have been discontinued.
� Lorazepam sublingual as needed order has been discontinued.
IV lorazepam has been discontinued
Hydromorphone oral 8 mg every 3 hours order has been discontinued.
Initiated:
Benadryl 25 mg infusion through piggyback will be provided over 10 minutes for breakthrough dystonic attack.
Benadryl p.o. 25 mg will be scheduled every 4 hours.
Lorazepam sublingual 1 mg with the scheduled while awake every 4 hours.
Hydromorphone p.o. 8 mg will be continued every 6 hours as needed for severe pain along with Suboxone.
12/02.
Multidisciplinary discussion involving nursing, primary service, psychiatry, pharmacy, case management
Plan is to continue current care including intravenous Benadryl drip wean. Schedule below:
Diphenhydramine continuous infusion taper schedule Q72hr
11/30 @12/03 @1259 � 8MG/HR
12/03 @12/06 @1259 � 7MG/HR
12/06 @12/09 @1259 � 6MG/HR
12/09 @12/12 @1259 � 5MG/HR
12/12 @12/15 @1259 � 4MG/HR
12/15 @1300 � 8 @1259 � 3MG/HR
12/18 @1300 � 8 @1259 � 2MG/HR
12/21 @1300 � 12/24 @1259 � 1MG/HR
12/24 @1300 � Stop infusion
Can consider increasing diphenhydramine PO up to max 300mg/day IF NEEDED. I would recommend increasing if episodes increase.
dystonia/movement disorder-patient apparently has dystonic features with her mast cell activation syndrome. I could not find in literature as a routine clinical presentation but according to patient apparently this is very unusual feature which was
noted in few other patients . She was on IV Benadryl pump at 15 mg/h at home.
-baclofen continued
-sinemet continued
-episodes with vasovagal response when trying to have a BM - start standing miralax and colace BID
Chronic pain syndrome-on high doses of narcotics (chronic opioid use with dependence) including p.o. Dilaudid and Suboxone at home. Again unclear the source of her pain.
GERD
-famotidine continued
-acipHex continued
-simethicone continued
iron def anemia
-ferrous sulfate continued
hxt of tachycardia
-EKG with sinus tachycardia
-propranolol continued
Chronic Nausea / Esophageal Dysmotility/gastroparesis
History GJ tube
�- Continue diet as tolerated.
�- Continue G-tube to gravity for chronic nausea.
�- Meds via J-tube.
-Zofran every 8 hours as needed
-Continue Pepcid
-emend continued
- PEG tube site without any signs of cellulitis. CT of the abdomen pelvis shows no subcutaneous collection around the PEG tube and it is in place.
Acute fractures of the left 6 anterolateral 6th and 7th ribs
-Suspect from recent fall on 10/03
-10/25 complains of pain on the posterolateral lower ribs
-Continue lidocaine patch, add heating packs
Steroid-Induced DM-II--
She remains on steady dose of prednisone
Blood glucose remains marginal
Monitor oral intake
Reduce Lantus and NovoLog AC
Continue serial Accu-Cheks with basal bolus protocol.
S/p fall overnight 10/03-10/04
imaging negative for bleed or fracture
Steroid-Induced Osteoporosis
Chronic Pain Syndrome secondary to the above on chronic opiates
�- Continue buprenorphine 2 mg 4 times daily , Dilaudid 8 mg as needed
�- PT / OT evaluations.
�- Follow-up with usual medicaid collection specialist after discharge.
allergy induced asthma
chronic hypoxic respiratory failure--on O2
-albuterol continued
-budesonide continued
-cetirizine continued
-cromolyn continued
Thrush
Completed course of clotrimazole Troches for thrush
Migraine Hx
ODT Nurtec as needed
Restless leg syndrome
-Continue baclofen
History of DVT/PE
#Takes subcu Lovenox 100 mg twice daily
DNR on admission
Disposition: Discussion with primary phd intern Dr. Ethan Villanueva on 10/09. Discussed possibility of attempting weaning Benadryl drip likely could be done as outpatient. With current family social situation, unfortunately there is no options
for disposition other than home on IV infusion. Possibility of a transfer to [facility] discussed as well, although according to Dr. Villanueva hospital administration declined services due to complexity. Also discussed possibility of
transfer to tertiary center ([facility] declined in the past).
10/[address] Villanueva over the phone as well as [facility] transfer center.
Complex patient. Attempt to wean off Benadryl drip over the last 2 weeks with persistent dystonic episodes
While patient is relatively stable with her current condition, given complex clinical picture requiring multi disciplinary approach not limited to medicine, hematology, allergology, as well as neuropsychiatric assessment, patient would be better
served at a tertiary facility. Patient was accepted to [facility] for transfer, but hospital administration denied her transfer due to complexity (discussed with patient who is aware)
Anticipated Discharge: > 48 hours
Subjective/Interval History
-
Date of Service: December 03, 2023
Objective Data
-
Vital Signs:
Vital Signs
Temp Pulse Resp BP Pulse Ox
97.3 F 138 22 125/74 91
12/03/23 15:45 12/03/23 15:41 12/03/23 12:00 12/03/23 15:41 12/03/23 12:08
I&O
12/02/23 12/03/23 12/04/23
06:59 06:59 06:59
Output Total 2300 / 2300 850 / 850 1300 / 1300
Balance -2300 / -2300 -850 / -850 -1300 / -1300
Physical Exam
-
General: Well Developed and No Apparent Distress
HEENT: Normocephalic, Atraumatic and Moist Mucous Membranes
Respiratory: Clear to Auscultation
Cardiac: Regular Rhythm and S1/S2; Negative Murmur, Rub or Gallop
GI: Soft, Nontender, Nondistended and Normal Bowel Sounds; Negative Organomegaly
Rectal: Deferred by Provider
Musculoskeletal: No Clubbing, No Cyanosis and No Edema
Skin: Negative Rash
Neuro: Awake, Alert, Oriented, AO x 3 and Nonfocal/Grossly Intact
[2023-12-03] MEDS: ZYRTEC 10 MG TUBE ×2 (17:16→20:13)
[2023-12-03 17:36] LABS: Glucose - Point of Care 104 mg/dl (70-99)
[2023-12-03 20:09] VITALS: BP 127/94
[2023-12-03] MEDS: FEOSOL 325 MG PO (20:13)
--- NOTE | 2023-12-03 21:39 | PTCARENOTE ---
pt received from previous rn- aox4, nsr on monitor, requested respiratory therpay to place on 2LNC for sleep. sats in 90s. pt able to turn and reposition self. provided self pm care. purewick changed. verbalized understanding to all education. all
safety precautions in place, video monitoring on, call sanchez within reach. left upper triple lumen picc flushed with good blood return. benadryl gtt continues as per order.
[2023-12-03 21:50] LABS: Glucose - Point of Care 164 mg/dl (70-99)
[2023-12-04] VITALS (11 sets, daily range): BP systolic 107–156; BP diastolic 75–126; PULSE 110–125; O2SAT 100
[2023-12-04] MEDS: BENADRYL SOLUTION 25 MG TUBE ×6 (01:24→21:17)
[2023-12-04] MEDS: LIORESAL 10 MG TUBE ×3 (05:54→21:11)
[2023-12-04] MEDS: SINEMET 25-100 1.5 TABLET TUBE ×2 (05:54→09:59)
[2023-12-04] MEDS: ATIVAN 1 MG SL ×6 (05:54→21:11)
[2023-12-04] MEDS: PULMICORT 0.5 MG INH ×2 (07:23→20:47)
[2023-12-04 07:46] LABS: Glucose - Point of Care 94 mg/dl (70-99)
[2023-12-04] MEDS: BENADRYL 250 MG IV ×2 (08:07→13:18)
[2023-12-04] MEDS: GASTROCROM 300 MG PO ×4 (08:08→21:18)
[2023-12-04] MEDS: COLACE 100 MG PO ×2 (08:09→21:12)
[2023-12-04] MEDS: LOVENOX 100 MG SC ×2 (08:09→21:10)
[2023-12-04] MEDS: MIRALAX 17 GRAMS TUBE (08:09)
[2023-12-04] MEDS: LIDOCAINE 4% PATCH 1 PATCH TOPICAL (08:10)
[2023-12-04] MEDS: NOVOLOG FLEXPEN-LOW RESISTANCE SC ×3 (08:10→18:15)
[2023-12-04] MEDS: PEPCID 40 MG IV ×2 (08:11→21:17)
[2023-12-04] MEDS: NSS (PRESERVATIVE FREE) 6 ML IV ×2 (08:11→21:17)
[2023-12-04] MEDS: HYDREA 500 MG PO ×2 (08:12→21:11)
[2023-12-04] MEDS: SUBUTEX 2 MG SL ×4 (08:12→21:11)
[2023-12-04] MEDS: CLARITIN 10 MG TUBE (08:13)
[2023-12-04] MEDS: DELTASONE 10 MG TUBE ×2 (08:13→21:11)
[2023-12-04] MEDS: VITAMIN B1 100 MG TUBE (08:14)
[2023-12-04] MEDS: DESENEX/MITRAZOL/ZEASORB 1 APPLIC TOPICAL (08:18)
[2023-12-04] MEDS: NON-FORMULARY ITEM 1 UNIT PO ×2 (08:20→21:13)
[2023-12-04] MEDS: LANTUS 0.1 UNITS SC (08:21)
[2023-12-04] MEDS: ZADITOR 1 DROP BOTH EYES ×2 (08:21→21:10)
[2023-12-04] MEDS: NON-FORMULARY ITEM 1 MG PO ×2 (08:23→21:12)
[2023-12-04] MEDS: NON-FORMULARY ITEM PO (08:24)
[2023-12-04] MEDS: NON-FORMULARY ITEM NASAL (08:25)
[2023-12-04] MEDS: INDERAL 10 MG TUBE ×3 (08:36→21:11)
[2023-12-04] MEDS: ZOFRAN 4 MG IV ×2 (08:36→15:40)
[2023-12-04] MEDS: NOVOLOG FLEXPEN 3 UNITS SC ×2 (08:37→12:26)
--- NOTE | 2023-12-04 09:35 | W.PN.HOSP.TC ---
Today's Communication/Plan
-
Ongoing disposition efforts
Assessment / Plan
Assessment / Plan
Impression:
Gram-negative bacteremia due to chronic infected PICC line.
Fever on admission with no evidence of sepsis (tachycardia likely fever mediated)
Conditions prior to admission:
1. Mast cell activation syndrome.
2. Chronic dystonic reaction.
3. Orthostatic hypotension with postural orthostatic and
tachycardia syndrome.
4. Dopa sensitive dystonia.
5. Steroid-induced diabetes.
6. Prior history of deep venous thrombosis and pulmonary embolism.
7. Chronic pain syndrome.
8. Migraine headaches.
9. Gastroesophageal reflux disease.
10. Benzodiazepine and opiate dependence.
11. Restless legs syndrome.
12. Insomnia.
13. History of vocal cord dysfunction.
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
15. Gastroparesis.
16. 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
17. 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
Plan:
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
PICC line removed and PICC line replaced on 09/23
Repeated blood cultures negative on 09/20 but no other cultures obtained
Finished cipro on 10/06/23 (was on 750mg BID)
GJ tube in place
Replaced by interventional radiology on 09/22
Replaced by interventional radiology 11/04 due to concern leakage
HX Recurrent Anaphylaxis / Mast Cell Flare Episodes on chronic steroids
Mast Cell Activation Syndrome
DOPA-Responsive Dystonia
-follows with Dr. Lizabeth Villanueva at [facility] hematology.
- Continue Ativan
�-cont Gleevac ,steroids
�--Levalbuterol as needed, to do her eyedrops
-Continue carbidopa levodopa
-prednisone continued
-Outpatient IV Benadryl drip at 15 milligram an hour upon presentation. As discussed with primary sas analyst Dr. Mora plan is to slowly taper. Decreased Benadryl drip down to 8 mg an hour on 11/30
Multiple conversations with patient almost on a daily basis in regards to goals of care including attempt to wean off Benadryl drip with possibly substitution to oral regimen to facilitate discharge as well as outpatient management. Patient has
been resistant to wean off Benadryl drip completely at this point.
11/26. Multidisciplinary meeting including psychiatry, clinical pharmacy, medicine, nursing.
Patient clinical course along with medication regimen has been reviewed.
With the goal of minimize exposure to IV medications and optimize regimen following changes implemented:
-Daily IV fluids discontinued with plan to monitor oral intake and orthostatics.
� IV Benadryl pushes have been discontinued.
� Lorazepam sublingual as needed order has been discontinued.
IV lorazepam has been discontinued
Hydromorphone oral 8 mg every 3 hours order has been discontinued.
Initiated:
Benadryl 25 mg infusion through piggyback will be provided over 10 minutes for breakthrough dystonic attack.
Benadryl p.o. 25 mg will be scheduled every 4 hours.
Lorazepam sublingual 1 mg with the scheduled while awake every 4 hours.
Hydromorphone p.o. 8 mg will be continued every 6 hours as needed for severe pain along with Suboxone.
12/02.
Multidisciplinary discussion involving nursing, primary service, psychiatry, pharmacy, case management
Plan is to continue current care including intravenous Benadryl drip wean. Schedule below:
Diphenhydramine continuous infusion taper schedule Q72hr
11/30 @12/03 @1259 � 8MG/HR
12/03 @12/06 @1259 � 7MG/HR
12/06 @12/09 @1259 � 6MG/HR
12/09 @12/12 @1259 � 5MG/HR
12/12 @12/15 @1259 � 4MG/HR
12/15 @1299 � 8/2 @1259 � 3MG/HR
12/18 @1300 � 8 @1259 � 2MG/HR
12/21 @1300 � 12/24 @1259 � 1MG/HR
12/24 @1300 � Stop infusion
Can consider increasing diphenhydramine PO up to max 300mg/day IF NEEDED. I would recommend increasing if episodes increase.
dystonia/movement disorder-patient apparently has dystonic features with her mast cell activation syndrome. I could not find in literature as a routine clinical presentation but according to patient apparently this is very unusual feature which was
noted in few other patients . She was on IV Benadryl pump at 15 mg/h at home.
-baclofen continued
-sinemet continued
-episodes with vasovagal response when trying to have a BM - start standing miralax and colace BID
Chronic pain syndrome-on high doses of narcotics (chronic opioid use with dependence) including p.o. Dilaudid and Suboxone at home. Again unclear the source of her pain.
GERD
-famotidine continued
-acipHex continued
-simethicone continued
iron def anemia
-ferrous sulfate continued
hxt of tachycardia
-EKG with sinus tachycardia
-propranolol continued
Chronic Nausea / Esophageal Dysmotility/gastroparesis
History GJ tube
�- Continue diet as tolerated.
�- Continue G-tube to gravity for chronic nausea.
�- Meds via J-tube.
-Zofran every 8 hours as needed
-Continue Pepcid
-emend continued
- PEG tube site without any signs of cellulitis. CT of the abdomen pelvis shows no subcutaneous collection around the PEG tube and it is in place.
Acute fractures of the left 6 anterolateral 6th and 7th ribs
-Suspect from recent fall on 10/03
-10/25 complains of pain on the posterolateral lower ribs
-Continue lidocaine patch, add heating packs
Steroid-Induced DM-II--
She remains on steady dose of prednisone
Blood glucose remains marginal
Monitor oral intake
Reduce Lantus and NovoLog AC
Continue serial Accu-Cheks with basal bolus protocol.
S/p fall overnight 10/03-10/04
imaging negative for bleed or fracture
Steroid-Induced Osteoporosis
Chronic Pain Syndrome secondary to the above on chronic opiates
�- Continue buprenorphine 2 mg 4 times daily , Dilaudid 8 mg as needed
�- PT / OT evaluations.
�- Follow-up with usual retail service specialist after discharge.
allergy induced asthma
chronic hypoxic respiratory failure--on O2
-albuterol continued
-budesonide continued
-cetirizine continued
-cromolyn continued
Thrush
Completed course of clotrimazole Troches for thrush
Migraine Hx
ODT Nurtec as needed
Restless leg syndrome
-Continue baclofen
History of DVT/PE
#Takes subcu Lovenox 100 mg twice daily
DNR on admission
Disposition: Discussion with primary sas analyst Dr. Ethan Villanueva on 10/09. Discussed possibility of attempting weaning Benadryl drip likely could be done as outpatient. With current family social situation, unfortunately there is no options
for disposition other than home on IV infusion. Possibility of a transfer to [facility] discussed as well, although according to Dr. Villanueva hospital administration declined services due to complexity. Also discussed possibility of
transfer to tertiary center ([facility] declined in the past).
10/[address] Villanueva over the phone as well as [facility] transfer center.
Complex patient. Attempt to wean off Benadryl drip over the last 2 weeks with persistent dystonic episodes
While patient is relatively stable with her current condition, given complex clinical picture requiring multi disciplinary approach not limited to medicine, hematology, allergology, as well as neuropsychiatric assessment, patient would be better
served at a tertiary facility. Patient was accepted to [facility] for transfer, but hospital administration denied her transfer due to complexity (discussed with patient who is aware)
12/03 - Pt without specific complaints . HD stable. Tolerating weaning of Bendryl dose. Today feels upbeat. Talks about approval for 24 hr nursing care and also approval of apartment to go to after DC. Ongoing dispo efforts. HALLIE RN today - no new
nursing issues .
Anticipated Discharge: > 48 hours
Subjective/Interval History
-
Date of Service: December 04, 2023
Patient feels good today and feels her spirits are good as well.
Voicing no specific complaints.
Objective Data
-
Vital Signs:
Vital Signs
Temp Pulse Resp BP Pulse Ox
97.8 F 95 21 118/85 96
12/04/23 07:31 12/04/23 08:36 12/04/23 07:25 12/04/23 08:36 12/04/23 07:25
I&O
12/03/23 12/04/23 12/05/23
06:59 06:59 06:59
Intake Total 146 / 146
Output Total 850 / 850 2049
Balance -850 / -850 -1904 / -1903
Review of Systems
-
Respiratory: Denies Trouble Breathing
Cardiac: Denies Chest Pain
Abdomen/GI: Denies Nausea, Vomiting, Diarrhea or Constipated
Neuro: Denies Dizzy
Physical Exam
-
General: Comfortable
Respiratory: Non Labored Respirations; Negative Accessory Resp Muscle Use
Cardiac: Regular Rhythm and S1/S2
GI: Soft
Neuro: AO x 3
Psych: Calm; Negative Confused or Agitated
[2023-12-04] MEDS: BENADRYL 50.5 MG IV ×3 (09:59→23:28)
[2023-12-04] MEDS: TYLENOL 650 MG PO ×2 (12:02→21:26)
[2023-12-04 12:26] LABS: Glucose - Point of Care 120 mg/dl (70-99)
[2023-12-04] MEDS: SINEMET 25-100 2 TABLET TUBE ×2 (13:19→17:07)
[2023-12-04] MEDS: NON-FORMULARY ITEM 200 MG PO (13:22)
--- NOTE | 2023-12-04 13:52 | PTCARENOTE ---
Updated assessment, vital signs ongoing and as documented. Staff in and out at bedside. Continue with teaching, reinforcement and supportive cares thru shift. Updated with attending, pharmacy and IMU team thru shift.
--- NOTE | 2023-12-04 13:53 | CM ---
Patient with Hx Mast Cell Activation Syndrome, dystonia/movement disorder, chronic pain syndrome, gastroparesis with Dx Gram-negative bacteremia due to chronic infected PICC line. Receiving IV Benadryl gtt. GJ tube in place. Seen by Psych.
Medsitter per nursing. PT 12/01 recommends HH. OT 12/01 recommends skilled vs home.
LT[facility] referrals initiated yesterday were reviewed in [facility].
[facility] declined as out of network with plan having no out of network benefits.
[facility] declined saying: We cannot accommodate the Benadryl taper and the medical services this pt requires.
Spoke with Yuliana, Liaison Adms [facility]; she will review the referral and let CM know if interested.
Plan follow up with [facility].
[2023-12-04] MEDS: ZYRTEC 10 MG TUBE ×2 (17:07→21:11)
[2023-12-04 18:09] LABS: Glucose - Point of Care 114 mg/dl (70-99)
[2023-12-04] MEDS: NOVOLOG FLEXPEN SC (18:15)
--- NOTE | 2023-12-04 18:18 | PTCARENOTE ---
Patient assessment unchanged thru shift. Patient in and out of bed to chair. Also ambulated hallway with PT/OT and working with stairs. Tolerated well. Patient very emotional st end of day. Stating' 'Mother became involved in care, calling to cancel
and warn other nursing/care groups to not take care of her.' Staff at bedside. Supportive cares ongoing. Discuss with patient to address with md, pillowcase maker and care team involved in helping her seek placement and support. Follow up medications
via [facility]. Review two events of dystonia with IMU team and pharmacy. Will follow any further changes.
[2023-12-04] MEDS: FEOSOL 325 MG PO (21:11)
[2023-12-04] MEDS: DESENEX/MITRAZOL/ZEASORB TOPICAL (21:12)
[2023-12-04 21:44] LABS: Glucose - Point of Care 145 mg/dl (70-99)
[2023-12-05] VITALS (9 sets, daily range): BP systolic 97–139; BP diastolic 56–104
[2023-12-05] MEDS: BENADRYL SOLUTION 25 MG TUBE ×6 (01:09→23:07)
[2023-12-05] MEDS: ATIVAN 1 MG SL ×7 (01:09→23:07)
[2023-12-05] MEDS: SINEMET 25-100 1.5 TABLET TUBE ×2 (05:30→09:12)
[2023-12-05] MEDS: LIORESAL 10 MG TUBE ×3 (05:30→22:48)
[2023-12-05] MEDS: SINEMET 25-100 TUBE (06:04)
[2023-12-05] MEDS: ATIVAN SL (06:04)
[2023-12-05] MEDS: BENADRYL SOLUTION TUBE (06:04)
[2023-12-05] MEDS: LIORESAL TUBE (06:04)
[2023-12-05] MEDS: PULMICORT 0.5 MG INH ×2 (08:10→19:30)
[2023-12-05] MEDS: LIDOCAINE 4% PATCH 1 PATCH TOPICAL (09:05)
[2023-12-05] MEDS: MIRALAX 17 GRAMS TUBE (09:06)
[2023-12-05] MEDS: LOVENOX 100 MG SC ×2 (09:06→20:30)
[2023-12-05] MEDS: PEPCID 40 MG IV ×2 (09:07→20:32)
[2023-12-05] MEDS: NSS (PRESERVATIVE FREE) 6 ML IV ×2 (09:08→20:33)
[2023-12-05] MEDS: GASTROCROM 300 MG PO ×4 (09:08→22:44)
[2023-12-05] MEDS: CLARITIN 10 MG TUBE (09:11)
[2023-12-05] MEDS: SUBUTEX 2 MG SL ×4 (09:11→22:48)
[2023-12-05] MEDS: INDERAL 10 MG TUBE ×3 (09:11→22:48)
[2023-12-05] MEDS: VITAMIN B1 100 MG TUBE (09:12)
[2023-12-05] MEDS: HYDREA 500 MG PO ×2 (09:12→20:31)
[2023-12-05] MEDS: COLACE 100 MG PO ×2 (09:12→20:32)
[2023-12-05] MEDS: DELTASONE 10 MG TUBE ×2 (09:12→20:32)
[2023-12-05] MEDS: ZADITOR 1 DROP BOTH EYES ×2 (09:13→20:48)
[2023-12-05] MEDS: NON-FORMULARY ITEM 1 UNIT PO ×3 (09:14→22:50)
[2023-12-05] MEDS: NON-FORMULARY ITEM 1 MG PO ×2 (09:15→20:34)
[2023-12-05] MEDS: NON-FORMULARY ITEM NASAL (09:16)
[2023-12-05] MEDS: NON-FORMULARY ITEM PO (09:16)
[2023-12-05] MEDS: ZOFRAN 4 MG IV ×3 (09:21→22:46)
[2023-12-05] MEDS: NOVOLOG FLEXPEN-LOW RESISTANCE SC ×3 (09:22→17:42)
[2023-12-05] MEDS: NOVOLOG FLEXPEN SC ×2 (09:22)
[2023-12-05] MEDS: DESENEX/MITRAZOL/ZEASORB 1 APPLIC TOPICAL ×2 (09:23→20:30)
[2023-12-05] MEDS: LANTUS 0.1 UNITS SC (09:25)
--- NOTE | 2023-12-05 09:30 | PTCARENOTE ---
Patient received from rn night. Patient resting comfortably in bed. Patient with one episode last night around midnight. No specific complaints of pain at this time. ABBIE MCKEON. Currently on 2L N/C, was told by respiratory to try and come off
during the day (will monitor). Benadryl gtt @ 7ml/hr. Will attempt to get OOB to chair today. Call sanchez in reach.
[2023-12-05 09:31] LABS: Glucose - Point of Care 85 mg/dl (70-99)
--- NOTE | 2023-12-05 10:05 | PTCARENOTE ---
Addendum entered by Iman Dc RN 12/06/23 03:33:
please note, this occurred at 22:05 on 12/04 not the original saved time.
Original Note:
RN entered room to Pt having dystonic episode@ 21:45 after receiving call from [facility], HR 144, RR 15, sat 98. Pt on 2L NC 02, raised to 4L for comfort. Pt given ordered PRNQ4 25mg in 50ml over 10 mins Benadryl IV.
@ 22:04 hr 129, sat 98 , & Benadryl infusion completed. RN continues to be at bedside.
--- NOTE | 2023-12-05 10:32 | W.PN.HOSP.TC ---
Today's Communication/Plan
-
Ongoing DC efforts
Assessment / Plan
Assessment / Plan
Impression:
Gram-negative bacteremia due to chronic infected PICC line.
Fever on admission with no evidence of sepsis (tachycardia likely fever mediated)
Conditions prior to admission:
1. Mast cell activation syndrome.
2. Chronic dystonic reaction.
3. Orthostatic hypotension with postural orthostatic and
tachycardia syndrome.
4. Dopa sensitive dystonia.
5. Steroid-induced diabetes.
6. Prior history of deep venous thrombosis and pulmonary embolism.
7. Chronic pain syndrome.
8. Migraine headaches.
9. Gastroesophageal reflux disease.
10. Benzodiazepine and opiate dependence.
11. Restless legs syndrome.
12. Insomnia.
13. History of vocal cord dysfunction.
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
15. Gastroparesis.
16. 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
17. 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
Plan:
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
PICC line removed and PICC line replaced on 09/23
Repeated blood cultures negative on 09/20 but no other cultures obtained
Finished cipro on 10/06/23 (was on 750mg BID)
GJ tube in place
Replaced by interventional radiology on 09/22
Replaced by interventional radiology 11/04 due to concern leakage
HX Recurrent Anaphylaxis / Mast Cell Flare Episodes on chronic steroids
Mast Cell Activation Syndrome
DOPA-Responsive Dystonia
-follows with Dr. Lizabeth Villanueva at [facility] hematology.
- Continue Ativan
�-cont Gleevac ,steroids
�--Levalbuterol as needed, to do her eyedrops
-Continue carbidopa levodopa
-prednisone continued
-Outpatient IV Benadryl drip at 15 milligram an hour upon presentation. As discussed with primary assistant professor of business Dr. Mora plan is to slowly taper. Decreased Benadryl drip down to 8 mg an hour on 11/30
Multiple conversations with patient almost on a daily basis in regards to goals of care including attempt to wean off Benadryl drip with possibly substitution to oral regimen to facilitate discharge as well as outpatient management. Patient has
been resistant to wean off Benadryl drip completely at this point.
11/26. Multidisciplinary meeting including psychiatry, clinical pharmacy, medicine, nursing.
Patient clinical course along with medication regimen has been reviewed.
With the goal of minimize exposure to IV medications and optimize regimen following changes implemented:
-Daily IV fluids discontinued with plan to monitor oral intake and orthostatics.
� IV Benadryl pushes have been discontinued.
� Lorazepam sublingual as needed order has been discontinued.
IV lorazepam has been discontinued
Hydromorphone oral 8 mg every 3 hours order has been discontinued.
Initiated:
Benadryl 25 mg infusion through piggyback will be provided over 10 minutes for breakthrough dystonic attack.
Benadryl p.o. 25 mg will be scheduled every 4 hours.
Lorazepam sublingual 1 mg with the scheduled while awake every 4 hours.
Hydromorphone p.o. 8 mg will be continued every 6 hours as needed for severe pain along with Suboxone.
12/02.
Multidisciplinary discussion involving nursing, primary service, psychiatry, pharmacy, case management
Plan is to continue current care including intravenous Benadryl drip wean. Schedule below:
Diphenhydramine continuous infusion taper schedule Q72hr
11/30 @12/03 @1259 � 8MG/HR
12/03 @12/06 @1259 � 7MG/HR
12/06 @12/09 @1259 � 6MG/HR
12/09 @12/12 @1259 � 5MG/HR
12/12 @12/15 @1259 � 4MG/HR
12/15 @1299 � 8/2 @1259 � 3MG/HR
12/18 @1300 � 8 @1259 � 2MG/HR
12/21 @1300 � 12/24 @1259 � 1MG/HR
12/24 @1300 � Stop infusion
Can consider increasing diphenhydramine PO up to max 300mg/day IF NEEDED. I would recommend increasing if episodes increase.
dystonia/movement disorder-patient apparently has dystonic features with her mast cell activation syndrome. I could not find in literature as a routine clinical presentation but according to patient apparently this is very unusual feature which was
noted in few other patients . She was on IV Benadryl pump at 15 mg/h at home.
-baclofen continued
-sinemet continued
-episodes with vasovagal response when trying to have a BM - start standing miralax and colace BID
Chronic pain syndrome-on high doses of narcotics (chronic opioid use with dependence) including p.o. Dilaudid and Suboxone at home. Again unclear the source of her pain.
GERD
-famotidine continued
-acipHex continued
-simethicone continued
iron def anemia
-ferrous sulfate continued
hxt of tachycardia
-EKG with sinus tachycardia
-propranolol continued
Chronic Nausea / Esophageal Dysmotility/gastroparesis
History GJ tube
�- Continue diet as tolerated.
�- Continue G-tube to gravity for chronic nausea.
�- Meds via J-tube.
-Zofran every 8 hours as needed
-Continue Pepcid
-emend continued
- PEG tube site without any signs of cellulitis. CT of the abdomen pelvis shows no subcutaneous collection around the PEG tube and it is in place.
Acute fractures of the left 6 anterolateral 6th and 7th ribs
-Suspect from recent fall on 10/03
-10/25 complains of pain on the posterolateral lower ribs
-Continue lidocaine patch, add heating packs
Steroid-Induced DM-II--
She remains on steady dose of prednisone
Blood glucose remains marginal
Monitor oral intake
Reduce Lantus and NovoLog AC
Continue serial Accu-Cheks with basal bolus protocol.
S/p fall overnight 10/03-10/04
imaging negative for bleed or fracture
Steroid-Induced Osteoporosis
Chronic Pain Syndrome secondary to the above on chronic opiates
�- Continue buprenorphine 2 mg 4 times daily , Dilaudid 8 mg as needed
�- PT / OT evaluations.
�- Follow-up with usual senior specialist after discharge.
allergy induced asthma
chronic hypoxic respiratory failure--on O2
-albuterol continued
-budesonide continued
-cetirizine continued
-cromolyn continued
Thrush
Completed course of clotrimazole Troches for thrush
Migraine Hx
ODT Nurtec as needed
Restless leg syndrome
-Continue baclofen
History of DVT/PE
#Takes subcu Lovenox 100 mg twice daily
DNR on admission
Disposition: Discussion with primary assistant professor of business Dr. Ethan Villanueva on 10/09. Discussed possibility of attempting weaning Benadryl drip likely could be done as outpatient. With current family social situation, unfortunately there is no options
for disposition other than home on IV infusion. Possibility of a transfer to [facility] discussed as well, although according to Dr. Villanueva hospital administration declined services due to complexity. Also discussed possibility of
transfer to tertiary center ([facility] declined in the past).
10/[address] Villanueva over the phone as well as [facility] transfer center.
Complex patient. Attempt to wean off Benadryl drip over the last 2 weeks with persistent dystonic episodes
While patient is relatively stable with her current condition, given complex clinical picture requiring multi disciplinary approach not limited to medicine, hematology, allergology, as well as neuropsychiatric assessment, patient would be better
served at a tertiary facility. Patient was accepted to [facility] for transfer, but hospital administration denied her transfer due to complexity (discussed with patient who is aware)
12/03 - Pt without specific complaints . HD stable. Tolerating weaning of Bendryl dose. Today feels upbeat. Talks about approval for 24 hr nursing care and also approval of apartment to go to after DC. Ongoing dispo efforts. HALLIE RN today - no new
nursing issues .
12/04 - No new issues . Ongoing DC efforts. HALLIE RN
Anticipated Discharge: > 48 hours
Subjective/Interval History
-
Date of Service: December 05, 2023
No overnight events
Voices no specific complaints
Objective Data
-
Vital Signs:
Vital Signs
Temp Pulse Resp BP Pulse Ox
98.4 F 101 16 108/85 96
12/05/23 07:34 12/05/23 09:11 12/05/23 08:14 12/05/23 09:11 12/05/23 08:14
I&O
12/04/23 12/05/23 12/06/23
06:59 06:59 06:59
Intake Total 146 / 146 780 / 780
Output Total 2049 / 2049 1250 / 1250
Balance -1904 / -1904 -470 / -470
Review of Systems
-
Respiratory: Denies Trouble Breathing
Cardiac: Denies Chest Pain
Abdomen/GI: Denies Nausea
Neuro: Denies Dizzy
Physical Exam
-
Respiratory: Non Labored Respirations; Negative Accessory Resp Muscle Use
Cardiac: Regular Rhythm and S1/S2
GI: Soft
Neuro: AO x 3
[2023-12-05 12:02] LABS: Glucose - Point of Care 125 mg/dl (70-99)
[2023-12-05] MEDS: BENADRYL 50.5 MG IV ×2 (12:24→21:52)
--- NOTE | 2023-12-05 12:25 | PTCARENOTE ---
Patient rang call sanchez stating that she is have a Dystonic episode. PRN Benadryl piggyback IV given as well as scheduled Ativan PO 1mg sublingual. NRB placed on patient for comfort and ice pack placed to back of patients neck.
[2023-12-05] MEDS: NOVOLOG FLEXPEN 3 UNITS SC ×2 (12:39→17:42)
--- NOTE | 2023-12-05 14:10 | CM ---
Patient with Hx Mast Cell Activation Syndrome, dystonia/movement disorder, chronic pain syndrome, gastroparesis with Dx Gram-negative bacteremia due to chronic infected PICC line.
Met with patient who stated that her mother has not called [facility] recently however had called them in the past. Patient states she has called Roslyn at [facility] several times this week asking her for updates about her home nurse caregiver arrangements
- suggested that she refrain from making additional calls and allow Roslyn the courtesy of making the arrangements.
Patient stated that she has been calling her contact at [facility] and negotiating to hold the apartment until 01/09, as that apartment is already available to her.
Spoke with Roslyn Ferreira, [employer] [facility] [employer] (ph [phone]);
- Roslyn states Deep, manager product design [employer] requested a higher rate for the regularly scheduled nurses and that part of the agreement is completed, however he wants an additional amount for the perdiem nurses and that has not been agreed upon- that request
was sent to a higher level nurse unit manager for approval.
- Roslyn states because of experiences with the patient's mother in the past, [facility] will not provide service for RN Visits or VN for this patient. Roslyn is working to find another RN agency as backup.
Spoke with Yuliana [facility] ([phone]); they are waiting for patient's insurance check to come back. She does meet LTAC criteria, and their ID doctor is reviewing the referral to make sure they could wean the Benadryl.
Case discussed with Brigida Leavitt CM Director.
Plan follow up with [facility].
Plan follow up with [facility] [employer] re; home RN agency arrangements.
[2023-12-05] MEDS: SINEMET 25-100 2 TABLET TUBE ×2 (14:36→17:42)
[2023-12-05] MEDS: BENADRYL 250 MG IV (14:36)
[2023-12-05] MEDS: NON-FORMULARY ITEM 200 MG PO (14:37)
[2023-12-05] MEDS: ZYRTEC 10 MG TUBE ×2 (16:25→22:48)
[2023-12-05 17:18] LABS: Glucose - Point of Care 122 mg/dl (70-99)
[2023-12-05 21:38] LABS: Glucose - Point of Care 117 mg/dl (70-99)
[2023-12-05] MEDS: TYLENOL 650 MG PO (22:47)
[2023-12-05] MEDS: FEOSOL 325 MG PO (22:48)
[2023-12-06] VITALS: BP 108/80
[2023-12-06] MEDS: BENADRYL SOLUTION 25 MG TUBE ×6 (02:01→21:16)
[2023-12-06 04:00] VITALS: BP 98/65
[2023-12-06] MEDS: ATIVAN 1 MG SL ×5 (05:21→21:04)
[2023-12-06] MEDS: SINEMET 25-100 1.5 TABLET TUBE ×2 (05:21→09:55)
[2023-12-06] MEDS: LIORESAL 10 MG TUBE ×3 (05:21→21:06)
[2023-12-06] MEDS: DUONEB 3 ML INH (07:47)
[2023-12-06] MEDS: PULMICORT 0.5 MG INH ×2 (07:47→20:07)
[2023-12-06 08:02] LABS: Glucose - Point of Care 87 mg/dl (70-99)
[2023-12-06 08:16] VITALS: BP 117/74
[2023-12-06] MEDS: GASTROCROM 300 MG PO ×4 (08:17→21:07)
[2023-12-06] MEDS: ZOFRAN 4 MG IV ×2 (08:20→17:46)
[2023-12-06] MEDS: FLUSH (NSS) 2 FLUSH IV (08:22)
--- NOTE | 2023-12-06 08:42 | W.PN.HOSP.TC ---
Today's Communication/Plan
-
see bold
Assessment / Plan
Assessment / Plan
Impression:
Gram-negative bacteremia due to chronic infected PICC line.
Fever on admission with no evidence of sepsis (tachycardia likely fever mediated)
Conditions prior to admission:
1. Mast cell activation syndrome.
2. Chronic dystonic reaction.
3. Orthostatic hypotension with postural orthostatic and
tachycardia syndrome.
4. Dopa sensitive dystonia.
5. Steroid-induced diabetes.
6. Prior history of deep venous thrombosis and pulmonary embolism.
7. Chronic pain syndrome.
8. Migraine headaches.
9. Gastroesophageal reflux disease.
10. Benzodiazepine and opiate dependence.
11. Restless legs syndrome.
12. Insomnia.
13. History of vocal cord dysfunction.
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
15. Gastroparesis.
16. 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
17. 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
Plan:
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
PICC line removed and PICC line replaced on 09/23
Repeated blood cultures negative on 09/20 but no other cultures obtained
Finished cipro on 10/06/23 (was on 750mg BID)
GJ tube in place
Replaced by interventional radiology on 09/22
Replaced by interventional radiology 11/04 due to concern leakage
HX Recurrent Anaphylaxis / Mast Cell Flare Episodes on chronic steroids
Mast Cell Activation Syndrome
DOPA-Responsive Dystonia
-follows with Dr. Lizabeth Villanueva at [facility] hematology.
- Continue Ativan
�-cont Gleevac ,steroids
�--Levalbuterol as needed, to do her eyedrops
-Continue carbidopa levodopa
-prednisone continued
-Outpatient IV Benadryl drip at 15 milligram an hour upon presentation. As discussed with primary milk of lime slaker Dr. Mora plan is to slowly taper. Decreased Benadryl drip down to 8 mg an hour on 11/30
Multiple conversations with patient almost on a daily basis in regards to goals of care including attempt to wean off Benadryl drip with possibly substitution to oral regimen to facilitate discharge as well as outpatient management. Patient has
been resistant to wean off Benadryl drip completely at this point.
11/26. Multidisciplinary meeting including psychiatry, clinical pharmacy, medicine, nursing.
Patient clinical course along with medication regimen has been reviewed.
With the goal of minimize exposure to IV medications and optimize regimen following changes implemented:
-Daily IV fluids discontinued with plan to monitor oral intake and orthostatics.
� IV Benadryl pushes have been discontinued.
� Lorazepam sublingual as needed order has been discontinued.
IV lorazepam has been discontinued
Initiated:
Benadryl 25 mg infusion through piggyback will be provided over 10 minutes for breakthrough dystonic attack.
Benadryl p.o. 25 mg will be scheduled every 4 hours.
Lorazepam sublingual 1 mg with the scheduled while awake every 4 hours.
Hydromorphone p.o. 8 mg will be continued every 6 hours as needed for severe pain along with Suboxone.
12/02.
Multidisciplinary discussion involving nursing, primary service, psychiatry, pharmacy, case management
Plan is to continue current care including intravenous Benadryl drip wean. Schedule below:
Diphenhydramine continuous infusion taper schedule Q72hr
12/03 @12/06 @1259 � 7MG/HR
12/06 @12/09 @1259 � 6MG/HR
12/09 @12/12 @1259 � 5MG/HR
12/12 @12/15 @1259 � 4MG/HR
12/15 @1299 � 8 @1259 � 3MG/HR
12/18 @1299 � 8 @1259 � 2MG/HR
12/21 @1300 � 8/8 @1259 � 1MG/HR
12/24 @1300 � Stop infusion
Can consider increasing diphenhydramine PO up to max 300mg/day IF NEEDED. I would recommend increasing if episodes increase.
dystonia/movement disorder-patient apparently has dystonic features with her mast cell activation syndrome. I could not find in literature as a routine clinical presentation but according to patient apparently this is very unusual feature which was
noted in few other patients . She was on IV Benadryl pump at 15 mg/h at home.
-baclofen continued
-sinemet continued
-episodes with vasovagal response when trying to have a BM - start standing miralax and colace BID
Chronic pain syndrome-on high doses of narcotics (chronic opioid use with dependence) including p.o. Dilaudid and Suboxone at home. Again unclear the source of her pain.
GERD
-famotidine continued
-acipHex continued
-simethicone continued
iron def anemia
-ferrous sulfate continued
hxt of tachycardia
-EKG with sinus tachycardia
-propranolol continued
Chronic Nausea / Esophageal Dysmotility/gastroparesis
History GJ tube
�- Continue diet as tolerated.
�- Continue G-tube to gravity for chronic nausea.
�- Meds via J-tube.
-Zofran every 8 hours as needed
-Continue Pepcid
-emend continued
- PEG tube site without any signs of cellulitis. CT of the abdomen pelvis shows no subcutaneous collection around the PEG tube and it is in place.
Acute fractures of the left 6 anterolateral 6th and 7th ribs
-Suspect from recent fall on 10/03
-10/25 complains of pain on the posterolateral lower ribs
-Continue lidocaine patch, add heating packs
Steroid-Induced DM-II--
She remains on steady dose of prednisone
Blood glucose remains marginal
Monitor oral intake
Reduce Lantus and NovoLog AC
Continue serial Accu-Cheks with basal bolus protocol.
S/p fall overnight 10/03-10/04
imaging negative for bleed or fracture
Steroid-Induced Osteoporosis
Chronic Pain Syndrome secondary to the above on chronic opiates
�- Continue buprenorphine 2 mg 4 times daily , Dilaudid 8 mg as needed
�- PT / OT evaluations.
�- Follow-up with usual mechanical technical service specialist after discharge.
allergy induced asthma
chronic hypoxic respiratory failure--on O2
-albuterol continued
-budesonide continued
-cetirizine continued
-cromolyn continued
Thrush
Completed course of clotrimazole Troches for thrush
Migraine Hx
ODT Nurtec as needed
Restless leg syndrome
-Continue baclofen
History of DVT/PE
#Takes subcu Lovenox 100 mg twice daily
DNR on admission
Disposition: Discussion with primary milk of lime slaker Dr. Ethan Villanueva on 10/09. Discussed possibility of attempting weaning Benadryl drip likely could be done as outpatient. With current family social situation, unfortunately there is no options
for disposition other than home on IV infusion. Possibility of a transfer to [facility] discussed as well, although according to Dr. Villanueva hospital administration declined services due to complexity. Also discussed possibility of
transfer to tertiary center ([facility] declined in the past).
10/[address] Villanueva over the phone as well as [facility] transfer center.
Complex patient. Attempt to wean off Benadryl drip over the last 2 weeks with persistent dystonic episodes
While patient is relatively stable with her current condition, given complex clinical picture requiring multi disciplinary approach not limited to medicine, hematology, allergology, as well as neuropsychiatric assessment, patient would be better
served at a tertiary facility. Patient was accepted to [facility] for transfer, but hospital administration denied her transfer due to complexity (discussed with patient who is aware)
Physical Exam
General: Obese, no acute distress
HEENT: Normocephalic, Atraumatic, EOMI, MMM
Respiratory: Clear to Auscultation bilaterally
Cardiac: Normal S1/S2, Regular Rate and Rhythm
GI: Soft, +GJ tube, Nontender, Nondistended, Normal Bowel Sounds
MSK: Tenderness to palpation of the left posterolateral lateral ribs
Extremities: No Clubbing, Cyanosis, or Edema
Neuro: Nonfocal/Grossly Intact
Anticipated Discharge: > 48 hours
Subjective/Interval History
-
Date of Service: December 06, 2023
Patient continues to be nauseated, denies vomiting. No fever.
Objective Data
-
Vital Signs:
Vital Signs
Temp Pulse Resp BP Pulse Ox
98.3 F 103 16 108/80 97
12/06/23 08:02 12/06/23 07:51 12/06/23 07:51 12/06/23 00:00 12/06/23 07:51
I&O
12/05/23 12/06/23 12/07/23
06:59 06:59 06:59
Intake Total 780 / 780 1485 / 1485
Output Total 1250 / 1250 2600 / 2600
Balance -470 / -470 -1115 / -1115
[2023-12-06] MEDS: COLACE 100 MG PO ×2 (09:46→21:06)
[2023-12-06] MEDS: HYDREA 500 MG PO ×2 (09:47→21:07)
[2023-12-06] MEDS: SUBUTEX 2 MG SL ×4 (09:47→21:05)
[2023-12-06] MEDS: NON-FORMULARY ITEM 1 UNIT PO ×2 (09:50→21:10)
[2023-12-06] MEDS: NON-FORMULARY ITEM 1 MG PO ×2 (09:51→21:09)
[2023-12-06] MEDS: DELTASONE 10 MG TUBE ×2 (09:54→21:05)
[2023-12-06] MEDS: CLARITIN 10 MG TUBE (09:55)
[2023-12-06] MEDS: INDERAL 10 MG TUBE ×3 (09:56→21:04)
[2023-12-06] MEDS: DESENEX/MITRAZOL/ZEASORB 1 APPLIC TOPICAL ×2 (09:56→21:09)
[2023-12-06] MEDS: LOVENOX 100 MG SC ×2 (09:57→21:03)
[2023-12-06] MEDS: ZADITOR 1 DROP BOTH EYES ×2 (09:58→21:11)
[2023-12-06] MEDS: LIDOCAINE 4% PATCH 1 PATCH TOPICAL (09:58)
[2023-12-06] MEDS: VITAMIN B1 100 MG TUBE (09:58)
[2023-12-06] MEDS: PEPCID 40 MG IV ×2 (09:59→21:15)
[2023-12-06] MEDS: NSS (PRESERVATIVE FREE) 6 ML IV ×2 (10:00→21:16)
[2023-12-06] MEDS: NON-FORMULARY ITEM NASAL (10:01)
[2023-12-06] MEDS: MIRALAX TUBE (10:01)
[2023-12-06] MEDS: LANTUS 0.1 UNITS SC (10:24)
[2023-12-06] MEDS: NOVOLOG FLEXPEN-LOW RESISTANCE SC ×3 (10:25→17:49)
[2023-12-06] MEDS: NON-FORMULARY ITEM PO (10:25)
[2023-12-06] MEDS: NOVOLOG FLEXPEN SC (10:26)
[2023-12-06] MEDS: BENADRYL 50.5 MG IV ×2 (11:33→17:43)
[2023-12-06 12:00] VITALS: BP 112/78
[2023-12-06 12:27] LABS: Glucose - Point of Care 117 mg/dl (70-99)
--- NOTE | 2023-12-06 13:00 | PTCARENOTE ---
Patient had a dystonia episode around 11:30am, medicated with PRN benadryl bag as ordered. Provided ice bags and repositioning. Episode took half hour to resolve. Patient currently resting comfortably in bed. Offers no complaints at time.
Patient on RA while awake. Sp02 mid 90's. Vital signs stable. SR WITH hr 80-90'S.
[2023-12-06] MEDS: NOVOLOG FLEXPEN 3 UNITS SC ×2 (13:10→17:48)
[2023-12-06] MEDS: SINEMET 25-100 2 TABLET TUBE ×2 (13:11→17:11)
[2023-12-06] MEDS: NON-FORMULARY ITEM 200 MG PO (13:12)
--- NOTE | 2023-12-06 13:34 | CHAP ---
Mary was in a positive frame of mind during our visit at 10:45 today. She is using her inner gifts to process her experience, and drawing now on the Yarsanism formation she had growing up. She acknowledges the up and down nature of the journey,
and sees the mystery of suffering and rebirth in her own situation. Her name, 'Lubna,' means rebirth, she told me. We prayed together, giving thanks to God. She is always very appreciative of the support, which I assured her is on-going.
[2023-12-06 16:00] VITALS: BP 103/71
[2023-12-06] MEDS: ZYRTEC 10 MG TUBE ×2 (17:12→21:06)
[2023-12-06] MEDS: FLUSH (NSS) 3 FLUSH IV (17:45)
[2023-12-06 17:51] LABS: Glucose - Point of Care 121 mg/dl (70-99)
[2023-12-06 20:00] VITALS: BP 104/71
--- NOTE | 2023-12-06 20:00 | PTCARENOTE ---
Resumed care of pt sleeping in bed. Pt arousable to voice, AAOx3. Pt reports just feeling tired. HR in the 80's in NSR on the monitor. ST with activity. POX 96% on 2 LO2 NC. Lungs dec at bases. GJ tube in place, J clamped, G to gravity. + bowel,
round obese abd. Pure wick in place. Weak pedal pulses present. Pale skin. +1 GA. Left triple picc in place infusing Benadryl gtt @7ml/hr as ordered. Complete bed bath provided, oral care complete. Dressing changed around GJ tube. Nimco care
provided. Pt denies any complaints at this time. Will continue to monitor.
[2023-12-06] MEDS: FEOSOL 325 MG PO (21:05)
[2023-12-06 21:58] LABS: Glucose - Point of Care 111 mg/dl (70-99)
[2023-12-07] VITALS (9 sets, daily range): BP systolic 95–145; BP diastolic 60–101
[2023-12-07] MEDS: BENADRYL 250 MG IV ×2 (00:57→13:58)
[2023-12-07] MEDS: ATIVAN 1 MG SL ×6 (00:57→19:42)
[2023-12-07] MEDS: BENADRYL SOLUTION 25 MG TUBE ×6 (01:00→21:43)
[2023-12-07] MEDS: SINEMET 25-100 1.5 TABLET TUBE ×2 (05:03→10:01)
[2023-12-07] MEDS: LIORESAL 10 MG TUBE ×3 (05:03→21:44)
--- NOTE | 2023-12-07 05:50 | PTCARENOTE ---
Pt slept well overnight. No Mast Cell episodes overnight. Vital signs stable. Pt denies any complaints. Benadryl gtt infusing as ordered. Will continue to monitor.
[2023-12-07] MEDS: PULMICORT 0.5 MG INH ×2 (07:56→19:58)
[2023-12-07] MEDS: DUONEB 3 ML INH ×2 (07:56→20:18)
[2023-12-07] MEDS: BENADRYL 50.5 MG IV ×2 (08:03→16:10)
[2023-12-07] MEDS: ZOFRAN 4 MG IV ×2 (08:04→17:09)
[2023-12-07] MEDS: SUBUTEX 2 MG SL ×4 (08:06→21:44)
[2023-12-07] MEDS: FLUSH (NSS) 1 FLUSH IV (08:07)
--- NOTE | 2023-12-07 08:31 | W.PN.HOSP.TC ---
Today's Communication/Plan
-
see bold
Assessment / Plan
Assessment / Plan
Impression:
Gram-negative bacteremia due to chronic infected PICC line.
Fever on admission with no evidence of sepsis (tachycardia likely fever mediated)
Conditions prior to admission:
1. Mast cell activation syndrome.
2. Chronic dystonic reaction.
3. Orthostatic hypotension with postural orthostatic and
tachycardia syndrome.
4. Dopa sensitive dystonia.
5. Steroid-induced diabetes.
6. Prior history of deep venous thrombosis and pulmonary embolism.
7. Chronic pain syndrome.
8. Migraine headaches.
9. Gastroesophageal reflux disease.
10. Benzodiazepine and opiate dependence.
11. Restless legs syndrome.
12. Insomnia.
13. History of vocal cord dysfunction.
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
15. Gastroparesis.
16. 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
17. 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
Plan:
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
PICC line removed and PICC line replaced on 09/23
Repeated blood cultures negative on 09/20 but no other cultures obtained
Finished cipro on 10/06/23 (was on 750mg BID)
GJ tube in place
Replaced by interventional radiology on 09/22
Replaced by interventional radiology 11/04 due to concern leakage
HX Recurrent Anaphylaxis / Mast Cell Flare Episodes on chronic steroids
Mast Cell Activation Syndrome
DOPA-Responsive Dystonia
-follows with Dr. Lizabeth Villanueva at [facility] hematology.
- Continue Ativan
�-cont Gleevac ,steroids
�--Levalbuterol as needed, to do her eyedrops
-Continue carbidopa levodopa
-prednisone continued
-Outpatient IV Benadryl drip at 15 milligram an hour upon presentation. As discussed with primary emotional disabilities teacher Dr. Mora plan is to slowly taper. Decreased Benadryl drip down to 8 mg an hour on 11/30
Multiple conversations with patient almost on a daily basis in regards to goals of care including attempt to wean off Benadryl drip with possibly substitution to oral regimen to facilitate discharge as well as outpatient management. Patient has
been resistant to wean off Benadryl drip completely at this point.
11/26. Multidisciplinary meeting including psychiatry, clinical pharmacy, medicine, nursing.
Patient clinical course along with medication regimen has been reviewed.
With the goal of minimize exposure to IV medications and optimize regimen following changes implemented:
-Daily IV fluids discontinued with plan to monitor oral intake and orthostatics.
� IV Benadryl pushes have been discontinued.
� Lorazepam sublingual as needed order has been discontinued.
IV lorazepam has been discontinued
Initiated:
Benadryl 25 mg infusion through piggyback will be provided over 10 minutes for breakthrough dystonic attack.
Benadryl p.o. 25 mg will be scheduled every 4 hours.
Lorazepam sublingual 1 mg with the scheduled while awake every 4 hours.
Hydromorphone p.o. 8 mg will be continued every 6 hours as needed for severe pain along with Suboxone.
12/02.
Multidisciplinary discussion involving nursing, primary service, psychiatry, pharmacy, case management
Plan is to continue current care including intravenous Benadryl drip wean. Schedule below:
Diphenhydramine continuous infusion taper schedule Q72hr
12/03 @12/06 @1259 � 7MG/HR
12/06 @12/09 @1259 � 6MG/HR
12/09 @12/12 @1259 � 5MG/HR
12/12 @12/15 @1259 � 4MG/HR
12/15 @1299 � 8 @1259 � 3MG/HR
12/18 @1299 � 8 @1259 � 2MG/HR
12/21 @1300 � 8/8 @1259 � 1MG/HR
12/24 @1300 � Stop infusion
Can consider increasing diphenhydramine PO up to max 300mg/day IF NEEDED. I would recommend increasing if episodes increase.
dystonia/movement disorder-patient apparently has dystonic features with her mast cell activation syndrome. I could not find in literature as a routine clinical presentation but according to patient apparently this is very unusual feature which was
noted in few other patients . She was on IV Benadryl pump at 15 mg/h at home.
-baclofen continued
-sinemet continued
-episodes with vasovagal response when trying to have a BM - start standing miralax and colace BID
Chronic pain syndrome-on high doses of narcotics (chronic opioid use with dependence) including p.o. Dilaudid and Suboxone at home. Again unclear the source of her pain.
GERD
-famotidine continued
-acipHex continued
-simethicone continued
iron def anemia
-ferrous sulfate continued
hxt of tachycardia
-EKG with sinus tachycardia
-propranolol continued
Chronic Nausea / Esophageal Dysmotility/gastroparesis
History GJ tube
�- Continue diet as tolerated.
�- Continue G-tube to gravity for chronic nausea.
�- Meds via J-tube.
-Zofran every 8 hours as needed
-Continue Pepcid
-emend continued
- PEG tube site without any signs of cellulitis. CT of the abdomen pelvis shows no subcutaneous collection around the PEG tube and it is in place.
Acute fractures of the left 6 anterolateral 6th and 7th ribs
-Suspect from recent fall on 10/03
-10/25 complains of pain on the posterolateral lower ribs
-Continue lidocaine patch, add heating packs
Steroid-Induced DM-II--
She remains on steady dose of prednisone
Blood glucose remains marginal
Monitor oral intake
Reduce Lantus and NovoLog AC
Continue serial Accu-Cheks with basal bolus protocol.
S/p fall overnight 10/03-10/04
imaging negative for bleed or fracture
Steroid-Induced Osteoporosis
Chronic Pain Syndrome secondary to the above on chronic opiates
�- Continue buprenorphine 2 mg 4 times daily , Dilaudid 8 mg as needed
�- PT / OT evaluations.
�- Follow-up with usual senior education specialist after discharge.
allergy induced asthma
chronic hypoxic respiratory failure--on O2
-albuterol continued
-budesonide continued
-cetirizine continued
-cromolyn continued
Thrush
Completed course of clotrimazole Troches for thrush
Migraine Hx
ODT Nurtec as needed
Restless leg syndrome
-Continue baclofen
History of DVT/PE
#Takes subcu Lovenox 100 mg twice daily
DNR on admission
Disposition: Discussion with primary emotional disabilities teacher Dr. Ethan Villanueva on 10/09. Discussed possibility of attempting weaning Benadryl drip likely could be done as outpatient. With current family social situation, unfortunately there is no options
for disposition other than home on IV infusion. Possibility of a transfer to [facility] discussed as well, although according to Dr. Villanueva hospital administration declined services due to complexity. Also discussed possibility of
transfer to tertiary center ([facility] declined in the past).
10/[address] Villanueva over the phone as well as [facility] transfer center.
Complex patient. Attempt to wean off Benadryl drip over the last 2 weeks with persistent dystonic episodes
While patient is relatively stable with her current condition, given complex clinical picture requiring multi disciplinary approach not limited to medicine, hematology, allergology, as well as neuropsychiatric assessment, patient would be better
served at a tertiary facility. Patient was accepted to [facility] for transfer, but hospital administration denied her transfer due to complexity (discussed with patient who is aware)
Physical Exam
General: Obese, no acute distress
HEENT: Normocephalic, Atraumatic, EOMI, MMM
Respiratory: Clear to Auscultation bilaterally
Cardiac: Normal S1/S2, Regular Rate and Rhythm
GI: Soft, +GJ tube, Nontender, Nondistended, Normal Bowel Sounds
MSK: Tenderness to palpation of the left posterolateral lateral ribs
Extremities: No Clubbing, Cyanosis, or Edema
Neuro: Nonfocal/Grossly Intact
Anticipated Discharge: > 48 hours
Subjective/Interval History
-
Date of Service: December 07, 2023
Patient continues to have intermittent dystonic reactions. She is also nauseous. No fever.
Objective Data
-
Vital Signs:
Vital Signs
Temp Pulse Resp BP Pulse Ox
98.2 F 110 16 119/88 96
12/07/23 07:35 12/07/23 08:17 12/07/23 07:59 12/07/23 08:17 12/07/23 07:59
I&O
12/06/23 12/07/23 12/08/23
06:59 06:59 06:59
Intake Total 1485 / 1485 1363 / 1363
Output Total 2600 / 2600 1909
Balance -1115 / -1115 -547 / -547
[2023-12-07 09:03] LABS: Glucose - Point of Care 94 mg/dl (70-99)
[2023-12-07] MEDS: LIDOCAINE 4% PATCH 1 PATCH TOPICAL (09:59)
[2023-12-07] MEDS: GASTROCROM 300 MG PO ×4 (09:59→21:44)
[2023-12-07] MEDS: LOVENOX 100 MG SC ×2 (09:59→19:44)
[2023-12-07] MEDS: NSS (PRESERVATIVE FREE) 6 ML IV ×2 (10:00→19:44)
[2023-12-07] MEDS: PEPCID 40 MG IV ×2 (10:00→19:44)
[2023-12-07] MEDS: ZADITOR 1 DROP BOTH EYES ×2 (10:01→19:45)
[2023-12-07] MEDS: CLARITIN 10 MG TUBE (10:01)
[2023-12-07] MEDS: DELTASONE 10 MG TUBE ×2 (10:01→19:43)
[2023-12-07] MEDS: VITAMIN B1 100 MG TUBE (10:01)
[2023-12-07] MEDS: COLACE 100 MG PO ×2 (10:02→19:42)
[2023-12-07] MEDS: HYDREA 500 MG PO ×2 (10:02→19:43)
[2023-12-07] MEDS: DESENEX/MITRAZOL/ZEASORB 1 APPLIC TOPICAL ×2 (10:02→19:43)
[2023-12-07] MEDS: NOVOLOG FLEXPEN-LOW RESISTANCE SC ×3 (10:03→18:27)
[2023-12-07] MEDS: NOVOLOG FLEXPEN 3 UNITS SC ×3 (10:03→18:26)
[2023-12-07] MEDS: LANTUS 0.1 UNITS SC (10:07)
[2023-12-07] MEDS: NON-FORMULARY ITEM NASAL (10:08)
[2023-12-07] MEDS: NON-FORMULARY ITEM 1 MG PO ×2 (10:10→19:46)
[2023-12-07] MEDS: NON-FORMULARY ITEM 1 UNIT PO ×2 (10:13→19:45)
[2023-12-07] MEDS: MIRALAX 17 GRAMS TUBE (10:14)
[2023-12-07] MEDS: INDERAL TUBE ×2 (12:07→17:44)
[2023-12-07] MEDS: NON-FORMULARY ITEM PO (12:08)
[2023-12-07 12:18] LABS: Glucose - Point of Care 132 mg/dl (70-99)
[2023-12-07] MEDS: BENADRYL IV (13:36)
[2023-12-07] MEDS: NON-FORMULARY ITEM 200 MG PO (13:38)
[2023-12-07] MEDS: SINEMET 25-100 2 TABLET TUBE ×2 (13:38→17:14)
[2023-12-07] MEDS: INDERAL 10 MG TUBE ×2 (13:56→21:45)
[2023-12-07 15:06] LABS: Blood Urea Nitrogen 5 mg/dl (7-17); Calcium 9.4 mg/dl (8.4-10.2); Carbon Dioxide 26 mmol/L (22-30); Chloride 105 mmol/L (98-107); Estimated Creatinine Clearance > 125 ml/min; Glucose 147 mg/dl (70-99); Potassium 3.8 mmol/L (3.5-5.1); Sodium 139 mmol/L (135-145); eGFR > 60.00
[2023-12-07] MEDS: ZYRTEC 10 MG TUBE ×2 (17:17→21:44)
--- NOTE | 2023-12-07 17:35 | PTCARENOTE ---
Patient benadryl drip is currently at 6mg/mls/hr. via triple lumen PICC. Patient had two dystonic attacks today. Patient using o2 2L at HS or during dystonic episodes. Patient requested zofran today for intermittent nausea. Pure wick in use,
patient voiding large amounts of urine. No BM today. Vital signs stable, afebrile. Using call sanchez appropriately. SR/ST on monitor.
[2023-12-07 18:20] LABS: Glucose - Point of Care 131 mg/dl (70-99)
--- NOTE | 2023-12-07 20:00 | PTCARENOTE ---
Rec'd pt resting in bed, comfortable, ST, BP stable, RA, sat 98, wears 2 liters nc prn, lungs decr in bases, + bowel sounds, no bm, g tube to str drainage bag, J tube clamped for meds, no n/v, purewick in place, benadryl gtt at 6mg/hr
[2023-12-07 21:24] LABS: Glucose - Point of Care 147 mg/dl (70-99)
[2023-12-07] MEDS: FEOSOL 325 MG PO (21:43)
[2023-12-08] VITALS: BP 104/70
[2023-12-08] MEDS: ATIVAN 1 MG SL ×7 (00:53→23:45)
[2023-12-08] MEDS: BENADRYL SOLUTION 25 MG TUBE ×6 (00:53→21:23)
[2023-12-08 04:00] VITALS: BP 104/78
[2023-12-08] MEDS: SINEMET 25-100 1.5 TABLET TUBE ×2 (05:04→09:33)
[2023-12-08] MEDS: LIORESAL 10 MG TUBE ×3 (05:04→21:24)
[2023-12-08] MEDS: PULMICORT 0.5 MG INH ×2 (07:53→19:37)
[2023-12-08 09:12] LABS: Glucose - Point of Care 104 mg/dl (70-99)
[2023-12-08] MEDS: NOVOLOG FLEXPEN-LOW RESISTANCE SC ×3 (09:23→17:19)
[2023-12-08] MEDS: LANTUS 0.1 UNITS SC (09:30)
[2023-12-08] MEDS: LOVENOX 100 MG SC ×2 (09:31→21:09)
[2023-12-08] MEDS: LIDOCAINE 4% PATCH 1 PATCH TOPICAL (09:31)
[2023-12-08] MEDS: GASTROCROM 300 MG PO ×4 (09:32→21:23)
[2023-12-08] MEDS: CLARITIN 10 MG TUBE (09:32)
[2023-12-08] MEDS: COLACE 100 MG PO ×2 (09:33→21:08)
[2023-12-08] MEDS: DELTASONE 10 MG TUBE ×2 (09:33→21:10)
[2023-12-08] MEDS: INDERAL 10 MG TUBE ×3 (09:33→21:24)
[2023-12-08] MEDS: VITAMIN B1 100 MG TUBE (09:33)
[2023-12-08] MEDS: SUBUTEX 2 MG SL ×4 (09:34→21:24)
[2023-12-08] MEDS: HYDREA 500 MG PO ×2 (09:34→21:10)
[2023-12-08] MEDS: MIRALAX TUBE (09:34)
[2023-12-08] MEDS: PEPCID 40 MG IV ×2 (09:35→21:09)
[2023-12-08] MEDS: NSS (PRESERVATIVE FREE) 6 ML IV ×2 (09:35→21:09)
[2023-12-08] MEDS: DESENEX/MITRAZOL/ZEASORB 1 APPLIC TOPICAL ×2 (09:35→21:10)
[2023-12-08] MEDS: NON-FORMULARY ITEM 1 MG PO ×2 (09:37→21:11)
[2023-12-08] MEDS: ZADITOR 1 DROP BOTH EYES ×2 (09:37→21:12)
[2023-12-08] MEDS: NON-FORMULARY ITEM 1 UNIT PO ×2 (09:37→21:12)
[2023-12-08] MEDS: NON-FORMULARY ITEM NASAL (09:38)
[2023-12-08] MEDS: NON-FORMULARY ITEM PO (09:38)
[2023-12-08] MEDS: ZOFRAN 4 MG IV ×3 (09:43→23:49)
[2023-12-08] MEDS: NOVOLOG FLEXPEN 3 UNITS SC ×3 (09:44→18:26)
[2023-12-08] MEDS: BENADRYL 50.5 MG IV ×3 (11:32→23:49)
[2023-12-08 12:00] VITALS: BP 121/86
[2023-12-08 12:57] LABS: Glucose - Point of Care 144 mg/dl (70-99)
--- NOTE | 2023-12-08 13:11 | PTCARENOTE ---
Pt. w [facility]AS reaction @ 1132, IV Benadryl prn and standing SL Ativan admin- see JUL. Assisted pt w repositioning/ applying ice packs to ease episode. S/P interventions pt reaction improved, baseline achieved. Call sanchez remain w in reach.
--- NOTE | 2023-12-08 13:54 | W.PN.HOSP.TC ---
Today's Communication/Plan
-
Continue Benadryl drip weaning
Assessment / Plan
Assessment / Plan
Impression:
Gram-negative bacteremia due to chronic infected PICC line.
Fever on admission with no evidence of sepsis (tachycardia likely fever mediated)
Conditions prior to admission:
1. Mast cell activation syndrome.
2. Chronic dystonic reaction.
3. Orthostatic hypotension with postural orthostatic and
tachycardia syndrome.
4. Dopa sensitive dystonia.
5. Steroid-induced diabetes.
6. Prior history of deep venous thrombosis and pulmonary embolism.
7. Chronic pain syndrome.
8. Migraine headaches.
9. Gastroesophageal reflux disease.
10. Benzodiazepine and opiate dependence.
11. Restless legs syndrome.
12. Insomnia.
13. History of vocal cord dysfunction.
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
15. Gastroparesis.
16. 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
17. 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
Plan:
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
PICC line removed and PICC line replaced on 09/23
Repeated blood cultures negative on 09/20 but no other cultures obtained
Finished cipro on 10/06/23 (was on 750mg BID)
GJ tube in place
Replaced by interventional radiology on 09/22
Replaced by interventional radiology 11/04 due to concern leakage
HX Recurrent Anaphylaxis / Mast Cell Flare Episodes on chronic steroids
Mast Cell Activation Syndrome
DOPA-Responsive Dystonia
-follows with Dr. Lizabeth Villanueva at [facility] hematology.
- Continue Ativan
�-cont Gleevac ,steroids
�--Levalbuterol as needed, to do her eyedrops
-Continue carbidopa levodopa
-prednisone continued
-Outpatient IV Benadryl ip at 15 milligram an hour upon presentation. As discussed with primary mat man Dr. Mora plan is to slowly taper. Decreased Benadryl drip down to 8 mg an hour on 11/30
Multiple conversations with patient almost on a daily basis in regards to goals of care including attempt to wean off Benadryl drip with possibly substitution to oral regimen to facilitate discharge as well as outpatient management. Patient has
been resistant to wean off Benadryl drip completely at this point.
11/26. Multidisciplinary meeting including psychiatry, clinical pharmacy, medicine, nursing.
Patient clinical course along with medication regimen has been reviewed.
With the goal of minimize exposure to IV medications and optimize regimen following changes implemented:
-Daily IV fluids discontinued with plan to monitor oral intake and orthostatics.
� IV Benadryl pushes have been discontinued.
� Lorazepam sublingual as needed order has been discontinued.
IV lorazepam has been discontinued
Initiated:
Benadryl 25 mg infusion through piggyback will be provided over 10 minutes for breakthrough dystonic attack.
Benadryl p.o. 25 mg will be scheduled every 4 hours.
Lorazepam sublingual 1 mg with the scheduled while awake every 4 hours.
Hydromorphone p.o. 8 mg will be continued every 6 hours as needed for severe pain along with Suboxone.
12/02.
Multidisciplinary discussion involving nursing, primary service, psychiatry, pharmacy, case management
Plan is to continue current care including intravenous Benadryl drip wean. Schedule below:
Diphenhydramine continuous infusion taper schedule Q72hr
12/03 @12/06 @1259 � 7MG/HR
12/06 @12/09 @1259 � 6MG/HR
12/09 @12/12 @1259 � 5MG/HR
12/12 @12/15 @1259 � 4MG/HR
12/15 @1299 � 8 @1259 � 3MG/HR
12/18 @1299 � 8 @1259 � 2MG/HR
8/5 @1300 � 8/8 @1259 � 1MG/HR
12/24 @1300 � Stop infusion
Can consider increasing diphenhydramine PO up to max 300mg/day IF NEEDED. I would recommend increasing if episodes increase.
dystonia/movement disorder-patient apparently has dystonic features with her mast cell activation syndrome. I could not find in literature as a routine clinical presentation but according to patient apparently this is very unusual feature which was
noted in few other patients . She was on IV Benadryl pump at 15 mg/h at home.
-baclofen continued
-sinemet continued
-episodes with vasovagal response when trying to have a BM - start standing miralax and colace BID
Chronic pain syndrome-on high doses of narcotics (chronic opioid use with dependence) including p.o. Dilaudid and Suboxone at home. Again unclear the source of her pain.
GERD
-famotidine continued
-acipHex continued
-simethicone continued
iron def anemia
-ferrous sulfate continued
hxt of tachycardia
-EKG with sinus tachycardia
-propranolol continued
Chronic Nausea / Esophageal Dysmotility/gastroparesis
History GJ tube
�- Continue diet as tolerated.
�- Continue G-tube to gravity for chronic nausea.
�- Meds via J-tube.
-Zofran every 8 hours as needed
-Continue Pepcid
-emend continued
- PEG tube site without any signs of cellulitis. CT of the abdomen pelvis shows no subcutaneous collection around the PEG tube and it is in place.
Acute fractures of the left 6 anterolateral 6th and 7th ribs
-Suspect from recent fall on 10/03
-10/25 complains of pain on the posterolateral lower ribs
-Continue lidocaine patch, add heating packs
Steroid-Induced DM-II--
She remains on steady dose of prednisone
Blood glucose remains marginal
Monitor oral intake
Reduce Lantus and NovoLog AC
Continue serial Accu-Cheks with basal bolus protocol.
S/p fall overnight 10/03-10/04
imaging negative for bleed or fracture
Steroid-Induced Osteoporosis
Chronic Pain Syndrome secondary to the above on chronic opiates
�- Continue buprenorphine 2 mg 4 times daily , Dilaudid 8 mg as needed
�- PT / OT evaluations.
�- Follow-up with usual occupational safety specialist after discharge.
allergy induced asthma
chronic hypoxic respiratory failure--on O2
-albuterol continued
-budesonide continued
-cetirizine continued
-cromolyn continued
Thrush
Completed course of clotrimazole Troches for thrush
Migraine Hx
ODT Nurtec as needed
Restless leg syndrome
-Continue baclofen
History of DVT/PE
#Takes subcu Lovenox 100 mg twice daily
DNR on admission
Disposition: Discussion with primary mat man Dr. Ethan Villanueva on 10/09. Discussed possibility of attempting weaning Benadryl drip likely could be done as outpatient. With current family social situation, unfortunately there is no options
for disposition other than home on IV infusion. Possibility of a transfer to [facility] discussed as well, although according to Dr. Villanueva hospital administration declined services due to complexity. Also discussed possibility of
transfer to tertiary center ([facility] declined in the past).
10/[address] Villanueva over the phone as well as [facility] transfer center.
Complex patient. Attempt to wean off Benadryl drip over the last 2 weeks with persistent dystonic episodes
While patient is relatively stable with her current condition, given complex clinical picture requiring multi disciplinary approach not limited to medicine, hematology, allergology, as well as neuropsychiatric assessment, patient would be better
served at a tertiary facility. Patient was accepted to [facility] for transfer, but hospital administration denied her transfer due to complexity (discussed with patient who is aware)
Physical Exam
General: Obese, no acute distress
HEENT: Normocephalic, Atraumatic, EOMI, MMM
Respiratory: Clear to Auscultation bilaterally
Cardiac: Normal S1/S2, Regular Rate and Rhythm
GI: Soft, +GJ tube, Nontender, Nondistended, Normal Bowel Sounds
MSK: Tenderness to palpation of the left posterolateral lateral ribs
Extremities: No Clubbing, Cyanosis, or Edema
Neuro: Nonfocal/Grossly Intact
Anticipated Discharge: > 48 hours
Subjective/Interval History
-
Date of Service: December 08, 2023
Objective Data
-
Vital Signs:
Vital Signs
Temp Pulse Resp BP Pulse Ox
98.1 F 116 12 104/78 97
12/08/23 12:44 12/08/23 08:02 12/08/23 08:02 12/08/23 04:00 12/08/23 10:38
I&O
12/07/23 12/08/23 12/09/23
06:59 06:59 06:59
Intake Total 1363 / 1363 1817 / 1817 300 / 300
Output Total 191 / 1910 2700 / 2700 700 / 700
Balance -547 / -547 -883 / -883 -400 / -400
Physical Exam
-
General: Well Developed and No Apparent Distress
HEENT: Normocephalic, Atraumatic and Moist Mucous Membranes
Respiratory: Clear to Auscultation
Cardiac: Regular Rhythm and S1/S2; Negative Murmur, Rub or Gallop
GI: Soft, Nontender, Nondistended and Normal Bowel Sounds; Negative Organomegaly
Rectal: Deferred by Provider
Musculoskeletal: No Clubbing, No Cyanosis and No Edema
Skin: Negative Rash
Neuro: Nonfocal/Grossly Intact
[2023-12-08] MEDS: SINEMET 25-100 2 TABLET TUBE ×2 (13:57→17:09)
[2023-12-08] MEDS: NON-FORMULARY ITEM 200 MG PO (13:58)
[2023-12-08 16:00] VITALS: BP 110/78
[2023-12-08] MEDS: BENADRYL 250 MG IV (16:51)
[2023-12-08] MEDS: ZYRTEC 10 MG TUBE ×2 (17:09→21:26)
[2023-12-08 17:30] LABS: Glucose - Point of Care 113 mg/dl (70-99)
[2023-12-08 20:00] VITALS: BP 116/81
[2023-12-08] MEDS: ATIVAN SL (21:08)
[2023-12-08] MEDS: FEOSOL 325 MG PO (21:14)
[2023-12-08 21:24] VITALS: BP 104/73
[2023-12-08 22:02] LABS: Glucose - Point of Care 136 mg/dl (70-99)
[2023-12-09] VITALS (9 sets, daily range): BP systolic 98–122; BP diastolic 60–96; PULSE 98; O2SAT 97–108; BMI 36.1
[2023-12-09] MEDS: BENADRYL SOLUTION 25 MG TUBE ×6 (03:10→21:33)
[2023-12-09] MEDS: ATIVAN 1 MG SL ×5 (04:05→21:27)
--- NOTE | 2023-12-09 04:20 | PTCARENOTE ---
Pt having one episode over night. Assessment care and vitals as charted.
[2023-12-09] MEDS: SINEMET 25-100 1.5 TABLET TUBE ×2 (05:29→09:19)
[2023-12-09] MEDS: LIORESAL 10 MG TUBE ×3 (05:29→21:31)
[2023-12-09] MEDS: PULMICORT 0.5 MG INH ×2 (07:23→19:21)
[2023-12-09 07:59] LABS: Glucose - Point of Care 97 mg/dl (70-99)
[2023-12-09] MEDS: NOVOLOG FLEXPEN-LOW RESISTANCE SC ×3 (08:02→17:48)
--- NOTE | 2023-12-09 08:59 | CM ---
Patient with Hx Mast Cell Activation Syndrome, dystonia/movement disorder, chronic pain syndrome, gastroparesis with Dx Gram-negative bacteremia due to chronic infected PICC line. O2 2L.
Reviewed [facility] responses; [facility] has declined to accept.
Phone call to [facility] [employer] Leni Hahn [facility] [employer] ([place] [phone]); left message requesting callback with update as to whether the RN Agency arrangements are completed.
Case discussed yesterday with Susanna Farrell.
Plan follow up with Leni Hahn [employer] re; home RN agency arrangements.
[2023-12-09] MEDS: GASTROCROM 300 MG PO ×4 (09:19→21:31)
[2023-12-09] MEDS: DESENEX/MITRAZOL/ZEASORB 1 APPLIC TOPICAL ×2 (09:20→21:27)
[2023-12-09] MEDS: LIDOCAINE 4% PATCH 1 PATCH TOPICAL (09:20)
[2023-12-09] MEDS: PEPCID 40 MG IV ×2 (09:21→21:30)
[2023-12-09] MEDS: VITAMIN B1 100 MG TUBE (09:21)
[2023-12-09] MEDS: CLARITIN 10 MG TUBE (09:21)
[2023-12-09] MEDS: NSS (PRESERVATIVE FREE) 6 ML IV ×2 (09:21→21:29)
[2023-12-09] MEDS: DELTASONE 10 MG TUBE ×2 (09:22→21:27)
[2023-12-09] MEDS: INDERAL 10 MG TUBE ×3 (09:22→21:33)
[2023-12-09] MEDS: HYDREA 500 MG PO ×2 (09:22→21:28)
[2023-12-09] MEDS: COLACE 100 MG PO ×2 (09:22→21:27)
[2023-12-09] MEDS: SUBUTEX 2 MG SL ×4 (09:22→21:31)
[2023-12-09] MEDS: LOVENOX 100 MG SC ×2 (09:23→21:29)
[2023-12-09] MEDS: LANTUS 0.1 UNITS SC (09:26)
[2023-12-09] MEDS: NOVOLOG FLEXPEN SC ×2 (09:26→11:07)
[2023-12-09] MEDS: NON-FORMULARY ITEM 1 UNIT PO ×2 (09:27→21:28)
[2023-12-09] MEDS: NON-FORMULARY ITEM 1 MG PO ×2 (09:28→21:28)
[2023-12-09] MEDS: NON-FORMULARY ITEM NASAL (09:30)
[2023-12-09] MEDS: NON-FORMULARY ITEM PO (09:30)
[2023-12-09] MEDS: ZADITOR 1 DROP BOTH EYES ×2 (09:31→21:30)
[2023-12-09] MEDS: ZOFRAN 4 MG IV ×3 (09:46→22:27)
[2023-12-09] MEDS: MIRALAX TUBE (10:02)
[2023-12-09] MEDS: BENADRYL 50.5 MG IV ×3 (11:58→21:51)
[2023-12-09] MEDS: DUONEB 3 ML INH (11:59)
--- NOTE | 2023-12-09 12:22 | PTCARENOTE ---
Pt with dystonic episode. Medicated with PRN Benadryl infusion and standing SL Ativan and Subutex. Ice packs applied for comfort.
[2023-12-09 12:43] LABS: Glucose - Point of Care 123 mg/dl (70-99)
[2023-12-09] MEDS: NOVOLOG FLEXPEN 3 UNITS SC ×2 (12:45→17:49)
[2023-12-09] MEDS: TYLENOL 650 MG PO (12:46)
[2023-12-09 13:16] LABS: % Basophils 0.4 % (0-2); % Eosinophils 0.6 % (0-6); % Immature Granulocytes 0.5 % (0-0.5); % Lymphocytes 22.8 % (20.5-51.1); % Monocytes 7.9 % (1.7-9.3); % Neutrophils 67.8 % (42.2-75.2); Absolute Eosinophils 0.1 10^3/uL (0-0.7); Absolute Lymphocytes 1.9 10^3/uL (1.2-3.4); Absolute Monocytes 0.6 10^3/uL (0.1-0.6); Absolute Neutrophils 5.5 10^3/uL (1.4-6.5); Hematocrit 34.5 % (37.0-47.0); Hemoglobin 11.7 g/dL (12.0-16.0); Mean Corp Hgb Conc. 33.9 g/dL (33.0-37.0); Mean Corpuscular Hgb 36.9 pg (27.0-31.0); Mean Corpuscular Volume 108.8 fL (81.0-99.0); Mean Platelet Volume 9.5 fL (7.4-10.4); Nucleated Red Blood Cells % 0 %; Platelet Count 239 10^3/uL (130-400); Red Blood Cell Count 3.17 10^6/uL (4.20-5.40); Red Cell Dist. Width 17.7 % (11.5-14.5); White Blood Cell Count 8.1 10^3/uL (4.8-10.8)
--- NOTE | 2023-12-09 14:18 | W.PN.HOSP.TC ---
Today's Communication/Plan
-
Continue IV Benadryl taper
Assessment / Plan
Assessment / Plan
Impression:
Gram-negative bacteremia due to chronic infected PICC line.
Fever on admission with no evidence of sepsis (tachycardia likely fever mediated)
Conditions prior to admission:
1. Mast cell activation syndrome.
2. Chronic dystonic reaction.
3. Orthostatic hypotension with postural orthostatic and
tachycardia syndrome.
4. Dopa sensitive dystonia.
5. Steroid-induced diabetes.
6. Prior history of deep venous thrombosis and pulmonary embolism.
7. Chronic pain syndrome.
8. Migraine headaches.
9. Gastroesophageal reflux disease.
10. Benzodiazepine and opiate dependence.
11. Restless legs syndrome.
12. Insomnia.
13. History of vocal cord dysfunction.
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
15. Gastroparesis.
16. 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
17. 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
Plan:
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
PICC line removed and PICC line replaced on 09/23
Repeated blood cultures negative on 09/20 but no other cultures obtained
Finished cipro on 10/06/23 (was on 750mg BID)
GJ tube in place
Replaced by interventional radiology on 09/22
Replaced by interventional radiology 11/04 due to concern leakage
HX Recurrent Anaphylaxis / Mast Cell Flare Episodes on chronic steroids
Mast Cell Activation Syndrome
DOPA-Responsive Dystonia
-follows with Dr. Lizabeth Villanueva at [facility] hematology.
- Continue Ativan
�-cont Gleevac ,steroids
�--Levalbuterol as needed, to do her eyedrops
-Continue carbidopa levodopa
-prednisone continued
-Outpatient IV Benadryl drip at 15 milligram an hour upon presentation. As discussed with primary gem setter Dr. Mora plan is to slowly taper. Decreased Benadryl drip down to 8 mg an hour on 11/30
Multiple conversations with patient almost on a daily basis in regards to goals of care including attempt to wean off Benadryl drip with possibly substitution to oral regimen to facilitate discharge as well as outpatient management. Patient has
been resistant to wean off Benadryl drip completely at this point.
11/26. Multidisciplinary meeting including psychiatry, clinical pharmacy, medicine, nursing.
Patient clinical course along with medication regimen has been reviewed.
With the goal of minimize exposure to IV medications and optimize regimen following changes implemented:
-Daily IV fluids discontinued with plan to monitor oral intake and orthostatics.
� IV Benadryl pushes have been discontinued.
� Lorazepam sublingual as needed order has been discontinued.
IV lorazepam has been discontinued
Initiated:
Benadryl 25 mg infusion through piggyback will be provided over 10 minutes for breakthrough dystonic attack.
Benadryl p.o. 25 mg will be scheduled every 4 hours.
Lorazepam sublingual 1 mg with the scheduled while awake every 4 hours.
Hydromorphone p.o. 8 mg will be continued every 6 hours as needed for severe pain along with Suboxone.
12/02.
Multidisciplinary discussion involving nursing, primary service, psychiatry, pharmacy, case management
Plan is to continue current care including intravenous Benadryl drip wean. Schedule below:
Diphenhydramine continuous infusion taper schedule Q72hr
12/03 @12/06 @1259 � 7MG/HR
12/06 @12/09 @1259 � 6MG/HR
12/09 @12/12 @1259 � 5MG/HR
12/12 @12/15 @1259 � 4MG/HR
12/15 @1299 � 8 @1259 � 3MG/HR
12/18 @1299 � 8 @1259 � 2MG/HR
8/5 @1300 � 8/8 @1259 � 1MG/HR
12/24 @1300 � Stop infusion
Can consider increasing diphenhydramine PO up to max 300mg/day IF NEEDED. I would recommend increasing if episodes increase.
dystonia/movement disorder-patient apparently has dystonic features with her mast cell activation syndrome. I could not find in literature as a routine clinical presentation but according to patient apparently this is very unusual feature which was
noted in few other patients . She was on IV Benadryl pump at 15 mg/h at home.
-baclofen continued
-sinemet continued
-episodes with vasovagal response when trying to have a BM - start standing miralax and colace BID
Chronic pain syndrome-on high doses of narcotics (chronic opioid use with dependence) including p.o. Dilaudid and Suboxone at home. Again unclear the source of her pain.
GERD
-famotidine continued
-acipHex continued
-simethicone continued
iron def anemia
-ferrous sulfate continued
hxt of tachycardia
-EKG with sinus tachycardia
-propranolol continued
Chronic Nausea / Esophageal Dysmotility/gastroparesis
History GJ tube
�- Continue diet as tolerated.
�- Continue G-tube to gravity for chronic nausea.
�- Meds via J-tube.
-Zofran every 8 hours as needed
-Continue Pepcid
-emend continued
- PEG tube site without any signs of cellulitis. CT of the abdomen pelvis shows no subcutaneous collection around the PEG tube and it is in place.
Acute fractures of the left 6 anterolateral 6th and 7th ribs
-Suspect from recent fall on 10/03
-10/25 complains of pain on the posterolateral lower ribs
-Continue lidocaine patch, add heating packs
Steroid-Induced DM-II--
She remains on steady dose of prednisone
Blood glucose remains marginal
Monitor oral intake
Reduce Lantus and NovoLog AC
Continue serial Accu-Cheks with basal bolus protocol.
S/p fall overnight 10/03-10/04
imaging negative for bleed or fracture
Steroid-Induced Osteoporosis
Chronic Pain Syndrome secondary to the above on chronic opiates
�- Continue buprenorphine 2 mg 4 times daily , Dilaudid 8 mg as needed
�- PT / OT evaluations.
�- Follow-up with usual cycle specialist after discharge.
allergy induced asthma
chronic hypoxic respiratory failure--on O2
-albuterol continued
-budesonide continued
-cetirizine continued
-cromolyn continued
Thrush
Completed course of clotrimazole Troches for thrush
Migraine Hx
ODT Nurtec as needed
Restless leg syndrome
-Continue baclofen
History of DVT/PE
#Takes subcu Lovenox 100 mg twice daily
DNR on admission
Disposition: Discussion with primary gem setter Dr. Ethan Villanueva on 10/09. Discussed possibility of attempting weaning Benadryl drip likely could be done as outpatient. With current family social situation, unfortunately there is no options
for disposition other than home on IV infusion. Possibility of a transfer to [facility] discussed as well, although according to Dr. Villanueva hospital administration declined services due to complexity. Also discussed possibility of
transfer to tertiary center ([facility] declined in the past).
10/[address] Villanueva over the phone as well as [facility] transfer center.
Complex patient. Attempt to wean off Benadryl drip over the last 2 weeks with persistent dystonic episodes
While patient is relatively stable with her current condition, given complex clinical picture requiring multi disciplinary approach not limited to medicine, hematology, allergology, as well as neuropsychiatric assessment, patient would be better
served at a tertiary facility. Patient was accepted to [facility] for transfer, but hospital administration denied her transfer due to complexity (discussed with patient who is aware)
Anticipated Discharge: > 48 hours
Subjective/Interval History
-
Date of Service: December 09, 2023
Objective Data
-
Labs:
Laboratory Results
12/09/23 12/09/23
12:59 14:17
WBC 8.1
Hgb 11.7 L
Hct 34.5 L
Plt Count 239
Sodium Cancelled Pending
Potassium Cancelled Pending
Chloride Cancelled Pending
Carbon Dioxide Cancelled Pending
BUN Cancelled Pending
Creatinine Cancelled Pending
Glucose Cancelled Pending
Calcium Cancelled Pending
Vital Signs:
Vital Signs
Temp Pulse Resp BP Pulse Ox
97.9 F 121 17 119/79 97
12/09/23 11:31 12/09/23 12:00 12/09/23 12:00 12/09/23 08:00 12/09/23 12:00
I&O
12/08/23 12/09/23 12/10/23
06:59 06:59 06:59
Intake Total 1817 / 1817 962.5 / 962.5
Output Total 2700 / 2700 1200 / 1200 700 / 700
Balance -883 / -883 -237.5 / -237.5 -700 / -700
Physical Exam
-
General: Well Developed and No Apparent Distress
HEENT: Normocephalic, Atraumatic and Moist Mucous Membranes
Respiratory: Clear to Auscultation
Cardiac: Regular Rhythm and S1/S2; Negative Murmur, Rub or Gallop
GI: Soft, Nontender, Nondistended and Normal Bowel Sounds; Negative Organomegaly
Rectal: Deferred by Provider
Musculoskeletal: No Clubbing, No Cyanosis and No Edema
Skin: Negative Rash
Neuro: Nonfocal/Grossly Intact
[2023-12-09] MEDS: SINEMET 25-100 2 TABLET TUBE ×2 (14:46→17:48)
[2023-12-09 14:51] LABS: Blood Urea Nitrogen 6 mg/dl (7-17); Calcium 9.4 mg/dl (8.4-10.2); Carbon Dioxide 26 mmol/L (22-30); Chloride 104 mmol/L (98-107); Estimated Creatinine Clearance > 125 ml/min; Glucose 122 mg/dl (70-99); Potassium 4.3 mmol/L (3.5-5.1); Sodium 138 mmol/L (135-145); eGFR > 60.00
[2023-12-09] MEDS: NON-FORMULARY ITEM 200 MG PO (14:52)
[2023-12-09] MEDS: ZYRTEC 10 MG TUBE ×2 (16:27→21:31)
[2023-12-09] MEDS: BENADRYL 250 MG IV (16:32)
[2023-12-09 17:48] LABS: Glucose - Point of Care 124 mg/dl (70-99)
[2023-12-09] MEDS: FEOSOL 325 MG PO (21:31)
[2023-12-09 22:20] LABS: Glucose - Point of Care 149 mg/dl (70-99)
[2023-12-10] VITALS: BP 105/61
[2023-12-10] MEDS: ATIVAN 1 MG SL ×6 (00:22→21:09)
[2023-12-10] MEDS: BENADRYL SOLUTION 25 MG TUBE ×6 (02:16→21:10)
--- NOTE | 2023-12-10 02:54 | PTCARENOTE ---
Addendum entered by Norma Page RN 12/10/23 06:36:
Pt waking to sudden episode, prns given. Episode last about 30 minutes. Pt appears back to known baseline, vitals stable at this time.
Original Note:
Pt requesting prn Benadryl and Zofran for oncoming episode. Assessment care and vitals as charted.
[2023-12-10 04:00] VITALS: BP 91/63
[2023-12-10] MEDS: ZOFRAN 4 MG IV ×3 (05:12→21:25)
[2023-12-10] MEDS: LIORESAL 10 MG TUBE ×3 (05:14→21:08)
[2023-12-10] MEDS: SINEMET 25-100 1.5 TABLET TUBE ×2 (05:14→10:11)
[2023-12-10] MEDS: BENADRYL 50.5 MG IV ×3 (05:15→18:37)
[2023-12-10] MEDS: PULMICORT 0.5 MG INH ×2 (07:50→20:04)
[2023-12-10 08:00] VITALS: BP 119/79
[2023-12-10 09:07] LABS: Glucose - Point of Care 84 mg/dl (70-99)
[2023-12-10] MEDS: LIDOCAINE 4% PATCH 1 PATCH TOPICAL (10:07)
[2023-12-10] MEDS: LANTUS 0.1 UNITS SC (10:07)
[2023-12-10] MEDS: PEPCID 40 MG IV ×2 (10:07→21:13)
[2023-12-10] MEDS: GASTROCROM 300 MG PO ×3 (10:08→21:10)
[2023-12-10] MEDS: NSS (PRESERVATIVE FREE) 6 ML IV ×2 (10:08→21:10)
[2023-12-10] MEDS: DESENEX/MITRAZOL/ZEASORB 1 APPLIC TOPICAL ×2 (10:09→21:13)
[2023-12-10] MEDS: CLARITIN 10 MG TUBE (10:10)
[2023-12-10] MEDS: VITAMIN B1 100 MG TUBE (10:10)
[2023-12-10] MEDS: HYDREA 500 MG PO ×2 (10:10→21:08)
[2023-12-10] MEDS: LOVENOX 100 MG SC ×2 (10:10→21:10)
[2023-12-10] MEDS: INDERAL 10 MG TUBE ×3 (10:11→21:07)
[2023-12-10] MEDS: SUBUTEX 2 MG SL ×4 (10:12→21:08)
[2023-12-10] MEDS: NON-FORMULARY ITEM NASAL (10:12)
[2023-12-10] MEDS: ZADITOR 1 DROP BOTH EYES ×2 (10:12→21:13)
[2023-12-10] MEDS: DELTASONE 10 MG TUBE ×2 (10:12→21:09)
[2023-12-10] MEDS: COLACE 100 MG PO (10:12)
[2023-12-10] MEDS: NOVOLOG FLEXPEN-LOW RESISTANCE SC ×3 (10:13→16:15)
[2023-12-10] MEDS: MIRALAX TUBE (10:13)
[2023-12-10] MEDS: NON-FORMULARY ITEM PO (10:13)
[2023-12-10] MEDS: NON-FORMULARY ITEM 1 UNIT PO ×2 (10:14→21:12)
[2023-12-10] MEDS: NON-FORMULARY ITEM 1 MG PO ×2 (10:14→21:11)
[2023-12-10] MEDS: NOVOLOG FLEXPEN SC ×2 (10:44→13:05)
[2023-12-10 12:00] VITALS: BP 98/72
[2023-12-10 12:33] LABS: Glucose - Point of Care 106 mg/dl (70-99)
[2023-12-10] MEDS: BENADRYL 250 MG IV (12:47)
[2023-12-10] MEDS: SINEMET 25-100 2 TABLET TUBE ×2 (13:01→17:25)
[2023-12-10] MEDS: GASTROCROM PO (14:04)
--- NOTE | 2023-12-10 14:33 | PTCARENOTE ---
Pt with dystonic episode. Medicated with PRN Benadryl infusion and standing Benadryl via tube, as well as standing SL Ativan and Subutex. Ice packs applied for comfort. Pt resting at this time.
[2023-12-10] MEDS: NON-FORMULARY ITEM 200 MG PO (15:14)
--- NOTE | 2023-12-10 15:39 | W.PN.HOSP.TC ---
Today's Communication/Plan
-
Continue Benadryl drip taper.
Assessment / Plan
Assessment / Plan
Impression:
Gram-negative bacteremia due to chronic infected PICC line.
Fever on admission with no evidence of sepsis (tachycardia likely fever mediated)
Conditions prior to admission:
1. Mast cell activation syndrome.
2. Chronic dystonic reaction.
3. Orthostatic hypotension with postural orthostatic and
tachycardia syndrome.
4. Dopa sensitive dystonia.
5. Steroid-induced diabetes.
6. Prior history of deep venous thrombosis and pulmonary embolism.
7. Chronic pain syndrome.
8. Migraine headaches.
9. Gastroesophageal reflux disease.
10. Benzodiazepine and opiate dependence.
11. Restless legs syndrome.
12. Insomnia.
13. History of vocal cord dysfunction.
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
15. Gastroparesis.
16. 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
17. 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
Plan:
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
PICC line removed and PICC line replaced on 09/23
Repeated blood cultures negative on 09/20 but no other cultures obtained
Finished cipro on 10/06/23 (was on 750mg BID)
GJ tube in place
Replaced by interventional radiology on 09/22
Replaced by interventional radiology 11/04 due to concern leakage
HX Recurrent Anaphylaxis / Mast Cell Flare Episodes on chronic steroids
Mast Cell Activation Syndrome
DOPA-Responsive Dystonia
-follows with Dr. Lizabeth Villanueva at [facility] hematology.
- Continue Ativan
�-cont Gleevac ,steroids
�--Levalbuterol as needed, to do her eyedrops
-Continue carbidopa levodopa
-prednisone continued
-Outpatient IV Benadryl drip at 15 milligram an hour upon presentation. As discussed with primary marinator Dr. Mora plan is to slowly taper. Decreased Benadryl drip down to 8 mg an hour on 11/30
Multiple conversations with patient almost on a daily basis in regards to goals of care including attempt to wean off Benadryl drip with possibly substitution to oral regimen to facilitate discharge as well as outpatient management. Patient has
been resistant to wean off Benadryl drip completely at this point.
11/26. Multidisciplinary meeting including psychiatry, clinical pharmacy, medicine, nursing.
Patient clinical course along with medication regimen has been reviewed.
With the goal of minimize exposure to IV medications and optimize regimen following changes implemented:
-Daily IV fluids discontinued with plan to monitor oral intake and orthostatics.
� IV Benadryl pushes have been discontinued.
� Lorazepam sublingual as needed order has been discontinued.
IV lorazepam has been discontinued
Initiated:
Benadryl 25 mg infusion through piggyback will be provided over 10 minutes for breakthrough dystonic attack.
Benadryl p.o. 25 mg will be scheduled every 4 hours.
Lorazepam sublingual 1 mg with the scheduled while awake every 4 hours.
Hydromorphone p.o. 8 mg will be continued every 6 hours as needed for severe pain along with Suboxone.
12/02.
Multidisciplinary discussion involving nursing, primary service, psychiatry, pharmacy, case management
Plan is to continue current care including intravenous Benadryl drip wean. Schedule below:
Diphenhydramine continuous infusion taper schedule Q72hr
12/03 @12/06 @1259 � 7MG/HR
12/06 @12/09 @1259 � 6MG/HR
12/09 @12/12 @1259 � 5MG/HR
12/12 @12/15 @1259 � 4MG/HR
12/15 @1299 � 8 @1259 � 3MG/HR
12/18 @1299 � 8 @1259 � 2MG/HR
12/21 @1300 � 88 @1259 � 1MG/HR
12/24 @1300 � Stop infusion
Can consider increasing diphenhydramine PO up to max 300mg/day IF NEEDED. I would recommend increasing if episodes increase.
dystonia/movement disorder-patient apparently has dystonic features with her mast cell activation syndrome. I could not find in literature as a routine clinical presentation but according to patient apparently this is very unusual feature which was
noted in few other patients . She was on IV Benadryl pump at 15 mg/h at home.
-baclofen continued
-sinemet continued
-episodes with vasovagal response when trying to have a BM - start standing miralax and colace BID
Chronic pain syndrome-on high doses of narcotics (chronic opioid use with dependence) including p.o. Dilaudid and Suboxone at home. Again unclear the source of her pain.
GERD
-famotidine continued
-acipHex continued
-simethicone continued
iron def anemia
-ferrous sulfate continued
hxt of tachycardia
-EKG with sinus tachycardia
-propranolol continued
Chronic Nausea / Esophageal Dysmotility/gastroparesis
History GJ tube
�- Continue diet as tolerated.
�- Continue G-tube to gravity for chronic nausea.
�- Meds via J-tube.
-Zofran every 8 hours as needed
-Continue Pepcid
-emend continued
- PEG tube site without any signs of cellulitis. CT of the abdomen pelvis shows no subcutaneous collection around the PEG tube and it is in place.
Acute fractures of the left 6 anterolateral 6th and 7th ribs
-Suspect from recent fall on 10/03
-10/25 complains of pain on the posterolateral lower ribs
-Continue lidocaine patch, add heating packs
Steroid-Induced DM-II--
She remains on steady dose of prednisone
Blood glucose remains marginal
Monitor oral intake
Reduce Lantus and NovoLog AC
Continue serial Accu-Cheks with basal bolus protocol.
S/p fall overnight 10/03-10/04
imaging negative for bleed or fracture
Steroid-Induced Osteoporosis
Chronic Pain Syndrome secondary to the above on chronic opiates
�- Continue buprenorphine 2 mg 4 times daily , Dilaudid 8 mg as needed
�- PT / OT evaluations.
�- Follow-up with usual lubricating specialist after discharge.
allergy induced asthma
chronic hypoxic respiratory failure--on O2
-albuterol continued
-budesonide continued
-cetirizine continued
-cromolyn continued
Thrush
Completed course of clotrimazole Troches for thrush
Migraine Hx
ODT Nurtec as needed
Restless leg syndrome
-Continue baclofen
History of DVT/PE
#Takes subcu Lovenox 100 mg twice daily
DNR on admission
Disposition: Discussion with primary marinator Dr. Ethan Villanueva on 10/09. Discussed possibility of attempting weaning Benadryl drip likely could be done as outpatient. With current family social situation, unfortunately there is no options
for disposition other than home on IV infusion. Possibility of a transfer to [facility] discussed as well, although according to Dr. Villanueva hospital administration declined services due to complexity. Also discussed possibility of
transfer to tertiary center ([facility] declined in the past).
10/[address] Villanueva over the phone as well as [facility] transfer center.
Complex patient. Attempt to wean off Benadryl drip over the last 2 weeks with persistent dystonic episodes
While patient is relatively stable with her current condition, given complex clinical picture requiring multi disciplinary approach not limited to medicine, hematology, allergology, as well as neuropsychiatric assessment, patient would be better
served at a tertiary facility. Patient was accepted to [facility] for transfer, but hospital administration denied her transfer due to complexity (discussed with patient who is aware)
Anticipated Discharge: > 48 hours
Subjective/Interval History
-
Date of Service: December 10, 2023
Objective Data
-
Vital Signs:
Vital Signs
Temp Pulse Resp BP Pulse Ox
98.3 F 88 15 98/72 95
12/10/23 11:37 12/10/23 14:00 12/10/23 14:00 12/10/23 12:00 12/10/23 14:00
I&O
12/09/23 12/10/23 12/11/23
06:59 06:59 06:59
Intake Total 962.5 / 962.5 240 / 240
Output Total 1200 / 1200 2450 / 2450
Balance -237.5 / -237.5 -2210 / -2210
Physical Exam
-
General: Well Developed and No Apparent Distress
HEENT: Normocephalic, Atraumatic and Moist Mucous Membranes
Respiratory: Clear to Auscultation
Cardiac: Regular Rhythm and S1/S2; Negative Murmur, Rub or Gallop
GI: Soft, Nontender, Nondistended and Normal Bowel Sounds; Negative Organomegaly
Rectal: Deferred by Provider
Musculoskeletal: No Clubbing, No Cyanosis and No Edema
Skin: Negative Rash
Neuro: Nonfocal/Grossly Intact
[2023-12-10 16:00] VITALS: BP 121/82
[2023-12-10] MEDS: NOVOLOG FLEXPEN 3 UNITS SC (16:15)
[2023-12-10 16:21] LABS: Glucose - Point of Care 112 mg/dl (70-99)
[2023-12-10] MEDS: TYLENOL 650 MG PO (17:24)
[2023-12-10] MEDS: ZYRTEC 10 MG TUBE ×2 (17:25→21:08)
[2023-12-10 20:00] VITALS: BP 108/73
[2023-12-10] MEDS: DUONEB 3 ML INH (20:04)
[2023-12-10] MEDS: FEOSOL 325 MG PO (21:08)
[2023-12-10] MEDS: COLACE PO (21:09)
[2023-12-10 21:39] LABS: Glucose - Point of Care 126 mg/dl (70-99)
--- NOTE | 2023-12-10 22:40 | PTCARENOTE ---
Received pt at change of shift receiving PRN Benadryl for a dystonic attack. Pt states she is feeling much better. Sleeping but easily arousable. All night meds given except pt refused to take Colace. PW changed and evening hygiene provided. Pt
offering no complaints at this time. Resting in bed with call sanchez in reach.
[2023-12-11] VITALS: BP 96/58
[2023-12-11] MEDS: ATIVAN 1 MG SL ×6 (01:10→21:13)
[2023-12-11] MEDS: BENADRYL SOLUTION 25 MG TUBE ×6 (01:10→21:11)
[2023-12-11 04:00] VITALS: BP 103/63
[2023-12-11] MEDS: SINEMET 25-100 1.5 TABLET TUBE ×2 (05:26→08:55)
[2023-12-11] MEDS: LIORESAL 10 MG TUBE ×3 (05:26→21:13)
[2023-12-11] MEDS: BENADRYL 50.5 MG IV ×2 (05:38→12:07)
[2023-12-11 06:49] VITALS: BMI 33.4
[2023-12-11] MEDS: PULMICORT 0.5 MG INH ×2 (06:59→19:36)
[2023-12-11 07:57] LABS: Glucose - Point of Care 115 mg/dl (70-99)
[2023-12-11 08:00] VITALS: BP 112/75
[2023-12-11] MEDS: NOVOLOG FLEXPEN-LOW RESISTANCE SC ×3 (08:38→17:58)
[2023-12-11] MEDS: GASTROCROM 300 MG PO ×4 (08:54→21:26)
[2023-12-11] MEDS: VITAMIN B1 100 MG TUBE (08:55)
[2023-12-11] MEDS: INDERAL 10 MG TUBE ×3 (08:55→21:12)
[2023-12-11] MEDS: DELTASONE 10 MG TUBE ×2 (08:56→21:13)
[2023-12-11] MEDS: LIDOCAINE 4% PATCH 1 PATCH TOPICAL (08:56)
[2023-12-11] MEDS: CLARITIN 10 MG TUBE (08:56)
[2023-12-11] MEDS: SUBUTEX 2 MG SL ×4 (08:57→21:13)
[2023-12-11] MEDS: LOVENOX 100 MG SC (08:57)
[2023-12-11] MEDS: HYDREA 500 MG PO ×2 (08:57→21:15)
[2023-12-11] MEDS: PEPCID 40 MG IV ×2 (08:58→21:15)
[2023-12-11] MEDS: NSS (PRESERVATIVE FREE) 6 ML IV ×2 (08:58→21:14)
[2023-12-11] MEDS: MIRALAX TUBE (08:59)
[2023-12-11] MEDS: DESENEX/MITRAZOL/ZEASORB 1 APPLIC TOPICAL ×2 (08:59→21:14)
[2023-12-11] MEDS: COLACE PO ×2 (09:00→21:14)
[2023-12-11] MEDS: NON-FORMULARY ITEM NASAL (09:01)
[2023-12-11] MEDS: ZADITOR 1 DROP BOTH EYES ×2 (09:02→21:14)
[2023-12-11] MEDS: LANTUS 0.1 UNITS SC (09:06)
[2023-12-11] MEDS: NON-FORMULARY ITEM 1 MG PO ×2 (09:07→21:16)
[2023-12-11] MEDS: NON-FORMULARY ITEM PO (09:08)
[2023-12-11] MEDS: NON-FORMULARY ITEM 1 UNIT PO ×2 (09:09→21:15)
[2023-12-11] MEDS: NOVOLOG FLEXPEN SC (09:10)
[2023-12-11] MEDS: ZOFRAN 4 MG IV ×2 (09:14→15:57)
--- NOTE | 2023-12-11 10:19 | PTCARENOTE ---
Assumed care of pt from car shifter, pt AAOx3, sleeping off and on through morning, reports feeling nauseous - prn Zofran administered as ordered. Pt reports intestinal cramping, had soft BM on bedpan. Medications administered as ordered. Pt wants
to sleep more and did not want breakfast, straight ordered Novolog held. Will continue to monitor through shift.
[2023-12-11 12:00] VITALS: BP 120/90
[2023-12-11 12:07] LABS: Glucose - Point of Care 116 mg/dl (70-99)
--- NOTE | 2023-12-11 12:13 | PTCARENOTE ---
Pt having dystonic episode, prn Benadryl infusing as ordered. Scheduled Ativan and Subutex administered as ordered. Ice pack provided per pt request. Will continue to monitor and offer emotional support through shift.
[2023-12-11] MEDS: BENADRYL 100 MG IV (12:51)
[2023-12-11] MEDS: SINEMET 25-100 2 TABLET TUBE ×2 (13:59→17:39)
[2023-12-11] MEDS: NON-FORMULARY ITEM 200 MG PO (13:59)
[2023-12-11] MEDS: NOVOLOG FLEXPEN 3 UNITS SC ×2 (13:59→19:35)
[2023-12-11] MEDS: TYLENOL 650 MG PO (15:56)
[2023-12-11 16:00] VITALS: BP 116/68
--- NOTE | 2023-12-11 16:37 | W.PN.HOSP.TC ---
Today's Communication/Plan
-
Has been on Benadryl taper currently down to 5 mg a day.
Dystonic episodes 1 to twice in 24 hours while being on taper.
Discussed with nursing.
Assessment / Plan
Assessment / Plan
Impression:
Gram-negative bacteremia due to chronic infected PICC line.
Fever on admission with no evidence of sepsis (tachycardia likely fever mediated)
Conditions prior to admission:
1. Mast cell activation syndrome.
2. Chronic dystonic reaction.
3. Orthostatic hypotension with postural orthostatic and
tachycardia syndrome.
4. Dopa sensitive dystonia.
5. Steroid-induced diabetes.
6. Prior history of deep venous thrombosis and pulmonary embolism.
7. Chronic pain syndrome.
8. Migraine headaches.
9. Gastroesophageal reflux disease.
10. Benzodiazepine and opiate dependence.
11. Restless legs syndrome.
12. Insomnia.
13. History of vocal cord dysfunction.
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
15. Gastroparesis.
16. 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
17. 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
Plan:
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
PICC line removed and PICC line replaced on 09/23
Repeated blood cultures negative on 09/20 but no other cultures obtained
Finished cipro on 10/06/23 (was on 750mg BID)
GJ tube in place
Replaced by interventional radiology on 09/22
Replaced by interventional radiology 11/04 due to concern leakage
HX Recurrent Anaphylaxis / Mast Cell Flare Episodes on chronic steroids
Mast Cell Activation Syndrome
DOPA-Responsive Dystonia
-follows with Dr. Lizabeth Villanueva at [facility] hematology.
- Continue Ativan
�-cont Gleevac ,steroids
�--Levalbuterol as needed, to do her eyedrops
-Continue carbidopa levodopa
-prednisone continued
-Outpatient IV Benadryl drip at 15 milligram an hour upon presentation. As discussed with primary dialysis social worker Dr. Mora plan is to slowly taper. Decreased Benadryl drip down to 8 mg an hour on 11/30
Multiple conversations with patient almost on a daily basis in regards to goals of care including attempt to wean off Benadryl drip with possibly substitution to oral regimen to facilitate discharge as well as outpatient management. Patient has
been resistant to wean off Benadryl drip completely at this point.
11/26. Multidisciplinary meeting including psychiatry, clinical pharmacy, medicine, nursing.
Patient clinical course along with medication regimen has been reviewed.
With the goal of minimize exposure to IV medications and optimize regimen following changes implemented:
-Daily IV fluids discontinued with plan to monitor oral intake and orthostatics.
� IV Benadryl pushes have been discontinued.
� Lorazepam sublingual as needed order has been discontinued.
IV lorazepam has been discontinued
Initiated:
Benadryl 25 mg infusion through piggyback will be provided over 10 minutes for breakthrough dystonic attack.
Benadryl p.o. 25 mg will be scheduled every 4 hours.
Lorazepam sublingual 1 mg with the scheduled while awake every 4 hours.
Hydromorphone p.o. 8 mg will be continued every 6 hours as needed for severe pain along with Suboxone.
12/02.
Multidisciplinary discussion involving nursing, primary service, psychiatry, pharmacy, case management
Plan is to continue current care including intravenous Benadryl drip wean. Schedule below:
Diphenhydramine continuous infusion taper schedule Q72hr
12/03 @12/06 @1259 � 7MG/HR
12/06 @12/09 @1259 � 6MG/HR
12/09 @12/12 @1259 � 5MG/HR
12/12 @12/15 @1259 � 4MG/HR
12/15 @1299 � 12/18 @1259 � 3MG/HR
12/18 @1300 � 8 @1259 � 2MG/HR
12/21 @1300 � 12/24 @1259 � 1MG/HR
12/24 @1300 � Stop infusion
Can consider increasing diphenhydramine PO up to max 300mg/day IF NEEDED. I would recommend increasing if episodes increase.
dystonia/movement disorder-patient apparently has dystonic features with her mast cell activation syndrome. I could not find in literature as a routine clinical presentation but according to patient apparently this is very unusual feature which was
noted in few other patients . She was on IV Benadryl pump at 15 mg/h at home.
-baclofen continued
-sinemet continued
-episodes with vasovagal response when trying to have a BM - start standing miralax and colace BID
Chronic pain syndrome-on high doses of narcotics (chronic opioid use with dependence) including p.o. Dilaudid and Suboxone at home. Again unclear the source of her pain.
GERD
-famotidine continued
-acipHex continued
-simethicone continued
iron def anemia
-ferrous sulfate continued
hxt of tachycardia
-EKG with sinus tachycardia
-propranolol continued
Chronic Nausea / Esophageal Dysmotility/gastroparesis
History GJ tube
�- Continue diet as tolerated.
�- Continue G-tube to gravity for chronic nausea.
�- Meds via J-tube.
-Zofran every 8 hours as needed
-Continue Pepcid
-emend continued
- PEG tube site without any signs of cellulitis. CT of the abdomen pelvis shows no subcutaneous collection around the PEG tube and it is in place.
Acute fractures of the left 6 anterolateral 6th and 7th ribs
-Suspect from recent fall on 10/03
-10/25 complains of pain on the posterolateral lower ribs
-Continue lidocaine patch, add heating packs
Steroid-Induced DM-II--
She remains on steady dose of prednisone
Blood glucose remains marginal
Monitor oral intake
Reduce Lantus and NovoLog AC
Continue serial Accu-Cheks with basal bolus protocol.
S/p fall overnight 10/03-10/04
imaging negative for bleed or fracture
Steroid-Induced Osteoporosis
Chronic Pain Syndrome secondary to the above on chronic opiates
�- Continue buprenorphine 2 mg 4 times daily , Dilaudid 8 mg as needed
�- PT / OT evaluations.
�- Follow-up with usual manpower development specialist manager after discharge.
allergy induced asthma
chronic hypoxic respiratory failure--on O2
-albuterol continued
-budesonide continued
-cetirizine continued
-cromolyn continued
Thrush
Completed course of clotrimazole Troches for thrush
Migraine Hx
ODT Nurtec as needed
Restless leg syndrome
-Continue baclofen
History of DVT/PE
#Takes subcu Lovenox 100 mg twice daily
DNR on admission
Disposition: Discussion with primary dialysis social worker Dr. Ethan Villanueva on 10/09. Discussed possibility of attempting weaning Benadryl drip likely could be done as outpatient. With current family social situation, unfortunately there is no options
for disposition other than home on IV infusion. Possibility of a transfer to [facility] discussed as well, although according to Dr. Villanueva hospital administration declined services due to complexity. Also discussed possibility of
transfer to tertiary center ([facility] declined in the past).
10/[address] Villanueva over the phone as well as [facility] transfer center.
Complex patient. Attempt to wean off Benadryl drip over the last 2 weeks with persistent dystonic episodes
While patient is relatively stable with her current condition, given complex clinical picture requiring multi disciplinary approach not limited to medicine, hematology, allergology, as well as neuropsychiatric assessment, patient would be better
served at a tertiary facility. Patient was accepted to [facility] for transfer, but hospital administration denied her transfer due to complexity (discussed with patient who is aware)
Anticipated Discharge: > 48 hours
Subjective/Interval History
-
Date of Service: December 11, 2023
Objective Data
-
Vital Signs:
Vital Signs
Temp Pulse Resp BP Pulse Ox
97.7 F 94 13 120/90 98
12/11/23 16:01 12/11/23 15:57 12/11/23 10:00 12/11/23 15:57 12/11/23 10:00
I&O
12/10/23 12/11/23 12/12/23
06:59 06:59 06:59
Intake Total 240 / 240 50 / 50
Output Total 2450 / 2450 2099 / 2099
Balance -2209 / -2209 -2049 /
Physical Exam
-
General: Well Developed and No Apparent Distress
HEENT: Normocephalic, Atraumatic and Moist Mucous Membranes
Respiratory: Clear to Auscultation
Cardiac: Regular Rhythm and S1/S2; Negative Murmur, Rub or Gallop
GI: Soft, Nontender, Nondistended and Normal Bowel Sounds; Negative Organomegaly
Rectal: Deferred by Provider
Musculoskeletal: No Clubbing, No Cyanosis and No Edema
Skin: Negative Rash
Neuro: Nonfocal/Grossly Intact
--- NOTE | 2023-12-11 16:56 | CM ---
Patient with Hx Mast Cell Activation Syndrome, dystonia/movement disorder, chronic pain syndrome, gastroparesis with Dx Gram-negative bacteremia due to chronic infected PICC line. O2 2L. IV Benadryl gtt taper - currently 5mg/hr. PT & OT 12/08
recommend HH.
Phone call to Roslyn Ferreira [employer] Leni Hahn [facility] [employer] ([place] [phone]); left message requesting callback with update as to whether the RN Agency arrangements are completed.
Plan follow up with Lein Hahn [employer] re; home RN agency arrangements.
--- NOTE | 2023-12-11 17:02 | CM ---
Patient with Hx Mast Cell Activation Syndrome, dystonia/movement disorder, chronic pain syndrome, gastroparesis with Dx Gram-negative bacteremia due to chronic infected PICC line. O2 2L. IV Benadryl gtt taper. PT & OT 12/08 recommend HH.
Phone call to Roslyn Ferreira [employer] Leni [facility] [employer] ([place] [phone]); left message requesting callback with update as to whether the RN Agency arrangements are completed.
Plan follow up with Leni Hahn [employer] re; home RN agency arrangements.
[2023-12-11] MEDS: ZYRTEC 10 MG TUBE ×2 (17:39→21:11)
[2023-12-11 18:08] LABS: Glucose - Point of Care 112 mg/dl (70-99)
[2023-12-11 20:00] VITALS: BP 117/80
[2023-12-11] MEDS: FEOSOL 325 MG PO (21:12)
[2023-12-11] MEDS: LOVENOX 90 MG SC (21:14)
--- NOTE | 2023-12-11 21:49 | PTCARENOTE ---
Received pt at change of shift. Pt tearful while on the phone with father trying to get an update with insurance. Pt states feeling hopeful to get out of hospital soon. Benadryl gtt running at 5mg/hr. All evening meds administered. G/J tube in
place; J tube clamed, G tube to gravity. NSR on monitor. 97% on RA with lungs CTA but diminished. Hygiene care provided. Resting in bed with call sanchez in reach.
[2023-12-11 22:32] LABS: Glucose - Point of Care 114 mg/dl (70-99)
[2023-12-12] VITALS (9 sets, daily range): BP systolic 97–119; BP diastolic 67–82; PULSE 95–96; O2SAT 93
[2023-12-12] MEDS: BENADRYL 50.5 MG IV ×3 (00:23→19:27)
[2023-12-12] MEDS: ATIVAN 1 MG SL ×6 (00:23→19:29)
[2023-12-12] MEDS: BENADRYL SOLUTION 25 MG TUBE ×6 (02:26→21:56)
[2023-12-12] MEDS: SINEMET 25-100 1.5 TABLET TUBE ×2 (05:37→10:53)
[2023-12-12] MEDS: LIORESAL 10 MG TUBE ×3 (05:37→21:56)
[2023-12-12] MEDS: BENADRYL 100 MG IV (07:49)
[2023-12-12] MEDS: NOVOLOG FLEXPEN-LOW RESISTANCE SC ×3 (07:49→17:10)
[2023-12-12] MEDS: HYDREA 500 MG PO ×2 (07:50→20:23)
[2023-12-12] MEDS: COLACE PO ×2 (07:51→20:26)
[2023-12-12] MEDS: LOVENOX 90 MG SC ×2 (07:51→20:24)
[2023-12-12] MEDS: PEPCID 40 MG IV ×2 (07:52→20:23)
[2023-12-12] MEDS: DELTASONE 10 MG TUBE ×2 (07:52→20:23)
[2023-12-12] MEDS: VITAMIN B1 100 MG TUBE (07:52)
[2023-12-12] MEDS: GASTROCROM 300 MG PO ×4 (07:52→21:56)
[2023-12-12] MEDS: SUBUTEX 2 MG SL ×4 (07:53→21:56)
[2023-12-12] MEDS: CLARITIN 10 MG TUBE (07:53)
[2023-12-12] MEDS: LIDOCAINE 4% PATCH 1 PATCH TOPICAL (07:53)
[2023-12-12] MEDS: ZADITOR 1 DROP BOTH EYES ×2 (07:54→20:24)
[2023-12-12] MEDS: NSS (PRESERVATIVE FREE) 6 ML IV ×2 (07:54→20:23)
[2023-12-12] MEDS: MIRALAX TUBE (07:55)
[2023-12-12] MEDS: NON-FORMULARY ITEM PO (07:56)
[2023-12-12] MEDS: NON-FORMULARY ITEM 1 UNIT PO ×2 (07:57→20:25)
[2023-12-12] MEDS: NON-FORMULARY ITEM 1 MG PO ×2 (07:57→20:25)
[2023-12-12 07:58] LABS: Glucose - Point of Care 95 mg/dl (70-99)
[2023-12-12] MEDS: NON-FORMULARY ITEM NASAL (07:58)
[2023-12-12] MEDS: DESENEX/MITRAZOL/ZEASORB 1 APPLIC TOPICAL ×2 (08:02→20:25)
[2023-12-12] MEDS: PULMICORT 0.5 MG INH ×2 (08:06→20:02)
[2023-12-12] MEDS: DUONEB 3 ML INH ×2 (08:06→20:03)
[2023-12-12] MEDS: INDERAL 10 MG TUBE ×3 (08:10→21:56)
[2023-12-12] MEDS: ZOFRAN 4 MG IV (08:10)
[2023-12-12] MEDS: LANTUS 0.1 UNITS SC (08:21)
[2023-12-12] MEDS: NOVOLOG FLEXPEN SC (08:24)
[2023-12-12 12:12] LABS: Glucose - Point of Care 120 mg/dl (70-99)
[2023-12-12] MEDS: NOVOLOG FLEXPEN 3 UNITS SC ×2 (12:40→17:09)
[2023-12-12] MEDS: SINEMET 25-100 2 TABLET TUBE ×2 (13:58→17:08)
[2023-12-12] MEDS: NON-FORMULARY ITEM 200 MG PO (13:59)
--- NOTE | 2023-12-12 14:02 | W.PN.HOSP.TC ---
Today's Communication/Plan
-
Remains on IV Benadryl taper.
Assessment / Plan
Assessment / Plan
Impression:
Gram-negative bacteremia due to chronic infected PICC line.
Fever on admission with no evidence of sepsis (tachycardia likely fever mediated)
Conditions prior to admission:
1. Mast cell activation syndrome.
2. Chronic dystonic reaction.
3. Orthostatic hypotension with postural orthostatic and
tachycardia syndrome.
4. Dopa sensitive dystonia.
5. Steroid-induced diabetes.
6. Prior history of deep venous thrombosis and pulmonary embolism.
7. Chronic pain syndrome.
8. Migraine headaches.
9. Gastroesophageal reflux disease.
10. Benzodiazepine and opiate dependence.
11. Restless legs syndrome.
12. Insomnia.
13. History of vocal cord dysfunction.
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
15. Gastroparesis.
16. 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
17. 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
Plan:
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
PICC line removed and PICC line replaced on 09/23
Repeated blood cultures negative on 09/20 but no other cultures obtained
Finished cipro on 10/06/23 (was on 750mg BID)
GJ tube in place
Replaced by interventional radiology on 09/22
Replaced by interventional radiology 11/04 due to concern leakage
HX Recurrent Anaphylaxis / Mast Cell Flare Episodes on chronic steroids
Mast Cell Activation Syndrome
DOPA-Responsive Dystonia
-follows with Dr. Lizabeth Villanueva at [facility] hematology.
- Continue Ativan
�-cont Gleevac ,steroids
�--Levalbuterol as needed, to do her eyedrops
-Continue carbidopa levodopa
-prednisone continued
-Outpatient IV Benadryl drip at 15 milligram an hour upon presentation. As discussed with primary institutional research coordinator Dr. Mora plan is to slowly taper. Decreased Benadryl drip down to 8 mg an hour on 11/30
Multiple conversations with patient almost on a daily basis in regards to goals of care including attempt to wean off Benadryl drip with possibly substitution to oral regimen to facilitate discharge as well as outpatient management. Patient has
been resistant to wean off Benadryl drip completely at this point.
11/26. Multidisciplinary meeting including psychiatry, clinical pharmacy, medicine, nursing.
Patient clinical course along with medication regimen has been reviewed.
With the goal of minimize exposure to IV medications and optimize regimen following changes implemented:
-Daily IV fluids discontinued with plan to monitor oral intake and orthostatics.
� IV Benadryl pushes have been discontinued.
� Lorazepam sublingual as needed order has been discontinued.
IV lorazepam has been discontinued
Initiated:
Benadryl 25 mg infusion through piggyback will be provided over 10 minutes for breakthrough dystonic attack.
Benadryl p.o. 25 mg will be scheduled every 4 hours.
Lorazepam sublingual 1 mg with the scheduled while awake every 4 hours.
Hydromorphone p.o. 8 mg will be continued every 6 hours as needed for severe pain along with Suboxone.
12/02.
Multidisciplinary discussion involving nursing, primary service, psychiatry, pharmacy, case management
Plan is to continue current care including intravenous Benadryl drip wean. Schedule below:
Diphenhydramine continuous infusion taper schedule Q72hr
12/03 @12/06 @1259 � 7MG/HR
12/06 @12/09 @1259 � 6MG/HR
12/09 @12/12 @1259 � 5MG/HR
12/12 @12/15 @1259 � 4MG/HR
12/15 @1299 � 8 @1259 � 3MG/HR
12/18 @1299 � 8 @1259 � 2MG/HR
12/21 @1300 � 88 @1259 � 1MG/HR
12/24 @1300 � Stop infusion
Can consider increasing diphenhydramine PO up to max 300mg/day IF NEEDED. I would recommend increasing if episodes increase.
dystonia/movement disorder-patient apparently has dystonic features with her mast cell activation syndrome. I could not find in literature as a routine clinical presentation but according to patient apparently this is very unusual feature which was
noted in few other patients . She was on IV Benadryl pump at 15 mg/h at home.
-baclofen continued
-sinemet continued
-episodes with vasovagal response when trying to have a BM - start standing miralax and colace BID
Chronic pain syndrome-on high doses of narcotics (chronic opioid use with dependence) including p.o. Dilaudid and Suboxone at home. Again unclear the source of her pain.
GERD
-famotidine continued
-acipHex continued
-simethicone continued
iron def anemia
-ferrous sulfate continued
hxt of tachycardia
-EKG with sinus tachycardia
-propranolol continued
Chronic Nausea / Esophageal Dysmotility/gastroparesis
History GJ tube
�- Continue diet as tolerated.
�- Continue G-tube to gravity for chronic nausea.
�- Meds via J-tube.
-Zofran every 8 hours as needed
-Continue Pepcid
-emend continued
- PEG tube site without any signs of cellulitis. CT of the abdomen pelvis shows no subcutaneous collection around the PEG tube and it is in place.
Acute fractures of the left 6 anterolateral 6th and 7th ribs
-Suspect from recent fall on 10/03
-10/25 complains of pain on the posterolateral lower ribs
-Continue lidocaine patch, add heating packs
Steroid-Induced DM-II--
She remains on steady dose of prednisone
Blood glucose remains marginal
Monitor oral intake
Reduce Lantus and NovoLog AC
Continue serial Accu-Cheks with basal bolus protocol.
S/p fall overnight 10/03-10/04
imaging negative for bleed or fracture
Steroid-Induced Osteoporosis
Chronic Pain Syndrome secondary to the above on chronic opiates
�- Continue buprenorphine 2 mg 4 times daily , Dilaudid 8 mg as needed
�- PT / OT evaluations.
�- Follow-up with usual computer support specialist instructor after discharge.
allergy induced asthma
chronic hypoxic respiratory failure--on O2
-albuterol continued
-budesonide continued
-cetirizine continued
-cromolyn continued
Thrush
Completed course of clotrimazole Troches for thrush
Migraine Hx
ODT Nurtec as needed
Restless leg syndrome
-Continue baclofen
History of DVT/PE
#Takes subcu Lovenox 100 mg twice daily
DNR on admission
Disposition: Discussion with primary institutional research coordinator Dr. Ethan Villanueva on 10/09. Discussed possibility of attempting weaning Benadryl drip likely could be done as outpatient. With current family social situation, unfortunately there is no options
for disposition other than home on IV infusion. Possibility of a transfer to [facility] discussed as well, although according to Dr. Villanueva hospital administration declined services due to complexity. Also discussed possibility of
transfer to tertiary center ([facility] declined in the past).
10/[address] Villanueva over the phone as well as [facility] transfer center.
Complex patient. Attempt to wean off Benadryl drip over the last 2 weeks with persistent dystonic episodes
While patient is relatively stable with her current condition, given complex clinical picture requiring multi disciplinary approach not limited to medicine, hematology, allergology, as well as neuropsychiatric assessment, patient would be better
served at a tertiary facility. Patient was accepted to [facility] for transfer, but hospital administration denied her transfer due to complexity (discussed with patient who is aware)
Anticipated Discharge: 24 - 48 hours
Subjective/Interval History
-
Date of Service: December 12, 2023
Objective Data
-
Vital Signs:
Vital Signs
Temp Pulse Resp BP Pulse Ox
97.8 F 88 14 117/82 96
12/12/23 11:15 12/12/23 12:00 12/12/23 12:00 12/12/23 12:00 12/12/23 12:00
I&O
12/11/23 12/12/23 12/13/23
06:59 06:59 06:59
Intake Total 50 / 50 750 / 750
Output Total 2099 / 2099 2049 / 2049 900 / 900
Balance -2049 / -2049 -1300 / -1300 -900 / -900
Physical Exam
-
General: Well Developed and No Apparent Distress
HEENT: Normocephalic, Atraumatic and Moist Mucous Membranes
Respiratory: Clear to Auscultation
Cardiac: Regular Rhythm and S1/S2; Negative Murmur, Rub or Gallop
GI: Soft, Nontender, Nondistended and Normal Bowel Sounds; Negative Organomegaly
Rectal: Deferred by Provider
Musculoskeletal: No Clubbing, No Cyanosis and No Edema
Skin: Negative Rash
Neuro: Nonfocal/Grossly Intact
--- NOTE | 2023-12-12 15:21 | CM ---
Patient with Hx Mast Cell Activation Syndrome, dystonia/movement disorder, chronic pain syndrome, gastroparesis with Dx Gram-negative bacteremia due to chronic infected PICC line. O2 2L.
Phone call to [facility] Behavioral Health Director Leni Hahn [facility] [employer] (ph [phone]); left message again requesting callback with update as to whether the RN Agency arrangements/contracts are completed.
Case discussed today with Susanna Farrell. She sent message to [facility] [employer] requesting an update/response.
Plan follow up with Leni Hahn Behavioral Health Director re; home RN agency arrangements.
[2023-12-12] MEDS: ZYRTEC 10 MG TUBE ×2 (16:41→21:57)
[2023-12-12 17:18] LABS: Glucose - Point of Care 110 mg/dl (70-99)
--- NOTE | 2023-12-12 20:53 | PTCARENOTE ---
Received pt from anisa JULIEN. Pt with a dystonia attack, PRN Benadryl given (see MAR). Benadryl gtt @ 5 ml/hr.
[2023-12-12 21:19] LABS: Glucose - Point of Care 129 mg/dl (70-99)
[2023-12-12] MEDS: FEOSOL 325 MG PO (21:56)
[2023-12-13] VITALS: BP 114/70
[2023-12-13] MEDS: BENADRYL SOLUTION 25 MG TUBE ×6 (01:01→22:22)
[2023-12-13] MEDS: ATIVAN 1 MG SL ×6 (01:01→19:47)
[2023-12-13 04:00] VITALS: BP 107/66
[2023-12-13] MEDS: BENADRYL 100 MG IV ×2 (04:56→12:45)
[2023-12-13] MEDS: SINEMET 25-100 1.5 TABLET TUBE ×2 (05:00→09:49)
[2023-12-13] MEDS: LIORESAL 10 MG TUBE ×3 (05:01→21:18)
[2023-12-13] MEDS: GASTROCROM 300 MG PO ×4 (05:01→21:18)
[2023-12-13] MEDS: PULMICORT 0.5 MG INH ×2 (07:21→20:21)
[2023-12-13 08:00] VITALS: BP 116/75
[2023-12-13] MEDS: MIRALAX TUBE (08:40)
[2023-12-13] MEDS: NON-FORMULARY ITEM NASAL (08:41)
[2023-12-13 08:42] LABS: Glucose - Point of Care 115 mg/dl (70-99)
[2023-12-13] MEDS: SUBUTEX 2 MG SL ×4 (08:42→21:17)
[2023-12-13] MEDS: CLARITIN 10 MG TUBE (08:42)
[2023-12-13] MEDS: HYDREA 500 MG PO ×2 (08:42→19:47)
[2023-12-13] MEDS: DELTASONE 10 MG TUBE ×2 (08:42→19:47)
[2023-12-13] MEDS: INDERAL 10 MG TUBE ×3 (08:42→21:17)
[2023-12-13] MEDS: VITAMIN B1 100 MG TUBE (08:42)
[2023-12-13] MEDS: COLACE PO (08:43)
[2023-12-13] MEDS: NSS (PRESERVATIVE FREE) 6 ML IV ×2 (08:43→19:48)
[2023-12-13] MEDS: LOVENOX 90 MG SC ×2 (08:43→19:47)
[2023-12-13] MEDS: PEPCID 40 MG IV ×2 (08:43→19:47)
[2023-12-13] MEDS: NON-FORMULARY ITEM 1 UNIT PO ×2 (08:44→19:49)
[2023-12-13] MEDS: NON-FORMULARY ITEM 1 MG PO ×2 (08:44→19:49)
[2023-12-13] MEDS: DESENEX/MITRAZOL/ZEASORB 1 APPLIC TOPICAL ×2 (08:45→21:17)
[2023-12-13] MEDS: NON-FORMULARY ITEM PO (08:46)
[2023-12-13] MEDS: LIDOCAINE 4% PATCH 1 PATCH TOPICAL (08:46)
[2023-12-13] MEDS: ZADITOR 1 DROP BOTH EYES ×2 (08:47→19:48)
[2023-12-13] MEDS: NOVOLOG FLEXPEN SC (08:47)
[2023-12-13] MEDS: NOVOLOG FLEXPEN-LOW RESISTANCE SC ×3 (09:19→16:38)
[2023-12-13] MEDS: LANTUS 0.1 UNITS SC (09:48)
[2023-12-13] MEDS: BENADRYL 50.5 MG IV ×2 (11:49→17:21)
[2023-12-13] MEDS: ZOFRAN 4 MG IV ×2 (11:56→17:22)
[2023-12-13 12:00] VITALS: BP 114/64
[2023-12-13 12:48] LABS: Glucose - Point of Care 108 mg/dl (70-99)
[2023-12-13] MEDS: NOVOLOG FLEXPEN 3 UNITS SC ×2 (13:27→19:45)
[2023-12-13] MEDS: NON-FORMULARY ITEM 200 MG PO (14:17)
[2023-12-13] MEDS: SINEMET 25-100 2 TABLET TUBE ×2 (14:21→17:50)
--- NOTE | 2023-12-13 15:15 | CHAP ---
Mary was feeling emotional when I came - she acknowledged it has been a difficult day. But she talked about the 'positives,' saying that her dad is in touch with the insurance company, trying to move things along. Mary's mother came in to visit,
and Mary asked that we all pray together. She was, as always, very appreciative of the support, which I assured her will continue.
--- NOTE | 2023-12-13 15:39 | W.PN.HOSP.TC ---
Today's Communication/Plan
-
Monitor closely on 4 mg IV Ativan drip
As needed IV meds for breakthrough symptoms
Assessment / Plan
Assessment / Plan
#Massive activation syndrome
#H/O recurrent anaphylaxis
-Follows with Dr. MONTRELL solares at [facility] hematology
-Outpatient IV Benadryl drip at 15 mg per hour on arrival, have been titrating down slowly based on symptoms
-complex multimodal regimen Gleevac, steroids, Ativan, levalbuterol
-11/26 multidisciplinary meeting: IV meds transitioned to oral meds to optimize regimen for outpatient setting
-Currently on oral Benadryl 25 mg every 4 hours, lorazepam 1 mg every 4 hours
-PRNs: 25 mg Benadryl infusion for breakthrough dystonia, hydromorphone oral 8 mg every 6 hours for severe pain with Suboxone
-Pursued transfer to tertiary center that this was declined due to patient complexity
Plan
-Wean IV Benadryl per protocol shown below
-Continue p.o. regimen for outpatient optimization
-As needed IV Benadryl hydromorphone for breakthrough symptoms
Diphenhydramine continuous infusion taper schedule Q72hr
12/03 @12/06 @1259 � 7MG/HR
12/06 @12/09 @1259 � 6MG/HR
12/09 @12/12 @1259 � 5MG/HR
12/12 @1299 � 730 @1259 � 4MG/HR
12/15 @1299 � 8/2 @1259 � 3MG/HR
12/18 @1299 � 8 @1259 � 2MG/HR
12/21 @12/24 @1259 � 1MG/HR
12/24 @1299 � Stop infusion
#DOPA-responsive dystonia
-Per previous hospitalist, lip review was unyielding, patient educated that this is unusual feature though demonstrated in small percent of patients
-Home medications include carbidopa-levodopa, baclofen
-Hydromorphone 8 mg every 6 hours as needed for breakthrough pain with Suboxone
#Chronic pain syndrome
#High-dose opioid dependency
-likely related to chronic dystonia
-Remains on p.o. hydromorphone and Suboxone
#GERD
-No history of Tony's or erosive esophagitis
-Home regimen includes famotidine, Aciphex, simethicone
# Chronic iron deficiency anemia
-Likely related to nutritional status, menstruation over time
-Continued on ferrous sulfate
#H/O tachycardia
-Home medications include propranolol, unclear etiology
-Heart rate WNL today
#Chronic Nausea / Esophageal Dysmotility/gastroparesis
#S/P GJ tube
-Home medications include famotidine, Emend, Zofran every 8 hours as needed
-G-tube to gravity for chronic nausea, meds via J-tube
-PEG tube site without any signs of cellulitis.
#Acute fractures of the left anterolateral 6th and 7th ribs
#S/p fall overnight 10/03-10/04
-Suspect from recent fall on 10/03
-10/25 complains of pain on the posterolateral lower ribs
-Continue lidocaine patch, add heating packs
#Steroid-Induced DM-II
#Steroid-induced osteoporosis
-Chronic steroids for the above issues, steady dose of prednisone
-Currently receiving basal insulin and NovoLog with Accu-Cheks
-Blood glucose remains marginal
#Allergy-induced asthma
#Chronic hypoxic respiratory failure--on O2
-Unclear etiology of chronic respiratory failure, suspected frequent exacerbations though not clear how oxygen would help with preventing this
-Medications include albuterol, budesonide inhaler; also on cetirizine and cromolyn
-No wheezing or signs of exacerbation at this time
-Oxygen levels stable
#Thrush
-Completed course of clotrimazole Troches
#Migraine Hx
-ODT Nurtec as needed
#Restless leg syndrome
-Continue baclofen
#History of DVT/PE
-Likely provoked from stasis; no known history of underlying hypercoagulability
-No signs or symptoms of thrombosis here
#Burkholderia cepacia bacteremia
#PICC line infection
-Presented with fever, positive PICC line culture of tip
-Which treated with a full course of ciprofloxacin 750 mg twice daily
-Completed ABX on 10/06/2023, no growth on repeat cultures
-Resolved
DVT prophylaxis: Full dose Lovenox
Diet: Carbohydrate controlled
CODE STATUS: DNR on admission
Disposition: Discussion with primary slabbing machine operator Dr. Ethan Villanueva on 10/09. Discussed possibility of attempting weaning Benadryl drip likely could be done as outpatient. With current family social situation, unfortunately there is no options
for disposition other than home on IV infusion. Possibility of a transfer to [facility] discussed as well, although according to Dr. Villanueva hospital administration declined services due to complexity. Also discussed possibility of
transfer to tertiary center ([facility] declined in the past).
10/[address] Villanueva over the phone as well as [facility] [place] transfer center. Complex patient. Attempt to wean off Benadryl drip over the last 2 weeks with persistent dystonic episodes
While patient is relatively stable with her current condition, given complex clinical picture requiring multi disciplinary approach not limited to medicine, hematology, allergology, as well as neuropsychiatric assessment, patient would be better
served at a tertiary facility. Patient was accepted to [facility] for transfer, but hospital administration denied her transfer due to complexity (discussed with patient who is aware)
Anticipated Discharge: > 48 hours
Subjective/Interval History
-
Date of Service: December 13, 2023
No acute events overnight. Remains on 4 mg Benadryl from IV drip, plan to reduce rate further on 12/16/2023. No signs of anaphylaxis or worsening dystonia as of now. She says she feels okay this morning and has no new acute complaints. Denies
chest pain, shortness of breath, fevers or chills, nausea at time of my eval.
Objective Data
-
Vital Signs:
Vital Signs
Temp Pulse Resp BP Pulse Ox
97.9 F 92 16 107/66 98
12/13/23 12:00 12/13/23 07:22 12/13/23 07:22 12/13/23 04:00 12/12/23 20:43
I&O
12/12/23 12/13/23 12/14/23
06:59 06:59 06:59
Intake Total 750 / 750 520.5 / 520.5
Output Total 2049 / 2049 1999 / 1999 1000 / 1000
Balance -1300 / -1300 -1479.5 / -1479.5 -1000 / -1000
Review of Systems
-
History Source: Patient
All other systems: Reviewed and negative
Physical Exam
-
General: No Apparent Distress, Comfortable and Appears Chronically Ill
HEENT: Normocephalic, Atraumatic and Moist Mucous Membranes
Respiratory: Clear to Auscultation and Non Labored Respirations; Negative Wheezes, Rales or Rhonchi
Cardiac: Regular Rhythm and S1/S2; Negative Murmur, Rub, JVD or Gallop
GI: Soft, Nontender, Nondistended and Normal Bowel Sounds
Musculoskeletal: No Clubbing, No Cyanosis and No Edema
Skin: Warm and Dry; Negative Rash
Neuro: AO x 3, Nonfocal/Grossly Intact and Central Nerve's Intact; Negative Tremors
Psych: Calm
--- NOTE | 2023-12-13 15:47 | PTCARENOTE ---
Assumed care of patient at beginning of this shift from previous RN with benadryl infusing at 5ml/hr; weaned to 4ml/hr today as per order. Patient had one dystonic episode so far; medicated with benadryl and zofran. See worklist for full assessment
and vital signs; see MAR for med administration.
[2023-12-13] MEDS: ZYRTEC 10 MG TUBE ×2 (16:39→21:18)
[2023-12-13 16:47] LABS: Glucose - Point of Care 109 mg/dl (70-99)
[2023-12-13 18:10] VITALS: BP 113/76
--- NOTE | 2023-12-13 18:10 | PTCARENOTE ---
Patient had another dystonic episode. Benadryl prn dose given 30mins prior to next dose due; Dr Patel aware. Dystonic episode has passed. Patient due for mealtime insulin; patient stated she may not eat dinner right away. Will report off to next
shift to administer if patient does not eat prior to end of this shift. Patient stated she will call nurse if she does decide to eat. Will leave med not documented so it can be given on next shift.
[2023-12-13 19:42] LABS: Glucose - Point of Care 103 mg/dl (70-99)
[2023-12-13] MEDS: COLACE 100 MG PO (19:47)
[2023-12-13 20:00] VITALS: BP 110/78
[2023-12-13] MEDS: DUONEB 3 ML INH (20:21)
[2023-12-13] MEDS: FEOSOL 325 MG PO (21:17)
[2023-12-13] MEDS: BENADRYL SOLUTION TUBE (21:18)
[2023-12-13 21:44] LABS: Glucose - Point of Care 135 mg/dl (70-99)
[2023-12-14] VITALS: BP 96/67
[2023-12-14] MEDS: ATIVAN 1 MG SL ×6 (00:55→20:35)
[2023-12-14] MEDS: BENADRYL SOLUTION 25 MG TUBE ×6 (01:00→22:48)
[2023-12-14 04:00] VITALS: BP 101/70
[2023-12-14] MEDS: GASTROCROM 300 MG PO ×4 (05:00→22:48)
[2023-12-14] MEDS: SINEMET 25-100 1.5 TABLET TUBE ×2 (05:00→09:21)
[2023-12-14] MEDS: LIORESAL 10 MG TUBE ×3 (05:00→22:47)
[2023-12-14] MEDS: PULMICORT 0.5 MG INH ×2 (07:03→20:38)
[2023-12-14 08:00] VITALS: BP 114/79
[2023-12-14] MEDS: BENADRYL 50.5 MG IV ×2 (09:04→16:29)
[2023-12-14] MEDS: BENADRYL 100 MG IV (09:06)
[2023-12-14] MEDS: MIRALAX 17 GRAMS TUBE (09:09)
[2023-12-14] MEDS: LOVENOX 90 MG SC ×2 (09:09→20:32)
[2023-12-14] MEDS: LIDOCAINE 4% PATCH 1 PATCH TOPICAL (09:10)
[2023-12-14] MEDS: ZOFRAN 4 MG IV ×3 (09:14→22:48)
[2023-12-14] MEDS: NSS (PRESERVATIVE FREE) 6 ML IV ×2 (09:15→20:37)
[2023-12-14] MEDS: PEPCID 40 MG IV ×2 (09:15→20:34)
[2023-12-14] MEDS: HYDREA 500 MG PO ×2 (09:19→20:37)
[2023-12-14] MEDS: DELTASONE 10 MG TUBE ×2 (09:20→20:36)
[2023-12-14] MEDS: CLARITIN 10 MG TUBE (09:21)
[2023-12-14] MEDS: COLACE 100 MG PO ×2 (09:22→20:35)
[2023-12-14] MEDS: VITAMIN B1 100 MG TUBE (09:22)
[2023-12-14] MEDS: INDERAL 10 MG TUBE ×3 (09:23→22:46)
[2023-12-14] MEDS: SUBUTEX 2 MG SL ×4 (09:23→22:45)
[2023-12-14] MEDS: NON-FORMULARY ITEM NASAL (09:25)
[2023-12-14] MEDS: ZADITOR 1 DROP BOTH EYES ×2 (09:25→20:38)
[2023-12-14] MEDS: NON-FORMULARY ITEM 1 UNIT PO ×2 (09:26→20:39)
[2023-12-14] MEDS: NON-FORMULARY ITEM 1 MG PO ×2 (09:27→20:39)
[2023-12-14] MEDS: NOVOLOG FLEXPEN SC (09:28)
[2023-12-14] MEDS: LANTUS SC ×2 (09:28→09:39)
[2023-12-14] MEDS: NOVOLOG FLEXPEN-LOW RESISTANCE SC ×3 (09:28→18:21)
[2023-12-14] MEDS: DESENEX/MITRAZOL/ZEASORB 1 APPLIC TOPICAL ×2 (09:28→20:32)
[2023-12-14] MEDS: NON-FORMULARY ITEM PO (09:29)
[2023-12-14 09:46] LABS: Glucose - Point of Care 89 mg/dl (70-99)
--- NOTE | 2023-12-14 09:51 | PTCARENOTE ---
pt w/dystonia episode. PRN benadryl given as ordered. Pt also requesting IV zofran. Attack lasted approximately 20 minutes.
--- NOTE | 2023-12-14 10:04 | PTCARENOTE ---
JORGE LUIS matias held d/t glucose being 89. notified and agreed. Pt also refused AM novolog d/t nausea and no appetite. aware.
--- NOTE | 2023-12-14 10:34 | W.PN.HOSP.TC ---
Today's Communication/Plan
-
Continue Benadryl troponin protocol
Continue oral and IV breakthrough medications as currently prescribed
Assessment / Plan
Assessment / Plan
#Massive activation syndrome
#H/O recurrent anaphylaxis
-Follows with Dr. MONTRELL solares at [facility] hematology
-Outpatient IV Benadryl drip at 15 mg per hour on arrival, have been titrating down slowly based on symptoms
-complex multimodal regimen Gleevac, steroids, Ativan, levalbuterol; goal is to reduce quantity of standing IV meds
-11/26 multidisciplinary meeting: IV meds transitioned to oral meds to optimize regimen for outpatient setting
-Currently on oral Benadryl 25 mg every 4 hours, lorazepam 1 mg every 4 hours; down to 4 mg/h Benadryl drip
-PRNs: 25 mg Benadryl infusion for breakthrough dystonia, hydromorphone oral 8 mg every 6 hours for severe pain with Suboxone
-Pursued transfer to tertiary center that this was declined due to patient complexity
Plan
-Wean IV Benadryl per protocol shown below
-Continue p.o. regimen for outpatient optimization
-As needed IV Benadryl hydromorphone for breakthrough symptoms
Diphenhydramine continuous infusion taper schedule Q72hr -- see previous notes for full schedule with the previous dosing
12/12 @1300 � 12/15 @1259 � 4MG/HR
12/15 @1300 � 8/ @1259 � 3MG/HR
12/18 @1299 � 8/ @1259 � 2MG/HR
12/21 @1300 � / @1259 � 1MG/HR
12/24 @1300 � Stop infusion
#DOPA-responsive dystonia
-Per previous hospitalist, lip review was unyielding, patient educated that this is unusual feature though demonstrated in small percent of patients
-Home medications include carbidopa-levodopa, baclofen
-Hydromorphone 8 mg every 6 hours as needed for breakthrough pain with Suboxone
#Chronic pain syndrome
#High-dose opioid dependency
-likely related to chronic dystonia
-Remains on p.o. hydromorphone and Suboxone
#GERD
-No history of Tony's or erosive esophagitis
-Home regimen includes famotidine, Aciphex, simethicone
# Chronic iron deficiency anemia
-Likely related to nutritional status, menstruation over time
-Continued on ferrous sulfate
#H/O tachycardia
-Home medications include propranolol, unclear etiology
-Heart rate WNL today
#Chronic Nausea / Esophageal Dysmotility/gastroparesis
#S/P GJ tube
-Home medications include famotidine, Emend, Zofran every 8 hours as needed
-G-tube to gravity for chronic nausea, meds via J-tube
-PEG tube site without any signs of cellulitis.
#Acute fractures of the left anterolateral 6th and 7th ribs
#S/p fall overnight 10/03-10/04
-Suspect from recent fall on 10/03
-10/25 complains of pain on the posterolateral lower ribs
-Continue lidocaine patch, add heating packs
#Steroid-Induced DM-II
#Steroid-induced osteoporosis
-Chronic steroids for the above issues, steady dose of prednisone
-Currently receiving basal insulin and NovoLog with Accu-Cheks
-Blood glucose remains marginal
#Allergy-induced asthma
#Chronic hypoxic respiratory failure--on O2
-Unclear etiology of chronic respiratory failure, suspected frequent exacerbations though not clear how oxygen would help with preventing this
-Medications include albuterol, budesonide inhaler; also on cetirizine and cromolyn
-No wheezing or signs of exacerbation at this time
-Oxygen levels stable
#Thrush
-Completed course of clotrimazole Troches
#Migraine Hx
-ODT Nurtec as needed
#Restless leg syndrome
-Continue baclofen
#History of DVT/PE
-Likely provoked from stasis; no known history of underlying hypercoagulability
-No signs or symptoms of thrombosis here
#Burkholderia cepacia bacteremia
#PICC line infection
-Presented with fever, positive PICC line culture of tip
-Which treated with a full course of ciprofloxacin 750 mg twice daily
-Completed ABX on 10/06/2023, no growth on repeat cultures
-Resolved
DVT prophylaxis: Full dose Lovenox
Diet: Carbohydrate controlled
CODE STATUS: DNR on admission
Disposition: Discussion with primary machine programmer Dr. Ethan Villanueva on 10/09. Discussed possibility of attempting weaning Benadryl drip likely could be done as outpatient. With current family social situation, unfortunately there is no options
for disposition other than home on IV infusion. Possibility of a transfer to [facility] discussed as well, although according to Dr. Villanueva hospital administration declined services due to complexity. Also discussed possibility of
transfer to tertiary center ([facility] declined in the past).
10/[address] Villanueva over the phone as well as [facility] transfer center. Complex patient. Attempt to wean off Benadryl drip over the last 2 weeks with persistent dystonic episodes
While patient is relatively stable with her current condition, given complex clinical picture requiring multi disciplinary approach not limited to medicine, hematology, allergology, as well as neuropsychiatric assessment, patient would be better
served at a tertiary facility. Patient was accepted to [facility] for transfer, but hospital administration denied her transfer due to complexity (discussed with patient who is aware)
Anticipated Discharge: > 48 hours
Subjective/Interval History
-
Date of Service: December 14, 2023
No acute events overnight. She did have 1 dystonic reaction yesterday in the late afternoon though recovered and is feeling generally better this morning. Still not to the point that she wants to be.
She was very tearful when I was speaking with her today. She has concerns that some people may not believe that her disease is real. Additionally is concerned that she is going to lose IV access if her IV medications are reduced. I spoke with her
about how to my knowledge, removing all IV access is not planned at this time. Goal is to reduce reliance on standing IV medications and drips, but IV access would still be needed for emergent breakthrough therapies.
She complains of generalized weakness, states that her dystonia worsens after eating, and believes that reduced Benadryl doses are contributing.
She denies chest pain, shortness of breath, fevers or chills, urinary issues, paresthesias or muscle weakness
Objective Data
-
Vital Signs:
Vital Signs
Temp Pulse Resp BP Pulse Ox
98.3 F 84 16 101/70 97
12/14/23 07:00 12/14/23 07:03 12/14/23 07:03 12/14/23 04:00 12/14/23 01:00
I&O
12/13/23 12/14/23 12/15/23
06:59 06:59 06:59
Intake Total 520.5 / 520.5 732 / 732
Output Total 1999 / 1999 2675 / 2675
Balance -1479.5 / -1479.5 -1943 / -1943
Review of Systems
-
History Source: Patient
All other systems: Reviewed and negative
Physical Exam
-
General: Well Nourished, Appears in Distress (Emotional, crying) and Appears Chronically Ill
HEENT: Normocephalic, Atraumatic and Moist Mucous Membranes
Respiratory: Clear to Auscultation and Non Labored Respirations; Negative Wheezes, Rales or Rhonchi
Cardiac: Regular Rhythm and S1/S2; Negative Murmur, Rub or Gallop
GI: Soft, Nondistended and Normal Bowel Sounds
Musculoskeletal: No Clubbing, No Cyanosis and No Edema
Skin: Warm and Dry; Negative Rash or Jaundice
Neuro: AO x 3, Nonfocal/Grossly Intact and Central Nerve's Intact
Data Reviewed
-
Labs: Labs Reviewed by me
[2023-12-14 12:00] VITALS: BP 109/66
[2023-12-14 13:38] LABS: Glucose - Point of Care 101 mg/dl (70-99)
[2023-12-14] MEDS: SINEMET 25-100 2 TABLET TUBE ×2 (13:40→18:21)
[2023-12-14] MEDS: NON-FORMULARY ITEM 200 MG PO (13:46)
[2023-12-14] MEDS: NOVOLOG FLEXPEN 3 UNITS SC ×2 (13:47→18:20)
[2023-12-14 16:00] VITALS: BP 112/70
[2023-12-14] MEDS: ZYRTEC 10 MG TUBE ×2 (16:33→22:46)
[2023-12-14 18:12] LABS: Glucose - Point of Care 137 mg/dl (70-99)
[2023-12-14 20:00] VITALS: BP 116/79
[2023-12-14] MEDS: DUONEB 3 ML INH (20:38)
[2023-12-14 21:38] LABS: Glucose - Point of Care 109 mg/dl (70-99)
[2023-12-14] MEDS: FEOSOL 325 MG PO (22:47)
--- NOTE | 2023-12-14 23:00 | PTCARENOTE ---
Pt recieved from day shift, AAOx3. Benadryl gtt infusing at 4mL/hr. C/o of nausea PRN Zofran given (see MAR). Resting comfortably in bed with call sanchez in reach.
[2023-12-15] VITALS: BP 116/78
[2023-12-15] MEDS: BENADRYL SOLUTION 25 MG TUBE ×6 (01:13→21:02)
[2023-12-15] MEDS: ATIVAN 1 MG SL ×6 (01:13→21:12)
[2023-12-15 04:00] VITALS: BP 103/70
[2023-12-15] MEDS: LIORESAL 10 MG TUBE ×3 (04:56→21:12)
[2023-12-15] MEDS: SINEMET 25-100 1.5 TABLET TUBE ×2 (04:57→09:28)
[2023-12-15 08:00] VITALS: BP 113/85
[2023-12-15 08:00] LABS: Glucose - Point of Care 100 mg/dl (70-99)
[2023-12-15] MEDS: PULMICORT 0.5 MG INH ×2 (08:06→20:46)
[2023-12-15] MEDS: DUONEB 3 ML INH (08:06)
--- NOTE | 2023-12-15 08:48 | CM ---
Addendum entered by Ting Winchester 12/15/23 16:33:
per Roslyn the insurance is in touch with [employer], [facility] [employer] and [employer], awaiting for updates on staffing availability. Per Roslyn the prior provider is demanding to renegotiate his payment fees prior to starting to schedule
caregivers. So per Roslyn home health arrangements are not in place at this time.
Original Note:
CM called to Roslyn from [facility]. Per Roslyn meeting scheduled today for her to meet with supervisor correspondence section and RN agencies,at 2pm. Per Roslyn the contract and arrangements are not in place at this time. CM will continue to follow for discharge planning
needs.
PLan; home with VN agency when arrangements complete per insurance
[2023-12-15] MEDS: NOVOLOG FLEXPEN-LOW RESISTANCE SC ×3 (09:21→17:45)
[2023-12-15] MEDS: LANTUS 0.1 UNITS SC (09:22)
[2023-12-15] MEDS: NOVOLOG FLEXPEN SC ×2 (09:22→14:47)
[2023-12-15] MEDS: LIDOCAINE 4% PATCH 1 PATCH TOPICAL (09:23)
[2023-12-15] MEDS: MIRALAX 17 GRAMS TUBE (09:23)
[2023-12-15] MEDS: LOVENOX 90 MG SC ×2 (09:24→21:02)
[2023-12-15] MEDS: GASTROCROM 300 MG PO ×4 (09:26→21:03)
[2023-12-15] MEDS: VITAMIN B1 100 MG TUBE (09:30)
[2023-12-15] MEDS: DELTASONE 10 MG TUBE ×2 (09:30→21:15)
[2023-12-15] MEDS: HYDREA 500 MG PO ×2 (09:31→21:16)
[2023-12-15] MEDS: PEPCID 40 MG IV ×2 (09:32→21:05)
[2023-12-15] MEDS: NSS (PRESERVATIVE FREE) 6 ML IV ×2 (09:33→21:04)
[2023-12-15] MEDS: SUBUTEX 2 MG SL ×4 (09:33→21:13)
[2023-12-15] MEDS: INDERAL 10 MG TUBE ×3 (09:34→21:14)
[2023-12-15] MEDS: COLACE 100 MG PO ×2 (09:34→21:14)
[2023-12-15] MEDS: CLARITIN 10 MG TUBE (09:35)
[2023-12-15] MEDS: NON-FORMULARY ITEM 1 MG PO ×2 (09:35→21:19)
[2023-12-15] MEDS: NON-FORMULARY ITEM NASAL (09:36)
[2023-12-15] MEDS: NON-FORMULARY ITEM 1 UNIT PO ×2 (09:36→21:10)
[2023-12-15] MEDS: DESENEX/MITRAZOL/ZEASORB 1 APPLIC TOPICAL ×2 (09:37→21:09)
[2023-12-15] MEDS: NON-FORMULARY ITEM PO (09:37)
[2023-12-15] MEDS: ZOFRAN 4 MG IV ×2 (09:48→17:56)
[2023-12-15] MEDS: BENADRYL 100 MG IV (10:09)
[2023-12-15] MEDS: ZADITOR 1 DROP BOTH EYES ×2 (10:10→21:18)
[2023-12-15 12:00] VITALS: BP 100/69
[2023-12-15] MEDS: BENADRYL 50.5 MG IV (14:16)
[2023-12-15] MEDS: SINEMET 25-100 2 TABLET TUBE ×2 (14:48→17:44)
[2023-12-15 14:53] LABS: Glucose - Point of Care 103 mg/dl (70-99)
--- NOTE | 2023-12-15 15:06 | PTCARENOTE ---
Pt had one episode requiring Benadryl , now feeling better. Washed and changed . Pt awaiting her step mother to visit
[2023-12-15 16:00] VITALS: BP 118/83
[2023-12-15] MEDS: NON-FORMULARY ITEM 2 MG PO (16:18)
[2023-12-15] MEDS: ZYRTEC 10 MG TUBE ×2 (16:20→21:16)
--- NOTE | 2023-12-15 16:47 | W.PN.HOSP.TC ---
Today's Communication/Plan
-
Continue Benadryl drip titration, currently down to 4 mg an hour
Assessment / Plan
Assessment / Plan
Impression:
Gram-negative bacteremia due to chronic infected PICC line.
Fever on admission with no evidence of sepsis (tachycardia likely fever mediated)
Conditions prior to admission:
1. Mast cell activation syndrome.
2. Chronic dystonic reaction.
3. Orthostatic hypotension with postural orthostatic and
tachycardia syndrome.
4. Dopa sensitive dystonia.
5. Steroid-induced diabetes.
6. Prior history of deep venous thrombosis and pulmonary embolism.
7. Chronic pain syndrome.
8. Migraine headaches.
9. Gastroesophageal reflux disease.
10. Benzodiazepine and opiate dependence.
11. Restless legs syndrome.
12. Insomnia.
13. History of vocal cord dysfunction.
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
15. Gastroparesis.
16. 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
17. 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
Plan:
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
PICC line removed and PICC line replaced on 09/23
Repeated blood cultures negative on 09/20 but no other cultures obtained
Finished cipro on 10/06/23 (was on 750mg BID)
GJ tube in place
Replaced by interventional radiology on 09/22
Replaced by interventional radiology 11/04 due to concern leakage
HX Recurrent Anaphylaxis / Mast Cell Flare Episodes on chronic steroids
Mast Cell Activation Syndrome
DOPA-Responsive Dystonia
-follows with Dr. Lizabeth Villanueva at [facility] hematology.
- Continue Ativan
�-cont Gleevac ,steroids
�--Levalbuterol as needed, to do her eyedrops
-Continue carbidopa levodopa
-prednisone continued
-Outpatient IV Benadryl drip at 15 milligram an hour upon presentation. As discussed with primary sub prior Dr. Mora plan is to slowly taper. Decreased Benadryl drip down to 8 mg an hour on 11/30
Multiple conversations with patient almost on a daily basis in regards to goals of care including attempt to wean off Benadryl drip with possibly substitution to oral regimen to facilitate discharge as well as outpatient management. Patient has
been resistant to wean off Benadryl drip completely at this point.
11/26. Multidisciplinary meeting including psychiatry, clinical pharmacy, medicine, nursing.
Patient clinical course along with medication regimen has been reviewed.
With the goal of minimize exposure to IV medications and optimize regimen following changes implemented:
-Daily IV fluids discontinued with plan to monitor oral intake and orthostatics.
� IV Benadryl pushes have been discontinued.
� Lorazepam sublingual as needed order has been discontinued.
IV lorazepam has been discontinued
Initiated:
Benadryl 25 mg infusion through piggyback will be provided over 10 minutes for breakthrough dystonic attack.
Benadryl p.o. 25 mg will be scheduled every 4 hours.
Lorazepam sublingual 1 mg with the scheduled while awake every 4 hours.
Hydromorphone p.o. 8 mg will be continued every 6 hours as needed for severe pain along with Suboxone.
12/02.
Multidisciplinary discussion involving nursing, primary service, psychiatry, pharmacy, case management
Plan is to continue current care including intravenous Benadryl drip wean. Schedule below:
Diphenhydramine continuous infusion taper schedule Q72hr
12/03 @12/06 @1259 � 7MG/HR
12/06 @12/09 @1259 � 6MG/HR
12/09 @12/12 @1259 � 5MG/HR
12/12 @12/15 @1259 � 4MG/HR
12/15 @1299 � 8 @1259 � 3MG/HR
12/18 @12/21 @1259 � 2MG/HR
12/21 @1300 � 12/24 @1259 � 1MG/HR
12/24 @1300 � Stop infusion
Can consider increasing diphenhydramine PO up to max 300mg/day IF NEEDED. I would recommend increasing if episodes increase.
dystonia/movement disorder-patient apparently has dystonic features with her mast cell activation syndrome. I could not find in literature as a routine clinical presentation but according to patient apparently this is very unusual feature which was
noted in few other patients . She was on IV Benadryl pump at 15 mg/h at home.
-baclofen continued
-sinemet continued
-episodes with vasovagal response when trying to have a BM - start standing miralax and colace BID
Chronic pain syndrome-on high doses of narcotics (chronic opioid use with dependence) including p.o. Dilaudid and Suboxone at home. Again unclear the source of her pain.
GERD
-famotidine continued
-acipHex continued
-simethicone continued
iron def anemia
-ferrous sulfate continued
hxt of tachycardia
-EKG with sinus tachycardia
-propranolol continued
Chronic Nausea / Esophageal Dysmotility/gastroparesis
History GJ tube
�- Continue diet as tolerated.
�- Continue G-tube to gravity for chronic nausea.
�- Meds via J-tube.
-Zofran every 8 hours as needed
-Continue Pepcid
-emend continued
- PEG tube site without any signs of cellulitis. CT of the abdomen pelvis shows no subcutaneous collection around the PEG tube and it is in place.
Acute fractures of the left 6 anterolateral 6th and 7th ribs
-Suspect from recent fall on 10/03
-10/25 complains of pain on the posterolateral lower ribs
-Continue lidocaine patch, add heating packs
Steroid-Induced DM-II--
She remains on steady dose of prednisone
Blood glucose remains marginal
Monitor oral intake
Reduce Lantus and NovoLog AC
Continue serial Accu-Cheks with basal bolus protocol.
S/p fall overnight 10/03-10/04
imaging negative for bleed or fracture
Steroid-Induced Osteoporosis
Chronic Pain Syndrome secondary to the above on chronic opiates
�- Continue buprenorphine 2 mg 4 times daily , Dilaudid 8 mg as needed
�- PT / OT evaluations.
�- Follow-up with usual sourcing specialist after discharge.
allergy induced asthma
chronic hypoxic respiratory failure--on O2
-albuterol continued
-budesonide continued
-cetirizine continued
-cromolyn continued
Thrush
Completed course of clotrimazole Troches for thrush
Migraine Hx
ODT Nurtec as needed
Restless leg syndrome
-Continue baclofen
History of DVT/PE
#Takes subcu Lovenox 100 mg twice daily
DNR on admission
Disposition: Discussion with primary sub prior Dr. Ethan Villanueva on 10/09. Discussed possibility of attempting weaning Benadryl drip likely could be done as outpatient. With current family social situation, unfortunately there is no options
for disposition other than home on IV infusion. Possibility of a transfer to [facility] discussed as well, although according to Dr. Villanueva hospital administration declined services due to complexity. Also discussed possibility of
transfer to tertiary center ([facility] declined in the past).
10/[address] Villanueva over the phone as well as [facility] transfer center.
Complex patient. Attempt to wean off Benadryl drip over the last 2 weeks with persistent dystonic episodes
While patient is relatively stable with her current condition, given complex clinical picture requiring multi disciplinary approach not limited to medicine, hematology, allergology, as well as neuropsychiatric assessment, patient would be better
served at a tertiary facility. Patient was accepted to [facility] for transfer, but hospital administration denied her transfer due to complexity (discussed with patient who is aware)
Anticipated Discharge: > 48 hours
Subjective/Interval History
-
Date of Service: December 15, 2023
Objective Data
-
Vital Signs:
Vital Signs
Temp Pulse Resp BP Pulse Ox
98.3 F 103 16 118/8 98
12/15/23 12:00 12/15/23 16:19 12/15/23 08:12 12/15/23 16:19 12/15/23 09:00
I&O
12/14/23 12/15/23 12/16/23
06:59 06:59 06:59
Intake Total 732 / 732 458 / 458
Output Total 2675 / 2675 2175 / 2175 1000 / 1000
Balance -1943 / -1943 -1717 / -1717 -1000 / -1000
Physical Exam
-
General: Well Nourished, Appears in Distress (Emotional, crying) and Appears Chronically Ill
HEENT: Normocephalic, Atraumatic and Moist Mucous Membranes
Respiratory: Clear to Auscultation and Non Labored Respirations; Negative Wheezes, Rales or Rhonchi
Cardiac: Regular Rhythm and S1/S2; Negative Murmur, Rub or Gallop
GI: Soft, Nondistended and Normal Bowel Sounds
Musculoskeletal: No Clubbing, No Cyanosis and No Edema
Skin: Warm and Dry; Negative Rash or Jaundice
Neuro: AO x 3, Nonfocal/Grossly Intact and Central Nerve's Intact
[2023-12-15 17:04] LABS: Glucose - Point of Care 134 mg/dl (70-99)
[2023-12-15] MEDS: NOVOLOG FLEXPEN 3 UNITS SC (17:45)
[2023-12-15 20:00] VITALS: BP 105/79
[2023-12-15] MEDS: FEOSOL 325 MG PO (21:15)
[2023-12-15 21:48] LABS: Glucose - Point of Care 116 mg/dl (70-99)
[2023-12-16] VITALS (9 sets, daily range): BP systolic 95–135; BP diastolic 64–98; PULSE 99
[2023-12-16] MEDS: BENADRYL SOLUTION 25 MG TUBE ×6 (00:55→20:01)
[2023-12-16] MEDS: ATIVAN 1 MG SL ×6 (00:56→19:38)
[2023-12-16] MEDS: SINEMET 25-100 1.5 TABLET TUBE ×2 (05:07→09:55)
[2023-12-16] MEDS: LIORESAL 10 MG TUBE ×3 (05:07→21:17)
--- NOTE | 2023-12-16 06:00 | PTCARENOTE ---
received pt from day shift, AAOx3, tearful when discussing apartment. Benadryl ggt @ 4mL/hr. MELONIE meds given, no dystonic episodes. Resting in bed with call sanchez in reach.
[2023-12-16] MEDS: MIRALAX 17 GRAMS TUBE (07:24)
[2023-12-16] MEDS: DELTASONE 10 MG TUBE ×2 (07:25→21:22)
[2023-12-16] MEDS: INDERAL 10 MG TUBE ×3 (07:25→21:19)
[2023-12-16] MEDS: VITAMIN B1 100 MG TUBE (07:25)
[2023-12-16] MEDS: NSS (PRESERVATIVE FREE) 6 ML IV ×2 (07:25→21:18)
[2023-12-16] MEDS: PEPCID 40 MG IV ×2 (07:25→21:18)
[2023-12-16] MEDS: SUBUTEX 2 MG SL ×4 (07:26→21:19)
[2023-12-16] MEDS: GASTROCROM 300 MG PO ×4 (07:26→21:25)
[2023-12-16] MEDS: CLARITIN 10 MG TUBE (07:26)
[2023-12-16] MEDS: LOVENOX 90 MG SC ×2 (07:26→21:18)
[2023-12-16] MEDS: COLACE 100 MG PO ×2 (07:27→21:18)
[2023-12-16] MEDS: HYDREA 500 MG PO ×2 (07:27→21:22)
[2023-12-16] MEDS: LIDOCAINE 4% PATCH 1 PATCH TOPICAL (07:27)
[2023-12-16] MEDS: NON-FORMULARY ITEM 1 MG PO ×2 (07:28→21:24)
[2023-12-16] MEDS: NON-FORMULARY ITEM 1 UNIT PO ×2 (07:28→21:24)
[2023-12-16] MEDS: NON-FORMULARY ITEM NASAL (07:29)
[2023-12-16] MEDS: NON-FORMULARY ITEM PO (07:29)
[2023-12-16] MEDS: ZADITOR 1 DROP BOTH EYES ×2 (07:30→21:25)
[2023-12-16] MEDS: DESENEX/MITRAZOL/ZEASORB 1 APPLIC TOPICAL ×2 (07:30→21:21)
[2023-12-16] MEDS: NOVOLOG FLEXPEN SC (07:39)
[2023-12-16] MEDS: NOVOLOG FLEXPEN-LOW RESISTANCE SC ×3 (07:39→16:54)
[2023-12-16] MEDS: PULMICORT 0.5 MG INH ×2 (07:39→19:39)
[2023-12-16] MEDS: LANTUS 0.1 UNITS SC (07:45)
[2023-12-16 08:08] LABS: Glucose - Point of Care 97 mg/dl (70-99)
[2023-12-16] MEDS: BENADRYL 100 MG IV (09:54)
[2023-12-16] MEDS: ZOFRAN 4 MG IV ×2 (10:04→19:30)
[2023-12-16] MEDS: BENADRYL 50.5 MG IV ×2 (10:04→19:31)
[2023-12-16] MEDS: NOVOLOG FLEXPEN 3 UNITS SC ×2 (12:30→16:51)
[2023-12-16 12:41] LABS: Glucose - Point of Care 120 mg/dl (70-99)
--- NOTE | 2023-12-16 13:28 | CM ---
Patient with Hx Mast Cell Activation Syndrome, dystonia/movement disorder, chronic pain syndrome, gastroparesis with Dx Gram-negative bacteremia due to chronic infected PICC line. O2 2L. IV Benadryl gtt with taper. PT & OT recommend HH.
Spoke with Leni Mcgowan [facility]; she and her gelatin plant supervisor are continuing to look for another agency that can provide skilled nurses and non-skilled caregivers, as they have not been able to come to an agreement with [facility]. Roslyn asked JOJO to
place referrals to [facility], [facility] & [facility]. Roslyn clarified that Nurse Home Services are approved 124 hrs/week, and Non-Skilled Caregivers are approved 44/hrs/wk. CM agreed to make referrals via
[facility] and provide update to Roslyn with responses. She is aware that the plan is still for d/c to home to her new apartment with VN/Caregiver services, and that patient is medically ready for d/c whenever Nurse & Caregiver providers are in place.
Referrals placed via [facility] to [facility], [facility] & [facility]. for patient who currently needs RN for home IV infusion (124 hrs/week skilled nurse), PT, and OT and 44 hours/week non skilled caregivers.
Plan follow up Nurse/Caregiver referrals.
[2023-12-16] MEDS: SINEMET 25-100 2 TABLET TUBE ×2 (14:14→16:52)
[2023-12-16] MEDS: NON-FORMULARY ITEM 100 MG PO (14:15)
[2023-12-16 16:14] LABS: Glucose - Point of Care 101 mg/dl (70-99)
[2023-12-16] MEDS: ZYRTEC 10 MG TUBE ×2 (16:52→21:17)
--- NOTE | 2023-12-16 17:38 | W.PN.HOSP.TC ---
Today's Communication/Plan
-
Continue Benadryl drip taper.
Assessment / Plan
Assessment / Plan
Impression:
Gram-negative bacteremia due to chronic infected PICC line.
Fever on admission with no evidence of sepsis (tachycardia likely fever mediated)
Conditions prior to admission:
1. Mast cell activation syndrome.
2. Chronic dystonic reaction.
3. Orthostatic hypotension with postural orthostatic and
tachycardia syndrome.
4. Dopa sensitive dystonia.
5. Steroid-induced diabetes.
6. Prior history of deep venous thrombosis and pulmonary embolism.
7. Chronic pain syndrome.
8. Migraine headaches.
9. Gastroesophageal reflux disease.
10. Benzodiazepine and opiate dependence.
11. Restless legs syndrome.
12. Insomnia.
13. History of vocal cord dysfunction.
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
15. Gastroparesis.
16. 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
17. 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
Plan:
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
PICC line removed and PICC line replaced on 09/23
Repeated blood cultures negative on 09/20 but no other cultures obtained
Finished cipro on 10/06/23 (was on 750mg BID)
GJ tube in place
Replaced by interventional radiology on 09/22
Replaced by interventional radiology 11/04 due to concern leakage
HX Recurrent Anaphylaxis / Mast Cell Flare Episodes on chronic steroids
Mast Cell Activation Syndrome
DOPA-Responsive Dystonia
-follows with Dr. Lizabeth Villanueva at [facility] hematology.
- Continue Ativan
�-cont Gleevac ,steroids
�--Levalbuterol as needed, to do her eyedrops
-Continue carbidopa levodopa
-prednisone continued
-Outpatient IV Benadryl drip at 15 milligram an hour upon presentation. As discussed with primary service attendant cafeteria Dr. Mora plan is to slowly taper. Decreased Benadryl drip down to 8 mg an hour on 11/30
Multiple conversations with patient almost on a daily basis in regards to goals of care including attempt to wean off Benadryl drip with possibly substitution to oral regimen to facilitate discharge as well as outpatient management. Patient has
been resistant to wean off Benadryl drip completely at this point.
11/26. Multidisciplinary meeting including psychiatry, clinical pharmacy, medicine, nursing.
Patient clinical course along with medication regimen has been reviewed.
With the goal of minimize exposure to IV medications and optimize regimen following changes implemented:
-Daily IV fluids discontinued with plan to monitor oral intake and orthostatics.
� IV Benadryl pushes have been discontinued.
� Lorazepam sublingual as needed order has been discontinued.
IV lorazepam has been discontinued
Initiated:
Benadryl 25 mg infusion through piggyback will be provided over 10 minutes for breakthrough dystonic attack.
Benadryl p.o. 25 mg will be scheduled every 4 hours.
Lorazepam sublingual 1 mg with the scheduled while awake every 4 hours.
Hydromorphone p.o. 8 mg will be continued every 6 hours as needed for severe pain along with Suboxone.
12/02.
Multidisciplinary discussion involving nursing, primary service, psychiatry, pharmacy, case management
Plan is to continue current care including intravenous Benadryl drip wean. Schedule below:
Diphenhydramine continuous infusion taper schedule Q72hr
12/03 @12/06 @1259 � 7MG/HR
12/06 @12/09 @1259 � 6MG/HR
12/09 @12/12 @1259 � 5MG/HR
12/12 @12/15 @1259 � 4MG/HR
12/15 @1299 � 8 @1259 � 3MG/HR
12/18 @1299 � 8 @1259 � 2MG/HR
12/21 @1300 � 88 @1259 � 1MG/HR
12/24 @1300 � Stop infusion
Can consider increasing diphenhydramine PO up to max 300mg/day IF NEEDED. I would recommend increasing if episodes increase.
dystonia/movement disorder-patient apparently has dystonic features with her mast cell activation syndrome. I could not find in literature as a routine clinical presentation but according to patient apparently this is very unusual feature which was
noted in few other patients . She was on IV Benadryl pump at 15 mg/h at home.
-baclofen continued
-sinemet continued
-episodes with vasovagal response when trying to have a BM - start standing miralax and colace BID
Chronic pain syndrome-on high doses of narcotics (chronic opioid use with dependence) including p.o. Dilaudid and Suboxone at home. Again unclear the source of her pain.
GERD
-famotidine continued
-acipHex continued
-simethicone continued
iron def anemia
-ferrous sulfate continued
hxt of tachycardia
-EKG with sinus tachycardia
-propranolol continued
Chronic Nausea / Esophageal Dysmotility/gastroparesis
History GJ tube
�- Continue diet as tolerated.
�- Continue G-tube to gravity for chronic nausea.
�- Meds via J-tube.
-Zofran every 8 hours as needed
-Continue Pepcid
-emend continued
- PEG tube site without any signs of cellulitis. CT of the abdomen pelvis shows no subcutaneous collection around the PEG tube and it is in place.
Acute fractures of the left 6 anterolateral 6th and 7th ribs
-Suspect from recent fall on 10/03
-10/25 complains of pain on the posterolateral lower ribs
-Continue lidocaine patch, add heating packs
Steroid-Induced DM-II--
She remains on steady dose of prednisone
Blood glucose remains marginal
Monitor oral intake
Reduce Lantus and NovoLog AC
Continue serial Accu-Cheks with basal bolus protocol.
S/p fall overnight 10/03-10/04
imaging negative for bleed or fracture
Steroid-Induced Osteoporosis
Chronic Pain Syndrome secondary to the above on chronic opiates
�- Continue buprenorphine 2 mg 4 times daily , Dilaudid 8 mg as needed
�- PT / OT evaluations.
�- Follow-up with usual motor tune up specialist after discharge.
allergy induced asthma
chronic hypoxic respiratory failure--on O2
-albuterol continued
-budesonide continued
-cetirizine continued
-cromolyn continued
Thrush
Completed course of clotrimazole Troches for thrush
Migraine Hx
ODT Nurtec as needed
Restless leg syndrome
-Continue baclofen
History of DVT/PE
#Takes subcu Lovenox 100 mg twice daily
DNR on admission
Disposition: Discussion with primary service attendant cafeteria Dr. Ethan Villanueva on 10/09. Discussed possibility of attempting weaning Benadryl drip likely could be done as outpatient. With current family social situation, unfortunately there is no options
for disposition other than home on IV infusion. Possibility of a transfer to [facility] discussed as well, although according to Dr. Villanueva hospital administration declined services due to complexity. Also discussed possibility of
transfer to tertiary center ([facility] declined in the past).
10/[address] Villanueva over the phone as well as [facility] transfer center.
Complex patient. Attempt to wean off Benadryl drip over the last 2 weeks with persistent dystonic episodes
While patient is relatively stable with her current condition, given complex clinical picture requiring multi disciplinary approach not limited to medicine, hematology, allergology, as well as neuropsychiatric assessment, patient would be better
served at a tertiary facility. Patient was accepted to [facility] for transfer, but hospital administration denied her transfer due to complexity (discussed with patient who is aware)
Anticipated Discharge: > 48 hours
Subjective/Interval History
-
Date of Service: December 16, 2023
Objective Data
-
Vital Signs:
Vital Signs
Temp Pulse Resp BP Pulse Ox
98 F 95 15 121/87 98
12/16/23 15:15 12/16/23 16:52 12/16/23 10:00 12/16/23 16:52 12/15/23 21:45
I&O
12/15/23 12/16/23 12/17/23
06:59 06:59 06:59
Intake Total 458 / 458
Output Total 2175 / 2175 2600 / 2600 550 / 550
Balance -1717 / -1717 -2600 / -2600 -550 / -550
Physical Exam
-
General: Well Developed and No Apparent Distress
GI: Organomegaly
Skin: Rash
Neuro: Other (Sound asleep)
[2023-12-16] MEDS: DUONEB 3 ML INH (19:39)
--- NOTE | 2023-12-16 20:27 | PTCARENOTE ---
Received pt at change of shift. Pt was having an episode requiring her PRN benadryl. She also requested to have a breathing treatment as she was coughing and having difficulty taking a breath. 2L NC was on and her pulse ox was 97%. RT at bedside
to administer treatment.
[2023-12-16] MEDS: FEOSOL 325 MG PO (21:20)
[2023-12-16 21:40] LABS: Glucose - Point of Care 167 mg/dl (70-99)
[2023-12-17] VITALS: BP 111/69
[2023-12-17] MEDS: BENADRYL 50.5 MG IV ×3 (00:49→17:14)
[2023-12-17] MEDS: BENADRYL SOLUTION 25 MG TUBE ×6 (01:14→21:23)
[2023-12-17] MEDS: ATIVAN 1 MG SL ×6 (01:14→19:36)
[2023-12-17 04:00] VITALS: BP 107/68
[2023-12-17] MEDS: SINEMET 25-100 1.5 TABLET TUBE ×2 (05:06→09:32)
[2023-12-17] MEDS: LIORESAL 10 MG TUBE ×3 (05:06→21:19)
[2023-12-17] MEDS: DUONEB 3 ML INH ×3 (07:31→20:07)
[2023-12-17] MEDS: PULMICORT 0.5 MG INH ×2 (07:31→20:06)
[2023-12-17 08:00] VITALS: BP 106/77
[2023-12-17 08:52] LABS: Glucose - Point of Care 108 mg/dl (70-99)
[2023-12-17] MEDS: NOVOLOG FLEXPEN-LOW RESISTANCE SC ×3 (08:52→17:20)
--- NOTE | 2023-12-17 09:13 | PTCARENOTE ---
Pt sleeping , L PICC with Benadryl at [address] Accu check done. Pt wishes to sleep at this time.
[2023-12-17] MEDS: GASTROCROM 300 MG PO ×4 (09:34→21:18)
[2023-12-17] MEDS: MIRALAX 17 GRAMS TUBE (09:34)
[2023-12-17] MEDS: HYDREA 500 MG PO ×2 (09:35→19:37)
[2023-12-17] MEDS: VITAMIN B1 100 MG TUBE (09:36)
[2023-12-17] MEDS: SUBUTEX 2 MG SL ×4 (09:36→21:20)
[2023-12-17] MEDS: NSS (PRESERVATIVE FREE) 6 ML IV ×2 (09:37→19:37)
[2023-12-17] MEDS: DELTASONE 10 MG TUBE ×2 (09:37→19:36)
[2023-12-17] MEDS: PEPCID 40 MG IV ×2 (09:38→19:37)
[2023-12-17] MEDS: COLACE 100 MG PO ×2 (09:38→19:36)
[2023-12-17] MEDS: CLARITIN 10 MG TUBE (09:39)
[2023-12-17] MEDS: INDERAL 10 MG TUBE ×3 (09:39→21:19)
[2023-12-17] MEDS: LIDOCAINE 4% PATCH 1 PATCH TOPICAL (09:40)
[2023-12-17] MEDS: DESENEX/MITRAZOL/ZEASORB 1 APPLIC TOPICAL ×2 (09:40→19:41)
[2023-12-17] MEDS: NON-FORMULARY ITEM 1 UNIT PO ×2 (09:41→19:46)
[2023-12-17] MEDS: LOVENOX 90 MG SC ×2 (09:41→19:37)
[2023-12-17] MEDS: NON-FORMULARY ITEM 1 MG PO ×2 (09:42→19:46)
[2023-12-17] MEDS: NON-FORMULARY ITEM NASAL (09:43)
[2023-12-17] MEDS: LANTUS 0.1 UNITS SC (10:24)
[2023-12-17] MEDS: NOVOLOG FLEXPEN SC ×3 (10:25→17:19)
[2023-12-17] MEDS: NON-FORMULARY ITEM PO (10:26)
[2023-12-17] MEDS: ZADITOR 1 DROP BOTH EYES ×2 (10:27→19:38)
--- NOTE | 2023-12-17 11:24 | CM ---
Patient with Hx Mast Cell Activation Syndrome, dystonia/movement disorder, chronic pain syndrome, gastroparesis with Dx Gram-negative bacteremia due to chronic infected PICC line. O2 1L. IV Benadryl gtt with taper - last dose 12/25/23. PT & OT
recommend HH.
Spoke with agencies that [facility] [employer] has contracts with and has contacted: [facility] [place], [facility] [place]. [facility] declined, other agency responses pending.
Spoke with Dr Kirk; it is uncertain if patient will need any other IV meds once IV Benadryl gtt is tapered off. She may need a few days of observation to determine that, once IV Benadryl drip completes.
Spoke with Roslyn Ferreira, Eyelet Punch Operator [facility] [employer] ([place] [phone]); discussed that patient will be off IV Benadry gtt on 12/24 and MD indicated patient may possibly/possibly not need other IV meds for home. If patient doesn't need any
other IV meds at d/c then the poultry hatchery man does not need to be approved, and more agencies may accept the referral. Roslyn also requests additional referral to [facility].
Spoke with [facility] ([place] [phone], fax [phone]); although they are in [place] she cannot access the referral there- sent referral via [employer]. She is aware uncertain if skilled nurse visits will be needed.
Case discussed with Brigida Leavitt, CM [employer].
Plan ongoing efforts for accepting agency for skilled nurse shift assignments/PT/OT and Caregiver vs VN for SN (intermittent visits)/PT/OT and Caregiver, once MD decided on final meds.
Plan discharge to apartment with VN & Caregiver agency, once final d/c meds are known.
[2023-12-17 12:00] VITALS: BP 110/76
[2023-12-17] MEDS: BENADRYL 100 MG IV (12:59)
[2023-12-17] MEDS: ZOFRAN 4 MG IV ×2 (13:00→19:52)
--- NOTE | 2023-12-17 13:17 | PTCARENOTE ---
on rounds pt having an episode given rescue benadryl. 1300 meds given as ordered.
[2023-12-17 13:24] LABS: Glucose - Point of Care 126 mg/dl (70-99)
[2023-12-17] MEDS: SINEMET 25-100 2 TABLET TUBE ×2 (14:48→17:15)
--- NOTE | 2023-12-17 15:13 | PTCARENOTE ---
Pt drowsy easily aroused by name. Appropriate meds given via tube
[2023-12-17] MEDS: NON-FORMULARY ITEM 2 MG PO (15:57)
[2023-12-17 16:00] VITALS: BP 119/97
[2023-12-17] MEDS: ZYRTEC 10 MG TUBE ×2 (16:09→21:18)
--- NOTE | 2023-12-17 16:19 | W.PN.HOSP.TC ---
Today's Communication/Plan
-
Continue IV Benadryl taper.
Assessment / Plan
Assessment / Plan
Impression:
Gram-negative bacteremia due to chronic infected PICC line.
Fever on admission with no evidence of sepsis (tachycardia likely fever mediated)
Conditions prior to admission:
1. Mast cell activation syndrome.
2. Chronic dystonic reaction.
3. Orthostatic hypotension with postural orthostatic and
tachycardia syndrome.
4. Dopa sensitive dystonia.
5. Steroid-induced diabetes.
6. Prior history of deep venous thrombosis and pulmonary embolism.
7. Chronic pain syndrome.
8. Migraine headaches.
9. Gastroesophageal reflux disease.
10. Benzodiazepine and opiate dependence.
11. Restless legs syndrome.
12. Insomnia.
13. History of vocal cord dysfunction.
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
15. Gastroparesis.
16. 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
17. 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
Plan:
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
PICC line removed and PICC line replaced on 09/23
Repeated blood cultures negative on 09/20 but no other cultures obtained
Finished cipro on 10/06/23 (was on 750mg BID)
GJ tube in place
Replaced by interventional radiology on 09/22
Replaced by interventional radiology 11/04 due to concern leakage
HX Recurrent Anaphylaxis / Mast Cell Flare Episodes on chronic steroids
Mast Cell Activation Syndrome
DOPA-Responsive Dystonia
-follows with Dr. Lizabeth Villanueva at [facility] hematology.
- Continue Ativan
�-cont Gleevac ,steroids
�--Levalbuterol as needed, to do her eyedrops
-Continue carbidopa levodopa
-prednisone continued
-Outpatient IV Benadryl ip at 15 milligram an hour upon presentation. As discussed with primary supervisor phosphatic fertilizer Dr. Mora plan is to slowly taper. Decreased Benadryl drip down to 8 mg an hour on 11/30
Multiple conversations with patient almost on a daily basis in regards to goals of care including attempt to wean off Benadryl drip with possibly substitution to oral regimen to facilitate discharge as well as outpatient management. Patient has
been resistant to wean off Benadryl drip completely at this point.
11/26. Multidisciplinary meeting including psychiatry, clinical pharmacy, medicine, nursing.
Patient clinical course along with medication regimen has been reviewed.
With the goal of minimize exposure to IV medications and optimize regimen following changes implemented:
-Daily IV fluids discontinued with plan to monitor oral intake and orthostatics.
� IV Benadryl pushes have been discontinued.
� Lorazepam sublingual as needed order has been discontinued.
IV lorazepam has been discontinued
Initiated:
Benadryl 25 mg infusion through piggyback will be provided over 10 minutes for breakthrough dystonic attack.
Benadryl p.o. 25 mg will be scheduled every 4 hours.
Lorazepam sublingual 1 mg with the scheduled while awake every 4 hours.
Hydromorphone p.o. 8 mg will be continued every 6 hours as needed for severe pain along with Suboxone.
12/02.
Multidisciplinary discussion involving nursing, primary service, psychiatry, pharmacy, case management
Plan is to continue current care including intravenous Benadryl drip wean. Schedule below:
Diphenhydramine continuous infusion taper schedule Q72hr
12/03 @12/06 @1259 � 7MG/HR
12/06 @12/09 @1259 � 6MG/HR
12/09 @12/12 @1259 � 5MG/HR
12/12 @12/15 @1259 � 4MG/HR
12/15 @1299 � 8 @1259 � 3MG/HR
12/18 @1299 � 8 @1259 � 2MG/HR
8/5 @1300 � 8/8 @1259 � 1MG/HR
12/24 @1300 � Stop infusion
Can consider increasing diphenhydramine PO up to max 300mg/day IF NEEDED. I would recommend increasing if episodes increase.
dystonia/movement disorder-patient apparently has dystonic features with her mast cell activation syndrome. I could not find in literature as a routine clinical presentation but according to patient apparently this is very unusual feature which was
noted in few other patients . She was on IV Benadryl pump at 15 mg/h at home.
-baclofen continued
-sinemet continued
-episodes with vasovagal response when trying to have a BM - start standing miralax and colace BID
Chronic pain syndrome-on high doses of narcotics (chronic opioid use with dependence) including p.o. Dilaudid and Suboxone at home. Again unclear the source of her pain.
GERD
-famotidine continued
-acipHex continued
-simethicone continued
iron def anemia
-ferrous sulfate continued
hxt of tachycardia
-EKG with sinus tachycardia
-propranolol continued
Chronic Nausea / Esophageal Dysmotility/gastroparesis
History GJ tube
�- Continue diet as tolerated.
�- Continue G-tube to gravity for chronic nausea.
�- Meds via J-tube.
-Zofran every 8 hours as needed
-Continue Pepcid
-emend continued
- PEG tube site without any signs of cellulitis. CT of the abdomen pelvis shows no subcutaneous collection around the PEG tube and it is in place.
Acute fractures of the left 6 anterolateral 6th and 7th ribs
-Suspect from recent fall on 10/03
-10/25 complains of pain on the posterolateral lower ribs
-Continue lidocaine patch, add heating packs
Steroid-Induced DM-II--
She remains on steady dose of prednisone
Blood glucose remains marginal
Monitor oral intake
Reduce Lantus and NovoLog AC
Continue serial Accu-Cheks with basal bolus protocol.
S/p fall overnight 10/03-10/04
imaging negative for bleed or fracture
Steroid-Induced Osteoporosis
Chronic Pain Syndrome secondary to the above on chronic opiates
�- Continue buprenorphine 2 mg 4 times daily , Dilaudid 8 mg as needed
�- PT / OT evaluations.
�- Follow-up with usual vascular specialists after discharge.
allergy induced asthma
chronic hypoxic respiratory failure--on O2
-albuterol continued
-budesonide continued
-cetirizine continued
-cromolyn continued
Thrush
Completed course of clotrimazole Troches for thrush
Migraine Hx
ODT Nurtec as needed
Restless leg syndrome
-Continue baclofen
History of DVT/PE
#Takes subcu Lovenox 100 mg twice daily
DNR on admission
Disposition: Discussion with primary supervisor phosphatic fertilizer Dr. Ethan Villanueva on 10/09. Discussed possibility of attempting weaning Benadryl drip likely could be done as outpatient. With current family social situation, unfortunately there is no options
for disposition other than home on IV infusion. Possibility of a transfer to [facility] discussed as well, although according to Dr. Villanueva hospital administration declined services due to complexity. Also discussed possibility of
transfer to tertiary center ([facility] declined in the past).
10/[address] Villanueva over the phone as well as [facility] transfer center.
Complex patient. Attempt to wean off Benadryl drip over the last 2 weeks with persistent dystonic episodes
While patient is relatively stable with her current condition, given complex clinical picture requiring multi disciplinary approach not limited to medicine, hematology, allergology, as well as neuropsychiatric assessment, patient would be better
served at a tertiary facility. Patient was accepted to [facility] for transfer, but hospital administration denied her transfer due to complexity (discussed with patient who is aware)
Anticipated Discharge: > 48 hours
Subjective/Interval History
-
Date of Service: December 17, 2023
Objective Data
-
Vital Signs:
Vital Signs
Temp Pulse Resp BP Pulse Ox
98.2 F 106 15 119/97 94
12/17/23 11:18 12/17/23 15:58 12/17/23 14:00 12/17/23 15:58 12/17/23 07:40
I&O
12/16/23 12/17/23 12/18/23
06:59 06:59 06:59
Intake Total 136 / 136
Output Total 2600 / 2600 2500 / 2500
Balance -2600 / -2600 -2364 / -2364
Physical Exam
-
General: Well Developed and No Apparent Distress
GI: Organomegaly
Skin: Rash
Neuro: Other (Sound asleep)
--- NOTE | 2023-12-17 16:34 | PTCARENOTE ---
Pt very upset she feels she her body is responding in re to being weaned off meds. She states her body is aching and she can not eat . She states she feels she can not take much more.
[2023-12-17 17:07] LABS: Glucose - Point of Care 126 mg/dl (70-99)
[2023-12-17] MEDS: TYLENOL PO (17:13)
--- NOTE | 2023-12-17 17:30 | PTCARENOTE ---
Mary having an episode coughing dystonic movements hr 150 . Rsp to give atreatmentmeds given as ordered. Lips are blue O2 to 3l pox 97
--- NOTE | 2023-12-17 17:49 | PTCARENOTE ---
Dr Wakefield TT re episode not ending with rescue meds orders given
[2023-12-17] MEDS: ADRENALIN 0.3 MG IM (17:56)
[2023-12-17] MEDS: BENADRYL 50 MG IV (17:58)
[2023-12-17] MEDS: NSS (PRESERVATIVE FREE) 1 ML IV (18:04)
[2023-12-17] MEDS: ATIVAN 2 MG IV (18:06)
--- NOTE | 2023-12-17 18:09 | PTCARENOTE ---
New otders given and meds given. Ptnowm coming out of episode. HR 121 pox 94 back on 1 l O2
[2023-12-17 21:17] VITALS: BP 117/73
[2023-12-17] MEDS: FEOSOL 325 MG PO (21:18)
[2023-12-17 21:25] LABS: Glucose - Point of Care 116 mg/dl (70-99)
[2023-12-18] VITALS (10 sets, daily range): BP systolic 105–127; BP diastolic 64–98; PULSE 102; O2SAT 97
[2023-12-18] MEDS: BENADRYL 50.5 MG IV ×4 (00:09→21:21)
[2023-12-18] MEDS: ATIVAN 1 MG SL ×6 (00:12→21:25)
--- NOTE | 2023-12-18 00:44 | PTCARENOTE ---
Addendum entered by Linda Johnson 12/18/23 02:20:
Additional benadryl given per ELECTRONICS ENGINEERING TECHNICIAN order
Addendum entered by Linda Johnson 12/18/23 02:10:
Episode beginning to slow down, but dystonic symptoms continue. Pt requests home medication for migraine, given per JUL. ELECTRONICS ENGINEERING TECHNICIAN notified of pt condition and status of extended episode.
Addendum entered by Linda Johnson 12/18/23 01:57:
Episode continues. Scheduled dose of benadryl given via tube. Pt begins with bronchospasm, PRN epi given IM, see MAR.
Original Note:
pt experiencing episode of dystonia beginning around 00:11, rescue benadryl given. Pt due for scheduled ativan, scheduled dose given at start of attack. BP stable, HR ST 137 RR 18, SaO2 97% 3L. Lips blue, nonrebreather mask placed with improvement.
[2023-12-18] MEDS: BENADRYL SOLUTION 25 MG TUBE ×6 (01:06→21:29)
[2023-12-18] MEDS: ADRENALIN 0.3 MG IM (01:50)
[2023-12-18] MEDS: NON-FORMULARY ITEM 1 UNIT PO ×3 (02:07→21:32)
[2023-12-18] MEDS: BENADRYL 25 MG IV (02:14)
--- NOTE | 2023-12-18 02:42 | PTCARENOTE ---
Extended dystonic episode concluded. Pt is oriented, VSS. Pt requests ice chips and a wet washcloth.
[2023-12-18] MEDS: ZOFRAN 4 MG IV ×2 (04:35→10:37)
[2023-12-18] MEDS: SINEMET 25-100 1.5 TABLET TUBE ×2 (05:05→09:43)
[2023-12-18] MEDS: LIORESAL 10 MG TUBE ×3 (05:05→21:29)
[2023-12-18] MEDS: PULMICORT 0.5 MG INH ×2 (07:53→20:34)
[2023-12-18 08:31] LABS: Glucose - Point of Care 78 mg/dl (70-99)
[2023-12-18] MEDS: GASTROCROM 300 MG PO ×4 (08:55→21:27)
[2023-12-18] MEDS: NOVOLOG FLEXPEN-LOW RESISTANCE SC ×2 (09:40→18:00)
[2023-12-18] MEDS: ZADITOR 1 DROP BOTH EYES ×2 (09:41→21:30)
[2023-12-18] MEDS: LIDOCAINE 4% PATCH 1 PATCH TOPICAL (09:42)
[2023-12-18] MEDS: VITAMIN B1 100 MG TUBE (09:44)
[2023-12-18] MEDS: LOVENOX 90 MG SC ×2 (09:45→21:26)
[2023-12-18] MEDS: DELTASONE 10 MG TUBE ×2 (09:45→21:28)
[2023-12-18] MEDS: HYDREA 500 MG PO ×2 (09:46→21:28)
[2023-12-18] MEDS: CLARITIN 10 MG TUBE (09:46)
[2023-12-18] MEDS: INDERAL 10 MG TUBE ×3 (09:47→21:29)
[2023-12-18] MEDS: SUBUTEX 2 MG SL ×4 (09:47→21:25)
[2023-12-18] MEDS: COLACE 100 MG PO ×2 (09:48→21:29)
[2023-12-18] MEDS: PEPCID 40 MG IV ×2 (09:49→21:30)
[2023-12-18] MEDS: NSS (PRESERVATIVE FREE) 6 ML IV ×2 (09:49→21:30)
[2023-12-18] MEDS: NON-FORMULARY ITEM 1 MG PO ×2 (09:50→21:31)
[2023-12-18] MEDS: NON-FORMULARY ITEM NASAL (09:52)
[2023-12-18] MEDS: MIRALAX 17 GRAMS TUBE (09:52)
[2023-12-18] MEDS: LANTUS 0.1 UNITS SC (10:10)
[2023-12-18] MEDS: NOVOLOG FLEXPEN SC (12:15)
[2023-12-18 12:46] LABS: Glucose - Point of Care 174 mg/dl (70-99)
[2023-12-18] MEDS: NOVOLOG FLEXPEN 3 UNITS SC ×2 (13:35→19:33)
[2023-12-18] MEDS: NOVOLOG FLEXPEN-LOW RESISTANCE 1 UNITS SC (13:35)
[2023-12-18] MEDS: DESENEX/MITRAZOL/ZEASORB 1 APPLIC TOPICAL ×2 (13:37→21:30)
[2023-12-18] MEDS: SINEMET 25-100 2 TABLET TUBE ×2 (13:38→17:37)
[2023-12-18] MEDS: NON-FORMULARY ITEM 200 MG PO (13:39)
[2023-12-18] MEDS: NON-FORMULARY ITEM PO (13:52)
--- NOTE | 2023-12-18 16:12 | CM ---
Patient with Hx Mast Cell Activation Syndrome, dystonia/movement disorder, chronic pain syndrome, gastroparesis with Dx Gram-negative bacteremia due to chronic infected PICC line.
Spoke with Usama Soriano [facility] , fax [phone]); she has 2 nurse who may be available for shift assignments if skilled nurse visits will be needed, and they will need to do Meet and Greet with the patient here in the
hospital. These nurses will want guaranteed hours, so if shift assignments will not be needed ongoing they may not accept the assignment. She spoke with the patient who maintains she is being discharged on 01/09.
Roslyn Ferreira, Senior Engineering Team Leader [facility] [employer] ([place] [phone]); left message requesting callback to clarify is she approved nurse for shift assignments regardless if patient needs IV meds post d/c.
Plan follow up with Leni URIBE tomorrow re; approved outpatient nurse services.
Plan ongoing efforts for accepting agency for skilled nurse shift assignments/PT/OT and Caregiver vs VN for SN (intermittent visits)/PT/OT and Caregiver, once MD decided on final meds.
Plan discharge to apartment with VN & Caregiver agency, once final d/c meds are known.
[2023-12-18] MEDS: DUONEB 3 ML INH (16:49)
[2023-12-18] MEDS: ZYRTEC 10 MG TUBE ×2 (16:50→21:30)
[2023-12-18] MEDS: BENADRYL 100 MG IV (17:00)
--- NOTE | 2023-12-18 17:16 | W.PN.HOSP.TC ---
Today's Communication/Plan
-
Remains on IV Benadryl at this point weaned off to 3 mg an hour.
Daily dystonic episodes while exam with no evidence of bronchospasm or stridor.
Dystonic episodes usually improved with additional dose of IV lorazepam and Benadryl.
Assessment / Plan
Assessment / Plan
Impression:
Gram-negative bacteremia due to chronic infected PICC line.
Fever on admission with no evidence of sepsis (tachycardia likely fever mediated)
Conditions prior to admission:
1. Mast cell activation syndrome.
2. Chronic dystonic reaction.
3. Orthostatic hypotension with postural orthostatic and
tachycardia syndrome.
4. Dopa sensitive dystonia.
5. Steroid-induced diabetes.
6. Prior history of deep venous thrombosis and pulmonary embolism.
7. Chronic pain syndrome.
8. Migraine headaches.
9. Gastroesophageal reflux disease.
10. Benzodiazepine and opiate dependence.
11. Restless legs syndrome.
12. Insomnia.
13. History of vocal cord dysfunction.
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
15. Gastroparesis.
16. 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
17. 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
Plan:
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
PICC line removed and PICC line replaced on 09/23
Repeated blood cultures negative on 09/20 but no other cultures obtained
Finished cipro on 10/06/23 (was on 750mg BID)
GJ tube in place
Replaced by interventional radiology on 09/22
Replaced by interventional radiology 11/04 due to concern leakage
HX Recurrent Anaphylaxis / Mast Cell Flare Episodes on chronic steroids
Mast Cell Activation Syndrome
DOPA-Responsive Dystonia
-follows with Dr. Lizabeth Villanueva at [facility] hematology.
- Continue Ativan
�-cont Gleevac ,steroids
�--Levalbuterol as needed, to do her eyedrops
-Continue carbidopa levodopa
-prednisone continued
-Outpatient IV Benadryl drip at 15 milligram an hour upon presentation. As discussed with primary circle cutting saw operator Dr. Mora plan is to slowly taper. Decreased Benadryl drip down to 8 mg an hour on 11/30
Multiple conversations with patient almost on a daily basis in regards to goals of care including attempt to wean off Benadryl drip with possibly substitution to oral regimen to facilitate discharge as well as outpatient management. Patient has
been resistant to wean off Benadryl drip completely at this point.
11/26. Multidisciplinary meeting including psychiatry, clinical pharmacy, medicine, nursing.
Patient clinical course along with medication regimen has been reviewed.
With the goal of minimize exposure to IV medications and optimize regimen following changes implemented:
-Daily IV fluids discontinued with plan to monitor oral intake and orthostatics.
� IV Benadryl pushes have been discontinued.
� Lorazepam sublingual as needed order has been discontinued.
IV lorazepam has been discontinued
Initiated:
Benadryl 25 mg infusion through piggyback will be provided over 10 minutes for breakthrough dystonic attack.
Benadryl p.o. 25 mg will be scheduled every 4 hours.
Lorazepam sublingual 1 mg with the scheduled while awake every 4 hours.
Hydromorphone p.o. 8 mg will be continued every 6 hours as needed for severe pain along with Suboxone.
12/02.
Multidisciplinary discussion involving nursing, primary service, psychiatry, pharmacy, case management
Plan is to continue current care including intravenous Benadryl drip wean. Schedule below:
Diphenhydramine continuous infusion taper schedule Q72hr
12/03 @12/06 @1259 � 7MG/HR
12/06 @12/09 @1259 � 6MG/HR
12/09 @12/12 @1259 � 5MG/HR
12/12 @12/15 @1259 � 4MG/HR
12/15 @1300 � 8 @1259 � 3MG/HR
12/18 @1300 � 8 @1259 � 2MG/HR
12/21 @1300 � 8 @1259 � 1MG/HR
12/24 @1300 � Stop infusion
Can consider increasing diphenhydramine PO up to max 300mg/day IF NEEDED. I would recommend increasing if episodes increase.
dystonia/movement disorder-patient apparently has dystonic features with her mast cell activation syndrome. I could not find in literature as a routine clinical presentation but according to patient apparently this is very unusual feature which was
noted in few other patients . She was on IV Benadryl pump at 15 mg/h at home.
-baclofen continued
-sinemet continued
-episodes with vasovagal response when trying to have a BM - start standing miralax and colace BID
Chronic pain syndrome-on high doses of narcotics (chronic opioid use with dependence) including p.o. Dilaudid and Suboxone at home. Again unclear the source of her pain.
GERD
-famotidine continued
-acipHex continued
-simethicone continued
iron def anemia
-ferrous sulfate continued
hxt of tachycardia
-EKG with sinus tachycardia
-propranolol continued
Chronic Nausea / Esophageal Dysmotility/gastroparesis
History GJ tube
�- Continue diet as tolerated.
�- Continue G-tube to gravity for chronic nausea.
�- Meds via J-tube.
-Zofran every 8 hours as needed
-Continue Pepcid
-emend continued
- PEG tube site without any signs of cellulitis. CT of the abdomen pelvis shows no subcutaneous collection around the PEG tube and it is in place.
Acute fractures of the left 6 anterolateral 6th and 7th ribs
-Suspect from recent fall on 10/03
-10/25 complains of pain on the posterolateral lower ribs
-Continue lidocaine patch, add heating packs
Steroid-Induced DM-II--
She remains on steady dose of prednisone
Blood glucose remains marginal
Monitor oral intake
Reduce Lantus and NovoLog AC
Continue serial Accu-Cheks with basal bolus protocol.
S/p fall overnight 10/03-10/04
imaging negative for bleed or fracture
Steroid-Induced Osteoporosis
Chronic Pain Syndrome secondary to the above on chronic opiates
�- Continue buprenorphine 2 mg 4 times daily , Dilaudid 8 mg as needed
�- PT / OT evaluations.
�- Follow-up with usual revenue cycle specialist after discharge.
allergy induced asthma
chronic hypoxic respiratory failure--on O2
-albuterol continued
-budesonide continued
-cetirizine continued
-cromolyn continued
Thrush
Completed course of clotrimazole Troches for thrush
Migraine Hx
ODT Nurtec as needed
Restless leg syndrome
-Continue baclofen
History of DVT/PE
#Takes subcu Lovenox 100 mg twice daily
DNR on admission
Disposition: Discussion with primary circle cutting saw operator Dr. Ethan Villanueva on 10/09. Discussed possibility of attempting weaning Benadryl drip likely could be done as outpatient. With current family social situation, unfortunately there is no options
for disposition other than home on IV infusion. Possibility of a transfer to [facility] discussed as well, although according to Dr. Villanueva hospital administration declined services due to complexity. Also discussed possibility of
transfer to tertiary center ([facility] declined in the past).
10/[address] Villanueva over the phone as well as [facility] transfer center.
Complex patient. Attempt to wean off Benadryl drip over the last 2 weeks with persistent dystonic episodes
While patient is relatively stable with her current condition, given complex clinical picture requiring multi disciplinary approach not limited to medicine, hematology, allergology, as well as neuropsychiatric assessment, patient would be better
served at a tertiary facility. Patient was accepted to [facility] for transfer, but hospital administration denied her transfer due to complexity (discussed with patient who is aware)
Anticipated Discharge: > 48 hours
Subjective/Interval History
-
Date of Service: December 18, 2023
Objective Data
-
Vital Signs:
Vital Signs
Temp Pulse Resp BP Pulse Ox
98.2 F 135 20 105/70 94
12/18/23 15:41 12/18/23 16:51 12/18/23 16:51 12/18/23 08:00 12/18/23 16:51
I&O
12/17/23 12/18/23 12/19/23
06:59 06:59 06:59
Intake Total 136 / 136 530 / 530
Output Total 2500 / 2500 1625 / 1625 540 / 540
Balance -2364 / -2364 -1625 / -1625 -10 / -10
Physical Exam
-
General: Well Developed and No Apparent Distress
HEENT: Normocephalic, Atraumatic and Moist Mucous Membranes
Respiratory: Clear to Auscultation; Negative Wheezes
Cardiac: Regular Rhythm and S1/S2; Negative Murmur, Rub or Gallop
GI: Soft, Nontender, Nondistended, Normal Bowel Sounds and Peg Tube; Negative Organomegaly
Rectal: Deferred by Provider
Musculoskeletal: No Clubbing, No Cyanosis and No Edema
Skin: Negative Rash
Neuro: Nonfocal/Grossly Intact
[2023-12-18] MEDS: ATIVAN 2 MG IV (17:34)
[2023-12-18] MEDS: NSS (PRESERVATIVE FREE) 1 ML IV (17:36)
[2023-12-18 17:55] LABS: Glucose - Point of Care 126 mg/dl (70-99)
--- NOTE | 2023-12-18 18:45 | PTCARENOTE ---
"Patient had two dystonic episodes today. She had one in the morning and benadryl piggy back given quickly and this episode did not last very long. Late in the afternoon patient a longer one that was not relieved by benadryl piggy back. Dr. Ashu (~) notified and order obtained for iv ativan. Patient was provided ice packs and repositioning for comfort. Benadryl drip is infusing at 3mg/hr via left PICC. Vital signs stable. Patient is currently eating her dinner in bed."
[2023-12-18] MEDS: FEOSOL 325 MG PO (21:29)
[2023-12-18 21:51] LABS: Glucose - Point of Care 114 mg/dl (70-99)
[2023-12-19] VITALS (8 sets, daily range): BP systolic 92–154; BP diastolic 59–120
[2023-12-19] MEDS: ATIVAN 1 MG SL ×6 (01:06→21:14)
[2023-12-19] MEDS: BENADRYL SOLUTION 25 MG TUBE ×6 (01:06→21:10)
[2023-12-19] MEDS: LIORESAL 10 MG TUBE ×3 (05:34→21:13)
[2023-12-19] MEDS: SINEMET 25-100 1.5 TABLET TUBE ×2 (05:34→09:58)
--- NOTE | 2023-12-19 06:00 | PTCARENOTE ---
One short, mild dystonia episode. Meds administered per JUL. Pt able to sleep; appears exhausted. Med sitter in place for safety. Call sanchez and tray table within reach. Pt calls appropriately. Pt appreciative of care.
[2023-12-19] MEDS: DUONEB 3 ML INH ×3 (08:21→19:22)
[2023-12-19] MEDS: PULMICORT 0.5 MG INH ×2 (08:21→19:22)
--- NOTE | 2023-12-19 08:49 | W.PN.HOSP.TC ---
Today's Communication/Plan
-
see bold
Assessment / Plan
Assessment / Plan
Impression:
Gram-negative bacteremia due to chronic infected PICC line.
Fever on admission with no evidence of sepsis (tachycardia likely fever mediated)
Conditions prior to admission:
1. Mast cell activation syndrome.
2. Chronic dystonic reaction.
3. Orthostatic hypotension with postural orthostatic and
tachycardia syndrome.
4. Dopa sensitive dystonia.
5. Steroid-induced diabetes.
6. Prior history of deep venous thrombosis and pulmonary embolism.
7. Chronic pain syndrome.
8. Migraine headaches.
9. Gastroesophageal reflux disease.
10. Benzodiazepine and opiate dependence.
11. Restless legs syndrome.
12. Insomnia.
13. History of vocal cord dysfunction.
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
15. Gastroparesis.
16. 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
17. 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
Plan:
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
PICC line removed and PICC line replaced on 09/23
Repeated blood cultures negative on 09/20 but no other cultures obtained
Finished cipro on 10/06/23 (was on 750mg BID)
GJ tube in place
Replaced by interventional radiology on 09/22
Replaced by interventional radiology 11/04 due to concern leakage
HX Recurrent Anaphylaxis / Mast Cell Flare Episodes on chronic steroids
Mast Cell Activation Syndrome
DOPA-Responsive Dystonia
-follows with Dr. Lizabeth Villanueva at [facility] hematology.
- Continue Ativan
�-cont Gleevac ,steroids
�--Levalbuterol as needed, to do her eyedrops
-Continue carbidopa levodopa
-prednisone continued
-Outpatient IV Benadryl drip at 15 milligram an hour upon presentation. As discussed with primary assisted living coordinator Dr. Mora plan is to slowly taper. Decreased Benadryl drip down to 8 mg an hour on 11/30
Multiple conversations with patient almost on a daily basis in regards to goals of care including attempt to wean off Benadryl drip with possibly substitution to oral regimen to facilitate discharge as well as outpatient management. Patient has
been resistant to wean off Benadryl drip completely at this point.
11/26. Multidisciplinary meeting including psychiatry, clinical pharmacy, medicine, nursing.
Patient clinical course along with medication regimen has been reviewed.
With the goal of minimize exposure to IV medications and optimize regimen following changes implemented:
-Daily IV fluids discontinued with plan to monitor oral intake and orthostatics.
� IV Benadryl pushes have been discontinued.
� Lorazepam sublingual as needed order has been discontinued.
IV lorazepam has been discontinued
Initiated:
Benadryl 25 mg infusion through piggyback will be provided over 10 minutes for breakthrough dystonic attack.
Benadryl p.o. 25 mg will be scheduled every 4 hours.
Lorazepam sublingual 1 mg with the scheduled while awake every 4 hours.
Hydromorphone p.o. 8 mg will be continued every 6 hours as needed for severe pain along with Suboxone.
12/02.
Multidisciplinary discussion involving nursing, primary service, psychiatry, pharmacy, case management
Plan is to continue current care including intravenous Benadryl drip wean. Schedule below:
Diphenhydramine continuous infusion taper schedule Q72hr
12/18 @1300 � 8/5 @1259 � 2MG/HR
12/21 @1300 � 8/8 @1259 � 1MG/HR
12/24 @1300 � Stop infusion
Can consider increasing diphenhydramine PO up to max 300mg/day IF NEEDED. I would recommend increasing if episodes increase.
dystonia/movement disorder-patient apparently has dystonic features with her mast cell activation syndrome. I could not find in literature as a routine clinical presentation but according to patient apparently this is very unusual feature which was
noted in few other patients . She was on IV Benadryl pump at 15 mg/h at home.
-baclofen continued
-sinemet continued
-episodes with vasovagal response when trying to have a BM - start standing miralax and colace BID
Chronic pain syndrome-on high doses of narcotics (chronic opioid use with dependence) including p.o. Dilaudid and Suboxone at home. Again unclear the source of her pain.
GERD
-famotidine continued
-acipHex continued
-simethicone continued
iron def anemia
-ferrous sulfate continued
hxt of tachycardia
-EKG with sinus tachycardia
-propranolol continued
Chronic Nausea / Esophageal Dysmotility/gastroparesis
History GJ tube
�- Continue diet as tolerated.
�- Continue G-tube to gravity for chronic nausea.
�- Meds via J-tube.
-Zofran every 8 hours as needed
-Continue Pepcid
-emend continued
- PEG tube site without any signs of cellulitis. CT of the abdomen pelvis shows no subcutaneous collection around the PEG tube and it is in place.
Acute fractures of the left 6 anterolateral 6th and 7th ribs
-Suspect from recent fall on 10/03
-10/25 complains of pain on the posterolateral lower ribs
-Continue lidocaine patch, add heating packs
Steroid-Induced DM-II--
She remains on steady dose of prednisone
Blood glucose remains marginal
Monitor oral intake
Reduce Lantus and NovoLog AC
Continue serial Accu-Cheks with basal bolus protocol.
S/p fall overnight 10/03-10/04
imaging negative for bleed or fracture
Steroid-Induced Osteoporosis
Chronic Pain Syndrome secondary to the above on chronic opiates
�- Continue buprenorphine 2 mg 4 times daily , Dilaudid 8 mg as needed
�- PT / OT evaluations.
�- Follow-up with usual closing specialist after discharge.
allergy induced asthma
chronic hypoxic respiratory failure--on O2
-albuterol continued
-budesonide continued
-cetirizine continued
-cromolyn continued
Thrush
Completed course of clotrimazole Troches for thrush
Migraine Hx
ODT Nurtec as needed
Restless leg syndrome
-Continue baclofen
History of DVT/PE
#Takes subcu Lovenox 100 mg twice daily
DNR on admission
Disposition: Discussion with primary assisted living coordinator Dr. Ethan Villanueva on 10/09. Discussed possibility of attempting weaning Benadryl drip likely could be done as outpatient. With current family social situation, unfortunately there is no options
for disposition other than home on IV infusion. Possibility of a transfer to [facility] discussed as well, although according to Dr. Villanueva hospital administration declined services due to complexity. Also discussed possibility of
transfer to tertiary center ([facility] declined in the past).
10/[address] Villanueva over the phone as well as [facility] transfer center.
Complex patient. Attempt to wean off Benadryl drip over the last 2 weeks with persistent dystonic episodes
While patient is relatively stable with her current condition, given complex clinical picture requiring multi disciplinary approach not limited to medicine, hematology, allergology, as well as neuropsychiatric assessment, patient would be better
served at a tertiary facility. Patient was accepted to [facility] for transfer, but hospital administration denied her transfer due to complexity (discussed with patient who is aware)
Physical Exam
General: Obese, no acute distress
HEENT: Normocephalic, Atraumatic, EOMI, MMM
Respiratory: Clear to Auscultation bilaterally
Cardiac: Normal S1/S2, Regular Rate and Rhythm
GI: Soft, +GJ tube, Nontender, Nondistended, Normal Bowel Sounds
MSK: Tenderness to palpation of the left posterolateral lateral ribs
Extremities: No Clubbing, Cyanosis, or Edema
Neuro: Nonfocal/Grossly Intact
Anticipated Discharge: > 48 hours
Subjective/Interval History
-
Date of Service: December 19, 2023
Patient continues to be frustrated and upset with her dystonic reactions.
Objective Data
-
Vital Signs:
Vital Signs
Temp Pulse Resp BP Pulse Ox
97.8 F 103 16 99/66 95
12/19/23 07:39 12/19/23 08:24 12/19/23 08:24 12/19/23 04:00 12/19/23 08:24
I&O
12/18/23 12/19/23 12/20/23
06:59 06:59 06:59
Intake Total 580 / 580
Output Total 1625 / 1625 1540 / 1540
Balance -1625 / -1625 -960 / -960
[2023-12-19] MEDS: GASTROCROM 300 MG PO ×4 (09:53→21:10)
[2023-12-19] MEDS: SUBUTEX 2 MG SL ×4 (09:53→21:14)
[2023-12-19] MEDS: LOVENOX 90 MG SC ×2 (09:54→21:11)
[2023-12-19] MEDS: LIDOCAINE 4% PATCH 1 PATCH TOPICAL (09:55)
[2023-12-19] MEDS: HYDREA 500 MG PO ×2 (09:55→21:13)
[2023-12-19] MEDS: MIRALAX 17 GRAMS TUBE (09:56)
[2023-12-19] MEDS: DELTASONE 10 MG TUBE ×2 (09:56→21:15)
[2023-12-19] MEDS: COLACE 100 MG PO ×2 (09:57→21:14)
[2023-12-19] MEDS: CLARITIN 10 MG TUBE (09:57)
[2023-12-19] MEDS: INDERAL 10 MG TUBE ×3 (09:57→21:13)
[2023-12-19] MEDS: ZADITOR 1 DROP BOTH EYES ×2 (09:58→21:18)
[2023-12-19] MEDS: PEPCID 40 MG IV ×2 (09:59→21:13)
[2023-12-19] MEDS: LANTUS 0.1 UNITS SC (09:59)
[2023-12-19] MEDS: NSS (PRESERVATIVE FREE) 6 ML IV ×2 (10:00→21:12)
[2023-12-19 10:01] LABS: Glucose - Point of Care 83 mg/dl (70-99)
[2023-12-19] MEDS: NON-FORMULARY ITEM 1 UNIT PO ×2 (10:01→21:16)
[2023-12-19] MEDS: NON-FORMULARY ITEM 1 MG PO ×2 (10:02→21:15)
[2023-12-19] MEDS: DESENEX/MITRAZOL/ZEASORB 1 APPLIC TOPICAL ×2 (10:03→21:17)
[2023-12-19] MEDS: VITAMIN B1 100 MG TUBE (10:14)
[2023-12-19] MEDS: NON-FORMULARY ITEM NASAL (10:15)
[2023-12-19] MEDS: NON-FORMULARY ITEM PO (10:15)
[2023-12-19] MEDS: ZOFRAN 4 MG IV ×2 (10:29→17:08)
[2023-12-19] MEDS: FLUSH (NSS) 2 FLUSH IV (10:29)
[2023-12-19] MEDS: NOVOLOG FLEXPEN 3 UNITS SC ×3 (11:47→17:58)
[2023-12-19] MEDS: NOVOLOG FLEXPEN-LOW RESISTANCE SC ×3 (11:48→17:59)
[2023-12-19] MEDS: BENADRYL 50.5 MG IV ×3 (12:45→21:18)
[2023-12-19] MEDS: BENADRYL 100 MG IV (13:02)
[2023-12-19 13:23] LABS: Glucose - Point of Care 116 mg/dl (70-99)
[2023-12-19] MEDS: NON-FORMULARY ITEM 200 MG PO (14:52)
[2023-12-19] MEDS: SINEMET 25-100 2 TABLET TUBE ×2 (14:52→17:58)
--- NOTE | 2023-12-19 15:05 | CM ---
Patient with Hx Mast Cell Activation Syndrome, dystonia/movement disorder, chronic pain syndrome, gastroparesis with PEG with Dx Gram-negative bacteremia due to chronic infected PICC line. O2 2L. IV Benadryl gtt with taper - last dose 12/25/23. PT
& OT recommend . Medsitter.
Spoke with Roslyn Ferreira, College Athletic Director [employer] [facility] [employer] ([place] [phone]); Christie at [facility] has been informed that [place] has authorized 30 days of skilled RN services, and based on that [facility] skilled nurses are in place for
d/c. She is still working on caregiver agency for the patient and will see if [facility] is available to supply the caregivers also.
Spoke with Christie [facility] ([place] [phone], fax [phone]); she confirms 2 nurses were interested in oil heaterman contract and she only has 1 nurse that is still interested in a month assignment. Informed her that it is undecided if
patient will be going home with any IV meds requiring nurse for administration and expect to know more about her d/c meds next week. She will be setting up Meet & Greet Onsite visit for the nurse to meet Mary - informed her that CM will also
attend. [facility] may be able to supply a caregiver also and Cookie at [facility] is the contact for that---> left message for Cookie to contact Roslyn at [place] re; approval of caregiver services.
Met with patient who stated she had spoken with Christie at [facility] and was aware of the Meet & Greet visit for next week with the nurse.
Patient says she does not think her apartment could be available any sooner than 01/09- asked her to double check if there is any flexibility on the date. Mary says her father has not put down the deposit for the apartment yet- encouraged her to
finalize the apartment lease.
Mary asked me to ask Dr Kirk if she could be discharged on IV Pepcid, IV Zofran, IV Benadryl 'rescue med' and IV fluids that she said she had back in 2019 (?). JOJO told her MD would be speaking to her at some point prior to d/c about her d/c
meds and agreed to relay message to MD---> sent to Dr Kirk.
Plan ongoing efforts for accepting agency for skilled nurse shift assignments/PT/OT and Caregiver vs VN for SN (intermittent visits)/PT/OT and Caregiver, once MD decided on final meds.
Plan discharge to apartment with VN & Caregiver agency, once final d/c meds are known.
--- NOTE | 2023-12-19 15:57 | CM ---
Patient with Hx Mast Cell Activation Syndrome, dystonia/movement disorder, chronic pain syndrome, gastroparesis with PEG with Dx Gram-negative bacteremia due to chronic infected PICC line. O2 2L. IV Benadryl gtt with taper - last dose 12/25/23. PT
& OT recommend . Medsitter.
Spoke with Roslyn Ferreira, Development Educator [facility] [employer] ([place] [phone]); Christie at [facility] has been informed that [employer] has authorized 30 days of skilled RN services, and based on that [facility] skilled nurses are in place for
d/c. She is still working on caregiver agency for the patient and will see if [facility] is available to supply the caregivers also.
Spoke with Christie [facility] ([place] [phone], fax [phone]); she confirms 2 nurses were interested in a jail contract and she only has 1 nurse that is still interested in a month assignment. Informed her that it is undecided if
patient will be going home with any IV meds requiring nurse jail, and expect to know more about her d/c meds next week. She will be setting up Meet & Greet Onsite visit for the nurse to meet Mary - informed her that CM will also attend.
[facility] may be able to supply a caregiver also and Cookie at [facility] is the contact for that---> left message for Cookie to contact Roslyn at [employer] re; approval of caregiver services.
Met with patient who stated she had spoken with Christie at [facility] and was aware of the Meet & Greet visit for next week with the nurse.
Patient says she does not think her apartment could be available any sooner than 01/09- asked her to double check if there is any flexibility on the date. Mary says her father has not put down the deposit for the apartment yet- encouraged her to
finalize the apartment lease.
Mary asked me to ask Dr Kirk if she could be discharged on IV Pepcid, IV Zofran, IV Benadryl 'rescue med' and IV fluids that she said she had back in 2019 (?). JOJO told her MD would be speaking to her at some point prior to d/c about her d/c
meds and agreed to relay message to MD---> sent to Dr Kirk.
Plan follow up with [facility] re; home skilled nurse needs once MD decides if patient will need any IV prn meds at d/c.
Plan contact [facility] if patient needs any IV prn meds at d/c.
Plan ongoing efforts for home skilled nurse shift assignments/PT/OT and Caregiver vs VN for SN (intermittent visits)/PT/OT and Caregiver, once MD decided on final meds.
Plan discharge to apartment with VN & Caregiver agency, and possibly [facility].
--- NOTE | 2023-12-19 16:25 | PTCARENOTE ---
Continuous benadryl drip at 2mg/hr as per MD order at 1300. Patient called RN in room at 4 pm with dystonic episode. Benadryl piggy pack 25 mg infusing. Sublingual ativan given. Respiratory therapist to room for tx. Ice packs and repositioning
for comfort. Emotional support provided. Heart rate 140-150's. Spo2 99% 2L O2.
[2023-12-19] MEDS: ATIVAN 1 MG IV (17:00)
[2023-12-19] MEDS: NSS (PRESERVATIVE FREE) 0.5 ML IV (17:00)
[2023-12-19] MEDS: ZYRTEC 10 MG TUBE ×2 (17:23→21:15)
[2023-12-19 17:36] LABS: Glucose - Point of Care 123 mg/dl (70-99)
--- NOTE | 2023-12-19 18:00 | PTCARENOTE ---
Notified Dr. Willoughby of prolonged dystonic episode. Order obtained for one time IV ativan order. Patient upset that she could not have more benadryl. Patient tearful and extremely upset. Patient states 'Why can't the doctors give me what I need to
feel better? Ativan does not help me it only makes me tired'.
[2023-12-19] MEDS: FEOSOL 325 MG PO (21:15)
[2023-12-19 21:48] LABS: Glucose - Point of Care 150 mg/dl (70-99)
[2023-12-20] MEDS: ATIVAN 1 MG SL ×6 (01:13→21:07)
[2023-12-20] MEDS: BENADRYL SOLUTION 25 MG TUBE ×6 (01:14→21:07)
[2023-12-20 02:01] VITALS: BP 109/72
[2023-12-20 04:00] VITALS: BP 96/62
[2023-12-20] MEDS: SINEMET 25-100 1.5 TABLET TUBE ×2 (05:14→10:01)
[2023-12-20] MEDS: LIORESAL 10 MG TUBE ×3 (05:14→21:11)
--- NOTE | 2023-12-20 06:06 | PTCARENOTE ---
Pt able to rest overnight. LUE PICC dressing intact, lumens patent. Benadryl gtt at 2mL/hr. PRN IVPB Benadryl administered x1 for mild dystonia. Voiding via purewick. NSR/ST on tele. Call sanchez within reach.
[2023-12-20] MEDS: PULMICORT 0.5 MG INH ×2 (07:48→19:43)
[2023-12-20 08:00] VITALS: BP 108/72
[2023-12-20 08:07] LABS: Glucose - Point of Care 91 mg/dl (70-99)
--- NOTE | 2023-12-20 08:41 | W.PN.HOSP.TC ---
Today's Communication/Plan
-
Neurology consulted per father's request
Assessment / Plan
Assessment / Plan
Impression:
Gram-negative bacteremia due to chronic infected PICC line.
Fever on admission with no evidence of sepsis (tachycardia likely fever mediated)
Conditions prior to admission:
1. Mast cell activation syndrome.
2. Chronic dystonic reaction.
3. Orthostatic hypotension with postural orthostatic and
tachycardia syndrome.
4. Dopa sensitive dystonia.
5. Steroid-induced diabetes.
6. Prior history of deep venous thrombosis and pulmonary embolism.
7. Chronic pain syndrome.
8. Migraine headaches.
9. Gastroesophageal reflux disease.
10. Benzodiazepine and opiate dependence.
11. Restless legs syndrome.
12. Insomnia.
13. History of vocal cord dysfunction.
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
15. Gastroparesis.
16. 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
17. 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
Plan:
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
PICC line removed and PICC line replaced on 09/23
Repeated blood cultures negative on 09/20 but no other cultures obtained
Finished cipro on 10/06/23 (was on 750mg BID)
GJ tube in place
Replaced by interventional radiology on 09/22
Replaced by interventional radiology 11/04 due to concern leakage
HX Recurrent Anaphylaxis / Mast Cell Flare Episodes on chronic steroids
Mast Cell Activation Syndrome
DOPA-Responsive Dystonia
-follows with Dr. Lizabeth Villanueva at [facility] hematology.
- Continue Ativan
�-cont Gleevac ,steroids
�--Levalbuterol as needed, to do her eyedrops
-Continue carbidopa levodopa
-prednisone continued
-Outpatient IV Benadryl drip at 15 milligram an hour upon presentation. As discussed with primary busgirl Dr. Mora plan is to slowly taper. Decreased Benadryl drip down to 8 mg an hour on 11/30
Multiple conversations with patient almost on a daily basis in regards to goals of care including attempt to wean off Benadryl drip with possibly substitution to oral regimen to facilitate discharge as well as outpatient management. Patient has
been resistant to wean off Benadryl drip completely at this point.
11/26. Multidisciplinary meeting including psychiatry, clinical pharmacy, medicine, nursing.
Patient clinical course along with medication regimen has been reviewed.
With the goal of minimize exposure to IV medications and optimize regimen following changes implemented:
-Daily IV fluids discontinued with plan to monitor oral intake and orthostatics.
� IV Benadryl pushes have been discontinued.
� Lorazepam sublingual as needed order has been discontinued.
IV lorazepam has been discontinued
Initiated:
Benadryl 25 mg infusion through piggyback will be provided over 10 minutes for breakthrough dystonic attack.
Benadryl p.o. 25 mg will be scheduled every 4 hours.
Lorazepam sublingual 1 mg with the scheduled while awake every 4 hours.
Hydromorphone p.o. 8 mg will be continued every 6 hours as needed for severe pain along with Suboxone.
12/02.
Multidisciplinary discussion involving nursing, primary service, psychiatry, pharmacy, case management
Plan is to continue current care including intravenous Benadryl drip wean. Schedule below:
Diphenhydramine continuous infusion taper schedule Q72hr
12/18 @1300 � 8/5 @1259 � 2MG/HR
12/21 @1300 � 8/8 @1259 � 1MG/HR
12/24 @1300 � Stop infusion
Can consider increasing diphenhydramine PO up to max 300mg/day IF NEEDED. I would recommend increasing if episodes increase.
dystonia/movement disorder-patient apparently has dystonic features with her mast cell activation syndrome. I could not find in literature as a routine clinical presentation but according to patient apparently this is very unusual feature which was
noted in few other patients . She was on IV Benadryl pump at 15 mg/h at home.
-baclofen continued
-sinemet continued
-episodes with vasovagal response when trying to have a BM - start standing miralax and colace BID
Chronic pain syndrome-on high doses of narcotics (chronic opioid use with dependence) including p.o. Dilaudid and Suboxone at home. Again unclear the source of her pain.
GERD
-famotidine continued
-acipHex continued
-simethicone continued
iron def anemia
-ferrous sulfate continued
hxt of tachycardia
-EKG with sinus tachycardia
-propranolol continued
Chronic Nausea / Esophageal Dysmotility/gastroparesis
History GJ tube
�- Continue diet as tolerated.
�- Continue G-tube to gravity for chronic nausea.
�- Meds via J-tube.
-Zofran every 8 hours as needed
-Continue Pepcid
-emend continued
- PEG tube site without any signs of cellulitis. CT of the abdomen pelvis shows no subcutaneous collection around the PEG tube and it is in place.
Acute fractures of the left 6 anterolateral 6th and 7th ribs
-Suspect from recent fall on 10/03
-10/25 complains of pain on the posterolateral lower ribs
-Continue lidocaine patch, add heating packs
Steroid-Induced DM-II--
She remains on steady dose of prednisone
Blood glucose remains marginal
Monitor oral intake
Reduce Lantus and NovoLog AC
Continue serial Accu-Cheks with basal bolus protocol.
S/p fall overnight 10/03-10/04
imaging negative for bleed or fracture
Steroid-Induced Osteoporosis
Chronic Pain Syndrome secondary to the above on chronic opiates
�- Continue buprenorphine 2 mg 4 times daily , Dilaudid 8 mg as needed
�- PT / OT evaluations.
�- Follow-up with usual immigration specialist after discharge.
allergy induced asthma
chronic hypoxic respiratory failure--on O2
-albuterol continued
-budesonide continued
-cetirizine continued
-cromolyn continued
Thrush
Completed course of clotrimazole Troches for thrush
Migraine Hx
ODT Nurtec as needed
Restless leg syndrome
-Continue baclofen
History of DVT/PE
#Takes subcu Lovenox 100 mg twice daily
DNR on admission
Disposition: Discussion with primary busgirl Dr. Ethan Villanueva on 10/09. Discussed possibility of attempting weaning Benadryl drip likely could be done as outpatient. With current family social situation, unfortunately there is no options
for disposition other than home on IV infusion. Possibility of a transfer to [facility] discussed as well, although according to Dr. Villanueva hospital administration declined services due to complexity. Also discussed possibility of
transfer to tertiary center ([facility] declined in the past).
10/[address] Villanueva over the phone as well as [facility] transfer center.
Complex patient. Attempt to wean off Benadryl drip over the last 2 weeks with persistent dystonic episodes
While patient is relatively stable with her current condition, given complex clinical picture requiring multi disciplinary approach not limited to medicine, hematology, allergology, as well as neuropsychiatric assessment, patient would be better
served at a tertiary facility. Patient was accepted to [facility] for transfer, but hospital administration denied her transfer due to complexity (discussed with patient who is aware)
Updated father on phone 12/18, he is asking for a call from Dr. Kirk, on 12/21.
Total time spent to see the patient on the floor, examine the patient, review data and lab results, discuss treatment plan with patient, nursing staff around 50 minutes.
Physical Exam
General: Obese, no acute distress
HEENT: Normocephalic, Atraumatic, EOMI, MMM
Respiratory: Clear to Auscultation bilaterally
Cardiac: Normal S1/S2, Regular Rate and Rhythm
GI: Soft, +GJ tube, Nontender, Nondistended, Normal Bowel Sounds
MSK: Tenderness to palpation of the left posterolateral lateral ribs
Extremities: No Clubbing, Cyanosis, or Edema
Neuro: Nonfocal/Grossly Intact
Anticipated Discharge: > 48 hours
Subjective/Interval History
-
Date of Service: December 20, 2023
Patient and father extremely upset about her plan of care, and had continuous dystonic reactions.
Objective Data
-
Vital Signs:
Vital Signs
Temp Pulse Resp BP Pulse Ox
97.6 F 105 19 96/62 95
12/20/23 07:07 12/20/23 07:50 12/20/23 07:50 12/20/23 04:00 12/20/23 07:50
I&O
12/19/23 12/20/23 12/21/23
06:59 06:59 06:59
Intake Total 580 / 580 1435 / 1435
Output Total 1540 / 1540 1880 / 1880
Balance -960 / -960 -445 / -445
[2023-12-20] MEDS: NOVOLOG FLEXPEN-LOW RESISTANCE SC ×2 (09:58→18:00)
[2023-12-20] MEDS: MIRALAX 17 GRAMS TUBE (09:59)
[2023-12-20] MEDS: LIDOCAINE 4% PATCH 1 PATCH TOPICAL (09:59)
[2023-12-20] MEDS: GASTROCROM 300 MG PO ×4 (09:59→21:06)
[2023-12-20] MEDS: LOVENOX 90 MG SC ×2 (09:59→21:07)
[2023-12-20] MEDS: PEPCID 40 MG IV ×2 (10:00→21:09)
[2023-12-20] MEDS: INDERAL 10 MG TUBE ×3 (10:01→21:10)
[2023-12-20] MEDS: COLACE 100 MG PO ×2 (10:01→21:10)
[2023-12-20] MEDS: CLARITIN 10 MG TUBE (10:01)
[2023-12-20] MEDS: NSS (PRESERVATIVE FREE) 6 ML IV ×2 (10:02→21:09)
[2023-12-20] MEDS: VITAMIN B1 100 MG TUBE (10:02)
[2023-12-20] MEDS: SUBUTEX 2 MG SL ×4 (10:02→21:06)
[2023-12-20] MEDS: HYDREA 500 MG PO ×2 (10:03→21:11)
[2023-12-20] MEDS: NON-FORMULARY ITEM PO (10:04)
[2023-12-20] MEDS: DESENEX/MITRAZOL/ZEASORB 1 APPLIC TOPICAL ×2 (10:05→21:06)
[2023-12-20] MEDS: NON-FORMULARY ITEM NASAL (10:06)
[2023-12-20] MEDS: ZADITOR 1 DROP BOTH EYES ×2 (10:06→21:14)
[2023-12-20] MEDS: NOVOLOG FLEXPEN 3 UNITS SC ×3 (10:07→18:00)
[2023-12-20] MEDS: NON-FORMULARY ITEM 1 MG PO ×2 (10:09→21:12)
[2023-12-20] MEDS: NON-FORMULARY ITEM 1 UNIT PO ×2 (10:09→21:13)
[2023-12-20] MEDS: LANTUS 0.1 UNITS SC (10:22)
[2023-12-20] MEDS: DELTASONE 10 MG TUBE ×2 (10:22→21:11)
[2023-12-20 12:00] VITALS: BP 112/63
[2023-12-20] MEDS: BENADRYL 50.5 MG IV ×3 (12:23→21:15)
[2023-12-20] MEDS: DUONEB 3 ML INH ×2 (12:23→19:44)
[2023-12-20] MEDS: ADRENALIN 0.3 MG IM (12:25)
[2023-12-20] MEDS: ATIVAN 1 MG IV (13:14)
[2023-12-20 13:41] LABS: Glucose - Point of Care 140 mg/dl (70-99)
[2023-12-20] MEDS: NOVOLOG FLEXPEN-LOW RESISTANCE 300 UNITS SC (14:02)
[2023-12-20] MEDS: SINEMET 25-100 2 TABLET TUBE ×2 (14:03→18:12)
[2023-12-20] MEDS: NSS (PRESERVATIVE FREE) 0.5 ML IV (14:03)
[2023-12-20] MEDS: BENADRYL 100 MG IV (14:04)
[2023-12-20] MEDS: NON-FORMULARY ITEM 100 MG PO (14:08)
[2023-12-20 16:00] VITALS: BP 123/72
[2023-12-20] MEDS: ZOFRAN 4 MG IV (16:50)
[2023-12-20] MEDS: ZYRTEC 10 MG TUBE ×2 (16:51→21:10)
[2023-12-20 17:02] LABS: Glucose - Point of Care 137 mg/dl (70-99)
--- NOTE | 2023-12-20 19:48 | PTCARENOTE ---
day shift note. pt had episode of dystonia with throat tightness this am. benadryl, epi, and resp treatment given as ordered and one time dose iv ativan given with gradual relief of symptoms. continuous iv rip benadryl maintained at 2 mg/hr. pt
medicated again this afternoon with additional prn dose of iv benadryl as she reported feeling of impending dystonic episode. zofran also given x 2 for c/o nausea.report given to recieving rn.
[2023-12-20 20:00] VITALS: BP 96/81
[2023-12-20] MEDS: FEOSOL 325 MG PO (21:10)
[2023-12-20 21:41] LABS: Glucose - Point of Care 109 mg/dl (70-99)
[2023-12-21] VITALS (7 sets, daily range): BP systolic 97–125; BP diastolic 56–91
[2023-12-21] MEDS: BENADRYL SOLUTION 25 MG TUBE ×6 (01:03→21:25)
[2023-12-21] MEDS: ATIVAN 1 MG SL ×6 (01:03→19:39)
[2023-12-21] MEDS: BENADRYL 50.5 MG IV ×4 (04:39→21:32)
[2023-12-21] MEDS: ZOFRAN 4 MG IV ×2 (04:41→11:06)
[2023-12-21] MEDS: LIORESAL 10 MG TUBE ×3 (05:02→21:20)
[2023-12-21] MEDS: SINEMET 25-100 1.5 TABLET TUBE ×2 (05:02→09:16)
--- NOTE | 2023-12-21 06:31 | PTCARENOTE ---
Benadryl gtt continues @ 2mL/hr. PRN IVPB Benadryl administered for dystonia. Voiding via purewick. zofran for nausea per request. NSR/ST on tele. Call sanchez within reach. Pt appreciative of care.
[2023-12-21 07:22] LABS: Glucose - Point of Care 89 mg/dl (70-99)
[2023-12-21] MEDS: PULMICORT 0.5 MG INH ×2 (07:23→19:47)
[2023-12-21] MEDS: NOVOLOG FLEXPEN-LOW RESISTANCE SC ×3 (07:23→17:10)
--- NOTE | 2023-12-21 08:37 | W.PN.HOSP.TC ---
Today's Communication/Plan
-
Discussed with podiatry, recommend outpatient follow-up for possible first great toe toenail
Patient declines Keflex, will order wound care and Bactroban
Continue supportive care
Assessment / Plan
Assessment / Plan
Impression:
Gram-negative bacteremia due to chronic infected PICC line.
Fever on admission with no evidence of sepsis (tachycardia likely fever mediated)
Conditions prior to admission:
1. Mast cell activation syndrome.
2. Chronic dystonic reaction.
3. Orthostatic hypotension with postural orthostatic and
tachycardia syndrome.
4. Dopa sensitive dystonia.
5. Steroid-induced diabetes.
6. Prior history of deep venous thrombosis and pulmonary embolism.
7. Chronic pain syndrome.
8. Migraine headaches.
9. Gastroesophageal reflux disease.
10. Benzodiazepine and opiate dependence.
11. Restless legs syndrome.
12. Insomnia.
13. History of vocal cord dysfunction.
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
15. Gastroparesis.
16. 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
17. 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
Plan:
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
PICC line removed and PICC line replaced on 09/23
Repeated blood cultures negative on 09/20 but no other cultures obtained
Finished cipro on 10/06/23 (was on 750mg BID)
GJ tube in place
Replaced by interventional radiology on 09/22
Replaced by interventional radiology 11/04 due to concern leakage
HX Recurrent Anaphylaxis / Mast Cell Flare Episodes on chronic steroids
Mast Cell Activation Syndrome
DOPA-Responsive Dystonia
-follows with Dr. Lizabeth Villanueva at [facility] hematology.
- Continue Ativan
�-cont Gleevac ,steroids
�--Levalbuterol as needed, to do her eyedrops
-Continue carbidopa levodopa
-prednisone continued
-Outpatient IV Benadryl drip at 15 milligram an hour upon presentation. As discussed with primary warehouse worker Dr. Mora plan is to slowly taper. Decreased Benadryl drip down to 8 mg an hour on 11/30
Multiple conversations with patient almost on a daily basis in regards to goals of care including attempt to wean off Benadryl drip with possibly substitution to oral regimen to facilitate discharge as well as outpatient management. Patient has
been resistant to wean off Benadryl drip completely at this point.
11/26. Multidisciplinary meeting including psychiatry, clinical pharmacy, medicine, nursing.
Patient clinical course along with medication regimen has been reviewed.
With the goal of minimize exposure to IV medications and optimize regimen following changes implemented:
-Daily IV fluids discontinued with plan to monitor oral intake and orthostatics.
� IV Benadryl pushes have been discontinued.
� Lorazepam sublingual as needed order has been discontinued.
IV lorazepam has been discontinued
Initiated:
Benadryl 25 mg infusion through piggyback will be provided over 10 minutes for breakthrough dystonic attack.
Benadryl p.o. 25 mg will be scheduled every 4 hours.
Lorazepam sublingual 1 mg with the scheduled while awake every 4 hours.
Hydromorphone p.o. 8 mg will be continued every 6 hours as needed for severe pain along with Suboxone.
12/02.
Multidisciplinary discussion involving nursing, primary service, psychiatry, pharmacy, case management
Plan is to continue current care including intravenous Benadryl drip wean. Schedule below:
Diphenhydramine continuous infusion taper schedule Q72hr
12/18 @1300 � 8/5 @1259 � 2MG/HR
12/21 @1300 � 8/8 @1259 � 1MG/HR
12/24 @1300 � Stop infusion
Can consider increasing diphenhydramine PO up to max 300mg/day IF NEEDED. I would recommend increasing if episodes increase.
dystonia/movement disorder-patient apparently has dystonic features with her mast cell activation syndrome. I could not find in literature as a routine clinical presentation but according to patient apparently this is very unusual feature which was
noted in few other patients . She was on IV Benadryl pump at 15 mg/h at home.
-baclofen continued
-sinemet continued
-episodes with vasovagal response when trying to have a BM - start standing miralax and colace BID
Chronic pain syndrome-on high doses of narcotics (chronic opioid use with dependence) including p.o. Dilaudid and Suboxone at home. Again unclear the source of her pain.
GERD
-famotidine continued
-acipHex continued
-simethicone continued
iron def anemia
-ferrous sulfate continued
hxt of tachycardia
-EKG with sinus tachycardia
-propranolol continued
Chronic Nausea / Esophageal Dysmotility/gastroparesis
History GJ tube
�- Continue diet as tolerated.
�- Continue G-tube to gravity for chronic nausea.
�- Meds via J-tube.
-Zofran every 8 hours as needed
-Continue Pepcid
-emend continued
- PEG tube site without any signs of cellulitis. CT of the abdomen pelvis shows no subcutaneous collection around the PEG tube and it is in place.
Acute fractures of the left 6 anterolateral 6th and 7th ribs
-Suspect from recent fall on 10/03
-10/25 complains of pain on the posterolateral lower ribs
-Continue lidocaine patch, add heating packs
Steroid-Induced DM-II--
She remains on steady dose of prednisone
Blood glucose remains marginal
Monitor oral intake
Reduce Lantus and NovoLog AC
Continue serial Accu-Cheks with basal bolus protocol.
S/p fall overnight 10/03-10/04
imaging negative for bleed or fracture
Steroid-Induced Osteoporosis
Chronic Pain Syndrome secondary to the above on chronic opiates
�- Continue buprenorphine 2 mg 4 times daily , Dilaudid 8 mg as needed
�- PT / OT evaluations.
�- Follow-up with usual pc support specialist after discharge.
allergy induced asthma
chronic hypoxic respiratory failure--on O2
-albuterol continued
-budesonide continued
-cetirizine continued
-cromolyn continued
Thrush
Completed course of clotrimazole Troches for thrush
Migraine Hx
ODT Nurtec as needed
Restless leg syndrome
-Continue baclofen
History of DVT/PE
#Takes subcu Lovenox 100 mg twice daily
Left great toe inflammation/edema, likely due to ingrown toenail
Discussed with podiatry, recommend outpatient follow-up for possible first great toe toenail
Patient declines Keflex, will order wound care and Bactroban
DNR on admission
Disposition: Discussion with primary warehouse worker Dr. Ethan Villanueva on 10/09. Discussed possibility of attempting weaning Benadryl drip likely could be done as outpatient. With current family social situation, unfortunately there is no options
for disposition other than home on IV infusion. Possibility of a transfer to [facility] discussed as well, although according to Dr. Villanueva hospital administration declined services due to complexity. Also discussed possibility of
transfer to tertiary center ([facility] declined in the past).
10/[address] Villanueva over the phone as well as [facility] transfer center.
Complex patient. Attempt to wean off Benadryl drip over the last 2 weeks with persistent dystonic episodes
While patient is relatively stable with her current condition, given complex clinical picture requiring multi disciplinary approach not limited to medicine, hematology, allergology, as well as neuropsychiatric assessment, patient would be better
served at a tertiary facility. Patient was accepted to [facility] for transfer, but hospital administration denied her transfer due to complexity (discussed with patient who is aware)
Updated father on phone 12/18, he is asking for a call from Dr. Kirk, on 12/21.
Total time spent to see the patient on the floor, examine the patient, review data and lab results, discuss treatment plan with patient, nursing staff around 51 minutes.
Physical Exam
General: Obese, no acute distress
HEENT: Normocephalic, Atraumatic, EOMI, MMM
Respiratory: Clear to Auscultation bilaterally
Cardiac: Normal S1/S2, Regular Rate and Rhythm
GI: Soft, +GJ tube, Nontender, Nondistended, Normal Bowel Sounds
MSK: Tenderness to palpation of the left posterolateral lateral ribs
Extremities: No Clubbing, Cyanosis, or Edema
Neuro: Nonfocal/Grossly Intact
Anticipated Discharge: > 48 hours
Subjective/Interval History
-
Date of Service: December 21, 2023
Continues to have intermittent dystonic reactions. Now also having pain and swelling of her first left toe.
Objective Data
-
Vital Signs:
Vital Signs
Temp Pulse Resp BP Pulse Ox
98.0 F 103 19 97/56 96
12/21/23 07:24 12/21/23 07:25 12/21/23 07:25 12/21/23 04:00 12/21/23 07:25
I&O
12/20/23 12/21/23 12/22/23
06:59 06:59 06:59
Intake Total 1435 / 1435 550 / 550
Output Total 1880 / 1880 1600 / 1600
Balance -445 / -445 -1050 / -1050
[2023-12-21] MEDS: GASTROCROM 300 MG PO ×4 (09:11→21:20)
[2023-12-21] MEDS: LOVENOX 90 MG SC ×2 (09:12→19:43)
[2023-12-21] MEDS: LIDOCAINE 4% PATCH 1 PATCH TOPICAL (09:13)
[2023-12-21] MEDS: MIRALAX 17 GRAMS TUBE (09:13)
[2023-12-21] MEDS: SUBUTEX 2 MG SL ×4 (09:14→21:21)
[2023-12-21] MEDS: HYDREA 500 MG PO ×2 (09:15→19:40)
[2023-12-21] MEDS: DELTASONE 10 MG TUBE ×2 (09:15→19:39)
[2023-12-21] MEDS: CLARITIN 10 MG TUBE (09:16)
[2023-12-21] MEDS: COLACE 100 MG PO ×2 (09:16→19:39)
[2023-12-21] MEDS: INDERAL 10 MG TUBE ×3 (09:17→21:20)
[2023-12-21] MEDS: VITAMIN B1 100 MG TUBE (09:17)
[2023-12-21] MEDS: NOVOLOG FLEXPEN SC (09:19)
[2023-12-21] MEDS: NON-FORMULARY ITEM PO (09:19)
[2023-12-21] MEDS: DESENEX/MITRAZOL/ZEASORB 1 APPLIC TOPICAL ×2 (09:19→19:45)
[2023-12-21] MEDS: NON-FORMULARY ITEM 1 UNIT PO ×2 (09:20→19:46)
[2023-12-21] MEDS: NON-FORMULARY ITEM 1 MG PO ×2 (09:20→19:44)
[2023-12-21] MEDS: NON-FORMULARY ITEM NASAL (09:21)
[2023-12-21] MEDS: LANTUS 0.1 UNITS SC (09:21)
[2023-12-21] MEDS: PEPCID 40 MG IV ×2 (09:22→19:40)
[2023-12-21] MEDS: NSS (PRESERVATIVE FREE) 6 ML IV ×2 (09:22→19:40)
[2023-12-21] MEDS: ZADITOR 1 DROP BOTH EYES ×2 (09:23→21:19)
--- NOTE | 2023-12-21 09:50 | PTCARENOTE ---
Assumed care of pt from night RN, pt AAOx3, makes needs known. Sleepy this morning, requesting to sleep more after taking meds. Pt did not want to eat breakfast, scheduled Novolog held. Will continue to monitor through shift.
[2023-12-21] MEDS: DUONEB 3 ML INH ×2 (11:13→19:48)
[2023-12-21] MEDS: ATIVAN 1 MG IV (12:26)
[2023-12-21] MEDS: NSS (PRESERVATIVE FREE) 0.5 ML IV (12:27)
[2023-12-21 12:39] LABS: Glucose - Point of Care 131 mg/dl (70-99)
--- NOTE | 2023-12-21 13:30 | PTCARENOTE ---
Pt had a dystonic episode lasting approx 45 minutes, prn Benadryl & Duoneb administered. Pt requested something extra as those meds did not help end the episode. 1x dose Ativan 1mg IV ordered and administered. Pt c/o about the Ativan going in too
slow, educated pt that it has to be pushed slowly over a certain amount of time, verbalized understanding. Emotional support provided. Pt reports episode over now and is currently getting washed up before ordering lunch. Will continue to monitor
through shift.
[2023-12-21] MEDS: SINEMET 25-100 2 TABLET TUBE ×2 (14:05→17:06)
[2023-12-21] MEDS: NOVOLOG FLEXPEN 3 UNITS SC ×2 (14:06→17:18)
[2023-12-21] MEDS: BENADRYL 100 MG IV (14:09)
[2023-12-21] MEDS: NON-FORMULARY ITEM 200 MG PO (14:09)
--- NOTE | 2023-12-21 14:19 | PTCARENOTE ---
Pt's L great toe noted to be red and inflamed. Per pt she usually sees a parimutuel ticket seller but hasn't since she's been in the hospital. Dr. Willoughby notified and Podiatry Cx ordered. Pt updated.
--- NOTE | 2023-12-21 15:58 | CHAP ---
Mary was tired after a difficult day, but shared news of progress made during the week, and also concerns that she has. We lifted all this up to God in prayer. Emotional and spiritual support provided.
[2023-12-21] MEDS: ZYRTEC 10 MG TUBE ×2 (17:07→21:20)
[2023-12-21] MEDS: BACTROBAN 2% OINTMENT 1 APPLIC TOPICAL ×2 (17:07→21:26)
[2023-12-21 17:13] LABS: Glucose - Point of Care 106 mg/dl (70-99)
[2023-12-21] MEDS: FEOSOL 325 MG PO (21:20)
[2023-12-21 22:08] LABS: Glucose - Point of Care 141 mg/dl (70-99)
[2023-12-22] VITALS: BP 122/81
[2023-12-22] MEDS: ATIVAN 1 MG SL ×6 (00:57→19:44)
[2023-12-22] MEDS: ZOFRAN 4 MG IV ×3 (00:57→17:55)
[2023-12-22] MEDS: BENADRYL SOLUTION 25 MG TUBE ×6 (01:00→21:14)
--- NOTE | 2023-12-22 01:04 | PTCARENOTE ---
Pt oriented, anxious. Requests dose of IV benadryl for onset of dystonic episode. Dose provided with relief. Pt requests zofran for nausea. Dose provided, see MAR. Call sanchez within reach.
[2023-12-22 04:00] VITALS: BP 105/67
[2023-12-22] MEDS: SINEMET 25-100 1.5 TABLET TUBE ×2 (05:06→09:10)
[2023-12-22] MEDS: LIORESAL 10 MG TUBE ×3 (05:06→21:13)
[2023-12-22] MEDS: PULMICORT 0.5 MG INH ×2 (07:15→19:24)
[2023-12-22 08:00] VITALS: BP 112/72
[2023-12-22] MEDS: NOVOLOG FLEXPEN-LOW RESISTANCE SC ×3 (08:49→17:24)
[2023-12-22] MEDS: NOVOLOG FLEXPEN SC (08:49)
[2023-12-22] MEDS: LANTUS 0.1 UNITS SC (08:49)
[2023-12-22] MEDS: MIRALAX 17 GRAMS TUBE (08:50)
[2023-12-22] MEDS: GASTROCROM 300 MG PO ×4 (08:51→21:14)
[2023-12-22] MEDS: INDERAL 10 MG TUBE ×3 (08:52→21:13)
[2023-12-22] MEDS: CLARITIN 10 MG TUBE (08:52)
[2023-12-22] MEDS: DELTASONE 10 MG TUBE ×2 (08:52→19:53)
[2023-12-22] MEDS: SUBUTEX 2 MG SL ×4 (08:53→21:14)
[2023-12-22] MEDS: COLACE 100 MG PO ×2 (08:53→19:53)
[2023-12-22] MEDS: BACTROBAN 2% OINTMENT 1 APPLIC TOPICAL ×3 (08:54→21:09)
[2023-12-22] MEDS: VITAMIN B1 100 MG TUBE (08:54)
[2023-12-22] MEDS: HYDREA 500 MG PO ×2 (08:54→19:54)
[2023-12-22] MEDS: LIDOCAINE 4% PATCH 1 PATCH TOPICAL (08:55)
[2023-12-22] MEDS: LOVENOX 90 MG SC ×2 (08:55→19:54)
[2023-12-22] MEDS: NON-FORMULARY ITEM 80 MG PO (08:56)
[2023-12-22] MEDS: PEPCID 40 MG IV ×2 (08:58→19:49)
[2023-12-22] MEDS: NSS (PRESERVATIVE FREE) 6 ML IV ×2 (08:58→19:49)
[2023-12-22 08:59] LABS: Glucose - Point of Care 110 mg/dl (70-99)
[2023-12-22] MEDS: NON-FORMULARY ITEM 1 MG PO ×2 (08:59→19:59)
[2023-12-22] MEDS: DESENEX/MITRAZOL/ZEASORB 1 APPLIC TOPICAL ×2 (08:59→19:58)
[2023-12-22] MEDS: NON-FORMULARY ITEM 1 UNIT PO ×2 (09:02→21:08)
[2023-12-22] MEDS: NON-FORMULARY ITEM NASAL (09:02)
[2023-12-22] MEDS: ZADITOR 1 DROP BOTH EYES ×2 (09:03→20:00)
[2023-12-22] MEDS: BENADRYL 50.5 MG IV ×2 (09:08→19:46)
--- NOTE | 2023-12-22 10:30 | PTCARENOTE ---
Assumed care of patient this morning. She is aaox3. Pt was sleeping upon entry to room. Patient woken up and shortly after, pt felt dystonic episode coming on by feeling of an 'aura.' Pt also c/o of feeling nauseous. PRN Zofran and IVPB Benadryl
given. Pt's HR did elevate slightly to 90s-100s and pt did have some shaking but episode only lasted approx 20 minutes. She was able to speak during the episode. Pt denied any pain and she had no complaints. Assessment, care and VS as charted.
[2023-12-22] MEDS: NOVOLOG FLEXPEN 3 UNITS SC ×2 (11:29→17:47)
[2023-12-22 11:31] LABS: Glucose - Point of Care 101 mg/dl (70-99)
[2023-12-22 12:00] VITALS: BP 116/88
--- NOTE | 2023-12-22 12:43 | WOUNDNOTE ---
JESUS RN NOTE: Patient admitted with sepsis, see chart for PMH. Asked to see patient for L great ingrown toe nail. Podiatry consulted, mupirocin on order. L great toe around lateral nail bed pink, no drainage, patient reports it looks better. No other
wounds on body, patient hoping to be discharged soon and will follow up with Podiatry as an outpatient. Mupirocin and dry gauze applied to L great toe, will update wound care and sign off.
[2023-12-22] MEDS: BENADRYL 100 MG IV (13:35)
[2023-12-22] MEDS: SINEMET 25-100 2 TABLET TUBE ×2 (13:36→17:47)
[2023-12-22] MEDS: NON-FORMULARY ITEM 200 MG PO (13:36)
--- NOTE | 2023-12-22 14:38 | CM ---
Patient with Hx Mast Cell Activation Syndrome, dystonia/movement disorder, chronic pain syndrome, gastroparesis with Dx Gram-negative bacteremia due to chronic infected PICC line. O2 2L. IV Benadryl gtt with taper- currently dose 1mg/hr. PT & OT
recommend HH.
Met with patient and SHARMILA Mckeon from [facility] for 30 minute meeting; patient and nurse from [facility]. Linda offers availability 8a-8p Mon-Sat and informed patient what she would be able to assist with PO meds. Patient relayed how she
would like nurse to assist her at home. The new apartment at [facility] will be in an elevator building with no stairs and has a gym that patient says she would like to use. Mary says she plans on having food delivery and she may want to assist
with preparing her meals. Mary reiterates that her apartment is available on 01/09 and will not be ready before that day, due to renovations that are being made. The patient and the [facility] nurse agreed that they would like to work with each
other.
Spoke with Christie [facility] (ph [phone], fax [phone]); informed her that her nurse Linda and patient had a successful meeting and both indicated they want to work together. Christie was made aware of Linda's preferred schedule
which will leave some uncovered skilled nurse hours. She will speak with Roslyn about how to cover the other approved hours and continue to look for a non-skilled caregiver.
Plan follow up with [facility] re; caregiver and home skilled nurse needs once MD decides if patient will need any IV prn meds at d/c.
Plan contact [facility] if patient needs any IV prn meds at d/c.
Plan discharge to apartment with [facility], and possibly [facility].
[2023-12-22 16:00] VITALS: BP 126/83
--- NOTE | 2023-12-22 16:15 | W.PN.HOSP.TC ---
Today's Communication/Plan
-
Continue Benadryl taper
Ongoing disposition efforts.
Assessment / Plan
Assessment / Plan
Impression:
Gram-negative bacteremia due to chronic infected PICC line.
Fever on admission with no evidence of sepsis (tachycardia likely fever mediated)
Conditions prior to admission:
1. Mast cell activation syndrome.
2. Chronic dystonic reaction.
3. Orthostatic hypotension with postural orthostatic and
tachycardia syndrome.
4. Dopa sensitive dystonia.
5. Steroid-induced diabetes.
6. Prior history of deep venous thrombosis and pulmonary embolism.
7. Chronic pain syndrome.
8. Migraine headaches.
9. Gastroesophageal reflux disease.
10. Benzodiazepine and opiate dependence.
11. Restless legs syndrome.
12. Insomnia.
13. History of vocal cord dysfunction.
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
15. Gastroparesis.
16. 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
17. 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
Plan:
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
PICC line removed and PICC line replaced on 09/23
Repeated blood cultures negative on 09/20 but no other cultures obtained
Finished cipro on 10/06/23 (was on 750mg BID)
GJ tube in place
Replaced by interventional radiology on 09/22
Replaced by interventional radiology 11/04 due to concern leakage
HX Recurrent Anaphylaxis / Mast Cell Flare Episodes on chronic steroids
Mast Cell Activation Syndrome
DOPA-Responsive Dystonia
-follows with Dr. Lizabeth Villanueva at [facility] hematology.
- Continue Ativan
�-cont Gleevac ,steroids
�--Levalbuterol as needed, to do her eyedrops
-Continue carbidopa levodopa
-prednisone continued
-Outpatient IV Benadryl drip at 15 milligram an hour upon presentation. As discussed with primary mini lab operator Dr. Mora plan is to slowly taper. Decreased Benadryl drip down to 8 mg an hour on 11/30
Multiple conversations with patient almost on a daily basis in regards to goals of care including attempt to wean off Benadryl drip with possibly substitution to oral regimen to facilitate discharge as well as outpatient management. Patient has
been resistant to wean off Benadryl drip completely at this point.
11/26. Multidisciplinary meeting including psychiatry, clinical pharmacy, medicine, nursing.
Patient clinical course along with medication regimen has been reviewed.
With the goal of minimize exposure to IV medications and optimize regimen following changes implemented:
-Daily IV fluids discontinued with plan to monitor oral intake and orthostatics.
� IV Benadryl pushes have been discontinued.
� Lorazepam sublingual as needed order has been discontinued.
IV lorazepam has been discontinued
Initiated:
Benadryl 25 mg infusion through piggyback will be provided over 10 minutes for breakthrough dystonic attack.
Benadryl p.o. 25 mg will be scheduled every 4 hours.
Lorazepam sublingual 1 mg with the scheduled while awake every 4 hours.
Hydromorphone p.o. 8 mg will be continued every 6 hours as needed for severe pain along with Suboxone.
12/02.
Multidisciplinary discussion involving nursing, primary service, psychiatry, pharmacy, case management
Plan is to continue current care including intravenous Benadryl drip wean. Schedule below:
Diphenhydramine continuous infusion taper schedule Q72hr
12/18 @1300 � 8/5 @1259 � 2MG/HR
12/21 @1300 � 8/8 @1259 � 1MG/HR
12/24 @1300 � Stop infusion
Can consider increasing diphenhydramine PO up to max 300mg/day IF NEEDED. I would recommend increasing if episodes increase.
dystonia/movement disorder-patient apparently has dystonic features with her mast cell activation syndrome. I could not find in literature as a routine clinical presentation but according to patient apparently this is very unusual feature which was
noted in few other patients . She was on IV Benadryl pump at 15 mg/h at home.
-baclofen continued
-sinemet continued
-episodes with vasovagal response when trying to have a BM - start standing miralax and colace BID
Chronic pain syndrome-on high doses of narcotics (chronic opioid use with dependence) including p.o. Dilaudid and Suboxone at home. Again unclear the source of her pain.
GERD
-famotidine continued
-acipHex continued
-simethicone continued
iron def anemia
-ferrous sulfate continued
hxt of tachycardia
-EKG with sinus tachycardia
-propranolol continued
Chronic Nausea / Esophageal Dysmotility/gastroparesis
History GJ tube
�- Continue diet as tolerated.
�- Continue G-tube to gravity for chronic nausea.
�- Meds via J-tube.
-Zofran every 8 hours as needed
-Continue Pepcid
-emend continued
- PEG tube site without any signs of cellulitis. CT of the abdomen pelvis shows no subcutaneous collection around the PEG tube and it is in place.
Acute fractures of the left 6 anterolateral 6th and 7th ribs
-Suspect from recent fall on 10/03
-10/25 complains of pain on the posterolateral lower ribs
-Continue lidocaine patch, add heating packs
Steroid-Induced DM-II--
She remains on steady dose of prednisone
Blood glucose remains marginal
Monitor oral intake
Reduce Lantus and NovoLog AC
Continue serial Accu-Cheks with basal bolus protocol.
S/p fall overnight 10/03-10/04
imaging negative for bleed or fracture
Steroid-Induced Osteoporosis
Chronic Pain Syndrome secondary to the above on chronic opiates
�- Continue buprenorphine 2 mg 4 times daily , Dilaudid 8 mg as needed
�- PT / OT evaluations.
�- Follow-up with usual child care development specialist after discharge.
allergy induced asthma
chronic hypoxic respiratory failure--on O2
-albuterol continued
-budesonide continued
-cetirizine continued
-cromolyn continued
Thrush
Completed course of clotrimazole Troches for thrush
Migraine Hx
ODT Nurtec as needed
Restless leg syndrome
-Continue baclofen
History of DVT/PE
#Takes subcu Lovenox 100 mg twice daily
Left great toe inflammation/edema, likely due to ingrown toenail
Discussed with podiatry, recommend outpatient follow-up for possible first great toe toenail
Patient declines Keflex, will order wound care and Bactroban
DNR on admission
Disposition: Discussion with primary mini lab operator Dr. Ethan Villanueva on 10/09. Discussed possibility of attempting weaning Benadryl drip likely could be done as outpatient. With current family social situation, unfortunately there is no options
for disposition other than home on IV infusion. Possibility of a transfer to [facility] discussed as well, although according to Dr. Villanueva hospital administration declined services due to complexity. Also discussed possibility of
transfer to tertiary center ([facility] declined in the past).
10/[address] Villanueva over the phone as well as [facility] transfer center.
Complex patient. Attempt to wean off Benadryl drip over the last 2 weeks with persistent dystonic episodes
While patient is relatively stable with her current condition, given complex clinical picture requiring multi disciplinary approach not limited to medicine, hematology, allergology, as well as neuropsychiatric assessment, patient would be better
served at a tertiary facility. Patient was accepted to [facility] for transfer, but hospital administration denied her transfer due to complexity (discussed with patient who is aware)
Updated father on phone 12/18, he is asking for a call from Dr. Kirk, on 12/21.
Total time spent to see the patient on the floor, examine the patient, review data and lab results, discuss treatment plan with patient, nursing staff around 51 minutes.
Anticipated Discharge: > 48 hours
Subjective/Interval History
-
Date of Service: December 22, 2023
Objective Data
-
Vital Signs:
Vital Signs
Temp Pulse Resp BP Pulse Ox
98.2 F 100 18 116/88 98
12/22/23 15:00 12/22/23 15:29 12/22/23 14:00 12/22/23 12:00 12/22/23 10:14
I&O
12/21/23 12/22/23 12/23/23
06:59 06:59 06:59
Intake Total 550 / 550 580 / 580
Output Total 1600 / 1600 1950 / 1950 700 / 700
Balance -1050 / -1050 -1950 / -1950 -120 / -120
Physical Exam
-
General: Well Developed and No Apparent Distress
HEENT: Normocephalic, Atraumatic and Moist Mucous Membranes
Respiratory: Clear to Auscultation; Negative Wheezes
Cardiac: Regular Rhythm and S1/S2; Negative Murmur, Rub or Gallop
GI: Soft, Nontender, Nondistended, Normal Bowel Sounds and Peg Tube; Negative Organomegaly
Rectal: Deferred by Provider
Musculoskeletal: No Clubbing, No Cyanosis and No Edema
Skin: Negative Rash
Neuro: Nonfocal/Grossly Intact
[2023-12-22 17:30] LABS: Glucose - Point of Care 95 mg/dl (70-99)
[2023-12-22] MEDS: ZYRTEC 10 MG TUBE ×2 (17:47→21:13)
[2023-12-22] MEDS: ADRENALIN 0.3 MG IM (20:08)
--- NOTE | 2023-12-22 20:15 | PTCARENOTE ---
Pt began with sudden onset episode of dystonia and coughing. RT present at bedside to provide tx. This RN gave scheduled medications, PRN benadryl without relief. Pt began to c/o throat closing, difficulty breathing, stridor. SaO2 remained >98% on
2L, PRN epi given at pt request. Lung sounds diminished.
[2023-12-22 20:21] VITALS: BP 129/83
[2023-12-22] MEDS: FEOSOL 325 MG PO (21:14)
[2023-12-22 22:24] LABS: Glucose - Point of Care 184 mg/dl (70-99)
[2023-12-23] VITALS (8 sets, daily range): BP systolic 107–138; BP diastolic 64–84; PULSE 85–128; O2SAT 97; BMI 33.1
[2023-12-23] MEDS: ATIVAN 1 MG SL ×7 (00:20→23:57)
[2023-12-23] MEDS: ZOFRAN 4 MG IV ×4 (00:20→23:54)
[2023-12-23] MEDS: BENADRYL 50.5 MG IV ×4 (00:31→21:26)
[2023-12-23] MEDS: BENADRYL SOLUTION 25 MG TUBE ×6 (01:06→21:27)
[2023-12-23] MEDS: SINEMET 25-100 1.5 TABLET TUBE ×2 (05:00→09:39)
[2023-12-23] MEDS: LIORESAL 10 MG TUBE ×3 (05:00→21:27)
[2023-12-23] MEDS: PULMICORT 0.5 MG INH ×2 (07:32→20:38)
[2023-12-23] MEDS: NOVOLOG FLEXPEN-LOW RESISTANCE SC ×3 (09:34→17:22)
[2023-12-23] MEDS: MIRALAX TUBE (09:35)
[2023-12-23] MEDS: LOVENOX 90 MG SC ×2 (09:35→19:48)
[2023-12-23] MEDS: LIDOCAINE 4% PATCH 1 PATCH TOPICAL (09:36)
[2023-12-23] MEDS: PEPCID 40 MG IV ×2 (09:36→19:50)
[2023-12-23] MEDS: HYDREA 500 MG PO ×2 (09:37→19:49)
[2023-12-23] MEDS: CLARITIN 10 MG TUBE (09:37)
[2023-12-23] MEDS: NSS (PRESERVATIVE FREE) 6 ML IV ×2 (09:37→19:50)
[2023-12-23] MEDS: GASTROCROM 300 MG PO ×4 (09:37→21:27)
[2023-12-23] MEDS: VITAMIN B1 100 MG TUBE (09:37)
[2023-12-23] MEDS: INDERAL 10 MG TUBE ×3 (09:38→21:27)
[2023-12-23] MEDS: DELTASONE 10 MG TUBE ×2 (09:38→19:49)
[2023-12-23] MEDS: SUBUTEX 2 MG SL ×4 (09:38→21:35)
[2023-12-23] MEDS: COLACE PO ×2 (09:39→19:56)
[2023-12-23] MEDS: NON-FORMULARY ITEM 1 MG PO ×2 (09:39→19:55)
[2023-12-23] MEDS: NON-FORMULARY ITEM 1 UNIT PO ×2 (09:40→19:55)
[2023-12-23] MEDS: NON-FORMULARY ITEM 80 MG PO (09:41)
[2023-12-23] MEDS: NON-FORMULARY ITEM NASAL (09:42)
[2023-12-23] MEDS: BACTROBAN 2% OINTMENT 1 APPLIC TOPICAL ×3 (09:42→21:34)
[2023-12-23] MEDS: DESENEX/MITRAZOL/ZEASORB 1 APPLIC TOPICAL ×2 (09:42→19:56)
[2023-12-23 09:43] LABS: Glucose - Point of Care 87 mg/dl (70-99)
[2023-12-23] MEDS: ZADITOR 1 DROP BOTH EYES ×2 (09:43→19:57)
[2023-12-23] MEDS: NOVOLOG FLEXPEN SC (10:03)
[2023-12-23] MEDS: LANTUS 0.1 UNITS SC (11:44)
[2023-12-23 12:26] LABS: Glucose - Point of Care 110 mg/dl (70-99)
[2023-12-23] MEDS: NOVOLOG FLEXPEN 3 UNITS SC ×2 (13:10→17:24)
[2023-12-23] MEDS: BENADRYL 100 MG IV (13:12)
[2023-12-23] MEDS: NON-FORMULARY ITEM 200 MG PO (13:17)
[2023-12-23] MEDS: SINEMET 25-100 2 TABLET TUBE ×2 (13:18→17:23)
--- NOTE | 2023-12-23 15:46 | W.PN.HOSP.TC ---
Today's Communication/Plan
-
Benadryl drip down to 1 mg an hour.
Continue supportive care.
Continue physical therapy
Ongoing disposition efforts.
Assessment / Plan
Assessment / Plan
Impression:
Gram-negative bacteremia due to chronic infected PICC line.
Fever on admission with no evidence of sepsis (tachycardia likely fever mediated)
Conditions prior to admission:
1. Mast cell activation syndrome.
2. Chronic dystonic reaction.
3. Orthostatic hypotension with postural orthostatic and
tachycardia syndrome.
4. Dopa sensitive dystonia.
5. Steroid-induced diabetes.
6. Prior history of deep venous thrombosis and pulmonary embolism.
7. Chronic pain syndrome.
8. Migraine headaches.
9. Gastroesophageal reflux disease.
10. Benzodiazepine and opiate dependence.
11. Restless legs syndrome.
12. Insomnia.
13. History of vocal cord dysfunction.
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
15. Gastroparesis.
16. 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
17. 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
Plan:
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
PICC line removed and PICC line replaced on 09/23
Repeated blood cultures negative on 09/20 but no other cultures obtained
Finished cipro on 10/06/23 (was on 750mg BID)
GJ tube in place
Replaced by interventional radiology on 09/22
Replaced by interventional radiology 11/04 due to concern leakage
HX Recurrent Anaphylaxis / Mast Cell Flare Episodes on chronic steroids
Mast Cell Activation Syndrome
DOPA-Responsive Dystonia
-follows with Dr. Lizabeth Villanueva at [facility] hematology.
- Continue Ativan
�-cont Gleevac ,steroids
�--Levalbuterol as needed, to do her eyedrops
-Continue carbidopa levodopa
-prednisone continued
-Outpatient IV Benadryl drip at 15 milligram an hour upon presentation. As discussed with primary taxi driver Dr. Mora plan is to slowly taper. Decreased Benadryl drip down to 8 mg an hour on 11/30
Multiple conversations with patient almost on a daily basis in regards to goals of care including attempt to wean off Benadryl drip with possibly substitution to oral regimen to facilitate discharge as well as outpatient management. Patient has
been resistant to wean off Benadryl drip completely at this point.
11/26. Multidisciplinary meeting including psychiatry, clinical pharmacy, medicine, nursing.
Patient clinical course along with medication regimen has been reviewed.
With the goal of minimize exposure to IV medications and optimize regimen following changes implemented:
-Daily IV fluids discontinued with plan to monitor oral intake and orthostatics.
� IV Benadryl pushes have been discontinued.
� Lorazepam sublingual as needed order has been discontinued.
IV lorazepam has been discontinued
Initiated:
Benadryl 25 mg infusion through piggyback will be provided over 10 minutes for breakthrough dystonic attack.
Benadryl p.o. 25 mg will be scheduled every 4 hours.
Lorazepam sublingual 1 mg with the scheduled while awake every 4 hours.
Hydromorphone p.o. 8 mg will be continued every 6 hours as needed for severe pain along with Suboxone.
12/02.
Multidisciplinary discussion involving nursing, primary service, psychiatry, pharmacy, case management
Plan is to continue current care including intravenous Benadryl drip wean. Schedule below:
Diphenhydramine continuous infusion taper schedule Q72hr
12/18 @1300 � 8/ @1259 � 2MG/HR
12/21 @1300 � 8 @1259 � 1MG/HR
12/24 @1300 � Stop infusion
Can consider increasing diphenhydramine PO up to max 300mg/day IF NEEDED. I would recommend increasing if episodes increase.
dystonia/movement disorder-patient apparently has dystonic features with her mast cell activation syndrome. I could not find in literature as a routine clinical presentation but according to patient apparently this is very unusual feature which was
noted in few other patients . She was on IV Benadryl pump at 15 mg/h at home.
-baclofen continued
-sinemet continued
-episodes with vasovagal response when trying to have a BM - start standing miralax and colace BID
Chronic pain syndrome-on high doses of narcotics (chronic opioid use with dependence) including p.o. Dilaudid and Suboxone at home. Again unclear the source of her pain.
GERD
-famotidine continued
-acipHex continued
-simethicone continued
iron def anemia
-ferrous sulfate continued
hxt of tachycardia
-EKG with sinus tachycardia
-propranolol continued
Chronic Nausea / Esophageal Dysmotility/gastroparesis
History GJ tube
�- Continue diet as tolerated.
�- Continue G-tube to gravity for chronic nausea.
�- Meds via J-tube.
-Zofran every 8 hours as needed
-Continue Pepcid
-emend continued
- PEG tube site without any signs of cellulitis. CT of the abdomen pelvis shows no subcutaneous collection around the PEG tube and it is in place.
Acute fractures of the left 6 anterolateral 6th and 7th ribs
-Suspect from recent fall on 10/03
-10/25 complains of pain on the posterolateral lower ribs
-Continue lidocaine patch, add heating packs
Steroid-Induced DM-II--
She remains on steady dose of prednisone
Blood glucose remains marginal
Monitor oral intake
Reduce Lantus and NovoLog AC
Continue serial Accu-Cheks with basal bolus protocol.
S/p fall overnight 10/03-10/04
imaging negative for bleed or fracture
Steroid-Induced Osteoporosis
Chronic Pain Syndrome secondary to the above on chronic opiates
�- Continue buprenorphine 2 mg 4 times daily , Dilaudid 8 mg as needed
�- PT / OT evaluations.
�- Follow-up with usual explosive specialist after discharge.
allergy induced asthma
chronic hypoxic respiratory failure--on O2
-albuterol continued
-budesonide continued
-cetirizine continued
-cromolyn continued
Thrush
Completed course of clotrimazole Troches for thrush
Migraine Hx
ODT Nurtec as needed
Restless leg syndrome
-Continue baclofen
History of DVT/PE
#Takes subcu Lovenox 100 mg twice daily
Left great toe inflammation/edema, likely due to ingrown toenail
Discussed with podiatry, recommend outpatient follow-up for possible first great toe toenail
Patient declines Keflex, will order wound care and Bactroban
DNR on admission
Disposition: Discussion with primary taxi driver Dr. Ethan Villanueva on 10/09. Discussed possibility of attempting weaning Benadryl drip likely could be done as outpatient. With current family social situation, unfortunately there is no options
for disposition other than home on IV infusion. Possibility of a transfer to [facility] discussed as well, although according to Dr. Villanueva hospital administration declined services due to complexity. Also discussed possibility of
transfer to tertiary center ([facility] declined in the past).
10/[address] Villanueva over the phone as well as [facility] transfer center.
Complex patient. Attempt to wean off Benadryl drip over the last 2 weeks with persistent dystonic episodes
While patient is relatively stable with her current condition, given complex clinical picture requiring multi disciplinary approach not limited to medicine, hematology, allergology, as well as neuropsychiatric assessment, patient would be better
served at a tertiary facility. Patient was accepted to [facility] for transfer, but hospital administration denied her transfer due to complexity (discussed with patient who is aware)
Updated father on phone 12/18, he is asking for a call from Dr. Kirk, on 12/21.
Total time spent to see the patient on the floor, examine the patient, review data and lab results, discuss treatment plan with patient, nursing staff around 51 minutes.
Anticipated Discharge: > 48 hours
Subjective/Interval History
-
Date of Service: December 23, 2023
Objective Data
-
Vital Signs:
Vital Signs
Temp Pulse Resp BP Pulse Ox
98.2 F 85 14 113/73 97
12/23/23 11:55 12/23/23 12:00 12/23/23 12:00 12/23/23 12:00 12/23/23 12:09
I&O
12/22/23 12/23/23 12/24/23
06:59 06:59 06:59
Intake Total 580 / 580
Output Total 1949 1600 / 1600
Balance -1950 / -1950 -1020 / -1020
Physical Exam
-
General: Well Developed and No Apparent Distress
HEENT: Normocephalic, Atraumatic and Moist Mucous Membranes
Respiratory: Clear to Auscultation; Negative Wheezes
Cardiac: Regular Rhythm and S1/S2; Negative Murmur, Rub or Gallop
GI: Soft, Nontender, Nondistended, Normal Bowel Sounds and Peg Tube; Negative Organomegaly
Rectal: Deferred by Provider
Musculoskeletal: No Clubbing, No Cyanosis and No Edema
Skin: Negative Rash
Neuro: Nonfocal/Grossly Intact
[2023-12-23] MEDS: DUONEB 3 ML INH ×2 (15:48→20:38)
--- NOTE | 2023-12-23 15:50 | PTCARENOTE ---
Assumed care of patient at beginning of this shift from previous RN with benadryl infusing at 1ml/hr. Patient had required prn benadryl and zofran earlier today for patient stating, 'feeling like an episode was coming on.' She just required another
prn benadryl and zofran, with neb treatment, for dystonic episode. Patient now resting. She worked with PT/OT today, ambulating in the hallway, and sat OOB in chair for a few hours. See worklist for full assessment and vital signs; see MAR for med
administration.
[2023-12-23] MEDS: ZYRTEC 10 MG TUBE ×2 (17:23→21:27)
[2023-12-23 17:32] LABS: Glucose - Point of Care 108 mg/dl (70-99)
[2023-12-23] MEDS: FEOSOL 325 MG PO (21:27)
[2023-12-23 22:16] LABS: Glucose - Point of Care 117 mg/dl (70-99)
[2023-12-24] VITALS: BP 115/77
[2023-12-24] MEDS: BENADRYL SOLUTION 25 MG TUBE ×6 (01:09→21:22)
[2023-12-24] MEDS: BENADRYL 50.5 MG IV ×4 (01:26→18:23)
--- NOTE | 2023-12-24 01:28 | PTCARENOTE ---
Pt c/o onset of dystonic episode, requests IV benadryl. Given per MAR in addition to scheduled dose via tube. Pt c/o her body feeling cold while her face feels hot. Ice pack given at pt request. Call sanchez within reach. Pt ringing appropriately.
Medsitter in place for pt safety.
[2023-12-24 04:00] VITALS: BP 113/66
[2023-12-24] MEDS: LIORESAL 10 MG TUBE ×3 (05:24→21:25)
[2023-12-24] MEDS: ATIVAN 1 MG SL ×5 (05:24→21:07)
[2023-12-24] MEDS: SINEMET 25-100 1.5 TABLET TUBE ×2 (05:25→10:56)
[2023-12-24] MEDS: PULMICORT 0.5 MG INH ×2 (07:34→19:42)
[2023-12-24] MEDS: DUONEB 3 ML INH ×3 (07:34→19:42)
[2023-12-24 08:00] VITALS: BP 110/83
[2023-12-24 09:18] LABS: Glucose - Point of Care 81 mg/dl (70-99)
[2023-12-24] MEDS: GASTROCROM 300 MG PO ×4 (09:21→21:23)
[2023-12-24] MEDS: ZOFRAN 4 MG IV ×2 (09:21→21:44)
[2023-12-24] MEDS: FLUSH (NSS) 4 FLUSH IV (09:22)
[2023-12-24] MEDS: SUBUTEX 2 MG SL ×4 (09:30→21:24)
[2023-12-24] MEDS: NOVOLOG FLEXPEN SC (10:51)
[2023-12-24] MEDS: BACTROBAN 2% OINTMENT 1 APPLIC TOPICAL ×3 (10:52→21:22)
[2023-12-24] MEDS: NOVOLOG FLEXPEN-LOW RESISTANCE SC ×3 (10:52→18:12)
[2023-12-24] MEDS: NON-FORMULARY ITEM 80 MG PO (10:53)
[2023-12-24] MEDS: NON-FORMULARY ITEM 1 UNIT PO ×2 (10:54→21:11)
[2023-12-24] MEDS: NON-FORMULARY ITEM 1 MG PO ×2 (10:54→21:09)
[2023-12-24] MEDS: CLARITIN 10 MG TUBE (10:55)
[2023-12-24] MEDS: VITAMIN B1 100 MG TUBE (10:55)
[2023-12-24] MEDS: DELTASONE 10 MG TUBE ×2 (10:57→21:08)
[2023-12-24] MEDS: INDERAL 10 MG TUBE ×3 (10:57→21:24)
[2023-12-24] MEDS: HYDREA 500 MG PO ×2 (10:58→21:08)
[2023-12-24] MEDS: DESENEX/MITRAZOL/ZEASORB 1 APPLIC TOPICAL ×2 (10:58→21:08)
[2023-12-24] MEDS: LOVENOX 90 MG SC ×2 (10:58→21:10)
[2023-12-24] MEDS: LIDOCAINE 4% PATCH 1 PATCH TOPICAL (10:59)
[2023-12-24] MEDS: PEPCID 40 MG IV ×2 (11:00→21:12)
[2023-12-24] MEDS: NSS (PRESERVATIVE FREE) 6 ML IV ×2 (11:00→21:13)
[2023-12-24] MEDS: NON-FORMULARY ITEM NASAL (11:01)
[2023-12-24] MEDS: MIRALAX TUBE (11:01)
[2023-12-24] MEDS: ZADITOR 1 DROP BOTH EYES ×2 (11:02→21:20)
[2023-12-24] MEDS: COLACE PO ×2 (11:27→19:33)
[2023-12-24] MEDS: LANTUS 0.1 UNITS SC (11:27)
[2023-12-24 12:00] VITALS: BP 110/70
[2023-12-24 13:27] LABS: Glucose - Point of Care 102 mg/dl (70-99)
[2023-12-24] MEDS: FLUSH (NSS) 1 FLUSH IV (13:40)
[2023-12-24] MEDS: NOVOLOG FLEXPEN 3 UNITS SC ×2 (13:43→18:12)
[2023-12-24] MEDS: BENADRYL 100 MG IV (14:30)
[2023-12-24] MEDS: NON-FORMULARY ITEM 200 MG PO (14:31)
[2023-12-24] MEDS: SINEMET 25-100 2 TABLET TUBE ×2 (14:33→18:06)
--- NOTE | 2023-12-24 14:51 | CM ---
Patient with Hx Mast Cell Activation Syndrome, dystonia/movement disorder, chronic pain syndrome, gastroparesis with Dx Gram-negative bacteremia due to chronic infected PICC line. O2 2L. Last day of Benadryl 1mg/hr with plan to stop infusion
12/25/23. PT & OT recommend HH.
Received phone call from Roslyn Ferreira, [employer] [facility] [employer] (ph [phone]); she spoke with patient who informed her that her brother is her Medial POA. Patient also relayed to Roslyn that she would be able to d/c home 01/04 to go
to her parents house for a week until her apartment becomes available on 01/09, in order to pack.
Spoke with patient who says she just mentioned to Roslyn that her brother in law Miller Sellers is Medical POA, however she is still making her own medical decisions- asked her to provide document.
Patient confirms she has agreement from her parents to d/c to their house on 01/04 or later, to stay there until her apartment is available on 01/09, as long as her nurses & caregivers are in place. Their address is [address] [place] [address], [place].
Mary is aware that final d/c plans for nurses & caregivers will be able to be approved by [facility] once final d/c meds are known.
Patient provided summary of her DME:
O2 concentrator/portables, CPAP and hospital bed through [facility].
Feeding tube supplies through [facility].
[facility] for IV meds
[employer] for Adult Diapers & Incontinence Supplies (approved by [facility]).
Plan follow up with [facility] re; home skilled nurse needs once MD decides if patient will need any IV prn meds at d/c.
Plan contact [facility] if patient needs any IV prn meds at d/c.
Plan ongoing efforts for home skilled nurse shift assignments/PT/OT and Caregiver vs VN for SN (intermittent visits)/PT/OT and Caregiver, once MD decided on final meds.
Plan discharge to parents house 01/04 or apartment 01/09 with VN & Caregiver agency, and possibly [facility].
[2023-12-24 16:00] VITALS: BP 118/68
[2023-12-24] MEDS: ADRENALIN 0.3 MG IM (16:18)
[2023-12-24] MEDS: ATIVAN 1 MG IV (16:42)
[2023-12-24] MEDS: NSS (PRESERVATIVE FREE) 0.5 ML IV (16:43)
--- NOTE | 2023-12-24 17:11 | W.PN.HOSP.TC ---
Today's Communication/Plan
-
Seen during dystonic episode.
No stridor or wheezing. Send patient has been able to communicate through the episode
Was given epinephrine with concern for anaphylaxis prior to my arrival per
Continue IV Benadryl.
Provide additional dose of IV lorazepam for dystonia.
Assessment / Plan
Assessment / Plan
Impression:
Gram-negative bacteremia due to chronic infected PICC line.
Fever on admission with no evidence of sepsis (tachycardia likely fever mediated)
Conditions prior to admission:
1. Mast cell activation syndrome.
2. Chronic dystonic reaction.
3. Orthostatic hypotension with postural orthostatic and
tachycardia syndrome.
4. Dopa sensitive dystonia.
5. Steroid-induced diabetes.
6. Prior history of deep venous thrombosis and pulmonary embolism.
7. Chronic pain syndrome.
8. Migraine headaches.
9. Gastroesophageal reflux disease.
10. Benzodiazepine and opiate dependence.
11. Restless legs syndrome.
12. Insomnia.
13. History of vocal cord dysfunction.
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
15. Gastroparesis.
16. 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
17. 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
Plan:
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
PICC line removed and PICC line replaced on 09/23
Repeated blood cultures negative on 09/20 but no other cultures obtained
Finished cipro on 10/06/23 (was on 750mg BID)
GJ tube in place
Replaced by interventional radiology on 09/22
Replaced by interventional radiology 11/04 due to concern leakage
HX Recurrent Anaphylaxis / Mast Cell Flare Episodes on chronic steroids
Mast Cell Activation Syndrome
DOPA-Responsive Dystonia
-follows with Dr. Lizabeth Villanueva at [facility] hematology.
- Continue Ativan
�-cont Gleevac ,steroids
�--Levalbuterol as needed, to do her eyedrops
-Continue carbidopa levodopa
-prednisone continued
-Outpatient IV Benadryl drip at 15 milligram an hour upon presentation. As discussed with primary fishing rod marker Dr. Mora plan is to slowly taper. Decreased Benadryl drip down to 8 mg an hour on 11/30
Multiple conversations with patient almost on a daily basis in regards to goals of care including attempt to wean off Benadryl drip with possibly substitution to oral regimen to facilitate discharge as well as outpatient management. Patient has
been resistant to wean off Benadryl drip completely at this point.
11/26. Multidisciplinary meeting including psychiatry, clinical pharmacy, medicine, nursing.
Patient clinical course along with medication regimen has been reviewed.
With the goal of minimize exposure to IV medications and optimize regimen following changes implemented:
-Daily IV fluids discontinued with plan to monitor oral intake and orthostatics.
� IV Benadryl pushes have been discontinued.
� Lorazepam sublingual as needed order has been discontinued.
IV lorazepam has been discontinued
Initiated:
Benadryl 25 mg infusion through piggyback will be provided over 10 minutes for breakthrough dystonic attack.
Benadryl p.o. 25 mg will be scheduled every 4 hours.
Lorazepam sublingual 1 mg with the scheduled while awake every 4 hours.
Hydromorphone p.o. 8 mg will be continued every 6 hours as needed for severe pain along with Suboxone.
12/02.
Multidisciplinary discussion involving nursing, primary service, psychiatry, pharmacy, case management
Plan is to continue current care including intravenous Benadryl drip wean. Schedule below:
Diphenhydramine continuous infusion taper schedule Q72hr
12/18 @1300 � 8/5 @1259 � 2MG/HR
12/21 @1300 � 8/8 @1259 � 1MG/HR
12/24 @1300 � Stop infusion
Can consider increasing diphenhydramine PO up to max 300mg/day IF NEEDED. I would recommend increasing if episodes increase.
dystonia/movement disorder-patient apparently has dystonic features with her mast cell activation syndrome. I could not find in literature as a routine clinical presentation but according to patient apparently this is very unusual feature which was
noted in few other patients . She was on IV Benadryl pump at 15 mg/h at home.
-baclofen continued
-sinemet continued
-episodes with vasovagal response when trying to have a BM - start standing miralax and colace BID
Chronic pain syndrome-on high doses of narcotics (chronic opioid use with dependence) including p.o. Dilaudid and Suboxone at home. Again unclear the source of her pain.
GERD
-famotidine continued
-acipHex continued
-simethicone continued
iron def anemia
-ferrous sulfate continued
hxt of tachycardia
-EKG with sinus tachycardia
-propranolol continued
Chronic Nausea / Esophageal Dysmotility/gastroparesis
History GJ tube
�- Continue diet as tolerated.
�- Continue G-tube to gravity for chronic nausea.
�- Meds via J-tube.
-Zofran every 8 hours as needed
-Continue Pepcid
-emend continued
- PEG tube site without any signs of cellulitis. CT of the abdomen pelvis shows no subcutaneous collection around the PEG tube and it is in place.
Acute fractures of the left 6 anterolateral 6th and 7th ribs
-Suspect from recent fall on 10/03
-10/25 complains of pain on the posterolateral lower ribs
-Continue lidocaine patch, add heating packs
Steroid-Induced DM-II--
She remains on steady dose of prednisone
Blood glucose remains marginal
Monitor oral intake
Reduce Lantus and NovoLog AC
Continue serial Accu-Cheks with basal bolus protocol.
S/p fall overnight 10/03-10/04
imaging negative for bleed or fracture
Steroid-Induced Osteoporosis
Chronic Pain Syndrome secondary to the above on chronic opiates
�- Continue buprenorphine 2 mg 4 times daily , Dilaudid 8 mg as needed
�- PT / OT evaluations.
�- Follow-up with usual cardiac exercise specialist after discharge.
allergy induced asthma
chronic hypoxic respiratory failure--on O2
-albuterol continued
-budesonide continued
-cetirizine continued
-cromolyn continued
Thrush
Completed course of clotrimazole Troches for thrush
Migraine Hx
ODT Nurtec as needed
Restless leg syndrome
-Continue baclofen
History of DVT/PE
#Takes subcu Lovenox 100 mg twice daily
Left great toe inflammation/edema, likely due to ingrown toenail
Discussed with podiatry, recommend outpatient follow-up for possible first great toe toenail
Patient declines Keflex, will order wound care and Bactroban
DNR on admission
Disposition: Discussion with primary fishing rod marker Dr. Ethan Villanueva on 10/09. Discussed possibility of attempting weaning Benadryl drip likely could be done as outpatient. With current family social situation, unfortunately there is no options
for disposition other than home on IV infusion. Possibility of a transfer to [facility] discussed as well, although according to Dr. Villanueva hospital administration declined services due to complexity. Also discussed possibility of
transfer to tertiary center ([facility] declined in the past).
10/[address] Villanueva over the phone as well as [facility] transfer center.
Complex patient. Attempt to wean off Benadryl drip over the last 2 weeks with persistent dystonic episodes
While patient is relatively stable with her current condition, given complex clinical picture requiring multi disciplinary approach not limited to medicine, hematology, allergology, as well as neuropsychiatric assessment, patient would be better
served at a tertiary facility. Patient was accepted to [facility] for transfer, but hospital administration denied her transfer due to complexity (discussed with patient who is aware)
Updated father on phone 12/18, he is asking for a call from Dr. Kirk, on 12/21.
Total time spent to see the patient on the floor, examine the patient, review data and lab results, discuss treatment plan with patient, nursing staff around 51 minutes.
Anticipated Discharge: > 48 hours
Subjective/Interval History
-
Date of Service: December 24, 2023
Objective Data
-
Vital Signs:
Vital Signs
Temp Pulse Resp BP Pulse Ox
97.8 F 90 9 110/70 98
12/24/23 15:43 12/24/23 14:00 12/24/23 14:00 12/24/23 12:00 12/24/23 10:50
I&O
12/23/23 12/24/23 12/25/23
06:59 06:59 06:59
Intake Total 580 / 580 100 / 100 290 / 290
Output Total 1600 / 1600 1950 / 1950 1300 / 1300
Balance -1020 / -1020 -1850 / -1850 -1010 / -1010
Physical Exam
-
Respiratory: Clear to Auscultation; Negative Wheezes or Rhonchi
Cardiac: Regular Rhythm, S1/S2 and Tachycardic
GI: Soft and Nontender
Neuro: Awake and Other (Dystonic posture with tremors)
[2023-12-24] MEDS: ZYRTEC 10 MG TUBE ×2 (18:06→21:25)
[2023-12-24 18:21] LABS: Glucose - Point of Care 134 mg/dl (70-99)
--- NOTE | 2023-12-24 18:30 | PTCARENOTE ---
Patient's benadryl drip is at 1mg/mls/hr. Patient had three dystonic episodes today with one of them requiring epi IM. Patient was INC of stool with one of the episodes. Patient generally did not feel well all day today. She was nauseous and had
difficulty eating today. SR/ST on monitor. VS stable.
[2023-12-24 20:00] VITALS: BP 104/70
[2023-12-24] MEDS: FEOSOL 325 MG PO (21:22)
[2023-12-24 22:06] LABS: Glucose - Point of Care 118 mg/dl (70-99)
[2023-12-25] VITALS (8 sets, daily range): BP systolic 91–143; BP diastolic 61–129; PULSE 99–141
[2023-12-25] MEDS: BENADRYL 50.5 MG IV ×5 (00:14→22:18)
[2023-12-25] MEDS: ATIVAN 1 MG SL ×7 (00:15→23:28)
[2023-12-25] MEDS: ADRENALIN 0.3 MG IM ×3 (00:31→16:54)
[2023-12-25] MEDS: BENADRYL SOLUTION 25 MG TUBE ×6 (00:41→22:23)
[2023-12-25] MEDS: DUONEB 3 ML INH ×5 (00:56→19:40)
[2023-12-25] MEDS: ATIVAN 1 MG IV ×3 (01:27→17:35)
[2023-12-25] MEDS: NSS (PRESERVATIVE FREE) 0.5 ML IV ×3 (01:27→17:35)
--- NOTE | 2023-12-25 01:39 | PTCARENOTE ---
Pt had dystonic episode lasting about 75 minutes. prn benadryl , scheduled medications (SL ativan, benadryl solution) and prn epi x 2 given. RT at bedside to administer neb tx. Pt felt some improvement but still requesting something for dystonia/
tremors. ASHLEY Braswell notified and ordered stat dose 1 mg ativan iv. med administered. pt verbalized feeling better.
[2023-12-25] MEDS: SINEMET 25-100 1.5 TABLET TUBE ×2 (05:04→10:16)
[2023-12-25] MEDS: LIORESAL 10 MG TUBE ×3 (05:06→22:34)
[2023-12-25] MEDS: PULMICORT 0.5 MG INH ×2 (07:28→19:40)
--- NOTE | 2023-12-25 08:00 | W.PN.HOSP.TC ---
Today's Communication/Plan
-
benadryl drip off
monitor
Assessment / Plan
Assessment / Plan
12/25/23 -- benadryl drip to come off today--reported daily attacks--pt concerned about need for IV meds, nursing care, etc--told me Dr. Kirk was supoposed to talk to insurance company...?
Impression:
Gram-negative bacteremia due to chronic infected PICC line.
Fever on admission with no evidence of sepsis (tachycardia likely fever mediated)
Conditions prior to admission:
1. Mast cell activation syndrome.
2. Chronic dystonic reaction.
3. Orthostatic hypotension with postural orthostatic and
tachycardia syndrome.
4. Dopa sensitive dystonia.
5. Steroid-induced diabetes.
6. Prior history of deep venous thrombosis and pulmonary embolism.
7. Chronic pain syndrome.
8. Migraine headaches.
9. Gastroesophageal reflux disease.
10. Benzodiazepine and opiate dependence.
11. Restless legs syndrome.
12. Insomnia.
13. History of vocal cord dysfunction.
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
15. Gastroparesis.
16. 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
17. 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
Plan:
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
PICC line removed and PICC line replaced on 09/23
Repeated blood cultures negative on 09/20 but no other cultures obtained
Finished cipro on 10/06/23 (was on 750mg BID)
GJ tube in place
Replaced by interventional radiology on 09/22
Replaced by interventional radiology 11/04 due to concern leakage
HX Recurrent Anaphylaxis / Mast Cell Flare Episodes on chronic steroids
Mast Cell Activation Syndrome
DOPA-Responsive Dystonia
-follows with Dr. Lizabeth Villanueva at [facility] hematology.
- Continue Ativan
�-cont Gleevac ,steroids
�--Levalbuterol as needed, to do her eyedrops
-Continue carbidopa levodopa
-prednisone continued
-Outpatient IV Benadryl drip at 15 milligram an hour upon presentation. As discussed with primary biomedical engineering technician Dr. Mora plan is to slowly taper. Decreased Benadryl drip down to 1 mg an hour on 12/22/23 with plans to stop drip today 12/24
Multiple conversations with patient almost on a daily basis in regards to goals of care including attempt to wean off Benadryl drip with possibly substitution to oral regimen to facilitate discharge as well as outpatient management. Patient has
been resistant to wean off Benadryl drip completely at this point as per Dr. Kirk
11/26. Multidisciplinary meeting including psychiatry, clinical pharmacy, medicine, nursing.
Patient clinical course along with medication regimen has been reviewed.
With the goal of minimize exposure to IV medications and optimize regimen following changes implemented:
-Daily IV fluids discontinued with plan to monitor oral intake and orthostatics.
� IV Benadryl pushes have been discontinued.
� Lorazepam sublingual as needed order has been discontinued.
IV lorazepam has been discontinued
Initiated:
Benadryl 25 mg infusion through piggyback will be provided over 10 minutes for breakthrough dystonic attack.
Benadryl p.o. 25 mg will be scheduled every 4 hours.
Lorazepam sublingual 1 mg with the scheduled while awake every 4 hours.
Hydromorphone p.o. 8 mg will be continued every 6 hours as needed for severe pain along with Suboxone.
12/02.
Multidisciplinary discussion involving nursing, primary service, psychiatry, pharmacy, case management
Plan is to continue current care including intravenous Benadryl drip wean. Schedule below:
Diphenhydramine continuous infusion taper schedule Q72hr
12/18 @1300 � 8/ @1259 � 2MG/HR
12/21 @1300 � 8 @1259 � 1MG/HR
12/24 @1300 � Stop infusion
Can consider increasing diphenhydramine PO up to max 300mg/day IF NEEDED. I would recommend increasing if episodes increase. Current dose is 25 mg Q4H via tube, would increase to 37.5mg Q4H IF NEEDED, may need some increase as she comes off the
drip today 12/24
dystonia/movement disorder-patient apparently has dystonic features with her mast cell activation syndrome. I could not find in literature as a routine clinical presentation but according to patient apparently this is very unusual feature which was
noted in few other patients . She was on IV Benadryl pump at 15 mg/h at home.
-baclofen continued
-sinemet continued
-episodes with vasovagal response when trying to have a BM - start standing miralax and colace BID--now saying she soils herself with coughing episodes
Chronic pain syndrome-on high doses of narcotics (chronic opioid use with dependence) including p.o. Dilaudid and Suboxone at home. Again unclear the source of her pain.
GERD
-famotidine continued
-acipHex continued
-simethicone continued
iron def anemia
-ferrous sulfate continued
hxt of tachycardia
-EKG with sinus tachycardia
-propranolol continued
Chronic Nausea / Esophageal Dysmotility/gastroparesis
History GJ tube
�- Continue diet as tolerated.
�- Continue G-tube to gravity for chronic nausea.
�- Meds via J-tube.
-Zofran every 8 hours as needed
-Continue Pepcid
-emend continued
- PEG tube site without any signs of cellulitis. CT of the abdomen pelvis shows no subcutaneous collection around the PEG tube and it is in place.
Acute fractures of the left 6 anterolateral 6th and 7th ribs
-Suspect from recent fall on 10/03
-10/25 complains of pain on the posterolateral lower ribs
-Continue lidocaine patch, add heating packs
Steroid-Induced DM-II--
She remains on steady dose of prednisone--has cushingoid features on physical exam
Blood glucose remains marginal
Monitor oral intake
Reduce Lantus and NovoLog AC
Continue serial Accu-Cheks with basal bolus protocol.
S/p fall overnight 10/03-10/04
imaging negative for bleed or fracture
Steroid-Induced Osteoporosis
Chronic Pain Syndrome secondary to the above on chronic opiates
�- Continue buprenorphine 2 mg 4 times daily , Dilaudid 8 mg as needed
�- PT / OT evaluations.
�- Follow-up with usual child protection specialist after discharge.
allergy induced asthma
chronic hypoxic respiratory failure--on O2
-albuterol continued
-budesonide continued
-cetirizine continued
-cromolyn continued
Thrush
Completed course of clotrimazole Troches for thrush
Migraine Hx
ODT Nurtec as needed
Restless leg syndrome
-Continue baclofen
History of DVT/PE
#Takes subcu Lovenox 100 mg twice daily
Left great toe inflammation/edema, likely due to ingrown toenail
Discussed with podiatry, recommend outpatient follow-up for possible first great toe toenail
Patient declines Keflex, will order wound care and Bactroban
DNR on admission
Disposition: Discussion with primary biomedical engineering technician Dr. Ethan Villanueva on 10/09. Discussed possibility of attempting weaning Benadryl drip likely could be done as outpatient. With current family social situation, unfortunately there is no options
for disposition other than home on IV infusion. Possibility of a transfer to [facility] discussed as well, although according to Dr. Villanueva hospital administration declined services due to complexity. Also discussed possibility of
transfer to tertiary center ([facility] declined in the past).
10/[address] Villanueva over the phone as well as [facility] transfer center.
Complex patient. Attempt to wean off Benadryl drip over the last 2 weeks with persistent dystonic episodes
While patient is relatively stable with her current condition, given complex clinical picture requiring multi disciplinary approach not limited to medicine, hematology, allergology, as well as neuropsychiatric assessment, patient would be better
served at a tertiary facility. Patient was accepted to [facility] for transfer, but hospital administration denied her transfer due to complexity (discussed with patient who is aware)
Updated father on phone 12/18, he is asking for a call from Dr. Kirk, on 12/21.
Total time spent to see the patient on the floor, examine the patient, review data and lab results, discuss treatment plan with patient, nursing staff around 51 minutes.
Anticipated Discharge: > 48 hours
Subjective/Interval History
-
Date of Service: December 25, 2023
pt concerned about d/c planning, IV meds, nursing care at home, etc
Objective Data
-
Vital Signs:
max temp for 24 hours
12/25/23
00:01
Temp 98.4 F
Vital Signs
Temp Pulse Resp BP Pulse Ox
98.1 F 113 24 94/62 95
12/25/23 03:50 12/25/23 07:30 12/25/23 07:30 12/25/23 04:00 12/25/23 07:30
I&O
12/24/23 12/25/23 12/26/23
06:59 06:59 06:59
Intake Total 100 / 100 1590 / 1590
Output Total 1950 / 1950 3250 / 3250
Balance -1850 / -1850 -1660 / -1660
Review of Systems
-
All other systems: Reviewed and negative
Physical Exam
-
General: Well Developed, Well Nourished, No Apparent Distress and Other (cushingoid features)
HEENT: Normocephalic, Atraumatic and Other
Respiratory: Clear to Auscultation; Negative Wheezes, Rales or Rhonchi
Cardiac: Regular Rhythm, S1/S2 and Tachycardic; Negative Murmur
GI: Soft, Nontender, Nondistended and Normal Bowel Sounds
Musculoskeletal: No Clubbing and No Cyanosis; Negative No Edema
Neuro: Awake and Alert
Psych: Calm
[2023-12-25 08:50] LABS: Glucose - Point of Care 80 mg/dl (70-99)
[2023-12-25] MEDS: GASTROCROM 300 MG PO ×4 (10:08→22:33)
[2023-12-25] MEDS: SUBUTEX 2 MG SL ×4 (10:12→22:32)
[2023-12-25] MEDS: HYDREA 500 MG PO ×2 (10:13→20:18)
[2023-12-25] MEDS: DESENEX/MITRAZOL/ZEASORB 1 APPLIC TOPICAL ×2 (10:14→20:20)
[2023-12-25] MEDS: DELTASONE 10 MG TUBE ×2 (10:16→20:19)
[2023-12-25] MEDS: CLARITIN 10 MG TUBE (10:17)
[2023-12-25] MEDS: VITAMIN B1 100 MG TUBE (10:18)
[2023-12-25] MEDS: ZOFRAN 4 MG IV ×2 (10:18→18:35)
[2023-12-25] MEDS: PEPCID 40 MG IV ×2 (10:24→20:27)
[2023-12-25] MEDS: NON-FORMULARY ITEM 80 MG PO (10:25)
[2023-12-25] MEDS: NSS (PRESERVATIVE FREE) 6 ML IV ×2 (10:25→20:24)
[2023-12-25] MEDS: NON-FORMULARY ITEM 1 UNIT PO ×2 (10:26→20:21)
[2023-12-25] MEDS: INDERAL 10 MG TUBE ×2 (10:27→15:07)
[2023-12-25] MEDS: NON-FORMULARY ITEM 1 MG PO ×2 (10:27→20:22)
[2023-12-25] MEDS: LOVENOX 90 MG SC ×2 (10:28→20:16)
[2023-12-25] MEDS: LIDOCAINE 4% PATCH 1 PATCH TOPICAL (10:28)
[2023-12-25] MEDS: ZADITOR 1 DROP BOTH EYES ×2 (10:29→20:28)
[2023-12-25 11:41] LABS: Glucose - Point of Care 102 mg/dl (70-99)
[2023-12-25] MEDS: NOVOLOG FLEXPEN SC (11:49)
[2023-12-25] MEDS: NOVOLOG FLEXPEN-LOW RESISTANCE SC ×3 (11:50→18:41)
[2023-12-25] MEDS: NOVOLOG FLEXPEN 3 UNITS SC ×2 (11:51→18:40)
[2023-12-25] MEDS: COLACE PO (11:53)
[2023-12-25] MEDS: BACTROBAN 2% OINTMENT 1 APPLIC TOPICAL ×2 (11:53→15:08)
[2023-12-25] MEDS: LANTUS 0.1 UNITS SC (11:53)
[2023-12-25] MEDS: NON-FORMULARY ITEM NASAL (11:54)
[2023-12-25] MEDS: MIRALAX TUBE (11:54)
--- NOTE | 2023-12-25 13:26 | W.PN.UPDATE ---
Update Note
Progress Note Update
called to IMU STAT
pt was walking with therapy and felt like she was going to pass out--started to buckle, therapy lowered her to the ground gently, no injury--then went into a dystonic reaction--IV benadryl had not yet stopped, rescue benadryl hung, STAT IV ativan 1
mg to be given now (my order), resp treatment also being given
VS: HR 152, 99% 2L, 22 RR, 99.6 axillary
PE: dystonic (almost seizure like reaction with eyes rolled back, stiff, not responsive, shaking)
coarse breath sounds with coughing--getting treatment
PLAN: neuro consult--may need EEG (ideally would like to get EEG while having dystonic reaction)--last EEG 2021
cont all rescue meds
[2023-12-25 13:28] LABS: Glucose - Point of Care 117 mg/dl (70-99)
--- NOTE | 2023-12-25 14:03 | PTCARENOTE ---
Patient working with PT and while ambulating in the hallway patient stated that she felt like she was going to pass out. PT guided patient to the floor. Patient began having a dystonic episode at this time. As a team, multiple staff members
worked to gety patient to bed using yvette lift. Dr. Hayden called to unit. Order obtained for 1 mg IV ativan. PRN benadryl given at this time. VS BP 143/110, HR 144, Sp02 98% 2L, 99.6 axillary, resp. 14. Orders obtained for EEG and back xrays.
Will continue to monitor.
[2023-12-25] MEDS: SINEMET 25-100 2 TABLET TUBE ×2 (15:07→18:36)
--- NOTE | 2023-12-25 15:54 | PTCARENOTE ---
Thoracic and lumbar xrays negative. Patient currently getting EEG at bedside. Vital signs remain stable. SR on monitor. Benadryl drip ordered to remain at 1mg/ml/hr. via left PICC.
--- NOTE | 2023-12-25 16:47 | CM ---
Patient with Hx Mast Cell Activation Syndrome, dystonia/movement disorder, chronic pain syndrome, gastroparesis with Dx Gram-negative bacteremia due to chronic infected PICC line. O2 2L. Receiving Benadryl gtt 1mg/hr.
Patient had dystonic episode while ambulating in [place] with PT/OT today. Neuro Consult. EEG today. T & L Spine Xrays ordered.
Spoke with Dr Hayden; she saw the patient following the dystonic episode and was deciding whether to stop or continue the IV Benadryl gtt.
Plan contact [facility] once Benadryl gtt is discontinued and final d/c meds are known (if patient will need any prn IV meds).
Plan contact [facility] if patient needs any IV prn meds at d/c.
Plan discharge to parents house 01/04 or apartment 01/09 once Skilled Nurse or VN & Caregiver agency arrangements are finalized.
[2023-12-25] MEDS: BENADRYL 100 MG IV (17:12)
--- NOTE | 2023-12-25 17:13 | PTCARENOTE ---
Immediately after EEG was complete patient started having another dystonic episode. Unable to give PRN benadryl piggy pack too soon to administer. Respiratory therapist to room to give tx. Administered epi IM . Ice packs and repositioning
provided. Emotional support provided. Will continue to monitor.
--- NOTE | 2023-12-25 17:22 | W.PN.UPDATE ---
Update Note
Progress Note Update
nursing reported that pt had another dystonic reaction as soon as she was disconnected from the EEG....
--- NOTE | 2023-12-25 17:27 | EEG.RPT ---
Electroencephalogram Report
Recording
Date of EE12/25/23
Type of EEG: Routine
Length of EEG recordin mins
Done with Video Recording: Yes
Patient Status: Inpatient
Recording Conditions: Awake, Drowsy and Asleep
Hyperventilation Performed: No
Photic Stimulation Performed: Yes
Report
METHODS
A 21 channel digitized electroencephalogram was performed at [facility]. The 10/20 international system of electrode placement was used. In addition to EEG, the patient was monitored for EKG. The duration of the recording was 66 minutes.
BACKGROUND
During the awake state, with the eyes closed, the background consisted of a normal amplitude, 9 Hertz posterior reactive rhythm that attenuated appropriately with eye opening. Beta activity was distributed diffusely with an anterior predominance.
There was a normal anterior-posterior voltage gradient. With eye opening the background activity changed to a low voltage mixture of alpha, beta, and occasional theta range frequencies. There were no significant asymmetries of background activity
noted.
SLEEP
Stage II sleep was obtained and consisted of symmetrical sleep spindles and vertex sharp waves.
HYPERVENTILATION
Hyperventilation resulted in diffuse slowing of the background activity without appearance of abnormal activity.
PHOTIC STIMULATION
Photic stimulation using a step-rowland increase in photic frequency varying from 1-31 Hertz resulted in no driving responses but no appearance of abnormal activity.
ABNORMAL EEG ACTIVITY
None
CLINICAL EVENTS
None
INTERPRETATION AND CLINICAL CORRELATION
This EEG is normal during the awake and sleep states as well as during the activation procedures of photic stimulation. No seizures were noted during the recording. A normal EEG, in itself, does not rule out a diagnosis of epilepsy. If clinical
suspicion for seizure persists, a sleep-deprived and/or prolonged recording may be warranted.
[2023-12-25 17:53] LABS: Glucose - Point of Care 154 mg/dl (70-99)
[2023-12-25] MEDS: NON-FORMULARY ITEM 200 MG PO (18:31)
[2023-12-25] MEDS: ZYRTEC 10 MG TUBE ×2 (18:40→22:34)
[2023-12-25] MEDS: COLACE 100 MG PO (20:14)
[2023-12-25] MEDS: TYLENOL 650 MG PO (22:35)
[2023-12-25 23:26] LABS: Glucose - Point of Care 134 mg/dl (70-99)
[2023-12-26] VITALS: BP 140/95
[2023-12-26] MEDS: INDERAL 10 MG TUBE ×4 (00:01→21:32)
[2023-12-26] MEDS: MYLICON 80 MG PO (00:05)
--- NOTE | 2023-12-26 00:26 | PTCARENOTE ---
Received pt from shift nurse manager. 98% on 2 L, AAOx3, resting in bed with PW in place. Benadryl drip is at 1mg/mL/hr. Dystonic episode began around 22:20. PRN Benadryl drip and MELONIE meds administered, see MAR. Reached out to ROBOTICS TESTING TECHNICIAN after episode lasted around
50 minutes for potential medication. ROBOTICS TESTING TECHNICIAN said to give Rx'ed 00:00 Ativan, see MAR. Pt's dystonia decreased within a half hour of Ativan admin. Pt lying in bed with call sanchez in reach.
[2023-12-26] MEDS: FEOSOL PO (00:28)
--- NOTE | 2023-12-26 00:30 | PTCARENOTE ---
Received pt from day shift. 98% on 2 L AAOx3, resting in bed with PW in place. Benadryl drip is at 1mg/mL/hr. Dystonic episode began around 22:20. PRN Benadryl drip and MELONIE meds administered, see MAR. Reached out to DIRECTOR OF STRATEGIC COMMUNICATIONS after episode lasted around 50
minutes for potential medication. DIRECTOR OF STRATEGIC COMMUNICATIONS said to give Rx'ed 00:00 Ativan, see MAR. Pt's dystonia decreased within a half hour of Ativan admin. Pt lying in bed with call sanchez in reach.
[2023-12-26] MEDS: BACTROBAN 2% OINTMENT 1 APPLIC TOPICAL ×4 (00:50→21:21)
[2023-12-26] MEDS: ZOFRAN 4 MG IV ×4 (00:51→21:24)
[2023-12-26] MEDS: BENADRYL SOLUTION 25 MG TUBE ×6 (00:55→21:23)
[2023-12-26 04:00] VITALS: BP 109/87
[2023-12-26] MEDS: SINEMET 25-100 1.5 TABLET TUBE ×2 (05:03→08:51)
[2023-12-26] MEDS: LIORESAL 10 MG TUBE ×3 (05:03→21:35)
[2023-12-26] MEDS: ATIVAN 1 MG SL ×5 (05:03→19:37)
[2023-12-26] MEDS: DUONEB 3 ML INH ×2 (07:11→12:52)
[2023-12-26] MEDS: PULMICORT 0.5 MG INH ×2 (07:11→19:56)
[2023-12-26] MEDS: BENADRYL 50.5 MG IV ×3 (07:52→19:30)
[2023-12-26 08:00] VITALS: BP 101/81
--- NOTE | 2023-12-26 08:03 | W.PN.HOSP.TC ---
Today's Communication/Plan
-
check COVID for cough
Cont Benadryl drip at 0.5 mg/hr instead of stopping
Assessment / Plan
Assessment / Plan
Impression:
Gram-negative bacteremia due to chronic infected PICC line.
Conditions prior to admission:
1. Mast cell activation syndrome.
2. Chronic dystonic reaction.
3. Orthostatic hypotension with postural orthostatic and tachycardia syndrome.
4. Dopa sensitive dystonia.
5. Steroid-induced diabetes.
6. Prior history of deep venous thrombosis and pulmonary embolism.
7. Chronic pain syndrome.
8. Migraine headaches.
9. Gastroesophageal reflux disease.
10. Benzodiazepine and opiate dependence.
11. Restless legs syndrome.
12. Insomnia.
13. History of vocal cord dysfunction.
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
15. Gastroparesis.
16. 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
17. 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
A/P:
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
PICC line removed and PICC line replaced on 09/23
Repeated blood cultures negative on 09/20 but no other cultures obtained
Finished cipro on 10/06/23 (was on 750mg BID)
GJ tube in place
Replaced by interventional radiology on 09/22
Replaced by interventional radiology 11/04 due to concern leakage
HX Recurrent Anaphylaxis / Mast Cell Flare Episodes on chronic steroids
Mast Cell Activation Syndrome
DOPA-Responsive Dystonia
follows with Dr. Lizabeth Villanueva at [facility] hematology.
Continue Ativan
cont Gleevac, steroids
Levalbuterol as needed
Continue carbidopa levodopa
prednisone continued
Outpatient IV Benadryl drip at 15 mg/hr upon presentation. As discussed with primary bed machine operator Dr. Mora plan is to slowly taper. Decreased Benadryl drip down to 1 mg an hour on 12/22/23 with plans to stop drip
Multiple conversations with patient almost on a daily basis in regards to goals of care including attempt to wean off Benadryl drip with possibly substitution to oral regimen to facilitate discharge as well as outpatient management. Patient has been
resistant to wean off Benadryl drip completely at this point as per Dr. Kirk
11/26. Multidisciplinary meeting including psychiatry, clinical pharmacy, medicine, nursing.
Patient clinical course along with medication regimen has been reviewed.
With the goal of minimize exposure to IV medications and optimize regimen following changes implemented:
-Daily IV fluids discontinued with plan to monitor oral intake and orthostatics.
-IV Benadryl pushes have been discontinued.
-Lorazepam sublingual as needed order has been discontinued.
-IV lorazepam has been discontinued
Initiated:
Benadryl 25 mg infusion through piggyback will be provided over 10 minutes for breakthrough dystonic attack.
Benadryl p.o. 25 mg will be scheduled every 4 hours.
Lorazepam sublingual 1 mg with the scheduled while awake every 4 hours.
Hydromorphone p.o. 8 mg Q6H PRN will be continued for severe pain along with Suboxone.
12/02.
Multidisciplinary discussion involving nursing, primary service, psychiatry, pharmacy, case management
Plan is to continue current care including intravenous Benadryl drip wean. Schedule below:
Diphenhydramine continuous infusion taper schedule Q72hr
12/18 @1300 � 8 @1259 � 2MG/HR
12/21 @1300 � 8 @1259 � 1MG/HR
12/25 @1300 � instead of stopping infusion, would cont at 0.5 mg/hr
Can consider increasing diphenhydramine PO up to max 300mg/day IF NEEDED. Would recommend increasing if episodes increase.
Current dose is 25 mg Q4H via tube, would increase to 37.5mg Q4H IF NEEDED, may need some increase as she comes off the drip today 12/24
dystonia/movement disorder-patient apparently has dystonic features with her mast cell activation syndrome.
could not find in literature as a routine clinical presentation but according to patient apparently this is very unusual feature which was noted in few other patients.
She was on IV Benadryl pump at 15 mg/h at home.
-baclofen continued
-sinemet continued
-episodes with vasovagal response when trying to have a BM- start standing miralax and colace BID--now saying she soils herself with coughing episodes
Chronic pain syndrome on high doses of narcotics (chronic opioid use with dependence) including p.o. Dilaudid and Suboxone at home.
Again unclear the source of her pain.
Follow-up with usual client engagement specialist after discharge.
GERD
-famotidine continued
-acipHex continued
-simethicone continued
iron def anemia
-ferrous sulfate continued
hxt of tachycardia
-EKG with sinus tachycardia
-propranolol continued
Chronic Nausea / Esophageal Dysmotility/gastroparesis
History GJ tube
-Continue diet as tolerated.
-Continue G-tube to gravity for chronic nausea.
-Meds via J-tube.
-Zofran every 8 hours as needed
-Continue Pepcid
-emend continued
-PEG tube site without any signs of cellulitis. CT of the abdomen pelvis shows no subcutaneous collection around the PEG tube and it is in place.
Acute fractures of the left 6 anterolateral 6th and 7th ribs
-Suspect from recent fall on 10/03
-10/25 complains of pain on the posterolateral lower ribs
-Continue lidocaine patch, add heating packs
Steroid-Induced DM-II
She remains on steady dose of prednisone- has cushingoid features on physical exam
Blood glucose remains marginal
Monitor oral intake
Reduce Lantus and NovoLog AC
Continue serial Accu-Cheks with basal bolus protocol.
s/p fall overnight 10/03-10/04
imaging negative for bleed or fracture
Steroid-Induced Osteoporosis
- PT / OT evaluations.
allergy induced asthma
chronic hypoxic respiratory failure on O2
-albuterol continued
-budesonide continued
-cetirizine continued
-cromolyn continued
Thrush
Completed course of clotrimazole Troches for thrush
Migraine Hx
ODT Nurtec as needed
Restless leg syndrome
-Continue baclofen
History of DVT/PE
-Takes subcu Lovenox 100 mg twice daily
Left great toe inflammation/edema, likely due to ingrown toenail
Discussed with podiatry, recommend outpatient follow-up for possible first great toe toenail
Patient declines Keflex, will order wound care and Bactroban
DNR on admission
Disposition: Discussion with primary bed machine operator Dr. Ethan Villanueva on 10/09. Discussed possibility of attempting weaning Benadryl drip likely could be done as outpatient. With current family social situation, unfortunately there is no options
for disposition other than home on IV infusion. Possibility of a transfer to [facility] discussed as well, although according to Dr. Villanueva hospital administration declined services due to complexity. Also discussed possibility of
transfer to tertiary center ([facility] declined in the past).
10/[address] Villanueva over the phone as well as [facility] transfer center.
Complex patient. Attempt to wean off Benadryl drip over the last 2 weeks with persistent dystonic episodes.
While patient is relatively stable with her current condition, given complex clinical picture requiring multi disciplinary approach not limited to medicine, hematology, allergology, as well as neuropsychiatric assessment, patient would be better
served at a tertiary facility. Patient was accepted to [facility] for transfer, but hospital administration denied her transfer due to complexity (discussed with patient who is aware)
Total time spent to see the patient on the floor, examine the patient, review data and lab results, discuss treatment plan with patient, nursing staff around 51 minutes.
Anticipated Discharge: > 48 hours
Subjective/Interval History
-
Date of Service: December 26, 2023
Objective Data
-
Vital Signs:
Vital Signs
Temp Pulse Resp BP Pulse Ox
36.8 C 103 18 109/87 93
12/26/23 07:57 12/26/23 07:15 12/26/23 07:15 12/26/23 04:00 12/26/23 07:15
I&O
12/25/23 12/26/23 12/27/23
06:59 06:59 06:59
Intake Total 1590 / 1590 770 / 770
Output Total 3250 / 3250
Balance -1660 / -1660 770 / 770
Review of Systems
-
Respiratory: Reports Cough
Physical Exam
-
General: Well Developed, Well Nourished, Conversant, Appears Chronically Ill and Other (cushingoid features)
HEENT: Normocephalic, Atraumatic and Oxygen (chronic O2 dependent)
Respiratory: Clear to Auscultation and Non Labored Respirations; Negative Wheezes, Rales, Rhonchi or Accessory Resp Muscle Use
Cardiac: Regular Rhythm, S1/S2 and Tachycardic; Negative Murmur
GI: Soft, Nontender, Nondistended and Normal Bowel Sounds
Musculoskeletal: No Clubbing and No Cyanosis; Negative No Edema
Neuro: Awake and Alert
Psych: Calm
[2023-12-26 08:36] LABS: Glucose - Point of Care 113 mg/dl (70-99)
[2023-12-26] MEDS: NOVOLOG FLEXPEN 3 UNITS SC ×3 (08:48→17:39)
[2023-12-26] MEDS: NOVOLOG FLEXPEN-LOW RESISTANCE SC ×3 (08:48→17:37)
[2023-12-26] MEDS: LOVENOX 90 MG SC ×2 (08:49→20:47)
[2023-12-26] MEDS: MIRALAX 17 GRAMS TUBE (08:49)
[2023-12-26] MEDS: LIDOCAINE 4% PATCH 1 PATCH TOPICAL (08:49)
[2023-12-26] MEDS: SUBUTEX 2 MG SL ×4 (08:51→21:34)
[2023-12-26] MEDS: HYDREA 500 MG PO ×2 (08:53→20:49)
[2023-12-26] MEDS: GASTROCROM 300 MG PO ×4 (08:53→21:24)
[2023-12-26] MEDS: DELTASONE 10 MG TUBE ×2 (08:54→20:48)
[2023-12-26] MEDS: VITAMIN B1 100 MG TUBE (08:54)
[2023-12-26] MEDS: PEPCID 40 MG IV ×2 (08:55→20:52)
[2023-12-26] MEDS: NSS (PRESERVATIVE FREE) 6 ML IV ×2 (08:55→20:52)
[2023-12-26] MEDS: CLARITIN 10 MG TUBE (08:56)
[2023-12-26] MEDS: COLACE 100 MG PO ×2 (08:57→20:47)
[2023-12-26] MEDS: NON-FORMULARY ITEM 1 UNIT PO ×3 (08:58→20:50)
[2023-12-26] MEDS: DESENEX/MITRAZOL/ZEASORB 1 APPLIC TOPICAL ×2 (09:00→20:49)
[2023-12-26] MEDS: ZADITOR 1 DROP BOTH EYES ×2 (09:00→20:53)
[2023-12-26] MEDS: NON-FORMULARY ITEM 1 MG PO ×3 (09:01→20:50)
[2023-12-26] MEDS: NON-FORMULARY ITEM NASAL (09:03)
[2023-12-26] MEDS: LANTUS 0.1 UNITS SC (09:17)
[2023-12-26 09:48] LABS: COVID-19 Antigen Negative (Negative)
--- NOTE | 2023-12-26 11:04 | PTCARENOTE ---
Mary had one episode this am. Meds given. Pt G/J tube leaking pt states it needs to changed out . DR Hagen aware via TT . Mary feeling frustrated in re to her situation. Encouragment offered. Covid test done as ordered.
--- NOTE | 2023-12-26 11:54 | CM ---
CM following re: discharge planning.
Reviewed pt's chart, met with pt per pt's strong request.
Pt stated she is ready to leave the hospital next week. Per pt, she wants to be discharged to parent's house on 01/05/24 and to move to her new apartment at [address] [place] [address], [address], [place] [address] on 01/10/24. Pt stated she spent enough
time in the hospital and she stated it is time for her to leave the hospital. Pt made a strong request that all services she needs at discharge [place] [id number]. Pt stated she spoke to [facility] and was
told they cannot provide RN services. pt stated she is coordinating very well her needs for discharge with [facility] services coordination Roslyn, has been speaking with [facility] team, has been in contact with [facility] infusion therapy
pharmacist Saravanan. Pt stated she has been administrated IV medication at home by herself with coordination of [facility] infusion therapy team that trained her parents in case it needed. Per pt her mother now requested to have RN to administer IV
medication.
Pt stated she has all necessary DME at home: homeO2, Rollator, custom made wheelchair, hospital bed, C-Pap machine and pt stated she will be working to get a scooter and pt expressed her understanding the it will not be done at the hospital.
Pt stated she wants to go home on 01/04 to prepare to move to her apartment and her parents and friends will help with packing and moving her stuff and to move to her new apartment. pt stated that [facility] has approved 17 hours of RN services
to help with administer her IV mediations. pt stated she will have on one IV medications and IV Benadryl PRN as 'rescue med' that will help during crisis.
CM called [facility] patient service specialist Roslyn to confirm approving requested services and have to leave a message.
CM spoke to [facility] sales service representative Christie and she confirmed they do not have RN on staff, only DIRECTOR OF TRAINING and DIRECTOR OF TRAINING cannot administer IV medications and that's why they will not be able to provide chcf care and they will only provide 24/7
caregiver services. Per Christie, she will do her best to secure caregivers available at a time of discharge.
CM spoke to [facility] [phone] sales service representative and as told they did provide RN services to the pt at home in August 2023 and she confirmed that they will not accept the pt for services due to staffing issue.
Pt stated she will need [facility], their pharmacist Saravanan is on vacation this week and he will be next week.
Pt stated she will need feeding supply and pt is aware that some work has been done with [facility].
D/C plan: per pt, home to parent's house on 01/05/24 with 09/12 [facility] services, 17 hours of RN services (Agency not available today), [facility], feeding supply and family support with a plan to move to her
independent apartment on 01/10/24. CM will coordinate with [facility] patient service specialist Roslyn to arrange RN skilled services.
CM will follow to assist pt with a safe discharge plan.
[2023-12-26 12:00] VITALS: BP 109/78
[2023-12-26 12:28] LABS: Glucose - Point of Care 133 mg/dl (70-99)
[2023-12-26] MEDS: SINEMET 25-100 2 TABLET TUBE ×2 (13:50→17:36)
[2023-12-26] MEDS: NON-FORMULARY ITEM 2 MG PO (13:51)
--- NOTE | 2023-12-26 14:00 | PTCARENOTE ---
Pt Benadryl gtt to 0.5 /hr as ordered
--- NOTE | 2023-12-26 14:54 | PTCARENOTE ---
Ir came to floor to check G/J tube. Inflated ballon moved bumperredressed site. Ir will put her on schedule sometime next week to exchange tube as they believe its showing wear.
--- NOTE | 2023-12-26 14:56 | PTCARENOTE ---
Mary had one more episode, meds given encouragement offered
[2023-12-26] MEDS: TYLENOL 650 MG PO ×2 (15:17→21:31)
[2023-12-26] MEDS: ZYRTEC 10 MG TUBE ×2 (16:23→21:34)
[2023-12-26 16:43] LABS: Glucose - Point of Care 116 mg/dl (70-99)
[2023-12-26 20:32] VITALS: BP 117/74
[2023-12-26] MEDS: BENADRYL 50 MG IV (20:44)
--- NOTE | 2023-12-26 21:10 | PTCARENOTE ---
Received pt from day shift. AAOx3, 99% on 2L NC. Benadryl drip running at 0.5 mL/hr. Pt experienced a dystonic episode with coughing spell that began around 19:35. Gave MELONIE Ativan and PRN Benadryl gtt, see JUL. Messaged respiratory and pt received
PRN neb treatment. Episode subsided around 21:00. resting in bed with call bed in reach.
[2023-12-26 21:21] LABS: Glucose - Point of Care 166 mg/dl (70-99)
[2023-12-26 21:32] VITALS: BP 116/89
[2023-12-26] MEDS: FEOSOL 325 MG PO (22:34)
[2023-12-27] VITALS: BP 112/68
[2023-12-27] MEDS: ATIVAN 1 MG SL ×6 (00:43→20:38)
[2023-12-27] MEDS: BENADRYL 50.5 MG IV ×5 (00:44→21:25)
[2023-12-27] MEDS: BENADRYL SOLUTION 25 MG TUBE ×6 (01:19→20:55)
--- NOTE | 2023-12-27 01:38 | PTCARENOTE ---
Pt had a dystonic episode that began at 0040. MELONIE Ativan and PRN Gonzálezadryl gtt given, see MAR. Episode concluded around 01:30. resting in bed with call sanchez in reach.
[2023-12-27 04:00] VITALS: BP 126/106
[2023-12-27] MEDS: ZOFRAN 4 MG IV ×3 (04:12→21:40)
[2023-12-27] MEDS: DUONEB 3 ML INH ×4 (04:24→20:59)
[2023-12-27] MEDS: SINEMET 25-100 1.5 TABLET TUBE ×2 (05:26→09:28)
[2023-12-27] MEDS: LIORESAL 10 MG TUBE ×3 (05:27→20:57)
--- NOTE | 2023-12-27 06:23 | PTCARENOTE ---
pt with third dystonia episode for the night. PRN benadryl okay to be given early per covering [employer]. neb treatment given. pt's pulse ox remained 99% during the entire episode, some coughing noted. pt requesting IM epi but patient not having
stridor/bronchospasm. positive support given throughout episode. pt tearful, stating 'Dr. Wakefield wrote in his note that I can get extra IV ativan.' no orders noted. will pass along to dayshift.
[2023-12-27] MEDS: PULMICORT 0.5 MG INH ×2 (07:24→20:59)
[2023-12-27 08:00] VITALS: BP 120/72
--- NOTE | 2023-12-27 08:11 | W.PN.HOSP.TC ---
Addendum entered and electronically signed by Kendra Hagen MD 12/27/23 08:24:
called father twice to update, calls not answered
Original Note:
Today's Communication/Plan
-
see AP
Assessment / Plan
Assessment / Plan
Impression:
Gram-negative bacteremia due to chronic infected PICC line.
Conditions prior to admission:
1. Mast cell activation syndrome.
2. Chronic dystonic reaction.
3. Orthostatic hypotension with postural orthostatic and tachycardia syndrome.
4. Dopa sensitive dystonia.
5. Steroid-induced diabetes.
6. Prior history of deep venous thrombosis and pulmonary embolism.
7. Chronic pain syndrome.
8. Migraine headaches.
9. Gastroesophageal reflux disease.
10. Benzodiazepine and opiate dependence.
11. Restless legs syndrome.
12. Insomnia.
13. History of vocal cord dysfunction.
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
15. Gastroparesis.
16. 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
17. 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
A/P:
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
PICC line removed and PICC line replaced on 09/23
Repeated blood cultures negative on 09/20 but no other cultures obtained
Finished cipro on 10/06/23 (was on 750mg BID)
GJ tube in place
Replaced by interventional radiology on 09/22
Replaced by interventional radiology 11/04 due to concern leakage
IR reconsulted 12/25 due to leakage around GJ tube, bumper tightened by IR and leakage stopped, IR will still plan for repeat exchange in coming week (not sure if this is necessary if leakage stopped)
HX Recurrent Anaphylaxis / Mast Cell Flare Episodes on chronic steroids
Mast Cell Activation Syndrome
DOPA-Responsive Dystonia
follows with Dr. Lizabeth Villanueva at [facility] hematology.
Continue Ativan
cont Gleevac, steroids
Levalbuterol as needed
Continue carbidopa levodopa
prednisone continued
Outpatient IV Benadryl drip at 15 mg/hr upon presentation. As discussed with primary title curative specialist Dr. Mora plan is to slowly taper. Decreased Benadryl drip down to 1 mg an hour on 12/22/23 with plans to stop drip
Multiple conversations with patient almost on a daily basis in regards to goals of care including attempt to wean off Benadryl drip with possibly substitution to oral regimen to facilitate discharge as well as outpatient management. Patient has been
resistant to wean off Benadryl drip completely at this point as per Dr. Kirk
11/26. Multidisciplinary meeting including psychiatry, clinical pharmacy, medicine, nursing.
Patient clinical course along with medication regimen has been reviewed.
With the goal of minimize exposure to IV medications and optimize regimen following changes implemented:
-Daily IV fluids discontinued with plan to monitor oral intake and orthostatics.
-IV Benadryl pushes have been discontinued.
-Lorazepam sublingual as needed order has been discontinued.
-IV lorazepam has been discontinued
Initiated:
Benadryl 25 mg infusion through piggyback will be provided over 10 minutes for breakthrough dystonic attack.
Benadryl p.o. 25 mg will be scheduled every 4 hours.
Lorazepam sublingual 1 mg with the scheduled while awake every 4 hours.
Hydromorphone p.o. 8 mg Q6H PRN will be continued for severe pain along with Suboxone.
12/02.
Multidisciplinary discussion involving nursing, primary service, psychiatry, pharmacy, case management
Plan is to continue current care including intravenous Benadryl drip wean. Schedule below:
Diphenhydramine continuous infusion taper schedule Q72hr
12/18 @1300 � 8 @1259 � 2MG/HR
12/21 @1300 � 8 @1259 � 1MG/HR
8/9 @1300 � instead of stopping infusion, would cont at 0.5 mg/hr and plan to further decrease to 0.25 mg/hr starting 12/27
Can consider increasing diphenhydramine PO up to max 300mg/day IF NEEDED. Would recommend increasing if episodes increase.
Current dose is 25 mg Q4H via tube, would increase to 37.5mg Q4H IF NEEDED, may need some increase as she comes off the drip today 12/24
dystonia/movement disorder-patient apparently has dystonic features with her mast cell activation syndrome.
could not find in literature as a routine clinical presentation but according to patient apparently this is very unusual feature which was noted in few other patients.
She was on IV Benadryl pump at 15 mg/h at home.
-baclofen continued
-sinemet continued
-episodes with vasovagal response when trying to have a BM- start standing miralax and colace BID--now saying she soils herself with coughing episodes
Chronic pain syndrome on high doses of narcotics (chronic opioid use with dependence) including p.o. Dilaudid and Suboxone at home.
Again unclear the source of her pain.
Follow-up with usual senior project controls specialist after discharge.
GERD
-famotidine continued
-acipHex continued
-simethicone continued
iron def anemia
-ferrous sulfate continued
hxt of tachycardia
-EKG with sinus tachycardia
-propranolol continued
Chronic Nausea / Esophageal Dysmotility/gastroparesis
History GJ tube
-Continue diet as tolerated.
-Continue G-tube to gravity for chronic nausea.
-Meds via J-tube.
-Zofran every 8 hours as needed
-Continue Pepcid
-emend continued
-PEG tube site without any signs of cellulitis. CT of the abdomen pelvis shows no subcutaneous collection around the PEG tube and it is in place.
Acute fractures of the left 6 anterolateral 6th and 7th ribs
-Suspect from recent fall on 10/03
-6/9 complains of pain on the posterolateral lower ribs
-Continue lidocaine patch, heating packs
Steroid-Induced DM-II
She remains on steady dose of prednisone- has cushingoid features on physical exam
Blood glucose remains marginal
Monitor oral intake
Reduce Lantus and NovoLog AC
Continue serial Accu-Cheks with basal bolus protocol.
s/p fall overnight 10/03-10/04
imaging negative for bleed or fracture
Steroid-Induced Osteoporosis
- PT / OT evaluations.
allergy induced asthma
chronic hypoxic respiratory failure on O2
-albuterol continued
-budesonide continued
-cetirizine continued
-cromolyn continued
Thrush
Completed course of clotrimazole Troches for thrush
Migraine Hx
ODT Nurtec as needed
Restless leg syndrome
-Continue baclofen
History of DVT/PE
-Takes subcu Lovenox 100 mg twice daily
Left great toe inflammation/edema, likely due to ingrown toenail
Discussed with podiatry, recommend outpatient follow-up for possible first great toe toenail
Patient declines Keflex, will order wound care and Bactroban
DNR on admission
Disposition: Discussion with primary title curative specialist Dr. Ethan Villanueva on 10/09. Discussed possibility of attempting weaning Benadryl drip likely could be done as outpatient. With current family social situation, unfortunately there is no options
for disposition other than home on IV infusion. Possibility of a transfer to [facility] discussed as well, although according to Dr. Villanueva hospital administration declined services due to complexity. Also discussed possibility of
transfer to tertiary center ([facility] declined in the past).
10/[address] Villanueva over the phone as well as [facility] [place] transfer center.
Complex patient. Attempt to wean off Benadryl drip over the last 2 weeks with persistent dystonic episodes.
While patient is relatively stable with her current condition, given complex clinical picture requiring multi disciplinary approach not limited to medicine, hematology, allergology, as well as neuropsychiatric assessment, patient would be better
served at a tertiary facility. Patient was accepted to [facility] for transfer, but hospital administration denied her transfer due to complexity (discussed with patient who is aware)
Anticipated Discharge: 24 - 48 hours
Subjective/Interval History
-
Date of Service: December 27, 2023
Objective Data
-
Vital Signs:
Vital Signs
Temp Pulse Resp BP Pulse Ox
36.5 C 107 18 126/106 96
12/27/23 03:29 12/27/23 07:29 12/27/23 07:29 12/27/23 04:00 12/27/23 07:29
I&O
12/26/23 12/27/23 12/28/23
06:59 06:59 06:59
Intake Total 770 / 770 660 / 660
Output Total 1950 / 1950
Balance 770 / 770 -1290 / -1290
Review of Systems
-
All other systems: Reviewed and negative
Physical Exam
-
General: Well Developed, Well Nourished, Conversant, Appears Chronically Ill and Other (cushingoid features)
HEENT: Normocephalic, Atraumatic and Oxygen (chronic O2 dependent on 2L NC )
Respiratory: Clear to Auscultation and Non Labored Respirations; Negative Wheezes, Rales, Rhonchi or Accessory Resp Muscle Use
Cardiac: Regular Rhythm, S1/S2 and Tachycardic (chronic); Negative Murmur
GI: Soft, Nontender, Nondistended and Normal Bowel Sounds
Musculoskeletal: No Clubbing and No Cyanosis; Negative No Edema
Neuro: Awake and Alert
Psych: Calm
Data Reviewed
-
Labs: Labs Reviewed by me
[2023-12-27] MEDS: LOVENOX 90 MG SC ×2 (09:27→20:42)
[2023-12-27] MEDS: GASTROCROM 300 MG PO ×4 (09:29→20:56)
[2023-12-27] MEDS: HYDREA 500 MG PO ×2 (09:29→20:40)
[2023-12-27] MEDS: DELTASONE 10 MG TUBE ×2 (09:31→20:39)
[2023-12-27] MEDS: CLARITIN 10 MG TUBE (09:32)
[2023-12-27] MEDS: SUBUTEX 2 MG SL ×4 (09:32→20:58)
[2023-12-27] MEDS: NSS (PRESERVATIVE FREE) 6 ML IV ×2 (09:33→20:45)
[2023-12-27] MEDS: PEPCID 40 MG IV ×2 (09:33→20:45)
[2023-12-27] MEDS: COLACE 100 MG PO ×2 (09:34→20:38)
[2023-12-27] MEDS: INDERAL 10 MG TUBE ×3 (09:34→20:56)
[2023-12-27] MEDS: MIRALAX 17 GRAMS TUBE (09:36)
[2023-12-27] MEDS: NON-FORMULARY ITEM 1 MG PO ×3 (09:36→20:41)
[2023-12-27] MEDS: ZADITOR 1 DROP BOTH EYES ×2 (09:36→20:54)
[2023-12-27] MEDS: NON-FORMULARY ITEM 1 UNIT PO ×2 (09:37→20:43)
[2023-12-27] MEDS: NOVOLOG FLEXPEN-LOW RESISTANCE SC ×3 (09:40→16:10)
[2023-12-27] MEDS: BACTROBAN 2% OINTMENT 1 APPLIC TOPICAL ×3 (09:40→20:55)
[2023-12-27] MEDS: LANTUS 0.1 UNITS SC (09:40)
[2023-12-27] MEDS: DESENEX/MITRAZOL/ZEASORB 1 APPLIC TOPICAL ×2 (09:41→20:39)
[2023-12-27] MEDS: LIDOCAINE 4% PATCH 1 PATCH TOPICAL (09:42)
[2023-12-27] MEDS: NON-FORMULARY ITEM NASAL (09:42)
[2023-12-27 09:43] LABS: Glucose - Point of Care 93 mg/dl (70-99)
[2023-12-27] MEDS: NOVOLOG FLEXPEN SC ×2 (10:00→14:21)
--- NOTE | 2023-12-27 10:22 | PTCARENOTE ---
Pt AAOx3 quiet today while giving meds Mary had ab=n episode meds given as ordered,
[2023-12-27 12:00] VITALS: BP 102/88
[2023-12-27] MEDS: VITAMIN B1 100 MG TUBE (12:32)
[2023-12-27] MEDS: TYLENOL 650 MG PO (12:39)
[2023-12-27 12:57] LABS: Glucose - Point of Care 115 mg/dl (70-99)
[2023-12-27] MEDS: SINEMET 25-100 2 TABLET TUBE ×2 (14:19→17:04)
[2023-12-27] MEDS: NON-FORMULARY ITEM 2 MG PO (14:20)
--- NOTE | 2023-12-27 15:10 | PTCARENOTE ---
Pt had another episode
[2023-12-27 16:00] VITALS: BP 110/88
[2023-12-27] MEDS: ZYRTEC 10 MG TUBE ×2 (16:07→20:58)
[2023-12-27] MEDS: NOVOLOG FLEXPEN 3 UNITS SC (16:09)
[2023-12-27] MEDS: BENADRYL 50 MG IV (16:13)
[2023-12-27 16:22] LABS: Glucose - Point of Care 116 mg/dl (70-99)
[2023-12-27 20:00] VITALS: BP 105/71
[2023-12-27] MEDS: FEOSOL 325 MG PO (20:56)
[2023-12-27 21:20] LABS: Glucose - Point of Care 122 mg/dl (70-99)
[2023-12-28] VITALS: BP 105/69
[2023-12-28] MEDS: ATIVAN 1 MG SL ×6 (01:33→21:11)
[2023-12-28] MEDS: BENADRYL SOLUTION 25 MG TUBE ×6 (01:33→21:08)
[2023-12-28] MEDS: BENADRYL 50.5 MG IV ×3 (05:33→21:08)
[2023-12-28] MEDS: SINEMET 25-100 1.5 TABLET TUBE ×2 (05:44→10:27)
[2023-12-28] MEDS: ZOFRAN 4 MG IV ×2 (05:44→13:54)
[2023-12-28] MEDS: LIORESAL 10 MG TUBE ×3 (05:44→21:12)
[2023-12-28] MEDS: DUONEB 3 ML INH ×3 (07:35→19:47)
[2023-12-28] MEDS: PULMICORT 0.5 MG INH ×2 (07:35→19:47)
--- NOTE | 2023-12-28 07:45 | W.PN.HOSP.TC ---
Today's Communication/Plan
-
see A/P
Assessment / Plan
Assessment / Plan
Impression:
Gram-negative bacteremia due to chronic infected PICC line.
Conditions prior to admission:
1. Mast cell activation syndrome.
2. Chronic dystonic reaction.
3. Orthostatic hypotension with postural orthostatic and tachycardia syndrome.
4. Dopa sensitive dystonia.
5. Steroid-induced diabetes.
6. Prior history of deep venous thrombosis and pulmonary embolism.
7. Chronic pain syndrome.
8. Migraine headaches.
9. Gastroesophageal reflux disease.
10. Benzodiazepine and opiate dependence.
11. Restless legs syndrome.
12. Insomnia.
13. History of vocal cord dysfunction.
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
15. Gastroparesis.
16. 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
17. 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
A/P:
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
PICC line removed and PICC line replaced on 09/23
Repeated blood cultures negative on 09/20 but no other cultures obtained
Finished cipro on 10/06/23 (was on 750mg BID)
GJ tube in place
Replaced by interventional radiology on 09/22
Replaced by interventional radiology 11/04 due to concern leakage
IR reconsulted 12/25 due to leakage around GJ tube, bumper tightened by IR and leakage stopped, IR will still plan for repeat exchange in coming week (not sure if this is necessary if leakage stopped)
HX Recurrent Anaphylaxis / Mast Cell Flare Episodes on chronic steroids
Mast Cell Activation Syndrome
DOPA-Responsive Dystonia
follows with Dr. Lizabeth Villanueva at [facility] hematology.
Continue Ativan
cont Gleevac, steroids
Levalbuterol as needed
Continue carbidopa levodopa
prednisone continued
Outpatient IV Benadryl drip at 15 mg/hr upon presentation. As discussed with primary cash management clerk Dr. Mora plan is to slowly taper.
Multiple conversations with patient almost on a daily basis in regards to goals of care including attempt to wean off Benadryl drip with possibly substitution to oral regimen to facilitate discharge as well as outpatient management. Patient has been
resistant to wean off Benadryl drip completely at this point as per Dr. Kirk
11/26. Multidisciplinary meeting including psychiatry, clinical pharmacy, medicine, nursing.
Patient clinical course along with medication regimen has been reviewed.
With the goal of minimize exposure to IV medications and optimize regimen following changes implemented:
-Daily IV fluids discontinued with plan to monitor oral intake and orthostatics.
-IV Benadryl pushes have been discontinued.
-Lorazepam sublingual as needed order has been discontinued.
-IV lorazepam has been discontinued
Initiated:
Benadryl 25 mg infusion through piggyback will be provided over 10 minutes for breakthrough dystonic attack.
Benadryl p.o. 25 mg will be scheduled every 4 hours.
Lorazepam sublingual 1 mg with the scheduled while awake every 4 hours.
Hydromorphone p.o. 8 mg Q6H PRN will be continued for severe pain along with Suboxone.
12/02.
Multidisciplinary discussion involving nursing, primary service, psychiatry, pharmacy, case management
Plan is to continue current care including intravenous Benadryl drip wean. Schedule below:
Diphenhydramine continuous infusion taper schedule Q72hr
12/18 @1300 � 8 @1259 � 2MG/HR
12/21 @1300 � 12/24 @1259 � 1MG/HR
12/25 @12/27 @0.5 mg/hr, and plan to further decrease to 0.25 mg/hr starting 12/28
Can consider increasing diphenhydramine PO up to max 300mg/day IF NEEDED. Would recommend increasing if episodes increase.
Current dose is 25 mg Q4H via tube, would increase to 37.5mg Q4H IF NEEDED, may need some increase as she comes off the drip today 12/24
dystonia/movement disorder-patient apparently has dystonic features with her mast cell activation syndrome.
could not find in literature as a routine clinical presentation but according to patient apparently this is very unusual feature which was noted in few other patients.
She was on IV Benadryl pump at 15 mg/h at home.
-baclofen continued
-sinemet continued
-episodes with vasovagal response when trying to have a BM- start standing miralax and colace BID--now saying she soils herself with coughing episodes
Chronic pain syndrome on high doses of narcotics (chronic opioid use with dependence) including p.o. Dilaudid and Suboxone at home.
Again unclear the source of her pain.
Follow-up with usual program specialist after discharge.
GERD
-famotidine continued
-acipHex continued
-simethicone continued
iron def anemia
-ferrous sulfate continued
hxt of tachycardia
-EKG with sinus tachycardia
-propranolol continued
Chronic Nausea / Esophageal Dysmotility/gastroparesis
History GJ tube
-Continue diet as tolerated.
-Continue G-tube to gravity for chronic nausea.
-Meds via J-tube.
-Zofran every 8 hours as needed
-Continue Pepcid
-emend continued
-PEG tube site without any signs of cellulitis. CT of the abdomen pelvis shows no subcutaneous collection around the PEG tube and it is in place.
Acute fractures of the left 6 anterolateral 6th and 7th ribs
-Suspect from recent fall on 10/03
-10/25 complains of pain on the posterolateral lower ribs
-Continue lidocaine patch, heating packs
Steroid-Induced DM-II
She remains on steady dose of prednisone- has cushingoid features on physical exam
Blood glucose remains marginal
Monitor oral intake
Reduce Lantus and NovoLog AC
Continue serial Accu-Cheks with basal bolus protocol.
s/p fall overnight 10/03-10/04
imaging negative for bleed or fracture
Steroid-Induced Osteoporosis
- PT / OT evaluations.
allergy induced asthma
chronic hypoxic respiratory failure on O2
-albuterol continued
-budesonide continued
-cetirizine continued
-cromolyn continued
Thrush
Completed course of clotrimazole Troches for thrush
Migraine Hx
ODT Nurtec as needed
Restless leg syndrome
-Continue baclofen
History of DVT/PE
-Takes subcu Lovenox 100 mg twice daily
Left great toe inflammation/edema, likely due to ingrown toenail
Discussed with podiatry, recommend outpatient follow-up for possible first great toe toenail
Patient declines Keflex, will order wound care and Bactroban
DNR on admission
Disposition: Discussion with primary cash management clerk Dr. Ethan Villanueva on 10/09. Discussed possibility of attempting weaning Benadryl drip likely could be done as outpatient. With current family social situation, unfortunately there is no options
for disposition other than home on IV infusion. Possibility of a transfer to [facility] discussed as well, although according to Dr. Villanueva hospital administration declined services due to complexity. Also discussed possibility of
transfer to tertiary center ([facility] declined in the past).
10/[address] Villanueva over the phone as well as [facility] transfer center.
Complex patient. Attempt to wean off Benadryl drip over the last 2 weeks with persistent dystonic episodes.
While patient is relatively stable with her current condition, given complex clinical picture requiring multi disciplinary approach not limited to medicine, hematology, allergology, as well as neuropsychiatric assessment, patient would be better
served at a tertiary facility. Patient was accepted to [facility] for transfer, but hospital administration denied her transfer due to complexity (discussed with patient who is aware)
Anticipated Discharge: > 48 hours
Subjective/Interval History
-
Date of Service: December 28, 2023
Objective Data
-
Vital Signs:
Vital Signs
Temp Pulse Resp BP Pulse Ox
36.8 C 98 18 105/69 95
12/28/23 03:14 12/28/23 07:39 12/28/23 07:39 12/28/23 00:00 12/27/23 21:03
I&O
12/27/23 12/28/23 12/29/23
06:59 06:59 06:59
Intake Total 660 / 660 150 / 150
Output Total 1950 / 1950 2800 / 2800
Balance -1290 / -1290 -2650 / -2650
Review of Systems
-
All other systems: Reviewed and negative
Physical Exam
-
General: Well Developed, Well Nourished, Conversant, Appears Chronically Ill and Other (cushingoid features)
HEENT: Normocephalic, Atraumatic and Oxygen (chronic O2 dependent on 2L NC )
Respiratory: Clear to Auscultation and Non Labored Respirations; Negative Wheezes, Rales, Rhonchi or Accessory Resp Muscle Use
Cardiac: Regular Rhythm, S1/S2 and Tachycardic (intermittent and chronic); Negative Murmur
GI: Soft, Nontender, Nondistended and Normal Bowel Sounds
Musculoskeletal: No Clubbing and No Cyanosis; Negative No Edema
Neuro: Awake and Alert
Psych: Calm
[2023-12-28 08:20] LABS: Glucose - Point of Care 81 mg/dl (70-99)
[2023-12-28] MEDS: LIDOCAINE 4% PATCH 1 PATCH TOPICAL (09:27)
[2023-12-28] MEDS: LOVENOX 90 MG SC ×2 (09:27→21:08)
[2023-12-28] MEDS: GASTROCROM 300 MG PO ×4 (09:28→21:07)
[2023-12-28] MEDS: NSS (PRESERVATIVE FREE) 6 ML IV ×2 (09:28→21:10)
[2023-12-28] MEDS: LANTUS 0.1 UNITS SC (09:29)
[2023-12-28] MEDS: PEPCID 40 MG IV ×2 (09:29→21:12)
[2023-12-28] MEDS: HYDREA 500 MG PO ×2 (09:31→21:13)
[2023-12-28] MEDS: DELTASONE 10 MG TUBE ×2 (09:31→21:13)
[2023-12-28] MEDS: VITAMIN B1 100 MG TUBE (09:32)
[2023-12-28] MEDS: COLACE 100 MG PO ×2 (09:32→21:12)
[2023-12-28] MEDS: SUBUTEX 2 MG SL ×4 (09:33→21:11)
[2023-12-28] MEDS: INDERAL 10 MG TUBE ×3 (09:33→21:12)
[2023-12-28] MEDS: CLARITIN 10 MG TUBE (09:34)
[2023-12-28] MEDS: NOVOLOG FLEXPEN SC ×2 (09:35→10:43)
[2023-12-28] MEDS: BACTROBAN 2% OINTMENT 1 APPLIC TOPICAL ×3 (09:36→21:17)
[2023-12-28] MEDS: ZADITOR 1 DROP BOTH EYES ×2 (09:36→21:14)
[2023-12-28] MEDS: NOVOLOG FLEXPEN-LOW RESISTANCE SC ×3 (10:12→16:50)
[2023-12-28] MEDS: NON-FORMULARY ITEM 80 MG PO (10:13)
[2023-12-28] MEDS: NON-FORMULARY ITEM 1 MG PO ×2 (10:14→21:15)
[2023-12-28] MEDS: NON-FORMULARY ITEM 1 UNIT PO ×2 (10:15→21:14)
[2023-12-28] MEDS: MIRALAX 17 GRAMS TUBE (10:16)
[2023-12-28] MEDS: DESENEX/MITRAZOL/ZEASORB 1 APPLIC TOPICAL ×2 (10:17→21:13)
[2023-12-28] MEDS: NON-FORMULARY ITEM NASAL (10:18)
[2023-12-28 11:38] LABS: Glucose - Point of Care 103 mg/dl (70-99)
[2023-12-28] MEDS: NOVOLOG FLEXPEN 3 UNITS SC ×2 (11:43→16:50)
[2023-12-28] MEDS: SINEMET 25-100 2 TABLET TUBE ×2 (13:35→17:53)
[2023-12-28] MEDS: NON-FORMULARY ITEM 200 MG PO (13:36)
[2023-12-28] MEDS: TYLENOL 650 MG PO (13:42)
--- NOTE | 2023-12-28 16:27 | CHAP ---
Mary was not feeling well at the time of our visit (10:20.) Emotional support briefly provided, along with a Bible. Stopped in again after 3pm, but the situation had not improved.
[2023-12-28] MEDS: BENADRYL IV (16:51)
[2023-12-28 17:00] LABS: Glucose - Point of Care 110 mg/dl (70-99)
[2023-12-28] MEDS: ZYRTEC 10 MG TUBE ×2 (17:53→21:12)
[2023-12-28 17:56] LABS: Glucose - Point of Care 121 mg/dl (70-99)
[2023-12-28] MEDS: NON-FORMULARY ITEM VAG (17:58)
[2023-12-28 21:05] VITALS: BP 108/80
[2023-12-28] MEDS: FEOSOL 325 MG PO (21:12)
[2023-12-28 21:49] LABS: Glucose - Point of Care 129 mg/dl (70-99)
[2023-12-29] VITALS: BP 108/74
[2023-12-29] MEDS: BENADRYL 50.5 MG IV ×4 (01:07→21:14)
[2023-12-29] MEDS: ZOFRAN 4 MG IV ×3 (01:08→16:26)
[2023-12-29] MEDS: BENADRYL SOLUTION 25 MG TUBE ×6 (01:08→21:29)
[2023-12-29] MEDS: ATIVAN 1 MG SL ×6 (01:08→21:20)
[2023-12-29 04:00] VITALS: BP 96/57
[2023-12-29] MEDS: SINEMET 25-100 1.5 TABLET TUBE ×2 (05:27→09:17)
[2023-12-29] MEDS: LIORESAL 10 MG TUBE ×3 (05:27→21:28)
[2023-12-29] MEDS: PULMICORT 0.5 MG INH ×2 (07:23→19:17)
[2023-12-29 08:00] VITALS: BP 114/77
--- NOTE | 2023-12-29 09:00 | PTCARENOTE ---
Patient received from expeller worker. Patient resting comfortably in bed. AAO, VSS. Two events noted overnight and treated with PRN Benadryl. No complaints of pain at this time. Currently on 2L N/C for HS, will take off during the day to Room Air
as tolerated. Benadryl gtt at 0.5mg through PICC, weaning down to 0.25mg today. Purewick in place. Call sanchez in reach.
[2023-12-29] MEDS: GASTROCROM 300 MG PO ×4 (09:13→21:27)
[2023-12-29] MEDS: LOVENOX 90 MG SC ×2 (09:15→21:25)
[2023-12-29 09:16] LABS: Glucose - Point of Care 83 mg/dl (70-99)
[2023-12-29] MEDS: LIDOCAINE 4% PATCH 1 PATCH TOPICAL (09:16)
[2023-12-29] MEDS: MIRALAX 17 GRAMS TUBE (09:16)
[2023-12-29] MEDS: VITAMIN B1 100 MG TUBE (09:17)
[2023-12-29] MEDS: DELTASONE 10 MG TUBE ×2 (09:17→21:26)
[2023-12-29] MEDS: SUBUTEX 2 MG SL ×4 (09:17→21:24)
[2023-12-29] MEDS: CLARITIN 10 MG TUBE (09:17)
[2023-12-29] MEDS: COLACE 100 MG PO ×2 (09:17→21:26)
[2023-12-29] MEDS: HYDREA 500 MG PO ×2 (09:18→21:26)
[2023-12-29] MEDS: INDERAL 10 MG TUBE ×3 (09:18→21:27)
[2023-12-29] MEDS: NON-FORMULARY ITEM 80 MG PO (09:19)
[2023-12-29] MEDS: NON-FORMULARY ITEM 1 UNIT PO ×2 (09:20→21:29)
[2023-12-29] MEDS: NON-FORMULARY ITEM 1 MG PO ×2 (09:21→21:30)
[2023-12-29] MEDS: DESENEX/MITRAZOL/ZEASORB 1 APPLIC TOPICAL ×2 (09:22→21:28)
[2023-12-29] MEDS: PEPCID 40 MG IV ×2 (09:23→21:27)
[2023-12-29] MEDS: BACTROBAN 2% OINTMENT 1 APPLIC TOPICAL ×3 (09:23→21:32)
--- NOTE | 2023-12-29 09:23 | CM ---
Patient seen at bedside with physician. Patient requested COVID testing. Per chart review Patient discharge plan is for discharge home with aides/nursing from [facility]. Patient states that she is planning to leave the week of 01/04 and her
new apartment is ready 01/09. CM spoke with Roslyn from [facility] and she requested discharge summary to confirm what patient will need at discharge, specifically if patient will need IV medications. CM will continue to follow for Discharge planning.
Plan; home with VN/aides pending physician assessment
[2023-12-29] MEDS: NON-FORMULARY ITEM NASAL (09:24)
[2023-12-29] MEDS: NSS (PRESERVATIVE FREE) 6 ML IV ×2 (09:24→21:28)
[2023-12-29] MEDS: ZADITOR 1 DROP BOTH EYES ×2 (09:24→21:25)
[2023-12-29] MEDS: LANTUS 0.1 UNITS SC (09:43)
[2023-12-29] MEDS: NOVOLOG FLEXPEN SC (09:43)
[2023-12-29] MEDS: NOVOLOG FLEXPEN-LOW RESISTANCE SC ×3 (09:44→18:15)
--- NOTE | 2023-12-29 10:05 | W.PN.HOSP.TC ---
Today's Communication/Plan
-
Covid test per pt request
d/c planning
Assessment / Plan
Assessment / Plan
12/29/23--pt wants Covid test--no other changes to the plan--Dr. Kirk to resume care tomorrow 12/29
Impression:
Gram-negative bacteremia due to chronic infected PICC line.
Conditions prior to admission:
1. Mast cell activation syndrome.
2. Chronic dystonic reaction.
3. Orthostatic hypotension with postural orthostatic and tachycardia syndrome.
4. Dopa sensitive dystonia.
5. Steroid-induced diabetes.
6. Prior history of deep venous thrombosis and pulmonary embolism.
7. Chronic pain syndrome.
8. Migraine headaches.
9. Gastroesophageal reflux disease.
10. Benzodiazepine and opiate dependence.
11. Restless legs syndrome.
12. Insomnia.
13. History of vocal cord dysfunction.
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
15. Gastroparesis.
16. 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
17. 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
A/P:
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
PICC line removed and PICC line replaced on 09/23
Repeated blood cultures negative on 09/20 but no other cultures obtained
Finished cipro on 10/06/23 (was on 750mg BID)
GJ tube in place
Replaced by interventional radiology on 09/22
Replaced by interventional radiology 11/04 due to concern leakage
IR reconsulted 12/25 due to leakage around GJ tube, bumper tightened by IR and leakage stopped, IR will still plan for repeat exchange in coming week (not sure if this is necessary if leakage stopped)
HX Recurrent Anaphylaxis / Mast Cell Flare Episodes on chronic steroids
Mast Cell Activation Syndrome
DOPA-Responsive Dystonia
follows with Dr. Lizabeth Villanueva at [facility] hematology.
Continue Ativan
cont Gleevac, steroids
Levalbuterol as needed
Continue carbidopa levodopa
prednisone continued
Outpatient IV Benadryl drip at 15 mg/hr upon presentation. As discussed with primary labor contractor Dr. Mora plan is to slowly taper.
Multiple conversations with patient almost on a daily basis in regards to goals of care including attempt to wean off Benadryl drip with possibly substitution to oral regimen to facilitate discharge as well as outpatient management. Patient has been
resistant to wean off Benadryl drip completely at this point as per Dr. Kirk
11/26. Multidisciplinary meeting including psychiatry, clinical pharmacy, medicine, nursing.
Patient clinical course along with medication regimen has been reviewed.
With the goal of minimize exposure to IV medications and optimize regimen following changes implemented:
-Daily IV fluids discontinued with plan to monitor oral intake and orthostatics.
-IV Benadryl pushes have been discontinued.
-Lorazepam sublingual as needed order has been discontinued.
-IV lorazepam has been discontinued
Initiated:
Benadryl 25 mg infusion through piggyback will be provided over 10 minutes for breakthrough dystonic attack.
Benadryl p.o. 25 mg will be scheduled every 4 hours.
Lorazepam sublingual 1 mg with the scheduled while awake every 4 hours.
Hydromorphone p.o. 8 mg Q6H PRN will be continued for severe pain along with Suboxone.
12/02.
Multidisciplinary discussion involving nursing, primary service, psychiatry, pharmacy, case management
Plan is to continue current care including intravenous Benadryl drip wean. Schedule below:
Diphenhydramine continuous infusion taper schedule Q72hr
12/18 @1300 � 8/ @1259 � 2MG/HR
12/21 @1300 � 8 @1259 � 1MG/HR
12/25 @12/27 @0.5 mg/hr, and plan to further decrease to 0.25 mg/hr starting 12/28
Can consider increasing diphenhydramine PO up to max 300mg/day IF NEEDED. Would recommend increasing if episodes increase.
Current dose is 25 mg Q4H via tube, would increase to 37.5mg Q4H IF NEEDED, may need some increase as she comes off the drip today 12/24
dystonia/movement disorder-patient apparently has dystonic features with her mast cell activation syndrome.
could not find in literature as a routine clinical presentation but according to patient apparently this is very unusual feature which was noted in few other patients.
She was on IV Benadryl pump at 15 mg/h at home.
-baclofen continued
-sinemet continued
-episodes with vasovagal response when trying to have a BM- start standing miralax and colace BID--now saying she soils herself with coughing episodes
Chronic pain syndrome on high doses of narcotics (chronic opioid use with dependence) including p.o. Dilaudid and Suboxone at home.
Again unclear the source of her pain.
Follow-up with usual histology specialist after discharge.
GERD
-famotidine continued
-acipHex continued
-simethicone continued
iron def anemia
-ferrous sulfate continued
hxt of tachycardia
-EKG with sinus tachycardia
-propranolol continued
Chronic Nausea / Esophageal Dysmotility/gastroparesis
History GJ tube
-Continue diet as tolerated.
-Continue G-tube to gravity for chronic nausea.
-Meds via J-tube.
-Zofran every 8 hours as needed
-Continue Pepcid
-emend continued
-PEG tube site without any signs of cellulitis. CT of the abdomen pelvis shows no subcutaneous collection around the PEG tube and it is in place.
Acute fractures of the left 6 anterolateral 6th and 7th ribs
-Suspect from recent fall on 10/03
-10/25 complains of pain on the posterolateral lower ribs
-Continue lidocaine patch, heating packs
Steroid-Induced DM-II
She remains on steady dose of prednisone- has cushingoid features on physical exam
Blood glucose remains marginal
Monitor oral intake
Reduce Lantus and NovoLog AC
Continue serial Accu-Cheks with basal bolus protocol.
s/p fall overnight 10/03-10/04
imaging negative for bleed or fracture
Steroid-Induced Osteoporosis
- PT / OT evaluations.
allergy induced asthma
chronic hypoxic respiratory failure on O2
-albuterol continued
-budesonide continued
-cetirizine continued
-cromolyn continued
Thrush
Completed course of clotrimazole Troches for thrush
Migraine Hx
ODT Nurtec as needed
Restless leg syndrome
-Continue baclofen
History of DVT/PE
-Takes subcu Lovenox 100 mg twice daily
Left great toe inflammation/edema, likely due to ingrown toenail
Discussed with podiatry, recommend outpatient follow-up for possible first great toe toenail
Patient declines Keflex, will order wound care and Bactroban
DNR on admission
Disposition: Discussion with primary labor contractor Dr. Ethan Villanueva on 10/09. Discussed possibility of attempting weaning Benadryl drip likely could be done as outpatient. With current family social situation, unfortunately there is no options
for disposition other than home on IV infusion. Possibility of a transfer to [facility] discussed as well, although according to Dr. Villanueva hospital administration declined services due to complexity. Also discussed possibility of
transfer to tertiary center ([facility] declined in the past).
10/[address] Villanueva over the phone as well as [facility] transfer center.
Complex patient. Attempt to wean off Benadryl drip over the last 2 weeks with persistent dystonic episodes.
While patient is relatively stable with her current condition, given complex clinical picture requiring multi disciplinary approach not limited to medicine, hematology, allergology, as well as neuropsychiatric assessment, patient would be better
served at a tertiary facility. Patient was accepted to [facility] for transfer, but hospital administration denied her transfer due to complexity (discussed with patient who is aware)
Anticipated Discharge: > 48 hours
Subjective/Interval History
-
Date of Service: December 29, 2023
pt c/o stuffiness--wants Covid test
Objective Data
-
Vital Signs:
max temp for 24 hours
12/28/23
19:33
Temp 98.5 F
Vital Signs
Temp Pulse Resp BP Pulse Ox
98.2 F 99 23 114/77 98
12/29/23 08:42 12/29/23 09:18 12/29/23 07:25 12/29/23 09:18 12/29/23 07:25
I&O
12/28/23 12/29/23 12/30/23
06:59 06:59 06:59
Intake Total 150 / 150 1110 / 1110
Output Total 2800 / 2800 3000 / 3000
Balance -2650 / -2650 -1890 / -1890
Review of Systems
-
All other systems: Reviewed and negative
Physical Exam
-
General: Well Developed, Well Nourished and No Apparent Distress
HEENT: Normocephalic, Atraumatic and Other (round facies); Negative Oxygen
Respiratory: Clear to Auscultation; Negative Wheezes or Rhonchi
Cardiac: Regular Rhythm and S1/S2; Negative Murmur
GI: Soft, Nontender, Nondistended, Normal Bowel Sounds and Peg Tube
Musculoskeletal: No Clubbing, No Cyanosis and No Edema
Neuro: Awake
Psych: Calm
[2023-12-29 12:05] VITALS: BP 125/74
[2023-12-29 12:41] LABS: Glucose - Point of Care 124 mg/dl (70-99)
[2023-12-29] MEDS: SINEMET 25-100 2 TABLET TUBE ×2 (14:40→18:23)
[2023-12-29] MEDS: NON-FORMULARY ITEM 200 MG PO (14:40)
[2023-12-29] MEDS: BENADRYL 50 MG IV (14:41)
[2023-12-29] MEDS: NOVOLOG FLEXPEN 3 UNITS SC ×2 (14:41→18:15)
[2023-12-29 16:00] VITALS: BP 109/92
[2023-12-29] MEDS: BENADRYL 100 MG IV (16:20)
[2023-12-29] MEDS: ZYRTEC 10 MG TUBE ×2 (16:25→21:28)
[2023-12-29] MEDS: DUONEB 3 ML INH ×2 (16:28→19:19)
[2023-12-29] MEDS: NON-FORMULARY ITEM 1 UNIT VAG (18:10)
[2023-12-29 18:25] LABS: Glucose - Point of Care 99 mg/dl (70-99)
[2023-12-29 20:00] VITALS: BP 112/80
[2023-12-29] MEDS: FEOSOL 325 MG PO (21:25)
[2023-12-29 21:49] LABS: Glucose - Point of Care 96 mg/dl (70-99)
[2023-12-30] VITALS: BP 116/75
[2023-12-30] MEDS: ATIVAN 1 MG SL ×6 (01:07→21:17)
[2023-12-30] MEDS: BENADRYL SOLUTION 25 MG TUBE ×6 (01:07→21:16)
[2023-12-30] MEDS: TYLENOL 650 MG PO ×2 (01:10→21:28)
[2023-12-30] MEDS: ZOFRAN 4 MG IV ×3 (01:10→21:22)
[2023-12-30 04:00] VITALS: BP 115/77
[2023-12-30] MEDS: LIORESAL 10 MG TUBE ×3 (05:15→21:29)
[2023-12-30] MEDS: SINEMET 25-100 1.5 TABLET TUBE ×2 (05:16→09:26)
--- NOTE | 2023-12-30 06:19 | PTCARENOTE ---
Mary had one episode around 2100 that lasted about 30 minutes. Sp02 WNL and pt able to speak throughout dystonia episode. IVPB Benadryl provided. Pt washed up, changed gown, brushed teeth and changed purewick independently for bedtime. Voiding
adequately, no BM. Tele showing NSR/ST. Tylenol and zofran provided per request for CONTI and nausea. LUE PICC dressing starting to peel; due to be changed today. dressing reinforced. Lumens flushed and patent. Pt appreciative of care. Call sanchez and
tray tables left within reach. Med-sitter at bedside for safety.
[2023-12-30] MEDS: PULMICORT 0.5 MG INH ×2 (07:24→19:34)
[2023-12-30 08:00] VITALS: BP 101/79
[2023-12-30 08:50] LABS: Glucose - Point of Care 108 mg/dl (70-99)
[2023-12-30] MEDS: NOVOLOG FLEXPEN-LOW RESISTANCE SC ×3 (08:54→17:45)
--- NOTE | 2023-12-30 09:00 | PTCARENOTE ---
Patient received from warehouse worker 2nd shift. Patient resting comfortably in bed. AAO, VSS. One event noted overnight and treated with PRN Benadryl. No complaints of pain at this time. Currently on 2L N/C for HS, will take off again during the day to Room
Air as tolerated. Benadryl gtt at 0.25mg through PICC, weaning down to off today. Purewick reamins in place. Call sanchez in reach.
[2023-12-30] MEDS: SUBUTEX 2 MG SL ×4 (09:12→21:21)
[2023-12-30] MEDS: BENADRYL 50.5 MG IV ×3 (09:12→21:19)
[2023-12-30] MEDS: PEPCID 40 MG IV ×2 (09:17→21:26)
[2023-12-30] MEDS: NSS (PRESERVATIVE FREE) 6 ML IV ×2 (09:18→21:27)
[2023-12-30] MEDS: MIRALAX 17 GRAMS TUBE (09:22)
[2023-12-30] MEDS: LOVENOX 90 MG SC ×2 (09:22→21:16)
[2023-12-30] MEDS: NOVOLOG FLEXPEN 3 UNITS SC ×3 (09:23→18:28)
[2023-12-30] MEDS: LANTUS 0.1 UNITS SC (09:23)
[2023-12-30] MEDS: LIDOCAINE 4% PATCH 1 PATCH TOPICAL (09:24)
[2023-12-30] MEDS: CLARITIN 10 MG TUBE (09:25)
[2023-12-30] MEDS: VITAMIN B1 100 MG TUBE (09:25)
[2023-12-30] MEDS: GASTROCROM 300 MG PO ×4 (09:25→21:25)
[2023-12-30] MEDS: HYDREA 500 MG PO ×2 (09:25→21:16)
[2023-12-30] MEDS: ZADITOR 1 DROP BOTH EYES ×2 (09:26→21:16)
[2023-12-30] MEDS: INDERAL 10 MG TUBE ×3 (09:26→21:29)
[2023-12-30] MEDS: COLACE 100 MG PO ×2 (09:26→21:27)
[2023-12-30] MEDS: DELTASONE 10 MG TUBE ×2 (09:26→21:29)
[2023-12-30] MEDS: BACTROBAN 2% OINTMENT 1 APPLIC TOPICAL ×3 (09:27→21:47)
[2023-12-30] MEDS: DESENEX/MITRAZOL/ZEASORB 1 APPLIC TOPICAL ×2 (09:27→21:28)
[2023-12-30] MEDS: NON-FORMULARY ITEM NASAL (09:27)
[2023-12-30] MEDS: NON-FORMULARY ITEM 1 MG PO ×2 (09:36→21:31)
[2023-12-30] MEDS: NON-FORMULARY ITEM 80 MG PO (09:38)
[2023-12-30] MEDS: NON-FORMULARY ITEM 1 UNIT PO ×2 (09:54→21:31)
[2023-12-30 12:00] VITALS: BP 107/75
[2023-12-30 12:12] LABS: Glucose - Point of Care 104 mg/dl (70-99)
[2023-12-30] MEDS: NON-FORMULARY ITEM 200 MG PO (13:34)
[2023-12-30] MEDS: SINEMET 25-100 2 TABLET TUBE ×2 (13:34→17:15)
[2023-12-30 15:51] VITALS: PULSE 115; O2SAT 97
[2023-12-30] MEDS: ZYRTEC 10 MG TUBE ×2 (16:11→21:29)
[2023-12-30 17:33] LABS: Glucose - Point of Care 112 mg/dl (70-99)
--- NOTE | 2023-12-30 18:50 | W.PN.HOSP.TC ---
Today's Communication/Plan
-
Stop Benadryl drip
Continue IV Benadryl for breakthrough dystonic reaction.
Discharge planing
Assessment / Plan
Assessment / Plan
12/29/23--pt wants Covid test--no other changes to the plan--Dr. Kirk to resume care tomorrow 12/29
Impression:
Gram-negative bacteremia due to chronic infected PICC line.
Conditions prior to admission:
1. Mast cell activation syndrome.
2. Chronic dystonic reaction.
3. Orthostatic hypotension with postural orthostatic and tachycardia syndrome.
4. Dopa sensitive dystonia.
5. Steroid-induced diabetes.
6. Prior history of deep venous thrombosis and pulmonary embolism.
7. Chronic pain syndrome.
8. Migraine headaches.
9. Gastroesophageal reflux disease.
10. Benzodiazepine and opiate dependence.
11. Restless legs syndrome.
12. Insomnia.
13. History of vocal cord dysfunction.
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
15. Gastroparesis.
16. 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
17. 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
A/P:
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
PICC line removed and PICC line replaced on 09/23
Repeated blood cultures negative on 09/20 but no other cultures obtained
Finished cipro on 10/06/23 (was on 750mg BID)
GJ tube in place
Replaced by interventional radiology on 09/22
Replaced by interventional radiology 11/04 due to concern leakage
IR reconsulted 12/25 due to leakage around GJ tube, bumper tightened by IR and leakage stopped, IR will still plan for repeat exchange in coming week (not sure if this is necessary if leakage stopped)
HX Recurrent Anaphylaxis / Mast Cell Flare Episodes on chronic steroids
Mast Cell Activation Syndrome
DOPA-Responsive Dystonia
follows with Dr. Lizabeth Villanueva at [facility] hematology.
Continue Ativan
cont Gleevac, steroids
Levalbuterol as needed
Continue carbidopa levodopa
prednisone continued
Outpatient IV Benadryl drip at 15 mg/hr upon presentation. As discussed with primary freelance art director Dr. Mora plan is to slowly taper.
Multiple conversations with patient almost on a daily basis in regards to goals of care including attempt to wean off Benadryl drip with possibly substitution to oral regimen to facilitate discharge as well as outpatient management. Patient has been
resistant to wean off Benadryl drip completely at this point as per Dr. Kirk
11/26. Multidisciplinary meeting including psychiatry, clinical pharmacy, medicine, nursing.
Patient clinical course along with medication regimen has been reviewed.
With the goal of minimize exposure to IV medications and optimize regimen following changes implemented:
-Daily IV fluids discontinued with plan to monitor oral intake and orthostatics.
-IV Benadryl pushes have been discontinued.
-Lorazepam sublingual as needed order has been discontinued.
-IV lorazepam has been discontinued
Initiated:
Benadryl 25 mg infusion through piggyback will be provided over 10 minutes for breakthrough dystonic attack.
Benadryl p.o. 25 mg will be scheduled every 4 hours.
Lorazepam sublingual 1 mg with the scheduled while awake every 4 hours.
Hydromorphone p.o. 8 mg Q6H PRN will be continued for severe pain along with Suboxone.
12/02.
Multidisciplinary discussion involving nursing, primary service, psychiatry, pharmacy, case management
Plan is to continue current care including intravenous Benadryl drip wean. Schedule below:
Diphenhydramine continuous infusion taper schedule Q72hr
12/18 @1300 � 8/ @1259 � 2MG/HR
12/21 @1300 � 8 @1259 � 1MG/HR
12/25 @12/27 @0.5 mg/hr, and plan to further decrease to 0.25 mg/hr starting 12/28
Can consider increasing diphenhydramine PO up to max 300mg/day IF NEEDED. Would recommend increasing if episodes increase.
Current dose is 25 mg Q4H via tube, would increase to 37.5mg Q4H IF NEEDED, may need some increase as she comes off the drip today 12/24
dystonia/movement disorder-patient apparently has dystonic features with her mast cell activation syndrome.
could not find in literature as a routine clinical presentation but according to patient apparently this is very unusual feature which was noted in few other patients.
She was on IV Benadryl pump at 15 mg/h at home.
-baclofen continued
-sinemet continued
-episodes with vasovagal response when trying to have a BM- start standing miralax and colace BID--now saying she soils herself with coughing episodes
Chronic pain syndrome on high doses of narcotics (chronic opioid use with dependence) including p.o. Dilaudid and Suboxone at home.
Again unclear the source of her pain.
Follow-up with usual benefits specialist recruiter after discharge.
GERD
-famotidine continued
-acipHex continued
-simethicone continued
iron def anemia
-ferrous sulfate continued
hxt of tachycardia
-EKG with sinus tachycardia
-propranolol continued
Chronic Nausea / Esophageal Dysmotility/gastroparesis
History GJ tube
-Continue diet as tolerated.
-Continue G-tube to gravity for chronic nausea.
-Meds via J-tube.
-Zofran every 8 hours as needed
-Continue Pepcid
-emend continued
-PEG tube site without any signs of cellulitis. CT of the abdomen pelvis shows no subcutaneous collection around the PEG tube and it is in place.
Acute fractures of the left 6 anterolateral 6th and 7th ribs
-Suspect from recent fall on 10/03
-10/25 complains of pain on the posterolateral lower ribs
-Continue lidocaine patch, heating packs
Steroid-Induced DM-II
She remains on steady dose of prednisone- has cushingoid features on physical exam
Blood glucose remains marginal
Monitor oral intake
Reduce Lantus and NovoLog AC
Continue serial Accu-Cheks with basal bolus protocol.
s/p fall overnight 10/03-10/04
imaging negative for bleed or fracture
Steroid-Induced Osteoporosis
- PT / OT evaluations.
allergy induced asthma
chronic hypoxic respiratory failure on O2
-albuterol continued
-budesonide continued
-cetirizine continued
-cromolyn continued
Thrush
Completed course of clotrimazole Troches for thrush
Migraine Hx
ODT Nurtec as needed
Restless leg syndrome
-Continue baclofen
History of DVT/PE
-Takes subcu Lovenox 100 mg twice daily
Left great toe inflammation/edema, likely due to ingrown toenail
Discussed with podiatry, recommend outpatient follow-up for possible first great toe toenail
Patient declines Keflex, will order wound care and Bactroban
DNR on admission
Disposition: Discussion with primary freelance art director Dr. Ethan Villanueva on 10/09. Discussed possibility of attempting weaning Benadryl drip likely could be done as outpatient. With current family social situation, unfortunately there is no options
for disposition other than home on IV infusion. Possibility of a transfer to [facility] discussed as well, although according to Dr. Villanueva hospital administration declined services due to complexity. Also discussed possibility of
transfer to tertiary center ([facility] declined in the past).
10/[address] Villanueva over the phone as well as [facility] transfer center.
Complex patient. Attempt to wean off Benadryl drip over the last 2 weeks with persistent dystonic episodes.
While patient is relatively stable with her current condition, given complex clinical picture requiring multi disciplinary approach not limited to medicine, hematology, allergology, as well as neuropsychiatric assessment, patient would be better
served at a tertiary facility. Patient was accepted to [facility] for transfer, but hospital administration denied her transfer due to complexity (discussed with patient who is aware)
Anticipated Discharge: > 48 hours
Subjective/Interval History
-
Date of Service: December 30, 2023
Objective Data
-
Vital Signs:
Vital Signs
Temp Pulse Resp BP Pulse Ox
98.1 F 101 13 121/97 97
12/30/23 11:17 12/30/23 16:11 12/30/23 14:00 12/30/23 16:11 12/30/23 07:26
I&O
12/29/23 12/30/23 12/31/23
06:59 06:59 06:59
Intake Total 1110 / 1110 750 / 750
Output Total 3000 / 3000 2150 / 2150 1800 / 1800
Balance -1890 / -1890 -1400 / -1400 -1800 / -1800
Physical Exam
-
General: Well Developed, Well Nourished and No Apparent Distress
HEENT: Normocephalic, Atraumatic and Other (round facies); Negative Oxygen
Respiratory: Clear to Auscultation; Negative Wheezes or Rhonchi
Cardiac: Regular Rhythm and S1/S2; Negative Murmur
GI: Soft, Nontender, Nondistended, Normal Bowel Sounds and Peg Tube
Musculoskeletal: No Clubbing, No Cyanosis and No Edema
Neuro: Awake
Psych: Calm
[2023-12-30] MEDS: DUONEB 3 ML INH (19:36)
[2023-12-30 20:00] VITALS: BP 112/78
[2023-12-30] MEDS: FEOSOL 325 MG PO (21:27)
[2023-12-30 21:41] LABS: Glucose - Point of Care 93 mg/dl (70-99)
[2023-12-31] VITALS (9 sets, daily range): BP systolic 92–122; BP diastolic 61–88
[2023-12-31] MEDS: ATIVAN 1 MG SL ×5 (01:18→21:12)
[2023-12-31] MEDS: BENADRYL SOLUTION 25 MG TUBE ×6 (01:18→21:13)
[2023-12-31] MEDS: LIORESAL 10 MG TUBE ×3 (05:04→21:11)
[2023-12-31] MEDS: SINEMET 25-100 1.5 TABLET TUBE ×2 (05:04→09:36)
--- NOTE | 2023-12-31 06:38 | PTCARENOTE ---
Mary had one dystonia episode overnight that lasted about 20-30 minutes; IVPB Benadryl given per JUL. Pt has been off benadryl gtt. RA/2L in place; Sp02 WNL. G/J tube leaking at site; pt changed dressing. Turn self while in bed. Tele showing
NSR/ST. LUE PICC line dressing intact, lumens patent. PRN Zofran and Tylenol provided per request. Call sanchez and tray table within reach. Pt calls appropriately. Med sitter at bedside for safety.
[2023-12-31] MEDS: PULMICORT 0.5 MG INH ×2 (08:03→19:21)
[2023-12-31] MEDS: NOVOLOG FLEXPEN-LOW RESISTANCE SC ×3 (08:27→18:05)
[2023-12-31] MEDS: NOVOLOG FLEXPEN SC ×3 (08:27→18:05)
[2023-12-31 08:33] LABS: Glucose - Point of Care 79 mg/dl (70-99)
[2023-12-31] MEDS: ZOFRAN 4 MG IV ×3 (09:25→23:37)
[2023-12-31] MEDS: GASTROCROM 300 MG PO ×4 (09:29→21:13)
[2023-12-31] MEDS: MIRALAX TUBE (09:32)
[2023-12-31] MEDS: LIDOCAINE 4% PATCH 1 PATCH TOPICAL (09:32)
[2023-12-31] MEDS: LOVENOX 90 MG SC (09:32)
[2023-12-31] MEDS: NSS (PRESERVATIVE FREE) 6 ML IV ×2 (09:33→21:14)
[2023-12-31] MEDS: PEPCID 40 MG IV ×2 (09:33→21:13)
[2023-12-31] MEDS: LANTUS 0.1 UNITS SC (09:35)
[2023-12-31] MEDS: VITAMIN B1 100 MG TUBE (09:35)
[2023-12-31] MEDS: HYDREA 500 MG PO ×2 (09:35→21:13)
[2023-12-31] MEDS: DELTASONE 10 MG TUBE ×2 (09:35→21:10)
[2023-12-31] MEDS: CLARITIN 10 MG TUBE (09:36)
[2023-12-31] MEDS: SUBUTEX 2 MG SL ×4 (09:37→21:11)
[2023-12-31] MEDS: INDERAL 10 MG TUBE ×3 (09:37→21:11)
[2023-12-31] MEDS: ZADITOR 1 DROP BOTH EYES ×2 (09:38→21:16)
[2023-12-31] MEDS: COLACE PO ×2 (09:39→21:10)
[2023-12-31] MEDS: NON-FORMULARY ITEM 80 MG PO (09:40)
[2023-12-31] MEDS: BACTROBAN 2% OINTMENT 1 APPLIC TOPICAL ×3 (09:41→21:13)
[2023-12-31] MEDS: DESENEX/MITRAZOL/ZEASORB 1 APPLIC TOPICAL ×2 (09:41→21:14)
[2023-12-31] MEDS: NON-FORMULARY ITEM 1 MG PO ×2 (09:42→21:14)
[2023-12-31] MEDS: NON-FORMULARY ITEM 1 UNIT PO ×2 (09:43→21:15)
[2023-12-31] MEDS: NON-FORMULARY ITEM NASAL (09:44)
[2023-12-31] MEDS: BENADRYL 50.5 MG IV ×3 (10:09→23:37)
[2023-12-31 12:45] LABS: Glucose - Point of Care 141 mg/dl (70-99)
--- NOTE | 2023-12-31 12:59 | PTCARENOTE ---
Patient sent to [facility] in bed for G/J tube exchange.
[2023-12-31] MEDS: SINEMET 25-100 2 TABLET TUBE ×2 (13:53→17:05)
[2023-12-31] MEDS: MYLICON 80 MG PO (13:54)
[2023-12-31] MEDS: TYLENOL 650 MG PO (13:54)
--- NOTE | 2023-12-31 14:51 | W.PN.HOSP.TC ---
Today's Communication/Plan
-
Has been off Benadryl drip for 24 hours.
Continue current medication regimen per
Anticoagulation: Transition from Lovenox to Eliquis.
Reduce dose of lorazepam.
Discharge planing
Assessment / Plan
Assessment / Plan
12/29/23--pt wants Covid test--no other changes to the plan--Dr. Kirk to resume care tomorrow 12/29
Impression:
Gram-negative bacteremia due to chronic infected PICC line.
Conditions prior to admission:
1. Mast cell activation syndrome.
2. Chronic dystonic reaction.
3. Orthostatic hypotension with postural orthostatic and tachycardia syndrome.
4. Dopa sensitive dystonia.
5. Steroid-induced diabetes.
6. Prior history of deep venous thrombosis and pulmonary embolism.
7. Chronic pain syndrome.
8. Migraine headaches.
9. Gastroesophageal reflux disease.
10. Benzodiazepine and opiate dependence.
11. Restless legs syndrome.
12. Insomnia.
13. History of vocal cord dysfunction.
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
15. Gastroparesis.
16. 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
17. 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
A/P:
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
PICC line removed and PICC line replaced on 09/23
Repeated blood cultures negative on 09/20 but no other cultures obtained
Finished cipro on 10/06/23 (was on 750mg BID)
GJ tube in place
Replaced by interventional radiology on 09/22
Replaced by interventional radiology 11/04 due to concern leakage
IR reconsulted 12/25 due to leakage around GJ tube, bumper tightened by IR and leakage stopped, IR will still plan for repeat exchange in coming week (not sure if this is necessary if leakage stopped)
HX Recurrent Anaphylaxis / Mast Cell Flare Episodes on chronic steroids
Mast Cell Activation Syndrome
DOPA-Responsive Dystonia
follows with Dr. Lizabeth Villanueva at [facility] hematology.
Continue Ativan
cont Gleevac, steroids
Levalbuterol as needed
Continue carbidopa levodopa
prednisone continued
Outpatient IV Benadryl drip at 15 mg/hr upon presentation. As discussed with primary tax manager cpa Dr. Mora plan is to slowly taper.
Multiple conversations with patient almost on a daily basis in regards to goals of care including attempt to wean off Benadryl drip with possibly substitution to oral regimen to facilitate discharge as well as outpatient management. Patient has been
resistant to wean off Benadryl drip completely at this point as per Dr. Kirk
11/26. Multidisciplinary meeting including psychiatry, clinical pharmacy, medicine, nursing.
Patient clinical course along with medication regimen has been reviewed.
With the goal of minimize exposure to IV medications and optimize regimen following changes implemented:
-Daily IV fluids discontinued with plan to monitor oral intake and orthostatics.
-IV Benadryl pushes have been discontinued.
-Lorazepam sublingual as needed order has been discontinued.
-IV lorazepam has been discontinued
Initiated:
Benadryl 25 mg infusion through piggyback will be provided over 10 minutes for breakthrough dystonic attack.
Benadryl p.o. 25 mg will be scheduled every 4 hours.
Lorazepam sublingual 1 mg with the scheduled while awake every 4 hours.
Hydromorphone p.o. 8 mg Q6H PRN will be continued for severe pain along with Suboxone.
12/02.
Multidisciplinary discussion involving nursing, primary service, psychiatry, pharmacy, case management
Plan is to continue current care including intravenous Benadryl drip wean. Schedule below:
Diphenhydramine continuous infusion taper schedule Q72hr
12/18 @1300 � 8/ @1259 � 2MG/HR
12/21 @1300 � 88 @1259 � 1MG/HR
12/25 @1300 � 12/27 @0.5 mg/hr, and plan to further decrease to 0.25 mg/hr starting 12/28
Can consider increasing diphenhydramine PO up to max 300mg/day IF NEEDED. Would recommend increasing if episodes increase.
Current dose is 25 mg Q4H via tube, would increase to 37.5mg Q4H IF NEEDED, may need some increase as she comes off the drip today 12/24
dystonia/movement disorder-patient apparently has dystonic features with her mast cell activation syndrome.
could not find in literature as a routine clinical presentation but according to patient apparently this is very unusual feature which was noted in few other patients.
She was on IV Benadryl pump at 15 mg/h at home.
-baclofen continued
-sinemet continued
-episodes with vasovagal response when trying to have a BM- start standing miralax and colace BID--now saying she soils herself with coughing episodes
Chronic pain syndrome on high doses of narcotics (chronic opioid use with dependence) including p.o. Dilaudid and Suboxone at home.
Again unclear the source of her pain.
Follow-up with usual accounts payable specialist after discharge.
GERD
-famotidine continued
-acipHex continued
-simethicone continued
iron def anemia
-ferrous sulfate continued
hxt of tachycardia
-EKG with sinus tachycardia
-propranolol continued
Chronic Nausea / Esophageal Dysmotility/gastroparesis
History GJ tube
-Continue diet as tolerated.
-Continue G-tube to gravity for chronic nausea.
-Meds via J-tube.
-Zofran every 8 hours as needed
-Continue Pepcid
-emend continued
-PEG tube site without any signs of cellulitis. CT of the abdomen pelvis shows no subcutaneous collection around the PEG tube and it is in place.
Acute fractures of the left 6 anterolateral 6th and 7th ribs
-Suspect from recent fall on 10/03
-10/25 complains of pain on the posterolateral lower ribs
-Continue lidocaine patch, heating packs
Steroid-Induced DM-II
She remains on steady dose of prednisone- has cushingoid features on physical exam
Blood glucose remains marginal
Monitor oral intake
Reduce Lantus and NovoLog AC
Continue serial Accu-Cheks with basal bolus protocol.
s/p fall overnight 10/03-10/04
imaging negative for bleed or fracture
Steroid-Induced Osteoporosis
- PT / OT evaluations.
allergy induced asthma
chronic hypoxic respiratory failure on O2
-albuterol continued
-budesonide continued
-cetirizine continued
-cromolyn continued
Thrush
Completed course of clotrimazole Troches for thrush
Migraine Hx
ODT Nurtec as needed
Restless leg syndrome
-Continue baclofen
History of DVT/PE
Initially on Lovenox weight-based dose. Plan is to transition to [facility] prior to discharge
DNR on admission
Disposition: Discussion with primary tax manager cpa Dr. Ethan Villanueva on 10/09. Discussed possibility of attempting weaning Benadryl drip likely could be done as outpatient. With current family social situation, unfortunately there is no options
for disposition other than home on IV infusion. Possibility of a transfer to [facility] discussed as well, although according to Dr. Villanueva hospital administration declined services due to complexity. Also discussed possibility of
transfer to tertiary center ([facility] declined in the past).
10/[address] Villanueva over the phone as well as [facility] transfer center.
Complex patient. Attempt to wean off Benadryl drip over the last 2 weeks with persistent dystonic episodes.
While patient is relatively stable with her current condition, given complex clinical picture requiring multi disciplinary approach not limited to medicine, hematology, allergology, as well as neuropsychiatric assessment, patient would be better
served at a tertiary facility. Patient was accepted to [facility] for transfer, but hospital administration denied her transfer due to complexity (discussed with patient who is aware)
Anticipated Discharge: 24 - 48 hours
Subjective/Interval History
-
Date of Service: December 31, 2023
Objective Data
-
Vital Signs:
Vital Signs
Temp Pulse Resp BP Pulse Ox
97.4 F 95 18 121/88 100
12/31/23 13:05 12/31/23 13:35 12/31/23 13:35 12/31/23 13:35 12/31/23 13:05
I&O
12/30/23 12/31/23 01/01/24
06:59 06:59 06:59
Intake Total 750 / 750 150 / 150 480 / 480
Output Total 2150 / 2150 3300 / 3300 950 / 950
Balance -1400 / -1400 -3150 / -3150 -470 / -470
Physical Exam
-
General: Well Developed, Well Nourished and No Apparent Distress
HEENT: Normocephalic, Atraumatic and Other (round facies); Negative Oxygen
Respiratory: Clear to Auscultation; Negative Wheezes or Rhonchi
Cardiac: Regular Rhythm and S1/S2; Negative Murmur
GI: Soft, Nontender, Nondistended, Normal Bowel Sounds and Peg Tube
Musculoskeletal: No Clubbing, No Cyanosis and No Edema
Neuro: Awake
Psych: Calm
--- NOTE | 2023-12-31 15:26 | CM ---
Patient with Hx Mast Cell Activation Syndrome, dystonia/movement disorder, chronic pain syndrome, gastroparesis with Dx Gram-negative bacteremia due to chronic infected PICC line. O2 2L. Benadryl gtt discontinued 12/28.
Spoke with Dr Kirk; the patient is off the continuous Benadryl gtt. The plan is for the patient to go home with Benadryl IV Q4h prn and famotidine IV BID. Will work with Insurance and Agency to setup nurse for home.
Phone call to Roslyn Ferreira, Director Of Materials Management [employer] [facility] [employer] ([place] [phone]); left message informing her of requesting callback
Spoke with Usama Soriano [facility] ([place] [phone], fax [phone]); informed her of d/c needs for IV meds. They will not be able to provide an RN for this.
Plan follow up with [employer] for authorization and another Provider that can provide 24/7 RN coverage at home.
Plan contact [facility] re; home IV meds.
[2023-12-31] MEDS: ZYRTEC 10 MG TUBE ×2 (16:25→21:12)
[2023-12-31] MEDS: NON-FORMULARY ITEM PO (17:05)
[2023-12-31] MEDS: NON-FORMULARY ITEM 200 MG PO (17:11)
--- NOTE | 2023-12-31 17:30 | PTCARENOTE ---
Patient had 2 dystonic episodes today. Mild one in the morning and second one lasted approx an hour starting around 1620 until 1720. Assessment, care and VS as charted.
[2023-12-31 17:36] LABS: Glucose - Point of Care 115 mg/dl (70-99)
[2023-12-31] MEDS: ELIQUIS 5 MG PO (21:12)
[2023-12-31] MEDS: FEOSOL 325 MG PO (21:13)
[2023-12-31 21:24] LABS: Glucose - Point of Care 95 mg/dl (70-99)
[2024-01-01] VITALS: BP 111/85
[2024-01-01] MEDS: ATIVAN 1 MG SL ×4 (03:34→21:21)
[2024-01-01] MEDS: BENADRYL SOLUTION 25 MG TUBE ×6 (03:35→21:22)
--- NOTE | 2024-01-01 03:44 | PTCARENOTE ---
Pt had an attack at 23:30. PRN benadryl administered (see MAR). Pt now resting in bed, sleeping, call sanchez in reach.
[2024-01-01] MEDS: SINEMET 25-100 1.5 TABLET TUBE ×2 (06:01→10:00)
[2024-01-01] MEDS: LIORESAL 10 MG TUBE ×3 (06:01→21:22)
[2024-01-01 08:00] VITALS: BP 115/81
[2024-01-01] MEDS: PULMICORT 0.5 MG INH ×2 (08:18→19:45)
[2024-01-01] MEDS: ZOFRAN 4 MG IV ×2 (09:48→17:16)
[2024-01-01] MEDS: MIRALAX TUBE (09:54)
[2024-01-01] MEDS: BENADRYL 50.5 MG IV ×3 (09:58→19:46)
[2024-01-01] MEDS: NSS (PRESERVATIVE FREE) 6 ML IV ×2 (09:59→21:22)
[2024-01-01] MEDS: PEPCID 40 MG IV ×2 (09:59→21:23)
[2024-01-01] MEDS: INDERAL 10 MG TUBE ×3 (10:00→21:22)
[2024-01-01] MEDS: HYDREA 500 MG PO ×2 (10:00→21:22)
[2024-01-01] MEDS: DELTASONE 10 MG TUBE ×2 (10:01→21:22)
[2024-01-01] MEDS: COLACE PO ×3 (10:01→21:23)
[2024-01-01] MEDS: SUBUTEX 2 MG SL ×4 (10:01→21:21)
[2024-01-01] MEDS: CLARITIN 10 MG TUBE (10:01)
[2024-01-01] MEDS: VITAMIN B1 100 MG TUBE (10:01)
[2024-01-01] MEDS: BACTROBAN 2% OINTMENT 1 APPLIC TOPICAL ×3 (10:01→21:24)
[2024-01-01] MEDS: DESENEX/MITRAZOL/ZEASORB 1 APPLIC TOPICAL ×2 (10:02→21:21)
[2024-01-01] MEDS: ELIQUIS 5 MG PO ×2 (10:02→21:22)
[2024-01-01] MEDS: LIDOCAINE 4% PATCH 1 PATCH TOPICAL (10:04)
[2024-01-01] MEDS: NON-FORMULARY ITEM 80 MG PO (10:05)
[2024-01-01] MEDS: NON-FORMULARY ITEM 1 MG PO ×2 (10:06→21:24)
[2024-01-01] MEDS: NON-FORMULARY ITEM 1 UNIT PO ×2 (10:07→21:24)
[2024-01-01] MEDS: ZADITOR 1 DROP BOTH EYES ×2 (10:08→21:24)
[2024-01-01] MEDS: GASTROCROM 300 MG PO ×4 (10:10→21:20)
[2024-01-01] MEDS: LANTUS 0.1 UNITS SC (10:18)
[2024-01-01 10:27] LABS: Glucose - Point of Care 88 mg/dl (70-99)
[2024-01-01] MEDS: NOVOLOG FLEXPEN-LOW RESISTANCE SC ×3 (11:27→17:19)
[2024-01-01] MEDS: NOVOLOG FLEXPEN SC (11:27)
--- NOTE | 2024-01-01 11:31 | W.PN.HOSP.TC ---
Today's Communication/Plan
-
Has been off Benadryl drip.
Discharge planing
Assessment / Plan
Assessment / Plan
12/29/23--pt wants Covid test--no other changes to the plan--Dr. Kirk to resume care tomorrow 12/29
Impression:
Gram-negative bacteremia due to chronic infected PICC line.
Conditions prior to admission:
1. Mast cell activation syndrome.
2. Chronic dystonic reaction.
3. Orthostatic hypotension with postural orthostatic and tachycardia syndrome.
4. Dopa sensitive dystonia.
5. Steroid-induced diabetes.
6. Prior history of deep venous thrombosis and pulmonary embolism.
7. Chronic pain syndrome.
8. Migraine headaches.
9. Gastroesophageal reflux disease.
10. Benzodiazepine and opiate dependence.
11. Restless legs syndrome.
12. Insomnia.
13. History of vocal cord dysfunction.
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
15. Gastroparesis.
16. 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
17. 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
A/P:
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
PICC line removed and PICC line replaced on 09/23
Repeated blood cultures negative on 09/20 but no other cultures obtained
Finished cipro on 10/06/23 (was on 750mg BID)
GJ tube in place
Replaced by interventional radiology on 09/22
Replaced by interventional radiology 11/04 due to concern leakage
IR reconsulted 12/25 due to leakage around GJ tube, bumper tightened by IR and leakage stopped, IR will still plan for repeat exchange in coming week (not sure if this is necessary if leakage stopped)
HX Recurrent Anaphylaxis / Mast Cell Flare Episodes on chronic steroids
Mast Cell Activation Syndrome
DOPA-Responsive Dystonia
follows with Dr. Lizabeth Villanueva at [facility] hematology.
Continue Ativan
cont Gleevac, steroids
Levalbuterol as needed
Continue carbidopa levodopa
prednisone continued
Outpatient IV Benadryl drip at 15 mg/hr upon presentation. As discussed with primary supervising bailiff Dr. Mora plan is to slowly taper.
Multiple conversations with patient almost on a daily basis in regards to goals of care including attempt to wean off Benadryl drip with possibly substitution to oral regimen to facilitate discharge as well as outpatient management. Patient has been
resistant to wean off Benadryl drip completely at this point as per Dr. Kirk
11/26. Multidisciplinary meeting including psychiatry, clinical pharmacy, medicine, nursing.
Patient clinical course along with medication regimen has been reviewed.
With the goal of minimize exposure to IV medications and optimize regimen following changes implemented:
-Daily IV fluids discontinued with plan to monitor oral intake and orthostatics.
-IV Benadryl pushes have been discontinued.
-Lorazepam sublingual as needed order has been discontinued.
-IV lorazepam has been discontinued
Initiated:
Benadryl 25 mg infusion through piggyback will be provided over 10 minutes for breakthrough dystonic attack.
Benadryl p.o. 25 mg will be scheduled every 4 hours.
Lorazepam sublingual 1 mg with the scheduled while awake every 4 hours.
Hydromorphone p.o. 8 mg Q6H PRN will be continued for severe pain along with Suboxone.
12/02.
Multidisciplinary discussion involving nursing, primary service, psychiatry, pharmacy, case management
Plan is to continue current care including intravenous Benadryl drip wean. Schedule below:
Diphenhydramine continuous infusion taper schedule Q72hr
12/18 @1300 � 8/ @1259 � 2MG/HR
12/21 @1300 � 8 @1259 � 1MG/HR
12/25 @12/27 @0.5 mg/hr, and plan to further decrease to 0.25 mg/hr starting 12/28
Can consider increasing diphenhydramine PO up to max 300mg/day IF NEEDED. Would recommend increasing if episodes increase.
Current dose is 25 mg Q4H via tube, would increase to 37.5mg Q4H IF NEEDED, may need some increase as she comes off the drip today 12/24
dystonia/movement disorder-patient apparently has dystonic features with her mast cell activation syndrome.
could not find in literature as a routine clinical presentation but according to patient apparently this is very unusual feature which was noted in few other patients.
She was on IV Benadryl pump at 15 mg/h at home.
-baclofen continued
-sinemet continued
-episodes with vasovagal response when trying to have a BM- start standing miralax and colace BID--now saying she soils herself with coughing episodes
Chronic pain syndrome on high doses of narcotics (chronic opioid use with dependence) including p.o. Dilaudid and Suboxone at home.
Again unclear the source of her pain.
Follow-up with usual neuro psych sales specialist after discharge.
GERD
-famotidine continued
-acipHex continued
-simethicone continued
iron def anemia
-ferrous sulfate continued
hxt of tachycardia
-EKG with sinus tachycardia
-propranolol continued
Chronic Nausea / Esophageal Dysmotility/gastroparesis
History GJ tube
-Continue diet as tolerated.
-Continue G-tube to gravity for chronic nausea.
-Meds via J-tube.
-Zofran every 8 hours as needed
-Continue Pepcid
-emend continued
-PEG tube site without any signs of cellulitis. CT of the abdomen pelvis shows no subcutaneous collection around the PEG tube and it is in place.
Acute fractures of the left 6 anterolateral 6th and 7th ribs
-Suspect from recent fall on 10/03
-10/25 complains of pain on the posterolateral lower ribs
-Continue lidocaine patch, heating packs
Steroid-Induced DM-II
She remains on steady dose of prednisone- has cushingoid features on physical exam
Blood glucose remains marginal
Monitor oral intake
Reduce Lantus and NovoLog AC
Continue serial Accu-Cheks with basal bolus protocol.
s/p fall overnight 10/03-10/04
imaging negative for bleed or fracture
Steroid-Induced Osteoporosis
- PT / OT evaluations.
allergy induced asthma
chronic hypoxic respiratory failure on O2
-albuterol continued
-budesonide continued
-cetirizine continued
-cromolyn continued
Thrush
Completed course of clotrimazole Troches for thrush
Migraine Hx
ODT Nurtec as needed
Restless leg syndrome
-Continue baclofen
History of DVT/PE
Initially on Lovenox weight-based dose. Plan is to transition to [facility] prior to discharge
DNR on admission
Disposition: Discussion with primary supervising bailiff Dr. Ethan Villanueva on 10/09. Discussed possibility of attempting weaning Benadryl drip likely could be done as outpatient. With current family social situation, unfortunately there is no options
for disposition other than home on IV infusion. Possibility of a transfer to [facility] discussed as well, although according to Dr. Villanueva hospital administration declined services due to complexity. Also discussed possibility of
transfer to tertiary center ([facility] declined in the past).
10/[address] Villanueva over the phone as well as [facility] transfer center.
Complex patient. Attempt to wean off Benadryl drip over the last 2 weeks with persistent dystonic episodes.
While patient is relatively stable with her current condition, given complex clinical picture requiring multi disciplinary approach not limited to medicine, hematology, allergology, as well as neuropsychiatric assessment, patient would be better
served at a tertiary facility. Patient was accepted to [facility] for transfer, but hospital administration denied her transfer due to complexity (discussed with patient who is aware)
Anticipated Discharge: 24 - 48 hours
Subjective/Interval History
-
Date of Service: January 01, 2024
Objective Data
-
Vital Signs:
Vital Signs
Temp Pulse Resp BP Pulse Ox
98.3 F 114 18 115/81 94
01/01/24 07:00 01/01/24 10:00 01/01/24 10:00 01/01/24 08:00 01/01/24 08:20
I&O
12/31/23 01/01/24 01/02/24
06:59 06:59 06:59
Intake Total 150 / 150 1150 / 1150
Output Total 3300 / 3300 2350 / 2350
Balance -3150 / -3150 -1200 / -1200
Physical Exam
-
General: Well Developed, Well Nourished and No Apparent Distress
HEENT: Normocephalic, Atraumatic and Other (round facies); Negative Oxygen
Respiratory: Clear to Auscultation; Negative Wheezes or Rhonchi
Cardiac: Regular Rhythm and S1/S2; Negative Murmur
GI: Soft, Nontender, Nondistended, Normal Bowel Sounds and Peg Tube
Musculoskeletal: No Clubbing, No Cyanosis and No Edema
Neuro: Awake
Psych: Calm
[2024-01-01 12:00] VITALS: BP 108/73
[2024-01-01 13:04] LABS: Glucose - Point of Care 110 mg/dl (70-99)
[2024-01-01] MEDS: SINEMET 25-100 2 TABLET TUBE ×2 (13:05→17:17)
[2024-01-01] MEDS: NON-FORMULARY ITEM 200 MG PO (13:10)
[2024-01-01] MEDS: NOVOLOG FLEXPEN 3 UNITS SC ×2 (13:15→17:36)
[2024-01-01] MEDS: DUONEB 3 ML INH ×2 (15:22→19:45)
--- NOTE | 2024-01-01 15:34 | PTCARENOTE ---
Pt with dystonic episodes throughout the day. Medicated with PRN medications and standing medications as able-see MAR. Emotional support provided. Ice packs applied for comfort.
--- NOTE | 2024-01-01 15:40 | CM ---
Patient with Hx Mast Cell Activation Syndrome, dystonia/movement disorder, chronic pain syndrome, gastroparesis with Dx Gram-negative bacteremia due to chronic infected PICC line. O2 2L. Benadryl gtt discontinued 12/28.
Roslyn Ferreira, Gravel Screener [facility] ([place] [phone]); they have authorized 24/7 RN Visits. She spoke with Daina at [facility] and would like CM to make referral to them, as they indicated they may be able to staff the
request with the requisite RNs.
Spoke with Dania, [facility] ([place] [phone], fax [phone]); she requests fax of clinicals---> sent via Active Fax. She is working to line up RNs for the request. Dania is aware of the tentative d/c date of 12/04, and she is hoping
she can have nurses in place for that date.
Plan follow up with [facility] Gravel Screener and [facility] re; fulfillment of request for 24/7 RN Care at Home.
Plan contact [facility] re; home IV meds, once Nurses are in place.
[2024-01-01 16:00] VITALS: BP 97/59
[2024-01-01] MEDS: ADRENALIN 0.3 MG IM (16:18)
--- NOTE | 2024-01-01 16:22 | PTCARENOTE ---
Addendum entered by Mirella Brown 01/01/24 16:36:
Episode appears to have resolved post epi. Pt resting at this time.
Original Note:
Dystonic episode lasting over one hour despite PRN Benadryl and standing Ativan. Epi IM administered, see MAR. Dr. Garvin notified via TT.
[2024-01-01] MEDS: TYLENOL 650 MG PO (17:16)
[2024-01-01] MEDS: ZYRTEC 10 MG TUBE ×2 (17:18→21:20)
[2024-01-01 17:29] LABS: Glucose - Point of Care 139 mg/dl (70-99)
[2024-01-01 20:00] VITALS: BP 114/93
[2024-01-01] MEDS: FEOSOL 325 MG PO (21:20)
[2024-01-01 22:13] LABS: Glucose - Point of Care 97 mg/dl (70-99)
[2024-01-02] VITALS: BP 111/69
--- NOTE | 2024-01-02 00:24 | PTCARENOTE ---
Received pt at change of shift. Pt required PRN dose of Benadryl for onset of episode in addition to needing a breathing Tx. RT on unit and able to provide care immediately. Medication effective as pt episode lasted about 20 minutes. Resting in
bed with call sanchez in reach.
[2024-01-02] MEDS: BENADRYL SOLUTION 25 MG TUBE ×6 (03:47→21:03)
[2024-01-02] MEDS: ATIVAN 1 MG SL ×4 (03:47→21:02)
[2024-01-02 04:00] VITALS: BP 110/74
[2024-01-02] MEDS: SINEMET 25-100 1.5 TABLET TUBE ×2 (05:50→10:17)
[2024-01-02] MEDS: LIORESAL 10 MG TUBE ×3 (05:50→21:05)
[2024-01-02] MEDS: PULMICORT 0.5 MG INH ×2 (07:40→19:42)
[2024-01-02] MEDS: DUONEB 3 ML INH ×2 (07:40→14:50)
[2024-01-02 08:00] VITALS: BP 118/80
[2024-01-02 08:30] LABS: Glucose - Point of Care 91 mg/dl (70-99)
[2024-01-02] MEDS: NOVOLOG FLEXPEN-LOW RESISTANCE SC ×3 (09:01→17:37)
[2024-01-02] MEDS: ZADITOR 1 DROP BOTH EYES ×2 (09:08→20:53)
[2024-01-02] MEDS: DELTASONE 10 MG TUBE ×2 (09:09→20:42)
[2024-01-02] MEDS: VITAMIN B1 100 MG TUBE (09:09)
[2024-01-02] MEDS: INDERAL 10 MG TUBE ×3 (09:09→21:05)
[2024-01-02] MEDS: HYDREA 500 MG PO ×2 (09:09→20:46)
[2024-01-02] MEDS: SUBUTEX 2 MG SL ×4 (09:09→21:05)
[2024-01-02] MEDS: CLARITIN 10 MG TUBE (09:10)
[2024-01-02] MEDS: COLACE 100 MG PO (09:10)
[2024-01-02] MEDS: ELIQUIS 5 MG PO ×2 (09:10→20:46)
[2024-01-02] MEDS: GASTROCROM 300 MG PO ×4 (09:10→21:04)
[2024-01-02] MEDS: LIDOCAINE 4% PATCH 1 PATCH TOPICAL (09:11)
[2024-01-02] MEDS: PEPCID 40 MG IV ×2 (09:11→20:47)
[2024-01-02] MEDS: MIRALAX TUBE ×2 (09:11→09:57)
[2024-01-02] MEDS: NSS (PRESERVATIVE FREE) 6 ML IV ×2 (09:12→20:47)
[2024-01-02] MEDS: DESENEX/MITRAZOL/ZEASORB 1 APPLIC TOPICAL ×2 (09:13→20:41)
[2024-01-02] MEDS: BACTROBAN 2% OINTMENT 1 APPLIC TOPICAL (09:13)
[2024-01-02] MEDS: NOVOLOG FLEXPEN SC ×2 (09:15→10:18)
[2024-01-02] MEDS: NON-FORMULARY ITEM 80 MG PO (09:17)
[2024-01-02] MEDS: NON-FORMULARY ITEM 1 MG PO ×2 (09:17→20:51)
[2024-01-02] MEDS: NON-FORMULARY ITEM 1 UNIT PO ×3 (09:18→20:51)
--- NOTE | 2024-01-02 09:25 | VATNOTE ---
PCN asked to change IV tubing today, verbalized agreement.
[2024-01-02] MEDS: BENADRYL 50.5 MG IV ×3 (09:51→20:32)
[2024-01-02] MEDS: ZOFRAN 4 MG IV ×3 (09:52→21:48)
[2024-01-02] MEDS: LANTUS 0.1 UNITS SC (10:17)
[2024-01-02 11:13] VITALS: BP 116/73
--- NOTE | 2024-01-02 11:40 | CM ---
Addendum entered by Luci Garcia RN 01/02/24 15:55:
Spoke with MATTHEW Le [facility]; she may have 1-2 non-skilled caregivers for 8-12 hr shifts M-F and will c/b to confirm.
Spoke with Rohan, Tube Building Machine Operator; she will review the referral and let CM know if they have any skilled nurses available that could start next week.
Original Note:
Patient with Hx Mast Cell Activation Syndrome, dystonia/movement disorder, chronic pain syndrome, gastroparesis with Dx Gram-negative bacteremia due to chronic infected PICC line.
Request from Roslyn Ferreira, Ssrs Report Developer [facility] [employer] ([place] [phone]) to send additional referrals to:
- Whitley Supervisor [employer] [facility] (for non-skilled) ph [phone], fax [phone]. Referral faxed.
- Dayna, Director Of Teacher Education, [facility] (skilled services) ph [phone], fax [phone]. Referral faxed.
Per Roslyn, [facility] is still looking for skilled nurses.
Roslyn will follow up with the 3 Agencies if they have staff available.
Spoke with [facility] ([place] [phone], fax [phone] or [phone]); discussed that patient will need IV Benadryl prn and IV Famotidine BID for probable d/c next week. He asks for CM to fax request with d/c med
list the day prior to discharge to [facility]. Saravanan is off today.
Plan follow up with [facility] Ssrs Report Developer if agencies have RN and non-skilled caregiver staff available.
Plan contact [facility] re; home IV meds and fax script for meds the day prior to discharge.
[2024-01-02] MEDS: SINEMET 25-100 2 TABLET TUBE ×2 (13:16→17:09)
[2024-01-02] MEDS: NOVOLOG FLEXPEN 3 UNITS SC ×2 (13:22→18:16)
[2024-01-02 13:31] LABS: Glucose - Point of Care 120 mg/dl (70-99)
--- NOTE | 2024-01-02 14:45 | W.PN.HOSP.TC ---
Today's Communication/Plan
-
Has been off Benadryl drip as of this week.
Continue IV Benadryl rescue dose infusion for dystonic reactions.
Ongoing disposition efforts.
Assessment / Plan
Assessment / Plan
12/29/23--pt wants Covid test--no other changes to the plan--Dr. Kirk to resume care tomorrow 12/29
Impression:
Gram-negative bacteremia due to chronic infected PICC line.
Conditions prior to admission:
1. Mast cell activation syndrome.
2. Chronic dystonic reaction.
3. Orthostatic hypotension with postural orthostatic and tachycardia syndrome.
4. Dopa sensitive dystonia.
5. Steroid-induced diabetes.
6. Prior history of deep venous thrombosis and pulmonary embolism.
7. Chronic pain syndrome.
8. Migraine headaches.
9. Gastroesophageal reflux disease.
10. Benzodiazepine and opiate dependence.
11. Restless legs syndrome.
12. Insomnia.
13. History of vocal cord dysfunction.
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
15. Gastroparesis.
16. 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
17. 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
A/P:
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
PICC line removed and PICC line replaced on 09/23
Repeated blood cultures negative on 09/20 but no other cultures obtained
Finished cipro on 10/06/23 (was on 750mg BID)
GJ tube in place
Replaced by interventional radiology on 09/22
Replaced by interventional radiology 11/04 due to concern leakage
IR reconsulted 12/25 due to leakage around GJ tube, bumper tightened by IR and leakage stopped, IR will still plan for repeat exchange in coming week (not sure if this is necessary if leakage stopped)
HX Recurrent Anaphylaxis / Mast Cell Flare Episodes on chronic steroids
Mast Cell Activation Syndrome
DOPA-Responsive Dystonia
follows with Dr. Lizabeth Villanueva at [facility] hematology.
Continue Ativan
cont Gleevac, steroids
Levalbuterol as needed
Continue carbidopa levodopa
prednisone continued
Outpatient IV Benadryl drip at 15 mg/hr upon presentation. As discussed with primary highway construction inspector Dr. Mora plan is to slowly taper.
Multiple conversations with patient almost on a daily basis in regards to goals of care including attempt to wean off Benadryl drip with possibly substitution to oral regimen to facilitate discharge as well as outpatient management. Patient has been
resistant to wean off Benadryl drip completely at this point as per Dr. Kirk
11/26. Multidisciplinary meeting including psychiatry, clinical pharmacy, medicine, nursing.
Patient clinical course along with medication regimen has been reviewed.
With the goal of minimize exposure to IV medications and optimize regimen following changes implemented:
-Daily IV fluids discontinued with plan to monitor oral intake and orthostatics.
-IV Benadryl pushes have been discontinued.
-Lorazepam sublingual as needed order has been discontinued.
-IV lorazepam has been discontinued
Initiated:
Benadryl 25 mg infusion through piggyback will be provided over 10 minutes for breakthrough dystonic attack.
Benadryl p.o. 25 mg will be scheduled every 4 hours.
Lorazepam sublingual 1 mg with the scheduled while awake every 4 hours.
Hydromorphone p.o. 8 mg Q6H PRN will be continued for severe pain along with Suboxone.
12/02.
Multidisciplinary discussion involving nursing, primary service, psychiatry, pharmacy, case management
Plan is to continue current care including intravenous Benadryl drip wean. Schedule below:
Diphenhydramine continuous infusion taper schedule Q72hr
12/18 @1300 � 8/5 @1259 � 2MG/HR
12/21 @1300 � 8/8 @1259 � 1MG/HR
12/25 @1300 � 8/11 @0.5 mg/hr, and plan to further decrease to 0.25 mg/hr starting 12/28
Can consider increasing diphenhydramine PO up to max 300mg/day IF NEEDED. Would recommend increasing if episodes increase.
Current dose is 25 mg Q4H via tube, would increase to 37.5mg Q4H IF NEEDED, may need some increase as she comes off the drip today 12/24
dystonia/movement disorder-patient apparently has dystonic features with her mast cell activation syndrome.
could not find in literature as a routine clinical presentation but according to patient apparently this is very unusual feature which was noted in few other patients.
She was on IV Benadryl pump at 15 mg/h at home.
-baclofen continued
-sinemet continued
-episodes with vasovagal response when trying to have a BM- start standing miralax and colace BID--now saying she soils herself with coughing episodes
Chronic pain syndrome on high doses of narcotics (chronic opioid use with dependence) including p.o. Dilaudid and Suboxone at home.
Again unclear the source of her pain.
Follow-up with usual water resource specialist after discharge.
GERD
-famotidine continued
-acipHex continued
-simethicone continued
iron def anemia
-ferrous sulfate continued
hxt of tachycardia
-EKG with sinus tachycardia
-propranolol continued
Chronic Nausea / Esophageal Dysmotility/gastroparesis
History GJ tube
-Continue diet as tolerated.
-Continue G-tube to gravity for chronic nausea.
-Meds via J-tube.
-Zofran every 8 hours as needed
-Continue Pepcid
-emend continued
-PEG tube site without any signs of cellulitis. CT of the abdomen pelvis shows no subcutaneous collection around the PEG tube and it is in place.
Acute fractures of the left 6 anterolateral 6th and 7th ribs
-Suspect from recent fall on 10/03
-10/25 complains of pain on the posterolateral lower ribs
-Continue lidocaine patch, heating packs
Steroid-Induced DM-II
She remains on steady dose of prednisone- has cushingoid features on physical exam
Blood glucose remains marginal
Monitor oral intake
Reduce Lantus and NovoLog AC
Continue serial Accu-Cheks with basal bolus protocol.
s/p fall overnight 10/03-10/04
imaging negative for bleed or fracture
Steroid-Induced Osteoporosis
- PT / OT evaluations.
allergy induced asthma
chronic hypoxic respiratory failure on O2
-albuterol continued
-budesonide continued
-cetirizine continued
-cromolyn continued
Thrush
Completed course of clotrimazole Troches for thrush
Migraine Hx
ODT Nurtec as needed
Restless leg syndrome
-Continue baclofen
History of DVT/PE
Initially on Lovenox weight-based dose. Plan is to transition to [facility] prior to discharge
DNR on admission
Disposition: Discussion with primary highway construction inspector Dr. Ethan Villanueva on 10/09. Discussed possibility of attempting weaning Benadryl drip likely could be done as outpatient. With current family social situation, unfortunately there is no options
for disposition other than home on IV infusion. Possibility of a transfer to [facility] discussed as well, although according to Dr. Villanueva hospital administration declined services due to complexity. Also discussed possibility of
transfer to tertiary center ([facility] declined in the past).
10/[address] Villanueva over the phone as well as [facility] transfer center.
Complex patient. Attempt to wean off Benadryl drip over the last 2 weeks with persistent dystonic episodes.
While patient is relatively stable with her current condition, given complex clinical picture requiring multi disciplinary approach not limited to medicine, hematology, allergology, as well as neuropsychiatric assessment, patient would be better
served at a tertiary facility. Patient was accepted to [facility] for transfer, but hospital administration denied her transfer due to complexity (discussed with patient who is aware)
Anticipated Discharge: 24 - 48 hours
Subjective/Interval History
-
Date of Service: January 02, 2024
Objective Data
-
Vital Signs:
Vital Signs
Temp Pulse Resp BP Pulse Ox
98.1 F 101 15 116/73 99
01/02/24 11:47 01/02/24 11:13 01/02/24 11:13 01/02/24 11:13 01/02/24 11:49
I&O
01/01/24 01/02/24 01/03/24
06:59 06:59 06:59
Intake Total 1150 / 1150 480 / 480
Output Total 2350 / 2350 1000 / 1000
Balance -1200 / -1200 -520 / -520
Physical Exam
-
General: Well Developed, Well Nourished and No Apparent Distress
HEENT: Normocephalic, Atraumatic and Other (round facies); Negative Oxygen
Respiratory: Clear to Auscultation; Negative Wheezes or Rhonchi
Cardiac: Regular Rhythm and S1/S2; Negative Murmur
GI: Soft, Nontender, Nondistended, Normal Bowel Sounds and Peg Tube
Musculoskeletal: No Clubbing, No Cyanosis and No Edema
Neuro: Awake
Psych: Calm
[2024-01-02] MEDS: NON-FORMULARY ITEM 200 MG PO (14:49)
[2024-01-02] MEDS: BACTROBAN 2% OINTMENT TOPICAL ×2 (15:47→21:03)
[2024-01-02 16:00] VITALS: BP 116/73
[2024-01-02] MEDS: ZYRTEC 10 MG TUBE ×2 (17:09→21:05)
--- NOTE | 2024-01-02 17:39 | PTCARENOTE ---
see nursing assessment. pt had 2 episodes of dystonia this shift. medicated per order with benadryl iv with eventual symptom relief. prn nebs also given during each episode as pt exhibiting dry cough. sats 98 to 100 on [id number].
[2024-01-02 17:41] LABS: Glucose - Point of Care 108 mg/dl (70-99)
[2024-01-02 20:00] VITALS: BP 107/74
[2024-01-02] MEDS: COLACE PO (20:43)
[2024-01-02] MEDS: TYLENOL 650 MG PO (21:01)
[2024-01-02] MEDS: MYLICON 80 MG PO (21:01)
[2024-01-02] MEDS: FEOSOL 325 MG PO (21:04)
--- NOTE | 2024-01-02 21:30 | PTCARENOTE ---
Pt with Dystonic episode. PRN medication administered as ordered. Pt diaphoretic and drenched in sweat post episode. Complete bed bath provided. New linens in place. Shower cap provided. Oral care complete. All pt needs met at this time. Pt now
resting comfortably. medsitter in place. Will continue to monitor.
[2024-01-02 21:45] LABS: Glucose - Point of Care 109 mg/dl (70-99)
[2024-01-03] VITALS: BP 108/65
[2024-01-03] MEDS: BENADRYL SOLUTION 25 MG TUBE ×6 (02:57→21:17)
[2024-01-03] MEDS: ATIVAN 1 MG SL ×4 (03:00→21:07)
[2024-01-03 04:00] VITALS: BP 107/71
[2024-01-03] MEDS: SINEMET 25-100 1.5 TABLET TUBE ×2 (06:09→09:13)
[2024-01-03] MEDS: LIORESAL 10 MG TUBE ×3 (06:09→21:11)
--- NOTE | 2024-01-03 07:40 | W.PN.HOSP.TC ---
Today's Communication/Plan
-
Discharge planning
Assessment / Plan
Assessment / Plan
12/29/23--pt wants Covid test--no other changes to the plan--Dr. Kirk to resume care tomorrow 12/29
Impression:
Gram-negative bacteremia due to chronic infected PICC line.
Conditions prior to admission:
1. Mast cell activation syndrome.
2. Chronic dystonic reaction.
3. Orthostatic hypotension with postural orthostatic and tachycardia syndrome.
4. Dopa sensitive dystonia.
5. Steroid-induced diabetes.
6. Prior history of deep venous thrombosis and pulmonary embolism.
7. Chronic pain syndrome.
8. Migraine headaches.
9. Gastroesophageal reflux disease.
10. Benzodiazepine and opiate dependence.
11. Restless legs syndrome.
12. Insomnia.
13. History of vocal cord dysfunction.
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
15. Gastroparesis.
16. 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
17. 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
A/P:
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
PICC line removed and PICC line replaced on 09/23
Repeated blood cultures negative on 09/20 but no other cultures obtained
Finished cipro on 10/06/23 (was on 750mg BID)
GJ tube in place
Replaced by interventional radiology on 09/22
Replaced by interventional radiology 11/04 due to concern leakage
IR reconsulted 12/25 due to leakage around GJ tube, bumper tightened by IR and leakage stopped, IR will still plan for repeat exchange in coming week (not sure if this is necessary if leakage stopped)
HX Recurrent Anaphylaxis / Mast Cell Flare Episodes on chronic steroids
Mast Cell Activation Syndrome
DOPA-Responsive Dystonia
follows with Dr. Lizabeth Villanueva at [facility] hematology.
Continue Ativan
cont Gleevac, steroids
Levalbuterol as needed
Continue carbidopa levodopa
prednisone continued
Outpatient IV Benadryl drip at 15 mg/hr upon presentation. As discussed with primary forge operator Dr. Mora plan is to slowly taper.
Multiple conversations with patient almost on a daily basis in regards to goals of care including attempt to wean off Benadryl drip with possibly substitution to oral regimen to facilitate discharge as well as outpatient management. Patient has been
resistant to wean off Benadryl drip completely at this point as per Dr. Kirk
11/26. Multidisciplinary meeting including psychiatry, clinical pharmacy, medicine, nursing.
Patient clinical course along with medication regimen has been reviewed.
With the goal of minimize exposure to IV medications and optimize regimen following changes implemented:
-Daily IV fluids discontinued with plan to monitor oral intake and orthostatics.
-IV Benadryl pushes have been discontinued.
-Lorazepam sublingual as needed order has been discontinued.
-IV lorazepam has been discontinued
Initiated:
Benadryl 25 mg infusion through piggyback will be provided over 10 minutes for breakthrough dystonic attack.
Benadryl p.o. 25 mg will be scheduled every 4 hours.
Lorazepam sublingual 1 mg with the scheduled while awake every 4 hours.
Hydromorphone p.o. 8 mg Q6H PRN will be continued for severe pain along with Suboxone.
12/02.
Multidisciplinary discussion involving nursing, primary service, psychiatry, pharmacy, case management
Plan is to continue current care including intravenous Benadryl drip wean. Schedule below:
Diphenhydramine continuous infusion taper schedule Q72hr
12/18 @1300 � 8/ @1259 � 2MG/HR
12/21 @1300 � 8/ @1259 � 1MG/HR
12/25 @1300 � 8/11 @0.5 mg/hr, and plan to further decrease to 0.25 mg/hr starting 12/28
Can consider increasing diphenhydramine PO up to max 300mg/day IF NEEDED. Would recommend increasing if episodes increase.
Current dose is 25 mg Q4H via tube, would increase to 37.5mg Q4H IF NEEDED, completely off the drip 12/29
dystonia/movement disorder-patient apparently has dystonic features with her mast cell activation syndrome.
could not find in literature as a routine clinical presentation but according to patient apparently this is very unusual feature which was noted in few other patients.
She was on IV Benadryl pump at 15 mg/h at home.
-baclofen continued
-sinemet continued
-episodes with vasovagal response when trying to have a BM- start standing miralax and colace BID--now saying she soils herself with coughing episodes
Chronic pain syndrome on high doses of narcotics (chronic opioid use with dependence) including p.o. Dilaudid and Suboxone at home.
Again unclear the source of her pain.
Follow-up with usual duplication specialist after discharge.
GERD
-famotidine continued
-acipHex continued
-simethicone continued
iron def anemia
-ferrous sulfate continued
hxt of tachycardia
-EKG with sinus tachycardia
-propranolol continued
Chronic Nausea / Esophageal Dysmotility/gastroparesis
History GJ tube
-Continue diet as tolerated.
-Continue G-tube to gravity for chronic nausea.
-Meds via J-tube.
-Zofran every 8 hours as needed
-Continue Pepcid
-emend continued
-PEG tube site without any signs of cellulitis. CT of the abdomen pelvis shows no subcutaneous collection around the PEG tube and it is in place.
Acute fractures of the left 6 anterolateral 6th and 7th ribs
-Suspect from recent fall on 10/03
-10/25 complains of pain on the posterolateral lower ribs
-Continue lidocaine patch, heating packs
Steroid-Induced DM-II
She remains on steady dose of prednisone- has cushingoid features on physical exam
Blood glucose remains marginal
Monitor oral intake
Reduce Lantus and NovoLog AC
Continue serial Accu-Cheks with basal bolus protocol.
s/p fall overnight 10/03-10/04
imaging negative for bleed or fracture
Steroid-Induced Osteoporosis
- PT / OT evaluations.
allergy induced asthma
chronic hypoxic respiratory failure on O2
-albuterol continued
-budesonide continued
-cetirizine continued
-cromolyn continued
Thrush
Completed course of clotrimazole Troches for thrush
Migraine Hx
ODT Nurtec as needed
Restless leg syndrome
-Continue baclofen
History of DVT/PE
S/p Lovenox weight-based dose. Currently on eliquis
DNR on admission
Disposition: Discussion with primary forge operator Dr. Ethan Villanueva on 10/09. Discussed possibility of attempting weaning Benadryl drip likely could be done as outpatient. With current family social situation, unfortunately there is no options
for disposition other than home on IV infusion. Possibility of a transfer to [facility] discussed as well, although according to Dr. Villanueva hospital administration declined services due to complexity. Also discussed possibility of
transfer to tertiary center ([facility] declined in the past).
10/[address] Villanueva over the phone as well as [facility] transfer center.
Complex patient. Attempt to wean off Benadryl drip over the last 2 weeks with persistent dystonic episodes.
While patient is relatively stable with her current condition, given complex clinical picture requiring multi disciplinary approach not limited to medicine, hematology, allergology, as well as neuropsychiatric assessment, patient would be better
served at a tertiary facility. Patient was accepted to [facility] for transfer, but hospital administration denied her transfer due to complexity (discussed with patient who is aware)
Total time spent to see the patient on the floor, examine the patient, review data and lab results, discuss treatment plan with patient, nursing staff around 39 minutes.
Physical Exam
General: Obese, cushingoid features noted, no acute distress
HEENT: Normocephalic, Atraumatic, EOMI, MMM
Respiratory: Clear to Auscultation bilaterally
Cardiac: Normal S1/S2, Regular Rate and Rhythm
GI: Soft, +GJ tube, Nontender, Nondistended, Normal Bowel Sounds
Extremities: No Clubbing, Cyanosis, or Edema
Neuro: Nonfocal/Grossly Intact
Anticipated Discharge: > 48 hours
Subjective/Interval History
-
Date of Service: January 03, 2024
Patient reports nausea, no vomiting. Still having intermittent dystonic reactions. No fever.
Objective Data
-
Vital Signs:
Vital Signs
Temp Pulse Resp BP Pulse Ox
98.4 F 66 12 107/71 98
01/03/24 07:10 01/03/24 04:00 01/03/24 04:00 01/03/24 04:00 01/02/24 22:16
I&O
01/02/24 01/03/24 01/04/24
06:59 06:59 06:59
Intake Total 480 / 480 1110 / 1110
Output Total 1000 / 1000 2250 / 2250
Balance -520 / -520 -1140 / -1140
[2024-01-03 08:00] VITALS: BP 109/85
[2024-01-03] MEDS: DUONEB 3 ML INH ×3 (08:12→17:40)
[2024-01-03] MEDS: PULMICORT 0.5 MG INH ×2 (08:12→17:40)
[2024-01-03] MEDS: BENADRYL 50.5 MG IV ×3 (08:30→17:50)
[2024-01-03] MEDS: ZOFRAN 4 MG IV ×3 (08:30→21:12)
[2024-01-03] MEDS: PEPCID 40 MG IV ×2 (08:32→20:43)
[2024-01-03] MEDS: NSS (PRESERVATIVE FREE) 6 ML IV ×2 (08:34→20:44)
[2024-01-03] MEDS: BACTROBAN 2% OINTMENT 1 APPLIC TOPICAL (08:35)
[2024-01-03] MEDS: MIRALAX TUBE (08:35)
[2024-01-03] MEDS: DESENEX/MITRAZOL/ZEASORB 1 APPLIC TOPICAL ×2 (08:35→20:41)
[2024-01-03] MEDS: COLACE PO ×2 (08:40→20:40)
[2024-01-03] MEDS: NOVOLOG FLEXPEN 3 UNITS SC ×3 (08:46→16:39)
[2024-01-03] MEDS: SUBUTEX 2 MG SL ×4 (08:46→21:10)
[2024-01-03] MEDS: NOVOLOG FLEXPEN-LOW RESISTANCE SC ×2 (08:47→12:58)
[2024-01-03] MEDS: HYDREA 500 MG PO ×2 (08:47→20:43)
[2024-01-03] MEDS: CLARITIN 10 MG TUBE (08:48)
[2024-01-03] MEDS: VITAMIN B1 100 MG TUBE (08:48)
[2024-01-03] MEDS: DELTASONE 10 MG TUBE ×2 (08:48→20:41)
[2024-01-03] MEDS: ELIQUIS 5 MG PO ×2 (08:48→20:42)
[2024-01-03] MEDS: INDERAL 10 MG TUBE ×3 (08:48→21:11)
[2024-01-03] MEDS: GASTROCROM 300 MG PO ×4 (08:49→21:05)
[2024-01-03] MEDS: LIDOCAINE 4% PATCH 1 PATCH TOPICAL (08:49)
[2024-01-03] MEDS: LANTUS 0.1 UNITS SC (08:49)
[2024-01-03] MEDS: NON-FORMULARY ITEM 1 MG PO ×2 (08:55→20:52)
[2024-01-03] MEDS: NON-FORMULARY ITEM 1 UNIT PO ×2 (08:56→20:53)
[2024-01-03] MEDS: ZADITOR 1 DROP BOTH EYES ×2 (08:57→20:54)
[2024-01-03] MEDS: NON-FORMULARY ITEM 80 MG PO (08:57)
[2024-01-03 08:59] LABS: Glucose - Point of Care 94 mg/dl (70-99)
[2024-01-03] MEDS: MYLICON 80 MG PO (11:00)
[2024-01-03 12:00] VITALS: BP 104/74
[2024-01-03 13:09] LABS: Glucose - Point of Care 100 mg/dl (70-99)
[2024-01-03] MEDS: SINEMET 25-100 2 TABLET TUBE ×2 (13:57→17:49)
[2024-01-03] MEDS: NON-FORMULARY ITEM 200 MG PO (14:53)
[2024-01-03 16:00] VITALS: BP 117/70
[2024-01-03] MEDS: BACTROBAN 2% OINTMENT TOPICAL ×2 (16:36→20:57)
[2024-01-03] MEDS: ZYRTEC 10 MG TUBE ×2 (16:37→21:11)
[2024-01-03] MEDS: NOVOLOG FLEXPEN-LOW RESISTANCE 1 UNITS SC (16:39)
[2024-01-03 16:49] LABS: Glucose - Point of Care 162 mg/dl (70-99)
--- NOTE | 2024-01-03 17:56 | PTCARENOTE ---
Pt having a rough day. More tearful in the AM, shortly after having a dystonic episode at 8:30am. She then slept until the afternoon and had another episode close to 2pm. She ate and started to wake up a little more before having a third episode
around 5:45pm.
[2024-01-03] MEDS: ATIVAN 1 MG IV (18:18)
[2024-01-03] MEDS: NSS (PRESERVATIVE FREE) 0.5 ML IV (18:19)
[2024-01-03 20:00] VITALS: BP 109/73
[2024-01-03] MEDS: FLUSH (NSS) 4 FLUSH IV (20:45)
[2024-01-03] MEDS: FEOSOL 325 MG PO (21:07)
[2024-01-03] MEDS: TYLENOL 650 MG PO (21:08)
[2024-01-03] MEDS: FLUSH (NSS) 1 FLUSH IV (21:12)
--- NOTE | 2024-01-03 21:30 | PTCARENOTE ---
Report received from previous shift RN [id number]. Pt in bed, very emotional/tearful. Emotional support provided. Pt is AAO3, anxious at times. Lung sounds are clear throughout, decreased in b/l base, oc nonproductive cough noted, pox 97% on room air.
Telemetry rhythm reveals SR-ST, HR 90-100's, generalized anasarca noted, palpable peripheral pulses present. +BS, abdomen round obese. Pt is tolerating regular diet, reports intermittent nausea and poor appetite. Pt has G/J tube present; pt performs
tube care and clamps/unclamps G-tube with medication administration. G tube is to drainage when not clamped, J tube for medication administration. Purewick in place, pt voiding yellow urine. Pt states she did not want to get OOB during the day today
and states she had 3 'episodes' throughout the day. L TL PICC flushed and patent, capped. Safe environment maintained, call sanchez within reach. Med sitter monitoring in effect. Will monitor closely.
[2024-01-03 21:39] LABS: Glucose - Point of Care 130 mg/dl (70-99)
[2024-01-04] VITALS: BP 105/68
[2024-01-04] MEDS: BENADRYL 50.5 MG IV ×4 (00:39→23:11)
[2024-01-04] MEDS: FLUSH (NSS) 2 FLUSH IV (00:41)
[2024-01-04] MEDS: BENADRYL SOLUTION 25 MG TUBE ×6 (02:57→21:00)
[2024-01-04] MEDS: ATIVAN 1 MG SL ×4 (03:00→21:00)
[2024-01-04 04:00] VITALS: BP 103/63
[2024-01-04] MEDS: SINEMET 25-100 1.5 TABLET TUBE ×2 (06:04→09:24)
[2024-01-04] MEDS: LIORESAL 10 MG TUBE ×3 (06:04→21:00)
[2024-01-04] MEDS: PULMICORT 0.5 MG INH ×2 (07:42→19:44)
[2024-01-04 08:00] VITALS: BP 115/73
--- NOTE | 2024-01-04 08:26 | W.PN.HOSP.TC ---
Today's Communication/Plan
-
Discharge planning
Assessment / Plan
Assessment / Plan
12/29/23--pt wants Covid test--no other changes to the plan--Dr. Kirk to resume care tomorrow 12/29
Impression:
Gram-negative bacteremia due to chronic infected PICC line.
Conditions prior to admission:
1. Mast cell activation syndrome.
2. Chronic dystonic reaction.
3. Orthostatic hypotension with postural orthostatic and tachycardia syndrome.
4. Dopa sensitive dystonia.
5. Steroid-induced diabetes.
6. Prior history of deep venous thrombosis and pulmonary embolism.
7. Chronic pain syndrome.
8. Migraine headaches.
9. Gastroesophageal reflux disease.
10. Benzodiazepine and opiate dependence.
11. Restless legs syndrome.
12. Insomnia.
13. History of vocal cord dysfunction.
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
15. Gastroparesis.
16. 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
17. 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
A/P:
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
PICC line removed and PICC line replaced on 09/23
Repeated blood cultures negative on 09/20 but no other cultures obtained
Finished cipro on 10/06/23 (was on 750mg BID)
GJ tube in place
Replaced by interventional radiology on 09/22
Replaced by interventional radiology 11/04 due to concern leakage
IR reconsulted 12/25 due to leakage around GJ tube, bumper tightened by IR and leakage stopped, IR will still plan for repeat exchange in coming week (not sure if this is necessary if leakage stopped)
HX Recurrent Anaphylaxis / Mast Cell Flare Episodes on chronic steroids
Mast Cell Activation Syndrome
DOPA-Responsive Dystonia
follows with Dr. Lizabeth Villanueva at [facility] hematology.
Continue Ativan
cont Gleevac, steroids
Levalbuterol as needed
Continue carbidopa levodopa
prednisone continued
Outpatient IV Benadryl drip at 15 mg/hr upon presentation. As discussed with primary envelope folder Dr. Mora plan is to slowly taper.
Multiple conversations with patient almost on a daily basis in regards to goals of care including attempt to wean off Benadryl drip with possibly substitution to oral regimen to facilitate discharge as well as outpatient management. Patient has been
resistant to wean off Benadryl drip completely at this point as per Dr. Kirk
11/26. Multidisciplinary meeting including psychiatry, clinical pharmacy, medicine, nursing.
Patient clinical course along with medication regimen has been reviewed.
With the goal of minimize exposure to IV medications and optimize regimen following changes implemented:
-Daily IV fluids discontinued with plan to monitor oral intake and orthostatics.
-IV Benadryl pushes have been discontinued.
-Lorazepam sublingual as needed order has been discontinued.
-IV lorazepam has been discontinued
Initiated:
Benadryl 25 mg infusion through piggyback will be provided over 10 minutes for breakthrough dystonic attack.
Benadryl p.o. 25 mg will be scheduled every 4 hours.
Lorazepam sublingual 1 mg with the scheduled while awake every 4 hours.
Hydromorphone p.o. 8 mg Q6H PRN will be continued for severe pain along with Suboxone.
12/02.
Multidisciplinary discussion involving nursing, primary service, psychiatry, pharmacy, case management
Plan is to continue current care including intravenous Benadryl drip wean. Schedule below:
Diphenhydramine continuous infusion taper schedule Q72hr
12/18 @1300 � 8/ @1259 � 2MG/HR
12/21 @1300 � 8/ @1259 � 1MG/HR
12/25 @1300 � 8/11 @0.5 mg/hr, and plan to further decrease to 0.25 mg/hr starting 12/28
Can consider increasing diphenhydramine PO up to max 300mg/day IF NEEDED. Would recommend increasing if episodes increase.
Current dose is 25 mg Q4H via tube, would increase to 37.5mg Q4H IF NEEDED, completely off the drip 12/29
dystonia/movement disorder-patient apparently has dystonic features with her mast cell activation syndrome.
could not find in literature as a routine clinical presentation but according to patient apparently this is very unusual feature which was noted in few other patients.
She was on IV Benadryl pump at 15 mg/h at home.
-baclofen continued
-sinemet continued
-episodes with vasovagal response when trying to have a BM- start standing miralax and colace BID--now saying she soils herself with coughing episodes
Chronic pain syndrome on high doses of narcotics (chronic opioid use with dependence) including p.o. Dilaudid and Suboxone at home.
Again unclear the source of her pain.
Follow-up with usual renewals specialist after discharge.
GERD
-famotidine continued
-acipHex continued
-simethicone continued
iron def anemia
-ferrous sulfate continued
hxt of tachycardia
-EKG with sinus tachycardia
-propranolol continued
Chronic Nausea / Esophageal Dysmotility/gastroparesis
History GJ tube
-Continue diet as tolerated.
-Continue G-tube to gravity for chronic nausea.
-Meds via J-tube.
-Zofran every 8 hours as needed
-Continue Pepcid
-emend continued
-PEG tube site without any signs of cellulitis. CT of the abdomen pelvis shows no subcutaneous collection around the PEG tube and it is in place.
Acute fractures of the left 6 anterolateral 6th and 7th ribs
-Suspect from recent fall on 10/03
-10/25 complains of pain on the posterolateral lower ribs
-Continue lidocaine patch, heating packs
Steroid-Induced DM-II
She remains on steady dose of prednisone- has cushingoid features on physical exam
Blood glucose remains marginal
Monitor oral intake
Reduce Lantus and NovoLog AC
Continue serial Accu-Cheks with basal bolus protocol.
s/p fall overnight 10/03-10/04
imaging negative for bleed or fracture
Steroid-Induced Osteoporosis
- PT / OT evaluations.
allergy induced asthma
chronic hypoxic respiratory failure on O2
-albuterol continued
-budesonide continued
-cetirizine continued
-cromolyn continued
Thrush
Completed course of clotrimazole Troches for thrush
Migraine Hx
ODT Nurtec as needed
Restless leg syndrome
-Continue baclofen
History of DVT/PE
S/p Lovenox weight-based dose. Currently on eliquis
DNR on admission
Disposition: Discussion with primary envelope folder Dr. Ethan Villanueva on 10/09. Discussed possibility of attempting weaning Benadryl drip likely could be done as outpatient. With current family social situation, unfortunately there is no options
for disposition other than home on IV infusion. Possibility of a transfer to [facility] discussed as well, although according to Dr. Villanueva hospital administration declined services due to complexity. Also discussed possibility of
transfer to tertiary center ([facility] declined in the past).
10/[address] Villanueva over the phone as well as [facility] transfer center.
Complex patient. Attempt to wean off Benadryl drip over the last 2 weeks with persistent dystonic episodes.
While patient is relatively stable with her current condition, given complex clinical picture requiring multi disciplinary approach not limited to medicine, hematology, allergology, as well as neuropsychiatric assessment, patient would be better
served at a tertiary facility. Patient was accepted to [facility] for transfer, but hospital administration denied her transfer due to complexity (discussed with patient who is aware)
Total time spent to see the patient on the floor, examine the patient, review data and lab results, discuss treatment plan with patient, nursing staff around 37 minutes.
Physical Exam
General: Obese, cushingoid features noted, no acute distress
HEENT: Normocephalic, Atraumatic, EOMI, MMM
Respiratory: Clear to Auscultation bilaterally
Cardiac: Normal S1/S2, Regular Rate and Rhythm
GI: Soft, +GJ tube, Nontender, Nondistended, Normal Bowel Sounds
Extremities: No Clubbing, Cyanosis, or Edema
Neuro: Nonfocal/Grossly Intact
Anticipated Discharge: 24 - 48 hours
Subjective/Interval History
-
Date of Service: January 04, 2024
Patient continues to have intermittent dystonic reactions throughout the day.
Objective Data
-
Vital Signs:
Vital Signs
Temp Pulse Resp BP Pulse Ox
98.4 F 85 15 103/63 97
01/04/24 07:35 01/04/24 06:00 01/04/24 06:00 01/04/24 04:00 01/03/24 20:00
I&O
01/03/24 01/04/24 01/05/24
06:59 06:59 06:59
Intake Total 1110 / 1110 1300 / 1300
Output Total 2250 / 2250 2200 / 2200
Balance -1140 / -1140 -900 / -900
[2024-01-04] MEDS: LANTUS 0.1 UNITS SC (09:17)
[2024-01-04] MEDS: GASTROCROM 300 MG PO ×2 (09:19→12:28)
[2024-01-04] MEDS: HYDREA 500 MG PO ×2 (09:20→20:49)
[2024-01-04] MEDS: NON-FORMULARY ITEM 80 MG PO (09:20)
[2024-01-04] MEDS: NON-FORMULARY ITEM 1 MG PO ×2 (09:20→20:57)
[2024-01-04] MEDS: NON-FORMULARY ITEM 1 UNIT PO ×2 (09:22→20:58)
[2024-01-04 09:23] LABS: Glucose - Point of Care 87 mg/dl (70-99)
[2024-01-04] MEDS: ELIQUIS 5 MG PO ×2 (09:23→20:48)
[2024-01-04] MEDS: SUBUTEX 2 MG SL ×4 (09:23→21:00)
[2024-01-04] MEDS: ZADITOR 1 DROP BOTH EYES ×2 (09:24→20:49)
[2024-01-04] MEDS: VITAMIN B1 100 MG TUBE (09:24)
[2024-01-04] MEDS: CLARITIN 10 MG TUBE (09:24)
[2024-01-04] MEDS: DELTASONE 10 MG TUBE ×2 (09:24→20:48)
[2024-01-04] MEDS: INDERAL 10 MG TUBE ×3 (09:25→21:00)
[2024-01-04] MEDS: DESENEX/MITRAZOL/ZEASORB 1 APPLIC TOPICAL ×2 (09:25→20:48)
[2024-01-04] MEDS: MIRALAX TUBE (09:26)
[2024-01-04] MEDS: COLACE PO (09:26)
[2024-01-04] MEDS: NOVOLOG FLEXPEN-LOW RESISTANCE SC ×3 (09:26→17:31)
[2024-01-04] MEDS: BACTROBAN 2% OINTMENT TOPICAL ×3 (09:26→21:00)
[2024-01-04] MEDS: ZOFRAN 4 MG IV ×3 (09:30→23:13)
[2024-01-04] MEDS: NSS (PRESERVATIVE FREE) 6 ML IV ×2 (09:30→20:53)
[2024-01-04] MEDS: PEPCID 40 MG IV ×2 (09:30→20:52)
[2024-01-04] MEDS: LIDOCAINE 4% PATCH 1 PATCH TOPICAL (09:31)
[2024-01-04] MEDS: NOVOLOG FLEXPEN SC (11:44)
[2024-01-04 12:00] VITALS: BP 110/76
[2024-01-04 12:19] LABS: Glucose - Point of Care 102 mg/dl (70-99)
[2024-01-04] MEDS: NOVOLOG FLEXPEN 3 UNITS SC ×2 (12:29→18:11)
[2024-01-04] MEDS: NON-FORMULARY ITEM 200 MG PO (14:03)
[2024-01-04] MEDS: SINEMET 25-100 2 TABLET TUBE ×2 (14:03→18:11)
--- NOTE | 2024-01-04 14:32 | CHAP ---
Mary shared that she anticipates being discharged in the near future. Facing all the changes and adjustments ahead is somewhat daunting, but she has a strong spirit, and is going forward with determination, gerald and trust in God. Emotional and
spiritual support provided.
[2024-01-04] MEDS: ATIVAN 1 MG IV (14:55)
[2024-01-04] MEDS: NSS (PRESERVATIVE FREE) 0.5 ML IV (14:55)
[2024-01-04 16:00] VITALS: BP 95/61
[2024-01-04] MEDS: MYLICON 80 MG PO (16:27)
[2024-01-04 17:41] LABS: Glucose - Point of Care 107 mg/dl (70-99)
[2024-01-04] MEDS: ZYRTEC 10 MG TUBE ×2 (18:11→21:01)
[2024-01-04] MEDS: GASTROCROM 200 MG PO (18:12)
--- NOTE | 2024-01-04 19:24 | PTCARENOTE ---
Mary had 2 dystonic episodes today. At 2pm she had an episode that lasted an extended period of time. The hospitalist was made aware and 1mg IV ativan was given.
[2024-01-04 20:00] VITALS: BP 102/69
[2024-01-04] MEDS: COLACE 100 MG PO (20:48)
[2024-01-04] MEDS: FEOSOL 325 MG PO (21:00)
[2024-01-04 22:13] LABS: Glucose - Point of Care 139 mg/dl (70-99)
--- NOTE | 2024-01-04 22:24 | PTCARENOTE ---
Report received from previous shift RN [id number]. Pt in bed, AAO3, anxious/tearful at times. Lung sounds are clear throughout, decreased in b/l base, oc nonproductive cough noted, pox 96% on room air. Telemetry rhythm reveals SR-ST, HR 90-100's,
generalized anasarca noted, palpable peripheral pulses present. +BS, abdomen round obese. Pt is tolerating regular diet, reports intermittent nausea and poor appetite. Pt has G/J tube present; pt performs tube care and clamps/unclamps G-tube with
medication administration. G tube is to drainage when not clamped, J tube for medication administration. Purewick in place, pt voiding cloudy yellow urine. Pt states she did not want to get OOB during the day today and states she had 2 'episodes'
throughout the day. L TL PICC flushed and patent, capped. PCT assisted pt with hygiene care/linen change. Safe environment maintained, call sanchez within reach. Med sitter monitoring in effect. Will monitor closely.
[2024-01-04] MEDS: NON-FORMULARY ITEM 3 UNIT PO (22:29)
[2024-01-04] MEDS: FLUSH (NSS) 4 FLUSH IV (23:15)
[2024-01-04] MEDS: DUONEB 3 ML INH (23:18)
[2024-01-05] VITALS (7 sets, daily range): BP systolic 111–139; BP diastolic 67–113; PULSE 98
[2024-01-05] MEDS: BENADRYL SOLUTION 25 MG TUBE ×6 (02:54→21:14)
[2024-01-05] MEDS: ATIVAN 1 MG SL ×4 (03:00→21:02)
[2024-01-05] MEDS: LIORESAL 10 MG TUBE ×3 (06:03→20:59)
[2024-01-05] MEDS: SINEMET 25-100 1.5 TABLET TUBE ×2 (06:03→09:47)
[2024-01-05] MEDS: PULMICORT 0.5 MG INH ×2 (08:08→20:03)
[2024-01-05] MEDS: DUONEB 3 ML INH ×3 (08:08→20:03)
[2024-01-05 08:47] LABS: Glucose - Point of Care 89 mg/dl (70-99)
[2024-01-05] MEDS: COLACE PO ×2 (09:05→20:38)
[2024-01-05] MEDS: BACTROBAN 2% OINTMENT TOPICAL ×3 (09:05→21:02)
[2024-01-05] MEDS: NOVOLOG FLEXPEN-LOW RESISTANCE SC ×3 (09:05→20:37)
[2024-01-05] MEDS: MIRALAX TUBE (09:06)
[2024-01-05] MEDS: PEPCID 40 MG IV ×2 (09:24→21:01)
[2024-01-05] MEDS: ZOFRAN 4 MG IV ×2 (09:24→17:28)
[2024-01-05] MEDS: NSS (PRESERVATIVE FREE) 6 ML IV ×2 (09:25→21:00)
[2024-01-05] MEDS: CLARITIN 10 MG TUBE (09:32)
[2024-01-05] MEDS: INDERAL 10 MG TUBE ×3 (09:32→21:02)
[2024-01-05] MEDS: VITAMIN B1 100 MG TUBE (09:32)
[2024-01-05] MEDS: DELTASONE 10 MG TUBE ×2 (09:32→21:13)
[2024-01-05] MEDS: ELIQUIS 5 MG PO ×2 (09:32→20:59)
[2024-01-05] MEDS: DESENEX/MITRAZOL/ZEASORB 1 APPLIC TOPICAL ×2 (09:33→20:59)
[2024-01-05] MEDS: LIDOCAINE 4% PATCH 1 PATCH TOPICAL (09:33)
[2024-01-05] MEDS: ZADITOR 1 DROP BOTH EYES ×2 (09:43→21:01)
[2024-01-05] MEDS: HYDREA 500 MG PO ×2 (09:43→20:59)
[2024-01-05] MEDS: LANTUS 0.1 UNITS SC (09:43)
[2024-01-05] MEDS: NON-FORMULARY ITEM 1 UNIT PO ×2 (09:44→21:25)
[2024-01-05] MEDS: SUBUTEX 2 MG SL ×4 (09:44→21:03)
[2024-01-05] MEDS: NON-FORMULARY ITEM 1 MG PO ×2 (09:45→21:24)
[2024-01-05] MEDS: NON-FORMULARY ITEM 80 MG PO (09:45)
[2024-01-05] MEDS: NON-FORMULARY ITEM 3 UNIT PO ×2 (09:47→12:36)
[2024-01-05] MEDS: NOVOLOG FLEXPEN SC ×2 (09:49→20:37)
[2024-01-05] MEDS: NOVOLOG FLEXPEN 3 UNITS SC (12:35)
[2024-01-05 12:45] LABS: Glucose - Point of Care 101 mg/dl (70-99)
[2024-01-05] MEDS: NON-FORMULARY ITEM 200 MG PO (14:13)
[2024-01-05] MEDS: SINEMET 25-100 2 TABLET TUBE ×2 (14:13→17:43)
--- NOTE | 2024-01-05 15:03 | W.PN.HOSP.TC ---
Today's Communication/Plan
-
Ongoing disposition efforts including insurance and nursing arrangements.
Assessment / Plan
Assessment / Plan
Impression:
Gram-negative bacteremia due to chronic infected PICC line.
Conditions prior to admission:
1. Mast cell activation syndrome.
2. Chronic dystonic reaction.
3. Orthostatic hypotension with postural orthostatic and tachycardia syndrome.
4. Dopa sensitive dystonia.
5. Steroid-induced diabetes.
6. Prior history of deep venous thrombosis and pulmonary embolism.
7. Chronic pain syndrome.
8. Migraine headaches.
9. Gastroesophageal reflux disease.
10. Benzodiazepine and opiate dependence.
11. Restless legs syndrome.
12. Insomnia.
13. History of vocal cord dysfunction.
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
15. Gastroparesis.
16. 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
17. 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
A/P:
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
PICC line removed and PICC line replaced on 09/23
Repeated blood cultures negative on 09/20 but no other cultures obtained
Finished cipro on 10/06/23 (was on 750mg BID)
GJ tube in place
Replaced by interventional radiology on 09/22
Replaced by interventional radiology 11/04 due to concern leakage
IR reconsulted 12/25 due to leakage around GJ tube, bumper tightened by IR and leakage stopped, IR will still plan for repeat exchange in coming week (not sure if this is necessary if leakage stopped)
HX Recurrent Anaphylaxis / Mast Cell Flare Episodes on chronic steroids
Mast Cell Activation Syndrome
DOPA-Responsive Dystonia
follows with Dr. Lizabeth Villanueva at [facility] hematology.
Continue Ativan
cont Gleevac, steroids
Levalbuterol as needed
Continue carbidopa levodopa
prednisone continued
Outpatient IV Benadryl drip at 15 mg/hr upon presentation. As discussed with primary oil well service operator Dr. Mora plan is to slowly taper.
Multiple conversations with patient almost on a daily basis in regards to goals of care including attempt to wean off Benadryl drip with possibly substitution to oral regimen to facilitate discharge as well as outpatient management. Patient has been
resistant to wean off Benadryl drip completely at this point as per Dr. Kirk
11/26. Multidisciplinary meeting including psychiatry, clinical pharmacy, medicine, nursing.
Patient clinical course along with medication regimen has been reviewed.
With the goal of minimize exposure to IV medications and optimize regimen following changes implemented:
-Daily IV fluids discontinued with plan to monitor oral intake and orthostatics.
-IV Benadryl pushes have been discontinued.
-Lorazepam sublingual as needed order has been discontinued.
-IV lorazepam has been discontinued
Initiated:
Benadryl 25 mg infusion through piggyback will be provided over 10 minutes for breakthrough dystonic attack.
Benadryl p.o. 25 mg will be scheduled every 4 hours.
Lorazepam sublingual 1 mg with the scheduled while awake every 4 hours.
Hydromorphone p.o. 8 mg Q6H PRN will be continued for severe pain along with Suboxone.
12/02.
Multidisciplinary discussion involving nursing, primary service, psychiatry, pharmacy, case management
Plan is to continue current care including intravenous Benadryl drip wean. Schedule below:
Diphenhydramine continuous infusion taper schedule Q72hr
12/18 @1299 � 8 @1259 � 2MG/HR
12/21 @1300 � 8 @1259 � 1MG/HR
12/25 @12/27 @0.5 mg/hr, and plan to further decrease to 0.25 mg/hr starting 12/28
Can consider increasing diphenhydramine PO up to max 300mg/day IF NEEDED. Would recommend increasing if episodes increase.
Current dose is 25 mg Q4H via tube, would increase to 37.5mg Q4H IF NEEDED, completely off the drip 12/29
dystonia/movement disorder-patient apparently has dystonic features with her mast cell activation syndrome.
could not find in literature as a routine clinical presentation but according to patient apparently this is very unusual feature which was noted in few other patients.
She was on IV Benadryl pump at 15 mg/h at home.
-baclofen continued
-sinemet continued
-episodes with vasovagal response when trying to have a BM- start standing miralax and colace BID--now saying she soils herself with coughing episodes
Chronic pain syndrome on high doses of narcotics (chronic opioid use with dependence) including p.o. Dilaudid and Suboxone at home.
Again unclear the source of her pain.
Follow-up with usual regulatory affairs strategy specialist after discharge.
GERD
-famotidine continued
-acipHex continued
-simethicone continued
iron def anemia
-ferrous sulfate continued
hxt of tachycardia
-EKG with sinus tachycardia
-propranolol continued
Chronic Nausea / Esophageal Dysmotility/gastroparesis
History GJ tube
-Continue diet as tolerated.
-Continue G-tube to gravity for chronic nausea.
-Meds via J-tube.
-Zofran every 8 hours as needed
-Continue Pepcid
-emend continued
-PEG tube site without any signs of cellulitis. CT of the abdomen pelvis shows no subcutaneous collection around the PEG tube and it is in place.
Acute fractures of the left 6 anterolateral 6th and 7th ribs
-Suspect from recent fall on 10/03
-10/25 complains of pain on the posterolateral lower ribs
-Continue lidocaine patch, heating packs
Steroid-Induced DM-II
She remains on steady dose of prednisone- has cushingoid features on physical exam
Blood glucose remains marginal
Monitor oral intake
Reduce Lantus and NovoLog AC
Continue serial Accu-Cheks with basal bolus protocol.
s/p fall overnight 10/03-10/04
imaging negative for bleed or fracture
Steroid-Induced Osteoporosis
- PT / OT evaluations.
allergy induced asthma
chronic hypoxic respiratory failure on O2
-albuterol continued
-budesonide continued
-cetirizine continued
-cromolyn continued
Thrush
Completed course of clotrimazole Troches for thrush
Migraine Hx
ODT Nurtec as needed
Restless leg syndrome
-Continue baclofen
History of DVT/PE
S/p Lovenox weight-based dose. Currently on eliquis
DNR on admission
Disposition: Discussion with primary oil well service operator Dr. Ethan Villanueva on 10/09. Discussed possibility of attempting weaning Benadryl drip likely could be done as outpatient. With current family social situation, unfortunately there is no options
for disposition other than home on IV infusion. Possibility of a transfer to [facility] discussed as well, although according to Dr. Villanueva hospital administration declined services due to complexity. Also discussed possibility of
transfer to tertiary center ([facility] declined in the past).
10/[address] Villanueva over the phone as well as [facility] transfer center.
Complex patient. Attempt to wean off Benadryl drip over the last 2 weeks with persistent dystonic episodes.
While patient is relatively stable with her current condition, given complex clinical picture requiring multi disciplinary approach not limited to medicine, hematology, allergology, as well as neuropsychiatric assessment, patient would be better
served at a tertiary facility. Patient was accepted to [facility] for transfer, but hospital administration denied her transfer due to complexity (discussed with patient who is aware)
Total time spent to see the patient on the floor, examine the patient, review data and lab results, discuss treatment plan with patient, nursing staff around 37 minutes.
Anticipated Discharge: 24 - 48 hours
Subjective/Interval History
-
Date of Service: January 05, 2024
Objective Data
-
Vital Signs:
Vital Signs
Temp Pulse Resp BP Pulse Ox
97.7 F 85 16 111/77 98
01/05/24 11:05 01/05/24 12:00 01/05/24 12:00 01/05/24 12:00 01/05/24 11:50
I&O
01/04/24 01/05/24 01/06/24
06:59 06:59 06:59
Intake Total 1300 / 1300 570 / 570
Output Total 2200 / 2200 2024
Balance -900 / -900 -1455 / -1455
Physical Exam
-
General: Well Developed and No Apparent Distress
HEENT: Normocephalic, Atraumatic and Moist Mucous Membranes
Respiratory: Clear to Auscultation
Cardiac: Regular Rhythm and S1/S2; Negative Murmur, Rub or Gallop
GI: Soft, Nontender, Nondistended and Normal Bowel Sounds; Negative Organomegaly
Rectal: Deferred by Provider
Musculoskeletal: No Clubbing, No Cyanosis and No Edema
Skin: Negative Rash
Neuro: Nonfocal/Grossly Intact
--- NOTE | 2024-01-05 15:26 | CM ---
Addendum entered by Luci Garcia RN 01/06/24 15:34:
Spoke with [facility]; they have 5 RNs they are trying to reach re; their availability for shift care and to schedule a Meet & Greet with the patient, and are hoping to hear back from them by the end of the week. [facility] reiterated that
patient is medically ready now for d/c and if they could line up nurses sooner that would be our strong preference.
Original Note:
Patient with Hx Mast Cell Activation Syndrome, dystonia/movement disorder, chronic pain syndrome, gastroparesis with Dx Gram-negative bacteremia due to chronic infected PICC line.
Spoke with Roslyn Mcgowan, District Operations Manager [facility] (ph [phone]); [facility] may have RNs available and Roslyn will be able to confirm this tomorrow. Once confirmed, [facility] will be coordinating a Meet and Greet with
the patient. Roslyn has not received confirmation from any referred agency that they have non-skilled caregivers available.
Mimi from [facility] called [facility] stating they had a skilled nurse available - met with patient with Mimi on speaker phone, however Mimi conveyed their skilled nurse was an UNSTACKER who cannot give IV meds. [facility] informed patient multiple agencies
have been contacted to line up RN & caregivers.
Plan follow up with Roslyn tomorrow if [facility] has RNs available/who will accept the assignment.
[2024-01-05] MEDS: BENADRYL 50.5 MG IV ×2 (16:14→20:38)
[2024-01-05] MEDS: ZYRTEC 10 MG TUBE ×2 (17:43→21:04)
--- NOTE | 2024-01-05 20:30 | PTCARENOTE ---
pt had started extended dystonic episodes earlier in the day and it was still continuing for the start of shift. See MAR for administration of schedule Ativan and Subutex and prn Benadryl for administration times from start if episode.
While evaluating pt she was able to talk, take off arm brace, and open arm so this RN could get access to her PICC all during her dystonic episode.
The next available doses were given for schedule Ativan and Subutex and prn Benadryl - see MAR administration times. this dystonic episode lasted an extended time which ended at 2029.
WAN Anthony was made aware of episode.
Directly afterwards pt was sitting up talking and eating dinner w/o issue.
[2024-01-05] MEDS: GASTROCROM PO (20:37)
[2024-01-05] MEDS: TYLENOL 650 MG PO (21:04)
[2024-01-05] MEDS: FEOSOL 325 MG PO (21:23)
[2024-01-05] MEDS: GASTROCROM 300 MG PO (21:26)
[2024-01-05 21:33] LABS: Glucose - Point of Care 103 mg/dl (70-99)
[2024-01-06] VITALS (7 sets, daily range): BP systolic 102–111; BP diastolic 65–85
[2024-01-06] MEDS: ZOFRAN 4 MG IV ×4 (00:29→23:05)
[2024-01-06] MEDS: ATIVAN 1 MG SL ×4 (03:15→21:33)
[2024-01-06] MEDS: BENADRYL SOLUTION 25 MG TUBE ×6 (03:15→21:39)
[2024-01-06] MEDS: SINEMET 25-100 1.5 TABLET TUBE ×2 (05:57→10:23)
[2024-01-06] MEDS: LIORESAL 10 MG TUBE ×3 (05:57→21:35)
[2024-01-06] MEDS: PULMICORT 0.5 MG INH ×2 (07:14→19:17)
[2024-01-06] MEDS: DUONEB 3 ML INH ×3 (07:14→17:20)
[2024-01-06] MEDS: TYLENOL 650 MG PO ×3 (10:15→21:40)
[2024-01-06] MEDS: GASTROCROM 300 MG PO ×4 (10:16→21:34)
[2024-01-06] MEDS: BACTROBAN 2% OINTMENT TOPICAL (10:18)
[2024-01-06] MEDS: LIDOCAINE 4% PATCH 1 PATCH TOPICAL (10:20)
[2024-01-06] MEDS: HYDREA 500 MG PO ×2 (10:21→21:37)
[2024-01-06] MEDS: CLARITIN 10 MG TUBE (10:22)
[2024-01-06] MEDS: DELTASONE 10 MG TUBE ×2 (10:22→21:34)
[2024-01-06] MEDS: VITAMIN B1 100 MG TUBE (10:22)
[2024-01-06] MEDS: SUBUTEX 2 MG SL ×4 (10:23→21:33)
[2024-01-06] MEDS: ELIQUIS 5 MG PO ×2 (10:24→21:37)
[2024-01-06] MEDS: INDERAL 10 MG TUBE ×3 (10:24→21:36)
[2024-01-06] MEDS: COLACE 100 MG PO (10:25)
[2024-01-06] MEDS: PEPCID 40 MG IV ×2 (10:25→21:39)
[2024-01-06] MEDS: NSS (PRESERVATIVE FREE) 6 ML IV ×2 (10:29→21:39)
[2024-01-06] MEDS: NON-FORMULARY ITEM 1 UNIT PO ×2 (10:30→21:38)
[2024-01-06] MEDS: NON-FORMULARY ITEM 1 MG PO ×2 (10:30→21:38)
[2024-01-06] MEDS: NON-FORMULARY ITEM 80 MG PO (10:31)
[2024-01-06] MEDS: MIRALAX TUBE (10:33)
[2024-01-06] MEDS: DESENEX/MITRAZOL/ZEASORB 1 APPLIC TOPICAL ×2 (10:33→21:35)
[2024-01-06] MEDS: ZADITOR 1 DROP BOTH EYES ×2 (10:34→21:39)
[2024-01-06] MEDS: NOVOLOG FLEXPEN SC (10:50)
[2024-01-06] MEDS: LANTUS 0.1 UNITS SC (10:51)
[2024-01-06] MEDS: NOVOLOG FLEXPEN-LOW RESISTANCE SC ×3 (11:00→17:16)
[2024-01-06 11:05] LABS: Glucose - Point of Care 88 mg/dl (70-99)
[2024-01-06] MEDS: BENADRYL 50.5 MG IV ×3 (12:13→21:52)
--- NOTE | 2024-01-06 12:26 | PTCARENOTE ---
Dystonic episode started at approximately 12:05. PRN Benadryl currently infusing. Respiratory at bedside. Emotional support provided. Dr. Kirk aware.
[2024-01-06 13:31] LABS: Glucose - Point of Care 118 mg/dl (70-99)
[2024-01-06] MEDS: NOVOLOG FLEXPEN 3 UNITS SC ×2 (13:38→18:05)
[2024-01-06] MEDS: NON-FORMULARY ITEM 200 MG PO (13:40)
[2024-01-06] MEDS: SINEMET 25-100 2 TABLET TUBE ×2 (13:41→17:02)
[2024-01-06] MEDS: ZYRTEC 10 MG TUBE ×2 (17:02→21:36)
--- NOTE | 2024-01-06 17:05 | W.PN.HOSP.TC ---
Today's Communication/Plan
-
Has been off Benadryl drip.
Remains with at at least once a day dystonic episodes while being awake and communicative throughout each episode.
Disposition efforts.
Assessment / Plan
Assessment / Plan
Impression:
Gram-negative bacteremia due to chronic infected PICC line.
Conditions prior to admission:
1. Mast cell activation syndrome.
2. Chronic dystonic reaction.
3. Orthostatic hypotension with postural orthostatic and tachycardia syndrome.
4. Dopa sensitive dystonia.
5. Steroid-induced diabetes.
6. Prior history of deep venous thrombosis and pulmonary embolism.
7. Chronic pain syndrome.
8. Migraine headaches.
9. Gastroesophageal reflux disease.
10. Benzodiazepine and opiate dependence.
11. Restless legs syndrome.
12. Insomnia.
13. History of vocal cord dysfunction.
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
15. Gastroparesis.
16. 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
17. 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
A/P:
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
PICC line removed and PICC line replaced on 09/23
Repeated blood cultures negative on 09/20 but no other cultures obtained
Finished cipro on 10/06/23 (was on 750mg BID)
GJ tube in place
Replaced by interventional radiology on 09/22
Replaced by interventional radiology 11/04 due to concern leakage
IR reconsulted 12/25 due to leakage around GJ tube, bumper tightened by IR and leakage stopped, IR will still plan for repeat exchange in coming week (not sure if this is necessary if leakage stopped)
HX Recurrent Anaphylaxis / Mast Cell Flare Episodes on chronic steroids
Mast Cell Activation Syndrome
DOPA-Responsive Dystonia
follows with Dr. Lizabeth Villanueva at [facility] hematology.
Continue Ativan
cont Gleevac, steroids
Levalbuterol as needed
Continue carbidopa levodopa
prednisone continued
Outpatient IV Benadryl drip at 15 mg/hr upon presentation. As discussed with primary professional skateboarder Dr. Mora plan is to slowly taper.
Multiple conversations with patient almost on a daily basis in regards to goals of care including attempt to wean off Benadryl drip with possibly substitution to oral regimen to facilitate discharge as well as outpatient management. Patient has been
resistant to wean off Benadryl drip completely at this point as per Dr. Kirk
11/26. Multidisciplinary meeting including psychiatry, clinical pharmacy, medicine, nursing.
Patient clinical course along with medication regimen has been reviewed.
With the goal of minimize exposure to IV medications and optimize regimen following changes implemented:
-Daily IV fluids discontinued with plan to monitor oral intake and orthostatics.
-IV Benadryl pushes have been discontinued.
-Lorazepam sublingual as needed order has been discontinued.
-IV lorazepam has been discontinued
Initiated:
Benadryl 25 mg infusion through piggyback will be provided over 10 minutes for breakthrough dystonic attack.
Benadryl p.o. 25 mg will be scheduled every 4 hours.
Lorazepam sublingual 1 mg with the scheduled while awake every 4 hours.
Hydromorphone p.o. 8 mg Q6H PRN will be continued for severe pain along with Suboxone.
12/02.
Multidisciplinary discussion involving nursing, primary service, psychiatry, pharmacy, case management
Plan is to continue current care including intravenous Benadryl drip wean. Schedule below:
Diphenhydramine continuous infusion taper schedule Q72hr
12/18 @1300 � 8/5 @1259 � 2MG/HR
12/21 @1300 � 8/8 @1259 � 1MG/HR
12/25 @1300 � 8/11 @0.5 mg/hr, and plan to further decrease to 0.25 mg/hr starting 12/28
Can consider increasing diphenhydramine PO up to max 300mg/day IF NEEDED. Would recommend increasing if episodes increase.
Current dose is 25 mg Q4H via tube, would increase to 37.5mg Q4H IF NEEDED, completely off the drip 12/29
dystonia/movement disorder-patient apparently has dystonic features with her mast cell activation syndrome.
could not find in literature as a routine clinical presentation but according to patient apparently this is very unusual feature which was noted in few other patients.
She was on IV Benadryl pump at 15 mg/h at home.
-baclofen continued
-sinemet continued
-episodes with vasovagal response when trying to have a BM- start standing miralax and colace BID--now saying she soils herself with coughing episodes
Chronic pain syndrome on high doses of narcotics (chronic opioid use with dependence) including p.o. Dilaudid and Suboxone at home.
Again unclear the source of her pain.
Follow-up with usual air cargo specialist after discharge.
GERD
-famotidine continued
-acipHex continued
-simethicone continued
iron def anemia
-ferrous sulfate continued
hxt of tachycardia
-EKG with sinus tachycardia
-propranolol continued
Chronic Nausea / Esophageal Dysmotility/gastroparesis
History GJ tube
-Continue diet as tolerated.
-Continue G-tube to gravity for chronic nausea.
-Meds via J-tube.
-Zofran every 8 hours as needed
-Continue Pepcid
-emend continued
-PEG tube site without any signs of cellulitis. CT of the abdomen pelvis shows no subcutaneous collection around the PEG tube and it is in place.
Acute fractures of the left 6 anterolateral 6th and 7th ribs
-Suspect from recent fall on 10/03
-10/25 complains of pain on the posterolateral lower ribs
-Continue lidocaine patch, heating packs
Steroid-Induced DM-II
She remains on steady dose of prednisone- has cushingoid features on physical exam
Blood glucose remains marginal
Monitor oral intake
Reduce Lantus and NovoLog AC
Continue serial Accu-Cheks with basal bolus protocol.
s/p fall overnight 10/03-10/04
imaging negative for bleed or fracture
Steroid-Induced Osteoporosis
- PT / OT evaluations.
allergy induced asthma
chronic hypoxic respiratory failure on O2
-albuterol continued
-budesonide continued
-cetirizine continued
-cromolyn continued
Thrush
Completed course of clotrimazole Troches for thrush
Migraine Hx
ODT Nurtec as needed
Restless leg syndrome
-Continue baclofen
History of DVT/PE
S/p Lovenox weight-based dose. Currently on eliquis
DNR on admission
Disposition: Discussion with primary professional skateboarder Dr. Ethan Villanueva on 10/09. Discussed possibility of attempting weaning Benadryl drip likely could be done as outpatient. With current family social situation, unfortunately there is no options
for disposition other than home on IV infusion. Possibility of a transfer to [facility] discussed as well, although according to Dr. Villanueva hospital administration declined services due to complexity. Also discussed possibility of
transfer to tertiary center ([facility] declined in the past).
10/[address] Villanueva over the phone as well as [facility] transfer center.
Complex patient. Attempt to wean off Benadryl drip over the last 2 weeks with persistent dystonic episodes.
While patient is relatively stable with her current condition, given complex clinical picture requiring multi disciplinary approach not limited to medicine, hematology, allergology, as well as neuropsychiatric assessment, patient would be better
served at a tertiary facility. Patient was accepted to [facility] for transfer, but hospital administration denied her transfer due to complexity (discussed with patient who is aware)
Total time spent to see the patient on the floor, examine the patient, review data and lab results, discuss treatment plan with patient, nursing staff around 37 minutes.
Anticipated Discharge: - 48 hours
Subjective/Interval History
-
Date of Service: January 06, 2024
Objective Data
-
Vital Signs:
Vital Signs
Temp Pulse Resp BP Pulse Ox
98.1 F 96 15 111/85 99
01/06/24 11:55 01/06/24 14:00 01/06/24 14:00 01/06/24 12:00 01/06/24 07:15
I&O
01/05/24 01/06/24 01/07/24
06:59 06:59 06:59
Intake Total 570 / 570 1160 / 1160
Output Total 2024 900 / 900
Balance -1455 / -1455 260 / 260
Physical Exam
-
General: Well Developed and No Apparent Distress
HEENT: Normocephalic, Atraumatic and Moist Mucous Membranes
Respiratory: Clear to Auscultation
Cardiac: Regular Rhythm and S1/S2; Negative Murmur, Rub or Gallop
GI: Soft, Nontender, Nondistended and Normal Bowel Sounds; Negative Organomegaly
Rectal: Deferred by Provider
Musculoskeletal: No Clubbing, No Cyanosis and No Edema
Skin: Negative Rash
Neuro: Nonfocal/Grossly Intact
[2024-01-06 17:09] LABS: Glucose - Point of Care 127 mg/dl (70-99)
--- NOTE | 2024-01-06 18:11 | PTCARENOTE ---
Had another episode at approx 1700. Resolved after benadryl infusion.
--- NOTE | 2024-01-06 19:15 | PTCARENOTE ---
pt aaox3, no complaints. resting in bed watching tv at start of shift.
[2024-01-06] MEDS: COLACE PO (21:35)
[2024-01-06] MEDS: FEOSOL 325 MG PO (21:36)
[2024-01-06 22:22] LABS: Glucose - Point of Care 116 mg/dl (70-99)
--- NOTE | 2024-01-06 22:30 | PTCARENOTE ---
pt started at 2100 that she might have an episode. at 214 pt started w/ her dystonic episodes, and resolved shortly after prn benadryl infusion
During episode pt was talking and stated that it is going to be a short one. After episode ended pt sitting up washing face and giving herself a nighttime wash.
[2024-01-07] VITALS: BP 108/76
[2024-01-07] MEDS: ATIVAN 1 MG SL ×4 (03:27→21:07)
[2024-01-07] MEDS: BENADRYL SOLUTION 25 MG TUBE ×6 (03:27→21:08)
[2024-01-07 04:00] VITALS: BP 98/60
[2024-01-07] MEDS: SINEMET 25-100 1.5 TABLET TUBE ×2 (06:13→09:53)
[2024-01-07] MEDS: LIORESAL 10 MG TUBE ×3 (06:13→21:07)
[2024-01-07] MEDS: PULMICORT 0.5 MG INH ×2 (07:27→21:15)
[2024-01-07 08:00] VITALS: BP 118/81
[2024-01-07] MEDS: GASTROCROM 300 MG PO ×4 (09:51→21:06)
[2024-01-07] MEDS: NOVOLOG FLEXPEN 3 UNITS SC ×3 (09:52→17:58)
[2024-01-07] MEDS: NOVOLOG FLEXPEN-LOW RESISTANCE SC ×3 (09:53→17:57)
[2024-01-07] MEDS: HYDREA 500 MG PO ×2 (09:57→20:55)
[2024-01-07] MEDS: NSS (PRESERVATIVE FREE) 6 ML IV ×2 (09:58→20:57)
[2024-01-07] MEDS: PEPCID 40 MG IV ×2 (09:58→20:57)
[2024-01-07] MEDS: SUBUTEX 2 MG SL ×4 (09:59→21:07)
[2024-01-07] MEDS: COLACE 100 MG PO ×2 (10:00→20:54)
[2024-01-07 10:01] LABS: Glucose - Point of Care 75 mg/dl (70-99)
[2024-01-07] MEDS: DELTASONE 10 MG TUBE ×2 (10:01→20:55)
[2024-01-07] MEDS: VITAMIN B1 100 MG TUBE (10:01)
[2024-01-07] MEDS: ELIQUIS 5 MG PO ×2 (10:02→20:55)
[2024-01-07] MEDS: INDERAL 10 MG TUBE ×3 (10:02→21:08)
[2024-01-07] MEDS: MIRALAX 17 GRAMS TUBE (10:03)
[2024-01-07] MEDS: CLARITIN 10 MG TUBE (10:03)
[2024-01-07] MEDS: LIDOCAINE 4% PATCH 1 PATCH TOPICAL (10:03)
[2024-01-07] MEDS: NON-FORMULARY ITEM 80 MG PO (10:05)
[2024-01-07] MEDS: DESENEX/MITRAZOL/ZEASORB 1 APPLIC TOPICAL ×2 (10:06→20:55)
[2024-01-07] MEDS: NON-FORMULARY ITEM 1 UNIT PO ×3 (10:07→20:57)
[2024-01-07] MEDS: NON-FORMULARY ITEM 1 MG PO ×2 (10:07→20:56)
[2024-01-07] MEDS: ZADITOR 1 DROP BOTH EYES ×2 (10:08→20:58)
[2024-01-07] MEDS: LANTUS 0.1 UNITS SC (10:13)
[2024-01-07] MEDS: ZOFRAN 4 MG IV ×2 (10:13→18:07)
[2024-01-07] MEDS: TYLENOL 650 MG PO (10:13)
[2024-01-07 12:00] VITALS: BP 117/84
[2024-01-07 13:32] LABS: Glucose - Point of Care 108 mg/dl (70-99)
[2024-01-07] MEDS: BENADRYL 50.5 MG IV (14:02)
[2024-01-07] MEDS: SINEMET 25-100 2 TABLET TUBE ×2 (14:04→17:55)
[2024-01-07] MEDS: DUONEB 3 ML INH (14:05)
--- NOTE | 2024-01-07 14:50 | W.PN.HOSP.TC ---
Today's Communication/Plan
-
Disposition efforts
Remains off of IV Benadryl drip.
Assessment / Plan
Assessment / Plan
Impression:
Gram-negative bacteremia due to chronic infected PICC line.
Conditions prior to admission:
1. Mast cell activation syndrome.
2. Chronic dystonic reaction.
3. Orthostatic hypotension with postural orthostatic and tachycardia syndrome.
4. Dopa sensitive dystonia.
5. Steroid-induced diabetes.
6. Prior history of deep venous thrombosis and pulmonary embolism.
7. Chronic pain syndrome.
8. Migraine headaches.
9. Gastroesophageal reflux disease.
10. Benzodiazepine and opiate dependence.
11. Restless legs syndrome.
12. Insomnia.
13. History of vocal cord dysfunction.
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
15. Gastroparesis.
16. 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
17. 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
A/P:
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
PICC line removed and PICC line replaced on 09/23
Repeated blood cultures negative on 09/20 but no other cultures obtained
Finished cipro on 10/06/23 (was on 750mg BID)
GJ tube in place
Replaced by interventional radiology on 09/22
Replaced by interventional radiology 11/04 due to concern leakage
IR reconsulted 12/25 due to leakage around GJ tube, bumper tightened by IR and leakage stopped, IR will still plan for repeat exchange in coming week (not sure if this is necessary if leakage stopped)
HX Recurrent Anaphylaxis / Mast Cell Flare Episodes on chronic steroids
Mast Cell Activation Syndrome
DOPA-Responsive Dystonia
follows with Dr. Lizabeth Villanueva at [facility] hematology.
Continue Ativan
cont Gleevac, steroids
Levalbuterol as needed
Continue carbidopa levodopa
prednisone continued
Outpatient IV Benadryl drip at 15 mg/hr upon presentation. As discussed with primary mortgage or loan underwriter Dr. Mora plan is to slowly taper.
Multiple conversations with patient almost on a daily basis in regards to goals of care including attempt to wean off Benadryl drip with possibly substitution to oral regimen to facilitate discharge as well as outpatient management. Patient has been
resistant to wean off Benadryl drip completely at this point as per Dr. Kirk
11/26. Multidisciplinary meeting including psychiatry, clinical pharmacy, medicine, nursing.
Patient clinical course along with medication regimen has been reviewed.
With the goal of minimize exposure to IV medications and optimize regimen following changes implemented:
-Daily IV fluids discontinued with plan to monitor oral intake and orthostatics.
-IV Benadryl pushes have been discontinued.
-Lorazepam sublingual as needed order has been discontinued.
-IV lorazepam has been discontinued
Initiated:
Benadryl 25 mg infusion through piggyback will be provided over 10 minutes for breakthrough dystonic attack.
Benadryl p.o. 25 mg will be scheduled every 4 hours.
Lorazepam sublingual 1 mg with the scheduled while awake every 4 hours.
Hydromorphone p.o. 8 mg Q6H PRN will be continued for severe pain along with Suboxone.
12/02.
Multidisciplinary discussion involving nursing, primary service, psychiatry, pharmacy, case management
Plan is to continue current care including intravenous Benadryl drip wean. Schedule below:
Diphenhydramine continuous infusion taper schedule Q72hr
12/18 @1300 � 8/ @1259 � 2MG/HR
12/21 @1300 � 8 @1259 � 1MG/HR
12/25 @1300 � 8/ @0.5 mg/hr, and plan to further decrease to 0.25 mg/hr starting 12/28
Can consider increasing diphenhydramine PO up to max 300mg/day IF NEEDED. Would recommend increasing if episodes increase.
Current dose is 25 mg Q4H via tube, would increase to 37.5mg Q4H IF NEEDED, completely off the drip 12/29
dystonia/movement disorder-patient apparently has dystonic features with her mast cell activation syndrome.
could not find in literature as a routine clinical presentation but according to patient apparently this is very unusual feature which was noted in few other patients.
She was on IV Benadryl pump at 15 mg/h at home.
-baclofen continued
-sinemet continued
-episodes with vasovagal response when trying to have a BM- start standing miralax and colace BID--now saying she soils herself with coughing episodes
Chronic pain syndrome on high doses of narcotics (chronic opioid use with dependence) including p.o. Dilaudid and Suboxone at home.
Again unclear the source of her pain.
Follow-up with usual technical applications specialist after discharge.
GERD
-famotidine continued
-acipHex continued
-simethicone continued
iron def anemia
-ferrous sulfate continued
hxt of tachycardia
-EKG with sinus tachycardia
-propranolol continued
Chronic Nausea / Esophageal Dysmotility/gastroparesis
History GJ tube
-Continue diet as tolerated.
-Continue G-tube to gravity for chronic nausea.
-Meds via J-tube.
-Zofran every 8 hours as needed
-Continue Pepcid
-emend continued
-PEG tube site without any signs of cellulitis. CT of the abdomen pelvis shows no subcutaneous collection around the PEG tube and it is in place.
Acute fractures of the left 6 anterolateral 6th and 7th ribs
-Suspect from recent fall on 10/03
-10/25 complains of pain on the posterolateral lower ribs
-Continue lidocaine patch, heating packs
Steroid-Induced DM-II
She remains on steady dose of prednisone- has cushingoid features on physical exam
Blood glucose remains marginal
Monitor oral intake
Reduce Lantus and NovoLog AC
Continue serial Accu-Cheks with basal bolus protocol.
s/p fall overnight 10/03-10/04
imaging negative for bleed or fracture
Steroid-Induced Osteoporosis
- PT / OT evaluations.
allergy induced asthma
chronic hypoxic respiratory failure on O2
-albuterol continued
-budesonide continued
-cetirizine continued
-cromolyn continued
Thrush
Completed course of clotrimazole Troches for thrush
Migraine Hx
ODT Nurtec as needed
Restless leg syndrome
-Continue baclofen
History of DVT/PE
S/p Lovenox weight-based dose. Currently on eliquis
DNR on admission
Disposition: Discussion with primary mortgage or loan underwriter Dr. Ethan Villanueva on 10/09. Discussed possibility of attempting weaning Benadryl drip likely could be done as outpatient. With current family social situation, unfortunately there is no options
for disposition other than home on IV infusion. Possibility of a transfer to [facility] discussed as well, although according to Dr. Villanueva hospital administration declined services due to complexity. Also discussed possibility of
transfer to tertiary center ([facility] declined in the past).
10/[address] Villanueva over the phone as well as [facility] transfer center.
Complex patient. Attempt to wean off Benadryl drip over the last 2 weeks with persistent dystonic episodes.
While patient is relatively stable with her current condition, given complex clinical picture requiring multi disciplinary approach not limited to medicine, hematology, allergology, as well as neuropsychiatric assessment, patient would be better
served at a tertiary facility. Patient was accepted to [facility] for transfer, but hospital administration denied her transfer due to complexity (discussed with patient who is aware)
Total time spent to see the patient on the floor, examine the patient, review data and lab results, discuss treatment plan with patient, nursing staff around 37 minutes.
Anticipated Discharge: 24 - 48 hours
Subjective/Interval History
-
Date of Service: January 07, 2024
Objective Data
-
Vital Signs:
Vital Signs
Temp Pulse Resp BP Pulse Ox
98.2 F 145 18 118/81 100
01/07/24 11:55 01/07/24 14:09 01/07/24 14:09 01/07/24 10:02 01/07/24 14:09
I&O
01/06/24 01/07/24 01/08/24
06:59 06:59 06:59
Intake Total 1160 / 1160 1970 / 1970
Output Total 900 / 900 2750 / 2750
Balance 260 / 260 -780 / -780
Physical Exam
-
General: Well Developed and No Apparent Distress
HEENT: Normocephalic, Atraumatic and Moist Mucous Membranes
Respiratory: Clear to Auscultation
Cardiac: Regular Rhythm and S1/S2; Negative Murmur, Rub or Gallop
GI: Soft, Nontender, Nondistended and Normal Bowel Sounds; Negative Organomegaly
Rectal: Deferred by Provider
Musculoskeletal: No Clubbing, No Cyanosis and No Edema
Skin: Negative Rash
Neuro: Nonfocal/Grossly Intact
[2024-01-07] MEDS: NON-FORMULARY ITEM 100 MG PO (15:36)
--- NOTE | 2024-01-07 16:02 | PTCARENOTE ---
Pt had one dystonic episode today lasting approximately 45 minutes. Another RN had given her meds in Peg tube for this RN and explained that a small amount leaked onto the pad but not much. RN observed a small amount of liquid on her pad. Once pt
improved, she stated that she did not believe she got any of the meds the other RN gave and felt they had all leaked out. RN explained that is not the case plus there was no way to know how much came out so would not be appropriate to give
additional doses. Pt began to cry and became very upset. RN provided support. Pt is calmer now but remains upset
--- NOTE | 2024-01-07 17:04 | CM ---
Patient with Hx Mast Cell Activation Syndrome, dystonia/movement disorder, chronic pain syndrome, gastroparesis with Dx Gram-negative bacteremia due to chronic infected PICC line.
Phone call to Roslyn Ferreira, Railroader [facility] [facility] [place] ([place] [phone]); left message requesting update on efforts for RN skilled shift care and non-skilled caregivers. No callback from [facility] re; update on skilled nurse
availability.
Case discussed with Brigida Leavitt & Susanna Farrell, CM Directors.
Plan ongoing CM efforts with agencies who can provide skilled RNs & caregivers.
[2024-01-07] MEDS: ZYRTEC 10 MG TUBE ×2 (17:55→21:08)
[2024-01-07 18:02] LABS: Glucose - Point of Care 124 mg/dl (70-99)
[2024-01-07 18:17] VITALS: BP 122/95
[2024-01-07 20:00] VITALS: BP 117/72
[2024-01-07] MEDS: FEOSOL 325 MG PO (21:07)
[2024-01-07 22:39] LABS: Glucose - Point of Care 112 mg/dl (70-99)
[2024-01-08] VITALS (7 sets, daily range): BP systolic 100–118; BP diastolic 75–92; PULSE 86–138
[2024-01-08] MEDS: BENADRYL 50.5 MG IV ×4 (01:07→20:19)
[2024-01-08] MEDS: ZOFRAN 4 MG IV ×3 (01:09→20:19)
--- NOTE | 2024-01-08 01:17 | PTCARENOTE ---
Patient with dystonia episode, prn benadryl given. patient requesting zofran and ice packs as well.
[2024-01-08] MEDS: BENADRYL SOLUTION 25 MG TUBE ×6 (03:08→21:05)
[2024-01-08] MEDS: ATIVAN 1 MG SL ×4 (03:08→21:04)
[2024-01-08] MEDS: SINEMET 25-100 1.5 TABLET TUBE ×2 (06:25→09:16)
[2024-01-08] MEDS: LIORESAL 10 MG TUBE ×3 (06:25→21:05)
[2024-01-08] MEDS: PULMICORT 0.5 MG INH ×2 (08:26→20:24)
[2024-01-08] MEDS: SUBUTEX 2 MG SL ×4 (09:08→21:04)
[2024-01-08] MEDS: PEPCID 40 MG IV ×2 (09:08→19:47)
[2024-01-08] MEDS: HYDREA 500 MG PO ×2 (09:09→19:44)
[2024-01-08] MEDS: DELTASONE 10 MG TUBE ×2 (09:09→19:44)
[2024-01-08] MEDS: VITAMIN B1 100 MG TUBE (09:10)
--- NOTE | 2024-01-08 09:20 | PTCARENOTE ---
Pt now AAOx3, pleasant and cooperative. Pt had a mod fomed BM. Purewick changed. Meds given as ordered.
[2024-01-08] MEDS: INDERAL 10 MG TUBE ×3 (09:21→21:04)
[2024-01-08] MEDS: COLACE PO ×2 (09:23→19:44)
[2024-01-08] MEDS: ELIQUIS 5 MG PO ×2 (09:23→19:44)
[2024-01-08] MEDS: GASTROCROM 300 MG PO ×4 (09:26→21:05)
[2024-01-08] MEDS: NON-FORMULARY ITEM 1 MG PO ×3 (09:26→19:45)
[2024-01-08] MEDS: NON-FORMULARY ITEM 1 UNIT PO ×2 (09:26→19:46)
[2024-01-08] MEDS: DESENEX/MITRAZOL/ZEASORB 1 APPLIC TOPICAL ×2 (09:27→19:44)
[2024-01-08] MEDS: ZADITOR 1 DROP BOTH EYES ×2 (09:29→19:48)
[2024-01-08] MEDS: MIRALAX TUBE (09:30)
[2024-01-08] MEDS: NSS (PRESERVATIVE FREE) 6 ML IV ×2 (09:30→19:46)
[2024-01-08] MEDS: LIDOCAINE 4% PATCH 1 PATCH TOPICAL (09:30)
[2024-01-08] MEDS: CLARITIN 10 MG TUBE (09:42)
[2024-01-08] MEDS: NOVOLOG FLEXPEN SC (09:49)
[2024-01-08] MEDS: NOVOLOG FLEXPEN-LOW RESISTANCE SC ×3 (09:49→17:17)
[2024-01-08] MEDS: LANTUS 0.1 UNITS SC (09:50)
[2024-01-08 09:51] LABS: Glucose - Point of Care 89 mg/dl (70-99)
[2024-01-08 13:09] LABS: Glucose - Point of Care 118 mg/dl (70-99)
[2024-01-08] MEDS: NOVOLOG FLEXPEN 3 UNITS SC ×2 (13:32→18:29)
[2024-01-08] MEDS: TYLENOL 650 MG PO (13:36)
[2024-01-08] MEDS: SINEMET 25-100 2 TABLET TUBE ×2 (13:37→17:06)
[2024-01-08] MEDS: NON-FORMULARY ITEM 2 MG PO (13:39)
--- NOTE | 2024-01-08 15:03 | W.PN.HOSP.TC ---
Today's Communication/Plan
-
Supportive care per
Discharge planning
Assessment / Plan
Assessment / Plan
Impression:
Gram-negative bacteremia due to chronic infected PICC line.
Conditions prior to admission:
1. Mast cell activation syndrome.
2. Chronic dystonic reaction.
3. Orthostatic hypotension with postural orthostatic and tachycardia syndrome.
4. Dopa sensitive dystonia.
5. Steroid-induced diabetes.
6. Prior history of deep venous thrombosis and pulmonary embolism.
7. Chronic pain syndrome.
8. Migraine headaches.
9. Gastroesophageal reflux disease.
10. Benzodiazepine and opiate dependence.
11. Restless legs syndrome.
12. Insomnia.
13. History of vocal cord dysfunction.
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
15. Gastroparesis.
16. 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
17. 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
A/P:
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
PICC line removed and PICC line replaced on 09/23
Repeated blood cultures negative on 09/20 but no other cultures obtained
Finished cipro on 10/06/23 (was on 750mg BID)
GJ tube in place
Replaced by interventional radiology on 09/22
Replaced by interventional radiology 11/04 due to concern leakage
IR reconsulted 12/25 due to leakage around GJ tube, bumper tightened by IR and leakage stopped, IR will still plan for repeat exchange in coming week (not sure if this is necessary if leakage stopped)
HX Recurrent Anaphylaxis / Mast Cell Flare Episodes on chronic steroids
Mast Cell Activation Syndrome
DOPA-Responsive Dystonia
follows with Dr. Lizabeth Villanueva at [facility] hematology.
Continue Ativan
cont Gleevac, steroids
Levalbuterol as needed
Continue carbidopa levodopa
prednisone continued
Outpatient IV Benadryl drip at 15 mg/hr upon presentation. As discussed with primary object oriented developer Dr. Mora plan is to slowly taper.
Multiple conversations with patient almost on a daily basis in regards to goals of care including attempt to wean off Benadryl drip with possibly substitution to oral regimen to facilitate discharge as well as outpatient management. Patient has been
resistant to wean off Benadryl drip completely at this point as per Dr. Kirk
11/26. Multidisciplinary meeting including psychiatry, clinical pharmacy, medicine, nursing.
Patient clinical course along with medication regimen has been reviewed.
With the goal of minimize exposure to IV medications and optimize regimen following changes implemented:
-Daily IV fluids discontinued with plan to monitor oral intake and orthostatics.
-IV Benadryl pushes have been discontinued.
-Lorazepam sublingual as needed order has been discontinued.
-IV lorazepam has been discontinued
Initiated:
Benadryl 25 mg infusion through piggyback will be provided over 10 minutes for breakthrough dystonic attack.
Benadryl p.o. 25 mg will be scheduled every 4 hours.
Lorazepam sublingual 1 mg with the scheduled while awake every 4 hours.
Hydromorphone p.o. 8 mg Q6H PRN will be continued for severe pain along with Suboxone.
12/02.
Multidisciplinary discussion involving nursing, primary service, psychiatry, pharmacy, case management
Plan is to continue current care including intravenous Benadryl drip wean. Schedule below:
Diphenhydramine continuous infusion taper schedule Q72hr
12/18 @1299 � 8 @1259 � 2MG/HR
12/21 @1300 � 8 @1259 � 1MG/HR
12/25 @1299 � 8/ @0.5 mg/hr, and plan to further decrease to 0.25 mg/hr starting 12/28
Can consider increasing diphenhydramine PO up to max 300mg/day IF NEEDED. Would recommend increasing if episodes increase.
Current dose is 25 mg Q4H via tube, would increase to 37.5mg Q4H IF NEEDED, completely off the drip 12/29
dystonia/movement disorder-patient apparently has dystonic features with her mast cell activation syndrome.
could not find in literature as a routine clinical presentation but according to patient apparently this is very unusual feature which was noted in few other patients.
She was on IV Benadryl pump at 15 mg/h at home.
-baclofen continued
-sinemet continued
-episodes with vasovagal response when trying to have a BM- start standing miralax and colace BID--now saying she soils herself with coughing episodes
Chronic pain syndrome on high doses of narcotics (chronic opioid use with dependence) including p.o. Dilaudid and Suboxone at home.
Again unclear the source of her pain.
Follow-up with usual client relations specialist after discharge.
GERD
-famotidine continued
-acipHex continued
-simethicone continued
iron def anemia
-ferrous sulfate continued
hxt of tachycardia
-EKG with sinus tachycardia
-propranolol continued
Chronic Nausea / Esophageal Dysmotility/gastroparesis
History GJ tube
-Continue diet as tolerated.
-Continue G-tube to gravity for chronic nausea.
-Meds via J-tube.
-Zofran every 8 hours as needed
-Continue Pepcid
-emend continued
-PEG tube site without any signs of cellulitis. CT of the abdomen pelvis shows no subcutaneous collection around the PEG tube and it is in place.
Acute fractures of the left 6 anterolateral 6th and 7th ribs
-Suspect from recent fall on 10/03
-10/25 complains of pain on the posterolateral lower ribs
-Continue lidocaine patch, heating packs
Steroid-Induced DM-II
She remains on steady dose of prednisone- has cushingoid features on physical exam
Blood glucose remains marginal
Monitor oral intake
Reduce Lantus and NovoLog AC
Continue serial Accu-Cheks with basal bolus protocol.
s/p fall overnight 10/03-10/04
imaging negative for bleed or fracture
Steroid-Induced Osteoporosis
- PT / OT evaluations.
allergy induced asthma
chronic hypoxic respiratory failure on O2
-albuterol continued
-budesonide continued
-cetirizine continued
-cromolyn continued
Thrush
Completed course of clotrimazole Troches for thrush
Migraine Hx
ODT Nurtec as needed
Restless leg syndrome
-Continue baclofen
History of DVT/PE
S/p Lovenox weight-based dose. Currently on eliquis
DNR on admission
Disposition: Discussion with primary object oriented developer Dr. Ethan Villanueva on 10/09. Discussed possibility of attempting weaning Benadryl drip likely could be done as outpatient. With current family social situation, unfortunately there is no options
for disposition other than home on IV infusion. Possibility of a transfer to [facility] discussed as well, although according to Dr. Villanueva hospital administration declined services due to complexity. Also discussed possibility of
transfer to tertiary center ([facility] declined in the past).
10/[address] Villanueva over the phone as well as [facility] [place] transfer center.
Complex patient. Attempt to wean off Benadryl drip over the last 2 weeks with persistent dystonic episodes.
While patient is relatively stable with her current condition, given complex clinical picture requiring multi disciplinary approach not limited to medicine, hematology, allergology, as well as neuropsychiatric assessment, patient would be better
served at a tertiary facility. Patient was accepted to [facility] for transfer, but hospital administration denied her transfer due to complexity (discussed with patient who is aware)
Total time spent to see the patient on the floor, examine the patient, review data and lab results, discuss treatment plan with patient, nursing staff around 37 minutes.
Anticipated Discharge: 24 - 48 hours
Subjective/Interval History
-
Date of Service: January 08, 2024
Objective Data
-
Vital Signs:
Vital Signs
Temp Pulse Resp BP Pulse Ox
98.0 F 96 14 115/92 99
01/08/24 07:55 01/08/24 12:00 01/08/24 12:00 01/08/24 12:00 01/08/24 08:37
I&O
01/07/24 01/08/24 01/09/24
06:59 06:59 06:59
Intake Total 1969
Output Total 2750 / 2750 2099
Balance -780 / - -2099 / -2099
Physical Exam
-
General: Well Developed and No Apparent Distress
HEENT: Normocephalic, Atraumatic and Moist Mucous Membranes
Respiratory: Clear to Auscultation
Cardiac: Regular Rhythm and S1/S2; Negative Murmur, Rub or Gallop
GI: Soft, Nontender, Nondistended and Normal Bowel Sounds; Negative Organomegaly
Rectal: Deferred by Provider
Musculoskeletal: No Clubbing, No Cyanosis and No Edema
Skin: Negative Rash
Neuro: Nonfocal/Grossly Intact
--- NOTE | 2024-01-08 15:54 | CM ---
Addendum entered by Luci Garcia RN 01/08/24 16:10:
Met with patient and provided update re; progress with her home nurse/caregiver services. She spoke with [facility] and agrees to meet with the nurses on Friday.
Original Note:
Patient with Hx Mast Cell Activation Syndrome, dystonia/movement disorder, chronic pain syndrome, gastroparesis with Dx Gram-negative bacteremia due to chronic infected PICC line.
Scripts received from Dr Kirk: diphenhydramine 25mg IV Q4h prn, famotidine 40mg IV Q12h. Original scripts left on chart.
Spoke with Saravanan, pharmacist, [facility] ([place] [phone], fax [phone] or [phone]); scripts faxed for possible d/c 01/11 or 01/12.
Spoke with Swati, Kelly Machine Operator & Cutting Table Operator, [facility] ([place] [phone], cell [phone]); she received confirmation from [facility] that 168 hrs (24/7 coverage) are authorized for RN shift care. They have 2 RNs that may be
able to provide 24/7 shift care, and Meet & Greet is setup with patient for noon on 01/10. She is unsure if they have any non-skilled providers available. Referral placed in [facility].
Spoke with Roslyn Ferreira, Egg Breaking Machine Operator [facility] ([place] [phone]); she confirms 168 hrs of skilled RN services and 49 hrs (7 hrs/day 7 days/week) have been approved. She is aware [facility] has RNs that will meet the patient on
Friday and Roslyn is working with [employer] re; non-skilled caregiver availability.
Plan follow up with Roslyn tomorrow about non-skilled caregiver availability.
Plan follow up 01/11 with [facility] if RN 24/7 skilled services are fulfilled/confirmed.
Plan follow up with [facility] on 01/11.
[2024-01-08] MEDS: ZYRTEC 10 MG TUBE ×2 (16:21→21:05)
[2024-01-08 17:29] LABS: Glucose - Point of Care 98 mg/dl (70-99)
[2024-01-08] MEDS: DUONEB 3 ML INH (20:24)
[2024-01-08 20:36] LABS: Glucose - Point of Care 108 mg/dl (70-99)
[2024-01-08] MEDS: FEOSOL 325 MG PO (21:04)
[2024-01-09] VITALS (7 sets, daily range): BP systolic 103–129; BP diastolic 71–100
[2024-01-09] MEDS: BENADRYL SOLUTION 25 MG TUBE ×6 (02:53→21:50)
[2024-01-09] MEDS: ATIVAN 1 MG SL ×4 (03:00→21:03)
[2024-01-09] MEDS: SINEMET 25-100 1.5 TABLET TUBE ×2 (05:43→10:32)
[2024-01-09] MEDS: LIORESAL 10 MG TUBE ×3 (05:44→21:47)
[2024-01-09] MEDS: PULMICORT 0.5 MG INH ×2 (08:04→20:23)
[2024-01-09 08:21] LABS: Glucose - Point of Care 93 mg/dl (70-99)
[2024-01-09] MEDS: NOVOLOG FLEXPEN-LOW RESISTANCE SC ×3 (08:33→18:04)
[2024-01-09] MEDS: ZOFRAN 4 MG IV ×2 (09:48→19:58)
[2024-01-09] MEDS: BENADRYL 50.5 MG IV ×3 (09:48→20:55)
[2024-01-09] MEDS: DESENEX/MITRAZOL/ZEASORB 1 APPLIC TOPICAL ×2 (10:07→21:43)
[2024-01-09] MEDS: NOVOLOG FLEXPEN SC (10:08)
[2024-01-09] MEDS: GASTROCROM 300 MG PO ×4 (10:09→21:46)
[2024-01-09] MEDS: ZADITOR 1 DROP BOTH EYES ×2 (10:11→21:50)
[2024-01-09] MEDS: LANTUS 0.1 UNITS SC (10:14)
[2024-01-09] MEDS: NSS (PRESERVATIVE FREE) 6 ML IV ×2 (10:15→21:45)
[2024-01-09] MEDS: PEPCID 40 MG IV ×2 (10:15→21:46)
[2024-01-09] MEDS: LIDOCAINE 4% PATCH 1 PATCH TOPICAL (10:16)
[2024-01-09] MEDS: COLACE 100 MG PO ×2 (10:24→21:42)
[2024-01-09] MEDS: HYDREA 500 MG PO ×2 (10:25→21:44)
[2024-01-09] MEDS: NON-FORMULARY ITEM 80 MG PO (10:26)
[2024-01-09] MEDS: ELIQUIS 5 MG PO ×2 (10:28→21:44)
[2024-01-09] MEDS: NON-FORMULARY ITEM 1 MG PO ×2 (10:30→21:44)
[2024-01-09] MEDS: NON-FORMULARY ITEM 1 UNIT PO ×3 (10:30→21:45)
[2024-01-09] MEDS: VITAMIN B1 100 MG TUBE (10:31)
[2024-01-09] MEDS: CLARITIN 10 MG TUBE (10:31)
[2024-01-09] MEDS: SUBUTEX 2 MG SL ×4 (10:31→21:49)
[2024-01-09] MEDS: INDERAL 10 MG TUBE ×3 (10:31→21:47)
[2024-01-09] MEDS: MIRALAX TUBE (10:33)
[2024-01-09] MEDS: DELTASONE 10 MG TUBE ×2 (10:33→21:43)
[2024-01-09] MEDS: NOVOLOG FLEXPEN 3 UNITS SC ×2 (12:36→18:08)
[2024-01-09 12:38] LABS: Glucose - Point of Care 104 mg/dl (70-99)
--- NOTE | 2024-01-09 12:59 | CM ---
Addendum entered by Ketty Rodríguez RN 01/09/24 15:21:
JOJO received call from Roslyn at [facility]. She has confirmed that [facility] with provide RN care and no skilled care. Roslyn is requesting assistance with obtaining PT/OT services for patient as [facility] Cannot provide. CM
referred patient to [facility] for PT/OT.
Original Note:
CM left message for Roslyn Ferreira at [facility] to get an update on non-skilled overnight caregiver options.
[2024-01-09] MEDS: SINEMET 25-100 2 TABLET TUBE ×2 (14:59→18:08)
[2024-01-09] MEDS: NON-FORMULARY ITEM 200 MG PO (15:00)
--- NOTE | 2024-01-09 16:17 | W.PN.HOSP.TC ---
Today's Communication/Plan
-
Has been off Benadryl drip.
Ongoing disposition efforts and discharge planning.
Assessment / Plan
Assessment / Plan
Impression:
Gram-negative bacteremia due to chronic infected PICC line.
Conditions prior to admission:
1. Mast cell activation syndrome.
2. Chronic dystonic reaction.
3. Orthostatic hypotension with postural orthostatic and tachycardia syndrome.
4. Dopa sensitive dystonia.
5. Steroid-induced diabetes.
6. Prior history of deep venous thrombosis and pulmonary embolism.
7. Chronic pain syndrome.
8. Migraine headaches.
9. Gastroesophageal reflux disease.
10. Benzodiazepine and opiate dependence.
11. Restless legs syndrome.
12. Insomnia.
13. History of vocal cord dysfunction.
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
15. Gastroparesis.
16. 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
17. 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
A/P:
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
PICC line removed and PICC line replaced on 09/23
Repeated blood cultures negative on 09/20 but no other cultures obtained
Finished cipro on 10/06/23 (was on 750mg BID)
GJ tube in place
Replaced by interventional radiology on 09/22
Replaced by interventional radiology 11/04 due to concern leakage
IR reconsulted 12/25 due to leakage around GJ tube, bumper tightened by IR and leakage stopped, IR will still plan for repeat exchange in coming week (not sure if this is necessary if leakage stopped)
HX Recurrent Anaphylaxis / Mast Cell Flare Episodes on chronic steroids
Mast Cell Activation Syndrome
DOPA-Responsive Dystonia
follows with Dr. Lizabeth Villanueva at [facility] hematology.
Continue Ativan
cont Gleevac, steroids
Levalbuterol as needed
Continue carbidopa levodopa
prednisone continued
Outpatient IV Benadryl drip at 15 mg/hr upon presentation. As discussed with primary build and release manager Dr. Mora plan is to slowly taper.
Multiple conversations with patient almost on a daily basis in regards to goals of care including attempt to wean off Benadryl drip with possibly substitution to oral regimen to facilitate discharge as well as outpatient management. Patient has been
resistant to wean off Benadryl drip completely at this point as per Dr. Kirk
11/26. Multidisciplinary meeting including psychiatry, clinical pharmacy, medicine, nursing.
Patient clinical course along with medication regimen has been reviewed.
With the goal of minimize exposure to IV medications and optimize regimen following changes implemented:
-Daily IV fluids discontinued with plan to monitor oral intake and orthostatics.
-IV Benadryl pushes have been discontinued.
-Lorazepam sublingual as needed order has been discontinued.
-IV lorazepam has been discontinued
Initiated:
Benadryl 25 mg infusion through piggyback will be provided over 10 minutes for breakthrough dystonic attack.
Benadryl p.o. 25 mg will be scheduled every 4 hours.
Lorazepam sublingual 1 mg with the scheduled while awake every 4 hours.
Hydromorphone p.o. 8 mg Q6H PRN will be continued for severe pain along with Suboxone.
12/02.
Multidisciplinary discussion involving nursing, primary service, psychiatry, pharmacy, case management
Plan is to continue current care including intravenous Benadryl drip wean. Schedule below:
Diphenhydramine continuous infusion taper schedule Q72hr
12/18 @1300 � 8/ @1259 � 2MG/HR
12/21 @1300 � 8 @1259 � 1MG/HR
12/25 @1300 � 8/ @0.5 mg/hr, and plan to further decrease to 0.25 mg/hr starting 12/28
Can consider increasing diphenhydramine PO up to max 300mg/day IF NEEDED. Would recommend increasing if episodes increase.
Current dose is 25 mg Q4H via tube, would increase to 37.5mg Q4H IF NEEDED, completely off the drip 12/29
dystonia/movement disorder-patient apparently has dystonic features with her mast cell activation syndrome.
could not find in literature as a routine clinical presentation but according to patient apparently this is very unusual feature which was noted in few other patients.
She was on IV Benadryl pump at 15 mg/h at home.
-baclofen continued
-sinemet continued
-episodes with vasovagal response when trying to have a BM- start standing miralax and colace BID--now saying she soils herself with coughing episodes
Chronic pain syndrome on high doses of narcotics (chronic opioid use with dependence) including p.o. Dilaudid and Suboxone at home.
Again unclear the source of her pain.
Follow-up with usual underwriting specialist after discharge.
GERD
-famotidine continued
-acipHex continued
-simethicone continued
iron def anemia
-ferrous sulfate continued
hxt of tachycardia
-EKG with sinus tachycardia
-propranolol continued
Chronic Nausea / Esophageal Dysmotility/gastroparesis
History GJ tube
-Continue diet as tolerated.
-Continue G-tube to gravity for chronic nausea.
-Meds via J-tube.
-Zofran every 8 hours as needed
-Continue Pepcid
-emend continued
-PEG tube site without any signs of cellulitis. CT of the abdomen pelvis shows no subcutaneous collection around the PEG tube and it is in place.
Acute fractures of the left 6 anterolateral 6th and 7th ribs
-Suspect from recent fall on 10/03
-10/25 complains of pain on the posterolateral lower ribs
-Continue lidocaine patch, heating packs
Steroid-Induced DM-II
She remains on steady dose of prednisone- has cushingoid features on physical exam
Blood glucose remains marginal
Monitor oral intake
Reduce Lantus and NovoLog AC
Continue serial Accu-Cheks with basal bolus protocol.
s/p fall overnight 10/03-10/04
imaging negative for bleed or fracture
Steroid-Induced Osteoporosis
- PT / OT evaluations.
allergy induced asthma
chronic hypoxic respiratory failure on O2
-albuterol continued
-budesonide continued
-cetirizine continued
-cromolyn continued
Thrush
Completed course of clotrimazole Troches for thrush
Migraine Hx
ODT Nurtec as needed
Restless leg syndrome
-Continue baclofen
History of DVT/PE
S/p Lovenox weight-based dose. Currently on eliquis
DNR on admission
Disposition: Discussion with primary build and release manager Dr. Ethan Villanueva on 10/09. Discussed possibility of attempting weaning Benadryl drip likely could be done as outpatient. With current family social situation, unfortunately there is no options
for disposition other than home on IV infusion. Possibility of a transfer to [facility] discussed as well, although according to Dr. Villanueva hospital administration declined services due to complexity. Also discussed possibility of
transfer to tertiary center ([facility] declined in the past).
10/[address] Villanueva over the phone as well as [facility] transfer center.
Complex patient. Attempt to wean off Benadryl drip over the last 2 weeks with persistent dystonic episodes.
While patient is relatively stable with her current condition, given complex clinical picture requiring multi disciplinary approach not limited to medicine, hematology, allergology, as well as neuropsychiatric assessment, patient would be better
served at a tertiary facility. Patient was accepted to [facility] for transfer, but hospital administration denied her transfer due to complexity (discussed with patient who is aware)
Total time spent to see the patient on the floor, examine the patient, review data and lab results, discuss treatment plan with patient, nursing staff around 37 minutes.
Anticipated Discharge: > 48 hours
Subjective/Interval History
-
Date of Service: January 09, 2024
Objective Data
-
Vital Signs:
Vital Signs
Temp Pulse Resp BP Pulse Ox
98.1 F 98 14 118/71 93
01/09/24 11:38 01/09/24 10:31 01/09/24 08:06 01/09/24 10:31 01/08/24 20:26
I&O
01/08/24 01/09/24 01/10/24
06:59 06:59 06:59
Intake Total 530 / 530 480 / 480 605 / 605
Output Total 2100 / 2100 1800 / 1800 900 / 900
Balance -1570 / -1570 -1320 / -1320 -295 / -295
Physical Exam
-
General: Well Developed and No Apparent Distress
HEENT: Normocephalic, Atraumatic and Moist Mucous Membranes
Respiratory: Clear to Auscultation
Cardiac: Regular Rhythm and S1/S2; Negative Murmur, Rub or Gallop
GI: Soft, Nontender, Nondistended and Normal Bowel Sounds; Negative Organomegaly
Rectal: Deferred by Provider
Musculoskeletal: No Clubbing, No Cyanosis and No Edema
Skin: Negative Rash
Neuro: Nonfocal/Grossly Intact
[2024-01-09] MEDS: ZYRTEC 10 MG TUBE ×2 (18:08→21:47)
[2024-01-09 18:12] LABS: Glucose - Point of Care 91 mg/dl (70-99)
[2024-01-09] MEDS: DUONEB 3 ML INH (20:23)
[2024-01-09] MEDS: FEOSOL 325 MG PO (21:42)
[2024-01-09] MEDS: TYLENOL 650 MG PO (21:51)
[2024-01-09 22:37] LABS: Glucose - Point of Care 130 mg/dl (70-99)
[2024-01-10] VITALS (7 sets, daily range): BP systolic 95–123; BP diastolic 59–87
[2024-01-10] MEDS: BENADRYL 50.5 MG IV ×4 (01:30→21:57)
[2024-01-10] MEDS: BENADRYL SOLUTION 25 MG TUBE ×6 (01:31→21:40)
[2024-01-10] MEDS: DUONEB 3 ML INH ×2 (01:37→19:45)
[2024-01-10] MEDS: ZOFRAN 4 MG IV ×3 (01:58→21:38)
--- NOTE | 2024-01-10 02:53 | PTCARENOTE ---
Pt has had 2 episodes so far this shift, see mar for medication administration. Pt's call sanchez within reach. Assessment care and vitals as charted.
[2024-01-10] MEDS: ATIVAN 1 MG SL ×4 (03:40→21:40)
[2024-01-10] MEDS: SINEMET 25-100 1.5 TABLET TUBE ×2 (05:36→08:57)
[2024-01-10] MEDS: LIORESAL 10 MG TUBE ×3 (05:37→21:41)
[2024-01-10] MEDS: PULMICORT 0.5 MG INH ×2 (07:45→19:45)
[2024-01-10] MEDS: GASTROCROM 300 MG PO ×4 (08:29→21:41)
[2024-01-10] MEDS: LANTUS 0.1 UNITS SC (08:29)
[2024-01-10 08:40] LABS: Glucose - Point of Care 85 mg/dl (70-99)
[2024-01-10] MEDS: LIDOCAINE 4% PATCH 1 PATCH TOPICAL (08:54)
[2024-01-10] MEDS: NOVOLOG FLEXPEN-LOW RESISTANCE SC ×3 (08:55→17:43)
[2024-01-10] MEDS: NOVOLOG FLEXPEN SC (08:55)
[2024-01-10] MEDS: PEPCID 40 MG IV ×2 (08:56→21:39)
[2024-01-10] MEDS: NSS (PRESERVATIVE FREE) 6 ML IV ×2 (08:56→21:38)
[2024-01-10] MEDS: HYDREA 500 MG PO ×2 (08:57→21:36)
[2024-01-10] MEDS: COLACE PO (08:58)
[2024-01-10] MEDS: SUBUTEX 2 MG SL ×4 (08:58→21:43)
[2024-01-10] MEDS: VITAMIN B1 100 MG TUBE (08:58)
[2024-01-10] MEDS: DELTASONE 10 MG TUBE ×2 (08:58→21:34)
[2024-01-10] MEDS: CLARITIN 10 MG TUBE (08:58)
[2024-01-10] MEDS: INDERAL 10 MG TUBE ×3 (08:58→21:41)
[2024-01-10] MEDS: ELIQUIS 5 MG PO ×2 (08:59→21:36)
[2024-01-10] MEDS: TYLENOL 650 MG PO ×2 (08:59→21:43)
[2024-01-10] MEDS: MIRALAX TUBE (09:01)
[2024-01-10] MEDS: DESENEX/MITRAZOL/ZEASORB 1 APPLIC TOPICAL ×2 (09:04→21:35)
[2024-01-10] MEDS: NON-FORMULARY ITEM 80 MG PO (09:05)
[2024-01-10] MEDS: ZADITOR 1 DROP BOTH EYES ×2 (09:07→21:40)
[2024-01-10] MEDS: NON-FORMULARY ITEM 1 MG PO ×2 (09:08→21:37)
[2024-01-10] MEDS: NON-FORMULARY ITEM 1 UNIT PO ×2 (09:09→21:38)
[2024-01-10 11:29] LABS: Glucose - Point of Care 99 mg/dl (70-99)
[2024-01-10] MEDS: NOVOLOG FLEXPEN 3 UNITS SC ×2 (11:48→17:48)
--- NOTE | 2024-01-10 13:18 | W.PN.HOSP.TC ---
Today's Communication/Plan
-
cont attempts to place
Assessment / Plan
Assessment / Plan
Conditions prior to admission:
1. Mast cell activation syndrome.
2. Chronic dystonic reaction.
3. Orthostatic hypotension with postural orthostatic and tachycardia syndrome.
4. Dopa sensitive dystonia.
5. Steroid-induced diabetes.
6. Prior history of deep venous thrombosis and pulmonary embolism.
7. Chronic pain syndrome.
8. Migraine headaches.
9. Gastroesophageal reflux disease.
10. Benzodiazepine and opiate dependence.
11. Restless legs syndrome.
12. Insomnia.
13. History of vocal cord dysfunction.
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
15. Gastroparesis.
16. 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
17. 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
33yo F with PMHx of GERD, dystonia, allergic asthma, migraine, chronic hypoxia on 2L O2, steroid induced DM, Esophageal dysmotility on PEG, JUANJOSE, chronic pain syndrome with opioid dependency, mast cell syndrome on benadryl drip and steroids came to
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 Had PICC line replaced and completed cipro as per ID. Due to concern for PEG tube malfunction had
it replaced wice on 09/22 and 11/04. Continued on benadryl drip 2/2 hx of recurrent anaphylaxis 2/2 mast cell activation syndrome and weaned off it. Had multiple multidisciplianry meetings in attempts to minimize IV medication. PO Benadryl is continued
with recommendation to increase to max 300mg/day as needed.
Had fall on 10/03 and found Fx of 6th and 7th ribs without complications.
Attempt to transfer to [facility] (where patient was getting all her care) failed since receiving hospital administration was concerned for too high complexity of the patient
Ongoing disposition attempts per CM for home care
A/P:
#Bacteremia 2/2 CLABSI
Completed cipro on 10/06/23
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
follows with Dr. Lizabeth Villanueva at [facility] hematology.
Continue Ativan
cont Gleevac, steroids
Levalbuterol as needed
Continue carbidopa levodopa
prednisone continued
Outpatient IV Benadryl drip at 15 mg/hr upon presentation. As discussed with primary commercial lines manager Dr. Mora plan is to slowly taper.
Multiple conversations with patient almost on a daily basis in regards to goals of care including attempt to wean off Benadryl drip with possibly substitution to oral regimen to facilitate discharge as well as outpatient management. Patient has been
resistant to wean off Benadryl drip completely at this point as per Dr. iKrk
11/26. Multidisciplinary meeting including psychiatry, clinical pharmacy, medicine, nursing.
Patient clinical course along with medication regimen has been reviewed.
With the goal of minimize exposure to IV medications and optimize regimen following changes implemented:
-Daily IV fluids discontinued with plan to monitor oral intake and orthostatics.
-IV Benadryl pushes have been discontinued.
-Lorazepam sublingual as needed order has been discontinued.
-IV lorazepam has been discontinued
Initiated:
Benadryl 25 mg infusion through piggyback will be provided over 10 minutes for breakthrough dystonic attack.
Benadryl p.o. 25 mg will be scheduled every 4 hours.
Lorazepam sublingual 1 mg with the scheduled while awake every 4 hours.
Hydromorphone p.o. 8 mg Q6H PRN will be continued for severe pain along with Suboxone.
12/02.
Multidisciplinary discussion involving nursing, primary service, psychiatry, pharmacy, case management
Plan is to continue current care including intravenous Benadryl drip wean. Schedule below:
Diphenhydramine continuous infusion taper schedule Q72hr
8 @1300 � 8/5 @1259 � 2MG/HR
12/21 @1300 � 12/24 @1259 � 1MG/HR
12/25 @1300 � 12/27 @0.5 mg/hr, and plan to further decrease to 0.25 mg/hr starting 12/28
Can consider increasing diphenhydramine PO up to max 300mg/day IF NEEDED. Would recommend increasing if episodes increase.
Current dose is 25 mg Q4H via tube, would increase to 37.5mg Q4H IF NEEDED, completely off the drip 12/29
#Dystonia
Cont baclofen and synemet
#Thrush
Completed clotrimasole troches
#GERD
#Chronic pain syndrome withn opioid dependency
#Sinus tachycardia, chronic
#Esophageal dysmotility
#Gastroparesis on PEG
#RLS
#Hx of DVT
#Allergy induced asthma with chronic hypoxic respiratory failure on 2L home O2
#Migraine d/o
Cont home meds
#Fall with uncomplicated 6,7 rib Fx
on 09/22
#DM steroid induced
Accuchecks
Insulin
DM diet
DVT ppx on ELqiuis
Full code
I have spent at least 57min reviewing the chart and providing direct patient care
Disposition: Discussion with primary commercial lines manager Dr. Ethan Villanueva on 10/09. Discussed possibility of attempting weaning Benadryl drip likely could be done as outpatient. With current family social situation, unfortunately there is no options
for disposition other than home on IV infusion. Possibility of a transfer to [facility] discussed as well, although according to Dr. Villanueva hospital administration declined services due to complexity. Also discussed possibility of
transfer to tertiary center ([facility] declined in the past).
10/[address] Villanueva over the phone as well as [facility] transfer center.
Complex patient. Attempt to wean off Benadryl drip over the last 2 weeks with persistent dystonic episodes.
While patient is relatively stable with her current condition, given complex clinical picture requiring multi disciplinary approach not limited to medicine, hematology, allergology, as well as neuropsychiatric assessment, patient would be better
served at a tertiary facility. Patient was accepted to [facility] for transfer, but hospital administration denied her transfer due to complexity (discussed with patient who is aware)
Anticipated Discharge: > 48 hours
Subjective/Interval History
-
Date of Service: January 10, 2024
Objective Data
-
Vital Signs:
Vital Signs
Temp Pulse Resp BP Pulse Ox
98.1 F 80 14 100/66 97
01/10/24 11:00 01/10/24 07:48 01/10/24 07:48 01/10/24 04:00 01/10/24 07:48
I&O
01/09/24 01/10/24 01/11/24
06:59 06:59 06:59
Intake Total 480 / 480 1155 / 1155
Output Total 1800 / 1800 2650 / 2650
Balance -1320 / -1320 -1495 / -1495
Review of Systems
-
History Source: Patient
All other systems: Reviewed and negative
Physical Exam
-
General: No Apparent Distress
HEENT: Normocephalic, Atraumatic and Moist Mucous Membranes
GI: Soft, Nontender and Nondistended
Musculoskeletal: No Clubbing, No Cyanosis and No Edema
Neuro: Other (dystonic spells present)
Psych: Calm
[2024-01-10] MEDS: SINEMET 25-100 2 TABLET TUBE ×2 (15:05→17:01)
[2024-01-10] MEDS: NON-FORMULARY ITEM 100 MG PO (15:06)
--- NOTE | 2024-01-10 15:43 | CHAP ---
Mary is grateful for progress that has been made, and looks forward to moving into her apartment, and breathing 'outside air.' Emotional and spiritual care provided, with assurance that our support continues.
[2024-01-10] MEDS: ZYRTEC 10 MG TUBE ×2 (16:55→21:41)
[2024-01-10 17:39] LABS: Glucose - Point of Care 90 mg/dl (70-99)
[2024-01-10] MEDS: COLACE 100 MG PO (21:34)
[2024-01-10] MEDS: FEOSOL 325 MG PO (21:40)
[2024-01-10 21:55] LABS: Glucose - Point of Care 94 mg/dl (70-99)
[2024-01-11] VITALS (8 sets, daily range): BP systolic 92–131; BP diastolic 65–102
[2024-01-11] MEDS: BENADRYL SOLUTION 25 MG TUBE ×6 (03:02→21:48)
[2024-01-11] MEDS: ATIVAN 1 MG SL ×4 (03:03→21:48)
--- NOTE | 2024-01-11 04:44 | PTCARENOTE ---
Pt having one episode over night. Emotional support given call sanchez within reach. Assessment care and vitals as charted.
[2024-01-11] MEDS: LIORESAL 10 MG TUBE ×3 (05:29→21:49)
[2024-01-11] MEDS: SINEMET 25-100 1.5 TABLET TUBE ×2 (05:29→10:16)
[2024-01-11] MEDS: BENADRYL 50.5 MG IV ×4 (06:15→22:07)
[2024-01-11] MEDS: ZOFRAN 4 MG IV ×3 (06:15→18:05)
[2024-01-11] MEDS: PULMICORT 0.5 MG INH ×2 (07:37→18:14)
[2024-01-11 07:40] LABS: Glucose - Point of Care 90 mg/dl (70-99)
[2024-01-11] MEDS: NOVOLOG FLEXPEN-LOW RESISTANCE SC ×3 (08:14→16:49)
--- NOTE | 2024-01-11 09:03 | W.PN.HOSP.TC ---
Today's Communication/Plan
-
cont monitoring for anaphylaxis
Pending placement
Assessment / Plan
Assessment / Plan
Conditions prior to admission:
1. Mast cell activation syndrome.
2. Chronic dystonic reaction.
3. Orthostatic hypotension with postural orthostatic and tachycardia syndrome.
4. Dopa sensitive dystonia.
5. Steroid-induced diabetes.
6. Prior history of deep venous thrombosis and pulmonary embolism.
7. Chronic pain syndrome.
8. Migraine headaches.
9. Gastroesophageal reflux disease.
10. Benzodiazepine and opiate dependence.
11. Restless legs syndrome.
12. Insomnia.
13. History of vocal cord dysfunction.
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
15. Gastroparesis.
16. 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
17. 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
33yo F with PMHx of GERD, dystonia, allergic asthma, migraine, chronic hypoxia on 2L O2, steroid induced DM, Esophageal dysmotility on PEG, JUANJOSE, chronic pain syndrome with opioid dependency, mast cell syndrome on benadryl drip and steroids came to
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 Had PICC line replaced and completed cipro as per ID. Due to concern for PEG tube malfunction had
it replaced wice on 09/22 and 11/04. Continued on benadryl drip 2/2 hx of recurrent anaphylaxis 2/2 mast cell activation syndrome and weaned off it. Had multiple multidisciplianry meetings in attempts to minimize IV medication. PO Benadryl is continued
with recommendation to increase to max 300mg/day as needed.
Had fall on 10/03 and found Fx of 6th and 7th ribs without complications.
Attempt to transfer to [facility] (where patient was getting all her care) failed since receiving hospital administration was concerned for too high complexity of the patient
Ongoing disposition attempts per CM for home care.
A/P:
#Bacteremia 2/2 CLABSI
Completed cipro on 10/06/23
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
follows with Dr. Lizabeth Villanueva at [facility] hematology.
Continue Ativan
cont Gleevac, steroids
Levalbuterol as needed
Continue carbidopa levodopa
prednisone continued
Outpatient IV Benadryl drip at 15 mg/hr upon presentation. As discussed with primary water attendant Dr. Mora plan is to slowly taper.
Multiple conversations with patient almost on a daily basis in regards to goals of care including attempt to wean off Benadryl drip with possibly substitution to oral regimen to facilitate discharge as well as outpatient management. Patient has been
resistant to wean off Benadryl drip completely at this point as per Dr. Kirk
11/26. Multidisciplinary meeting including psychiatry, clinical pharmacy, medicine, nursing.
Patient clinical course along with medication regimen has been reviewed.
With the goal of minimize exposure to IV medications and optimize regimen following changes implemented:
-Daily IV fluids discontinued with plan to monitor oral intake and orthostatics.
-IV Benadryl pushes have been discontinued.
-Lorazepam sublingual as needed order has been discontinued.
-IV lorazepam has been discontinued
Initiated:
Benadryl 25 mg infusion through piggyback will be provided over 10 minutes for breakthrough dystonic attack.
Benadryl p.o. 25 mg will be scheduled every 4 hours.
Lorazepam sublingual 1 mg with the scheduled while awake every 4 hours.
Hydromorphone p.o. 8 mg Q6H PRN will be continued for severe pain along with Suboxone.
12/02.
Multidisciplinary discussion involving nursing, primary service, psychiatry, pharmacy, case management
Plan is to continue current care including intravenous Benadryl drip wean. Schedule below:
Diphenhydramine continuous infusion taper schedule Q72hr
12/18 @1300 � 8/ @1259 � 2MG/HR
12/21 @12/24 @1259 � 1MG/HR
12/25 @12/27 @0.5 mg/hr, and plan to further decrease to 0.25 mg/hr starting 12/28
Can consider increasing diphenhydramine PO up to max 300mg/day IF NEEDED. Would recommend increasing if episodes increase.
Current dose is 25 mg Q4H via tube, would increase to 37.5mg Q4H IF NEEDED, completely off the drip 12/29
#Dystonia
Cont baclofen and synemet
#Thrush
Completed clotrimasole troches
#GERD
#Chronic pain syndrome withn opioid dependency
#Sinus tachycardia, chronic
#Esophageal dysmotility
#Gastroparesis on PEG
#RLS
#Hx of DVT
#Allergy induced asthma with chronic hypoxic respiratory failure on 2L home O2
#Migraine d/o
Cont home meds
#Fall with uncomplicated 6,7 rib Fx
on 09/22
#DM steroid induced
Accuchecks
Insulin
DM diet
#Iatrogenic immunosuppression
06/20 steroids
reverse isolation
DVT ppx on ELqiuis
Full code
I have spent at least 57min reviewing the chart and providing direct patient care
Disposition: Discussion with primary water attendant Dr. Ethan Villanueva on 10/09. Discussed possibility of attempting weaning Benadryl drip likely could be done as outpatient. With current family social situation, unfortunately there is no options
for disposition other than home on IV infusion. Possibility of a transfer to [facility] discussed as well, although according to Dr. Villanueva hospital administration declined services due to complexity. Also discussed possibility of
transfer to tertiary center ([facility] declined in the past).
10/[address] Villanueva over the phone as well as [facility] transfer center.
Complex patient. Attempt to wean off Benadryl drip over the last 2 weeks with persistent dystonic episodes.
While patient is relatively stable with her current condition, given complex clinical picture requiring multi disciplinary approach not limited to medicine, hematology, allergology, as well as neuropsychiatric assessment, patient would be better
served at a tertiary facility. Patient was accepted to [facility] for transfer, but hospital administration denied her transfer due to complexity (discussed with patient who is aware)
Anticipated Discharge: > 48 hours
Subjective/Interval History
-
Date of Service: January 11, 2024
Objective Data
-
Vital Signs:
Vital Signs
Temp Pulse Resp BP Pulse Ox
98.1 F 72 16 92/65 96
01/11/24 07:00 01/11/24 07:39 01/11/24 07:39 01/11/24 04:00 01/11/24 07:39
I&O
01/10/24 01/11/24 01/12/24
06:59 06:59 06:59
Intake Total 1155 / 1155 680 / 680
Output Total 2650 / 2650 1650 / 1650
Balance -1495 / -1495 -970 / -970
Review of Systems
-
History Source: Patient
All other systems: Reviewed and negative
Physical Exam
-
General: No Apparent Distress
HEENT: Normocephalic
Respiratory: Clear to Auscultation
Neuro: Awake, Alert, Oriented and AO x 3
Psych: Calm
[2024-01-11] MEDS: NOVOLOG FLEXPEN SC (10:11)
[2024-01-11] MEDS: LANTUS 0.1 UNITS SC ×2 (10:11→10:18)
[2024-01-11] MEDS: LIDOCAINE 4% PATCH 1 PATCH TOPICAL (10:12)
[2024-01-11] MEDS: GASTROCROM 300 MG PO ×4 (10:12→21:48)
[2024-01-11] MEDS: DELTASONE 10 MG TUBE ×2 (10:14→21:44)
[2024-01-11] MEDS: SUBUTEX 2 MG SL ×4 (10:14→21:50)
[2024-01-11] MEDS: HYDREA 500 MG PO ×2 (10:14→21:45)
[2024-01-11] MEDS: VITAMIN B1 100 MG TUBE (10:17)
[2024-01-11] MEDS: ELIQUIS 5 MG PO ×2 (10:17→21:45)
[2024-01-11] MEDS: INDERAL 10 MG TUBE ×3 (10:17→21:51)
[2024-01-11] MEDS: CLARITIN 10 MG TUBE (10:18)
[2024-01-11] MEDS: DESENEX/MITRAZOL/ZEASORB 1 APPLIC TOPICAL ×2 (10:18→21:44)
[2024-01-11] MEDS: MIRALAX TUBE (10:19)
[2024-01-11] MEDS: COLACE PO (10:19)
[2024-01-11] MEDS: PEPCID 40 MG IV ×2 (10:20→21:47)
[2024-01-11] MEDS: NSS (PRESERVATIVE FREE) 6 ML IV ×2 (10:21→21:46)
[2024-01-11] MEDS: ZADITOR 1 DROP BOTH EYES ×2 (10:22→22:35)
[2024-01-11] MEDS: NON-FORMULARY ITEM 1 UNIT PO ×2 (10:23→21:46)
[2024-01-11] MEDS: NON-FORMULARY ITEM 80 MG PO (10:25)
[2024-01-11] MEDS: NON-FORMULARY ITEM 1 MG PO ×2 (10:27→21:46)
[2024-01-11 11:08] LABS: Glucose - Point of Care 82 mg/dl (70-99)
[2024-01-11] MEDS: NOVOLOG FLEXPEN 3 UNITS SC ×2 (12:41→17:08)
[2024-01-11] MEDS: SINEMET 25-100 2 TABLET TUBE ×2 (14:44→17:06)
[2024-01-11] MEDS: NON-FORMULARY ITEM 200 MG PO (14:47)
[2024-01-11 16:43] LABS: Glucose - Point of Care 103 mg/dl (70-99)
[2024-01-11] MEDS: ZYRTEC 10 MG TUBE ×2 (17:06→21:49)
[2024-01-11] MEDS: DUONEB 3 ML INH (18:14)
[2024-01-11] MEDS: MYLICON 80 MG PO (21:43)
[2024-01-11] MEDS: COLACE 100 MG PO (21:44)
[2024-01-11] MEDS: FEOSOL 325 MG PO (21:48)
[2024-01-11] MEDS: TYLENOL 650 MG PO (21:50)
[2024-01-11 21:55] LABS: Glucose - Point of Care 128 mg/dl (70-99)
[2024-01-11] MEDS: ADRENALIN 0.3 MG IM (22:40)
[2024-01-12] VITALS: BP 110/75
[2024-01-12] MEDS: ZOFRAN 4 MG IV ×4 (00:05→22:08)
[2024-01-12] MEDS: BENADRYL SOLUTION 25 MG TUBE ×6 (01:52→21:53)
[2024-01-12] MEDS: BENADRYL 50.5 MG IV ×4 (02:07→22:08)
--- NOTE | 2024-01-12 03:45 | PTCARENOTE ---
Pt had multiple episodes. One episode requiring PRN Epinephrine after retching and spitting secretions out 'triggered' a harder dystonia episode. To soon for PRN Beba, RN in contact with guan[facility] about options. After one dose of Epi and emotional
support RN left room and observed from window, Pt episode started to subside. Per Pt she 'passed out'. Pt appearing to be sleeping vitals stable respiration even unlabored. call sanchez within reach. Assessment care and vitals as charted.
[2024-01-12 04:00] VITALS: BP 107/65
[2024-01-12] MEDS: ATIVAN 1 MG SL ×4 (04:01→21:45)
[2024-01-12] MEDS: LIORESAL 10 MG TUBE ×2 (05:47→14:25)
[2024-01-12] MEDS: SINEMET 25-100 1.5 TABLET TUBE ×2 (05:47→09:21)
[2024-01-12] MEDS: PULMICORT 0.5 MG INH ×2 (07:48→20:05)
[2024-01-12 08:00] VITALS: BP 116/85
[2024-01-12 08:49] LABS: Glucose - Point of Care 85 mg/dl (70-99)
[2024-01-12] MEDS: PEPCID 40 MG IV ×2 (09:14→21:41)
[2024-01-12] MEDS: HYDREA 500 MG PO ×2 (09:15→21:47)
[2024-01-12] MEDS: FLUSH (NSS) 4 FLUSH IV (09:15)
[2024-01-12] MEDS: SUBUTEX 2 MG SL ×4 (09:16→21:45)
[2024-01-12] MEDS: GASTROCROM 300 MG PO ×4 (09:18→21:40)
[2024-01-12] MEDS: NSS (PRESERVATIVE FREE) 6 ML IV ×2 (09:19→21:42)
[2024-01-12] MEDS: INDERAL 10 MG TUBE ×3 (09:20→21:46)
[2024-01-12] MEDS: ELIQUIS 5 MG PO ×2 (09:20→21:47)
[2024-01-12] MEDS: VITAMIN B1 100 MG TUBE (09:20)
[2024-01-12] MEDS: DELTASONE 10 MG TUBE ×2 (09:21→21:44)
[2024-01-12] MEDS: LIDOCAINE 4% PATCH 1 PATCH TOPICAL (09:21)
[2024-01-12] MEDS: NON-FORMULARY ITEM 80 MG PO (09:22)
[2024-01-12] MEDS: NON-FORMULARY ITEM 1 MG PO ×2 (09:23→21:48)
[2024-01-12] MEDS: MIRALAX TUBE (09:24)
[2024-01-12] MEDS: NON-FORMULARY ITEM 1 UNIT PO ×2 (09:24→21:49)
[2024-01-12] MEDS: DESENEX/MITRAZOL/ZEASORB 1 APPLIC TOPICAL ×2 (09:24→21:47)
[2024-01-12] MEDS: COLACE PO (09:25)
[2024-01-12] MEDS: CLARITIN 10 MG TUBE (09:25)
[2024-01-12] MEDS: NOVOLOG FLEXPEN-LOW RESISTANCE SC ×3 (09:25→18:04)
--- NOTE | 2024-01-12 10:15 | CM ---
Addendum entered by Luci Garcia RN 01/12/24 12:38:
Request from Roslyn to send referral to [facility] ([place] [phone], fax [phone]); faxed.
Original Note:
Patient with Hx Mast Cell Activation Syndrome, dystonia/movement disorder, chronic pain syndrome, gastroparesis with Dx Gram-negative bacteremia due to chronic infected PICC line.
Spoke with Saravanan, pharmacist, [facility] ([place] [phone], fax [phone] or [phone]); he has the scripts that were faxed on Friday. He needs 24 hr notice to get a delivery of her IV meds & supplies.
Spoke with Roslyn Ferreira, Credit Risk Management Director [facility] ([place] [phone]); [facility] has 2 skilled RNs that met with patient, for skilled shift care. They are looking for more field staff manager. They do not have any non-skilled caregivers
available. Roslyn will be off work 01/12 & 01/13 and will be off work all next week- her repulping supervisor Amara will be covering for her.
Spoke with patient; she liked the 2 RNs she met from [facility] and feels this agency may be better that her prior agency as she was informed their staff has longevity. The patient inquired if an arrangement could possibly be made for the RNs to
also provide the non-skilled care, so she can go home soon- agreed to ask Leni about this.
Phone call to Leni Avalos Service Coordination [employer] ([place] [phone]); left message inquiring if an arrangement could possibly be made for the RNs to also provide the non-skilled care, patient's request, so patient can go home
soon.
Plan follow up with Leni re; skilled & non-skilled caregiver arrangements.
Plan follow up with [facility] once d/c date known.
[2024-01-12 12:00] VITALS: BP 120/82
[2024-01-12 12:05] LABS: Glucose - Point of Care 107 mg/dl (70-99)
[2024-01-12] MEDS: ZADITOR 1 DROP BOTH EYES ×2 (12:16→21:50)
[2024-01-12] MEDS: GASTROCROM PO (12:31)
[2024-01-12] MEDS: NOVOLOG FLEXPEN SC (12:32)
[2024-01-12] MEDS: NOVOLOG FLEXPEN 3 UNITS SC ×2 (12:33→18:05)
[2024-01-12] MEDS: SINEMET 25-100 2 TABLET TUBE ×2 (14:25→18:06)
[2024-01-12] MEDS: DUONEB 3 ML INH ×2 (14:39→20:05)
--- NOTE | 2024-01-12 15:05 | W.PN.HOSP.TC ---
Today's Communication/Plan
-
Discharge planning
Assessment / Plan
Assessment / Plan
Conditions prior to admission:
1. Mast cell activation syndrome.
2. Chronic dystonic reaction.
3. Orthostatic hypotension with postural orthostatic and tachycardia syndrome.
4. Dopa sensitive dystonia.
5. Steroid-induced diabetes.
6. Prior history of deep venous thrombosis and pulmonary embolism.
7. Chronic pain syndrome.
8. Migraine headaches.
9. Gastroesophageal reflux disease.
10. Benzodiazepine and opiate dependence.
11. Restless legs syndrome.
12. Insomnia.
13. History of vocal cord dysfunction.
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
15. Gastroparesis.
16. 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
17. 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
33yo F with PMHx of GERD, dystonia, allergic asthma, migraine, chronic hypoxia on 2L O2, steroid induced DM, Esophageal dysmotility on PEG, JUANJOSE, chronic pain syndrome with opioid dependency, mast cell syndrome on benadryl drip and steroids came to
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 Had PICC line replaced and completed cipro as per ID. Due to concern for PEG tube malfunction had
it replaced wice on 09/22 and 11/04. Continued on benadryl drip 2/2 hx of recurrent anaphylaxis 2/2 mast cell activation syndrome and weaned off it. Had multiple multidisciplianry meetings in attempts to minimize IV medication. PO Benadryl is continued
with recommendation to increase to max 300mg/day as needed.
Had fall on 10/03 and found Fx of 6th and 7th ribs without complications.
Attempt to transfer to [facility] (where patient was getting all her care) failed since receiving hospital administration was concerned for too high complexity of the patient
Ongoing disposition attempts per CM for home care.
A/P:
#Bacteremia 2/2 CLABSI
Completed cipro on 10/06/23
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
follows with Dr. Lizabeth Villanueva at [facility] hematology.
Continue Ativan
cont Gleevac, steroids
Levalbuterol as needed
Continue carbidopa levodopa
prednisone continued
Outpatient IV Benadryl drip at 15 mg/hr upon presentation. As discussed with primary road passenger firer Dr. Mora plan is to slowly taper.
Multiple conversations with patient almost on a daily basis in regards to goals of care including attempt to wean off Benadryl drip with possibly substitution to oral regimen to facilitate discharge as well as outpatient management. Patient has been
resistant to wean off Benadryl drip completely at this point as per Dr. Kirk
11/26. Multidisciplinary meeting including psychiatry, clinical pharmacy, medicine, nursing.
Patient clinical course along with medication regimen has been reviewed.
With the goal of minimize exposure to IV medications and optimize regimen following changes implemented:
-Daily IV fluids discontinued with plan to monitor oral intake and orthostatics.
-IV Benadryl pushes have been discontinued.
-Lorazepam sublingual as needed order has been discontinued.
-IV lorazepam has been discontinued
Initiated:
Benadryl 25 mg infusion through piggyback will be provided over 10 minutes for breakthrough dystonic attack.
Benadryl p.o. 25 mg will be scheduled every 4 hours.
Lorazepam sublingual 1 mg with the scheduled while awake every 4 hours.
Hydromorphone p.o. 8 mg Q6H PRN will be continued for severe pain along with Suboxone.
12/02.
Multidisciplinary discussion involving nursing, primary service, psychiatry, pharmacy, case management
Plan is to continue current care including intravenous Benadryl drip wean. Schedule below:
Diphenhydramine continuous infusion taper schedule Q72hr
12/18 @1300 � 8/ @1259 � 2MG/HR
12/21 @1300 � 12/24 @1259 � 1MG/HR
12/25 @12/27 @0.5 mg/hr, and plan to further decrease to 0.25 mg/hr starting 12/28
Can consider increasing diphenhydramine PO up to max 300mg/day IF NEEDED. Would recommend increasing if episodes increase.
Current dose is 25 mg Q4H via tube, would increase to 37.5mg Q4H IF NEEDED, completely off the drip 12/29
#Dystonia
Cont baclofen and synemet
#Thrush
Completed clotrimasole troches
#GERD
#Chronic pain syndrome withn opioid dependency
#Sinus tachycardia, chronic
#Esophageal dysmotility
#Gastroparesis on PEG
#RLS
#Hx of DVT
#Allergy induced asthma with chronic hypoxic respiratory failure on 2L home O2
#Migraine d/o
Cont home meds
#Fall with uncomplicated 6,7 rib Fx
on 09/22
#DM steroid induced
Accuchecks
Insulin
DM diet
#Iatrogenic immunosuppression
2/2 steroids
reverse isolation
DVT ppx on ELqiuis
Full code
I have spent at least 57min reviewing the chart and providing direct patient care
Disposition: Discussion with primary road passenger firer Dr. Ethan Villanueva on 10/09. Discussed possibility of attempting weaning Benadryl drip likely could be done as outpatient. With current family social situation, unfortunately there is no options
for disposition other than home on IV infusion. Possibility of a transfer to [facility] discussed as well, although according to Dr. Villanueva hospital administration declined services due to complexity. Also discussed possibility of
transfer to tertiary center ([facility] declined in the past).
10/[address] Villanueva over the phone as well as [facility] transfer center.
Complex patient. Attempt to wean off Benadryl drip over the last 2 weeks with persistent dystonic episodes.
While patient is relatively stable with her current condition, given complex clinical picture requiring multi disciplinary approach not limited to medicine, hematology, allergology, as well as neuropsychiatric assessment, patient would be better
served at a tertiary facility. Patient was accepted to [facility] for transfer, but hospital administration denied her transfer due to complexity (discussed with patient who is aware)
Anticipated Discharge: 24 - 48 hours
Subjective/Interval History
-
Date of Service: January 12, 2024
Objective Data
-
Vital Signs:
Vital Signs
Temp Pulse Resp BP Pulse Ox
98.2 F 146 18 120/82 98
01/12/24 11:55 01/12/24 14:42 01/12/24 14:42 01/12/24 12:00 01/12/24 14:42
I&O
01/11/24 01/12/24 01/13/24
06:59 06:59 06:59
Intake Total 680 / 680 1060 / 1060 640 / 640
Output Total 1650 / 1650 2525 / 2525 1300 / 1300
Balance -970 / -970 -1465 / -1465 -660 / -660
Physical Exam
-
General: No Apparent Distress
HEENT: Normocephalic
Respiratory: Clear to Auscultation
Neuro: Awake, Alert, Oriented and AO x 3
Psych: Calm
[2024-01-12] MEDS: FLUSH (NSS) 2 FLUSH IV (15:14)
[2024-01-12 16:00] VITALS: BP 102/73
[2024-01-12] MEDS: NON-FORMULARY ITEM 200 MG PO (16:10)
[2024-01-12 16:35] LABS: Glucose - Point of Care 139 mg/dl (70-99)
[2024-01-12] MEDS: ZYRTEC 10 MG TUBE ×2 (18:06→21:45)
[2024-01-12 21:25] LABS: Glucose - Point of Care 122 mg/dl (70-99)
[2024-01-12 21:37] VITALS: BP 115/78
[2024-01-12] MEDS: COLACE 100 MG PO (21:46)
[2024-01-12] MEDS: FEOSOL 325 MG PO (21:46)
--- NOTE | 2024-01-12 22:10 | PTCARENOTE ---
Pt with dystonic episode. Pt dry heaving, with complaints of shakiness. Pt placed on 2L 02. Pt given ordered 4mg IV zofran for nausea. As well as given ordered 25mg IV Benadryl in n/s for dystonic episode. V/S WNL. RN at bedside. This RN is
continuing with plan of care.
[2024-01-13] VITALS (7 sets, daily range): BP systolic 105–148; BP diastolic 70–111
[2024-01-13] MEDS: LIORESAL 10 MG TUBE ×4 (00:21→21:30)
[2024-01-13] MEDS: ATIVAN 1 MG SL ×4 (03:00→21:32)
[2024-01-13] MEDS: BENADRYL SOLUTION 25 MG TUBE ×6 (03:00→21:35)
[2024-01-13] MEDS: SINEMET 25-100 1.5 TABLET TUBE ×2 (05:29→09:44)
[2024-01-13] MEDS: ZOFRAN 4 MG IV ×3 (05:36→20:24)
[2024-01-13] MEDS: BENADRYL 50.5 MG IV ×3 (05:37→16:15)
--- NOTE | 2024-01-13 06:00 | PTCARENOTE ---
Pt with second dystonic episode overnight. Pt on 2L 02. Pt given ordered 4mg IV zofran for nausea. As well as given ordered 25mg IV Benadryl in n/s for dystonic episode. V/S WNL. RN at bedside. Pt given emotional support as well as reassurance, with
calms encouraging words.
[2024-01-13] MEDS: PULMICORT 0.5 MG INH ×2 (08:39→20:01)
[2024-01-13] MEDS: DUONEB 3 ML INH ×2 (08:39→20:02)
[2024-01-13] MEDS: NOVOLOG FLEXPEN SC ×2 (08:43→15:47)
[2024-01-13] MEDS: NOVOLOG FLEXPEN-LOW RESISTANCE SC ×3 (08:43→16:55)
[2024-01-13] MEDS: MIRALAX 17 GRAMS TUBE (08:44)
[2024-01-13] MEDS: LANTUS 0.1 UNITS SC (08:44)
[2024-01-13] MEDS: GASTROCROM 300 MG PO ×4 (08:44→21:35)
[2024-01-13] MEDS: LIDOCAINE 4% PATCH 1 PATCH TOPICAL (08:44)
[2024-01-13] MEDS: DELTASONE 10 MG TUBE ×2 (08:45→20:06)
[2024-01-13] MEDS: INDERAL 10 MG TUBE ×3 (08:45→21:32)
[2024-01-13] MEDS: SUBUTEX 2 MG SL ×4 (08:45→21:32)
[2024-01-13] MEDS: CLARITIN 10 MG TUBE (08:46)
[2024-01-13] MEDS: HYDREA 500 MG PO ×2 (08:46→20:05)
[2024-01-13] MEDS: NSS (PRESERVATIVE FREE) 6 ML IV ×2 (08:46→20:13)
[2024-01-13] MEDS: VITAMIN B1 100 MG TUBE (08:46)
[2024-01-13] MEDS: ELIQUIS 5 MG PO ×2 (08:46→20:06)
[2024-01-13] MEDS: NON-FORMULARY ITEM 1 MG PO ×2 (08:47→20:07)
[2024-01-13] MEDS: PEPCID 40 MG IV ×2 (08:47→20:12)
[2024-01-13] MEDS: NON-FORMULARY ITEM 1 UNIT PO ×2 (08:48→20:08)
[2024-01-13] MEDS: ZADITOR 1 DROP BOTH EYES ×2 (08:49→20:10)
[2024-01-13] MEDS: COLACE 100 MG PO ×2 (08:50→20:06)
[2024-01-13] MEDS: NON-FORMULARY ITEM 80 MG PO (08:51)
[2024-01-13] MEDS: DESENEX/MITRAZOL/ZEASORB 1 APPLIC TOPICAL ×2 (08:51→20:09)
[2024-01-13 08:53] LABS: Glucose - Point of Care 85 mg/dl (70-99)
--- NOTE | 2024-01-13 11:45 | WOUNDNOTE ---
JESUS RN NOTE: Followed up today via nurse Land regarding status of L great toe. Nurse reports in grown toe nail healed, will discontinue wound care and sign off.
--- NOTE | 2024-01-13 13:04 | CM ---
CM received call from [facility] [phone]
She requested clarification on hours and schedule
Referral pending
Deferred her to Leni wilcox dehydrogenation supervisor/Amara Sadler [phone]
Discharge Disposition- home with services
--- NOTE | 2024-01-13 14:06 | W.PN.HOSP.TC ---
Today's Communication/Plan
-
Has been off IV Benadryl drip.
Discharge planning
Assessment / Plan
Assessment / Plan
Conditions prior to admission:
1. Mast cell activation syndrome.
2. Chronic dystonic reaction.
3. Orthostatic hypotension with postural orthostatic and tachycardia syndrome.
4. Dopa sensitive dystonia.
5. Steroid-induced diabetes.
6. Prior history of deep venous thrombosis and pulmonary embolism.
7. Chronic pain syndrome.
8. Migraine headaches.
9. Gastroesophageal reflux disease.
10. Benzodiazepine and opiate dependence.
11. Restless legs syndrome.
12. Insomnia.
13. History of vocal cord dysfunction.
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
15. Gastroparesis.
16. 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
17. 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
33yo F with PMHx of GERD, dystonia, allergic asthma, migraine, chronic hypoxia on 2L O2, steroid induced DM, Esophageal dysmotility on PEG, JUANJOSE, chronic pain syndrome with opioid dependency, mast cell syndrome on benadryl drip and steroids came to
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 Had PICC line replaced and completed cipro as per ID. Due to concern for PEG tube malfunction had
it replaced wice on 09/22 and 11/04. Continued on benadryl drip 2/2 hx of recurrent anaphylaxis 2/2 mast cell activation syndrome and weaned off it. Had multiple multidisciplianry meetings in attempts to minimize IV medication. PO Benadryl is continued
with recommendation to increase to max 300mg/day as needed.
Had fall on 10/03 and found Fx of 6th and 7th ribs without complications.
Attempt to transfer to [facility] (where patient was getting all her care) failed since receiving hospital administration was concerned for too high complexity of the patient
Ongoing disposition attempts per CM for home care.
A/P:
#Bacteremia 2/2 CLABSI
Completed cipro on 10/06/23
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
follows with Dr. Lizabeth Villanueva at [facility] hematology.
Continue Ativan
cont Gleevac, steroids
Levalbuterol as needed
Continue carbidopa levodopa
prednisone continued
Outpatient IV Benadryl drip at 15 mg/hr upon presentation. As discussed with primary hoister Dr. Mora plan is to slowly taper.
Multiple conversations with patient almost on a daily basis in regards to goals of care including attempt to wean off Benadryl drip with possibly substitution to oral regimen to facilitate discharge as well as outpatient management. Patient has been
resistant to wean off Benadryl drip completely at this point as per Dr. Kirk
11/26. Multidisciplinary meeting including psychiatry, clinical pharmacy, medicine, nursing.
Patient clinical course along with medication regimen has been reviewed.
With the goal of minimize exposure to IV medications and optimize regimen following changes implemented:
-Daily IV fluids discontinued with plan to monitor oral intake and orthostatics.
-IV Benadryl pushes have been discontinued.
-Lorazepam sublingual as needed order has been discontinued.
-IV lorazepam has been discontinued
Initiated:
Benadryl 25 mg infusion through piggyback will be provided over 10 minutes for breakthrough dystonic attack.
Benadryl p.o. 25 mg will be scheduled every 4 hours.
Lorazepam sublingual 1 mg with the scheduled while awake every 4 hours.
Hydromorphone p.o. 8 mg Q6H PRN will be continued for severe pain along with Suboxone.
12/02.
Multidisciplinary discussion involving nursing, primary service, psychiatry, pharmacy, case management
Plan is to continue current care including intravenous Benadryl drip wean. Schedule below:
Diphenhydramine continuous infusion taper schedule Q72hr
12/18 @12/21 @1259 � 2MG/HR
12/21 @12/24 @1259 � 1MG/HR
12/25 @12/27 @0.5 mg/hr, and plan to further decrease to 0.25 mg/hr starting 12/28
Can consider increasing diphenhydramine PO up to max 300mg/day IF NEEDED. Would recommend increasing if episodes increase.
Current dose is 25 mg Q4H via tube, would increase to 37.5mg Q4H IF NEEDED, completely off the drip 12/29
#Dystonia
Cont baclofen and synemet
#Thrush
Completed clotrimasole troches
#GERD
#Chronic pain syndrome withn opioid dependency
#Sinus tachycardia, chronic
#Esophageal dysmotility
#Gastroparesis on PEG
#RLS
#Hx of DVT
#Allergy induced asthma with chronic hypoxic respiratory failure on 2L home O2
#Migraine d/o
Cont home meds
#Fall with uncomplicated 6,7 rib Fx
on 09/22
#DM steroid induced
Accuchecks
Insulin
DM diet
#Iatrogenic immunosuppression
2/2 steroids
reverse isolation
DVT ppx on ELqiuis
Full code
I have spent at least 57min reviewing the chart and providing direct patient care
Disposition: Discussion with primary hoister Dr. Ethan Villanueva on 10/09. Discussed possibility of attempting weaning Benadryl drip likely could be done as outpatient. With current family social situation, unfortunately there is no options
for disposition other than home on IV infusion. Possibility of a transfer to [facility] discussed as well, although according to Dr. Villanueva hospital administration declined services due to complexity. Also discussed possibility of
transfer to tertiary center ([facility] declined in the past).
10/[address] Villanueva over the phone as well as [facility] transfer center.
Complex patient. Attempt to wean off Benadryl drip over the last 2 weeks with persistent dystonic episodes.
While patient is relatively stable with her current condition, given complex clinical picture requiring multi disciplinary approach not limited to medicine, hematology, allergology, as well as neuropsychiatric assessment, patient would be better
served at a tertiary facility. Patient was accepted to [facility] for transfer, but hospital administration denied her transfer due to complexity (discussed with patient who is aware)
Anticipated Discharge: 24 - 48 hours
Subjective/Interval History
-
Date of Service: January 13, 2024
Objective Data
-
Vital Signs:
Vital Signs
Temp Pulse Resp BP Pulse Ox
98.5 F 101 14 148/106 99
01/13/24 07:55 01/13/24 08:42 01/13/24 08:42 01/13/24 05:41 01/13/24 10:41
I&O
01/12/24 01/13/24 01/14/24
06:59 06:59 06:59
Intake Total 1060 / 1060 640 / 640
Output Total 2525 / 2525 2200 / 2200
Balance -1465 / -1465 -1560 / -1560
Physical Exam
-
General: No Apparent Distress
HEENT: Normocephalic
Respiratory: Clear to Auscultation
Neuro: Awake, Alert, Oriented and AO x 3
Psych: Calm
[2024-01-13] MEDS: SINEMET 25-100 2 TABLET TUBE ×2 (15:50→18:23)
[2024-01-13] MEDS: NON-FORMULARY ITEM 200 MG PO (15:53)
[2024-01-13 16:28] LABS: Glucose - Point of Care 99 mg/dl (70-99)
[2024-01-13] MEDS: NOVOLOG FLEXPEN 3 UNITS SC (16:55)
[2024-01-13] MEDS: ZYRTEC 10 MG TUBE ×2 (18:24→21:31)
[2024-01-13] MEDS: FEOSOL 325 MG PO (21:32)
[2024-01-13 22:43] LABS: Glucose - Point of Care 112 mg/dl (70-99)
[2024-01-14] VITALS (8 sets, daily range): BP systolic 93–134; BP diastolic 59–94; PULSE 100–135; O2SAT 98
[2024-01-14] MEDS: BENADRYL 50.5 MG IV ×4 (00:38→20:57)
[2024-01-14] MEDS: TYLENOL 650 MG PO (02:31)
[2024-01-14] MEDS: BENADRYL SOLUTION 25 MG TUBE ×6 (02:32→21:00)
[2024-01-14] MEDS: ATIVAN 1 MG SL ×4 (03:08→21:00)
[2024-01-14] MEDS: SINEMET 25-100 1.5 TABLET TUBE ×2 (06:04→09:11)
[2024-01-14] MEDS: LIORESAL 10 MG TUBE ×3 (06:04→21:50)
[2024-01-14] MEDS: DUONEB 3 ML INH ×2 (07:57→19:23)
[2024-01-14] MEDS: PULMICORT 0.5 MG INH ×2 (07:57→19:23)
[2024-01-14] MEDS: SUBUTEX 2 MG SL ×4 (08:16→21:49)
[2024-01-14] MEDS: LIDOCAINE 4% PATCH 1 PATCH TOPICAL (08:16)
[2024-01-14] MEDS: INDERAL 10 MG TUBE ×3 (08:17→21:50)
[2024-01-14] MEDS: ELIQUIS 5 MG PO ×2 (08:17→19:49)
[2024-01-14] MEDS: MIRALAX 17 GRAMS TUBE (08:17)
[2024-01-14] MEDS: VITAMIN B1 100 MG TUBE (08:17)
[2024-01-14] MEDS: HYDREA 500 MG PO ×2 (08:17→19:49)
[2024-01-14] MEDS: CLARITIN 10 MG TUBE (08:17)
[2024-01-14] MEDS: NOVOLOG FLEXPEN-LOW RESISTANCE SC ×3 (08:18→18:38)
[2024-01-14] MEDS: DELTASONE 10 MG TUBE ×2 (08:18→19:49)
[2024-01-14] MEDS: LANTUS 0.1 UNITS SC (08:18)
[2024-01-14] MEDS: GASTROCROM 300 MG PO ×4 (08:18→21:51)
[2024-01-14] MEDS: COLACE 100 MG PO ×2 (08:18→19:49)
[2024-01-14] MEDS: DESENEX/MITRAZOL/ZEASORB 1 APPLIC TOPICAL ×2 (08:19→19:52)
[2024-01-14] MEDS: NOVOLOG FLEXPEN SC ×2 (08:19→20:07)
[2024-01-14] MEDS: NON-FORMULARY ITEM 80 MG PO (08:21)
[2024-01-14] MEDS: NON-FORMULARY ITEM 1 MG PO ×2 (08:22→19:51)
[2024-01-14] MEDS: NON-FORMULARY ITEM 1 UNIT PO ×2 (08:24→19:51)
[2024-01-14] MEDS: ZADITOR 1 DROP BOTH EYES ×2 (08:25→19:54)
[2024-01-14] MEDS: NSS (PRESERVATIVE FREE) 6 ML IV ×2 (08:25→19:53)
[2024-01-14 08:26] LABS: Glucose - Point of Care 91 mg/dl (70-99)
[2024-01-14] MEDS: PEPCID 40 MG IV ×2 (08:26→19:53)
[2024-01-14] MEDS: ZOFRAN 4 MG IV ×2 (09:35→16:35)
[2024-01-14 11:57] LABS: Glucose - Point of Care 95 mg/dl (70-99)
[2024-01-14] MEDS: NOVOLOG FLEXPEN 3 UNITS SC (13:43)
[2024-01-14] MEDS: SINEMET 25-100 2 TABLET TUBE ×2 (13:44→17:19)
[2024-01-14] MEDS: NON-FORMULARY ITEM 200 MG PO (13:58)
[2024-01-14] MEDS: ZYRTEC 10 MG TUBE ×2 (16:23→21:49)
--- NOTE | 2024-01-14 16:24 | CM ---
Patient with Hx Mast Cell Activation Syndrome, dystonia/movement disorder, chronic pain syndrome, gastroparesis with Dx Gram-negative bacteremia due to chronic infected PICC line.
Phone call to Calli, [facility] , fax [phone]); left message requesting callback re; progress securing non-skilled caregivers.
Phone call from Saravanan Pharmacist, [facility] , fax [phone] or [phone]); informed him that the patient's nurses and caregivers not lined up yet, so she is not ready for d/c.
Phone call to Leni Avalos Service Coordination [employer] ); [facility] are only able to provide 4 days/week skilled nurse 24 hr care. She is aware that an agency is still needed to do the other 3 days skilled RN
care and also an agency that can provide 7days/week non skilled caregivers. She called several different agencies/made several more referrals today. Amara plans on contacting [facility] to inquire what they might be able to provide. She
confirms that the RNs will not provide the ADLs/caregiver services.
Update provided to Brigida Leavitt CM Director & Dr Kirk.
Plan follow up with Leni re; skilled & non-skilled caregiver arrangements.
Plan follow up with [facility] once d/c date known.
--- NOTE | 2024-01-14 18:05 | W.PN.HOSP.TC ---
Today's Communication/Plan
-
Discharge planing
Assessment / Plan
Assessment / Plan
Conditions prior to admission:
1. Mast cell activation syndrome.
2. Chronic dystonic reaction.
3. Orthostatic hypotension with postural orthostatic and tachycardia syndrome.
4. Dopa sensitive dystonia.
5. Steroid-induced diabetes.
6. Prior history of deep venous thrombosis and pulmonary embolism.
7. Chronic pain syndrome.
8. Migraine headaches.
9. Gastroesophageal reflux disease.
10. Benzodiazepine and opiate dependence.
11. Restless legs syndrome.
12. Insomnia.
13. History of vocal cord dysfunction.
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
15. Gastroparesis.
16. 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
17. 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
33yo F with PMHx of GERD, dystonia, allergic asthma, migraine, chronic hypoxia on 2L O2, steroid induced DM, Esophageal dysmotility on PEG, JUANJOSE, chronic pain syndrome with opioid dependency, mast cell syndrome on benadryl drip and steroids came to
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 Had PICC line replaced and completed cipro as per ID. Due to concern for PEG tube malfunction had
it replaced wice on 09/22 and 11/04. Continued on benadryl drip 2/2 hx of recurrent anaphylaxis 2/2 mast cell activation syndrome and weaned off it. Had multiple multidisciplianry meetings in attempts to minimize IV medication. PO Benadryl is continued
with recommendation to increase to max 300mg/day as needed.
Had fall on 10/03 and found Fx of 6th and 7th ribs without complications.
Attempt to transfer to [facility] (where patient was getting all her care) failed since receiving hospital administration was concerned for too high complexity of the patient
Ongoing disposition attempts per CM for home care.
A/P:
#Bacteremia 2/2 CLABSI
Completed cipro on 10/06/23
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
follows with Dr. Lizabeth Villanueva at [facility] hematology.
Continue Ativan
cont Gleevac, steroids
Levalbuterol as needed
Continue carbidopa levodopa
prednisone continued
Outpatient IV Benadryl drip at 15 mg/hr upon presentation. As discussed with primary process expert Dr. Mora plan is to slowly taper.
Multiple conversations with patient almost on a daily basis in regards to goals of care including attempt to wean off Benadryl drip with possibly substitution to oral regimen to facilitate discharge as well as outpatient management. Patient has been
resistant to wean off Benadryl drip completely at this point as per Dr. Kirk
11/26. Multidisciplinary meeting including psychiatry, clinical pharmacy, medicine, nursing.
Patient clinical course along with medication regimen has been reviewed.
With the goal of minimize exposure to IV medications and optimize regimen following changes implemented:
-Daily IV fluids discontinued with plan to monitor oral intake and orthostatics.
-IV Benadryl pushes have been discontinued.
-Lorazepam sublingual as needed order has been discontinued.
-IV lorazepam has been discontinued
Initiated:
Benadryl 25 mg infusion through piggyback will be provided over 10 minutes for breakthrough dystonic attack.
Benadryl p.o. 25 mg will be scheduled every 4 hours.
Lorazepam sublingual 1 mg with the scheduled while awake every 4 hours.
Hydromorphone p.o. 8 mg Q6H PRN will be continued for severe pain along with Suboxone.
12/02.
Multidisciplinary discussion involving nursing, primary service, psychiatry, pharmacy, case management
Plan is to continue current care including intravenous Benadryl drip wean. Schedule below:
Diphenhydramine continuous infusion taper schedule Q72hr
8 @1300 � 8/5 @1259 � 2MG/HR
12/21 @1300 � 12/24 @1259 � 1MG/HR
12/25 @12/27 @0.5 mg/hr, and plan to further decrease to 0.25 mg/hr starting 12/28
Can consider increasing diphenhydramine PO up to max 300mg/day IF NEEDED. Would recommend increasing if episodes increase.
Current dose is 25 mg Q4H via tube, would increase to 37.5mg Q4H IF NEEDED, completely off the drip 12/29
#Dystonia
Cont baclofen and synemet
#Thrush
Completed clotrimasole troches
#GERD
#Chronic pain syndrome withn opioid dependency
#Sinus tachycardia, chronic
#Esophageal dysmotility
#Gastroparesis on PEG
#RLS
#Hx of DVT
#Allergy induced asthma with chronic hypoxic respiratory failure on 2L home O2
#Migraine d/o
Cont home meds
#Fall with uncomplicated 6,7 rib Fx
on 09/22
#DM steroid induced
Accuchecks
Insulin
DM diet
#Iatrogenic immunosuppression
2/2 steroids
reverse isolation
DVT ppx on ELqiuis
Full code
I have spent at least 57min reviewing the chart and providing direct patient care
Disposition: Discussion with primary process expert Dr. Ethan Villanueva on 10/09. Discussed possibility of attempting weaning Benadryl drip likely could be done as outpatient. With current family social situation, unfortunately there is no options
for disposition other than home on IV infusion. Possibility of a transfer to [facility] discussed as well, although according to Dr. Villanueva hospital administration declined services due to complexity. Also discussed possibility of
transfer to tertiary center ([facility] declined in the past).
10/[address] Villanueva over the phone as well as [facility] transfer center.
Complex patient. Attempt to wean off Benadryl drip over the last 2 weeks with persistent dystonic episodes.
While patient is relatively stable with her current condition, given complex clinical picture requiring multi disciplinary approach not limited to medicine, hematology, allergology, as well as neuropsychiatric assessment, patient would be better
served at a tertiary facility. Patient was accepted to [facility] for transfer, but hospital administration denied her transfer due to complexity (discussed with patient who is aware)
Anticipated Discharge: 24 - 48 hours
Subjective/Interval History
-
Date of Service: January 14, 2024
Objective Data
-
Vital Signs:
Vital Signs
Temp Pulse Resp BP Pulse Ox
98.5 F 101 18 93/59 98
01/14/24 07:55 01/14/24 07:59 01/14/24 07:59 01/14/24 04:00 01/14/24 07:59
I&O
01/13/24 01/14/24 01/15/24
06:59 06:59 06:59
Intake Total 640 / 640 50 / 50 240 / 240
Output Total 2200 / 2200 1400 / 1400 1250 / 1250
Balance -1560 / -1560 -1350 / -1350 -1010 / -1010
Physical Exam
-
General: No Apparent Distress
HEENT: Normocephalic
Respiratory: Clear to Auscultation
Neuro: Awake, Alert, Oriented and AO x 3
Psych: Calm
[2024-01-14 18:34] LABS: Glucose - Point of Care 105 mg/dl (70-99)
--- NOTE | 2024-01-14 20:02 | PTCARENOTE ---
day shift note. see nursing assessment. pt had two dystonic episodes on day shift. medicated with prn benadryl per order with relief of symptoms.
[2024-01-14] MEDS: FEOSOL 325 MG PO (21:50)
[2024-01-14 22:19] LABS: Glucose - Point of Care 153 mg/dl (70-99)
--- NOTE | 2024-01-14 23:35 | PTCARENOTE ---
Pt resting comfortably in bed. Hygiene care performed. PRN benadryl given for one episode of dystonia. Call sanchez within reach.
[2024-01-15] VITALS: BP 107/63
[2024-01-15] MEDS: BENADRYL SOLUTION 25 MG TUBE ×6 (03:15→21:06)
[2024-01-15] MEDS: ATIVAN 1 MG SL ×4 (03:15→21:04)
[2024-01-15 04:00] VITALS: BP 108/63
[2024-01-15] MEDS: SINEMET 25-100 1.5 TABLET TUBE ×2 (05:10→09:00)
[2024-01-15] MEDS: LIORESAL 10 MG TUBE ×3 (05:11→21:05)
[2024-01-15] MEDS: DUONEB 3 ML INH ×3 (06:06→21:00)
[2024-01-15] MEDS: PULMICORT 0.5 MG INH ×2 (06:06→21:00)
[2024-01-15 08:00] VITALS: BP 116/78
[2024-01-15 08:02] LABS: Glucose - Point of Care 88 mg/dl (70-99)
[2024-01-15] MEDS: GASTROCROM 300 MG PO ×4 (08:23→21:06)
[2024-01-15] MEDS: LANTUS 0.1 UNITS SC (08:23)
[2024-01-15] MEDS: NOVOLOG FLEXPEN SC ×3 (08:24→18:21)
[2024-01-15] MEDS: NOVOLOG FLEXPEN-LOW RESISTANCE SC ×3 (08:24→17:54)
[2024-01-15] MEDS: LIDOCAINE 4% PATCH 1 PATCH TOPICAL (08:26)
[2024-01-15] MEDS: MIRALAX 17 GRAMS TUBE (08:26)
[2024-01-15] MEDS: HYDREA 500 MG PO ×2 (08:27→21:05)
[2024-01-15] MEDS: PEPCID 40 MG IV ×2 (08:27→21:06)
[2024-01-15] MEDS: SUBUTEX 2 MG SL ×4 (08:28→21:04)
[2024-01-15] MEDS: ELIQUIS 5 MG PO ×2 (08:28→21:05)
[2024-01-15] MEDS: VITAMIN B1 100 MG TUBE (08:28)
[2024-01-15] MEDS: ZOFRAN 4 MG IV ×2 (08:28→15:58)
[2024-01-15] MEDS: CLARITIN 10 MG TUBE (08:28)
[2024-01-15] MEDS: DELTASONE 10 MG TUBE ×2 (08:28→21:05)
[2024-01-15] MEDS: INDERAL 10 MG TUBE ×3 (08:28→21:05)
[2024-01-15] MEDS: COLACE 100 MG PO ×2 (08:28→21:04)
[2024-01-15] MEDS: TYLENOL 650 MG PO (08:28)
[2024-01-15] MEDS: DESENEX/MITRAZOL/ZEASORB 1 APPLIC TOPICAL ×2 (08:29→21:07)
[2024-01-15] MEDS: NON-FORMULARY ITEM 80 MG PO (08:44)
[2024-01-15] MEDS: NON-FORMULARY ITEM 1 MG PO ×2 (08:45→21:07)
[2024-01-15] MEDS: NON-FORMULARY ITEM 1 UNIT PO ×2 (08:46→21:08)
[2024-01-15] MEDS: NSS (PRESERVATIVE FREE) 6 ML IV ×2 (08:46→21:06)
[2024-01-15] MEDS: ZADITOR 1 DROP BOTH EYES ×2 (08:58→21:07)
[2024-01-15] MEDS: BENADRYL 50.5 MG IV ×3 (09:08→21:19)
[2024-01-15 12:00] VITALS: BP 108/77
[2024-01-15 12:39] LABS: Glucose - Point of Care 94 mg/dl (70-99)
[2024-01-15] MEDS: NON-FORMULARY ITEM 200 MG PO (13:31)
[2024-01-15] MEDS: SINEMET 25-100 2 TABLET TUBE ×2 (13:31→17:45)
--- NOTE | 2024-01-15 14:40 | W.PN.HOSP.TC ---
Today's Communication/Plan
-
Remains off of Benadryl drip
Continue supportive care
Ongoing disposition efforts.
Assessment / Plan
Assessment / Plan
Conditions prior to admission:
1. Mast cell activation syndrome.
2. Chronic dystonic reaction.
3. Orthostatic hypotension with postural orthostatic and tachycardia syndrome.
4. Dopa sensitive dystonia.
5. Steroid-induced diabetes.
6. Prior history of deep venous thrombosis and pulmonary embolism.
7. Chronic pain syndrome.
8. Migraine headaches.
9. Gastroesophageal reflux disease.
10. Benzodiazepine and opiate dependence.
11. Restless legs syndrome.
12. Insomnia.
13. History of vocal cord dysfunction.
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
15. Gastroparesis.
16. 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
17. 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
33yo F with PMHx of GERD, dystonia, allergic asthma, migraine, chronic hypoxia on 2L O2, steroid induced DM, Esophageal dysmotility on PEG, JUANJOSE, chronic pain syndrome with opioid dependency, mast cell syndrome on benadryl drip and steroids came to
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 Had PICC line replaced and completed cipro as per ID. Due to concern for PEG tube malfunction had
it replaced wice on 09/22 and 11/04. Continued on benadryl drip 2/2 hx of recurrent anaphylaxis 2/2 mast cell activation syndrome and weaned off it. Had multiple multidisciplianry meetings in attempts to minimize IV medication. PO Benadryl is continued
with recommendation to increase to max 300mg/day as needed.
Had fall on 10/03 and found Fx of 6th and 7th ribs without complications.
Attempt to transfer to [facility] (where patient was getting all her care) failed since receiving hospital administration was concerned for too high complexity of the patient
Ongoing disposition attempts per for home care.
A/P:
#Bacteremia 2/2 CLABSI
Completed cipro on 10/06/23
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
follows with Dr. Lizabeth Villanueva at [facility] hematology.
Continue Ativan
cont Gleevac, steroids
Levalbuterol as needed
Continue carbidopa levodopa
prednisone continued
Outpatient IV Benadryl drip at 15 mg/hr upon presentation. As discussed with primary spot welder line Dr. Mora plan is to slowly taper.
Multiple conversations with patient almost on a daily basis in regards to goals of care including attempt to wean off Benadryl drip with possibly substitution to oral regimen to facilitate discharge as well as outpatient management. Patient has been
resistant to wean off Benadryl drip completely at this point as per Dr. Kirk
11/26. Multidisciplinary meeting including psychiatry, clinical pharmacy, medicine, nursing.
Patient clinical course along with medication regimen has been reviewed.
With the goal of minimize exposure to IV medications and optimize regimen following changes implemented:
-Daily IV fluids discontinued with plan to monitor oral intake and orthostatics.
-IV Benadryl pushes have been discontinued.
-Lorazepam sublingual as needed order has been discontinued.
-IV lorazepam has been discontinued
Initiated:
Benadryl 25 mg infusion through piggyback will be provided over 10 minutes for breakthrough dystonic attack.
Benadryl p.o. 25 mg will be scheduled every 4 hours.
Lorazepam sublingual 1 mg with the scheduled while awake every 4 hours.
Hydromorphone p.o. 8 mg Q6H PRN will be continued for severe pain along with Suboxone.
12/02.
Multidisciplinary discussion involving nursing, primary service, psychiatry, pharmacy, case management
Plan is to continue current care including intravenous Benadryl drip wean. Schedule below:
Diphenhydramine continuous infusion taper schedule Q72hr
12/18 @12/21 @1259 � 2MG/HR
12/21 @12/24 @1259 � 1MG/HR
12/25 @12/27 @0.5 mg/hr, and plan to further decrease to 0.25 mg/hr starting 12/28
Can consider increasing diphenhydramine PO up to max 300mg/day IF NEEDED. Would recommend increasing if episodes increase.
Current dose is 25 mg Q4H via tube, would increase to 37.5mg Q4H IF NEEDED, completely off the drip 12/29
#Dystonia
Cont baclofen and synemet
#Thrush
Completed clotrimasole troches
#GERD
#Chronic pain syndrome withn opioid dependency
#Sinus tachycardia, chronic
#Esophageal dysmotility
#Gastroparesis on PEG
#RLS
#Hx of DVT
#Allergy induced asthma with chronic hypoxic respiratory failure on 2L home O2
#Migraine d/o
Cont home meds
#Fall with uncomplicated 6,7 rib Fx
on 09/22
#DM steroid induced
Accuchecks
Insulin
DM diet
#Iatrogenic immunosuppression
2/2 steroids
reverse isolation
DVT ppx on ELqiuis
Full code
I have spent at least 57min reviewing the chart and providing direct patient care
Disposition: Discussion with primary spot welder line Dr. Ethan Villanueva on 10/09. Discussed possibility of attempting weaning Benadryl drip likely could be done as outpatient. With current family social situation, unfortunately there is no options
for disposition other than home on IV infusion. Possibility of a transfer to [facility] discussed as well, although according to Dr. Villanueva hospital administration declined services due to complexity. Also discussed possibility of
transfer to tertiary center ([facility] declined in the past).
10/[address] Villanueva over the phone as well as [facility] transfer center.
Complex patient. Attempt to wean off Benadryl drip over the last 2 weeks with persistent dystonic episodes.
While patient is relatively stable with her current condition, given complex clinical picture requiring multi disciplinary approach not limited to medicine, hematology, allergology, as well as neuropsychiatric assessment, patient would be better
served at a tertiary facility. Patient was accepted to [facility] for transfer, but hospital administration denied her transfer due to complexity (discussed with patient who is aware)
Anticipated Discharge: 24 - 48 hours
Subjective/Interval History
-
Date of Service: January 15, 2024
Objective Data
-
Vital Signs:
Vital Signs
Temp Pulse Resp BP Pulse Ox
98.3 F 101 15 116/78 98
01/15/24 11:52 01/15/24 10:00 01/15/24 10:00 01/15/24 08:00 01/15/24 06:08
I&O
01/14/24 01/15/24 01/16/24
06:59 06:59 06:59
Intake Total 50 / 50 350 / 350 480 / 480
Output Total 1400 / 1400 3700 / 3700 800 / 800
Balance -1350 / -1350 -3350 / -3350 -320 / -320
Physical Exam
-
General: No Apparent Distress
HEENT: Normocephalic
Respiratory: Clear to Auscultation
Neuro: Awake, Alert, Oriented and AO x 3
Psych: Calm
[2024-01-15 16:00] VITALS: BP 140/89
--- NOTE | 2024-01-15 16:09 | PTCARENOTE ---
Pt having 2nd episode of the day at this time, asking for respiratory-coughing harshly and frequently, sat 97% on 2L. RT at bedside to give neb at this time. PRN Zofran and Benadryl given -see MAR. Emotional support provided. Paddy daily continues.
Call sanchez in reach.
--- NOTE | 2024-01-15 16:41 | CM ---
Patient with Hx Mast Cell Activation Syndrome, dystonia/movement disorder, chronic pain syndrome, gastroparesis with Dx Gram-negative bacteremia due to chronic infected PICC line.
Spoke with Leni Avalos Service Coordination Saxophone Teacher ([place] [phone]) this morning; she had contacted [facility] and there was no update at that time.
Spoke with Roslyn Ferreira, Racecourse Barrier Attendant [facility] (ph [phone]); The outstanding unfulfilled needs for d/c to home are: RN for shift coverage 3 days/week, non skilled caregiver 7 days/week. [facility] responded saying that they
were unable to provide any skilled or non-skilled staff.
Case discussed with Brigida Leavitt CM Director.
Plan follow up with Leni re; skilled & non-skilled caregiver arrangements.
Plan follow up with [facility] once d/c date known.
[2024-01-15] MEDS: ATIVAN SL (17:36)
[2024-01-15 17:40] LABS: Glucose - Point of Care 137 mg/dl (70-99)
[2024-01-15] MEDS: ZYRTEC 10 MG TUBE ×2 (17:45→21:05)
[2024-01-15] MEDS: NOVOLOG FLEXPEN 3 UNITS SC (17:45)
--- NOTE | 2024-01-15 19:20 | PTCARENOTE ---
Pt asked for 16:00 dose of Ativan with med pass at 18:00, (was not given d/t pt having episode at the time and unable to take PO medications)This RN clarified with pharmacy that it was ok to give Ativan at this time, ok'd by pharmacy to give. Pt w/d
and c/o 'not feeling well,' emotional support provided. Handoff to validation architect RN Osiris completed at this time.
[2024-01-15 21:03] VITALS: BP 108/76
[2024-01-15] MEDS: FEOSOL 325 MG PO (21:05)
[2024-01-15 21:33] LABS: Glucose - Point of Care 122 mg/dl (70-99)
[2024-01-16] VITALS: BP 96/64
[2024-01-16] MEDS: ATIVAN 1 MG SL ×4 (03:42→23:28)
[2024-01-16] MEDS: BENADRYL SOLUTION 25 MG TUBE ×6 (03:42→23:28)
[2024-01-16 04:00] VITALS: BP 97/68
--- NOTE | 2024-01-16 04:21 | PTCARENOTE ---
Received pt at change of shift. Dystonic episode x1 this shift. Administered PRN IV Benadryl (see MAR). Pt responded well to tx. Hygiene care provided. Resting in bed with call sanchez in reach.
[2024-01-16] MEDS: LIORESAL 10 MG TUBE ×3 (05:22→23:29)
[2024-01-16] MEDS: SINEMET 25-100 1.5 TABLET TUBE ×2 (05:22→09:39)
[2024-01-16] MEDS: PULMICORT 0.5 MG INH ×2 (07:56→19:53)
[2024-01-16] MEDS: DUONEB 3 ML INH ×2 (07:56→16:13)
[2024-01-16 08:00] VITALS: BP 126/79
[2024-01-16 08:46] LABS: Glucose - Point of Care 76 mg/dl (70-99)
[2024-01-16] MEDS: NOVOLOG FLEXPEN SC ×2 (08:55→18:07)
[2024-01-16] MEDS: NOVOLOG FLEXPEN-LOW RESISTANCE SC ×3 (08:56→18:07)
[2024-01-16] MEDS: DESENEX/MITRAZOL/ZEASORB 1 APPLIC TOPICAL ×2 (09:36→20:04)
[2024-01-16] MEDS: LANTUS 0.1 UNITS SC (09:36)
[2024-01-16] MEDS: LIDOCAINE 4% PATCH 1 PATCH TOPICAL (09:37)
[2024-01-16] MEDS: MIRALAX 17 GRAMS TUBE (09:37)
[2024-01-16] MEDS: GASTROCROM 300 MG PO ×4 (09:37→23:28)
[2024-01-16] MEDS: SUBUTEX 2 MG SL ×4 (09:38→23:29)
[2024-01-16] MEDS: PEPCID 40 MG IV ×2 (09:38→20:08)
[2024-01-16] MEDS: DELTASONE 10 MG TUBE ×2 (09:39→20:19)
[2024-01-16] MEDS: HYDREA 500 MG PO ×2 (09:39→20:07)
[2024-01-16] MEDS: ELIQUIS 5 MG PO ×2 (09:39→20:06)
[2024-01-16] MEDS: CLARITIN 10 MG TUBE (09:39)
[2024-01-16] MEDS: VITAMIN B1 100 MG TUBE (09:39)
[2024-01-16] MEDS: COLACE 100 MG PO ×2 (09:40→20:04)
[2024-01-16] MEDS: INDERAL 10 MG TUBE ×3 (09:40→23:29)
[2024-01-16] MEDS: NSS (PRESERVATIVE FREE) 6 ML IV ×2 (09:40→20:08)
[2024-01-16] MEDS: NON-FORMULARY ITEM 1 UNIT PO ×2 (09:42→20:15)
[2024-01-16] MEDS: NON-FORMULARY ITEM 80 MG PO (09:43)
[2024-01-16] MEDS: NON-FORMULARY ITEM 1 MG PO ×2 (09:44→20:16)
[2024-01-16] MEDS: ZADITOR 1 DROP BOTH EYES ×2 (09:45→20:08)
--- NOTE | 2024-01-16 09:45 | PTCARENOTE ---
Patient received from warehouse worker 2nd shift. Patient resting comfortably in bed. AAO, VSS. One event noted overnight and treated with PRN Benadryl. No complaints of pain at this time. Currently on 2L N/C for HS, will take off during the day to Room Air
as tolerated. Plan to trial IM Benadryl to wean off IV for episodes, awaiting order from Pharmacy. Purewick in place. Call sanchez in reach.
[2024-01-16] MEDS: ZOFRAN 4 MG IV ×3 (09:47→23:47)
[2024-01-16] MEDS: BENADRYL 50.5 MG IV ×3 (10:21→23:16)
[2024-01-16 12:00] VITALS: BP 115/82
[2024-01-16 12:14] LABS: Glucose - Point of Care 103 mg/dl (70-99)
[2024-01-16] MEDS: NOVOLOG FLEXPEN 3 UNITS SC (12:53)
[2024-01-16] MEDS: SINEMET 25-100 2 TABLET TUBE ×2 (14:59→17:51)
[2024-01-16] MEDS: NON-FORMULARY ITEM 200 MG PO (15:02)
[2024-01-16] MEDS: BENADRYL 25 MG IM ×2 (15:14→22:03)
--- NOTE | 2024-01-16 15:52 | PTCARENOTE ---
Patient with dystonic episode. PRN IM Benadryl given without success, HR remained in 140's-150's and with continued dystonic activity. PRN IV Benadryl given. Coughing and dry heaving. Hospitalist made aware.
--- NOTE | 2024-01-16 15:59 | W.PN.HOSP.TC ---
Today's Communication/Plan
-
Attempted transition Benadryl dose given for dystonic reaction to intramuscular route with bicarb dose via IV piggyback if dystonia lasts over 60 minutes.
Assessment / Plan
Assessment / Plan
Conditions prior to admission:
1. Mast cell activation syndrome.
2. Chronic dystonic reaction.
3. Orthostatic hypotension with postural orthostatic and tachycardia syndrome.
4. Dopa sensitive dystonia.
5. Steroid-induced diabetes.
6. Prior history of deep venous thrombosis and pulmonary embolism.
7. Chronic pain syndrome.
8. Migraine headaches.
9. Gastroesophageal reflux disease.
10. Benzodiazepine and opiate dependence.
11. Restless legs syndrome.
12. Insomnia.
13. History of vocal cord dysfunction.
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
15. Gastroparesis.
16. 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
17. 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
33yo F with PMHx of GERD, dystonia, allergic asthma, migraine, chronic hypoxia on 2L O2, steroid induced DM, Esophageal dysmotility on PEG, JUANJOSE, chronic pain syndrome with opioid dependency, mast cell syndrome on benadryl drip and steroids came to
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 Had PICC line replaced and completed cipro as per ID. Due to concern for PEG tube malfunction had
it replaced wice on 09/22 and 11/04. Continued on benadryl drip 2/2 hx of recurrent anaphylaxis 2/2 mast cell activation syndrome and weaned off it. Had multiple multidisciplianry meetings in attempts to minimize IV medication. PO Benadryl is continued
with recommendation to increase to max 300mg/day as needed.
Had fall on 10/03 and found Fx of 6th and 7th ribs without complications.
Attempt to transfer to [facility] (where patient was getting all her care) failed since receiving hospital administration was concerned for too high complexity of the patient
Ongoing disposition attempts per CM for home care.
A/P:
#Bacteremia 2/2 CLABSI
Completed cipro on 10/06/23
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
follows with Dr. Lizabeth Villanueva at [facility] hematology.
Continue Ativan
cont Gleevac, steroids
Levalbuterol as needed
Continue carbidopa levodopa
prednisone continued
Outpatient IV Benadryl drip at 15 mg/hr upon presentation. As discussed with primary gang drill press operator Dr. Mora plan is to slowly taper.
Multiple conversations with patient almost on a daily basis in regards to goals of care including attempt to wean off Benadryl drip with possibly substitution to oral regimen to facilitate discharge as well as outpatient management. Patient has been
resistant to wean off Benadryl drip completely at this point as per Dr. Kirk
11/26. Multidisciplinary meeting including psychiatry, clinical pharmacy, medicine, nursing.
Patient clinical course along with medication regimen has been reviewed.
With the goal of minimize exposure to IV medications and optimize regimen following changes implemented:
-Daily IV fluids discontinued with plan to monitor oral intake and orthostatics.
-IV Benadryl pushes have been discontinued.
-Lorazepam sublingual as needed order has been discontinued.
-IV lorazepam has been discontinued
Initiated:
Benadryl 25 mg infusion through piggyback will be provided over 10 minutes for breakthrough dystonic attack.
Benadryl p.o. 25 mg will be scheduled every 4 hours.
Lorazepam sublingual 1 mg with the scheduled while awake every 4 hours.
Hydromorphone p.o. 8 mg Q6H PRN will be continued for severe pain along with Suboxone.
12/02.
Multidisciplinary discussion involving nursing, primary service, psychiatry, pharmacy, case management
Plan is to continue current care including intravenous Benadryl drip wean. Schedule below:
Diphenhydramine continuous infusion taper schedule Q72hr
12/18 @1299 � 8 @1259 � 2MG/HR
12/21 @1300 � 12/24 @1259 � 1MG/HR
12/25 @12/27 @0.5 mg/hr, and plan to further decrease to 0.25 mg/hr starting 12/28
Can consider increasing diphenhydramine PO up to max 300mg/day IF NEEDED. Would recommend increasing if episodes increase.
Current dose is 25 mg Q4H via tube, would increase to 37.5mg Q4H IF NEEDED, completely off the drip 12/29
01/15. Attempted transition Benadryl dose given for dystonic reaction to intramuscular route with bicarb dose via IV piggyback if dystonia lasts over 60 minutes.
#Dystonia
Cont baclofen and synemet
#Thrush
Completed clotrimasole troches
#GERD
#Chronic pain syndrome withn opioid dependency
#Sinus tachycardia, chronic
#Esophageal dysmotility
#Gastroparesis on PEG
#RLS
#Hx of DVT
#Allergy induced asthma with chronic hypoxic respiratory failure on 2L home O2
#Migraine d/o
Cont home meds
#Fall with uncomplicated 6,7 rib Fx
on 09/22
#DM steroid induced
Accuchecks
Insulin
DM diet
#Iatrogenic immunosuppression
2/2 steroids
reverse isolation
DVT ppx on ELqiuis
Full code
I have spent at least 57min reviewing the chart and providing direct patient care
Disposition: Discussion with primary gang drill press operator Dr. Ethan Villanueva on 10/09. Discussed possibility of attempting weaning Benadryl drip likely could be done as outpatient. With current family social situation, unfortunately there is no options
for disposition other than home on IV infusion. Possibility of a transfer to [facility] discussed as well, although according to Dr. Villanueva hospital administration declined services due to complexity. Also discussed possibility of
transfer to tertiary center ([facility] declined in the past).
10/[address] Villanueva over the phone as well as [facility] transfer center.
Complex patient. Attempt to wean off Benadryl drip over the last 2 weeks with persistent dystonic episodes.
While patient is relatively stable with her current condition, given complex clinical picture requiring multi disciplinary approach not limited to medicine, hematology, allergology, as well as neuropsychiatric assessment, patient would be better
served at a tertiary facility. Patient was accepted to [facility] for transfer, but hospital administration denied her transfer due to complexity (discussed with patient who is aware)
Anticipated Discharge: > 48 hours
Subjective/Interval History
-
Date of Service: January 16, 2024
Objective Data
-
Vital Signs:
Vital Signs
Temp Pulse Resp BP Pulse Ox
98.3 F 109 16 115/82 96
01/16/24 15:33 01/16/24 14:59 01/16/24 07:59 01/16/24 14:59 01/16/24 11:07
I&O
01/15/24 01/16/24 01/17/24
06:59 06:59 06:59
Intake Total 350 / 350 960 / 960
Output Total 3700 / 3700 2250 / 2250
Balance -3350 / -3350 -1290 / -1290
Physical Exam
-
General: No Apparent Distress
HEENT: Normocephalic
Respiratory: Clear to Auscultation
Neuro: Awake, Alert, Oriented and AO x 3
Psych: Calm
[2024-01-16 16:00] VITALS: BP 133/86
[2024-01-16] MEDS: ATIVAN 0.5 MG IV ×2 (16:21→23:47)
[2024-01-16] MEDS: NSS (PRESERVATIVE FREE) 0.5 ML IV (16:21)
--- NOTE | 2024-01-16 16:48 | CM ---
Patient with Hx Mast Cell Activation Syndrome, dystonia/movement disorder, chronic pain syndrome, gastroparesis with Dx Gram-negative bacteremia due to chronic infected PICC line.
Message from Roslyn Ferreira, Software Systems Engineer [employer]i [facility] [employer] ([place] [phone]); requesting referral to be sent to Dr Nunez at [facility] ph [phone], fax [phone]. Referral faxed.
Plan follow up with Leni maldonado; skilled & non-skilled caregiver arrangements.
Plan follow up with [facility] once d/c date known.
[2024-01-16] MEDS: ZYRTEC 10 MG TUBE ×2 (17:51→23:30)
[2024-01-16 18:14] LABS: Glucose - Point of Care 109 mg/dl (70-99)
--- NOTE | 2024-01-16 20:10 | PTCARENOTE ---
Received pt from previous shift; AAOx3, filing paperwork on her laptop. Pt reports she had a rough afternoon with new medication regimen and a dystonic episode. C/o mild 3/10 pain to 'joints' which she notes is normal for her after episodes, PRN
Tylenol given, see MAR. Assessment as documented. VSS. Pt updated on POC for the evening, no questions at this time.
[2024-01-16] MEDS: TYLENOL 650 MG PO (20:14)
[2024-01-16 20:33] VITALS: BP 115/79
[2024-01-16 21:39] LABS: Glucose - Point of Care 122 mg/dl (70-99)
--- NOTE | 2024-01-16 22:05 | PTCARENOTE ---
Upon entering pt's room with 2200 meds, pt began with dystonic episode. PRN IM Benadryl given as ordered, see MAR. Dry heaving and cough noted, 2L O2 NC remains on pt for support. Sinus tachycardia on the monitor in the 150's.
--- NOTE | 2024-01-16 23:20 | PTCARENOTE ---
Addendum entered by Thierry Peterson RN 01/17/24 00:03:
New orders placed by [place] provider:
-0.5 ativan IV.
Pt. episode has stopped, patient verbalizing needs, offers no complaints, Hemodynamically stable. Normotensive.
Original Note:
Assumed care of patient approx. 2300.
Upon entering room pt. having persistent episode despite IM benadryl given from previous RN. Per MAR IV benadryl started.
Episode persisting despite PRNs, unable to give 2200 meds due to episode.
[place] [employer] aware.
[2024-01-16] MEDS: FEOSOL 325 MG PO (23:28)
[2024-01-16] MEDS: NSS (PRESERVATIVE FREE) 0.25 ML IV (23:47)
[2024-01-17] VITALS: BP 129/93
[2024-01-17] MEDS: BENADRYL SOLUTION 25 MG TUBE ×6 (01:48→22:06)
[2024-01-17] MEDS: TYLENOL 650 MG PO ×3 (01:48→15:14)
[2024-01-17 04:00] VITALS: BP 99/63
[2024-01-17] MEDS: ATIVAN 1 MG SL ×4 (05:02→22:06)
[2024-01-17] MEDS: LIORESAL 10 MG TUBE ×3 (05:03→22:07)
[2024-01-17] MEDS: SINEMET 25-100 1.5 TABLET TUBE ×2 (05:03→09:37)
[2024-01-17] MEDS: PULMICORT 0.5 MG INH ×2 (07:58→20:44)
[2024-01-17] MEDS: DUONEB 3 ML INH ×2 (07:59→20:44)
[2024-01-17 08:00] VITALS: BP 103/75
[2024-01-17 08:46] LABS: Glucose - Point of Care 76 mg/dl (70-99)
[2024-01-17] MEDS: NOVOLOG FLEXPEN SC (08:59)
[2024-01-17] MEDS: NOVOLOG FLEXPEN-LOW RESISTANCE SC ×3 (09:00→17:21)
--- NOTE | 2024-01-17 09:13 | W.PN.HOSP.TC ---
Today's Communication/Plan
-
Continue current management.
Assessment / Plan
Assessment / Plan
Physical exam:
General: Chronically ill
HEENT: Normocephalic, Atraumatic and Moist Mucous Membranes
Respiratory: Clear to Auscultation; Negative Wheezes, Rales or Rhonchi
Cardiac: Regular Rhythm and S1/S2
GI: Soft, Nontender and Nondistended
Musculoskeletal: No Clubbing, No Cyanosis and No Edema
Neuro: Awake, Alert and Oriented
Psych: Anxious
A/P:
Conditions prior to admission:
1. Mast cell activation syndrome.
2. Chronic dystonic reaction.
3. Orthostatic hypotension with postural orthostatic and tachycardia syndrome.
4. Dopa sensitive dystonia.
5. Steroid-induced diabetes.
6. Prior history of deep venous thrombosis and pulmonary embolism.
7. Chronic pain syndrome.
8. Migraine headaches.
9. Gastroesophageal reflux disease.
10. Benzodiazepine and opiate dependence.
11. Restless legs syndrome.
12. Insomnia.
13. History of vocal cord dysfunction.
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
15. Gastroparesis.
16. 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
17. 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
33yo F with PMHx of GERD, dystonia, allergic asthma, migraine, chronic hypoxia on 2L O2, steroid induced DM, Esophageal dysmotility on PEG, JUANJOSE, chronic pain syndrome with opioid dependency, mast cell syndrome on benadryl drip and steroids came to
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 Had PICC line replaced and completed cipro as per ID. Due to concern for PEG tube malfunction had
it replaced wice on 09/22 and 11/04. Continued on benadryl drip 2/2 hx of recurrent anaphylaxis 2/2 mast cell activation syndrome and weaned off it. Had multiple multidisciplianry meetings in attempts to minimize IV medication. PO Benadryl is continued
with recommendation to increase to max 300mg/day as needed.
Had fall on 10/03 and found Fx of 6th and 7th ribs without complications.
Attempt to transfer to [facility] (where patient was getting all her care) failed since receiving hospital administration was concerned for too high complexity of the patient
Ongoing disposition attempts per for home care.
A/P:
#Bacteremia 2/2 CLABSI
Completed cipro on 10/06/23
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
follows with Dr. Lizabeth Villanueva at [facility] hematology.
Continue Ativan
cont Gleevac, steroids
Levalbuterol as needed
Continue carbidopa levodopa
prednisone continued
Outpatient IV Benadryl drip at 15 mg/hr upon presentation. As discussed with primary front office specialist Dr. Mora plan is to slowly taper.
Multiple conversations with patient almost on a daily basis in regards to goals of care including attempt to wean off Benadryl drip with possibly substitution to oral regimen to facilitate discharge as well as outpatient management. Patient has been
resistant to wean off Benadryl drip completely at this point as per Dr. Kirk
11/26. Multidisciplinary meeting including psychiatry, clinical pharmacy, medicine, nursing.
Patient clinical course along with medication regimen has been reviewed.
With the goal of minimize exposure to IV medications and optimize regimen following changes implemented:
-Daily IV fluids discontinued with plan to monitor oral intake and orthostatics.
-IV Benadryl pushes have been discontinued.
-Lorazepam sublingual as needed order has been discontinued.
-IV lorazepam has been discontinued
Initiated:
Benadryl 25 mg infusion through piggyback will be provided over 10 minutes for breakthrough dystonic attack.
Benadryl p.o. 25 mg will be scheduled every 4 hours.
Lorazepam sublingual 1 mg with the scheduled while awake every 4 hours.
Hydromorphone p.o. 8 mg Q6H PRN will be continued for severe pain along with Suboxone.
12/02.
Multidisciplinary discussion involving nursing, primary service, psychiatry, pharmacy, case management
Plan is to continue current care including intravenous Benadryl drip wean. Schedule below:
Diphenhydramine continuous infusion taper schedule Q72hr
12/18 @1299 � 8 @1259 � 2MG/HR
12/21 @1300 � 8 @1259 � 1MG/HR
12/25 @12/27 @0.5 mg/hr, and plan to further decrease to 0.25 mg/hr starting 12/28
Can consider increasing diphenhydramine PO up to max 300mg/day IF NEEDED. Would recommend increasing if episodes increase.
Current dose is 25 mg Q4H via tube, would increase to 37.5mg Q4H IF NEEDED, completely off the drip 12/29
01/15. Attempted transition Benadryl dose given for dystonic reaction to intramuscular route with bicarb dose via IV piggyback if dystonia lasts over 60 minutes.
01/16. Discussed with family at bedside. Required Ativan 0.5 mg IV x 1. Discussed with attending RN. Continue current management and discharge disposition.
#Dystonia
Cont baclofen and synemet
#Thrush
Completed clotrimasole troches
#GERD
#Chronic pain syndrome withn opioid dependency
#Sinus tachycardia, chronic
#Esophageal dysmotility
#Gastroparesis on PEG
#RLS
#Hx of DVT
#Allergy induced asthma with chronic hypoxic respiratory failure on 2L home O2
#Migraine d/o
Cont home meds
#Fall with uncomplicated 6,7 rib Fx
on 09/22
#DM steroid induced
Accuchecks
Insulin
DM diet
#Iatrogenic immunosuppression
2/2 steroids
reverse isolation
DVT ppx on ELqiuis
Full code
I have spent at least 57min reviewing the chart and providing direct patient care
Disposition: Discussion with primary front office specialist Dr. Ethan Villanueva on 10/09. Discussed possibility of attempting weaning Benadryl drip likely could be done as outpatient. With current family social situation, unfortunately there is no options
for disposition other than home on IV infusion. Possibility of a transfer to [facility] discussed as well, although according to Dr. Villanueva hospital administration declined services due to complexity. Also discussed possibility of
transfer to tertiary center ([facility] declined in the past).
10/[address] Villanueva over the phone as well as [facility] transfer center.
Complex patient. Attempt to wean off Benadryl drip over the last 2 weeks with persistent dystonic episodes.
While patient is relatively stable with her current condition, given complex clinical picture requiring multi disciplinary approach not limited to medicine, hematology, allergology, as well as neuropsychiatric assessment, patient would be better
served at a tertiary facility. Patient was accepted to [facility] for transfer, but hospital administration denied her transfer due to complexity (discussed with patient who is aware)
Anticipated Discharge: 24 - 48 hours
Subjective/Interval History
-
Date of Service: January 17, 2024
Seen and examined today.
Objective Data
-
Vital Signs:
Vital Signs
Temp Pulse Resp BP Pulse Ox
98.2 F 84 13 99/63 97
01/17/24 07:30 01/17/24 04:00 01/17/24 04:00 01/17/24 04:00 01/17/24 00:14
I&O
01/16/24 01/17/24 01/18/24
06:59 06:59 06:59
Intake Total 960 / 960 1040 / 1040
Output Total 2250 / 2250 1610 / 1610
Balance -1290 / -1290 -570 / -570
[2024-01-17] MEDS: MIRALAX 17 GRAMS TUBE (09:31)
[2024-01-17] MEDS: LANTUS 0.1 UNITS SC (09:31)
[2024-01-17] MEDS: LIDOCAINE 4% PATCH 1 PATCH TOPICAL (09:32)
[2024-01-17] MEDS: GASTROCROM 300 MG PO ×4 (09:33→22:04)
[2024-01-17] MEDS: VITAMIN B1 100 MG TUBE (09:37)
[2024-01-17] MEDS: CLARITIN 10 MG TUBE (09:37)
[2024-01-17] MEDS: SUBUTEX 2 MG SL ×4 (09:38→22:06)
[2024-01-17] MEDS: ELIQUIS 5 MG PO ×2 (09:38→20:08)
[2024-01-17] MEDS: INDERAL 10 MG TUBE ×3 (09:38→22:07)
[2024-01-17] MEDS: DELTASONE 10 MG TUBE ×2 (09:38→20:08)
[2024-01-17] MEDS: COLACE 100 MG PO ×2 (09:38→20:08)
[2024-01-17] MEDS: HYDREA 500 MG PO ×2 (09:39→20:09)
[2024-01-17] MEDS: ZADITOR 1 DROP BOTH EYES ×2 (09:39→20:09)
[2024-01-17] MEDS: DESENEX/MITRAZOL/ZEASORB 1 APPLIC TOPICAL ×2 (09:39→20:08)
[2024-01-17] MEDS: PEPCID 40 MG IV ×2 (09:40→20:07)
[2024-01-17] MEDS: NSS (PRESERVATIVE FREE) 6 ML IV ×2 (09:40→20:07)
[2024-01-17] MEDS: ZOFRAN 4 MG IV (09:40)
[2024-01-17] MEDS: NON-FORMULARY ITEM 1 UNIT PO ×2 (09:41→20:12)
[2024-01-17] MEDS: NON-FORMULARY ITEM 80 MG PO (09:41)
[2024-01-17] MEDS: NON-FORMULARY ITEM 1 MG PO ×2 (09:42→20:11)
--- NOTE | 2024-01-17 09:45 | PTCARENOTE ---
Patient received from overnight associate. Patient resting comfortably in bed. AAO, VSS. One event noted overnight and treated with PRN IM Benadryl along with the IV Benadryl. Episode lasted around an hour per overnight associate. Complaints of a headache at
this time, see MAR. Currently on 2L N/C for HS, will take off during the day to Room Air as tolerated. Continuing current plan and awaiting for insurance approvals. Purewick in place. Call sanchez in reach.
[2024-01-17 12:00] VITALS: BP 106/89
[2024-01-17] MEDS: NOVOLOG FLEXPEN 3 UNITS SC ×2 (12:10→17:21)
[2024-01-17 12:16] LABS: Glucose - Point of Care 99 mg/dl (70-99)
[2024-01-17] MEDS: BENADRYL 25 MG IM (13:12)
[2024-01-17] MEDS: NSS (PRESERVATIVE FREE) 0.25 ML IV (14:00)
[2024-01-17] MEDS: ATIVAN 0.5 MG IV (14:00)
[2024-01-17] MEDS: BENADRYL 50.5 MG IV (14:16)
--- NOTE | 2024-01-17 14:58 | PTCARENOTE ---
Patient with dystonic episode while mother and step-father were in the room. PRN IM Benadryl administered as ordered. Ice pack given as per patient request in the past. Hospitalist made aware of current episode and a x1 order for IV 0.5mg Ativan
placed incase this episode persisted. Approximately 45min into episode, IV Ativan given in hopes to have settled before IV Benadryl was to be administered (60min after IM Benadryl per order). Full 60 min passed, IV Benadryl given as ordered at
1416. Patient finally settled just close to 2 hours after episode started. All scheduled PO and TUBE medications held in fear of possible aspiration from vomiting due to severity of episode at this time, will be given when appropriate. Call sanchez
in reach.
[2024-01-17] MEDS: SINEMET 25-100 2 TABLET TUBE ×2 (15:11→17:20)
[2024-01-17] MEDS: NON-FORMULARY ITEM 200 MG PO (15:11)
--- NOTE | 2024-01-17 16:34 | CHAP ---
Mary was napping, after a difficult night. She gave an update on the current state of things. Emotional and spiritual support provided, along with the assurance of our on-going availability.
[2024-01-17 17:14] VITALS: BP 104/75
[2024-01-17] MEDS: ZYRTEC 10 MG TUBE ×2 (17:20→22:07)
[2024-01-17 17:26] LABS: Glucose - Point of Care 131 mg/dl (70-99)
[2024-01-17 20:00] VITALS: BP 115/79
[2024-01-17 21:20] LABS: Glucose - Point of Care 163 mg/dl (70-99)
[2024-01-17] MEDS: FEOSOL 325 MG PO (22:07)
[2024-01-18] VITALS: BP 131/102
--- NOTE | 2024-01-18 00:02 | PTCARENOTE ---
Pt rang sanchez to alert nursing to dystonic episode; IM Benadryl administered in left vastus; Dry heaving and coughing noted; PRN IV Zofran administered; Ice packs provided. Tachy on monitor ~ 140's; SpO2 = 97% on 2L O2 via NC. will continue to
monitor and assess.
[2024-01-18] MEDS: ZOFRAN 4 MG IV ×3 (00:07→22:23)
[2024-01-18] MEDS: BENADRYL 25 MG IM ×3 (00:07→22:19)
[2024-01-18] MEDS: BENADRYL 50.5 MG IV ×3 (01:09→23:20)
[2024-01-18] MEDS: BENADRYL SOLUTION 25 MG TUBE ×6 (01:16→22:17)
[2024-01-18 04:00] VITALS: BP 108/73
[2024-01-18] MEDS: SINEMET 25-100 1.5 TABLET TUBE ×2 (05:04→09:39)
[2024-01-18] MEDS: ATIVAN 1 MG SL ×4 (05:04→22:10)
[2024-01-18] MEDS: LIORESAL 10 MG TUBE ×3 (05:04→22:10)
[2024-01-18 08:00] VITALS: BP 106/68
[2024-01-18] MEDS: DUONEB 3 ML INH ×2 (08:10→13:44)
[2024-01-18] MEDS: PULMICORT 0.5 MG INH ×2 (08:10→19:32)
[2024-01-18 08:29] LABS: Glucose - Point of Care 79 mg/dl (70-99)
[2024-01-18] MEDS: NOVOLOG FLEXPEN-LOW RESISTANCE SC ×3 (08:48→17:40)
[2024-01-18] MEDS: NOVOLOG FLEXPEN SC (08:49)
[2024-01-18] MEDS: GASTROCROM 300 MG PO ×4 (09:36→22:11)
[2024-01-18] MEDS: LIDOCAINE 4% PATCH 1 PATCH TOPICAL (09:38)
[2024-01-18] MEDS: LANTUS 0.1 UNITS SC (09:38)
[2024-01-18] MEDS: MIRALAX 17 GRAMS TUBE (09:38)
[2024-01-18] MEDS: PEPCID 40 MG IV ×2 (09:39→20:13)
[2024-01-18] MEDS: NSS (PRESERVATIVE FREE) 6 ML IV ×2 (09:39→20:12)
[2024-01-18] MEDS: ELIQUIS 5 MG PO ×2 (09:40→20:13)
[2024-01-18] MEDS: COLACE 100 MG PO ×2 (09:41→20:13)
[2024-01-18] MEDS: HYDREA 500 MG PO ×2 (09:41→20:13)
[2024-01-18] MEDS: INDERAL 10 MG TUBE ×3 (09:42→22:10)
[2024-01-18] MEDS: DELTASONE 10 MG TUBE ×2 (09:42→20:13)
[2024-01-18] MEDS: VITAMIN B1 100 MG TUBE (09:42)
[2024-01-18] MEDS: NON-FORMULARY ITEM 80 MG PO (09:43)
[2024-01-18] MEDS: CLARITIN 10 MG TUBE (09:43)
[2024-01-18] MEDS: DESENEX/MITRAZOL/ZEASORB 1 APPLIC TOPICAL ×2 (09:44→20:14)
[2024-01-18] MEDS: NON-FORMULARY ITEM 1 MG PO ×2 (09:45→20:15)
[2024-01-18] MEDS: NON-FORMULARY ITEM 1 UNIT PO ×2 (09:46→20:16)
[2024-01-18] MEDS: ZADITOR 1 DROP BOTH EYES ×2 (09:47→20:17)
--- NOTE | 2024-01-18 10:51 | W.PN.HOSP.TC ---
Today's Communication/Plan
-
Continue current management. Discharge planning in progress.
Assessment / Plan
Assessment / Plan
Physical exam:
General: Chronically ill
HEENT: Normocephalic, Atraumatic and Moist Mucous Membranes
Respiratory: Clear to Auscultation; Negative Wheezes, Rales or Rhonchi
Cardiac: Regular Rhythm and S1/S2
GI: Soft, Nontender and Nondistended
Musculoskeletal: No Clubbing, No Cyanosis and No Edema
Neuro: Awake, Alert and Oriented
Psych: Anxious
A/P:
Conditions prior to admission:
1. Mast cell activation syndrome.
2. Chronic dystonic reaction.
3. Orthostatic hypotension with postural orthostatic and tachycardia syndrome.
4. Dopa sensitive dystonia.
5. Steroid-induced diabetes.
6. Prior history of deep venous thrombosis and pulmonary embolism.
7. Chronic pain syndrome.
8. Migraine headaches.
9. Gastroesophageal reflux disease.
10. Benzodiazepine and opiate dependence.
11. Restless legs syndrome.
12. Insomnia.
13. History of vocal cord dysfunction.
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
15. Gastroparesis.
16. 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
17. 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
33yo F with PMHx of GERD, dystonia, allergic asthma, migraine, chronic hypoxia on 2L O2, steroid induced DM, Esophageal dysmotility on PEG, JUANJOSE, chronic pain syndrome with opioid dependency, mast cell syndrome on benadryl drip and steroids came to
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 Had PICC line replaced and completed cipro as per ID. Due to concern for PEG tube malfunction had
it replaced wice on 09/22 and 11/04. Continued on benadryl drip 2/2 hx of recurrent anaphylaxis 2/2 mast cell activation syndrome and weaned off it. Had multiple multidisciplianry meetings in attempts to minimize IV medication. PO Benadryl is continued
with recommendation to increase to max 300mg/day as needed.
Had fall on 10/03 and found Fx of 6th and 7th ribs without complications.
Attempt to transfer to [facility] (where patient was getting all her care) failed since receiving hospital administration was concerned for too high complexity of the patient
Ongoing disposition attempts per for home care.
A/P:
#Bacteremia 2/2 CLABSI
Completed cipro on 10/06/23
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
follows with Dr. Lizabeth Villanueva at [facility] hematology.
Continue Ativan
cont Gleevac, steroids
Levalbuterol as needed
Continue carbidopa levodopa
prednisone continued
Outpatient IV Benadryl drip at 15 mg/hr upon presentation. As discussed with primary favor maker Dr. Mora plan is to slowly taper.
Multiple conversations with patient almost on a daily basis in regards to goals of care including attempt to wean off Benadryl drip with possibly substitution to oral regimen to facilitate discharge as well as outpatient management. Patient has been
resistant to wean off Benadryl drip completely at this point as per Dr. Kirk
11/26. Multidisciplinary meeting including psychiatry, clinical pharmacy, medicine, nursing.
Patient clinical course along with medication regimen has been reviewed.
With the goal of minimize exposure to IV medications and optimize regimen following changes implemented:
-Daily IV fluids discontinued with plan to monitor oral intake and orthostatics.
-IV Benadryl pushes have been discontinued.
-Lorazepam sublingual as needed order has been discontinued.
-IV lorazepam has been discontinued
Initiated:
Benadryl 25 mg infusion through piggyback will be provided over 10 minutes for breakthrough dystonic attack.
Benadryl p.o. 25 mg will be scheduled every 4 hours.
Lorazepam sublingual 1 mg with the scheduled while awake every 4 hours.
Hydromorphone p.o. 8 mg Q6H PRN will be continued for severe pain along with Suboxone.
12/02.
Multidisciplinary discussion involving nursing, primary service, psychiatry, pharmacy, case management
Plan is to continue current care including intravenous Benadryl drip wean. Schedule below:
Diphenhydramine continuous infusion taper schedule Q72hr
12/18 @1300 � 8/ @1259 � 2MG/HR
12/21 @1300 � 12/24 @1259 � 1MG/HR
12/25 @1299 � 8/ @0.5 mg/hr, and plan to further decrease to 0.25 mg/hr starting 12/28
Can consider increasing diphenhydramine PO up to max 300mg/day IF NEEDED. Would recommend increasing if episodes increase.
Current dose is 25 mg Q4H via tube, would increase to 37.5mg Q4H IF NEEDED, completely off the drip 12/29
01/15. Attempted transition Benadryl dose given for dystonic reaction to intramuscular route with bicarb dose via IV piggyback if dystonia lasts over 60 minutes.
01/16. Discussed with family at bedside. Required Ativan 0.5 mg IV x 1. Discussed with attending RN. Continue current management and discharge disposition.
01/17. Discussed with father at bedside. Patient requests to see if she can go back on the drip but I told her that that is not necessary and we are continue with current management and we are trying to transition her for safe discharge as well.
Discussed with attending RN. Continue current management and discharge disposition.
#Dystonia
Cont baclofen and synemet
#Thrush
Completed clotrimasole troches
#GERD
#Chronic pain syndrome withn opioid dependency
#Sinus tachycardia, chronic
#Esophageal dysmotility
#Gastroparesis on PEG
#RLS
#Hx of DVT
#Allergy induced asthma with chronic hypoxic respiratory failure on 2L home O2
#Migraine d/o
Cont home meds
#Fall with uncomplicated 6,7 rib Fx
on 09/22
#DM steroid induced
Accuchecks
Insulin
DM diet
#Iatrogenic immunosuppression
2/2 steroids
reverse isolation
DVT ppx on ELqiuis
Full code
I have spent at least 57min reviewing the chart and providing direct patient care
Disposition: Discussion with primary favor maker Dr. Ethan Villanueva on 10/09. Discussed possibility of attempting weaning Benadryl drip likely could be done as outpatient. With current family social situation, unfortunately there is no options
for disposition other than home on IV infusion. Possibility of a transfer to [facility] discussed as well, although according to Dr. Villanueva hospital administration declined services due to complexity. Also discussed possibility of
transfer to tertiary center ([facility] declined in the past).
10/[address] Villanueva over the phone as well as [facility] transfer center.
Complex patient. Attempt to wean off Benadryl drip over the last 2 weeks with persistent dystonic episodes.
While patient is relatively stable with her current condition, given complex clinical picture requiring multi disciplinary approach not limited to medicine, hematology, allergology, as well as neuropsychiatric assessment, patient would be better
served at a tertiary facility. Patient was accepted to [facility] for transfer, but hospital administration denied her transfer due to complexity (discussed with patient who is aware)
Anticipated Discharge: 24 - 48 hours
Subjective/Interval History
-
Date of Service: January 18, 2024
No chest pain or worsening shortness of breath. Patient very emotional on her request for some changes but ultimately accepting our recommendations.
Objective Data
-
Vital Signs:
Vital Signs
Temp Pulse Resp BP Pulse Ox
98.8 F 113 21 106/68 96
01/18/24 07:56 01/18/24 10:00 01/18/24 10:00 01/18/24 09:42 01/18/24 10:42
I&O
01/17/24 01/18/24 01/19/24
06:59 06:59 06:59
Intake Total 1040 / 1040 960 / 960
Output Total 1610 / 1610 2099 / 2099
Balance -570 / -570 -1140 / -1140
[2024-01-18] MEDS: SUBUTEX 2 MG SL ×4 (11:21→22:10)
[2024-01-18 12:00] VITALS: BP 113/96
[2024-01-18 12:08] LABS: Glucose - Point of Care 102 mg/dl (70-99)
[2024-01-18] MEDS: NOVOLOG FLEXPEN 3 UNITS SC ×2 (12:30→17:41)
--- NOTE | 2024-01-18 13:01 | CM ---
CM reviewed patient's chart. Spoke with patient at bedside. CM introduced self and role. Patient's father also at bedside.
PCP: Dr. Sabine Jamil (at [facility]). Very recently accepted to [facility]
Pharmacy: [facility] in [place]
Living situation: Patient used to live with mom and stepdad until something happened (she was receiving 24 hour care there). She has recently found an apt and hoping she care 24 hour home health care there.
Finances: Patient denies any social insecurities. She is able to afford her housing, clothing, medications, food, utilities and transportation. She is on disability.
DME: Patient owns a hospital bed, CPAP and 02 concentrator from [employer]. She receives feeding tube supplies from [facility].
Transportation: Patient will most likely need transportation set up once she is discharged. Patient does not drive.
Agreeable to home health care?: Yes, donavon with [facility]. She's has set up 2 RNs from [facility], coming to her 5 days/week with the [facility] agency, [facility]. Patient's CM, Fide, from ([address]) is hoping to coordinate some RN and aide
support from a home health agency that is closer to patient's home.
[facility]'s general number: [phone]
Swati (Home Health Coordinator with [facility]): [phone]
Patient also receives infusions (most IV benadryl gtt) from [facility].
ANTICIPATED DISCHARGE DISPOSITION:
TranspHer dad was at bedside. Used to live with mom and stepdad until something happened (had 24 hour care there). She's having RNs from [facility] coming to her 5 days/week with the [facility] with several hours of
home health care. Resume services with [facility], [facility] and [facility].
CM will continue to follow case and available for further assistance.
[2024-01-18] MEDS: SINEMET 25-100 2 TABLET TUBE ×2 (13:52→17:42)
[2024-01-18] MEDS: NON-FORMULARY ITEM 200 MG PO (16:14)
[2024-01-18 16:20] VITALS: BP 113/79
--- NOTE | 2024-01-18 16:31 | PTCARENOTE ---
Patient had dystonic episode starting approx 1330, lasted until approx 1515. Pt given IM Benadryl, followed by IV Benadryl per orders, see MAR. Pt also given PRN breathing treatment by RT. During episode, pt's HR into 140s and maintained pulse ox
but did have some dry heaving and medicated with Zofran, see MAR. Pt also very diaphoretic during episode, requiring full linen change and bed bath after pt's episode resolved. Assessment, care and VS as charted.
[2024-01-18 17:16] LABS: Glucose - Point of Care 140 mg/dl (70-99)
[2024-01-18] MEDS: ZYRTEC 10 MG TUBE ×2 (17:42→22:10)
[2024-01-18 20:00] VITALS: BP 110/79
[2024-01-18 21:23] LABS: Glucose - Point of Care 139 mg/dl (70-99)
--- NOTE | 2024-01-18 22:10 | PTCARENOTE ---
Dystonic event @ 2210 lasting approx 93 minutes; Benadryl IM administered in L vastus at start of event and Benadryl IV piggyback given 60 minutes after as per physician order. Zofran given for nausea during event as well. Vitals remained stable
throughout with HR 120-140's. Will continue to monitor and assess.
[2024-01-18] MEDS: FEOSOL 325 MG PO (22:11)
[2024-01-19] VITALS (8 sets, daily range): BP systolic 99–138; BP diastolic 65–87
[2024-01-19] MEDS: BENADRYL SOLUTION 25 MG TUBE ×6 (02:33→21:08)
[2024-01-19] MEDS: ATIVAN 1 MG SL ×4 (05:02→21:06)
[2024-01-19] MEDS: LIORESAL 10 MG TUBE ×3 (05:02→21:07)
[2024-01-19] MEDS: SINEMET 25-100 1.5 TABLET TUBE ×2 (05:02→09:52)
[2024-01-19] MEDS: BENADRYL 25 MG IM ×2 (05:05→14:38)
[2024-01-19] MEDS: BENADRYL 50.5 MG IV ×2 (06:05→15:21)
[2024-01-19] MEDS: ZOFRAN 4 MG IV ×3 (06:05→21:04)
--- NOTE | 2024-01-19 07:28 | W.PN.HOSP.TC ---
Today's Communication/Plan
-
see bold
Assessment / Plan
Assessment / Plan
Gen: NAD, Awake and alert, appears chronically ill with cushingoid appearance
Eyes: EOMI, PERRLA, no scleral icterus.
Neck: supple.
CV: RRR, +S1/S2, no m/r/g.
Resp: CTAB, no rales, wheezes, or rhonchi.
Abd: +BS, soft, NT, ND
Skin: No rashes.
Neuro: CN 2-12 intact, non-focal.
Psych: Normal mood and affect.
A/P:
Conditions prior to admission:
1. Mast cell activation syndrome.
2. Chronic dystonic reaction.
3. Orthostatic hypotension with postural orthostatic and tachycardia syndrome.
4. Dopa sensitive dystonia.
5. Steroid-induced diabetes.
6. Prior history of deep venous thrombosis and pulmonary embolism.
7. Chronic pain syndrome.
8. Migraine headaches.
9. Gastroesophageal reflux disease.
10. Benzodiazepine and opiate dependence.
11. Restless legs syndrome.
12. Insomnia.
13. History of vocal cord dysfunction.
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
15. Gastroparesis.
16. 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
17. 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
33yo F with PMHx of GERD, dystonia, allergic asthma, migraine, chronic hypoxia on 2L O2, steroid induced DM, Esophageal dysmotility on PEG, JUANJOSE, chronic pain syndrome with opioid dependency, mast cell syndrome on benadryl drip and steroids came to
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 Had PICC line replaced and completed cipro as per ID. Due to concern for PEG tube malfunction had
it replaced wice on 09/22 and 11/04. Continued on benadryl drip 2/2 hx of recurrent anaphylaxis 2/2 mast cell activation syndrome and weaned off it. Had multiple multidisciplianry meetings in attempts to minimize IV medication. PO Benadryl is continued
with recommendation to increase to max 300mg/day as needed.
Had fall on 10/03 and found Fx of 6th and 7th ribs without complications.
Attempt to transfer to [facility] (where patient was getting all her care) failed since receiving hospital administration was concerned for too high complexity of the patient
Ongoing disposition attempts per for home care.
A/P:
#Bacteremia 2/2 CLABSI
Completed cipro on 10/06/23
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
follows with Dr. Lizabeth Villanueva at [facility] hematology.
Continue Ativan
cont Gleevac, steroids
Levalbuterol as needed
Continue carbidopa levodopa
prednisone continued
Outpatient IV Benadryl drip at 15 mg/hr upon presentation. As discussed with primary train operations manager Dr. Mora plan is to slowly taper.
Multiple conversations with patient almost on a daily basis in regards to goals of care including attempt to wean off Benadryl drip with possibly substitution to oral regimen to facilitate discharge as well as outpatient management. Patient has been
resistant to wean off Benadryl drip completely at this point as per Dr. Kirk
11/26. Multidisciplinary meeting including psychiatry, clinical pharmacy, medicine, nursing.
Patient clinical course along with medication regimen has been reviewed.
With the goal of minimize exposure to IV medications and optimize regimen following changes implemented:
-Daily IV fluids discontinued with plan to monitor oral intake and orthostatics.
-IV Benadryl pushes have been discontinued.
-Lorazepam sublingual as needed order has been discontinued.
-IV lorazepam has been discontinued
Initiated:
Benadryl 25 mg infusion through piggyback will be provided over 10 minutes for breakthrough dystonic attack.
Benadryl p.o. 25 mg will be scheduled every 4 hours.
Lorazepam sublingual 1 mg with the scheduled while awake every 4 hours.
Hydromorphone p.o. 8 mg Q6H PRN will be continued for severe pain along with Suboxone.
12/02.
Multidisciplinary discussion involving nursing, primary service, psychiatry, pharmacy, case management
Plan is to continue current care including intravenous Benadryl drip wean. Schedule below:
Diphenhydramine continuous infusion taper schedule Q72hr
12/18 @1299 � 8 @1259 � 2MG/HR
12/21 @1300 � 12/24 @1259 � 1MG/HR
12/25 @12/27 @0.5 mg/hr, and plan to further decrease to 0.25 mg/hr starting 12/28
Can consider increasing diphenhydramine PO up to max 300mg/day IF NEEDED. Would recommend increasing if episodes increase.
Current dose is 25 mg Q4H via tube, would increase to 37.5mg Q4H IF NEEDED, completely off the drip 12/29
01/15. Attempted transition Benadryl dose given for dystonic reaction to intramuscular route with bicarb dose via IV piggyback if dystonia lasts over 60 minutes.
01/16. Discussed with family at bedside. Required Ativan 0.5 mg IV x 1. Discussed with attending RN. Continue current management and discharge disposition.
01/17. Discussed with father at bedside. Patient requests to see if she can go back on the drip but Dr. Murray told her that that is not necessary and we are continue with current management and we are trying to transition her for safe discharge as
well. Continue current management and discharge disposition.
#Dystonia
Cont baclofen and synemet
#Thrush
Completed clotrimasole troches
#GERD
#Chronic pain syndrome withn opioid dependency
#Sinus tachycardia, chronic
#Esophageal dysmotility
#Gastroparesis on PEG
#RLS
#Hx of DVT
#Allergy induced asthma with chronic hypoxic respiratory failure on 2L home O2
#Migraine d/o
Cont home meds
#Fall with uncomplicated 6,7 rib Fx
on 09/22
#DM steroid induced
Accuchecks
Insulin
DM diet
#Iatrogenic immunosuppression
2/2 steroids
reverse isolation
FULL/Eliquis
Disposition: Discussion with primary train operations manager Dr. Ethan Villanueva on 10/09. Discussed possibility of attempting weaning Benadryl drip likely could be done as outpatient. With current family social situation, unfortunately there is no options
for disposition other than home on IV infusion. Possibility of a transfer to [facility] discussed as well, although according to Dr. Villanueva hospital administration declined services due to complexity. Also discussed possibility of
transfer to tertiary center ([facility] declined in the past).
10/[address] Villanueva over the phone as well as [facility] transfer center.
Complex patient. Attempt to wean off Benadryl drip over the last 2 weeks with persistent dystonic episodes.
While patient is relatively stable with her current condition, given complex clinical picture requiring multi disciplinary approach not limited to medicine, hematology, allergology, as well as neuropsychiatric assessment, patient would be better
served at a tertiary facility. Patient was accepted to [facility] for transfer, but hospital administration denied her transfer due to complexity (discussed with patient who is aware).
Anticipated Discharge: > 48 hours
Subjective/Interval History
-
Date of Service: January 19, 2024
Pt c/o poor sleep O/N. Also states current Benadryl regimen is not controlling her 'attacks.'
Objective Data
-
Vital Signs:
Vital Signs
Temp Pulse Resp BP Pulse Ox
98.2 F 85 16 103/65 97
01/19/24 03:35 01/19/24 04:00 01/19/24 04:00 01/19/24 04:00 01/19/24 04:00
I&O
01/18/24 01/19/24 01/20/24
06:59 06:59 06:59
Intake Total 960 / 960 2109
Output Total 2099
Balance -1140 / -1140 -40 / -40
[2024-01-19] MEDS: PULMICORT 0.5 MG INH ×2 (07:43→19:41)
[2024-01-19 08:25] LABS: Glucose - Point of Care 60 mg/dl (70-99)
[2024-01-19] MEDS: NOVOLOG FLEXPEN-LOW RESISTANCE SC ×3 (08:35→17:20)
[2024-01-19] MEDS: NOVOLOG FLEXPEN SC (08:35)
[2024-01-19 08:54] LABS: Glucose - Point of Care 80 mg/dl (70-99)
[2024-01-19] MEDS: GASTROCROM 300 MG PO ×4 (09:47→21:08)
[2024-01-19] MEDS: LIDOCAINE 4% PATCH 1 PATCH TOPICAL (09:47)
[2024-01-19] MEDS: MIRALAX 17 GRAMS TUBE (09:47)
[2024-01-19] MEDS: PEPCID 40 MG IV ×2 (09:48→21:12)
[2024-01-19] MEDS: NSS (PRESERVATIVE FREE) 6 ML IV ×2 (09:48→21:12)
[2024-01-19] MEDS: HYDREA 500 MG PO ×2 (09:50→21:02)
[2024-01-19] MEDS: LANTUS SC ×2 (09:50→10:14)
[2024-01-19] MEDS: SUBUTEX 2 MG SL ×4 (09:51→21:06)
[2024-01-19] MEDS: CLARITIN 10 MG TUBE (09:52)
[2024-01-19] MEDS: DELTASONE 10 MG TUBE ×2 (09:52→21:01)
[2024-01-19] MEDS: ELIQUIS 5 MG PO ×2 (09:53→21:02)
[2024-01-19] MEDS: VITAMIN B1 100 MG TUBE (09:53)
[2024-01-19] MEDS: COLACE 100 MG PO ×2 (09:54→21:01)
[2024-01-19] MEDS: DESENEX/MITRAZOL/ZEASORB 1 APPLIC TOPICAL ×2 (09:54→21:17)
[2024-01-19] MEDS: ZADITOR 1 DROP BOTH EYES ×2 (09:55→21:18)
[2024-01-19] MEDS: NON-FORMULARY ITEM 80 MG PO (09:56)
[2024-01-19] MEDS: NON-FORMULARY ITEM 1 MG PO ×2 (09:56→21:17)
[2024-01-19] MEDS: NON-FORMULARY ITEM 1 UNIT PO ×2 (09:57→21:16)
[2024-01-19] MEDS: INDERAL 10 MG TUBE ×3 (10:02→21:07)
[2024-01-19 11:30] LABS: Glucose - Point of Care 95 mg/dl (70-99)
[2024-01-19] MEDS: SINEMET 25-100 2 TABLET TUBE ×2 (13:37→17:19)
[2024-01-19] MEDS: NOVOLOG FLEXPEN 3 UNITS SC ×2 (13:38→17:18)
[2024-01-19] MEDS: NON-FORMULARY ITEM 200 MG PO (13:39)
[2024-01-19 13:47] LABS: Glucose - Point of Care 110 mg/dl (70-99)
[2024-01-19] MEDS: DUONEB 3 ML INH ×2 (14:45→19:44)
[2024-01-19 17:14] LABS: Glucose - Point of Care 105 mg/dl (70-99)
[2024-01-19] MEDS: ZYRTEC 10 MG TUBE ×2 (17:20→21:07)
--- NOTE | 2024-01-19 18:15 | PTCARENOTE ---
Patient had an episode approx from 13:20-15:10. All medications given per orders and as able, as well as ice packs and turned on the fan. Pt's step-mother was in the room during episode and commented 'this is torture.' Pt provided with cleansing
amenities following episode. Pt did have full linen change and washed up this afternoon. Pt had no other complaints during the day. Assessment, care and VS as charted.
[2024-01-19] MEDS: FEOSOL 325 MG PO (21:07)
[2024-01-19 22:08] LABS: Glucose - Point of Care 122 mg/dl (70-99)
--- NOTE | 2024-01-19 23:02 | PTCARENOTE ---
Caring for patient overnight. aaox3, no assessment changes from previous shift. In beginning of shift HR was elevated after getting off bedpan & pt felt nauseous. Zofran given & routine nighttime meds given & patient was able to settle down. Pt
cleaned up in bed. NR on monitor. RA. Duong. Denies Pain. Medsitter. Call sanchez in reach. Will monitor.
[2024-01-20] VITALS (8 sets, daily range): BP systolic 90–131; BP diastolic 66–86
[2024-01-20] MEDS: BENADRYL SOLUTION 25 MG TUBE ×6 (02:47→21:31)
[2024-01-20] MEDS: ATIVAN 1 MG SL ×4 (04:54→21:31)
[2024-01-20] MEDS: SINEMET 25-100 1.5 TABLET TUBE ×2 (04:55→08:55)
[2024-01-20] MEDS: LIORESAL 10 MG TUBE ×3 (04:55→21:31)
[2024-01-20] MEDS: PULMICORT 0.5 MG INH ×2 (07:34→19:29)
[2024-01-20] MEDS: MIRALAX 17 GRAMS TUBE (08:48)
[2024-01-20] MEDS: GASTROCROM 300 MG PO ×4 (08:48→21:30)
[2024-01-20] MEDS: LIDOCAINE 4% PATCH 1 PATCH TOPICAL (08:48)
[2024-01-20] MEDS: HYDREA 500 MG PO ×2 (08:50→19:47)
[2024-01-20] MEDS: ELIQUIS 5 MG PO ×2 (08:51→19:48)
[2024-01-20] MEDS: INDERAL 10 MG TUBE ×3 (08:51→21:31)
[2024-01-20] MEDS: SUBUTEX 2 MG SL ×4 (08:52→21:31)
[2024-01-20] MEDS: ZADITOR 1 DROP BOTH EYES ×2 (08:52→19:48)
[2024-01-20] MEDS: VITAMIN B1 100 MG TUBE (08:52)
[2024-01-20 08:53] LABS: Glucose - Point of Care 86 mg/dl (70-99)
[2024-01-20] MEDS: DELTASONE 10 MG TUBE ×2 (08:53→19:48)
[2024-01-20] MEDS: COLACE PO ×2 (08:53→19:50)
[2024-01-20] MEDS: CLARITIN 10 MG TUBE (08:54)
[2024-01-20] MEDS: ZOFRAN 4 MG IV ×2 (08:56→16:30)
[2024-01-20] MEDS: NOVOLOG FLEXPEN-LOW RESISTANCE SC ×2 (09:00→17:50)
[2024-01-20] MEDS: NON-FORMULARY ITEM 80 MG PO (09:00)
[2024-01-20] MEDS: DESENEX/MITRAZOL/ZEASORB 1 APPLIC TOPICAL ×2 (09:01→19:48)
[2024-01-20] MEDS: NON-FORMULARY ITEM 1 MG PO ×2 (09:02→19:49)
[2024-01-20] MEDS: NON-FORMULARY ITEM 1 UNIT PO ×2 (09:03→19:49)
[2024-01-20] MEDS: PEPCID 40 MG IV ×2 (09:04→19:47)
[2024-01-20] MEDS: NSS (PRESERVATIVE FREE) 6 ML IV ×2 (09:04→19:47)
[2024-01-20] MEDS: LANTUS 0.1 UNITS SC (09:13)
[2024-01-20] MEDS: BENADRYL 25 MG IM ×2 (09:32→16:48)
[2024-01-20] MEDS: DUONEB 3 ML INH ×3 (09:42→19:26)
[2024-01-20] MEDS: NOVOLOG FLEXPEN SC ×2 (10:29→17:50)
[2024-01-20] MEDS: BENADRYL 50.5 MG IV ×2 (10:31→17:45)
--- NOTE | 2024-01-20 10:45 | PTCARENOTE ---
Patient is 1 hour and 15 minutes into a dystonia episode, notified Dr. Kirk and IV Benedryl administered in addition to IM dose.
--- NOTE | 2024-01-20 10:47 | W.PN.HOSP.TC ---
Today's Communication/Plan
-
Remains off Benadryl dose with IV/PO Benadryl ordered for breakthroughs dystomia
Reduce Long acting Insulin and continue AccuCheck
Discharge planning
Assessment / Plan
Assessment / Plan
Conditions prior to admission:
1. Mast cell activation syndrome.
2. Chronic dystonic reaction.
3. Orthostatic hypotension with postural orthostatic and tachycardia syndrome.
4. Dopa sensitive dystonia.
5. Steroid-induced diabetes.
6. Prior history of deep venous thrombosis and pulmonary embolism.
7. Chronic pain syndrome.
8. Migraine headaches.
9. Gastroesophageal reflux disease.
10. Benzodiazepine and opiate dependence.
11. Restless legs syndrome.
12. Insomnia.
13. History of vocal cord dysfunction.
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
15. Gastroparesis.
16. 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
17. 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
33yo F with PMHx of GERD, dystonia, allergic asthma, migraine, chronic hypoxia on 2L O2, steroid induced DM, Esophageal dysmotility on PEG, JUANJOSE, chronic pain syndrome with opioid dependency, mast cell syndrome on benadryl drip and steroids came to
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 Had PICC line replaced and completed cipro as per ID. Due to concern for PEG tube malfunction had
it replaced wice on 09/22 and 11/04. Continued on benadryl drip 2/2 hx of recurrent anaphylaxis 2/2 mast cell activation syndrome and weaned off it. Had multiple multidisciplianry meetings in attempts to minimize IV medication. PO Benadryl is continued
with recommendation to increase to max 300mg/day as needed.
Had fall on 10/03 and found Fx of 6th and 7th ribs without complications.
Attempt to transfer to [facility] (where patient was getting all her care) failed since receiving hospital administration was concerned for too high complexity of the patient
Ongoing disposition attempts per CM for home care.
A/P:
#Bacteremia 2/2 CLABSI
Completed cipro on 10/06/23
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
follows with Dr. Lizabeth Villanueva at [facility] hematology.
Continue Ativan
cont Gleevac, steroids
Levalbuterol as needed
Continue carbidopa levodopa
prednisone continued
Outpatient IV Benadryl drip at 15 mg/hr upon presentation. As discussed with primary case making machine operator Dr. Mora plan is to slowly taper.
Multiple conversations with patient almost on a daily basis in regards to goals of care including attempt to wean off Benadryl drip with possibly substitution to oral regimen to facilitate discharge as well as outpatient management. Patient has been
resistant to wean off Benadryl drip completely at this point as per Dr. Kirk
11/26. Multidisciplinary meeting including psychiatry, clinical pharmacy, medicine, nursing.
Patient clinical course along with medication regimen has been reviewed.
With the goal of minimize exposure to IV medications and optimize regimen following changes implemented:
-Daily IV fluids discontinued with plan to monitor oral intake and orthostatics.
-IV Benadryl pushes have been discontinued.
-Lorazepam sublingual as needed order has been discontinued.
-IV lorazepam has been discontinued
Initiated:
Benadryl 25 mg infusion through piggyback will be provided over 10 minutes for breakthrough dystonic attack.
Benadryl p.o. 25 mg will be scheduled every 4 hours.
Lorazepam sublingual 1 mg with the scheduled while awake every 4 hours.
Hydromorphone p.o. 8 mg Q6H PRN will be continued for severe pain along with Suboxone.
12/02.
Multidisciplinary discussion involving nursing, primary service, psychiatry, pharmacy, case management
Plan is to continue current care including intravenous Benadryl drip wean. Schedule below:
Diphenhydramine continuous infusion taper schedule Q72hr
12/18 @12/21 @1259 � 2MG/HR
12/21 @12/24 @1259 � 1MG/HR
12/25 @12/27 @0.5 mg/hr, and plan to further decrease to 0.25 mg/hr starting 12/28
Can consider increasing diphenhydramine PO up to max 300mg/day IF NEEDED. Would recommend increasing if episodes increase.
Current dose is 25 mg Q4H via tube, would increase to 37.5mg Q4H IF NEEDED, completely off the drip 12/29
01/15. Attempted transition Benadryl dose given for dystonic reaction to intramuscular route with bicarb dose via IV piggyback if dystonia lasts over 60 minutes.
01/16. Discussed with family at bedside. Required Ativan 0.5 mg IV x 1. Discussed with attending RN. Continue current management and discharge disposition.
01/17. Discussed with father at bedside. Patient requests to see if she can go back on the drip but Dr. Murray told her that that is not necessary and we are continue with current management and we are trying to transition her for safe discharge as
well. Continue current management and discharge disposition.
#Dystonia
Cont baclofen and synemet
#Thrush
Completed clotrimasole troches
#GERD
#Chronic pain syndrome withn opioid dependency
#Sinus tachycardia, chronic
#Esophageal dysmotility
#Gastroparesis on PEG
#RLS
#Hx of DVT
#Allergy induced asthma with chronic hypoxic respiratory failure on 2L home O2
#Migraine d/o
Cont home meds
#Fall with uncomplicated 6,7 rib Fx
on 09/22
#DM steroid induced
Accuchecks
Insulin
DM diet
#Iatrogenic immunosuppression
2/2 steroids
reverse isolation
FULL/Eliquis
Disposition: Discussion with primary case making machine operator Dr. Ethan Villanueva on 10/09. Discussed possibility of attempting weaning Benadryl drip likely could be done as outpatient. With current family social situation, unfortunately there is no options
for disposition other than home on IV infusion. Possibility of a transfer to [facility] discussed as well, although according to Dr. Villanueva hospital administration declined services due to complexity. Also discussed possibility of
transfer to tertiary center ([facility] declined in the past).
10/[address] Villanueva over the phone as well as [facility] transfer center.
Complex patient. Attempt to wean off Benadryl drip over the last 2 weeks with persistent dystonic episodes.
While patient is relatively stable with her current condition, given complex clinical picture requiring multi disciplinary approach not limited to medicine, hematology, allergology, as well as neuropsychiatric assessment, patient would be better
served at a tertiary facility. Patient was accepted to [facility] for transfer, but hospital administration denied her transfer due to complexity (discussed with patient who is aware).
Anticipated Discharge: > 48 hours
Subjective/Interval History
-
Date of Service: January 20, 2024
Objective Data
-
Vital Signs:
Vital Signs
Temp Pulse Resp BP Pulse Ox
97.7 F 137 20 109/85 94
01/20/24 08:22 01/20/24 09:43 01/20/24 09:43 01/20/24 08:51 01/20/24 09:43
I&O
01/19/24 01/20/24 01/21/24
06:59 06:59 06:59
Intake Total 0 / 0 1650 / 1650 120 / 120
Output Total 0 / 2150 450 / 450 900 / 900
Balance -40 / -40 1200 / 1200 -780 / -780
Physical Exam
-
General: No Apparent Distress
HEENT: Normocephalic
Respiratory: Clear to Auscultation
Neuro: Awake, Alert, Oriented and AO x 3
Psych: Calm
[2024-01-20 12:17] LABS: Glucose - Point of Care 98 mg/dl (70-99)
[2024-01-20] MEDS: NOVOLOG FLEXPEN-LOW RESISTANCE 300 UNITS SC (12:27)
[2024-01-20] MEDS: NOVOLOG FLEXPEN 3 UNITS SC (12:28)
[2024-01-20] MEDS: SINEMET 25-100 2 TABLET TUBE ×2 (15:19→16:52)
[2024-01-20] MEDS: NON-FORMULARY ITEM 200 MG PO (15:20)
[2024-01-20] MEDS: ZYRTEC 10 MG TUBE ×2 (16:52→21:31)
--- NOTE | 2024-01-20 17:15 | PTCARENOTE ---
Patient is having a second dystonia episode this shift. IM Beneadryl and neb treatment administered.
[2024-01-20 18:01] LABS: Glucose - Point of Care 74 mg/dl (70-99)
[2024-01-20] MEDS: FEOSOL 325 MG PO (21:31)
[2024-01-20 22:49] LABS: Glucose - Point of Care 152 mg/dl (70-99)
[2024-01-21] VITALS (10 sets, daily range): BP systolic 90–116; BP diastolic 63–79; PULSE 112; O2SAT 99
[2024-01-21] MEDS: TYLENOL 650 MG PO ×3 (00:20→21:54)
[2024-01-21] MEDS: ZOFRAN 4 MG IV ×4 (00:20→23:25)
[2024-01-21] MEDS: BENADRYL SOLUTION 25 MG TUBE ×6 (02:56→22:00)
[2024-01-21] MEDS: BENADRYL 25 MG IM ×4 (02:56→23:23)
[2024-01-21] MEDS: ATIVAN 1 MG SL ×4 (03:01→21:52)
--- NOTE | 2024-01-21 03:07 | PTCARENOTE ---
Pt with a dystonic attack, scheduled Ativan and Benadryl given (see MAR). PRN Benadryl IM given (see MAR).
[2024-01-21] MEDS: BENADRYL 50.5 MG IV ×3 (04:08→18:17)
[2024-01-21] MEDS: SINEMET 25-100 1.5 TABLET TUBE ×2 (05:29→09:34)
[2024-01-21] MEDS: LIORESAL 10 MG TUBE ×3 (05:29→21:55)
[2024-01-21] MEDS: DUONEB 3 ML INH ×2 (07:23→19:33)
[2024-01-21] MEDS: PULMICORT 0.5 MG INH ×2 (07:23→19:33)
[2024-01-21 08:23] LABS: Glucose - Point of Care 81 mg/dl (70-99)
[2024-01-21] MEDS: NSS (PRESERVATIVE FREE) 6 ML IV ×2 (09:28→21:49)
[2024-01-21] MEDS: PEPCID 40 MG IV ×2 (09:29→21:50)
[2024-01-21] MEDS: LIDOCAINE 4% PATCH 1 PATCH TOPICAL (09:29)
[2024-01-21] MEDS: GASTROCROM 300 MG PO ×4 (09:31→21:48)
--- NOTE | 2024-01-21 09:32 | WOUNDNOTE ---
R LATERAL BREAST SKIN FOLD
[2024-01-21] MEDS: ELIQUIS 5 MG PO ×2 (09:33→21:55)
[2024-01-21] MEDS: SUBUTEX 2 MG SL ×4 (09:33→21:52)
[2024-01-21] MEDS: VITAMIN B1 100 MG TUBE (09:33)
[2024-01-21] MEDS: COLACE 100 MG PO ×2 (09:33→21:54)
[2024-01-21] MEDS: HYDREA 500 MG PO ×2 (09:33→21:52)
[2024-01-21] MEDS: LANTUS 0.05 UNITS SC (09:33)
[2024-01-21] MEDS: CLARITIN 10 MG TUBE (09:33)
[2024-01-21] MEDS: DELTASONE 10 MG TUBE ×2 (09:34→21:54)
[2024-01-21] MEDS: INDERAL 10 MG TUBE ×3 (09:34→21:52)
--- NOTE | 2024-01-21 09:34 | WOUNDNOTE ---
JESUS RN NOTE: Asked to see patient for linear partial thickness ulcers due to MASD under R lateral breast. Patient states she has been using fungal powder but no longer working to heal ulcers. Patient confirmed she is not allergic to silver alginate,
states she used that around feeding tube in past and it healed skin. Cleaned skin with saline, cut to fit pieces of silver alginate applied, can use fungal powder surrounding wound as needed. Patient turned self to side, sacrum and buttocks intact.
L great ingrown toe nail remains healed, no longer red. Updated nurse Melecio who was at bedside, will update orders, care plan and follow as needed.
[2024-01-21] MEDS: ZADITOR 1 DROP BOTH EYES ×2 (09:35→21:59)
[2024-01-21] MEDS: MIRALAX 17 GRAMS TUBE (09:35)
[2024-01-21] MEDS: DESENEX/MITRAZOL/ZEASORB 1 APPLIC TOPICAL ×2 (09:36→21:58)
[2024-01-21] MEDS: NOVOLOG FLEXPEN-LOW RESISTANCE SC ×3 (09:36→18:46)
[2024-01-21] MEDS: NOVOLOG FLEXPEN SC ×3 (09:36→18:46)
[2024-01-21] MEDS: NON-FORMULARY ITEM 1 UNIT PO ×2 (09:38→21:58)
[2024-01-21] MEDS: NON-FORMULARY ITEM 1 MG PO ×2 (09:38→21:58)
[2024-01-21] MEDS: NON-FORMULARY ITEM PO (09:39)
--- NOTE | 2024-01-21 09:45 | PTCARENOTE ---
Patient received from restaurant shift leader. Patient resting comfortably in bed. AAO, VSS. One event noted overnight and treated with PRN IM Benadryl along with the IV Benadryl. Episode lasted again just over an hour per restaurant shift leader. Complaints of a
headache and joint pain at this time, see JUL. Currently on 2L N/C for HS, will take off during the day to Room Air as tolerated. Continuing current plan and awaiting for insurance approvals. Purewick in place. Call sanchez in reach.
[2024-01-21] MEDS: SINEMET 25-100 2 TABLET TUBE ×2 (13:33→17:07)
[2024-01-21] MEDS: NON-FORMULARY ITEM 200 MG PO (13:34)
[2024-01-21 13:43] LABS: Glucose - Point of Care 99 mg/dl (70-99)
--- NOTE | 2024-01-21 14:43 | VATNOTE ---
Called by PCN to redress PICC dressing after pt became sweaty and dressing integrity was in question. Redressed. + blood return from all 3 lumens.
--- NOTE | 2024-01-21 15:41 | CM ---
Late Entry for 01/20/24:
Patient with Dx Mast Cell Activation Syndrome, dystonia/movement disorder. PICC in place. Seen by wound care nurse.
Spoke with Leni Avalos Service Coordination Sales Merchandise Associate ([place] [phone]); obtained corrected phone # for [employer] who is working on finding RN for shift care.
Spoke with Dr Pedro, [facility] (ph [phone]); she has arranged a Meet and Greet with their RN and the patient for noon Th01/21.
Plan follow up with Leni re; skilled & non-skilled caregiver arrangements.
Plan follow up with [facility] once d/c date known.
--- NOTE | 2024-01-21 15:54 | CM ---
Patient with Dx Mast Cell Activation Syndrome, dystonia/movement disorder. PICC in place. Receiving Benadryl IV prn. Seen by wound care nurse. PT 01/20; requires supervision for transfers/ambulation, recommends HH.
Spoke with Leni Avalos Service Coordination Group Director Experience ([place] [phone]) yesterday and obtained corrected phone # for [employer] who is working on finding RN for shift care.
Spoke with Dr Pedro, [facility] (ph [phone]) today; she has arranged a Meet and Greet with their RN and the patient for noon on 01/21.
Plan follow up with Leni re; skilled & non-skilled caregiver arrangements.
Plan follow up with [facility] once d/c date known.
--- NOTE | 2024-01-21 16:50 | W.PN.HOSP.TC ---
Today's Communication/Plan
-
Observed daily dystonic episodes improved within an hour or so with addition of Benadryl dosing.
Ongoing disposition efforts.
Assessment / Plan
Assessment / Plan
Conditions prior to admission:
1. Mast cell activation syndrome.
2. Chronic dystonic reaction.
3. Orthostatic hypotension with postural orthostatic and tachycardia syndrome.
4. Dopa sensitive dystonia.
5. Steroid-induced diabetes.
6. Prior history of deep venous thrombosis and pulmonary embolism.
7. Chronic pain syndrome.
8. Migraine headaches.
9. Gastroesophageal reflux disease.
10. Benzodiazepine and opiate dependence.
11. Restless legs syndrome.
12. Insomnia.
13. History of vocal cord dysfunction.
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
15. Gastroparesis.
16. 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
17. 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
33yo F with PMHx of GERD, dystonia, allergic asthma, migraine, chronic hypoxia on 2L O2, steroid induced DM, Esophageal dysmotility on PEG, JUANJOSE, chronic pain syndrome with opioid dependency, mast cell syndrome on benadryl drip and steroids came to
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 Had PICC line replaced and completed cipro as per ID. Due to concern for PEG tube malfunction had
it replaced wice on 09/22 and 11/04. Continued on benadryl drip 2/2 hx of recurrent anaphylaxis 2/2 mast cell activation syndrome and weaned off it. Had multiple multidisciplianry meetings in attempts to minimize IV medication. PO Benadryl is continued
with recommendation to increase to max 300mg/day as needed.
Had fall on 10/03 and found Fx of 6th and 7th ribs without complications.
Attempt to transfer to [facility] (where patient was getting all her care) failed since receiving hospital administration was concerned for too high complexity of the patient
Ongoing disposition attempts per for home care.
A/P:
#Bacteremia 2/2 CLABSI
Completed cipro on 10/06/23
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
follows with Dr. Lizabeth Villanueva at [facility] hematology.
Continue Ativan
cont Gleevac, steroids
Levalbuterol as needed
Continue carbidopa levodopa
prednisone continued
Outpatient IV Benadryl drip at 15 mg/hr upon presentation. As discussed with primary accounts receivable analyst Dr. Mora plan is to slowly taper.
Multiple conversations with patient almost on a daily basis in regards to goals of care including attempt to wean off Benadryl drip with possibly substitution to oral regimen to facilitate discharge as well as outpatient management. Patient has been
resistant to wean off Benadryl drip completely at this point as per Dr. Kirk
11/26. Multidisciplinary meeting including psychiatry, clinical pharmacy, medicine, nursing.
Patient clinical course along with medication regimen has been reviewed.
With the goal of minimize exposure to IV medications and optimize regimen following changes implemented:
-Daily IV fluids discontinued with plan to monitor oral intake and orthostatics.
-IV Benadryl pushes have been discontinued.
-Lorazepam sublingual as needed order has been discontinued.
-IV lorazepam has been discontinued
Initiated:
Benadryl 25 mg infusion through piggyback will be provided over 10 minutes for breakthrough dystonic attack.
Benadryl p.o. 25 mg will be scheduled every 4 hours.
Lorazepam sublingual 1 mg with the scheduled while awake every 4 hours.
Hydromorphone p.o. 8 mg Q6H PRN will be continued for severe pain along with Suboxone.
12/02.
Multidisciplinary discussion involving nursing, primary service, psychiatry, pharmacy, case management
Plan is to continue current care including intravenous Benadryl drip wean. Schedule below:
Diphenhydramine continuous infusion taper schedule Q72hr
12/18 @12/21 @1259 � 2MG/HR
12/21 @12/24 @1259 � 1MG/HR
12/25 @12/27 @0.5 mg/hr, and plan to further decrease to 0.25 mg/hr starting 12/28
Can consider increasing diphenhydramine PO up to max 300mg/day IF NEEDED. Would recommend increasing if episodes increase.
Current dose is 25 mg Q4H via tube, would increase to 37.5mg Q4H IF NEEDED, completely off the drip 12/29
01/15. Attempted transition Benadryl dose given for dystonic reaction to intramuscular route with bicarb dose via IV piggyback if dystonia lasts over 60 minutes.
01/16. Discussed with family at bedside. Required Ativan 0.5 mg IV x 1. Discussed with attending RN. Continue current management and discharge disposition.
01/17. Discussed with father at bedside. Patient requests to see if she can go back on the drip but Dr. Murray told her that that is not necessary and we are continue with current management and we are trying to transition her for safe discharge as
well. Continue current management and discharge disposition.
#Dystonia
Cont baclofen and synemet
#Thrush
Completed clotrimasole troches
#GERD
#Chronic pain syndrome withn opioid dependency
#Sinus tachycardia, chronic
#Esophageal dysmotility
#Gastroparesis on PEG
#RLS
#Hx of DVT
#Allergy induced asthma with chronic hypoxic respiratory failure on 2L home O2
#Migraine d/o
Cont home meds
#Fall with uncomplicated 6,7 rib Fx
on 09/22
#DM steroid induced
Accuchecks
Insulin
DM diet
#Iatrogenic immunosuppression
2/2 steroids
reverse isolation
FULL/Eliquis
Disposition: Discussion with primary accounts receivable analyst Dr. Ethan Villanueva on 10/09. Discussed possibility of attempting weaning Benadryl drip likely could be done as outpatient. With current family social situation, unfortunately there is no options
for disposition other than home on IV infusion. Possibility of a transfer to [facility] discussed as well, although according to Dr. Villanueva hospital administration declined services due to complexity. Also discussed possibility of
transfer to tertiary center ([facility] declined in the past).
10/[address] Villanueva over the phone as well as [facility] transfer center.
Complex patient. Attempt to wean off Benadryl drip over the last 2 weeks with persistent dystonic episodes.
While patient is relatively stable with her current condition, given complex clinical picture requiring multi disciplinary approach not limited to medicine, hematology, allergology, as well as neuropsychiatric assessment, patient would be better
served at a tertiary facility. Patient was accepted to [facility] for transfer, but hospital administration denied her transfer due to complexity (discussed with patient who is aware).
Anticipated Discharge: > 48 hours
Subjective/Interval History
-
Date of Service: January 21, 2024
Objective Data
-
Vital Signs:
Vital Signs
Temp Pulse Resp BP Pulse Ox
97.9 F 102 13 115/78 97
01/21/24 07:42 01/21/24 16:00 01/21/24 16:00 01/21/24 16:00 01/21/24 10:02
I&O
01/20/24 01/21/24 01/22/24
06:59 06:59 06:59
Intake Total 1650 / 1650 1310 / 1310 480 / 480
Output Total 450 / 450 2800 / 2800
Balance 1200 / 1200 -1490 / -1490 480 / 480
Physical Exam
-
General: No Apparent Distress
HEENT: Normocephalic
Respiratory: Clear to Auscultation
Neuro: Awake, Alert, Oriented and AO x 3
Psych: Calm
[2024-01-21] MEDS: ZYRTEC 10 MG TUBE ×2 (17:08→21:56)
--- NOTE | 2024-01-21 18:47 | PTCARENOTE ---
Patient with 2 dystonic episodes today both lasting approx 1 1/2 hr. IM Benadryl giving upon onset of attack with IV Benadryl following 60min of unresolved symptoms. Ice pack provided as patient stated they help in the past. Call sanchez in reach.
[2024-01-21 18:51] LABS: Glucose - Point of Care 100 mg/dl (70-99)
[2024-01-21] MEDS: FEOSOL 325 MG PO (21:56)
--- NOTE | 2024-01-21 22:00 | PTCARENOTE ---
Patient received from previous RN. Pt AAO. NSR on monitor. GJ tube, Pt assisted in changing tubing. PW in use. Voiding large amounts of yellow urine. Pt assisted with bath and full bead change. Call light in reach.
[2024-01-21 22:59] LABS: Glucose - Point of Care 125 mg/dl (70-99)
[2024-01-22] VITALS (10 sets, daily range): BP systolic 109–124; BP diastolic 65–90
[2024-01-22] MEDS: BENADRYL 50.5 MG IV (01:14)
[2024-01-22] MEDS: BENADRYL SOLUTION 25 MG TUBE ×6 (02:01→21:37)
--- NOTE | 2024-01-22 02:20 | PTCARENOTE ---
Pt with dystonic episode. ordered Zofran and IM Benadryl administered on onset of attack at 23:23. Pt provided with ice packs, fan turned on. HR 117, Sat 98% on 2L. After 60 mins of unresolved symptoms, IV Benadryl Given. After that symptoms shortly
resolved. Pt awake and alert, tired, and resting watching TV. Warm blankets provided.
[2024-01-22] MEDS: ATIVAN 1 MG SL ×4 (04:24→21:36)
[2024-01-22] MEDS: SINEMET 25-100 1.5 TABLET TUBE ×2 (05:46→09:45)
[2024-01-22] MEDS: LIORESAL 10 MG TUBE ×2 (05:46→14:52)
[2024-01-22] MEDS: DUONEB 3 ML INH ×2 (07:22→19:40)
[2024-01-22] MEDS: PULMICORT INH (08:05)
[2024-01-22] MEDS: NOVOLOG FLEXPEN SC ×3 (09:41→18:41)
[2024-01-22] MEDS: NOVOLOG FLEXPEN-LOW RESISTANCE SC ×3 (09:41→18:41)
[2024-01-22] MEDS: LIDOCAINE 4% PATCH 1 PATCH TOPICAL (09:43)
[2024-01-22] MEDS: GASTROCROM 300 MG PO ×3 (09:44→19:55)
[2024-01-22] MEDS: SUBUTEX 2 MG SL ×4 (09:44→21:36)
[2024-01-22] MEDS: HYDREA 500 MG PO ×2 (09:45→19:57)
[2024-01-22] MEDS: CLARITIN 10 MG TUBE (09:45)
[2024-01-22] MEDS: COLACE 100 MG PO (09:45)
[2024-01-22] MEDS: DELTASONE 10 MG TUBE ×2 (09:45→20:11)
[2024-01-22] MEDS: VITAMIN B1 100 MG TUBE (09:46)
[2024-01-22] MEDS: TYLENOL 650 MG PO ×2 (09:46→16:27)
[2024-01-22 09:47] LABS: Glucose - Point of Care 67 mg/dl (70-99)
[2024-01-22] MEDS: INDERAL 10 MG TUBE ×2 (09:47→16:25)
[2024-01-22] MEDS: PEPCID 40 MG IV (09:47)
[2024-01-22] MEDS: ZOFRAN 4 MG IV ×3 (09:47→22:34)
[2024-01-22] MEDS: NSS (PRESERVATIVE FREE) 6 ML IV (09:47)
[2024-01-22] MEDS: ELIQUIS 5 MG PO ×2 (09:47→19:57)
[2024-01-22] MEDS: NON-FORMULARY ITEM 1 UNIT PO ×2 (09:48→19:59)
[2024-01-22] MEDS: NON-FORMULARY ITEM 1 MG PO ×2 (09:48→19:58)
[2024-01-22] MEDS: MIRALAX TUBE (09:49)
[2024-01-22] MEDS: DESENEX/MITRAZOL/ZEASORB 1 APPLIC TOPICAL ×2 (09:50→19:58)
[2024-01-22] MEDS: ZADITOR 1 DROP BOTH EYES ×2 (09:50→20:04)
[2024-01-22] MEDS: NON-FORMULARY ITEM PO (09:51)
--- NOTE | 2024-01-22 10:00 | PTCARENOTE ---
Patient received from clinical dental technician. Patient resting comfortably in bed. AAO, VSS. Again, one event noted overnight and treated with PRN IM Benadryl along with the IV Benadryl. Complaints of joint and generalized whole body pain at this time, see
MAR. Currently on 2L N/C for HS, Room air during the day as tolerated although the O2 is mostly on. Continuing current plan and awaiting for insurance approvals. Purewick in place. IV Benadryl and IV Fomotadine to be discontinued. Call sanchez in
reach.
[2024-01-22 10:08] LABS: Glucose - Point of Care 73 mg/dl (70-99)
--- NOTE | 2024-01-22 11:38 | W.PN.HOSP.TC ---
Today's Communication/Plan
-
Has been off IV Benadryl drip
Continue enteral Benadryl with now additional dose changed to intramuscularly.
Would be ideally to maintain on enteral Benadryl as outpatient.
Pepcid changed to oral route.
Monitor for recurrent hypoglycemia adjusting insulin dose.
Plan of care discussed with primary laundry laborer Dr. Mora over the phone.
Assessment / Plan
Assessment / Plan
Conditions prior to admission:
1. Mast cell activation syndrome.
2. Chronic dystonic reaction.
3. Orthostatic hypotension with postural orthostatic and tachycardia syndrome.
4. Dopa sensitive dystonia.
5. Steroid-induced diabetes.
6. Prior history of deep venous thrombosis and pulmonary embolism.
7. Chronic pain syndrome.
8. Migraine headaches.
9. Gastroesophageal reflux disease.
10. Benzodiazepine and opiate dependence.
11. Restless legs syndrome.
12. Insomnia.
13. History of vocal cord dysfunction.
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
15. Gastroparesis.
16. 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
17. 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
33yo F with PMHx of GERD, dystonia, allergic asthma, migraine, chronic hypoxia on 2L O2, steroid induced DM, Esophageal dysmotility on PEG, JUANJOSE, chronic pain syndrome with opioid dependency, mast cell syndrome on benadryl drip and steroids came to
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 Had PICC line replaced and completed cipro as per ID. Due to concern for PEG tube malfunction had
it replaced wice on 09/22 and 11/04. Continued on benadryl drip 2/2 hx of recurrent anaphylaxis 2/2 mast cell activation syndrome and weaned off it. Had multiple multidisciplianry meetings in attempts to minimize IV medication. PO Benadryl is continued
with recommendation to increase to max 300mg/day as needed.
Had fall on 10/03 and found Fx of 6th and 7th ribs without complications.
Attempt to transfer to [facility] (where patient was getting all her care) failed since receiving hospital administration was concerned for too high complexity of the patient
Ongoing disposition attempts per CM for home care.
A/P:
#Bacteremia 2/2 CLABSI
Completed cipro on 10/06/23
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
follows with Dr. Lizabeth Villanueva at [facility] hematology.
Continue Ativan
cont Gleevac, steroids
Levalbuterol as needed
Continue carbidopa levodopa
prednisone continued
Outpatient IV Benadryl drip at 15 mg/hr upon presentation. As discussed with primary laundry laborer Dr. Mora plan is to slowly taper.
Multiple conversations with patient almost on a daily basis in regards to goals of care including attempt to wean off Benadryl drip with possibly substitution to oral regimen to facilitate discharge as well as outpatient management. Patient has been
resistant to wean off Benadryl drip completely at this point as per Dr. Kirk
11/26. Multidisciplinary meeting including psychiatry, clinical pharmacy, medicine, nursing.
Patient clinical course along with medication regimen has been reviewed.
With the goal of minimize exposure to IV medications and optimize regimen following changes implemented:
-Daily IV fluids discontinued with plan to monitor oral intake and orthostatics.
-IV Benadryl pushes have been discontinued.
-Lorazepam sublingual as needed order has been discontinued.
-IV lorazepam has been discontinued
Initiated:
Benadryl 25 mg infusion through piggyback will be provided over 10 minutes for breakthrough dystonic attack.
Benadryl p.o. 25 mg will be scheduled every 4 hours.
Lorazepam sublingual 1 mg with the scheduled while awake every 4 hours.
Hydromorphone p.o. 8 mg Q6H PRN will be continued for severe pain along with Suboxone.
12/02.
Multidisciplinary discussion involving nursing, primary service, psychiatry, pharmacy, case management
Plan is to continue current care including intravenous Benadryl drip wean. Schedule below:
Diphenhydramine continuous infusion taper schedule Q72hr
12/18 @1300 � 8/ @1259 � 2MG/HR
12/21 @1300 � 8 @1259 � 1MG/HR
12/25 @1300 � / @0.5 mg/hr, and plan to further decrease to 0.25 mg/hr starting 12/28
Can consider increasing diphenhydramine PO up to max 300mg/day IF NEEDED. Would recommend increasing if episodes increase.
Current dose is 25 mg Q4H via tube, would increase to 37.5mg Q4H IF NEEDED, completely off the drip 12/29
01/15. Attempted transition Benadryl dose given for dystonic reaction to intramuscular route with bicarb dose via IV piggyback if dystonia lasts over 60 minutes.
01/16. Discussed with family at bedside. Required Ativan 0.5 mg IV x 1. Discussed with attending RN. Continue current management and discharge disposition.
01/17. Discussed with father at bedside. Patient requests to see if she can go back on the drip but Dr. Murray told her that that is not necessary and we are continue with current management and we are trying to transition her for safe discharge as
well. Continue current management and discharge disposition.
#Dystonia
Cont baclofen and synemet
#Thrush
Completed clotrimasole troches
#GERD
#Chronic pain syndrome withn opioid dependency
#Sinus tachycardia, chronic
#Esophageal dysmotility
#Gastroparesis on PEG
#RLS
#Hx of DVT
#Allergy induced asthma with chronic hypoxic respiratory failure on 2L home O2
#Migraine d/o
Cont home meds
#Fall with uncomplicated 6,7 rib Fx
on 09/22
#DM steroid induced
Accuchecks
Insulin
DM diet
#Iatrogenic immunosuppression
2/2 steroids
reverse isolation
FULL/Eliquis
Disposition: Discussion with primary laundry laborer Dr. Ethan Villanueva on 10/09. Discussed possibility of attempting weaning Benadryl drip likely could be done as outpatient. With current family social situation, unfortunately there is no options
for disposition other than home on IV infusion. Possibility of a transfer to [facility] discussed as well, although according to Dr. Villanueva hospital administration declined services due to complexity. Also discussed possibility of
transfer to tertiary center ([facility] declined in the past).
10/[address] Villanueva over the phone as well as [facility] transfer center.
Complex patient. Attempt to wean off Benadryl drip over the last 2 weeks with persistent dystonic episodes.
While patient is relatively stable with her current condition, given complex clinical picture requiring multi disciplinary approach not limited to medicine, hematology, allergology, as well as neuropsychiatric assessment, patient would be better
served at a tertiary facility. Patient was accepted to [facility] for transfer, but hospital administration denied her transfer due to complexity (discussed with patient who is aware).
Anticipated Discharge: 24 - 48 hours
Subjective/Interval History
-
Date of Service: January 22, 2024
Objective Data
-
Vital Signs:
Vital Signs
Temp Pulse Resp BP Pulse Ox
97.6 F 92 15 116/80 97
01/22/24 08:00 01/22/24 10:00 01/22/24 10:00 01/22/24 09:47 01/22/24 11:21
I&O
01/21/24 01/22/24 01/23/24
06:59 06:59 06:59
Intake Total 1310 / 1310 2069
Output Total 2800 / 2800 110 / 110
Balance -1490 / -1490 1959 / 1959
Physical Exam
-
General: No Apparent Distress
HEENT: Normocephalic
Respiratory: Clear to Auscultation
Neuro: Awake, Alert, Oriented and AO x 3
Psych: Calm
[2024-01-22] MEDS: LANTUS 0.05 UNITS SC (12:36)
[2024-01-22 12:38] LABS: Glucose - Point of Care 113 mg/dl (70-99)
[2024-01-22] MEDS: BENADRYL 25 MG IM ×2 (14:45→21:37)
[2024-01-22] MEDS: SINEMET 25-100 2 TABLET TUBE ×2 (14:53→17:32)
[2024-01-22] MEDS: NON-FORMULARY ITEM 200 MG PO (14:57)
[2024-01-22 15:02] LABS: Glucose - Point of Care 156 mg/dl (70-99)
--- NOTE | 2024-01-22 15:02 | CM ---
Patient with Dx Mast Cell Activation Syndrome, dystonia/movement disorder. PICC in place. Receiving Benadryl solution Q4H via PEG, Benadryl IM Q4 prn MCAS reaction.
Spoke with Dr Kirk; the IV Benadryl and IV famotidine have been discontinued and IM Benadryl prn is ordered. Provided update has contacted [place] and Nurse/Caregiver agencies to inform them of patient's updated needs and are waiting
callbacks.
Phone call to Leni Avalos Service Coordination Control Room Agent (ph [phone]); provided update with medication changes. She has requested approval from her Dept for HABITAT BIOLOGIST caregivers, and is waiting for confirmation that they can approve
LPNs to administer IM or PEG tube meds. [facility] relayed to them that they will not have the requisite shift caregivers. Amara and Roslyn are both off tomorrow - the contact is Marline Murphy, Service Coor Probation Manager at ph [phone]. Amara
may email CM with update about HABITAT BIOLOGIST approval as caregiver- provided email.
Spoke with Swati, Fancy Packer & Master Barber, [facility] (ph [phone], cell [phone]); provided update with medication changes. She is looking to see if she has any more available RNs or LPNs and will let CM know, hopefully in
the next few days.
Received phone call from dorinda Marquez (ph [phone]); Jl said he was aware of the patient's medication changes and was hoping request for shift nurses had not been cancelled by - reassured him request was still in place and
efforts had been made today with patient's insurance and HH agencies to relay patient's updated needs. Jl relayed that patient is hoping to be discharged soon to her apartment. Explained to Jl that as [place] was paying for nurses for shift
care, that has to wait for [employer] to provide agencies they have contacted in order to make referrals, and that the requests that have been made since November have not been fulfilled. CM relayed that the patient's family has the option to line up
their own nurses for shift care and pay privately which may be faster due to a potential larger network of HH agencies- he did not offer to do that.
Spoke with Saravanan, pharmacist, [facility] , fax [phone] or [phone]); informed him that patient's IV meds were discontinued.
Plan follow up with Leni maldonado; skilled RN/HABITAT BIOLOGIST nurse caregiver approvals.
Plan home with agency for skilled RN/HABITAT BIOLOGIST shift care.
[2024-01-22] MEDS: ZYRTEC 10 MG TUBE (16:27)
[2024-01-22] MEDS: GASTROCROM PO (17:00)
[2024-01-22] MEDS: NSS (PRESERVATIVE FREE) 0.5 ML IV (17:18)
[2024-01-22] MEDS: ATIVAN 1 MG IV (17:18)
--- NOTE | 2024-01-22 18:30 | PTCARENOTE ---
Patient in the middle of a 3 1/2 hr long dystonic episode. PRN IM Benadryl give at the beginning of the episode at 1445. Scheduled meds and PRN meds giving at appropriate intervals as scheduled, see MAR. Around 2 hours into episode, hospitalist
updated. Reached out to have something ordered to help since the IV Benadryl had been discontinued. 1mg IV Ativan ordered and administered at 1718. This PRN dose provided relief for approximately 5-10 minutes and was able to have a conversation.
After that time, she proceeded to go back into the dystonic episode. After giving her some time to settle, and not settling, hospitalist made aware of continued episode and was instructed to continue to monitor. Patient finally settled after
almost 4 hours. Patient assessed and immediate needs addressed.
[2024-01-22 18:33] LABS: Glucose - Point of Care 112 mg/dl (70-99)
[2024-01-22] MEDS: PULMICORT 0.5 MG INH (19:40)
[2024-01-22] MEDS: PEPCID 40 MG PO (19:57)
[2024-01-22] MEDS: COLACE PO (20:00)
--- NOTE | 2024-01-22 20:30 | PTCARENOTE ---
Patient received from previous RN. Pt AAO. NSR on monitor. 97% on RA/ lungs clear B/L. Wound care preformed for right sided under breast MASD. Pt provided with warm blankets. Remote video monitoring in use. Call light in reach. Denies further needs
at this time.
--- NOTE | 2024-01-22 21:40 | PTCARENOTE ---
Pt having dystonic episode. Scheduled Ativan given, PRN IM Benadryl given, please see MAR . Pt on 2L 02, Sat 97%. HR 119. Fan turned on, ice packs given.
[2024-01-22 21:58] LABS: Glucose - Point of Care 162 mg/dl (70-99)
[2024-01-23] VITALS (8 sets, daily range): BP systolic 94–133; BP diastolic 66–89; PULSE 100; O2SAT 95
[2024-01-23] MEDS: TYLENOL 650 MG PO ×3 (00:34→16:37)
[2024-01-23] MEDS: LIORESAL 10 MG TUBE ×4 (00:34→21:19)
[2024-01-23] MEDS: GASTROCROM 300 MG PO ×5 (00:35→21:19)
[2024-01-23] MEDS: FEOSOL 325 MG PO ×2 (00:35→21:19)
[2024-01-23] MEDS: ZYRTEC 10 MG TUBE ×3 (00:35→21:20)
[2024-01-23] MEDS: INDERAL 10 MG TUBE ×4 (00:35→21:19)
[2024-01-23] MEDS: BENADRYL SOLUTION 25 MG TUBE ×4 (01:21→13:06)
[2024-01-23] MEDS: ATIVAN 1 MG SL ×4 (04:01→21:18)
[2024-01-23 04:17] LABS: Glucose - Point of Care 103 mg/dl (70-99)
[2024-01-23] MEDS: SINEMET 25-100 1.5 TABLET TUBE ×2 (05:28→10:07)
[2024-01-23] MEDS: PULMICORT 0.5 MG INH ×2 (07:32→19:56)
[2024-01-23] MEDS: DUONEB 3 ML INH ×4 (07:32→23:39)
[2024-01-23 08:11] LABS: Glucose - Point of Care 87 mg/dl (70-99)
[2024-01-23] MEDS: NOVOLOG FLEXPEN-LOW RESISTANCE SC ×3 (08:46→17:54)
[2024-01-23] MEDS: NOVOLOG FLEXPEN SC ×3 (08:48→17:53)
[2024-01-23] MEDS: HYDREA 500 MG PO ×2 (08:50→21:15)
[2024-01-23] MEDS: VITAMIN B1 100 MG TUBE (08:51)
[2024-01-23] MEDS: CLARITIN 10 MG TUBE (08:51)
[2024-01-23] MEDS: DELTASONE 10 MG TUBE ×2 (08:51→21:13)
[2024-01-23] MEDS: SUBUTEX 2 MG SL ×4 (08:52→21:19)
[2024-01-23] MEDS: PEPCID 40 MG PO ×2 (08:53→21:17)
[2024-01-23] MEDS: ELIQUIS 5 MG PO ×2 (08:53→21:15)
[2024-01-23] MEDS: COLACE PO (08:54)
[2024-01-23] MEDS: LANTUS 0.05 UNITS SC (08:55)
[2024-01-23] MEDS: NON-FORMULARY ITEM 1 UNIT PO ×2 (08:58→21:17)
[2024-01-23] MEDS: MIRALAX TUBE (08:58)
[2024-01-23] MEDS: NON-FORMULARY ITEM 1 MG PO ×2 (08:59→21:15)
[2024-01-23] MEDS: LIDOCAINE 4% PATCH 1 PATCH TOPICAL (09:00)
[2024-01-23] MEDS: DESENEX/MITRAZOL/ZEASORB 1 APPLIC TOPICAL ×2 (09:01→21:15)
[2024-01-23] MEDS: NON-FORMULARY ITEM PO (09:03)
[2024-01-23] MEDS: ZADITOR 1 DROP BOTH EYES ×2 (09:03→21:18)
[2024-01-23] MEDS: ZOFRAN 4 MG IV ×3 (09:07→23:33)
[2024-01-23 12:25] LABS: Glucose - Point of Care 106 mg/dl (70-99)
[2024-01-23] MEDS: SINEMET 25-100 2 TABLET TUBE ×2 (13:07→17:57)
[2024-01-23] MEDS: NON-FORMULARY ITEM 200 MG PO (13:08)
--- NOTE | 2024-01-23 13:59 | CM ---
Addendum entered by Luci Garcia RN 01/23/24 16:29:
Received callback from Swati, Entomology Professor & Research Advisor, [facility] (ph [phone], cell [phone]);
she confirms that [facility] has RN for M-F 24 hrs/day.
[facility] has RN for Sat/Sun 8a-7p, and every other Sat/Sun 7p to 7a (twice/month).
The uncovered/open shifts are every other Sat/Sun 7p-7a (twice/month).
Swati is waiting to hear back from a nurse who may be available to do the open shifts.
Original Note:
Patient with Dx Mast Cell Activation Syndrome, dystonia/movement disorder. O2 2L. PICC in place. Receiving Benadryl solution Q4H via PEG, Benadryl IM Q4 prn MCAS reaction.
Email not received from Amara Sadler [facility] Service Coordination Store Mgr, with update about EXECUTIVE ASSISTANT TO GENERAL COUNSEL approval as caregiver.
Spoke with Swati, Entomology Professor & Research Advisor, [facility] (ph [phone], cell [phone]); requested update if any additional nurses have been lined up- she is involved in an audit right now and cannot discuss at this time. She will
call CM back.
Spoke with patient; she spoke with [facility] who says she has an RN for M-F and still working on the weekend. [facility] cannot find nurse for her. She had a call from [facility] ([phone]); she may have an RN available.
Mary offered to waive the Meet & Greet with [facility] RN in order to help speed up the d/c.
Spoke with [facility] ([phone]); they may have an RN available for this weekend. Encouraged her to connect with Marline at [facility] to get that approved. Discussed if Meet and Greet can be waived so as to expedite the
process.
Spoke with Marline Murphy [facility] Service Coor Gynecologist (ph [phone]); there has not been a decision about EXECUTIVE ASSISTANT TO GENERAL COUNSEL shift caregivers for this patient. She will call [facility] to see if they can approve the weekend RN, which can take 48 hrs.
She was made aware that we are hoping for discharge plans to be completed in the next few days if possible.
Plan follow up with Leni Friday about approval for [facility].
Plan home with agency for skilled RN/EXECUTIVE ASSISTANT TO GENERAL COUNSEL shift care.
[2024-01-23] MEDS: BENADRYL 25 MG IM ×2 (15:09→23:35)
--- NOTE | 2024-01-23 16:39 | W.PN.HOSP.TC ---
Today's Communication/Plan
-
Has been off IV Benadryl drip.
Rescue Benadryl had been changed from IV push to intramuscular.
Increase Benadryl enteral maintenance to 50 mg every 6 hours.
Assessment / Plan
Assessment / Plan
Conditions prior to admission:
1. Mast cell activation syndrome.
2. Chronic dystonic reaction.
3. Orthostatic hypotension with postural orthostatic and tachycardia syndrome.
4. Dopa sensitive dystonia.
5. Steroid-induced diabetes.
6. Prior history of deep venous thrombosis and pulmonary embolism.
7. Chronic pain syndrome.
8. Migraine headaches.
9. Gastroesophageal reflux disease.
10. Benzodiazepine and opiate dependence.
11. Restless legs syndrome.
12. Insomnia.
13. History of vocal cord dysfunction.
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
15. Gastroparesis.
16. 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
17. 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
33yo F with PMHx of GERD, dystonia, allergic asthma, migraine, chronic hypoxia on 2L O2, steroid induced DM, Esophageal dysmotility on PEG, JUANJOSE, chronic pain syndrome with opioid dependency, mast cell syndrome on benadryl drip and steroids came to
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 Had PICC line replaced and completed cipro as per ID. Due to concern for PEG tube malfunction had
it replaced wice on 09/22 and 11/04. Continued on benadryl drip 2/2 hx of recurrent anaphylaxis 2/2 mast cell activation syndrome and weaned off it. Had multiple multidisciplianry meetings in attempts to minimize IV medication. PO Benadryl is continued
with recommendation to increase to max 300mg/day as needed.
Had fall on 10/03 and found Fx of 6th and 7th ribs without complications.
Attempt to transfer to [facility] (where patient was getting all her care) failed since receiving hospital administration was concerned for too high complexity of the patient
Ongoing disposition attempts per CM for home care.
A/P:
#Bacteremia 2/2 CLABSI
Completed cipro on 10/06/23
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
follows with Dr. Lizabeth Villanueva at [facility] hematology.
Continue Ativan
cont Gleevac, steroids
Levalbuterol as needed
Continue carbidopa levodopa
prednisone continued
Outpatient IV Benadryl drip at 15 mg/hr upon presentation.
Has been off IV Benadryl drip.
Rescue Benadryl changed to intramuscular route.
Increase enteral Benadryl to 50 mg every 6 hours.
#Dystonia
Cont baclofen and synemet
#Thrush
Completed clotrimasole troches
#GERD
#Chronic pain syndrome withn opioid dependency
#Sinus tachycardia, chronic
#Esophageal dysmotility
#Gastroparesis on PEG
#RLS
#Hx of DVT
#Allergy induced asthma with chronic hypoxic respiratory failure on 2L home O2
#Migraine d/o
Cont home meds
#Fall with uncomplicated 6,7 rib Fx
on 09/22
#DM steroid induced
Accuchecks
Insulin
DM diet
#Iatrogenic immunosuppression
2/2 steroids
reverse isolation
FULL/Eliquis
Disposition: Discussion with primary crankshaft straightener Dr. Ethan Villanueva on 10/09. Discussed possibility of attempting weaning Benadryl drip likely could be done as outpatient. With current family social situation, unfortunately there is no options
for disposition other than home on IV infusion. Possibility of a transfer to [facility] discussed as well, although according to Dr. Villanueva hospital administration declined services due to complexity. Also discussed possibility of
transfer to tertiary center ([facility] declined in the past).
10/[address] Villanueva over the phone as well as [facility] transfer center.
Complex patient. Attempt to wean off Benadryl drip over the last 2 weeks with persistent dystonic episodes.
While patient is relatively stable with her current condition, given complex clinical picture requiring multi disciplinary approach not limited to medicine, hematology, allergology, as well as neuropsychiatric assessment, patient would be better
served at a tertiary facility. Patient was accepted to [facility] for transfer, but hospital administration denied her transfer due to complexity (discussed with patient who is aware).
Anticipated Discharge: 24 - 48 hours
Subjective/Interval History
-
Date of Service: January 23, 2024
Objective Data
-
Vital Signs:
Vital Signs
Temp Pulse Resp BP Pulse Ox
98.2 F 95 18 112/73 96
01/23/24 11:55 01/23/24 15:14 01/23/24 15:14 01/23/24 15:09 01/23/24 12:03
I&O
01/22/24 01/23/24 01/24/24
06:59 06:59 06:59
Intake Total 2069 / 2069 1850 / 1850 400 / 400
Output Total 110 / 110 2300 / 2300 750 / 750
Balance 1960 / 1960 -450 / -450 -350 / -350
Physical Exam
-
General: No Apparent Distress
HEENT: Normocephalic
Respiratory: Clear to Auscultation
Neuro: Awake, Alert, Oriented and AO x 3
Psych: Calm
--- NOTE | 2024-01-23 17:03 | PTCARENOTE ---
Pt having a dystonic episode. Scheduled Ativan given, PRN IM Benadryl given, see via MAR. Pt put on 2L O2 NC and remains 98%. HR 120. Repositioned pt according to comfort. Pt states she felt an 'aura' coming on before episode. Zofran given due to
nausea IV.
[2024-01-23] MEDS: BENADRYL SOLUTION 50 MG TUBE ×2 (17:58→23:38)
[2024-01-23 18:04] LABS: Glucose - Point of Care 93 mg/dl (70-99)
[2024-01-23] MEDS: COLACE 100 MG PO (21:13)
[2024-01-23 21:51] LABS: Glucose - Point of Care 115 mg/dl (70-99)
[2024-01-24] VITALS: BP 115/88
[2024-01-24 04:00] VITALS: BP 93/55
[2024-01-24] MEDS: ATIVAN 1 MG SL ×4 (04:10→21:28)
--- NOTE | 2024-01-24 04:34 | PTCARENOTE ---
Pt having one episode lasting about 40 minutes. Assessment care and vitals as charted.
[2024-01-24] MEDS: LIORESAL 10 MG TUBE ×3 (05:52→21:31)
[2024-01-24] MEDS: BENADRYL SOLUTION 50 MG TUBE ×4 (05:52→23:34)
[2024-01-24] MEDS: SINEMET 25-100 1.5 TABLET TUBE ×2 (05:52→09:21)
[2024-01-24] MEDS: DUONEB 3 ML INH ×3 (07:09→19:43)
[2024-01-24] MEDS: PULMICORT 0.5 MG INH ×2 (07:09→19:43)
[2024-01-24 08:00] VITALS: BP 108/64
[2024-01-24 08:04] LABS: Glucose - Point of Care 94 mg/dl (70-99)
[2024-01-24] MEDS: NON-FORMULARY ITEM 1 MG PO ×2 (09:17→21:26)
[2024-01-24] MEDS: NON-FORMULARY ITEM 1 UNIT PO ×2 (09:17→21:27)
[2024-01-24] MEDS: MIRALAX 17 GRAMS TUBE (09:19)
[2024-01-24] MEDS: LIDOCAINE 4% PATCH 1 PATCH TOPICAL (09:19)
[2024-01-24] MEDS: LANTUS 0.05 UNITS SC (09:19)
[2024-01-24] MEDS: HYDREA 500 MG PO ×2 (09:20→21:26)
[2024-01-24] MEDS: DELTASONE 10 MG TUBE ×2 (09:21→21:25)
[2024-01-24] MEDS: CLARITIN 10 MG TUBE (09:22)
[2024-01-24] MEDS: NON-FORMULARY ITEM PO (09:22)
[2024-01-24] MEDS: VITAMIN B1 100 MG TUBE (09:22)
[2024-01-24] MEDS: PEPCID 40 MG PO ×2 (09:22→21:28)
[2024-01-24] MEDS: GASTROCROM 300 MG PO ×4 (09:22→21:29)
[2024-01-24] MEDS: COLACE 100 MG PO (09:23)
[2024-01-24] MEDS: ELIQUIS 5 MG PO ×2 (09:23→21:26)
[2024-01-24] MEDS: INDERAL 10 MG TUBE ×3 (09:23→21:31)
[2024-01-24] MEDS: SUBUTEX 2 MG SL ×4 (09:23→21:31)
[2024-01-24] MEDS: NOVOLOG FLEXPEN SC ×3 (09:24→17:12)
[2024-01-24] MEDS: NOVOLOG FLEXPEN-LOW RESISTANCE SC ×2 (09:24→11:47)
[2024-01-24] MEDS: ZADITOR 1 DROP BOTH EYES ×2 (09:25→21:28)
[2024-01-24] MEDS: ZOFRAN 4 MG IV ×3 (09:28→21:34)
[2024-01-24] MEDS: TYLENOL 650 MG PO ×2 (09:28→21:33)
[2024-01-24] MEDS: DESENEX/MITRAZOL/ZEASORB 1 APPLIC TOPICAL ×2 (09:29→21:25)
[2024-01-24 11:59] LABS: Glucose - Point of Care 100 mg/dl (70-99)
[2024-01-24] MEDS: SINEMET 25-100 2 TABLET TUBE ×2 (14:45→17:00)
[2024-01-24] MEDS: NON-FORMULARY ITEM 200 MG PO (14:46)
[2024-01-24] MEDS: BENADRYL 25 MG IM (14:58)
--- NOTE | 2024-01-24 15:01 | W.PN.HOSP.TC ---
Today's Communication/Plan
-
Ongoing dc efforts
Assessment / Plan
Assessment / Plan
Conditions prior to admission:
1. Mast cell activation syndrome.
2. Chronic dystonic reaction.
3. Orthostatic hypotension with postural orthostatic and tachycardia syndrome.
4. Dopa sensitive dystonia.
5. Steroid-induced diabetes.
6. Prior history of deep venous thrombosis and pulmonary embolism.
7. Chronic pain syndrome.
8. Migraine headaches.
9. Gastroesophageal reflux disease.
10. Benzodiazepine and opiate dependence.
11. Restless legs syndrome.
12. Insomnia.
13. History of vocal cord dysfunction.
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
15. Gastroparesis.
16. 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
17. 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
33yo F with PMHx of GERD, dystonia, allergic asthma, migraine, chronic hypoxia on 2L O2, steroid induced DM, Esophageal dysmotility on PEG, JUANJOSE, chronic pain syndrome with opioid dependency, mast cell syndrome on benadryl drip and steroids came to
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 Had PICC line replaced and completed cipro as per ID. Due to concern for PEG tube malfunction had
it replaced wice on 09/22 and 11/04. Continued on benadryl drip 2/2 hx of recurrent anaphylaxis 2/2 mast cell activation syndrome and weaned off it. Had multiple multidisciplianry meetings in attempts to minimize IV medication. PO Benadryl is continued
with recommendation to increase to max 300mg/day as needed.
Had fall on 10/03 and found Fx of 6th and 7th ribs without complications.
Attempt to transfer to [facility] (where patient was getting all her care) failed since receiving hospital administration was concerned for too high complexity of the patient
Ongoing disposition attempts per CM for home care.
A/P:
#Bacteremia 2/2 CLABSI
Completed cipro on 10/06/23
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
follows with Dr. Lizabeth Villanueva at [facility] hematology.
Continue Ativan
cont Gleevac, steroids
Levalbuterol as needed
Continue carbidopa levodopa
prednisone continued
Outpatient IV Benadryl drip at 15 mg/hr upon presentation.
Has been off IV Benadryl drip.
Rescue Benadryl changed to intramuscular route.
Increase enteral Benadryl to 50 mg every 6 hours.
#Dystonia
Cont baclofen and synemet
#Thrush
Completed clotrimasole troches
#GERD
#Chronic pain syndrome withn opioid dependency
#Sinus tachycardia, chronic
#Esophageal dysmotility
#Gastroparesis on PEG
#RLS
#Hx of DVT
#Allergy induced asthma with chronic hypoxic respiratory failure on 2L home O2
#Migraine d/o
Cont home meds
#Fall with uncomplicated 6,7 rib Fx
on 09/22
#DM steroid induced
Accuchecks
Insulin
DM diet
#Iatrogenic immunosuppression
2/2 steroids
reverse isolation
FULL/Eliquis
Disposition: Discussion with primary assurance officer Dr. Ethan Villanueva on 10/09. Discussed possibility of attempting weaning Benadryl drip likely could be done as outpatient. With current family social situation, unfortunately there is no options
for disposition other than home on IV infusion. Possibility of a transfer to [facility] discussed as well, although according to Dr. Villanueva hospital administration declined services due to complexity. Also discussed possibility of
transfer to tertiary center ([facility] declined in the past).
10/[address] Villanueva over the phone as well as [facility] transfer center.
Complex patient. Attempt to wean off Benadryl drip over the last 2 weeks with persistent dystonic episodes.
While patient is relatively stable with her current condition, given complex clinical picture requiring multi disciplinary approach not limited to medicine, hematology, allergology, as well as neuropsychiatric assessment, patient would be better
served at a tertiary facility. Patient was accepted to [facility] for transfer, but hospital administration denied her transfer due to complexity (discussed with patient who is aware).
01/23 - No new complaints. Remains stable. cw current plan
Anticipated Discharge: > 48 hours
Subjective/Interval History
-
Date of Service: January 24, 2024
No new issues
Objective Data
-
Vital Signs:
Vital Signs
Temp Pulse Resp BP Pulse Ox
98.0 F 89 15 108/64 96
01/24/24 07:30 01/24/24 14:00 01/24/24 14:00 01/24/24 08:00 01/24/24 14:00
I&O
01/23/24 01/24/24 01/25/24
06:59 06:59 06:59
Intake Total 1850 / 1850 1380 / 1380
Output Total 2300 / 2300 1650 / 1650 900 / 900
Balance -450 / -450 -270 / -270 -900 / -900
Review of Systems
-
Respiratory: Denies Trouble Breathing
Cardiac: Denies Chest Pain
Abdomen/GI: Denies Nausea, Vomiting or Constipated
Physical Exam
-
Respiratory: Non Labored Respirations; Negative Accessory Resp Muscle Use
Cardiac: Regular Rhythm and S1/S2
GI: Soft
Neuro: AO x 3
Psych: Calm; Negative Confused
[2024-01-24] MEDS: ADRENALIN 0.3 MG IM ×2 (15:21→15:37)
--- NOTE | 2024-01-24 15:29 | PTCARENOTE ---
Addendum entered by Mirella Brown 01/24/24 16:50:
One time dose of Ativan ordered by Dr. Acevedo. Administered as ordered, see MAR. Episode slowly resolved. Pt incontinent of stool, hygiene completed. Pt extremely tearful and frustrated, emotional support provided.
Addendum entered by Mirella Brown 01/24/24 16:21:
Dr. Acevedo to bedside to examine pt. Dystonia continues.
Addendum entered by Mirella Brown 01/24/24 15:49:
Correction: Dr. Kirk off and Dr. Rich covering as cross coverage- notified via TT.
Addendum entered by Mirella Brown 01/24/24 15:39:
Second round of EPI administered for continued stridor and dystonia. Dr. Kirk notified via TT.
Original Note:
Pt with dystonic episode with father at bedside. IM Benadryl administered by lorena, IM EPI and IVP Zofran administered by this RN- see MAR. Ice packs applied for comfort. Emotional support provided to pt's father.
[2024-01-24 15:39] VITALS: BP 121/86
[2024-01-24 16:00] VITALS: BP 145/95
[2024-01-24] MEDS: NSS (PRESERVATIVE FREE) 0.5 ML IV (16:39)
[2024-01-24] MEDS: ATIVAN 1 MG IV (16:39)
--- NOTE | 2024-01-24 16:47 | W.PN.UPDATE ---
Update Note
Progress Note Update
Called to see as there was concern of anaphylaxis.
Pt with mast cell activation syndrome -idiopathich in a nature .
Here for more than 100 days and was weaned off from IV benadryl dri[p.
This morning patient was send number usual state of health; in my rounds she had no complaints.
Father was visiting this afternoon.
Patient started to have a change in his status-apparently was complaining of her' episode'. She was shaking and she told her she was short of breath. Apparently nurse heard stridor and she got 2 doses of epi which was ordered as needed.
When I arrived to the room patient is continuously shaking but no increased tone in the arms. Shakes were only noted in the arms.
She was appropriately answering questions-open the tongue which was not swollen.
No skin rash, urticaria or hives noted.
No audible stridor to me or wheezing.
Blood pressure stable. Tachycardic now unclear if related to epi.
Oxygenating fine on room air.
No active bronchospasm.
Patient started to become tearful and talking saying that she is truly having her episodes and she is not faking it. Requests help. She got a dose of IM Benadryl.
Will give a dose of Ativan as I feel this is more anxiety than a true anaphylactic reaction. There are no cardiovascular compromise, skin reactions or active bronchospasm.
Advised RN to touch base with her if they notice any stridor so we can evaluate. Hold on epinephrine for now.
Follow her response to IV Ativan.
Portions of this chart may have been created with voice recognition software. Occasional wrong word or 'sound alike' substitutions may have occurred due to the inherent limitations of voice recognition software.
--- NOTE | 2024-01-24 16:50 | PTCARENOTE ---
Pt assessed by Dr. Acevedo who advised this RN not to administer any further doses of epi; as pt is not having anaphylaxis. Epi orders d/c by .
[2024-01-24] MEDS: ZYRTEC 10 MG TUBE ×2 (17:01→21:32)
[2024-01-24] MEDS: NOVOLOG FLEXPEN-LOW RESISTANCE 1 UNITS SC (17:12)
[2024-01-24 17:22] LABS: Glucose - Point of Care 155 mg/dl (70-99)
[2024-01-24] MEDS: MYLICON 80 MG PO (18:39)
[2024-01-24] MEDS: COLACE PO ×2 (21:24→21:40)
[2024-01-24] MEDS: FEOSOL 325 MG PO (21:28)
[2024-01-24 21:31] VITALS: BP 101/64
[2024-01-25] VITALS: BP 102/71
[2024-01-25 00:08] LABS: Glucose - Point of Care 171 mg/dl (70-99)
[2024-01-25] MEDS: ATIVAN 1 MG SL ×4 (03:24→21:30)
[2024-01-25 04:00] VITALS: BP 96/64
[2024-01-25] MEDS: LIORESAL 10 MG TUBE ×3 (05:44→21:23)
[2024-01-25] MEDS: BENADRYL SOLUTION 50 MG TUBE ×3 (05:44→18:00)
[2024-01-25] MEDS: SINEMET 25-100 1.5 TABLET TUBE ×2 (05:44→10:48)
--- NOTE | 2024-01-25 06:39 | PTCARENOTE ---
Pt rested through out night. Respirations even unlabored. Pt had no episode over nigh. Assessment care and vitals as charted.
[2024-01-25] MEDS: PULMICORT 0.5 MG INH ×2 (07:09→20:51)
[2024-01-25] MEDS: DUONEB 3 ML INH ×2 (07:10→20:51)
[2024-01-25 08:00] VITALS: BP 112/73
[2024-01-25 08:22] LABS: Glucose - Point of Care 83 mg/dl (70-99)
[2024-01-25] MEDS: NOVOLOG FLEXPEN-LOW RESISTANCE SC ×3 (10:45→18:11)
[2024-01-25] MEDS: SUBUTEX 2 MG SL ×4 (10:47→21:22)
[2024-01-25] MEDS: VITAMIN B1 100 MG TUBE (10:47)
[2024-01-25] MEDS: PEPCID 40 MG PO ×2 (10:47→21:22)
[2024-01-25] MEDS: ELIQUIS 5 MG PO ×2 (10:47→21:22)
[2024-01-25] MEDS: DELTASONE 10 MG TUBE ×2 (10:47→21:23)
[2024-01-25] MEDS: COLACE PO ×2 (10:48→21:22)
[2024-01-25] MEDS: HYDREA 500 MG PO ×2 (10:48→21:24)
[2024-01-25] MEDS: CLARITIN 10 MG TUBE (10:49)
[2024-01-25] MEDS: INDERAL 10 MG TUBE ×3 (10:49→21:22)
[2024-01-25] MEDS: LIDOCAINE 4% PATCH 1 PATCH TOPICAL (10:50)
[2024-01-25] MEDS: MIRALAX TUBE (10:51)
[2024-01-25] MEDS: GASTROCROM 300 MG PO ×4 (10:51→21:23)
[2024-01-25] MEDS: DESENEX/MITRAZOL/ZEASORB 1 APPLIC TOPICAL ×3 (10:53→21:26)
[2024-01-25] MEDS: NON-FORMULARY ITEM 1 UNIT PO ×2 (10:55→21:25)
[2024-01-25] MEDS: NON-FORMULARY ITEM 80 MG PO (10:56)
[2024-01-25] MEDS: NON-FORMULARY ITEM 1 MG PO ×2 (10:57→21:25)
[2024-01-25] MEDS: ZADITOR 1 DROP BOTH EYES ×2 (10:58→21:24)
[2024-01-25] MEDS: TYLENOL 650 MG PO (11:04)
[2024-01-25] MEDS: ZOFRAN 4 MG IV ×2 (11:04→18:18)
[2024-01-25] MEDS: LANTUS 0.05 UNITS SC (11:24)
[2024-01-25] MEDS: NOVOLOG FLEXPEN SC ×2 (11:24→13:37)
[2024-01-25 12:00] VITALS: BP 111/73
--- NOTE | 2024-01-25 12:52 | W.PN.HOSP.TC ---
Today's Communication/Plan
-
cw current tx plan
Assessment / Plan
Assessment / Plan
Conditions prior to admission:
1. Mast cell activation syndrome.
2. Chronic dystonic reaction.
3. Orthostatic hypotension with postural orthostatic and tachycardia syndrome.
4. Dopa sensitive dystonia.
5. Steroid-induced diabetes.
6. Prior history of deep venous thrombosis and pulmonary embolism.
7. Chronic pain syndrome.
8. Migraine headaches.
9. Gastroesophageal reflux disease.
10. Benzodiazepine and opiate dependence.
11. Restless legs syndrome.
12. Insomnia.
13. History of vocal cord dysfunction.
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
15. Gastroparesis.
16. 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
17. 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
33yo F with PMHx of GERD, dystonia, allergic asthma, migraine, chronic hypoxia on 2L O2, steroid induced DM, Esophageal dysmotility on PEG, JUANJOSE, chronic pain syndrome with opioid dependency, mast cell syndrome on benadryl drip and steroids came to
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 Had PICC line replaced and completed cipro as per ID. Due to concern for PEG tube malfunction had
it replaced wice on 09/22 and 11/04. Continued on benadryl drip 2/2 hx of recurrent anaphylaxis 2/2 mast cell activation syndrome and weaned off it. Had multiple multidisciplianry meetings in attempts to minimize IV medication. PO Benadryl is continued
with recommendation to increase to max 300mg/day as needed.
Had fall on 10/03 and found Fx of 6th and 7th ribs without complications.
Attempt to transfer to [facility] (where patient was getting all her care) failed since receiving hospital administration was concerned for too high complexity of the patient
Ongoing disposition attempts per CM for home care.
A/P:
#Bacteremia 2/2 CLABSI
Completed cipro on 10/06/23
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
follows with Dr. Lizabeth Villanueva at [facility] hematology.
Continue Ativan
cont Gleevac, steroids
Levalbuterol as needed
Continue carbidopa levodopa
prednisone continued
Outpatient IV Benadryl drip at 15 mg/hr upon presentation.
Has been off IV Benadryl drip.
Rescue Benadryl changed to intramuscular route.
Increase enteral Benadryl to 50 mg every 6 hours.
#Dystonia
Cont baclofen and synemet
#Thrush
Completed clotrimasole troches
#GERD
#Chronic pain syndrome withn opioid dependency
#Sinus tachycardia, chronic
#Esophageal dysmotility
#Gastroparesis on PEG
#RLS
#Hx of DVT
#Allergy induced asthma with chronic hypoxic respiratory failure on 2L home O2
#Migraine d/o
Cont home meds
#Fall with uncomplicated 6,7 rib Fx
on 09/22
#DM steroid induced
Accuchecks
Insulin
DM diet
#Iatrogenic immunosuppression
2/2 steroids
reverse isolation
FULL/Eliquis
Disposition: Discussion with primary pediatric immunologist Dr. Ethan Villanueva on 10/09. Discussed possibility of attempting weaning Benadryl drip likely could be done as outpatient. With current family social situation, unfortunately there is no options
for disposition other than home on IV infusion. Possibility of a transfer to [facility] discussed as well, although according to Dr. Villanueva hospital administration declined services due to complexity. Also discussed possibility of
transfer to tertiary center ([facility] declined in the past).
10/[address] Villanueva over the phone as well as [facility] transfer center.
Complex patient. Attempt to wean off Benadryl drip over the last 2 weeks with persistent dystonic episodes.
While patient is relatively stable with her current condition, given complex clinical picture requiring multi disciplinary approach not limited to medicine, hematology, allergology, as well as neuropsychiatric assessment, patient would be better
served at a tertiary facility. Patient was accepted to [facility] for transfer, but hospital administration denied her transfer due to complexity (discussed with patient who is aware).
01/23 - No new complaints. Remains stable. cw current plan
01/24 - No recurrence of yesterday events. HD stable. CW current tx plan. HALLIE RN
Anticipated Discharge: > 48 hours
Subjective/Interval History
-
Date of Service: January 25, 2024
No further shaking ,stridor or SOB since the episode yesterday.
Objective Data
-
Vital Signs:
Vital Signs
Temp Pulse Resp BP Pulse Ox
98.3 F 98 18 112/73 94
01/25/24 07:06 01/25/24 10:49 01/25/24 07:12 01/25/24 10:49 01/25/24 07:12
I&O
01/24/24 01/25/24 01/26/24
06:59 06:59 06:59
Intake Total 1380 / 1380 480 / 480
Output Total 1650 / 1650 2400 / 2400
Balance -270 / -270 -1920 / -1920
Review of Systems
-
Respiratory: Denies Trouble Breathing
Cardiac: Denies Chest Pain
Abdomen/GI: Denies Nausea or Vomiting
Physical Exam
-
Respiratory: Non Labored Respirations; Negative Accessory Resp Muscle Use
Cardiac: Regular Rhythm and S1/S2
GI: Soft
Neuro: AO x 3; Negative Tremors
Psych: Calm
[2024-01-25] MEDS: NON-FORMULARY ITEM 200 MG PO (13:27)
[2024-01-25] MEDS: SINEMET 25-100 2 TABLET TUBE ×2 (13:27→18:00)
[2024-01-25 13:48] LABS: Glucose - Point of Care 100 mg/dl (70-99)
[2024-01-25] MEDS: BENADRYL 25 MG IM (14:54)
--- NOTE | 2024-01-25 14:57 | PTCARENOTE ---
typical for pt episode started at 14:58; Benadryl 25 IM adm + neb tx
[2024-01-25 16:00] VITALS: BP 122/84
--- NOTE | 2024-01-25 16:15 | CHAP ---
Visited Mary at 10:30. She was tearful and discouraged, said her attacks are getting worse. Much emotional and spiritual support provided.
[2024-01-25] MEDS: ZYRTEC 10 MG TUBE ×2 (18:02→21:22)
[2024-01-25 18:05] LABS: Glucose - Point of Care 134 mg/dl (70-99)
[2024-01-25] MEDS: NOVOLOG FLEXPEN 3 UNITS SC (18:11)
[2024-01-25] MEDS: NON-FORMULARY ITEM 1 UNIT VAG (18:49)
[2024-01-25 20:00] VITALS: BP 113/80
[2024-01-25] MEDS: FEOSOL 325 MG PO (21:22)
[2024-01-25 23:30] LABS: Glucose - Point of Care 106 mg/dl (70-99)
[2024-01-26] VITALS: BP 113/79
[2024-01-26] MEDS: BENADRYL 25 MG IM ×2 (00:09→14:25)
[2024-01-26] MEDS: BENADRYL SOLUTION 50 MG TUBE ×5 (00:10→23:35)
[2024-01-26] MEDS: ZOFRAN 4 MG IV ×4 (00:15→23:31)
[2024-01-26] MEDS: DUONEB 3 ML INH ×4 (00:16→19:21)
--- NOTE | 2024-01-26 00:24 | PTCARENOTE ---
Received pt at change of shift. All medications administered except Colace - pt refused. 00:15 pt had dystonic episode x1. RT called to bedside for treatment and PRN IM Benadryl administered.
[2024-01-26 04:00] VITALS: BP 98/64
[2024-01-26] MEDS: ATIVAN 1 MG SL ×4 (04:49→21:19)
[2024-01-26] MEDS: LIORESAL 10 MG TUBE ×3 (06:08→21:29)
[2024-01-26] MEDS: SINEMET 25-100 1.5 TABLET TUBE ×2 (06:09→10:02)
[2024-01-26] MEDS: PULMICORT 0.5 MG INH ×2 (07:27→19:21)
[2024-01-26 08:00] VITALS: BP 106/74
[2024-01-26 08:55] LABS: Glucose - Point of Care 79 mg/dl (70-99)
[2024-01-26] MEDS: PEPCID 40 MG PO ×2 (09:38→21:16)
[2024-01-26] MEDS: GASTROCROM 300 MG PO ×4 (09:52→21:21)
[2024-01-26] MEDS: NOVOLOG FLEXPEN SC ×2 (09:54→18:20)
[2024-01-26] MEDS: FLUSH (NSS) 2 FLUSH IV ×2 (09:56→16:11)
[2024-01-26] MEDS: TYLENOL 650 MG PO ×2 (09:58→23:32)
[2024-01-26] MEDS: SUBUTEX 2 MG SL ×4 (09:59→21:19)
[2024-01-26] MEDS: HYDREA 500 MG PO ×2 (10:00→21:18)
[2024-01-26] MEDS: ELIQUIS 5 MG PO ×2 (10:01→21:17)
[2024-01-26] MEDS: VITAMIN B1 100 MG TUBE (10:01)
[2024-01-26] MEDS: NON-FORMULARY ITEM 80 MG PO (10:01)
[2024-01-26] MEDS: NON-FORMULARY ITEM 1 MG PO ×2 (10:02→21:22)
[2024-01-26] MEDS: INDERAL 10 MG TUBE ×3 (10:02→21:18)
[2024-01-26] MEDS: NON-FORMULARY ITEM 1 UNIT PO ×2 (10:03→21:23)
[2024-01-26] MEDS: DELTASONE 10 MG TUBE ×2 (10:03→21:17)
[2024-01-26] MEDS: MIRALAX TUBE (10:04)
[2024-01-26] MEDS: LIDOCAINE 4% PATCH 1 PATCH TOPICAL (10:04)
[2024-01-26] MEDS: COLACE PO ×2 (10:06→21:20)
[2024-01-26] MEDS: DESENEX/MITRAZOL/ZEASORB 1 APPLIC TOPICAL ×2 (10:06→21:24)
[2024-01-26] MEDS: NOVOLOG FLEXPEN-LOW RESISTANCE SC ×3 (10:07→18:19)
[2024-01-26] MEDS: CLARITIN 10 MG TUBE (10:07)
[2024-01-26 12:00] VITALS: BP 105/73
[2024-01-26 12:07] LABS: Glucose - Point of Care 107 mg/dl (70-99)
[2024-01-26] MEDS: LANTUS 0.05 UNITS SC (12:30)
[2024-01-26] MEDS: ZADITOR 1 DROP BOTH EYES ×2 (12:36→21:24)
[2024-01-26] MEDS: NOVOLOG FLEXPEN 3 UNITS SC (12:36)
--- NOTE | 2024-01-26 15:44 | W.PN.HOSP.TC ---
Today's Communication/Plan
-
Has been off IV Benadryl drip
Increased oral Benadryl as a maintenance.
Discharge planing
Assessment / Plan
Assessment / Plan
Conditions prior to admission:
1. Mast cell activation syndrome.
2. Chronic dystonic reaction.
3. Orthostatic hypotension with postural orthostatic and tachycardia syndrome.
4. Dopa sensitive dystonia.
5. Steroid-induced diabetes.
6. Prior history of deep venous thrombosis and pulmonary embolism.
7. Chronic pain syndrome.
8. Migraine headaches.
9. Gastroesophageal reflux disease.
10. Benzodiazepine and opiate dependence.
11. Restless legs syndrome.
12. Insomnia.
13. History of vocal cord dysfunction.
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
15. Gastroparesis.
16. 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
17. 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
33yo F with PMHx of GERD, dystonia, allergic asthma, migraine, chronic hypoxia on 2L O2, steroid induced DM, Esophageal dysmotility on PEG, JUANJOSE, chronic pain syndrome with opioid dependency, mast cell syndrome on benadryl drip and steroids came to
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 Had PICC line replaced and completed cipro as per ID. Due to concern for PEG tube malfunction had
it replaced wice on 09/22 and 11/04. Continued on benadryl drip 2/2 hx of recurrent anaphylaxis 2/2 mast cell activation syndrome and weaned off it. Had multiple multidisciplianry meetings in attempts to minimize IV medication. PO Benadryl is continued
with recommendation to increase to max 300mg/day as needed.
Had fall on 10/03 and found Fx of 6th and 7th ribs without complications.
Attempt to transfer to [facility] (where patient was getting all her care) failed since receiving hospital administration was concerned for too high complexity of the patient
Ongoing disposition attempts per CM for home care.
A/P:
#Bacteremia 2/2 CLABSI
Completed cipro on 10/06/23
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
follows with Dr. Lizabteh Villanueva at [facility] hematology.
Continue Ativan
cont Gleevac, steroids
Levalbuterol as needed
Continue carbidopa levodopa
prednisone continued
Outpatient IV Benadryl drip at 15 mg/hr upon presentation.
Has been off IV Benadryl drip.
Rescue Benadryl changed to intramuscular route.
Increase enteral Benadryl to 50 mg every 6 hours.
#Dystonia
Cont baclofen and synemet
#Thrush
Completed clotrimasole troches
#GERD
#Chronic pain syndrome withn opioid dependency
#Sinus tachycardia, chronic
#Esophageal dysmotility
#Gastroparesis on PEG
#RLS
#Hx of DVT
#Allergy induced asthma with chronic hypoxic respiratory failure on 2L home O2
#Migraine d/o
Cont home meds
#Fall with uncomplicated 6,7 rib Fx
on 09/22
#DM steroid induced
Accuchecks
Insulin
DM diet
#Iatrogenic immunosuppression
2/2 steroids
reverse isolation
FULL/Eliquis
Disposition: Discussion with primary avionics electrical engineer Dr. Ethan Villanueva on 10/09. Discussed possibility of attempting weaning Benadryl drip likely could be done as outpatient. With current family social situation, unfortunately there is no options
for disposition other than home on IV infusion. Possibility of a transfer to [facility] discussed as well, although according to Dr. Villanueva hospital administration declined services due to complexity. Also discussed possibility of
transfer to tertiary center ([facility] declined in the past).
10/[address] Villanueva over the phone as well as [facility] transfer center.
Complex patient. Attempt to wean off Benadryl drip over the last 2 weeks with persistent dystonic episodes.
While patient is relatively stable with her current condition, given complex clinical picture requiring multi disciplinary approach not limited to medicine, hematology, allergology, as well as neuropsychiatric assessment, patient would be better
served at a tertiary facility. Patient was accepted to [facility] for transfer, but hospital administration denied her transfer due to complexity (discussed with patient who is aware).
01/23 - No new complaints. Remains stable. cw current plan
01/24 - No recurrence of yesterday events. HD stable. CW current tx plan. HALLIE RN
Anticipated Discharge: 24 - 48 hours
Subjective/Interval History
-
Date of Service: January 26, 2024
Objective Data
-
Vital Signs:
Vital Signs
Temp Pulse Resp BP Pulse Ox
98.1 F 120 20 106/74 99
01/26/24 11:57 01/26/24 14:30 01/26/24 14:30 01/26/24 08:00 01/26/24 10:00
I&O
01/25/24 01/26/24 01/27/24
06:59 06:59 06:59
Intake Total 480 / 480
Output Total 2400 / 2400 1900 / 1900
Balance -1920 / -1920 -1900 / -1900
Physical Exam
-
Respiratory: Non Labored Respirations; Negative Accessory Resp Muscle Use
Cardiac: Regular Rhythm and S1/S2
GI: Soft
Neuro: AO x 3; Negative Tremors
Psych: Calm
[2024-01-26] MEDS: SINEMET 25-100 2 TABLET TUBE ×2 (15:47→18:17)
[2024-01-26] MEDS: NON-FORMULARY ITEM 200 MG PO (15:49)
[2024-01-26 16:00] VITALS: BP 112/88
--- NOTE | 2024-01-26 16:06 | PTCARENOTE ---
Patient had dystonic episode which lasted for about an hour. IM benadryl administered as ordered. Respiratory tx given. Ice packs and repositioning, emotional support provided.
--- NOTE | 2024-01-26 17:42 | CM ---
Patient with Dx Mast Cell Activation Syndrome, dystonia/movement disorder. O2 2L. PICC in place. Receiving Benadryl solution Q6H via PEG, Benadryl IM Q4 prn MCAS reaction. Medsitter.
Phone call to Roslyn Ferreira, Dedicated Owner Operator [facility] ([place] [phone]); left message requesting callback today - no response.
Spoke with Swati, Card Player & Implant Coordinator, [facility] ([place] [phone], cell [phone]); she has an RN that is interested in the every other weekend night shifts, and this nurse has to be onboarded with them as a new hire. She will
call the other nurses that had agreed to shifts and ensure they are still available.
Plan follow up with Leni about approval for [facility], and if LPNs were approved.
Plan home with agencies for skilled RN or possibly TRANSPORTATION ECONOMICS TEACHER shift care.
[2024-01-26] MEDS: ZYRTEC 10 MG TUBE ×2 (18:18→21:18)
[2024-01-26 18:23] LABS: Glucose - Point of Care 87 mg/dl (70-99)
[2024-01-26 20:00] VITALS: BP 120/83
[2024-01-26] MEDS: FEOSOL 325 MG PO (21:20)
[2024-01-26 22:11] LABS: Glucose - Point of Care 106 mg/dl (70-99)
[2024-01-26] MEDS: FLUSH (NSS) 4 FLUSH IV (23:31)
[2024-01-27] VITALS: BP 103/75
[2024-01-27 04:00] VITALS: BP 105/76
[2024-01-27] MEDS: ATIVAN 1 MG SL ×4 (04:00→21:04)
[2024-01-27] MEDS: SINEMET 25-100 1.5 TABLET TUBE ×2 (06:03→10:45)
[2024-01-27] MEDS: LIORESAL 10 MG TUBE ×3 (06:04→21:06)
[2024-01-27] MEDS: BENADRYL SOLUTION 50 MG TUBE ×4 (06:04→23:27)
[2024-01-27 07:11] LABS: Glucose - Point of Care 103 mg/dl (70-99)
[2024-01-27] MEDS: PULMICORT 0.5 MG INH ×2 (07:38→19:22)
[2024-01-27] MEDS: DUONEB 3 ML INH ×4 (07:38→19:22)
[2024-01-27 08:00] VITALS: BP 115/84
[2024-01-27] MEDS: LIDOCAINE 4% PATCH 1 PATCH TOPICAL (08:30)
[2024-01-27] MEDS: LANTUS 0.05 UNITS SC (08:30)
[2024-01-27] MEDS: ZOFRAN 4 MG IV ×3 (08:31→23:33)
[2024-01-27] MEDS: GASTROCROM 300 MG PO ×4 (08:34→21:04)
[2024-01-27] MEDS: HYDREA 500 MG PO ×2 (08:35→21:00)
[2024-01-27] MEDS: TYLENOL 650 MG PO ×2 (08:36→17:24)
[2024-01-27] MEDS: DELTASONE 10 MG TUBE ×2 (08:36→20:59)
[2024-01-27] MEDS: VITAMIN B1 100 MG TUBE (08:36)
[2024-01-27] MEDS: SUBUTEX 2 MG SL ×4 (08:36→21:06)
[2024-01-27] MEDS: PEPCID 40 MG PO ×2 (08:37→21:01)
[2024-01-27] MEDS: ELIQUIS 5 MG PO ×2 (08:37→21:00)
[2024-01-27] MEDS: CLARITIN 10 MG TUBE (08:37)
[2024-01-27] MEDS: INDERAL 10 MG TUBE ×3 (08:38→21:06)
[2024-01-27] MEDS: NON-FORMULARY ITEM 1 MG PO ×2 (08:39→21:03)
[2024-01-27] MEDS: NON-FORMULARY ITEM 1 UNIT PO ×2 (08:39→21:03)
[2024-01-27] MEDS: NON-FORMULARY ITEM 80 MG PO (08:40)
[2024-01-27] MEDS: MIRALAX TUBE (08:41)
[2024-01-27] MEDS: NOVOLOG FLEXPEN-LOW RESISTANCE SC ×3 (08:41→18:35)
[2024-01-27] MEDS: COLACE PO ×2 (08:41→20:59)
[2024-01-27] MEDS: ZADITOR 1 DROP BOTH EYES ×2 (08:42→21:04)
[2024-01-27] MEDS: DESENEX/MITRAZOL/ZEASORB 1 APPLIC TOPICAL ×2 (08:42→21:00)
[2024-01-27] MEDS: NOVOLOG FLEXPEN SC ×3 (08:43→18:35)
--- NOTE | 2024-01-27 10:00 | W.PN.HOSP.TC ---
Today's Communication/Plan
-
Has been off IV Benadryl including rescue dose
Ongoing disposition efforts
Assessment / Plan
Assessment / Plan
Conditions prior to admission:
1. Mast cell activation syndrome.
2. Chronic dystonic reaction.
3. Orthostatic hypotension with postural orthostatic and tachycardia syndrome.
4. Dopa sensitive dystonia.
5. Steroid-induced diabetes.
6. Prior history of deep venous thrombosis and pulmonary embolism.
7. Chronic pain syndrome.
8. Migraine headaches.
9. Gastroesophageal reflux disease.
10. Benzodiazepine and opiate dependence.
11. Restless legs syndrome.
12. Insomnia.
13. History of vocal cord dysfunction.
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
15. Gastroparesis.
16. 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
17. 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
33yo F with PMHx of GERD, dystonia, allergic asthma, migraine, chronic hypoxia on 2L O2, steroid induced DM, Esophageal dysmotility on PEG, JUANJOSE, chronic pain syndrome with opioid dependency, mast cell syndrome on benadryl drip and steroids came to
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 Had PICC line replaced and completed cipro as per ID. Due to concern for PEG tube malfunction had
it replaced wice on 09/22 and 11/04. Continued on benadryl drip 2/2 hx of recurrent anaphylaxis 2/2 mast cell activation syndrome and weaned off it. Had multiple multidisciplianry meetings in attempts to minimize IV medication. PO Benadryl is continued
with recommendation to increase to max 300mg/day as needed.
Had fall on 10/03 and found Fx of 6th and 7th ribs without complications.
Attempt to transfer to [facility] (where patient was getting all her care) failed since receiving hospital administration was concerned for too high complexity of the patient
Ongoing disposition attempts per CM for home care.
A/P:
#Bacteremia 2/2 CLABSI
Completed cipro on 10/06/23
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
follows with Dr. Lizabeth Villanueva at [facility] hematology.
Continue Ativan
cont Gleevac, steroids
Levalbuterol as needed
Continue carbidopa levodopa
prednisone continued
Outpatient IV Benadryl drip at 15 mg/hr upon presentation.
Has been off IV Benadryl drip.
Rescue Benadryl changed to intramuscular route.
Increase enteral Benadryl to 50 mg every 6 hours.
#Dystonia
Cont baclofen and synemet
#Thrush
Completed clotrimasole troches
#GERD
#Chronic pain syndrome withn opioid dependency
#Sinus tachycardia, chronic
#Esophageal dysmotility
#Gastroparesis on PEG
#RLS
#Hx of DVT
#Allergy induced asthma with chronic hypoxic respiratory failure on 2L home O2
#Migraine d/o
Cont home meds
#Fall with uncomplicated 6,7 rib Fx
on 09/22
#DM steroid induced
Accuchecks
Insulin
DM diet
#Iatrogenic immunosuppression
2/2 steroids
reverse isolation
FULL/Eliquis
Disposition: Discussion with primary candle molder machine Dr. Ethan Villanueva on 10/09. Discussed possibility of attempting weaning Benadryl drip likely could be done as outpatient. With current family social situation, unfortunately there is no options
for disposition other than home on IV infusion. Possibility of a transfer to [facility] discussed as well, although according to Dr. Villanueva hospital administration declined services due to complexity. Also discussed possibility of
transfer to tertiary center ([facility] declined in the past).
10/[address] [facility]
Complex patient. Attempt to wean off Benadryl drip over the last 2 weeks with persistent dystonic episodes.
While patient is relatively stable with her current condition, given complex clinical picture requiring multi disciplinary approach not limited to medicine, hematology, allergology, as well as neuropsychiatric assessment, patient would be better
served at a tertiary facility. Patient was accepted to [facility] for transfer, but hospital administration denied her transfer due to complexity (discussed with patient who is aware).
01/23 - No new complaints. Remains stable. cw current plan
01/24 - No recurrence of yesterday events. HD stable. CW current tx plan. HALLIE RN
Anticipated Discharge: 24 - 48 hours
Subjective/Interval History
-
Date of Service: January 27, 2024
Objective Data
-
Vital Signs:
Vital Signs
Temp Pulse Resp BP Pulse Ox
98.4 F 107 16 105/76 97
01/27/24 07:29 01/27/24 07:40 01/27/24 07:40 01/27/24 04:00 01/27/24 07:40
I&O
01/26/24 01/27/24 01/28/24
06:59 06:59 06:59
Intake Total 840 / 840
Output Total 1900 / 1900 2560 / 2560
Balance -1900 / -1900 -1720 / -1720
Physical Exam
-
Respiratory: Non Labored Respirations; Negative Accessory Resp Muscle Use
Cardiac: Regular Rhythm and S1/S2
GI: Soft
Neuro: AO x 3; Negative Tremors
Psych: Calm
[2024-01-27] MEDS: BENADRYL 25 MG IM ×2 (10:45→16:29)
[2024-01-27 12:00] VITALS: BP 114/72
[2024-01-27 12:02] LABS: Glucose - Point of Care 128 mg/dl (70-99)
[2024-01-27] MEDS: NOVOLOG FLEXPEN 3 UNITS SC (14:24)
[2024-01-27] MEDS: SINEMET 25-100 2 TABLET TUBE ×2 (14:25→17:25)
[2024-01-27] MEDS: NON-FORMULARY ITEM 200 MG PO (14:26)
[2024-01-27 16:00] VITALS: BP 125/91
[2024-01-27] MEDS: ZYRTEC 10 MG TUBE ×2 (16:35→21:05)
--- NOTE | 2024-01-27 17:30 | PTCARENOTE ---
Had 2 dystonic episodes today, lasting approx 45minutes each. see MAR for PRN med administration.
[2024-01-27 18:12] LABS: Glucose - Point of Care 76 mg/dl (70-99)
[2024-01-27 20:00] VITALS: BP 113/75
[2024-01-27] MEDS: FEOSOL 325 MG PO (21:02)
[2024-01-27 22:11] LABS: Glucose - Point of Care 111 mg/dl (70-99)
[2024-01-28] VITALS (7 sets, daily range): BP systolic 97–123; BP diastolic 59–107
--- NOTE | 2024-01-28 01:05 | PTCARENOTE ---
resumed care of pt sitting up in bed AAOx3. HR in the low 100's ST on the monitor. POX 96% on 2LO2 NC. Lungs clear, dec @ bases. + bowel, round obese abd. G/J tube in place, G tube to gravity bag, J tube clamped. Pure wick in place draining yellow
urine. Pt assisted getting washed up, sarai care provided. Teeth brushed. Left tripple picc in place. Pt denies any complaints at this time. Medsitter in place. Will continue to monitor.
[2024-01-28] MEDS: ATIVAN 1 MG SL ×4 (04:04→21:39)
[2024-01-28] MEDS: SINEMET 25-100 1.5 TABLET TUBE ×2 (05:47→10:12)
[2024-01-28] MEDS: BENADRYL SOLUTION 50 MG TUBE ×4 (05:48→23:00)
[2024-01-28] MEDS: LIORESAL 10 MG TUBE ×3 (05:48→23:00)
--- NOTE | 2024-01-28 06:33 | PTCARENOTE ---
Pt slept well overnight. No dystonic episodes overnight. Vital signs stable. Will continue to monitor.
[2024-01-28] MEDS: GASTROCROM 300 MG PO ×4 (07:54→21:42)
[2024-01-28] MEDS: PULMICORT 0.5 MG INH ×2 (08:07→19:30)
[2024-01-28] MEDS: DUONEB 3 ML INH ×3 (08:07→19:30)
[2024-01-28 08:17] LABS: Glucose - Point of Care 88 mg/dl (70-99)
[2024-01-28] MEDS: NOVOLOG FLEXPEN SC ×2 (08:18→12:38)
[2024-01-28] MEDS: NOVOLOG FLEXPEN-LOW RESISTANCE SC ×3 (08:18→18:03)
[2024-01-28] MEDS: ZOFRAN 4 MG IV ×3 (10:08→23:02)
[2024-01-28] MEDS: TYLENOL 650 MG PO ×2 (10:08→23:01)
[2024-01-28] MEDS: ELIQUIS 5 MG PO ×2 (10:09→19:51)
[2024-01-28] MEDS: COLACE 100 MG PO ×2 (10:09→19:50)
[2024-01-28] MEDS: ZADITOR 1 DROP BOTH EYES ×2 (10:09→19:54)
[2024-01-28] MEDS: PEPCID 40 MG PO ×2 (10:09→19:50)
[2024-01-28] MEDS: CLARITIN 10 MG TUBE (10:09)
[2024-01-28] MEDS: SUBUTEX 2 MG SL ×4 (10:09→21:39)
[2024-01-28] MEDS: DELTASONE 10 MG TUBE ×2 (10:10→19:51)
[2024-01-28] MEDS: LANTUS 0.05 UNITS SC (10:10)
[2024-01-28] MEDS: LIDOCAINE 4% PATCH 1 PATCH TOPICAL (10:10)
[2024-01-28] MEDS: HYDREA 500 MG PO ×2 (10:11→19:51)
[2024-01-28] MEDS: INDERAL 10 MG TUBE ×3 (10:11→23:00)
[2024-01-28] MEDS: DESENEX/MITRAZOL/ZEASORB 1 APPLIC TOPICAL ×2 (10:11→19:54)
[2024-01-28] MEDS: VITAMIN B1 100 MG TUBE (10:12)
[2024-01-28] MEDS: MIRALAX TUBE (10:12)
[2024-01-28] MEDS: NON-FORMULARY ITEM 80 MG PO (10:14)
[2024-01-28] MEDS: NON-FORMULARY ITEM 1 MG PO ×2 (10:15→19:52)
[2024-01-28] MEDS: NON-FORMULARY ITEM 1 UNIT PO ×2 (10:15→19:53)
[2024-01-28 12:44] LABS: Glucose - Point of Care 105 mg/dl (70-99)
[2024-01-28] MEDS: NON-FORMULARY ITEM 200 MG PO (14:12)
[2024-01-28] MEDS: SINEMET 25-100 2 TABLET TUBE ×2 (14:12→18:03)
[2024-01-28] MEDS: BENADRYL 25 MG IM (15:02)
--- NOTE | 2024-01-28 15:43 | CM ---
Addendum entered by Luci Garcia RN 01/28/24 16:08:
[facility] updated the patient with her progress on securing nurses & caregivers.
Original Note:
Patient with Dx Mast Cell Activation Syndrome, dystonia/movement disorder. O2 2L. PICC in place. Receiving Benadryl solution Q6H via PEG, Benadryl IM Q4 prn MCAS reaction. Medsitter.
Spoke with Roslyn Ferreira, Director Of Distribution [facility] ([place] [phone]); she has reached out to [employer] [facility] agencies to get update on the nurses for shift care and non-skilled caregivers. [facility] has been approved.
LPNs were approved as needed.
Spoke with Swati, Pillowcase Turner & Saw Maker, [facility] ([place] [phone], cell [phone]); they have RNs covered for all shifts including weekends except 7p - 7a Wed, Fri 7a - 7p. [facility] has RN for 7a-11p Sat/Sun every week.
Swati is aware [facility] is allowing LPNs as needed. She is attempting to line up a non-skilled caregiver for daytime hours.
Plan home with agencies for skilled nurse shift care, and daytime non-skilled caregiver.
--- NOTE | 2024-01-28 15:51 | PTCARENOTE ---
Pt with one dystonic episode this afternoon approx 15:00. IM Benadryl given left deltoid. Ice packs, neb tx, emotional support provided.
[2024-01-28 17:37] LABS: Glucose - Point of Care 140 mg/dl (70-99)
--- NOTE | 2024-01-28 17:46 | W.PN.HOSP.TC ---
Today's Communication/Plan
-
Discharge planning
Patient had been medically optimized for discharge.
Assessment / Plan
Assessment / Plan
Conditions prior to admission:
1. Mast cell activation syndrome.
2. Chronic dystonic reaction.
3. Orthostatic hypotension with postural orthostatic and tachycardia syndrome.
4. Dopa sensitive dystonia.
5. Steroid-induced diabetes.
6. Prior history of deep venous thrombosis and pulmonary embolism.
7. Chronic pain syndrome.
8. Migraine headaches.
9. Gastroesophageal reflux disease.
10. Benzodiazepine and opiate dependence.
11. Restless legs syndrome.
12. Insomnia.
13. History of vocal cord dysfunction.
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
15. Gastroparesis.
16. 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
17. 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
33yo F with PMHx of GERD, dystonia, allergic asthma, migraine, chronic hypoxia on 2L O2, steroid induced DM, Esophageal dysmotility on PEG, JUANJOSE, chronic pain syndrome with opioid dependency, mast cell syndrome on benadryl drip and steroids came to
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 Had PICC line replaced and completed cipro as per ID. Due to concern for PEG tube malfunction had
it replaced wice on 09/22 and 11/04. Continued on benadryl drip 2/2 hx of recurrent anaphylaxis 2/2 mast cell activation syndrome and weaned off it. Had multiple multidisciplianry meetings in attempts to minimize IV medication. PO Benadryl is continued
with recommendation to increase to max 300mg/day as needed.
Had fall on 10/03 and found Fx of 6th and 7th ribs without complications.
Attempt to transfer to [facility] (where patient was getting all her care) failed since receiving hospital administration was concerned for too high complexity of the patient
Ongoing disposition attempts per CM for home care.
A/P:
#Bacteremia 2/2 CLABSI
Completed cipro on 10/06/23
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
follows with Dr. Lizabeth Villanueva at [facility] hematology.
Continue Ativan
cont Gleevac, steroids
Levalbuterol as needed
Continue carbidopa levodopa
prednisone continued
Outpatient IV Benadryl drip at 15 mg/hr upon presentation.
Has been off IV Benadryl drip.
Rescue Benadryl changed to intramuscular route.
Increase enteral Benadryl to 50 mg every 6 hours.
#Dystonia
Cont baclofen and synemet
#Thrush
Completed clotrimasole troches
#GERD
#Chronic pain syndrome withn opioid dependency
#Sinus tachycardia, chronic
#Esophageal dysmotility
#Gastroparesis on PEG
#RLS
#Hx of DVT
#Allergy induced asthma with chronic hypoxic respiratory failure on 2L home O2
#Migraine d/o
Cont home meds
#Fall with uncomplicated 6,7 rib Fx
on 09/22
#DM steroid induced
Accuchecks
Insulin
DM diet
#Iatrogenic immunosuppression
2/2 steroids
reverse isolation
FULL/Eliquis
Disposition: Discussion with primary post tronic machine operator Dr. Ethan Villanueva on 10/09. Discussed possibility of attempting weaning Benadryl drip likely could be done as outpatient. With current family social situation, unfortunately there is no options
for disposition other than home on IV infusion. Possibility of a transfer to [facility] discussed as well, although according to Dr. Villanueva hospital administration declined services due to complexity. Also discussed possibility of
transfer to tertiary center ([facility] declined in the past).
10/[address] Villanueva over the phone as well as [facility] transfer center.
Complex patient. Attempt to wean off Benadryl drip over the last 2 weeks with persistent dystonic episodes.
While patient is relatively stable with her current condition, given complex clinical picture requiring multi disciplinary approach not limited to medicine, hematology, allergology, as well as neuropsychiatric assessment, patient would be better
served at a tertiary facility. Patient was accepted to [facility] for transfer, but hospital administration denied her transfer due to complexity (discussed with patient who is aware).
01/23 - No new complaints. Remains stable. cw current plan
01/24 - No recurrence of yesterday events. HD stable. CW current tx plan. HALLIE RN
Anticipated Discharge: > 48 hours
Subjective/Interval History
-
Date of Service: January 28, 2024
Objective Data
-
Vital Signs:
Vital Signs
Temp Pulse Resp BP Pulse Ox
98.8 F 140 18 121/75 97
01/28/24 15:19 01/28/24 15:25 01/28/24 15:25 01/28/24 10:11 01/28/24 15:25
I&O
01/27/24 01/28/24 01/29/24
06:59 06:59 06:59
Intake Total 840 / 840
Output Total 2560 / 2560 2750 / 2750 1200 / 1200
Balance -1720 / -1720 -2750 / -2750 -1200 / -1200
Physical Exam
-
Respiratory: Non Labored Respirations; Negative Accessory Resp Muscle Use
Cardiac: Regular Rhythm and S1/S2
GI: Soft
Neuro: AO x 3; Negative Tremors
Psych: Calm
[2024-01-28] MEDS: ZYRTEC 10 MG TUBE ×2 (17:59→23:00)
[2024-01-28] MEDS: NOVOLOG FLEXPEN 3 UNITS SC (18:03)
[2024-01-28] MEDS: FEOSOL 325 MG PO (21:39)
[2024-01-29] VITALS (8 sets, daily range): BP systolic 104–131; BP diastolic 72–99; PULSE 117; O2SAT 91
[2024-01-29] MEDS: ATIVAN 1 MG SL ×4 (04:10→21:38)
[2024-01-29] MEDS: LIORESAL 10 MG TUBE ×3 (05:42→22:59)
[2024-01-29] MEDS: BENADRYL SOLUTION 50 MG TUBE ×4 (05:42→23:00)
[2024-01-29] MEDS: SINEMET 25-100 1.5 TABLET TUBE ×2 (05:42→10:07)
--- NOTE | 2024-01-29 06:43 | PTCARENOTE ---
Pt did not have any dystonic episodes overnight. Did request zofran and tylenol, which was provided per JUL. Pw remains in place. Hygiene care performed. Call sanchez within reach.
[2024-01-29] MEDS: PULMICORT 0.5 MG INH ×2 (07:30→20:53)
[2024-01-29] MEDS: DUONEB 3 ML INH ×2 (07:30→20:55)
[2024-01-29 08:22] LABS: Glucose - Point of Care 108 mg/dl (70-99)
[2024-01-29] MEDS: ZOFRAN 4 MG IV ×2 (09:38→16:07)
[2024-01-29] MEDS: NOVOLOG FLEXPEN-LOW RESISTANCE SC ×3 (09:39→17:50)
[2024-01-29] MEDS: GASTROCROM 300 MG PO ×4 (09:39→21:38)
[2024-01-29] MEDS: NOVOLOG FLEXPEN SC (09:40)
[2024-01-29] MEDS: INDERAL 10 MG TUBE ×3 (09:40→22:59)
[2024-01-29] MEDS: PEPCID 40 MG PO ×2 (09:44→19:35)
[2024-01-29] MEDS: COLACE 100 MG PO ×2 (09:44→19:34)
[2024-01-29] MEDS: ELIQUIS 5 MG PO ×2 (09:44→19:35)
[2024-01-29] MEDS: CLARITIN 10 MG TUBE (09:44)
[2024-01-29] MEDS: VITAMIN B1 100 MG TUBE (09:45)
[2024-01-29] MEDS: SUBUTEX 2 MG SL ×4 (09:45→21:38)
[2024-01-29] MEDS: DELTASONE 10 MG TUBE ×2 (09:45→19:35)
[2024-01-29] MEDS: LIDOCAINE 4% PATCH 1 PATCH TOPICAL (09:46)
[2024-01-29] MEDS: HYDREA 500 MG PO ×2 (09:46→19:35)
[2024-01-29] MEDS: DESENEX/MITRAZOL/ZEASORB 1 APPLIC TOPICAL ×2 (09:46→19:37)
[2024-01-29] MEDS: MIRALAX TUBE (09:47)
[2024-01-29] MEDS: LANTUS 0.05 UNITS SC (09:47)
[2024-01-29] MEDS: NON-FORMULARY ITEM 1 MG PO ×3 (09:48→19:36)
[2024-01-29] MEDS: NON-FORMULARY ITEM 1 UNIT PO ×3 (09:49→19:36)
[2024-01-29] MEDS: ZADITOR 1 DROP BOTH EYES ×2 (09:51→19:38)
[2024-01-29] MEDS: BENADRYL 25 MG IM ×2 (11:54→17:19)
[2024-01-29 12:11] LABS: Glucose - Point of Care 104 mg/dl (70-99)
[2024-01-29] MEDS: MYCELEX TROCHE 10 MG PO ×3 (12:42→21:39)
[2024-01-29] MEDS: NOVOLOG FLEXPEN 3 UNITS SC ×2 (13:44→19:39)
[2024-01-29] MEDS: SINEMET 25-100 2 TABLET TUBE ×2 (13:45→17:22)
[2024-01-29] MEDS: NON-FORMULARY ITEM 200 MG PO (13:46)
--- NOTE | 2024-01-29 16:36 | CM ---
Patient with Dx Mast Cell Activation Syndrome, dystonia/movement disorder. O2 1L. PICC in place. Receiving Benadryl solution Q6H via PEG, Benadryl IM Q4 prn MCAS reaction. Medsitter.
Spoke with Swati, French Edge Operator & Wagon Person, [facility] ([place] [phone], cell [phone]);
there has been no progress with RN coverage for the open hrs on Fri/ Fri.
She no longer has a non-skilled caregiver available.
Swati will check tomorrow if they have PT available.
Phone call to Roslyn Ferreira, Ultrasound Tester [facility] ([place] [phone]);
left message informing her no progress with full RN shift coverage and non-skilled caregiver [facility].
left message requesting if CM can make referrals to Caregiver agencies in the [place] area and Leni can do contract with them.
Case discussed with Brigida Leavitt CM Director.
Plan home with agencies for skilled nurse shift care, and daytime non-skilled caregiver.
[2024-01-29] MEDS: ZYRTEC 10 MG TUBE ×2 (17:22→22:59)
[2024-01-29 17:50] LABS: Glucose - Point of Care 113 mg/dl (70-99)
[2024-01-29] MEDS: MYCELEX TROCHE PO (19:19)
[2024-01-29] MEDS: FEOSOL 325 MG PO (21:38)
[2024-01-29 22:17] LABS: Glucose - Point of Care 111 mg/dl (70-99)
[2024-01-30] VITALS (7 sets, daily range): BP systolic 99–121; BP diastolic 64–94
[2024-01-30] MEDS: ATIVAN 1 MG SL ×4 (04:58→21:26)
[2024-01-30] MEDS: LIORESAL 10 MG TUBE ×3 (05:01→22:56)
[2024-01-30] MEDS: BENADRYL SOLUTION 50 MG TUBE ×4 (05:01→23:00)
[2024-01-30] MEDS: SINEMET 25-100 1.5 TABLET TUBE ×2 (05:01→09:35)
--- NOTE | 2024-01-30 06:47 | PTCARENOTE ---
Pt resting comfortably in bed. Assessment as documented, VSS. Did not have an episode of dystonia throughout the night. Call sanchez within reach.
[2024-01-30] MEDS: DUONEB 3 ML INH ×2 (08:19→19:29)
[2024-01-30] MEDS: PULMICORT 0.5 MG INH ×2 (08:20→19:28)
[2024-01-30] MEDS: PULMICORT INH (08:23)
[2024-01-30] MEDS: HYDREA 500 MG PO ×2 (09:33→19:47)
[2024-01-30] MEDS: VITAMIN B1 100 MG TUBE (09:33)
[2024-01-30] MEDS: COLACE 100 MG PO ×2 (09:34→19:47)
[2024-01-30] MEDS: MYCELEX TROCHE 10 MG PO ×5 (09:34→21:26)
[2024-01-30] MEDS: CLARITIN 10 MG TUBE (09:34)
[2024-01-30] MEDS: PEPCID 40 MG PO ×2 (09:34→19:47)
[2024-01-30] MEDS: GASTROCROM 300 MG PO ×4 (09:36→21:26)
[2024-01-30] MEDS: DELTASONE 10 MG TUBE ×2 (09:36→19:48)
[2024-01-30] MEDS: ELIQUIS 5 MG PO ×2 (09:36→19:48)
[2024-01-30] MEDS: INDERAL 10 MG TUBE ×3 (09:37→22:56)
[2024-01-30] MEDS: SUBUTEX 2 MG SL ×4 (09:37→21:27)
[2024-01-30] MEDS: MIRALAX TUBE (09:38)
[2024-01-30] MEDS: LIDOCAINE 4% PATCH 1 PATCH TOPICAL (09:38)
[2024-01-30] MEDS: ZOFRAN 4 MG IV ×2 (09:40→15:56)
[2024-01-30] MEDS: ZADITOR 1 DROP BOTH EYES ×2 (09:40→19:49)
[2024-01-30] MEDS: NON-FORMULARY ITEM 1 UNIT PO ×2 (09:41→19:50)
[2024-01-30] MEDS: DESENEX/MITRAZOL/ZEASORB 1 APPLIC TOPICAL ×2 (09:42→19:50)
[2024-01-30] MEDS: NON-FORMULARY ITEM 80 MG PO (09:43)
[2024-01-30] MEDS: NON-FORMULARY ITEM 1 MG PO ×2 (09:44→19:49)
[2024-01-30] MEDS: LANTUS 0.05 UNITS SC (10:01)
[2024-01-30] MEDS: NOVOLOG FLEXPEN-LOW RESISTANCE SC ×3 (10:01→17:56)
[2024-01-30] MEDS: NOVOLOG FLEXPEN SC (10:01)
[2024-01-30 10:12] LABS: Glucose - Point of Care 88 mg/dl (70-99)
--- NOTE | 2024-01-30 11:21 | VATNOTE ---
Discussed need for PICC line with PCN, will check with MD to see what plan is and whether PICC should be discontinued.
--- NOTE | 2024-01-30 11:45 | W.PN.HOSP.TC ---
Today's Communication/Plan
-
Ongoing disposition efforts
Assessment / Plan
Assessment / Plan
Conditions prior to admission:
1. Mast cell activation syndrome.
2. Chronic dystonic reaction.
3. Orthostatic hypotension with postural orthostatic and tachycardia syndrome.
4. Dopa sensitive dystonia.
5. Steroid-induced diabetes.
6. Prior history of deep venous thrombosis and pulmonary embolism.
7. Chronic pain syndrome.
8. Migraine headaches.
9. Gastroesophageal reflux disease.
10. Benzodiazepine and opiate dependence.
11. Restless legs syndrome.
12. Insomnia.
13. History of vocal cord dysfunction.
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
15. Gastroparesis.
16. 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
17. 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
33yo F with PMHx of GERD, dystonia, allergic asthma, migraine, chronic hypoxia on 2L O2, steroid induced DM, Esophageal dysmotility on PEG, JUANJOSE, chronic pain syndrome with opioid dependency, mast cell syndrome on benadryl drip and steroids came to
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 Had PICC line replaced and completed cipro as per ID. Due to concern for PEG tube malfunction had
it replaced wice on 09/22 and 11/04. Continued on benadryl drip 2/2 hx of recurrent anaphylaxis 2/2 mast cell activation syndrome and weaned off it. Had multiple multidisciplianry meetings in attempts to minimize IV medication. PO Benadryl is continued
with recommendation to increase to max 300mg/day as needed.
Had fall on 10/03 and found Fx of 6th and 7th ribs without complications.
Attempt to transfer to [facility] (where patient was getting all her care) failed since receiving hospital administration was concerned for too high complexity of the patient
Ongoing disposition attempts per CM for home care.
A/P:
#Bacteremia 2/2 CLABSI
Completed cipro on 10/06/23
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
follows with Dr. Lizabeth Villanueva at [facility] hematology.
Continue Ativan
cont Gleevac, steroids
Levalbuterol as needed
Continue carbidopa levodopa
prednisone continued
Outpatient IV Benadryl drip at 15 mg/hr upon presentation.
Has been off IV Benadryl drip.
Rescue Benadryl changed to intramuscular route.
Increase enteral Benadryl to 50 mg every 6 hours.
#Dystonia
Cont baclofen and synemet
#Thrush
Completed clotrimasole troches
#GERD
#Chronic pain syndrome withn opioid dependency
#Sinus tachycardia, chronic
#Esophageal dysmotility
#Gastroparesis on PEG
#RLS
#Hx of DVT
#Allergy induced asthma with chronic hypoxic respiratory failure on 2L home O2
#Migraine d/o
Cont home meds
#Fall with uncomplicated 6,7 rib Fx
on 09/22
#DM steroid induced
Accuchecks
Insulin
DM diet
#Iatrogenic immunosuppression
2/2 steroids
reverse isolation
FULL/Eliquis
Disposition: Discussion with primary planning lead Dr. Ethan Villanueva on 10/09. Discussed possibility of attempting weaning Benadryl drip likely could be done as outpatient. With current family social situation, unfortunately there is no options
for disposition other than home on IV infusion. Possibility of a transfer to [facility] discussed as well, although according to Dr. Villanueva hospital administration declined services due to complexity. Also discussed possibility of
transfer to tertiary center ([facility] declined in the past).
10/[address] Villanueva over the phone as well as [facility] transfer center.
Complex patient. Attempt to wean off Benadryl drip over the last 2 weeks with persistent dystonic episodes.
While patient is relatively stable with her current condition, given complex clinical picture requiring multi disciplinary approach not limited to medicine, hematology, allergology, as well as neuropsychiatric assessment, patient would be better
served at a tertiary facility. Patient was accepted to [facility] for transfer, but hospital administration denied her transfer due to complexity (discussed with patient who is aware).
01/23 - No new complaints. Remains stable. cw current plan
01/24 - No recurrence of yesterday events. HD stable. CW current tx plan. DW RN
Anticipated Discharge: > 48 hours
Subjective/Interval History
-
Date of Service: January 30, 2024
Objective Data
-
Vital Signs:
Vital Signs
Temp Pulse Resp BP Pulse Ox
97.4 F 88 18 99/72 95
01/30/24 11:15 01/30/24 08:25 01/30/24 08:25 01/30/24 04:00 01/30/24 08:25
I&O
01/29/24 01/30/24 01/31/24
06:59 06:59 06:59
Output Total 2300 / 2300 500 / 500 1000 / 1000
Balance -2300 / -2300 -500 / -500 -1000 / -1000
Physical Exam
-
Respiratory: Non Labored Respirations; Negative Accessory Resp Muscle Use
Cardiac: Regular Rhythm and S1/S2
GI: Soft
Neuro: AO x 3; Negative Tremors
Psych: Calm
[2024-01-30] MEDS: NOVOLOG FLEXPEN 3 UNITS SC ×2 (12:08→17:55)
[2024-01-30] MEDS: TYLENOL 650 MG PO (12:09)
[2024-01-30 12:18] LABS: Glucose - Point of Care 91 mg/dl (70-99)
[2024-01-30] MEDS: BENADRYL 25 MG IM (13:21)
[2024-01-30] MEDS: SINEMET 25-100 2 TABLET TUBE ×2 (13:32→17:54)
[2024-01-30] MEDS: NON-FORMULARY ITEM 200 MG PO (13:33)
--- NOTE | 2024-01-30 16:23 | PTCARENOTE ---
Patient AAOx3. 1 episode today, lasting less than an hour. See PRNs. VSS. Closely monitoring.
[2024-01-30] MEDS: ZYRTEC 10 MG TUBE ×2 (17:55→22:56)
[2024-01-30 17:56] LABS: Glucose - Point of Care 90 mg/dl (70-99)
[2024-01-30] MEDS: FEOSOL 325 MG PO (21:26)
[2024-01-30 21:50] LABS: Glucose - Point of Care 117 mg/dl (70-99)
[2024-01-31] VITALS: BP 106/66
[2024-01-31 04:00] VITALS: BP 102/73
[2024-01-31] MEDS: ATIVAN 1 MG SL ×4 (04:57→21:05)
[2024-01-31] MEDS: LIORESAL 10 MG TUBE ×3 (05:00→21:12)
[2024-01-31] MEDS: BENADRYL SOLUTION 50 MG TUBE ×4 (05:00→23:12)
[2024-01-31] MEDS: SINEMET 25-100 1.5 TABLET TUBE ×2 (05:00→09:21)
[2024-01-31 08:00] VITALS: BP 116/78
[2024-01-31] MEDS: PULMICORT 0.5 MG INH ×2 (08:01→19:48)
[2024-01-31 09:11] LABS: Glucose - Point of Care 85 mg/dl (70-99)
[2024-01-31] MEDS: GASTROCROM 300 MG PO ×4 (09:17→22:52)
[2024-01-31] MEDS: NOVOLOG FLEXPEN SC (09:17)
[2024-01-31] MEDS: LIDOCAINE 4% PATCH 1 PATCH TOPICAL (09:17)
[2024-01-31] MEDS: NOVOLOG FLEXPEN-LOW RESISTANCE SC ×3 (09:17→17:19)
[2024-01-31] MEDS: ZOFRAN 4 MG IV ×3 (09:18→21:23)
[2024-01-31] MEDS: LANTUS 0.05 UNITS SC (09:18)
[2024-01-31] MEDS: COLACE 100 MG PO ×2 (09:19→22:51)
[2024-01-31] MEDS: SUBUTEX 2 MG SL ×4 (09:19→21:13)
[2024-01-31] MEDS: MYCELEX TROCHE 10 MG PO ×5 (09:20→22:51)
[2024-01-31] MEDS: VITAMIN B1 100 MG TUBE (09:20)
[2024-01-31] MEDS: INDERAL 10 MG TUBE ×3 (09:20→21:12)
[2024-01-31] MEDS: ELIQUIS 5 MG PO ×2 (09:21→22:51)
[2024-01-31] MEDS: DELTASONE 10 MG TUBE ×2 (09:21→21:11)
[2024-01-31] MEDS: CLARITIN 10 MG TUBE (09:21)
[2024-01-31] MEDS: PEPCID 40 MG PO ×2 (09:21→22:51)
[2024-01-31] MEDS: HYDREA 500 MG PO ×2 (09:22→22:51)
[2024-01-31] MEDS: ZADITOR 1 DROP BOTH EYES ×2 (09:23→21:12)
[2024-01-31] MEDS: DESENEX/MITRAZOL/ZEASORB 1 APPLIC TOPICAL ×2 (09:23→21:11)
[2024-01-31] MEDS: NON-FORMULARY ITEM 80 MG PO (09:24)
[2024-01-31] MEDS: NON-FORMULARY ITEM 1 MG PO ×2 (09:25→23:06)
[2024-01-31] MEDS: MIRALAX TUBE (09:26)
[2024-01-31] MEDS: NON-FORMULARY ITEM 1 UNIT PO ×2 (09:27→23:06)
--- NOTE | 2024-01-31 09:28 | W.PN.HOSP.TC ---
Today's Communication/Plan
-
Discharge planning
Assessment / Plan
Assessment / Plan
Conditions prior to admission:
1. Mast cell activation syndrome.
2. Chronic dystonic reaction.
3. Orthostatic hypotension with postural orthostatic and tachycardia syndrome.
4. Dopa sensitive dystonia.
5. Steroid-induced diabetes.
6. Prior history of deep venous thrombosis and pulmonary embolism.
7. Chronic pain syndrome.
8. Migraine headaches.
9. Gastroesophageal reflux disease.
10. Benzodiazepine and opiate dependence.
11. Restless legs syndrome.
12. Insomnia.
13. History of vocal cord dysfunction.
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
15. Gastroparesis.
16. 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
17. 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
33yo F with PMHx of GERD, dystonia, allergic asthma, migraine, chronic hypoxia on 2L O2, steroid induced DM, Esophageal dysmotility on PEG, JUANJOSE, chronic pain syndrome with opioid dependency, mast cell syndrome on benadryl drip and steroids came to
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 Had PICC line replaced and completed cipro as per ID. Due to concern for PEG tube malfunction had
it replaced wice on 09/22 and 11/04. Continued on benadryl drip 2/2 hx of recurrent anaphylaxis 2/2 mast cell activation syndrome and weaned off it. Had multiple multidisciplianry meetings in attempts to minimize IV medication. PO Benadryl is continued
with recommendation to increase to max 300mg/day as needed.
Had fall on 10/03 and found Fx of 6th and 7th ribs without complications.
Attempt to transfer to [facility] (where patient was getting all her care) failed since receiving hospital administration was concerned for too high complexity of the patient
Ongoing disposition attempts per CM for home care.
A/P:
#Bacteremia 2/2 CLABSI
Completed cipro on 10/06/23
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
follows with Dr. Lizabeth Villanueva at [facility] hematology.
Continue Ativan
cont Gleevac, steroids
Levalbuterol as needed
Continue carbidopa levodopa
prednisone continued
Outpatient IV Benadryl drip at 15 mg/hr upon presentation.
Has been off IV Benadryl drip.
Rescue Benadryl changed to intramuscular route.
Increase enteral Benadryl to 50 mg every 6 hours.
#Dystonia
Cont baclofen and synemet
#Thrush
Completed clotrimasole troches
#GERD
#Chronic pain syndrome withn opioid dependency
#Sinus tachycardia, chronic
#Esophageal dysmotility
#Gastroparesis on PEG
#RLS
#Hx of DVT
#Allergy induced asthma with chronic hypoxic respiratory failure on 2L home O2
#Migraine d/o
Cont home meds
#Fall with uncomplicated 6,7 rib Fx
on 09/22
#DM steroid induced
Accuchecks
Insulin
DM diet
#Iatrogenic immunosuppression
2/2 steroids
reverse isolation
FULL/Eliquis
Disposition: Discussion with primary position classifier Dr. Ethan Villanueva on 10/09. Discussed possibility of attempting weaning Benadryl drip likely could be done as outpatient. With current family social situation, unfortunately there is no options
for disposition other than home on IV infusion. Possibility of a transfer to [facility] discussed as well, although according to Dr. Villanueva hospital administration declined services due to complexity. Also discussed possibility of
transfer to tertiary center ([facility] declined in the past).
10/[address] Villanueva over the phone as well as [facility] transfer center.
Complex patient. Attempt to wean off Benadryl drip over the last 2 weeks with persistent dystonic episodes.
While patient is relatively stable with her current condition, given complex clinical picture requiring multi disciplinary approach not limited to medicine, hematology, allergology, as well as neuropsychiatric assessment, patient would be better
served at a tertiary facility. Patient was accepted to [facility] for transfer, but hospital administration denied her transfer due to complexity (discussed with patient who is aware).
Total time spent to see the patient on the floor, examine the patient, review data and lab results, discuss treatment plan with patient, nursing staff around 37 minutes.
Physical Exam
General: Obese, cushingoid features noted, no acute distress
HEENT: Normocephalic, Atraumatic, EOMI, MMM
Respiratory: Clear to Auscultation bilaterally
Cardiac: Normal S1/S2, Regular Rate and Rhythm
GI: Soft, +GJ tube, Nontender, Nondistended, Normal Bowel Sounds
Extremities: No Clubbing, Cyanosis, or Edema
Neuro: Nonfocal/Grossly Intact
Anticipated Discharge: 24 - 48 hours
Subjective/Interval History
-
Date of Service: January 31, 2024
Has daily attacks, but overall improved. In good spirits today. No fever.
Objective Data
-
Vital Signs:
Vital Signs
Temp Pulse Resp BP Pulse Ox
98.2 F 88 13 102/73 96
01/31/24 07:06 01/31/24 08:04 01/31/24 08:04 01/31/24 04:00 01/31/24 08:04
I&O
01/30/24 01/31/24 02/01/24
06:59 06:59 06:59
Intake Total 960 / 960
Output Total 500 / 500 3150 / 3150
Balance -500 / -500 -2190 / -2190
[2024-01-31 12:00] VITALS: BP 111/76
[2024-01-31] MEDS: NOVOLOG FLEXPEN 3 UNITS SC ×2 (12:18→17:19)
[2024-01-31 12:23] LABS: Glucose - Point of Care 98 mg/dl (70-99)
[2024-01-31] MEDS: BENADRYL 25 MG IM ×2 (14:00→21:08)
[2024-01-31] MEDS: SINEMET 25-100 2 TABLET TUBE ×2 (14:04→18:25)
[2024-01-31] MEDS: NON-FORMULARY ITEM 200 MG PO (14:04)
[2024-01-31] MEDS: DUONEB 3 ML INH ×2 (14:20→19:48)
[2024-01-31 16:00] VITALS: BP 102/57
[2024-01-31] MEDS: NSS (PRESERVATIVE FREE) 0.5 ML IV (16:02)
[2024-01-31] MEDS: ATIVAN 1 MG IV (16:02)
[2024-01-31] MEDS: ZYRTEC 10 MG TUBE ×2 (17:19→21:13)
[2024-01-31 17:29] LABS: Glucose - Point of Care 90 mg/dl (70-99)
--- NOTE | 2024-01-31 17:34 | PTCARENOTE ---
Patient with 1 episode today, lasting nearly 3 hours. See ALEJANDRO. VSS throughout shift. Closely monitoring.
[2024-01-31] MEDS: TYLENOL 650 MG PO ×2 (17:36→23:11)
[2024-01-31 21:16] LABS: Glucose - Point of Care 91 mg/dl (70-99)
[2024-01-31] MEDS: FEOSOL 325 MG PO (22:51)
[2024-01-31 23:27] VITALS: BP 111/67
[2024-02-01] VITALS: BP 114/68
--- NOTE | 2024-02-01 00:30 | PTCARENOTE ---
Caring for patient overnight. NO assessment changes. Pt had one attack so far in beginning of shift that lasted a little over 1 hour. Scheduled meds were given & PRN IM Benadryl. Pt seems to be in good spirits. Will continue to monitor.
[2024-02-01 04:00] VITALS: BP 95/68
[2024-02-01] MEDS: ATIVAN 1 MG SL ×4 (04:06→21:01)
[2024-02-01] MEDS: SINEMET 25-100 1.5 TABLET TUBE ×2 (06:16→10:12)
[2024-02-01] MEDS: LIORESAL 10 MG TUBE ×3 (06:17→23:10)
[2024-02-01] MEDS: BENADRYL SOLUTION 50 MG TUBE ×4 (06:18→23:09)
[2024-02-01] MEDS: PULMICORT 0.5 MG INH ×2 (08:01→19:44)
[2024-02-01 08:03] VITALS: BP 125/85
[2024-02-01 08:16] LABS: Glucose - Point of Care 105 mg/dl (70-99)
[2024-02-01] MEDS: NOVOLOG FLEXPEN-LOW RESISTANCE SC ×3 (08:26→17:07)
[2024-02-01] MEDS: NOVOLOG FLEXPEN SC (08:26)
--- NOTE | 2024-02-01 08:59 | W.PN.HOSP.TC ---
Today's Communication/Plan
-
Discharge planning
Assessment / Plan
Assessment / Plan
Conditions prior to admission:
1. Mast cell activation syndrome.
2. Chronic dystonic reaction.
3. Orthostatic hypotension with postural orthostatic and tachycardia syndrome.
4. Dopa sensitive dystonia.
5. Steroid-induced diabetes.
6. Prior history of deep venous thrombosis and pulmonary embolism.
7. Chronic pain syndrome.
8. Migraine headaches.
9. Gastroesophageal reflux disease.
10. Benzodiazepine and opiate dependence.
11. Restless legs syndrome.
12. Insomnia.
13. History of vocal cord dysfunction.
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
15. Gastroparesis.
16. 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
17. 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
33yo F with PMHx of GERD, dystonia, allergic asthma, migraine, chronic hypoxia on 2L O2, steroid induced DM, Esophageal dysmotility on PEG, JUANJOSE, chronic pain syndrome with opioid dependency, mast cell syndrome on benadryl drip and steroids came to
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 Had PICC line replaced and completed cipro as per ID. Due to concern for PEG tube malfunction had
it replaced wice on 09/22 and 11/04. Continued on benadryl drip 2/2 hx of recurrent anaphylaxis 2/2 mast cell activation syndrome and weaned off it. Had multiple multidisciplianry meetings in attempts to minimize IV medication. PO Benadryl is continued
with recommendation to increase to max 300mg/day as needed.
Had fall on 10/03 and found Fx of 6th and 7th ribs without complications.
Attempt to transfer to [facility] (where patient was getting all her care) failed since receiving hospital administration was concerned for too high complexity of the patient
Ongoing disposition attempts per CM for home care.
A/P:
#Bacteremia 2/2 CLABSI
Completed cipro on 10/06/23
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
follows with Dr. Lizabeth Villanueva at [facility] hematology.
Continue Ativan
cont Gleevac, steroids
Levalbuterol as needed
Continue carbidopa levodopa
prednisone continued
Outpatient IV Benadryl drip at 15 mg/hr upon presentation.
Has been off IV Benadryl drip.
Rescue Benadryl changed to intramuscular route.
Increase enteral Benadryl to 50 mg every 6 hours.
#Dystonia
Cont baclofen and synemet
#Thrush
Completed clotrimasole troches
#GERD
#Chronic pain syndrome withn opioid dependency
#Sinus tachycardia, chronic
#Esophageal dysmotility
#Gastroparesis on PEG
#RLS
#Hx of DVT
#Allergy induced asthma with chronic hypoxic respiratory failure on 2L home O2
#Migraine d/o
Cont home meds
#Fall with uncomplicated 6,7 rib Fx
on 09/22
#DM steroid induced
Accuchecks
Insulin
DM diet
#Iatrogenic immunosuppression
2/2 steroids
reverse isolation
FULL/Eliquis
Disposition: Discussion with primary health safety and environment manager Dr. Ethna Villanueva on 10/09. Discussed possibility of attempting weaning Benadryl drip likely could be done as outpatient. With current family social situation, unfortunately there is no options
for disposition other than home on IV infusion. Possibility of a transfer to [facility] discussed as well, although according to Dr. Villanueva hospital administration declined services due to complexity. Also discussed possibility of
transfer to tertiary center ([facility] declined in the past).
10/[address] Villanueva over the phone as well as [facility] transfer center.
Complex patient. Attempt to wean off Benadryl drip over the last 2 weeks with persistent dystonic episodes.
While patient is relatively stable with her current condition, given complex clinical picture requiring multi disciplinary approach not limited to medicine, hematology, allergology, as well as neuropsychiatric assessment, patient would be better
served at a tertiary facility. Patient was accepted to [facility] for transfer, but hospital administration denied her transfer due to complexity (discussed with patient who is aware).
Total time spent to see the patient on the floor, examine the patient, review data and lab results, discuss treatment plan with patient, nursing staff around 35 minutes.
Physical Exam
General: Obese, cushingoid features noted, no acute distress
HEENT: Normocephalic, Atraumatic, EOMI, MMM
Respiratory: Clear to Auscultation bilaterally
Cardiac: Normal S1/S2, Regular Rate and Rhythm
GI: Soft, +GJ tube, Nontender, Nondistended, Normal Bowel Sounds
Extremities: No Clubbing, Cyanosis, or Edema
Neuro: Nonfocal/Grossly Intact
Anticipated Discharge: 24 - 48 hours
Subjective/Interval History
-
Date of Service: February 01, 2024
Continues to have daily dystonic reactions. No fever.
Objective Data
-
Vital Signs:
Vital Signs
Temp Pulse Resp BP Pulse Ox
98.2 F 108 17 95/68 96
02/01/24 07:35 02/01/24 08:04 02/01/24 08:04 02/01/24 04:00 02/01/24 08:04
I&O
01/31/24 02/01/24 02/02/24
06:59 06:59 06:59
Intake Total 960 / 960 480 / 480
Output Total 3150 / 3150 1680 / 1680
Balance -2190 / -2190 -1200 / -1200
[2024-02-01] MEDS: NON-FORMULARY ITEM 1 MG PO ×2 (10:07→20:07)
[2024-02-01] MEDS: NON-FORMULARY ITEM 80 MG PO (10:07)
[2024-02-01] MEDS: NON-FORMULARY ITEM 1 UNIT PO ×2 (10:08→20:06)
[2024-02-01] MEDS: GASTROCROM 300 MG PO ×4 (10:09→21:00)
[2024-02-01] MEDS: DESENEX/MITRAZOL/ZEASORB 1 APPLIC TOPICAL ×2 (10:09→20:06)
[2024-02-01] MEDS: DELTASONE 10 MG TUBE ×2 (10:11→20:04)
[2024-02-01] MEDS: MYCELEX TROCHE 10 MG PO ×5 (10:11→21:02)
[2024-02-01] MEDS: SUBUTEX 2 MG SL ×4 (10:11→21:01)
[2024-02-01] MEDS: VITAMIN B1 100 MG TUBE (10:12)
[2024-02-01] MEDS: INDERAL 10 MG TUBE ×3 (10:13→23:10)
[2024-02-01] MEDS: CLARITIN 10 MG TUBE (10:13)
[2024-02-01] MEDS: COLACE 100 MG PO ×2 (10:13→20:04)
[2024-02-01] MEDS: HYDREA 500 MG PO ×2 (10:13→20:05)
[2024-02-01] MEDS: PEPCID 40 MG PO ×2 (10:13→20:05)
[2024-02-01] MEDS: MIRALAX TUBE (10:14)
[2024-02-01] MEDS: LIDOCAINE 4% PATCH 1 PATCH TOPICAL (10:14)
[2024-02-01] MEDS: ELIQUIS 5 MG PO ×2 (10:14→20:05)
[2024-02-01] MEDS: LANTUS 0.05 UNITS SC (10:15)
[2024-02-01] MEDS: ZADITOR 1 DROP BOTH EYES ×2 (10:15→20:08)
[2024-02-01] MEDS: TYLENOL 650 MG PO ×2 (10:22→14:55)
[2024-02-01] MEDS: ZOFRAN 4 MG IV (10:24)
[2024-02-01 12:00] VITALS: BP 108/69
[2024-02-01 12:25] LABS: Glucose - Point of Care 102 mg/dl (70-99)
[2024-02-01] MEDS: NOVOLOG FLEXPEN 3 UNITS SC ×2 (13:12→19:12)
--- NOTE | 2024-02-01 14:14 | CHAP ---
Mary was in good spirits, looking forward to - finally - being discharged. She is excited and also somewhat anxious, having some sleeplessness at night. She shared details of the situation, along with her concerns about it. She also mentioned
concern for her grandmother, who has been declining. We offered all this in prayer. Emotional and spiritual support provided.
[2024-02-01] MEDS: BENADRYL 25 MG IM (14:45)
[2024-02-01] MEDS: SINEMET 25-100 2 TABLET TUBE ×2 (14:47→17:55)
[2024-02-01] MEDS: DUONEB 3 ML INH ×2 (14:57→19:44)
--- NOTE | 2024-02-01 15:47 | PTCARENOTE ---
Assumed care of patient at beginning of this shift. Patient c/o nausea and was medicated with zofran at 10:24. She then had a dystonic episode starting at 14:45 for which she was given IM benadryl, tylenol and resp tx as per patient request. Patient
continues with dystonic episode; used called and c/o dry heaving and muscle spasms. [place] text sent to Dr Willoughby who stated she will order IV ativan and compazine.
[2024-02-01] MEDS: ATIVAN 1 MG IV (15:55)
[2024-02-01] MEDS: COMPAZINE 10 MG IV (15:56)
[2024-02-01] MEDS: NSS (PRESERVATIVE FREE) 0.5 ML IV (15:56)
[2024-02-01 16:00] VITALS: BP 116/78
--- NOTE | 2024-02-01 16:56 | PTCARENOTE ---
Patient resting comfortably; dystonic episode over.
[2024-02-01] MEDS: NON-FORMULARY ITEM 200 MG PO (17:05)
[2024-02-01] MEDS: ZYRTEC 10 MG TUBE ×2 (17:08→23:10)
[2024-02-01 17:15] LABS: Glucose - Point of Care 147 mg/dl (70-99)
--- NOTE | 2024-02-01 18:17 | PTCARENOTE ---
Patient with dinner tray at bedside but stated she is not eating now and will call when she does. Will report off to next shift if patient still needing mealtime insulin.
[2024-02-01 20:44] VITALS: BP 128/82
[2024-02-01] MEDS: FEOSOL 325 MG PO (21:01)
[2024-02-01 21:16] LABS: Glucose - Point of Care 108 mg/dl (70-99)
[2024-02-02] VITALS: BP 119/66
--- NOTE | 2024-02-02 00:19 | PTCARENOTE ---
Caring for pt overnight. No assessment changes. VSS. One attack during day shift so far, non during the night so far. NSR on monitor. 2LNC when needed. Migue. Ad. Denies pain. Will monitor.
[2024-02-02 04:00] VITALS: BP 106/68
[2024-02-02] MEDS: BENADRYL SOLUTION 50 MG TUBE ×4 (05:16→23:08)
[2024-02-02] MEDS: SINEMET 25-100 1.5 TABLET TUBE ×2 (05:16→09:36)
[2024-02-02] MEDS: ATIVAN 1 MG SL ×4 (05:16→21:04)
[2024-02-02] MEDS: LIORESAL 10 MG TUBE ×3 (05:17→21:03)
[2024-02-02] MEDS: PULMICORT 0.5 MG INH ×2 (07:16→20:28)
[2024-02-02 08:00] VITALS: BP 102/72
[2024-02-02] MEDS: LIDOCAINE 4% PATCH 1 PATCH TOPICAL (09:35)
[2024-02-02] MEDS: PEPCID 40 MG PO ×2 (09:36→20:59)
[2024-02-02] MEDS: MIRALAX 17 GRAMS TUBE (09:36)
[2024-02-02] MEDS: DELTASONE 10 MG TUBE ×2 (09:37→20:59)
[2024-02-02] MEDS: GASTROCROM 300 MG PO ×4 (09:37→21:03)
[2024-02-02] MEDS: HYDREA 500 MG PO ×2 (09:37→20:59)
[2024-02-02] MEDS: COLACE 100 MG PO ×2 (09:38→20:59)
[2024-02-02] MEDS: SUBUTEX 2 MG SL ×4 (09:38→21:04)
[2024-02-02] MEDS: ELIQUIS 5 MG PO ×2 (09:38→20:59)
[2024-02-02] MEDS: MYCELEX TROCHE 10 MG PO ×5 (09:38→21:04)
[2024-02-02] MEDS: VITAMIN B1 100 MG TUBE (09:38)
[2024-02-02] MEDS: CLARITIN 10 MG TUBE (09:39)
[2024-02-02] MEDS: INDERAL 10 MG TUBE ×3 (09:39→21:04)
[2024-02-02] MEDS: NOVOLOG FLEXPEN SC ×2 (09:48→18:07)
[2024-02-02] MEDS: NON-FORMULARY ITEM 80 MG PO (09:49)
[2024-02-02] MEDS: DESENEX/MITRAZOL/ZEASORB 1 APPLIC TOPICAL ×2 (09:50→20:59)
[2024-02-02] MEDS: ZADITOR 1 DROP BOTH EYES ×2 (09:51→21:02)
[2024-02-02] MEDS: NON-FORMULARY ITEM 1 MG PO ×2 (09:51→21:00)
[2024-02-02] MEDS: NON-FORMULARY ITEM 1 UNIT PO ×2 (09:53→21:00)
[2024-02-02] MEDS: LANTUS 0.05 UNITS SC (10:13)
[2024-02-02] MEDS: ZOFRAN 4 MG IV ×2 (10:13→16:50)
[2024-02-02] MEDS: NOVOLOG FLEXPEN-LOW RESISTANCE SC ×3 (10:47→18:07)
[2024-02-02 10:56] LABS: Glucose - Point of Care 88 mg/dl (70-99)
[2024-02-02 12:00] VITALS: BP 107/75
[2024-02-02] MEDS: NOVOLOG FLEXPEN 3 UNITS SC (12:12)
[2024-02-02 12:15] LABS: Glucose - Point of Care 101 mg/dl (70-99)
--- NOTE | 2024-02-02 12:55 | CM ---
Patient with Dx Mast Cell Activation Syndrome, dystonia/movement disorder. Room air. PICC in place. Receiving Benadryl solution Q6H via PEG, Benadryl IM Q4 prn MCAS reaction. Medsitter.
Met with patient and spoke with Roslyn Ferreira, [employer] [facility] ([place] [phone]); there are still holes in the RN shift coverage: /Fri 7a-7p, Sat-Sun 7A-11p Sat-Sun 11p-7a every other weekend. The patient's family & friends
will provide the non-skilled care for now in an effort to speed up the d/c.
Spoke with Swati, [employer], [facility] ([place] [phone], cell [phone]) with Roslyn on the phone to confirm open shifts. Roslyn may have a non-skilled caregiver available and she is setting up a Meet & Greet.
Plan home with agencies for skilled nurse shift care, and daytime non-skilled caregiver if available.
--- NOTE | 2024-02-02 14:25 | W.PN.HOSP.TC ---
Today's Communication/Plan
-
Discharge planning
Assessment / Plan
Assessment / Plan
Conditions prior to admission:
1. Mast cell activation syndrome.
2. Chronic dystonic reaction.
3. Orthostatic hypotension with postural orthostatic and tachycardia syndrome.
4. Dopa sensitive dystonia.
5. Steroid-induced diabetes.
6. Prior history of deep venous thrombosis and pulmonary embolism.
7. Chronic pain syndrome.
8. Migraine headaches.
9. Gastroesophageal reflux disease.
10. Benzodiazepine and opiate dependence.
11. Restless legs syndrome.
12. Insomnia.
13. History of vocal cord dysfunction.
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
15. Gastroparesis.
16. 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
17. 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
33yo F with PMHx of GERD, dystonia, allergic asthma, migraine, chronic hypoxia on 2L O2, steroid induced DM, Esophageal dysmotility on PEG, JUANJOSE, chronic pain syndrome with opioid dependency, mast cell syndrome on benadryl drip and steroids came to
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 Had PICC line replaced and completed cipro as per ID. Due to concern for PEG tube malfunction had
it replaced wice on 09/22 and 11/04. Continued on benadryl drip 2/2 hx of recurrent anaphylaxis 2/2 mast cell activation syndrome and weaned off it. Had multiple multidisciplianry meetings in attempts to minimize IV medication. PO Benadryl is continued
with recommendation to increase to max 300mg/day as needed.
Had fall on 10/03 and found Fx of 6th and 7th ribs without complications.
Attempt to transfer to [facility] (where patient was getting all her care) failed since receiving hospital administration was concerned for too high complexity of the patient
Ongoing disposition attempts per CM for home care.
A/P:
#Bacteremia 2/2 CLABSI
Completed cipro on 10/06/23
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
follows with Dr. Lizabeth Villanueva at [facility] hematology.
Continue Ativan
cont Gleevac, steroids
Levalbuterol as needed
Continue carbidopa levodopa
prednisone continued
Outpatient IV Benadryl drip at 15 mg/hr upon presentation.
Has been off IV Benadryl drip.
Rescue Benadryl changed to intramuscular route.
Increase enteral Benadryl to 50 mg every 6 hours.
#Dystonia
Cont baclofen and synemet
#Thrush
Completed clotrimasole troches
#GERD
#Chronic pain syndrome withn opioid dependency
#Sinus tachycardia, chronic
#Esophageal dysmotility
#Gastroparesis on PEG
#RLS
#Hx of DVT
#Allergy induced asthma with chronic hypoxic respiratory failure on 2L home O2
#Migraine d/o
Cont home meds
#Fall with uncomplicated 6,7 rib Fx
on 09/22
#DM steroid induced
Accuchecks
Insulin
DM diet
#Iatrogenic immunosuppression
2/2 steroids
reverse isolation
FULL/Eliquis
Disposition: Discussion with primary tariff expert Dr. Ethan Villanueva on 10/09. Discussed possibility of attempting weaning Benadryl drip likely could be done as outpatient. With current family social situation, unfortunately there is no options
for disposition other than home on IV infusion. Possibility of a transfer to [facility] discussed as well, although according to Dr. Villanueva hospital administration declined services due to complexity. Also discussed possibility of
transfer to tertiary center ([facility] declined in the past).
10/[address] Villanueva over the phone as well as [facility] transfer center.
Complex patient. Attempt to wean off Benadryl drip over the last 2 weeks with persistent dystonic episodes.
While patient is relatively stable with her current condition, given complex clinical picture requiring multi disciplinary approach not limited to medicine, hematology, allergology, as well as neuropsychiatric assessment, patient would be better
served at a tertiary facility. Patient was accepted to [facility] for transfer, but hospital administration denied her transfer due to complexity (discussed with patient who is aware).
Total time spent to see the patient on the floor, examine the patient, review data and lab results, discuss treatment plan with patient, nursing staff around 35 minutes.
Physical Exam
General: Obese, cushingoid features noted, no acute distress
HEENT: Normocephalic, Atraumatic, EOMI, MMM
Respiratory: Clear to Auscultation bilaterally
Cardiac: Normal S1/S2, Regular Rate and Rhythm
GI: Soft, +GJ tube, Nontender, Nondistended, Normal Bowel Sounds
Extremities: No Clubbing, Cyanosis, or Edema
Neuro: Nonfocal/Grossly Intact
Anticipated Discharge: 24 - 48 hours
Subjective/Interval History
-
Date of Service: February 02, 2024
Objective Data
-
Vital Signs:
Vital Signs
Temp Pulse Resp BP Pulse Ox
97.6 F 100 10 102/72 93
02/02/24 13:28 02/02/24 10:00 02/02/24 10:00 02/02/24 08:00 02/02/24 10:00
I&O
02/01/24 02/02/24 02/03/24
06:59 06:59 06:59
Intake Total 480 / 480 600 / 600
Output Total 1680 / 1680 2300 / 2300
Balance -1200 / -1200 -1700 / -1700
Physical Exam
-
Respiratory: Non Labored Respirations; Negative Accessory Resp Muscle Use
Cardiac: Regular Rhythm and S1/S2
GI: Soft
Neuro: AO x 3; Negative Tremors
Psych: Calm
[2024-02-02] MEDS: SINEMET 25-100 2 TABLET TUBE ×2 (14:36→17:47)
[2024-02-02] MEDS: NON-FORMULARY ITEM 200 MG PO (14:37)
[2024-02-02] MEDS: DUONEB 3 ML INH (14:59)
[2024-02-02 16:00] VITALS: BP 122/93
[2024-02-02] MEDS: ZYRTEC 10 MG TUBE ×2 (16:28→21:04)
[2024-02-02] MEDS: BENADRYL 25 MG IM (16:35)
[2024-02-02 18:15] LABS: Glucose - Point of Care 87 mg/dl (70-99)
--- NOTE | 2024-02-02 19:15 | PTCARENOTE ---
pt medicated at 1435 with im benadryl for dystonic episode. episode resoved after about 45 min.
[2024-02-02 20:00] VITALS: BP 108/69
[2024-02-02] MEDS: FEOSOL 325 MG PO (21:04)
[2024-02-02 22:00] LABS: Glucose - Point of Care 154 mg/dl (70-99)
[2024-02-03] VITALS: BP 99/63
[2024-02-03 04:00] VITALS: BP 98/62
[2024-02-03] MEDS: ATIVAN 1 MG SL ×4 (04:55→21:33)
[2024-02-03] MEDS: LIORESAL 10 MG TUBE ×3 (05:00→21:33)
[2024-02-03] MEDS: SINEMET 25-100 1.5 TABLET TUBE ×2 (05:00→09:31)
[2024-02-03] MEDS: BENADRYL SOLUTION 50 MG TUBE ×4 (05:00→23:10)
[2024-02-03] MEDS: PULMICORT 0.5 MG INH ×2 (07:00→19:54)
[2024-02-03] MEDS: DUONEB 3 ML INH ×3 (07:00→19:55)
[2024-02-03 08:00] VITALS: BP 105/72
[2024-02-03 09:12] LABS: Glucose - Point of Care 79 mg/dl (70-99)
[2024-02-03] MEDS: GASTROCROM 300 MG PO ×4 (09:24→21:32)
[2024-02-03] MEDS: VITAMIN B1 100 MG TUBE (09:26)
[2024-02-03] MEDS: SUBUTEX 2 MG SL ×4 (09:26→21:33)
[2024-02-03] MEDS: LANTUS 0.05 UNITS SC (09:27)
[2024-02-03] MEDS: MIRALAX 17 GRAMS TUBE (09:27)
[2024-02-03] MEDS: DELTASONE 10 MG TUBE ×2 (09:28→20:03)
[2024-02-03] MEDS: MYCELEX TROCHE 10 MG PO ×5 (09:28→21:33)
[2024-02-03] MEDS: LIDOCAINE 4% PATCH 1 PATCH TOPICAL (09:28)
[2024-02-03] MEDS: HYDREA 500 MG PO ×2 (09:28→20:03)
[2024-02-03] MEDS: ELIQUIS 5 MG PO ×2 (09:29→20:03)
[2024-02-03] MEDS: COLACE 100 MG PO ×2 (09:29→20:03)
[2024-02-03] MEDS: PEPCID 40 MG PO ×2 (09:30→20:03)
[2024-02-03] MEDS: INDERAL 10 MG TUBE ×3 (09:30→21:33)
[2024-02-03] MEDS: CLARITIN 10 MG TUBE (09:31)
[2024-02-03] MEDS: NON-FORMULARY ITEM 80 MG PO (09:32)
[2024-02-03] MEDS: ZADITOR 1 DROP BOTH EYES ×2 (09:32→20:03)
[2024-02-03] MEDS: NON-FORMULARY ITEM 1 MG PO ×2 (09:33→20:04)
[2024-02-03] MEDS: NON-FORMULARY ITEM 1 UNIT PO ×2 (09:34→20:04)
[2024-02-03] MEDS: DESENEX/MITRAZOL/ZEASORB 1 APPLIC TOPICAL ×2 (09:35→20:03)
[2024-02-03] MEDS: NOVOLOG FLEXPEN SC ×2 (10:02→15:26)
[2024-02-03] MEDS: NOVOLOG FLEXPEN-LOW RESISTANCE SC ×3 (10:03→17:34)
[2024-02-03] MEDS: ZOFRAN 4 MG IV ×2 (10:04→15:53)
[2024-02-03] MEDS: TYLENOL 650 MG PO ×3 (10:04→23:10)
[2024-02-03] MEDS: BENADRYL 25 MG IM ×2 (11:05→16:11)
[2024-02-03] MEDS: PULMICORT INH (11:29)
[2024-02-03 12:00] VITALS: BP 122/93
[2024-02-03] MEDS: SINEMET 25-100 2 TABLET TUBE ×2 (12:48→17:35)
[2024-02-03 13:08] LABS: Glucose - Point of Care 112 mg/dl (70-99)
[2024-02-03] MEDS: ATIVAN 1 MG IV (14:12)
[2024-02-03] MEDS: NSS (PRESERVATIVE FREE) 0.5 ML IV (14:13)
[2024-02-03] MEDS: NON-FORMULARY ITEM 200 MG PO (14:14)
--- NOTE | 2024-02-03 14:16 | W.PN.HOSP.TC ---
Today's Communication/Plan
-
Seen at the dystonic episode when patient remains communicative with no evidence of stridor or bronchospasm
Additional intramuscular dose of Benadryl along with lorazepam provided.
Assessment / Plan
Assessment / Plan
Conditions prior to admission:
1. Mast cell activation syndrome.
2. Chronic dystonic reaction.
3. Orthostatic hypotension with postural orthostatic and tachycardia syndrome.
4. Dopa sensitive dystonia.
5. Steroid-induced diabetes.
6. Prior history of deep venous thrombosis and pulmonary embolism.
7. Chronic pain syndrome.
8. Migraine headaches.
9. Gastroesophageal reflux disease.
10. Benzodiazepine and opiate dependence.
11. Restless legs syndrome.
12. Insomnia.
13. History of vocal cord dysfunction.
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
15. Gastroparesis.
16. 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
17. 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
33yo F with PMHx of GERD, dystonia, allergic asthma, migraine, chronic hypoxia on 2L O2, steroid induced DM, Esophageal dysmotility on PEG, JUANJOSE, chronic pain syndrome with opioid dependency, mast cell syndrome on benadryl drip and steroids came to
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 Had PICC line replaced and completed cipro as per ID. Due to concern for PEG tube malfunction had
it replaced wice on 09/22 and 11/04. Continued on benadryl drip 2/2 hx of recurrent anaphylaxis 2/2 mast cell activation syndrome and weaned off it. Had multiple multidisciplianry meetings in attempts to minimize IV medication. PO Benadryl is continued
with recommendation to increase to max 300mg/day as needed.
Had fall on 10/03 and found Fx of 6th and 7th ribs without complications.
Attempt to transfer to [facility] (where patient was getting all her care) failed since receiving hospital administration was concerned for too high complexity of the patient
Ongoing disposition attempts per CM for home care.
A/P:
#Bacteremia 2/2 CLABSI
Completed cipro on 10/06/23
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
follows with Dr. Lizabeth Villanueva at [facility] hematology.
Continue Ativan
cont Gleevac, steroids
Levalbuterol as needed
Continue carbidopa levodopa
prednisone continued
Outpatient IV Benadryl drip at 15 mg/hr upon presentation.
Has been off IV Benadryl drip.
Rescue Benadryl changed to intramuscular route.
Increase enteral Benadryl to 50 mg every 6 hours.
#Dystonia
Cont baclofen and synemet
#Thrush
Completed clotrimasole troches
#GERD
#Chronic pain syndrome withn opioid dependency
#Sinus tachycardia, chronic
#Esophageal dysmotility
#Gastroparesis on PEG
#RLS
#Hx of DVT
#Allergy induced asthma with chronic hypoxic respiratory failure on 2L home O2
#Migraine d/o
Cont home meds
#Fall with uncomplicated 6,7 rib Fx
on 09/22
#DM steroid induced
Accuchecks
Insulin
DM diet
#Iatrogenic immunosuppression
2/2 steroids
reverse isolation
FULL/Eliquis
Disposition: Discussion with primary hole digger Dr. Ethan Villanueva on 10/09. Discussed possibility of attempting weaning Benadryl drip likely could be done as outpatient. With current family social situation, unfortunately there is no options
for disposition other than home on IV infusion. Possibility of a transfer to [facility] discussed as well, although according to Dr. Villanueva hospital administration declined services due to complexity. Also discussed possibility of
transfer to tertiary center ([facility] in [place] declined in the past).
10/[address] Villanueva over the phone as well as [facility] transfer center.
Complex patient. Attempt to wean off Benadryl drip over the last 2 weeks with persistent dystonic episodes.
While patient is relatively stable with her current condition, given complex clinical picture requiring multi disciplinary approach not limited to medicine, hematology, allergology, as well as neuropsychiatric assessment, patient would be better
served at a tertiary facility. Patient was accepted to [facility] for transfer, but hospital administration denied her transfer due to complexity (discussed with patient who is aware).
Total time spent to see the patient on the floor, examine the patient, review data and lab results, discuss treatment plan with patient, nursing staff around 35 minutes.
Anticipated Discharge: 24 - 48 hours
Subjective/Interval History
-
Date of Service: February 03, 2024
Objective Data
-
Vital Signs:
Vital Signs
Temp Pulse Resp BP Pulse Ox
98 F 118 20 105/72 98
02/03/24 11:05 02/03/24 11:29 02/03/24 11:29 02/03/24 08:00 02/03/24 12:35
I&O
02/02/24 02/03/24 02/04/24
06:59 06:59 06:59
Intake Total 600 / 600 740 / 740
Output Total 2300 / 2300 1979 / 1979 350 / 350
Balance -1700 / -1700 -1240 / -1240 -350 / -350
Physical Exam
-
General: Well Developed and No Apparent Distress
HEENT: Normocephalic, Atraumatic and Moist Mucous Membranes
Respiratory: Clear to Auscultation
Cardiac: Regular Rhythm and S1/S2; Negative Murmur, Rub or Gallop
GI: Soft, Nontender, Nondistended and Normal Bowel Sounds; Negative Organomegaly
Rectal: Deferred by Provider
Musculoskeletal: No Clubbing, No Cyanosis and No Edema
Skin: Negative Rash
Neuro: Nonfocal/Grossly Intact
--- NOTE | 2024-02-03 15:21 | CM ---
Addendum entered by Tg Plummer 02/04/24 17:02:
JOJO spoke with Swati at [facility]; confirmed with Roslyn Ferreira that [facility] has pulled out of the case. Roslyn spoke with Brigida Leavitt who will document the plan as discussed with Roslyn - additional note to follow.
Original Note:
Patient with Dx Mast Cell Activation Syndrome, dystonia/movement disorder. Room air. PICC in place. Receiving Benadryl solution Q6H via PEG, Benadryl IM Q4 prn MCAS reaction. Medsitter.
Spoke with Swati, Plating Equipment Tender & Armored Transport Service Manager, [facility] ([place] [phone], cell [phone]) this morning; she will not have any additional RN/LPNs to fill the holes in the skilled nurse shifts. She thinks Roslyn has a possible nurse
available through another agency.
Phone calls x3 today to Roslyn Ferreira, [employer] [facility] ([place] [phone]); no response. No answer whether we can use an out of network Agency for skilled RN care.
Case discussed with Dr Kirk & Brigida Leavitt, Director.
Plan home with agencies for skilled nurse shift care, and daytime non-skilled caregiver if available.
[2024-02-03 16:00] VITALS: BP 127/101
[2024-02-03 16:36] LABS: Glucose - Point of Care 92 mg/dl (70-99)
[2024-02-03] MEDS: NOVOLOG FLEXPEN 3 UNITS SC (17:35)
[2024-02-03] MEDS: ZYRTEC 10 MG TUBE ×2 (17:36→21:33)
--- NOTE | 2024-02-03 18:32 | PTCARENOTE ---
pt had prolonged dystonic episode today starting at about 1100 am. pt recieved im benadryl x 2 this shift for cough, stridor and dystonia. pt required dose of iv ativan as she c/o severe muscle cramping d/t dystonia and pain in chest r/t coughing.
pt currently resting comfortably.
[2024-02-03 20:00] VITALS: BP 117/74
[2024-02-03] MEDS: FEOSOL 325 MG PO (21:33)
[2024-02-03 21:58] LABS: Glucose - Point of Care 153 mg/dl (70-99)
[2024-02-04] VITALS: BP 107/72
--- NOTE | 2024-02-04 02:58 | DOWNTIME ---
There was a [employer] Client Corporate Counsel Downtime on 01/07/2024 from 0100 to 01/07/2024 at 0252. Downtime documentation of patient's care, including medication administrations, has been reconciled in the electronic record per guidelines. Refer to the
patient's paper chart under the miscellaneous tab to see printed paper medication records and downtime forms.
--- NOTE | 2024-02-04 02:59 | PTCARENOTE ---
No acute events. Pt is AAOx3. NSR/sinus tach on the monitor. Pw in place, hygiene provided. VSS.
[2024-02-04 04:00] VITALS: BP 105/68
[2024-02-04] MEDS: ATIVAN 1 MG SL ×4 (04:51→22:16)
[2024-02-04] MEDS: LIORESAL 10 MG TUBE ×3 (05:00→22:15)
[2024-02-04] MEDS: BENADRYL SOLUTION 50 MG TUBE ×4 (05:00→19:41)
[2024-02-04] MEDS: SINEMET 25-100 1.5 TABLET TUBE ×2 (05:00→09:41)
[2024-02-04] MEDS: DUONEB 3 ML INH ×3 (07:48→20:03)
[2024-02-04] MEDS: PULMICORT 0.5 MG INH ×2 (07:49→20:03)
[2024-02-04 08:00] VITALS: BP 116/79
[2024-02-04 09:35] LABS: Glucose - Point of Care 82 mg/dl (70-99)
[2024-02-04] MEDS: GASTROCROM 300 MG PO ×4 (09:38→22:15)
[2024-02-04] MEDS: ZOFRAN 4 MG IV ×2 (09:39→15:45)
[2024-02-04] MEDS: VITAMIN B1 100 MG TUBE (09:40)
[2024-02-04] MEDS: PEPCID 40 MG PO ×2 (09:40→19:41)
[2024-02-04] MEDS: ELIQUIS 5 MG PO ×2 (09:40→19:41)
[2024-02-04] MEDS: INDERAL 10 MG TUBE ×3 (09:40→22:16)
[2024-02-04] MEDS: MYCELEX TROCHE 10 MG PO ×4 (09:40→22:16)
[2024-02-04] MEDS: DELTASONE 10 MG TUBE ×2 (09:41→19:45)
[2024-02-04] MEDS: SUBUTEX 2 MG SL ×4 (09:41→22:15)
[2024-02-04] MEDS: COLACE 100 MG PO ×2 (09:41→19:41)
[2024-02-04] MEDS: HYDREA 500 MG PO ×2 (09:42→19:41)
[2024-02-04] MEDS: TYLENOL 650 MG PO (09:42)
[2024-02-04] MEDS: LIDOCAINE 4% PATCH 1 PATCH TOPICAL (09:42)
[2024-02-04] MEDS: MIRALAX TUBE (09:42)
[2024-02-04] MEDS: CLARITIN 10 MG TUBE (09:42)
[2024-02-04] MEDS: LANTUS 0.05 UNITS SC (09:43)
[2024-02-04] MEDS: NOVOLOG FLEXPEN SC (09:44)
[2024-02-04] MEDS: DESENEX/MITRAZOL/ZEASORB 1 APPLIC TOPICAL ×2 (09:44→19:45)
[2024-02-04] MEDS: NOVOLOG FLEXPEN-LOW RESISTANCE SC ×3 (09:44→17:43)
[2024-02-04] MEDS: NON-FORMULARY ITEM 1 UNIT PO ×3 (09:45→19:47)
[2024-02-04] MEDS: NON-FORMULARY ITEM 1 MG PO ×2 (09:47→19:46)
[2024-02-04] MEDS: NON-FORMULARY ITEM 80 MG PO (09:48)
[2024-02-04] MEDS: ZADITOR 1 DROP BOTH EYES ×2 (09:49→19:46)
--- NOTE | 2024-02-04 10:00 | PTCARENOTE ---
Patient received from captain airline pilot. Patient resting comfortably in bed. AAO, VSS. No events noted overnight. Continued complaints of joint and generalized whole body pain at this time, see MAR. Currently on 2L N/C for HS, Room air during the day
as tolerated. Continuing current plan and awaiting for insurance approvals. Purewick in place. Will see if patient wants to get OOB to chair. IM Benadryl available if needed. Call sanchez in reach.
[2024-02-04 12:26] LABS: Glucose - Point of Care 112 mg/dl (70-99)
[2024-02-04 13:02] VITALS: BP 133/90
[2024-02-04 13:22] VITALS: BP 133/90; PULSE 101; O2SAT 97
[2024-02-04] MEDS: NOVOLOG FLEXPEN 3 UNITS SC ×2 (13:24→17:45)
[2024-02-04] MEDS: SINEMET 25-100 2 TABLET TUBE ×2 (14:24→17:44)
[2024-02-04] MEDS: NON-FORMULARY ITEM 200 MG PO (14:24)
--- NOTE | 2024-02-04 14:46 | W.PN.HOSP.TC ---
Today's Communication/Plan
-
Patient has been off parenteral Benadryl
Maintenance oral dose increased to 50 mg every 4 hours.
Has been medically optimized for discharge.
With reasoning offered to discontinue central line given increased risk for line sepsis, although patient adamantly declined proposition.
Assessment / Plan
Assessment / Plan
Conditions prior to admission:
1. Mast cell activation syndrome.
2. Chronic dystonic reaction.
3. Orthostatic hypotension with postural orthostatic and tachycardia syndrome.
4. Dopa sensitive dystonia.
5. Steroid-induced diabetes.
6. Prior history of deep venous thrombosis and pulmonary embolism.
7. Chronic pain syndrome.
8. Migraine headaches.
9. Gastroesophageal reflux disease.
10. Benzodiazepine and opiate dependence.
11. Restless legs syndrome.
12. Insomnia.
13. History of vocal cord dysfunction.
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
15. Gastroparesis.
16. 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
17. 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
33yo F with PMHx of GERD, dystonia, allergic asthma, migraine, chronic hypoxia on 2L O2, steroid induced DM, Esophageal dysmotility on PEG, JUANJOSE, chronic pain syndrome with opioid dependency, mast cell syndrome on benadryl drip and steroids came to
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 Had PICC line replaced and completed cipro as per ID. Due to concern for PEG tube malfunction had
it replaced wice on 09/22 and 11/04. Continued on benadryl drip 2/2 hx of recurrent anaphylaxis 2/2 mast cell activation syndrome and weaned off it. Had multiple multidisciplianry meetings in attempts to minimize IV medication. PO Benadryl is continued
with recommendation to increase to max 300mg/day as needed.
Had fall on 10/03 and found Fx of 6th and 7th ribs without complications.
Attempt to transfer to [facility] (where patient was getting all her care) failed since receiving hospital administration was concerned for too high complexity of the patient
Ongoing disposition attempts per CM for home care.
A/P:
#Bacteremia 2/2 CLABSI
Completed cipro on 10/06/23
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
follows with Dr. Lizabeth Villanueva at [facility] hematology.
Continue Ativan
cont Gleevac, steroids
Levalbuterol as needed
Continue carbidopa levodopa
prednisone continued
Outpatient IV Benadryl drip at 15 mg/hr upon presentation.
Has been off IV Benadryl drip.
Rescue Benadryl changed to intramuscular route and discontinued.
Increase enteral Benadryl to 50 mg every 6 hours.
#Dystonia
Cont baclofen and synemet
#Thrush
Completed clotrimasole troches
#GERD
#Chronic pain syndrome withn opioid dependency
#Sinus tachycardia, chronic
#Esophageal dysmotility
#Gastroparesis on PEG
#RLS
#Hx of DVT
#Allergy induced asthma with chronic hypoxic respiratory failure on 2L home O2
#Migraine d/o
Cont home meds
#Fall with uncomplicated 6,7 rib Fx
on 09/22
#DM steroid induced
Accuchecks
Insulin
DM diet
#Iatrogenic immunosuppression
2/2 steroids
reverse isolation
FULL/Eliquis
Disposition: Discussion with primary food porter Dr. Ethan Villanueva on 10/09. Discussed possibility of attempting weaning Benadryl drip likely could be done as outpatient. With current family social situation, unfortunately there is no options
for disposition other than home on IV infusion. Possibility of a transfer to [facility] discussed as well, although according to Dr. Villanueva hospital administration declined services due to complexity. Also discussed possibility of
transfer to tertiary center ([facility] declined in the past).
10/[address] Villanueva over the phone as well as [facility] transfer center.
Complex patient. Attempt to wean off Benadryl drip over the last 2 weeks with persistent dystonic episodes.
While patient is relatively stable with her current condition, given complex clinical picture requiring multi disciplinary approach not limited to medicine, hematology, allergology, as well as neuropsychiatric assessment, patient would be better
served at a tertiary facility. Patient was accepted to [facility] for transfer, but hospital administration denied her transfer due to complexity (discussed with patient who is aware).
Total time spent to see the patient on the floor, examine the patient, review data and lab results, discuss treatment plan with patient, nursing staff around 35 minutes.
Anticipated Discharge: 24 - 48 hours
Subjective/Interval History
-
Date of Service: February 04, 2024
Objective Data
-
Vital Signs:
Vital Signs
Temp Pulse Resp BP Pulse Ox
98.2 F 98 16 116/79 97
02/04/24 03:27 02/04/24 09:40 02/04/24 07:51 02/04/24 09:40 02/04/24 12:14
I&O
02/03/24 02/04/24 02/05/24
06:59 06:59 06:59
Intake Total 740 / 740 940 / 940
Output Total 1979 1300 / 1300
Balance -1240 / -1240 -360 / -360
Physical Exam
-
General: Well Developed and No Apparent Distress
HEENT: Normocephalic, Atraumatic and Moist Mucous Membranes
Respiratory: Clear to Auscultation
Cardiac: Regular Rhythm and S1/S2; Negative Murmur, Rub or Gallop
GI: Soft, Nontender, Nondistended and Normal Bowel Sounds; Negative Organomegaly
Rectal: Deferred by Provider
Musculoskeletal: No Clubbing, No Cyanosis and No Edema
Skin: Negative Rash
Neuro: Nonfocal/Grossly Intact
[2024-02-04] MEDS: MYCELEX TROCHE PO ×2 (15:45→17:45)
--- NOTE | 2024-02-04 16:59 | CM ---
Call placed to Roslyn Moya [facility], per Roslyn another nurse pulled out of the schedule today due to personal reasons. The current open shifts are Friday 7am to 7pm, [id number], Fri 7am-7pm, entire day, Friday 7pm-7 am.
Both week-end days are covered completely. Per Roslyn the caregivers are being provided by [facility]. Roslyn stated she had a long discussion with Mary today about the updates regarding the current open shifts. Roslyn stated they had a
discussion in regards to Mary possible being discharged to her apartment, with the current open shifts ,while Roslyn continues to work on finding coverage for them. She said Mary is anxious and looking forward to being in her apartment . Roslyn stated
that Mary told her that she can feel one of her events coming on and she felt that she could give herself the IM Benedryl when needed.
She also stated Mary made her aware that she has a friend who lives in the same apartment building along and both sets of parents live near by. Update to CM.
[2024-02-04 17:22] LABS: Glucose - Point of Care 122 mg/dl (70-99)
--- NOTE | 2024-02-04 17:30 | PTCARENOTE ---
Patient with dystonic episode. Last approx. 2 hours. All meds given as appropriate. Ice packs applied and fan on. Respiratory called for neb. Call sanchez in reach.
[2024-02-04] MEDS: ZYRTEC 10 MG TUBE ×2 (17:44→22:15)
[2024-02-04 20:11] VITALS: BP 119/74
[2024-02-04 22:14] LABS: Glucose - Point of Care 150 mg/dl (70-99)
[2024-02-04] MEDS: FEOSOL 325 MG PO (22:16)
[2024-02-05] VITALS: BP 101/71
[2024-02-05] MEDS: BENADRYL SOLUTION 50 MG TUBE ×5 (00:11→15:20)
[2024-02-05] MEDS: ATIVAN 1 MG SL ×3 (03:29→15:17)
[2024-02-05] MEDS: TYLENOL 650 MG PO ×2 (03:29→09:27)
[2024-02-05] MEDS: ZOFRAN 4 MG IV ×2 (03:29→09:32)
[2024-02-05 04:00] VITALS: BP 117/82
[2024-02-05] MEDS: LIORESAL 10 MG TUBE ×2 (05:36→15:18)
[2024-02-05] MEDS: SINEMET 25-100 1.5 TABLET TUBE ×2 (05:36→09:25)
[2024-02-05] MEDS: PULMICORT 0.5 MG INH (07:44)
[2024-02-05] MEDS: DUONEB 3 ML INH (07:44)
[2024-02-05 08:00] VITALS: BP 113/82
[2024-02-05 08:09] LABS: Glucose - Point of Care 95 mg/dl (70-99)
[2024-02-05] MEDS: NOVOLOG FLEXPEN-LOW RESISTANCE SC ×2 (08:15→13:09)
[2024-02-05] MEDS: NOVOLOG FLEXPEN SC ×2 (08:15→13:09)
[2024-02-05] MEDS: LANTUS 0.05 UNITS SC (09:24)
[2024-02-05] MEDS: GASTROCROM 300 MG PO ×2 (09:24→12:12)
[2024-02-05] MEDS: LIDOCAINE 4% PATCH 1 PATCH TOPICAL (09:25)
[2024-02-05] MEDS: SUBUTEX 2 MG SL ×2 (09:26→12:13)
[2024-02-05] MEDS: VITAMIN B1 100 MG TUBE (09:27)
[2024-02-05] MEDS: ELIQUIS 5 MG PO (09:27)
[2024-02-05] MEDS: CLARITIN 10 MG TUBE (09:27)
[2024-02-05] MEDS: PEPCID 40 MG PO (09:28)
[2024-02-05] MEDS: DELTASONE 10 MG TUBE (09:28)
[2024-02-05] MEDS: HYDREA 500 MG PO (09:28)
[2024-02-05] MEDS: MYCELEX TROCHE 10 MG PO ×3 (09:28→15:17)
[2024-02-05] MEDS: INDERAL 10 MG TUBE ×2 (09:28→15:18)
[2024-02-05] MEDS: COLACE 100 MG PO (09:28)
[2024-02-05] MEDS: MIRALAX TUBE (09:29)
[2024-02-05] MEDS: DESENEX/MITRAZOL/ZEASORB 1 APPLIC TOPICAL (09:29)
[2024-02-05] MEDS: NON-FORMULARY ITEM 1 UNIT PO (09:30)
[2024-02-05] MEDS: ZADITOR 1 DROP BOTH EYES (09:30)
[2024-02-05] MEDS: NON-FORMULARY ITEM 80 MG PO (09:31)
[2024-02-05] MEDS: NON-FORMULARY ITEM 1 MG PO (09:31)
--- NOTE | 2024-02-05 10:00 | PTCARENOTE ---
Patient received from second shift supervisor. Patient resting comfortably in bed. AAO, VSS. No events noted overnight. Continued complaints of joint and generalized whole body pain at this time, see MAR. Currently on 2L N/C for HS, Room air during the day
as tolerated. Continuing current plan and awaiting for insurance approvals. Purewick in place. Possible D/C today. Call sanchez in reach.
--- NOTE | 2024-02-05 11:49 | W.DS.TRANS ---
DC Summary - Muskrat Trapper
-
Discharge Instructions:
Discharge Diagnosis/Procedures Picc line infection
Diet Diabetic, Carb Controlled
Instructions:
Stand-Alone Forms:
Changes to Home Medications: Yes
Discharge Medications:
DC Medications w/original date entered in [employer]
propranolol 10 mg tablet 10 mg feeding tube TID Heart disease/condition 04/16/15
cetirizine 10 mg tablet 10 mg feeding tube BID@1700,2200 Allergies 11/03/20
budesonide 0.5 mg/2 mL suspension for nebulization 0.5 mg inhalation R BID Lung/breathing issues 09/27/21
rabeprazole 20 mg tablet,delayed release (AcipHex) 20 mg PO BID Gastrointestinal issue 09/27/21
ferrous sulfate 325 mg (65 mg iron) tablet (FeroSul) 325 mg PO HS Supplement 10/02/21
rimegepant 75 mg disintegrating tablet (Nurtec ODT) 75 mg PO DAILYPRN PRN migraine 10/02/21
baclofen 10 mg tablet 10 mg feeding tube TID@0600,1400,2200 Muscle Spasms 05/13/22
imatinib 100 mg tablet (Gleevec) 200 mg PO DAILY@1400 MCAS 05/13/22
lorazepam 2 mg/mL oral concentrate 2 mg sublingual Q6H PRN dystonia 05/13/22
thiamine HCl (vitamin B1) 100 mg tablet 100 mg feeding tube DAILY Supplement 05/13/22
fexofenadine 180 mg tablet 180 mg PO BID Allergies 06/18/22
carbidopa 25 mg-levodopa 100 mg tablet (Sinemet) 1.5 tab feeding tube BID@0600,1000 DYSTONIA 08/17/22
carbidopa 25 mg-levodopa 100 mg tablet (Sinemet) 2 tab feeding tube BID@1400,1800 DYSTONIA 08/17/22
ondansetron HCl (PF) 4 mg/2 mL injection solution 4 mg IV Q6HPRN PRN severe nausea/vomiting 02/11/23
albuterol sulfate 2.5 mg/3 mL (0.083 %) solution for nebulization 2.5 mg inhalation R Q6HPRN PRN anaphylaxis 06/11/23
buprenorphine HCl 2 mg sublingual tablet 2 mg sublingual QID Pain 06/11/23
calcium citrate 200 mg calcium-vitamin D3 6.25 mcg (250 unit) tablet 4 tab PO BID Supplement 06/11/23
hydromorphone 8 mg tablet 8 mg PO Q3HPRN PRN severe pain 06/11/23
simethicone 80 mg chewable tablet 80 mg PO HS PRN gas 06/11/23
aprepitant 80 mg capsule (Emend) 80 mg PO DAILY MCAS 06/23/23
hydroxyurea 500 mg capsule 500 mg PO BID #60 caps 07/02/23
Ketotifen 1 mg PO BID Allergies 08/30/23
cholecalciferol (vitamin D3) 1,250 mcg (50,000 unit) capsule 1,250 mcg PO MO@0800 Supplement 08/30/23
cromolyn 100 mg/5 mL oral concentrate 300 mg PO QID Allergies 08/30/23
etonogestrel 0.12 mg-ethinyl estradiol 0.015 mg/24 hr vaginal ring (NuvaRing) 1 vag ring vaginal Q4W control 08/30/23
fluticasone propionate 50 mcg/actuation nasal spray,suspension 2 spray intranasal DAILY PRN allergies 08/30/23
insulin lispro 100 unit/mL subcutaneous pen 0 sliding scale dose SC DIRECTED Diabetes 08/30/23
ketotifen fumarate 0.025 % (0.035 %) eye drops 1 drp BOTH EYES BID Eye Condition 08/30/23
prednisone 5 mg tablet 10 mg feeding tube BID Anti-Inflammatory 08/30/23
acetaminophen 325 mg tablet 650 mg (2 x 325 mg) PO Q4HPRN PRN mild pain/fever #90 tabs 01/08/24
apixaban 5 mg tablet (Eliquis) 5 mg PO BID #60 tabs 01/08/24
bisacodyl 10 mg rectal suppository 10 mg NC [id number] PRN constipation #30 ea 01/08/24
budesonide 0.5 mg/2 mL suspension for nebulization 0.5 mg (2 mL) inhalation R BID #1 mL 01/08/24
docusate sodium 100 mg capsule 100 mg PO BID #60 caps 01/08/24
insulin aspart U-100 100 unit/mL (3 mL) subcutaneous pen 3 unit (0.03 mL) SC AC #1 mL 01/08/24
ipratropium 0.5 mg-albuterol 3 mg (2.5 mg base)/3 mL nebulization soln 3 ml inhalation R Q4HPRN PRN sob/wheeze #90 mL 01/08/24
lidocaine 4 % topical patch 1 patch topical DAILY #30 ea 01/08/24
lorazepam 1 mg tablet 1 mg sublingual Q6H #30 tabs 01/08/24
polyethylene glycol 3350 17 gram oral powder packet (HealthyLax) 17 g feeding tube DAILY #30 ea 01/08/24
diphenhydramine HCl 12.5 mg/5 mL oral liquid (Children's Allergy (diphenhydramine)) 50 mg (20 mL) feeding tube Q4 #500 mL 02/05/24
famotidine 40 mg tablet 40 mg PO BID #60 tabs 02/05/24
insulin glargine 100 unit/mL (3 mL) subcutaneous pen (Lantus Solostar U-100 Insulin) 5 unit (0.05 mL) SC DAILY Diabetes #0 mL 02/05/24
insulin lispro 100 unit/mL subcutaneous pen 3 unit (0.03 mL) SC AC Diabetes #0 mL 02/05/24
Home Medication Changes
IV Benadryl including drip had been weaned off.
Anticoagulation changed from LMWH to Eliquis.
Insulin regimen being adjusted to hypoglycemia.
Patient has been off parenteral medications including IV fluids at the time of discharge.
Pending Results: No
[2024-02-05 13:06] LABS: Glucose - Point of Care 115 mg/dl (70-99)
--- NOTE | 2024-02-05 13:09 | CM ---
Patient with Dx Mast Cell Activation Syndrome, dystonia/movement disorder. Room air. PICC discontinued today. PEG in place. Receiving Benadryl solution Q6H via PEG. Tingtter.
Spoke with Dr Kirk, who is planning on discharging the patient today. He met with the patient who is in agreement with d/c.
Met with patient who agrees to discharge home today. Patient is aware that there are some open nurse shifts and caregiver shifts and she is okay with that, as she states she is eager to go home to her apartment. Patient states that [facility]
nurses are no longer available. [facility] are supplying the nurses for shift care as follows: M-T-W-Fri night shifts, no nurse Thurs, full coverage Fri-Sat-Fri. [facility] will provide non-skilled caregivers M-Sat 9a-4pm.
Mary states she will hire a nurse she knows for M-T-W 4p-7pm. Family & friends will assist her today. She is aware nurses/caregivers will start tomorrow. Patient agrees that home PT is not needed- she feels she has had ample PT here. Mary
confirms that her stepfather Jl Silva will provide transport home today with her home O2.
Spoke with Roslyn Ferreira, [employer] [facility] ([place] [phone]); confirmed discharge today. She is aware of the coverage and gaps as above. Roslyn will continue to work on filling the gaps in coverage. She is calling the agencies
today to confirm they are available to start tomorrow. Roslyn was made aware patient will not have PICC line in place after discharge. Roslyn plans on doing a home visit with the patient in 2 weeks.
Plan home today with agencies for skilled nurse shift care, and daytime non-skilled caregivers.
--- NOTE | 2024-02-05 14:02 | VATNOTE ---
02/04 LT TLC picc removed per order. Patient is being discharged today. Confirmed with MD via primary RN/clariceext that MD spoke with ruling machine operator regarding picc being removed -patient requested it be double checked. MD stated PICC must be removed.
patient tolerated removal. 45cm removed.
[2024-02-05] MEDS: NON-FORMULARY ITEM 200 MG PO (15:13)
[2024-02-05] MEDS: SINEMET 25-100 2 TABLET TUBE (15:17)
[2024-02-05 15:18] VITALS: BP 125/83
--- NOTE | 2024-02-05 16:10 | PTCARENOTE ---
Patient discharged to home. Discharge instructions read and reviewed with patient and family in the room. All questions answered. Patient left with all known belongings and medications. Escorted to main entrance by staff via wheel chair.
== END 2024-02-05 15:45 | disposition home or self-care (01) | DRG 315 ==
LOC: IMU 22:22
PROVIDERS: Family Medicine; Internal Medicine; Nurse Practitioner Family; Nurse Practitioner Gerontology; Radiology Vascular & Interventional Radiology; Registered Nurse; Student in an Organized Health Care Education/Training Program; ADMITTING PHYSICIAN Hospitalist; ATTENDING PHYSICIAN Internal Medicine; CONSULT PHYSICIAN Psychiatry & Neurology Neurology; EMERGENCY PHYSICIAN Emergency Medicine; FAMILY PHYSICIAN Student in an Organized Health Care Education/Training Program; OTHER PHYSICIAN Internal Medicine Hematology & Oncology; OTHER PHYSICIAN Psychiatry & Neurology Psychiatry
PROC: 0D2DXUZ Change Feeding Device in Lower Intestinal Tract, External Approach (ICD-10-PCS; 2023-09-22)
PROC: 02HV33Z Insertion of Infusion Device into Superior Vena Cava, Percutaneous Approach (ICD-10-PCS; 2023-09-24)
DX: T80.211A Bloodstream infection due to central venous catheter, initial encounter (principal); B37.0 Candidal stomatitis; S22.42XA Multiple fractures of ribs, left side, initial encounter for closed fracture; F11.20 Opioid dependence, uncomplicated; J96.11 Chronic respiratory failure with hypoxia; Q79.60 Ehlers-Danlos syndrome, unspecified; F13.20 Sedative, hypnotic or anxiolytic dependence, uncomplicated; K94.13 Enterostomy malfunction; R78.81 Bacteremia; D89.40 Mast cell activation, unspecified; G89.4 Chronic pain syndrome; Y83.3 Surgical operation with formation of external stoma as the cause of abnormal reaction of the patient, or of later complication, without mention of misadventure at the time of the procedure; Z66 Do not resuscitate; G90.A Postural orthostatic tachycardia syndrome [POTS]; T38.0X5A Adverse effect of glucocorticoids and synthetic analogues, initial encounter; E09.9 Drug or chemical induced diabetes mellitus without complications; M81.8 Other osteoporosis without current pathological fracture; K21.9 Gastro-esophageal reflux disease without esophagitis; G43.909 Migraine, unspecified, not intractable, without status migrainosus; E66.9 Obesity, unspecified; F41.9 Anxiety disorder, unspecified; F32.A Depression, unspecified; J45.909 Unspecified asthma, uncomplicated; G47.33 Obstructive sleep apnea (adult) (pediatric); E78.00 Pure hypercholesterolemia, unspecified; D50.9 Iron deficiency anemia, unspecified; K22.4 Dyskinesia of esophagus; K31.84 Gastroparesis; G25.81 Restless legs syndrome; G20.B1 Parkinson's disease with dyskinesia, without mention of fluctuations; G47.419 Narcolepsy without cataplexy; I73.00 Raynaud's syndrome without gangrene; F43.23 Adjustment disorder with mixed anxiety and depressed mood; F43.10 Post-traumatic stress disorder, unspecified; Y84.8 Other medical procedures as the cause of abnormal reaction of the patient, or of later complication, without mention of misadventure at the time of the procedure; I95.1 Orthostatic hypotension; E16.2 Hypoglycemia, unspecified; K58.9 Irritable bowel syndrome, unspecified; Z79.01 Long term (current) use of anticoagulants; Z11.52 Encounter for screening for COVID-19; Z68.33 Body mass index [BMI] 33.0-33.9, adult; Z74.01 Bed confinement status; Z79.4 Long term (current) use of insulin; Z79.52 Long term (current) use of systemic steroids; Z79.899 Other long term (current) drug therapy; Z86.711 Personal history of pulmonary embolism; Z86.718 Personal history of other venous thrombosis and embolism; Z99.3 Dependence on wheelchair; W18.39XA Other fall on same level, initial encounter
CPT/HCPCS: 49452; 70450; 71045; 71046; 71101; 72072; 72100; 72125; 73060; 73070; 73090; 73560; 74176; 80048; 80053; 81003; 81015; 82962; 83605; 83690; 83735; 84484; 85025; 85027; 85610; 85730; 86704; 86706; 86803; 87040; 87077; 87084; 87149; 87186; 87205; 87340; 87389; 87502; 87811; 93005; 94640; 95813; 96361; 96374; 96375; 96376; 97116; 97163; 97167; 97530; 97535; 97761; 99285; C1729; C1769; J2997

== ENCOUNTER → 2024-02-19 12:32 | Outpatient (REF) | payer OTHER, SELFPAY | LOC: RAD 12:32 | PROVIDERS: ATTENDING PHYSICIAN Internal Medicine Hematology & Oncology; FAMILY PHYSICIAN Nurse Practitioner Family | DX: M25.552 Pain in left hip (principal); M54.50 Low back pain, unspecified; G89.29 Other chronic pain | CPT/HCPCS: 72100; 73502 ==

== ENCOUNTER → 2025-01-27 12:44 | Outpatient (REF) | payer OTHER, SELFPAY | LOC: RAD 12:44 | PROVIDERS: ATTENDING PHYSICIAN Nurse Practitioner Family | DX: M79.671 Pain in right foot (principal) | CPT/HCPCS: 73630 ==

== ENCOUNTER 2025-04-03 12:28 | Emergency (ER) | payer OTHER, SELFPAY ==
[2025-04-03] VITALS (12 sets, daily range): BP systolic 0–130; BP diastolic 0–100
[2025-04-03 12:39] LABS: Glucose - Point of Care 246 mg/dl (70-99)
--- NOTE | 2025-04-03 13:21 | ED.GENMED ---
History of Present Illness
General
Chief Complaint: CODE
Source: records, family, complex care nurse practitioner and ambulance crew
Exam Limitations: clinical condition
Time Seen by Provider: 04/03/25 13:17
Nursing documentation reviewed up to this point in time: agreed with
History of Present Illness
History of Present Illness:
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
gastroparesis who presents to the emergency department via EMS in respiratory distress postcardiac arrest. Patient is critically ill and unresponsive and cannot participate in history. History is obtained from EMS report, caregiver report, family.
It sound like patient lives by herself but has regular visiting nurse/caregiver. According to her family she was recently hospitalized at [facility] for UTI and apparently some allergic response to antibiotic that was initially used to
treat her. She had returned home and her caregiver reports that they went to her apartment building to check on her today. Patient did not answer the call sanchez; caregiver was able to get into the apartment building and knock on the patient's
apartment but she did not receive a response. She apparently did hear the patient breathing and it sounded like patient was having some noisy breathing. Caregiver spent what sounds like 1 to 2 hours trying to determine a way to get into the
apartment, eventually she says that she did not hear any breathing and EMS was called.
Per EMS report upon their entering they found patient with what appeared to be agonal breathing, pale and cyanotic. They had difficulty finding a pulse, PEA rhythm on monitor and initiated CPR; right pretibial IO was placed and she was given IV
epinephrine. They performed CPR for roughly 2 minutes before obtaining ROSC. Her glucose was reportedly normal post ROSC. She was mildly hypotensive and given push dose epinephrine. She had pinpoint pupils and was given 2 mg of intranasal
Narcan. They transported her to the emergency room performed BVM ventilation.
Past History
Past History
ED Past Medical History: Asthma, GERD, Hypercholesterolemia, Psychiatric (Anxiety), Other (Mast Cell activation Syndrome, neurocardiogenic syncope, Deana Danlos, narcolepsy, dystonia, sleep apnea, chronic vertigo, chronic daily headache, raynauds,
RLS, IBS) and Other (Osteoporosis)
ED Past Surgical History: Tonsilectomy, Urological (kidney biopsy) and Other (GJ tube placement)
Social History
Tobacco: Non-smoker
Alcohol: None
Drug: None
Personal: Single
Living: with family
Employment: Employed
Family History
Family History: Other (Reviewed and noncontributory); Negative Sudden
Review of Systems
Review of Systems
Unable to obtain full review of systems at this time due to: due to acuity
All Other Systems: Not applicable
Phy Exam
Physical Exam
Physical Exam:
General: Patient is unresponsive with agonal breathing, moans to painful stimulus
Head: Normocephalic, atraumatic
Eyes: Conjunctiva normal, pupils dilated and sluggish
Throat: Patient has mucus and secretions in her upper airway requiring suctioning on arrival
Neck: Trachea midline, no JVD
Lungs: Breath sounds diminished at the lung bases but bilateral breath sounds are present; patient has agonal respirations, severely hypoxic, cyanotic
Heart: Tachycardia with regular rhythm, no murmurs, gallops, or rubs appreciated
Abd: Soft, non distended; she has a G-tube in place that appears to be broken/cut on the end and is leaking�this was clamped
Neuro: Unresponsive; moaning to painful stimulus
Skin: Cool and mottled, cyanotic
Extremities: Cool to the touch, no gross edema
Scores
Heart Failure Risk
Heart Failure Risk Score: Not Applicable
Heart Score for Chest Pain Patients
STEMI patient?: Not applicable
Withdrawal Assessment of Alcohol
Withdrawal Assessment Completed?: Not applicable
Course
Orders/Labs/Results
Orders:
Orders
04/03/25 12:29
Calcium CHLORIDE [Calcium Chloride 10% Syringe] 2,000 mg .ROUTE .STK-MED ONE
EPINEPHrine [Adrenalin 1 mg/10 ml] 6 mg .ROUTE .STK-MED ONE
Sodium Bicarbonate 150 meq .ROUTE .STK-MED ONE
04/03/25 12:36
FentaNYL 1,000 MCG/100 ML [Sublimaze] 1,000 mcg in 100 ml .ROUTE .STK-MED
Propofol 1,000,000 Mcg/100 ml [Diprivan] 1,000,000 mcg in 100 ml .ROUTE .STK-MED
04/03/25 12:53
NORepinephrine 4 MG/250 ML [Levophed] 4 mg in 250 ml .ROUTE .STK-MED
04/03/25 13:00
CR Chest Portable - 1 View Stat
Comment:
Reason For Exam: intubation
Reason Study Needs to be Portable: Unable to Transport
04/03/25 13:14
ABG [Arterial Blood Gas] Stat
%Oxygen/Room Air: 100
Comment: 500/24/100% +5
04/03/25 13:17
Electrocardiogram (*1) Urgent
Reason for Study: Abnormal EKG
CT Pe/abd/pel W Urgent
Comment:
Reason For Exam: cardiac arrest, shock, hypoxia
EKG- Treatment ONCE
Carboxyhemoglobin Urgent
Methemoglobin Urgent
Test Result ONCE
04/03/25 13:18
CT Head W/o Iv Contrast Urgent
Comment:
Reason For Exam: post arrest
FentaNYL 1,000 MCG/100 ML [Sublimaze] 1,000 mcg in 100 ml IV NOW
Indication:: Light Sedation
Begin Infusion:: Now
Goal:: pain score </= 1, CPOT 0-2
Maximum dose in mcg/hr:: 300
Continue currently infusing dose and titrate:: Yes
Titration Instructions:: Titrate every 30 minutes if patient exhibits signs of pain or discomfort
Titration Instructions:: (pain score >/= 2, CPOT >/= 3).
Titration Instructions:: Administer bolus dose and increase infusion by 25 mcg/hr.
Taper Instructions:: If pain score at goal for 4 consecutive hours (pain score </= 1, CPOT 0-2)
Taper Instructions:: decrease infusion by 50 mcg/hr every 2 hours.
Taper Instructions:: When dose </= 50 mcg/hr may turn infusion off and consider PRN
Taper Instructions:: intermittent bolus doses only.
Over-sedation Instructions:: If CPOT 0-2 (goal) and RASS -3 to -5 (below goal) decrease sedative by 50%
Over-sedation Instructions:: first. If pain score remains at goal and RASS remains below goal in 1 hour,
Over-sedation Instructions:: decrease opioid infusion by 50%.
Notify provider:: immediately if pt exhibits: chest wall rigidity, hemodynamic instability,
Notify provider:: agitation/pain despite maximum dosing, pain when RASS below goal.
Additional Instructions:: Patient MUST be mechanically ventilated.
Fentanyl Citrate/Pf [Sublimaze] 50 mcg IV NOW STA
Fentanyl Citrate/Pf [Sublimaze] 50 mcg IV [id number] PRN
NORepinephrine 4 MG/250 ML [Levophed] 4 mg in 250 ml IV NOW
Initial dose in mcg/min, then titrate:: 2
Titrate to keep:: MAP > 65 mmHg
Titrate by mcg/min:: 1-2 mcg/min
Frequency of titrations (minutes):: 5
Maximum dose in ICU in mcg/min:: 30
Maximum dose in IMU in mcg/min:: 8
Maximum dose in IVU in mcg/min:: 4
Begin to taper infusion when:: Remained at goal for 4hrs
Taper by mcg/min:: 1-2 mcg/min
Frequency of taper (minutes) if patient maintains goal:: 30
Taper to off?: Yes
If infusion off & no longer maintaining goal:: Contact Provider
Propofol 1,000,000 Mcg/100 ml [Diprivan] 1,000,000 mcg in 100 ml IV NOW
Indication:: Light Sedation
Begin Infusion:: Now
Goal:: RASS 0 to -2
Maximum dose in mcg/kg/min:: 50
Initial dose based on RASS:: Yes
If RASS is:: +1 or pt hemodynamically unstable (SBP < 90mmHg), initiate at 10 mcg/kg/min
If RASS is:: +2, initiate at 20 mcg/kg/min
If RASS is:: greater than or equal to +3, initiate at 30 mcg/kg/min
Titration Instructions:: Titrate by 5-10 mcg/kg/min every 5 minutes until RASS 0 to -2 achieved.
Taper Instructions:: If RASS is at or below goal for 4 consecutive hours decrease infusion by
Taper Instructions:: 5-10 mcg/kg/min every 2 hours to off.
Over-sedation Instructions:: If CPOT 0-2 (at goal) AND RASS -3 to -5 (below goal) decrease sedative by
Over-sedation Instructions:: 50% first. If pain score remains at goal and RASS remains below goal in
Over-sedation Instructions:: 1 hour, decrease opioid infusion by 50%.
Notify provider:: immediately if patient exhibits signs/symptoms of propofol-related
Notify provider:: infusion syndrome.
Additional Instructions:: Patient MUST be mechanically ventilated and MUST receive analgesia.
04/03/25 13:26
Type+Screen Urgent
Acetaminophen Urgent
Alcohol Urgent
COVID-19 Antigen Urgent
Source: Nasal Swab
CPK [Creatine Phosphokinase] Urgent
Complete Blood Count/With Diff Urgent
Comprehensive Metabolic Panel Urgent
HCG, Serum Qualitative Screen Urgent
Lactate Level [Lactic Acid] Urgent
Lipase Urgent
Magnesium Urgent
Manual Differential Urgent
NT-proBNP Urgent
PTT Urgent
Phos [Phosphorus] Urgent
Prothrombin Time Urgent
Salicylate Urgent
TSH Reflex To Free T4 Urgent
Triglycerides Routine
Comment: baseline levels with propofol infusion
Troponin I Urgent
Blood Culture Q30M
EMILIANO Source: Blood/Venous
Specimen Description:
Blood Culture Q30M
EMILIANO Source: Blood/Venous
Specimen Description:
04/03/25 13:29
Diphenhydramine [Benadryl] 50 mg IV NOW STA
Hydrocortisone Sod Succinate [Solu-Cortef] 200 mg IV NOW STA
04/03/25 13:43
Drug Screen, Urine [Urine Drug Abuse Screen] Urgent
Date Specimen was Collected: 04/03/25
Time Specimen was Collected: 13:23
Fentanyl, Urine Urgent
Urinalysis Reflex To Culture Urgent
Date Specimen was Collected: 04/03/25
Time Specimen was Collected: 13:23
Urine Microscopic Reflex Cult Urgent
Urine Culture Urgent
EMILIANO Source: U
Specimen Description:
Date Specimen was Collected: 04/03/25
Time Specimen was Collected: 13:23
04/03/25 13:59
EPINEPHrine [Adrenalin 1 mg/10 ml] 5 mg .ROUTE .STK-MED ONE
04/03/25 14:35
Acetaminophen 1000MG/100Ml [Ofirmev] 1,000 mg in 100 ml IV ONCE
Acetaminophen IV Indication:: No IL & No Enteral Access
Meropenem [Merrem] 1,000 mg IV NOW STA
04/03/25 14:53
Cooling [Thermal Regulation-Treatment] ONCE
Mode:: Automatic
Type of thermoregulation:: Cooling
PATIENT'S Goal Temperature:: 96.8 F (36 C)
Comments/Additional Instructions:: Temperature and skin assessment per unit protocol
04/03/25 14:55
EPINEPHrine 4 mg/250 mL NSS [Adrenalin] 4 mg in 250 ml IV NOW
Initial dose in mcg/min, then titrate:: 2
Titrate to keep:: MAP > 65 mmHg
Titrate by mcg/min:: 0.5 - 1 mcg/minute
Frequency of titrations (minutes):: 5
Maximum dose in mcg/min:: 10
Begin to taper infusion when:: Remained at goal for 4hrs
Taper by mcg/min:: 0.5 - 1 mcg/minute
Frequency of taper (minutes) if patient maintains goal:: 30
Taper to off?: Yes
If infusion off & no longer maintaining goal:: Contact Provider
04/03/25 15:17
ABG [Arterial Blood Gas] Urgent
%Oxygen/Room Air: 100
0.9% Sodium Chloride 1000 ml [Nss] 2,000 ml IV NOW STA
04/03/25 15:25
EPINEPHrine [Adrenalin 1 mg/10 ml] 4 mg .ROUTE .STK-MED ONE
04/03/25 15:30
EPINEPHrine [Adrenalin 1 mg/10 ml] 2 mg .ROUTE .STK-MED ONE
04/03/25 16:00
Sterile Water For Inj [Sterile Water For Injection 1000 ml] 1,000 ml Sodium Bicarbonate 150 meq IV 100 mls/hr
04/03/25 16:15
DNR Bracelet Application ONCE
Abnormal Lab Results
04/03/25 04/03/25 04/03/25
12:35 13:14 13:26
RBC 3.63 L 10^6/uL
(4.20-5.40)
MCV 120.1 H fL
(81.0-99.0)
MCH 37.2 H pg
(27.0-31.0)
MCHC 31.0 L g/dL
(33.0-37.0)
Abs Neuts (Manual) 1.1 L 10^3/uL
(1.4-6.5)
Segmented Neutrophils 13 L %
(42-75)
Band Neutrophils 10 H %
(0-3)
Lymphocytes (Manual) 55 H %
(20-51)
PT 15.0 H Sec
(11.4-14.6)
pH 7.13 L*
(7.35-7.45)
pCO2 74 H* mmHg
(32-35)
pO2 36 L* mmHg
(83-108)
HCO3
ABG O2 Sat (Measured) 57.3 L %
(94-98)
BUN 18 H mg/dl
(7-17)
Creatinine 1.1 H mg/dL
(0.6-1.0)
Glucose 228 H mg/dl
(70-99)
Lactic Acid 6.4 H* mmol/L
(0.7-2.0)
Phosphorus 8.9 H mg/dl
(2.5-4.5)
AST 439 H U/L
(14-36)
ALT 227 H U/L
(0-35)
Creatine Kinase 300 H U/L
(30-135)
Total Protein 6.0 L g/dl
(6.3-8.2)
Triglycerides 258 H mg/dl
(10-149)
Ur Occult Blood Reflex
Urine RBC
Urine Bacteria (Reflex)
Urine Albumin (Reflex)
Salicylates < 1.0 L mg/dl
(2.0-20.0)
Urine Opiates Screen
Ur Buprenorphine
Ur Oxycodone Screen
Acetaminophen < 10 L ug/ml
(10-30)
U Benzodiazepines Scrn
POC Glucose 246 H mg/dl
(70-99)
04/03/25 04/03/25
13:43 15:17
RBC
MCV
MCH
MCHC
Abs Neuts (Manual)
Segmented Neutrophils
Band Neutrophils
Lymphocytes (Manual)
PT
pH 7.06 L*
(7.35-7.45)
pCO2 58 H mmHg
(32-35)
pO2 39 L* mmHg
(83-108)
HCO3 16.4 L mmol/L
(21-28)
ABG O2 Sat (Measured) 61.9 L %
(94-98)
BUN
Creatinine
Glucose
Lactic Acid
Phosphorus
AST
ALT
Creatine Kinase
Total Protein
Triglycerides
Ur Occult Blood Reflex 1+ A
(Negative)
Urine RBC 7-10 A /HPF
(0-2)
Urine Bacteria (Reflex) Moderate A
(Negative)
Urine Albumin (Reflex) 1+ A
(Neg - Trace)
Salicylates
Urine Opiates Screen Positive H
(Negative)
Ur Buprenorphine Positive H
(Negative)
Ur Oxycodone Screen Positive H
(Negative)
Acetaminophen
U Benzodiazepines Scrn Positive H
(Negative)
POC Glucose
04/03/25 13:26
04/03/25 13:26
Vital Signs
Initial and Last Documented VS:
Initial Vital Signs
Pulse BP
108 119/100
04/03/25 12:33 04/03/25 12:33
Last Documented Vital Signs
Temp Pulse Resp BP Pulse Ox
38.7 C H 102 29 74/17 55
04/03/25 16:10 04/03/25 15:45 04/03/25 15:45 04/03/25 15:15 04/03/25 15:45
Procedures
Intubations
Procedure completed by: Abdi Clark MD
Method of Intubation: glidescope
Tube size (cm): 7.5
Placement confirmed by: auscutation, CXR, capnography and direct visualization
Breath sounds after intubation: equal
Intubation complications: no complications
Central Line
Left Femoral:
Indication for procedure:: shock, cardiac arrest, poor peripheral access
Procedure completed by: Abdi Clark MD
If no, reason: Emergency procedure
Central line lumen: triple
Number of attempts: 1
Central line complications: none
Sterile dressing applied?: Yes
Other
Indication for procedure:: shock
Procedure completed by: Abdi Clark MD
If no, reason: Emergency procedure
Additional Procedure:
Arterial line placement (right radial artery)
Radial artery located by palpation and ultrasound
Radial and ulnar pulses present and reasonable perfusion by Doroteo test
Area was prepped and draped in usual sterile fashion
Needle advanced into the radial artery under direct ultrasound visualization
Guidewire advanced without resistance
20-gauge catheter placed over guidewire
Guidewire removed, catheter attached to arterial line set up
Catheter sutured to the skin
Sterile dressing applied
Patient tolerated procedure without major complications
MDM/Problems Addressed
Differential Diagnosis Includes:
Shock and hypoxia: Differential would include CHF, massive aspiration, pneumonia/sepsis, massive PE, anaphylaxis with shock
MDM/Problems Addressed:
An unfortunate and complicated case of 34-year-old female who presents to the ER in respiratory distress with agonal breathing after cardiac arrest in the field. Vitals and appearance as noted above. On arrival she was immediately placed on
plan examiner. She was hypotensive and severely hypoxic and cyanotic. RSI medications given through right pretibial IO and patient was intubated as documented procedure note on first attempt. Passage into vocal cords directly visualized and
tube confirmed with end tidal CO2, auscultation. Chest x-ray showed appropriate position on my review at bedside. Shortly after intubation she had a brief cardiac arrest and required ACLS. Bradycardic wide-complex rhythm consistent with PEA. She
was given IV epinephrine, IV bicarbonate, IV calcium. Obtained ROSC after 2 minutes.
Throughout the next 90 minutes of resuscitation patient had 2 additional cardiac arrests lasting for a few minutes each at which time she received IV epinephrine. Left femoral central line placed due to difficult peripheral IV access. I also placed
arterial line due to difficulty obtaining reliable blood pressures using the cuff. She was ultimately started on norepinephrine infusion. Despite intubation and ventilator setting adjustment continued to have difficulty oxygenating patient�arterial
blood gas showed very poor PaO2. Case was discussed with the ream cutter at bedside regarding possibility of PE�bedside ultrasound performed by myself and ream cutter showed no signs of RV strain clearly. Patient was stabilized for CT and taken
for a CT of the head, chest/abdomen/pelvis.
CT head showed no acute abnormalities, CT chest/abdomen/pelvis showed no clear PE but what looks like bilateral multifocal pneumonia. She did have fever here. Unfortunately she has multiple severe antibiotic allergies ultimately opted to treat
with empiric meropenem. She was started on bicarbonate infusion, epinephrine infusion after her a fourth cardiac arrest upon return from CT. Case was discussed with hospitalist and ream cutter to facilitate admission upstairs�at this point working
diagnosis is hypoxemic cardiac arrest secondary to severe multifocal pneumonia now with septic shock. Will proceed with cooling. Unclear whether this may have been precipitated by an aspiration event�patient does have a history of
seizures/neurocardiogenic syncope events in the past. I did speak to the patient's parents multiple times as well as her sister and her caregiver and provided updates�I explained that at this point neurologic prognostication is very difficult but
that prolonged hypoxia likely will result in some degree of brain injury.
After my initial discussions with the hospitalist and ream cutter the hospitalist team spoke with the patient's family members including her medical power of carpet renovator about grave prognosis in this situation. Apparently patient did have a previous
order for a DNR and after discussion with the family they wish to respect this wish and pursue comfort measures for the patient. I confirmed that this means they wish to discontinue all supportive medications including vasopressors and to
palliatively extubate the patient. Family did request autopsy according to hospitalist nurse practitioner. Will proceed with comfort measures per family request.
Even prior to palliative extubation or discontinuing medications, the patient unfortunately suffered another cardiac arrest. Shortly thereafter she was noted to be in asystole. No pulse noted, no spontaneous respirations. [id number] ultrasound
showed no cardiac activity. She was pronounced by me at 16:24. I spoke with the family. Discussed with [facility] analyst (Delbert July)�[place] [facility] [place] but will put a hold on the body for now pending review. Faxed medical
records to nurse research.
Chronic conditions affecting care:
Mastel activation syndrome, diabetes, gastroparesis
*Radiology
Radiology exam reviewed: preliminary read by ED provider and radiology read reviewed
*Pulse Oximetry
Patient hypoxic: yes (50%)
*EKG
Interpreted by ED Provider?: Yes
Heart Rate: 101
Rate: tachycardiac
Rhythm: sinus and sinus tachycardia
Vancleve: normal axis
Interval: normal interval
QRS Pattern: right bundle branch block (incomplete)
Ischemia: non-specific ST changes
*Critical Care Note
Total Time (30-74mins, 75-104mins- exclusive of procedures): 97
comment:
Critical care statement: A total of 97 minutes of critical care time was provided for this patient. This includes management of unstable vital signs, evaluation of the patient at bedside, frequent reassessment, discussion with
consultants/hospitalist, and review of pertinent medical records. This time was separate from time utilized to perform any aforementioned documented procedures
Data Reviewed
Review of Other/Old Records Reveals: Labs and Records
Source: records, family, complex care nurse practitioner and ambulance crew
Prescriptions/Medications Considered But Not Given:
Considered empiric tenecteplase for possibility of massive PE with severe hypoxemia and unstable vital signs
Patient Management
Discussion with other providers: Hospitalist (Discussed with hospitalist) and [employer] (Discussed with ream cutter who evaluated the bedside)
ED Attending Note
-
Portions of this chart may have been created with voice recognition software.� Occasional wrong word or��sound alike� substitutions may have occurred due to the inherent limitations of voice recognition software.
Discharge Plan
Departure
Patient Disposition:
Date of Disposition: 04/03/25
Time of Disposition: 16:30
Discharge Problem:
Shock, Cardiac arrest, Pneumonia, Sepsis, Acute hypoxemic respiratory failure
Prescriptions:
No Action
propranolol 10 MG tablet
10 mg feeding tube TID
cetirizine 10 MG tablet
10 mg feeding tube BID@1700,2200
rabeprazole [AcipHex] 20 MG tablet,delayed release (DR/EC)
20 mg PO BID
budesonide 0.5 MG/2 ML suspension for nebulization
0.5 mg inhalation R BID
ferrous sulfate [FeroSul] 325 MG tablet
325 mg PO HS
Nurtec ODT 75 MG tablet,disintegrating
75 mg PO DAILYPRN PRN (Reason: migraine)
thiamine HCl (vitamin B1) 100 mg Tablet
100 mg feeding tube DAILY
baclofen 10 mg Tablet
10 mg feeding tube TID@0600,1400,2200
lorazepam 2 mg/mL concentrate
2 mg sublingual Q6H PRN (Reason: dystonia)
imatinib [Gleevec] 100 mg Tablet
200 mg PO DAILY@1400
fexofenadine 180 mg Tablet
180 mg PO BID
carbidopa-levodopa [Sinemet] 25-100 mg Tablet
2 tab feeding tube BID@1400,1800
carbidopa-levodopa [Sinemet] 25-100 mg Tablet
1.5 tab feeding tube BID@0600,1000
ondansetron HCl (PF) 4 mg/2 mL Solution
4 mg IV Q6HPRN PRN (Reason: severe nausea/vomiting)
albuterol sulfate 2.5 mg /3 mL (0.083 %) solution for nebulization
2.5 mg inhalation R Q6HPRN PRN (Reason: anaphylaxis)
hydromorphone 8 mg tablet
8 mg PO Q3HPRN PRN (Reason: severe pain)
simethicone 80 mg Tablet,Chewable
80 mg PO HS PRN (Reason: gas)
buprenorphine HCl 2 mg tablet, sublingual
2 mg SUBLINGUAL QID
Patient Comments:
06/11/2023: last filled 05/16/23, 120 tabs for 30 days from [facility][id number]
calcium citrate-vitamin D3 200 mg-6.25 mcg (250 unit) Tablet
4 tab PO BID
aprepitant [Emend] 80 mg Capsule
80 mg PO DAILY
hydroxyurea 500 mg Capsule
500 mg PO BID Qty: 60 0RF
cromolyn 100 mg/5 mL Concentrate
300 mg PO QID
ketotifen fumarate 0.025 % (0.035 %) Drops
1 drp BOTH EYES BID
prednisone 5 mg Tablet
10 mg feeding tube BID
fluticasone propionate 50 mcg/actuation [place],Suspension
2 spray INTRANASAL DAILY PRN (Reason: allergies)
etonogestrel-ethinyl estradiol [NuvaRing] 0.12-0.015 mg/24 hr Ring
1 vag ring VAGINAL Q4W
Patient Comments:
Prescribed [id number] (no ring-free week) but patient replaces [id number] (no ring-free week)
08/30/2023, pt. changed on Friday (08/27/2023).
insulin lispro 100 unit/mL Insulin Pen
0 sliding scale dose SC DIRECTED
Rx Instructions:
08/30/2023, if BS 70-140= 0 units; 141-200= 1 unit; 201-250= 2 units; 251-300= 3 units; 301-350= 4 units; >351= 5 units.
cholecalciferol (vitamin D3) 1,250 mcg (50,000 unit) Capsule
1,250 mcg PO MO@0800
Ketotifen 1 mg capsule
1 mg PO BID
Patient Comments:
08/30/2023, per pt., she gets this med. specially compounded for her at [facility] in [place]. Pharmacy closed at time of interview.
acetaminophen 325 mg Tablet
650 mg PO Q4HPRN PRN (Reason: mild pain/fever) Qty: 90 0RF
lorazepam 1 mg Tablet
1 mg sublingual Q6H Qty: 30 0RF
ipratropium-albuterol 0.5 mg-3 mg(2.5 mg base)/3 mL Solution For Nebulization
3 ml inhalation R Q4HPRN PRN (Reason: sob/wheeze) Qty: 90 0RF
bisacodyl 10 mg Suppository
10 mg IL [id number] PRN (Reason: constipation) Qty: 30 0RF
docusate sodium 100 mg Capsule
100 mg PO BID Qty: 60 0RF
Eliquis 5 mg Tablet
5 mg PO BID Qty: 60 0RF
lidocaine 4 % Adhesive Patch,Medicated
1 patch topical DAILY Qty: 30 0RF
polyethylene glycol 3350 [HealthyLax] 17 gram Powder In Packet
17 g feeding tube DAILY Qty: 30 0RF
budesonide 0.5 mg/2 mL Suspension For Nebulization
0.5 mg inhalation R BID Qty: 1 0RF
insulin aspart U-100 100 unit/mL (3 mL) Insulin Pen
3 unit SC AC Qty: 1 0RF
diphenhydramine HCl [Children's Allergy (diphenhyd)] 12.5 mg/5 mL Liquid
50 mg feeding tube Q4 Qty: 500 3RF
famotidine 40 mg Tablet
40 mg PO BID Qty: 60 0RF
insulin lispro 100 unit/mL insulin pen
3 unit SC AC Qty: 0 0RF
insulin glargine [Lantus Solostar U-100 Insulin] 100 unit/mL (3 mL) insulin pen
5 unit SC DAILY Qty: 0 0RF
Referrals:
UNKNOWN - PT NOT,INTERVIEWE [Family Provider]
Interventions
Interventions:
*Risk Screen - Suicide Last Done: 04/03/25 12:33
*General Assessment Last Done: 04/03/25 12:33
*Neglect/Abuse Screening Last Done: 04/03/25 12:33
*ED COVID-19 Vaccine History Last Done: 04/03/25 12:33
*ED Influenza Vaccine History Last Done: 04/03/25 12:33
ED- Cardiac Assessment Last Done: 04/03/25 12:33
ED- Pulmonary Assessment Last Done: 04/03/25 12:33
Discharge Date and Time
Print Language: MAURITIAN
Pronouncement of
-
Called to see patient to pronounce.
No spontaneous heart tones or respirations noted.
Patient not responsive to verbal stimuli.
Patient is pronounced .
Time of : 16:24
Date of : 04/03/25
Cause of : hypoxemic respiratory failure
Family Notified: Yes
[2025-04-03 13:32] LABS: B.E. -6.2 mmol/L; HCO3 24.6 mmol/L (21-28); O2 Saturation % 57.3 % (94-98)
[2025-04-03 13:35] LABS: PCO2 74 mmHg (32-35); PO2 36 mmHg (83-108)
[2025-04-03] MEDS: DIPRIVAN 100 IV (13:48)
[2025-04-03] MEDS: SUBLIMAZE 100 IV (14:00)
[2025-04-03 14:01] LABS: HCG, Serum Qualitative Screen Negative
[2025-04-03] MEDS: BENADRYL 50 MG IV (14:02)
[2025-04-03] MEDS: SOLU-CORTEF 200 MG IV (14:03)
[2025-04-03 14:05] LABS: Urine Character Clear (Clear)
[2025-04-03 14:06] LABS: ALT (SGPT) 227 U/L (0-35); AST (SGOT) 439 U/L (14-36); Acetaminophen < 10 ug/ml (10-30); Albumin 3.7 g/dl (3.5-5.0); Alkaline Phosphatase 69 U/L (38-126); Blood Urea Nitrogen 18 mg/dl (7-17); Calcium 9.3 mg/dl (8.4-10.2); Carbon Dioxide 30 mmol/L (22-30); Chloride 101 mmol/L (98-107); Glucose 228 mg/dl (70-99); Lipase 185 U/L (23-300); Magnesium 2.3 mg/dl (1.6-2.3); Potassium 4.1 mmol/L (3.5-5.1); Salicylate < 1.0 mg/dl (2.0-20.0); Sodium 138 mmol/L (135-145); Total Protein 6.0 g/dl (6.3-8.2); Triglycerides 258 mg/dl (10-149); eGFR > 60.00
[2025-04-03 14:08] LABS: INR 1.15; PT 15.0 Sec (11.4-14.6)
[2025-04-03 14:09] LABS: APTT 28.8 Sec (23.4-35.0)
[2025-04-03 14:10] LABS: Hematocrit 43.6 % (37.0-47.0); Hemoglobin 13.5 g/dL (12.0-16.0); Mean Corp Hgb Conc. 31.0 g/dL (33.0-37.0); Mean Corpuscular Volume 120.1 fL (81.0-99.0); Platelet Count 255 10^3/uL (130-400); Red Cell Dist. Width 14.5 % (11.5-14.5)
[2025-04-03 14:14] LABS: Troponin I 0.027 ng/ml
[2025-04-03 14:32] LABS: Absolute Neutrophils -Man Diff 1.1 10^3/uL (1.4-6.5)
[2025-04-03 14:33] LABS: Anisocytosis 1+; Normal RBC Morphology No; Platelets Checked Yes; Polychromasia 1+
[2025-04-03 14:34] LABS: Basophilic Stippling 1+; Stomatocytes 1+; Total Cells Counted 100
[2025-04-03] MEDS: LEVOPHED 250 IV (14:47)
--- NOTE | 2025-04-03 15:02 | HPS.HSE ---
Family Physician
-
Family Physician: INTERVIEWE UNKNOWN - PT NOT
Medical History
Allergies / Home Medications
Allergies reflects when Allergies were last updated in [facility].
Home Medications with original date entered in [facility]
Physical Exam
Vital Signs
Vital Signs
Temp Pulse Resp BP Pulse Ox
38.2 F L 48 30 88/59 33
04/03/25 14:44 04/03/25 14:30 04/03/25 14:30 04/03/25 14:27 04/03/25 14:00
Laboratory Results
-
04/03/25 13:26
04/03/25 13:26
Laboratory Results
PT 15.0 Sec (11.4-14.6) H 04/03/25 13:26
INR 1.15 04/03/25 13:26
APTT 28.8 Sec (23.4-35.0) 04/03/25 13:26
pH 7.13 (7.35-7.45) L* 04/03/25 13:14
pCO2 74 mmHg (32-35) H* 04/03/25 13:14
pO2 36 mmHg (83-108) L* 04/03/25 13:14
HCO3 24.6 mmol/L (21-28) 04/03/25 13:14
Lactic Acid 6.4 mmol/L (0.7-2.0) H* 04/03/25 13:26
Total Bilirubin 0.6 mg/dl (0.2-1.3) 04/03/25 13:26
AST 439 U/L (14-36) H 04/03/25 13:26
ALT 227 U/L (0-35) H 04/03/25 13:26
Alkaline Phosphatase 69 U/L (38-126) 04/03/25 13:26
Troponin I 0.027 ng/ml 04/03/25 13:26
Lipase 185 U/L (23-300) 04/03/25 13:26
Impression/Plan
-
IMPRESSION:
PLAN:
[2025-04-03] MEDS: MERREM 1000 MG IV (15:04)
[2025-04-03] MEDS: OFIRMEV 100 IV (15:04)
[2025-04-03 15:28] LABS: B.E. -14.1 mmol/L; HCO3 16.4 mmol/L (21-28); O2 Saturation % 61.9 % (94-98); PCO2 58 mmHg (32-35)
[2025-04-03 15:31] LABS: PO2 39 mmHg (83-108)
[2025-04-03] MEDS: ADRENALIN 250 IV (15:37)
[2025-04-03] MEDS: NSS 2000 ML IV (15:38)
--- NOTE | 2025-04-03 15:49 | W.PN.UPDATE ---
Update Note
Progress Note Update
I was called by the ER physician, Dr. Clark, to come to ER to evaluate the patient as she was undergoing CPR for cardiac arrest. I immediately went down to see the patient, who had now obtained ROSC. PocUS performed showing RV dilation but no
evidence of D sign or pericardial effusion. IVC appeared plump with minimal respiratory variation. Patient's pupils remained dilated and fixed, and she had no gag reflex. Blood gas obtained showed a PaO2 of 36. Now that ROSC obtained, patient
was going to CT for CT head, CTA chest, abdomen and pelvis. CT chest showed significant bilateral pneumonia and CT head showed no acute intracranial abnormality.
While patient was going to imaging, I stopped and spoke to the patient's mother, Bobby, and explained the current clinical status of Mary. The patient's mother was extremely emotional and support was provided to her. I updated the ER physician of
my discussion with the mother.
The patient then return from imaging and then was going to be coming up to the ICU, however she suffered another cardiac arrest in the ER. The patient's family was notified and per documentation, the patient's brother, JOHN, as well as the patient's
father, Abdi, decided to withdraw care. CPR was stopped and the patient .
[2025-04-03 15:53] LABS: COVID-19 Antigen Negative (Negative)
[2025-04-03] MEDS: SODIUM BICARBONATE 1150 MEQ IV (15:53)
--- NOTE | 2025-04-03 16:16 | CON.HOSP ---
Addendum entered and electronically signed by Alex Wild MD 04/03/25 16:35:
This is an addendum to H&P written by Mali Barros �on 04/03/2025. �Patient seen and examined independently with [facility].
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
migraines, GERD, benzodiazepine/opiate dependence, restless leg syndrome, insomnia, vocal cord dysfunction, Erler's Danlos syndrome with hypermobility, gastroparesis, chronic anemia presenting with respiratory distress.
Per family she was recently hospitalized at [facility] for UTI and had allergic reaction to antibiotic. �When professor of mathematics checked on her today and was unable to get into the apartment. �Eventually she states that patient did not hear any
breathing so called EMS.
EMS found her agonal breathing and pale and cyanotic. �They difficulty finding a pulse with PEA rhythm and initiated CPR. �Pretibial IO was placed and she was given epinephrine. �CPR was performed for 2 minutes before achieving ROSC. �Glucose was
normal. �Patient was mildly hypotensive and given epinephrine. �She had pinpoint pupils was given 2 mg of intranasal Narcan.
Vital signs show tachycardia. �Hypotension. �Temperature 101. �Patient was noted to have horizontal cut through central line and GJ tube.
Labs show lactic acid 6.4. �Close to 28. �Creatinine 1.1. �AST of 439, ALT 227. �Creatinine kinase of 300.
Patient was given steroids and Benadryl due to contrast allergy before CT imaging.
Chest x-ray shows no acute findings. �CT abdomen pelvis shows large dense bilateral lower lobe consolidations. �Patchy opacities centrally in the upper lobes and right midlung which may be inflammatory. �No abdominal pathology. �Multiple compression
fractures.
Patient currently on Levophed, epinephrine drip. �Patient was given IV fluids, treated with meropenem. �Patient sedated with propofol drip, fentanyl drip. �Bicarb drip started.
Patient with cardiac arrest unclear etiology. �Possibly hypoxemic respiratory failure from pneumonia versus air embolism from cut central line.
Patient underwent second cardiac arrest in the emergency room. �Her brother Miller who is primary POA Father Abdi who is secondary POA decided to withdraw care and CPR was not pursued. Patient was not admitted to hospital. �Patient already had DNR
through palliative care Dr. Noy Swartz.
Family would like to pursue autopsy.
Original Note:
Family Physician
-
Family Physician: INTERVIEWE UNKNOWN - PT NOT
Chief Complaint
-
Cardiac arrest/pulmonary arrest, fever,
History of Present Illness
34-year-old female from home where she lives alone with caregivers. Her mother states caregivers are supposed to be 24 hours however they have not been. She was left alone overnight she was found this morning by caregiver approximately around 9 AM
who heard her moaning. According to ER chart she was recently hospitalized at [facility] for UTI and apparently some allergic response to antibiotic that was initially used to treat her. She had returned home and her caregiver reports that
they went to her apartment building to check on her today. Caregiver called 911 who broke into patient's apartment where she was found to be short of breath and moaning. Patient was transported to ER hypoxic being bagged but moaning. She was
hypoxic and hypotensive went into cardiac arrest required intubation in ER she had subsequent 5 cardiac arrests in the ER. She is maxed on epinephrine and Levophed she is on no current sedation, pupils fixed 6 mm, patient arrived with horizontal
cuts through her central line right upper chest and horizontal cut GJ tube of unclear etiology. Her T-shirt with no sleeves was cut vertically through the center by EMS in no proximity to the central line or GJ tube. Patient does have occasional
posturing. She was DNR following with [facility] from August 2023 however mother and professor of mathematics were unaware of this but brother Miller at bedside was aware. Patient at 1620 on own
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
opiate dependence, benzodiazepine dependence.
Medical History
Past Medical History
Past Medical History: Reports Other
Additional Past Medical History:
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
POT
dopa responsive dystonia
Central line present right upper chest wall
steroid-induced DM2
chronic nausea/esophageal dysmotility with G-tube
GERD
DVT/PE
chronic pain syndrome
osteoporosis
chronic Benadryl pump
migraine headaches
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
Deana-Danlos syndrome with hypermobility type
Raynaud's phenomena
history COVID
restless leg syndrome
insomnia,
chronic pain with opiate dependence, benzodiazepine dependence.
Class III obesity
Past Surgical History: Reports Other
Additional Past Surgical History:
Sanger teeth extraction
GJ tube
Right upper chest wall central line
Social History
Tobacco: Non-smoker
Alcohol: None
Drug: Other (Patient on prescription opiates, benzos)
Personal: Single
Living: Alone
Employment: Disabled
Family History
Family History: Reviewed & Not Pertinent
Allergies / Home Medications
Allergies reflects when Allergies were last updated in [facility].
Home Medications with original date entered in [facility]
Allergy/Medication List:
Allergies
Allergy/AdvReac Type Severity Reaction Status Date / Time
azithromycin Allergy Unknown Verified 04/03/25 14:33
cefepime Allergy Unknown Verified 04/03/25 14:33
dog dander Allergy Unknown Verified 04/03/25 14:33
erythromycin base Allergy Unknown Verified 04/03/25 14:33
escitalopram (From Lexapro) Allergy Unknown Verified 04/03/25 14:33
gabapentin Allergy Unknown Verified 04/03/25 14:33
gluten Allergy Unknown Verified 04/03/25 14:33
grass pollen Allergy Unknown Verified 04/03/25 14:33
house dust Allergy Unknown Verified 04/03/25 14:33
ibuprofen Allergy 'not Verified 04/03/25 14:33
supposed
to take
d/t
proteinuria'
Iodinated Contrast Media Allergy Unknown Verified 04/03/25 14:33
lactose Allergy Nausea / Verified 04/03/25 14:33
Vomiting
lamotrigine (From Lamictal) Allergy Unknown Verified 04/03/25 14:33
mold Allergy Unknown Verified 04/03/25 14:33
montelukast (From Singulair) Allergy Unknown Verified 04/03/25 14:33
nortriptyline Allergy Tachycardia Verified 04/03/25 14:33
peanut Allergy Anaphylaxis Verified 04/03/25 14:33
soy Allergy Unknown Verified 04/03/25 14:33
topiramate (From Topamax) Allergy Unknown Verified 04/03/25 14:33
tree and shrub pollen Allergy Unknown Verified 04/03/25 14:33
vancomycin Allergy Unknown Verified 04/03/25 14:33
weed pollen Allergy Unknown Verified 04/03/25 14:33
Home Medications
propranolol 10 mg tablet 10 mg feeding tube TID Heart disease/condition 04/16/15
cetirizine 10 mg tablet 10 mg feeding tube BID@1700,2200 Allergies 11/03/20
budesonide 0.5 mg/2 mL suspension for nebulization 0.5 mg inhalation R BID Lung/breathing issues 09/27/21
rabeprazole 20 mg tablet,delayed release (AcipHex) 20 mg PO BID Gastrointestinal issue 09/27/21
ferrous sulfate 325 mg (65 mg iron) tablet (FeroSul) 325 mg PO HS Supplement 10/02/21
rimegepant 75 mg disintegrating tablet (Nurtec ODT) 75 mg PO DAILYPRN PRN migraine 10/02/21
baclofen 10 mg tablet 10 mg feeding tube TID@0600,1400,2200 Muscle Spasms 05/13/22
imatinib 100 mg tablet (Gleevec) 200 mg PO DAILY@1400 [facility] 05/13/22
lorazepam 2 mg/mL oral concentrate 2 mg sublingual Q6H PRN dystonia 05/13/22
thiamine HCl (vitamin B1) 100 mg tablet 100 mg feeding tube DAILY Supplement 05/13/22
fexofenadine 180 mg tablet 180 mg PO BID Allergies 06/18/22
carbidopa 25 mg-levodopa 100 mg tablet (Sinemet) 1.5 tab feeding tube BID@0600,1000 DYSTONIA 08/17/22
carbidopa 25 mg-levodopa 100 mg tablet (Sinemet) 2 tab feeding tube BID@1400,1800 DYSTONIA 08/17/22
ondansetron HCl (PF) 4 mg/2 mL injection solution 4 mg IV Q6HPRN PRN severe nausea/vomiting 02/11/23
albuterol sulfate 2.5 mg/3 mL (0.083 %) solution for nebulization 2.5 mg inhalation R Q6HPRN PRN anaphylaxis 06/11/23
buprenorphine HCl 2 mg sublingual tablet 2 mg sublingual QID Pain 06/11/23
calcium 200 mg (as citrate)-vitamin D3 6.25 mcg (250 unit) tablet 4 tab PO BID Supplement 06/11/23
hydromorphone 8 mg tablet 8 mg PO Q3HPRN PRN severe pain 06/11/23
simethicone 80 mg chewable tablet 80 mg PO HS PRN gas 06/11/23
aprepitant 80 mg capsule (Emend) 80 mg PO DAILY [facility] 06/23/23
hydroxyurea 500 mg capsule 500 mg PO BID #60 caps 07/02/23
Ketotifen 1 mg PO BID Allergies 08/30/23
cholecalciferol (vitamin D3) 1,250 mcg (50,000 unit) capsule 1,250 mcg PO MO@0800 Supplement 08/30/23
cromolyn 100 mg/5 mL oral concentrate 300 mg PO QID Allergies 08/30/23
etonogestrel 0.12 mg-ethinyl estradiol 0.015 mg/24 hr vaginal ring (NuvaRing) 1 vag ring vaginal Q4W control 08/30/23
fluticasone propionate 50 mcg/actuation nasal spray,suspension 2 spray intranasal DAILY PRN allergies 08/30/23
insulin lispro 100 unit/mL subcutaneous pen 0 sliding scale dose SC DIRECTED Diabetes 08/30/23
ketotifen fumarate 0.025 % (0.035 %) eye drops 1 drp BOTH EYES BID Eye Condition 08/30/23
prednisone 5 mg tablet 10 mg feeding tube BID Anti-Inflammatory 08/30/23
acetaminophen 325 mg tablet 650 mg (2 x 325 mg) PO Q4HPRN PRN mild pain/fever #90 tabs 01/08/24
apixaban 5 mg tablet (Eliquis) 5 mg PO BID #60 tabs 01/08/24
bisacodyl 10 mg rectal suppository 10 mg WI [id number] PRN constipation #30 ea 01/08/24
budesonide 0.5 mg/2 mL suspension for nebulization 0.5 mg (2 mL) inhalation R BID #1 mL 01/08/24
docusate sodium 100 mg capsule 100 mg PO BID #60 caps 01/08/24
insulin aspart U-100 100 unit/mL (3 mL) subcutaneous pen 3 unit (0.03 mL) SC AC #1 mL 01/08/24
ipratropium 0.5 mg-albuterol 3 mg (2.5 mg base)/3 mL nebulization soln 3 ml inhalation R Q4HPRN PRN sob/wheeze #90 mL 01/08/24
lidocaine 4 % topical patch 1 patch topical DAILY #30 ea 01/08/24
lorazepam 1 mg tablet 1 mg sublingual Q6H #30 tabs 01/08/24
polyethylene glycol 3350 17 gram oral powder packet (HealthyLax) 17 g feeding tube DAILY #30 ea 01/08/24
diphenhydramine HCl 12.5 mg/5 mL oral liquid (Children's Allergy (diphenhydramine)) 50 mg (20 mL) feeding tube Q4 #500 mL 02/05/24
famotidine 40 mg tablet 40 mg PO BID #60 tabs 02/05/24
insulin glargine 100 unit/mL (3 mL) subcutaneous pen (Lantus Solostar U-100 Insulin) 5 unit (0.05 mL) SC DAILY Diabetes #0 mL 02/05/24
insulin lispro 100 unit/mL subcutaneous pen 3 unit (0.03 mL) SC AC Diabetes #0 mL 02/05/24
Review of Systems
-
History Source: Patient and Family (Brother Miller POLeti at bedside with his , father Jonel via [employer] on phone POA, mother at bedside, stepfather, [id number])
Constitutional: Reports Fever and Other (Unresponsive, grayish in color due to hypoxia difficult ventilation)
EENT: Reports Other (Intubated in ER, NG tube)
Abdomen/GI: Reports Other (Brown liquid leaking out of cut GJ tube)
Skin: Reports Other (Multiple bruises across lower abdomen however patient takes subcu Lovenox)
Psych: Reports Other (Intubated)
Physical Exam
Vital Signs
Vital Signs
Temp Pulse Resp BP Pulse Ox
101.7 F H 102 29 74/17 55
04/03/25 16:10 04/03/25 15:45 04/03/25 15:45 04/03/25 15:15 04/03/25 15:45
Physical Exam
General: Fever (101) and Intubated (And unresponsive)
HEENT: Atraumatic, PERRLA (6 mm fixed) and Other (On ventilator 500, 100%, respiratory rate 30 PEEP 10)
Respiratory: Other (Patient intubated only oxygenating at 50-66%)
Cardiac: S1/S2 and Regular Rhythm (95 bpm); Negative Murmur, Rub or Peripheral Edema
Breast: Deferred by me
GI: Soft, Non Tender, Non Distended, Normal Bowel Sounds and Other (Left-sided GJ tube horizontally cut tip missing present on admission unclear etiology)
Rectal: Deferred by Provider
Musculoskeletal: Cyanosis (Face arms legs grayish in color due to hypoxia) and No Edema
Skin: Warm, Dry and Other (Skin grayish in color)
Neuro: Other (Intubated unresponsive)
Psych: Other (Intubated unresponsive)
Laboratory Results
-
Laboratory Results
04/03/25 13:26
04/03/25 13:26
PT 15.0 Sec (11.4-14.6) H 04/03/25 13:26
INR 1.15 04/03/25 13:26
APTT 28.8 Sec (23.4-35.0) 04/03/25 13:26
pH 7.06 (7.35-7.45) L* 04/03/25 15:17
pCO2 58 mmHg (32-35) H 04/03/25 15:17
pO2 39 mmHg (83-108) L* 04/03/25 15:17
HCO3 16.4 mmol/L (21-28) L 04/03/25 15:17
Lactic Acid 6.4 mmol/L (0.7-2.0) H* 04/03/25 13:26
Total Bilirubin 0.6 mg/dl (0.2-1.3) 04/03/25 13:26
AST 439 U/L (14-36) H 04/03/25 13:26
ALT 227 U/L (0-35) H 04/03/25 13:26
Alkaline Phosphatase 69 U/L (38-126) 04/03/25 13:26
Troponin I 0.027 ng/ml 04/03/25 13:26
Lipase 185 U/L (23-300) 04/03/25 13:26
Data Reviewed
-
Diagnostic Radiology: Report Reviewed by Me
CT Scan: Report Reviewed by Me
Lab Data: Labs Reviewed
Impression / Plan
-
Impression/plan:
Medical consultation
#Acute cardiac arrest/respiratory arrest possible septic shock concern possible aspiration pneumonia versus Overdose
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
#History of T wave inversions on EKG September 2024
4 episodes of cardiac arrest while in ER
WBC 5, 10% bandemia
Temp 100.7 F, BP 39/27> 88/59 post Levophed
- Patient intubated- O2 sat 33% on arrival
- Consult event staff member
- IV Levophed, IV epinephrine
-IV Tylenol for fever
Blood cultures x 2
-IV meropenem was given in ER
- Chiang catheter was inserted
Family brother Miller LOPEZ Father Jonel LOPEZ wishing to withdraw care to patient's DNR wishes and her POA
Patient passed on own without withdrawal of care in ER
CT head no acute intracranial abnormality no acute bleed
CXR:Endotracheal tube with tip in trachea above the lamont and nasogastric tube with
tip in stomach.
Extremely low lung volumes, evaluation limited, as described,
cannot exclude acute pulmonary edematous changes or CHF.
No findings to confirm pneumothorax.
There are no findings to confirm pneumothorax or significant pleural effusion.
CT chest abdomen pelvis
1. Large dense bilateral lower lobe consolidations extending to and obscuring the hilar bilaterally.
2. Patchy opacities centrally in the upper lobes and right middle lobe which may be inflammatory. No pneumothorax or significant pleural effusion.
3. No findings to suggest central pulmonary embolism.
4. Markedly limited evaluation of the abdomen limited due to several factors, as detailed above, without acute abnormality seen.
5. Multiple thoracic and lumbar vertebral compression fractures, most likely remote.
#Polysubstance abuse
UDS positive opiates, buprenorphine, oxycodone, benzos
#Acute transaminitis likely shock liver could be possible sepsis
AST 439, ALT 227, alk phos 69
Will trend CMP
-CT abdomen benign for liver disease
#Witnessed poss seizure activity vs chronic Dystonia
#Hx chronic benzo dependent
Seizure activity witnessed by ER physician Dr. Chiang x 7 minutes required IV Ativan
-Seizure precautions
-Consult neurology- seen by Dr barnes at bedside
#History of central line right upper chest 1 line horizontally cut unclear reason present on admission
#Chronic PICC line not present on admission
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
#Mast Cell Activation Syndrome
#DOPA-Responsive Dystonia with Acute Flare
-follows with Dr. Lizabeth Villanueva at [facility] hematology.
Was on Benadryl pump in past and lorazepam
- Patient takes Ativan / Benadryl (pump) 15 mg IV per hour was prior 13 mg
�- Is on Gleevac 200 mg daily
�--Levalbuterol as needed, to do her eyedrops
- Hold carbidopa levodopa
#Chronic Nausea / Esophageal Dysmotility/gastroparesis
#History GJ tube
Patient's GJ tube was horizontally cut present on admission of unclear etiology
�
#Steroid-Induced DM-II
�
#Steroid-Induced Osteoporosis
#Chronic Pain Syndrome secondary to the above on chronic opiates
Hold buprenorphine, Dilaudid 8 mg as patient is intubated on IV fentanyl
��- PT / OT evaluations.
#Migraine Hx
Hold Nurtec
#Restless leg syndrome
- Hold baclofen
#History of DVT / PE
#Takes subcu Lovenox 100 mg twice daily
DVT Prophylaxis
�- Comfort care
DNR family present at at bedside Brother Miller power of securities attorney Father Abdi via phone secondary power of securities attorney both agreed to withdrawal care given patient was DNR currently saturating 50% on ventilator requiring 2 pressors 5 rounds of cardiac
arrest. Power of securities attorney scanned into the chart
Patient did have documentation of DNR with palliative care Lanny Swartz on admission August 2023 Brother was aware of this he stated to me
Given central line and G-tube was cut plus unclear exact cause of brother would want an autopsy performed I did make aware ER attending will notify the cellophane wrapping examiner
--- NOTE | 2025-04-03 17:49 | EDRN ---
"RN assumed care at 1530. Patient received post code. Family at bedside. Decision made by family for patient to be DNR and to withdraw care. Patient became increasingly bradycardiac at 1615. Family at bedside. Patient and pronounced by "Grayson"Amber at 1624. [employer] requested by family. GOL contacted. "
== END 2025-04-03 16:24 | disposition expired ==
LOC: EMR 12:28
PROVIDERS: EMERGENCY PHYSICIAN Emergency Medicine; OTHER PHYSICIAN Hospitalist
DX: I46.9 Cardiac arrest, cause unspecified (principal); A41.9 Sepsis, unspecified organism; R57.9 Shock, unspecified; J18.9 Pneumonia, unspecified organism; J96.01 Acute respiratory failure with hypoxia; E09.9 Drug or chemical induced diabetes mellitus without complications; E66.813 Obesity, class 3; E78.00 Pure hypercholesterolemia, unspecified; F11.20 Opioid dependence, uncomplicated; F13.20 Sedative, hypnotic or anxiolytic dependence, uncomplicated; G25.81 Restless legs syndrome; G47.33 Obstructive sleep apnea (adult) (pediatric); D89.40 Mast cell activation, unspecified; J45.909 Unspecified asthma, uncomplicated; K31.84 Gastroparesis; G89.4 Chronic pain syndrome; I45.10 Unspecified right bundle-branch block; Z86.718 Personal history of other venous thrombosis and embolism; Z79.01 Long term (current) use of anticoagulants; Z79.3 Long term (current) use of hormonal contraceptives; Z79.52 Long term (current) use of systemic steroids; Z79.4 Long term (current) use of insulin; Z11.52 Encounter for screening for COVID-19; R56.9 Unspecified convulsions
CPT/HCPCS: 36620; 31500; 36556; 92950; 99291; 99292; 96374; 96375; 70450; 71045; 71275; 74177; 80053; 80143; 80179; 80306; 80307; 81003; 81015; 82077; 82550; 82805; 82962; 83605; 83690; 83735; 83880; 84100; 84443; 84478; 84484; 84703; 85025; 85610; 85730; 86850; 86900; 86901; 87040; 87086; 87154; 87205; 87811; 93005; 94002; J2185; Q9967